=== PATIENT | female | born 1960 | race Caucasian/White ===

== ENCOUNTER 2017-08-31 17:31 | Emergency (ER) | payer MEDICAID, SELFPAY | END 2017-08-31 23:15 | disposition home or self-care (01) | PROVIDERS: Emergency Provider Emergency Medicine; Family Provider Internal Medicine Adolescent Medicine; Visit Provider Emergency Medicine | DX: K58.0 Irritable bowel syndrome with diarrhea (principal); M54.5 Low back pain; Z88.2 Allergy status to sulfonamides; Z88.8 Allergy status to other drugs, medicaments and biological substances; Z79.51 Long term (current) use of inhaled steroids; Z79.899 Other long term (current) drug therapy | CPT/HCPCS: 81001; 87086; 87088; 87186; 87507; 96372; 99284 ==

== ENCOUNTER → 2017-09-29 10:35 | Outpatient (POV) | payer MEDICAID, SELFPAY ==
[2017-09-29 10:51] LABS: Basophils % 0.8 % (0.1-2.0); Eosinophils # 0.2 K/mm3 (0.0-0.4); Eosinophils % 3.7 % (0.1-12.0); Hematocrit 43.1 % (37.0-47.0); Hemoglobin 13.4 g/dL (12.2-16.2); Lymphocytes # 1.5 K/mm3 (0.7-4.5); Lymphocytes % 27.9 K/mm3 (10-50); Mean Corpuscular HGB Conc 31.1 g/dL (31.8-35.4); Mean Corpuscular Hemoglobin 24.9 pg (27.0-31.2); Mean Corpuscular Volume 79.9 fl (81-99); Mean Platelet Volume 7.9 fl (7.4-10.4); Monocytes # 0.3 K/mm3 (0.1-1.0); Monocytes % 5.2 % (1.7-9.3); Neutrophils # 3.3 K/mm3 (1.8-7.8); Neutrophils % 62.4 % (37.0-80.0); Platelet Count 190 K/mm3 (142-424); Red Blood Count 5.39 M/mm3 (4.20-5.40); Red Cell Distribution Width 13.5 % (11.5-17.5); White Blood Count 5.3 K/mm3 (4.8-10.8)
[2017-09-29 11:47] LABS: Alanine Aminotransferase 23 U/L (12-78); Albumin Level 3.6 gm/dL (3.4-5.0); Albumin/Globulin Ratio 1.1 (1.1-1.8); Alkaline Phosphatase 88 U/L (46-116); Aspartate Amino Transferase 18 U/L (15-37); Bilirubin,Total 0.4 mg/dL (0.2-1.0); Blood Urea Nitrogen 23 mg/dL (7-18); Calcium 8.4 mg/dL (8.5-10.1); Carbon Dioxide 25 mmol/L (21.0-32.0); Chloride 108 mmol/L (98-107); Chol/HDL Ratio 4.4 (1-3.5); Cholesterol 204 mg/dL (140-200); Estimated Glomerular Filt Rate 126 ml/min (>60); GFR (African American) 153 ML/MIN (>60); Globulin 3.2 gm/dl (1.3-3.2); Glucose 109 mg/dL (74-106); HDL Cholesterol 46 mg/dL (29-89); LDL Cholesterol 141 mg/dL (0-130); Sodium 141 mmol/L (136-145); Thyroid Stimulating Hormone 0.75 uIU/ml (0.358-3.740); Total Protein,Serum 6.8 gm/dL (6.4-8.2); Triglycerides 84 mg/dL (30-200); VLDL Cholesterol 17 mg/dL (0-40)
[2017-09-29 14:38] VITALS: BP 117/86; PULSE 103; RESP 16; TEMP 36.7; O2SAT 96; BMI 24.5
--- NOTE | 2017-09-29 14:40 | P.CONS_ITS ---
[facility] Pain Management SOAP Note Subjective:: Patient is a pleasant 57-year-old white female who we are seeing for low back pain with lumbar radicular symptoms. At her last scheduled injection she had a UTI so we postpone her injection. She has been treated and it has now resolved. She presents to have her lumbar epidural steroid injection reschedule. She still has low back pain radiating down both legs. Most of the pain is in the back. Objective:: Alert and oriented ?3 in no acute distress. Patient does have an antalgic gait. She is tender over the lumbar spine. Motor strength of the lower extremities is 5/5. There is no gross sensory deficit. Assessment:: Degenerative disc disease of lumbar spine with lumbar radicular symptoms with previous compression fractures as kyphoplasty at T12. Plan:: We will seek approval and plan on lumbar epidural steroid injection at L4-L5.
[2017-09-30 13:37] LABS: Vitamin B12 667 pg/mL (232-1245)
== END ==
PROVIDERS: Family Provider Internal Medicine Adolescent Medicine; PCP Internal Medicine Adolescent Medicine; Visit Provider Anesthesiology
DX: M51.16 Intervertebral disc disorders with radiculopathy, lumbar region (principal)
CPT/HCPCS: 36415; 80053; 80061; 82607; 84443; 85025; 99212

== ENCOUNTER 2017-10-17 19:00 | Emergency (ER) | payer MEDICAID, SELFPAY ==
[2017-10-17 19:14] VITALS: BP 127/79; PULSE 95; RESP 18; TEMP 36.8; O2SAT 97; BMI 24.5
[2017-10-17 19:56] LABS: Microscopic, Urine URINE MICROSCOPIC (MICROSCOPIC)
[2017-10-17 19:58] LABS: Appearance,Urine CLEAR (Clear); Bilirubin,Urine Negative (Negative); Blood, Urine TRACE-L (Negative); Color,Urine YELLOW (Yellow); Glucose,Urine (UA) Negative (Negative); Ketones,Urine Negative (Negative); Leukocyte Esterase,Urine Negative (Negative); Nitrate,Urine Negative (Negative); PH,Urine 5.5 (5.0-8.5); Protein,Urine Negative (Negative); Specific Gravity, Urine >= 1.030 (1.005-1.030); Urobilinogen,Urine 0.2 EU/dl (0.2)
[2017-10-17 20:01] LABS: Amorphous Sediment,Urine Trace /lpf
[2017-10-17 20:08] LABS: Basophils % 0.5 % (0.1-2.0); Eosinophils # 0.2 K/mm3 (0.0-0.4); Eosinophils % 3.1 % (0.1-12.0); Hematocrit 43.2 % (37.0-47.0); Hemoglobin 13.5 g/dL (12.2-16.2); Lymphocytes # 1.8 K/mm3 (0.7-4.5); Lymphocytes % 31.3 K/mm3 (10-50); Mean Corpuscular HGB Conc 31.4 g/dL (31.8-35.4); Mean Corpuscular Hemoglobin 25.4 pg (27.0-31.2); Mean Corpuscular Volume 80.9 fl (81-99); Mean Platelet Volume 8.2 fl (7.4-10.4); Monocytes # 0.4 K/mm3 (0.1-1.0); Monocytes % 6.2 % (1.7-9.3); Neutrophils # 3.4 K/mm3 (1.8-7.8); Neutrophils % 58.9 % (37.0-80.0); Platelet Count 190 K/mm3 (142-424); Red Blood Count 5.33 M/mm3 (4.20-5.40); Red Cell Distribution Width 13.5 % (11.5-17.5); White Blood Count 5.7 K/mm3 (4.8-10.8)
[2017-10-17 20:20] LABS: Alanine Aminotransferase 27 U/L (12-78); Albumin Level 3.7 gm/dL (3.4-5.0); Albumin/Globulin Ratio 0.9 (1.1-1.8); Alkaline Phosphatase 99 U/L (46-116); Anion Gap 13.2 mEq/L (5-15); Aspartate Amino Transferase 15 U/L (15-37); Bilirubin,Total 0.4 mg/dL (0.2-1.0); Blood Urea Nitrogen 17 mg/dL (7-18); Calcium 8.6 mg/dL (8.5-10.1); Carbon Dioxide 27 mmol/L (21.0-32.0); Chloride 109 mmol/L (98-107); Creatinine Clearance Estimated 112 mL/min (0-300); Creatinine,Serum 0.59 mg/dL (0.55-1.02); Estimated Glomerular Filt Rate 104 ml/min (>60); GFR (African American) 126 ML/MIN (>60); Globulin 3.9 gm/dl (1.3-3.2); Glucose 99 mg/dL (74-106); Potassium 4.2 mmoL/L (3.5-5.1); Sodium 145 mmol/L (136-145); Total Protein,Serum 7.6 gm/dL (6.4-8.2)
--- NOTE | 2017-10-17 20:20 | HMH.EDNVD ---
ED Disposition Clinical Impression: Abdominal pain Qualifiers: Abdominal location: unspecified location Qualified Code(s): R10.9 - Unspecified abdominal pain Disposition: Home, Self-Care Condition on Discharge: Good Instructions: DI for Acute Abdomen Referrals: Luis Henderson MD [Primary Care Provider] - - Critical Care Critical Care Time: No Attestation: On , the high probability of a clinically significant, sudden or life threatening deterioration of the following system(s) required my full and direct attention, intervention and personal management. The time I documented below is in addition to time spent performing reported procedures but includes the following listed in this critical care notation. Medical Decision Making - Medical Records Medical records reviewed: Yes: I reviewed the patient's medical records. Vital Signs: 10/17/17 19:14 Temperature 98.2 F Temperature Source Oral Pulse Rate [Right Radial] 95 H Respiratory Rate 18 Blood Pressure [Right Arm] 127/79 Blood Pressure Mean [Right Arm] 95 Blood Pressure Source [Right Arm] Automatic Cuff Blood Pressure Position [Right Arm] Sitting 02 Sat by Pulse Oximetry 97 Oxygen Delivery Method Room Air - Lab Data Lab results reviewed: Yes: I reviewed the patient's lab results. Lab Results 10/17/17 19:50: Urine Color Yellow, Urine Appearance Clear, Urine pH 5.5, Ur Specific [place] >= 1.030, Urine Protein Negative, Urine Glucose (UA) Negative, Urine Ketones Negative, Urine Blood Trace-l, Urine Nitrate Negative, Urine Bilirubin Negative, Urine Urobilinogen 0.2, Ur Leukocyte Esterase Negative, Urine RBC 3-5, Urine WBC 3-5, Ur Squamous Epith Cells 3-5, Amorphous Sediment Trace 10/17/17 19:50: WBC 5.7, RBC 5.33, Hgb 13.5, Hct 43.2, MCV 80.9 L, MCH 25.4 L, MCHC 31.4 L, RDW 13.5, Plt Count 190, MPV 8.2, Neut % (Auto) 58.9, Lymph % (Auto) 31.3, [place] % (Auto) 6.2, Eos % (Auto) 3.1, Baso % (Auto) 0.5, Neut # (Auto) 3.4, Lymph # (Auto) 1.8, [place] # (Auto) 0.4, Eos # (Auto) 0.2, Baso # (Auto) 0.0 10/17/17 19:50: Sodium 145, Potassium 4.2, Chloride 109 H, Carbon Dioxide 27, Anion Gap 13.2, BUN 17, Creatinine 0.59, Estimated Creat Clear 112, Estimated GFR 104, Est GFR ( Amer) 126, Glucose 99, Calcium 8.6, Total Bilirubin 0.4, AST 15, ALT 27, Alkaline Phosphatase 99, Total Protein 7.6, Albumin 3.7, Globulin 3.9 H, Albumin/Globulin Ratio 0.9 L Result diagrams: 10/17/17 19:50 10/17/17 19:50 - Claus Inquiry Pt receiving controlled substance: No Nausea/Vomiting/Diarrhea HPI - General Chief complaint: Abdominal Pain Stated complaint: abd pain,back,chills Time Seen by Provider: 10/17/17 20:21 Mode of Arrival: Ambulatory Source of Information: Patient, Spouse, Medical Record Limitations: Physical Limitations Description of Symptoms (Recalled from ER Triage Doc. by RN): Pt reports for several days she has cetral abdominal pain. - History of Present Illness HPI Narrative: lower abd pain over the last 2 days with loose stool complaint: diarrhea, abdominal pain Onset (ago): day(s) Description of Vomiting: watery Associated Abdominal Pain: Yes Location of pain: periumbilical Severity: moderate - Related Data Home Medications Medication Instructions Recorded Confirmed alendronate 10 mg tablet 10 mg PO ONCE 09/13/17 10/17/17 baclofen 20 mg tablet 20 mg PO Q8H 09/13/17 10/17/17 bethanechol chloride 10 mg tablet 10 mg PO ONCE 09/13/17 10/17/17 calcium carbonate 200 mg calcium 200 mg PO TID tab 09/13/17 10/17/17 (500 mg) chewable tablet cholecalciferol (vitamin D3) 1,000 1,000 unit PO ONCE 09/13/17 10/17/17 unit capsule clotrimazole-betamethasone 1 1 applic TOPICAL BID 09/13/17 10/17/17 %-0.05 % topical cream cranberry 400 mg capsule 400 mg PO ONCE 09/13/17 10/17/17 cyanocobalamin (vit B-12) 1,000 1,000 mcg PO QDAY 09/13/17 10/17/17 mcg capsule diazepam 5 mg tablet 5 mg PO ONCE 09/13/17 10/17/17 escitalopram 20 mg tablet 10 mg PO QDA
[2017-10-17 21:26] VITALS: BP 130/70; PULSE 89; RESP 18; TEMP 36.7; O2SAT 98
== END 2017-10-17 21:26 | disposition home or self-care (01) ==
PROVIDERS: Emergency Provider Emergency Medicine; Family Provider Internal Medicine Adolescent Medicine; PCP Internal Medicine Adolescent Medicine
DX: R10.825 Periumbilic rebound abdominal tenderness (principal); Z79.899 Other long term (current) drug therapy
CPT/HCPCS: 80053; 81001; 85025; 99282

== ENCOUNTER → 2017-10-25 09:51 | Outpatient (CLI) | payer MEDICAID, SELFPAY ==
--- NOTE | 2017-10-25 09:56 | XR_ITS ---
XR acute abdomen series COMPARISON: CT scan abdomen pelvis 05/31/2017 HISTORY: Lower abdominal pain TECHNIQUE: PA chest, KUB and upright abdomen FINDINGS: The lung loya are well expanded and appear clear of infiltrate. Cardiac size is normal and the vascularity is normal. There is mild dextroscoliotic curvature of the thoracolumbar junction. There is an old compression fracture of T12 with a vertebroplasty present.. There are multilevel degenerative changes of the lumbar spine. There is slight motion artifact on the upright abdominal film. There is minimal gas in the ascending colon. There are a few mildly dilated loops of small bowel with scattered short air-fluid levels noted. Is no free air in the no abnormal soft tissue shadows. IMPRESSION: 1 nonacute chest findings. 2. Mildly abnormal nonspecific bowel gas pattern possibly secondary to mild gastroenteritis
== END ==
PROVIDERS: PCP Internal Medicine Adolescent Medicine; Visit Provider Internal Medicine Adolescent Medicine
DX: R10.32 Left lower quadrant pain (principal); R10.31 Right lower quadrant pain
CPT/HCPCS: 74021

== ENCOUNTER → 2017-10-31 14:00 | Day surgery (SDC) | payer MEDICAID, SELFPAY ==
[2017-10-31 14:37] VITALS: BP 109/75; PULSE 99; RESP 20; TEMP 36.2; O2SAT 96; BMI 23.6
[2017-10-31 15:03] VITALS: BP 155/89; PULSE 69; RESP 18
[2017-10-31 15:04] VITALS: BP 144/93; PULSE 99; RESP 18
--- NOTE | 2017-10-31 15:09 | P.PCN_ITS ---
- Procedure Date: 10/31/17 Time: 15:07 Anesthesiologist:: Aneesh Robledo MD Complications:: None Pre-procedure Diagnosis:: Degenerative disc disease of lumbar spine with lumbar radiculopathy symptoms with previous compression fracture at T12 status post kyphoplasty Post-procedure Diagnosis:: Same Indications for Procedure:: Patient is a pleasant 57-year-old white female who we are seeing for low back pain with lumbar radicular symptoms. She has had some increasing back pain with radiation down both legs. We will do a lumbar epidural steroid injection today to see if this will give her some benefit. Procedure Details:: Lumbar epidural steroid injection under fluoroscopy Informed consent was obtained and the risk and benefits of the procedure was explained to the patient. The patient was taken to the procedure room. The patient was placed prone on the procedure table. The patient was prepped and draped in sterile fashion. C-arm fluoroscopy was used to view the lumbar spine. Skin and subcutaneous tissues were anesthetized using lidocaine. I placed an 18-gauge epidural needle and advanced into the L4-L5 interspace using fluoroscopic guidance and [id number] to air. After confirmation of needle placement in the epidural space with dye I injected 2 mL of lidocaine 1.5 % with Depo-Medrol 80 mg. Patient tolerated the procedure well with no complications. Plan and Disposition:: We will follow-up with her in 2 weeks. We will reevaluate her symptoms at that time
[2017-10-31 15:13] VITALS: BP 113/84; PULSE 97; RESP 18; O2SAT 97
== END ==
PROVIDERS: Family Provider Internal Medicine Adolescent Medicine; PCP Internal Medicine Adolescent Medicine; Visit Provider Anesthesiology
DX: M51.16 Intervertebral disc disorders with radiculopathy, lumbar region (principal); Z87.311 Personal history of (healed) other pathological fracture
CPT/HCPCS: 62323; J1040; Q9966

== ENCOUNTER → 2017-11-18 13:06 | Outpatient (POV) | payer MEDICAID, SELFPAY ==
[2017-11-18 13:25] VITALS: BP 136/89; PULSE 99; RESP 20; O2SAT 96; BMI 24.2
--- NOTE | 2017-11-18 14:08 | HMH.PAINSOAP ---
[facility] Pain Management SOAP Note Subjective:: Patient is a pleasant 57-year-old white female who presents today after a lumbar epidural steroid injection. Patient has had a kyphoplasty in the past. Patient rates her pain a 2 out of 10 today. She states that her back pain has pretty much been alleviated. Patient is also taking tramadol 50 mg 1 p.o. twice daily. States the medicine helps but does not last long enough. Patient denies any side effects from the medication. Patient states that it does help with 70% one taken. Patient is also having increased knee pain. Patient is interested in having injections in the future. Patient is currently getting over bronchitis. ROS General: no recent weight change, no fever, no sleep disturbances Respiratory: Cough Cardiovascular/Peripheral Vascular: No chest pain, No palpitations, no edema, no shortness of breath. Gastrointestinal: no new onset incontinence, normal bowel movements reported Genitourinary: no new onset incontinence Musculoskeletal: Knee pain, back pain Psychiatric: normal mood/ affect, Neurological: [denies weakness in extremities], [denies balance issues] Objective:: Physical Exam General: Alert and oriented x3, no acute distress, pleasant and cooperative, [on room air] Lungs: Resps E/U, Symmetrical chest expansion, Eyes: PERRL Musculoskeletal: Flexion and extension of lumbar spine somewhat guarded secondary to pain, deep tendon reflexes normal, strength in upper and lower extremities [5/5], [abnormal gait noted] Neurological: speech clear, administrative associate equal, no gross sensory deficits Assessment:: Degenerative disc disease of the lumbar spine, lumbar radiculopathy, status post T12 kyphoplasty, left knee osteoarthritis Plan:: We will follow-up with this patient as needed. Patient is interested in potentially having left knee injections in the future. We will also refill her tramadol 50 mg and we will increase it to 3 times daily. Patient's ROWENA #[id number] reviewed and appropriate. Follow-up with this patient as needed. This note was dictated using voice-recognition software and may contain errors or omissions
--- NOTE | 2017-11-18 14:13 | P.CONS_ITS ---
[facility] Pain Management SOAP Note Subjective:: Patient is a pleasant 57-year-old white female who presents today after a lumbar epidural steroid injection. Patient has had a kyphoplasty in the past. Patient rates her pain a 2 out of 10 today. She states that her back pain has pretty much been alleviated. Patient is also taking tramadol 50 mg 1 p.o. twice daily. States the medicine helps but does not last long enough. Patient denies any side effects from the medication. Patient states that it does help with 70% one taken. Patient is also having increased knee pain. Patient is interested in having injections in the future. Patient is currently getting over bronchitis. ROS General: no recent weight change, no fever, no sleep disturbances Respiratory: Cough Cardiovascular/Peripheral Vascular: No chest pain, No palpitations, no edema, no shortness of breath. Gastrointestinal: no new onset incontinence, normal bowel movements reported Genitourinary: no new onset incontinence Musculoskeletal: Knee pain, back pain Psychiatric: normal mood/ affect, Neurological: [denies weakness in extremities], [denies balance issues] Objective:: Physical Exam General: Alert and oriented x3, no acute distress, pleasant and cooperative, [ on room air] Lungs: Resps E/U, Symmetrical chest expansion, Eyes: PERRL Musculoskeletal: Flexion and extension of lumbar spine somewhat guarded secondary to pain, deep tendon reflexes normal, strength in upper and lower extremities [5/5], [abnormal gait noted] Neurological: speech clear, 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 Patient is interested in potentially having left knee injections in the future. We will also refill her tramadol 50 mg and we will increase it to 3 times daily. Patient's ROWENA # [id number] reviewed and appropriate. Follow-up with this patient as needed. This note was dictated using voice-recognition software and may contain errors or omissions
--- NOTE | 2017-11-20 14:06 | PC.PHONENOTE ---
11/18/17-called in Rx forTramadol 50mg TID with 2 refills to [facility] in [place]
== END ==
PROVIDERS: Family Provider Internal Medicine Adolescent Medicine; PCP Internal Medicine Adolescent Medicine; Visit Provider Clinical Nurse Specialist Family Health
DX: M54.16 Radiculopathy, lumbar region (principal); M17.12 Unilateral primary osteoarthritis, left knee
CPT/HCPCS: 99212

== ENCOUNTER 2017-11-25 18:22 | Emergency (ER) | payer MEDICAID, SELFPAY ==
[2017-11-25 19:38] VITALS: BP 140/94; PULSE 102; RESP 20; TEMP 37.4; O2SAT 96; BMI 24.2
[2017-11-25 20:02] LABS: Apearance,Urine Clear (Clear); Bilirubin,Urine Negative (Negative); Blood, Urine Negative (Negative); Color,Urine Yellow (Yellow); Glucose,Urine (UA) Negative (Negative); Ketones,Urine Negative (Negative); PH,Urine 5.5 (5.0-8.5); Protein,Urine Negative (Negative); Specific Gravity, Urine 1.025 (1.005-1.030)
[2017-11-25 20:03] LABS: UTC Leukocyte Esterase,Urine Trace (Negative); UTC Nitrate,Urine Negative (Negative); Urobilinogen,Urine 0.2 EU/dl (0.2)
--- NOTE | 2017-11-25 20:37 | HMH.EDUTC ---
[facility] [place]: Intermittent self-catheterization of bladder, Viral illness Disposition: Home, Self-Care Condition on Discharge: Good Instructions: DI for Viral Syndrome, Urine Culture Additional Instructions: * No sign of bacterial infection. You seem to be improving but takes time to completely resolve. * Monitor Temp. Follow up if fever develops * Encourage fluids, water, gatorade, powerade, pedialyte if infant/toddler/child * sleep elevated * humidifier/vaporizer * heating pad to left neck as needed * Urine sent for urine culture. Follow up with Dr. Henderson on Friday. Report in [facility] and need to follow up on urine culture results. If bacteria present, will need antibiotic. * Seek treatment immediately for new or worsening symptoms Referrals: Luis Henderson MD [Primary Care Provider] - (Call tomorrow. Schedule follow up for Friday to review Urine culture results. Return sooner for new or worsening symptoms) Time of Disposition: 20:53 Medical Decision Making - Claus Inquiry Pt receiving controlled substance: No Vital Signs: 11/25/17 19:38 Temperature 99.4 F Temperature Source Oral Pulse Rate [Right Radial] 102 H Respiratory Rate 20 Blood Pressure [Right Arm] 140/94 Blood Pressure Mean [Right Arm] 109 02 Sat by Pulse Oximetry 96 Oxygen Delivery Method Room Air - Lab Data Lab results reviewed: Yes: I reviewed the patient's lab results. Lab Results 11/25/17 18:48: Urine Color Yellow, Urine Appearance Clear, Urine pH 5.5, Ur Specific [place] 1.025, Urine Protein Negative, Urine Glucose (UA) Negative, Urine Ketones Negative, Urine Blood Negative, Urine Nitrate Negative, Urine Bilirubin Negative, Urine Urobilinogen 0.2, Ur Leukocyte Esterase Trace Orders (Tests/Meds): ORDERS Category Date Time Status Urine Culture Stat Micro 11/25/17 20:05 [place] [facility] [place] - General Stated complaint: Pain in left side of neck/Possible UTI Time Seen by Provider: 11/25/17 20:38 Mode of Arrival: Family Vehicle Source of Information: Patient Limitations: No Limitations Description of Symptoms (Recalled from Triage Doc. by RN): PT C/O POSSIBLE UTI AND FLU LIKE SYMPTOMS. HEENT Symptoms (Recalled from RN notes): Yes (FLU LIKE) Resp Symptoms (Recalled from RN notes): Yes (FLU LIKE) Skin Symptoms (Recalled from RN notes): No MS Symptoms (Recalled from RN notes): No Functional Status (Recalled from RN notes): NA - History of Present Illness Provider Complaint: c/o having had bronchitis. Finished medications but still has rhinorrhea and left neck gland tender at times. Not consistently. Neck gland noticeable with palpation. No fevers or aches any longer. Cough improved. While here, wants to rule out UTI because I get them all the time . Denies symptoms. Hx of CP requiring I/O cath BID. - Related Data Home Medications Medication Instructions Recorded Confirmed alendronate 10 mg tablet 10 mg PO ONCE 09/13/17 10/17/17 baclofen 20 mg tablet 20 mg PO Q8H 09/13/17 10/17/17 bethanechol chloride 10 mg tablet 10 mg PO ONCE 09/13/17 10/17/17 calcium carbonate 200 mg calcium 200 mg PO TID tab 09/13/17 10/17/17 (500 mg) chewable tablet cholecalciferol (vitamin D3) 1,000 1,000 unit PO ONCE 09/13/17 10/17/17 unit capsule clotrimazole-betamethasone 1 1 applic TOPICAL BID 09/13/17 10/17/17 %-0.05 % topical cream cranberry 400 mg capsule 400 mg PO ONCE 09/13/17 10/17/17 cyanocobalamin (vit B-12) 1,000 1,000 mcg PO QDAY 09/13/17 10/17/17 mcg capsule diazepam 5 mg tablet 5 mg PO ONCE 09/13/17 10/17/17 escitalopram 20 mg tablet 10 mg PO QDAY 09/13/17 10/17/17 estradiol 0.0375 mg/24 hr 1 patch TRANSDERMA ONCE 09/13/17 10/17/17 semiweekly transdermal patch fluticasone 50 mcg/actuation nasal 50 mcg INTRANASAL ONCE 09/13/17 10/17/17 spray,suspension folic acid 1 mg tablet 1 mg PO QDAY 09/13/17 10/17/17 gabapentin 600 mg tablet 600 mg PO TID 09/13/17 10/17/17 hydroxychloroquine 200 m
--- NOTE | 2017-11-25 20:42 | ED_ITS ---
[facility] [place] Clinical Impression: Intermittent self-catheterization of bladder, Viral illness Disposition: Home, Self-Care Condition on Discharge: Good Instructions: DI for Viral Syndrome, Urine Culture Additional Instructions: * No sign of bacterial infection. You seem to be improving but takes time to completely resolve. * Monitor Temp. Follow up if fever develops * Encourage fluids, water, gatorade, powerade, pedialyte if infant/toddler/ child * sleep elevated * humidifier/vaporizer * heating pad to left neck as needed * Urine sent for urine culture. Follow up with Dr. Henderson on Friday. Report in [facility] and need to follow up on urine culture results. If bacteria present, will need antibiotic. * Seek treatment immediately for new or worsening symptoms Referrals: Luis Henderson MD [Primary Care Provider] - (Call tomorrow. Schedule follow up for Friday to review Urine culture results. Return sooner for new or worsening symptoms) Time of Disposition: 20:53 Medical Decision Making - Claus Inquiry Pt receiving controlled substance: No Vital Signs: 11/25/17 19:38 Temperature 99.4 F Temperature Source Oral Pulse Rate [Right Radial] 102 H Respiratory Rate 20 Blood Pressure [Right Arm] 140/94 Blood Pressure Mean [Right Arm] 109 02 Sat by Pulse Oximetry 96 Oxygen Delivery Method Room Air - Lab Data Lab results reviewed: Yes: I reviewed the patient's lab results. Lab Results 11/25/17 18:48: Urine Color Yellow, Urine Appearance Clear, Urine pH 5.5, Ur Specific [place] 1.025, Urine Protein Negative, Urine Glucose (UA) Negative, Urine Ketones Negative, Urine Blood Negative, Urine Nitrate Negative, Urine Bilirubin Negative, Urine Urobilinogen 0.2, Ur Leukocyte Esterase Trace Orders (Tests/Meds): ORDERS Category Date Time Status Urine Culture Stat Micro 11/25/17 20:05 Received [facility] [place]PI - General Stated complaint: Pain in left side of neck/Possible UTI Time Seen by Provider: 11/25/17 20:38 Mode of Arrival: Family Vehicle Source of Information: Patient Limitations: No Limitations Description of Symptoms (Recalled from Triage Doc. by RN): PT C/O POSSIBLE UTI AND FLU LIKE SYMPTOMS. HEENT Symptoms (Recalled from RN notes): Yes (FLU LIKE) Resp Symptoms (Recalled from RN notes): Yes (FLU LIKE) Skin Symptoms (Recalled from RN notes): No MS Symptoms (Recalled from RN notes): No Functional Status (Recalled from RN notes): NA - History of Present Illness Provider Complaint: c/o having had bronchitis. Finished medications but still has rhinorrhea and left neck gland tender at times. Not consistently. Neck gland noticeable with palpation. No fevers or aches any longer. Cough improved. While here, wants to rule out UTI because I get them all the time . Denies symptoms. Hx of CP requiring I/O cath BID. - Related Data Home Medications Medication Instructions Recorded Confirmed alendronate 10 mg tablet 10 mg PO ONCE 09/13/17 10/17/17 baclofen 20 mg tablet 20 mg PO Q8H 09/13/17 10/17/17 bethanechol chloride 10 mg tablet 10 mg PO ONCE 09/13/17 10/17/17 calcium carbonate 200 mg calcium 200 mg PO TID tab 09/13/17 10/17/17 (500 mg) chewable tablet cholecalciferol (vitamin D3) 1,000 1,000 unit PO ONCE 09/13/17 10/17/17 unit capsule clotrimazole-betamethasone 1 1 applic TOPICAL BID 09/13/17 10/17/17 %-0.05 % topical cream
[2017-11-25 20:54] VITALS: BP 132/69; PULSE 95; RESP 18; TEMP 37.3; O2SAT 97
[2017-11-28 10:35] LABS: UTC Influenza A Antigen Negative (Negative); UTC Influenza B Antigen Negative (Negative)
[2017-11-28 10:53] LABS: Apearance,Urine Clear (Clear); Color,Urine Yellow (Yellow); PH,Urine 5.5 (5.0-8.5)
[2017-11-28 10:54] LABS: Blood, Urine Negative (Negative); Glucose,Urine (UA) Negative (Negative); Ketones,Urine Negative (Negative); Protein,Urine Negative (Negative); Specific Gravity, Urine 1.025 (1.005-1.030)
[2017-11-28 10:55] LABS: Bilirubin,Urine Negative (Negative); UTC Leukocyte Esterase,Urine 1+ (Negative); UTC Nitrate,Urine Negative (Negative); Urobilinogen,Urine 0.2 EU/dl (0.2)
== END 2017-11-25 20:54 | disposition home or self-care (01) ==
PROVIDERS: Emergency Provider Nurse Practitioner Family; Family Provider Internal Medicine Adolescent Medicine; PCP Internal Medicine Adolescent Medicine
DX: B34.9 Viral infection, unspecified (principal); Z78.9 Other specified health status; K21.9 Gastro-esophageal reflux disease without esophagitis; Z79.899 Other long term (current) drug therapy; F32.9 Major depressive disorder, single episode, unspecified; Z88.2 Allergy status to sulfonamides; Z88.8 Allergy status to other drugs, medicaments and biological substances
CPT/HCPCS: 81003; 87086; 87804; 99202

== ENCOUNTER → 2017-12-17 16:03 | Outpatient (REF) | payer MEDICAID, SELFPAY ==
[2017-12-17 16:07] LABS: Adenovirus F 40/41, stool Not Detected (NotDetected); Astrovirus Not Detected (NotDetected); Campylobacter Not Detected (NotDetected); Clostridium Difficile A/B, PCR Not Detected (NotDetected); Cryptosporidium Not Detected (NotDetected); Cyclospora Cayetanesis Not Detected (NotDetected); Entamoeba histolytica Not Detected (NotDetected); Enteroaggregative E coli Not Detected (NotDetected); Enteropathogenic E coli Not Detected (NotDetected); Enterotoxigenic E coli Not Detected (NotDetected); Giardia lamblia Not Detected (NotDetected); Norovirus Not Detected (NotDetected); Plesimonas Shigalloides, PCR Not Detected (NotDetected); Rotavirus A Not Detected (NotDetected); Salmonella, PCR Not Detected (NotDetected); Sapovirus Not Detected (NotDetected); Shiga-like toxin E coli Not Detected (NotDetected); Shigella Enterovasive E coli Not Detected (NotDetected); Vibrio Cholerae Not Detected (NotDetected); Vibrio, PCR Not Detected (NotDetected); Yersinia Entercolitica, PCR Not Detected (NotDetected)
== END ==
LOC: LAB 16:03
PROVIDERS: Visit Provider Emergency Medicine
DX: R19.7 Diarrhea, unspecified (principal)
CPT/HCPCS: 87507

== ENCOUNTER 2017-12-19 14:00 | Outpatient (RCR) | payer MEDICAID, SELFPAY ==
--- NOTE | 2017-12-01 10:02 | HMH.PTOPEV ---
Rehab Outpatient Evaluation Rehab OP Evaluation Start: 12/01/17 09:46 Freq: Status: Active Protocol: Document 12/01/17 09:47 JULIA (Rec: 12/01/17 10:01 JULIA [id number]) Electronically Signed By Aj Aguilar PT 12/01/17 09:47 Outpatient Therapy Subjective History Subjective History THis is the initial Physical THerapy evaluation for Meme Carey. Pt is a 57 y/o female referred to PT for c/o B hip L>R. Pt reports pain in B SIJ and L greater trochanter. Pt also reports L bicep pain. Pt reports pain for long time 2nd to altered gait from CP. Chief Complaint Pain Spasms Stiff Symptom Type Ache Throb Sharp Symptoms Relieved By Nothing Symptoms Aggravated By Standing Physical Activity Walking Current Functional Limitations Housework Standing Recreation Activity Walking Stairs Symptom Description Constant but Variable Level of pain today (0-10) 5 Pain scale - at its best (0-10) 3 Pain scale - at its worst (0-10) 8 Lumbopelvic Eval Assistive device Assistive Devices None / NA Gait Observation General Gait Pattern Observation Ataxic Gait Shuffling Step Palapation tenderness bilateral thoracic spinal tenderness No lumbar spinal tenderness Yes paraspinal tenderness Yes buttock tenderness Yes Lumbar/Sacral Palpation Findings Tenderness Lumbar/Sacral Palpation Overall Comment TTP 3/4 B SIJ Range of Motion Lumbar Spine ROM Limitations Pain Lumbar Spine ROM Reason Not Measured Within Functional Limits Manual Muscle Test Bilateral Knee Extension Strength Grade 4 Good Knee Flexion Strength Grade 4 Good Hip Abduction Strength Grade 4 Good Hip Adduction Strength Grade 4 Good Special Tests Lumbar Spine Screen Positive Sacroiliac Joint Compression Test Positive Left Positive Right Sacroiliac Joint Distraction Test Positive Left Positive Right Hip/Knee Eval Palpation Tenderness left Hip Palpation Findings Tenderness Outpatient Therapy Assessment Impairments Problems/Impairmments Palpati
== END 2017-12-19 14:01 | disposition home or self-care (01) ==
LOC: PT 14:00
PROVIDERS: Family Provider Internal Medicine Adolescent Medicine; PCP Internal Medicine Adolescent Medicine; Visit Provider Internal Medicine Adolescent Medicine
DX: G80.9 Cerebral palsy, unspecified (principal); R26.9 Unspecified abnormalities of gait and mobility; M62.81 Muscle weakness (generalized)
CPT/HCPCS: 97010; 97033; 97035; 97110

== ENCOUNTER → 2018-01-08 11:03 | Outpatient (CLI) | payer MEDICAID, SELFPAY ==
[2018-01-08 11:31] LABS: Basophils % 0.7 % (0.1-2.0); Eosinophils # 0.1 K/mm3 (0.0-0.4); Eosinophils % 2.5 % (0.1-12.0); Hematocrit 41.4 % (37.0-47.0); Hemoglobin 13.1 g/dL (12.2-16.2); Lymphocytes # 1.5 K/mm3 (0.7-4.5); Lymphocytes % 27.3 K/mm3 (10-50); Mean Corpuscular HGB Conc 31.7 g/dL (31.8-35.4); Mean Corpuscular Hemoglobin 25.3 pg (27.0-31.2); Mean Platelet Volume 7.7 fl (7.4-10.4); Monocytes # 0.3 K/mm3 (0.1-1.0); Monocytes % 6.3 % (1.7-9.3); Neutrophils # 3.4 K/mm3 (1.8-7.8); Neutrophils % 63.2 % (37.0-80.0); Platelet Count 179 K/mm3 (142-424); Red Blood Count 5.17 M/mm3 (4.20-5.40); Red Cell Distribution Width 14.6 % (11.5-17.5); White Blood Count 5.3 K/mm3 (4.8-10.8)
[2018-01-08 12:33] LABS: Alanine Aminotransferase 22 U/L (12-78); Albumin Level 3.6 gm/dL (3.4-5.0); Albumin/Globulin Ratio 1.1 (1.1-1.8); Alkaline Phosphatase 85 U/L (46-116); Anion Gap 12.8 mEq/L (5-15); Aspartate Amino Transferase 17 U/L (15-37); Bilirubin,Total 0.3 mg/dL (0.2-1.0); Blood Urea Nitrogen 18 mg/dL (7-18); Calcium 9.3 mg/dL (8.5-10.1); Carbon Dioxide 28 mmol/L (21.0-32.0); Chloride 108 mmol/L (98-107); Creatinine,Serum 0.58 mg/dL (0.55-1.02); Estimated Glomerular Filt Rate 106 ml/min (>60); GFR (African American) 129 ML/MIN (>60); Globulin 3.3 gm/dl (1.3-3.2); Glucose 106 mg/dL (74-106); Potassium 4.8 mmoL/L (3.5-5.1); Sodium 144 mmol/L (136-145); Total Protein,Serum 6.9 gm/dL (6.4-8.2)
== END ==
PROVIDERS: Visit Provider Surgery
DX: Z01.818 Encounter for other preprocedural examination (principal); R10.13 Epigastric pain; R19.8 Other specified symptoms and signs involving the digestive system and abdomen
CPT/HCPCS: 36415; 80053; 85025; 93005

== ENCOUNTER → 2018-02-18 09:39 | Outpatient (CLI) | payer MEDICAID, SELFPAY ==
--- NOTE | 2018-02-18 09:40 | NM_ITS ---
NM gastric emptying study CLINICAL INDICATION: ITS.REASON: Epigastric pain,abdominal fullness ORDERING PHYSICIAN: Vivek Velazquez MD PATIENT AGE: 57 years Comparison: None DOSE: 0.49 mCi technetium sulfur colloid mixed with meal FINDINGS: Time activity curve is generated. One half emptying time is normal at 69 minutes. 71% of gastric contents had emptied at 80 minutes. Images show no obvious reflux. IMPRESSION: Normal gastric emptying time
== END ==
PROVIDERS: Family Provider Internal Medicine Adolescent Medicine; PCP Internal Medicine Adolescent Medicine; Visit Provider Surgery
DX: R10.13 Epigastric pain (principal); R14.0 Abdominal distension (gaseous)
CPT/HCPCS: 78264; A9541

== ENCOUNTER → 2018-02-23 10:50 | Outpatient (CLI) | payer MEDICAID, SELFPAY ==
--- NOTE | 2018-02-23 10:52 | FL_ITS ---
FL upper GI small bowel HISTORY: ITS.REASON: epigastric pain,abdominal fullness ORDERING PHYSICIAN: Vivek Velazquez MD PATIENT AGE: 57 years Comparison: None FINDINGS: Upper GI performed with air contrast technique. Interviewing Clerk exam shows prior kyphoplasty at T12. The esophagus, stomach, and duodenum have an unremarkable appearance. There is no evidence of hiatal hernia. No ulcer or mass evident. No mucosal abnormalities apparent. There is normal peristalsis. The duodenal C-loop is nondisplaced. The small bowel has an unremarkable appearance. No evidence of intestinal obstruction, masses, mucosal thickening FLUOROSCOPY TIME : 45 seconds. IMPRESSION: Negative upper GI and negative small bowel follow-through
== END ==
PROVIDERS: Family Provider Internal Medicine Adolescent Medicine; PCP Internal Medicine Adolescent Medicine; Visit Provider Surgery
DX: R13.10 Dysphagia, unspecified (principal); K31.84 Gastroparesis
CPT/HCPCS: 74245

== ENCOUNTER → 2018-03-31 10:43 | Outpatient (POV) | payer MEDICAID, SELFPAY ==
[2018-03-31 11:29] VITALS: BP 107/47; PULSE 83; RESP 18; O2SAT 98; BMI 23.7
--- NOTE | 2018-03-31 11:43 | P.CONS_ITS ---
[facility] Pain Management SOAP Note Subjective:: Patient is a pleasant 57-year-old white female who presents today for increased pain in her left lower buttock. Patient rates her pain an 8 out of 10 today. Patient states that this began several days ago. Patient states she started on meloxicam however that has not helped with her pain. Patient is wanting an injection. Patient has done well with injection therapy in the past. Patient was on tramadol however she stated that her primary care physician took her off of this. ROS General: no recent weight change, no fever, no sleep disturbances Cardiovascular/Peripheral Vascular: No chest pain, No palpitations, no edema, no shortness of breath. Gastrointestinal: no new onset incontinence, normal bowel movements reported Genitourinary: no new onset incontinence Musculoskeletal: Left piriformis pain Psychiatric: normal mood/ affect, Neurological: [denies weakness in extremities], [denies balance issues] Objective:: Physical Exam General: Alert and oriented x3, no acute distress, pleasant and cooperative, [ on room air] Lungs: Resps E/U, Symmetrical chest expansion, Eyes: PERRL Musculoskeletal: Flexion and extension of lumbar spine somewhat guarded secondary to pain, deep tendon reflexes normal, strength in upper and lower extremities [5/5], [abnormal gait noted] extreme point tenderness over left piriformis muscle Neurological: speech clear, retort operator equal, no gross sensory deficits Assessment:: Piriformis syndrome Plan:: We will schedule left piriformis injection for the patient as soon as possible. Patient not taking tramadol anymore because she states that her primary care physician took her off of this. Patient has had injections in the past with good relief. I will follow-up with the patient after her injection. This note was dictated using voice recognition software and may contain errors or omissions
== END ==
PROVIDERS: Family Provider Internal Medicine Adolescent Medicine; PCP Internal Medicine Adolescent Medicine; Visit Provider Clinical Nurse Specialist Family Health
DX: G57.00 Lesion of sciatic nerve, unspecified lower limb (principal)
CPT/HCPCS: 99212

== ENCOUNTER → 2018-04-27 13:05 | Outpatient (POV) | payer MEDICAID, SELFPAY ==
[2018-04-27 13:11] VITALS: BP 130/79; PULSE 110; RESP 18; O2SAT 98; BMI 23.8
--- NOTE | 2018-04-27 13:15 | HMH.PAINSOAP ---
[facility] Pain Management SOAP Note Subjective:: Patient is a pleasant 57-year-old white female who presents today for follow-up after left SI joint nerve block and piriformis muscle injection. Patient is not doing well today. Patient has had an increase in her low back pain. Patient is having increased weakness in her leg. Patient was put on tramadol and she states this is not helping. Patient does not have a recent MRI. Patient has had a compression fracture in the past. I believe a new MRI may be beneficial. Patient is also asking for something to help with her muscle spasms. Patient rates her pain a 9 out of 10 ROS General: no recent weight change, no fever, no sleep disturbances Respiratory: no cough, no shortness of air, no recurring pulmonary infections Cardiovascular/Peripheral Vascular: No chest pain, No palpitations, no edema, no shortness of breath. Gastrointestinal: no incontinence, normal bowel movements reported Genitourinary: Self-catheterization Musculoskeletal: Back pain Psychiatric: normal mood/ affect, Neurological: Weakness in bilateral lower extremities, [denies balance issues] Objective:: Physical Exam General: Alert and oriented x3, no acute distress, pleasant and cooperative, [on room air] Lungs: Resps E/U, Symmetrical chest expansion Eyes: PERRL Musculoskeletal: Flexion and extension of lumbar spine somewhat guarded secondary to pain, deep tendon reflexes normal, strength in upper and lower extremities [5/5], [abnormal gait noted] Neurological: speech clear, 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 We will also Flexeril 10 mg 1 p.o. 3 times daily as needed for the patient. I will follow-up with the patient after her MRI. This note was dictated using voice recognition software and may contain errors or omissions
== END ==
PROVIDERS: Family Provider Internal Medicine Adolescent Medicine; PCP Internal Medicine Adolescent Medicine; Visit Provider Clinical Nurse Specialist Family Health
DX: M51.16 Intervertebral disc disorders with radiculopathy, lumbar region (principal); M46.1 Sacroiliitis, not elsewhere classified
CPT/HCPCS: 99213

== ENCOUNTER → 2018-05-07 12:50 | Outpatient (CLI) | payer MEDICAID, SELFPAY ==
--- NOTE | 2018-05-07 12:52 | MR_ITS ---
MR lumbar spine wo con, MR 3-d myelogram/MRCP HISTORY: LBP with bilateral hip pain. Intermittent LT leg pain. Symptoms X1YR since fall and had Kyphoplasty. Weakness in legs and hips. ITS.REASON: WORSENING BACK PAIN ORDERING PHYSICIAN: Aneesh Robledo MD PATIENT AGE: 57 years Comparison: 12-12-16 TECHNIQUE: Standard multiplanar multiecho sequences are performed without contrast. 3-D MIP and myelographic images are also rendered and reviewed FINDINGS: There is straightening of the lumbar lordosis. The spinal cord ends at the L1 level. Old compression changes involve the T12 vertebral body with retropulsion of the posterior inferior aspect of T12 with mild left lateral recess narrowing and mild left foraminal narrowing with bulging disc. The canal measures 13 mm. No canal stenosis. Prior Kyphoplasty at T12 L1-L2: Old compression changes of the L2 vertebral body with mild retropulsion of the posterior superior aspect with mild right lateral recess narrowing with bulging disc. The canal measures 12 mm. No canal stenosis. L2-L3: Unremarkable. L3-L4: Degenerative disc disease with bulging disc slightly eccentric toward the right with mild right-sided foraminal narrowing. L4-L5: Degenerative disc disease with bulging disc and mild facet and ligamentum flavum hypertrophy with mild bilateral foraminal narrowing. L5-S1: Degenerative disc disease with bulging disc and facet and ligamentum flavum hypertrophy with bilateral foraminal narrowing No disc herniation or canal stenosis apparent. No significant change. IMPRESSION: 1. Multilevel lumbar spondylosis with multilevel degenerative disc disease bulging disc and facet and ligamentum flavum hypertrophy with lateral recess and foraminal narrowing as described above. Please see above for detailed description at each level. No significant change 2. Old compression fractures of T12 and L2 with retropulsion not significantly changed. No cord compression. Prior kyphoplasty at T12 3. No disc herniation or canal stenosis
== END ==
PROVIDERS: Family Provider Internal Medicine Adolescent Medicine; PCP Internal Medicine Adolescent Medicine; Visit Provider Anesthesiology
DX: M54.5 Low back pain (principal)
CPT/HCPCS: 72148; 76376

== ENCOUNTER → 2018-05-18 11:03 | Outpatient (POV) | payer MEDICAID, SELFPAY ==
[2018-05-18 11:25] VITALS: BP 147/87; PULSE 86; RESP 18; O2SAT 98; BMI 23.7
--- NOTE | 2018-05-18 11:32 | HMH.PAINSOAP ---
[facility] Pain Management SOAP Note Subjective:: Is a pleasant 57-year-old white female who presents today for follow-up after MRI. Patient is having increased lower back pain. Patient has had a kyphoplasty in the past and we wanted to rule out a new compression fracture. Patient rates her pain today a 7 out of 10. Patient has been taking tramadol and Flexeril and has been doing well on this. Patient's MRI does show degenerative disc disease along with bulging disks and facet issues. Patient also has lumbar spondylosis. Patient wanted to discuss laser spine surgery I discussed with her the closest I was aware of was in the [facility] and she stated she wanted to try injections prior to making appointment. ROS General: no recent weight change, no fever, no sleep disturbances Respiratory: no cough, no shortness of air, no recurring pulmonary infections Cardiovascular/Peripheral Vascular: No chest pain, No palpitations, no edema, no shortness of breath. Gastrointestinal: no incontinence, normal bowel movements reported Genitourinary: no incontinence Musculoskeletal: Back pain, leg pain bilaterally Psychiatric: normal mood/ affect Neurological: [denies weakness in extremities], [denies balance issues] Objective:: Physical Exam General: Alert and oriented x3, no acute distress, pleasant and cooperative, [on room air] Lungs: Resps E/U, Symmetrical chest expansion, Eyes: PERRL Musculoskeletal: Flexion and extension of lumbar spine somewhat guarded secondary to pain, deep tendon reflexes normal, strength in upper and lower extremities [5/5], [abnormal gait noted] Neurological: speech clear, 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 Patient is in physical therapy in the past. Patient is not on any anticoagulation therapy. I will follow-up the patient after her injection. This note was dictated using voice recognition software and may contain errors or omissions
--- NOTE | 2018-05-18 11:35 | P.CONS_ITS ---
[facility] Pain Management SOAP Note Subjective:: Is a pleasant 57-year-old white female who presents today for follow-up after MRI. Patient is having increased lower back pain. Patient has had a kyphoplasty in the past and we wanted to rule out a new compression fracture. Patient rates her pain today a 7 out of 10. Patient has been taking tramadol and Flexeril and has been doing well on this. Patient's MRI does show degenerative disc disease along with bulging disks and facet issues. Patient also has lumbar spondylosis. Patient wanted to discuss laser spine surgery I discussed with her the closest I was aware of was in the [place] and she stated she wanted to try injections prior to making appointment. ROS General: no recent weight change, no fever, no sleep disturbances Respiratory: no cough, no shortness of air, no recurring pulmonary infections Cardiovascular/Peripheral Vascular: No chest pain, No palpitations, no edema, no shortness of breath. Gastrointestinal: no incontinence, normal bowel movements reported Genitourinary: no incontinence Musculoskeletal: Back pain, leg pain bilaterally Psychiatric: normal mood/ affect Neurological: [denies weakness in extremities], [denies balance issues] Objective:: Physical Exam General: Alert and oriented x3, no acute distress, pleasant and cooperative, [on room air] Lungs: Resps E/U, Symmetrical chest expansion, Eyes: PERRL Musculoskeletal: Flexion and extension of lumbar spine somewhat guarded secondary to pain, deep tendon reflexes normal, strength in upper and lower extremities [5/5], [abnormal gait noted] Neurological: speech clear, cathode builder equal, no gross sensory deficits Assessment:: Degenerative disc disease lumbar spine, bulging disc, lumbar radiculopathy Plan:: We will plan a L4-L5 lumbar epidural steroid injection for the patient. Patient is in physical therapy in the past. Patient is not on any anticoagulation therapy. I will follow-up the patient after her injection. This note was dictated using voice recognition software and may contain errors or omissions
== END ==
PROVIDERS: Family Provider Internal Medicine Adolescent Medicine; PCP Internal Medicine Adolescent Medicine; Visit Provider Clinical Nurse Specialist Family Health
DX: M51.16 Intervertebral disc disorders with radiculopathy, lumbar region (principal); Z87.39 Personal history of other diseases of the musculoskeletal system and connective tissue
CPT/HCPCS: 99213

== ENCOUNTER → 2018-06-12 14:48 | Outpatient (CLI) | payer MEDICAID, SELFPAY ==
--- NOTE | 2018-06-12 14:45 | US_ITS ---
US kidney retroperitoneal comp HISTORY: ITS.REASON: RECURRENT UTI ORDERING PHYSICIAN: Dian Tovar PATIENT AGE: 58 years Comparison: None FINDINGS: RIGHT KIDNEY:Unremarkable. Normal size and echogenicity. No hydronephrosis 10 x 4 x 6 cm LEFT KIDNEY:Unremarkable. No hydronephrosis. Normal size and echogenicity. 11 x 5 x 7 cm OTHER FINDINGS: Bilateral blood flow noted IMPRESSION: Unremarkable bilateral renal ultrasound
== END ==
PROVIDERS: Family Provider Internal Medicine Adolescent Medicine; PCP Internal Medicine Adolescent Medicine; Visit Provider Urology
DX: N39.0 Urinary tract infection, site not specified (principal)
CPT/HCPCS: 76770

== ENCOUNTER → 2018-07-06 10:39 | Outpatient (POV) | payer MEDICAID, SELFPAY ==
[2018-07-06 10:53] VITALS: BP 125/75; PULSE 76; RESP 18; O2SAT 97; BMI 23.3
--- NOTE | 2018-07-06 12:02 | P.CONS_ITS ---
[facility] Pain Management SOAP Note Subjective:: Patient is a pleasant 58 white female who presents today for follow-up after lumbar epidural steroid injection. Patient is doing very well. Patient states the pain is a 2 out of 10. Patient states she has a sinus infection and will be seeing her primary care physician today. Also needs refills on her tramadol and Flexeril. She denies side effects to these medications. She takes them as needed. [facility] #[id number] reviewed and appropriate. She denies side effects. ROS General: no recent weight change, no fever, no sleep disturbances Respiratory: no cough, no shortness of air, no recurring pulmonary infections Cardiovascular/Peripheral Vascular: No chest pain, No palpitations, no edema, no shortness of breath. Gastrointestinal: no incontinence, normal bowel movements reported Genitourinary: no incontinence Musculoskeletal: Back pain Psychiatric: normal mood/ affect Neurological: [denies weakness in extremities], [denies balance issues] Objective:: Physical Exam General: Alert and oriented x3, no acute distress, pleasant and cooperative, [on room air] Lungs: Resps E/U, Symmetrical chest expansion, \ Eyes: PERRL Musculoskeletal: Flexion and extension of lumbar spine somewhat guarded secondary to pain, deep tendon reflexes normal, strength in upper and lower extremities [5/5], [abnormal gait noted] Neurological: speech clear, 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 Patient's been instructed to call the office if she has any issues prior to her next appointment. We will call in her tramadol 50 mg 1 p.o. 3 times daily as needed and her Flexeril 10 mg 1 p.o. 3 times daily as needed. Dr. Robledo is reviewed this chart and agrees with this plan of care. This note was dictated using voice recognition software and may contain errors or omissions
== END ==
PROVIDERS: PCP Internal Medicine Adolescent Medicine; Visit Provider Clinical Nurse Specialist Family Health
DX: M51.16 Intervertebral disc disorders with radiculopathy, lumbar region (principal); Z87.39 Personal history of other diseases of the musculoskeletal system and connective tissue
CPT/HCPCS: 99213

== ENCOUNTER → 2018-10-07 13:39 | Outpatient (CLI) | payer MEDICAID, SELFPAY ==
--- NOTE | 2018-10-07 13:44 | CT_ITS ---
CT abdomen pelvis wo con CLINICAL INDICATION: Gross hematuria ITS.REASON: GROSS HEMATURIA ORDERING PHYSICIAN: Dian Tovar PATIENT AGE: 58 years COMPARISON: 05/31/2017 TECHNIQUE: Axial images obtained with sagittal and coronal reformats. All CT scans at the facility use one or more dose reduction, viz: automated exposure control, ma/kV adjustment per patient size (including targeted exams where dose is matched to indication, i.e. head), or iterative reconstruction technique. PROCEDURE: Oral Contrast: None IV Contrast: None . FINDINGS: Lower thorax: Mild thickening of the pericardium noted anteriorly. Small amount of gas is present in the distal esophagus and may be from reflux. The liver, spleen, adrenal glands, pancreas, and gallbladder have an unremarkable unenhanced appearance. No renal or ureteral calculi. No hydronephrosis or obvious renal mass. No retroperitoneal adenopathy. No intestinal obstruction or free air. Prior appendectomy. No pelvic mass or abnormal fluid collection. There is a small amount of gas within the anterior aspect of the urinary bladder. This could be either genic if there has been recent catheterization. There is mild wedging of L2 which is chronic. There has been prior kyphoplasty at T12 with severe wedging also chronic with mild retropulsion of the posterior inferior aspect of the T12 vertebral body x 6 mm similar to the previous exam. IMPRESSION: 1. No acute finding. 2. No renal or ureteral calculi. 3. There is a small amount of gas in the urinary bladder anteriorly and could be due to recent catheterization. Gas-forming infection is also included in the differential diagnosis
== END ==
PROVIDERS: PCP Internal Medicine Adolescent Medicine; Visit Provider Urology
DX: R31.0 Gross hematuria (principal)
CPT/HCPCS: 74176

== ENCOUNTER → 2018-10-31 08:36 | Outpatient (CLI) | payer MEDICAID, SELFPAY ==
[2018-10-31 09:31] LABS: Basophils # 0.1 K/mm3 (0-0.2); Eosinophils # 0.1 K/mm3 (0.0-0.4); Eosinophils % 2.6 % (0.1-12.0); Hematocrit 39.9 % (37.0-47.0); Hemoglobin 12.8 g/dL (12.2-16.2); Lymphocytes # 1.6 K/mm3 (0.7-4.5); Mean Corpuscular HGB Conc 32.1 g/dL (31.8-35.4); Mean Corpuscular Hemoglobin 25.9 pg (27.0-31.2); Mean Corpuscular Volume 80.7 fl (81-99); Mean Platelet Volume 7.8 fl (7.4-10.4); Monocytes # 0.2 K/mm3 (0.1-1.0); Monocytes % 4.7 % (1.7-9.3); Neutrophils # 3.1 K/mm3 (1.8-7.8); Neutrophils % 59.7 % (37.0-80.0); Platelet Count 196 K/mm3 (142-424); Red Blood Count 4.94 M/mm3 (4.20-5.40); Red Cell Distribution Width 13.8 % (11.5-17.5); White Blood Count 5.1 K/mm3 (4.8-10.8)
[2018-10-31 10:21] LABS: Alanine Aminotransferase 19 U/L (12-78); Albumin Level 3.3 gm/dL (3.4-5.0); Anion Gap 11.6 mEq/L (5-15); Aspartate Amino Transferase 10 U/L (15-37); Bilirubin,Total 0.4 mg/dL (0.2-1.0); Blood Urea Nitrogen 14 mg/dL (7-18); Calcium 8.3 mg/dL (8.5-10.1); Carbon Dioxide 29 mmol/L (21.0-32.0); Chloride 108 mmol/L (98-107); Cholesterol 185 mg/dL (140-200); Creatinine,Serum 0.59 mg/dL (0.55-1.02); Estimated Glomerular Filt Rate 104 ml/min (>60); GFR (African American) 126 ML/MIN (>60); Globulin 3.3 gm/dl (1.3-3.2); Glucose 92 mg/dL (74-106); HDL Cholesterol 37 mg/dL (29-89); LDL Cholesterol 126 mg/dL (0-130); Potassium 4.6 mmoL/L (3.5-5.1); Sodium 144 mmol/L (136-145); Total Protein,Serum 6.6 gm/dL (6.4-8.2); Triglycerides 111 mg/dL (30-200); VLDL Cholesterol 22 mg/dL (0-40)
[2018-10-31 10:22] LABS: Alkaline Phosphatase 81 U/L (46-116); Free Thyroxine Index 4.4 ug/dL (5.93-13.13); T4 (Thyroxine) 12.3 ug/dl (4.7-13.3); Thyroid Stimulating Hormone 1.11 uIU/ml (0.358-3.740); Triiodothryronine (T3) Uptake 36 % (31-39)
[2018-11-02 14:24] LABS: Vitamin B12 874 pg/mL (232-1245)
[2018-11-03 07:31] LABS: Vitamin D 25 Hydroxy 22.1 ng/mL (30.0-100.0)
== END ==
PROVIDERS: Visit Provider Internal Medicine Adolescent Medicine
DX: Z00.00 Encounter for general adult medical examination without abnormal findings (principal); E78.2 Mixed hyperlipidemia; E55.9 Vitamin D deficiency, unspecified; E53.8 Deficiency of other specified B group vitamins
CPT/HCPCS: 36415; 80053; 80061; 82607; 82652; 84436; 84443; 84479; 85025

== ENCOUNTER → 2018-12-22 09:46 | Outpatient (POV) | payer MEDICAID, SELFPAY ==
[2018-12-22 10:04] VITALS: BP 102/70; PULSE 80; RESP 18; O2SAT 98; BMI 24.5
--- NOTE | 2018-12-22 10:16 | P.CONS_ITS ---
[facility] Pain Management SOAP Note Subjective:: Patient is a pleasant 58-year-old female who presents today for follow-up. Patient's been doing well other than her left hip pain. Patient rates her pain 8 out of 10 today. Patient also wants to discuss her left foot. Patient has done injections in the past with good relief. ROS General: no recent weight change, no fever, no sleep disturbances Respiratory: no cough, no shortness of air, no recurring pulmonary infections Cardiovascular/Peripheral Vascular: No chest pain, No palpitations, no edema, no shortness of breath. Gastrointestinal: no incontinence, normal bowel movements reported Genitourinary: no incontinence Musculoskeletal: Left SI joint pain, left hip pain Psychiatric: normal mood/ affect, Neurological: [denies weakness in extremities], [denies balance issues] Objective:: Physical Exam General: Alert and oriented x3, no acute distress, pleasant and cooperative, [on room air] Lungs: Resps E/U, Symmetrical chest expansion, Eyes: PERRL Musculoskeletal: Flexion and extension of lumbar spine somewhat guarded secondary to pain, deep tendon reflexes normal, strength in upper and lower extremities [5/5], [abnormal gait noted] SI joint compression test positive Agawam's test and positive thigh thrust test on left side, extreme point tenderness over left greater trochanteric bursa Neurological: speech clear, 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 Plan:: We will schedule left SI joint injection and left greater trochanteric bursa injection. We will send her to Dr. Andres in regards to her left foot. Dr. Robledo has reviewed this note and agrees with this plan of care. This note was dictated using voice recognition software and may contain errors or omissions
== END ==
PROVIDERS: PCP Internal Medicine Adolescent Medicine; Visit Provider Clinical Nurse Specialist Family Health
DX: M51.16 Intervertebral disc disorders with radiculopathy, lumbar region (principal); M46.1 Sacroiliitis, not elsewhere classified
CPT/HCPCS: 99212

== ENCOUNTER → 2019-01-28 15:11 | Outpatient (CLI) | payer MEDICAID, SELFPAY ==
[2019-01-28 15:36] LABS: Basophils % 0.6 % (0.1-2.0); Eosinophils # 0.2 K/mm3 (0.0-0.4); Hematocrit 38.6 % (37.0-47.0); Hemoglobin 12.9 g/dL (12.2-16.2); Lymphocytes # 1.4 K/mm3 (0.7-4.5); Lymphocytes % 23.9 % (10-50); Mean Corpuscular HGB Conc 33.6 g/dL (31.8-35.4); Mean Corpuscular Volume 77.5 fl (81-99); Mean Platelet Volume 7.6 fl (7.4-10.4); Monocytes # 0.3 K/mm3 (0.1-1.0); Monocytes % 5.5 % (1.7-9.3); Neutrophils # 3.8 K/mm3 (1.8-7.8); Platelet Count 140 K/mm3 (142-424); Red Blood Count 4.97 M/mm3 (4.20-5.40); Red Cell Distribution Width 14.8 % (11.5-17.5); White Blood Count 5.7 K/mm3 (4.8-10.8)
[2019-01-28 17:09] LABS: Alanine Aminotransferase 27 U/L (12-78); Albumin Level 3.8 gm/dL (3.4-5.0); Albumin/Globulin Ratio 1.2 (1.1-1.8); Alkaline Phosphatase 84 U/L (46-116); Aspartate Amino Transferase 19 U/L (15-37); Bilirubin,Total 0.5 mg/dL (0.2-1.0); Blood Urea Nitrogen 8 mg/dL (7-18); Calcium 8.2 mg/dL (8.5-10.1); Carbon Dioxide 21 mmol/L (21.0-32.0); Chloride 106 mmol/L (98-107); Chol/HDL Ratio 5.6 (1-3.5); Cholesterol 235 mg/dL (140-200); Creatinine,Serum 0.47 mg/dL (0.55-1.02); Estimated Glomerular Filt Rate 135 ml/min (>60); GFR (African American) 164 ML/MIN (>60); Globulin 3.2 gm/dl (1.3-3.2); Glucose 102 mg/dL (74-106); HDL Cholesterol 42 mg/dL (29-89); LDL Cholesterol 165 mg/dL (0-130); Sodium 141 mmol/L (136-145); Thyroid Stimulating Hormone 4.14 uIU/ml (0.358-3.740); Triglycerides 138 mg/dL (30-200); VLDL Cholesterol 28 mg/dL (0-40)
[2019-01-31 17:22] LABS: Vitamin B12 797 pg/mL (232-1245); Vitamin D 25 Hydroxy 20.1 ng/mL (30.0-100.0)
== END ==
PROVIDERS: PCP Nurse Practitioner Family; Visit Provider Nurse Practitioner Family
DX: Z00.00 Encounter for general adult medical examination without abnormal findings (principal); E03.9 Hypothyroidism, unspecified; E53.8 Deficiency of other specified B group vitamins; E55.9 Vitamin D deficiency, unspecified
CPT/HCPCS: 36415; 80053; 80061; 82607; 82652; 84443; 85025

== ENCOUNTER → 2019-02-15 10:25 | Outpatient (POV) | payer MEDICAID, SELFPAY ==
[2019-02-15 10:44] VITALS: BP 126/55; PULSE 102; RESP 18; O2SAT 98; BMI 24.7
--- NOTE | 2019-02-15 11:09 | HMH.PAINSOAP ---
[facility] Pain Management SOAP Note Subjective:: Is a pleasant 58-year-old white female who presents today for injection and left greater trochanteric bursa injection. She does say that she had relief of pain after the injection for about 2 weeks. She says it was 80% effective at that time. Today she rates her pain a 9 out of 10. She says she had relief from the first round of injections in the last time. ROS General: no recent weight change, no fever, no sleep disturbances Respiratory: no cough, no shortness of air, no recurring pulmonary infections Cardiovascular/Peripheral Vascular: No chest pain, No palpitations, no edema, no shortness of breath. Gastrointestinal: no incontinence, normal bowel movements reported Genitourinary: no incontinence Musculoskeletal: Back pain, bilateral hip pain Psychiatric: normal mood/ affect Neurological: [denies weakness in extremities], [denies balance issues] Objective:: Physical Exam General: Alert and oriented x3, no acute distress, pleasant and cooperative, [on room air] Lungs: Resps E/U, Symmetrical chest expansion, Eyes: PERRL Musculoskeletal: Flexion and extension of lumbar spine somewhat guarded secondary to pain, deep tendon reflexes normal, strength in upper and lower extremities [5/5], antalgic gait noted positive Dylan test, positive SI joint compression test, positive Francisco Javier's test on the left. Extreme point tenderness over left greater trochanteric bursa Neurological: speech clear, card doffer equal, spasticity noted Assessment:: Sacroiliitis, bursitis Plan:: The patient does report she did have relief with the first round of injections. She would like to try SI great trochanteric injections again. We will schedule her bilateral SI and bilateral greater trochanteric bursa injections. Patient's not on any anticoagulation therapy she is continuing a home stretching program. She is on anti-inflammatories. Dr. Robledo has reviewed this note and agrees with this plan of care. This note was dictated using voice recognition software and may contain errors or omissions
--- NOTE | 2019-02-15 11:12 | P.CONS_ITS ---
[facility] Pain Management SOAP Note Subjective:: Is a pleasant 58-year-old white female who presents today for injection and left greater trochanteric bursa injection. She does say that she had relief of pain after the injection for about 2 weeks. She says it was 80% effective at that time. Today she rates her pain a 9 out of 10. She says she had relief from the first round of injections in the last time. ROS General: no recent weight change, no fever, no sleep disturbances Respiratory: no cough, no shortness of air, no recurring pulmonary infections Cardiovascular/Peripheral Vascular: No chest pain, No palpitations, no edema, no shortness of breath. Gastrointestinal: no incontinence, normal bowel movements reported Genitourinary: no incontinence Musculoskeletal: Back pain, bilateral hip pain Psychiatric: normal mood/ affect Neurological: [denies weakness in extremities], [denies balance issues] Objective:: Physical Exam General: Alert and oriented x3, no acute distress, pleasant and cooperative, [on room air] Lungs: Resps E/U, Symmetrical chest expansion, Eyes: PERRL Musculoskeletal: Flexion and extension of lumbar spine somewhat guarded secondary to pain, deep tendon reflexes normal, strength in upper and lower extremities [5/5], antalgic gait noted positive Dylan test, positive SI joint compression test, positive Francisco Javier's test on the left. Extreme point tenderness over left greater trochanteric bursa Neurological: speech clear, hand drawer in equal, spasticity noted Assessment:: Sacroiliitis, bursitis Plan:: The patient does report she did have relief with the first round of injections. She would like to try SI great trochanteric injections again. We will schedule her bilateral SI and bilateral greater trochanteric bursa injections. Patient's not on any anticoagulation therapy she is continuing a home stretching program. She is on anti-inflammatories. Dr. Robledo has reviewed this note and agrees with this plan of care. This note was dictated using voice recognition software and may contain errors or omissions
== END ==
PROVIDERS: PCP Internal Medicine Adolescent Medicine; Visit Provider Clinical Nurse Specialist Family Health
DX: M46.1 Sacroiliitis, not elsewhere classified (principal); M71.9 Bursopathy, unspecified
CPT/HCPCS: 99212

== ENCOUNTER → 2019-03-16 11:36 | Outpatient (POV) | payer MEDICAID, SELFPAY ==
[2019-03-16 11:53] VITALS: BP 148/83; PULSE 82; RESP 18; O2SAT 98; BMI 24.3
--- NOTE | 2019-03-16 12:58 | P.CONS_ITS ---
[facility] Pain Management SOAP Note Subjective:: Patient is a pleasant 58-year-old white female who presents today for follow-up after left SI joint injection and left greater trochanteric bursa injection. Patient says that she had about 80% relief with the injection that lasted for about 2 weeks. She says that she is now having pain in her left leg that is burning and tingling. She says that it is worse with ambulation and is radiating into her left foot. She is continuing a home stretching program and anti-inflammatories. Review of Systems General: No recent weight changes, no fever, no sleep disturbances Respiratory: No cough, no shortness of air, no recurring pulmonary infections Cardiovascular/peripheral vascular: No chest pain, no palpitations, no edema, no shortness of breath Gastrointestinal: No new onset incontinence, normal bowel movements reported Genitourinary: No new onset incontinence Musculoskeletal: Left leg pain Psychiatric: Normal mood/affect Neurological: [Denies weakness in extremities], [denies balance issues] Objective:: Physical exam General: Alert and oriented x3, no acute distress, pleasant and cooperative, [on room air] Lungs: Respirations even and unlabored, symmetrical chest expansion Eyes: PERRL Musculoskeletal: Range of motion to left leg somewhat guarded secondary to pain, deep tendon reflexes normal, strength in upper and lower extremities [5/5], [abnormal gait noted] Neurological: Speech clear, 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 at night. She will continue a home stretching program and anti-inflammatories. We will follow-up with the patient in 1 month to reassess her symptoms at that time. She is been instructed to call the office she has any concerns prior to her next appointment. The end
--- NOTE | 2019-03-17 14:05 | PC.NURSE ---
Gabapentin 100mg po HS with 1 refill called into [facility] pharmacy per provider order
== END ==
PROVIDERS: PCP Internal Medicine Adolescent Medicine; Visit Provider Clinical Nurse Specialist Family Health
DX: M46.1 Sacroiliitis, not elsewhere classified (principal); M71.9 Bursopathy, unspecified; G62.9 Polyneuropathy, unspecified
CPT/HCPCS: 99212

== ENCOUNTER → 2019-04-08 13:27 | Outpatient (CLI) | payer MEDICAID, SELFPAY ==
--- NOTE | 2019-04-08 13:31 | XR_ITS ---
XR foot wt bearing RT 3V HISTORY: ITS.REASON: pain ORDERING PHYSICIAN: Deborah Andres DPM PATIENT AGE: 58 years COMPARISON: None FINDINGS: No fracture or dislocation. No lytic or blastic change. There is normal mineralization.. The joint spaces are well-preserved. No significant degenerative/arthritic changes. No erosive changes evident. Hammertoe deformity involves the second, third, and fourth toes IMPRESSION: Hammertoe deformity otherwise negative
--- NOTE | 2019-04-08 13:31 | XR_ITS ---
XR foot wt bearing LT 3V HISTORY: ITS.REASON: pain ORDERING PHYSICIAN: Dbeorah Andres DPM PATIENT AGE: 58 years COMPARISON: None FINDINGS: There are old fractures of the second and fourth metatarsals. Severe osteoarthritic changes are present involving the first metatarsal tarsal joint. There are mild osteoarthritic changes of the first metatarsophalangeal joint. Mild osteoarthritic change of the second and third metatarsal tarsal joints as well. There is mild pes planus with an old fracture of the distal fibula and distal tibia. No acute fracture or dislocation. No lytic or blastic change. IMPRESSION: Pes planus with old fractures and osteoarthritic change
== END ==
PROVIDERS: PCP Internal Medicine Adolescent Medicine; Visit Provider Podiatrist
DX: M79.672 Pain in left foot (principal)
CPT/HCPCS: 73630

== ENCOUNTER → 2019-04-13 09:56 | Outpatient (POV) | payer MEDICAID, SELFPAY ==
[2019-04-13 10:31] VITALS: BP 127/77; PULSE 78; RESP 18; O2SAT 99; BMI 24.5
--- NOTE | 2019-04-13 10:54 | P.CONS_ITS ---
[facility] Pain Management SOAP Note Subjective:: Patient is a pleasant 58-year-old white female who presents today for follow-up after starting gabapentin 100 mg at nighttime. Overall she is doing well rating her pain a 4 out of 10. Patient states that she is working with Dr. Andres to help with her bunion on her left foot. Patient would like to follow-up in several months. ROS General: no recent weight change, no fever, no sleep disturbances Respiratory: no cough, no shortness of air, no recurring pulmonary infections Cardiovascular/Peripheral Vascular: No chest pain, No palpitations, no edema, no shortness of breath. Gastrointestinal: no incontinence, normal bowel movements reported Genitourinary: no incontinence Musculoskeletal: Generalized pain, back pain, leg pain, foot pain Psychiatric: normal mood/ affect Neurological: [denies weakness in extremities], [denies balance issues] Objective:: Physical Exam General: Alert and oriented x3, no acute distress, pleasant and cooperative, [on room air] Lungs: Resps E/U, Symmetrical chest expansion, Eyes: PERRL Musculoskeletal: Flexion and extension of lumbar spine somewhat guarded secondary to pain, deep tendon reflexes normal, strength in upper and lower extremities [4/5], [abnormal gait noted] Neurological: speech clear, lens shaper grinder equal, no gross sensory deficits Assessment:: Degenerative disc disease lumbar spine with lumbar radiculopathy, peripheral neuropathy Plan:: We will continue the patient on gabapentin 100 mg p.o. nightly. I will see her back in 2 months reassess her symptoms at that time she is been instructed to call the office if she has any issues prior to her next appointment. Dr. Robledo has reviewed this note and agrees with this plan of care. This note was dictated using voice recognition software and may contain errors or omissions Pain Management Hx Components *Have you ever received a pneumonia vaccine?: Yes *Have you received a flu vaccine this season?: Yes - *Social History *Occupational Status:: other *Travel in the last 8 weeks: None
== END ==
PROVIDERS: PCP Internal Medicine Adolescent Medicine; Visit Provider Clinical Nurse Specialist Family Health
DX: M51.16 Intervertebral disc disorders with radiculopathy, lumbar region (principal); G62.9 Polyneuropathy, unspecified
CPT/HCPCS: 99212

== ENCOUNTER → 2019-06-14 10:34 | Outpatient (POV) | payer OTHER, SELFPAY ==
[2019-06-14 10:45] VITALS: BP 101/81; PULSE 93; RESP 20; O2SAT 97; BMI 24.8
--- NOTE | 2019-06-14 11:06 | HMH.PAINSOAP ---
[facility] Pain Management SOAP Note Subjective:: Patient is a 59-year-old white female who presents today for follow-up. Patient had a fall 2 weeks ago since then she is had increased pain in her lower back she rates her pain a 9 out of 10. She is interested in injective therapy she is done well with these in the past. She is currently on gabapentin 100 mg at nighttime. She denies side effects. We discussed decreasing this to twice a day. She is also utilizing ibuprofen. ROS General: no recent weight change, no fever, no sleep disturbances Respiratory: no cough, no shortness of air, no recurring pulmonary infections Cardiovascular/Peripheral Vascular: No chest pain, No palpitations, no edema, no shortness of breath. Gastrointestinal: no incontinence, normal bowel movements reported Genitourinary: no incontinence Musculoskeletal: Back pain, leg pain Psychiatric: normal mood/ affect Neurological: [denies weakness in extremities], [denies balance issues] Objective:: Physical Exam General: Alert and oriented x3, no acute distress, pleasant and cooperative, [on room air] Lungs: Resps E/U, Symmetrical chest expansion, Eyes: PERRL Musculoskeletal: Flexion and extension of lumbar spine somewhat guarded secondary to pain, deep tendon reflexes normal, strength in upper and lower extremities [5/5], [abnormal gait noted] Neurological: speech clear, supervisor sunglasses equal, no gross sensory deficits Assessment:: Degenerative disc disease lumbar spine with lumbar radiculopathy history of compression fracture status post kyphoplasty Plan:: We will schedule an L4-L5 lumbar epidural steroid injection given the efficacy of this in the past I believe it would be beneficial. Patient's been instructed to call the office if she has any issues prior to her next appointment she is not on any anticoagulation therapy. Crease her gabapentin to [address] Robledo has reviewed this note and agrees with this plan of care. This note was dictated using voice recognition software and may contain errors or omissions [facility] History I have reviewed the patient's past medical history: Yes Medical History: Reports:: Anxiety, Depression, Gastroesophageal Reflux Disease(GERD), Hyperlipidemia, Osteoporosis, Urinary Tract Infection Denies:: Cancer, Diabetes Mellitus Type 1, Diabetes Mellitus Type 2, Internal Pacemaker, Lung Disease, MRSA, Seizures *Have you ever received a pneumonia vaccine?: No *Have you received a flu vaccine this season?: No Other Medical History: Reports: Arthritis, Hypothyroidism, Osteoporosis, Thyroid Disease, Other Other Surgeries: Yes: Appendectomy, EGD, Thyroidectomy, Tubal Ligation. No: Pacemaker Amputation: No Fractures: No - *Social History Smoking Status: Never smoker Alcohol Intake: never Substance Use Type: denies use *Occupational Status:: disabled Housing: house Household Members: spouse *Travel in the last 8 weeks: None - Psychiatric History Pschychiatric History:: Reports:: Anxiety, Depression Family Hx:: Diabetes, Heart Attack
--- NOTE | 2019-06-30 12:09 | PC.NURSE ---
GABAPENTIN 200MG QHS WITH 2 REFILLS CALLED INTO [facility] IN [place] PER PROVIDER ORDER
== END ==
PROVIDERS: PCP Internal Medicine Adolescent Medicine; Visit Provider Clinical Nurse Specialist Family Health
DX: M51.16 Intervertebral disc disorders with radiculopathy, lumbar region (principal); Z87.39 Personal history of other diseases of the musculoskeletal system and connective tissue
CPT/HCPCS: 99212

== ENCOUNTER → 2019-07-01 09:53 | Outpatient (CLI) | payer OTHER, SELFPAY ==
--- NOTE | 2019-07-01 09:56 | MM_ITS ---
PROCEDURE: MM DIG SCREENING MAMM BI W/CAD Patient Age:59Y CLINICAL INDICATION: SCREENING no hormones. No new complaints. 59-year-old postmenopausal female Family history. Maternal grandmother with breast cancer. COMPARISON: DIGMAMMS MAMMOGRAM SCREEN-SHIPPING CHECKER N/C from 04/11/2010 [facility] DIGITAL MAMM-SCREEN BILATERAL from 06/20/2011 [facility] DIGITAL MAMM-SCREEN BILATERAL from 06/22/2012 [facility] DIG MAMM-SCREEN MAN from 06/16/2013 [facility] DIG MAMM-SCREEN MAN from 06/25/2016 [facility] DIG MAMM-SCREEN MAN W/CAD from 06/26/2017 TECHNIQUE: Standard CC and MLO images were obtained. R2 CAD reviewed. Additional right MLO view included FINDINGS: Moderately dense heterogeneous breast pattern bilaterally. Mammography of 0 slight decrease sensitivity in breast of this character. No dominant or suspicious new mass evident. Minimal benign calcifications bilaterally. No suspicious calcifications, Right breast. Areas of minimal asymmetric density appear similar to previous studies and dissipate from 1 MLO view to the other Minor stable small groupings of dense punctate calcifications not of concern bilaterally Left breast: No new areas of significant concern. But stable appearance in architecture IMPRESSION: Stable bilateral mammogram. Moderately dense Breast slightly decrease mammography sensitivity, but No new areas of significant concern bilateral follow-up 1 year recommended BI-RAD Category: 2 Benign Finding(s) FOLLOW-UP: 1YR 1 Year Follow-up (A letter has been sent to the patient regarding results of the study.) Dictated by: Sammy Tam MD 07/03/2019 09:58 Electronically signed by Sammy Tam MD in [place] 07/03/2019 09:58
== END ==
PROVIDERS: PCP Internal Medicine Adolescent Medicine; Visit Provider Internal Medicine Adolescent Medicine
DX: Z12.31 Encounter for screening mammogram for malignant neoplasm of breast (principal)
CPT/HCPCS: 77067

== ENCOUNTER → 2019-07-21 09:40 | Outpatient (CLI) | payer OTHER, SELFPAY ==
[2019-07-21 10:10] LABS: Basophils # 0.1 K/mm3 (0-0.2); Eosinophils # 0.2 K/mm3 (0.0-0.4); Eosinophils % 3.6 % (0.1-12.0); Hematocrit 44.7 % (37.0-47.0); Hemoglobin 13.3 g/dL (12.2-16.2); Lymphocytes # 1.4 K/mm3 (0.7-4.5); Lymphocytes % 24.4 % (10-50); Mean Corpuscular HGB Conc 29.8 g/dL (31.8-35.4); Mean Corpuscular Volume 83.7 fl (81-99); Mean Platelet Volume 8.3 fl (7.4-10.4); Monocytes # 0.2 K/mm3 (0.1-1.0); Neutrophils # 3.7 K/mm3 (1.8-7.8); Platelet Count 178 K/mm3 (142-424); Red Blood Count 5.34 M/mm3 (4.20-5.40); White Blood Count 5.5 K/mm3 (4.8-10.8)
[2019-07-21 12:55] LABS: Alanine Aminotransferase 21 U/L (12-78); Albumin Level 3.8 gm/dL (3.4-5.0); Albumin/Globulin Ratio 1.2 (1.1-1.8); Alkaline Phosphatase 101 U/L (46-116); Anion Gap 14.9 mEq/L (5-15); Aspartate Amino Transferase 14 U/L (15-37); Bilirubin,Total 0.4 mg/dL (0.2-1.0); Blood Urea Nitrogen 18 mg/dL (7-18); Calcium 8.4 mg/dL (8.5-10.1); Carbon Dioxide 26 mmol/L (21.0-32.0); Chloride 105 mmol/L (98-107); Chol/HDL Ratio 5.8 (1-3.5); Cholesterol 239 mg/dL (140-200); Creatinine,Serum 0.62 mg/dL (0.55-1.02); Estimated Glomerular Filt Rate 98 ml/min (>60); GFR (African American) 118 ML/MIN (>60); Globulin 3.3 gm/dl (1.3-3.2); Glucose 103 mg/dL (74-106); HDL Cholesterol 41 mg/dL (29-89); LDL Cholesterol 170 mg/dL (0-130); Potassium 3.9 mmoL/L (3.5-5.1); Sodium 142 mmol/L (136-145); Thyroid Stimulating Hormone 5.52 uIU/ml (0.358-3.740); Total Protein,Serum 7.1 gm/dL (6.4-8.2); Triglycerides 141 mg/dL (30-200); VLDL Cholesterol 28 mg/dL (0-40)
[2019-07-22 08:14] LABS: Vitamin D 25 Hydroxy 22.3 ng/mL (30.0-100.0)
== END ==
PROVIDERS: Visit Provider Internal Medicine Adolescent Medicine
DX: R53.82 Chronic fatigue, unspecified (principal); E78.2 Mixed hyperlipidemia; E55.9 Vitamin D deficiency, unspecified
CPT/HCPCS: 36415; 80053; 80061; 82652; 84443; 85025

== ENCOUNTER → 2019-08-10 07:58 | Outpatient (CLI) | payer OTHER, SELFPAY ==
--- NOTE | 2019-08-10 | CA_ITS ---
APPROVED REPORT Exam: Pharmacologic Technologist: Brianna Stewart Ht: 5 ft 6 in Wt: 151 lbs BSA: 1.77 m2 HR: 91 bpm BP: 124/68 mmHg Indications: Chest pain Medical History Medications: Lorazepam,,,,, Omeprazole,,,,, Levothyroxine,,,,, Gabapentin,,,,, Vitamin B12,,,,, Atorvastatin,,,,, Albuterol,,,,, Estradiol,,,,, Baclofen,,,,, Fluoxetine,,,,, Sertraline,,,,, Vitamin D2,,,,, Stress Test Details Test: LEXISCAN HR Resting HR: 93 bpm Max Heart Rate (APMHR): 159 bpm Max HR Achieved: 125 bpm Target HR (85% APMHR): 135 bpm % of APMHR: 78 Recovery HR: 102 bpm BP Resting BP: 124.0/68.0 mmHg Max BP: 134.0/83.0 mmHg Recovery BP: 125.0/77.0 mmHg ECG Clinical Exercise duration: 04:06 min Highest Stage Achieved: Exercise capacity: 1.0 METs Stress ECG Conclusion Resting ECG: Normal sinus rhythm Symptoms: Mild shortness of air. No chest pain. Arrhythmias/Ectopy: None ST-T Changes: No significant changes. Conclusion: Unremarkable Lexiscan stress. Myoview images reported separately. Electronically signed by : Bassem Zhong, 08/11/2019 05:57:07
--- NOTE | 2019-08-10 08:01 | NM_ITS ---
APPROVED REPORT Exam: Nuclear Stress Test Indication: Chest pain, SOB, High cholesterol, Family history Patient Location: Outpatient Stress Tech: Brianna Stewart NM Tech:Liana Fox, ARRT, RT (R)(N) Ht: 5 ft 6 in Wt: 151 lbs Bra Size: 36B HR: 91 bpm BP: 124/68 mmHg BSA: 1.77 m2 BMI: 24.3 History: Chest pain, SOB, High cholesterol, Family history Procedure: Patient received a 0.4 mg of intravenous Lexiscan, resting heart rate 91 bpm, resting blood pressure 124/68 mmHg, with Lexiscan maximum heart rate achived was 104 bpm which is Less than 85 % of the maximum predicted heart rate and blood pressure was 105/71 mmHg. With Lexiscan, patient denied any complaint of chest pain. Electrocardiogram Resting electrocardiogram showed sinus rhythm, with Lexiscan there is less than 1.[address] segment depression noted from the baseline EKG. The EKG portion of the Lexiscan Myoview is nondiagnostic. Cardiac Stress and Resting SPECT Images: Cardiac Stress and Resting SPECT images were obtained using technetium 99m Myoview 32.1 mCi stress and 10.67 mCi at rest. Gated SPECT for analysis of segmental wall motion and calculation of the ejection fraction also done. Cardiac stress and resting SPECT images show uniform myocardial activity without segmental left perfusion abnormality, computer derived ejection fraction is 63% with no regional wall motion abnormality, right ventricle is normal size and contractility, however there appears to be transient ischemic dilatation of the left ventricle raising the concerns for presence of balanced ischemia. Conclusion: 1. The EKG portion of the Lexiscan Myoview is nondiagnostic. 2. No scintigraphic evidence of reversible ischemia seen, computer derived ejection fraction is 63% with no regional wall motion abnormality, right ventricle is normal size and contractility. However there appears to be transient ischemic dilatation of the left ventricle raising the concerns for presence of balanced ischemia. 3. Abnormal Lexiscan Myoview study. Electronically signed by : Bassem Zhong, 08/11/2019 05:59:29
== END ==
PROVIDERS: PCP Internal Medicine Adolescent Medicine; Visit Provider Internal Medicine Adolescent Medicine
DX: R07.2 Precordial pain (principal)
CPT/HCPCS: 78452; 93017; A9502; J2785

== ENCOUNTER → 2019-08-16 14:34 | Outpatient (POV) | payer OTHER, SELFPAY ==
[2019-08-16 15:39] VITALS: BP 132/88; PULSE 88; RESP 18; O2SAT 98; BMI 24.5
--- NOTE | 2019-08-17 08:40 | HMH.PAINSOAP ---
[facility] Pain Management SOAP Note Subjective:: Patient is a pleasant 59-year-old white female who presents today for follow-up after lumbar epidural steroid injection. Patient is now having left-sided pain only. Patient has done well with injections in the past. Patient states the pain is different and nonradiating. We will plan a medial branch block. Patient's not on any anticoagulation therapy. She is on anti-inflammatories. She is continuing her home stretching exercises. She rates her pain today a 7 out of 10 ROS General: no recent weight change, no fever, no sleep disturbances Respiratory: no cough, no shortness of air, no recurring pulmonary infections Cardiovascular/Peripheral Vascular: No chest pain, No palpitations, no edema, no shortness of breath. Gastrointestinal: no new onset incontinence, normal bowel movements reported Genitourinary: no new onset incontinence Musculoskeletal: Left-sided back pain Psychiatric: normal mood/ affect Neurological: [denies new onset weakness in extremities], [denies new onset balance issues] Objective:: Physical Exam General: Alert and oriented x3, no acute distress, pleasant and cooperative, [on room air] Lungs: Resps E/U, Symmetrical chest expansion, Eyes: PERRL Musculoskeletal: Flexion and extension of lumbar spine somewhat guarded secondary to pain, deep tendon reflexes normal, strength in upper and lower extremities [5/5], [abnormal gait noted] positive Kemps test on the left side Neurological: speech clear, pricing intern equal, no gross sensory deficits Assessment:: Degenerative disc disease lumbar spine with lumbar spondylosis and facet arthropathy Plan:: We will schedule the patient for an L3-L4 L4-L5 L5-S1 left-sided medial branch block. I will follow-up with the patient after this reassess her symptoms at that time she is been instructed to call the office if she has any issues prior to her next appointment. She is not on any anticoagulation therapy. Dr. Robledo has reviewed this note and agrees with this plan of care. This note was dictated using voice recognition software and may contain errors or omissions [facility] History I have reviewed the patient's past medical history: Yes Medical History: Reports:: Anxiety, Depression, Gastroesophageal Reflux Disease(GERD), Hyperlipidemia, Hypertension, Osteoporosis, Urinary Tract Infection Denies:: Cancer, Diabetes Mellitus Type 1, Diabetes Mellitus Type 2, Internal Pacemaker, Lung Disease, MRSA, Seizures *Have you ever received a pneumonia vaccine?: Yes *Have you received a flu vaccine this season?: Yes Other Medical History: Reports: Arthritis, Hypothyroidism, Osteoporosis, Thyroid Disease, Other Other Surgeries: Yes: Appendectomy, EGD, Thyroidectomy, Tubal Ligation. No: Pacemaker Amputation: No Fractures: No - *Social History Smoking Status: Never smoker Alcohol Intake: never Substance Use Type: denies use *Occupational Status:: other Housing: house Household Members: spouse *Travel in the last 8 weeks: None - Psychiatric History Pschychiatric History:: Reports:: Anxiety, Depression Family Hx:: Diabetes, Heart Attack
== END ==
PROVIDERS: PCP Internal Medicine Adolescent Medicine; Visit Provider Clinical Nurse Specialist Family Health
DX: M51.36 Other intervertebral disc degeneration, lumbar region (principal); M47.816 Spondylosis without myelopathy or radiculopathy, lumbar region; M54.06 Panniculitis affecting regions of neck and back, lumbar region
CPT/HCPCS: 99212

== ENCOUNTER → 2019-08-24 10:47 | Outpatient (CLI) | payer OTHER, SELFPAY ==
--- NOTE | 2019-08-24 10:49 | MR_ITS ---
PROCEDURE: MR LUMBAR SPINE WO CON CLINICAL INDICATION: BACK PAIN Low back pain, prior kyphoplasty, left-sided low back pain with left hip and buttock pain COMPARISON: SPLUMBWO MR lumbar spine wo con from 05/07/2018 XR LUMBAR SPINE 2-3V from 06/10/2019 TECHNIQUE: Standard multiplanar multiecho sequences are performed without contrast. 3-D MIP and myelographic images are also rendered and reviewed FINDINGS: There is mild thoracolumbar kyphosis. The spinal cord ends at the L1 level. Acute wedge compression changes are present involving the T11 vertebral body with loss of height centrally of greater than 50 percent and loss of height anteriorly of approximately 40 percent. There is minimal retropulsion of the posterior superior aspect of the T11 vertebral body by approximately 3 mm without impingement. T11 vertebral Oddi is hypointense on T1 and hyperintense on T2. Chronic compression fracture involves T12 unchanged with loss of height centrally of greater than 50 percent and loss of height anteriorly of 50 percent with hypointensity at this vertebral body centrally consistent with prior kyphoplasty. There is mild retropulsion the posterior inferior aspect of T12 unchanged. T12-L1: Bulging disc. L1-L2: Mild chronic wedge compression changes of L2 with mild retropulsion of the posterior superior aspect of L2 of 3 mm. These findings are not significantly changed. L2-L3: Unremarkable. L3-L4: Degenerate disc disease with mild bulging disc slightly eccentric toward the right with mild bilateral foraminal narrowing greater on the right. L4-5: Degenerate disc disease with mild bulging disc with mild facet ligamentum hypertrophy and mild bilateral foraminal narrowing. L5-S1: Degenerate disc disease with bulging disc eccentric toward the right along with facet ligamentum hypertrophy with moderate to severe bilateral foraminal narrowing not significantly changed. No extruded herniated disc are evident. There is mild lumbar scoliosis convex left. IMPRESSION: 1. Acute wedge compression fracture of T11 with mild retropulsion of the posterior superior aspect of T11. No cord impingement 2. Chronic wedge compression fracture T12 status post prior kyphoplasty with chronic compression changes also of L2. 3. Multilevel degenerative changes with bulging disc and facet ligamentum hypertrophy with foraminal narrowing. Please see above for detailed description at each level 4. No extruded herniated disc Dictated by: Brennon Collado MD 08/26/2019 05:39 Electronically signed by Brennon Collado MD in [place] 08/26/2019 05:39
== END ==
PROVIDERS: PCP Internal Medicine Adolescent Medicine; Visit Provider Clinical Nurse Specialist Family Health
DX: M54.5 Low back pain (principal)
CPT/HCPCS: 72148; 76376

== ENCOUNTER → 2019-09-06 08:15 | Outpatient (POV) | payer OTHER, SELFPAY | PROVIDERS: Visit Provider Nurse Practitioner Family | DX: Z00.00 Encounter for general adult medical examination without abnormal findings (principal) ==

== ENCOUNTER → 2019-09-27 14:39 | Outpatient (POV) | payer OTHER, MEDICAID, SELFPAY ==
[2019-09-27 14:51] VITALS: BP 130/95; PULSE 94; RESP 18; O2SAT 98; BMI 24.3
--- NOTE | 2019-09-28 09:02 | HMH.PAINSOAP ---
[facility] Pain Management SOAP Note Subjective:: Patient is a pleasant 59-year-old white female who presents today for follow-up after kyphoplasty. Patient states her back is improved rating her back pain a 5 out of 10 however her lower back and legs and hips are increasing in pain. She rates her pain an 8 out of 10. She has difficulty in regards to pain control secondary to her cerebral palsy and subsequent restrictions with her mobility. Patient and I had a long discussion in regards to the future pain control. She is interested in an intrathecal pain pump which I do believe would be beneficial for her. She is not on any anticoagulation therapy. She is had multiple compression fractures. I do also feel like she needs to follow-up with her primary care physician in regards to treatment of her osteoporosis and she is willing to do so. Patient I had a long discussion about an intrathecal pain pump and the process along with the risks and benefits of the procedure. ROS General: no recent weight change, no fever, no sleep disturbances Respiratory: no cough, no shortness of air, no recurring pulmonary infections Cardiovascular/Peripheral Vascular: No chest pain, No palpitations, no edema, no shortness of breath. Gastrointestinal: no new onset incontinence, normal bowel movements reported Genitourinary: no new onset incontinence Musculoskeletal: Back pain, leg pain Psychiatric: normal mood/ affect Neurological: [denies new onset weakness in extremities], [denies new onset balance issues] Objective:: Physical Exam General: Alert and oriented x3, no acute distress, pleasant and cooperative, [on room air] Lungs: Resps E/U, Symmetrical chest expansion, Eyes: PERRL Musculoskeletal: Flexion and extension of lumbar spine somewhat guarded secondary to pain, deep tendon reflexes normal, strength in upper and lower extremities [5/5], [abnormal gait noted] Neurological: speech clear, executive chef equal, no gross sensory deficits Assessment:: Degenerative disc disease lumbar spine with lumbar radiculopathy along with multiple compression fractures, status post kyphoplasty Plan:: We will send the patient for psychological evaluation to determine if she is an appropriate candidate for an intrathecal pain pump trial. I will follow-up with her after this reassess her symptoms at that time she is been instructed to call the office if she has any issues prior to her next appointment. Dr. Robledo has reviewed this note and agrees with this plan of care. This note was dictated using voice recognition software and may contain errors or omissions [facility] History I have reviewed the patient's past medical history: Yes Medical History: Reports:: Anxiety, Depression, Gastroesophageal Reflux Disease(GERD), Hyperlipidemia, Hypertension, Osteoporosis, Urinary Tract Infection Denies:: Cancer, Diabetes Mellitus Type 1, Diabetes Mellitus Type 2, Internal Pacemaker, Lung Disease, MRSA, Seizures *Have you ever received a pneumonia vaccine?: Yes *Have you received a flu vaccine this season?: Yes Other Medical History: Reports: Arthritis, Hypothyroidism, Osteoporosis, Thyroid Disease, Other. Denies: Blood Transfusion Reaction Other Surgeries: Yes: Appendectomy, Colonoscopy, EGD, Thyroidectomy, Tubal Ligation, Other. No: Pacemaker Amputation: No Fractures: No - *Social History Smoking Status: Never smoker Alcohol Intake: never Substance Use Type: denies use *Occupational Status:: other Housing: house Household Members: spouse *Travel in the last 8 weeks: None - Psychiatric History Pschychiatric History:: Reports:: Anxiety, Depression Family Hx:: Diabetes, Heart Attack
== END ==
PROVIDERS: PCP Internal Medicine Adolescent Medicine; Visit Provider Clinical Nurse Specialist Family Health
DX: M51.16 Intervertebral disc disorders with radiculopathy, lumbar region (principal); Z98.890 Other specified postprocedural states; E78.5 Hyperlipidemia, unspecified; I10 Essential (primary) hypertension; M81.0 Age-related osteoporosis without current pathological fracture; F32.9 Major depressive disorder, single episode, unspecified; F41.9 Anxiety disorder, unspecified; M19.90 Unspecified osteoarthritis, unspecified site; E03.9 Hypothyroidism, unspecified
CPT/HCPCS: 99212

== ENCOUNTER → 2019-10-05 10:56 | Outpatient (CLI) | payer OTHER, SELFPAY ==
[2019-10-05 14:10] LABS: Alanine Aminotransferase 23 U/L (12-78); Albumin Level 3.6 gm/dL (3.4-5.0); Albumin/Globulin Ratio 1.2 (1.1-1.8); Alkaline Phosphatase 86 U/L (46-116); Aspartate Amino Transferase 25 U/L (15-37); Bilirubin,Total 0.4 mg/dL (0.2-1.0); Blood Urea Nitrogen 20 mg/dL (7-18); Calcium 8.2 mg/dL (8.5-10.1); Carbon Dioxide 24 mmol/L (21.0-32.0); Chloride 108 mmol/L (98-107); Creatinine,Serum 0.58 mg/dL (0.55-1.02); Estimated Glomerular Filt Rate 106 ml/min (>60); GFR (African American) 128 ML/MIN (>60); Globulin 3.1 gm/dl (1.3-3.2); Glucose 98 mg/dL (74-106); Sodium 143 mmol/L (136-145); Thyroid Stimulating Hormone 0.96 uIU/ml (0.358-3.740); Total Protein,Serum 6.7 gm/dL (6.4-8.2)
[2019-10-06 10:49] LABS: Vitamin D 25 Hydroxy 26.1 ng/mL (30.0-100.0)
[2019-10-07 16:58] LABS: Calcium, Ionized 4.9 mg/dL (4.5-5.6); Parathyroid Hormone Intact 30 pg/mL (15-65)
== END ==
PROVIDERS: Visit Provider Internal Medicine Adolescent Medicine
DX: M81.0 Age-related osteoporosis without current pathological fracture (principal); E03.9 Hypothyroidism, unspecified
CPT/HCPCS: 36415; 80053; 82330; 82652; 83970; 84443

== ENCOUNTER → 2019-10-08 12:53 | Outpatient (CLI) | payer OTHER, SELFPAY ==
--- NOTE | 2019-10-08 14:16 | XR_ITS ---
PROCEDURE: XR DEXA AXIAL SKELETON CLINICAL HISTORY: OSTEOPOROSIS COMPARISON: No exams were available for comparison FINDINGS: Left femoral neck density is 031 grams/centimeters sq with a T-score of -3 8 consistent osteoporosis. Total density of the right hip is 0 2 grams/centimeters squared consistent osteoporosis with a T-score of -3.6. The L1-L4 density has a T-score -2 2. IMPRESSION: Osteoporosis with high fracture risk. Treatment advised. Suggest follow-up exam in 1 year. Dictated by: Brennon Collado MD 10/08/2019 17:12 Electronically signed by Brennon Collado MD in [place] 10/08/2019 17:12
== END ==
PROVIDERS: PCP Internal Medicine Adolescent Medicine; Visit Provider Internal Medicine Adolescent Medicine
DX: M81.0 Age-related osteoporosis without current pathological fracture (principal)
CPT/HCPCS: 77080

== ENCOUNTER → 2019-12-13 09:48 | Outpatient (CLI) | payer OTHER, SELFPAY ==
--- NOTE | 2019-12-21 09:20 | PC.NURSE ---
pATIENT HERE FOR pULMONARY fUNCTION tEST - BUT UNABLE TO COMPLETE TEST - THEREFORE NO CHARGE....
== END ==
PROVIDERS: PCP Internal Medicine Adolescent Medicine; Visit Provider Nurse Practitioner Family
DX: R06.09 Other forms of dyspnea (principal)

== ENCOUNTER → 2020-01-20 16:15 | Outpatient (CLI) | payer MEDICAID, SELFPAY ==
--- NOTE | 2020-01-20 16:22 | XR_ITS ---
PROCEDURE: XR FOOT WT BEARING LT 3V CLINICAL INDICATION: pain COMPARISON: FTL3 FOOT-LT-3 VIEWS from 02/21/2014 FTL3 FOOT-LT-3 VIEWS from 03/02/2014 FTL3 FOOT-LT-3 VIEWS from 03/23/2014 FTL3 FOOT-LT-3 VIEWS from 03/09/2015 FINDINGS: There are mild osteoarthritic changes of the 1st metatarsophalangeal joint with minimal hallux valgus and soft tissue swelling medially with some faint calcification at the medial aspect of the joint space which could be related to gouty tophi. There are old fractures of the 2nd and 4th metatarsals. There are degenerative changes of the metatarsal tarsal joint. Other findings:None. IMPRESSION: Soft tissue swelling with soft tissue calcifications at the medial aspect of the 1st MTP joint possibly due to gouty tophi. Degenerative changes with old fractures of the 2nd and 4th metatarsals Dictated by: Brennon Collado MD 01/20/2020 21:30 Electronically signed by Brennon Collado MD in [place] 01/20/2020 21:30
--- NOTE | 2020-01-20 16:22 | XR_ITS ---
PROCEDURE: XR ANKLE WT BEARING LT MIN 3V CLINICAL INDICATION: pain COMPARISON: ANKL3 ANKLE-LT-3 VIEWS from 03/09/2015 ANKL3 ANKLE-LT-3 VIEWS from 03/16/2015 ANKL3 ANKLE-LT-3 VIEWS from 03/07/2016 XR FOOT WT BEARING LT 3V from 01/20/2020 FINDINGS: There is an old distal tibia and fibular fracture. No acute fracture or dislocation. Joint space is well preserved. The talar dome is unremarkable and the ankle mortise appears intact. There are mild degenerative changes at the tibiotalar joint. IMPRESSION: No acute finding. Old distal tib fib fracture with mild degenerative changes Dictated by: Brennon Collado MD 01/20/2020 21:29 Electronically signed by Brennon Collado MD in [place] 01/20/2020 21:29
== END ==
PROVIDERS: PCP Internal Medicine Adolescent Medicine; Visit Provider Podiatrist
DX: M79.672 Pain in left foot (principal)
CPT/HCPCS: 73610; 73630

== ENCOUNTER → 2020-01-24 11:03 | Outpatient (POV) | payer MEDICAID, SELFPAY ==
[2020-01-24 11:32] VITALS: BP 92/72; PULSE 84; RESP 18; TEMP 36.6; O2SAT 98; BMI 24.3
--- NOTE | 2020-01-24 11:41 | HMH.PAINSOAP ---
[facility] Pain Management SOAP Note Subjective:: Patient is a pleasant 59-year-old white female who presents today for follow-up. Patient was set to have a trial for intrathecal pain pump however she had not additional questions in regards to it. She rates her pain an 8 out of 10. In her low back legs and hips. She has difficulty in regards to pain control secondary to her cerebral palsy and subsequent restrictions with her mobility. She and I had a long discussion in regards to what intrathecal therapy entails. I do believe intrathecal therapy would be beneficial for her. She is not on any anticoagulation therapy. She has multiple compression fractures. She is had multiple injections with some short-term relief. Patient's was also in the room at this time and we discussed risks and benefits of intrathecal therapies. ROS General: no recent weight change, no fever, no sleep disturbances Respiratory: no cough, no shortness of air, no recurring pulmonary infections Cardiovascular/Peripheral Vascular: No chest pain, No palpitations, no edema, no shortness of breath. Gastrointestinal: no new onset incontinence, normal bowel movements reported Genitourinary: no new onset incontinence Musculoskeletal: Back pain, leg pain Psychiatric: normal mood/ affect Neurological: [denies new onset weakness in extremities], [denies new onset balance issues] Objective:: Physical Exam General: Alert and oriented x3, no acute distress, pleasant and cooperative, [on room air] Lungs: Resps E/U, Symmetrical chest expansion, Eyes: PERRL Musculoskeletal: Flexion and extension of lumbar spine somewhat guarded secondary to pain, deep tendon reflexes normal, strength in upper and lower extremities [5/5], [abnormal gait noted] Neurological: speech clear, supervisor tumblers equal, no gross sensory deficits Assessment:: Degenerative disc disease lumbar spine with lumbar radiculopathy, cerebral palsy, multiple compression fractures, kyphoplasty Plan:: We will move forward with an intrathecal pain pump trial I will follow-up with her after this reassess her symptoms at that time she has been instructed to call the office if she has any issues prior to her next appointment. Dr. Robledo has reviewed this note and agrees with this plan of care. This note was dictated using voice recognition software and may contain errors or omissions [facility] History I have reviewed the patient's past medical history: Yes Medical History: Reports:: Anxiety, Depression, Gastroesophageal Reflux Disease(GERD), Hyperlipidemia, Hypertension, Osteoporosis, Urinary Tract Infection Denies:: Cancer, Diabetes Mellitus Type 1, Diabetes Mellitus Type 2, Internal Pacemaker, Lung Disease, MRSA, Seizures *Have you ever received a pneumonia vaccine?: Yes *Have you received a flu vaccine this season?: Yes Other Medical History: Reports: Arthritis, Hypothyroidism, Osteoporosis, Thyroid Disease, Other. Denies: Blood Transfusion Reaction Other Surgeries: Yes: Appendectomy, Colonoscopy, EGD, Thyroidectomy, Tubal Ligation, Other. No: Pacemaker Amputation: No Fractures: No - *Social History Smoking Status: Never smoker Alcohol Intake: never Substance Use Type: denies use *Occupational Status:: other Housing: house Household Members: spouse *Travel in the last 8 weeks: None - Psychiatric History Pschychiatric History:: Reports:: Anxiety, Depression Family Hx:: Diabetes, Heart Attack
== END ==
PROVIDERS: PCP Internal Medicine Adolescent Medicine; Visit Provider Clinical Nurse Specialist Family Health
DX: M51.16 Intervertebral disc disorders with radiculopathy, lumbar region (principal); G80.9 Cerebral palsy, unspecified; M80.00XA Age-related osteoporosis with current pathological fracture, unspecified site, initial encounter for fracture; Z98.890 Other specified postprocedural states; Z09 Encounter for follow-up examination after completed treatment for conditions other than malignant neoplasm
CPT/HCPCS: 99212

== ENCOUNTER → 2020-02-11 08:31 | Day surgery (SDC) | payer MEDICAID, SELFPAY ==
[2020-02-11] VITALS (8 sets, daily range): BP systolic 92–124; BP diastolic 53–82; PULSE 70–92; RESP 18–20; O2SAT 95–97; BMI 24.3
--- NOTE | 2020-02-11 09:24 | HMH.PMPROC ---
- Procedure Date: 02/11/20 Time: 09:24 Anesthesiologist:: Aneesh Robledo MD Complications:: None Pre-procedure Diagnosis:: Degenerative disc disease of the lumbar spine with lumbar radiculopathy symptoms, cerebral palsy with multiple compression fractures throughout the lumbar spine status post kyphoplasty and increasing low back pain Post-procedure Diagnosis:: Same Indications for Procedure:: This patient is a pleasant 59-year-old white female who we have been treating for low back pain with degenerative disc disease of lumbar spine with lumbar radiculopathy symptoms and multiple compression fractures throughout the lumbar spine with increasing low back pain. She has had kyphoplasty however due to her multiple compression fractures uncontrolled by conservative measures I believe she would be a candidate for intrathecal therapy. She has failed all previous conservative therapy including oral medications and injections and she is not a candidate for further kyphoplasty or further surgery. Procedure Details:: Pain pump trial Informed consent was obtained and the risk and benefits of the procedure was explained to the patient. The patient was taken to the procedure room and placed prone on the procedure table. Patient was prepped and draped in sterile fashion. C-arm fluoroscopy was used to view the lumbar spine. The skin and subcutaneous tissues were anesthetized using lidocaine. I placed a 18-gauge spinal needle into the L4-5 interspace and advanced until clear CSF was obtained. After this intrathecal catheter was inserted and advanced very easily to the L1 vertebral body. The needle was withdrawn. We were able to freely withdraw clear CSF through the catheter. We then injected intrathecal fentanyl single shot bolus of 25 mcg followed by saline and followed by the previous CSF that was withdrawn. The needle and catheter were then removed and a Band-Aid was placed. Patient tolerated the procedure well with no complications. We reevaluated the patient after 30 minutes to 1 hour. She was also reassessed by physical therapy. Patient did very well with physical therapy and she had 90 to 100% relief of her pain symptoms. She increased her preprocedure physical therapy ratings by 100%. She was much more functional. She was proceed with permanent placement. She did have some itching however this was better with Benadryl. We will plan on permanent placement of intrathecal pain pump with intrathecal morphine 5 mg/mL to start at 0.25 mg/day. Plan and Disposition:: We will plan on permanent placement of intrathecal pain pump. We will have her see Dr. Momin for evaluation of permanent pump. We will plan on morphine 5 mg per ml to start at 0.25 mg/day.
--- NOTE | 2020-02-11 11:11 | PC.NURSE ---
1015-physical therapist at bedside for assessment
--- NOTE | 2020-02-11 11:11 | PC.NURSE ---
1030-Dr. ferguson at bedside.
== END ==
PROVIDERS: PCP Internal Medicine Adolescent Medicine; Visit Provider Anesthesiology
DX: M51.16 Intervertebral disc disorders with radiculopathy, lumbar region (principal); G80.9 Cerebral palsy, unspecified; Z98.890 Other specified postprocedural states; M80.00XA Age-related osteoporosis with current pathological fracture, unspecified site, initial encounter for fracture; I10 Essential (primary) hypertension; F41.9 Anxiety disorder, unspecified; F32.9 Major depressive disorder, single episode, unspecified; E89.0 Postprocedural hypothyroidism; Z90.49 Acquired absence of other specified parts of digestive tract
CPT/HCPCS: 62323; 96365

== ENCOUNTER 2020-02-18 14:00 | Outpatient (RCR) | payer MEDICAID, SELFPAY ==
--- NOTE | 2020-01-25 14:17 | HMH.PTOPEV ---
PT Outpatient Evaluation Rehab PT Outpatient Evaluation Start: 01/25/20 13:21 Freq: Status: Active Protocol: Document 01/25/20 13:22 ARABELLA (Rec: 01/25/20 14:17 ARABELLA [id number]) Electronically Signed By Modesto Howe, PT 01/25/20 13:22 Outpatient Therapy Subjective History Subjective History Pt reports h/o chronic L ankle pain and instability secondary to CP and L ankle fx ~5 yrs ago. Pt reports mostly lateral ankle and dorsal surface L foot pain, and reports improved stability w/ use of either walking boot or lace-up fig 8 brace on L. Chief Complaint Pain,Gives out/Unstable, Weakness Symptom Type Ache,Dull Symptoms Relieved By Rest/Positioning,Heat Symptoms Aggravated By Standing,Walking Prior Functional Limitations Standing,Walking,Stairs Current Functional Limitations Standing,Walking,Stairs Symptom Description Constant but Variable Level of pain today (0-10) 6 Pain scale - at its best (0-10) 6 Pain scale - at its worst (0-10) 8 Ankle/Foot Eval Gait Observation General Gait Pattern Observation Shuffling Step Palpation Tenderness left Ankle/Foot Palpation Findings Tenderness Ankle/Foot Palpation Overall Comment 2-3/4 peroneal tendons, sinus tarsi ROM Ankle/Foot Dorsiflexion w/Knee Extended 0-10 Active Range Motion (degrees) Ankle/Foot Plantar Flexion Active Range 0-50 of Motion (degrees) Ankle/Foot Eversion Active Range of 0-25 Motion (degrees) Ankle/Foot Inversion Active Range of 0-40 Motion (degrees) Ankle/Foot ROM Limitations Pain MMT Ankle Dorsiflexion Strength Grade 4 Good Ankle Plantarflexion Strength Grade 4- Good- Foot Eversion Strength Grade 4 Good Foot Inversion Strength Grade 4- Good- Special Tests Talar Tilt Test Positive Left Outpatient Therapy Assessment Impairments Problems/Impairmments Palpation Tenderness,Impaired Range of Motion,Impaired Strength,Impaired Gait Pattern ,Impaired Walking,Impaired Standing,Impaired Stair Climbing,Subjective C/O Pain, Impaired Self Care/Self Management Prognosis Rehab Potential Good Clinical Impression Consistent with Diagnosis Yes Short Term Goals Number of Weeks 4 Decreased Palpation Tenderness Yes:
== END 2020-02-18 14:05 | disposition home or self-care (01) ==
LOC: PT 14:00
PROVIDERS: PCP Internal Medicine Adolescent Medicine; Visit Provider Podiatrist
DX: G80.9 Cerebral palsy, unspecified (principal); M25.372 Other instability, left ankle; R29.898 Other symptoms and signs involving the musculoskeletal system
CPT/HCPCS: 97010; 97014; 97033; 97035; 97110; 97112; 97163; G0283

== ENCOUNTER → 2020-02-22 11:24 | Outpatient (CLI) | payer MEDICAID, SELFPAY ==
[2020-02-22 12:08] LABS: Basophils # 0.1 K/mm3 (0-0.2); Eosinophils # 0.2 K/mm3 (0.0-0.4); Eosinophils % 3.8 % (0.1-12.0); Lymphocytes # 1.1 K/mm3 (0.7-4.5); Lymphocytes % 21.6 % (10-50); Mean Corpuscular HGB Conc 32.6 g/dL (31.8-35.4); Mean Corpuscular Hemoglobin 25.9 pg (27.0-31.2); Mean Corpuscular Volume 79.4 fl (81-99); Mean Platelet Volume 8.4 fl (7.4-10.4); Monocytes # 0.2 K/mm3 (0.1-1.0); Monocytes % 4.3 % (1.7-9.3); Neutrophils # 3.4 K/mm3 (1.8-7.8); Neutrophils % 69.4 % (37.0-80.0); Platelet Count 153 K/mm3 (142-424); Red Blood Count 5.04 M/mm3 (4.20-5.40); Red Cell Distribution Width 15.5 % (11.5-17.5); White Blood Count 4.9 K/mm3 (4.8-10.8)
[2020-02-22 12:46] LABS: Chloride 109 mmol/L (98-107); Sodium 139 mmol/L (136-145)
[2020-02-22 12:49] LABS: Blood Urea Nitrogen 18 mg/dl (7-17); Calcium 8.9 mg/dl (8.4-10.2); Carbon Dioxide 20 mmol/L (22.0-30.0); Estimated Glomerular Filt Rate 102 ml/min (>60); GFR (African American) 123 ML/MIN (>60); Glucose 100 mg/dl (74-100)
[2020-02-22 13:45] LABS: Coronavirus 19 IgG Antibody Negative (Negative); Coronavirus 19 IgM Antibody Negative (Negative)
[2020-02-26 08:18] LABS: Chlordiazepoxide <0.1 ug/mL (0.1-0.9)
[2020-02-26 09:37] LABS: Acetone Negative % (0.000-0.010); Butalbital <1 ug/mL (1-10); Diazepam <0.1 ug/mL (0.1-0.9); Ethanol Negative % (0.000-0.010); Isopropanol Negative % (0.000-0.010); Pentobarbital <1 ug/mL (1-5)
== END ==
PROVIDERS: Visit Provider Anesthesiology
DX: Z01.818 Encounter for other preprocedural examination (principal); M51.36 Other intervertebral disc degeneration, lumbar region
CPT/HCPCS: 36415; 80048; 80306; 85025; 86328

== ENCOUNTER 2020-02-23 08:24 | Day surgery (SDC) | payer MEDICAID, SELFPAY ==
--- NOTE | 2020-02-21 10:06 | SUR.PREOP ---
02/21/2020 @ 1000--PHONE CALL MADE TO PATIENT. PATIENT UNDERSTANDS THAT LAB WORK AND COVID TESTING NEEDS TO BE COMPLETED @ 1130 ON 02/22/2020. PATIENT UNDERSTANDS IF LAB WORK AND COVID-19 TESTS ARE NOT COMPLETED BY 12PM ON THAT DATE, THE SURGERY SCHEDULED WILL BE CANCELLED AND RESCHEDULED FOR ANOTHER TIME.
[2020-02-21 14:07] VITALS: BMI 24.5
[2020-02-23 08:45] VITALS: BP 139/83; PULSE 105; RESP 18; TEMP 36.4; O2SAT 94
[2020-02-23 09:01] LABS: Microscopic, Urine URINE MICROSCOPIC (MICROSCOPIC)
[2020-02-23 09:03] LABS: Appearance,Urine CLEAR (Clear); Bilirubin,Urine Negative (Negative); Blood, Urine TRACE-L (Negative); Color,Urine YELLOW (Yellow); Glucose,Urine (UA) Negative (Negative); Ketones,Urine Negative (Negative); Leukocyte Esterase,Urine 1+ (Negative); Nitrate,Urine POSITIVE (Negative); Protein,Urine TRACE (Negative); Specific Gravity, Urine 1.015 (1.005-1.030); Urobilinogen,Urine 0.2 EU/dl (0.2)
--- NOTE | 2020-02-23 09:08 | HMH.PMCON ---
Assessment and Plan - Assessment and plan all Dx Assessment and Plan for all problems:: Impression-chronic back pain, osteoarthritis, osteoporosis, cerebral palsy Plan-placement of intrathecal catheter and pain pump generator today HPI - Data of Consult Patient: new to practice Consult date: 02/23/20 Requesting Physician: Aneesh Robledo MD Primary Care Provider: Luis Henderson MD - Consult Narrative Reason for consult: Back pain History of present illness: Ms. Carey is a 59 year old female with cerebral palsy with chronic back pain and lower extremity pain. She had a kyphoplasty in the past. She comes in today having a successful pain pump trial for placement of that system CC: Aneesh Robledo MD [facility] History Medical History: Reports:: Anxiety, Depression, Gastroesophageal Reflux Disease(GERD), Hyperlipidemia, Hypertension, Osteoporosis, Urinary Tract Infection Denies:: Cancer, Diabetes Mellitus Type 1, Diabetes Mellitus Type 2, Internal Pacemaker, Lung Disease, MRSA, Seizures *Have you ever received a pneumonia vaccine?: No *Have you received a flu vaccine this season?: Yes Other Medical History: Reports: Arthritis, Hypothyroidism, Osteoporosis, Thyroid Disease, Other. Denies: Blood Transfusion Reaction Comment:: Illnesses-cerebral palsy, anxiety depression, hypothyroidism, GERD, arthritis, osteoporosis Other Surgeries: Yes: Appendectomy, Colonoscopy, EGD, Thyroidectomy, Tubal Ligation, Other. No: Pacemaker Amputation: No Fractures: Yes (back) Comment: Operations-appendectomy, thyroidectomy, tubal ligation, kyphoplasty - *Social History Educational Level: Attended High School Smoking Status: Never smoker Alcohol Intake: never Substance Use Type: denies use *Occupational Status:: disabled Housing: house Household Members: spouse *Travel in the last 8 weeks: None - Psychiatric History Pschychiatric History:: Reports:: Anxiety, Depression Family Hx:: Cancer, Coronary Artery Disease, Diabetes, Heart Attack, Hyperlipidemia, Hypertension, Thyroid Disorder, Mental illness Review of Systems - Review of Systems Review of systems:: pertinent systems reviewed and negative unless documented below Meds Home Medications Medication Instructions Recorded Confirmed Type baclofen 20 mg tablet 20 mg PO Q8H 09/13/17 02/23/20 History clotrimazole-betamethasone 1 1 applic TOPICAL BID 09/13/17 02/23/20 History %-0.05 % topical cream fluticasone propionate 50 50 mcg INTRANASAL ONCE 09/13/17 02/23/20 History mcg/actuation nasal spray,suspension omeprazole 20 mg capsule,delayed 20 mg PO ONCE 09/13/17 02/23/20 History release albuterol sulfate 90 mcg/actuation 2 puff INHALATION QID 11/04/18 02/23/20 History aerosol inhaler cyanocobalamin (vitamin B-12) 1,000 mcg IM QMONTH 11/04/18 02/23/20 History 1,000 mcg/mL injection solution estradiol 1 g VAGINAL QWEEK 11/04/18 02/23/20 History linaclotide 72 mcg capsule 72 mcg PO DAILY 11/04/18 02/23/20 History gabapentin 100 mg capsule 100 mg PO QHS #30 cap 04/08/19 02/23/20 History Ibuprofen [Ibuprofen 600mg 600 mg PO Q6HP PRN #30 tab 06/10/19 02/23/20 Rx Tablet] Methenamine Hippurate 1 gm PO TID 06/14/19 02/23/20 History urea 40 % topical cream 1 applic TOPICAL BID #60 applic 07/12/19 02/23/20 Rx alendronate 10 mg tablet 1 mg PO DAILY 10/11/19 02/23/20 History cholecalciferol (vitamin D3) 50 1,000 unit PO DAILY tab 10/11/19 02/23/20 History mcg (2,000 unit) tablet ergocalciferol (vitamin D2) 1,250 50,000 unit PO QWEEK #4 cap 10/11/19 02/23/20 History mcg (50,000 unit) capsule levothyroxine 125 mcg tablet 150 mcg PO DAILY #90 tab 10/11/19 02/23/20 History lorazepam 0.5 mg tablet 0.5 mg PO BID PRN #60 tab 01/25/20 02/23/20 Rx sertraline 100 mg tablet 200 mg PO DAILY #60 tab 02/17/20 02/23/20 Rx Allergies Allergy/AdvReac Type Severity Reaction Status Date / Time metoclopramide [From REGLAN] Allergy Mild I-RASH Verified 02/23/20 08:37 Sulfa (Sulfon
[2020-02-23 09:25] LABS: Bacteria,Urine 1+ /lpf; Squamous Epithelial Cell,Urine Occasional #/hpf (0-5); WBC,Urine 20-50 #/hpf (0-3)
--- NOTE | 2020-02-23 09:30 | PC.NURSE ---
lot: [id number] exp: 11/05/20
--- NOTE | 2020-02-23 10:00 | P.PN_ITS ---
[facility] Anesthesia Checklist - Patient Identification Patient Identification: Arm Band - Structural Data Admitted From: Home Planned Operative Procedure/s: intrathecal pain pump catheter and generator placement Consent for Planned Operative Procedure(s) Verified: Yes Verified Documents: Surgical Consent, History and Physical - NPO Status Verified Time NPO: 00:00 - Additional verifications Anesthesia Reactions: No Hx Blood Transfusions: No Blood Transfusion Reaction: No - Airway Assessment C-Spine Mobility Assessed: Yes (mp2) TMJ Mobility Assessed: Yes Dentition: Poor Dentition - Neurological Assessment Level of Consciousness: Awake, Alert - Anesthesia Plan Anesthesia Risk discussed: Yes Anesthesia Plan: Verified ASA Class: III Anesthesia Type: MAC [facility] History I have reviewed the patient's past medical history: Yes Medical History: Reports:: Anxiety, Depression, Gastroesophageal Reflux Disease(GERD), Hyperlipidemia, Hypertension, Osteoporosis, Urinary Tract Infec tion Denies:: Cancer, Diabetes Mellitus Type 1, Diabetes Mellitus Type 2, Internal Pacemaker, Lung Disease, MRSA, Seizures *Have you ever received a pneumonia vaccine?: No *Have you received a flu vaccine this season?: Yes Other Medical History: Reports: Arthritis, Hypothyroidism, Osteoporosis, Thyroid Disease, Other. Denies: Blood Transfusion Reaction Anesthesia experience/problems:: nac Other Surgeries: Yes: Appendectomy, Colonoscopy, EGD, Thyroidectomy, Tubal Ligation, Other. No: Pacemaker Amputation: No Fractures: Yes (back) - *Social History Educational Level: Attended High School Smoking Status: Never smoker Alcohol Intake: never Substance Use Type: denies use *Occupational Status:: disabled Housing: house Household Members: spouse *Travel in the last 8 weeks: None - Psychiatric History Pschychiatric History:: Reports:: Anxiety, Depression Family Hx:: Cancer, Coronary Artery Disease, Diabetes, Heart Attack, Hyperlipidemia, Hypertension, Thyroid Disorder, Mental illness
[2020-02-23 11:16] VITALS: BP 131/90; PULSE 129; RESP 16; TEMP 36.7; O2SAT 96
--- NOTE | 2020-02-23 11:18 | P.OP_ITS ---
Date of procedure: 02/23/20 Pre-op Diagnosis:: Degenerative disc disease of the lumbar spine with radiculopathy, osteoarthritis and osteoporosis, cerebral palsy Post-op Diagnosis:: Same Procedure performed:: Placement of intrathecal pain pump generator Surgeon:: Toi Momin MD SPECIAL TRACKWORK BLACKSMITH:: Eliseo Caceres, Luis Russo, Shashi Dimas, Vinnie Tran, Other Anesthesia: MAC Estimated blood loss (mL): 5 Operative findings:: Not applicable Operative note:: Patient was placed prone on the operating room table and her back and flank was prepped and draped in sterile fashion. Once adequate IV sedation was obtained by anesthesia and local anesthesia utilizing 1% Xylocaine with epinephrine, a paraspinal incision was made by Dr. Hinds which an intrathecal catheter was passed into the intrathecal space to the area desired by Dr. myers. The catheter was sutured to the paraspinal fascia with fixation devices and 2-0 Prolene russell tures. Right flank incision was then made under which made a pocket for placement of the reservoir. Both incisions treated with antibiotic solution. Utilizing the tunneling device the catheter was passed from the paraspinal fascia to the pocket incision. Catheter then fixed to the generator which was placed in the pocket. Generator sutured to the fascia with 2-0 Prolene suture. CSF was aspirated from the generator noting patency of the system at this point the subcutaneous tissues were closed with interrupted stitches of 2-0 Vicryl. The skin was then closed with interrupted stitches of 4-0 nylon. Wound vacs and a binder applied to the wound. The patient tolerated the procedure well and was taken to the recovery room in stable condition. Upon recovery the patient will be discharged home and follow-up in 1 week for removal of the wound VAC and in 2 weeks remove the sutures. Antibiotics x1 week per protocol. The patient again tolerated the procedure well Condition: stable Disposition: PACU Complications:: None
--- NOTE | 2020-02-23 11:27 | P.OP_ITS ---
Date of procedure: 02/23/20 Pre-op Diagnosis:: Degenerative disc disease of lumbar spine with lumbar radiculopathy symptoms, cerebral palsy with multiple compression fractures of lumbar spine status post kyphoplasty with increasing low back pain Post-op Diagnosis:: Same Procedure performed:: Intrathecal catheter placement with tunneling for permanent intrathecal pain pump Surgeon:: Aneesh Robledo MD COMPUTER PROGRAMMER:: Luis Russo Anesthesia: MAC Estimated blood loss (mL): 5 Clinical Note:: This patient is a pleasant 59-year-old white female who we have been treating for low back pain with degenerative disc disease of lumbar spine with lumbar radiculopathy symptoms and multiple compression fractures throughout the lumbar spine with increasing low back pain. She does have a history of cerebral palsy. She has had kyphoplasty's due to her multiple compression fractures. Her pain is uncontrolled by all conservative measures including injections, oral medications previous kyphoplasty and she is not a surgical candidate or candidate for any further kyphoplasty. She had a successful intrathecal pump trial with 80 to 90% relief of her pain symptoms. She is also had a successful psychological evaluation. She presents for permanent placement of intrathecal pain pump today. Operative findings:: None Operative note:: Pain pump placement Informed consent was obtained and the risk and benefits of the procedure were explained to the patient. The patient was taken to the operating room. Patient was prepped and draped in sterile fashion. C-arm fluoroscopy was used to view the lumbar spine. The skin and subcutaneous tissues were anesthetized using lidocaine adjacent to the L4-5 and L5-S1 interspace. I made an incision and dissected down to the lumbar paraspinous fascia. A 14-gauge spinal needle was inserted and advanced into the L4-5 interspace until clear CSF was obtained. After this intrathecal catheter was inserted and advanced very easily to the T12 vertebral body. The stylette of the catheter and the needle were withdrawn. We were able to freely withdraw clear CSF through the catheter. The catheter was secured to the fascia with 2 anchoring devices and 2-0 Prolene. I prepared the pump with 20 mL of intrathecal morphine 5 mg/mL while Dr. Momin prepared the pump pocket. I tunneled the catheter from the back to the pump pocket and attached the catheter to the pump. The pump was secured to the fascia with 2-0 Prolene. We were able to freely withdraw clear CSF through the side-port. Both incisions were then closed with 2-0 Vicryl followed by 4-0 nylon. A wound VAC was placed over both incisions. The patient was placed in an abdominal binder. Patient was taken to recovery in stable condition. Patient was given a back brace to help with stability of the spine and also help relieve pain in the low back. Patient tolerated the procedure well with no complications. The pump was interrogated and started at 0.25 mg/day of intrathecal morphine. Patient was discharged home neurologically intact and with good relief of pain symptoms. Plan and disposition: We will follow-up with this patient in 1 week for wound check and reprogramming. We will follow-up in 2 weeks for suture removal. If the patient has any problems or questions they are to call us in the pain clinic. Condition: stable Disposition: PACU Complications:: None
[2020-02-23 11:31] VITALS: BP 162/73; PULSE 91; RESP 16; O2SAT 97
[2020-02-23 11:46] VITALS: BP 118/71; PULSE 85; RESP 16; O2SAT 97
[2020-02-23 12:01] VITALS: BP 141/72; PULSE 94; RESP 16; O2SAT 98
[2020-02-23 12:31] VITALS: BP 127/70; PULSE 93; RESP 16; O2SAT 98
== END 2020-02-23 12:31 | disposition home or self-care (01) ==
LOC: OR 08:24
PROVIDERS: Nurse Anesthetist, Certified Registered; PCP Internal Medicine Adolescent Medicine; Visit Provider Anesthesiology
PROC: (CPT 62362; principal; 2020-02-23 10:00)
DX: M51.16 Intervertebral disc disorders with radiculopathy, lumbar region (principal); G80.9 Cerebral palsy, unspecified; M47.26 Other spondylosis with radiculopathy, lumbar region; M80.88XA Other osteoporosis with current pathological fracture, vertebra(e), initial encounter for fracture; Z98.890 Other specified postprocedural states; F41.9 Anxiety disorder, unspecified; F32.9 Major depressive disorder, single episode, unspecified; I10 Essential (primary) hypertension; E78.5 Hyperlipidemia, unspecified; K21.9 Gastro-esophageal reflux disease without esophagitis; Z88.2 Allergy status to sulfonamides; Z88.8 Allergy status to other drugs, medicaments and biological substances
CPT/HCPCS: 62362; 63650; 81001; 87086; 87088; 87186; 96374; C1755; C1772; J3370

== ENCOUNTER 2020-02-24 20:56 | Emergency (ER) | payer MEDICAID, SELFPAY ==
[2020-02-24 21:09] VITALS: BP 143/79; PULSE 100; RESP 16; TEMP 36.9; O2SAT 95; BMI 24.7
--- NOTE | 2020-02-24 21:42 | HMH.EDGENADL ---
ED Disposition Clinical Impression: Post-operative nausea and vomiting Disposition: Home, Self-Care Condition on Discharge: Good Instructions: DI for Nausea -- Adult Additional Instructions: contact pain center in am Referrals: Luis Henderson MD [Primary Care Provider] - - Critical Care Critical Care Time: No Attestation: On 02/24/20, the high probability of a clinically significant, sudden or life threatening deterioration of the following system(s) required my full and direct attention, intervention and personal management. The time I documented below is in addition to time spent performing reported procedures but includes the following listed in this critical care notation. Medical Decision Making - Medical Records Medical records reviewed: Yes: I reviewed the patient's medical records. - Claus Inquiry Pt receiving controlled substance: No Vital Signs: 02/24/20 21:09 02/24/20 22:17 Temperature 98.4 F Temperature Source Oral Pulse Rate [Right Brachial] 100 H 105 H Respiratory Rate 16 16 Blood Pressure [Right Arm] 143/79 H 136/70 Blood Pressure Mean [Right Arm] 100 92 Blood Pressure Source [Right Arm] Automatic Cuff Automatic Cuff Blood Pressure Position [Right Arm] Sitting Sitting 02 Sat by Pulse Oximetry 95 95 Oxygen Delivery Method Room Air Room Air - Lab Data Lab results reviewed: Yes: I reviewed the patient's lab results. Lab Results 02/24/20 21:30: Urine Color Yellow, Urine Appearance Clear, Urine pH 6.0, Ur Specific [place] >= 1.030, Urine Protein Negative, Urine Glucose (UA) Negative, Urine Ketones Trace, Urine Blood Negative, Urine Nitrate Negative, Urine Bilirubin Negative, Urine Urobilinogen 0.2, Ur Leukocyte Esterase Negative, Urine WBC 3-5, Ur Squamous Epith Cells 3-5, Urine Bacteria Trace 02/24/20 21:45: WBC 6.8 D, RBC 4.72, Hgb 12.0 L, Hct 36.9 L, MCV 78.1 L, MCH 25.3 L, MCHC 32.4, RDW 15.4, Plt Count 137 L, MPV 8.2, Neut % (Auto) 82.6 H, Lymph % (Auto) 11.1, Owen % (Auto) 4.8, Eos % (Auto) 1.1, Baso % (Auto) 0.4, Neut # (Auto) 5.6, Lymph # (Auto) 0.8, Owen # (Auto) 0.3, Eos # (Auto) 0.1, Baso # (Auto) 0.0 02/24/20 21:45: Sodium 134 L, Potassium 3.8, Chloride 107, Carbon Dioxide 23, Anion Gap 7.8, BUN 17, Creatinine 0.60, Estimated Creat Clear 65, Estimated GFR 102, Est GFR ( Amer) 123, Glucose 122 H, Calcium 8.3 L, Total Bilirubin 0.8, AST 29, ALT 20, Alkaline Phosphatase 87, Total Protein 7.0, Albumin 3.9, Globulin 3.1, Albumin/Globulin Ratio 1.3 02/24/20 21:45: Lactate 1.2 Result diagrams: 02/24/20 21:45 02/24/20 21:45 Orders (Tests/Meds): ED MEDICATIONS Discontinued Medications Generic Name Dose Route Start Last Admin Trade Name Freq PRN Reason Stop Dose Admin Ondansetron HCl 4 mg 02/24/20 22:03 02/24/20 22:06 Zofran 4mg/2ml Vial IV 02/24/20 22:04 4 mg ONCE ONE Administration ORDERS Category Date Time Status Blood Culture Stat Micro 02/24/20 21:45 Received - Physician Consults Physician Consulted: dr robledo Reason -: Pt condition General Adult HPI - General Chief complaint: Nausea/Vomiting/Diarrhea Stated complaint: Pain Pump 0617,chills,blured vison Time Seen by Provider: 02/24/20 21:42 Mode of Arrival: Ambulatory Source of Information: Patient, Medical Record Limitations: No Limitations Description of Symptoms (Recalled from ER Triage Doc. by RN): Patient reports she had a pain pump put in yesterday by Dr. Robledo for chronic back pain. Patient reports today around 1000 she started having some nausea, headache and chills. - History of Present Illness HPI narrative: pain pump placed yesterday and today had feeling of blurred vision and chills w/o fever - and savage Onset (ago): hour(s) Location: head Severity: moderate Associated symptoms: denies other symptoms - Related Data Home Medications Medication Instructions Recorded Confirmed baclofen 20 mg tablet 20 mg PO Q8H 09/13/17 02/23/20 clotrimazole-betamethasone 1 1 mandie
[2020-02-24 22:01] LABS: Microscopic, Urine URINE MICROSCOPIC (MICROSCOPIC)
[2020-02-24 22:06] LABS: Basophils % 0.4 % (0.1-2.0); Eosinophils # 0.1 K/mm3 (0.0-0.4); Eosinophils % 1.1 % (0.1-12.0); Hematocrit 36.9 % (37.0-47.0); Lymphocytes # 0.8 K/mm3 (0.7-4.5); Lymphocytes % 11.1 % (10-50); Mean Corpuscular HGB Conc 32.4 g/dL (31.8-35.4); Mean Corpuscular Hemoglobin 25.3 pg (27.0-31.2); Mean Corpuscular Volume 78.1 fl (81-99); Mean Platelet Volume 8.2 fl (7.4-10.4); Monocytes # 0.3 K/mm3 (0.1-1.0); Monocytes % 4.8 % (1.7-9.3); Neutrophils # 5.6 K/mm3 (1.8-7.8); Neutrophils % 82.6 % (37.0-80.0); Platelet Count 137 K/mm3 (142-424); Red Blood Count 4.72 M/mm3 (4.20-5.40); Red Cell Distribution Width 15.4 % (11.5-17.5); White Blood Count 6.8 K/mm3 (4.8-10.8)
[2020-02-24 22:07] LABS: Appearance,Urine CLEAR (Clear); Bilirubin,Urine Negative (Negative); Blood, Urine Negative (Negative); Color,Urine YELLOW (Yellow); Glucose,Urine (UA) Negative (Negative); Ketones,Urine TRACE (Negative); Leukocyte Esterase,Urine Negative (Negative); Nitrate,Urine Negative (Negative); Protein,Urine Negative (Negative); Specific Gravity, Urine >= 1.030 (1.005-1.030); Urobilinogen,Urine 0.2 EU/dl (0.2)
[2020-02-24 22:11] LABS: Chloride 107 mmol/L (98-107); Sodium 134 mmol/L (136-145)
[2020-02-24 22:12] LABS: Potassium 3.8 mmoL/L (3.5-5.1)
[2020-02-24 22:14] LABS: Alanine Aminotransferase 20 U/L (12-78); Albumin Level 3.9 g/dl (3.5-5.0); Albumin/Globulin Ratio 1.3 (1.1-1.8); Alkaline Phosphatase 87 U/L (38-126); Anion Gap 7.8 mEq/L (5-15); Aspartate Amino Transferase 29 U/L (14-36); Bilirubin,Total 0.8 mg/dl (0.2-1.3); Blood Urea Nitrogen 17 mg/dl (7-17); Carbon Dioxide 23 mmol/L (22.0-30.0); Creatinine Clearance Estimated 65 mL/min (50-200); Estimated Glomerular Filt Rate 102 ml/min (>60); GFR (African American) 123 ML/MIN (>60); Globulin 3.1 g/dL (1.3-3.2)
[2020-02-24 22:15] LABS: Calcium 8.3 mg/dl (8.4-10.2); Glucose 122 mg/dl (74-100)
[2020-02-24 22:17] VITALS: BP 136/70; PULSE 105; RESP 16; O2SAT 95
[2020-02-24 22:17] LABS: Lactic Acid 1.2 mmol/L (0.7-2.1)
[2020-02-24 22:37] LABS: Bacteria,Urine Trace /lpf
--- NOTE | 2020-02-24 22:41 | PC.NURSE ---
paged dr ferguson per request
--- NOTE | 2020-02-24 22:45 | PC.NURSE ---
dr ferguson returned call
[2020-02-24 23:04] VITALS: BP 136/90; PULSE 100; RESP 16; TEMP 36.8; O2SAT 96
== END 2020-02-24 23:07 | disposition home or self-care (01) ==
PROVIDERS: Emergency Provider Emergency Medicine; PCP Internal Medicine Adolescent Medicine
DX: R11.2 Nausea with vomiting, unspecified (principal); H53.9 Unspecified visual disturbance; R51 Headache; M54.5 Low back pain; F41.8 Other specified anxiety disorders; K21.9 Gastro-esophageal reflux disease without esophagitis; E78.5 Hyperlipidemia, unspecified; I10 Essential (primary) hypertension; E03.9 Hypothyroidism, unspecified; M81.0 Age-related osteoporosis without current pathological fracture; Z79.899 Other long term (current) drug therapy; Z88.2 Allergy status to sulfonamides; Z88.8 Allergy status to other drugs, medicaments and biological substances
CPT/HCPCS: 80053; 81001; 83605; 85025; 87040; 96374; 96375; 99283; J2405

== ENCOUNTER 2020-02-28 08:37 | Outpatient (POV) | payer MEDICAID, SELFPAY ==
[2020-02-28 08:56] VITALS: BP 124/75; PULSE 110; RESP 18; O2SAT 98; BMI 24.2
--- NOTE | 2020-02-28 09:01 | P.PCN_ITS ---
- Procedure Date: 02/28/20 Time: 09:01 Anesthesiologist:: Lillie Yi APRN Complications:: None Pre-procedure Diagnosis:: Degenerative disc disease lumbar spine lumbar radiculopathy, multiple compression fractures, status post kyphoplasty, cerebral palsy Post-procedure Diagnosis:: Same Indications for Procedure:: Patient is a pleasant 59-year-old white female who presents today tearful today due to a allergic reaction she is having to either the Sonya wound VAC or the abdominal binder. It is hard to discern which is causing her reaction however both look like they have created an area of hives rotating around her trunk. Patient's been treating it with Benadryl and Benadryl cream. The seal in regards to the Sonya have been compromised. The Sonya was taken off. The site of incision looks clean dry intact no drainage no sign symptoms of infection. Patient is continuing her Bactrim. She rates her pain a 0 out of 10 however even though she self caths she is having difficulty with urine production. Patient and I discussed decreasing her morphine pump. Physical Exam General: Alert and oriented x3, no acute distress, pleasant and cooperative, [on room air] Lungs: Resps E/U, Symmetrical chest expansion, Eyes: PERRL Musculoskeletal: Flexion and extension of lumbar spine somewhat guarded secondary to pain, deep tendon reflexes normal, strength in upper and lower extremities [5/5], [abnormal gait noted] Neurological: speech clear, systems development consultant equal, no gross sensory deficits Procedure Details:: Informed consent was obtained and the risk and benefits of the procedure were explained to the patient. The patient was taken to the procedure room where noninvasive monitoring was placed including noninvasive blood pressure cuff and pulse oximeter. Patient's pump was interrogated and reprogrammed. The infusion rate was decreased to 0.15 mg of morphine a day. The patient tolerated the procedure well. Plan and Disposition:: We will send the patient to outpatient services to get a IM injection of 50 mg of Benadryl. We will see her back tomorrow and reassess her. Patient is not to wear the abdominal binder at this time. I also had a long discussion in regards to the integrity of the incision and the stitches. She has been instructed to call the office if she has any issues prior to her next appointment. Dr. Robledo has reviewed this note and agrees with this plan of care. This note was dictated using voice recognition software and may contain errors or omissions
[2020-02-28 09:26] VITALS: BP 114/70; PULSE 109; RESP 20; TEMP 36.5; O2SAT 96
[2020-02-28 09:45] VITALS: BP 120/72; PULSE 108; RESP 20; O2SAT 97
== END 2020-02-28 09:45 | disposition home or self-care (01) ==
LOC: SC.PAIN 08:38 → INF 09:18
PROVIDERS: PCP Internal Medicine Adolescent Medicine; Visit Provider Clinical Nurse Specialist Family Health
DX: M51.16 Intervertebral disc disorders with radiculopathy, lumbar region (principal); G80.9 Cerebral palsy, unspecified; M48.56XS Collapsed vertebra, not elsewhere classified, lumbar region, sequela of fracture; Z98.1 Arthrodesis status; L50.9 Urticaria, unspecified
CPT/HCPCS: 62368; 96372; 99212

== ENCOUNTER → 2020-02-29 12:53 | Outpatient (POV) | payer MEDICAID, SELFPAY ==
--- NOTE | 2020-02-29 13:18 | P.CONS_ITS ---
[facility] Pain Management SOAP Note Subjective:: Patient is a pleasant 59-year-old white female who presents today for follow-up. Patient is no longer wearing the abdominal binder she does look much more comfortable at this time. She rates her pain a 4 out of 10. Patient does have a still noted rash. Patient is only complaining about itching at this time. We will put her on some hydroxyzine. She is not allergic to morphine that she knows of. ROS General: no recent weight change, no fever, no sleep disturbances Respiratory: no cough, no shortness of air, no recurring pulmonary infections Cardiovascular/Peripheral Vascular: No chest pain, No palpitations, no edema, no shortness of breath. Gastrointestinal: no new onset incontinence, normal bowel movements reported Genitourinary: no new onset incontinence Musculoskeletal: Back pain, leg pain Psychiatric: normal mood/ affect, Neurological: [denies new onset weakness in extremities], [denies new onset balance issues] Objective:: Physical Exam General: Alert and oriented x3, no acute distress, pleasant and cooperative, [on room air] Lungs: Resps E/U, Symmetrical chest expansion, Eyes: PERRL Musculoskeletal: Flexion and extension of lumbar spine somewhat guarded secondary to pain, deep tendon reflexes normal, strength in upper and lower extremities [5/5], [abnormal gait noted] Neurological: speech clear, engineering test mechanic equal, no gross sensory deficits Assessment:: Degenerative disc disease lumbar spine lumbar radiculopathy, compression fractures, cerebral palsy Plan:: We will put the patient on hydroxyzine 25 mg every 6 hours we will see her back on Friday. If she is still having the rash or if she calls earlier than Friday for a complaint. We will turn her pain pump off due to potential systemic morphine allergy. She is been instructed to call the office if she has any issues. Dr. Robledo has reviewed this note and agrees with this plan of care. This note was dictated using voice recognition software and may contain errors or omissions [facility] History I have reviewed the patient's past medical history: Yes Medical History: Reports:: Anxiety, Depression, Gastroesophageal Reflux Disease(GERD), Hyperlipidemia, Hypertension, Osteoporosis, Urinary Tract Infection Denies:: Cancer, Diabetes Mellitus Type 1, Diabetes Mellitus Type 2, Internal Pacemaker, Lung Disease, MRSA, Seizures *Have you ever received a pneumonia vaccine?: Yes *Have you received a flu vaccine this season?: Yes Other Medical History: Reports: Arthritis, Hypothyroidism, Osteoporosis, Thyroid Disease, Other. Denies: Blood Transfusion Reaction Other Surgeries: Yes: Appendectomy, Colonoscopy, EGD, Thyroidectomy, Tubal Ligation, Other. No: Pacemaker Amputation: No Fractures: Yes (back) - *Social History Smoking Status: Never smoker Alcohol Intake: never Substance Use Type: denies use *Occupational Status:: other Housing: house Household Members: spouse *Travel in the last 8 weeks: None - Psychiatric History Pschychiatric History:: Reports:: Anxiety, Depression Family Hx:: Cancer, Coronary Artery Disease, Diabetes, Heart Attack, Hyperlipidemia, Hypertension, Thyroid Disorder, Mental illness
== END ==
PROVIDERS: PCP Internal Medicine Adolescent Medicine; Visit Provider Clinical Nurse Specialist Family Health
DX: M51.16 Intervertebral disc disorders with radiculopathy, lumbar region (principal); M48.56XS Collapsed vertebra, not elsewhere classified, lumbar region, sequela of fracture; G80.9 Cerebral palsy, unspecified
CPT/HCPCS: 99212

== ENCOUNTER → 2020-03-06 09:26 | Outpatient (POV) | payer MEDICAID, SELFPAY ==
[2020-03-06 09:44] VITALS: BP 139/75; PULSE 83; RESP 18; O2SAT 98; BMI 24.5
--- NOTE | 2020-03-06 10:08 | P.CONS_ITS ---
[facility] Pain Management SOAP Note Subjective:: Patient is a pleasant 59-year-old white female who presents today for follow-up. Patient looks much more comfortable at this time with the resolution of her rash. She states her itching has improved she is no longer taking hydroxyzine or Benadryl. Patient's current pain is 2 out of 10 which she states she is happy with. Patient is currently on a 0.15 mg a day dose of morphine intrathecally. Patient states that after the surgery she lost her sense of taste however this is beginning to return. ROS General: no recent weight change, no fever, no sleep disturbances Respiratory: no cough, no shortness of air, no recurring pulmonary infections Cardiovascular/Peripheral Vascular: No chest pain, No palpitations, no edema, no shortness of breath. Gastrointestinal: no new onset incontinence, normal bowel movements reported Genitourinary: no new onset incontinence Musculoskeletal: Back pain, leg pain, generalized pain Psychiatric: normal mood/ affect, [denies depression], [denies anxiety] Neurological: [denies new onset weakness in extremities], [denies new onset balance issues] Objective:: Physical Exam General: Alert and oriented x3, no acute distress, pleasant and cooperative, [on room air] Lungs: Resps E/U, Symmetrical chest expansion, Eyes: PERRL Musculoskeletal: Flexion and extension of cervical and lumbar spine somewhat guarded secondary to pain, deep tendon reflexes normal, strength in upper and lower extremities [5/5], [abnormal gait noted] Neurological: speech clear, ocean transportation intermediary equal, no gross sensory deficits Assessment:: Degenerative disc disease lumbar spine lumbar radiculopathy, multiple compression fractures status post kyphoplasty Plan:: Patient will return next for stitch removal. Patient has been instructed to call the office if she has any issues prior to her next appointment. At that time we will set up her PTC. Dr. Robledo has reviewed this note and agrees with this plan of care. This note was dictated using voice recognition software and may contain errors or omissions [facility] History I have reviewed the patient's past medical history: Yes Medical History: Reports:: Anxiety, Depression, Gastroesophageal Reflux Disease(GERD), Hyperlipidemia, Hypertension, Osteoporosis, Urinary Tract Infection Denies:: Cancer, Diabetes Mellitus Type 1, Diabetes Mellitus Type 2, Internal Pacemaker, Lung Disease, MRSA, Seizures *Have you ever received a pneumonia vaccine?: Yes *Have you received a flu vaccine this season?: Yes Other Medical History: Reports: Arthritis, Hypothyroidism, Osteoporosis, Thyroid Disease, Other. Denies: Blood Transfusion Reaction Other Surgeries: Yes: Appendectomy, Colonoscopy, EGD, Thyroidectomy, Tubal Ligation, Other. No: Pacemaker Amputation: No Fractures: Yes (back) - *Social History Smoking Status: Never smoker Alcohol Intake: never Substance Use Type: denies use *Occupational Status:: other Housing: house Household Members: spouse *Travel in the last 8 weeks: None - Psychiatric History Pschychiatric History:: Reports:: Anxiety, Depression Family Hx:: Cancer, Coronary Artery Disease, Diabetes, Heart Attack, Hyperlipidemia, Hypertension, Thyroid Disorder, Mental illness
== END ==
PROVIDERS: PCP Internal Medicine Adolescent Medicine; Visit Provider Clinical Nurse Specialist Family Health
DX: M51.16 Intervertebral disc disorders with radiculopathy, lumbar region (principal); M48.56XS Collapsed vertebra, not elsewhere classified, lumbar region, sequela of fracture; Z98.890 Other specified postprocedural states
CPT/HCPCS: 62368; 99212

== ENCOUNTER → 2020-03-16 10:06 | Outpatient (POV) | payer MEDICAID, SELFPAY ==
[2020-03-16 10:54] VITALS: BP 115/52; PULSE 108; RESP 18; O2SAT 98; BMI 24.5
--- NOTE | 2020-03-16 11:01 | P.PCN_ITS ---
- Procedure Date: 03/16/20 Time: 11:01 Anesthesiologist:: Natali Tian APRN Complications:: None Pre-procedure Diagnosis:: Degenerative disc disease lumbar spine with lumbar radiculopathy symptoms, multiple compression fracture status post kyphoplasty Post-procedure Diagnosis:: Same Indications for Procedure:: Patient is a pleasant 59-year-old white female who presents today for follow-up. She has been treated for low back pain with lumbar radiculopathy symptoms as well as multiple compression fractures status post kyphoplasty. Patient says her pain is a 2 out of 10 to her low back and legs. She is complaining, however, that she feels as though she has a UTI . Patient says that she has to self cath and is having a burning sensation and also reports to have depression. She denies any suicidal ideation today. She says I just do not feel good . Patient says she has not followed up with her primary care provider regarding the urinary symptoms. She does report to have had constipation prior to the intrathecal pump. She says that she is having some abdominal cramping. She says she does take Linzess for her the patient symptoms. Physical exam General: Alert and oriented x3, no acute distress, pleasant and cooperative, [on room air] Lungs: Respirations even and unlabored, symmetrical chest expansion Eyes: PERRL Musculoskeletal: Flexion and extension of lumbar spine somewhat guarded secondary to pain, deep tendon reflexes normal, strength in upper and lower extremities [5/5], [abnormal gait noted] Neurological: Speech clear, mobile marketing specialist equal, no gross sensory deficit Procedure Details:: Informed consent was obtained and the risk and benefits of the procedure were explained to the patient. Patient was taken to the procedure room where noninvasive monitoring was placed including noninvasive blood pressure cuff and pulse oximeter. Patient's pump was interrogated and was reprogrammed to continue at morphine at 0.15 mg/day. The patient tolerated the procedure well with no complications. Plan and Disposition:: Dr. Candelaria's office was contacted today regarding the patient's urinary symptoms. We will send the patient to his office for evaluation. We will keep the patient on her current dose. This does seem to be working for her low back pain and her leg pain. We will not start her PTC device today, as she is having some issues with constipation. She does not feel she needs her PTC at this time. We will plan to follow-up with the patient in 1 month to reassess her symptoms. She has been instructed to contact the clinic if she has any concerns before next appointment. The patient and I specifically discussed risk factors for COVID19. These risks include, but are not limited to age greater than 60, heart or lung disease, diabetes, immunosuppression, and travel. We also discussed NSAIDs may worsen COVID19 infection or symptoms. Patient should not use NSAIDs to treat COVID19 signs or symptoms. Patient was also informed that any type of corticosteroid of any form (oral or injection) will decrease the patient's immune system response and may increase the likelihood of COVID19 infection and symptoms[address]. Robledo has reviewed this note and agrees with this plan of care. This note was dictated using voice recognition software and make contain errors or omissions.
== END ==
PROVIDERS: PCP Internal Medicine Adolescent Medicine; Visit Provider Clinical Nurse Specialist Family Health
DX: M51.16 Intervertebral disc disorders with radiculopathy, lumbar region (principal)
CPT/HCPCS: 62368

== ENCOUNTER → 2020-03-16 17:34 | Outpatient (CLI) | payer MEDICAID, SELFPAY ==
[2020-03-16 17:35] LABS: Microscopic, Urine URINE MICROSCOPIC (MICROSCOPIC)
[2020-03-16 17:54] LABS: Appearance,Urine CLOUDY (Clear); Bilirubin,Urine Negative (Negative); Blood, Urine Negative (Negative); Color,Urine YELLOW (Yellow); Glucose,Urine (UA) Negative (Negative); Ketones,Urine Negative (Negative); Leukocyte Esterase,Urine 3+ (Negative); Nitrate,Urine Negative (Negative); Protein,Urine Negative (Negative); Specific Gravity, Urine >= 1.030 (1.005-1.030); Urobilinogen,Urine 0.2 EU/dl (0.2)
[2020-03-16 18:07] LABS: Bacteria,Urine 2+ /lpf; WBC,Urine TNTC #/hpf (0-3)
== END ==
PROVIDERS: Visit Provider Nurse Practitioner Family
DX: N39.0 Urinary tract infection, site not specified (principal); R10.30 Lower abdominal pain, unspecified
CPT/HCPCS: 81001; 87086; 87088; 87186

== ENCOUNTER 2020-03-22 10:14 | Emergency (ER) | payer MEDICAID, SELFPAY ==
[2020-03-22 10:22] VITALS: BP 151/98; PULSE 100; RESP 16; TEMP 36.6; O2SAT 97; BMI 22.6
--- NOTE | 2020-03-22 10:23 | PC.NURSE ---
Called Dr Robledo office per patient request to let them know pt was here since she had spoken with office staffa couple of days ago regarding a possibly infected pain pump.
[2020-03-22 11:04] VITALS: BP 137/94; PULSE 84; O2SAT 96
--- NOTE | 2020-03-22 11:04 | PC.NURSE ---
Dr Packer at bedside
[2020-03-22 11:09] LABS: MANUAL DIFFERENTIAL MANUAL DIFFERENTIAL (MANUAL DIFF); Microscopic, Urine URINE MICROSCOPIC (MICROSCOPIC)
[2020-03-22 11:12] LABS: Basophils % 0.4 % (0.1-2.0); Eosinophils # 0.2 K/mm3 (0.0-0.4); Eosinophils % 2.7 % (0.1-12.0); Hematocrit 39.1 % (37.0-47.0); Hemoglobin 12.8 g/dL (12.2-16.2); Lymphocytes # 0.9 K/mm3 (0.7-4.5); Mean Corpuscular HGB Conc 32.8 g/dL (31.8-35.4); Mean Corpuscular Hemoglobin 25.3 pg (27.0-31.2); Mean Corpuscular Volume 77.2 fl (81-99); Mean Platelet Volume 8.7 fl (7.4-10.4); Monocytes # 0.4 K/mm3 (0.1-1.0); Monocytes % 5.2 % (1.7-9.3); Neutrophils # 5.7 K/mm3 (1.8-7.8); Neutrophils % 79.6 % (37.0-80.0); Platelet Count 147 K/mm3 (142-424); Red Blood Count 5.06 M/mm3 (4.20-5.40); Red Cell Distribution Width 15.3 % (11.5-17.5); White Blood Count 7.1 K/mm3 (4.8-10.8)
[2020-03-22 11:19] LABS: Appearance,Urine CLEAR (Clear); Blood, Urine Negative (Negative); Color,Urine AMBER (Yellow); Glucose,Urine (UA) Negative (Negative); Ketones,Urine 2+ (Negative); Leukocyte Esterase,Urine Negative (Negative); Nitrate,Urine Negative (Negative); PH,Urine 6.5 (5.0-8.5); Protein,Urine Negative (Negative)
--- NOTE | 2020-03-22 11:21 | HMH.EDGENADL ---
ED Disposition Clinical Impression: Cellulitis Disposition: Home, Self-Care Condition on Discharge: Good Instructions: DI for Diarrhea and Traveler's Diarrhea -- Adult, DI for Diarrhea and Traveler's Diarrhea -- Child, DI for Nausea -- Adult, DI for Nausea -- Child, Nausea and Vomiting-Adult, Cellulitis Additional Instructions: These follow-up with Dr. Robledo on Friday. Prescriptions: clindamycin HCL [Clindamycin HCl 300mg Cap] 300 mg PO Q6 10 Days #40 cap Transmission Status: Sent to [id number] Referrals: Luis Henderson MD [Primary Care Provider] - - Critical Care Critical Care Time: No Attestation: On 03/22/20, the high probability of a clinically significant, sudden or life threatening deterioration of the following system(s) required my full and direct attention, intervention and personal management. The time I documented below is in addition to time spent performing reported procedures but includes the following listed in this critical care notation. Medical Decision Making - Medical Records Medical records reviewed: Yes: I reviewed the patient's medical records. - Claus Inquiry Pt receiving controlled substance: No Vital Signs: 03/22/20 10:22 03/22/20 11:04 Temperature 97.8 F Temperature Source Oral Pulse Rate [Radial] 100 H 84 Respiratory Rate 16 Blood Pressure [Right Arm] 151/98 H 137/94 H Blood Pressure Mean [Right Arm] 115 108 Blood Pressure Source [Right Arm] Automatic Cuff Automatic Cuff Blood Pressure Position [Right Arm] Supine Sitting 02 Sat by Pulse Oximetry 97 96 Oxygen Delivery Method Room Air Room Air - Lab Data Lab results reviewed: Yes: I reviewed the patient's lab results. Lab Results 03/22/20 10:54: WBC 7.1, RBC 5.06, Hgb 12.8, Hct 39.1, MCV 77.2 L, MCH 25.3 L, MCHC 32.8, RDW 15.3, Plt Count 147, MPV 8.7, Neut % (Auto) 79.6, Lymph % (Auto) 12.0, Graham % (Auto) 5.2, Eos % (Auto) 2.7, Baso % (Auto) 0.4, Neut # (Auto) 5.7, Lymph # (Auto) 0.9, Graham # (Auto) 0.4, Eos # (Auto) 0.2, Baso # (Auto) 0.0 03/22/20 10:54: Sodium 138, Potassium 3.0 L, Chloride 97 L, Carbon Dioxide 28, Anion Gap 16.0 H, BUN 12, Creatinine 0.40 L, Estimated Creat Clear 59, Estimated GFR 162, Est GFR ( Amer) 196, Total Bilirubin 1.0, AST 27, ALT 18, Alkaline Phosphatase 75 03/22/20 10:54: Urine Color Sallie, Urine Appearance Clear, Urine pH 6.5, Ur Specific [place] 1.020, Urine Protein Negative, Urine Glucose (UA) Negative, Urine Ketones 2+, Urine Blood Negative, Urine Nitrate Negative, Urine Bilirubin Negative, Urine Urobilinogen 1.0, Ur Leukocyte Esterase Negative 03/22/20 10:54: Lactate 1.0 Result diagrams: 03/22/20 10:54 03/22/20 10:54 Orders (Tests/Meds): ED MEDICATIONS Generic Name Dose Route Start Last Admin Trade Name Freq PRN Reason Stop Dose Admin Sodium Chloride 1,000 mls @ 999 mls/hr 03/22/20 10:45 03/22/20 11:03 Sod Chlor 0.9% 1000ml Bag IV 03/22/20 11:45 999 mls/hr .[id number] ROWAN Administration Discontinued Medications Generic Name Dose Route Start Last Admin Trade Name Freq PRN Reason Stop Dose Admin Ondansetron HCl 4 mg 03/22/20 10:55 03/22/20 10:56 Zofran 4mg/2ml Vial IV 03/22/20 10:56 4 mg ONCE ONE Administration ORDERS Category Date Time Status Complete Blood Count Man Dif Stat Lab 03/22/20 10:54 Results Comprehensive Metabolic Panel Stat Lab 03/22/20 10:54 Results UA [Urinalysis and Microscopic] Stat Lab 03/22/20 10:54 Results Blood Culture Stat Micro 03/22/20 11:08 Ordered Medical Decision Narrative: Dr. Barreto did come down and look at the patient recommended antibiotic therapy at home patient does not have a fever nor does she have an elevated white blood cell count everything is stable she will be stable to go home after some IV antibiotics infusion she will follow-up with Dr. Robledo on Friday. General Adult HPI - General Chief complaint: Nausea/Vomiting/Diarrhea Stated complaint: has pain pump, bad reaction
[2020-03-22 11:22] LABS: Bilirubin,Urine Negative (Negative)
[2020-03-22 11:23] LABS: Chloride 97 mmol/L (98-107); Sodium 138 mmol/L (136-145)
[2020-03-22 11:25] LABS: Alanine Aminotransferase 18 U/L (12-78); Alkaline Phosphatase 75 U/L (38-126); Aspartate Amino Transferase 27 U/L (14-36); Blood Urea Nitrogen 12 mg/dl (7-17); Carbon Dioxide 28 mmol/L (22.0-30.0); Creatinine Clearance Estimated 59 mL/min (50-200); Estimated Glomerular Filt Rate 162 ml/min (>60); GFR (African American) 196 ML/MIN (>60)
[2020-03-22 11:26] LABS: Albumin Level 3.9 g/dl (3.5-5.0); Albumin/Globulin Ratio 1.1 (1.1-1.8); Calcium 8.9 mg/dl (8.4-10.2); Globulin 3.4 g/dL (1.3-3.2); Glucose 113 mg/dl (74-100); Total Protein,Serum 7.3 g/dl (6.3-8.2)
[2020-03-22 11:31] LABS: Bacteria,Urine Trace /lpf; Mucus,Urine 1+ /lpf
[2020-03-22 11:42] LABS: Lymphocytes % 11 % (10-50); Microcytosis 1+; Monocytes % 4 % (2-9); Neutrophils % 85 % (42-76); Platelet Estimate Normal; Total Cells Counted 100
[2020-03-22 11:43] LABS: Hypochromasia 1+
[2020-03-22 12:18] VITALS: BP 134/68; PULSE 80; O2SAT 97
[2020-03-22 13:09] VITALS: BP 139/86; PULSE 85; O2SAT 96
[2020-03-22 14:07] VITALS: BP 140/70; PULSE 84; RESP 16; TEMP 36.9; O2SAT 98
== END 2020-03-22 14:08 | disposition home or self-care (01) ==
PROVIDERS: Emergency Provider Family Medicine; PCP Internal Medicine Adolescent Medicine
DX: L03.312 Cellulitis of back [any part except buttock and flank] (principal); N30.00 Acute cystitis without hematuria; K21.9 Gastro-esophageal reflux disease without esophagitis; I10 Essential (primary) hypertension; E03.9 Hypothyroidism, unspecified; F41.8 Other specified anxiety disorders; E78.5 Hyperlipidemia, unspecified; M81.0 Age-related osteoporosis without current pathological fracture; G80.9 Cerebral palsy, unspecified; Z88.2 Allergy status to sulfonamides; Z90.49 Acquired absence of other specified parts of digestive tract; Z79.899 Other long term (current) drug therapy
CPT/HCPCS: 80053; 81001; 83605; 85007; 85014; 85018; 85048; 85049; 87040; 87070; 87077; 87186; 87205; 96365; 96367; 96375; 99284; J2405

== ENCOUNTER → 2020-03-27 08:44 | Outpatient (POV) | payer MEDICAID, SELFPAY ==
[2020-03-27 09:20] VITALS: BP 125/88; PULSE 87; RESP 18; O2SAT 97; BMI 23.3
--- NOTE | 2020-03-27 15:34 | HMH.PAINSOAP ---
[facility] Pain Management SOAP Note Subjective:: Patient is a 59-year-old white female who presents today for follow-up. She has been treated for low back pain with lumbar radiculopathy symptoms as well as multiple compression fractures status post kyphoplasty. Her pain is a 2 out of 10 today. She is following up after an ER visit due to exposure of her intrathecal pump. Patient says that she was told in the emergency room that she develops a staph infection following her surgery. Patient is accompanied by her today who reports that he is concerned of the patient developing staph due to the surgical procedure. Patient and report that they planned to see Dr. castillo today and not a nurse practitioner. They are not happy that they are unable to see him today. Patient would like to follow-up with Dr. castillo at her next visit. Patient's intrathecal pain pump site is without redness, drainage, or edema. There is no exposure of the pump at this time. Per the , the patient did have pus like drainage from the pump site. He says that he did discuss this with the ER physician who informed the patient that it was nothing to worry about. Patient is currently on antibiotic therapy as prescribed by Dr. nadja fofana. Patient was informed that who assisted Dr. castillo with the device placement did see her in the emergency room and did place her on antibiotic therapy. Patient says that she should have seen Dr. Robledo instead of doctor's zeenat fofana. Otherwise, the patient is doing well with her intrathecal therapy. She is currently on morphine at 1 5 mg/day. She denies any side effects to the medication. Review of Systems General: No recent weight changes, no fever, no sleep disturbances Respiratory: No cough, no shortness of air, no recurring pulmonary infections Cardiovascular/peripheral vascular: No chest pain, no palpitations, no edema, no shortness of breath Gastrointestinal: No new onset incontinence, normal bowel movements reported Genitourinary: No new onset incontinence Musculoskeletal: Intermittent low back pain Psychiatric: Normal mood/affect Neurological: [Denies weakness in extremities], [denies balance issues] Objective:: Physical exam General: Alert and oriented x3, no acute distress, pleasant and cooperative, [on room air] Lungs: Respirations even and unlabored, symmetrical chest expansion Eyes: PERRL Musculoskeletal: Flexion and extension of lumbar spine somewhat guarded secondary to pain, deep tendon reflexes normal, strength in upper and lower extremities [5/5], [abnormal gait noted] Neurological: Speech clear, 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 She does not have any redness, drainage, or edema noted to the site. She is currently on antibiotic therapy as prescribed by Dr. Barreto. Patient family as well as the patient would like to see Dr. Robledo, however. We will schedule her to follow-up with Dr. Robledo this week. She has been instructed to contact the clinic if she has any concerns before next appointment. The patient and I specifically discussed risk factors for COVID19. These risks include, but are not limited to age greater than 60, heart or lung disease, diabetes, immunosuppression, and travel. We also discussed NSAIDs may worsen COVID19 infection or symptoms. Patient should not use NSAIDs to treat COVID19 signs or symptoms. Patient was also informed that any type of corticosteroid of any form (oral or injection) will decrease the patient's immune system response and may increase the likelihood of COVID19 infection [address] symptoms[address] Robledo has reviewed this note and agrees with this plan of care. This note was dictated using voice recognition software and make contain errors or omissions. [facility] History I have reviewed the patient's past medical history: Jeremy
== END ==
PROVIDERS: PCP Internal Medicine Adolescent Medicine; Visit Provider Clinical Nurse Specialist Family Health
DX: M51.16 Intervertebral disc disorders with radiculopathy, lumbar region (principal); F41.9 Anxiety disorder, unspecified; F32.9 Major depressive disorder, single episode, unspecified; K21.9 Gastro-esophageal reflux disease without esophagitis; I10 Essential (primary) hypertension; M81.0 Age-related osteoporosis without current pathological fracture; E78.5 Hyperlipidemia, unspecified; E03.9 Hypothyroidism, unspecified; Z88.2 Allergy status to sulfonamides; Z88.8 Allergy status to other drugs, medicaments and biological substances
CPT/HCPCS: 62368; 99212

== ENCOUNTER → 2020-03-30 15:08 | Outpatient (POV) | payer MEDICAID, SELFPAY ==
--- NOTE | 2020-03-30 15:38 | HMH.PAINSOAP ---
[facility] Pain Management SOAP Note Subjective:: Patient is a pleasant 59-year-old white female who presents today for follow-up. She is being treated for low back pain with lumbar radiculopathy symptoms. Patient has had some issues with her intrathecal pain pump site. She did have an area at the incision site that was open for which she was started on antibiotics. Patient did go to the emergency room due to the opening of the incision. She was started on the antibiotics by Dr. nadja fofana. Patient is back again today for complaints of exposure of the incision. After evaluation of her incision, the patient's incision is currently closed, however, she does have some notable edema noted around the pump site. There is no redness or drainage noted at the site. I did discuss with her that she should begin wearing her abdominal binder. Per her , the patient had a reaction to the abdominal binder material. Patient has been encouraged to wear a shirt in the binder over her shirt to help prevent swelling. She is in agreement. She would like to follow-up with Dr. Robledo tomorrow so that he can look at her incision site. She does say that she does have relief, however, of her pain at this time. She is currently on morphine at 1.5 mg/day. Her pain a 3 out of 10 today. Review of Systems General: No recent weight changes, no fever, no sleep disturbances Respiratory: No cough, no shortness of air, no recurring pulmonary infections Cardiovascular/peripheral vascular: No chest pain, no palpitations, no edema, no shortness of breath Gastrointestinal: No new onset incontinence, normal bowel movements reported Genitourinary: No new onset incontinence Musculoskeletal: Low back pain Psychiatric: Normal mood/affect Neurological: [Denies weakness in extremities], [denies balance issues] Objective:: Physical exam General: Alert and oriented x3, no acute distress, pleasant and cooperative, [on room air] Lungs: Respirations even and unlabored, symmetrical chest expansion Eyes: PERRL Musculoskeletal: Flexion and extension of lumbar spine somewhat guarded secondary to pain, deep tendon reflexes normal, strength in upper and lower extremities [5/5], [abnormal gait noted] Neurological: Speech clear, landscape photographer 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 Robledo tomorrow for further assessment of her incision site. She has been instructed to contact the clinic if she has any concerns before next appointment. The incision is not open today. It does have some edema at the incision site, however. She does not have any redness or drainage noted to the incision. The patient and I specifically discussed risk factors for COVID19. These risks include, but are not limited to age greater than 60, heart or lung disease, diabetes, immunosuppression, and travel. We also discussed NSAIDs may worsen COVID19 infection or symptoms. Patient should not use NSAIDs to treat COVID19 signs or symptoms. Patient was also informed that any type of corticosteroid of any form (oral or injection) will decrease the patient's immune system response and may increase the likelihood of COVID19 [address] Robledo has reviewed this note and agrees with this plan of care. This note was dictated using voice recognition software and make contain errors or omissions. [facility] History I have reviewed the patient's past medical history: Yes Medical History: Reports:: Anxiety, Depression, Gastroesophageal Reflux Disease(GERD), Hyperlipidemia, Hypertension, Osteoporosis, Urinary Tract Infection Denies:: Cancer, Diabetes Mellitus Type 1, Diabetes Mellitus Type 2, Internal Pacemaker, Lung Disease, MRSA, Seizures *Have you ever received a pneumonia vaccine?: Yes *Have you received a flu vaccine this season?: Yes Other Medical History: Reports: Arthritis, Hypothyroidism, Osteoporosis, Thy
[2020-03-30 15:42] VITALS: BP 125/88; PULSE 85; RESP 18; O2SAT 98; BMI 23.3
== END ==
PROVIDERS: PCP Internal Medicine Adolescent Medicine; Visit Provider Clinical Nurse Specialist Family Health
DX: M51.16 Intervertebral disc disorders with radiculopathy, lumbar region (principal)
CPT/HCPCS: 99212

== ENCOUNTER → 2020-03-31 11:36 | Outpatient (POV) | payer MEDICAID, SELFPAY ==
[2020-03-31 12:10] VITALS: BP 126/86; PULSE 89; RESP 20; TEMP 36.7; O2SAT 97; BMI 23.3
--- NOTE | 2020-03-31 12:19 | P.PCN_ITS ---
- Procedure Date: 03/31/20 Time: 12:19 Anesthesiologist:: Aneesh Robledo MD Complications:: None Pre-procedure Diagnosis:: Degenerative disc disease of lumbar spine with lumbar radiculopathy symptoms and multiple compression fractures with history of CP Post-procedure Diagnosis:: Same Indications for Procedure:: This patient is a pleasant 59-year-old white female who has history of CP. She is status post permanent pain pump placement approximately 3 weeks ago. Subsequent to her placement she came into the emergency room. She did have a superficial infection which was diagnosed as staph. She was placed on antibiotics. She continues to be on antibiotics. She is also had a previous UTI. This is now resolved. Patient says she is still not making much urine she always does self cath. She says she continues to drink water however her urine is dark so I do believe that she is somewhat dehydrated. We will order a new CBC and basic metabolic panel to assess her white count and BUN/creatinine. We will also decrease her intrathecal morphine infusion to 0.1 mg/day. This will help with urinary hesitancy and retention as well as her constipation which she also complains about. Procedure Details:: Informed consent was obtained the risk and benefits of the procedure were explained to the patient. Patient was taken to the procedure room. Intrathecal morphine infusion was decreased to 0.1 mg/day. Patient tolerated the procedure well with no complications. Plan and Disposition:: We will follow-up with her next Friday. We will order a CBC and basic metabolic panel to assess her electrolytes, BUN and creatinine as well as her white count. She does have a seroma around her pump I have encouraged her to continue w earing her binder. We have decreased her intrathecal morphine infusion to 0.1 mg/day. Hopefully this will help with some of her side effects.
[2020-03-31 13:46] LABS: Basophils % 0.6 % (0.1-2.0); Eosinophils # 0.2 K/mm3 (0.0-0.4); Eosinophils % 3.3 % (0.1-12.0); Hematocrit 37.6 % (37.0-47.0); Hemoglobin 11.8 g/dL (12.2-16.2); Lymphocytes # 1.2 K/mm3 (0.7-4.5); Lymphocytes % 19.3 % (10-50); Mean Corpuscular HGB Conc 31.5 g/dL (31.8-35.4); Mean Corpuscular Hemoglobin 25.2 pg (27.0-31.2); Mean Corpuscular Volume 80.1 fl (81-99); Mean Platelet Volume 7.8 fl (7.4-10.4); Monocytes # 0.2 K/mm3 (0.1-1.0); Monocytes % 3.4 % (1.7-9.3); Neutrophils # 4.6 K/mm3 (1.8-7.8); Neutrophils % 73.5 % (37.0-80.0); Platelet Count 167 K/mm3 (142-424); Red Blood Count 4.69 M/mm3 (4.20-5.40); Red Cell Distribution Width 15.5 % (11.5-17.5); White Blood Count 6.2 K/mm3 (4.8-10.8)
[2020-03-31 14:47] LABS: Anion Gap 14.8 mEq/L (5-15); Blood Urea Nitrogen 22 mg/dl (7-17); Carbon Dioxide 25 mmol/L (22.0-30.0); Chloride 106 mmol/L (98-107); Creatinine Clearance Estimated 61 mL/min (50-200); Estimated Glomerular Filt Rate 125 ml/min (>60); GFR (African American) 152 ML/MIN (>60); Glucose 91 mg/dl (74-100); Potassium 3.8 mmoL/L (3.5-5.1); Sodium 142 mmol/L (136-145)
== END ==
PROVIDERS: PCP Internal Medicine Adolescent Medicine; Visit Provider Anesthesiology
DX: M51.16 Intervertebral disc disorders with radiculopathy, lumbar region (principal); G80.9 Cerebral palsy, unspecified; M48.56XS Collapsed vertebra, not elsewhere classified, lumbar region, sequela of fracture; Z88.8 Allergy status to other drugs, medicaments and biological substances; Z88.2 Allergy status to sulfonamides; Z79.899 Other long term (current) drug therapy; F41.9 Anxiety disorder, unspecified; F32.9 Major depressive disorder, single episode, unspecified; E03.9 Hypothyroidism, unspecified; M81.0 Age-related osteoporosis without current pathological fracture; M19.90 Unspecified osteoarthritis, unspecified site; Z80.9 Family history of malignant neoplasm, unspecified
CPT/HCPCS: 36415; 62368; 80048; 85025

== ENCOUNTER → 2020-04-07 12:42 | Outpatient (POV) | payer MEDICAID, SELFPAY ==
[2020-04-07 13:01] VITALS: BP 100/60; PULSE 101; RESP 18; O2SAT 97; BMI 23.7
--- NOTE | 2020-04-07 13:12 | P.CONS_ITS ---
[facility] Pain Management SOAP Note Subjective:: This patient is a pleasant 59-year-old white female who has a history of CP. She is doing very well with her intrathecal morphine pain pump. We decreased her at her last visit to 0.1 mg/day. Since then there have been no side effects. She is not had any more urinary hesitancy or retention. Constipation is better. She still does self catheterize because of her CP. Overall she is doing well she does not have any pain at this time. We did check her labs. Her white count is normal. Her BUN/creatinine and potassium are all normal. Overall she is doing well with her pain symptoms and no signs of infection. She still does have some fluid around the pump. I have encouraged her to continue wearing her binder. Objective:: Alert and oriented x3 no acute distress. Patient still does have some fluid around the pump. I encouraged to wear a binder. She currently is on intrathecal morphine 5 mg/mL 0.1 mg/day. Seen sitting in the wheelchair. Motor strength of the upper and lower extremities is 5/5. There is no gross sensory deficit. Assessment:: Degenerative disc disease of lumbar spine with lumbar radiculopathy symptoms and multiple compression fractures with history of CP Plan:: We will continue her intrathecal morphine fusion 0.1 mg/day. We will follow-up with her in 1 month. She is doing very well I encouraged her to continue wearing her abdominal binder. If she has any problems or questions she is to call us in the pain clinic. [facility] History Medical History: Reports:: Anxiety, Depression, Gastroesophageal Reflux Disease(GERD), Hyperlipidemia, Hypertension, Osteoporosis, Urinary Tract Infection Denies:: Cancer, Diabetes Mellitus Type 1, Diabetes Mellitus Type 2, Internal Pacemaker, Lung Disease, MRSA, Seizures *Have you ever received a pneumonia vaccine?: No *Have you received a flu vaccine this season?: Yes Other Medical History: Reports: Arthritis, Hypothyroidism, Osteoporosis, Thyroid Disease, Other. Denies: Blood Transfusion Reaction Other Surgeries: Yes: Appendectomy, Colonoscopy, EGD, Thyroidectomy, Tubal Ligation, Other. No: Pacemaker Amputation: No Fractures: Yes (back) - *Social History Smoking Status: Never smoker Alcohol Intake: never Substance Use Type: denies use *Occupational Status:: disabled Housing: house Household Members: spouse *Travel in the last 8 weeks: None - Psychiatric History Pschychiatric History:: Reports:: Anxiety, Depression Family Hx:: Cancer, Coronary Artery Disease, Diabetes, Heart Attack, Hyperlipidemia, Hypertension, Thyroid Disorder, Mental illness
== END ==
PROVIDERS: PCP Internal Medicine Adolescent Medicine; Visit Provider Anesthesiology
DX: M51.16 Intervertebral disc disorders with radiculopathy, lumbar region (principal); M48.56XS Collapsed vertebra, not elsewhere classified, lumbar region, sequela of fracture; G89.29 Other chronic pain
CPT/HCPCS: 99212

== ENCOUNTER → 2020-04-18 12:42 | Outpatient (CLI) | payer MEDICAID, SELFPAY ==
[2020-04-18 12:45] LABS: Microscopic, Urine URINE MICROSCOPIC (MICROSCOPIC)
[2020-04-18 13:04] LABS: Appearance,Urine TURBID (Clear); Bilirubin,Urine Negative (Negative); Blood, Urine TRACE-I (Negative); Color,Urine YELLOW (Yellow); Glucose,Urine (UA) Negative (Negative); Ketones,Urine Negative (Negative); Leukocyte Esterase,Urine 2+ (Negative); Nitrate,Urine POSITIVE (Negative); PH,Urine 6.5 (5.0-8.5); Protein,Urine Negative (Negative); Urobilinogen,Urine 0.2 EU/dl (0.2)
[2020-04-18 13:22] LABS: Bacteria,Urine 4+ /lpf; Squamous Epithelial Cell,Urine Occasional #/hpf (0-5)
[2020-04-18 13:31] LABS: Chloride 109 mmol/L (98-107); Potassium 3.6 mmoL/L (3.5-5.1); Sodium 142 mmol/L (136-145)
[2020-04-18 13:33] LABS: Blood Urea Nitrogen 12 mg/dl (7-17); Estimated Glomerular Filt Rate 162 ml/min (>60); GFR (African American) 196 ML/MIN (>60)
[2020-04-18 13:34] LABS: Alanine Aminotransferase 18 U/L (12-78); Albumin Level 3.8 g/dl (3.5-5.0); Albumin/Globulin Ratio 1.4 (1.1-1.8); Alkaline Phosphatase 65 U/L (38-126); Anion Gap 14.6 mEq/L (5-15); Aspartate Amino Transferase 24 U/L (14-36); Basophils % 0.3 % (0.1-2.0); Bilirubin,Total 0.6 mg/dl (0.2-1.3); Calcium 8.8 mg/dl (8.4-10.2); Carbon Dioxide 22 mmol/L (22.0-30.0); Eosinophils % 0.3 % (0.1-12.0); Globulin 2.7 g/dL (1.3-3.2); Glucose 110 mg/dl (74-100); Hematocrit 35.9 % (37.0-47.0); Hemoglobin 11.7 g/dL (12.2-16.2); Lymphocytes # 0.6 K/mm3 (0.7-4.5); Lymphocytes % 8.7 % (10-50); Mean Corpuscular HGB Conc 32.4 g/dL (31.8-35.4); Mean Corpuscular Hemoglobin 25.3 pg (27.0-31.2); Mean Corpuscular Volume 78.1 fl (81-99); Mean Platelet Volume 8.5 fl (7.4-10.4); Monocytes # 0.3 K/mm3 (0.1-1.0); Monocytes % 4.8 % (1.7-9.3); Neutrophils % 85.9 % (37.0-80.0); Platelet Count 144 K/mm3 (142-424); Red Cell Distribution Width 15.7 % (11.5-17.5); Total Protein,Serum 6.5 g/dl (6.3-8.2)
[2020-04-18 13:37] LABS: MANUAL DIFFERENTIAL MANUAL DIFFERENTIAL (MANUAL DIFF)
[2020-04-18 14:38] LABS: Eosinophils % 1 % (0-3); Lymphocytes % 8 % (10-50); Monocytes % 5 % (2-9); Neutrophils % 86 % (42-76); Total Cells Counted 100
[2020-04-18 14:39] LABS: Hypochromasia 1+; Platelet Estimate Normal
== END ==
PROVIDERS: Visit Provider Nurse Practitioner Family
DX: R50.9 Fever, unspecified (principal); N39.0 Urinary tract infection, site not specified
CPT/HCPCS: 36415; 80053; 81001; 85007; 85025; 87086; 87088; 87186

== ENCOUNTER 2020-04-21 14:57 | Emergency (ER) | payer MEDICAID, SELFPAY ==
[2020-04-21 15:08] VITALS: BP 164/94; PULSE 101; RESP 20; TEMP 36.8; O2SAT 96; BMI 22.1
[2020-04-21 15:21] VITALS: BP 164/94; PULSE 91; O2SAT 97
[2020-04-21 15:27] LABS: Basophils % 0.4 % (0.1-2.0); Chloride 97 mmol/L (98-107); Eosinophils # 0.1 K/mm3 (0.0-0.4); Eosinophils % 1.1 % (0.1-12.0); Hematocrit 37.2 % (37.0-47.0); Hemoglobin 12.2 g/dL (12.2-16.2); Lymphocytes # 0.8 K/mm3 (0.7-4.5); Mean Corpuscular HGB Conc 32.8 g/dL (31.8-35.4); Mean Corpuscular Hemoglobin 25.5 pg (27.0-31.2); Mean Corpuscular Volume 77.7 fl (81-99); Monocytes # 0.4 K/mm3 (0.1-1.0); Monocytes % 4.9 % (1.7-9.3); Neutrophils # 6.3 K/mm3 (1.8-7.8); Neutrophils % 83.6 % (37.0-80.0); Platelet Count 180 K/mm3 (142-424); Potassium 3.2 mmoL/L (3.5-5.1); Red Blood Count 4.78 M/mm3 (4.20-5.40); Red Cell Distribution Width 15.5 % (11.5-17.5); Sodium 132 mmol/L (136-145); White Blood Count 7.6 K/mm3 (4.8-10.8)
[2020-04-21 15:29] LABS: Alanine Aminotransferase 19 U/L (12-78); Aspartate Amino Transferase 29 U/L (14-36); Blood Urea Nitrogen 15 mg/dl (7-17); Creatinine Clearance Estimated 58 mL/min (50-200); Estimated Glomerular Filt Rate 226 ml/min (>60); GFR (African American) 274 ML/MIN (>60)
[2020-04-21 15:30] LABS: Albumin Level 3.9 g/dl (3.5-5.0); Albumin/Globulin Ratio 1.1 (1.1-1.8); Alkaline Phosphatase 72 U/L (38-126); Anion Gap 15.2 mEq/L (5-15); Calcium 8.8 mg/dl (8.4-10.2); Carbon Dioxide 23 mmol/L (22.0-30.0); Globulin 3.6 g/dL (1.3-3.2); Glucose 136 mg/dl (74-100); Total Protein,Serum 7.5 g/dl (6.3-8.2)
[2020-04-21 16:26] VITALS: BP 119/61; PULSE 95; O2SAT 94
[2020-04-21 17:24] VITALS: BP 122/96; PULSE 90; O2SAT 92
--- NOTE | 2020-04-21 17:47 | HMH.EDNVD ---
ED Disposition Clinical Impression: Gastroenteritis, Abdominal pain Disposition: Home, Self-Care Condition on Discharge: Good Instructions: DI for Diarrhea and Traveler's Diarrhea -- Adult, DI for Diarrhea and Traveler's Diarrhea -- Child, DI for Nausea -- Adult, DI for Nausea -- Child Prescriptions: Ondansetron [Zofran 4mg ODT] 4 mg PO TID PRN 4 Days #15 tab.rapdis PRN Reason: Nausea Transmission Status: Pending to [id number] Referrals: Luis Henderson MD [Primary Care Provider] - - Critical Care Critical Care Time: No Attestation: On 04/21/20, the high probability of a clinically significant, sudden or life threatening deterioration of the following system(s) required my full and direct attention, intervention and personal management. The time I documented below is in addition to time spent performing reported procedures but includes the following listed in this critical care notation. Medical Decision Making - Medical Records Medical records reviewed: Yes: I reviewed the patient's medical records. - Claus Inquiry Pt receiving controlled substance: No Vital Signs: 04/21/20 15:08 04/21/20 15:21 04/21/20 16:26 Temperature 98.3 F Temperature Source Oral Pulse Rate [Left Radial] 101 H 91 H 95 H Respiratory Rate 20 Blood Pressure [Left Arm] 164/94 H 164/94 H 119/61 Blood Pressure Mean [Left Arm] 117 117 80 Blood Pressure Source [Left Arm] Automatic Cuff Automatic Cuff Automatic Cuff Blood Pressure Position [Left Arm] Sitting Sitting Sitting 02 Sat by Pulse Oximetry 96 97 94 L Oxygen Delivery Method Room Air Room Air Room Air 04/21/20 17:24 Temperature Temperature Source Pulse Rate [Left Radial] 90 Respiratory Rate Blood Pressure [Left Arm] 122/96 H Blood Pressure Mean [Left Arm] 104 Blood Pressure Source [Left Arm] Automatic Cuff Blood Pressure Position [Left Arm] Sitting 02 Sat by Pulse Oximetry 92 L Oxygen Delivery Method Room Air - Lab Data Lab Results 04/21/20 15:09: WBC 7.6, RBC 4.78, Hgb 12.2, Hct 37.2, MCV 77.7 L, MCH 25.5 L, MCHC 32.8, RDW 15.5, Plt Count 180, MPV 8.0, Neut % (Auto) 83.6 H, Lymph % (Auto) 10.0, [place] % (Auto) 4.9, Eos % (Auto) 1.1, Baso % (Auto) 0.4, Neut # (Auto) 6.3, Lymph # (Auto) 0.8, [place] # (Auto) 0.4, Eos # (Auto) 0.1, Baso # (Auto) 0.0 04/21/20 15:09: Sodium 132 L, Potassium 3.2 L, Chloride 97 L, Carbon Dioxide 23, Anion Gap 15.2 H, BUN 15, Creatinine 0.30 L, Estimated Creat Clear 58, Estimated GFR 226, Est GFR ( Amer) 274, Glucose 136 H, Calcium 8.8, Total Bilirubin 1.0, AST 29, ALT 19, Alkaline Phosphatase 72, Total Protein 7.5, Albumin 3.9, Globulin 3.6 H, Albumin/Globulin Ratio 1.1 Result diagrams: 04/21/20 15:09 04/21/20 15:09 Orders (Tests/Meds): ED MEDICATIONS Generic Name Dose Route Start Last Admin Trade Name Freq PRN Reason Stop Dose Admin Sodium Chloride 1,000 mls @ 999 mls/hr 04/21/20 15:30 04/21/20 15:23 Sod Chlor 0.9% 1000ml Bag IV 04/21/20 16:30 999 mls/hr .[id number] ROWAN Administration Sodium Chloride 500 mls @ 999 mls/hr 04/21/20 17:45 04/21/20 17:47 Sod Chlor 0.9% 1000ml Bag IV 04/21/20 18:15 999 mls/hr .Q31M ROWAN Administration Discontinued Medications Generic Name Dose Route Start Last Admin Trade Name Freq PRN Reason Stop Dose Admin Ondansetron HCl 4 mg 04/21/20 15:20 04/21/20 15:23 Zofran 4mg/2ml Vial IV 04/21/20 15:21 4 mg ONCE ONE Administration Medical Decision Narrative: Patient improved with antiemetics Nausea/Vomiting/Diarrhea HPI - General Chief complaint: Nausea/Vomiting/Diarrhea Stated complaint: dehydration Time Seen by Provider: 04/21/20 14:57 Mode of Arrival: Wheelchair Limitations: No Limitations Description of Symptoms (Recalled from ER Triage Doc. by RN): Pt reports vomitting x2 days. Pt reports she is concerned she is dehydrated. When asked about fevers, pt states has had recent fevers r/t infection in pain pump . Pt reports she was
[2020-04-21 18:34] VITALS: BP 134/90; PULSE 63; RESP 18; TEMP 36.6; O2SAT 98
== END 2020-04-21 18:34 | disposition home or self-care (01) ==
PROVIDERS: Emergency Provider Family Medicine; PCP Internal Medicine Adolescent Medicine
DX: K52.9 Noninfective gastroenteritis and colitis, unspecified (principal); I10 Essential (primary) hypertension; E78.5 Hyperlipidemia, unspecified; M81.0 Age-related osteoporosis without current pathological fracture; E03.9 Hypothyroidism, unspecified; F41.8 Other specified anxiety disorders; K21.9 Gastro-esophageal reflux disease without esophagitis; Z88.2 Allergy status to sulfonamides; Z79.899 Other long term (current) drug therapy
CPT/HCPCS: 80053; 85025; 96361; 96365; 96366; 96375; 99283; J2405

== ENCOUNTER → 2020-04-27 13:52 | Outpatient (POV) | payer MEDICAID, SELFPAY ==
[2020-04-27 14:06] VITALS: BP 132/78; PULSE 85; RESP 18; O2SAT 97; BMI 22.1
--- NOTE | 2020-04-27 14:14 | P.PCN_ITS ---
- Procedure Date: 04/27/20 Time: 14:14 Anesthesiologist:: Natali Tian APRN Complications:: None Pre-procedure Diagnosis:: Degenerative disc disease lumbar spine with lumbar radiculopathy symptoms, multiple compression fractures with history of cerebral palsy Post-procedure Diagnosis:: Same Indications for Procedure:: Patient is a 59-year-old white female who presents today for intrathecal pain pump adjustment. She rates her pain a 3 out of 10 today, however, she has multiple complaints today. She says that the pump is not giving her any relief. She said she is having to go to the ER on multiple occasions due to her pain. She says it is affecting her bladder incontinence, as well as causing her to continue to have a headache. She says she wants the pump taken out today. Patient says that the pump is not working for her and has caused her more problems than good. She says that she wants it taken out at this point. She is on morphine at 0.1 mg/day. She says she would like to proceed with injective therapy to her low back. Review of Systems General: No recent weight changes, no fever, no sleep disturbances Respiratory: No cough, no shortness of air, no recurring pulmonary infections Cardiovascular/peripheral vascular: No chest pain, no palpitations, no edema, no shortness of breath Gastrointestinal: No new onset incontinence, normal bowel movements reported Genitourinary: No new onset incontinence Musculoskeletal: Low back pain Psychiatric: Normal mood/affect Neurological: [Denies weakness in extremities], [denies balance issues] Procedure Details:: Informed consent was obtained and the risk and benefits of the procedure were explained to the patient. Patient was taken to the procedure room where noninvasive monitoring was placed including noninvasive blood pressure cuff and pulse oximeter. Patient's pump was interrogated and was reprogrammed to 0 mg/day. The patient tolerated the procedure well with no complications. Plan and Disposition:: Patient's intrathecal pump was turned off today. She would like to undergo an injection. We will schedule her for a lumbar epidural steroid injection at L4- L5. She says she is not on any anticoagulation therapy. We can follow-up with her after her injection to reassess her symptoms. The patient and I specifically discussed risk factors for COVID19. These risks include, but are not limited to age greater than 60, heart or lung disease, diabetes, immunosuppression, and travel. We also discussed NSAIDs may worsen COVID19 infe ction or symptoms. Patient should not use NSAIDs to treat COVID19 signs or symptoms. Patient was also informed that any type of corticosteroid of any form (oral or injection) will decrease the patient's immune system response and may increase the likelihood of COVID19 [address] Robledo has reviewed this note and agrees with this plan of care. This note was dictated using voice recognition software and make contain errors or omissions.
== END ==
PROVIDERS: PCP Internal Medicine Adolescent Medicine; Visit Provider Clinical Nurse Specialist Family Health
DX: M51.16 Intervertebral disc disorders with radiculopathy, lumbar region (principal); M48.56XS Collapsed vertebra, not elsewhere classified, lumbar region, sequela of fracture
CPT/HCPCS: 99212

== ENCOUNTER 2020-05-05 14:58 | Emergency (ER) | payer MEDICAID, SELFPAY ==
[2020-05-05 15:08] VITALS: BP 145/98; PULSE 109; RESP 17; TEMP 37.2; O2SAT 100; BMI 21.9
--- NOTE | 2020-05-05 15:10 | XR_ITS ---
PROCEDURE: XR CHEST PORTABLE CLINICAL HISTORY: cough, fever COMPARISON: CR CXR CHEST(2 VIEWS-NOT PORTABLE) from 11/21/2016 CR CXR CHEST(2 VIEWS-NOT PORTABLE) from 08/22/2017 CR CXR2V XR chest 2V from 12/15/2017 FINDINGS: The cardiomediastinal silhouette and pulmonary vascularity are within normal limits. The lungs are clear without infiltrates, suspicious nodules, or pleural effusions. Prior kyphoplasty at T11 and T12 IMPRESSION: No acute findings. Dictated by: Brennon Collado MD 05/05/2020 16:53 Brennon Collado MD in [place] 05/05/2020 16:53
[2020-05-05 15:17] VITALS: BP 145/101; PULSE 98; O2SAT 95
--- NOTE | 2020-05-05 15:19 | HMH.EDGENADL ---
ED Disposition Clinical Impression: Non-intractable vomiting with nausea, Hypokalemia UTI (urinary tract infection) Qualifiers: Urinary tract infection type: acute cystitis Hematuria presence: without hematuria Qualified Code(s): N30.00 - Acute cystitis without hematuria Opiate dependence Qualifiers: Substance use status: uncomplicated Qualified Code(s): F11.20 - Opioid dependence, uncomplicated Disposition: Home, Self-Care Condition on Discharge: Good Instructions: DI for Urinary Tract Infection (UTI), DI for Hypokalemia Prescriptions: Potassium Chloride [Klor-con 20 mEq tablet] 20 meq PO DAILY #30 tab Transmission Status: Received by [id number] nitrofurantoin macrocrystaL [Macrodantin 100mg capsule] 100 mg PO BID 5 Days #10 cap Transmission Status: Received by [id number] Referrals: Luis Henderson MD [Primary Care Provider] - Time of Disposition: 17:34 - Critical Care Critical Care Time: No Attestation: On , the high probability of a clinically significant, sudden or life threatening deterioration of the following system(s) required my full and direct attention, intervention and personal management. The time I documented below is in addition to time spent performing reported procedures but includes the following listed in this critical care notation. Medical Decision Making - Medical Records Medical records reviewed: Yes: I reviewed the patient's medical records. - Claus Inquiry Pt receiving controlled substance: No Vital Signs: 05/05/20 15:08 05/05/20 15:17 05/05/20 17:28 Temperature 99.0 F Temperature Source Oral Pulse Rate Pulse Rate [Right Radial] 109 H 98 H 100 H Respiratory Rate 17 Blood Pressure Blood Pressure [Right Arm] 145/98 H 145/101 H 130/81 Blood Pressure Mean [Right Arm] 113 115 97 Blood Pressure Source [Right Arm] Automatic Cuff Automatic Cuff Blood Pressure Position [Right Arm] Sitting Sitting 02 Sat by Pulse Oximetry 100 95 96 Oxygen Delivery Method Room Air Room Air 05/05/20 18:19 05/05/20 18:53 Temperature 98.0 F Temperature Source Oral Pulse Rate 96 H Pulse Rate [Right Radial] 95 H Respiratory Rate 17 Blood Pressure 127/76 Blood Pressure [Right Arm] 135/82 Blood Pressure Mean [Right Arm] 99 Blood Pressure Source [Right Arm] Automatic Cuff Blood Pressure Position [Right Arm] Sitting 02 Sat by Pulse Oximetry 95 Oxygen Delivery Method Room Air Room Air - Lab Data Lab Results 05/05/20 15:00: WBC 9.8, RBC 5.04, Hgb 12.8, Hct 38.0, MCV 75.4 L, MCH 25.3 L, MCHC 33.6, RDW 15.4, Plt Count 242, MPV 8.3, Neut % (Auto) 85.2 H, Lymph % (Auto) 9.1 L, [place] % (Auto) 3.0, Eos % (Auto) 2.4, Baso % (Auto) 0.3, Neut # (Auto) 8.4 H, Lymph # (Auto) 0.9, [place] # (Auto) 0.3, Eos # (Auto) 0.2, Baso # (Auto) 0.0, Total Counted 100, Neutrophils % (Manual) 84 H, Lymphocytes % (Manual) 14, Monocytes % (Manual) 2, Platelet Estimate Normal, Anisocytosis 1+, Microcytosis 1+ 05/05/20 15:00: Sodium 130 L, Potassium 2.6 L*, Chloride 89 L, Carbon Dioxide 28, Anion Gap 15.6 H, BUN 17, Creatinine 0.30 L, Estimated Creat Clear 58, Estimated GFR 226, Est GFR ( Amer) 274, Glucose 128 H, Calcium 8.8, Total Bilirubin 0.8, AST 22, ALT 15, Alkaline Phosphatase 76, Total Protein 8.0, Albumin 4.4, Globulin 3.6 H, Albumin/Globulin Ratio 1.2, Lipase 147 05/05/20 15:30: Urine Color Yellow, Urine Appearance Cloudy, Urine pH 6.0, Ur Specific [place] >= 1.030, Urine Protein Trace, Urine Glucose (UA) Negative, Urine Ketones 1+, Urine Blood Negative, Urine Nitrate Positive, Urine Bilirubin Negative, Urine Urobilinogen 0.2, Ur Leukocyte Esterase Trace, Urine RBC Occasional, Urine WBC 10-20, Ur Squamous Epith Cells 5-10, Calcium Oxalate Crystal 1+, Urine Bacteria 2+ Result diagrams: 05/05/20 15:00 05/05/20 15:00 Orders (Tests/Meds): ED MEDICATIONS Discontinued Medications Generic Name Dose Route Start Last Admin Trade Name Freq PRN Reason Stop Dose Admi
[2020-05-05 15:39] LABS: Appearance,Urine CLOUDY (Clear); Blood, Urine Negative (Negative); Color,Urine YELLOW (Yellow); Glucose,Urine (UA) Negative (Negative); Ketones,Urine 1+ (Negative); Leukocyte Esterase,Urine TRACE (Negative); Microscopic, Urine URINE MICROSCOPIC (MICROSCOPIC); Nitrate,Urine POSITIVE (Negative); Protein,Urine TRACE (Negative); Specific Gravity, Urine >= 1.030 (1.005-1.030); Urobilinogen,Urine 0.2 EU/dl (0.2)
[2020-05-05 15:41] LABS: Bilirubin,Urine Negative (Negative)
[2020-05-05 15:41] LABS: Basophils % 0.3 % (0.1-2.0); Eosinophils # 0.2 K/mm3 (0.0-0.4); Eosinophils % 2.4 % (0.1-12.0); Hemoglobin 12.8 g/dL (12.2-16.2); Lymphocytes # 0.9 K/mm3 (0.7-4.5); Lymphocytes % 9.1 % (10-50); Mean Corpuscular HGB Conc 33.6 g/dL (31.8-35.4); Mean Corpuscular Hemoglobin 25.3 pg (27.0-31.2); Mean Corpuscular Volume 75.4 fl (81-99); Mean Platelet Volume 8.3 fl (7.4-10.4); Monocytes # 0.3 K/mm3 (0.1-1.0); Neutrophils # 8.4 K/mm3 (1.8-7.8); Neutrophils % 85.2 % (37.0-80.0); Platelet Count 242 K/mm3 (142-424); Red Blood Count 5.04 M/mm3 (4.20-5.40); Red Cell Distribution Width 15.4 % (11.5-17.5); White Blood Count 9.8 K/mm3 (4.8-10.8)
[2020-05-05 15:43] LABS: MANUAL DIFFERENTIAL MANUAL DIFFERENTIAL (MANUAL DIFF)
[2020-05-05 15:48] LABS: Bacteria,Urine 2+ /lpf; Calcium Oxalate Crystals,Urine 1+ /lpf; RBC,Urine Occasional #/hpf (0-3)
[2020-05-05 15:50] LABS: Alanine Aminotransferase 15 U/L (12-78); Albumin Level 4.4 g/dl (3.5-5.0); Albumin/Globulin Ratio 1.2 (1.1-1.8); Alkaline Phosphatase 76 U/L (38-126); Anion Gap 15.6 mEq/L (5-15); Aspartate Amino Transferase 22 U/L (14-36); Bilirubin,Total 0.8 mg/dl (0.2-1.3); Blood Urea Nitrogen 17 mg/dl (7-17); Calcium 8.8 mg/dl (8.4-10.2); Carbon Dioxide 28 mmol/L (22.0-30.0); Chloride 89 mmol/L (98-107); Creatinine Clearance Estimated 58 mL/min (50-200); Estimated Glomerular Filt Rate 226 ml/min (>60); GFR (African American) 274 ML/MIN (>60); Globulin 3.6 g/dL (1.3-3.2); Glucose 128 mg/dl (74-100); Lipase 147 U/L (23-300); Potassium 2.6 mmoL/L (3.5-5.1); Sodium 130 mmol/L (136-145)
--- NOTE | 2020-05-05 15:51 | PC.NURSE ---
critical low potassium reported to dr pearson. awaiting further orders.
[2020-05-05 15:55] LABS: Lymphocytes % 14 % (10-50); Monocytes % 2 % (2-9); Neutrophils % 84 % (42-76); Total Cells Counted 100
[2020-05-05 15:56] LABS: Anisocytosis 1+; Microcytosis 1+; Platelet Estimate Normal
[2020-05-05 17:28] VITALS: BP 130/81; PULSE 100; O2SAT 96
[2020-05-05 18:19] VITALS: BP 135/82; PULSE 95; O2SAT 95
[2020-05-05 18:53] VITALS: BP 127/76; PULSE 96; RESP 17; TEMP 36.7; O2SAT 96
== END 2020-05-05 18:54 | disposition home or self-care (01) ==
PROVIDERS: Emergency Provider Emergency Medicine; PCP Internal Medicine Adolescent Medicine
DX: N30.00 Acute cystitis without hematuria (principal); R11.2 Nausea with vomiting, unspecified; E87.6 Hypokalemia; F11.20 Opioid dependence, uncomplicated; G80.9 Cerebral palsy, unspecified; F41.8 Other specified anxiety disorders; K21.9 Gastro-esophageal reflux disease without esophagitis; E78.5 Hyperlipidemia, unspecified; I10 Essential (primary) hypertension; E03.9 Hypothyroidism, unspecified; M81.0 Age-related osteoporosis without current pathological fracture; Z79.899 Other long term (current) drug therapy; Z88.2 Allergy status to sulfonamides; Z90.49 Acquired absence of other specified parts of digestive tract
CPT/HCPCS: 71045; 80053; 81001; 83690; 85007; 85025; 87086; 87088; 87186; 96365; 96367; 96375; 99283

== ENCOUNTER 2020-05-17 16:58 | Emergency (ER) | payer MEDICAID, SELFPAY ==
[2020-05-17 16:58] VITALS: BP 179/88; PULSE 68; RESP 20; TEMP 37.1; O2SAT 98; BMI 22.1
--- NOTE | 2020-05-17 17:06 | CT_ITS ---
PROCEDURE: CT ABDOMEN PELVIS W CON CLINICAL INDICATION: pain Abdominal pain with nausea and vomiting COMPARISON: CT ABDPELWO CT abdomen pelvis wo con from 10/07/2018 TECHNIQUE: IV Contrast: 75ML OPTIRAY 350 Oral Contrast None Axial images obtained with sagittal and coronal reformats. All CT scans at the facility use one or more dose reduction, viz: automated exposure control, ma/kV adjustment per patient size (including targeted exams where dose is matched to indication, i.e. head), or iterative reconstruction technique. FINDINGS: LOWER THORAX: There is minimal thickening of the pericardium nonspecific. There is a small hiatal hernia. ABDOMEN & PELVIS: Motion artifact somewhat obscures fine detail. The liver, spleen, gallbladder, adrenal glands, and pancreas have an unremarkable appearance. There is a nonobstructing 4 mm stone in the lower pole of the left kidney. No hydronephrosis. No ureteral calculi. No intestinal obstruction or free air. There appears to been a prior appendectomy. Fluid-filled loops of small bowel are present which are not significantly distended. There are few air-fluid levels. No pelvic mass or abnormal localized fluid collection. There is a pain pump present with the pump in the right flank area. The tip of the catheter is at the T12 level. Chronic wedge compression fractures are present at L2-T12 and T11 with prior kyphoplasty at T11 and T12. IMPRESSION: 1. Fluid-filled loops of small bowel with a few scattered air-fluid levels nondistended which may be seen with enteritis. 2. Chronic compression fractures at T12 T11 and L2. 3. Nonobstructing left nephrolithiasis. 4. Hiatal hernia Dictated by: Brennon Collado MD 05/18/2020 07:05 Brennon Collado MD in [place] 05/18/2020 07:05
--- NOTE | 2020-05-17 17:06 | XR_ITS ---
PROCEDURE: XR FEMUR LT 2V CLINICAL INDICATION: pain COMPARISON: CR XR HIP LT 2-3V W/PELVIS from 05/17/2020 FINDINGS: No fracture or dislocation. No lytic or blastic change. There is normal mineralization. There are mild osteoarthritic changes at the knee involving all 3 compartments. There is a pain pump along the right lower quadrant with an epidural catheter projected superiorly. The tip is not visible on the exam and at least at or above the L2 level. Other findings:None. IMPRESSION: Osteoarthritic changes of the knee. Otherwise negative left femur and hip Dictated by: Brennon Collado MD 05/18/2020 05:49 Brennon Collado MD in [facility] 05/18/2020 05:49
--- NOTE | 2020-05-17 17:06 | CT_ITS ---
PROCEDURE: CT THORACIC SPINE WO CON CLINICAL HISTORY: pain Multiple falls, back pain COMPARISON: CT TSPWO CT THORACIC SPINE W/O CONTRAST from 05/31/[address] abdomen pelvis wo con from 10/07/2018 TECHNIQUE: Axial images obtained with sagittal and coronal reformats. All CT scans at the facility use one or more dose reduction, viz: automated exposure control, ma/kV adjustment per patient size (including targeted exams where dose is matched to indication, i.e. head), or iterative reconstruction technique. FINDINGS: Study is somewhat limited secondary to motion artifact. There is diffuse osteopenia. There are chronic compression fractures at T11-T12. There has been prior vertebroplasty at these levels. There is retropulsion of the posterior inferior aspect of T12 vertebral body by 6 mm. There is an epidural catheter present with the superior aspect at the T12 level. IMPRESSION: 1. Limited exam. No acute fracture. 2. Prior kyphoplasty with chronic wedge compression changes of T11 and T12. Dictated by: Brennon Collado MD 05/18/2020 06:56 Brennon Collado MD in [facility] 05/18/2020 06:56
--- NOTE | 2020-05-17 17:06 | CT_ITS ---
PROCEDURE: CT LUMBAR SPINE WO CON CLINICAL HISTORY: pain Low back pain radiating in the left hip. Multiple falls. COMPARISON: CT ABDPELWO CT abdomen pelvis wo con from 10/07/2018 TECHNIQUE: Axial images obtained with sagittal and coronal reformats. All CT scans at the facility use one or more dose reduction, viz: automated exposure control, ma/kV adjustment per patient size (including targeted exams where dose is matched to indication, i.e. head), or iterative reconstruction technique. FINDINGS: Chronic wedge compression changes are present involving T12 with retropulsion of the posterior inferior aspect of T12 by approximately 5 mm. Chronic compression fracture also involves L2 with retropulsion of the posterior superior aspect of L2 by 6 mm. Epidural catheter is present. The superior tip is on the left posterior epidural region at the T12 area. There is degenerative disc disease at L3-L4 L4-5 and L5-S1 with bulging discs. Facet ligamentum hypertrophy is present at L4-5 with bilateral foraminal narrowing. Bulging disc is also present at L5-S1 with endplate hypertrophic change with bilateral foraminal narrowing. There is diffuse osteopenia. IMPRESSION: 1. Chronic changes with chronic wedge compression changes of T12 and L2 with lumbar spondylosis as detailed above. 2. No acute fracture Dictated by: Brennon Collado MD 05/18/2020 06:59 Brennon Collado MD in [place] 05/18/2020 06:59
[2020-05-17 17:27] LABS: Basophils % 0.3 % (0.1-2.0); Eosinophils # 0.1 K/mm3 (0.0-0.4); Eosinophils % 1.6 % (0.1-12.0); Hematocrit 38.5 % (37.0-47.0); Hemoglobin 12.5 g/dL (12.2-16.2); Lymphocytes # 1.3 K/mm3 (0.7-4.5); Lymphocytes % 18.1 % (10-50); Mean Corpuscular HGB Conc 32.4 g/dL (31.8-35.4); Mean Corpuscular Hemoglobin 25.3 pg (27.0-31.2); Mean Corpuscular Volume 78.1 fl (81-99); Mean Platelet Volume 7.7 fl (7.4-10.4); Monocytes # 0.3 K/mm3 (0.1-1.0); Monocytes % 4.3 % (1.7-9.3); Neutrophils # 5.3 K/mm3 (1.8-7.8); Neutrophils % 75.8 % (37.0-80.0); Platelet Count 216 K/mm3 (142-424); Red Blood Count 4.92 M/mm3 (4.20-5.40); Red Cell Distribution Width 15.9 % (11.5-17.5)
[2020-05-17 17:28] LABS: Chloride 103 mmol/L (98-107)
[2020-05-17 17:29] LABS: Potassium 3.5 mmoL/L (3.5-5.1); Sodium 139 mmol/L (136-145)
[2020-05-17 17:31] LABS: Alanine Aminotransferase 18 U/L (12-78); Albumin Level 3.9 g/dl (3.5-5.0); Albumin/Globulin Ratio 1.2 (1.1-1.8); Alkaline Phosphatase 67 U/L (38-126); Anion Gap 13.5 mEq/L (5-15); Aspartate Amino Transferase 25 U/L (14-36); Bilirubin,Total 0.3 mg/dl (0.2-1.3); Blood Urea Nitrogen 15 mg/dl (7-17); Calcium 9.2 mg/dl (8.4-10.2); Carbon Dioxide 26 mmol/L (22.0-30.0); Creatinine Clearance Estimated 58 mL/min (50-200); Estimated Glomerular Filt Rate 162 ml/min (>60); GFR (African American) 196 ML/MIN (>60); Globulin 3.2 g/dL (1.3-3.2); Glucose 144 mg/dl (74-100); Total Protein,Serum 7.1 g/dl (6.3-8.2)
[2020-05-17 17:33] LABS: Microscopic, Urine URINE MICROSCOPIC (MICROSCOPIC)
[2020-05-17 17:34] VITALS: BP 161/141; PULSE 114; RESP 18; O2SAT 92
[2020-05-17 17:34] LABS: Appearance,Urine CLEAR (Clear); Bilirubin,Urine Negative (Negative); Blood, Urine Negative (Negative); Color,Urine YELLOW (Yellow); Glucose,Urine (UA) Negative (Negative); Ketones,Urine Negative (Negative); Leukocyte Esterase,Urine 2+ (Negative); Nitrate,Urine POSITIVE (Negative); Protein,Urine Negative (Negative); Specific Gravity, Urine 1.025 (1.005-1.030); Urobilinogen,Urine 0.2 EU/dl (0.2)
[2020-05-17 17:46] LABS: Bacteria,Urine 3+ /lpf; WBC,Urine 20-50 #/hpf (0-3)
--- NOTE | 2020-05-17 17:57 | PC.NURSE ---
pt to ct
[2020-05-17 18:37] VITALS: BP 150/99; PULSE 118; O2SAT 97
--- NOTE | 2020-05-17 19:06 | PC.NURSE ---
report received from wen ribeiro
--- NOTE | 2020-05-17 21:28 | HMH.EDGENADL ---
ED Disposition Clinical Impression: UTI (urinary tract infection) Qualifiers: Urinary tract infection type: acute cystitis Hematuria presence: without hematuria Qualified Code(s): N30.00 - Acute cystitis without hematuria Disposition: Home, Self-Care Condition on Discharge: Fair Instructions: DI for Chronic Pain -- Adult, Catheter-Associated Urinary Tract Infection Prescriptions: Hydrocodone/Acetaminophen [[place] 7.5-325 Tablet] 1 tab PO Q4H PRN #7 tab PRN Reason: Moderate To Severe Pain Prescription Printed Cefdinir [Omnicef 300mg Capsule] 300 mg PO BID 7 Days #14 cap Transmission Status: Pending to [id number] Referrals: Luis Henderson MD [Primary Care Provider] - Time of Disposition: 21:39 - Critical Care Critical Care Time: No Attestation: On 05/17/20, the high probability of a clinically significant, sudden or life threatening deterioration of the following system(s) required my full and direct attention, intervention and personal management. The time I documented below is in addition to time spent performing reported procedures but includes the following listed in this critical care notation. Medical Decision Making - Medical Records Medical records reviewed: Yes: I reviewed the patient's medical records. MR Comment: I took this patient over from dr Cole Hunt, She had complained of a fall and chronic pain. Her work up is negative except for a UTI. She is getting Rocephin for the UTI. Dr Hunt has advised that she can be discharged home with a prescription for Cefdinir. I have seen the patient. She is waiting to see a pain clinic. Will give her a few norco as she is going to be right back w/o some pain pills. Explained details to patient - Claus Inquiry Pt receiving controlled substance: Yes Claus was queried for this patient: No Reason not queried -: Emergent pt cond-no time Risks and benefits of using a controlled substance: were discussed with pt by me Vital Signs: 05/17/20 16:58 05/17/20 17:34 05/17/20 18:37 Temperature 98.8 F Temperature Source Oral Pulse Rate [Right Radial] 68 114 H 118 H Respiratory Rate 20 18 Blood Pressure [Right Arm] 179/88 H 161/141 H 150/99 H Blood Pressure Mean [Right Arm] 118 147 116 Blood Pressure Source [Right Arm] Automatic Cuff Automatic Cuff Automatic Cuff Blood Pressure Position [Right Arm] Sitting Sitting Sitting 02 Sat by Pulse Oximetry 98 92 L 97 Oxygen Delivery Method Room Air Room Air - Lab Data Lab results reviewed: Yes: I reviewed the patient's lab results. Lab Results 05/17/20 17:00: WBC 7.0, RBC 4.92, Hgb 12.5, Hct 38.5, MCV 78.1 L, MCH 25.3 L, MCHC 32.4, RDW 15.9, Plt Count 216, MPV 7.7, Neut % (Auto) 75.8, Lymph % (Auto) 18.1, [place] % (Auto) 4.3, Eos % (Auto) 1.6, Baso % (Auto) 0.3, Neut # (Auto) 5.3, Lymph # (Auto) 1.3, [place] # (Auto) 0.3, Eos # (Auto) 0.1, Baso # (Auto) 0.0 05/17/20 17:00: Sodium 139, Potassium 3.5, Chloride 103, Carbon Dioxide 26, Anion Gap 13.5, BUN 15, Creatinine 0.40 L, Estimated Creat Clear 58, Estimated GFR 162, Est GFR ( Amer) 196, Glucose 144 H, Calcium 9.2, Total Bilirubin 0.3, AST 25, ALT 18, Alkaline Phosphatase 67, Total Protein 7.1, Albumin 3.9, Globulin 3.2, Albumin/Globulin Ratio 1.2 05/17/20 17:20: Urine Color Yellow, Urine Appearance Clear, Urine pH 6.0, Ur Specific [place] 1.025, Urine Protein Negative, Urine Glucose (UA) Negative, Urine Ketones Negative, Urine Blood Negative, Urine Nitrate Positive, Urine Bilirubin Negative, Urine Urobilinogen 0.2, Ur Leukocyte Esterase 2+ A, Urine RBC 3-5, Urine WBC 20-50, Ur Squamous Epith Cells 5-10, Urine Bacteria 3+ Result diagrams: 05/17/20 17:00 05/17/20 17:00 Orders (Tests/Meds): ED MEDICATIONS Generic Name Dose Route Start Last Admin Trade Name Freq PRN Reason Stop Dose Admin Ceftriaxone Sodium 1 gm/ 50 mls @ 100 mls/hr 05/17/20 21:00 05/17/20 20:50 Sodium Chloride IV 05/31/20 20:59 100 mls/hr Q24H ROWAN Administration
[2020-05-17 21:50] VITALS: BP 154/115; PULSE 82; RESP 16; TEMP 36.5; O2SAT 94
== END 2020-05-17 22:20 | disposition home or self-care (01) ==
PROVIDERS: Emergency Provider Physician Assistant; PCP Internal Medicine Adolescent Medicine
DX: N30.00 Acute cystitis without hematuria (principal); M25.552 Pain in left hip; I10 Essential (primary) hypertension; E78.5 Hyperlipidemia, unspecified; F41.8 Other specified anxiety disorders; E03.9 Hypothyroidism, unspecified; K21.9 Gastro-esophageal reflux disease without esophagitis; M81.0 Age-related osteoporosis without current pathological fracture; G80.9 Cerebral palsy, unspecified; Z90.49 Acquired absence of other specified parts of digestive tract; Z79.899 Other long term (current) drug therapy
CPT/HCPCS: 72128; 72131; 73502; 73552; 74177; 80053; 81001; 85025; 87086; 87088; 87186; 96365; 96375; 99283; Q9967

== ENCOUNTER 2020-05-24 14:43 | Day surgery (SDC) | payer MEDICAID, SELFPAY ==
[2020-05-24 13:06] VITALS: BP 134/96; PULSE 110; RESP 20; O2SAT 96; BMI 22.1
[2020-05-24 14:30] VITALS: BP 145/96; PULSE 108; RESP 20; O2SAT 96; BMI 21.9
[2020-05-24 14:43] VITALS: BP 132/77; BP 138/88; PULSE 84; PULSE 85; RESP 18; O2SAT 99
[2020-05-24 15:00] VITALS: BP 150/99; PULSE 109; RESP 20; O2SAT 94
--- NOTE | 2020-05-24 15:32 | P.PCN_ITS ---
- Procedure Date: 05/24/20 Time: 15:32 Anesthesiologist:: Aneesh Robledo MD Complications:: None Pre-procedure Diagnosis:: Sacroiliitis and trochanteric bursitis Post-procedure Diagnosis:: Same Indications for Procedure:: This patient is a pleasant 59-year-old white female who currently has an intrathecal pain pump in place. Her pain pump is currently off. She recently has developed some increasing left hip pain. She is tender over her left trochanteric bursa. She is also tender over the left SI joint. She has a positive Fidencio's test on left side. She is positive SI joint compression test on left side. She had positive Dylan test on the left side. I believe her worsening pain today is from left-sided sacroiliitis and trochanteric bursitis. We will do a left SI joint injection left trochanteric bursa injection today. I have told her to keep her pain pump off. She also says that she is allergic to morphine. We may consider restarting her pain pump with Dilaudid in the future if needed. For today we will do a left SI joint injection left trochanteric bursa injection. We will reevaluate her in 2 weeks. Procedure Details:: Left SI joint injection under fluoroscopy Informed consent was obtained and the risks and benefits of the procedure was explained to the patient. Patient was taken to the procedure room. Patient was placed prone on the procedure table. The left hip was prepped using ChloraPrep. The skin and subcutaneous tissues were anesthetized using lidocaine. I placed a 22-gauge spinal needle into the inferior aspect of the left SI joint. Needle placement was confirmed with dye. After this we injected 5 mL bupivacaine 0.25% and Depo-Medrol 40 mg into the left SI joint. The patient tolerated the procedure well with no complication. Left trochanteric bursa injection under fluoroscopy Informed consent was obtained and the risk and benefits of the procedure was explained to the patient. The patient was taken to procedure room and placed prone on the procedure table. The left hip was prepped using ChloraPrep. The skin and subcutaneous tissues were anesthetized using lidocaine. I placed a 22- gauge spinal needle under fluoroscopic guidance and advanced until it contacted the left greater trochanter. Needle placement was confirmed with dye. After this we injected 5 mL bupivacaine 0.25% and Depo-Medrol 40 mg. Patient tolerated the procedure well with no complications. Plan and Disposition:: We will follow-up with her and 2 weeks. Will reevaluate her symptoms at that t jessica.
== END 2020-05-24 15:00 | disposition home or self-care (01) ==
LOC: SC.PAINP 14:44
PROVIDERS: PCP Internal Medicine Adolescent Medicine; Visit Provider Anesthesiology
DX: M46.1 Sacroiliitis, not elsewhere classified (principal); M70.62 Trochanteric bursitis, left hip; F41.9 Anxiety disorder, unspecified; F32.9 Major depressive disorder, single episode, unspecified; K21.9 Gastro-esophageal reflux disease without esophagitis; Z88.8 Allergy status to other drugs, medicaments and biological substances; Z88.2 Allergy status to sulfonamides; G80.9 Cerebral palsy, unspecified; G81.94 Hemiplegia, unspecified affecting left nondominant side; Z87.81 Personal history of (healed) traumatic fracture; Z79.899 Other long term (current) drug therapy; Z79.51 Long term (current) use of inhaled steroids
CPT/HCPCS: 20610; 27096; 77002; 99212; G0260; J1030

== ENCOUNTER → 2020-06-02 10:52 | Outpatient (CLI) | payer MEDICAID, SELFPAY ==
[2020-06-02 11:34] LABS: Basophils % 0.6 % (0.1-2.0); Eosinophils # 0.1 K/mm3 (0.0-0.4); Eosinophils % 1.2 % (0.1-12.0); Hematocrit 38.8 % (37.0-47.0); Hemoglobin 12.6 g/dL (12.2-16.2); Lymphocytes # 1.5 K/mm3 (0.7-4.5); Lymphocytes % 19.7 % (10-50); Mean Corpuscular HGB Conc 32.4 g/dL (31.8-35.4); Mean Corpuscular Hemoglobin 25.6 pg (27.0-31.2); Mean Platelet Volume 7.9 fl (7.4-10.4); Monocytes # 0.4 K/mm3 (0.1-1.0); Neutrophils # 5.7 K/mm3 (1.8-7.8); Neutrophils % 73.6 % (37.0-80.0); Platelet Count 198 K/mm3 (142-424); Red Blood Count 4.92 M/mm3 (4.20-5.40); White Blood Count 7.7 K/mm3 (4.8-10.8)
[2020-06-02 17:50] LABS: Chloride 104 mmol/L (98-107); Potassium 4.4 mmoL/L (3.5-5.1); Sodium 138 mmol/L (136-145)
[2020-06-02 17:52] LABS: Alanine Aminotransferase 12 U/L (12-78); Aspartate Amino Transferase 19 U/L (14-36); Blood Urea Nitrogen 16 mg/dl (7-17); Estimated Glomerular Filt Rate 125 ml/min (>60); GFR (African American) 152 ML/MIN (>60)
[2020-06-02 17:53] LABS: Albumin Level 3.8 g/dl (3.5-5.0); Albumin/Globulin Ratio 1.3 (1.1-1.8); Alkaline Phosphatase 59 U/L (38-126); Anion Gap 12.4 mEq/L (5-15); Bilirubin,Total 0.4 mg/dl (0.2-1.3); Carbon Dioxide 26 mmol/L (22.0-30.0); Chol/HDL Ratio 4.4 (1-3.5); Cholesterol 215 mg/dl (140-200); Globulin 2.9 g/dL (1.3-3.2); Glucose 109 mg/dl (74-100); HDL Cholesterol 49 mg/dl (40-60); Total Protein,Serum 6.7 g/dl (6.3-8.2); Triglycerides 135 mg/dl (30-150); VLDL Cholesterol 27 mg/dL (0-40)
[2020-06-02 18:04] LABS: Direct LDL Cholesterol 149.81 mg/dL (100-129)
[2020-06-02 18:09] LABS: 25-OH Vitamin D, Total 43.8 ng/mL (30-100)
[2020-06-02 18:24] LABS: Thyroid Stimulating Hormone 1.63 uIU/mL (0.465-4.68)
[2020-06-02 20:36] LABS: Vitamin B12 583 pg/mL (239-931)
== END ==
PROVIDERS: Visit Provider Internal Medicine Adolescent Medicine
DX: E03.9 Hypothyroidism, unspecified (principal); E53.8 Deficiency of other specified B group vitamins; E55.9 Vitamin D deficiency, unspecified
CPT/HCPCS: 36415; 80053; 80061; 82306; 82607; 84443; 85025

== ENCOUNTER 2020-06-02 11:14 | Outpatient (POV) | payer MEDICAID, SELFPAY ==
[2020-06-02 12:26] VITALS: BP 97/51; PULSE 98; RESP 20; TEMP 36.7; O2SAT 96; BMI 20.5
[2020-06-02 12:49] VITALS: BP 147/77; PULSE 85; RESP 18; O2SAT 99
--- NOTE | 2020-06-02 12:50 | HMH.PMPROC ---
- Procedure Date: 06/02/20 Time: 12:50 Anesthesiologist:: Aneesh Robledo MD Complications:: None Pre-procedure Diagnosis:: Degenerative disc disease of lumbar spine with lumbar radiculopathy symptoms Post-procedure Diagnosis:: Same Indications for Procedure:: This patient is a pleasant 59-year-old white female who we are treating for low back pain with left-sided hip pain. She benefited greatly from her left SI joint injection left trochanteric bursa injection. She still has some increasing pain in her back and down her leg. We will plan on lumbar epidural steroid injection today to see if this will help with her residual pain symptoms. Procedure Details:: Lumbar epidural steroid injection under fluoroscopy Informed consent was obtained and the risk and benefits of the procedure was explained to the patient. The patient was taken to the procedure room. The patient was placed prone on the procedure table. The patient was prepped and draped in sterile fashion. C-arm fluoroscopy was used to view the lumbar spine. Skin and subcutaneous tissues were anesthetized using lidocaine. I placed an 18-gauge epidural needle and advanced into the L4-L5 interspace using fluoroscopic guidance and [id number] to air. After confirmation of needle placement in the epidural space with dye I injected 2 mL of lidocaine 1.5% with Depo-Medrol 80 mg. Patient tolerated the procedure well with no complications. Plan and Disposition:: We will follow-up with her in 2 weeks. Will reevaluate her symptoms at that time.
[2020-06-02 12:55] VITALS: BP 97/51; PULSE 98; RESP 18; O2SAT 96
== END 2020-06-02 12:55 | disposition home or self-care (01) ==
LOC: SC.PAINP 11:15
PROVIDERS: PCP Internal Medicine Adolescent Medicine; Visit Provider Anesthesiology
DX: M51.16 Intervertebral disc disorders with radiculopathy, lumbar region (principal); I10 Essential (primary) hypertension; F41.9 Anxiety disorder, unspecified; F32.9 Major depressive disorder, single episode, unspecified; E07.9 Disorder of thyroid, unspecified; Z87.39 Personal history of other diseases of the musculoskeletal system and connective tissue; Z88.2 Allergy status to sulfonamides; Z88.5 Allergy status to narcotic agent; Z82.49 Family history of ischemic heart disease and other diseases of the circulatory system; Z79.899 Other long term (current) drug therapy
CPT/HCPCS: 62323; J1040; Q9966

== ENCOUNTER → 2020-06-29 13:51 | Outpatient (POV) | payer MEDICAID, SELFPAY ==
[2020-06-29 14:03] VITALS: BP 122/74; PULSE 74; RESP 18; O2SAT 98; BMI 20.6
--- NOTE | 2020-06-29 14:25 | HMH.PAINSOAP ---
[facility] Pain Management SOAP Note Subjective:: Patient is a 60 year old female who presents today for complaints of drainage from her intrathecal pain pump site. Patient is being treated for chronic low back pain with lumbar radiculopathy symptoms. The patient's pain pump is turned off at this time. Unfortunately, the patient was having severe nausea and vomiting that she reports is secondary to the medication that was in her intrathecal pain pump. Patient was offered a change in medication at that time, however, she was adamant that she wanted the intrathecal pain pump removed. Patient has had incisional drainage in the past and did have to have a round of antibiotics. She is here today with complaints of drainage from her incisional site again. Her significant other is accompanying her today. He does say that she started to have incisional drainage from her incisional site early this morning. He reports the drainage to be bloody . He did apply a dressing to the area. Patient does deny any fevers or chills. She does complain of significant pain, however. She says that her pain is an 8 out of 10 today. Patient is adamant once again that she does not want to change in her medication. She is discussing removal of the pain pump again today. His pain is primarily in her low back and bilateral lower extremities. She does have a history of cerebral palsy. Review of Systems General: No recent weight changes, no fever, no sleep disturbances Respiratory: No cough, no shortness of air, no recurring pulmonary infections Cardiovascular/peripheral vascular: No chest pain, no palpitations, no edema, no shortness of breath Gastrointestinal: No new onset incontinence, normal bowel movements reported Genitourinary: No new onset incontinence Musculoskeletal: Incisional pain, chronic low back pain, bilateral lower extremity pain Psychiatric: Normal mood/affect Neurological: [Denies weakness in extremities], [denies balance issues] Objective:: Physical exam General: Alert and oriented x3, no acute distress, pleasant and cooperative, [on room air] Lungs: Respirations even and unlabored, symmetrical chest expansion Eyes: PERRL Musculoskeletal: Flexion and extension of lumbar spine somewhat guarded secondary to pain, deep tendon reflexes normal, strength in upper and lower extremities [5/5], [abnormal gait noted] Neurological: Speech clear, prototype engineer manager 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 RENE Brock. We will schedule her to come into the clinic in the a.m. to speak with him regarding her incisional pain and open area over her pain pump site. Patient is adamant that she still wants the intrathecal pain pump removed. She would like to discuss her options with Dr. RENE Brock. And I did discuss possibly undergoing medication change in the pump, however, her significant other is concerned with this option. Dr. Mina will discuss her options with her in the a.m .the patient is not having any fevers or chills with no purulent drainage noted to the incisional site. The incision does not appear to be infected at this time. I have encouraged the significant other to wash the area and keep dry until he consults with Dr. Mina in the a.m. We will not order antibiotics for the pump The patient and I specifically discussed risk factors for COVID19. These risks include, but are not limited to age greater than 60, heart or lung disease, diabetes, immunosuppression, and travel. We also discussed NSAIDs may worsen COVID19 infection or symptoms. Patient should not use NSAIDs to treat COVID19 signs or symptoms. Patient was also informed that any type of corticosteroid of any form (oral or injection) will decrease the patient's immune system response and may increa
== END ==
PROVIDERS: PCP Internal Medicine Adolescent Medicine; Visit Provider Clinical Nurse Specialist Family Health
DX: M51.16 Intervertebral disc disorders with radiculopathy, lumbar region (principal)
CPT/HCPCS: 99212

== ENCOUNTER → 2020-06-30 14:58 | Outpatient (POV) | payer MEDICAID, SELFPAY ==
[2020-06-30 15:50] VITALS: BP 118/61; PULSE 66; RESP 18; TEMP 36.6; O2SAT 96; BMI 20.6
--- NOTE | 2020-06-30 16:48 | HMH.PAINSOAP ---
[facility] Pain Management SOAP Note Subjective:: Patient is a pleasant 60-year-old white female who presents with some drainage from her intrathecal pain pump site. Pump does appear to have a superficial skin infection. We will put her on Cipro 500 mg twice a day. We will have her see Dr. Madrid more Friday to have her pump explanted. The pump is currently turned off. She has no fevers at this time. She has no other signs of infection. This is just a superficial skin infection over the pump reservoir. Objective:: Alert and oriented x3 no acute distress. Patient does have an antalgic gait. She does have history of cervical palsy. There is a superficial bloody drainage from the pump reservoir incision. We did place 4 x 4's over the incision and clean the incision. The patient does not have any redness or any other signs of cellulitis or infection. Patient has not had any fevers. We will have her see Dr. Madrid more Friday for explant. Assessment:: Degenerative disc disease of lumbar spine with lumbar radiculopathy symptoms with infection at the pump reservoir site at the superficial skin incision Plan:: We will have Dr. Momin see her soon as possible on Friday to plan on explant of her intrathecal pain pump. We will place her on Cipro 500 mg twice daily. I talked to Dr. Colin today. [facility] History Medical History: Reports:: Anxiety, Depression, Gastroesophageal Reflux Disease(GERD), Hyperlipidemia, Hypertension, Osteoporosis, Urinary Tract Infection Denies:: Cancer, Diabetes Mellitus Type 1, Diabetes Mellitus Type 2, Internal Pacemaker, Lung Disease, MRSA, Seizures *Have you ever received a pneumonia vaccine?: Yes *Have you received a flu vaccine this season?: Yes Other Medical History: Reports: Arthritis, Hypothyroidism, Osteoporosis, Thyroid Disease, Other. Denies: Blood Transfusion Reaction Other Surgeries: Yes: Appendectomy, Colonoscopy, EGD, Thyroidectomy, Tubal Ligation, Other (pain pump implant). No: Pacemaker Amputation: No Fractures: Yes (back) - *Social History Smoking Status: Never smoker Alcohol Intake: never Substance Use Type: denies use *Occupational Status:: retired Housing: house Household Members: spouse *Travel in the last 8 weeks: None - Psychiatric History Pschychiatric History:: Reports:: Anxiety, Depression Family Hx:: Cancer, Coronary Artery Disease, Diabetes, Heart Attack, Hyperlipidemia, Hypertension, Thyroid Disorder, Mental illness
== END ==
PROVIDERS: PCP Internal Medicine Adolescent Medicine; Visit Provider Anesthesiology
DX: M51.16 Intervertebral disc disorders with radiculopathy, lumbar region (principal); L08.9 Local infection of the skin and subcutaneous tissue, unspecified; Z45.1 Encounter for adjustment and management of infusion pump
CPT/HCPCS: 99212

== ENCOUNTER → 2020-07-07 09:15 | Outpatient (POV) | payer MEDICAID, SELFPAY ==
[2020-07-07 09:22] VITALS: BP 102/71; PULSE 109; RESP 18; TEMP 36.4; O2SAT 98; BMI 21.6
--- NOTE | 2020-07-07 10:37 | HMH.PAINSOAP ---
[facility] Pain Management SOAP Note Subjective:: Patient is a pleasant 60-year-old white female who had her intrathecal pain pump removed yesterday for infection. The catheter was not removed it was tied off in the pocket as the infection was superficial and did not extend through the pocket into the path of the catheter. Patient had no fevers and no signs of systemic infection. The pump was removed drains were placed patient was discharged yesterday. She presents for follow-up today. She is doing well she does have some pain however she has not been able to picker packer her pain medicine yet. Drainage has been 3 to 4 mL over the last 12 hours with bloody serosanguineous fluid. Dressings are in place with no fevers and no signs of any systemic or localized infection. She is currently on antibiotics. Objective:: Alert and oriented x3 no acute distress. Patient does have an antalgic gait. She is sitting in a wheelchair today. Motor strength of lower extremities is 5/5. There is no gross sensory deficit. We did take down the dressings and there is no signs of localized or systemic infection. There is 4 mL of serosanguineous fluid in the drain Assessment:: Degenerative disease of lumbar spine with lumbar radiculopathy symptoms status post removal of infected pain pump Plan:: We will follow-up with her again next Friday. We will reassess her symptomology. If anything changes between now and her next visit or she develop develops a fever or any signs or symptoms of systemic infection she is to call us back in the pain clinic. She is to continue with her antibiotic and pain medication. I have talked to Dr. Momin this morning and conferred her status and treatment plan. [facility] History Medical History: Reports:: Anxiety, Depression, Gastroesophageal Reflux Disease(GERD), Hyperlipidemia, Hypertension, Osteoporosis, Urinary Tract Infection Denies:: Cancer, Diabetes Mellitus Type 1, Diabetes Mellitus Type 2, Internal Pacemaker, Lung Disease, MRSA, Seizures *Have you ever received a pneumonia vaccine?: No *Have you received a flu vaccine this season?: No Other Medical History: Reports: Arthritis, Hypothyroidism, Osteoporosis, Thyroid Disease, Other. Denies: Blood Transfusion Reaction Other Surgeries: Yes: Appendectomy, Colonoscopy, EGD, Thyroidectomy, Tubal Ligation, Other (pain pump implant). No: Pacemaker Amputation: No Fractures: Yes (back) - *Social History Smoking Status: Never smoker Alcohol Intake: never Substance Use Type: denies use *Occupational Status:: disabled Housing: house Household Members: spouse *Travel in the last 8 weeks: None - Psychiatric History Pschychiatric History:: Reports:: Anxiety, Depression Family Hx:: Cancer, Coronary Artery Disease, Diabetes, Heart Attack, Hyperlipidemia, Hypertension, Thyroid Disorder, Mental illness
== END ==
PROVIDERS: PCP Internal Medicine Adolescent Medicine; Visit Provider Anesthesiology
DX: M51.16 Intervertebral disc disorders with radiculopathy, lumbar region (principal); Z09 Encounter for follow-up examination after completed treatment for conditions other than malignant neoplasm; Z98.890 Other specified postprocedural states
CPT/HCPCS: 99212

== ENCOUNTER → 2020-07-14 08:42 | Outpatient (POV) | payer MEDICAID, SELFPAY ==
[2020-07-14 08:59] VITALS: BP 109/75; PULSE 100; RESP 20; TEMP 36.8; O2SAT 99; BMI 21.6
--- NOTE | 2020-07-14 09:40 | HMH.PAINSOAP ---
[facility] Pain Management SOAP Note Subjective:: This patient is a pleasant 60-year-old white female who had her intrathecal pain pump removed last week for infection. We did look at her incision today. Her incision is healing very nicely. I did talk to Dr. Momin. She is also on gabapentin 100 mg twice a day. She does need a refill on this. We will refill this. Claus and urine drug screen are all appropriate Claus [id number]. The drain is put out approximately 3 to 4 mL of yellowish serous fluid every 24 hours. It was recommended that we remove the drain and keep her stitches in. We will change her dressings today. She has completed her antibiotics. We will follow-up with her next week to possibly take out her stitches. Objective:: Alert and oriented x3 no acute distress. Patient does have an antalgic gait. Motor strength of the upper and lower extremities is 5/5. There is no gross sensory deficit. There is no fluctuance over the site where the pump was previously removed. The drain site and incisions look good. There is no redness no signs of infection. Incision is healing very nicely. Assessment:: Degenerative disc disease of lumbar spine with lumbar radiculopathy symptoms status post removal of infected pain pump 1 week postop Plan:: We will follow-up with her in 1 week. We will remove her drain today. Sutures are to remain in place. Also the patient is to remain in her abdominal binder. We will plan on removing sutures in [address] [facility] History I have reviewed the patient's past medical history: Yes Medical History: Reports:: Anxiety, Depression, Gastroesophageal Reflux Disease(GERD), Hyperlipidemia, Hypertension, Osteoporosis, Urinary Tract Infection Denies:: Cancer, Diabetes Mellitus Type 1, Diabetes Mellitus Type 2, Internal Pacemaker, Lung Disease, MRSA, Seizures *Have you ever received a pneumonia vaccine?: No *Have you received a flu vaccine this season?: No Other Medical History: Reports: Arthritis, Hypothyroidism, Osteoporosis, Thyroid Disease, Other. Denies: Blood Transfusion Reaction Other Surgeries: Yes: Appendectomy, Colonoscopy, EGD, Thyroidectomy, Tubal Ligation, Other (pain pump implant). No: Pacemaker Amputation: No Fractures: Yes (back) - *Social History Smoking Status: Never smoker Alcohol Intake: never Substance Use Type: denies use *Occupational Status:: disabled Housing: house Household Members: spouse *Travel in the last 8 weeks: None - Psychiatric History Pschychiatric History:: Reports:: Anxiety, Depression Family Hx:: Cancer, Coronary Artery Disease, Diabetes, Heart Attack, Hyperlipidemia, Hypertension, Thyroid Disorder, Mental illness
== END ==
PROVIDERS: PCP Internal Medicine Adolescent Medicine; Visit Provider Anesthesiology
DX: M51.16 Intervertebral disc disorders with radiculopathy, lumbar region (principal); Z98.890 Other specified postprocedural states
CPT/HCPCS: 99212

== ENCOUNTER → 2020-07-21 09:20 | Outpatient (POV) | payer MEDICAID, SELFPAY ==
[2020-07-21 09:33] VITALS: BP 154/66; PULSE 96; RESP 20; TEMP 36.8; O2SAT 97; BMI 21.6
--- NOTE | 2020-07-21 10:14 | P.CONS_ITS ---
[facility] Pain Management SOAP Note Subjective:: This patient is a pleasant 60-year-old white female who had her intrathecal pain pump removed 2 weeks ago. Her incision is healed very nicely. Wound VAC was taken off last week. She is here to have sutures taken out today. We will also refill her gabapentin. Claus and urine drug screen are all appropriate. Objective:: Alert and oriented x3 no acute distress. Incisions of healed very nicely. Motor strength of the upper and lower extremities is 5/5. There is no gross sensory deficit. Assessment:: Degenerative disc disease of lumbar spine with lumbar radiculopathy symptoms status post removal of infected pain pump 2 weeks postop Plan:: Patient has no signs of infection. Incisions have healed very nicely. Sutures will come out today. Will place Steri-Strips over the incisions. She is also completed her antibiotic course. We will follow-up with her in 2 weeks to reevaluate symptoms. [facility] History I have reviewed the patient's past medical history: Yes Medical History: Reports:: Anxiety, Depression, Gastroesophageal Reflux Disease(GERD), Hyperlipidemia, Hypertension, Osteoporosis, Urinary Tract Infection Denies:: Cancer, Diabetes Mellitus Type 1, Diabetes Mellitus Type 2, Internal Pacemaker, Lung Disease, MRSA, Seizures *Have you ever received a pneumonia vaccine?: Yes *Have you received a flu vaccine this season?: Yes Other Medical History: Reports: Arthritis, Hypothyroidism, Osteoporosis, Thyroid Disease, Other. Denies: Blood Transfusion Reaction Other Surgeries: Yes: Appendectomy, Colonoscopy, EGD, Thyroidectomy, Tubal Ligation, Other (pain pump implant). No: Pacemaker Amputation: No Fractures: Yes (back) - *Social History Smoking Status: Never smoker Alcohol Intake: never Substance Use Type: denies use *Occupational Status:: retired, disabled Housing: house Household Members: spouse *Travel in the last 8 weeks: None - Psychiatric History Pschychiatric History:: Reports:: Anxiety, Depression Family Hx:: Cancer, Coronary Artery Disease, Diabetes, Heart Attack, Hyperlipidemia, Hypertension, Thyroid Disorder, Mental illness
--- NOTE | 2020-07-21 12:33 | PC.NURSE ---
called in Rx for Gabapentin 100mg PO qhs with 2 refills to pt's phamacy per MD order.
== END ==
PROVIDERS: PCP Internal Medicine Adolescent Medicine; Visit Provider Anesthesiology
DX: M51.16 Intervertebral disc disorders with radiculopathy, lumbar region (principal); Z98.890 Other specified postprocedural states
CPT/HCPCS: 99212

== ENCOUNTER → 2020-08-04 13:00 | Outpatient (POV) | payer MEDICAID, SELFPAY ==
[2020-08-04 13:11] VITALS: BP 104/67; PULSE 69; RESP 20; TEMP 36.2; O2SAT 97; BMI 20.9
--- NOTE | 2020-08-04 13:33 | P.CONS_ITS ---
[facility] Pain Management SOAP Note Subjective:: This patient is a pleasant 60-year-old white female who we have been treating for low back pain with lumbar radiculopathy symptoms and sacroiliitis. She has had her intrathecal pain pump removed. She is recovered very well. Her incision is healed very nicely. We did refill her gabapentin this is helping tremendously. She does have some residual pain over her left SI joint. She is tender over the left SI joint. She has a positive Fidencio's test on left side. She has positive SI joint compression test on left side. She has a positive distraction test on left side. We will schedule her for a left SI joint injection under fluoroscopy in 2 weeks. Objective:: Alert and oriented x3 no acute distress. Patient does have an antalgic gait. She is tender over the left SI joint. Motor strength of lower extremities is 5/5. There is no gross sensory deficit. She has a positive Fidencio's test on left side. She has positive SI joint compression test on the left side. She has a positive distraction test on left side. Assessment:: Degenerative disc disease of lumbar spine with lumbar radiculopathy symptoms and sacroiliitis Plan:: Patient is to continue with her gabapentin. We will follow-up with her in 2 we eks. We will plan on a left SI joint injection under fluoroscopy at that time. [facility] History Medical History: Reports:: Anxiety, Depression, Gastroesophageal Reflux Disease(GERD), Hyperlipidemia, Hypertension, Osteoporosis, Urinary Tract Infection Denies:: Cancer, Diabetes Mellitus Type 1, Diabetes Mellitus Type 2, Internal Pacemaker, Lung Disease, MRSA, Seizures *Have you ever received a pneumonia vaccine?: Yes *Have you received a flu vaccine this season?: Yes Other Medical History: Reports: Arthritis, Hypothyroidism, Osteoporosis, Thyroid Disease, Other. Denies: Blood Transfusion Reaction Other Surgeries: Yes: Appendectomy, Colonoscopy, EGD, Thyroidectomy, Tubal Ligation, Other (pain pump implant). No: Pacemaker Amputation: No Fractures: Yes (back) - *Social History Smoking Status: Never smoker Alcohol Intake: never Substance Use Type: denies use *Occupational Status:: disabled Housing: house Household Members: spouse *Travel in the last 8 weeks: None - Psychiatric History Pschychiatric History:: Reports:: Anxiety, Depression Family Hx:: Cancer, Coronary Artery Disease, Diabetes, Heart Attack, Hyperlipidemia, Hypertension, Thyroid Disorder, Mental illness
== END ==
PROVIDERS: PCP Internal Medicine Adolescent Medicine; Visit Provider Anesthesiology
DX: M51.16 Intervertebral disc disorders with radiculopathy, lumbar region (principal); M96.1 Postlaminectomy syndrome, not elsewhere classified
CPT/HCPCS: 99212

== ENCOUNTER 2020-08-21 14:30 | Day surgery (SDC) | payer MEDICAID, SELFPAY ==
[2020-08-21 14:50] VITALS: BP 111/94; PULSE 69; RESP 18; TEMP 36.7; BMI 23.3
[2020-08-21 15:46] VITALS: BP 112/74; PULSE 74; RESP 18; O2SAT 98
[2020-08-21 15:47] VITALS: BP 115/74; PULSE 71; RESP 18; O2SAT 98
--- NOTE | 2020-08-21 15:49 | HMH.PMPROC ---
- Procedure Date: 08/21/20 Time: 15:49 Anesthesiologist:: Lillie Yi APRN Complications:: None Pre-procedure Diagnosis:: Sacroiliitis Post-procedure Diagnosis:: Same Indications for Procedure:: Patient is a pleasant 60-year-old white female who presents today for a left SI joint injection. Patient gets good relief with these. Patient had an intrathecal pain pump which was removed due to infection. She rates her pain today a 7 out of 10. She has a positive Dylan test SI joint compression test and Fidencio's test on the left side. Procedure Details:: Informed consent was obtained and the risks and benefits of the procedure were explained to the patient. Patient was taken to the procedure room. Patient was placed prone on the procedure table. The left hip was prepped using ChloraPrep as a cleansing solution. The skin and subcutaneous tissues were anesthetized using lidocaine. Using fluoroscopic guidance I placed a 22-gauge spinal needle into the inferior aspect of the left SI joint. After this I injected 5 mL bupivacaine 0.25% and Depo-Medrol 40 mg into the left SI joint. The patient tolerated the procedure well with no complication. Plan and Disposition:: We will see the patient back in several weeks reassess her symptoms at that time she has been instructed to call the office if she has any issues prior to her next appointment. Dr. Robledo has reviewed this note and agrees with this plan of care. This note was dictated using voice recognition software and may contain errors or omissions
[2020-08-21 15:55] VITALS: BP 111/94; PULSE 88; RESP 18; O2SAT 98
== END 2020-08-21 15:56 | disposition home or self-care (01) ==
LOC: SC.PAINP 14:31
PROVIDERS: PCP Internal Medicine Adolescent Medicine; Visit Provider Clinical Nurse Specialist Family Health
DX: M46.1 Sacroiliitis, not elsewhere classified (principal); G80.9 Cerebral palsy, unspecified; F41.9 Anxiety disorder, unspecified; K21.9 Gastro-esophageal reflux disease without esophagitis; F32.9 Major depressive disorder, single episode, unspecified; Z88.6 Allergy status to analgesic agent; Z88.2 Allergy status to sulfonamides; Z88.8 Allergy status to other drugs, medicaments and biological substances; Z79.899 Other long term (current) drug therapy
CPT/HCPCS: 27096; G0260; J1030; Q9966

== ENCOUNTER → 2020-09-14 14:22 | Outpatient (POV) | payer MEDICAID, SELFPAY ==
[2020-09-14 14:45] VITALS: BP 132/78; PULSE 74; RESP 18; O2SAT 98; BMI 21.6
--- NOTE | 2020-09-14 15:19 | HMH.PAINSOAP ---
[facility] Pain Management SOAP Note Subjective:: Patient is a pleasant 60-year-old white female who presents today for follow-up after left SI joint injection. Patient had 80% relief of her symptomology. She rates her pain a 4 out of 10. She is also on gabapentin 100 mg 1 p.o. twice daily. She does extremely well with this. She denies side effects from medication. [facility] #[id number] reviewed and appropriate. Patient does not need any additional injections at this time she is at her baseline functioning. Patient would like to follow-up and repeat her injection in several months. I do believe this would be appropriate. Patient states her medication helps her up to 80% as well. ROS General: no recent weight change, no fever, no sleep disturbances Respiratory: no cough, no shortness of air, no recurring pulmonary infections Cardiovascular/Peripheral Vascular: No chest pain, No palpitations, no edema, no shortness of breath. Gastrointestinal: no new onset incontinence, normal bowel movements reported Genitourinary: no new onset incontinence Musculoskeletal: SI joint pain, back pain Psychiatric: normal mood/ affect Neurological: [denies new onset weakness in extremities], [denies new onset balance issues] Objective:: Physical Exam General: Alert and oriented x3, no acute distress, pleasant and cooperative, [on room air] Lungs: Resps E/U, Symmetrical chest expansion, Eyes: PERRL Musculoskeletal: Flexion and extension of lumbar spine somewhat guarded secondary to pain, deep tendon reflexes normal, strength in upper and lower extremities [5/5], [abnormal gait noted] Neurological: speech clear, international organizer equal, no gross sensory deficits Assessment:: Sacroiliitis Plan:: We will continue her gabapentin 100 mg 1 p.o. twice daily. We will follow-up with her at her next appointment. She has been instructed to call our office if she has any issues prior to next appointment. Dr. Robledo has reviewed this note and agrees with this plan of care. This note was dictated using voice recognition software and may contain errors or omissions [facility] History I have reviewed the patient's past medical history: Yes Medical History: Reports:: Anxiety, Depression, Gastroesophageal Reflux Disease(GERD), Hyperlipidemia, Hypertension, Osteoporosis, Urinary Tract Infection Denies:: Cancer, Diabetes Mellitus Type 1, Diabetes Mellitus Type 2, Internal Pacemaker, Lung Disease, MRSA, Seizures *Have you ever received a pneumonia vaccine?: Yes *Have you received a flu vaccine this season?: Yes Other Medical History: Reports: Arthritis, Hypothyroidism, Osteoporosis, Thyroid Disease, Other. Denies: Blood Transfusion Reaction Other Surgeries: Yes: Appendectomy, Colonoscopy, EGD, Thyroidectomy, Tubal Ligation, Other (kyphoplasty). No: Pacemaker Amputation: No Fractures: Yes (back) - *Social History Smoking Status: Never smoker Alcohol Intake: never Substance Use Type: denies use *Occupational Status:: other Housing: house Household Members: spouse *Travel in the last 8 weeks: None - Psychiatric History Pschychiatric History:: Reports:: Anxiety, Depression Family Hx:: Cancer, Coronary Artery Disease, Diabetes, Heart Attack, Hyperlipidemia, Hypertension, Thyroid Disorder, Mental illness
== END ==
PROVIDERS: PCP Internal Medicine Adolescent Medicine; Visit Provider Clinical Nurse Specialist Family Health
DX: M46.1 Sacroiliitis, not elsewhere classified (principal)
CPT/HCPCS: 99212; G0463

== ENCOUNTER → 2020-09-25 15:32 | Outpatient (CLI) | payer MEDICAID, SELFPAY ==
[2020-09-25 16:14] LABS: Basophils # 0.1 K/mm3 (0-0.2); Eosinophils # 0.2 K/mm3 (0.0-0.4); Eosinophils % 2.8 % (0.1-12.0); Hematocrit 37.5 % (37.0-47.0); Hemoglobin 12.2 g/dL (12.2-16.2); Lymphocytes # 1.5 K/mm3 (0.7-4.5); Lymphocytes % 25.9 % (10-50); Mean Corpuscular HGB Conc 32.6 g/dL (31.8-35.4); Mean Corpuscular Volume 76.8 fl (81-99); Mean Platelet Volume 8.2 fl (7.4-10.4); Monocytes # 0.2 K/mm3 (0.1-1.0); Monocytes % 4.3 % (1.7-9.3); Neutrophils # 3.7 K/mm3 (1.8-7.8); Neutrophils % 66.1 % (37.0-80.0); Platelet Count 167 K/mm3 (142-424); Red Blood Count 4.88 M/mm3 (4.20-5.40); White Blood Count 5.7 K/mm3 (4.8-10.8)
[2020-09-25 16:49] LABS: Alanine Aminotransferase 18 U/L (12-78); Albumin Level 4.1 g/dl (3.5-5.0); Albumin/Globulin Ratio 1.4 (1.1-1.8); Alkaline Phosphatase 75 U/L (38-126); Anion Gap 11.9 mEq/L (5-15); Aspartate Amino Transferase 28 U/L (14-36); Bilirubin,Total 0.4 mg/dl (0.2-1.3); Blood Urea Nitrogen 12 mg/dl (7-17); Calcium 9.1 mg/dl (8.4-10.2); Carbon Dioxide 24 mmol/L (22.0-30.0); Chloride 108 mmol/L (98-107); Estimated Glomerular Filt Rate 125 ml/min (>60); GFR (African American) 151 ML/MIN (>60); Glucose 97 mg/dl (74-100); Potassium 3.9 mmoL/L (3.5-5.1); Sodium 140 mmol/L (136-145); Total Protein,Serum 7.1 g/dl (6.3-8.2)
[2020-09-25 17:06] LABS: 25-OH Vitamin D, Total 28.9 ng/mL (30-100)
[2020-09-25 17:20] LABS: Thyroid Stimulating Hormone 4.75 uIU/mL (0.465-4.68)
[2020-09-25 17:38] LABS: Vitamin B12 737 pg/mL (239-931)
== END ==
PROVIDERS: Visit Provider Nurse Practitioner Family
DX: E03.9 Hypothyroidism, unspecified (principal); E53.8 Deficiency of other specified B group vitamins; E55.9 Vitamin D deficiency, unspecified; M81.0 Age-related osteoporosis without current pathological fracture
CPT/HCPCS: 36415; 80053; 82306; 82607; 84443; 85025

== ENCOUNTER → 2020-11-16 09:57 | Outpatient (POV) | payer MEDICAID, SELFPAY ==
[2020-11-16 10:28] VITALS: BP 125/74; PULSE 101; RESP 18; O2SAT 98; BMI 23.6
--- NOTE | 2020-11-16 10:56 | HMH.PAINSOAP ---
[facility] Pain Management SOAP Note Subjective:: She is a pleasant 60-year-old white female who presents today for follow-up. Patient had a left SI joint injection several months back and did extremely well with that. Patient states that she feels like her pain is beginning to return. She would like to repeat this injection given the efficacy of it. She is also on gabapentin 100 mg 1 p.o. twice daily for nerve pain. Patient states it is very effective. [facility] #[id number] reviewed and appropriate. She rates her pain today a 9 out of 10 ROS General: no recent weight change, no fever, no sleep disturbances Respiratory: no cough, no shortness of air, no recurring pulmonary infections Cardiovascular/Peripheral Vascular: No chest pain, No palpitations, no edema, no shortness of breath. Gastrointestinal: no new onset incontinence, normal bowel movements reported Genitourinary: no new onset incontinence Musculoskeletal: SI joint pain bilaterally Psychiatric: normal mood/ affect Neurological: [denies new onset weakness in extremities], [denies new onset balance issues] Objective:: Physical Exam General: Alert and oriented x3, no acute distress, pleasant and cooperative, [on room air] Lungs: Resps E/U, Symmetrical chest expansion, Eyes: PERRL Musculoskeletal: Flexion and extension of lumbar spine somewhat guarded secondary to pain, deep tendon reflexes normal, strength in upper and lower extremities [5/5], [abnormal gait noted] positive Dylan test Fidencio's test SI joint compression test and distraction test bilaterally Neurological: speech clear, bellman driver equal, no gross sensory deficits Assessment:: Sacroiliitis Plan:: We will continue her gabapentin 100 mg 1 p.o. twice daily. We will set her up for bilateral SI joint injections given the efficacy of this in the past I do believe it would benefit her. I will follow-up with her after this reassess her symptoms at that time she has been instructed to call the office if she has any issues prior to her next appointment. Dr. Robledo has reviewed this note and agrees with this plan of care. This note was dictated using voice recognition software and may contain errors or omissions [facility] History I have reviewed the patient's past medical history: Yes Medical History: Reports:: Anxiety, Depression, Gastroesophageal Reflux Disease(GERD), Hyperlipidemia, Hypertension, Osteoporosis, Urinary Tract Infection Denies:: Cancer, Diabetes Mellitus Type 1, Diabetes Mellitus Type 2, Internal Pacemaker, Lung Disease, MRSA, Seizures *Have you ever received a pneumonia vaccine?: Yes *Have you received a flu vaccine this season?: Yes Other Medical History: Reports: Arthritis, Hypothyroidism, Osteoporosis, Thyroid Disease, Other. Denies: Blood Transfusion Reaction Other Surgeries: Yes: Appendectomy, Colonoscopy, EGD, Thyroidectomy, Tubal Ligation, Other (kyphoplasty). No: Pacemaker Amputation: No Fractures: Yes (back) - *Social History Smoking Status: Never smoker Alcohol Intake: never Substance Use Type: denies use *Occupational Status:: other Housing: house Household Members: spouse *Travel in the last 8 weeks: None - Psychiatric History Pschychiatric History:: Reports:: Anxiety, Depression Family Hx:: Cancer, Coronary Artery Disease, Diabetes, Heart Attack, Hyperlipidemia, Hypertension, Thyroid Disorder, Mental illness
== END ==
PROVIDERS: PCP Internal Medicine Adolescent Medicine; Visit Provider Clinical Nurse Specialist Family Health
DX: M46.1 Sacroiliitis, not elsewhere classified (principal)
CPT/HCPCS: 99212; G0463

== ENCOUNTER 2020-11-24 09:51 | Day surgery (SDC) | payer MEDICAID, SELFPAY ==
[2020-11-24 10:04] VITALS: BP 111/75; PULSE 94; RESP 18; TEMP 36.8; O2SAT 98; BMI 23.1
[2020-11-24 11:28] VITALS: BP 122/78; BP 128/87; PULSE 89; RESP 18; O2SAT 98
--- NOTE | 2020-11-24 11:32 | HMH.PMPROC ---
- Procedure Date: 11/24/20 Time: 11:32 Anesthesiologist:: Aneesh Robledo MD Complications:: None Pre-procedure Diagnosis:: Sacroiliitis Post-procedure Diagnosis:: Same Indications for Procedure:: This patient pleasant 60-year-old white female who we have been treating for low back pain with lumbar radicular symptoms and bilateral sacroiliitis. She did well with a left SI joint injection several months ago. She has had her intrathecal pain pump removed because it was not helping. Pain is now returned over both SI joints. She is tender over both SI joints. She has a positive Fidencio's test bilaterally. She is positive Dylan test bilaterally. She is positive SI joint compression test bilaterally. She has a positive distraction test bilaterally. We will do bilateral SI joint injections under fluoroscopy today to see if this will help with her pain symptoms. Procedure Details:: B/L SI joint injection under fluoroscopy Informed consent was obtained and the risks and benefits of the procedure was explained to the patient. The patient was taken to the procedure room and placed prone on the procedure table. The patient was prepped using ChloraPrep. The skin and subcutaneous tissues overlying the SI joints were anesthetized using lidocaine. I placed a 22-gauge needle first in the left SI joint and second in the right SI joint. Needle placement was confirmed with dye. After this we injected 5 mL bupivacaine 0.25% and Depo-Medrol 40 mg into each SI joint. Patient tolerated the procedure well with no complication. Plan and Disposition:: We will follow-up with her in 2 weeks. Will reevaluate symptoms at that time.
[2020-11-24 11:46] VITALS: BP 122/80; PULSE 84; RESP 18; O2SAT 98
== END 2020-11-24 11:47 | disposition home or self-care (01) ==
LOC: SC.PAINP 09:51
PROVIDERS: PCP Internal Medicine Adolescent Medicine; Visit Provider Anesthesiology
DX: M46.1 Sacroiliitis, not elsewhere classified (principal); M19.90 Unspecified osteoarthritis, unspecified site; E87.6 Hypokalemia; F41.9 Anxiety disorder, unspecified; K59.09 Other constipation; Z87.440 Personal history of urinary (tract) infections; Z88.5 Allergy status to narcotic agent; Z88.2 Allergy status to sulfonamides; Z88.8 Allergy status to other drugs, medicaments and biological substances; Z79.899 Other long term (current) drug therapy
CPT/HCPCS: 27096; G0260; J1030; Q9966

== ENCOUNTER → 2020-12-21 10:51 | Outpatient (POV) | payer MEDICAID, SELFPAY ==
[2020-12-21 11:19] VITALS: BP 125/74; PULSE 85; RESP 18; TEMP 37; O2SAT 98; BMI 22.8
--- NOTE | 2020-12-21 11:33 | P.CONS_ITS ---
[facility] Pain Management SOAP Note Subjective:: Patient is a pleasant 60-year-old white female who presents today for follow-up after SI joint injection. Patient got no relief from this she rates her pain a 7 out of 10 she states that most of her pain is in her left hip. Patient I discussed intra-articular hip injection she would like to move forward with this. I do believe that she does not get relief diagnostic imaging and a consultation with Ortho may be of beneficial. Patient agrees. ROS General: no recent weight change, no fever, no sleep disturbances Respiratory: no cough, no shortness of air, no recurring pulmonary infections Cardiovascular/Peripheral Vascular: No chest pain, No palpitations, no edema, no shortness of breath. Gastrointestinal: no new onset incontinence, normal bowel movements reported Genitourinary: no new onset incontinence Musculoskeletal: Left hip pain Psychiatric: normal mood/ affect, [denies depression], [denies anxiety] Neurological: [denies new onset weakness in extremities], [denies new onset balance issues] Objective:: Physical Exam General: Alert and oriented x3, no acute distress, pleasant and cooperative, [on room air] Lungs: Resps E/U, Symmetrical chest expansion, Eyes: PERRL Musculoskeletal: Flexion and extension of lumbar spine somewhat guarded secondary to pain, deep tendon reflexes normal, strength in upper and lower extremities [5/5], [abnormal gait noted] Neurological: speech clear, party demonstrator equal, no gross sensory deficits Assessment:: Left hip pain Plan:: We will schedule the patient for left intra-articular hip injection. We will obtain diagnostic imaging and send her for Ortho consultation if she gets no relief from this. Dr. Robledo has reviewed this note and agrees with this plan of care. This note was dictated using voice recognition software and may contain errors or omissions [facility] History I have reviewed the patient's past medical history: Yes Medical History: Reports:: Anxiety, Depression, Gastroesophageal Reflux Disease(GERD), Hyperlipidemia, Hypertension, Osteoporosis, Urinary Tract Infection Denies:: Cancer, Diabetes Mellitus Type 1, Diabetes Mellitus Type 2, Internal Pacemaker, Lung Disease, MRSA, Seizures *Have you ever received a pneumonia vaccine?: Yes *Have you received a flu vaccine this season?: Yes Other Medical History: Reports: Arthritis, Hypothyroidism, Osteoporosis, Thyroid Disease, Other. Denies: Blood Transfusion Reaction Other Surgeries: Yes: Appendectomy, Colonoscopy, EGD, Thyroidectomy, Tubal Ligation, Other (kyphoplasty). No: Pacemaker Amputation: No Fractures: Yes (back) - *Social History Smoking Status: Never smoker Alcohol Intake: never Substance Use Type: denies use *Occupational Status:: other Housing: house Household Members: spouse *Travel in the last 8 weeks: None - Psychiatric History Pschychiatric History:: Reports:: Anxiety, Depression Family Hx:: Cancer, Coronary Artery Disease, Diabetes, Heart Attack, Hyperlipidemia, Hypertension, Thyroid Disorder, Mental illness
== END ==
PROVIDERS: PCP Internal Medicine Adolescent Medicine; Visit Provider Clinical Nurse Specialist Family Health
DX: M25.552 Pain in left hip (principal)
CPT/HCPCS: 99212; G0463

== ENCOUNTER 2021-01-01 13:31 | Day surgery (SDC) | payer MEDICAID, SELFPAY ==
[2021-01-01 13:36] VITALS: BP 138/84; PULSE 84; RESP 18; TEMP 36.5; O2SAT 98; BMI 23.7
--- NOTE | 2021-01-01 14:10 | HMH.PMPROC ---
- Procedure Date: 01/01/21 Time: 14:10 Anesthesiologist:: Lillie Yi APRN Complications:: None Pre-procedure Diagnosis:: Left hip pain, left hip arthritis Post-procedure Diagnosis:: Same Indications for Procedure:: Patient is a pleasant 60-year-old white female who presents today for left intra-articular hip injection. Patient's been having quite a bit of left hip pain. Patient and I discussed if this does not benefit her we will send her diagnostic imaging for diagnostic imaging and Ortho consult. She is agreeable she rates her pain a 6 out of 10. Procedure Details:: After informed consent was obtained and the risk and benefits were explained to the patient the patient was taken to the procedure room and placed in supine position. Under fluoroscopic guidance the area of maximal tenderness was identified. The skin overlying the left hip region was prepped with ChloraPrep and draped in sterile fashion. Strict aseptic technique was observed throughout the entire procedure. The skin was anesthetized with 1% lidocaine without epinephrine. A 22-gauge spinal needle was passed into the intra-articular space of the left hip using fluoroscopic guidance. 1.5 mL's of Omnipaque 300 preservative-free contrast was injected into the joint to confirm location. 3 mL's of a solution containing 0.25% bupivacaine and 40 mg of Depo-Medrol were injected into the joint. The patient tolerated this well with no complications. The needle was withdrawn and bandages were placed over the puncture site. Plan and Disposition:: I will see the patient back in 3 weeks reassess her symptoms at that time she has been instructed to call the office if she has any issues prior to her next appointment. Dr. Robledo has reviewed this note and agrees with this plan of care. This note was dictated using voice recognition software and may contain errors or omissions
[2021-01-01 14:11] VITALS: BP 142/78; PULSE 85; RESP 18; TEMP 36.8; O2SAT 99
[2021-01-01 14:13] VITALS: BP 128/89; PULSE 89; RESP 18; O2SAT 98
[2021-01-01 14:27] VITALS: BP 145/85; PULSE 84; RESP 20; O2SAT 98
== END 2021-01-01 14:27 | disposition home or self-care (01) ==
LOC: SC.PAINP 13:33
PROVIDERS: PCP Internal Medicine Adolescent Medicine; Visit Provider Clinical Nurse Specialist Family Health
DX: M16.12 Unilateral primary osteoarthritis, left hip (principal); E78.5 Hyperlipidemia, unspecified; I10 Essential (primary) hypertension; M81.0 Age-related osteoporosis without current pathological fracture; F41.9 Anxiety disorder, unspecified; F32.9 Major depressive disorder, single episode, unspecified; Z88.5 Allergy status to narcotic agent; Z88.2 Allergy status to sulfonamides; Z88.8 Allergy status to other drugs, medicaments and biological substances; K21.9 Gastro-esophageal reflux disease without esophagitis; E07.9 Disorder of thyroid, unspecified; K59.09 Other constipation
CPT/HCPCS: 20610; 77002; J1040; Q9966

== ENCOUNTER → 2021-01-16 08:53 | Outpatient (CLI) | payer MEDICAID, SELFPAY ==
[2021-01-16 10:09] LABS: Basophils # 0.1 K/mm3 (0-0.2); Eosinophils # 0.1 K/mm3 (0.0-0.4); Eosinophils % 1.9 % (0.1-12.0); Hematocrit 38.6 % (37.0-47.0); Hemoglobin 12.1 g/dL (12.2-16.2); Lymphocytes # 1.4 K/mm3 (0.7-4.5); Lymphocytes % 26.9 % (10-50); Mean Corpuscular HGB Conc 31.4 g/dL (31.8-35.4); Mean Corpuscular Hemoglobin 23.9 pg (27.0-31.2); Mean Platelet Volume 8.3 fl (7.4-10.4); Monocytes # 0.3 K/mm3 (0.1-1.0); Monocytes % 4.6 % (1.7-9.3); Neutrophils # 3.5 K/mm3 (1.8-7.8); Neutrophils % 65.6 % (37.0-80.0); Platelet Count 120 K/mm3 (142-424); Red Blood Count 5.08 M/mm3 (4.20-5.40); Red Cell Distribution Width 16.5 % (11.5-17.5); White Blood Count 5.4 K/mm3 (4.8-10.8)
[2021-01-16 10:25] LABS: Alanine Aminotransferase 13 U/L (12-78); Albumin Level 3.9 g/dl (3.5-5.0); Albumin/Globulin Ratio 1.4 (1.1-1.8); Alkaline Phosphatase 58 U/L (38-126); Aspartate Amino Transferase 23 U/L (14-36); Bilirubin,Total 0.4 mg/dl (0.2-1.3); Blood Urea Nitrogen 20 mg/dl (7-17); Calcium 8.3 mg/dl (8.4-10.2); Carbon Dioxide 27 mmol/L (22.0-30.0); Chloride 109 mmol/L (98-107); Chol/HDL Ratio 3.9 (1-3.5); Cholesterol 197 mg/dl (140-200); Estimated Glomerular Filt Rate 125 ml/min (>60); GFR (African American) 151 ML/MIN (>60); Globulin 2.7 g/dL (1.3-3.2); Glucose 96 mg/dl (74-100); HDL Cholesterol 51 mg/dl (40-60); Sodium 140 mmol/L (136-145); Total Protein,Serum 6.6 g/dl (6.3-8.2); Triglycerides 88 mg/dl (30-150); VLDL Cholesterol 18 mg/dL (0-40)
[2021-01-16 10:36] LABS: Direct LDL Cholesterol 126.62 mg/dL (100-129)
[2021-01-16 10:44] LABS: 25-OH Vitamin D, Total 31.8 ng/mL (30-100)
[2021-01-16 10:58] LABS: Thyroid Stimulating Hormone 5.53 uIU/mL (0.465-4.68)
[2021-01-16 11:17] LABS: Vitamin B12 695 pg/mL (239-931)
== END ==
PROVIDERS: Visit Provider Nurse Practitioner Family
DX: E03.9 Hypothyroidism, unspecified (principal); E78.2 Mixed hyperlipidemia; E53.8 Deficiency of other specified B group vitamins; E55.9 Vitamin D deficiency, unspecified
CPT/HCPCS: 36415; 80053; 80061; 82306; 82607; 84443; 85025

== ENCOUNTER → 2021-01-25 13:22 | Outpatient (POV) | payer MEDICAID, SELFPAY ==
[2021-01-25 13:32] VITALS: BP 112/74; PULSE 75; RESP 18; O2SAT 98; BMI 25.9
--- NOTE | 2021-01-25 13:49 | P.CONS_ITS ---
[facility] Pain Management SOAP Note Subjective:: Patient is a pleasant 60-year-old white female who presents today for follow-up after her hip injection. Patient is having extreme pain still with no relief from her injective therapy we discussed getting a left hip MRI to help determine pathology and potentially an orthopedic consultation she is agreeable. She rates her pain today a 7 out of 10. ROS General: no recent weight change, no fever, no sleep disturbances Respiratory: no cough, no shortness of air, no recurring pulmonary infections Cardiovascular/Peripheral Vascular: No chest pain, No palpitations, no edema, no shortness of breath. Gastrointestinal: no new onset incontinence, normal bowel movements reported Genitourinary: no new onset incontinence Musculoskeletal: Left hip pain Psychiatric: normal mood/ affect, Neurological: [denies new onset weakness in extremities], [denies new onset balance issues] Objective:: Physical Exam General: Alert and oriented x3, no acute distress, pleasant and cooperative, [on room air] Lungs: Resps E/U, Symmetrical chest expansion, Eyes: PERRL Musculoskeletal: Flexion and extension of lumbar spine somewhat guarded secondary to pain, deep tendon reflexes normal, strength in upper and lower extremities [5/5], [abnormal gait noted] Neurological: speech clear, 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 Patient will continue her gabapentin 100 mg 1 p.o. twice daily [facility] #[id number] reviewed and appropriate. Patient will be seen after her MRI and will determine if she needs an orthopedic consult. Dr. Robledo has reviewed this note and agrees with this plan of care. This note was dictated using voice recognition software and may contain errors or omissions [facility] History I have reviewed the patient's past medical history: Yes Medical History: Reports:: Anxiety, Depression, Gastroesophageal Reflux Disease(GERD), Hyperlipidemia, Hypertension, Osteoporosis, Urinary Tract Infection Denies:: Cancer, Diabetes Mellitus Type 1, Diabetes Mellitus Type 2, Internal Pacemaker, Lung Disease, MRSA, Seizures *Have you ever received a pneumonia vaccine?: Yes *Have you received a flu vaccine this season?: Yes Other Medical History: Reports: Arthritis, Hypothyroidism, Osteoporosis, Thyroid Disease, Other. Denies: Blood Transfusion Reaction Other Surgeries: Yes: Appendectomy, Colonoscopy, EGD, Thyroidectomy, Tubal Ligation, Other (kyphoplasty). No: Pacemaker Amputation: No Fractures: Yes (back) - *Social History Smoking Status: Never smoker Alcohol Intake: never Substance Use Type: denies use *Occupational Status:: other Housing: house Household Members: spouse *Travel in the last 8 weeks: None - Psychiatric History Pschychiatric History:: Reports:: Anxiety, Depression Family Hx:: Cancer, Coronary Artery Disease, Diabetes, Heart Attack, Hyperlipidemia, Hypertension, Thyroid Disorder, Mental illness
== END ==
PROVIDERS: PCP Internal Medicine Adolescent Medicine; Visit Provider Clinical Nurse Specialist Family Health
DX: M25.552 Pain in left hip (principal)
CPT/HCPCS: 99212; G0463

== ENCOUNTER → 2021-01-30 14:26 | Outpatient (CLI) | payer MEDICAID, SELFPAY ==
--- NOTE | 2021-01-30 14:28 | MR_ITS ---
PROCEDURE: MR HIP LT WO CON CLINICAL INDICATION: LEFT HIP PAIN Feels like hip is going to give out. Symptoms x2yrs. Prior x-ray 05/17/20. COMPARISON: CR XR HIP LT 2-3V W/PELVIS from 05/17/2020 TECHNIQUE: Routine multiplanar multi echo sequences are performed without gadolinium enhancement. FINDINGS: The hips have an unremarkable appearance. No evidence of fracture or dislocation. No evidence of avascular necrosis. No significant degenerative changes. The surrounding musculature has an unremarkable appearance. No obvious pelvic mass. IMPRESSION: Negative MRI of the left hip Dictated by: Brennon Collado MD 01/31/2021 10:30 Brennon Collado MD in [place] 01/31/2021 10:30
== END ==
PROVIDERS: PCP Internal Medicine Adolescent Medicine; Visit Provider Clinical Nurse Specialist Family Health
DX: M25.552 Pain in left hip (principal)
CPT/HCPCS: 73721

== ENCOUNTER → 2021-02-09 13:36 | Outpatient (POV) | payer MEDICAID, SELFPAY ==
[2021-02-09 13:56] VITALS: BP 120/79; PULSE 99; RESP 20; O2SAT 98; BMI 25.0
--- NOTE | 2021-02-09 13:57 | P.CONS_ITS ---
[facility] Pain Management SOAP Note Subjective:: She is a pleasant 60-year-old white female who we are seeing for low back pain and left-sided hip pain. She also has some increasing left knee pain. She did get an MRI of her pelvis and hips. This was negative for any degenerative changes and negative for any fracture. I believe most of her pain is coming from her SI joints. She has benefited in the past from SI joint injections however they have not been long-lasting. She did not get any benefit from intra- articular hip injections. We will seek approval for a left SI joint injection under fluoroscopy. She is also complaining of left knee pain. We will send her to orthopedics for her left knee pain. She is also needing something to help with pain symptoms. Will prescribe her tramadol 50 mg twice a day to help with her pain symptoms. Claus and urine drug screen are all appropriate [facility] [id number]. Objective:: Alert and oriented x3 no acute distress. Patient is seen sitting in a wheelchair. She does have some tenderness over the left SI joint. She does have a positive Fidencio's test on the left side. She is positive Dylan test on the left side. She has positive SI joint compression test on left side. She has a positive distraction test on left side. Motor strength of lower extremities is 5 out of 5. There is no gross sensory deficit. Assessment:: Degenerative disc disease of lumbar spine with lumbar radiculopathy symptoms and left-sided sacroiliitis. Plan:: We will seek approval and plan on a left SI joint injection under fluoroscopy. I will also start her on tramadol 50 mg twice a day to help with her pain symptoms. Will refer her to orthopedics for evaluation of her left knee pain. [facility] History Medical History: Reports:: Anxiety, Depression, Gastroesophageal Reflux Disease(GERD), Hyperlipidemia, Hypertension, Osteoporosis, Urinary Tract Infection Denies:: Cancer, Diabetes Mellitus Type 1, Diabetes Mellitus Type 2, Internal Pacemaker, Lung Disease, MRSA, Seizures *Have you ever received a pneumonia vaccine?: Yes *Have you received a flu vaccine this season?: Yes Other Medical History: Reports: Arthritis, Hypothyroidism, Osteoporosis, Thyroid Disease, Other. Denies: Blood Transfusion Reaction Other Surgeries: Yes: Appendectomy, Colonoscopy, EGD, Thyroidectomy, Tubal Ligation, Other (kyphoplasty). No: Pacemaker Amputation: No Fractures: Yes (back) - *Social History Smoking Status: Never smoker Alcohol Intake: never Substance Use Type: denies use *Occupational Status:: other Housing: house Household Members: spouse *Travel in the last 8 weeks: Inside the [place] - Psychiatric History Pschychiatric History:: Reports:: Anxiety, Depression Family Hx:: Cancer, Coronary Artery Disease, Diabetes, Heart Attack, Hyperlipidemia, Hypertension, Thyroid Disorder, Mental illness
[2021-02-09 14:13] LABS: MANUAL DIFFERENTIAL MANUAL DIFFERENTIAL (MANUAL DIFF)
[2021-02-09 14:53] LABS: Basophils # 0.1 K/mm3 (0-0.2); Basophils % 1.1 % (0.1-2.0); Eosinophils # 0.1 K/mm3 (0.0-0.4); Eosinophils % 1.8 % (0.1-12.0); Hematocrit 38.2 % (37.0-47.0); Hemoglobin 12.1 g/dL (12.2-16.2); Lymphocytes # 1.2 K/mm3 (0.7-4.5); Lymphocytes % 24.2 % (10-50); Mean Corpuscular HGB Conc 31.7 g/dL (31.8-35.4); Mean Corpuscular Volume 75.8 fl (81-99); Mean Platelet Volume 8.4 fl (7.4-10.4); Monocytes # 0.3 K/mm3 (0.1-1.0); Monocytes % 6.3 % (1.7-9.3); Neutrophils # 3.3 K/mm3 (1.8-7.8); Neutrophils % 66.5 % (37.0-80.0); Platelet Count 129 K/mm3 (142-424); Red Blood Count 5.04 M/mm3 (4.20-5.40); Red Cell Distribution Width 16.4 % (11.5-17.5)
[2021-02-09 15:07] LABS: Chloride 110 mmol/L (98-107)
[2021-02-09 15:08] LABS: Sodium 142 mmol/L (136-145)
[2021-02-09 15:10] LABS: Alanine Aminotransferase 19 U/L (12-78); Albumin Level 4.2 g/dl (3.5-5.0); Albumin/Globulin Ratio 1.4 (1.1-1.8); Alkaline Phosphatase 56 U/L (38-126); Aspartate Amino Transferase 24 U/L (14-36); Bilirubin,Total 0.4 mg/dl (0.2-1.3); Blood Urea Nitrogen 21 mg/dl (7-17); Calcium 9.2 mg/dl (8.4-10.2); Carbon Dioxide 22 mmol/L (22.0-30.0); Creatinine Clearance Estimated 65 mL/min (50-200); Estimated Glomerular Filt Rate 101 ml/min (>60); GFR (African American) 123 ML/MIN (>60); Globulin 2.9 g/dL (1.3-3.2); Glucose 97 mg/dl (74-100); Total Protein,Serum 7.1 g/dl (6.3-8.2)
[2021-02-09 15:45] LABS: Eosinophils % 1 % (0-3); Lymphocytes % 30 % (10-50); Monocytes % 1 % (2-9); Neutrophils % 68 % (42-76); Platelet Estimate Slight Decrease; Total Cells Counted 100
[2021-02-09 15:46] LABS: Anisocytosis 1+; Hypochromasia 1+; Microcytosis 1+
[2021-02-11 14:13] LABS: Peripheral Smear Review Scanned Result
== END ==
PROVIDERS: PCP Internal Medicine Adolescent Medicine; Visit Provider Anesthesiology
DX: M51.16 Intervertebral disc disorders with radiculopathy, lumbar region (principal); M46.1 Sacroiliitis, not elsewhere classified; D69.6 Thrombocytopenia, unspecified
CPT/HCPCS: 36415; 80053; 85007; 85014; 85018; 85048; 85049; 99212; G0463

== ENCOUNTER 2021-02-16 11:27 | Day surgery (SDC) | payer MEDICAID, SELFPAY ==
[2021-02-16 11:55] VITALS: BP 124/79; PULSE 103; RESP 19; TEMP 36.7; O2SAT 97; BMI 25.2
[2021-02-16 13:04] VITALS: BP 145/92; PULSE 94; RESP 18; O2SAT 97
[2021-02-16 13:06] VITALS: BP 138/86; PULSE 89; RESP 18; O2SAT 96
[2021-02-16 13:25] VITALS: BP 122/86; PULSE 95; RESP 18; O2SAT 97
--- NOTE | 2021-02-16 14:33 | HMH.PMPROC ---
- Procedure Date: 02/16/21 Time: 14:33 Anesthesiologist:: Mikaela Oliva MD Complications:: None Pre-procedure Diagnosis:: Sacroiliitis left Post-procedure Diagnosis:: Same Indications for Procedure:: Patient is a very pleasant 60-year-old white female presents with posterior back pain and left-sided hip pain. She reports that she has received significant relief in the past from these SI joint injections. She has trialed and failed conservative treatment including oral pain medications and home stretching program. Of note she is also underwent intra-articular hip injections with minimal pain relief. We we will plan today for her to undergo left-sided SI joint injection under fluoroscopy. Procedure Details:: Informed consent was obtained and the risks and benefits of the procedure was explained to the patient. Patient was taken to the procedure room. Patient was placed prone on the procedure table. The left hip was prepped using ChloraPrep. The skin and subcutaneous tissues were anesthetized using lidocaine. I placed a 22-gauge spinal needle into the inferior aspect of the left SI joint. Needle placement was confirmed with dye. After this we injected 5 mL bupivacaine 0.25% and Depo-Medrol 40 mg into the left SI joint. The patient tolerated the procedure well with no complication. Plan and Disposition:: Follow-up with the patient in 2 weeks. Will reevaluate her pain symptoms at that time.
== END 2021-02-16 13:25 | disposition home or self-care (01) ==
LOC: SC.PAINP 11:28
PROVIDERS: PCP Internal Medicine Adolescent Medicine; Visit Provider Anesthesiology Pain Medicine
DX: M46.1 Sacroiliitis, not elsewhere classified (principal)
CPT/HCPCS: 27096; G0260; J1040; Q9966

== ENCOUNTER → 2021-03-12 11:32 | Outpatient (POV) | payer MEDICAID, SELFPAY ==
[2021-03-12 11:33] VITALS: BP 140/72; PULSE 88; RESP 18; O2SAT 97; BMI 25.0
--- NOTE | 2021-03-12 11:43 | P.CONS_ITS ---
[facility] Pain Management SOAP Note Subjective:: Patient is a 60-year-old white female who presents today for follow-up after SI injection on left side. She has been treated for sacroiliitis and chronic low back pain with lumbar radiculopathy symptoms. Patient previously had an intrathecal pain pump that has been explanted. She says that she got about 70% relief 3 days after the injection. She got up to a week and a half of relief. She is having pain return on the left side as well as pain into the right low back area. She says the pain radiates into bilateral buttock and hips. She does rate her pain a 6 out of 10 today. She continues with a modified home stretching program. Review of Systems General: No recent weight changes, no fever, no sleep disturbances Respiratory: No cough, no shortness of air, no recurring pulmonary infections Cardiovascular/peripheral vascular: No chest pain, no palpitations, no edema, no shortness of breath Gastrointestinal: No new onset incontinence, normal bowel movements reported Genitourinary: No new onset incontinence Musculoskeletal: Low back pain with radiation into bilateral buttock and hips Psychiatric: Normal mood/affect Neurological: [Denies weakness in extremities], [denies balance issues] Objective:: Physical exam General: Alert and oriented x3, no acute distress, pleasant and cooperative, [on room air] Lungs: Respirations even and unlabored, symmetrical chest expansion Eyes: PERRL Musculoskeletal: Flexion and extension of lumbar spine somewhat guarded secondary to pain, deep tendon reflexes normal, strength in upper and lower extremities [5/5], [abnormal gait noted], positive Fidencio's test, positive compression test, positive distraction test Neurological: 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 We will schedule for bilateral SI injections this time. Her pain has migrated to the right side as well. She did get good relief with her previous injection. We will see her back afterwards for reevaluation of symptoms. Patient has been instructed to contact the clinic with any concerns before the next appointment. Dr. Robledo has reviewed this note and agrees with this plan of care. This note was dictated using voice recognition software and make contain errors or omissions. [facility] History I have reviewed the patient's past medical history: Yes Medical History: Reports:: Anxiety, Depression, Gastroesophageal Reflux Disease(GERD), Hyperlipidemia, Hypertension, Osteoporosis, Urinary Tract Infection Denies:: Cancer, Diabetes Mellitus Type 1, Diabetes Mellitus Type 2, Internal Pacemaker, Lung Disease, MRSA, Seizures *Have you ever received a pneumonia vaccine?: No *Have you received a flu vaccine this season?: No Other Medical History: Reports: Arthritis, Hypothyroidism, Osteoporosis, Thyroid Disease, Other. Denies: Blood Transfusion Reaction Other Surgeries: Yes: Appendectomy, Colonoscopy, EGD, Thyroidectomy, Tubal Ligation, Other (kyphoplasty). No: Pacemaker Amputation: No Fractures: Yes (back) - *Social History Smoking Status: Never smoker Alcohol Intake: never Substance Use Type: denies use *Occupational Status:: disabled Housing: house Household Members: spouse *Travel in the last 8 weeks: None - Psychiatric History Pschychiatric History:: Reports:: Anxiety, Depression Family Hx:: Cancer, Coronary Artery Disease, Diabetes, Heart Attack, Hyperlipidemia, Hypertension, Thyroid Disorder, Mental illness
== END ==
PROVIDERS: PCP Internal Medicine Adolescent Medicine; Visit Provider Clinical Nurse Specialist Family Health
DX: M46.1 Sacroiliitis, not elsewhere classified (principal)
CPT/HCPCS: 99212; G0463

== ENCOUNTER 2021-03-16 10:36 | Day surgery (SDC) | payer MEDICAID, SELFPAY ==
[2021-03-16 10:39] VITALS: BP 134/87; PULSE 68; RESP 18; TEMP 36.6; O2SAT 98; BMI 22.8
[2021-03-16 11:13] VITALS: BP 128/95; PULSE 56; RESP 18; O2SAT 95
[2021-03-16 11:16] VITALS: BP 128/95; PULSE 102; RESP 18; O2SAT 93
--- NOTE | 2021-03-16 11:17 | HMH.PMPROC ---
- Procedure Date: 03/16/21 Time: 11:17 Anesthesiologist:: Mikaela Oliva MD Complications:: None Pre-procedure Diagnosis:: Bilateral sacroiliitis, chronic hip pain, chronic back pain Post-procedure Diagnosis:: Same Indications for Procedure:: This patient is a very pleasant 60-year-old white female who presents today with chronic low back pain and chronic hip pain related to the above diagnosis. She has tried and failed conservative treatment including oral pain medication and home stretching program for greater than 6 weeks. She rates her pain as a 6 out of 10 today. She has previously undergone SI joint injections in the past and notes about 70% pain relief for 1-1/2 weeks after the injection. Plan for today is for the patient to undergo repeat bilateral SI joint injections. Procedure Details:: B/L SI joint injection under fluoroscopy Informed consent was obtained and the risks and benefits of the procedure was explained to the patient. The patient was taken to the procedure room and placed prone on the procedure table. The patient was prepped using ChloraPrep. The skin and subcutaneous tissues overlying the SI joints were anesthetized using 1% lidocaine. I placed a 22-gauge needle first in the left SI joint and second in the right SI joint. Needle placement was confirmed with dye. After this we injected 5 mL bupivacaine 0.25% and Depo-Medrol 40 mg into each SI joint. Patient tolerated the procedure well with no complication. Plan and Disposition:: We will follow-up with this patient in 2 weeks. Will reevaluate pain symptoms at that time. We may consider SI joint stabilization procedure in the future if her pain persists and she gets very minimal and or short-term pain relief with these injections.
[2021-03-16 11:31] VITALS: BP 131/93; PULSE 90; RESP 18; O2SAT 98
== END 2021-03-16 11:32 | disposition home or self-care (01) ==
LOC: SC.PAINP 10:37
PROVIDERS: PCP Internal Medicine Adolescent Medicine; Visit Provider Anesthesiology Pain Medicine
DX: M46.1 Sacroiliitis, not elsewhere classified (principal); M25.559 Pain in unspecified hip; M54.9 Dorsalgia, unspecified; G89.29 Other chronic pain; E03.9 Hypothyroidism, unspecified; E78.5 Hyperlipidemia, unspecified; I10 Essential (primary) hypertension; K21.9 Gastro-esophageal reflux disease without esophagitis; M19.90 Unspecified osteoarthritis, unspecified site; M81.0 Age-related osteoporosis without current pathological fracture; F41.9 Anxiety disorder, unspecified; F32.9 Major depressive disorder, single episode, unspecified
CPT/HCPCS: 27096; G0260; J1030; Q9966

== ENCOUNTER → 2021-03-27 08:32 | Outpatient (CLI) | payer MEDICAID, SELFPAY ==
--- NOTE | 2021-03-27 08:36 | XR_ITS ---
PROCEDURE: XR KNEE LT 4V CLINICAL INDICATION: left knee pain COMPARISON: CR [id number] KNEE-4 OR 5 VIEWS-LT from 04/01/2017 FINDINGS: No acute fractures or dislocations. Generalized osteopenia is noted. Tricompartmental degenerative changes of the knee joint with the prominence of the intercondylar tubercles, loss of joint space and osteophyte formation. No suprapatellar joint effusion is noted. Visualized soft tissues are unremarkable. IMPRESSION: Degenerative changes of the left knee joint. No acute fractures or dislocations. Dictated by: Lien Hawkins 03/27/2021 10:19 Lien Hawkins in [place] 03/27/2021 10:19
== END ==
PROVIDERS: PCP Internal Medicine Adolescent Medicine; Visit Provider Orthopaedic Surgery
DX: M25.562 Pain in left knee (principal)
CPT/HCPCS: 73564

== ENCOUNTER → 2021-03-29 10:24 | Outpatient (CLI) | payer MEDICAID, SELFPAY ==
[2021-03-29 11:03] LABS: Basophils % 0.5 % (0.1-2.0); Eosinophils # 0.1 K/mm3 (0.0-0.4); Eosinophils % 1.4 % (0.1-12.0); Hematocrit 37.6 % (37.0-47.0); Hemoglobin 11.4 g/dL (12.2-16.2); Lymphocytes # 1.1 K/mm3 (0.7-4.5); Lymphocytes % 15.5 % (10-50); Mean Corpuscular HGB Conc 30.3 g/dL (31.8-35.4); Mean Corpuscular Hemoglobin 23.6 pg (27.0-31.2); Mean Corpuscular Volume 77.6 fl (81-99); Mean Platelet Volume 7.7 fl (7.4-10.4); Monocytes # 0.4 K/mm3 (0.1-1.0); Monocytes % 5.5 % (1.7-9.3); Neutrophils # 5.3 K/mm3 (1.8-7.8); Neutrophils % 77.1 % (37.0-80.0); Platelet Count 163 K/mm3 (142-424); Red Blood Count 4.84 M/mm3 (4.20-5.40); Red Cell Distribution Width 15.7 % (11.5-17.5); White Blood Count 6.9 K/mm3 (4.8-10.8)
[2021-03-29 11:40] LABS: Alanine Aminotransferase 17 U/L (12-78); Albumin Level 3.7 g/dl (3.5-5.0); Albumin/Globulin Ratio 1.5 (1.1-1.8); Alkaline Phosphatase 56 U/L (38-126); Aspartate Amino Transferase 20 U/L (14-36); Bilirubin,Total 0.4 mg/dl (0.2-1.3); Blood Urea Nitrogen 26 mg/dl (7-17); Calcium 8.2 mg/dl (8.4-10.2); Carbon Dioxide 26 mmol/L (22.0-30.0); Chloride 110 mmol/L (98-107); Estimated Glomerular Filt Rate 162 ml/min (>60); GFR (African American) 196 ML/MIN (>60); Globulin 2.5 g/dL (1.3-3.2); Glucose 97 mg/dl (74-100); Iron 38 ug/dL (37-170); Sodium 143 mmol/L (136-145); Total Protein,Serum 6.2 g/dl (6.3-8.2)
[2021-03-29 11:49] LABS: Total Iron Binding Capacity 413 ug/dL (265-497)
[2021-03-29 12:17] LABS: Ferritin 24.5 ng/ml (11.1-264)
[2021-03-29 12:47] LABS: Vitamin B12 451 pg/mL (239-931)
[2021-03-29 12:52] LABS: Folate 3.79 ng/mL
== END ==
PROVIDERS: Visit Provider Internal Medicine Medical Oncology
DX: D64.9 Anemia, unspecified (principal)
CPT/HCPCS: 36415; 80053; 82607; 82728; 82746; 83540; 83550; 85025

== ENCOUNTER 2021-04-02 10:20 | Outpatient (CLI) | payer MEDICAID, SELFPAY ==
[2021-04-02 10:33] VITALS: BP 117/72; PULSE 95; RESP 18; TEMP 36.5; O2SAT 96
[2021-04-02 11:03] VITALS: BP 121/78; PULSE 94; RESP 18; O2SAT 97
== END 2021-04-02 11:10 | disposition home or self-care (01) ==
LOC: INF 10:22
PROVIDERS: Visit Provider Internal Medicine Medical Oncology
DX: D64.9 Anemia, unspecified (principal)
CPT/HCPCS: 96365; J1439

== ENCOUNTER 2021-04-09 10:12 | Outpatient (CLI) | payer MEDICAID, SELFPAY ==
[2021-04-09 10:35] VITALS: BP 113/65; PULSE 102; RESP 18; TEMP 36.6; O2SAT 96
[2021-04-09 11:15] VITALS: BP 108/69; PULSE 89; RESP 16; TEMP 36.6; O2SAT 96
== END 2021-04-09 11:18 | disposition home or self-care (01) ==
LOC: INF 10:12
PROVIDERS: Visit Provider Internal Medicine Medical Oncology
DX: D64.9 Anemia, unspecified (principal)
CPT/HCPCS: 96365; J1439

== ENCOUNTER → 2021-04-12 13:19 | Outpatient (POV) | payer MEDICAID, SELFPAY ==
[2021-04-12 13:28] VITALS: BP 139/92; PULSE 107; RESP 18; O2SAT 95; BMI 25.3
--- NOTE | 2021-04-12 13:31 | P.CONS_ITS ---
[facility] Pain Management SOAP Note Subjective:: Patient is a pleasant 60-year-old white female who presents today for follow-up. She had bilateral sacroiliac joint injection on March 16, 2021. She is rating her pain today a 5 out of 10. Overall she does feel that the injection improved her discomfort. She feels as though she is 70 to 80% improved today. The patient is continuing to have discomfort in her low back. She has been diagnosed with chronic back pain. Patient is prescribed tramadol 50 mg twice a day and gabapentin 100 mg twice daily from our office. The patient denies any side effects to this medication. She is requesting refills today her Claus number is [phone] she has an active morphine equivalent of 0. Review of Systems General: No recent weight changes, no fever, no sleep disturbances Respiratory: No cough, no shortness of air, no recurring pulmonary infections Cardiovascular/peripheral vascular: No chest pain, no palpitations, no edema, no shortness of breath Gastrointestinal: No new onset incontinence, normal bowel movements reported Genitourinary: No new onset incontinence Musculoskeletal: [Low back pain] Psychiatric: [Normal mood/affect] Neurological: [Denies weakness in extremities], [denies balance issues] Objective:: Physical exam General: Alert and oriented x3 no acute distress, pleasant and cooperative, Lungs: Respirations even and unlabored, symmetrical chest expansion Eyes: PERRL Musculoskeletal: Flexion and extension of the lumbar spine nonguarded, deep tendon reflexes normal, strength in upper and lower extremities 5 out of 5 normal gait noted Neurological: Speech clear, 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 We will provide the patient with 2 months worth of medication refills. She will follow-up in the clinic at that time for prescription refills. She is welcome to contact clinic prior to her next appointment date if she has any questions or concerns. Dr. Robledo has reviewed this note and agrees with this plan of care. This note was dictated using voice recognition software and make contain errors or omissions. [facility] History Medical History: Reports:: Anxiety, Depression, Gastroesophageal Reflux Disease(GERD), Hyperlipidemia, Hypertension, Osteoporosis, Urinary Tract Infection Denies:: Cancer, Diabetes Mellitus Type 1, Diabetes Mellitus Type 2, Internal Pacemaker, Lung Disease, MRSA, Seizures *Have you ever received a pneumonia vaccine?: No *Have you received a flu vaccine this season?: Yes Other Medical History: Reports: Anemia (microcytic), Arthritis, Hypothyroidism, Osteoporosis, Sinus Problems, Thyroid Disease, Other. Denies: Blood Transfusion Reaction Other Surgeries: Yes: Appendectomy, Colonoscopy, EGD, Thyroidectomy, Tubal Ligation, Other. No: Pacemaker Amputation: No Fractures: Yes (back) - *Social History Smoking Status: Never smoker Alcohol Intake: never Substance Use Type: denies use *Occupational Status:: unemployed Housing: house Household Members: spouse *Travel in the last 8 weeks: None - Psychiatric History Pschychiatric History:: Reports:: Anxiety, Depression Family Hx:: Cancer, Coronary Artery Disease, Diabetes, Heart Attack, Hyperlipidemia, Hypertension, Thyroid Disorder, Mental illness
== END ==
PROVIDERS: PCP Internal Medicine Adolescent Medicine; Visit Provider Family Medicine
DX: M46.1 Sacroiliitis, not elsewhere classified (principal); M54.9 Dorsalgia, unspecified; G89.29 Other chronic pain
CPT/HCPCS: 99212; G0463

== ENCOUNTER → 2021-05-09 13:17 | Outpatient (CLI) | payer MEDICAID, SELFPAY ==
[2021-05-09 13:45] LABS: Basophils # 0.1 K/mm3 (0-0.2); Basophils % 0.8 % (0.1-2.0); Eosinophils # 0.1 K/mm3 (0.0-0.4); Eosinophils % 2.4 % (0.1-12.0); Hematocrit 44.7 % (37.0-47.0); Hemoglobin 13.9 g/dL (12.2-16.2); Lymphocytes # 1.2 K/mm3 (0.7-4.5); Lymphocytes % 21.4 % (10-50); Mean Corpuscular HGB Conc 31.1 g/dL (31.8-35.4); Mean Corpuscular Hemoglobin 26.4 pg (27.0-31.2); Mean Corpuscular Volume 84.9 fl (81-99); Mean Platelet Volume 8.3 fl (7.4-10.4); Monocytes # 0.3 K/mm3 (0.1-1.0); Monocytes % 4.4 % (1.7-9.3); Neutrophils # 4.1 K/mm3 (1.8-7.8); Platelet Count 155 K/mm3 (142-424); Red Blood Count 5.26 M/mm3 (4.20-5.40); Red Cell Distribution Width 18.4 % (11.5-17.5); White Blood Count 5.8 K/mm3 (4.8-10.8)
[2021-05-09 19:33] LABS: Alanine Aminotransferase 31 U/L (12-78); Albumin Level 3.9 g/dl (3.5-5.0); Albumin/Globulin Ratio 1.4 (1.1-1.8); Alkaline Phosphatase 62 U/L (38-126); Anion Gap 11.2 mEq/L (5-15); Aspartate Amino Transferase 32 U/L (14-36); Bilirubin,Total 0.4 mg/dl (0.2-1.3); Blood Urea Nitrogen 11 mg/dl (7-17); Calcium 7.7 mg/dl (8.4-10.2); Carbon Dioxide 23 mmol/L (22.0-30.0); Chloride 108 mmol/L (98-107); Estimated Glomerular Filt Rate 162 ml/min (>60); GFR (African American) 196 ML/MIN (>60); Globulin 2.8 g/dL (1.3-3.2); Glucose 106 mg/dl (74-100); Potassium 4.2 mmoL/L (3.5-5.1); Sodium 138 mmol/L (136-145); Total Protein,Serum 6.7 g/dl (6.3-8.2)
[2021-05-09 19:49] LABS: Iron 56 ug/dL (37-170)
[2021-05-09 20:40] LABS: Folate 4.61 ng/mL; Vitamin B12 508 pg/mL (239-931)
[2021-05-09 21:00] LABS: Total Iron Binding Capacity 293 ug/dL (265-497)
[2021-05-09 21:26] LABS: Ferritin 831 ng/ml (11.1-264)
== END ==
PROVIDERS: Visit Provider Internal Medicine Medical Oncology
DX: D64.9 Anemia, unspecified (principal)
CPT/HCPCS: 36415; 80053; 82607; 82728; 82746; 83540; 83550; 85025

== ENCOUNTER → 2021-05-30 11:04 | Outpatient (CLI) | payer MEDICAID, SELFPAY ==
--- NOTE | 2021-05-30 11:08 | XR_ITS ---
PROCEDURE: XR THORACIC SPINE 3V CLINICAL INDICATION: THORACIC SPINE PAIN COMPARISON: CT CT THORACIC SPINE WO CON from 05/17/2020 FINDINGS: There is normal alignment. There is straightening of the thoracic kyphosis which could be due to positioning or muscle spasm. There has been prior kyphoplasty at T11 and T12 with compression changes at T11 and T12 similar to 05/17/2020. There is minimal wedging T4 not readily apparent on the previous exam with loss of height of approximately 30 percent. No obvious retropulsed fragments. IMPRESSION: 1. Mild wedging of T4 not readily apparent on the previous CT scan of 05/17/2020. 2. Chronic wedge compression changes status post kyphoplasty at T11 and T12 Dictated by: Brennon Collado MD 05/30/2021 11:41 Brennon Collado MD in [place] 05/30/2021 11:41
== END ==
PROVIDERS: PCP Internal Medicine Adolescent Medicine; Visit Provider Internal Medicine Adolescent Medicine
DX: M54.6 Pain in thoracic spine (principal)
CPT/HCPCS: 72072

== ENCOUNTER → 2021-06-14 13:22 | Outpatient (POV) | payer MEDICAID, SELFPAY ==
[2021-06-14 13:36] VITALS: PULSE 66; RESP 18; O2SAT 95; BMI 23.6
--- NOTE | 2021-06-14 13:54 | HMH.PAINSOAP ---
[facility] Pain Management SOAP Note Subjective:: Patient is a 61-year-old white female who presents today for follow-up. She is rating her pain a 10 out of 10. She is having pain in her left low back area with radiation into left buttock and left leg. She says the pain is worse with any movement. She is very tearful today. We have managed the patient in the past with injective therapy as well as intrathecal therapy. Unfortunately the patient did not do well with the intrathecal therapy. As result, the intrathecal pump was explanted. She is managed with tramadol 50 mg 1 tablet p.o. twice daily, gabapentin 9 mg 1 tablet p.o. twice daily. Patient says that her current medications are not helping with her acute pain. [facility] #[id number] has been reviewed and is appropriate. Dr. Candelaria did order the patient x-ray of her thoracic spine. Patient does have a history of kyphoplasty at T11-T12. Patient does report to have a current urinary tract infection. She does report chronic history of UTIs. Review of Systems General: No recent weight changes, no fever, no sleep disturbances Respiratory: No cough, no shortness of air, no recurring pulmonary infections Cardiovascular/peripheral vascular: No chest pain, no palpitations, no edema, no shortness of breath Gastrointestinal: No new onset incontinence, normal bowel movements reported Genitourinary: No new onset incontinence Musculoskeletal: Left low back pain with radiation into left buttock and left hip and left leg Psychiatric: [Normal mood/affect] Neurological: [Denies weakness in extremities], [denies balance issues] Objective:: Physical exam General: Alert and oriented x3, no acute distress, pleasant and cooperative, [on room air] Lungs: Respirations even and unlabored, symmetrical chest expansion Eyes: PERRL Musculoskeletal: Flexion and extension of lumbar [spine] somewhat guarded secondary to pain, [antalgic gait noted], positive Fidencio's test, positive distraction test, positive compression test, positive Karlie's test Neurological: Speech clear, no gross sensory deficit Assessment:: Degenerative disc disease lumbar spine with lumbar radiculopathy symptoms, cerebral palsy, sacroiliitis left Plan:: Patient is a 61-year-old female who is here today with acute pain to her left SI joint. She is tender to palpation with a positive Fidencio's, compression, distraction test. She is managed with oral medications of tramadol 50 mg 1 tablet p.o. twice daily, gabapentin 100 mg 1 tablet p.o. twice daily. She is asking for muscle relaxer today. Dr. Candelaria did start the patient on methocarbamol. She has been advised to stop taking this if it is not working for her. She and her report that the medication is not giving her any significant relief. We will order the patient has Tay Rashi 2 mg 1 tablet p.o. twice daily. We will schedule the patient for left SI joint injection. We will see her back after the injection for reevaluation of symptoms. Patient was given oral prednisone 20 mg 1 tablet p.o. twice daily approximately 1 week ago. This did not give her any relief. We will follow up with the patient after her SI injection for reevaluation symptoms. Possible side effects of corticosteroids have been discussed with the patient. Risks and benefits of the procedure have been explained to the patient. Patient would like to proceed with the procedure. Patient has been instructed to contact the clinic with any concerns before the next appointment. Dr. Robledo has reviewed this note and agrees with this plan of care. This note was dictated using voice recognition software and make contain errors or omissions. Patient has been instructed to contact the clinic with any concerns before the next appointment. Dr. Robledo has reviewed this note and agrees with this plan of care. This note was dictated using voice recognition software and make contain errors or omissions. [facility] History I have review
== END ==
PROVIDERS: PCP Internal Medicine Adolescent Medicine; Visit Provider Clinical Nurse Specialist Family Health
DX: M51.16 Intervertebral disc disorders with radiculopathy, lumbar region (principal); M46.1 Sacroiliitis, not elsewhere classified
CPT/HCPCS: 99212; G0463

== ENCOUNTER → 2021-06-15 15:07 | Outpatient (CLI) | payer MEDICAID, SELFPAY | PROVIDERS: Visit Provider Nurse Practitioner Family | DX: R82.90 Unspecified abnormal findings in urine (principal) | CPT/HCPCS: 87086; 87088; 87186 ==

== ENCOUNTER → 2021-06-19 11:57 | Outpatient (CLI) | payer MEDICAID, SELFPAY | PROVIDERS: Visit Provider Surgery | DX: Z01.812 Encounter for preprocedural laboratory examination (principal); Z11.52 Encounter for screening for COVID-19; Z13.810 Encounter for screening for upper gastrointestinal disorder; Z12.11 Encounter for screening for malignant neoplasm of colon | CPT/HCPCS: C9803; U0003; U0005 ==

== ENCOUNTER 2021-06-21 07:49 | Day surgery (SDC) | payer MEDICAID, SELFPAY ==
[2021-06-19 12:38] VITALS: BMI 23.6
[2021-06-21 08:07] VITALS: BP 144/103; PULSE 111; RESP 20; TEMP 36.5; O2SAT 96
[2021-06-21 08:33] VITALS: O2SAT 98
[2021-06-21 09:16] VITALS: BP 96/66; PULSE 91; RESP 18; TEMP 36.1; O2SAT 93
--- NOTE | 2021-06-21 09:21 | HMH.SCOPE ---
- Procedure: Date: 06/21/21 Patient Date of :: 1960 Procedure Performed:: Esophagogastroduodenoscopy with biopsy Colonoscopy Indications:: Anemia Gastroesophageal reflux Epigastric pain Irritable bowel with constipation Note: Patient underwent colonoscopy by Dr. Pablo Diaz in September 2019 that was essentially normal. Performing Provider:: Vivek Velazquez MD Referring Provider:: . Sedation:: Monitored anesthesia care Procedure:: After informed consent was obtained the patient was taken to the endoscopy suite. Sedation ensued after the patient was transferred to the left lateral decubitus position. Pulse, blood pressure, and oxygen saturation were monitored throughout the procedure. The endoscope was advanced beyond the duodenal bulb. Retroflexion within the gastric lumen was accomplished. The gastroscope was carefully removed. Digital rectal exam revealed no significant abnormality. The colonoscope was placed in position. The entire colon was evaluated. The colonoscope was carefully removed and the patient was transferred to recovery in stable condition. Please see findings and specimens below for detail. Findings:: Mild gastritis Sliding hiatal hernia Gastroesophageal junction at 40 cm Bowel preparation poor Hemorrhoidal cushions Specimens:: Antral biopsy Recommendations:: Evaluation with regard to anemia will be ongoing As she has undergone a colonoscopy in September 2019 that was essentially normal...and no significant abnormality noted on this colonoscopy (although limited secondary to poor bowel preparation)...her next colonoscopy can likely be performed in approximately 10 years. Complications:: No immediate with the exception of poor bowel preparation Estimated blood obtained (mL): 1
[2021-06-21 09:26] VITALS: BP 96/66; PULSE 95; RESP 20; O2SAT 95
[2021-06-21 09:36] VITALS: BP 123/90; PULSE 98; RESP 20; O2SAT 97
[2021-06-21 09:46] VITALS: BP 111/63; PULSE 100; RESP 18; O2SAT 95
--- NOTE | 2021-06-21 12:47 | P.PN_ITS ---
[facility] Anesthesia Checklist - Patient Identification Patient Identification: Arm Band, Verbal (Name & ) - Structural Data Admitted From: Home Planned Operative Procedure/s: EGD/Colonoscopy Consent for Planned Operative Procedure(s) Verified: Yes Verified Documents: Surgical Consent - NPO Status Verified Time NPO: 22:00 - Additional verifications Anesthesia Reactions: No Hx Blood Transfusions: No Blood Transfusion Reaction: No - Cardiovascular Assessment Heart Sounds: S1 & S2 - Airway Assessment C-Spine Mobility Assessed: Yes TMJ Mobility Assessed: Yes Dentition: Poor Dentition - Neurological Assessment Level of Consciousness: Awake, Alert, Appropriate - Anesthesia Plan Anesthesia Risk discussed: Yes ASA Class: III Anesthesia Type: General [facility] History Medical History: Reports:: Anxiety, Depression, Gastroesophageal Reflux Disease(GERD), Hyperlipidemia, Hypertension, MRSA (BACK), Osteoporosis, Urinary Tract Infection Denies:: Cancer, Diabetes Mellitus Type 1, Diabetes Mellitus Type 2, Internal Pacemaker, Lung Disease, Seizures *Have you ever received a pneumonia vaccine?: Yes *Have you received a flu vaccine this season?: No Other Medical History: Reports: Anemia, Arthritis, Hypothyroidism, Osteoporosis, Sinus Problems, Thyroid Disease, Other. Denies: Blood Transfusion Reaction Anesthesia experience/problems:: no issues Other Surgeries: Yes: Appendectomy, Colonoscopy, EGD, Thyroidectomy, Tubal Ligation, Other. No: Pacemaker Amputation: No Fractures: Yes (back) - *Social History Last grade of school completed: 9th or 10th Smoking Status: Never smoker Alcohol Intake: never Substance Use Type: denies use *Occupational Status:: disabled Housing: house Household Members: spouse *Travel in the last 8 weeks: None - Psychiatric History Pschychiatric History:: Reports:: Anxiety, Depression Family Hx:: Cancer, Diabetes, Heart Attack
== END 2021-06-21 10:00 | disposition home or self-care (01) ==
LOC: OUTP 07:51
PROVIDERS: PCP Internal Medicine Adolescent Medicine; Visit Provider Surgery
PROC: 0DJ08ZZ Inspection of Upper Intestinal Tract, Via Natural or Artificial Opening Endoscopic (ICD-10-PCS; CPT 43235; principal; 2021-06-21 08:30)
DX: K58.1 Irritable bowel syndrome with constipation (principal); K29.70 Gastritis, unspecified, without bleeding; K44.9 Diaphragmatic hernia without obstruction or gangrene; D64.9 Anemia, unspecified; K21.9 Gastro-esophageal reflux disease without esophagitis; E11.9 Type 2 diabetes mellitus without complications; I25.10 Atherosclerotic heart disease of native coronary artery without angina pectoris; I25.2 Old myocardial infarction; G80.9 Cerebral palsy, unspecified; G81.94 Hemiplegia, unspecified affecting left nondominant side; Z88.2 Allergy status to sulfonamides; Z88.8 Allergy status to other drugs, medicaments and biological substances
CPT/HCPCS: 43239; 45380; J0330

== ENCOUNTER → 2021-07-04 10:53 | Outpatient (CLI) | payer MEDICAID, SELFPAY ==
[2021-07-04 11:19] LABS: Hematocrit 45.7 % (37.0-47.0); Hemoglobin 14.1 g/dL (12.2-16.2)
== END ==
PROVIDERS: Visit Provider Surgery
DX: D64.9 Anemia, unspecified (principal)
CPT/HCPCS: 36415; 85014; 85018

== ENCOUNTER 2021-07-06 10:24 | Day surgery (SDC) | payer MEDICAID, SELFPAY ==
[2021-07-06 10:33] VITALS: BP 104/74; PULSE 109; RESP 18; TEMP 36.4; O2SAT 95; BMI 23.6
[2021-07-06 11:23] VITALS: BP 125/92; PULSE 68; RESP 18; O2SAT 94
[2021-07-06 11:25] VITALS: BP 125/92; PULSE 93; RESP 18; O2SAT 96
--- NOTE | 2021-07-06 11:33 | P.PCN_ITS ---
- Procedure Date: 07/06/21 Time: 11:33 Anesthesiologist:: Aneesh Robledo MD Complications:: None Pre-procedure Diagnosis:: Sacroiliitis and trochanteric bursitis Post-procedure Diagnosis:: Same Indications for Procedure:: Patient is a pleasant 61-year-old white female who we are treating for sacroiliitis and trochanteric bursitis. She has bilateral hip pain will concentrate on left side. She does have a positive Fidencio's test on left side, positive distraction test on the left side, positive compression test on left side. We will plan on a left SI joint injection and a left trochanteric bursa injection today. She is tender over the left trochanteric bursa as well. Procedure Details:: Left SI joint injection under fluoroscopy Informed consent was obtained and the risks and benefits of the procedure was explained to the patient. Patient was taken to the procedure room. Patient was placed prone on the procedure table. The left hip was prepped using ChloraPrep. The skin and subcutaneous tissues were anesthetized using lidocaine. I placed a 22-gauge spinal needle into the inferior aspect of the left SI joint. Needle placement was confirmed with dye. After this we injected 5 mL bupivacaine 0.25% and Depo-Medrol 40 mg into the left SI joint. The patient tolerated the procedure well with no complication. Left trochanteric bursa injection under fluoroscopy informed consent was obtained and the risk and benefits of the procedure was explained to the patient. The patient was taken to procedure room and placed prone on the procedure table. The left hip was prepped using ChloraPrep. The skin and subcutaneous tissues were anesthetized using lidocaine. I placed a 22- gauge spinal needle under fluoroscopic guidance and advanced until it contacted the left greater trochanter. Needle placement was confirmed with dye. After this we injected 5 mL bupivacaine 0.25% and Depo-Medrol 40 mg. Patient tolerated the procedure well with no complications. Plan and Disposition:: We will follow-up with her in 2 weeks. Will reevaluate symptoms at that time.
[2021-07-06 11:40] VITALS: BP 117/60; PULSE 78; RESP 20; O2SAT 98
== END 2021-07-06 11:40 | disposition home or self-care (01) ==
LOC: SC.PAINP 10:25
PROVIDERS: PCP Internal Medicine Adolescent Medicine; Visit Provider Anesthesiology
DX: M46.1 Sacroiliitis, not elsewhere classified (principal); M70.62 Trochanteric bursitis, left hip; E78.5 Hyperlipidemia, unspecified; I10 Essential (primary) hypertension; K21.9 Gastro-esophageal reflux disease without esophagitis; E03.9 Hypothyroidism, unspecified; F41.9 Anxiety disorder, unspecified; F32.9 Major depressive disorder, single episode, unspecified; D64.9 Anemia, unspecified; G80.9 Cerebral palsy, unspecified; Z88.2 Allergy status to sulfonamides; Z88.8 Allergy status to other drugs, medicaments and biological substances
CPT/HCPCS: 20610; 27096; 77002; G0260; J1040; Q9966

== ENCOUNTER → 2021-07-09 08:55 | Outpatient (CLI) | payer MEDICAID, SELFPAY ==
--- NOTE | 2021-07-09 08:55 | FL_ITS ---
PROCEDURE: FL UPPER GI SMALL BOWEL CLINICAL INDICATION: nausea COMPARISON: No exams were available for comparison FINDINGS: Possibly time: 2 minutes and 8 seconds. Rn Infusion exam shows prior kyphoplasty T11 and T12. Patulous esophagus. No annular constricting lesions or filling defects. The stomach has an unremarkable appearance. Unremarkable appearing duodenum. No ulcer or mass. Small bowel shows no evidence of obstruction. No mucosal abnormalities or masses. Spot views of the terminal ileum are unremarkable. IMPRESSION: Patulous esophagus otherwise negative upper GI and small-bowel follow-through Dictated by: Brennon Collado MD 07/09/2021 16:02 Brennon Collado MD in OV 07/09/2021 16:02
== END ==
PROVIDERS: PCP Internal Medicine Adolescent Medicine; Visit Provider Surgery
DX: R11.0 Nausea (principal)
CPT/HCPCS: 74246; 74248

== ENCOUNTER 2021-07-11 20:33 | Emergency (ER) | payer MEDICAID, SELFPAY ==
[2021-07-11 21:00] VITALS: BP 148/92; PULSE 104; RESP 20; TEMP 37; O2SAT 96; BMI 22.8
--- NOTE | 2021-07-11 21:43 | HMH.EDUTC ---
[facility] Disposition Clinical Impression: UTI (urinary tract infection) Qualifiers: Urinary tract infection type: site unspecified Hematuria presence: with hematuria Qualified Code(s): N39.0 - Urinary tract infection, site not specified; R31.9 - Hematuria, unspecified Disposition: Home, Self-Care Condition on Discharge: Good Instructions: Urinary Tract Infection, DI for Urinary Tract Infection (UTI) Additional Instructions: *Increase fluids. Water not Soda or Tea *Start antibiotic immediately and be sure to take as ordered for the FULL length of time although you should start to see improvement over the next 48 hours *Be SURE to follow up anytime for new or worsening symptoms with your family doctor. AND in 48 hours for urine culture results with your family doctor, if you do not have a doctor then you may call back to the [facility] for urine culture results and further treatment. We do recommend that you choose and establish care with a Primary Care Physician. AND follow up with them in 10-14 days to repeat UA to ensure infection is resolved and blood no longer present *Be sure to let your PCP know that we sent urine cultures from the [facility] so they can follow up to ensure that you area the on the correct antibiotic Call your doctor office and make appointment for 48 hours (2 days from today) to follow up and get the results of your urine culture and further treatment Prescriptions: Nitrofurantoin Monohyd/M-Cryst [Macrobid 100 mg Capsule] 100 mg PO BID 5 Days #10 cap Transmission Status: Pending to [id number] Referrals: Luis Henderson MD [Primary Care Provider] - As needed Time of Disposition: 22:11 Medical Decision Making - Claus Inquiry Pt receiving controlled substance: No Claus was queried for this patient: No Vital Signs: 07/11/21 21:00 Temperature 98.6 F Temperature Source Oral Pulse Rate [Right Brachial] 104 H Respiratory Rate 20 Blood Pressure [Right Arm] 148/92 H Blood Pressure Mean [Right Arm] 110 Blood Pressure Source [Right Arm] Automatic Cuff Blood Pressure Position [Right Arm] Sitting 02 Sat by Pulse Oximetry 96 Oxygen Delivery Method Room Air - Lab Data Lab results reviewed: Yes: I reviewed the patient's lab results. Medical Decision Narrative: Medication discussed with pharmacy [facility] HPI - General Stated complaint: possible uti trouble urinating Time Seen by Provider: 07/11/21 21:43 Mode of Arrival: Ambulatory Source of Information: Patient Limitations: No Limitations Description of Symptoms (Recalled from Triage Doc. by RN): PATIENT C/O LOWER ABDOMINAL PAIN X 2 DAYS HEENT Symptoms (Recalled from RN notes): No Resp Symptoms (Recalled from RN notes): No Skin Symptoms (Recalled from RN notes): No MS Symptoms (Recalled from RN notes): No Functional Status (Recalled from RN notes): WNL - History of Present Illness Provider Complaint: Patient states that she has been having pressure like feeling in her lower abdomen States that she feels like she may have a UTI States that she has to be cathed to relieve urine and today she has been having pressure like feeling in her abdomen and noticed that her urine looked dark when she was cathed earlier so she came in to get checked - Related Data Home Medications Medication Instructions Recorded Confirmed baclofen 20 mg tablet 20 mg PO Q8H 09/13/17 07/06/21 clotrimazole-betamethasone 1 1 applic TOPICAL BID 09/13/17 07/06/21 %-0.05 % topical cream fluticasone propionate 50 50 mcg INTRANASAL DAILY 09/13/17 07/06/21 mcg/actuation nasal spray,suspension omeprazole 20 mg capsule,delayed 20 mg PO DAILY 09/13/17 07/06/21 release albuterol sulfate 90 mcg/actuation 2 puff INHALATION QID 11/04/18 07/06/21 aerosol inhaler cyanocobalamin (vitamin B-12) 1,000 mcg IM QMONTH 11/04/18 07/06/21 1,000 mcg/mL injection solution estradiol 1 g VAGINAL QWEEK 11/04/18 07/06/21 linaclotide 72 mcg capsule 72 mcg PO DAILY 11/04/18 07/06/21 Methe
[2021-07-11 21:48] LABS: Apearance,Urine Cloudy (Clear); Color,Urine Dark Yellow (Yellow); PH,Urine 5.5 (5.0-8.5)
[2021-07-11 21:49] LABS: Bilirubin,Urine Negative (Negative); Blood, Urine Negative (Negative); Glucose,Urine (UA) Negative (Negative); Ketones,Urine TRACE (Negative); Protein,Urine Negative (Negative); Specific Gravity, Urine 1.025 (1.005-1.030); UTC Leukocyte Esterase,Urine 1+ (Negative); UTC Nitrate,Urine Positive (Negative); Urobilinogen,Urine 0.2 EU/dl (0.2)
--- NOTE | 2021-07-11 21:49 | PC.NURSE ---
IN AND OUT CATH PERFORMED AT THIS TIME USING STERILE TECHNIQUE. 275 ML OF CLOUDY, DARK YELLOW URINE EMPTIED FROM BLADDER
[2021-07-11 21:50] VITALS: BP 148/92; PULSE 104; RESP 20; TEMP 37; O2SAT 96
== END 2021-07-11 22:15 | disposition home or self-care (01) ==
PROVIDERS: Emergency Provider Nurse Practitioner; PCP Internal Medicine Adolescent Medicine
DX: N30.01 Acute cystitis with hematuria (principal); I10 Essential (primary) hypertension; E03.9 Hypothyroidism, unspecified; M81.0 Age-related osteoporosis without current pathological fracture; E78.5 Hyperlipidemia, unspecified; K21.9 Gastro-esophageal reflux disease without esophagitis; F41.8 Other specified anxiety disorders; Z79.899 Other long term (current) drug therapy
CPT/HCPCS: 81003; 87086; 87088; 87186; 99202; G0463

== ENCOUNTER → 2021-07-19 15:27 | Outpatient (CLI) | payer MEDICAID, SELFPAY | PROVIDERS: Visit Provider Nurse Practitioner Family | DX: N39.0 Urinary tract infection, site not specified (principal); B96.20 Unspecified Escherichia coli [E. coli] as the cause of diseases classified elsewhere | CPT/HCPCS: 87086; 87088; 87186 ==

== ENCOUNTER → 2021-07-26 10:38 | Outpatient (POV) | payer MEDICAID, SELFPAY ==
--- NOTE | 2021-07-26 10:54 | HMH.PAINSOAP ---
[facility] Pain Management SOAP Note Subjective:: Patient is a 61-year-old white female who presents today for follow-up after sacroiliac joint injection as well as trochanteric bursa injection. She says that she got significant relief with the injections. She rates her pain a 7 out of 10 at this time. She is managed in our clinic with oral medications of tramadol 50 mg 1 tablet p.o. twice daily and gabapentin milligrams 1 tablet p.o. twice daily. The medications give her up to 40 to 60% relief. The patient's care is managed by her . She does have to perform self-catheterization as well as limited mobility. Her helps her a great deal with daily activity. He also helps with cooking, cleaning and taking the patient to appointments. At this time, the patient is in group home in [facility]. She does report he will be released today. She has had difficulty getting to appointments and managing her daily routine and care due to him not being in the home. She does rate her pain a 7 out of 10 today. Review of Systems General: No recent weight changes, no fever, no sleep disturbances Respiratory: No cough, no shortness of air, no recurring pulmonary infections Cardiovascular/peripheral vascular: No chest pain, no palpitations, no edema, no shortness of breath Gastrointestinal: No new onset incontinence, normal bowel movements reported Genitourinary: No new onset incontinence Musculoskeletal: Low back pain, bilateral leg pain Psychiatric: [Normal mood/affect] Neurological: [Denies weakness in extremities], [denies balance issues] Objective:: Physical exam General: Alert and oriented x3, no acute distress, pleasant and cooperative Lungs: Respirations even and unlabored, symmetrical chest expansion Eyes: PERRL Musculoskeletal: Flexion and extension of lumbar [spine] somewhat guarded secondary to pain, [antalgic gait noted] Neurological: Speech clear, no gross sensory deficit Assessment:: Degenerative disc disease lumbar spine with lumbar radiculopathy symptoms, sacroiliitis, trochanteric bursitis Plan:: Patient is doing well overall since her injections. We will continue the patient on tramadol 50 mg 1 tablet p.o. twice daily and gabapentin 100 mg 1 tablet p.o. twice daily. We will give the patient 3 months of medication see her back in the clinic in 3 months. She has been advised she is at risk for oversedation with the medications. Risks and benefits of the medication have been explained in detail to the patient. The patient does understand the risk of dependence on the medication when given over a prolonged period. Patient has been advised of risks of oversedation with the prescribed medication. Narcan has been offered to the paitent in the event of oversedation. Patient has been advised that a family member should also be educated regarding administration of Narcan. The patient has been advised to consult with his/her primary care provider and pharmacist regarding drug-drug interaction of medications currently prescribed. Patient has been prescribed a controlled substance after being counseled on the medication, medication safety, and possible side effects. ROWENA report has been obtained and reviewed prior to prescription and found to be appropriate. Opioid contract was reviewed and signed by the patient, and that they have agreed to all of the terms set forth by our compliance program. Patient has been instructed to contact the clinic with any concerns before the next appointment. Dr. Robledo has reviewed this note and agrees with this plan of care. This note was dictated using voice recognition software and make contain errors or omissions. [facility] History I have reviewed the patient's past medical history: Yes Medical History: Reports:: Anxiety, Depression, Gastroesophageal Reflux Disease(GERD), Hyperlipidemia, Hypertension, Osteoporosis, Urinary Tract Infection Denies:: Cancer, Diabetes Mellitus Type 1,
[2021-07-26 10:58] VITALS: BP 138/76; PULSE 84; RESP 18; O2SAT 96; BMI 23.6
== END ==
PROVIDERS: Visit Provider Clinical Nurse Specialist Family Health
DX: M51.16 Intervertebral disc disorders with radiculopathy, lumbar region (principal); M46.1 Sacroiliitis, not elsewhere classified; M70.60 Trochanteric bursitis, unspecified hip
CPT/HCPCS: 99212; G0463

== ENCOUNTER → 2021-08-16 15:28 | Outpatient (CLI) | payer MEDICAID, SELFPAY | PROVIDERS: Visit Provider Internal Medicine Adolescent Medicine | DX: R82.90 Unspecified abnormal findings in urine (principal); B96.1 Klebsiella pneumoniae [K. pneumoniae] as the cause of diseases classified elsewhere | CPT/HCPCS: 87086; 87088; 87186 ==

== ENCOUNTER → 2021-09-10 12:47 | Outpatient (CLI) | payer MEDICAID, SELFPAY ==
[2021-09-10 13:26] LABS: Basophils # 0.1 K/mm3 (0-0.2); Basophils % 1.1 % (0.1-2.0); Eosinophils # 0.1 K/mm3 (0.0-0.4); Eosinophils % 2.3 % (0.1-12.0); Hematocrit 42.3 % (37.0-47.0); Hemoglobin 13.3 g/dL (12.2-16.2); Lymphocytes # 1.1 K/mm3 (0.7-4.5); Mean Corpuscular HGB Conc 31.6 g/dL (31.8-35.4); Mean Corpuscular Hemoglobin 27.6 pg (27.0-31.2); Mean Corpuscular Volume 87.3 fl (81-99); Mean Platelet Volume 8.4 fl (7.4-10.4); Monocytes # 0.3 K/mm3 (0.1-1.0); Neutrophils # 3.8 K/mm3 (1.8-7.8); Neutrophils % 71.7 % (37.0-80.0); Platelet Count 162 K/mm3 (142-424); Red Blood Count 4.84 M/mm3 (4.20-5.40); Red Cell Distribution Width 15.3 % (11.5-17.5); White Blood Count 5.2 K/mm3 (4.8-10.8)
[2021-09-10 14:45] LABS: Chloride 103 mmol/L (98-107)
[2021-09-10 14:46] LABS: Potassium 4.6 mmoL/L (3.5-5.1); Sodium 139 mmol/L (136-145)
[2021-09-10 14:48] LABS: Alanine Aminotransferase 22 U/L (12-78); Alkaline Phosphatase 43 U/L (38-126); Aspartate Amino Transferase 27 U/L (14-36); Bilirubin,Total 0.5 mg/dl (0.2-1.3); Blood Urea Nitrogen 16 mg/dl (7-17); Estimated Glomerular Filt Rate 125 ml/min (>60); GFR (African American) 151 ML/MIN (>60)
[2021-09-10 14:49] LABS: Albumin Level 4.4 g/dl (3.5-5.0); Albumin/Globulin Ratio 1.8 (1.1-1.8); Anion Gap 14.6 mEq/L (5-15); Calcium 9.4 mg/dl (8.4-10.2); Carbon Dioxide 26 mmol/L (22.0-30.0); Globulin 2.5 g/dL (1.3-3.2); Glucose 98 mg/dl (74-100); Total Protein,Serum 6.9 g/dl (6.3-8.2)
== END ==
PROVIDERS: Visit Provider Nurse Practitioner Family
DX: R40.4 Transient alteration of awareness (principal); E87.8 Other disorders of electrolyte and fluid balance, not elsewhere classified
CPT/HCPCS: 36415; 80053; 83735; 84443; 85025

== ENCOUNTER 2021-10-09 12:30 | Outpatient (RCR) | payer MEDICAID, SELFPAY | END 2021-10-09 13:50 | disposition home or self-care (01) | LOC: PT 12:30 | PROVIDERS: PCP Internal Medicine Adolescent Medicine; Visit Provider Internal Medicine Adolescent Medicine | DX: G80.9 Cerebral palsy, unspecified (principal); R26.9 Unspecified abnormalities of gait and mobility; M19.90 Unspecified osteoarthritis, unspecified site | CPT/HCPCS: 97542 ==

== ENCOUNTER → 2021-11-15 11:26 | Outpatient (CLI) | payer MEDICAID, SELFPAY ==
[2021-11-15 12:21] LABS: Basophils # 0.1 K/mm3 (0-0.2); Basophils % 2.5 % (0.1-2.0); Eosinophils # 0.1 K/mm3 (0.0-0.4); Eosinophils % 2.7 % (0.1-12.0); Hematocrit 44.8 % (37.0-47.0); Hemoglobin 14.3 g/dL (12.2-16.2); Lymphocytes % 20.3 % (10-50); Mean Corpuscular Hemoglobin 27.5 pg (27.0-31.2); Mean Platelet Volume 8.2 fl (7.4-10.4); Monocytes # 0.2 K/mm3 (0.1-1.0); Monocytes % 4.5 % (1.7-9.3); Neutrophils # 3.3 K/mm3 (1.8-7.8); Neutrophils % 70.1 % (37.0-80.0); Platelet Count 155 K/mm3 (142-424); Red Blood Count 5.21 M/mm3 (4.20-5.40); Red Cell Distribution Width 14.7 % (11.5-17.5); White Blood Count 4.7 K/mm3 (4.8-10.8)
[2021-11-15 13:00] LABS: Iron 92 ug/dL (37-170)
[2021-11-15 13:10] LABS: Total Iron Binding Capacity 328 ug/dL (265-497)
[2021-11-15 13:38] LABS: Ferritin 572 ng/ml (11.1-264)
== END ==
PROVIDERS: Visit Provider Internal Medicine Medical Oncology
DX: D50.9 Iron deficiency anemia, unspecified (principal)
CPT/HCPCS: 36415; 82728; 83540; 83550; 85025

== ENCOUNTER → 2022-03-07 14:11 | Outpatient (POV) | payer MEDICAID, SELFPAY ==
--- NOTE | 2022-03-07 15:17 | HMH.PAINSOAP ---
[facility] Pain Management SOAP Note Subjective:: Patient is a pleasant 61-year-old white female who presents today for follow-up. She is currently being treated for degenerative disc disease of lumbar spine with lumbar radiculopathy symptoms, sacroiliitis, and greater trochanteric bursitis. We have done injective therapy for this patient in the past. She has gotten significant relief with those injections. Today she rates her pain a 9 out of 10. She states her pain is in her hips more on the left side today and her left knee. She states these are a constant ache, throbbing. She has limited mobility and relies on her for a lot of daily activities. She has a history of cerebral palsy and seizures. Her primary care provider had her discontinue her tramadol after her last seizure in December. Her Claus is [phone]. Has been reviewed and is appropriate. Review of Systems: General: No recent weight changes, no fever, no sleep disturbances Respiratory: No cough, no shortness of air, no recurring pulmonary infections Cardiovascular/peripheral vascular: No chest pain, no palpitations, no edema, no shortness of breath Gastrointestinal: No new onset incontinence, normal bowel movements reported Genitourinary: No new onset incontinence Musculoskeletal: Low back pain, left knee pain Psychiatric: [Normal mood/affect] Neurological: [Denies weakness in extremities], [denies balance issues] Objective:: Physical Exam: General: Alert and oriented x3, no acute distress, pleasant and cooperative Lungs: Respirations even and unlabored, symmetrical chest expansion Eyes: PERRL Musculoskeletal: Flexion and extension of lumbar [spine] somewhat guarded secondary to pain, [antalgic gait noted] Neurological: Speech clear, no gross sensory deficit Assessment:: Generative disc disease of lumbar spine with lumbar radiculopathy symptoms, sacroiliitis, greater trochanteric bursitis Plan:: Patient has had significant relief with injective therapy in the past. Today the patient states her pain is mostly in her hips. Patient had point tenderness on bilateral hips during evaluation. I have discussed with the patient about doing bilateral greater trochanteric bursa injections. Risks and benefits have been discussed with the patient and she would like to proceed forward. We will schedule her today for her bilateral greater trochanteric bursa injections. We will also order the compounding cream at today's visit as well as refill her gabapentin 100 mg twice daily. Patient was leery about starting the gabapentin medication again due to recent history of seizures. I did discuss with patient that she could start 1 tab at bedtime. Patient would like to possibly do a left knee injection at a later date. Patient has been instructed to contact the clinic with any concerns before the next appointment. Dr. Robledo has reviewed this note and agrees with this plan of care. This note was dictated using voice recognition software and make contain errors or omissions. [facility] History I have reviewed the patient's past medical history: Yes Medical History: Reports:: Anxiety, Depression, Gastroesophageal Reflux Disease(GERD), Hyperlipidemia, Hypertension, Osteoporosis, Seizures, Urinary Tract Infection Denies:: Cancer, Diabetes Mellitus Type 1, Diabetes Mellitus Type 2, Internal Pacemaker, Lung Disease, MRSA *Have you ever received a pneumonia vaccine?: Yes *Have you received a flu vaccine this season?: Yes Other Medical History: Reports: Anemia, Arthritis, Hypothyroidism, Osteoporosis, Sinus Problems, Thyroid Disease, Other. Denies: Blood Transfusion Reaction Other Surgeries: Yes: Appendectomy, Colonoscopy, EGD, Thyroidectomy, Tubal Ligation, Other. No: Pacemaker Amputation: No Fractures: Yes (back) - *Social History Smoking Status: Never smoker Alcohol Intake: never Substance Use Type: denies use *Occupational Status:: unemployed Housing: house Household Members: spouse *Travel in
[2022-03-07 16:43] VITALS: BP 118/61; PULSE 96; RESP 18; TEMP 36.8; O2SAT 95; BMI 24.5
== END ==
PROVIDERS: Visit Provider Student in an Organized Health Care Education/Training Program
DX: M51.16 Intervertebral disc disorders with radiculopathy, lumbar region (principal); M46.1 Sacroiliitis, not elsewhere classified; M70.61 Trochanteric bursitis, right hip; M70.62 Trochanteric bursitis, left hip
CPT/HCPCS: 99212; G0463

== ENCOUNTER 2022-03-15 11:36 | Day surgery (SDC) | payer MEDICAID, SELFPAY ==
[2022-03-15 11:54] VITALS: BP 117/85; PULSE 88; RESP 20
[2022-03-15 11:56] VITALS: BP 119/77; PULSE 85; RESP 18; TEMP 36.6; O2SAT 95; BMI 90.0
--- NOTE | 2022-03-15 12:01 | HMH.PMPROC ---
- Procedure Date: 03/15/22 Time: 12:01 Anesthesiologist:: Francisco Javier Mcdonald CRNA Complications:: None Pre-procedure Diagnosis:: Bilateral trochanteric bursitis Post-procedure Diagnosis:: Bilateral trochanteric bursitis Indications for Procedure:: Bilateral trochanteric bursitis Procedure Details:: Details of the procedure were explained to the patient. Patient taken to procedure room placed in the supine position on the fluoroscopy table. Using fluoroscopy guidance the right bursa was injected with a 25-gauge needle 3 cc of 0.25% Marcaine +3 cc of 1% lidocaine and 40 mg of Depo-Medrol. The same procedure was carried out on the left trochanteric bursa. Plan and Disposition:: Patient was discharged without incident.
[2022-03-15 12:09] VITALS: BP 109/73; PULSE 83; RESP 17; O2SAT 96
== END 2022-03-15 12:10 | disposition home or self-care (01) ==
LOC: SC.PAINP 11:37
PROVIDERS: PCP Internal Medicine Adolescent Medicine; Visit Provider Nurse Anesthetist, Certified Registered
DX: M70.61 Trochanteric bursitis, right hip (principal); M70.62 Trochanteric bursitis, left hip
CPT/HCPCS: 20610; 77002; J1040

== ENCOUNTER → 2022-03-26 12:54 | Outpatient (CLI) | payer MEDICAID, SELFPAY ==
--- NOTE | 2022-03-26 12:57 | US_ITS ---
FINAL REPORT TECHNIQUE: Sonographic images were obtained of the retroperitoneum. CLINICAL HISTORY: INCOMPLETE EMPTYING OF BLADDER FINDINGS: The right kidney measures 9.7 cm. The left kidney measures 11.4 cm. There is no evidence of renal mass or hydronephrosis. The spleen is borderline enlarged at 12.8 cm. IMPRESSION: Borderline splenomegaly. Reviewed, Interpreted and Dictated by Rick Villagomez III, MD Transcribed by Oskar Trevino Authenticated and [facility]
== END ==
PROVIDERS: PCP Internal Medicine Adolescent Medicine; Visit Provider Internal Medicine
DX: R33.9 Retention of urine, unspecified (principal)
CPT/HCPCS: 76770

== ENCOUNTER → 2022-04-08 13:37 | Outpatient (POV) | payer MEDICAID, SELFPAY ==
--- NOTE | 2022-04-08 13:59 | HMH.PAINSOAP ---
[facility] Pain Management SOAP Note Subjective:: Patient is a pleasant 61-year-old female with a medical history of cerebral palsy and seizures. She presents today for follow-up after a bilateral greater trochanteric bursa injections. Patient is currently being treated for degenerative disc disease of the lumbar spine with lumbar radiculopathy symptoms, sacroiliitis, greater trochanteric bursitis, osteoarthritis of the left knee. After her injection, patient had significant relief of 80 to 90% and continues to have relief today. She rates her pain a 6 out of 10. Her main concern today is her left knee pain. From her knee x-ray last year, it does show that she has osteoarthritis on her left knee. She has been having issues with her mobility because of this. She mostly gets around with a motorized wheelchair. For pain, she is being managed with gabapentin 100 mg twice a day and compounding cream that are prescribed in this clinic. She states that these medications are helping her significantly and is wanting refills on her gabapentin. Claus [phone] with an active morphine equivalent of 0. Review of Systems: General: No recent weight changes, no fever, no sleep disturbances Respiratory: No cough, no shortness of air, no recurring pulmonary infections Cardiovascular/peripheral vascular: No chest pain, no palpitations, no edema, no shortness of breath Gastrointestinal: No new onset incontinence, normal bowel movements reported Genitourinary: No new onset incontinence Musculoskeletal: Left knee pain Psychiatric: [Normal mood/affect] Neurological: [Denies weakness in extremities], [denies balance issues] Objective:: Physical Exam: General: Alert and oriented x3, no acute distress, pleasant and cooperative Lungs: Respirations even and unlabored, symmetrical chest expansion Eyes: PERRL Musculoskeletal: Flexion and extension of lumbar [spine] somewhat guarded secondary to pain, [antalgic gait noted]; limited range of motion of the left knee secondary to pain Neurological: Speech clear, no gross sensory deficit Assessment:: Osteoarthritis of the left knee, degenerative disc disease of lumbar spine with lumbar radiculopathy symptoms, sacroiliitis, greater trochanteric bursitis Plan:: Patient continues have significant relief after her bilateral greater trochanteric bursa injections. She is mainly complaining of her left knee pain today. We will schedule her for a left knee intra-articular injections. We will continue her gabapentin 100 mg twice a day and provide the patient with 2 months worth of refill. Patient has been instructed to contact the clinic with any concerns before the next appointment. Dr. Robledo has reviewed this note and agrees with this plan of care. This note was dictated using voice recognition software and make contain errors or omissions. [facility] History Medical History: Reports:: Anxiety, Depression, Gastroesophageal Reflux Disease(GERD), Hyperlipidemia, Hypertension, Osteoporosis, Seizures, Urinary Tract Infection Denies:: Cancer, Diabetes Mellitus Type 1, Diabetes Mellitus Type 2, Internal Pacemaker, Lung Disease, MRSA *Have you ever received a pneumonia vaccine?: No *Have you received a flu vaccine this season?: Yes Other Medical History: Reports: Anemia, Arthritis, Hypothyroidism, Osteoporosis, Sinus Problems, Thyroid Disease, Other. Denies: Blood Transfusion Reaction Other Surgeries: Yes: Appendectomy, Colonoscopy, EGD, Thyroidectomy, Tubal Ligation, Other. No: Pacemaker Amputation: No Fractures: Yes (back) - *Social History Smoking Status: Never smoker Alcohol Intake: never Substance Use Type: denies use *Occupational Status:: unemployed Housing: house Household Members: spouse *Travel in the last 8 weeks: Inside the [facility] - Psychiatric History Pschychiatric History:: Reports:: Anxiety, Depression Family Hx:: No significant family history
[2022-04-08 14:14] VITALS: BP 125/90; PULSE 87; RESP 18; TEMP 36.6; O2SAT 96; BMI 24.5
== END ==
PROVIDERS: PCP Internal Medicine Adolescent Medicine; Visit Provider Student in an Organized Health Care Education/Training Program
DX: M51.16 Intervertebral disc disorders with radiculopathy, lumbar region (principal); M46.1 Sacroiliitis, not elsewhere classified; M17.12 Unilateral primary osteoarthritis, left knee; M70.61 Trochanteric bursitis, right hip; M70.62 Trochanteric bursitis, left hip
CPT/HCPCS: 99212; G0463

== ENCOUNTER 2022-04-19 12:57 | Day surgery (SDC) | payer MEDICAID, SELFPAY ==
[2022-04-19 13:09] VITALS: BP 133/87; PULSE 93; TEMP 36.4; O2SAT 95; BMI 24.5
--- NOTE | 2022-04-19 13:21 | HMH.PMPROC ---
- Procedure Date: 04/19/22 Time: 13:21 Anesthesiologist:: Francisco Javier Mcdonald CRNA Complications:: None Pre-procedure Diagnosis:: Osteoarthritis left knee Post-procedure Diagnosis:: Same Indications for Procedure:: This patient is a pleasant 61-year-old female that comes to our clinic today for left intra-articular knee injection. Patient has had intra-articular knee injections in the past with significant improvement. She rates her pain 6/10. Patient describes the left knee pain is constant and intermittent. Dull aching as well as sharp stabbing at times. Procedure Details:: Details of the procedure were explained to the patient. The patient was placed in the sitting position. The area over the left knee was cleaned using chlorhexidine as a cleansing solution. The left knee was accessed with ease using a 25-gauge needle and after negative aspiration 6 cc of solution was injected containing 3 cc of 0.25% Marcaine +2 cc of 1% lidocaine and 40 mg of Depo-Medrol. Needle was withdrawn. Band-Aid applied. Patient tolerated the procedure without difficulty. Plan and Disposition:: Patient was discharged without incident.
[2022-04-19 13:25] VITALS: BP 143/85; PULSE 86; RESP 18; O2SAT 93
== END 2022-04-19 13:25 | disposition home or self-care (01) ==
LOC: SC.PAINP 12:57
PROVIDERS: PCP Internal Medicine Adolescent Medicine; Visit Provider Nurse Anesthetist, Certified Registered
DX: M17.12 Unilateral primary osteoarthritis, left knee (principal)
CPT/HCPCS: 20610; J1040

== ENCOUNTER → 2022-05-23 11:33 | Outpatient (CLI) | payer MEDICAID, SELFPAY ==
[2022-05-23 11:59] LABS: Basophils # 0.1 K/mm3 (0-0.2); Basophils % 1.7 % (0.1-2.0); Eosinophils # 0.2 K/mm3 (0.0-0.4); Eosinophils % 3.4 % (0.1-12.0); Hematocrit 43.9 % (37.0-47.0); Hemoglobin 13.8 g/dL (12.2-16.2); Lymphocytes # 1.1 K/mm3 (0.7-4.5); Lymphocytes % 23.7 % (10-50); Mean Corpuscular HGB Conc 31.5 g/dL (31.8-35.4); Mean Corpuscular Hemoglobin 27.4 pg (27.0-31.2); Mean Corpuscular Volume 86.8 fl (81-99); Mean Platelet Volume 8.1 fl (7.4-10.4); Monocytes # 0.3 K/mm3 (0.1-1.0); Monocytes % 5.4 % (1.7-9.3); Neutrophils # 3.1 K/mm3 (1.8-7.8); Neutrophils % 65.8 % (37.0-80.0); Platelet Count 168 K/mm3 (142-424); Red Blood Count 5.05 M/mm3 (4.20-5.40); Red Cell Distribution Width 15.3 % (11.5-17.5); White Blood Count 4.7 K/mm3 (4.8-10.8)
[2022-05-23 12:48] LABS: Iron 73 ug/dL (37-170)
[2022-05-23 12:57] LABS: Total Iron Binding Capacity 294 ug/dL (265-497)
[2022-05-23 13:25] LABS: Ferritin 470 ng/ml (11.1-264)
== END ==
PROVIDERS: PCP Internal Medicine Adolescent Medicine; Visit Provider Internal Medicine Medical Oncology
DX: D50.9 Iron deficiency anemia, unspecified (principal)
CPT/HCPCS: 36415; 82728; 83540; 83550; 85025

== ENCOUNTER 2022-08-07 10:01 | Emergency (ER) | payer MEDICAID, SELFPAY ==
[2022-08-07 10:02] VITALS: BP 123/69; PULSE 96; RESP 20; TEMP 36.5; O2SAT 100; BMI 26.1
[2022-08-07 10:28] VITALS: BMI 26.1
[2022-08-07 10:32] LABS: Coronavirus 19, PCR Not Detected (NotDetected); Influenza B, PCR Not Detected (NotDetected)
[2022-08-07 11:00] VITALS: BP 131/73; PULSE 96; RESP 20; O2SAT 98
--- NOTE | 2022-08-07 11:05 | HMH.EDGENADL ---
Discharge Plan Disposition Patient Disposition: Home, Self-Care Condition: Good Prescriptions Prescriptions: New ciprofloxacin HCl [Cipro] 500 mg tablet 500 mg PO BID Qty: 20 0RF oseltamivir [Tamiflu] 75 mg capsule 75 mg PO BID Qty: 10 0RF No Action clotrimazole-betamethasone [Lotrisone] 1-0.05 % cream 1 applic TP BID fluticasone propionate [Flonase Allergy Relief] 50 mcg/actuation spray,suspension 50 mcg NS DAILY omeprazole 20 mg capsule,delayed release(DR/EC) 20 mg PO DAILY baclofen 20 mg tablet 20 mg PO Q8H cyanocobalamin (vitamin B-12) 1,000 mcg/mL solution 1,000 mcg IM QMONTH estradiol [Estrace] 0.01 % (0.1 mg/gram) cream 1 g VG QWEEK Ventolin HFA 90 mcg/actuation HFA aerosol inhaler 2 puff IH QID Linzess 72 mcg capsule 72 mcg PO DAILY alendronate 10 mg tablet 1 mg PO DAILY cholecalciferol (vitamin D3) 50 mcg (2,000 unit) tablet 1,000 unit PO DAILY diclofenac sodium 1 % gel 4 g TP QID PRN (Reason: pain ) 30 Days Qty: 100 2RF Rx Instructions: apply to single, ankle, foot; for foot includes sole/toes/top of foot levetiracetam 500 mg tablet 500 mg PO BID Label Comments: TAKE 1 TABLET BY MOUTH TWICE DAILY ergocalciferol (vitamin D2) 1,250 mcg (50,000 unit) capsule 50,000 unit PO QWEEK Qty: 4 Label Comments: TAKE 1 CAPSULE BY MOUTH ONCE A WEEK levothyroxine 125 mcg tablet 150 mcg PO DAILY Qty: 90 Label Comments: TAKE 1 TABLET BY MOUTH ONCE DAILY mupirocin 2 % ointment 1 applic TP TID Qty: 15 0RF urea 40 % cream 1 applic TP BID Qty: 60 3RF Rx Instructions: Apply to dry affected areas up to twice daily amikacin 1,000 mg/4 mL solution 250 mg IM .ASDIRECTED Label Comments: IRRIGATE WITH 30 ML DIRECTED; SEE ADMINISTRATION INSTRUCTIONS lorazepam 0.5 mg tablet 0.5 mg PO BID PRN (Reason: Anxiety) Qty: 60 2RF sertraline 100 mg tablet 200 mg PO DAILY Qty: 60 2RF ibuprofen 600 MG tablet 600 mg PO Q6HP PRN (Reason: Mild Pain) Qty: 30 0RF ondansetron 4 MG tablet,disintegrating 4 mg PO TID PRN (Reason: Nausea) 4 Days Qty: 15 0RF hydrocodone-acetaminophen 1 EACH tablet 1 tab PO Q4H PRN (Reason: Moderate To Severe Pain) Qty: 7 0RF nitrofurantoin monohyd/m-cryst 100 MG capsule 100 mg PO BID methenamine hippurate 1 GM tablet 1 gm PO TID potassium chloride 20 MEQ tablet 20 meq PO DAILY tizanidine 2 MG tablet 2 mg PO BID prednisone 20 MG tablet 20 mg PO BID gabapentin 100 MG capsule 100 mg PO BID Qty: 60 0RF Referrals Follow up/Referrals: Luis Henderson MD [Primary Care Provider] - See instructions Activity Restrictions/Add. Instructions Additional Instructions/Restrictions: Tamiflu was prescribed for influenza. Cipro for UTI. ADDITIONAL INSTRUCTIONS FOR INFLUENZA (FLU): Rest, drink plenty of fluids. Tylenol or Ibuprofen for fever and/or aches and pains. Monitor your symptoms. IF YOU HAVE AN EMERGENCY WARNING SIGN (INCLUDING TROUBLE BREATHING), SEEK EMERGENCY MEDICAL CARE IMMEDIATELY. Influenza Isolation: People with influenza should isolate for 5 days starting at the onset of symptoms. Then if they are asymptomatic (no symptoms) or their symptoms are resolving (without fever for 24 hours), you may end isolation. What to do: Stay in a separate room from other household members, if possible. Use a separate bathroom, if possible. Avoid contact with other members of the household and pets. Don?t share personal household items, like cups, towels, and utensils. Wear a mask when around other people if able. Additional instructions for URINARY TRACT INFECTION: Take antibiotic as prescribed. See your physician in 2-3 days for follow up and culture results. Return immediately if you have an uncontrollable fever greater than 102 degrees, severe back or abdominal pain, inabilit
[2022-08-07 11:30] VITALS: BP 118/75; PULSE 90; RESP 17; O2SAT 96
[2022-08-07 11:32] LABS: Influenza A, PCR Detected (NotDetected)
[2022-08-07 11:58] LABS: Microscopic, Urine URINE MICROSCOPIC (MICROSCOPIC)
[2022-08-07 12:04] LABS: Appearance,Urine CLOUDY (Clear); Blood, Urine 1+ (Negative); Color,Urine YELLOW (Yellow); Glucose,Urine (UA) Negative (Negative); Ketones,Urine TRACE (Negative); Leukocyte Esterase,Urine 2+ (Negative); Nitrate,Urine POSITIVE (Negative); PH,Urine 5.5 (5.0-8.5); Protein,Urine TRACE (Negative); Specific Gravity, Urine >= 1.030 (1.005-1.030); Urobilinogen,Urine 0.2 EU/dl (0.2)
[2022-08-07 12:08] LABS: Bilirubin,Urine 1+ (Negative)
[2022-08-07 12:09] LABS: Bacteria,Urine 2+ /lpf; Mucus,Urine Trace /lpf; RBC,Urine Occasional #/hpf (0-3)
[2022-08-07 12:34] VITALS: BP 114/68; PULSE 91; RESP 18; O2SAT 95
[2022-08-07 12:41] VITALS: BP 117/74; PULSE 64; RESP 20; TEMP 36.5; O2SAT 98
== END 2022-08-07 12:42 | disposition home or self-care (01) ==
PROVIDERS: Emergency Provider Emergency Medicine; PCP Internal Medicine Adolescent Medicine
DX: J10.1 Influenza due to other identified influenza virus with other respiratory manifestations (principal); N39.0 Urinary tract infection, site not specified; Z79.890 Hormone replacement therapy; Z79.899 Other long term (current) drug therapy; Z88.2 Allergy status to sulfonamides; Z88.5 Allergy status to narcotic agent; F41.9 Anxiety disorder, unspecified; F32.A Depression, unspecified; K21.9 Gastro-esophageal reflux disease without esophagitis; I10 Essential (primary) hypertension; M81.0 Age-related osteoporosis without current pathological fracture
CPT/HCPCS: 81001; 87086; 87088; 87186; 99283; C9803; U0003; U0005

== ENCOUNTER → 2022-08-08 14:07 | Outpatient (POV) | payer MEDICAID, SELFPAY ==
[2022-08-08 14:24] VITALS: BP 126/69; PULSE 105; RESP 18; O2SAT 92; BMI 26.1
--- NOTE | 2022-08-08 14:43 | EXP.PAIN.SOA ---
[facility] Pain Management SOAP Note Subjective:: Patient is a pleasant 62-year-old female who presents today for follow-up. We are currently treating the patient for degenerative disc disease of lumbar spine with lumbar radiculopathy symptoms, greater trochanteric bursitis, osteoarthritis of the left knee, sacroiliitis. Today the patient rates her pain a 9 out of 10. Patient states it is primarily in her hips and describes it as a aching, throbbing sensation that is worse with increased activity. Patient denies any new trauma or injury. Patient denies any change to location or type of pain she experiences. Patient previously had a left knee intra-articular injection on 04/19/2022 that did provide 50 to 60% improvement lasting 2 months. Patient does state that she is back to her baseline with her pain in her knee today. Patient is asking whether or not if we can provide a knee brace for additional support and stability. Patient is currently prescribed compounding cream that she states provides significant improvement however she is out of this refills and needs another prescription. Patient is also prescribed gabapentin 100 mg twice a day. Patient denies any side effects with this medication. She states this medication does help her pain symptoms. She is requesting a refill at today's visit. Her Claus is [phone]. It is been reviewed and appropriate. Review of Systems: General: No recent weight changes, no fever, no sleep disturbances Respiratory: No cough, no shortness of air, no recurring pulmonary infections Cardiovascular/peripheral vascular: No chest pain, no palpitations, no edema, no shortness of breath Gastrointestinal: No new onset incontinence, normal bowel movements reported Genitourinary: No new onset incontinence Musculoskeletal: Bilateral hip pain, left knee pain Psychiatric: [Normal mood/affect] Neurological: [Denies weakness in extremities], [denies balance issues]. Objective:: Physical Exam: General: Alert and oriented x3, no acute distress, pleasant and cooperative Lungs: Respirations even and unlabored, symmetrical chest expansion Eyes: PERRL Musculoskeletal: Flexion and extension of lumbar [spine] somewhat guarded secondary to pain, [antalgic gait noted]. Extreme point tenderness along bilateral greater trochanteric bursa's Neurological: Speech clear, no gross sensory deficit Assessment:: Degenerative disc disease of lumbar spine with lumbar radiculopathy symptoms, greater trochanteric bursitis, osteoarthritis of left knee, sacroiliitis Plan:: Patient is experiencing significant pain in her bilateral hips during today's visit. Patient has limited range of motion of her lumbar spine and extreme point tenderness along bilateral greater trochanteric bursa's. Patient has had previous bursa injections that provided significant improvement of her symptoms. I have discussed with the patient that she may benefit from repeat bursa injections. Risk and benefits were discussed with the patient. She would like to proceed forward with this plan of care. I will also send in a new order for her compounding cream and refill her gabapentin 100 mg twice daily and provide a 1 month supply of this medication. We will schedule the patient for bilateral greater trochanteric bursa injections. Patient has been instructed to contact the clinic with any concerns before the next appointment. Dr. Robledo has reviewed this note and agrees with this plan of care. This note was dictated using voice recognition software and make contain errors or omissions. [facility] Disclaimer: The information contained in this section may have been updated after the patient was seen, as this information can be updated by other users. Medical History (Updated 08/07/22 @ 12:25 by Tom Lee MD) Anxiety Depression Generalized anxiety disorder GERD (gastroesophageal reflux disease) History of hypertension Hyperlipidemia New onset seizure Osteoporosis Surgical Hist
== END | disposition home or self-care (01) ==
PROVIDERS: PCP Internal Medicine Adolescent Medicine; Visit Provider Nurse Practitioner Family
DX: M51.16 Intervertebral disc disorders with radiculopathy, lumbar region (principal); M46.1 Sacroiliitis, not elsewhere classified; M17.12 Unilateral primary osteoarthritis, left knee; M70.60 Trochanteric bursitis, unspecified hip; Z79.899 Other long term (current) drug therapy
CPT/HCPCS: 99212; G0463

== ENCOUNTER 2022-08-20 11:48 | Day surgery (SDC) | payer MEDICAID, SELFPAY ==
[2022-08-20 12:01] VITALS: BP 129/85; PULSE 82; RESP 18; TEMP 36.4; O2SAT 98; BMI 25.9
[2022-08-20 12:06] VITALS: BP 133/71; PULSE 86; RESP 18; TEMP 36.4; O2SAT 99
--- NOTE | 2022-08-20 12:18 | P.PCN_ITS ---
Procedure Date: 08/20/22 Time: 12:00 Anesthesiologist:: Francisco Javier Mcdonald CRNA Complications:: None Pre-procedure Diagnosis:: Trochanteric bursitis bilaterally Post-procedure Diagnosis:: Same. Indications for Procedure:: Patient is a very pleasant 62-year-old female that we have have been treating for quite some time for chronic low back pain as well as bilateral hip and leg radicular symptoms. Today she reports for bilateral trochanteric bursa injections. She has had this before with significant improvement. Procedure Details:: Procedure: Bilateral trochanteric bursa joint injections under fluoroscopy Informed consent was obtained and the risks and benefits of the procedure were explained to the patient.~ The patient was taken to the procedure room and noninvasive monitors were placed including a noninvasive blood pressure cuff and pulse oximeter.~ The patient was placed prone on the procedure table. Both hips were cleansed using Betadine as a cleansing solution. C-arm fluoroscopy was used to view the right trochanteric bursa joint.~ The skin and subcutaneous tissues were anesthetized using lidocaine 1.5% and a 25-gauge needle.~ After this, a 22- gauge spinal needle was inserted under fluoroscopic guidance into the inferior aspect of the right trochanteric bursa.~ Omnipaque dye was injected and good spread was seen throughout the joint.~ After this, approximately 5 mL of bupivacaine, 0.25% and Depo-Medrol, 40 mg was incrementally injected into the right sacroiliac joint. We then moved to the left trochanteric bursa joint.~ The skin and subcutaneous tissues were anesthetized using lidocaine 1.5% and a 25-gauge needle.~ After this, a 22-gauge spinal needle was inserted under fluoroscopic guidance into the inferior aspect of the left trochanteric bursa joint.~ Omnipaque dye was injected and good spread was seen throughout the joint. After this, approximately 5 mL of bupivacaine, 0.25% and Depo-Medrol, 40 mg was incrementally injected into the left sacroiliac joint.~ The patient tolerated the procedure well with no complications. The patient was observed in the Pain Clinic and then was discharged home neurologically intact. Plan and Disposition:: Patient was discharged without incident.
== END 2022-08-20 12:08 | disposition home or self-care (01) ==
LOC: SC.PAINP 11:49
PROVIDERS: PCP Internal Medicine Adolescent Medicine; Visit Provider Nurse Anesthetist, Certified Registered
DX: M70.61 Trochanteric bursitis, right hip (principal); M70.62 Trochanteric bursitis, left hip
CPT/HCPCS: 20610; J1040

== ENCOUNTER 2022-08-26 10:13 | Emergency (ER) | payer MEDICAID, SELFPAY ==
--- NOTE | 2022-08-26 10:33 | PC.NURSE ---
pt ambulatory to restroom without complications
--- NOTE | 2022-08-26 10:48 | CT_ITS ---
FINAL REPORT CLINICAL HISTORY: fall, head trauma. [facility] periorbital bruising FINDINGS: Axial images of the head were obtained without contrast. Coronal reformatted images were also obtained. This study was performed with techniques to keep radiation doses as low as reasonably achievable (ALARA). Individualized dose reduction techniques using automated exposure control or adjustment of mA and/or kV according to the patient's size were employed. There is motion on some of the images which decreases sensitivity of the exam. There is generalized age-appropriate atrophy. Periventricular low-attenuation areas are seen consistent with moderate chronic ischemic changes. There is no evidence of intracranial hemorrhage or mass. There is no evidence of acute infarct. There is no evidence of shift of the midline structures. No skull abnormality is seen on the bone window images. IMPRESSION: Atrophy and moderate periventricular chronic ischemic changes. No acute intracranial abnormality identified. Reviewed, Interpreted and Dictated by Rick Villagomez III, MD Transcribed by Pily Delgadillo Authenticated and [facility]
[2022-08-26 10:50] VITALS: BP 142/99; BP 157/110; PULSE 111; RESP 18; TEMP 36.7; O2SAT 96; BMI 25.2
--- NOTE | 2022-08-26 10:51 | HMH.EDGENADL ---
Discharge Plan Disposition Patient Disposition: Home, Self-Care Condition: Good Prescriptions Prescriptions: New nitrofurantoin monohyd/m-cryst 100 mg capsule 100 mg PO BID 10 Days Qty: 20 0RF Rx Instructions: must administer with a meal/food No Action clotrimazole-betamethasone [Lotrisone] 1-0.05 % cream 1 applic TP BID fluticasone propionate [Flonase Allergy Relief] 50 mcg/actuation spray,suspension 50 mcg NS DAILY omeprazole 20 mg capsule,delayed release(DR/EC) 20 mg PO DAILY cyanocobalamin (vitamin B-12) 1,000 mcg/mL solution 1,000 mcg IM QMONTH Ventolin HFA 90 mcg/actuation HFA aerosol inhaler 2 puff IH QID Linzess 72 mcg capsule 72 mcg PO DAILY alendronate 10 mg tablet 1 mg PO DAILY cholecalciferol (vitamin D3) 50 mcg (2,000 unit) tablet 1,000 unit PO DAILY diclofenac sodium 1 % gel 4 g TP QID PRN (Reason: pain ) 30 Days Qty: 100 2RF Rx Instructions: apply to single, ankle, foot; for foot includes sole/toes/top of foot levetiracetam 500 mg tablet 500 mg PO BID Label Comments: TAKE 1 TABLET BY MOUTH TWICE DAILY ergocalciferol (vitamin D2) 1,250 mcg (50,000 unit) capsule 50,000 unit PO QWEEK Qty: 4 Label Comments: TAKE 1 CAPSULE BY MOUTH ONCE A WEEK levothyroxine 125 mcg tablet 150 mcg PO DAILY Qty: 90 Label Comments: TAKE 1 TABLET BY MOUTH ONCE DAILY urea 40 % cream 1 applic TP BID Qty: 60 3RF Rx Instructions: Apply to dry affected areas up to twice daily amikacin 1,000 mg/4 mL solution 250 mg IM .ASDIRECTED Label Comments: IRRIGATE WITH 30 ML DIRECTED; SEE ADMINISTRATION INSTRUCTIONS lorazepam 0.5 mg tablet 0.5 mg PO BID PRN (Reason: Anxiety) Qty: 60 2RF sertraline 100 mg tablet 200 mg PO DAILY Qty: 60 2RF ibuprofen 600 MG tablet 600 mg PO Q6HP PRN (Reason: Mild Pain) Qty: 30 0RF hydrocodone-acetaminophen 1 EACH tablet 1 tab PO Q4H PRN (Reason: Moderate To Severe Pain) Qty: 7 0RF nitrofurantoin monohyd/m-cryst 100 MG capsule 100 mg PO BID methenamine hippurate 1 GM tablet 1 gm PO TID potassium chloride 20 MEQ tablet 20 meq PO DAILY tizanidine 2 MG tablet 2 mg PO BID ciprofloxacin HCl [Cipro] 500 mg tablet 500 mg PO BID gabapentin 100 MG capsule 100 mg PO BID Qty: 60 0RF Referrals Follow up/Referrals: Luis Henderson MD [Primary Care Provider] - See instructions Activity Restrictions/Add. Instructions Additional Instructions/Restrictions: Follow-up with your family doctor within 72 hours to establish care for this visit to the emergency department and ensure improvement of symptoms. Take Macrobid as prescribed for 10 days twice daily. If you have any other concerning signs or symptoms, return to the ED or primary care provider for further evaluation. Clinical Impressions Clinical Impression: UTI (urinary tract infection) Discharge ED Provider: Trevon Clark General Adult HPI General Chief complaint: PAIN Stated complaint: Left Ear pain,Headache Time Seen by Provider: 08/26/22 10:34 Mode of Arrival: Ambulatory Limitations: No Limitations History of Present Illness HPI narrative: This is a 62-year-old female with history of cerebral palsy with spastic bladder needing catheterization for urinary voiding presenting with concern for UTI. Patient states that my belly feels funny, starting yesterday, 08/25. She went to her primary care doctor who noticed that she had a large bruise overlying her left eye and recommended she come to the ED for further evaluation. Patient denies headache, vision changes, nausea, vomiting, left or right-sided deficits from her normal, confusion, history of known trauma, anticoagulation use, dysuria, hematuria, fevers, chills, flank pain, current abdominal pain, chest pain, shortness of breath, or any other concerning history. Related Data Home Medications Med
[2022-08-26 10:52] VITALS: BMI 25.2
--- NOTE | 2022-08-26 10:55 | PC.NURSE ---
PT GOING TO CT
--- NOTE | 2022-08-26 11:05 | PC.NURSE ---
BACK FROM CT
[2022-08-26 11:15] VITALS: BP 139/80; PULSE 94; O2SAT 96
[2022-08-26 11:30] VITALS: BP 131/65; PULSE 93; O2SAT 95
[2022-08-26 12:01] VITALS: BP 129/76; PULSE 94; O2SAT 95
[2022-08-26 12:31] VITALS: BP 143/91; PULSE 95; O2SAT 95
[2022-08-26 14:16] VITALS: BP 130/78; PULSE 89; RESP 18; TEMP 36.9; O2SAT 94
== END 2022-08-26 14:18 | disposition home or self-care (01) ==
LOC: UTC 10:14 → ER 10:16
PROVIDERS: Emergency Provider Emergency Medicine; PCP Internal Medicine Adolescent Medicine
DX: R30.0 Dysuria (principal); S00.10XA Contusion of unspecified eyelid and periocular area, initial encounter; H92.02 Otalgia, left ear; R51.9 Headache, unspecified; I10 Essential (primary) hypertension; E78.5 Hyperlipidemia, unspecified; M81.0 Age-related osteoporosis without current pathological fracture; N32.89 Other specified disorders of bladder; G80.9 Cerebral palsy, unspecified; F32.A Depression, unspecified; F41.1 Generalized anxiety disorder; Z79.1 Long term (current) use of non-steroidal anti-inflammatories (NSAID); Z79.51 Long term (current) use of inhaled steroids; Z79.899 Other long term (current) drug therapy; Z88.2 Allergy status to sulfonamides; Z88.5 Allergy status to narcotic agent; Z88.8 Allergy status to other drugs, medicaments and biological substances
CPT/HCPCS: 70450; 87086; 87088; 87186; 99285

== ENCOUNTER → 2022-09-11 13:39 | Outpatient (POV) | payer MEDICAID, SELFPAY ==
[2022-09-11 15:29] VITALS: BP 97/57; PULSE 96; RESP 18; O2SAT 97; BMI 26.1
--- NOTE | 2022-09-11 16:10 | EXP.PAIN.SOA ---
[facility] Pain Management SOAP Note Subjective:: Patient is a pleasant 62-year-old female who presents today for follow-up of bilateral trochanteric bursa injections on 08/20/2022. We are currently treating the patient for degenerative disc disease of lumbar spine with lumbar radiculopathy symptoms, greater trochanteric bursitis, osteoarthritis of left knee, sacroiliitis. Today the patient states that she did have significant relief following this injection and feels like it is still currently providing additional relief. Patient does rate her pain a 7 out of 10 today. Patient states she feels like she does have a UTI and states that she has been to the ER in the past twice for this. Patient states that she is planning on calling Dr. Henderson's office to schedule an appointment. Patient states that she does have a lot of issues with increased anxiety and is prescribed lorazepam however recently it has not been working as effectively. Patient states she has been very emotional lately that her was recently put in custodial for 30 days and that he is someone who cares for her and helps her self cath. Patient does have a history of mouth cancer and cerebral palsy. Patient states due to her worsening stress she has recently had more seizures. Patient states that she has woken up with bruising to the side of her face and is unsure if she had a seizure or not. Patient does state that she occasionally has trouble with her short-term memory. Patient states she is scheduled to see her neurology doctor at on September 19. Patient states that she was prescribed a generic Keppra for her seizures and that feels like this may not be working as well. Patient is currently managed with gabapentin 100 mg twice a day and compounding cream. Patient denies any side effects from these medications. She states these medications do help with some of her pain symptoms. She is requesting a refill of her gabapentin during today's visit. Patient does use a knee brace for additional support and stability. Patient has had multiple injections in the past that provided significant improvement of her symptoms. Her Claus is [phone]. Its been reviewed and appropriate. Review of Systems: General: No recent weight changes, no fever, no sleep disturbances Respiratory: No cough, no shortness of air, no recurring pulmonary infections Cardiovascular/peripheral vascular: No chest pain, no palpitations, no edema, no shortness of breath Gastrointestinal: No new onset incontinence, normal bowel movements reported Genitourinary: No new onset incontinence Musculoskeletal: Low back pain, left knee pain Psychiatric: [Normal mood/affect] Neurological: [Denies weakness in extremities], [denies balance issues] Objective:: Physical Exam: General: Alert and oriented x3, no acute distress, pleasant and cooperative Lungs: Respirations even and unlabored, symmetrical chest expansion Eyes: PERRL Musculoskeletal: Flexion and extension of lumbar [spine] somewhat guarded secondary to pain, [antalgic gait noted] Neurological: Speech clear, no gross sensory deficit Assessment:: Degenerative disc disease of lumbar spine with lumbar radiculopathy symptoms, greater trochanteric bursitis, osteoarthritis of left knee, sacroiliitis Plan:: Patient has had improvement of her symptoms following her last injection however she states she is currently having urinary pains that she believes is related to a UTI. I have counseled the patient to make sure to contact her primary care doctor to get in for a UA as soon as possible. I will refill the patient's gabapentin 100 mg twice a day and provide a 1 month supply of this medication. Patient will return to clinic in 1 month for reevaluation of symptoms and follow-up. Patient has been instructed to contact the clinic with any concerns before the next appointment. Dr. Robledo has reviewed this note and agrees with this plan of care. This note was dictated using voice recognition softwar
== END ==
PROVIDERS: PCP Internal Medicine Adolescent Medicine; Visit Provider Nurse Practitioner Family
DX: M51.16 Intervertebral disc disorders with radiculopathy, lumbar region (principal); M46.1 Sacroiliitis, not elsewhere classified; M70.60 Trochanteric bursitis, unspecified hip; M17.12 Unilateral primary osteoarthritis, left knee
CPT/HCPCS: 99212; G0463

== ENCOUNTER → 2022-10-04 13:17 | Outpatient (CLI) | payer MEDICAID, SELFPAY ==
[2022-10-04 13:41] LABS: Microscopic, Urine URINE MICROSCOPIC (MICROSCOPIC)
[2022-10-04 15:22] LABS: Appearance,Urine CLEAR (Clear); Bilirubin,Urine Negative (Negative); Blood, Urine TRACE-I (Negative); Color,Urine YELLOW (Yellow); Glucose,Urine (UA) Negative (Negative); Ketones,Urine Negative (Negative); Leukocyte Esterase,Urine 2+ (Negative); Nitrate,Urine POSITIVE (Negative); Protein,Urine TRACE (Negative); Urobilinogen,Urine 0.2 EU/dl (0.2)
[2022-10-04 15:51] LABS: Bacteria,Urine 1+ /lpf; RBC,Urine Occasional #/hpf (0-3); Yeast,Urine 4+ /lpf
== END ==
PROVIDERS: PCP Internal Medicine Adolescent Medicine; Visit Provider Nurse Practitioner Family
DX: N39.0 Urinary tract infection, site not specified (principal); B96.29 Other Escherichia coli [E. coli] as the cause of diseases classified elsewhere
CPT/HCPCS: 81001; 87086; 87088; 87186

== ENCOUNTER 2022-10-09 13:07 | Outpatient (CLI) | payer MEDICAID, SELFPAY ==
[2022-10-09 13:40] VITALS: BP 117/73; PULSE 98; RESP 18; TEMP 36.6; O2SAT 97
== END 2022-10-09 14:00 | disposition home or self-care (01) ==
LOC: INF 13:08
PROVIDERS: PCP Internal Medicine Adolescent Medicine; Visit Provider Internal Medicine Adolescent Medicine
DX: N39.0 Urinary tract infection, site not specified (principal)
CPT/HCPCS: 96372; J1335

== ENCOUNTER 2022-10-10 13:33 | Outpatient (CLI) | payer MEDICAID, SELFPAY ==
[2022-10-10 14:17] VITALS: BP 102/76; PULSE 76; RESP 18; O2SAT 99
== END 2022-10-10 14:20 | disposition home or self-care (01) ==
LOC: INF 13:34
PROVIDERS: PCP Internal Medicine Adolescent Medicine; Visit Provider Internal Medicine Adolescent Medicine
DX: N39.0 Urinary tract infection, site not specified (principal)
CPT/HCPCS: 96372; J1335

== ENCOUNTER 2022-10-11 13:16 | Outpatient (CLI) | payer MEDICAID, SELFPAY ==
[2022-10-11 13:42] VITALS: BP 145/73; PULSE 91; RESP 18; TEMP 36.6; O2SAT 99
== END 2022-10-11 13:42 | disposition home or self-care (01) ==
PROVIDERS: PCP Internal Medicine Adolescent Medicine; Visit Provider Nurse Practitioner Family
DX: N39.0 Urinary tract infection, site not specified (principal)
CPT/HCPCS: 96372; J1335

== ENCOUNTER → 2022-10-12 13:18 | Outpatient (CLI) | payer MEDICAID, SELFPAY | PROVIDERS: PCP Internal Medicine Adolescent Medicine | DX: N39.0 Urinary tract infection, site not specified (principal); B96.29 Other Escherichia coli [E. coli] as the cause of diseases classified elsewhere | CPT/HCPCS: 96372; G0463; J1335 ==

== ENCOUNTER → 2022-10-13 13:42 | Outpatient (CLI) | payer MEDICAID, SELFPAY | PROVIDERS: PCP Internal Medicine Adolescent Medicine | DX: N39.0 Urinary tract infection, site not specified (principal) | CPT/HCPCS: 96372; G0463; J1335 ==

== ENCOUNTER → 2022-10-21 13:51 | Outpatient (POV) | payer MEDICAID, SELFPAY ==
--- NOTE | 2022-10-21 14:06 | EXP.PAIN.SOA ---
[facility] Pain Management SOAP Note Subjective:: Patient is a pleasant 62-year-old female who presents today for medication refill and follow-up. We are currently treating the patient for degenerative disc disease of lumbar spine with lumbar radiculopathy symptoms, greater trochanteric bursitis, osteoarthritis of the left knee, sacroiliitis. Today she rates her pain a 7 out of 10. Patient denies any new trauma or injury. Patient denies any change location or type of pain she experiences. At our last visit she did have a lot going on including a UTI that she had been seen in the ER for twice. Patient states that it was E. coli and that she did have to come in for injections and that she is scheduled to see a specialist in December regarding this. Patient states that she has not had any other seizures from the last time we talked and that she is doing better on that. Patient states she does continue to have daily aches and pains however at this time she is not requiring any additional injective therapy. Patient continues to have some trouble with her short-term memory and that she is being seen by a neurology doctor at . Patient is currently managed with compounding cream and gabapentin 100 mg twice a day. Patient denies any side effects from these medications. She states these do help. She is requesting a refill on her gabapentin today. Patient continues to use a knee brace for additional support and stability. Her Claus is [phone]. Its been reviewed and appropriate. Review of Systems: General: No recent weight changes, no fever, no sleep disturbances Respiratory: No cough, no shortness of air, no recurring pulmonary infections Cardiovascular/peripheral vascular: No chest pain, no palpitations, no edema, no shortness of breath Gastrointestinal: No new onset incontinence, normal bowel movements reported Genitourinary: No new onset incontinence Musculoskeletal: Low back pain Psychiatric: [Normal mood/affect] Neurological: [Denies weakness in extremities], [denies balance issues] Objective:: Physical Exam: General: Alert and oriented x3, no acute distress, pleasant and cooperative Lungs: Respirations even and unlabored, symmetrical chest expansion Eyes: PERRL Musculoskeletal: Flexion and extension of lumbar [spine] somewhat guarded secondary to pain, [antalgic gait noted] Neurological: Speech clear, no gross sensory deficit Assessment:: Degenerative disc disease of lumbar spine with lumbar radiculopathy symptoms, greater trochanteric bursitis, osteoarthritis left knee, sacroiliitis Plan:: Patient continues to experience significant pain in her low back and other joints however she is doing well with her current medication regimen. I will refill her gabapentin 100 mg twice a day and provide a 1 month supply of this medication. Patient will return to clinic in 1 month for reevaluation of symptoms, medication refill and follow-up. Patient has been instructed to contact the clinic with any concerns before the next appointment. Dr. Robledo has reviewed this note and agrees with this plan of care. This note was dictated using voice recognition software and make contain errors or omissions. [facility] Disclaimer: The information contained in this section may have been updated after the patient was seen, as this information can be updated by other users. Medical History Anxiety Depression Generalized anxiety disorder GERD (gastroesophageal reflux disease) History of hypertension Hyperlipidemia New onset seizure Osteoporosis Surgical History H/O kyphoplasty H/O thyroidectomy H/O tubal ligation Hx of appendectomy Family History Other No significant family history Social History Smoking Status: Never smoker second hand exp
[2022-10-21 14:30] VITALS: BP 125/69; PULSE 82; RESP 18; O2SAT 98; BMI 24.5
== END | disposition home or self-care (01) ==
PROVIDERS: PCP Internal Medicine Adolescent Medicine; Visit Provider Nurse Practitioner Family
DX: M51.16 Intervertebral disc disorders with radiculopathy, lumbar region (principal); M46.1 Sacroiliitis, not elsewhere classified; M70.60 Trochanteric bursitis, unspecified hip; M17.12 Unilateral primary osteoarthritis, left knee
CPT/HCPCS: 99212; G0463

== ENCOUNTER 2022-11-15 18:31 | Emergency (ER) | payer MEDICAID, SELFPAY ==
[2022-11-15] VITALS (10 sets, daily range): BP systolic 126–176; BP diastolic 78–105; PULSE 81–121; RESP 15–35; TEMP 36.3–36.6; O2SAT 94–98; BMI 23.6
--- NOTE | 2022-11-15 19:06 | XR_ITS ---
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 ; Additional info: Seizure TECHNIQUE: Imaging protocol: Radiologic exam of the chest. Views: 1 view. COMPARISON: CR XR CHEST PORTABLE 05/05/2020 3:58 PM FINDINGS: Lungs: Unremarkable. No consolidation. Pleural spaces: Unremarkable. No pleural effusion. No pneumothorax. Heart/Mediastinum: Stable heart size. Bones/joints: Stable bones. IMPRESSION: No acute findings.
[2022-11-15 19:24] LABS: Basophils # 0.1 K/mm3 (0-0.2); Eosinophils # 0.1 K/mm3 (0.0-0.4); Eosinophils % 2.1 % (0.1-12.0); Hemoglobin 12.2 g/dL (12.2-16.2); Lymphocytes # 0.7 K/mm3 (0.7-4.5); Lymphocytes % 10.6 % (10-50); Mean Corpuscular Hemoglobin 26.3 pg (27.0-31.2); Mean Corpuscular Volume 82.2 fl (81-99); Mean Platelet Volume 8.4 fl (7.4-10.4); Monocytes # 0.2 K/mm3 (0.1-1.0); Monocytes % 3.2 % (1.7-9.3); Neutrophils # 5.4 K/mm3 (1.8-7.8); Neutrophils % 83.1 % (37.0-80.0); Platelet Count 181 K/mm3 (142-424); Red Blood Count 4.62 M/mm3 (4.20-5.40); Red Cell Distribution Width 16.1 % (11.5-17.5); White Blood Count 6.5 K/mm3 (4.8-10.8)
[2022-11-15 19:26] LABS: Chloride 104 mmol/L (98-107); Potassium 3.8 mmoL/L (3.5-5.1); Sodium 136 mmol/L (136-145)
[2022-11-15 19:28] LABS: Alanine Aminotransferase 16 U/L (12-78); Aspartate Amino Transferase 25 U/L (14-36); Blood Urea Nitrogen 10 mg/dl (7-17); Creatinine Clearance Estimated 59 mL/min (50-200); Estimated Glomerular Filt Rate 101 ml/min (>60); GFR (African American) 122 ML/MIN (>60)
[2022-11-15 19:29] LABS: Albumin Level 4.1 g/dl (3.5-5.0); Albumin/Globulin Ratio 1.4 (1.1-1.8); Alkaline Phosphatase 84 U/L (38-126); Anion Gap 11.8 mEq/L (5-15); Bilirubin,Total 0.5 mg/dl (0.2-1.3); Calcium 8.3 mg/dl (8.4-10.2); Carbon Dioxide 24 mmol/L (22.0-30.0); Globulin 2.9 g/dL (1.3-3.2); Glucose 147 mg/dl (74-100)
--- NOTE | 2022-11-15 20:41 | CT_ITS ---
PROCEDURE INFORMATION: Exam: CT Head Without Contrast Exam date and time: 11/15/2022 8:54 PM Age: 62 years old Clinical indication: Pain; Headache TECHNIQUE: Imaging protocol: Computed tomography of the head without contrast. Radiation optimization: All CT scans at this facility use at least one of these dose optimization techniques: automated exposure control; mA and/or kV adjustment per patient size (includes targeted exams where dose is matched to clinical indication); or iterative reconstruction. REPORTING DATA: Count of CT and Cardiac NM exams in prior 12 months: This patient has received [address] and 0 known cardiac nuclear medicine studies in the 12 months prior to the current study. COMPARISON: CT HEAD/BRAIN WO CON 08/26/2022 10:58 AM FINDINGS: Brain: No acute infarct. No hemorrhage. Stable involutional changes of the brain. No mass effect. Cerebral ventricles: No ventriculomegaly. Paranasal sinuses: Visualized sinuses are unremarkable. No fluid levels. Mastoid air cells: Visualized mastoid air cells are well aerated. Bones/joints: Unremarkable. No acute fracture. Soft tissues: Unremarkable. Other findings: Study motion degraded. IMPRESSION: No acute intracranial abnormality.
--- NOTE | 2022-11-15 20:45 | PC.NURSE ---
Dr. Sutton is s/w Dr. Santiago
--- NOTE | 2022-11-15 21:03 | ECG_ITS ---
APPROVED REPORT Exam: Resting ECG HR:101 bpm ECG Measurements Heart Rate 101 AXES NM 137 P 58 QRSd 92 QRS 27 QT 331 T 61 QTc 389 Conclusion SINUS TACHYCARDIA WITH OCCASIONAL SUPRAVENTRICULAR PREMATURE COMPLEXES INDETERMINATE AXIS INCOMPLETE RIGHT BUNDLE BRANCH BLOCK [90+ ms QRS DURATION, TERMINAL R IN V1/V2, 40+ ms S IN I/aVL/V4/V5/V6] MINIMAL ST DEPRESSION [0.025+ mV ST DEPRESSION] ABNORMAL RHYTHM ECG UNCONFIRMED REPORT Electronically signed by : Luis Henderson MD 11/18/2022 19:29:27
[2022-11-15 22:20] LABS: Microscopic, Urine URINE MICROSCOPIC (MICROSCOPIC)
[2022-11-15 22:30] LABS: Appearance,Urine CLEAR (Clear); Bilirubin,Urine Negative (Negative); Blood, Urine TRACE-I (Negative); Color,Urine YELLOW (Yellow); Glucose,Urine (UA) Negative (Negative); Ketones,Urine Negative (Negative); Leukocyte Esterase,Urine Negative (Negative); Nitrate,Urine POSITIVE (Negative); PH,Urine 6.5 (5.0-8.5); Protein,Urine Negative (Negative); Urobilinogen,Urine 0.2 EU/dl (0.2)
[2022-11-15 22:41] LABS: Barbiturates Screen,Urine Negative ng/ml (<200)
[2022-11-15 22:42] LABS: Benzodiazepines Screen,Urine Negative ng/ml (<200); WBC,Urine Occasional #/hpf (0-3)
[2022-11-15 22:43] LABS: Amphetamine/Metha Screen,Urine Negative ng/ml (<1000); Methadone Screen,Urine Negative ng/ml (<300)
[2022-11-15 22:44] LABS: Cannabinoid Screen,Urine Negative ng/ml (<50)
[2022-11-15 22:45] LABS: Cocaine Screen,Urine Negative ng/ml (<300); Opiate Screen,Urine Negative ng/ml (<300)
[2022-11-15 22:46] LABS: Phencyclidine Screen,Urine Negative ng/ml (<25)
--- NOTE | 2022-11-15 22:55 | HMH.EDSEIZ ---
Discharge Plan Disposition Patient Disposition: Home, Self-Care Condition: Good Prescriptions Prescriptions: New cephalexin 500 mg capsule 500 mg PO TID 7 Days Qty: 21 0RF No Action clotrimazole-betamethasone [Lotrisone] 1-0.05 % cream 1 applic TP BID fluticasone propionate [Flonase Allergy Relief] 50 mcg/actuation spray,suspension 50 mcg NS DAILY omeprazole 20 mg capsule,delayed release(DR/EC) 20 mg PO DAILY cyanocobalamin (vitamin B-12) 1,000 mcg/mL solution 1,000 mcg IM QMONTH Ventolin HFA 90 mcg/actuation HFA aerosol inhaler 2 puff IH QID Linzess 72 mcg capsule 72 mcg PO DAILY alendronate 10 mg tablet 1 mg PO DAILY cholecalciferol (vitamin D3) 50 mcg (2,000 unit) tablet 1,000 unit PO DAILY diclofenac sodium 1 % gel 4 g TP QID PRN (Reason: pain ) 30 Days Qty: 100 2RF Rx Instructions: apply to single, ankle, foot; for foot includes sole/toes/top of foot levetiracetam 500 mg tablet 500 mg PO BID Label Comments: TAKE 1 TABLET BY MOUTH TWICE DAILY ergocalciferol (vitamin D2) 1,250 mcg (50,000 unit) capsule 50,000 unit PO QWEEK Qty: 4 Label Comments: TAKE 1 CAPSULE BY MOUTH ONCE A WEEK levothyroxine 125 mcg tablet 150 mcg PO DAILY Qty: 90 Label Comments: TAKE 1 TABLET BY MOUTH ONCE DAILY urea 40 % cream 1 applic TP BID Qty: 60 3RF Rx Instructions: Apply to dry affected areas up to twice daily amikacin 1,000 mg/4 mL solution 250 mg IM .ASDIRECTED Label Comments: IRRIGATE WITH 30 ML DIRECTED; SEE ADMINISTRATION INSTRUCTIONS lorazepam 0.5 mg tablet 0.5 mg PO BID PRN (Reason: Anxiety) Qty: 60 2RF sertraline 100 mg tablet 200 mg PO DAILY Qty: 60 2RF ibuprofen 600 MG tablet 600 mg PO Q6HP PRN (Reason: Mild Pain) Qty: 30 0RF hydrocodone-acetaminophen 1 EACH tablet 1 tab PO Q4H PRN (Reason: Moderate To Severe Pain) Qty: 7 0RF nitrofurantoin monohyd/m-cryst 100 MG capsule 100 mg PO BID nitrofurantoin monohyd/m-cryst 100 mg capsule 100 mg PO BID Rx Instructions: must administer with a meal/food methenamine hippurate 1 GM tablet 1 gm PO TID potassium chloride 20 MEQ tablet 20 meq PO DAILY tizanidine 2 MG tablet 2 mg PO BID gabapentin 100 MG capsule 100 mg PO BID Qty: 60 0RF Referrals Follow up/Referrals: Luis Henderson MD [Primary Care Provider] - See instructions Clinical Impressions Clinical Impression: Seizure, UTI (urinary tract infection) Instructions Patient Instructions: DI for Seizure Disorder -- Adult, DI for Seizure (Not Epilepsy/Seizure Disorder), DI for Seizure Disorder -- Child Discharge ED Provider: Kisha Sutton Seizures HPI General Chief Complaint: Seizure Stated Complaint: seizures Time Seen by Provider: 11/15/22 20:16 Mode of Arrival: EMS Source of Information: Patient, Spouse and EMS Limitations: Language Barrier Description of Symptoms (Recalled from ER Triage Doc. by RN): per EMS they were called for a seizure, family states that she has a hx of seizures and the doctor took her off it 2 days ago due to low sodium. Family states the pt had a seizure for 20 minutes and he was having trouble getting her to talk or focus on her. Pt is starting to come back to her baseline in route. History of Present Illness HPI Narrative: Patient is a 62-year-old female who is here secondary to seizure activity. Patient had a tonic-clonic seizure lasted for 10 minutes according to his caregiver who is his ex-. Patient been diagnosed with seizure 6 months ago. He was secondary to hyponatremia. Then patient was put on Keppra 2 weeks ago. Patient developed a rash a week later on the abdomen upper arm and posterior thigh area. Dr. Machado his primary care doctor told him to stop the Keppra and apply hydrocortisone cream. The rash is looking better. Today patient had a tonic-clonic seizure
--- NOTE | 2022-11-15 23:08 | PC.NURSE ---
ER in room speaking with pt
== END 2022-11-15 23:37 | disposition home or self-care (01) ==
PROVIDERS: Student in an Organized Health Care Education/Training Program; Emergency Provider Emergency Medicine; PCP Internal Medicine Adolescent Medicine
DX: R56.9 Unspecified convulsions (principal); N39.0 Urinary tract infection, site not specified; F41.8 Other specified anxiety disorders; F41.0 Panic disorder [episodic paroxysmal anxiety]; K21.9 Gastro-esophageal reflux disease without esophagitis; I10 Essential (primary) hypertension; E78.5 Hyperlipidemia, unspecified; M19.90 Unspecified osteoarthritis, unspecified site; Z90.49 Acquired absence of other specified parts of digestive tract; Z98.51 Tubal ligation status
CPT/HCPCS: 70450; 71045; 80053; 80305; 81001; 85025; 87086; 87088; 87186; 93005; 96374; 96375; 99285; J1953; J2405

== ENCOUNTER 2022-11-18 16:41 | Outpatient (CLI) | payer MEDICAID, SELFPAY ==
[2022-11-18 17:00] VITALS: BP 122/68; RESP 17; TEMP 36.7; O2SAT 95
== END 2022-11-18 17:06 | disposition home or self-care (01) ==
LOC: INF 16:42
PROVIDERS: PCP Internal Medicine Adolescent Medicine; Visit Provider Internal Medicine Adolescent Medicine
DX: N39.0 Urinary tract infection, site not specified (principal); Z16.12 Extended spectrum beta lactamase (ESBL) resistance
CPT/HCPCS: 96372; J1335

== ENCOUNTER 2022-11-19 12:30 | Outpatient (CLI) | payer MEDICAID, SELFPAY ==
[2022-11-19 13:03] VITALS: BP 121/72; PULSE 93; RESP 18; TEMP 36.4; O2SAT 97
== END 2022-11-19 13:03 | disposition home or self-care (01) ==
LOC: INF 12:31
PROVIDERS: PCP Nurse Practitioner Family; Visit Provider Nurse Practitioner Family
DX: N39.0 Urinary tract infection, site not specified (principal); Z16.12 Extended spectrum beta lactamase (ESBL) resistance
CPT/HCPCS: 96372; J1335

== ENCOUNTER 2022-11-20 13:13 | Outpatient (CLI) | payer MEDICAID, SELFPAY ==
[2022-11-20 13:37] VITALS: BP 163/72; PULSE 90; RESP 18; O2SAT 92
== END 2022-11-20 13:37 | disposition home or self-care (01) ==
LOC: INF 13:14
PROVIDERS: PCP Nurse Practitioner Family; Visit Provider Nurse Practitioner Family
DX: N39.0 Urinary tract infection, site not specified (principal); Z16.12 Extended spectrum beta lactamase (ESBL) resistance; B96.29 Other Escherichia coli [E. coli] as the cause of diseases classified elsewhere
CPT/HCPCS: 96372; J1335

== ENCOUNTER 2022-11-21 12:37 | Outpatient (CLI) | payer MEDICAID, SELFPAY ==
[2022-11-21 13:10] VITALS: BP 141/78; PULSE 115; RESP 18; O2SAT 95
== END 2022-11-21 13:22 | disposition home or self-care (01) ==
LOC: INF 12:38
PROVIDERS: PCP Internal Medicine Adolescent Medicine; Visit Provider Nurse Practitioner Family
DX: N39.0 Urinary tract infection, site not specified (principal); Z16.12 Extended spectrum beta lactamase (ESBL) resistance; B96.29 Other Escherichia coli [E. coli] as the cause of diseases classified elsewhere
CPT/HCPCS: 96372; J1335

== ENCOUNTER 2022-11-22 14:09 | Outpatient (CLI) | payer MEDICAID, SELFPAY ==
[2022-11-22 14:35] VITALS: BP 150/80; PULSE 101; RESP 18; TEMP 36.6; O2SAT 97
== END 2022-11-22 14:35 | disposition home or self-care (01) ==
LOC: INF 14:09
PROVIDERS: PCP Internal Medicine Adolescent Medicine; Visit Provider Nurse Practitioner Family
DX: N39.0 Urinary tract infection, site not specified (principal); Z16.12 Extended spectrum beta lactamase (ESBL) resistance; B96.29 Other Escherichia coli [E. coli] as the cause of diseases classified elsewhere
CPT/HCPCS: 96372; J1335

== ENCOUNTER → 2022-11-23 13:21 | Outpatient (CLI) | payer MEDICAID, SELFPAY ==
[2022-11-23 13:46] VITALS: BP 119/74; PULSE 74; RESP 18; TEMP 36.4; O2SAT 97
[2022-11-23 13:51] VITALS: BP 119/74; PULSE 74; RESP 18; TEMP 36.4; O2SAT 97
== END ==
PROVIDERS: PCP Internal Medicine Adolescent Medicine; Visit Provider Nurse Practitioner Family
DX: N39.0 Urinary tract infection, site not specified (principal); Z16.12 Extended spectrum beta lactamase (ESBL) resistance; B96.29 Other Escherichia coli [E. coli] as the cause of diseases classified elsewhere
CPT/HCPCS: 96372; J1335

== ENCOUNTER → 2022-11-24 12:51 | Outpatient (CLI) | payer MEDICAID, SELFPAY | PROVIDERS: PCP Internal Medicine Adolescent Medicine; Visit Provider Nurse Practitioner Family | DX: N39.0 Urinary tract infection, site not specified (principal); Z16.12 Extended spectrum beta lactamase (ESBL) resistance; B96.29 Other Escherichia coli [E. coli] as the cause of diseases classified elsewhere | CPT/HCPCS: 96372; G0463; J1335 ==

== ENCOUNTER → 2022-12-18 14:48 | Outpatient (POV) | payer MEDICAID, SELFPAY ==
[2022-12-18 14:55] VITALS: BP 137/73; PULSE 109; RESP 20; BMI 22.8
--- NOTE | 2022-12-18 15:04 | EXP.PAIN.SOA ---
[facility] Pain Management SOAP Note Subjective:: Patient is a pleasant 62-year-old female who presents today for medication refill and follow-up. We are currently treating the patient for degenerative disc disease of lumbar spine with lumbar radiculopathy symptoms, greater trochanteric bursitis, osteoarthritis of the left knee, sacroiliitis. Today she rates her pain a 8 out of 10. Patient denies any new trauma or injury. Patient denies any change location or type of pain she experiences. She does state that she has chronic pain throughout her low back as well as her knee and hips. She does state this is a constant aching, throbbing sensation that is worse with increased activity. She states it it interferes with her ability to perform any activities of daily living such as cooking or cleaning or even simply getting ready in the morning. Patient does have a significant history of seizures and is currently being seen by a neurologist at . Patient is currently managed with gabapentin 100 mg twice a day and compounding cream. She states these medications do help and denies any side effects. She is requesting additional medication to help with her day-to-day pain. Patient is also prescribed lorazepam 0.5 mg twice a day from her primary care doctor. She does use a wheelchair occasionally for help with ambulation. She also uses a knee brace for additional support. Her Claus is [phone]. Its been reviewed and appropriate. Review of Systems: General: No recent weight changes, no fever, no sleep disturbances Respiratory: No cough, no shortness of air, no recurring pulmonary infections Cardiovascular/peripheral vascular: No chest pain, no palpitations, no edema, no shortness of breath Gastrointestinal: No new onset incontinence, normal bowel movements reported Genitourinary: No new onset incontinence Musculoskeletal: Low back pain, knee pain Psychiatric: [Normal mood/affect] Neurological: [Denies weakness in extremities], [denies balance issues] Objective:: Physical Exam: General: Alert and oriented x3, no acute distress, pleasant and cooperative Lungs: Respirations even and unlabored, symmetrical chest expansion Eyes: PERRL Musculoskeletal: Flexion and extension of lumbar [spine] somewhat guarded secondary to pain, [antalgic gait noted] Neurological: Speech clear, no gross sensory deficit Assessment:: Degenerative disc disease of lumbar spine with lumbar radiculopathy symptoms, greater trochanteric bursitis, osteoarthritis left knee, sacroiliitis Plan:: Patient continues to have severe pain throughout her low back and left knee on a daily basis. Patient did have limited range of motion of her lumbar spine during today's visit. I will refill her gabapentin 100 mg twice a day and provide a 1 month supply of this medication. I will also send in a new prescription of diclofenac 75 mg twice daily with a 14-day supply. Patient has stated she does not have any kidney issues. She does state that she will occasionally get UTIs and that she does have to self cath however her kidney function is not altered. I have counseled her to discontinue all other NSAIDs while taking this medication and to take this medication with food to minimize GI upset. I have also discussed with the patient that she may benefit from a pain pump trial. Risk and benefits were discussed with the patient and she would like to proceed forward with this plan of care. I will order a psychiatric evaluation at today's visit and if she is deemed an appropriate candidate we will proceed in the future with a pain pump trial. Patient will return to clinic following her psychiatric evaluation. Patient has been instructed to contact the clinic with any concerns before the next appointment. Dr. Robledo has reviewed this note and agrees with this plan of care. This note was dictated using voice recognition software and make contain errors or omissions. [facility] Disclaimer: The information contained in th
== END | disposition home or self-care (01) ==
PROVIDERS: PCP Internal Medicine Adolescent Medicine; Visit Provider Nurse Practitioner Family
DX: M51.16 Intervertebral disc disorders with radiculopathy, lumbar region (principal); M70.60 Trochanteric bursitis, unspecified hip; M25.562 Pain in left knee; M46.1 Sacroiliitis, not elsewhere classified
CPT/HCPCS: 99212; G0463

== ENCOUNTER 2022-12-23 18:38 | Emergency (ER) | payer MEDICAID, SELFPAY ==
[2022-12-23] VITALS (7 sets, daily range): BP systolic 119–161; BP diastolic 87–110; PULSE 75–100; RESP 16–18; TEMP 36.4; O2SAT 96–99; BMI 26.4
--- NOTE | 2022-12-23 19:10 | PC.NURSE ---
shift change report given to abdonrn
[2022-12-23 20:57] LABS: Microscopic, Urine URINE MICROSCOPIC (MICROSCOPIC)
[2022-12-23 21:02] LABS: Appearance,Urine CLEAR (Clear); Bilirubin,Urine Negative (Negative); Blood, Urine Negative (Negative); Color,Urine STRAW (Yellow); Glucose,Urine (UA) Negative (Negative); Ketones,Urine Negative (Negative); Leukocyte Esterase,Urine TRACE (Negative); Nitrate,Urine POSITIVE (Negative); Protein,Urine Negative (Negative); Specific Gravity, Urine <= 1.005 (1.005-1.030); Urobilinogen,Urine 0.2 EU/dl (0.2)
[2022-12-23 21:15] LABS: Bacteria,Urine 2+ /lpf; WBC,Urine Occasional #/hpf (0-3)
--- NOTE | 2022-12-23 21:27 | HMH.EDANX ---
Discharge Plan Disposition Patient Disposition: Home, Self-Care Chief Complaint: Anxiety Prescriptions Prescriptions: No Action clotrimazole-betamethasone [Lotrisone] 1-0.05 % cream 1 applic TP BID fluticasone propionate [Flonase Allergy Relief] 50 mcg/actuation spray,suspension 50 mcg NS DAILY omeprazole 20 mg capsule,delayed release(DR/EC) 20 mg PO DAILY cyanocobalamin (vitamin B-12) 1,000 mcg/mL solution 1,000 mcg IM QMONTH Ventolin HFA 90 mcg/actuation HFA aerosol inhaler 2 puff IH QID Linzess 72 mcg capsule 72 mcg PO DAILY alendronate 10 mg tablet 1 mg PO DAILY cholecalciferol (vitamin D3) 50 mcg (2,000 unit) tablet 1,000 unit PO DAILY diclofenac sodium 1 % gel 4 g TP QID PRN (Reason: pain ) 30 Days Qty: 100 2RF Rx Instructions: apply to single, ankle, foot; for foot includes sole/toes/top of foot levetiracetam 500 mg tablet 500 mg PO BID Label Comments: TAKE 1 TABLET BY MOUTH TWICE DAILY ergocalciferol (vitamin D2) 1,250 mcg (50,000 unit) capsule 50,000 unit PO QWEEK Qty: 4 Label Comments: TAKE 1 CAPSULE BY MOUTH ONCE A WEEK levothyroxine 125 mcg tablet 150 mcg PO DAILY Qty: 90 Label Comments: TAKE 1 TABLET BY MOUTH ONCE DAILY urea 40 % cream 1 applic TP BID Qty: 60 3RF Rx Instructions: Apply to dry affected areas up to twice daily amikacin 1,000 mg/4 mL solution 250 mg IM .ASDIRECTED Label Comments: IRRIGATE WITH 30 ML DIRECTED; SEE ADMINISTRATION INSTRUCTIONS lorazepam 0.5 mg tablet 0.5 mg PO BID PRN (Reason: Anxiety) Qty: 60 2RF sertraline 100 mg tablet 200 mg PO DAILY Qty: 60 2RF ibuprofen 600 MG tablet 600 mg PO Q6HP PRN (Reason: Mild Pain) Qty: 30 0RF hydrocodone-acetaminophen 1 EACH tablet 1 tab PO Q4H PRN (Reason: Moderate To Severe Pain) Qty: 7 0RF nitrofurantoin monohyd/m-cryst 100 MG capsule 100 mg PO BID nitrofurantoin monohyd/m-cryst 100 mg capsule 100 mg PO BID Rx Instructions: must administer with a meal/food cephalexin 500 mg capsule 500 mg PO TID methenamine hippurate 1 GM tablet 1 gm PO TID potassium chloride 20 MEQ tablet 20 meq PO DAILY tizanidine 2 MG tablet 2 mg PO BID diclofenac sodium 75 mg tablet,delayed release (DR/EC) 75 mg PO BID Qty: 28 0RF gabapentin 100 MG capsule 100 mg PO BID Qty: 60 0RF Referrals Follow up/Referrals: Provider,Referral, [Primary Care Provider] - See instructions Clinical Impressions Clinical Impression: Anxiety Discharge ED Provider: Kisha Sutton HPI General Chief Complaint: Anxiety Stated Complaint: Anxiety Time Seen by Provider: 12/23/22 21:20 Mode of Arrival: EMS Source of Information: Patient Limitations: No Limitations Description of Symptoms (Recalled from ER Triage Doc. by RN): Pt reports needs to be in/out cathed, reports she caths at home but her always does it for her states she can't. Reports last cath was 10:30am today. is in long-term pt reprots. Pt also reprots anxiety r/t takes care of her and is in long-term as of today. Pt reports has lorazepam to take as needed but reports has not taken it today. History of Present Illness HPI narrative: Patient is a 62-year-old female who is here secondary to anxiety. Patient had an anxiety attack because the dairy equipment mechanic were at her house trying to arrest her . He is her primary caregiver. Patient stated that he [place] for urine to be drained from the bladder. And he does everything for her and he is good to her. Patient stated that she had a anxiety attack because she does not know what to do without him. She is not homicidal suicidal very concerned and very anxious. complaint: anxiety Onset (ago): minute(s) Symptoms: dyspnea and palpitations Severity: moderate Quality: constant Place: home History of similar episodes: No Related Umair
--- NOTE | 2023-01-03 04:30 | PC.NURSE ---
Dr. Sutton would like to send in [facility] for a positive urine culture from 12/23.
== END 2022-12-23 21:47 | disposition home or self-care (01) ==
PROVIDERS: Emergency Provider Emergency Medicine
DX: F41.9 Anxiety disorder, unspecified (principal)
CPT/HCPCS: 51702; 81001; 87086; 87088; 87186; 96372; 99283; 99284

== ENCOUNTER 2023-01-02 13:52 | Emergency (ER) | payer MEDICAID, SELFPAY ==
--- NOTE | 2023-01-02 14:07 | EXP.UTC ---
Discharge Plan Disposition Patient Disposition: Home, Self-Care Condition: Good Prescriptions Prescriptions: No Action clotrimazole-betamethasone [Lotrisone] 1-0.05 % cream 1 applic TP BID fluticasone propionate [Flonase Allergy Relief] 50 mcg/actuation spray,suspension 50 mcg NS DAILY omeprazole 20 mg capsule,delayed release(DR/EC) 20 mg PO DAILY cyanocobalamin (vitamin B-12) 1,000 mcg/mL solution 1,000 mcg IM QMONTH Ventolin HFA 90 mcg/actuation HFA aerosol inhaler 2 puff IH QID Linzess 72 mcg capsule 72 mcg PO DAILY alendronate 10 mg tablet 1 mg PO DAILY cholecalciferol (vitamin D3) 50 mcg (2,000 unit) tablet 1,000 unit PO DAILY diclofenac sodium 1 % gel 4 g TP QID PRN (Reason: pain ) 30 Days Qty: 100 2RF Rx Instructions: apply to single, ankle, foot; for foot includes sole/toes/top of foot levetiracetam 500 mg tablet 500 mg PO BID Label Comments: TAKE 1 TABLET BY MOUTH TWICE DAILY ergocalciferol (vitamin D2) 1,250 mcg (50,000 unit) capsule 50,000 unit PO QWEEK Qty: 4 Label Comments: TAKE 1 CAPSULE BY MOUTH ONCE A WEEK levothyroxine 125 mcg tablet 150 mcg PO DAILY Qty: 90 Label Comments: TAKE 1 TABLET BY MOUTH ONCE DAILY urea 40 % cream 1 applic TP BID Qty: 60 3RF Rx Instructions: Apply to dry affected areas up to twice daily amikacin 1,000 mg/4 mL solution 250 mg IM .ASDIRECTED Label Comments: IRRIGATE WITH 30 ML DIRECTED; SEE ADMINISTRATION INSTRUCTIONS lorazepam 0.5 mg tablet 0.5 mg PO BID PRN (Reason: Anxiety) Qty: 60 2RF sertraline 100 mg tablet 200 mg PO DAILY Qty: 60 2RF ibuprofen 600 MG tablet 600 mg PO Q6HP PRN (Reason: Mild Pain) Qty: 30 0RF hydrocodone-acetaminophen 1 EACH tablet 1 tab PO Q4H PRN (Reason: Moderate To Severe Pain) Qty: 7 0RF methenamine hippurate 1 GM tablet 1 gm PO TID potassium chloride 20 MEQ tablet 20 meq PO DAILY tizanidine 2 MG tablet 2 mg PO BID diclofenac sodium 75 mg tablet,delayed release (DR/EC) 75 mg PO BID Qty: 28 0RF gabapentin 100 MG capsule 100 mg PO BID Qty: 60 0RF Referrals Follow up/Referrals: Luis Henderson MD [Primary Care Provider] - See instructions Deborah Andres DPM [Staff Physician] - See instructions Activity Restrictions/Add. Instructions Additional Instructions/Restrictions: Rest the extremity, Elevate the extremity as tolerated while you are resting. Take tylenol for pain. Follow up with Dr. Andres (podiatry). I put in a referral but you need to call her office and schedule an appointment. Follow up with your regular doctor. GO TO THE ER FOR ANY WORSENING SYMPTOMS Clinical Impressions Clinical Impression: Sprain of left foot Discharge ED Provider: Jordan Walls [facility] General Stated complaint: Fall 12/30@home LT ankle pain w/ bruising Time Seen by Provider: 01/02/23 14:06 History of Present Illness Provider Complaint: She states that 3 days she was walking when she twisted her left foot. She has had left foot pain and swelling since then. She states she has a history of cystic fibrosis and she falls a lot. Related Data Home Medications Medication Instructions Recorded Confirmed clotrimazole-betamethasone 1 1 applic topical BID skin care 09/13/17 12/18/22 %-0.05 % topical cream (Lotrisone) fluticasone propionate 50 50 mcg intranasal DAILY allergies 09/13/17 12/18/22 mcg/actuation nasal spray,suspension (Flonase Allergy Relief) omeprazole 20 mg capsule,delayed 20 mg PO DAILY GERD 09/13/17 12/18/22 release albuterol sulfate 90 mcg/actuation 2 puff inhalation QID Breathing 11/04/18 12/18/22 aerosol inhaler (Ventolin HFA) problems cyanocobalamin (vitamin B-12) 1,000 mcg IM QMONTH Supplement 11/04/18 12/18/22 1,000 mcg/mL injection solution linaclotide 72 mcg capsule 72 mcg PO DAILY ibs 11/04/18 12/18/22 (Linzess) me
[2023-01-02 14:15] VITALS: BP 132/85; PULSE 94; RESP 18; TEMP 36.8; O2SAT 98; BMI 23.8
--- NOTE | 2023-01-02 14:15 | XR_ITS ---
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 There is no acute fracture or dislocation. There are chronic 2nd and 4th metatarsal fractures. There is a hallux valgus deformity. Mild to moderate degenerative changes are seen. A small plantar calcaneal spur is present. There is no soft tissue abnormality. IMPRESSION: No acute bony abnormality. Reviewed, Interpreted and Dictated by Rick Villagomez III, MD Transcribed by Deja Hodges Authenticated and . [facility]
--- NOTE | 2023-01-02 14:15 | XR_ITS ---
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 There is no acute fracture or dislocation. Chronic fractures of the distal tibia and fibula are seen. There are mild degenerative changes. A small plantar calcaneal spur is seen. There is no soft tissue abnormality. IMPRESSION: No acute bony abnormality. Reviewed, Interpreted and Dictated by Rick Villagomez III, MD Transcribed by Deja Hodges Authenticated and [facility]
[2023-01-02 16:00] VITALS: BP 120/62; PULSE 75; RESP 18; TEMP 37.1; O2SAT 98
== END 2023-01-02 16:00 | disposition home or self-care (01) ==
PROVIDERS: Emergency Provider Nurse Practitioner Family; PCP Internal Medicine Adolescent Medicine
DX: S93.602A Unspecified sprain of left foot, initial encounter (principal); K21.9 Gastro-esophageal reflux disease without esophagitis; E03.9 Hypothyroidism, unspecified; E78.5 Hyperlipidemia, unspecified; X50.1XXA Overexertion from prolonged static or awkward postures, initial encounter
CPT/HCPCS: L4386; 73610; 73630; 99212; 99214; G0463

== ENCOUNTER 2023-02-14 11:17 | Inpatient (IN) | payer MEDICAID, SELFPAY ==
[2023-02-14] VITALS (18 sets, daily range): BP systolic 88–132; BP diastolic 49–64; PULSE 67–101; RESP 16–22; TEMP 36.4–43; O2SAT 92–99; BMI 22.1
--- NOTE | 2023-02-14 11:33 | PC.NURSE ---
[facility]
--- NOTE | 2023-02-14 11:47 | XR_ITS ---
FINAL REPORT CLINICAL HISTORY: cellulitis FINDINGS: RIGHT TIBIA FIBULA Two views were obtained. There is no acute fracture or dislocation. The joint spaces appear normal. There is no evidence of bony destruction. There is soft tissue swelling in the pretibial region. There is no foreign body or gas in the soft tissues. IMPRESSION: No acute bony abnormality. Reviewed, Interpreted and Dictated by Pauline Leung MD Transcribed by Linda Jackson Authenticated and [facility]
[2023-02-14 12:13] LABS: Basophils % 0.3 % (0.1-2.0); Eosinophils # 0.1 K/mm3 (0.0-0.4); Eosinophils % 0.7 % (0.1-12.0); Hematocrit 35.5 % (37.0-47.0); Hemoglobin 11.5 g/dL (12.2-16.2); Lymphocytes # 0.5 K/mm3 (0.7-4.5); Mean Corpuscular HGB Conc 32.4 g/dL (31.8-35.4); Mean Corpuscular Hemoglobin 25.3 pg (27.0-31.2); Mean Corpuscular Volume 77.9 fl (81-99); Mean Platelet Volume 8.8 fl (7.4-10.4); Monocytes # 0.3 K/mm3 (0.1-1.0); Monocytes % 4.3 % (1.7-9.3); Neutrophils # 6.1 K/mm3 (1.8-7.8); Neutrophils % 87.6 % (37.0-80.0); Platelet Count 175 K/mm3 (142-424); Red Blood Count 4.55 M/mm3 (4.20-5.40); Red Cell Distribution Width 15.1 % (11.5-17.5); White Blood Count 6.9 K/mm3 (4.8-10.8)
[2023-02-14 12:15] LABS: MANUAL DIFFERENTIAL MANUAL DIFFERENTIAL (MANUAL DIFF)
[2023-02-14 12:18] LABS: Lactic Acid 1.4 mmol/L (0.7-2.1)
[2023-02-14 12:25] LABS: C-Reactive Protein 295.8 mg/L (0-4)
[2023-02-14 13:01] LABS: Chloride 95 mmol/L (98-107); Potassium 3.4 mmoL/L (3.5-5.1); Sodium 134 mmol/L (136-145)
--- NOTE | 2023-02-14 13:01 | HMH.PHAINT1 ---
Pharmacy Intervention Comments: MEDICATION RECONCILIATION COMPLETED ON PATIENT USING EXTERNAL FILL HISTORY FROM PHARMACY, ROWENA REPORT, AND LIST FROM PCP OFFICE. -KENNETH SWENSOND
[2023-02-14 13:04] LABS: Alanine Aminotransferase 31 U/L (12-78); Albumin Level 3.2 g/dl (3.5-5.0); Alkaline Phosphatase 79 U/L (38-126); Anion Gap 12.4 mEq/L (5-15); Aspartate Amino Transferase 64 U/L (14-36); Bilirubin,Total 0.7 mg/dl (0.2-1.3); Blood Urea Nitrogen 23 mg/dl (7-17); Calcium 7.8 mg/dl (8.4-10.2); Carbon Dioxide 30 mmol/L (22.0-30.0); Creatinine Clearance Estimated 56 mL/min (50-200); Estimated Glomerular Filt Rate 101 ml/min (>60); GFR (African American) 122 ML/MIN (>60); Globulin 3.2 g/dL (1.3-3.2); Glucose 128 mg/dl (74-100); Total Protein,Serum 6.4 g/dl (6.3-8.2)
--- NOTE | 2023-02-14 13:11 | MR_ITS ---
FINAL REPORT TECHNIQUE: Multiplanar MR without contrast CLINICAL HISTORY: RIGHT KNEE CELLULITIS FINDINGS: MR examination of the right knee with special attention to the proximal tibia was performed. There is significant subcutaneous edema which extends from the patella to the mid tibia. There is a open wound overlying the proximal tibia with cellulitis most pronounced at this level. The wound extends to within 9 mm of the tibial cortical surface. There are no MR findings of osteomyelitis seen. There is air and the deeper subcutaneous tissues 2.5 cm superior to the open wound. IMPRESSION: No evidence of osteomyelitis. There is significant pretibial cellulitis with an open wound and associated air within the subcutaneous tissues, probably reflecting communication with the open wound, less likely gas producing infection. Reviewed, Interpreted and Dictated by Pauline Leung MD Transcribed by Marii Segovia Authenticated and [facility]
--- NOTE | 2023-02-14 13:11 | ECG_ITS ---
APPROVED REPORT Exam: Resting ECG HR:120 bpm ECG Measurements Heart Rate 120 AXES IN 130 P 55 QRSd 98 QRS 54 QT 321 T 47 QTc 392 Conclusion SINUS TACHYCARDIA INCOMPLETE RIGHT BUNDLE BRANCH BLOCK [90+ ms QRS DURATION, TERMINAL R IN V1/V2, 40+ ms S IN I/aVL/V4/V5/V6] Isolated Q in III of uncertain significance ABNORMAL RHYTHM ECG UNCONFIRMED REPORT Electronically signed by : Luis Henderson MD 02/15/2023 10:40:24
--- NOTE | 2023-02-14 13:25 | EXP.PHA.CONS ---
Pharmacy Consult Date: 02/14/23 Time: 13:25 Referring provider: DR. CROWDER Reason for Consult:: VANCOMYCIN DOSING Allergies Allergy/AdvReac Type Severity Reaction Status Date / Time metoclopramide [From REGLAN] Allergy Mild I-RASH Verified 01/02/23 14:26 Sulfa (Sulfonamide Allergy Mild I-RASH Verified 01/02/23 14:26 Antibiotics) [SULFA (SULFONAMIDE ANTIBIOTICS)] morphine Allergy Vomiting Verified 01/02/23 14:26 Home Medications Medication Instructions Recorded Confirmed Type cyanocobalamin (vitamin B-12) 1,000 mcg IM MONTHLY Supplement 11/04/18 02/14/23 History 1,000 mcg/mL injection solution linaclotide 72 mcg capsule 72 mcg PO DAILY IBS 11/04/18 02/14/23 History (Linzess) cholecalciferol (vitamin D3) 50 2,000 unit PO DAILY Supplement 10/11/19 02/14/23 History mcg (2,000 unit) tablet sertraline 100 mg tablet 200 mg PO DAILY mood #60 tabs 01/20/23 02/14/23 Rx levothyroxine 200 mcg tablet 200 mcg PO DAILY THYROID 02/14/23 02/14/23 History omeprazole 40 mg capsule,delayed 40 mg PO DAILY Acid reflux 02/14/23 02/14/23 History release New Prescriptions to Start Prescriptions: Height: 1.68 m Weight: 62.312 kg Laboratory Results:: Laboratory Results - last 24 hr 02/14/23 12:00: WBC 6.9, RBC 4.55, Hgb 11.5 L, Hct 35.5 L, MCV 77.9 L, MCH 25.3 L, MCHC 32.4, RDW 15.1, Plt Count 175, MPV 8.8, Neut % (Auto) 87.6 H, Lymph % (Auto) 7.0 L, [place] % (Auto) 4.3, Eos % (Auto) 0.7, Baso % (Auto) 0.3, Neut # (Auto) 6.1, Lymph # (Auto) 0.5 L, [place] # (Auto) 0.3, Eos # (Auto) 0.1, Baso # (Auto) 0.0 02/14/23 12:00: Sodium 134 L, Potassium 3.4 L, Chloride 95 L, Carbon Dioxide 30, Anion Gap 12.4, BUN 23 H, Creatinine 0.60, Estimated Creat Clear 56, Estimated GFR 101, Est GFR ( Amer) 122, Glucose 128 H, Calcium 7.8 L, Total Bilirubin 0.7, AST 64 H, ALT 31, Alkaline Phosphatase 79, Total Protein 6.4, Albumin 3.2 L, Globulin 3.2, Albumin/Globulin Ratio 1.0 L 02/14/23 12:00: Lactate 1.4 02/14/23 12:00: C-Reactive Protein 295.8 H Medical History: Medical History (Updated 01/02/23 @ 15:54 by Jordan Walls APRN) Anxiety Depression Generalized anxiety disorder GERD (gastroesophageal reflux disease) History of hypertension Hyperlipidemia New onset seizure Osteoporosis Assessment and Plan Assessment and plan all Dx Assessment and Plan for all problems:: Pharmacokinetic dosing service Objective: Patient: Floor: Age: 62 yo Serum creatinine: 0.6 mg/dL Height: 66.0 Inches Weight (kg): 62.3 Assessment: IBW (kg): 59.30 Dosing wt(kg): 62.3 Estimated Creatinine clearance (ml/min): 88.7 CRCL method: Cockcroft and Gault using ibw(default). Drug selected: Vancomycin Loading dose (mg): Vd (liters): 46.7 (factor used: 0.75 L/kg) Gopal (hr-1): 0.078 Half life (hrs): 8.89 CLvanco=?? 3.643 L/hr Recommended dose: 1000 mg Interval: 12 hrs Infusion time (hrs): 2.0 Predicted peak (mcg/mL): 32.6 Predicted trough (mcg/mL): 14.94 Total body weight is being used for vancomycin dosing. Recommendations: Give Vancomycin 1000 mg q 12 hrs with an expected Cpeak of 32.6 mcg/ml and an expected Ctrough of 14.94 mcg/ml AUC 0-24 /SAMARA Data: SAMARA 0.5 mcg/mL:?? AUC/SAMARA:? 1098.0 SAMARA 1.0 mcg/mL:?? AUC/SAMARA:? 549.0 --------- SAMARA 1.5 mcg/mL:?? AUC/SAMARA:? 366.0 SAMARA 2.0 mcg/mL:?? AUC/SAMARA:? 274.5 Thank you for the consult, will continue to follow. -KENNETH SWENSOND
[2023-02-14 13:39] LABS: Erythrocyte Sedimentation Rate 89 mm/hr (0-30)
[2023-02-14 13:41] LABS: Hypochromasia 1+; Lymphocytes % 10 % (10-50); Microcytosis 1+; Monocytes % 13 % (2-9); Neutrophils % 77 % (42-76); Total Cells Counted 100
[2023-02-14 13:42] LABS: Platelet Estimate Normal
--- NOTE | 2023-02-14 13:48 | PC.NURSE ---
bladder scanned with 387 ml of fluid. In and out caths at home 3 times a day. family leaving to get her in and out caths from home.
--- NOTE | 2023-02-14 13:51 | EXP.ORTH.CON ---
[facility] Disclaimer: The information contained in this section may have been updated after the patient was seen, as this information can be updated by other users. Medical History Anxiety Depression Generalized anxiety disorder GERD (gastroesophageal reflux disease) History of hypertension Hyperlipidemia New onset seizure Osteoporosis Surgical History H/O kyphoplasty H/O thyroidectomy H/O tubal ligation Hx of appendectomy Family History Other No significant family history Social History (Updated 02/14/23 @ 12:16 by Va Hogan RN) Smoking Status: Never smoker second hand exposure: No alcohol intake: never counseling provided: none substance use type: denies use current occupational status: other Travel in the last 8 weeks: None household members: spouse housing: house number of children: 2 current occupational exposures/hazards: No caffeine: Yes Review of Systems *Respiratory Respiratory: Reports system reviewed and no additional complaints, except as documented Meds Home Medications and Allergies Home Medications Medication Instructions Recorded Confirmed Type cyanocobalamin (vitamin B-12) 1,000 mcg IM MONTHLY Supplement 11/04/18 02/14/23 History 1,000 mcg/mL injection solution linaclotide 72 mcg capsule 72 mcg PO DAILY IBS 11/04/18 02/14/23 History (Linzess) cholecalciferol (vitamin D3) 50 2,000 unit PO DAILY Supplement 10/11/19 02/14/23 History mcg (2,000 unit) tablet sertraline 100 mg tablet 200 mg PO DAILY mood #60 tabs 01/20/23 02/14/23 Rx levothyroxine 200 mcg tablet 200 mcg PO DAILY THYROID 02/14/23 02/14/23 History omeprazole 40 mg capsule,delayed 40 mg PO DAILY Acid reflux 02/14/23 02/14/23 History release New Prescriptions to Start Prescriptions: Allergies Allergy/AdvReac Type Severity Reaction Status Date / Time metoclopramide [From REGLAN] Allergy Mild I-RASH Verified 01/02/23 14:26 Sulfa (Sulfonamide Allergy Mild I-RASH Verified 01/02/23 14:26 Antibiotics) [SULFA (SULFONAMIDE ANTIBIOTICS)] morphine Allergy Vomiting Verified 01/02/23 14:26 Ortho Exam (Inpt) Vital signs and Labs for Last 24 Hours: Temp Pulse Resp BP Pulse Ox 98.3 F 67 18 118/64 97 02/14/23 12:00 02/14/23 12:00 02/14/23 12:00 02/14/23 12:00 02/14/23 12:58 Laboratory Results - last 24 hr 02/14/23 12:00: WBC 6.9, RBC 4.55, Hgb 11.5 L, Hct 35.5 L, MCV 77.9 L, MCH 25.3 L, MCHC 32.4, RDW 15.1, Plt Count 175, MPV 8.8, Neut % (Auto) 87.6 H, Lymph % (Auto) 7.0 L, [place] % (Auto) 4.3, Eos % (Auto) 0.7, Baso % (Auto) 0.3, Neut # (Auto) 6.1, Lymph # (Auto) 0.5 L, [place] # (Auto) 0.3, Eos # (Auto) 0.1, Baso # (Auto) 0.0, Total Counted 100, Neutrophils % (Manual) 77 H, Lymphocytes % (Manual) 10, Monocytes % (Manual) 13 H, Platelet Estimate Normal, RBC Morphology Not Reportable, Hypochromasia 1+, Microcytosis 1+ 02/14/23 12:00: Sodium 134 L, Potassium 3.4 L, Chloride 95 L, Carbon Dioxide 30, Anion Gap 12.4, BUN 23 H, Creatinine 0.60, Estimated Creat Clear 56, Estimated GFR 101, Est GFR ( Amer) 122, Glucose 128 H, Calcium 7.8 L, Total Bilirubin 0.7, AST 64 H, ALT 31, Alkaline Phosphatase 79, Total Protein 6.4, Albumin 3.2 L, Globulin 3.2, Albumin/Globulin Ratio 1.0 L 02/14/23 12:00: Lactate 1.4 02/14/23 12:00: ESR 89 H 02/14/23 12:00: C-Reactive Protein 295.8 H I & O for Labs for Last 24 Hours: Intake & Output 02/11/23 02/12/23 02/13/23 02/14/23 23:59 23:59 23:59 23:59 Weight 137 lb 6 oz Additional Findings:: Right lower extremity: Erythema, fluid collection proximal anterior kiran with approximately 2 cm x 2 cm area of devitalized skin adjacent to the distal patellar tendon. Results Labs Result Diagrams: 02/14/23 12:00 02/14/23 12:00 Labs: Abn
--- NOTE | 2023-02-14 13:52 | HMH.PTWOUND ---
Rehab Inpt Wound Evaluation Rehab IP Wound Evaluation Start: 02/14/23 13:44 Freq: ONCE Status: Active Protocol: Document 02/14/23 13:45 PHORMADISON (Rec: 02/14/23 13:51 PHORNE [id number]) Rehab PT Wound Assessment Subjective Subjective 62 yowf adm to [facility] with R LE cellulitis with wound to the anterior superior R kiran x ~ 3 wks. She has hx of CP baseline, but is independently mobile at home and lives with . She reports no pain at rest, but 3/4 TTP during dressing changes. Large area of erythema noted ~3 cm surrounding the wound in a circular pattern. Wound Right Upper Anterior Kiran Wound Type unknown etiology Is This a Chronic Wound Yes Wound Length (cm) 3.0 Wound Width (cm) 3.0 Wound Depth (cm) 0.5 Wound Bed Appearance Dusky Red,Yellow Percentage Granulated (%) 10 Percentage of Slough (%) 90 Wound Margins Description Indistinct Undermining Position 5-7 o'clock Undermining Length (cm) 1.8 Surrounding Tissue Appearance Bright Red,Dark Red Edema Type Pitting Edema Degree 3+ Query Text:1+ Trace, Barely Detectable, Rebound 15-30 seconds 2+ Moderate, Slight Indentation, Rebound 10-20 seconds 3+ Deep, Deeper Indentation, Rebound > 30 seconds 4+ Very Deep, Rebound > 60 seconds Edema Appearance Shiny,Puffy Wound Drainage Description Yellow Drainage Amount Small Drainage Odor No Odor Wound Topical Solution/Irrigant Saline Irrigant Packing Type Alginate Primary Dressing Gauze Pad Wound Secondary Dressing Type Gauze Roll/Wrap,Adhering Gauze Roll Wound Debridement Method Sharps,Gauze,Mechanical Wound Debridement Amount of Tissue Minimal Removed Wound Debridement Result Yellow Sloughing Remains Dressing Change Patient Tolerance Tolerated Well Plan/Recommendation Comment Also area of undermining noted at 9 o'clock 1.2 cm in depth. Will continue to follow for debridement as necessary as significant sloughing remains throughout the wound bed. Sharp excisional debride
--- NOTE | 2023-02-14 14:33 | PC.NURSE ---
COURTESY TECH NOTE; ROUNDED 1430, PT OUT OF ROOM AT THIS TIME, FAMILY MEMBER DENIED NEED FOR ASSISTANCE WITH ANYTHING AT THIS TIME, CALL LIGHT WITHIN REACH, NO FURTHER REQUESTS AT THIS TIME Danielle ALICEA, KATHRINE
--- NOTE | 2023-02-14 14:47 | EXP.HP ---
History of Present Illness *Admission Date: 02/14/23 *Reason for visit:: Wound right lower leg *History of present illness: 62 yr old debilitated female seen in our outpatient clinic today, accompanied by home-child caregiver, with complaints of pain and drainage from a wound on the right lower extremity. She fell in her bathtub about 2 weeks ago but isn't really sure if injury occurred then or prior to that fall but has been present for at least 2 weeks. Has been covering at home with a bandaid but today her aide noted marked swelling and erythema extending beyond the edges of the bandaid and recommended that she come in to be evalated. She did have a fever at home, 101F, about 48 hours ago. Wound noted to have significant slough, marked erythema extending in all directions from the wound, warmth and induration with active drainage and decision was made to admit for IV antibiotics, wound care consult, cultures, and orthopedic consult for possible debridement. Please note that she is on antibiotics quite frequently due to recurrent urinary tract infections and has a history of multi-drug resistant bacteria. [facility] Disclaimer: The information contained in this section may have been updated after the patient was seen, as this information can be updated by other users. Medical History Depression Generalized anxiety disorder GERD (gastroesophageal reflux disease) History of hypertension Hyperlipidemia Neurogenic bladder New onset seizure Osteoporosis Physical debility Surgical History H/O kyphoplasty H/O thyroidectomy H/O tubal ligation Hx of appendectomy Family History No significant family history Social History Smoking Status: Never smoker second hand exposure: No alcohol intake: never counseling provided: none substance use type: denies use current occupational status: other Travel in the last 8 weeks: None household members: spouse housing: house number of children: 2 current occupational exposures/hazards: No caffeine: Yes Review of Systems Review of Systems Review of systems:: pertinent systems reviewed and negative unless documented below Constitutional Constitutional: Reports chills, Reports fever(s), Reports frequent falls and Reports headache(s) ENT Ears, Nose, Mouth, and Throat: Reports headache(s) and Reports neck pain *Cardiovascular Cardiovascular: Reports dyspnea on exertion and Reports leg edema *Respiratory Respiratory: Reports dyspnea on exertion *Gastrointestinal Gastrointestinal: Reports constipation *Genitourinary Comments: chronic urinary retention and recurrent UTI, does intermittent catheterization at home *Musculoskeletal Musculoskeletal: Reports abnormal gait, Reports arthralgias, Reports back pain and Reports neck pain Integumentary/Breasts Skin/Breast: Reports as per HPI *Neurologic Neurologic: Reports abnormal gait, Reports abnormal movements, Reports frequent falls and Reports headache(s) Comments: all chronic and related to cerebral palsy Psychiatric Psychiatric: Reports anxiety and Reports depression Meds Home Medications and Allergies Home Medications Medication Instructions Recorded Confirmed Type cyanocobalamin (vitamin B-12) 1,000 mcg IM MONTHLY Supplement 11/04/18 02/14/23 History 1,000 mcg/mL injection solution linaclotide 72 mcg capsule 72 mcg PO DAILY IBS 11/04/18 02/14/23 History (Linzess) cholecalciferol (vitamin D3) 50 2,000 unit PO DAILY Supplement 10/11/19 02/14/23 History mcg (2,000 unit) tablet sertraline 100 mg tablet 200 mg PO DAILY mood #60 tabs 01/20/23 02/14/23 Rx levothyroxine 200 mcg tablet 200 mcg PO DAILY THYROID 02/14/23 02/14/23 History omeprazole 40 mg capsule,delayed 40 mg PO DAILY Acid reflux 0
[2023-02-14 14:58] LABS: Coronavirus 19, PCR Not Detected (NotDetected); Influenza A, PCR Not Detected (NotDetected); Influenza B, PCR Not Detected (NotDetected)
--- NOTE | 2023-02-14 15:34 | PC.NURSE ---
I AND 0 Catheterized patient with 400 ML out.
--- NOTE | 2023-02-14 18:41 | PC.WOUNDNOTE ---
right knee cellulitis ulcer
--- NOTE | 2023-02-14 19:01 | EXP.ANES.CKL ---
[facility] Disclaimer: The information contained in this section may have been updated after the patient was seen, as this information can be updated by other users. Medical History Depression Generalized anxiety disorder GERD (gastroesophageal reflux disease) History of hypertension Hyperlipidemia Neurogenic bladder New onset seizure Osteoporosis Physical debility Surgical History H/O kyphoplasty H/O thyroidectomy H/O tubal ligation Hx of appendectomy Family History No significant family history Social History Smoking Status: Never smoker second hand exposure: No alcohol intake: never counseling provided: none substance use type: denies use current occupational status: other Travel in the last 8 weeks: None household members: spouse housing: house number of children: 2 current occupational exposures/hazards: No caffeine: Yes [facility] Anesthesia Checklist Patient Identification Patient Identification: Arm Band Structural Data Planned Operative Procedure/s: Right Lower Extremity I&D Consent for Planned Operative Procedure(s) Verified: Yes Verified Documents: Surgical Consent and History and Physical NPO Status Verified Time NPO: 00:00 Additional verifications Anesthesia Reactions: No Hx Blood Transfusions: No Blood Transfusion Reaction: No Airway Assessment C-Spine Mobility Assessed: Yes TMJ Mobility Assessed: Yes Dentition: Good Dentition Neurological Assessment Level of Consciousness: Awake and Alert Anesthesia Plan Anesthesia Risk discussed: Yes Anesthesia Plan: Verified ASA Class: III Anesthesia Type: General
--- NOTE | 2023-02-14 19:12 | P.PN_ITS ---
Subjective *Date: 02/14/23 *Time: 19:12 Interval history: Status post MRI Ortho Exam (Inpt) Vital signs and Labs for Last 24 Hours: Temp Pulse Resp BP Pulse Ox 97.8 F 70 18 132/49 L 95 02/14/23 16:00 02/14/23 16:00 02/14/23 16:00 02/14/23 16:00 02/14/23 16:00 Laboratory Results - last 24 hr 02/14/23 12:00: WBC 6.9, RBC 4.55, Hgb 11.5 L, Hct 35.5 L, MCV 77.9 L, MCH 25.3 L, MCHC 32.4, RDW 15.1, Plt Count 175, MPV 8.8, Neut % (Auto) 87.6 H, Lymph % (Auto) 7.0 L, [place] % (Auto) 4.3, Eos % (Auto) 0.7, Baso % (Auto) 0.3, Neut # (Auto) 6.1, Lymph # (Auto) 0.5 L, [place] # (Auto) 0.3, Eos # (Auto) 0.1, Baso # (Auto) 0.0, Total Counted 100, Neutrophils % (Manual) 77 H, Lymphocytes % (Manual) 10, Monocytes % (Manual) 13 H, Platelet Estimate Normal, RBC Morphology Not Reportable, Hypochromasia 1+, Microcytosis 1+ 02/14/23 12:00: Sodium 134 L, Potassium 3.4 L, Chloride 95 L, Carbon Dioxide 30, Anion Gap 12.4, BUN 23 H, Creatinine 0.60, Estimated Creat Clear 56, Estimated GFR 101, Est GFR ( Amer) 122, Glucose 128 H, Calcium 7.8 L, Total Bilirubin 0.7, AST 64 H, ALT 31, Alkaline Phosphatase 79, Total Protein 6.4, Albumin 3.2 L, Globulin 3.2, Albumin/Globulin Ratio 1.0 L 02/14/23 12:00: Lactate 1.4 02/14/23 12:00: ESR 89 H 02/14/23 12:00: C-Reactive Protein 295.8 H 02/14/23 12:00: SARS-CoV-2 (PCR) Not detected, Influenza A Untype (PCR) Not detected, Influenza Type B (PCR) Not detected I & O for Labs for Last 24 Hours: Intake & Output 02/11/23 02/12/23 02/13/23 02/14/23 23:59 23:59 23:59 23:59 Intake Total 150 / 150 Output Total 400 / 400 Balance -250 / -250 Weight 137 lb 6 oz Additional Findings:: Right lower extremity: Approximately 2 cm x 2 cm full-thickness skin defect with surrounding cellulitis. Turbid drainage. Assessment and Plan *Assessment and plan (1) Wound of right lower extremity: Status: Acute Category: Medical Code(s): S81.801A - Unspecified open wound, right lower leg, initial encounter (2) Cellulitis of right lower extremity: Problem Comment: Inflammatory markers markedly elevated, normal WBC, initial lactate normal. Plain imaging negative. Consult orthopedics, pharmacy for antibiotic dosing and PT for wound care. Start IV clindamycin, vancomycin and cefepime until cultures are available. Regular diet following orthopedic consult and pending their recommendations Activity as tolerated Status: Acute Category: Medical Code(s): L03.115 - Cellulitis of right lower limb Plan 62-year-old female with right leg cellulitis, wound. Her MRI demonstrates subcutaneous gas with open wound. Open wound appears at approximately the level of the distal patellar tendon insertion. Had a discussion with her regarding these findings. We discussed conservative wound care and operative intervention. After discussion of risk, benefits, alternatives, she wished to proceed with right kiran/knee debridement, irrigation, wound vacuum-assisted closure. We discussed the risk and benefits of surgery. Risks included but were not limited to pain, bleeding, infection, damage to adjacent structures, need for further surgery, wound healing complications, loss of limb, . Patient expressed verbal consent and written consent was obtained for the above procedure.
--- NOTE | 2023-02-14 19:45 | P.OP_ITS ---
Date of procedure: 02/14/23 Pre-op Diagnosis:: Right leg wound Post-op Diagnosis:: Same Procedure performed:: 10833: Debridement irrigation of right leg skin and subcutaneous tissue 16027: Wound vacuum-assisted closure Surgeon:: Cole Guy JR, MD PICKLING MACHINE OPERATOR:: Shashi Dimas Anesthesia: GETA Estimated blood loss (mL): 30 Clinical Note:: 62-year-old female with right leg. She is a poor historian but this likely began when she fell in the tub 2 weeks ago. She was directly admitted from clinic today with full-thickness skin slough, drainage with surrounding erythema. MRI demonstrated subcutaneous gas, no osteomyelitis. I had a discussion with her regarding further management and after discussion of risk, benefits, alternatives, she wished to proceed with right leg debridement irrigation with wound vacuum-assisted closure. We discussed the risk and benefits of surgery. Risks included but were not limited to pain, bleeding, infection, damage to adjacent structures, need for further surgery, wound healing complications, loss of limb, . Patient expressed verbal consent and written consent was obtained for the above procedure. Operative findings:: After debridement the wound measured 3 cm x 2.5 cm. There was undermining superior medially approximately 4 cm in the subcutaneous plane, superior medially approximately 3 cm in the subcutaneous plane. There is no tunneling distally. Operative note:: Patient was identified in preoperative holding. Operative site was marked in indelible ink. History, physical, consent were reviewed and updated. Patient was surrendered to the anesthesia team, taken to the operative suite, placed supine on a well-padded operative table. Anesthesia was induced. The operative extremity was prepped and draped in the usual sterile fashion. The operative team donned sterile gowns and gloves and a timeout was called. All in attendance agreed regarding the patient's identity, procedure, operative site. Weight-based dose of antibiotics was given prior to incision. Using a 15 blade scalpel I sharply debrided devitalized skin, resulting in wound with clean healthy bleeding skin edges measuring 3 cm x 2.5 cm. I took swab specimens of the wound. As I palpated the wound more proximally, I noted liquefactive necrosis emanating from subcutaneous tunneling superior medial knee. Utilizing a rongeur I debrided subcutaneous tissue throughout the wound as well as superior medially. I copiously irrigated the wound with Irrisept and saline. I applied a wound vacuum-assisted closure device to the wound measuring 3 cm x 2.5 cm x 0.5 cm depth. Sterile dressings applied. Counts were correct x2. There were no apparent complications. I was present and scrubbed for the entire case. Condition: stable Disposition: PACU Specimens:: Swab specimen sent for cultures Complications:: There were no apparent complications. Postoperatively plan for knee immobilizer, weightbearing as tolerated. Empiric antibiotics, follow cultures. I am concerned about her remaining skin viability given undermining and tunneling. I would have a low threshold to consider transfer to a facility with plastic surgery coverage, as the superior medial tunneling is directly over the patellar tendon, and while not currently exposed, I am concerned about the viability of that skin in particular.
--- NOTE | 2023-02-14 20:03 | EXP.ANES.I ---
[facility] Anesthesia Record Part I Anesthesia Record I Intake, IV Amount: 500 Estimated blood loss (mL): 5 Urine output (mL): 0 Blood Products used (#): none Blood Pressure: 107/61 SaO2: 94 Pulse Rate: 101 Respiratory Rate: 16 Temperature: 97.5 F Patient is:: Drowsy and Stable Stable to PACU at:: 20:00
[2023-02-15] VITALS (9 sets, daily range): BP systolic 89–152; BP diastolic 53–78; PULSE 74–100; RESP 16–18; TEMP 36.6–36.8; O2SAT 95–99; BMI 22.9
--- NOTE | 2023-02-15 07:46 | EXP.ACUTE.PN ---
Subjective *Date: 02/15/23 *Time: 07:46 Interval history: Patient is awake, alert. at bedside. She is talkative and pleasant. I reviewed orthopedic and wound care notes and operative notes. Reviewed labs and culture results. Medical Exam Vital signs and Labs for Last 24 Hours: Vital Signs Temp Pulse Pulse Resp BP BP Pulse Ox 02/15/23 07:25 98.1 F 83 18 120/68 98 02/15/23 03:35 98.1 F 74 16 96/56 L 97 02/15/23 02:35 98.2 F 76 18 92/53 L 98 02/15/23 01:35 98 F 80 16 95/55 L 99 02/15/23 00:35 98.1 F 86 16 89/53 L 95 02/14/23 23:35 98 F 90 16 106/62 L 98 02/14/23 23:05 97.9 F 91 H 18 109/64 L 99 02/14/23 22:35 97.9 F 92 H 16 107/60 L 97 02/14/23 22:05 98.3 F 89 18 103/56 L 97 02/14/23 21:00 93 L 02/14/23 21:35 98.4 F 96 H 18 102/59 L 92 L 02/14/23 21:20 98.3 F 93 H 16 88/52 L 92 L 02/14/23 21:05 98.5 F 94 H 18 88/61 L 93 L 02/14/23 20:50 98.1 F 89 16 107/62 L 93 L 02/14/23 20:30 97.5 F L 94 H 22 111/64 94 L 02/14/23 20:20 97.5 F L 97 H 22 105/62 L 92 L 02/14/23 20:10 97.5 F L 97 H 22 100/63 L 92 L 02/14/23 20:00 97.5 F L 100 H 22 107/61 L 94 L 02/14/23 16:00 97.8 F 70 18 132/49 L 95 02/14/23 12:58 97 02/14/23 12:00 98.3 F 67 18 118/64 96 02/14/23 20:04 97.5 F L 101 H 16 107/61 L Intake and Output 02/14/23 02/15/23 02/15/23 19:59 03:59 11:59 Intake Total 150 / 1276 886 / 1276 240 / 1276 Output Total 400 / 550 150 / 550 Balance -250 / 726 736 / 726 240 / 726 Intake: Intake, Oral Amount 240 / 240 Intake, Total IV Amount 150 / 1036 886 / 1036 Cefepime HCl 1 gm In 0.9 % 100 / 100 Sodium Chloride 50 ml @ 100 mls /hr IV Q12H [facility] Rx#:[id number] Cefepime HCl 2 gm In 0.9 % 100 / 100 Sodium Chloride 100 ml @ 200 mls/hr IV Q12H [facility] Rx#:[id number] Clindamycin Phosphate/D5w 900 50 / 100 50 / 100 mg In 50 ml @ 100 mls/hr IV Q8H [facility] Rx#:[id number] Dex 5% in 0.45% NaCl 1,000 ml @ 236 / 236 50 mls/hr IV .Q20H [facility] Rx#: [id number] Output: Output, Urine Amount 400 / 550 150 / 550 Other: Weight 137 lb 6 oz 143 lb Patient Weight 02/15/23 11:59 Weight 143 lb Laboratory Results - last 24 hr 02/14/23 12:00: WBC 6.9, RBC 4.55, Hgb 11.5 L, Hct 35.5 L, MCV 77.9 L, MCH 25.3 L, MCHC 32.4, RDW 15.1, Plt Count 175, MPV 8.8, Neut % (Auto) 87.6 H, Lymph % (Auto) 7.0 L, [place] % (Auto) 4.3, Eos % (Auto) 0.7, Baso % (Auto) 0.3, Neut # (Auto) 6.1, Lymph # (Auto) 0.5 L, [place] # (Auto) 0.3, Eos # (Auto) 0.1, Baso # (Auto) 0.0, Total Counted 100, Neutrophils % (Manual) 77 H, Lymphocytes % (Manual) 10, Monocytes % (Manual) 13 H, Platelet Estimate Normal, RBC Morphology Not Reportable, Hypochromasia 1+, Microcytosis 1+ 02/14/23 12:00: Sodium 134 L, Potassium 3.4 L, Chloride 95 L, Carbon Dioxide 30, Anion Gap 12.4, BUN 23 H, Creatinine 0.60, Estimated Creat Clear 56, Estimated GFR 101, Est GFR ( Amer) 122, Glucose 128 H, Calcium 7.8 L, Total Bilirubin 0.7, AST 64 H, ALT 31, Alkaline Phosphatase 79, Total Protein 6.4, Albumin 3.2 L, Globulin 3.2, Albumin/Globulin Ratio 1.0 L 02/14/23 12:00: Lactate 1.4 02/14/23 12:00: ESR 89 H 02/14/23 12:00: C-Reactive Protein 295.8 H 02/14/23 12:00: SARS-CoV-2 (PCR) Not detected, Influenza A Untype (PCR) Not detected, Influenza Type B (PCR) Not detected I & O for Labs for Last 24 Hours: Intake & Output 02/12/23 02/13/23 02/14/23 02/15/23 11:59 11:59 11:59 11:59 Intake Total 1276 / 1276 Output Total 550 / 550 Balance 726 / 726 Weight 143 lb Microbiology Reports for the Last 24 Hours: Microbiology 02/14/23 12:20 Blood Blood Culture - Preliminary 02/14/23 12:00 Blood Blood Culture - Preliminary 02/14/23 19:30 Knee,Right - Wound Gram Stain - Final 02/14/23 12:00 Knee,Right Gram Stain - Final Comment::
--- NOTE | 2023-02-15 09:38 | HMH.ITSTN ---
Nurse confirms patient has not received PICC line yet. They will call once placed for xray. May not get one till Friday since it is the weekend.
--- NOTE | 2023-02-15 16:51 | PC.NURSE ---
spoke with [facility] pharmacy regarding pts home medications. updated list
[2023-02-16] VITALS: BP 126/69; PULSE 95; RESP 20; TEMP 37; O2SAT 93
[2023-02-16 02:24] LABS: Vancomycin,Trough 12.1 ug/mL (5.0-10.0)
[2023-02-16 04:00] VITALS: BP 130/72; PULSE 89; RESP 20; TEMP 36.9; O2SAT 96; BMI 22.8
--- NOTE | 2023-02-16 06:12 | PC.NURSE ---
No acute changes during shift. Patient does c/o chronic back pain which was unrelieved by current PRN orders. PRN Crandall ordered per Dr. Henderson and given.
[2023-02-16 07:06] VITALS: BP 102/61; PULSE 98; RESP 17; TEMP 36.7; O2SAT 96
[2023-02-16 07:14] LABS: Basophils % 0.1 % (0.1-2.0); Eosinophils # 0.1 K/mm3 (0.0-0.4); Eosinophils % 0.7 % (0.1-12.0); Hematocrit 32.4 % (37.0-47.0); Hemoglobin 10.3 g/dL (12.2-16.2); Lymphocytes # 0.7 K/mm3 (0.7-4.5); Lymphocytes % 7.9 % (10-50); Mean Corpuscular HGB Conc 31.9 g/dL (31.8-35.4); Mean Corpuscular Hemoglobin 25.2 pg (27.0-31.2); Mean Corpuscular Volume 79.2 fl (81-99); Mean Platelet Volume 9.1 fl (7.4-10.4); Monocytes # 0.3 K/mm3 (0.1-1.0); Monocytes % 3.6 % (1.7-9.3); Neutrophils # 7.2 K/mm3 (1.8-7.8); Neutrophils % 87.7 % (37.0-80.0); Platelet Count 199 K/mm3 (142-424); Red Blood Count 4.09 M/mm3 (4.20-5.40); Red Cell Distribution Width 15.4 % (11.5-17.5); White Blood Count 8.2 K/mm3 (4.8-10.8)
[2023-02-16 07:26] LABS: MANUAL DIFFERENTIAL MANUAL DIFFERENTIAL (MANUAL DIFF)
[2023-02-16 07:27] LABS: Chloride 99 mmol/L (98-107); Sodium 138 mmol/L (136-145)
[2023-02-16 07:30] LABS: Anion Gap 11.5 mEq/L (5-15); Blood Urea Nitrogen 16 mg/dl (7-17); Carbon Dioxide 30 mmol/L (22.0-30.0); Creatinine Clearance Estimated 58 mL/min (50-200); Estimated Glomerular Filt Rate 101 ml/min (>60); GFR (African American) 122 ML/MIN (>60)
[2023-02-16 07:31] LABS: Calcium 7.3 mg/dl (8.4-10.2); Glucose 108 mg/dl (74-100)
[2023-02-16 07:41] LABS: Potassium 2.5 mmoL/L (3.5-5.1)
--- NOTE | 2023-02-16 08:50 | EXP.ACUTE.PN ---
Subjective *Date: 02/16/23 *Time: 08:50 Interval history: Patient's main complaint is back pain and fatigue from not sleeping well in the hospital bed. I discussed her medications with her and her and we have made some reconciliation changes to get her back on some of her home medications as noted in the assessment/plan. No fevers. Minimal pain in her leg. Nurses report no drainage on the wound and she has had no red streaking or pain in the distal foot that is exposed. Medical Exam Vital signs and Labs for Last 24 Hours: Vital Signs Temp Pulse Resp BP Pulse Ox 02/16/23 07:06 98.0 F 98 H 17 102/61 L 96 02/16/23 04:00 98.4 F 89 20 130/72 96 02/16/23 00:00 98.6 F 95 H 20 126/69 93 L 02/15/23 20:00 97.8 F 100 H 18 121/78 95 02/15/23 15:37 98.1 F 90 18 136/66 96 02/15/23 11:01 98.2 F 92 H 18 152/75 H 97 Intake and Output 02/15/23 02/16/23 02/16/23 19:59 03:59 11:59 Intake Total 480 / 1363 883 / 1363 Output Total 1010 / 1710 700 / 1710 Balance -530 / -347 183 / -347 Intake: Intake, Oral Amount 480 / 720 240 / 720 Intake, Total IV Amount 643 / 643 Cefepime HCl 2 gm In 0.9 % 100 / 100 Sodium Chloride 100 ml @ 200 mls/hr IV Q12H [facility] Rx#:[id number] Clindamycin Phosphate/D5w 900 100 / 100 mg In 50 ml @ 100 mls/hr IV Q8H [facility] Rx#:[id number] Dex 5% in 0.45% NaCl 1,000 ml @ 443 / 443 50 mls/hr IV .Q20H [facility] Rx#: [id number] Output: Output, Urine Amount 1010 / 1710 700 / 1710 Other: Weight 142 lb 3 oz Patient Weight 02/16/23 11:59 Weight 142 lb 3 oz Laboratory Results - last 24 hr 02/16/23 01:41: Vancomycin Trough 12.1 H 02/16/23 07:00: WBC 8.2, RBC 4.09 L, Hgb 10.3 L, Hct 32.4 L, MCV 79.2 L, MCH 25.2 L, MCHC 31.9, RDW 15.4, Plt Count 199, MPV 9.1, Neut % (Auto) 87.7 H, Lymph % (Auto) 7.9 L, [place] % (Auto) 3.6, Eos % (Auto) 0.7, Baso % (Auto) 0.1, Neut # (Auto) 7.2, Lymph # (Auto) 0.7, [place] # (Auto) 0.3, Eos # (Auto) 0.1, Baso # (Auto) 0.0 02/16/23 07:00: Sodium 138, Potassium 2.5 L* D, Chloride 99, Carbon Dioxide 30, Anion Gap 11.5, BUN 16 D, Creatinine 0.60, Estimated Creat Clear 58, Estimated GFR 101, Est GFR ( Amer) 122, Glucose 108 H, Calcium 7.3 L I & O for Labs for Last 24 Hours: Intake & Output 02/13/23 02/14/23 02/15/23 02/16/23 11:59 11:59 11:59 11:59 Intake Total 1276 / 1276 1363 / 1363 Output Total 750 / 750 1710 / 1710 Balance 526 / 526 -347 / -347 Weight 143 lb 142 lb 3 oz Microbiology Reports for the Last 24 Hours: Microbiology 02/14/23 19:30 Knee,Right - Wound Gram Stain - Final 02/14/23 19:30 Knee,Right - Wound Wound Culture - Final Staphylococcus aureus 02/14/23 12:00 Knee,Right Gram Stain - Final 02/14/23 12:00 Knee,Right Wound Culture - Final Staphylococcus aureus 02/14/23 12:20 Blood Blood Culture - Final Staphylococcus aureus 02/14/23 12:00 Blood Blood Culture - Final Staphylococcus aureus Comment:: Alert, pleasant. Afebrile. Vital signs of been normal. Lungs are clear, heart rate regular. Abdomen soft, previously noted spasticity and neurologic deficits from her CPR unchanged. Wound VAC dressing is clean/dry/intact, foot distally to the dressing is without edema and good distal pulses. No red streaking. Assessment and Plan *Assessment and plan (1) Cellulitis of right lower extremity: Problem Comment: Inflammatory markers markedly elevated, normal WBC, initial lactate normal. Plain imaging negative. Consult orthopedics, pharmacy for antibiotic dosing and PT for wound care. Start IV clindamycin, vancomycin and cefepime until cultures are available. Regular diet following orthopedic consult and pending their recommendations Activity as tolerated Status: Acute Category: Medical Co
--- NOTE | 2023-02-16 09:29 | PC.NURSE ---
pt up in chair at this time
[2023-02-16 09:43] LABS: Vancomycin,Peak 15.2 ug/ml (11-39)
--- NOTE | 2023-02-16 10:16 | P.CONPHA_ITS ---
Pharmacy Consult Date: 02/16/23 Time: 10:17 Referring provider: DR. CROWDER Reason for Consult:: VANCOMYCIN TROUGH LEVEL Allergies Allergy/AdvReac Type Severity Reaction Status Date / Time metoclopramide [From REGLAN] Allergy Mild I-RASH Verified 01/02/23 14:26 Sulfa (Sulfonamide Allergy Mild I-RASH Verified 01/02/23 14:26 Antibiotics) [SULFA (SULFONAMIDE ANTIBIOTICS)] morphine Allergy Vomiting Verified 01/02/23 14:26 Home Medications Medication Instructions Recorded Confirmed Type cyanocobalamin (vitamin B-12) 1,000 mcg IM MONTHLY Supplement 11/04/18 02/14/23 History 1,000 mcg/mL injection solution linaclotide 72 mcg capsule 72 mcg PO DAILY IBS 11/04/18 02/14/23 History (Linzess) cholecalciferol (vitamin D3) 50 2,000 unit PO DAILY Supplement 10/11/19 02/14/23 History mcg (2,000 unit) tablet sertraline 100 mg tablet 200 mg PO DAILY mood #60 tabs 01/20/23 02/14/23 Rx levothyroxine 200 mcg tablet 200 mcg PO DAILY THYROID 02/14/23 02/14/23 History omeprazole 40 mg capsule,delayed 40 mg PO DAILY Acid reflux 02/14/23 02/14/23 History release gabapentin 100 mg capsule 100 mg PO BID neuropathy 02/15/23 02/15/23 History New Prescriptions to Start Prescriptions: Height: 1.68 m Weight: 64.495 kg Laboratory Results:: Laboratory Results - last 24 hr 02/16/23 01:41: Vancomycin Trough 12.1 H 02/16/23 07:00: Vancomycin Peak 15.2 02/16/23 07:00: WBC 8.2, RBC 4.09 L, Hgb 10.3 L, Hct 32.4 L, MCV 79.2 L, MCH 25.2 L, MCHC 31.9, RDW 15.4, Plt Count 199, MPV 9.1, Neut % (Auto) 87.7 H, Lymph % (Auto) 7.9 L, [place] % (Auto) 3.6, Eos % (Auto) 0.7, Baso % (Auto) 0.1, Neut # (Auto) 7.2, Lymph # (Auto) 0.7, [place] # (Auto) 0.3, Eos # (Auto) 0.1, Baso # (Auto) 0.0 02/16/23 07:00: Sodium 138, Potassium 2.5 L* D, Chloride 99, Carbon Dioxide 30, Anion Gap 11.5, BUN 16 D, Creatinine 0.60, Estimated Creat Clear 58, Estimated GFR 101, Est GFR ( Amer) 122, Glucose 108 H, Calcium 7.3 L Medical History: Medical History (Updated 02/15/23 @ 07:48 by Luis Crowder MD) Depression Generalized anxiety disorder GERD (gastroesophageal reflux disease) History of hypertension Hyperlipidemia Neurogenic bladder New onset seizure Osteoporosis Physical debility Assessment and Plan Assessment and plan all Dx Assessment and Plan for all problems:: BASED ON PATIENT FACTORS AND VANCOMYCIN TROUGH LEVEL OF 12.1, RECOMMEND CONTINUING CURRENT VANCOMYCIN DOSE AT 1,000MG EVERY 12 HOURS. PHARMACY WILL CONTINUE TO MONITOR. -JEFF NARVAEZ, KENNETHD
--- NOTE | 2023-02-16 10:53 | PC.NURSE ---
courtesy tech note: pt is sitting up in bed with call light within reach. no requests voiced at this time.
[2023-02-16 11:06] VITALS: BP 106/55; PULSE 87; RESP 18; TEMP 36.6; O2SAT 95
[2023-02-16 11:26] LABS: Lymphocytes % 14 % (10-50); Microcytosis 1+; Monocytes % 4 % (2-9); Neutrophils % 82 % (42-76); Platelet Estimate Normal; Total Cells Counted 100
[2023-02-16 11:27] LABS: Hypochromasia 1+
--- NOTE | 2023-02-16 11:53 | PC.NURSE ---
got pt up to chair this am which she tolerated well. assist x2. wound vac in place. RLA is warm and dressing is intact.
[2023-02-16 14:56] VITALS: BMI 22.8
[2023-02-16 15:04] VITALS: BP 133/69; PULSE 97; RESP 18; TEMP 36.5; O2SAT 95
[2023-02-16 20:00] VITALS: BP 118/81; PULSE 109; RESP 20; TEMP 37.1; O2SAT 91
[2023-02-17] VITALS (7 sets, daily range): BP systolic 109–134; BP diastolic 54–72; PULSE 91–104; RESP 18–20; TEMP 36.4–37.2; O2SAT 93–96; BMI 23.1
[2023-02-17 06:12] LABS: Basophils % 0.4 % (0.1-2.0); Eosinophils # 0.1 K/mm3 (0.0-0.4); Eosinophils % 0.9 % (0.1-12.0); Hematocrit 30.5 % (37.0-47.0); Hemoglobin 9.9 g/dL (12.2-16.2); Lymphocytes # 1.1 K/mm3 (0.7-4.5); Lymphocytes % 13.1 % (10-50); Mean Corpuscular HGB Conc 32.6 g/dL (31.8-35.4); Mean Corpuscular Hemoglobin 26.1 pg (27.0-31.2); Monocytes # 0.4 K/mm3 (0.1-1.0); Monocytes % 4.1 % (1.7-9.3); Neutrophils # 6.9 K/mm3 (1.8-7.8); Neutrophils % 81.4 % (37.0-80.0); Platelet Count 201 K/mm3 (142-424); Red Blood Count 3.81 M/mm3 (4.20-5.40); Red Cell Distribution Width 15.6 % (11.5-17.5); White Blood Count 8.5 K/mm3 (4.8-10.8)
[2023-02-17 06:20] LABS: Chloride 100 mmol/L (98-107); Sodium 139 mmol/L (136-145)
[2023-02-17 06:22] LABS: Alanine Aminotransferase 24 U/L (12-78); Aspartate Amino Transferase 29 U/L (14-36); Blood Urea Nitrogen 12 mg/dl (7-17); Creatinine Clearance Estimated 59 mL/min (50-200); Estimated Glomerular Filt Rate 101 ml/min (>60); GFR (African American) 122 ML/MIN (>60)
[2023-02-17 06:23] LABS: Albumin Level 2.7 g/dl (3.5-5.0); Albumin/Globulin Ratio 0.8 (1.1-1.8); Alkaline Phosphatase 65 U/L (38-126); Bilirubin,Total 0.2 mg/dl (0.2-1.3); Calcium 7.6 mg/dl (8.4-10.2); Carbon Dioxide 30 mmol/L (22.0-30.0); Globulin 3.3 g/dL (1.3-3.2); Glucose 99 mg/dl (74-100)
--- NOTE | 2023-02-17 07:12 | EXP.ANES.II ---
[facility] Anesthesia Record Part II Anesthesia Record Part II Discharge Time: 20:30 (02/14/23) Destination: Medical Surgical Department PACU nurse assessment reviewed?: Yes Patient Condition:: Good Anesthesia Complications:: None Swallowing reflex intact?: Yes Cyanosis?: No Blood Pressure: 111/64 Pulse Rate: 94 Temperature: 97.5 F Mental Status: Alert & Oriented Pain level:: 0 Nausea and/or vomitting:: None Intake, IV Amount: 0
--- NOTE | 2023-02-17 08:12 | EXP.PHA.PN ---
Subjective *Date: 02/17/23 *Time: 08:12 Medical Exam Vital signs and Labs for Last 24 Hours: Vital Signs Temp Pulse Resp BP Pulse Ox 02/17/23 04:00 98.9 F 94 H 18 111/68 93 L 02/17/23 00:00 98.4 F 96 H 20 126/70 94 L 02/16/23 20:00 98.8 F 109 H 20 118/81 91 L 02/16/23 15:04 97.7 F 97 H 18 133/69 95 02/16/23 11:06 97.8 F 87 18 106/55 L 95 Intake and Output 02/16/23 02/17/23 02/17/23 23:59 07:59 15:59 Intake Total 990 / 2113 0 / 0 Output Total 575 / 575 0 / 575 Balance 990 / 238 -575 / -575 0 / -575 Intake: Intake, Oral Amount 240 / 720 Intake, Total IV Amount 750 / 1393 0 / 0 Clindamycin Phosphate/D5w 900 100 / 200 mg In 50 ml @ 100 mls/hr IV Q8H [facility] Rx#:[id number] Dex 5% in 0.45% NaCl 1,000 ml @ 400 / 843 50 mls/hr IV .Q20H [facility] Rx#: [id number] Vancomycin HCl 1,000 mg In 0.9 250 / 250 % Sodium Chloride 250 ml @ 125 mls/hr IV Q12H [facility] Rx#:[id number] Output: Output, Urine Amount 575 / 575 0 / 575 Other: Number of Unmeasured Voids 0 1 Number of Bowel Movements 1 Weight 65.402 kg Patient Weight 02/17/23 23:59 Weight 65.402 kg Laboratory Results - last 24 hr 02/16/23 07:00: Vancomycin Peak 15.2 02/16/23 07:00: Total Counted 100, Neutrophils % (Manual) 82 H, Lymphocytes % (Manual) 14, Monocytes % (Manual) 4, Platelet Estimate Normal, Hypochromasia 1+, Microcytosis 1+ 02/17/23 05:49: WBC 8.5, RBC 3.81 L, Hgb 9.9 L, Hct 30.5 L, MCV 80.0 L, MCH 26.1 L, MCHC 32.6, RDW 15.6, Plt Count 201, MPV 9.0, Neut % (Auto) 81.4 H, Lymph % (Auto) 13.1, [place] % (Auto) 4.1, Eos % (Auto) 0.9, Baso % (Auto) 0.4, Neut # (Auto) 6.9, Lymph # (Auto) 1.1, [place] # (Auto) 0.4, Eos # (Auto) 0.1, Baso # (Auto) 0.0 02/17/23 05:49: Sodium 139, Potassium 3.0 L, Chloride 100, Carbon Dioxide 30, Anion Gap 12.0, BUN 12, Creatinine 0.60, Estimated Creat Clear 59, Estimated GFR 101, Est GFR ( Amer) 122, Glucose 99, Calcium 7.6 L, Total Bilirubin 0.2, AST 29 D, ALT 24, Alkaline Phosphatase 65, Total Protein 6.0 L, Albumin 2.7 L, Globulin 3.3 H, Albumin/Globulin Ratio 0.8 L I & O for Labs for Last 24 Hours: Intake & Output 02/14/23 02/15/23 02/16/23 02/17/23 23:59 23:59 23:59 23:59 Intake Total 650 / 650 1106 / 1106 2113 / 2113 0 / 0 Output Total 550 / 550 1210 / 1210 1300 / 1875 575 / 575 Balance 100 / 100 -104 / -104 813 / 238 -575 / -575 Weight 62.312 kg 64.864 kg 64.49 kg 65.402 kg Microbiology Reports for the Last 24 Hours: Microbiology 02/14/23 19:30 Knee,Right - Wound Gram Stain - Final 02/14/23 19:30 Knee,Right - Wound Wound Culture - Final Staphylococcus aureus 02/14/23 12:00 Knee,Right Gram Stain - Final 02/14/23 12:00 Knee,Right Wound Culture - Final Staphylococcus aureus 02/14/23 12:20 Blood Blood Culture - Final Staphylococcus aureus 02/14/23 12:00 Blood Blood Culture - Final Staphylococcus aureus The patient's infection will respond to the chosen ABx?: Yes (CULTURE PENDING) Is the patient receiving the right drug, dose, and route?: Yes Could a more targeted ABx be ordered?: No (EMPIRIC THERAPY UNTIL CULTURE COMPLETE)
--- NOTE | 2023-02-17 08:30 | EXP.ACUTE.PN ---
Subjective *Date: 02/17/23 *Time: 08:30 Interval history: Patient had a smooth 24 hours. She is currently having PICC line placed for ongoing IV antibiotics. Culture results from repeat blood cultures remain negative. She continues to tolerate clindamycin and vancomycin well. Labs and vital signs have been reviewed. Patient had a bowel movement this morning that apparently the nurses are unaware of because her tells me that he tried to clean her up himself. Medical Exam Vital signs and Labs for Last 24 Hours: Vital Signs Temp Pulse Resp BP Pulse Ox 02/17/23 04:00 98.9 F 94 H 18 111/68 93 L 02/17/23 00:00 98.4 F 96 H 20 126/70 94 L 02/16/23 20:00 98.8 F 109 H 20 118/81 91 L 02/16/23 15:04 97.7 F 97 H 18 133/69 95 02/16/23 11:06 97.8 F 87 18 106/55 L 95 Intake and Output 02/16/23 02/17/23 02/17/23 19:59 03:59 11:59 Intake Total 480 / 1230 750 / 1230 0 / 1230 Output Total 600 / 1175 575 / 1175 0 / 1175 Balance -120 / 55 175 / 55 0 / 55 Intake: Intake, Oral Amount 480 / 480 Intake, Total IV Amount 750 / 750 0 / 750 Clindamycin Phosphate/D5w 900 100 / 100 mg In 50 ml @ 100 mls/hr IV Q8H [facility] Rx#:[id number] Dex 5% in 0.45% NaCl 1,000 ml @ 400 / 400 50 mls/hr IV .Q20H [facility] Rx#: [id number] Vancomycin HCl 1,000 mg In 0.9 250 / 250 % Sodium Chloride 250 ml @ 125 mls/hr IV Q12H [facility] Rx#:[id number] Output: Output, Urine Amount 600 / 1175 575 / 1175 0 / 1175 Other: Number of Unmeasured Voids 0 0 1 Number of Bowel Movements 1 Weight 142 lb 2.818 oz 144 lb 3 oz Patient Weight 02/17/23 11:59 Weight 144 lb 3 oz Laboratory Results - last 24 hr 02/16/23 07:00: Vancomycin Peak 15.2 02/16/23 07:00: Total Counted 100, Neutrophils % (Manual) 82 H, Lymphocytes % (Manual) 14, Monocytes % (Manual) 4, Platelet Estimate Normal, Hypochromasia 1+, Microcytosis 1+ 02/17/23 05:49: WBC 8.5, RBC 3.81 L, Hgb 9.9 L, Hct 30.5 L, MCV 80.0 L, MCH 26.1 L, MCHC 32.6, RDW 15.6, Plt Count 201, MPV 9.0, Neut % (Auto) 81.4 H, Lymph % (Auto) 13.1, [place] % (Auto) 4.1, Eos % (Auto) 0.9, Baso % (Auto) 0.4, Neut # (Auto) 6.9, Lymph # (Auto) 1.1, [place] # (Auto) 0.4, Eos # (Auto) 0.1, Baso # (Auto) 0.0 02/17/23 05:49: Sodium 139, Potassium 3.0 L, Chloride 100, Carbon Dioxide 30, Anion Gap 12.0, BUN 12, Creatinine 0.60, Estimated Creat Clear 59, Estimated GFR 101, Est GFR ( Amer) 122, Glucose 99, Calcium 7.6 L, Total Bilirubin 0.2, AST 29 D, ALT 24, Alkaline Phosphatase 65, Total Protein 6.0 L, Albumin 2.7 L, Globulin 3.3 H, Albumin/Globulin Ratio 0.8 L I & O for Labs for Last 24 Hours: Intake & Output 02/14/23 02/15/23 02/16/23 02/17/23 11:59 11:59 11:59 11:59 Intake Total 1276 / 1276 1363 / 1363 1230 / 1230 Output Total 750 / 750 1710 / 1710 1175 / 1175 Balance 526 / 526 -347 / -347 55 / 55 Weight 143 lb 142 lb 3 oz 144 lb 3 oz Microbiology Reports for the Last 24 Hours: Microbiology 02/14/23 19:30 Knee,Right - Wound Gram Stain - Final 02/14/23 19:30 Knee,Right - Wound Wound Culture - Final Staphylococcus aureus 02/14/23 12:00 Knee,Right Gram Stain - Final 02/14/23 12:00 Knee,Right Wound Culture - Final Staphylococcus aureus 02/14/23 12:20 Blood Blood Culture - Final Staphylococcus aureus 02/14/23 12:00 Blood Blood Culture - Final Staphylococcus aureus Comment:: Alert, pleasant. Afebrile. Vital signs of been normal. Lungs are clear, heart rate regular. Abdomen soft, previously noted spasticity and neurologic deficits from her CPR unchanged. Wound VAC dressing is clean/dry/intact, foot distally to the dressing is without edema and good distal pulses. No red streaking. Assessment and Plan *Assessment and plan (1) Cellulitis of right lower extremity: Problem Comment: Inf
--- NOTE | 2023-02-17 08:30 | DIET.NUTRFU ---
reported BM this AM and takes linaclotide at home and will restart. She has had fair po intake 50% at most meals. She is noted to have a wound to right kiran, see wound care note. It is noted to have +3 edema and yellow drainage. Looking for placement that can take care of wound. Will review and encourage protein intake. Labs reviewed
--- NOTE | 2023-02-17 08:33 | SW/DCPLANNER ---
Addendum entered by [facility] 02/21/23 11:54: I have updated [facility] that patient is ready for discharge. Addendum entered by [facility] 02/21/23 07:50: Patient stated during morning rounds with Dr Henderson that she prefer to return home w/ family and return to [facility] outpatient for IV antibiotics and wound care/vac changes. Dr Henderson and I have encouraged patient that placement would be best option: patient refuses placement at this time. Davey waite/ [facility] (patient is currently established w/ their services) is willing to assist with transportation to outpatient [facility] services. The plan for this patient is to discharge home today. I will update [facility] at patient's request. Addendum entered by [facility] 02/20/23 14:23: Savanah waite/ [facility] stated that patient information has been sent to MD for review. Addendum entered by [facility] 02/19/23 15:14: Patient and family are interested in returning home and coming back to [facility] outpatient services for IV antibiotics and wound vac care. Davey waite/ [facility] stated that she is willing to assist with at home needs/transportation for this patient. Per Dr Henderson final blood cultures will be back tomorrow and will determine IV antibiotic needed. I will continue to follow up with patient/family and MD. Addendum entered by [facility] 02/19/23 12:08: [facility] is not able to accept this patient. Information has been faxed to Thi waite/ [facility]. Addendum entered by [facility] 02/19/23 11:15: [facility] and [facility] are not able to accept this referral. Aliyah waite/ [facility] is reviewing information. Addendum entered by [facility] 02/19/23 09:19: Patient information has also been faxed to Gisselle waite/ [facility]. Patient is agreeable to all facilities. Addendum entered by [facility] 02/19/23 08:56: [facility] is still reviewing patient information at this time. I have also faxed information to [facility] and [facility]. I will continue to update MD and patient/family. Addendum entered by [facility] 02/18/23 11:18: Updated patient information has been faxed to Savanah waite/ [facility]. Addendum entered by Colleen Benítez 02/18/23 07:59: Savanah waite/ [facility] stated that information has been sent to MD for review. Addendum entered by Colleen Benítez 02/17/23 13:55: Savanah waite/ [facility] has sent in information for acute admission. I will continue to follow up with Savanah, patient/family and MD. Original Note: Patient will require wound care and IV antibiotics at time of discharge. Dr Henderson did have a discussion w/ patient's this AM regarding discharge plans. [facility] was suggested at time of discharge and is agreeable: patient information will be faxed this AM. If [facility] can NOT accept patient would benefit from [facility] level of care due to Medicaid insurance. I will continue to follow up with patient/family, and [facility].
--- NOTE | 2023-02-17 08:39 | XR_ITS ---
FINAL REPORT CLINICAL HISTORY: PICC line placement COMPARISON: 11/15/2022 FINDINGS: SINGLE VIEW CHEST A PICC line has been placed with its tip in the lower superior vena cava. The heart size is normal. The mediastinum is within normal limits. A small left basilar opacity is present, favor atelectasis.. There is no evidence of pneumothorax. The bony thorax is intact. IMPRESSION: PICC line is present with its tip in the lower superior vena cava. Mild left basilar atelectasis Reviewed, Interpreted and Dictated by Rick Villagomez III, MD Transcribed by Marii Segovia Authenticated and [facility]
--- NOTE | 2023-02-17 12:07 | HMH.OTEV ---
OT Inpatient Evaluation Rehab OT IP Evaluation Start: 02/17/23 08:17 Freq: ONCE Status: Active Protocol: Document 02/17/23 11:38 [email or web address] (Rec: 02/17/23 12:06 [email or web address] [id number]) Rehab OT IP Assessment Subjective History 62 yr old debilitated female seen in our outpatient clinic today, accompanied by home- patient care associate, with complaints of pain and drainage from a wound on the right lower extremity. She fell in her bathtub about 2 weeks ago but isn't really sure if injury occurred then or prior to that fall but has been present for at least 2 weeks. Has been covering at home with a bandaid but today her aide noted marked swelling and erythema extending beyond the edges of the bandaid and recommended that she come in to be evalated. She did have a fever at home, 101F, about 48 hours ago. Wound noted to have significant slough, marked erythema extending in all directions from the wound, warmth and induration with active drainage and decision was made to admit for IV antibiotics, wound care consult, cultures, and orthopedic consult for possible debridement. Please note that she is on antibiotics quite frequently due to recurrent urinary tract infections and has a history of multi-drug resistant bacteria. Patient lives in 1 story home with with ramp to enter. Patient verbalize completing transfers independently and uses a rollator to maneuver around in home. assist with ADLs at times. Subjective I can get up. Assisted Patient to complete
--- NOTE | 2023-02-17 12:38 | HMH.PTEV ---
Physical Therapy Evaluation Rehab PT IP Evaluation Start: 02/17/23 08:17 Freq: ONCE Status: Active Protocol: Document 02/17/23 12:25 LONDONHAIDER (Rec: 02/17/23 12:38 HWADE [id number]) Subjective/History History History Pt is a 62 year old female that presented to Dr. Henderson OP clinic with home-pharmacy care coordinator with reports of pain and drainage from wound on RLE. Pt fell in her bathtub ~2 weeks ago, but is unsure when the injury occured. Upon examination, wound was found to have slough, marked erythema extending in all directions from the wound, warmth and induration with active drainage and decision was made to admit for IV antibiotics, wound care consult, cultures, and orthopedic consult for possible debridement. Pt underwent debridement irrigation of right leg skin and subcutaneous tissue with Dr. Valles on 02/14/2023. Per Dr. Valles Operative note, pt to be WBAT in knee immobilizer. PMH: Depression, Generalized anxiety disorder, GERD ( gastroesophageal reflux disease), History of hypertension, Hyperlipidemia, Neurogenic bladder, New onset seizure, Osteoporosis, Physical debility Subjective Subjective Pt presents supine in bed, with RLE knee immobilizer and wound vac in place, pleasant and agreeable to therapy initial evaluation. Pt reports she is having some back pain at rest. At baseline, pt reports she lives at home with her and uses a rollator for ambulation. Pt performed supine to sit on EOB with min A x2. Pt performed SPT to bedside chair
--- NOTE | 2023-02-17 15:53 | PC.NURSE ---
Dr. Henderson's office called, left message with clinical laboratory scientist about second set of blood culture results.
--- NOTE | 2023-02-17 16:09 | PC.NURSE ---
Patient complained of chest pain that is constant, sharp in the middle of chest and radiates to the back shoulders bilaterally. Patient states she has had this pain ever since she fell in bath tub. EKG ordered. VS obtained bp 120/59 96% on room air. Pulse 105
--- NOTE | 2023-02-17 16:14 | ECG_ITS ---
APPROVED REPORT Exam: Resting ECG HR:102 bpm ECG Measurements Heart Rate 102 AXES AL 154 P 56 QRSd 104 QRS -16 QT 370 T 46 QTc 429 Conclusion SINUS TACHYCARDIA INCOMPLETE RIGHT BUNDLE BRANCH BLOCK [90+ ms QRS DURATION, TERMINAL R IN V1/V2, 40+ ms S IN I/aVL/V4/V5/V6] ABNORMAL RHYTHM ECG UNCONFIRMED REPORT Electronically signed by : Luis Henderson MD 02/18/2023 20:09:20
--- NOTE | 2023-02-17 17:30 | PC.NURSE ---
Patient able to sit in chair for most of shift. VS stable and pt remained on room air. Wound vac in place, no clog or leak noted in tubing. Patient complained of chest p[ain, ekg obtained, taken to ER doctor to read. Compared to original, no changes, no new orders. PRN pain medications given, some relief noted.
[2023-02-18] VITALS: BP 145/56; PULSE 118; RESP 18; TEMP 36.9; O2SAT 95
[2023-02-18 04:00] VITALS: BP 97/67; PULSE 106; RESP 18; TEMP 36.9; O2SAT 94; BMI 23.1
[2023-02-18 06:27] LABS: Basophils % 0.4 % (0.1-2.0); Eosinophils # 0.1 K/mm3 (0.0-0.4); Eosinophils % 1.3 % (0.1-12.0); Hematocrit 32.4 % (37.0-47.0); Hemoglobin 10.1 g/dL (12.2-16.2); Lymphocytes % 10.6 % (10-50); Mean Corpuscular HGB Conc 31.1 g/dL (31.8-35.4); Mean Corpuscular Hemoglobin 25.1 pg (27.0-31.2); Mean Corpuscular Volume 80.6 fl (81-99); Mean Platelet Volume 8.6 fl (7.4-10.4); Monocytes # 0.4 K/mm3 (0.1-1.0); Monocytes % 4.4 % (1.7-9.3); Neutrophils # 7.9 K/mm3 (1.8-7.8); Neutrophils % 83.4 % (37.0-80.0); Platelet Count 226 K/mm3 (142-424); Red Blood Count 4.02 M/mm3 (4.20-5.40); Red Cell Distribution Width 15.6 % (11.5-17.5); White Blood Count 9.5 K/mm3 (4.8-10.8)
[2023-02-18 06:32] LABS: Chloride 103 mmol/L (98-107); Potassium 3.8 mmoL/L (3.5-5.1); Sodium 139 mmol/L (136-145)
[2023-02-18 06:35] LABS: Alanine Aminotransferase 20 U/L (12-78); Albumin Level 2.5 g/dl (3.5-5.0); Albumin/Globulin Ratio 0.7 (1.1-1.8); Alkaline Phosphatase 64 U/L (38-126); Anion Gap 8.8 mEq/L (5-15); Aspartate Amino Transferase 27 U/L (14-36); Bilirubin,Total 0.3 mg/dl (0.2-1.3); Blood Urea Nitrogen 12 mg/dl (7-17); Calcium 7.6 mg/dl (8.4-10.2); Carbon Dioxide 31 mmol/L (22.0-30.0); Creatinine Clearance Estimated 59 mL/min (50-200); Estimated Glomerular Filt Rate 101 ml/min (>60); GFR (African American) 122 ML/MIN (>60); Globulin 3.4 g/dL (1.3-3.2); Glucose 94 mg/dl (74-100); Total Protein,Serum 5.9 g/dl (6.3-8.2)
[2023-02-18 08:00] VITALS: BP 122/73; PULSE 105; RESP 20; TEMP 36.6; O2SAT 95
--- NOTE | 2023-02-18 08:22 | EXP.ACUTE.PN ---
Subjective *Date: 02/18/23 *Time: 08:22 Interval history: Patient feels better this morning. Is actually wishing to go home. She does complain of some back pain because of the hospital bed situation, is on her regular pain medications here in the hospital. Medical Exam Vital signs and Labs for Last 24 Hours: Vital Signs Temp Pulse Resp BP Pulse Ox 02/18/23 04:00 98.5 F 106 H 18 97/67 L 94 L 02/18/23 00:00 98.4 F 118 H 18 145/56 H 95 02/17/23 20:00 98.4 F 104 H 18 120/72 94 L 02/17/23 16:00 98.9 F 104 H 18 109/69 L 96 02/17/23 12:00 97.9 F 91 H 20 110/54 L 95 02/17/23 10:05 98.6 F 94 H 18 134/63 94 L Intake and Output 02/17/23 02/18/23 02/18/23 19:59 03:59 11:59 Intake Total 1100 / 1850 750 / 1850 Output Total 0 / 0 Balance 1100 / 1850 750 / 1850 Intake: Intake, Oral Amount 480 / 480 Intake, Total IV Amount 620 / 1370 750 / 1370 Clindamycin Phosphate/D5w 900 100 / 200 100 / 200 mg In 50 ml @ 100 mls/hr IV Q8H [facility] Rx#:[id number] Dex 5% in 0.45% NaCl 1,000 ml @ 270 / 670 400 / 670 50 mls/hr IV .Q20H [facility] Rx#: [id number] Vancomycin HCl 1,000 mg In 0.9 250 / 500 250 / 500 % Sodium Chloride 250 ml @ 125 mls/hr IV Q12H [facility] Rx#:[id number] Output: Output, Urine Amount 0 / 0 Other: Number of Unmeasured Voids 1 1 Number of Bowel Movements 1 Weight 144 lb 4 oz Patient Weight 02/18/23 11:59 Weight 144 lb 4 oz Laboratory Results - last 24 hr 02/18/23 05:50: WBC 9.5, RBC 4.02 L, Hgb 10.1 L, Hct 32.4 L, MCV 80.6 L, MCH 25.1 L, MCHC 31.1 L, RDW 15.6, Plt Count 226, MPV 8.6, Neut % (Auto) 83.4 H, Lymph % (Auto) 10.6, [place] % (Auto) 4.4, Eos % (Auto) 1.3, Baso % (Auto) 0.4, Neut # (Auto) 7.9 H, Lymph # (Auto) 1.0, [place] # (Auto) 0.4, Eos # (Auto) 0.1, Baso # (Auto) 0.0 02/18/23 05:50: Sodium 139, Potassium 3.8 D, Chloride 103, Carbon Dioxide 31 H, Anion Gap 8.8, BUN 12, Creatinine 0.60, Estimated Creat Clear 59, Estimated GFR 101, Est GFR ( Amer) 122, Glucose 94, Calcium 7.6 L, Total Bilirubin 0.3, AST 27, ALT 20, Alkaline Phosphatase 64, Total Protein 5.9 L, Albumin 2.5 L, Globulin 3.4 H, Albumin/Globulin Ratio 0.7 L I & O for Labs for Last 24 Hours: Intake & Output 02/15/23 02/16/23 02/17/23 02/18/23 11:59 11:59 11:59 11:59 Intake Total 1276 / 1276 1363 / 1363 1470 / 1470 1850 / 1850 Output Total 750 / 750 1710 / 1710 1805 / 1805 0 / 0 Balance 526 / 526 -347 / -347 -335 / -335 1850 / 1850 Weight 143 lb 142 lb 3 oz 144 lb 3 oz 144 lb 4 oz Microbiology Reports for the Last 24 Hours: Microbiology 02/16/23 07:00 Blood Blood Culture - Preliminary 02/14/23 19:30 Knee,Right - Wound - Final 02/14/23 19:30 Knee,Right - Wound - Final 02/14/23 19:30 Knee,Right - Wound - Final Comment:: Alert, pleasant. Afebrile. Vital signs of been normal. Lungs are clear, heart rate regular. Abdomen soft, previously noted spasticity and neurologic deficits from her CPR unchanged. Wound VAC dressing is clean/dry/intact, foot distally to the dressing is without edema and good distal pulses. No red streaking. Assessment and Plan *Assessment and plan (1) Cellulitis of right lower extremity: Problem Comment: Inflammatory markers markedly elevated, normal WBC, initial lactate normal. Plain imaging negative. Consult orthopedics, pharmacy for antibiotic dosing and PT for wound care. Start IV clindamycin, vancomycin and cefepime until cultures are available. Regular diet following orthopedic consult and pending their recommendations Activity as tolerated Status: Acute Category: Medical Code(s): L03.115 - Cellulitis of right lower limb (2) Wound of right lower extremity: Status: Acute Category: Medical Code(s): S81.801A - Unspecified open wound, right lower leg, initial encounter (3) Physical debility: Status: Acute Category: Me
--- NOTE | 2023-02-18 11:11 | PC.NURSE ---
ruchi talavera round on pt, took pt a drink. no other concerns or needs at this time
[2023-02-18 12:00] VITALS: BP 112/79; PULSE 97; RESP 18; TEMP 36.9; O2SAT 94
[2023-02-18 16:00] VITALS: BP 120/74; PULSE 99; RESP 16; TEMP 37.2; O2SAT 95
[2023-02-18 16:48] LABS: Vancomycin,Trough 5.9 ug/mL (5.0-10.0)
[2023-02-18 19:43] LABS: Vancomycin,Peak 5.4 ug/ml (11-39)
[2023-02-18 20:00] VITALS: BP 126/68; PULSE 95; RESP 18; TEMP 36.9; O2SAT 94
[2023-02-19] VITALS: BP 110/75; PULSE 102; RESP 18; TEMP 37.2; O2SAT 94
[2023-02-19 04:00] VITALS: BP 138/73; PULSE 90; RESP 18; TEMP 36.3; O2SAT 94; BMI 23.5
[2023-02-19 06:17] LABS: Basophils % 0.4 % (0.1-2.0); Eosinophils # 0.1 K/mm3 (0.0-0.4); Eosinophils % 1.7 % (0.1-12.0); Hematocrit 31.8 % (37.0-47.0); Hemoglobin 9.6 g/dL (12.2-16.2); Lymphocytes # 0.8 K/mm3 (0.7-4.5); Mean Corpuscular HGB Conc 30.3 g/dL (31.8-35.4); Mean Corpuscular Hemoglobin 24.7 pg (27.0-31.2); Mean Corpuscular Volume 81.7 fl (81-99); Mean Platelet Volume 8.9 fl (7.4-10.4); Monocytes # 0.2 K/mm3 (0.1-1.0); Monocytes % 2.8 % (1.7-9.3); Neutrophils # 6.8 K/mm3 (1.8-7.8); Neutrophils % 85.1 % (37.0-80.0); Platelet Count 257 K/mm3 (142-424); Red Blood Count 3.89 M/mm3 (4.20-5.40); Red Cell Distribution Width 15.7 % (11.5-17.5); White Blood Count 7.9 K/mm3 (4.8-10.8)
[2023-02-19 06:19] LABS: MANUAL DIFFERENTIAL MANUAL DIFFERENTIAL (MANUAL DIFF)
[2023-02-19 06:27] LABS: Anion Gap 12.3 mEq/L (5-15); Blood Urea Nitrogen 13 mg/dl (7-17); Calcium 7.7 mg/dl (8.4-10.2); Carbon Dioxide 26 mmol/L (22.0-30.0); Chloride 105 mmol/L (98-107); Creatinine Clearance Estimated 60 mL/min (50-200); Estimated Glomerular Filt Rate 101 ml/min (>60); GFR (African American) 122 ML/MIN (>60); Glucose 124 mg/dl (74-100); Potassium 4.3 mmoL/L (3.5-5.1); Sodium 139 mmol/L (136-145)
[2023-02-19 07:35] LABS: Eosinophils % 3 % (0-3); Hypochromasia 2+; Lymphocytes % 11 % (10-50); Monocytes % 5 % (2-9); Neutrophils % 81 % (42-76); Platelet Estimate Normal; Total Cells Counted 100
[2023-02-19 08:00] VITALS: BP 138/85; PULSE 117; RESP 18; TEMP 37; O2SAT 94
--- NOTE | 2023-02-19 08:44 | EXP.ACUTE.PN ---
Subjective *Date: 02/19/23 *Time: 08:44 Interval history: Patient feels about the same. Sitting up on the side of the bed, has mild nausea. No fevers. Awaiting results of blood cultures from yesterday. Medical Exam Vital signs and Labs for Last 24 Hours: Vital Signs Temp Pulse Resp BP Pulse Ox 02/19/23 08:00 98.6 F 117 H 18 138/85 94 L 02/19/23 04:00 97.4 F L 90 18 138/73 94 L 02/19/23 00:00 99.0 F 102 H 18 110/75 94 L 02/18/23 20:00 98.5 F 95 H 18 126/68 94 L 02/18/23 16:00 99 F 99 H 16 120/74 95 02/18/23 12:00 98.4 F 97 H 18 112/79 94 L Intake and Output 02/18/23 02/19/23 02/19/23 19:59 03:59 11:59 Intake Total 360 / 1330 970 / 1330 Output Total 500 / 500 Balance 360 / 830 470 / 830 Intake: Intake, Oral Amount 360 / 480 120 / 480 Intake, Total IV Amount 850 / 850 Clindamycin Phosphate/D5w 900 100 / 100 mg In 50 ml @ 100 mls/hr IV Q8H [facility] Rx#:[id number] Dex 5% in 0.45% NaCl 1,000 ml @ 500 / 500 50 mls/hr IV .Q20H [facility] Rx#: [id number] Vancomycin HCl 1,000 mg In 0.9 250 / 250 % Sodium Chloride 250 ml @ 125 mls/hr IV Q12H [facility] Rx#:[id number] Output: Output, Urine Amount (Catheter) 500 / 500 Straight 500 / 500 Other: Number of Bowel Movements 1 Weight 146 lb 5 oz Patient Weight 02/19/23 11:59 Weight 146 lb 5 oz Laboratory Results - last 24 hr 02/18/23 16:00: Vancomycin Trough 5.9 02/18/23 19:00: Vancomycin Peak 5.4 L 02/19/23 05:55: WBC 7.9, RBC 3.89 L, Hgb 9.6 L, Hct 31.8 L, MCV 81.7, MCH 24.7 L, MCHC 30.3 L, RDW 15.7, Plt Count 257, MPV 8.9, Neut % (Auto) 85.1 H, Lymph % (Auto) 10.0, [place] % (Auto) 2.8, Eos % (Auto) 1.7, Baso % (Auto) 0.4, Neut # (Auto) 6.8, Lymph # (Auto) 0.8, [place] # (Auto) 0.2, Eos # (Auto) 0.1, Baso # (Auto) 0.0, Total Counted 100, Neutrophils % (Manual) 81 H, Lymphocytes % (Manual) 11, Monocytes % (Manual) 5, Eosinophils % (Manual) 3, Platelet Estimate Normal, Hypochromasia 2+ 02/19/23 05:55: Sodium 139, Potassium 4.3, Chloride 105, Carbon Dioxide 26, Anion Gap 12.3, BUN 13, Creatinine 0.60, Estimated Creat Clear 60, Estimated GFR 101, Est GFR ( Amer) 122, Glucose 124 H, Calcium 7.7 L I & O for Labs for Last 24 Hours: Intake & Output 02/16/23 02/17/23 02/18/23 02/19/23 11:59 11:59 11:59 11:59 Intake Total 1363 / 1363 1470 / 1470 2450 / 2450 1330 / 1330 Output Total 1710 / 1710 1805 / 1805 0 / 0 500 / 500 Balance -347 / -347 -335 / -335 2450 / 2450 830 / 830 Weight 142 lb 3 oz 144 lb 3 oz 144 lb 4 oz 146 lb 5 oz Microbiology Reports for the Last 24 Hours: Microbiology 02/16/23 09:47 Blood Blood Culture - Preliminary Gram Positive Cocci 02/16/23 07:00 Blood Blood Culture - Preliminary Staphylococcus aureus Comment:: Alert, pleasant. Afebrile. Vital signs of been normal. Lungs are clear, heart rate regular. Abdomen soft, previously noted spasticity and neurologic deficits from her CPR unchanged. Wound VAC dressing is clean/dry/intact, foot distally to the dressing is without edema and good distal pulses. No red streaking. Assessment and Plan *Assessment and plan (1) Cellulitis of right lower extremity: Problem Comment: Inflammatory markers markedly elevated, normal WBC, initial lactate normal. Plain imaging negative. Consult orthopedics, pharmacy for antibiotic dosing and PT for wound care. Start IV clindamycin, vancomycin and cefepime until cultures are available. Regular diet following orthopedic consult and pending their recommendations Activity as tolerated Status: Acute Category: Medical Code(s): L03.115 - Cellulitis of right lower limb (2) Wound of right lower extremity: Status: Acute Category: Medical Code(s): S81.801A - Unspecified open wound, right lower leg, initial encounter (3) Physical debility: Statu
--- NOTE | 2023-02-19 11:15 | P.CONPHA_ITS ---
Pharmacy Consult Date: 02/19/23 Time: 11:15 Referring provider: DR. CROWDER Reason for Consult:: VANCOMYCIN TROUGH LEVEL AND DOSE CHANGE Allergies Allergy/AdvReac Type Severity Reaction Status Date / Time metoclopramide [From REGLAN] Allergy Mild I-RASH Verified 01/02/23 14:26 Sulfa (Sulfonamide Allergy Mild I-RASH Verified 01/02/23 14:26 Antibiotics) [SULFA (SULFONAMIDE ANTIBIOTICS)] morphine Allergy Vomiting Verified 01/02/23 14:26 Home Medications Medication Instructions Recorded Confirmed Type cyanocobalamin (vitamin B-12) 1,000 mcg IM MONTHLY Supplement 11/04/18 02/14/23 History 1,000 mcg/mL injection solution linaclotide 72 mcg capsule 72 mcg PO DAILY IBS 11/04/18 02/14/23 History (Linzess) cholecalciferol (vitamin D3) 50 2,000 unit PO DAILY Supplement 10/11/19 02/14/23 History mcg (2,000 unit) tablet sertraline 100 mg tablet 200 mg PO DAILY mood #60 tabs 01/20/23 02/14/23 Rx levothyroxine 200 mcg tablet 200 mcg PO DAILY THYROID 02/14/23 02/14/23 History omeprazole 40 mg capsule,delayed 40 mg PO DAILY Acid reflux 02/14/23 02/14/23 History release gabapentin 100 mg capsule 100 mg PO BID neuropathy 02/15/23 02/15/23 History New Prescriptions to Start Prescriptions: Height: 1.68 m Weight: 66.366 kg Laboratory Results:: Laboratory Results - last 24 hr 02/18/23 16:00: Vancomycin Trough 5.9 02/18/23 19:00: Vancomycin Peak 5.4 L 02/19/23 05:55: WBC 7.9, RBC 3.89 L, Hgb 9.6 L, Hct 31.8 L, MCV 81.7, MCH 24.7 L , MCHC 30.3 L, RDW 15.7, Plt Count 257, MPV 8.9, Neut % (Auto) 85.1 H, Lymph % (Auto) 10.0, [place] % (Auto) 2.8, Eos % (Auto) 1.7, Baso % (Auto) 0.4, Neut # (Auto) 6.8, Lymph # (Auto) 0.8, [place] # (Auto) 0.2, Eos # (Auto) 0.1, Baso # (Auto) 0.0, Total Counted 100, Neutrophils % (Manual) 81 H, Lymphocytes % (Manual) 11, Monocytes % (Manual) 5, Eosinophils % (Manual) 3, Platelet Estimate Normal, Hypochromasia 2+ 02/19/23 05:55: Sodium 139, Potassium 4.3, Chloride 105, Carbon Dioxide 26, Anion Gap 12.3, BUN 13, Creatinine 0.60, Estimated Creat Clear 60, Estimated GFR 101, Est GFR ( Amer) 122, Glucose 124 H, Calcium 7.7 L Medical History: Medical History (Updated 02/15/23 @ 07:48 by Luis Crowder MD) Depression Generalized anxiety disorder GERD (gastroesophageal reflux disease) History of hypertension Hyperlipidemia Neurogenic bladder New onset seizure Osteoporosis Physical debility Assessment and Plan Assessment and plan all Dx Assessment and Plan for all problems:: BASED ON PATIENT FACTORS AND VANCOMYCIN TROUGH LEVEL OF 5.9, RECOMMEND INCREASING VANCOMYCIN DOSE TO 1,250MG EVERY 12 HOURS. PHARMACY WILL CONTINUE TO MONITOR. -JEFF NARVAEZ PHARMD
[2023-02-19 11:48] VITALS: BP 142/105; PULSE 119; RESP 20; TEMP 36.7; O2SAT 95
--- NOTE | 2023-02-19 12:25 | DIET.NUTRFU ---
patient consuming 25-50% of meals. Spoke to earlier during stay about consuming enough calories and protein to promote healing. She has a right knee cellulites ulcer, waiting on cultures. Her meal intake is not meeting needs, will start ensure with meals to help meet needs if consumed.
[2023-02-19 16:00] VITALS: BP 132/73; PULSE 116; RESP 18; TEMP 36.6; O2SAT 97
--- NOTE | 2023-02-19 18:29 | PC.NURSE ---
A&OX4. RESPIRATIONS REGULAR AND UNLABORED. PT HAS REMAINED ON RA THROUGHOUT SHIFT. NO COUGH NOTED. ACTIVE BOWEL SOUNDS HEARD IN ALL 4 QUADRANTS. SOFT AND NONTENDER. 2 BM REPORTED THUS FAR. LUNGS CLEAR THROUGHOUT. NO EDEMA NOTED. HAND REFRACTORY BRICKLAYER EQUAL. +2 PULSES NOTED THROUGHOUT. PT REPORTS CHRONIC BACK PAIN. SHE HAS RECEIVED TYLENOL TWICE, NORCO TWICE, AND BACLOFEN TWICE PER MAR. ON REASSESSMENT ON ALL OF THEM, PT STATES HER PAIN WAS TOLERABLE. WOUND VAC NOTED TO R KNEE. NO KINKS NOTED. D5W1/2NS INFUSING AT 50ML/HR. PT HAS RECEIVED CLINDAMYCIN, VANCOMYCIN, AND CALCIUM VIA IV THIS SHIFT AND TOLERATED WELL. PT HAS BEEN TURNED OR ENCOURAGED TO TURN SHE HAS TURNED HERSELF SOME WHEN REMINDED Q 2 HOURS DUE TO REDNESS ON HER COCCYX. PT HAS BEEN IN AND OUT CATHED THIS SHIFT TWICE THUS FAR WITH GREAT OUTPUT BOTH TIMES. PT DOES THIS AT HOME DAILY DUE TO CP. CLEAR YELLOW URINE NOTED AND STERILE TECHNIQUE USED. PT TOLERATED WELL BOTH TIMES. NO QUESTIONS OR CONCERNS VOICED THUS FAR. BED IN LOWEST POSITION. CALL LIGHT WITHIN REACH. VSS. WILL CONTINUE TO MONITOR.
[2023-02-19 19:51] VITALS: BP 104/79; PULSE 110; RESP 20; TEMP 36.7; O2SAT 93
--- NOTE | 2023-02-19 21:49 | PC.NURSE ---
tylenol given at 2119 for back pain, pt. reports some relief of pain.
[2023-02-20] VITALS: BP 127/66; PULSE 114; RESP 20; TEMP 37; O2SAT 95
[2023-02-20 04:00] VITALS: BP 121/65; PULSE 110; RESP 20; TEMP 36.6; O2SAT 95; BMI 23.5
--- NOTE | 2023-02-20 04:30 | PC.NURSE ---
pt given tylenol at 0405 for back pain, pt reports some relief of pain.
--- NOTE | 2023-02-20 05:59 | PC.NURSE ---
pt has been restless and uncomfortable throughout the shift. medicated per mar for pain with some relief of pain. pt has been straight catheterized X3 this shift. wound vac in place to right lower leg.
[2023-02-20 07:41] VITALS: BP 113/57; PULSE 117; RESP 17; TEMP 36.6; O2SAT 96
--- NOTE | 2023-02-20 08:21 | EXP.ACUTE.PN ---
Subjective *Date: 02/20/23 *Time: 08:21 Interval history: Patient states she feels better and is up in the bed eating. No fever, good p.o. intake. Medical Exam Vital signs and Labs for Last 24 Hours: Vital Signs Temp Pulse Resp BP Pulse Ox 02/20/23 07:41 97.9 F 117 H 17 113/57 L 96 02/20/23 04:00 97.9 F 110 H 20 121/65 95 02/20/23 00:00 98.6 F 114 H 20 127/66 95 02/19/23 19:51 98.1 F 110 H 20 104/79 L 93 L 02/19/23 16:00 97.9 F 116 H 18 132/73 97 02/19/23 11:48 98.0 F 119 H 20 142/105 H 95 Intake and Output 02/19/23 02/20/23 02/20/23 19:59 03:59 11:59 Intake Total 1440 / 2350 910 / 2350 Output Total 0 / 2500 1600 / 2500 900 / 2500 Balance 1440 / -150 -1600 / -150 10 / -150 Intake: Intake, Oral Amount 240 / 540 300 / 540 Intake, Total IV Amount 1200 / 1810 610 / 1810 Clindamycin Phosphate/D5w 900 100 / 100 mg In 50 ml @ 100 mls/hr IV Q8H [facility] Rx#:[id number] Dex 5% in 0.45% NaCl 1,000 ml @ 1200 / 1460 260 / 1460 50 mls/hr IV .Q20H [facility] Rx#: [id number] Vancomycin/Water For Inj (Peg) 250 / 250 1.25 gm In 250 ml @ 125 mls/hr IV Q12H [facility] Rx#:[id number] Output: Output, Urine Amount 0 / 900 900 / 900 Output, Urine Amount (Catheter) 1600 / 1600 Straight 1600 / 1600 Other: Number of Unmeasured Voids 1 Number of Bowel Movements 1 Weight 146 lb 7 oz Patient Weight 02/20/23 11:59 Weight 146 lb 7 oz I & O for Labs for Last 24 Hours: Intake & Output 02/17/23 02/18/23 02/19/23 02/20/23 11:59 11:59 11:59 11:59 Intake Total 1470 / 1470 2450 / 2450 1330 / 1330 2350 / 2350 Output Total 1805 / 1805 0 / 0 500 / 500 2500 / 2500 Balance -335 / -335 2450 / 2450 830 / 830 -150 / -150 Weight 144 lb 3 oz 144 lb 4 oz 146 lb 5 oz 146 lb 7 oz Microbiology Reports for the Last 24 Hours: Microbiology 02/14/23 19:30 Knee,Right - Wound - Final 02/14/23 19:30 Knee,Right - Wound - Final 02/14/23 19:30 Knee,Right - Wound - Final 02/14/23 19:30 Knee,Right - Wound - Final 02/16/23 09:47 Blood Blood Culture - Preliminary Gram Positive Cocci 02/16/23 07:00 Blood Blood Culture - Preliminary Staphylococcus aureus Comment:: Alert, pleasant. Afebrile. Vital signs of been normal. Lungs are clear, heart rate regular. Abdomen soft, previously noted spasticity and neurologic deficits from her CPR unchanged. Wound VAC dressing is clean/dry/intact, foot distally to the dressing is without edema and good distal pulses. No red streaking. Assessment and Plan *Assessment and plan (1) Cellulitis of right lower extremity: Problem Comment: Inflammatory markers markedly elevated, normal WBC, initial lactate normal. Plain imaging negative. Consult orthopedics, pharmacy for antibiotic dosing and PT for wound care. Start IV clindamycin, vancomycin and cefepime until cultures are available. Regular diet following orthopedic consult and pending their recommendations Activity as tolerated Status: Acute Category: Medical Code(s): L03.115 - Cellulitis of right lower limb (2) Wound of right lower extremity: Status: Acute Category: Medical Code(s): S81.801A - Unspecified open wound, right lower leg, initial encounter (3) Physical debility: Status: Acute Category: Medical Code(s): R53.81 - Other malaise (4) Cerebral palsy: Status: Chronic Qualifiers: Cerebral palsy type: unspecified type Qualified Code(s): G80.9 - Cerebral palsy, unspecified Category: Medical Code(s): G80.9 - Cerebral palsy, unspecified (5) Neurogenic bladder: Problem Comment: monitor output, in and out catheter as needed Status: Acute Category: Medical Code(s): N31.9 - Neuromuscular dysfunction of bladder, unspecified (6) Staphylococcus aur
--- NOTE | 2023-02-20 10:56 | PC.NURSE ---
COURTESY TECH NOTE; ROUNDED ON PT 1005, PT DENIED NEED FOR DRINK, ASSISTANCE WITH RESTROOM, NEED TO REPOSITION IN BED, CALL LIGHT WITHIN REACH, NO FURTHER REQUESTS AT THIS TIME. Danielle ALICEA, SRNA
[2023-02-20 11:07] VITALS: BP 130/88; PULSE 105; RESP 19; TEMP 36.8; O2SAT 97
[2023-02-20 15:13] VITALS: BP 130/81; PULSE 118; RESP 19; TEMP 37; O2SAT 97
--- NOTE | 2023-02-20 16:36 | PC.NURSE ---
A&OX4. TOLERATING RA WELL. AT BEDSIDE. PT HAS BEEN UP IN ROOM AND TO CHAIR WITH PT TODAY-TOLERATED WELL. PT HAS BEEN TX PER MAR FOR BACK PAIN, EFFECTIVENESS NOTED. WOUND VAC IN PLACE TO R LOWER LEG, CDI. PT HAS BEEN IN & OUT CATHED THIS SHIFT, ADEQUATE U/O NOTED. TOLERATES WELL. NO OTHER NEEDS NOTED THUS FAR, VSS.
[2023-02-20 20:00] VITALS: BP 120/68; PULSE 64; RESP 16; TEMP 36.7; O2SAT 96
[2023-02-21] VITALS: BP 124/66; PULSE 72; RESP 16; TEMP 36.6; O2SAT 96
[2023-02-21 04:00] VITALS: BP 140/83; PULSE 66; RESP 16; TEMP 36.4; O2SAT 97; BMI 22.4
--- NOTE | 2023-02-21 07:56 | EXP.DC.SUM ---
General Admission date:: 02/14/23 Discharge date: 02/21/23 HPI HPI HPI: 62 yr old debilitated female seen in our outpatient clinic today, accompanied by home-career developer, with complaints of pain and drainage from a wound on the right lower extremity. She fell in her bathtub about 2 weeks ago but isn't really sure if injury occurred then or prior to that fall but has been present for at least 2 weeks. Has been covering at home with a bandaid but today her aide noted marked swelling and erythema extending beyond the edges of the bandaid and recommended that she come in to be evalated. She did have a fever at home, 101F, about 48 hours ago. Wound noted to have significant slough, marked erythema extending in all directions from the wound, warmth and induration with active drainage and decision was made to admit for IV antibiotics, wound care consult, cultures, and orthopedic consult for possible debridement. Please note that she is on antibiotics quite frequently due to recurrent urinary tract infections and has a history of multi-drug resistant bacteria. Hospital Course Hospital Course Hospital Course: Patient was admitted. Orthopedics was consulted to evaluate her right kiran wound. They took her to the OR after MRI showed extensive tunneling and spread of the cellulitis. No osteo was noted. Please see OR notes for details. Wound VAC was placed after this. It turns out that her had been digging around in a boil on her right kiran with a stick pin that he had treated with hydrogen peroxide -and he told me that he had done this several times to try to get the gristle out of the boil that was allegedly in the small boil on her kiran. He did this about 2 weeks before she presented to the office but the result of his intervention was not positive and because the spreading cellulitis. Regardless, she did well with surgery, and IV vancomycin and IV clindamycin were started. Blood cultures were positive in all 4 bottles for MRSA. These were repeated to 48 hours and remained positive. She was continued on double coverage antibiotics. Blood cultures again were done 48 hours later and these are negative. After extensive discussion with care management and patient and family, she would rather not go to a skilled care facility. We have arranged with diligent work on our social work and care management departments, home health and transportation arrangements-since her cannot drive right now because of various legal entanglements -for her to come back daily for daptomycin therapy for 2 weeks. This has been arranged and she will have wound care changed every 3 days. Other medications will be the same. We will follow her up in the next 7 to 10 days in the office. Exam Data for Last 24 hours Vital signs and Labs for Last 24 Hours: Temp Pulse Resp BP Pulse Ox 97.5 F L 66 16 140/83 97 02/21/23 04:00 02/21/23 04:00 02/21/23 04:00 02/21/23 04:00 02/21/23 04:00 I & O for Last 24 hours: Intake & Output 02/18/23 02/19/23 02/20/23 02/21/23 11:59 11:59 11:59 11:59 Intake Total 2450 / 2450 1330 / 1330 2350 / 2350 820 / 820 Output Total 0 / 0 500 / 500 2500 / 2500 3700 / 3700 Balance 2450 / 2450 830 / 830 -150 / -150 -2880 / -2880 Weight 144 lb 4 oz 146 lb 5 oz 146 lb 7 oz 139 lb 9.6 oz Microbiology Reports for the Last 24 Hours: Microbiology 02/16/23 09:47 Blood Blood Culture - Final Staphylococcus aureus 02/18/23 09:00 Blood Blood Culture - Preliminary NO GROWTH AFTER 48 HOURS 02/18/23 08:45 Blood Blood Culture - Preliminary NO GROWTH AFTER 48 HOURS Constitutional Constitutional: no acute distress *Routine HEENT Exam Head: Present normocephalic Eye: Present EOMI and PERRL ENT: Present mucous membranes moist *Routine Neck Exam Neck: Present supple; Absent lymphadenopathy *Routine Respiratory Exam Respirat
[2023-02-21 08:00] VITALS: BP 120/55; PULSE 125; RESP 18; TEMP 37.9; O2SAT 96
--- NOTE | 2023-02-21 10:16 | PC.NURSE ---
COURTESY TECH NOTE; ROUNDED ON PT 0840, PT DENIED NEED FOR ASSISTANCE WITH RESTROOM, DRINK, OR NEED TO REPOSITION. CALL LIGHT WITHIN REACH, NO FURTHER REQUESTS AT THIS TIME KATHRINE RAZO
--- NOTE | 2023-02-21 10:16 | PC.NURSE ---
awaiting delivery of wound vac before d/c
[2023-02-21 11:00] VITALS: BP 116/79; PULSE 119; RESP 18; TEMP 35.9; O2SAT 95
--- NOTE | 2023-02-21 12:01 | PC.NURSE ---
CARE MANAGEMENT NOTIFIED THAT PT IS READY FOR D/C. THEY ARE ARRANGING TRANSPORT.
== END 2023-02-21 12:15 | disposition home or self-care (01) | DRG 572 ==
PROVIDERS: Orthopaedic Surgery; Admitting Provider Internal Medicine Adolescent Medicine; PCP Internal Medicine Adolescent Medicine; Visit Provider Internal Medicine Adolescent Medicine
PROC: 0JBL0ZZ Excision of Right Upper Leg Subcutaneous Tissue and Fascia, Open Approach (ICD-10-PCS; principal; 2023-02-14 19:00)
DX: L03.115 Cellulitis of right lower limb (principal); S81.801A Unspecified open wound, right lower leg, initial encounter; G80.9 Cerebral palsy, unspecified; N31.2 Flaccid neuropathic bladder, not elsewhere classified; N31.9 Neuromuscular dysfunction of bladder, unspecified; F41.9 Anxiety disorder, unspecified; M81.0 Age-related osteoporosis without current pathological fracture; E78.5 Hyperlipidemia, unspecified
CPT/HCPCS: 11042; 36410; 36415; 36569; 71045; 73590; 73721; 80048; 80053; 80202; 83605; 85007; 85025; 85651; 86140; 87040; 87070; 87075; 87077; 87186; 87205; 87636; 93005; 97110; 97116; 97162; 97165; 97530; C1751; C9803; J2405; J3370; U0003; U0005

== ENCOUNTER 2023-02-22 15:10 | Outpatient (CLI) | payer MEDICAID, SELFPAY ==
[2023-02-22 15:18] VITALS: BMI 22.4
== END 2023-02-22 16:04 | disposition home or self-care (01) ==
PROVIDERS: PCP Internal Medicine Adolescent Medicine; Visit Provider Internal Medicine Adolescent Medicine
DX: S81.801A Unspecified open wound, right lower leg, initial encounter (principal); L03.115 Cellulitis of right lower limb
CPT/HCPCS: 96365; J0878

== ENCOUNTER → 2023-02-23 14:50 | Outpatient (CLI) | payer MEDICAID, SELFPAY ==
[2023-02-23 15:08] VITALS: BMI 22.4
== END ==
PROVIDERS: PCP Internal Medicine Adolescent Medicine; Visit Provider Internal Medicine Adolescent Medicine
DX: S81.801A Unspecified open wound, right lower leg, initial encounter (principal); L03.115 Cellulitis of right lower limb
CPT/HCPCS: 96365; J0878

== ENCOUNTER 2023-02-24 14:44 | Outpatient (CLI) | payer MEDICAID, SELFPAY ==
[2023-02-24 15:14] VITALS: BP 109/73; PULSE 98; RESP 16; TEMP 36.6; O2SAT 98
[2023-02-24 15:50] VITALS: BP 116/75; PULSE 95; RESP 16; TEMP 36.6; O2SAT 98
== END 2023-02-24 15:55 | disposition home or self-care (01) ==
LOC: INF 14:45
PROVIDERS: PCP Internal Medicine Adolescent Medicine; Visit Provider Internal Medicine Adolescent Medicine
DX: L03.115 Cellulitis of right lower limb (principal); S81.801A Unspecified open wound, right lower leg, initial encounter
CPT/HCPCS: 96365; J0878

== ENCOUNTER 2023-02-25 13:47 | Outpatient (CLI) | payer MEDICAID, SELFPAY ==
[2023-02-25 14:22] LABS: Creatine Kinase < 20 U/L (30-135)
[2023-02-25 14:36] VITALS: BP 124/77; PULSE 82; TEMP 37.1; O2SAT 96
[2023-02-25 15:13] VITALS: BP 100/71; PULSE 100; O2SAT 98
== END 2023-02-25 15:13 | disposition home or self-care (01) ==
LOC: INF 13:49
PROVIDERS: PCP Internal Medicine Adolescent Medicine; Visit Provider Internal Medicine Adolescent Medicine
DX: L03.115 Cellulitis of right lower limb (principal); S81.801A Unspecified open wound, right lower leg, initial encounter
CPT/HCPCS: 82550; 96365; J0878

== ENCOUNTER 2023-02-26 13:34 | Outpatient (CLI) | payer MEDICAID, SELFPAY ==
[2023-02-26 14:10] VITALS: BP 132/78; PULSE 82; RESP 18; O2SAT 99
[2023-02-26 14:45] VITALS: BP 134/81; PULSE 78; O2SAT 97
== END 2023-02-26 14:45 | disposition home or self-care (01) ==
LOC: INF 13:35
PROVIDERS: PCP Internal Medicine Adolescent Medicine; Visit Provider Internal Medicine Adolescent Medicine
DX: L03.115 Cellulitis of right lower limb (principal); S81.801A Unspecified open wound, right lower leg, initial encounter
CPT/HCPCS: 96365; J0878

== ENCOUNTER 2023-02-26 15:25 | Emergency (ER) | payer MEDICAID, SELFPAY ==
[2023-02-26 15:26] VITALS: BP 150/68; PULSE 94; RESP 16; TEMP 36.6; O2SAT 97; BMI 22.8
[2023-02-26 15:42] VITALS: BMI 21.7
[2023-02-26 15:51] LABS: Microscopic, Urine URINE MICROSCOPIC (MICROSCOPIC)
[2023-02-26 16:00] VITALS: BP 144/84; PULSE 88; RESP 18; O2SAT 97
--- NOTE | 2023-02-26 16:16 | HMH.EDGENADL ---
Discharge Plan Disposition Patient Disposition: Home, Self-Care Condition: Fair Chief Complaint: Urogenital-Female Prescriptions Prescriptions: No Action cyanocobalamin (vitamin B-12) 1,000 mcg/mL solution 1,000 mcg IM MONTHLY Linzess 72 mcg capsule 72 mcg PO DAILY cholecalciferol (vitamin D3) 50 mcg (2,000 unit) tablet 2,000 unit PO DAILY sertraline 100 mg tablet 200 mg PO DAILY Qty: 60 2RF lorazepam [Ativan] 0.5 mg tablet 0.5 mg PO BID PRN (Reason: anxiety) Qty: 60 1RF omeprazole 40 mg capsule,delayed release(DR/EC) 40 mg PO DAILY Label Comments: TAKE 1 CAPSULE BY MOUTH ONCE DAILY levothyroxine 200 mcg tablet 200 mcg PO DAILY Label Comments: TAKE 1 TABLET BY MOUTH ONCE DAILY gabapentin 100 mg Capsule 100 mg PO BID daptomycin 350 mg recon soln 350 mg IV Q24H Rx Instructions: administer over 30 mins Referrals Follow up/Referrals: Luis Henderson MD [Primary Care Provider] - See instructions Clinical Impressions Clinical Impression: Dysuria, Candidiasis of genitalia in female Instructions Patient Instructions: Vaginal Yeast Infection, DI for Dysuria -- Adult Discharge ED Provider: Bobby Neil General Adult HPI General Chief complaint: Urogenital-Female Stated complaint: poss UTI Time Seen by Provider: 02/26/23 15:47 Mode of Arrival: Ambulatory Source of Information: Patient Limitations: No Limitations Description of Symptoms (Recalled from ER Triage Doc. by RN): pt to the ED with left shoulder pain after a fall 3 weeks ago and stated she believes she has a UTI. pt straight caths herself daily and reports itching and redness on labia History of Present Illness HPI narrative: This is a 62-year-old female who presents with UTI symptoms for the past couple days. No flank pain no fevers or chills no nausea or vomiting patient does self cath. Related Data Home Medications Medication Instructions Recorded Confirmed cyanocobalamin (vitamin B-12) 1,000 mcg IM MONTHLY Supplement 11/04/18 02/26/23 1,000 mcg/mL injection solution linaclotide 72 mcg capsule 72 mcg PO DAILY IBS 11/04/18 02/26/23 (Linzess) cholecalciferol (vitamin D3) 50 2,000 unit PO DAILY Supplement 10/11/19 02/26/23 mcg (2,000 unit) tablet levothyroxine 200 mcg tablet 200 mcg PO DAILY THYROID 02/14/23 02/26/23 omeprazole 40 mg capsule,delayed 40 mg PO DAILY Acid reflux 02/14/23 02/26/23 release gabapentin 100 mg capsule 100 mg PO BID neuropathy 02/15/23 02/26/23 daptomycin 350 mg intravenous 350 mg IV Q24H cellulitis 02/25/23 02/26/23 solution Previous Rx's Medication Instructions Recorded lorazepam 0.5 mg tablet (Ativan) 0.5 mg PO BID PRN anxiety #60 tabs 02/26/23 sertraline 100 mg tablet 200 mg PO DAILY mood #60 tabs 02/26/23 Allergies Allergy/AdvReac Type Severity Reaction Status Date / Time metoclopramide [From REGLAN] Allergy Mild I-RASH Verified 01/02/23 14:26 Sulfa (Sulfonamide Allergy Mild I-RASH Verified 01/02/23 14:26 Antibiotics) [SULFA (SULFONAMIDE ANTIBIOTICS)] morphine Allergy Vomiting Verified 01/02/23 14:26 [facility] Disclaimer: The information contained in this section may have been updated after the patient was seen, as this information can be updated by other users. Medical History Depression Generalized anxiety disorder GERD (gastroesophageal reflux disease) History of hypertension Hyperlipidemia Neurogenic bladder New onset seizure Osteoporosis Physical debility Surgical History H/O kyphoplasty H/O thyroidectomy H/O tubal ligation Hx of appendectomy Family History No significant family history Social History Smoking Status: Never smoker second hand exposure: No
[2023-02-26 16:17] LABS: Appearance,Urine CLEAR (Clear); Bilirubin,Urine Negative (Negative); Blood, Urine 1+ (Negative); Color,Urine YELLOW (Yellow); Glucose,Urine (UA) Negative (Negative); Ketones,Urine Negative (Negative); Leukocyte Esterase,Urine TRACE (Negative); Nitrate,Urine Negative (Negative); Protein,Urine Negative (Negative); Specific Gravity, Urine 1.015 (1.005-1.030); Urobilinogen,Urine 0.2 EU/dl (0.2)
[2023-02-26 16:30] VITALS: BP 162/84; PULSE 85; O2SAT 98
[2023-02-26 16:38] LABS: Bacteria,Urine 2+ /lpf; RBC,Urine Occasional #/hpf (0-3); WBC,Urine Occasional #/hpf (0-3); Yeast,Urine 2+ /lpf
[2023-02-26 17:00] VITALS: BP 151/72; PULSE 91; RESP 20; O2SAT 97
[2023-02-26 17:17] VITALS: BP 151/72; PULSE 90; RESP 16; TEMP 36.7
== END 2023-02-26 17:19 | disposition home or self-care (01) ==
PROVIDERS: Emergency Provider Emergency Medicine; PCP Internal Medicine Adolescent Medicine
DX: B37.31 Acute candidiasis of vulva and vagina; R30.0 Dysuria; B96.89 Other specified bacterial agents as the cause of diseases classified elsewhere; K21.9 Gastro-esophageal reflux disease without esophagitis; E78.5 Hyperlipidemia, unspecified; N31.9 Neuromuscular dysfunction of bladder, unspecified; F41.1 Generalized anxiety disorder; F32.A Depression, unspecified
CPT/HCPCS: 81001; 87086; 87088; 87186; 99283; 99284

== ENCOUNTER 2023-02-27 12:24 | Outpatient (CLI) | payer MEDICAID, SELFPAY ==
[2023-02-27 13:14] VITALS: BP 121/80; PULSE 109; RESP 18; TEMP 36.6; O2SAT 98
[2023-02-27 14:00] VITALS: BP 130/83; PULSE 83; RESP 18; O2SAT 98
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
== END 2023-02-27 14:00 | disposition home or self-care (01) ==
LOC: INF 12:25
PROVIDERS: PCP Internal Medicine Adolescent Medicine; Visit Provider Internal Medicine Adolescent Medicine
DX: L03.115 Cellulitis of right lower limb (principal); S81.801A Unspecified open wound, right lower leg, initial encounter
CPT/HCPCS: 96365; J0878

== ENCOUNTER 2023-02-28 11:42 | Outpatient (CLI) | payer MEDICAID, SELFPAY ==
[2023-02-28 11:58] VITALS: BP 149/86; PULSE 96; RESP 18; TEMP 36.4; O2SAT 96
--- NOTE | 2023-02-28 12:00 | PC.NURSE ---
1200-TONY MUNIZ APRN HERE TO SPEAK WITH PT FOR FOLLOW UP QUESTIONS PRIVATELY.
--- NOTE | 2023-02-28 12:15 | PC.NURSE ---
1215-TONY MUNIZ APRN LEFT INFUSION DEPARTMENT.
[2023-02-28 12:45] VITALS: BP 95/59; PULSE 103; RESP 18; O2SAT 96
== END 2023-02-28 12:45 | disposition home or self-care (01) ==
LOC: INF 11:43
PROVIDERS: PCP Internal Medicine Adolescent Medicine; Visit Provider Internal Medicine Adolescent Medicine
DX: L03.115 Cellulitis of right lower limb (principal); S81.801A Unspecified open wound, right lower leg, initial encounter
CPT/HCPCS: 96365; J0878

== ENCOUNTER 2023-03-01 10:49 | Outpatient (CLI) | payer MEDICAID, SELFPAY ==
[2023-03-01 10:59] VITALS: BP 111/40; PULSE 119; RESP 20; TEMP 36.6; O2SAT 96
== END 2023-03-01 12:00 | disposition home or self-care (01) ==
LOC: INF 10:50
PROVIDERS: PCP Internal Medicine Adolescent Medicine; Visit Provider Internal Medicine Adolescent Medicine
DX: S81.801A Unspecified open wound, right lower leg, initial encounter (principal)
CPT/HCPCS: 96365; J0878

== ENCOUNTER → 2023-03-02 14:19 | Outpatient (CLI) | payer MEDICAID, SELFPAY ==
[2023-03-02 14:48] VITALS: BP 126/78; PULSE 103; RESP 20; TEMP 36.7; O2SAT 96
== END ==
PROVIDERS: PCP Internal Medicine Adolescent Medicine; Visit Provider Internal Medicine Adolescent Medicine
DX: S81.801A Unspecified open wound, right lower leg, initial encounter (principal); L03.115 Cellulitis of right lower limb
CPT/HCPCS: 96365; J0878

== ENCOUNTER 2023-03-03 10:16 | Outpatient (CLI) | payer MEDICAID, SELFPAY ==
[2023-03-03 10:45] VITALS: BP 108/68; PULSE 104; RESP 18; O2SAT 98
[2023-03-03 11:20] VITALS: BP 124/73; PULSE 100; RESP 18; O2SAT 98
== END 2023-03-03 11:20 | disposition home or self-care (01) ==
LOC: INF 10:16
PROVIDERS: PCP Internal Medicine Adolescent Medicine; Visit Provider Internal Medicine Adolescent Medicine
DX: L03.115 Cellulitis of right lower limb (principal); S81.801A Unspecified open wound, right lower leg, initial encounter
CPT/HCPCS: 96365; G0463; J0878

== ENCOUNTER 2023-03-06 10:30 | Outpatient (RCR) | payer MEDICAID, SELFPAY ==
--- NOTE | 2023-02-24 16:46 | HMH.PTOPWND ---
Rehab Outpt Wound Evaluation Rehab OP Wound Evaluation Start: 02/24/23 16:37 Freq: Status: Active Protocol: Document 02/24/23 16:37 CARISA (Rec: 02/24/23 16:46 PHORNE [id number]) E-signed By Josh Milner, PT Subjective/History History History This is the initial PT eval for Meme Carey, 62 yowf who presents with R anterior superior kiran wound x ~ 3 wks overall and S/P I&D performed ~ 1 wk ago. She reports the wound was initially a small boil but that worsened steadily and she required admission to the hospital for several days. Cultures showed MRSA in the wound and blood and she is receiving IV abx. She has hx of CP which limits her baseline mobility. Subjective Subjective Pt reports no pain at rest this date, but increased pain during dressing changes, /10. Significant reduction in per- wound erythema and TTP vs during hospital admission. Wound bed remains healthy granulation tissue at the base . Initially after surgical debridement, wound had several large areas of undermining, which are now healed. Wound Eval Wound Right Anterior Proximal Kiran Wound Type I&D, secondary intention closure Is This a Chronic Wound Yes Wound Length (cm) 2.3 Wound Width (cm) 2.8 Wound Depth (cm) 0.1 Wound Bed Appearance Beefy Red Percentage Granulated (%) 100 Wound Margins Description Well Defined Surrounding Tissue Appearance [place] Drainage Description Serosanguineous Drainage Amount Scant Wound Topical Solution/Irrigant Saline Irrigant Packing Type Woundvac Sponge Primary Dressing Transparent Drape Wound Secondary Dressing Type Gauze Roll/Wrap,Elastic Bandage Wound Debridement Method Mechanical Wound Debridement Amount of Tissue None Removed Dressing Change Patient Tolerance Tolerated Well Wound Problems/Impairments Impairments Problems/Impairmments Palpation Tenderness
== END 2023-03-06 10:35 | disposition home or self-care (01) ==
LOC: PT 10:30
PROVIDERS: PCP Internal Medicine Adolescent Medicine; Visit Provider Orthopaedic Surgery
DX: L03.115 Cellulitis of right lower limb (principal); S81.801A Unspecified open wound, right lower leg, initial encounter
CPT/HCPCS: 97163; 97597; 97605

== ENCOUNTER 2023-03-10 18:23 | Emergency (ER) | payer MEDICAID, SELFPAY ==
[2023-03-10 18:24] VITALS: BP 112/87; PULSE 95; RESP 16; TEMP 36.9; O2SAT 96; BMI 22.8
--- NOTE | 2023-03-10 18:49 | CT_ITS ---
PROCEDURE INFORMATION: Exam: CT Chest Without Contrast; Diagnostic Exam date and time: 03/10/2023 7:09 PM Age: 62 years old Clinical indication: Injury or trauma; Fall; Blunt trauma (contusions or hematomas); Additional info: Fall, right lateral chest wall and mid t-sp pain TECHNIQUE: Imaging protocol: Diagnostic computed tomography of the chest without contrast. Radiation optimization: All CT scans at this facility use at least one of these dose optimization techniques: automated exposure control; mA and/or kV adjustment per patient size (includes targeted exams where dose is matched to clinical indication); or iterative reconstruction. REPORTING DATA: Count of CT and Cardiac NM exams in prior 12 months: This patient has received 2 known CTs and 0 known cardiac nuclear medicine studies in the 12 months prior to the current study. COMPARISON: CR XR CHEST PORTABLE PICC PLAC 02/17/2023 8:57 AM FINDINGS: Lungs: Calcified granuloma left upper lobe. Pleural spaces: Unremarkable. No pneumothorax. No pleural effusion. Heart: Unremarkable. No cardiomegaly. No pericardial effusion. Coronary arteries: Coronary artery calcification Lymph nodes: Unremarkable. No enlarged lymph nodes. Vasculature: Regions of atherosclerotic vascular calcification involving the aortic arch. Spleen: Evidence of prior splenic granulomatous disease. Kidneys and ureters: Incomplete visualization of mild left hydronephrosis. Bones/joints: Burst fracture T3 vertebral body. Slight decrease in height of the T4 vertebral body suspicious for mild compression deformity age indeterminate. Osteopenia. Kyphoplasty T11 and T12. nondisplaced fracture right lateral 1st rib. Chronic left posterolateral 9th rib fracture. Soft tissues: Unremarkable. IMPRESSION: 1. Burst fracture T3 vertebral body. 2. Nondisplaced fracture right lateral 1st rib. 3. Incomplete visualization of mild left hydronephrosis. 4. Mild T4 compression fracture deformity, age indeterminate.
--- NOTE | 2023-03-10 18:49 | CT_ITS ---
PROCEDURE INFORMATION: Exam: CT Thoracic Spine Without Contrast Exam date and time: 03/10/2023 7:12 PM Age: 62 years old Clinical indication: Injury or trauma; Fall; Blunt trauma (contusions or hematomas); Additional info: Fall, right lateral chest wall and mid t-sp pain TECHNIQUE: Imaging protocol: Computed tomography of the thoracic spine without contrast. Radiation optimization: All CT scans at this facility use at least one of these dose optimization techniques: automated exposure control; mA and/or kV adjustment per patient size (includes targeted exams where dose is matched to clinical indication); or iterative reconstruction. REPORTING DATA: Count of CT and Cardiac NM exams in prior 12 months: This patient has received 2 known CTs and 0 known cardiac nuclear medicine studies in the 12 months prior to the current study. COMPARISON: CT THORACIC SPINE WO CON 05/17/2020 6:07 PM FINDINGS: Limitations: Note that the T1 level was not imaged. Bones/joints: Re-demonstration of a T3 vertebral body burst fracture with 1-2 mm of superior endplate retropulsion. Mild compression deformity of the T4 superior endplate with minimal retropulsion of the superior endplate. Postprocedural changes of T11 and T12 kyphoplasty with unchanged vertebral height loss and minimal retropulsion of the T11 superior endplate and T12 inferior endplate. Additional old L2 compression fracture with mild retropulsion of the superior endplate previously reported on 2019 CT. No significant canal stenosis. Soft tissues: Unremarkable. IMPRESSION: 1. Redemonstrated T3 vertebral body burst fracture with minimal superior endplate retropulsion contributing to no significant spinal canal stenosis. 2. Age-indeterminate mild T4 compression fracture.
--- NOTE | 2023-03-10 18:50 | HMH.EDGENADL ---
Discharge Plan Disposition Patient Disposition: Home, Self-Care Prescriptions Prescriptions: New hydrocodone-acetaminophen 5-325 mg tablet 1 tab PO Q6H PRN (Reason: pain) 3 Days Qty: 12 0RF No Action cyanocobalamin (vitamin B-12) 1,000 mcg/mL solution 1,000 mcg IM MONTHLY Linzess 72 mcg capsule 72 mcg PO DAILY cholecalciferol (vitamin D3) 50 mcg (2,000 unit) tablet 2,000 unit PO DAILY sertraline 100 mg tablet 200 mg PO DAILY Qty: 60 2RF lorazepam [Ativan] 0.5 mg tablet 0.5 mg PO BID PRN (Reason: anxiety) Qty: 60 1RF omeprazole 40 mg capsule,delayed release(DR/EC) 40 mg PO DAILY Patient Comments: TAKE 1 CAPSULE BY MOUTH ONCE DAILY levothyroxine 200 mcg tablet 200 mcg PO DAILY Patient Comments: TAKE 1 TABLET BY MOUTH ONCE DAILY gabapentin 100 mg Capsule 100 mg PO BID daptomycin 350 mg recon soln 350 mg IV Q24H Rx Instructions: administer over 30 mins Referrals Follow up/Referrals: Patricio Castanon DO [Staff Physician] - See instructions (next available appointment ) Lius Henderson MD [Primary Care Provider] - See instructions Activity Restrictions/Add. Instructions Additional Instructions/Restrictions: Please follow-up with Dr. Hernan Castanon next available appointment for management of your chronic T3 burst fracture and T4 compression fracture. You will likely need a specialized TLSO brace that he will facilitate getting molded for you. Please continue to take your pain medicine return with any fevers chills cough or any other worsening concerns. Otherwise follow-up with primary care doctor regarding chronic pain management. Clinical Impressions Clinical Impression: Chest wall contusion, Acute thoracic myofascial strain, Stable burst fracture of third thoracic vertebra, Wedge compression fracture of T4 vertebra, Fracture of one rib of right side Discharge ED Provider: Felicia Garcia General Adult [facility] General Chief complaint: PAIN Stated complaint: back pain Time Seen by Provider: 03/10/23 18:43 Mode of Arrival: Wheelchair Source of Information: Patient Limitations: No Limitations Description of Symptoms (Recalled from ER Triage Doc. by RN): pt to ED complaining of left shoulder and top of back pain after a fall in her shower 4 months ago. pt has been seen by ER MD and PCP for this fall and reports she is still having pain and OTC medications arent helping. pt denies any new injury. History of Present Illness HPI narrative: Patient is a 62-year-old female with a history of cerebral palsy presents today with right mid axillary chest wall pain and mid thoracic spine pain following a fall 4 weeks ago. She states she was in the bathtub when she fell directly onto the side of the tub. She has not had any imaging of this area but states that the symptoms have been getting worse. No fevers or chills or increasing cough. She has taken baclofen and Tylenol and medications at home without any significant improvement. Related Data Home Medications Medication Instructions Recorded Confirmed cyanocobalamin (vitamin B-12) 1,000 mcg IM MONTHLY Supplement 11/04/18 02/28/23 1,000 mcg/mL injection solution linaclotide 72 mcg capsule 72 mcg PO DAILY IBS 11/04/18 02/28/23 (Linzess) cholecalciferol (vitamin D3) 50 2,000 unit PO DAILY Supplement 10/11/19 02/28/23 mcg (2,000 unit) tablet levothyroxine 200 mcg tablet 200 mcg PO DAILY THYROID 02/14/23 02/28/23 omeprazole 40 mg capsule,delayed 40 mg PO DAILY Acid reflux 02/14/23 02/28/23 release gabapentin 100 mg capsule 100 mg PO BID neuropathy 02/15/23 02/28/23 daptomycin 350 mg intravenous 350 mg IV Q24H cellulitis 02/25/23 02/28/23 solution Previous Rx's Medication Instructions Recorded lorazepam 0.5 mg tablet (Ativan) 0.5 mg PO BID PRN anxiety #60 tabs 02/26/23 sertraline 100 mg tablet 200 mg PO DAILY mood #60 tabs 02/26/23 hydrocodone 5 mg-acetaminophen 325 1 tab PO Q6H PRN pain 3 d
[2023-03-10 19:01] VITALS: BP 127/94; PULSE 130; O2SAT 95
--- NOTE | 2023-03-10 20:04 | PC.NURSE ---
checked on pt nothing needed at this time, call light at bs
[2023-03-10 20:06] VITALS: BP 127/50; PULSE 118; O2SAT 96
[2023-03-10 20:44] VITALS: BP 127/50; PULSE 118; RESP 16; TEMP 36.6; O2SAT 96
== END 2023-03-10 20:47 | disposition home or self-care (01) ==
PROVIDERS: Emergency Provider Student in an Organized Health Care Education/Training Program; PCP Internal Medicine Adolescent Medicine
DX: S22.31XA Fracture of one rib, right side, initial encounter for closed fracture (principal); S32.031A Stable burst fracture of third lumbar vertebra, initial encounter for closed fracture; S23.3XXA Sprain of ligaments of thoracic spine, initial encounter; G80.9 Cerebral palsy, unspecified; I10 Essential (primary) hypertension; F32.A Depression, unspecified; F41.1 Generalized anxiety disorder; K21.9 Gastro-esophageal reflux disease without esophagitis; W18.2XXA Fall in (into) shower or empty bathtub, initial encounter
CPT/HCPCS: 71250; 72128; 99285

== ENCOUNTER 2023-03-13 09:53 | Emergency (ER) | payer MEDICAID, SELFPAY ==
[2023-03-13 09:55] VITALS: BP 140/69; PULSE 97; RESP 16; TEMP 36.4; O2SAT 98; BMI 25.8
[2023-03-13 10:30] VITALS: BP 122/79; PULSE 119; O2SAT 94
--- NOTE | 2023-03-13 10:50 | HMH.EDGENADL ---
Discharge Plan Disposition Chief Complaint: PAIN Prescriptions Prescriptions: No Action cyanocobalamin (vitamin B-12) 1,000 mcg/mL solution 1,000 mcg IM MONTHLY Linzess 72 mcg capsule 72 mcg PO DAILY cholecalciferol (vitamin D3) 50 mcg (2,000 unit) tablet 2,000 unit PO DAILY sertraline 100 mg tablet 200 mg PO DAILY Qty: 60 2RF lorazepam [Ativan] 0.5 mg tablet 0.5 mg PO BID PRN (Reason: anxiety) Qty: 60 1RF omeprazole 40 mg capsule,delayed release(DR/EC) 40 mg PO DAILY Patient Comments: TAKE 1 CAPSULE BY MOUTH ONCE DAILY levothyroxine 200 mcg tablet 200 mcg PO DAILY Patient Comments: TAKE 1 TABLET BY MOUTH ONCE DAILY gabapentin 100 mg Capsule 100 mg PO BID daptomycin 350 mg recon soln 350 mg IV Q24H Rx Instructions: administer over 30 mins hydrocodone-acetaminophen 5-325 mg tablet 1 tab PO Q6H PRN (Reason: pain) 3 Days Qty: 12 0RF Referrals Follow up/Referrals: Aneesh Robledo MD [Staff Physician] - See instructions (within one week for further treatment of your pain related to your injuries from over 1 month ago ) Luis Henderson MD [Primary Care Provider] - See instructions Activity Restrictions/Add. Instructions Additional Instructions/Restrictions: Please keep your appointment with Dr. Loyd with the orthopedic surgery clinic that you are following up with regarding specialized bracing and a referral has been made to Dr. Robledo for pain control above and beyond what already been prescribed to you from this emergency department. You may also follow-up with your primary care doctor regarding escalation of chronic pain medication. Dr. Castanon's office is in communication with Dr. Loyd's office and they are attempting to move up your appointment you should hear from them if this is successful. Clinical Impressions Clinical Impression: Stable burst fracture of third thoracic vertebra, Fracture of one rib of right side, Wedge compression fracture of T4 vertebra, Cerebral palsy Discharge ED Provider: Felicia Garcia General Adult HPI General Chief complaint: PAIN Stated complaint: Fractured RT rib 03/10 Time Seen by Provider: 03/13/23 10:22 Mode of Arrival: Wheelchair Source of Information: Patient Limitations: No Limitations Description of Symptoms (Recalled from ER Triage Doc. by RN): pt to the ED complaints of right shoulder pain, upper and middle back pain x 1 month after a fall iun her shower. pt has been seen multiple times in the ED and by her PCP but reports shes not getting any better. pt reports she was told to follow up with [facility] and has an appointment in [place] on 03/26. History of Present Illness HPI narrative: Patient is a 62-year-old female with a history of cerebral palsy here with acute on chronic pain. I saw her a few days ago and diagnosed her with a first rib fracture as well as a T3 burst fracture. I spoke to Dr. Castanon at that time and given the fact that she had an injury 1 month ago there is no need for any acute neurosurgical intervention orthopedic intervention aside from a specialized brace. I advised that she follow-up with Dr. Castanon and she did not. Apparently she called Dr. Candelaria's office and somebody at the front office told her that Dr. Castanon does not deal with the spine and there is no reason to follow-up there therefore she did not. She return to the emergency department with worsening pain and states that the oral [place] medication that was prescribed to her is not working. Related Data Home Medications Medication Instructions Recorded Confirmed cyanocobalamin (vitamin B-12) 1,000 mcg IM MONTHLY Supplement 11/04/18 02/28/23 1,000 mcg/mL injection solution linaclotide 72 mcg capsule 72 mcg PO DAILY IBS 11/04/18 02/28/23 (Linzess) cholecalciferol (vitamin D3) 50 2,000 unit PO DAILY Supplement 10/11/19 02/28/23 mcg (2,000 unit) tablet levothyroxine 200 mcg tablet 200 mcg PO DAILY THYROID 02/14/23 02/28/23
--- NOTE | 2023-03-13 11:46 | PC.NURSE ---
mary, care management at
--- NOTE | 2023-03-13 11:47 | PC.NURSE ---
rounded on patient, patient requesting tylenol, RN notified, call light within reach
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
[2023-03-13 12:00] VITALS: BP 128/69; PULSE 109; O2SAT 95
--- NOTE | 2023-03-13 12:09 | PC.NURSE ---
spoke with Gi in ortho who consulted [facility]. they recommended she see Dr. Rodríguez at [facility] which is who she has her current appointment with. Gi is calling to see if they can move up her appointment
[2023-03-13 12:30] VITALS: BP 138/53; PULSE 107; O2SAT 96
[2023-03-13 13:20] VITALS: BP 147/81; PULSE 81; RESP 17; TEMP 36.6; O2SAT 98
== END 2023-03-13 13:26 | disposition home or self-care (01) ==
PROVIDERS: Emergency Provider Student in an Organized Health Care Education/Training Program; PCP Internal Medicine Adolescent Medicine
DX: S22.31XA Fracture of one rib, right side, initial encounter for closed fracture (principal); S22.031A Stable burst fracture of third thoracic vertebra, initial encounter for closed fracture; S22.040A Wedge compression fracture of fourth thoracic vertebra, initial encounter for closed fracture; W18.2XXA Fall in (into) shower or empty bathtub, initial encounter; G80.9 Cerebral palsy, unspecified; E78.5 Hyperlipidemia, unspecified; K21.9 Gastro-esophageal reflux disease without esophagitis; M81.8 Other osteoporosis without current pathological fracture
CPT/HCPCS: 99283; 99284

== ENCOUNTER 2023-03-15 08:28 | Emergency (ER) | payer MEDICAID, SELFPAY ==
[2023-03-15 08:28] VITALS: BP 158/93; PULSE 128; RESP 17; TEMP 37.1; O2SAT 97; BMI 22.8
[2023-03-15 08:30] VITALS: BP 159/90; PULSE 111; O2SAT 98
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
--- NOTE | 2023-03-15 08:36 | CT_ITS ---
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 PT AMS w shakes, unable to hold still for scan. Best images. ; Additional info: Fall, BP with previous FX TECHNIQUE: Imaging protocol: Computed tomography of the cervical spine without contrast. Radiation optimization: All CT scans at this facility use at least one of these dose optimization techniques: automated exposure control; mA and/or kV adjustment per patient size (includes targeted exams where dose is matched to clinical indication); or iterative reconstruction. REPORTING DATA: Count of CT and Cardiac NM exams in prior 12 months: This patient has received 4 known CTs and 0 known cardiac nuclear medicine studies in the 12 months prior to the current study. COMPARISON: CT THORACIC SPINE WO CON 03/10/2023 7:12 PM FINDINGS: Bones/joints: No acute fracture of the cervical spine. No subluxation or dislocation of the cervical spine. Intervertebral disc space narrowing C5 through C7 may represent degenerative disc disease.. Bridging anterior osteophytes C2 through C6. Posterior osteophyte formation C5 through C7. Degenerative changes in the facets at multiple levels. Degenerative changes at C1/C2 Lungs: Paraspinous hematoma around the T3 fracture is extending into the apices Soft tissues: Unremarkable. Other findings: Motion artifact degrades images; Please refer to the report for CT thoracic spine for findings in this region IMPRESSION: 1. No acute fracture of the cervical spine. 2. No subluxation or dislocation of the cervical spine. 3. Intervertebral disc space narrowing C5 through C7 may represent degenerative disc disease..
--- NOTE | 2023-03-15 08:36 | CT_ITS ---
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 Radiation optimization: All CT scans at this facility use at least one of these dose optimization techniques: automated exposure control; mA and/or kV adjustment per patient size (includes targeted exams where dose is matched to clinical indication); or iterative reconstruction. REPORTING DATA: Count of CT and Cardiac NM exams in prior 12 months: This patient has received 4 known CTs and 0 known cardiac nuclear medicine studies in the 12 months prior to the current study. COMPARISON: CT LUMBAR SPINE WO CON 05/17/2020 6:12 PM FINDINGS: Bones/joints: Vertebroplasties at T11 and T12. Chronic compression fracture of L2.. No acute fracture is identified.. No dislocation Soft tissues: Unremarkable. IMPRESSION: 1. Vertebroplasties at T11 and T12. Chronic compression fracture of L2.. 2. No acute fracture is identified..
--- NOTE | 2023-03-15 08:39 | PC.NURSE ---
DR RETANA AT [facility]
--- NOTE | 2023-03-15 08:44 | CT_ITS ---
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 Exam focused on the skeleton. Radiation optimization: All CT scans at this facility use at least one of these dose optimization techniques: automated exposure control; mA and/or kV adjustment per patient size (includes targeted exams where dose is matched to clinical indication); or iterative reconstruction. REPORTING DATA: Count of CT and Cardiac NM exams in prior 12 months: This patient has received 4 known CTs and 0 known cardiac nuclear medicine studies in the 12 months prior to the current study. COMPARISON: CT ABDOMEN PELVIS W CON 05/17/2020 6:17 PM FINDINGS: Bones/joints: Degenerative changes in the lumbar spine. There is no evidence of acute fracture.There is no evidence of malalignment or dislocation. Soft tissues: Unremarkable. IMPRESSION: There is no evidence of acute fracture.There is no evidence of malalignment or dislocation.
--- NOTE | 2023-03-15 08:45 | HMH.EDGENADL ---
Discharge Plan Disposition Patient Disposition: Xfer Intermediate Care Fac Condition: Good Chief Complaint: Fall Prescriptions Prescriptions: No Action cyanocobalamin (vitamin B-12) 1,000 mcg/mL solution 1,000 mcg IM MONTHLY Linzess 72 mcg capsule 72 mcg PO DAILY cholecalciferol (vitamin D3) 50 mcg (2,000 unit) tablet 2,000 unit PO DAILY sertraline 100 mg tablet 200 mg PO DAILY Qty: 60 2RF lorazepam [Ativan] 0.5 mg tablet 0.5 mg PO BID PRN (Reason: anxiety) Qty: 60 1RF omeprazole 40 mg capsule,delayed release(DR/EC) 40 mg PO DAILY Patient Comments: TAKE 1 CAPSULE BY MOUTH ONCE DAILY levothyroxine 200 mcg tablet 200 mcg PO DAILY Patient Comments: TAKE 1 TABLET BY MOUTH ONCE DAILY gabapentin 100 mg Capsule 100 mg PO BID daptomycin 350 mg recon soln 350 mg IV Q24H Rx Instructions: administer over 30 mins hydrocodone-acetaminophen 5-325 mg tablet 1 tab PO Q6H PRN (Reason: pain) 3 Days Qty: 12 0RF Referrals Follow up/Referrals: Provider,Referral, MD [Referring] - See instructions Clinical Impressions Clinical Impression: Closed compression fracture of thoracic vertebra Qualifiers: Encounter type: initial encounter Qualified Code(s): S22.000A - Wedge compression fracture of unspecified thoracic vertebra, initial encounter for closed fracture Stand Alone Forms Stand Alone Forms: Transfer Record - ED Discharge ED Provider: Trevon Clark General Adult HPI General Chief complaint: Fall Stated complaint: fall Time Seen by Provider: 03/15/23 08:32 Mode of Arrival: EMS Source of Information: Patient and EMS Limitations: No Limitations Description of Symptoms (Recalled from ER Triage Doc. by RN): PT BROUGHT IN VIA EMS FOR FALL AT HOME. PT REPORTS GETTING UP, LOSS OF BALANCE. PT STATES SHE LANDED ON HER BACK, C/O PAIN BETWEEN SHOULDER, HAS CHRONIC PAIN AT SAME SITE History of Present Illness HPI narrative: This is a 62-year-old female with history of cerebral palsy, scoliosis, neurogenic bladder requiring intermittent catheterization presenting with pain after fall. Patient states she fell a little over a month ago, but was recently diagnosed with a rib fracture and back fracture. Patient has been following with orthopedics here at [facility], however in-house orthopedic surgeons do not operate on spine. Has a follow up with [facility] orthopedics on 03/24 for initial spinal surgery evaluation. She states that she stood up out of bed today, lost her balance after tripping, landed on her back. Did not hit her head or lose consciousness. Called EMS given recent fall and back fracture. Patient stating that she has moderate to severe pain in her upper back at the site of the previous fracture point. Denies bowel or bladder incontinence, saddle anesthesia, lower extremity deficits, neck pain, chest pain or shortness of breath. She stated that during the fall, she landed more on her right buttock than her left and is having right hip pain. Related Data Home Medications Medication Instructions Recorded Confirmed cyanocobalamin (vitamin B-12) 1,000 mcg IM MONTHLY Supplement 11/04/18 02/28/23 1,000 mcg/mL injection solution linaclotide 72 mcg capsule 72 mcg PO DAILY IBS 11/04/18 02/28/23 (Linzess) cholecalciferol (vitamin D3) 50 2,000 unit PO DAILY Supplement 10/11/19 02/28/23 mcg (2,000 unit) tablet levothyroxine 200 mcg tablet 200 mcg PO DAILY THYROID 02/14/23 02/28/23 omeprazole 40 mg capsule,delayed 40 mg PO DAILY Acid reflux 02/14/23 02/28/23 release gabapentin 100 mg capsule 100 mg PO BID neuropathy 02/15/23 02/28/23 daptomycin 350 mg intravenous 350 mg IV Q24H cellulitis 02/25/23 02/28/23 solution Previous Rx's Medication Instructions Recorded lorazepam 0.5 mg tablet (Ativan) 0.5 mg PO BID PRN anxiety #60 tabs 02/26/23 sertraline 100 mg tablet 200 mg PO DAILY mood #60 tabs 02/26/23 hydrocodone 5 mg-acetaminop
--- NOTE | 2023-03-15 08:50 | PC.NURSE ---
PT TO XR
--- NOTE | 2023-03-15 09:12 | PC.NURSE ---
PT RETURNED FROM XR
--- NOTE | 2023-03-15 09:24 | XR_ITS ---
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 Views: 3 or more views. COMPARISON: CR XR FOOT LT MIN 3V 01/02/2023 2:43 PM FINDINGS: Bones/joints: Hallux valgus deformity. Healed fractures of the 2nd and 4th metatarsals.. Degenerative changes in the 1st tarsal metatarsal joint and 1st metatarsal-phalangeal joint. There is a healing fracture of the 5th metatarsal. Fracture fragments are in good alignment. Soft tissues: Normal. IMPRESSION: 1. There is a healing fracture of the 5th metatarsal. Fracture fragments are in good alignment. 2. Healed fractures of the 2nd and 4th metatarsals.. 3. Degenerative changes in the 1st tarsal metatarsal joint and 1st metatarsal-phalangeal joint.
[2023-03-15 09:30] VITALS: BP 131/75; PULSE 110; O2SAT 97
--- NOTE | 2023-03-15 09:43 | XR_ITS ---
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 Views: 2 views. COMPARISON: CR XR FOOT LT 2V 03/15/2023 9:33 AM FINDINGS: Bones/joints: Expansile lesion in the midshaft of the left fibula may represent healed fibular fracture. Differential includes expansile lesion from fibrous dysplasia, unicameral bone cyst, aneurysmal bone cyst, malignancy.. Degenerative changes in the knee. No acute fracture is identified Soft tissues: Normal. IMPRESSION: Expansile lesion in the midshaft of the left fibula may represent healed fibular fracture. Differential includes expansile lesion from fibrous dysplasia, unicameral bone cyst, aneurysmal bone cyst, malignancy..
[2023-03-15 10:00] VITALS: BP 107/58; PULSE 110; O2SAT 95
--- NOTE | 2023-03-15 10:05 | PC.NURSE ---
Spoke with Karli in Radiology to [facility] images to [facility] and burn an imaging disc
--- NOTE | 2023-03-15 10:14 | PC.NURSE ---
Dr. Arango has accepted patient to for a transfer
--- NOTE | 2023-03-15 10:25 | PC.NURSE ---
REPORT GIVEN CHARGE NURSE HUBERT BESS AT ED
--- NOTE | 2023-03-15 10:45 | PC.NURSE ---
[facility] NOTIFIED OF PT TRANSFER TO [facility]
[2023-03-15 11:14] VITALS: BP 112/65; PULSE 104; RESP 17; TEMP 36.6; O2SAT 95
== END 2023-03-15 11:15 ==
PROVIDERS: Emergency Provider Emergency Medicine; PCP Internal Medicine Adolescent Medicine
DX: S22.000A Wedge compression fracture of unspecified thoracic vertebra, initial encounter for closed fracture (principal); G80.9 Cerebral palsy, unspecified; F32.9 Major depressive disorder, single episode, unspecified; F41.9 Anxiety disorder, unspecified; K21.9 Gastro-esophageal reflux disease without esophagitis; E78.5 Hyperlipidemia, unspecified; M81.0 Age-related osteoporosis without current pathological fracture
CPT/HCPCS: 72125; 72128; 72131; 72192; 73590; 73630; 96372; 99285

== ENCOUNTER 2023-04-21 09:29 | Emergency (ER) | payer MEDICAID, SELFPAY ==
[2023-04-21] VITALS (7 sets, daily range): BP systolic 103–143; BP diastolic 58–89; PULSE 82–109; RESP 18–21; TEMP 36.7–36.8; O2SAT 96–99; BMI 18.6
--- NOTE | 2023-04-21 09:44 | PC.NURSE ---
drained patient jacobs bag and it had 200ml urine in it
--- NOTE | 2023-04-21 10:06 | MR_ITS ---
FINAL REPORT TECHNIQUE: Multiplanar MR imaging of the thoracic spine was performed without and with contrast. CLINICAL HISTORY: recent epidural abscess/discitis T3 osteo inc pain COMPARISON: 03/15/2023 FINDINGS: There is disc degeneration at multiple levels. There is a fracture of T3 with 60% loss of height and T4 with 40% loss of height, worse from prior exam. There is abnormal signal and contrast-enhancement of the T2-T3 vertebral bodies and disc consistent with discitis/osteomyelitis. There is contrast-enhancing surrounding soft tissue which extends into the spinal canal consistent with inflammatory soft tissue. This resulted in mild central canal stenosis at T2-3 with an AP diameter of the thecal sac measures 8 mm. There has been interval postoperative change at this level with laminectomies and interval improvement of prevertebral soft tissue swelling. There is irregularity of the inferior endplate of T2. IMPRESSION: T2-3 discitis/osteomyelitis with surrounding inflammatory soft tissue resulting in mild canal stenosis. Interval postoperative changes of T2-3 laminectomies. Improved prevertebral presumed fluid collection. Mild, stable T4 compression fracture. Reviewed, Interpreted and Dictated by Rick Villagomez III, MD Transcribed by Maria G Prado Authenticated and [facility]
--- NOTE | 2023-04-21 10:16 | PC.NURSE ---
MD would like MRI of t-spine. Called technical services librarian and care management, they will be able to complete this today. Order placed and MD aware.
--- NOTE | 2023-04-21 10:18 | PC.NURSE ---
spoke with dale in MRI. states she will be to get pt as a work in today. Cleared by CORINNE.
--- NOTE | 2023-04-21 10:18 | HMH.EDGENADL ---
Discharge Plan Disposition Chief Complaint: PAIN Prescriptions Prescriptions: No Action cyanocobalamin (vitamin B-12) 1,000 mcg/mL solution 1,000 mcg IM MONTHLY Linzess 72 mcg capsule 72 mcg PO DAILY cholecalciferol (vitamin D3) 50 mcg (2,000 unit) tablet 2,000 unit PO DAILY sertraline 100 mg tablet 200 mg PO DAILY Qty: 60 2RF lorazepam [Ativan] 0.5 mg tablet 0.5 mg PO BID PRN (Reason: anxiety) Qty: 60 1RF omeprazole 40 mg capsule,delayed release(DR/EC) 40 mg PO DAILY Patient Comments: TAKE 1 CAPSULE BY MOUTH ONCE DAILY levothyroxine 200 mcg tablet 200 mcg PO DAILY Patient Comments: TAKE 1 TABLET BY MOUTH ONCE DAILY gabapentin 100 mg Capsule 100 mg PO BID daptomycin 350 mg recon soln 350 mg IV Q24H Rx Instructions: administer over 30 mins hydrocodone-acetaminophen 5-325 mg tablet 1 tab PO Q6H PRN (Reason: pain) 3 Days Qty: 12 0RF Referrals Follow up/Referrals: Luis Henderson MD [Primary Care Provider] - See instructions Aneesh Robledo MD [Staff Physician] - See instructions Activity Restrictions/Add. Instructions Additional Instructions/Restrictions: Your MRI today showed an improvement in your epidural abscess and ongoing osteomyelitis for which you are currently getting IV antibiotics through your PICC line. Please continue to follow-up with [facility] infectious [facility]. There is no evidence of any new epidural abscess or new pathology that would require neurosurgical intervention today. No evidence of sepsis or worsening infection today. A referral has been made to Dr. Robledo for your chronic pain control please return with high fevers or any other concerns. Clinical Impressions Clinical Impression: Post-op pain, Contracture of muscle of both lower legs, Chronic osteomyelitis of spine Discharge ED Provider: Felicia Garcia General Adult HPI General Chief complaint: PAIN Stated complaint: pain Time Seen by Provider: 04/21/23 09:45 Mode of Arrival: EMS Source of Information: Patient, Significant Other, EMS and Medical Record Limitations: Physical Limitations Description of Symptoms (Recalled from ER Triage Doc. by RN): Pt c/o worsening chronic bilateral leg pain. States she had back surgery 1 mn ago and has had issues with her legs since. She reports I can't do anything with them, please they hurt . She has a chronic indwelling jacobs catheter as well, last changed 04/01/23. Her jacobs bag is leaking upon inspection. She had PICC line in place for usp IV ABX for post op infection. Denies fever, chills, or n/v/d. History of Present Illness HPI narrative: Patient is a 62-year-old female with a history of cerebral palsy neurogenic bladder chronic frequent UTIs presents today with back pain. Patient was initially seen in February 2023 had a fall and upper thoracic back pain where she was found to have a T3 burst fracture which was 1 month old at the time of presentation. At that time I spoke with Dr. Castanon we will get a get the patient in for outpatient management and referral to a spine surgeon she had no retropulsion that was significant and no new neurologic symptoms at that time. Since that time she had some progressive pain and weakness in the lower extremities and she returned back to the emergency department where she was found to have an expanding soft tissue mass which was concerning for hematoma she was transferred to for further evaluation and treatment. She had a CT of her chest that showed a 4.9 x 2.5 x 5 paravertebral and prevertebral mass or fluid collection at T2-T3 with possible T2-T3 endplate osteolysis and fracture also there is some narrowing of her esophagus and the trachea T3. On 03 16 she had an MRI showing the same that showed T1-T3 dorsal fluid collection she had an I&D and a T1-T2 laminectomy gross purulence was seen and cultures grew MRSA. She was seen on 04/17/[address] Loving with infectious disease and she completed induction therap
[2023-04-21 10:19] LABS: Basophils % 0.4 % (0.1-2.0); Eosinophils # 0.2 K/mm3 (0.0-0.4); Eosinophils % 3.9 % (0.1-12.0); Hematocrit 33.8 % (37.0-47.0); Hemoglobin 10.4 g/dL (12.2-16.2); Lymphocytes % 17.3 % (10-50); Mean Corpuscular HGB Conc 30.8 g/dL (31.8-35.4); Mean Corpuscular Hemoglobin 25.2 pg (27.0-31.2); Mean Corpuscular Volume 81.9 fl (81-99); Mean Platelet Volume 8.3 fl (7.4-10.4); Monocytes # 0.3 K/mm3 (0.1-1.0); Monocytes % 4.3 % (1.7-9.3); Neutrophils # 4.4 K/mm3 (1.8-7.8); Neutrophils % 74.1 % (37.0-80.0); Platelet Count 220 K/mm3 (142-424); Red Blood Count 4.13 M/mm3 (4.20-5.40); Red Cell Distribution Width 18.2 % (11.5-17.5); White Blood Count 5.9 K/mm3 (4.8-10.8)
[2023-04-21 10:31] LABS: Alanine Aminotransferase 18 U/L (12-78); Albumin Level 3.5 g/dl (3.5-5.0); Anion Gap 10.5 mEq/L (5-15); Aspartate Amino Transferase 30 U/L (14-36); Bilirubin,Total 0.4 mg/dl (0.2-1.3); Blood Urea Nitrogen 15 mg/dl (7-17); Carbon Dioxide 27 mmol/L (22.0-30.0); Chloride 105 mmol/L (98-107); Creatinine Clearance Estimated 53 mL/min (50-200); Estimated Glomerular Filt Rate 161 ml/min (>60); GFR (African American) 194 ML/MIN (>60); Glucose 104 mg/dl (74-100); Potassium 4.5 mmoL/L (3.5-5.1); Sodium 138 mmol/L (136-145)
[2023-04-21 10:32] LABS: Alkaline Phosphatase 88 U/L (38-126); Globulin 3.5 g/dL (1.3-3.2)
[2023-04-21 10:41] LABS: Lactic Acid 0.7 mmol/L (0.7-2.1)
[2023-04-21 10:41] LABS: C-Reactive Protein 24.7 mg/L (0-4)
--- NOTE | 2023-04-21 10:50 | PC.NURSE ---
MRI states approx 1130 for MRI. pt updated
--- NOTE | 2023-04-21 10:51 | PC.NURSE ---
pt & spouse updated on time for MRI, they report about 1130am they should be down to get pt.
--- NOTE | 2023-04-21 11:36 | PC.NURSE ---
pt to MRI via stretcher
[2023-04-21 11:39] LABS: Erythrocyte Sedimentation Rate > 140 mm/hr (0-30)
--- NOTE | 2023-04-21 12:34 | PC.NURSE ---
Lo from [facility] called for a update. I updated her on pt's plan and tests thus far.
--- NOTE | 2023-04-21 12:48 | PC.NURSE ---
checked on pt's , offered a drink, snack, or lunch. He reports he is doing well and was just going to rest while pt was away.
--- NOTE | 2023-04-21 15:18 | PC.NURSE ---
ER MD discussed plan of care and discharge. pt is unhappy not to be going home with however pt is unable to care for her at home. she will need extensive PT and custodial antibiotics. RN has called report back to [facility]. EMS has been contacted for transfer. d/c packet printed for facility
--- NOTE | 2023-04-21 15:19 | PC.NURSE ---
called EMS for transport back to [facility]
--- NOTE | 2023-04-21 16:21 | PC.NURSE ---
ems on scene for tx back to [facility]
== END 2023-04-21 16:28 ==
PROVIDERS: Student in an Organized Health Care Education/Training Program; Emergency Provider Emergency Medicine; PCP Internal Medicine Adolescent Medicine
DX: M62.461 Contracture of muscle, right lower leg (principal); M62.462 Contracture of muscle, left lower leg; M46.24 Osteomyelitis of vertebra, thoracic region; G80.9 Cerebral palsy, unspecified; F32.A Depression, unspecified; F41.1 Generalized anxiety disorder; I10 Essential (primary) hypertension; E78.5 Hyperlipidemia, unspecified; M81.0 Age-related osteoporosis without current pathological fracture; N31.9 Neuromuscular dysfunction of bladder, unspecified
CPT/HCPCS: 72157; 80053; 83605; 85025; 85651; 86140; 87040; 96361; 96374; 96375; 99285; A9576; J2405

== ENCOUNTER 2023-06-13 18:26 | Emergency (ER) | payer MEDICARE, MEDICAID, SELFPAY ==
[2023-06-13] VITALS (18 sets, daily range): BP systolic 82–149; BP diastolic 55–93; PULSE 104–125; RESP 14–27; TEMP 37.3; O2SAT 94–100; BMI 24.0
--- NOTE | 2023-06-13 18:58 | PC.NURSE ---
Seizure pads placed on bed rails
[2023-06-13 19:18] LABS: Basophils # 0.1 K/mm3 (0-0.2); Basophils % 0.7 % (0.1-2.0); Eosinophils # 0.2 K/mm3 (0.0-0.4); Eosinophils % 2.6 % (0.1-12.0); Hematocrit 45.2 % (37.0-47.0); Hemoglobin 14.1 g/dL (12.2-16.2); Lymphocytes # 0.7 K/mm3 (0.7-4.5); Lymphocytes % 11.2 % (10-50); Mean Corpuscular HGB Conc 31.2 g/dL (31.8-35.4); Mean Corpuscular Hemoglobin 24.4 pg (27.0-31.2); Mean Platelet Volume 9.1 fl (7.4-10.4); Monocytes # 0.2 K/mm3 (0.1-1.0); Monocytes % 2.8 % (1.7-9.3); Neutrophils # 5.4 K/mm3 (1.8-7.8); Neutrophils % 82.6 % (37.0-80.0); Platelet Count 193 K/mm3 (142-424); Red Blood Count 5.79 M/mm3 (4.20-5.40); Red Cell Distribution Width 17.2 % (11.5-17.5); White Blood Count 6.5 K/mm3 (4.8-10.8)
[2023-06-13 19:20] LABS: Lactic Acid 0.9 mmol/L (0.7-2.1)
--- NOTE | 2023-06-13 19:30 | PC.NURSE ---
Patient in bed with seizure pads on. Alert to self. Urine took from new cath bag and sent to lab. No needs or complaints at this time.
[2023-06-13 19:31] LABS: Alanine Aminotransferase 17 U/L (12-78); Albumin Level 4.2 g/dl (3.5-5.0); Albumin/Globulin Ratio 1.1 (1.1-1.8); Alkaline Phosphatase 68 U/L (38-126); Anion Gap 15.5 mEq/L (5-15); Aspartate Amino Transferase 34 U/L (14-36); Bilirubin,Total 0.5 mg/dl (0.2-1.3); Blood Urea Nitrogen 25 mg/dl (7-17); Calcium 9.2 mg/dl (8.4-10.2); Carbon Dioxide 26 mmol/L (22.0-30.0); Chloride 103 mmol/L (98-107); Creatinine Clearance Estimated 56 mL/min (50-200); Estimated Glomerular Filt Rate 160 ml/min (>60); GFR (African American) 194 ML/MIN (>60); Globulin 3.7 g/dL (1.3-3.2); Glucose 135 mg/dl (74-100); Potassium 4.5 mmoL/L (3.5-5.1); Sodium 140 mmol/L (136-145); Total Protein,Serum 7.9 g/dl (6.3-8.2)
[2023-06-13 19:34] LABS: Microscopic, Urine URINE MICROSCOPIC (MICROSCOPIC)
[2023-06-13 20:23] LABS: Appearance,Urine CLEAR (Clear); Bilirubin,Urine Negative (Negative); Blood, Urine 2+ (Negative); Color,Urine YELLOW (Yellow); Glucose,Urine (UA) Negative (Negative); Ketones,Urine Negative (Negative); Leukocyte Esterase,Urine 2+ (Negative); Nitrate,Urine POSITIVE (Negative); Protein,Urine Negative (Negative); Urobilinogen,Urine 0.2 EU/dl (0.2)
[2023-06-13 20:35] LABS: Bacteria,Urine Trace /lpf
--- NOTE | 2023-06-13 20:50 | PC.NURSE ---
at bedside at this time.
--- NOTE | 2023-06-13 21:40 | CT_ITS ---
PROCEDURE INFORMATION: Exam: CT Head Without Contrast Exam date and time: 06/13/2023 11:02 PM Age: 63 years old Clinical indication: Other: Seizure TECHNIQUE: Imaging protocol: Computed tomography of the head without contrast. Radiation optimization: All CT scans at this facility use at least one of these dose optimization techniques: automated exposure control; mA and/or kV adjustment per patient size (includes targeted exams where dose is matched to clinical indication); or iterative reconstruction. REPORTING DATA: Count of CT and Cardiac NM exams in prior 12 months: This patient has received 8 known CTs and 0 known cardiac nuclear medicine studies in the 12 months prior to the current study. COMPARISON: CT HEAD/BRAIN WO CON 11/15/2022 8:54 PM FINDINGS: Brain: There are calcifications of the pineal gland. The brain parenchyma appears normal for an elderly patient, with no evidence of acute ischemia, hemorrhage, or masses. The slaughter-white matter differentiation is preserved. Mild periventricular white matter hypodensities are consistent with chronic small vessel ischemic changes, which are often seen in elderly patients and are not indicative of acute pathology. There is calcification of the falx cerebrum. Cerebral ventricles: There is a persistent cavum septum pellucidum. Ventricles and sulci are consistent with patient age, showing mild age-related atrophy but no significant enlargement. There are calcifications of the choroid plexus. Paranasal sinuses: There are scattered areas of sinus mucosal thickening. The orbits and paranasal sinuses are free of marked disease. No opacifications are observed in the visible sinus cavities. Mastoid air cells: Visualized mastoid air cells are well aerated. Nasal cavity: There is rightward deviation of the bony nasal septum. Bones/joints: The cranial bones are intact with no signs of fractures or lytic lesions. Soft tissues: Unremarkable. IMPRESSION: In this patient, the head CT reveals no evidence of acute intracranial pathology. The observed structures including the brain parenchyma, vascular structures, cranial bones, and soft tissues appear within normal limits, except for age-related atrophic and chronic ischemic changes which are not unexpected for this age group.
--- NOTE | 2023-06-13 23:36 | PC.NURSE ---
round made nothing needed at this time
[2023-06-14] VITALS (14 sets, daily range): BP systolic 94–139; BP diastolic 57–86; PULSE 45–125; RESP 15–24; TEMP 36.6; O2SAT 82–100
--- NOTE | 2023-06-14 00:34 | PC.NURSE ---
report called to [facility], talked to Kitty
--- NOTE | 2023-06-14 01:04 | HMH.EDGENADL ---
Discharge Plan Disposition Patient Disposition: Home, Self-Care Condition: Good Prescriptions Prescriptions: No Action cyanocobalamin (vitamin B-12) 1,000 mcg/mL solution 1,000 mcg IM MONTHLY Linzess 72 mcg capsule 72 mcg PO DAILY cholecalciferol (vitamin D3) 50 mcg (2,000 unit) tablet 2,000 unit PO DAILY sertraline 100 mg tablet 200 mg PO DAILY Qty: 60 2RF lorazepam [Ativan] 0.5 mg tablet 0.5 mg PO BID PRN (Reason: anxiety) Qty: 60 1RF omeprazole 40 mg capsule,delayed release(DR/EC) 40 mg PO DAILY Patient Comments: TAKE 1 CAPSULE BY MOUTH ONCE DAILY levothyroxine 200 mcg tablet 200 mcg PO DAILY Patient Comments: TAKE 1 TABLET BY MOUTH ONCE DAILY gabapentin 100 mg Capsule 100 mg PO BID daptomycin 350 mg recon soln 350 mg IV Q24H Rx Instructions: administer over 30 mins hydrocodone-acetaminophen 5-325 mg tablet 1 tab PO Q6H PRN (Reason: pain) 3 Days Qty: 12 0RF Referrals Follow up/Referrals: Luis Henderson MD [Primary Care Provider] - See instructions Activity Restrictions/Add. Instructions Additional Instructions/Restrictions: Please continue to take your seizure medication as directed, please follow-up with neurology.Please return to the emergency department if you experience any new or worsening symptoms. Clinical Impressions Clinical Impression: Breakthrough seizure Instructions Patient Instructions: DI for Seizure Disorder -- Adult, DI for Seizure (Not Epilepsy/Seizure Disorder), DI for Seizure Disorder -- Child Discharge ED Provider: Pino Thurston General Adult HPI <Pino Thurston MD - Last Filed: 06/14/23 18:43> General Chief complaint: Seizure Stated complaint: Seizure like activity Time Seen by Provider: 06/13/23 21:21 Mode of Arrival: EMS Limitations: pt able to answer some questions Description of Symptoms (Recalled from ER Triage Doc. by RN): Per EMS reports skilled nursing staff stated pt has had 4 episodes of seizure like activity today. States 2 episodes of absence and 2 episodes of muffled tremors with some confusion noted afterward. EMS reports they were told pt has hx of unspecific convulsions but not treated for seizures. Pt arrives to ED alert, able to answer some questions, oriented to place/person History of Present Illness HPI narrative: Patient presents from skilled nursing after having 4 reported seizures today. No reported head injury. No known precipitating factors. I was called emergently to bedside to evaluate patient who was convulsing, exam consistent with generalized tonic-clonic seizure. Symptoms resolved after approximately 1 minute. Additional history unobtainable secondary to altered mental status Related Data Home Medications Medication Instructions Recorded Confirmed cyanocobalamin (vitamin B-12) 1,000 mcg IM MONTHLY Supplement 11/04/18 06/14/23 1,000 mcg/mL injection solution linaclotide 72 mcg capsule 72 mcg PO DAILY IBS 11/04/18 06/14/23 (Linzess) cholecalciferol (vitamin D3) 50 2,000 unit PO DAILY Supplement 10/11/19 06/14/23 mcg (2,000 unit) tablet levothyroxine 200 mcg tablet 200 mcg PO DAILY THYROID 02/14/23 06/14/23 omeprazole 40 mg capsule,delayed 40 mg PO DAILY Acid reflux 02/14/23 06/14/23 release gabapentin 100 mg capsule 100 mg PO BID neuropathy 02/15/23 06/14/23 daptomycin 350 mg intravenous 350 mg IV Q24H cellulitis 02/25/23 06/14/23 solution Previous Rx's Medication Instructions Recorded lorazepam 0.5 mg tablet (Ativan) 0.5 mg PO BID PRN anxiety #60 tabs 02/26/23 sertraline 100 mg tablet 200 mg PO DAILY mood #60 tabs 02/26/23 hydrocodone 5 mg-acetaminophen 325 1 tab PO Q6H PRN pain 3 days #12 03/10/23 mg tablet tabs Allergies Allergy/AdvReac Type Severity Reaction Status Date / Time metoclopramide [From REGLAN] Allergy Mild I-RASH Verified 02/28/23 11:11 Sulfa (Sulfonamide Allergy Mild I-RASH Verified 02/28/23 11:11 Antibiotics)
--- NOTE | 2023-06-14 02:25 | PC.NURSE ---
Assisted to reposition patient and provided additional blanket for comfort at this time.
--- NOTE | 2023-06-14 06:28 | PC.NURSE ---
readjusted the patient multiple in the bed with no comfort spot found.
--- NOTE | 2023-06-14 06:36 | PC.NURSE ---
in room talking with patient at this time
--- NOTE | 2023-06-14 06:51 | PC.NURSE ---
Pt turned in bed per request. Advised If you dont get me home I'm going to call the umbrella finisher Pt educated that we are waiting for ambulance availability to transfer her back to [facility]. No ambulance available at this time due [place] of [place].
--- NOTE | 2023-06-14 07:22 | PC.NURSE ---
[facility] here to collect pt for transport back to [facility] @ [facility]
--- NOTE | 2023-06-19 08:00 | PC.NURSE ---
urine culture result on worklist- greater than 2 organisms recovered. [id number]- Notified Dr. Burroughs (ER MD on shift at this time). He reviewed pts chart. Gave verbal order for Macrobid 100mg PO BID x5 days. Pt is resident of [facility], called and spoke with Lo Fox LPN- notified her of urine culture result and Dr. Burroughs wanting to start pt on antibiotics. She took Verbal order for Macrobid 100 mg po BID x5 days. She requested urine culture results be faxed to facility - [phone], will fax culture and u/a results.
== END 2023-06-14 07:25 | disposition home or self-care (01) ==
PROVIDERS: Emergency Provider Emergency Medicine; PCP Internal Medicine Adolescent Medicine
DX: G40.909 Epilepsy, unspecified, not intractable, without status epilepticus (principal); B96.89 Other specified bacterial agents as the cause of diseases classified elsewhere; I10 Essential (primary) hypertension; E78.5 Hyperlipidemia, unspecified; K21.9 Gastro-esophageal reflux disease without esophagitis; M81.8 Other osteoporosis without current pathological fracture; F41.1 Generalized anxiety disorder; F32.A Depression, unspecified
CPT/HCPCS: 70450; 80053; 81001; 83605; 85025; 87086; 96361; 96374; 96375; 99284; J1953

== ENCOUNTER 2023-07-14 19:12 | Emergency (ER) | payer MEDICARE, MEDICAID, SELFPAY ==
[2023-07-14] VITALS (10 sets, daily range): BP systolic 103–145; BP diastolic 66–92; PULSE 85–112; RESP 15–26; TEMP 36.9–37.1; O2SAT 96–100; BMI 19.8
--- NOTE | 2023-07-14 20:28 | HMH.EDGENADL ---
Discharge Plan Disposition Patient Disposition: Home, Self-Care Prescriptions Prescriptions: New cefdinir 300 mg capsule 300 mg PO BID 10 Days Qty: 20 0RF No Action cyanocobalamin (vitamin B-12) 1,000 mcg/mL solution 1,000 mcg IM MONTHLY Linzess 72 mcg capsule 72 mcg PO DAILY cholecalciferol (vitamin D3) 50 mcg (2,000 unit) tablet 2,000 unit PO DAILY sertraline 100 mg tablet 200 mg PO DAILY Qty: 60 2RF lorazepam [Ativan] 0.5 mg tablet 0.5 mg PO BID PRN (Reason: anxiety) Qty: 60 1RF omeprazole 40 mg capsule,delayed release(DR/EC) 40 mg PO DAILY Patient Comments: TAKE 1 CAPSULE BY MOUTH ONCE DAILY levothyroxine 200 mcg tablet 200 mcg PO DAILY Patient Comments: TAKE 1 TABLET BY MOUTH ONCE DAILY gabapentin 100 mg Capsule 100 mg PO BID daptomycin 350 mg recon soln 350 mg IV Q24H Rx Instructions: administer over 30 mins hydrocodone-acetaminophen 5-325 mg tablet 1 tab PO Q6H PRN (Reason: pain) 3 Days Qty: 12 0RF nitrofurantoin monohyd/m-cryst [Macrobid] 100 mg capsule 100 mg PO BID 5 Days Qty: 10 0RF Rx Instructions: must administer with a meal/food Referrals Follow up/Referrals: Provider,Referral, MD [Referring] - See instructions Activity Restrictions/Add. Instructions Additional Instructions/Restrictions: Call your family doctor to establish care for this visit to the emergency department and schedule follow-up within 48 hours to ensure improvement. If you have any worsening of your condition or any other concerning signs or symptoms, return to the emergency department or your primary care doctor for further evaluation. Cefdinir twice daily for 10 days. Clinical Impressions Clinical Impression: Pyelonephritis Discharge ED Provider: Trevon Clark General Adult HPI General Chief complaint: PAIN Stated complaint: Pain Time Seen by Provider: 07/14/23 19:17 Mode of Arrival: EMS Source of Information: Patient and EMS Limitations: Physical Limitations Description of Symptoms (Recalled from ER Triage Doc. by RN): Patient from [facility] c/p chronic leg pain that is not resolved with home pain medication. History of Present Illness HPI narrative: 63-year-old female history of hypertension, hyperlipidemia, neurogenic bladder secondary to cerebral palsy, recent ORIF of thoracic back fracture presenting with bilateral lower extremity spasming. Patient states that she was having atraumatic lower extremity spasming this been refractory to pain medications and nerve medicines at home. Has been constant. 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 Patient appears to be in no acute distress, but states that she is currently having excruciating pain in bilateral lower extremities, primarily in lower back and hips that radiates down her bilateral legs. Gastelum catheter has not been changed in approximately 4 weeks, per patient. Related Data Home Medications Medication Instructions Recorded Confirmed cyanocobalamin (vitamin B-12) 1,000 mcg IM MONTHLY Supplement 11/04/18 06/14/23 1,000 mcg/mL injection solution linaclotide 72 mcg capsule 72 mcg PO DAILY IBS 11/04/18 06/14/23 (Linzess) cholecalciferol (vitamin D3) 50 2,000 unit PO DAILY Supplement 10/11/19 06/14/23 mcg (2,000 unit) tablet levothyroxine 200 mcg tablet 200 mcg PO DAILY THYROID 02/14/23 06/14/23 omeprazole 40 mg capsule,delayed 40 mg PO DAILY Acid reflux 02/14/23 06/14/23 release gabapentin 100 mg capsule 100 mg PO BID neuropathy 02/15/23 06/14/23 daptomycin 350 mg intravenous 350 mg IV Q24H cellulitis 02/25/23 06/14/23 solution Previous Rx's Medication Instructions Recorded lorazepam 0.5 mg tablet (Ativan) 0.5 mg PO BID PRN anxiety #60 tabs 02/26/23 sertraline 100 mg tablet 200 mg PO DAILY mood #60 tabs 02/26/23 hydrocodone 5 mg-a
[2023-07-14 20:36] LABS: Microscopic, Urine URINE MICROSCOPIC (MICROSCOPIC)
[2023-07-14 20:54] LABS: Appearance,Urine TURBID (Clear); Bilirubin,Urine Negative (Negative); Blood, Urine 1+ (Negative); Color,Urine YELLOW (Yellow); Glucose,Urine (UA) Negative (Negative); Ketones,Urine Negative (Negative); Leukocyte Esterase,Urine 2+ (Negative); Nitrate,Urine POSITIVE (Negative); PH,Urine 8.5 (5.0-8.5); Protein,Urine 3+ (Negative); Specific Gravity, Urine 1.015 (1.005-1.030)
[2023-07-14 21:01] LABS: Basophils % 0.6 % (0.1-2.0); Eosinophils # 0.2 K/mm3 (0.0-0.4); Eosinophils % 3.3 % (0.1-12.0); Hematocrit 39.4 % (37.0-47.0); Hemoglobin 12.9 g/dL (12.2-16.2); Lymphocytes # 1.1 K/mm3 (0.7-4.5); Lymphocytes % 19.2 % (10-50); Mean Corpuscular HGB Conc 32.7 g/dL (31.8-35.4); Mean Corpuscular Hemoglobin 25.3 pg (27.0-31.2); Mean Corpuscular Volume 77.4 fl (81-99); Mean Platelet Volume 8.5 fl (7.4-10.4); Monocytes # 0.3 K/mm3 (0.1-1.0); Monocytes % 4.3 % (1.7-9.3); Neutrophils # 4.2 K/mm3 (1.8-7.8); Neutrophils % 72.6 % (37.0-80.0); Platelet Count 166 K/mm3 (142-424); Red Blood Count 5.09 M/mm3 (4.20-5.40); Red Cell Distribution Width 18.3 % (11.5-17.5); White Blood Count 5.8 K/mm3 (4.8-10.8)
[2023-07-14 21:07] LABS: Amorphous Sediment,Urine 1+ /lpf; Bacteria,Urine 2+ /lpf; RBC,Urine Occasional #/hpf (0-3)
--- NOTE | 2023-07-14 21:12 | PC.NURSE ---
Provided patient with warm blankets and repositioned to comfort.
[2023-07-14 21:18] LABS: Chloride 105 mmol/L (98-107)
[2023-07-14 21:19] LABS: Potassium 4.1 mmoL/L (3.5-5.1); Sodium 140 mmol/L (136-145)
[2023-07-14 21:21] LABS: Alanine Aminotransferase 15 U/L (12-78); Alkaline Phosphatase 59 U/L (38-126); Anion Gap 12.1 mEq/L (5-15); Aspartate Amino Transferase 35 U/L (14-36); Bilirubin,Total 0.4 mg/dl (0.2-1.3); Blood Urea Nitrogen 26 mg/dl (7-17); Carbon Dioxide 27 mmol/L (22.0-30.0); Creatinine Clearance Estimated 49 mL/min (50-200); Estimated Glomerular Filt Rate 124 ml/min (>60); GFR (African American) 150 ML/MIN (>60)
[2023-07-14 21:22] LABS: Albumin Level 4.1 g/dl (3.5-5.0); Albumin/Globulin Ratio 1.2 (1.1-1.8); Calcium 8.7 mg/dl (8.4-10.2); Globulin 3.3 g/dL (1.3-3.2); Glucose 111 mg/dl (74-100); Total Protein,Serum 7.4 g/dl (6.3-8.2)
--- NOTE | 2023-07-14 21:59 | PC.NURSE ---
paged dr redd
--- NOTE | 2023-07-14 22:38 | PC.NURSE ---
repeat paged dr redd d/t no response from previous page
--- NOTE | 2023-07-14 22:52 | PC.NURSE ---
spoke with Cristofer at [facility] for patient transfer back to [facility]. States that once other ambulance is back in [facility], they will arrive for patient transport.
--- NOTE | 2023-07-14 22:56 | PC.NURSE ---
Report called to Edward Bartlett at [facility].
--- NOTE | 2023-07-18 11:14 | PC.NURSE ---
urine culture preliminary result- gram negative rods notified dr. valladares pt on cefdinir at d/c from ER dr. valladares states no further action needed at this time
== END 2023-07-14 23:51 | disposition home or self-care (01) ==
PROVIDERS: Emergency Provider Emergency Medicine; PCP Internal Medicine Adolescent Medicine
DX: N10 Acute pyelonephritis (principal); B96.89 Other specified bacterial agents as the cause of diseases classified elsewhere; M62.838 Other muscle spasm; M79.604 Pain in right leg; M79.605 Pain in left leg; G80.9 Cerebral palsy, unspecified; I10 Essential (primary) hypertension; E78.5 Hyperlipidemia, unspecified; N31.9 Neuromuscular dysfunction of bladder, unspecified; K21.9 Gastro-esophageal reflux disease without esophagitis; F41.1 Generalized anxiety disorder; F32.A Depression, unspecified; Z96.0 Presence of urogenital implants
CPT/HCPCS: 80053; 81001; 85025; 87086; 96365; 96375; 99284; J0131; J0696

== ENCOUNTER → 2023-07-30 15:12 | Outpatient (POV) | payer MEDICARE, MEDICAID, SELFPAY ==
--- NOTE | 2023-07-30 15:16 | EXP.PAIN.SOA ---
[facility] Pain Management SOAP Note Subjective:: Patient is a pleasant 63-year-old female who presents today for follow-up. We are currently treating the patient for degenerative disc disease of lumbar spine with lumbar radiculopathy symptoms, greater trochanteric bursitis, osteoarthritis of the left knee, sacroiliitis, bilateral hip pain. Today she rates her pain a 9 out of 10. Patient states back towards the end of February she was getting up out of bed where her legs gave out and she fell back directly onto her back. Patient states that she did end up having to go to where she did end up getting diagnosed with a T3 burst fracture and did have surgery. Patient did have a T2-T3 laminectomy. Patient states she did well with this however then she had issues with abscess and osteomyelitis. Patient states she is in [facility] now continuing to do rehab and that she is continue to have issues with the loss of use of her legs. She states she has some numbness and tingling into them but has not regained her strength and mobility. Patient does state today that her hips are bothering her like they were before in the past. She does describe this as an aching, throbbing, sharp sensation that is worse with increased ambulation or activity. Patient states it does interfere with her ability to perform activities of daily living. Patient has had intra-articular hip injections in the past that did provide significant relief. She is interested in repeating this option. 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 Patient continues to see a neurologist. Patient also states she had a knot pop up on her right leg that she did talk to her physician about however he was not concerned. Patient states she has no pain at this site however the large knot is concerning to her. Patient is currently managed with gabapentin 100 mg twice a day and lorazepam 0.5 mg twice a day from her primary care doctor. She does use a wheelchair occasionally for help with ambulation. She also uses a knee brace for additional support. Her Claus has been reviewed and is appropriate. Review of Systems: General: No recent weight changes, no fever, no sleep disturbances Respiratory: No cough, no shortness of air, no recurring pulmonary infections Cardiovascular/peripheral vascular: No chest pain, no palpitations, no edema, no shortness of breath Gastrointestinal: No new onset incontinence, normal bowel movements reported Genitourinary: No new onset incontinence Musculoskeletal: Bilateral hip pain Psychiatric: [Normal mood/affect] Neurological: [Denies weakness in extremities], [denies balance issues] Objective:: Physical Exam: General: Alert and oriented x3, no acute distress, pleasant and cooperative Lungs: Respirations even and unlabored, symmetrical chest expansion Eyes: PERRL Musculoskeletal: Flexion and extension of bilateral hips somewhat guarded secondary to pain, [antalgic gait noted] Neurological: Speech clear, no gross sensory deficit Assessment:: degenerative disc disease of lumbar spine with lumbar radiculopathy symptoms, greater trochanteric bursitis, osteoarthritis of the left knee, sacroiliitis bilateral hip pain Plan:: Patient is experiencing worsening pain in her bilateral hips with limited range of motion. I have discussed with the patient that she may benefit from intra-articular hip injections. Risk and benefits were discussed with the patient and she would like to proceed forward with this plan of care. Patient denies any active infection. We will schedule the patient for bilateral hip intra-articular injections. Patient has been instructed to contact the clinic with any concerns before the next appointment. Dr. Robledo has reviewed this note and agrees with this plan of care. This note was dictated using voice recognition software and
[2023-07-30 15:33] VITALS: BP 150/78; PULSE 110; RESP 18; O2SAT 96; BMI 19.8
== END ==
PROVIDERS: PCP Internal Medicine Adolescent Medicine; Visit Provider Nurse Practitioner Family
DX: M51.16 Intervertebral disc disorders with radiculopathy, lumbar region (principal); M70.60 Trochanteric bursitis, unspecified hip; M17.12 Unilateral primary osteoarthritis, left knee; M46.1 Sacroiliitis, not elsewhere classified; M25.551 Pain in right hip; M25.552 Pain in left hip
CPT/HCPCS: 99212; G0463

== ENCOUNTER 2023-08-22 10:56 | Day surgery (SDC) | payer MEDICARE, MEDICAID, SELFPAY ==
[2023-08-22 11:11] VITALS: BP 118/69; PULSE 91; RESP 16; O2SAT 91; BMI 19.7
--- NOTE | 2023-08-22 11:46 | PC.NURSE ---
PROCEDURED CANCELED PER PROVIDER
[2023-08-22 12:05] VITALS: BP 118/69; PULSE 91; O2SAT 93
--- NOTE | 2023-08-22 12:21 | P.PCN_ITS ---
Procedure Date: 08/22/23 Time: 12:00 Anesthesiologist:: Francisco Javier Mcdonald CRNA Complications:: None Pre-procedure Diagnosis:: Bilateral sacroiliitis. Post-procedure Diagnosis:: Same. Indications for Procedure:: Patient is a pleasant 63-year-old female comes to clinic today for bilateral sacroiliac joint injections. Patient is wheelchair-bound. Nonambulatory. Patient has extreme point tenderness over the bilateral sacroiliac joints. Patient complains of low lumbar bilateral posterior hip pain. Rates her pain 7/10. Procedure Details:: Procedure: Bilateral sacroiliac joint injections under fluoroscopy Informed consent was obtained and the risks and benefits of the procedure were explained to the patient.~ The patient was taken to the procedure room and noninvasive monitors were placed including a noninvasive blood pressure cuff and pulse oximeter.~ The patient was placed prone on the procedure table. Both hips were cleansed using Betadine as a cleansing solution. C-arm fluoroscopy was used to view the right sacroiliac joint.~ The skin and subcutaneous tissues were anesthetized using lidocaine 1.5% and a 25-gauge needle.~ After this, a 22-gauge spinal needle was inserted under fluoroscopic guidance into the inferior aspect of the right sacroiliac joint.~ Omnipaque dye was injected and good spread was seen throughout the joint.~ After this, approximately 5 mL of bupivacaine, 0.25% and Depo-Medrol, 40 mg was incrementally injected into the right sacroiliac joint. We then moved to the left sacroiliac joint.~ The skin and subcutaneous tissues were anesthetized using lidocaine 1.5% and a 25-gauge needle.~ After this, a 22- gauge spinal needle was inserted under fluoroscopic guidance into the inferior aspect of the left sacroiliac joint.~ Omnipaque dye was injected and good spread was seen throughout the joint. After this, approximately 5 mL of bupivacaine, 0.25% and Depo-Medrol, 40 mg was incrementally injected into the left sacroiliac joint.~ The patient tolerated the procedure well with no complications. The patient was observed in the Pain Clinic and then was discharged home neurologically intact. Plan and Disposition:: Patient was discharged without incident.
== END 2023-08-22 12:05 | disposition home or self-care (01) ==
LOC: SC.PAINP 10:57
PROVIDERS: PCP Internal Medicine Adolescent Medicine; Visit Provider Nurse Anesthetist, Certified Registered
DX: M46.1 Sacroiliitis, not elsewhere classified (principal); Z99.3 Dependence on wheelchair
CPT/HCPCS: 27096; G0260; J1040

== ENCOUNTER 2023-09-14 17:41 | Emergency (ER) | payer MEDICARE, MEDICAID, SELFPAY ==
[2023-09-14] VITALS (10 sets, daily range): BP systolic 100–159; BP diastolic 78–108; PULSE 79–110; RESP 18–19; TEMP 37.1; O2SAT 95–97; BMI 19.7
--- NOTE | 2023-09-14 18:00 | ED_ITS ---
Discharge Plan Disposition Patient Disposition: Home, Self-Care Prescriptions Prescriptions: No Action cyanocobalamin (vitamin B-12) 1,000 mcg/mL solution 1,000 mcg IM MONTHLY Linzess 72 mcg capsule 72 mcg PO DAILY cholecalciferol (vitamin D3) 50 mcg (2,000 unit) tablet 2,000 unit PO DAILY sertraline 100 mg tablet 200 mg PO DAILY Qty: 60 2RF lorazepam [Ativan] 0.5 mg tablet 0.5 mg PO BID PRN (Reason: anxiety) Qty: 60 1RF omeprazole 40 mg capsule,delayed release(DR/EC) 40 mg PO DAILY Patient Comments: TAKE 1 CAPSULE BY MOUTH ONCE DAILY levothyroxine 200 mcg tablet 200 mcg PO DAILY Patient Comments: TAKE 1 TABLET BY MOUTH ONCE DAILY gabapentin 100 mg Capsule 100 mg PO BID daptomycin 350 mg recon soln 350 mg IV Q24H Rx Instructions: administer over 30 mins hydrocodone-acetaminophen 5-325 mg tablet 1 tab PO Q6H PRN (Reason: pain) 3 Days Qty: 12 0RF Referrals Follow up/Referrals: Provider,Referral, MD [Primary Care Provider] - See instructions Activity Restrictions/Add. Instructions Additional Instructions/Restrictions: The workup showed that she was likely constipated prior to arrival, is now developing gastroenteritis. This explains her abdominal pain. No evidence of stroke on workup. In the ED patient had multiple soft bowel movements. Rectal exam shows only soft stool in the rectum, no hard ball or obstruction. Laboratory studies were nonactionable. Patient did have a convulsive episode in ED of uncertain etiology. These appear consistent with patient's baseline per , though is unclear whether she has a diagnosis of seizures or is being treated for them. Given there is no new change from baseline, I do not think this need to be worked up in the hospital at this time. Recommend outpatient follow-up with neurology for further work up. Clinical Impressions Clinical Impression: Enteritis, Constipation, Convulsions Instructions Patient Instructions: DI for Altered Mental Status Discharge ED Provider: Matthieu Romero General Adult HPI General Chief complaint: Altered Mental Status Stated complaint: abd pain Time Seen by Provider: 09/14/23 17:48 History of Present Illness HPI narrative: 63-year-old female with extensive past medical history including cerebral palsy, convulsions , compression fractures of the vertebrae, presents with multiple complaints. Per discussion with nursing team at her facility, she was last known to be completely normal at approximately 8 AM this morning. Throughout the day patient has been less interactive than normal, has intermittent complained of abdominal pain, and may have a worse facial droop than normal. Extensive discussion had with regarding symptoms as well. He reports that she is currently at baseline mental status and her facial droop is not any different than normal. Patient has reportedly not had a bowel movement last 4 days. No reported fever at the facility. Patient had COVID back in August. On arrival patient is not altered. She is able to answer all of my questions. She reports no current chest pain or abdominal pain. Reports that her abdomen is hurting earlier but is not now. She wants to go back to her facility. Related Data Home Medications Medication Instructions Recorded Confirmed cyanocobalamin (vitamin B-12) 1,000 mcg IM MONTHLY Supplement 11/04/18 08/22/23 1,000 mcg/mL injection solution linaclotide 72 mcg capsule 72 mcg PO DAILY IBS 11/04/18 08/22/23 (Linzess) cholecalciferol (vitamin D3) 50 2,000 unit PO DAILY Supplement 10/11/19 08/22/23 mcg (2,000 unit) tablet levothyroxine 200 mcg tablet 200 mcg PO DAILY THYROID 02/14/23 08/22/23 omeprazole 40 mg capsule,delayed 40 mg PO DAILY Acid reflux 02/14/23 08/22/23 release gabapentin 100 mg capsule 100 mg PO BID neuropathy 02/15/23 08/22/23 daptomycin 350 mg intravenous 350 mg IV Q24H cellulitis 02/25/23 08/22/23 solution Previous Rx's Medication Instructions Recorded lorazepam 0.5 mg tablet (Ativan) 0.5 mg PO BID PRN anxiety #60 tabs 02/26/23 sertraline 100 mg tablet 200 mg PO DAILY mood #60 tabs 02/26/23 hydrocodone 5 mg-acetaminophen 325 1 tab PO Q6H PRN pain 3 days #12 03/10/23 mg tablet tabs Allergies Allergy/AdvReac Type Severity Reaction Status Date / Time metoclopramide [From REGLAN] Allergy Mild I-RASH Verified 08/22/23 11:11 Sulfa (Sulfonamide Allergy Mild I-RASH Verified 08/22/23 11:11 Antibiotics) [SULFA (SULFONAMIDE ANTIBIOTICS)] morphine Allergy Vomiting Verified 08/22/23 11:11 [facility] Disclaimer: The information contained in this section may have been updated after the patient was seen, as this information can be updated by other users. Medical History Depression Generalized anxiety disorder GERD (gastroesophageal reflux disease) History of hypertension Hyperlipidemia Neurogenic bladder monitor output, in and out catheter as needed New onset seizure Osteoporosis Physical debility Surgical History H/O kyphoplasty H/O thyroidectomy H/O tubal ligation Hx of appendectomy Family History Other No significant family history Social History Smoking Status: Never smoker second hand exposure: No alcohol intake: never counseling provided: none substance use type: denies use current occupational status: disabled Travel in the last 8 weeks: None household members: spouse housing: house lives independently: No marital status: number of children: 2 current occupational exposures/hazards: No caffeine: Yes ROS Obtained: Yes All systems reviewed & no additional complaints except as documented Physical Exam General General appearance: alert and in no apparent distress Head Head exam: atraumatic and normocephalic Eye Eye exam: Present normal appearance, PERRL and EOMI ENT ENT exam: Present normal oropharynx and normal external ear exam Neck Neck exam: Present normal inspection and full ROM Chest Chest inspection: Present normal inspection and symmetric chest wall rise; Absent tenderness Respiratory Respiratory exam: Present normal lung sounds bilaterally; Absent respiratory distress Cardiovascular Cardiovascular exam: Present regular rate and normal rhythm Abdominal Exam Abdominal exam: Present soft and distention (Mild); Absent tenderness or guarding Extremities Exam Extremities exam: Present other (Contractured, muscle wasting noted); Absent edema or joint swelling Back Exam Back exam: Present normal inspection; Absent tenderness Neurological Exam Neurological exam: Present alert, oriented X3 and other (Right facial droop noted, unchanged from baseline per . No unilateral extremity weakness. No new cerebellar pathology noted) Psychiatric Psychiatric exam: Present normal affect and normal mood Skin Skin exam: Present warm, dry and normal color Lymphatic Lymphatic Findings: no adenopathy Medical Decision Making Medical Records Medical records reviewed: Yes I reviewed the patient's medical records. Claus Inquiry Pt receiving controlled substance: No Claus was queried for this patient: No Vital Signs: 09/14/23 18:01 09/14/23 18:08 09/14/23 17:42 Temperature 98.8 F Temperature Source Oral Pulse Rate 97 H 98 H Pulse Rate [Left Radial] 97 H Respiratory Rate 19 Blood Pressure 147/93 H 142/82 H Blood Pressure [Right Arm] 157/94 H Blood Pressure Mean 118 Blood Pressure Mean [Right Arm] 115 02 Sat by Pulse Oximetry 96 95 97 Oxygen Delivery Method Room Air 09/14/23 18:32 09/14/23 21:48 09/14/23 19:45 Temperature 98.8 F Temperature Source Oral Pulse Rate 79 97 H 110 H Pulse Rate [Left Radial] Respiratory Rate 18 Blood Pressure 151/108 H 142/82 H 100/83 L Blood Pressure [Right Arm] Blood Pressure Mean Blood Pressure Mean [Right Arm] 02 Sat by Pulse Oximetry 96 97 Oxygen Delivery Method 09/14/23 20:00 09/14/23 20:37 09/14/23 21:00 Temperature Temperature Source Pulse Rate 96 H 100 H 88 Pulse Rate [Left Radial] Respiratory Rate Blood Pressure 134/78 159/94 H 148/92 H Blood Pressure [Right Arm] Blood Pressure Mean Blood Pressure Mean [Right Arm] 02 Sat by Pulse Oximetry 97 96 96 Oxygen Delivery Method 09/14/23 21:31 Temperature Temperature Source Pulse Rate Pulse Rate [Left Radial] Respiratory Rate Blood Pressure 125/94 H Blood Pressure [Right Arm] Blood Pressure Mean 102 Blood Pressure Mean [Right Arm] 02 Sat by Pulse Oximetry Oxygen Delivery Method Lab Data Lab results reviewed: Yes I reviewed the patient's lab results. Lab Results 09/14/23 18:07: WBC 7.9, RBC 4.58, Hgb 12.7, Hct 37.4, MCV 81.5, MCH 27.8, MCHC 34.1, RDW 16.9, Plt Count 162, MPV 9.2, Neut % (Auto) 79.4, Lymph % (Auto) 14.8, Calvert % (Auto) 3.5, Eos % (Auto) 1.8, Baso % (Auto) 0.5, Neut # (Auto) 6.3, Lymph # (Auto) 1.2, Calvert # (Auto) 0.3, Eos # (Auto) 0.1, Baso # (Auto) 0.0, PT 10.6, INR 0.98, Sodium 141, Potassium 4.2, Chloride 105, Carbon Dioxide 27, Anion Gap 13.2, BUN 19 H, Creatinine 0.40 L, Estimated Creat Clear 49, Estimated GFR 160, Est GFR ( Amer) 194, Glucose 139 H, Lactate 2.0, Calcium 9.0, Magnesium 1.9, Total Bilirubin 0.5, AST 35, ALT 23, Alkaline Phosphatase 83, Troponin I < 0.01, Total Protein 7.1, Albumin 4.0, Globulin 3.1, Albumin/Globulin Ratio 1.3 09/14/23 18:13: SARS-CoV-2 (PCR) Not detected, Influenza A Untype (PCR) Not detected, Influenza Type B (PCR) Not detected 09/14/23 18:23: VBG pH 7.29 L, VBG pCO2 44.7, VBG pO2 80.0 H, VBG HCO3 21.1 L, VBG Total CO2 22.5 L, VBG O2 Saturation 94.8 H, VBG Base Excess -5.4 L 09/14/23 18:30: Urine Color Yellow, Urine Appearance Clear, Urine pH 7.0, Ur Specific Leon 1.020, Urine Protein Negative, Urine Glucose (UA) Negative, Urine Ketones Negative, Urine Blood Negative, Urine Nitrate Positive, Urine Bilirubin Negative, Urine Urobilinogen 0.2, Ur Leukocyte Esterase 2+ A, Urine RBC None, Urine WBC 5-10, Ur Squamous Epith Cells 3-5, Amorphous Sediment Trace, Urine Bacteria 1+ 09/14/23 18:07 09/14/23 18:07 Orders (Tests/Meds): ED MEDICATIONS Discontinued Medications Generic Name Dose Route Start Last Admin Trade Name Freq PRN Reason Stop Dose Admin Iopamidol 180 ml 09/14/23 19:10 09/14/23 19:15 Iopamidol-370 (76%);100ml Bottle IV 09/14/23 19:11 180 ml ONCE ONE Administration Sodium Chloride 40 ml 09/14/23 19:10 09/14/23 19:15 0.9 % Sodium Chloride 50 Ml Vial IV 09/14/23 19:11 40 ml ONCE ONE Administration ORDERS Category Date Time Status CT abdomen pelvis w con Stat Cat Scan 09/14/23 18:[address] angio chest PE protocol Stat Cat Scan 09/14/23 18:[address] angio head Stat Cat Scan 09/14/23 18:[address] angio neck Stat Cat Scan 09/14/23 18:[address] head/brain wo con Stat Cat Scan 09/14/23 18:07 Completed CBC w/Auto Diff [Complete Blood Count Auto Diff] Stat Lab 09/14/23 18:07 Completed CMP [Comprehensive Metabolic Panel] Stat Lab 09/14/23 18:07 Completed INR [Prothrombin Time INR] Stat Lab 09/14/23 18:07 Completed Lactic Acid Stat Lab 09/14/23 18:07 Completed Magnesium Stat Lab 09/14/23 18:07 Completed Rapid PCR Covid and Flu A/B Stat Lab 09/14/23 18:13 Completed Troponin I Q3H Lab 09/14/23 18:07 Completed UA [Urinalysis and Microscopic] Stat Lab 09/14/23 18:30 Completed Blood Culture Stat Micro 09/14/23 18:10 Received Urine Culture Stat Micro 09/14/23 18:30 Received VBG [Venous Blood Gas] Stat RT 09/14/23 18:23 Completed Medical Decision Narrative: 63-year-old female, resident at a nursing facility, history of cerebral palsy, spinal compression fractures, prior seizures, presents with multiple complaints per nursing facility including abdominal pain, altered mental status, possible facial droop. History was obtained via conversation with patient, nursing fac ility, , chart review, EMS. On arrival, patient is [afebrile, hemodynamically stable, satting appropriately, alert, oriented,, GCS 15], moving all extremities spontaneously. Full physical exam performed and significant for facial droop noted on the right, this is normal in appearance per . Patient has no acute complaints at this time. Has mild abdominal distention but no tenderness. No indication for stroke alert as patient has no large vessel occlusion based on exam, last known normal greater than 4 and half hours per nursing report. Differential includes but is not limited to intracranial pathology, stroke, seizure, pneumonia, intra-abdominal pathology, electrolyte derangement. Workup initiated including CT head, CT angio head neck, CT PE, CT abdomen pelvis with IV contrast, broad-spectrum laboratory analysis.. On re-evaluation, patient had a brief 10-second period of convulsions observed by the nursing staff while they were turning her to change her. They report upper extremity rigidity and tonic-clonic movements. Reports that her eyes were rolled back . For brief period after patient was more confused than normal. Laboratory workup independently interpreted by me and significant for no leukocytosis, mild metabolic acidosis, renal function at baseline, urine was pulled from her chronic indwelling Gastelum and appears stable from prior. Troponin negative, lactate normal. Imaging independently interpreted by me and significant for suspected acute e nteritis with scattered air-fluid levels without focal bowel obstruction. Large rectal stool ball is noted as well. See radiology read for full review of final results. EKG independently interpreted by me and significant for sinus rhythm, regular rate, no concerning ST changes.. Given history and exam, patient's abdominal pain earlier today was likely a result of her recent constipation and developing enteritis. Her CT scan shows rectal stool ball. On digital rectal exam, she has large volume soft stool in rectum. Before and after her rectal exam, patient was having moderate volume soft stool output. I considered doing a digital disimpaction or enemas, but this seemed unnecessary as she is continuing to produce stool. No evidence of bowel obstruction or perforation on CT. Regarding patient's possible seizure, she has been noted to have this in the past and has been diagnosed with unspecified convulsions at her nursing facility. She has been seen here for seizures in the past. Per , the episode is normal for her at this point. He reports she is not on any medications for seizures as far she is aware. Given this is unchanged for her and she had a negative CT head and otherwise negative workup in the ED, I do not think she needs admission or transfer for further assessment. I encouraged them to follow-up with a neurologist for further assessment. Despite concern for facial droop from nursing facility, no evidence of stroke on my exam or workup. Unclear why patient was altered earlier today, but she has been well-appearing and at baseline per in ED. Given she is afebrile and well-appearing, I elected not to treat her urine sample from the indwelling Gastelum. Patient discharged in stable condition back to nursing facility. Procedures Risk/Benefits of Procedure(s) Were Explained: Yes Critical Care Critical Care Time Critical Care Time: No
--- NOTE | 2023-09-14 18:00 | PC.NURSE ---
pt had a bm cleaned up and placed a new brief with asst by Bhavani
--- NOTE | 2023-09-14 18:07 | CT_ITS ---
PROCEDURE INFORMATION: Exam: CT Head Without Contrast Exam date and time: 09/14/2023 6:55 PM Age: 63 years old Clinical indication: Other: AMS TECHNIQUE: Imaging protocol: Computed tomography of the head without contrast. Total images: 267 Radiation optimization: All CT scans at this facility use at least one of these dose optimization techniques: automated exposure control; mA and/or kV adjustment per patient size (includes targeted exams where dose is matched to clinical indication); or iterative reconstruction. COMPARISON: CT HEAD/BRAIN WO CON 06/13/2023 11:02 PM FINDINGS: Brain: No gross evidence for acute intracranial hemorrhage, territorial infarct, or midline shift. Mild cortical atrophy. Mild periventricular and scattered subcortical white matter hypodensity compatible with remote small vessel ischemia. Remote lacunar infarct left lentiform nucleus. Remote deep white matter ischemic changes left rita. Basilar cisterns are maintained. Benign dural calcifications along the falx. Cerebral ventricles: Stable mild ventriculomegaly. Cavum septum pellucidum is a normal variant. Paranasal sinuses: Visualized sinuses are unremarkable. No fluid levels. Mastoid air cells: Visualized mastoid air cells are well aerated. Bones/joints: Osteopenia. Soft tissues: Unremarkable. Vasculature: Moderate calcifications bilateral intracranial internal carotid arteries. Other findings: Compromised evaluation secondary to patient motion and subsequent image blurring. IMPRESSION: 1. Limited exam secondary to patient motion and subsequent image blurring. 2. No gross evidence for acute intracranial process. 3. Stable chronic findings. 4. No significant change from June 13, 2023.
--- NOTE | 2023-09-14 18:07 | CT_ITS ---
PROCEDURE INFORMATION: Exam: CTA Head With Contrast, Arteriography Exam date and time: 09/14/2023 6:59 PM Age: 63 years old Clinical indication: Other: AMS; Additional info: Facial droop, AMS TECHNIQUE: Imaging protocol: Computed tomographic angiography of the head with contrast. Exam focused on the arteries. 3D rendering (Not supervised by radiologist): MIP and/or 3D reconstructed images were created by the technologist. Radiation optimization: All CT scans at this facility use at least one of these dose optimization techniques: automated exposure control; mA and/or kV adjustment per patient size (includes targeted exams where dose is matched to clinical indication); or iterative reconstruction. Contrast material: ISOVUE; Contrast volume: 100 ml; Contrast route: INTRAVENOUS (IV); COMPARISON: CT HEAD/BRAIN WO CON 09/14/2023 6:55 PM FINDINGS: ANTERIOR CIRCULATION: Right internal carotid artery: Intracranial segment is patent with no significant stenosis. No aneurysm. Right middle cerebral artery: No occlusion or significant stenosis. No aneurysm. Right anterior cerebral artery: No occlusion or significant stenosis. No aneurysm. Left internal carotid artery: Intracranial segment is patent with no significant stenosis. No aneurysm. Left middle cerebral artery: No occlusion or significant stenosis. No aneurysm. Left anterior cerebral artery: No occlusion or significant stenosis. No aneurysm. POSTERIOR CIRCULATION: Right vertebral artery: No occlusion or significant stenosis. No aneurysm. Left vertebral artery: No occlusion or significant stenosis. No aneurysm. Basilar artery: No occlusion or significant stenosis. No aneurysm. Right posterior cerebral artery: No occlusion or significant stenosis. No aneurysm. Left posterior cerebral artery: No occlusion or significant stenosis. No aneurysm. Brain: No definite mass, mass effect, or midline shift. Cerebral ventricles: No ventriculomegaly. Bones/joints: Unremarkable. No acute fracture. Soft tissues: Unremarkable. IMPRESSION: No large vessel stenosis or occlusion.
--- NOTE | 2023-09-14 18:07 | CT_ITS ---
PROCEDURE INFORMATION: Exam: CT Abdomen And Pelvis With Contrast Exam date and time: 09/14/2023 7:05 PM Age: 63 years old Clinical indication: Other: AMS; Additional info: AMS, abd pain TECHNIQUE: Imaging protocol: Computed tomography of the abdomen and pelvis with contrast. Total images: 1159 Radiation optimization: All CT scans at this facility use at least one of these dose optimization techniques: automated exposure control; mA and/or kV adjustment per patient size (includes targeted exams where dose is matched to clinical indication); or iterative reconstruction. Contrast material: ISOVUE; Contrast volume: 80 ml; Contrast route: IV; COMPARISON: CT BONY PELVIS 03/15/2023 9:04 AM FINDINGS: Diaphragm: Small hiatal hernia. Liver: Mild hepatomegaly at 19 cm. Normal liver contour and attenuation. No mass. Gallbladder and bile ducts: Normal. No calcified stones. No ductal dilation. Pancreas: Normal. No ductal dilation. Spleen: Mild splenomegaly at 15.4 cm. Calcified splenic granuloma. No mass. Adrenal glands: Adrenal thickening/hyperplasia. Kidneys and ureters: Contrast excretion from both kidneys would obscure nephrolithiasis if present. Mild left pelvicaliectasis of undetermined etiology. No ureteral dilatation. Stomach and bowel: Collapsed stomach. No ileus or bowel obstruction. Shallow scattered air-fluid levels throughout small bowel may reflect a nonspecific enteritis. Unremarkable colon. Large rectal stool burden including rectal wall thickening and perirectal edema. Appendix: The appendix is not discretely visualized. No evidence for appendicitis. Intraperitoneal space: Unremarkable. No free air. No significant fluid collection. Vasculature: Mildly atherosclerotic abdominal aorta without aneurysm. Major abdominal vessels enhance appropriately. Lymph nodes: Unremarkable. No enlarged lymph nodes. Urinary bladder: Bladder collapsed via Gastelum catheter. Excreted contrast filling the bladder lumen. Question mild bladder wall thickening versus incomplete distention. Tiny bladder diverticulum. Reproductive: Atrophic uterus and ovaries. Bones/joints: Osteopenia. Mild lumbar levocurvature. Remote compression deformity L2 vertebral body. Moderate degenerative changes lumbar spine. No concerning bone lesions. Soft tissues: Unremarkable. Other findings: Attenuation artifact from arm positioning compromises detail. IMPRESSION: 1. Nonspecific mild hepatosplenomegaly. 2. Suspect acute enteritis with scattered air-fluid levels. No complicating features. 3. Large rectal stool burden with wall thickening and perirectal edema implying acute stercoral colitis. 4. Chronic L2 vertebral body compression deformity. 5. Mild bladder wall thickening versus incomplete distention. 6. Additional chronic and incidental findings.
--- NOTE | 2023-09-14 18:07 | CT_ITS ---
PROCEDURE INFORMATION: Exam: CTA Neck With Contrast Exam date and time: 09/14/2023 6:59 PM Age: 63 years old Clinical indication: Other: AMS; Additional info: Facial droop, AMS TECHNIQUE: Imaging protocol: Computed tomographic angiography of the neck with contrast. Exam focused on the cervical segments of the vasculature. 3D rendering (Not supervised by radiologist): MIP and/or 3D reconstructed images were created by the technologist. Radiation optimization: All CT scans at this facility use at least one of these dose optimization techniques: automated exposure control; mA and/or kV adjustment per patient size (includes targeted exams where dose is matched to clinical indication); or iterative reconstruction. Contrast material: ISOVUE; Contrast volume: 100 ml; Contrast route: INTRAVENOUS (IV); COMPARISON: CT CERVICAL SPINE WO CON 03/15/2023 8:54 AM FINDINGS: Right common carotid artery: No stenosis. No dissection or occlusion. Right internal carotid artery: No stenosis of the extracranial segment. No dissection or occlusion. Right external carotid artery: No occlusion or stenosis of the origin. Left common carotid artery: No stenosis. No dissection or occlusion. Left internal carotid artery: No stenosis of the extracranial segment. No dissection or occlusion. Left external carotid artery: No occlusion or stenosis of the origin. Right vertebral artery: No stenosis. No dissection or occlusion. Left vertebral artery: No stenosis. No dissection or occlusion. Soft tissues: Normal. No significant soft tissue swelling. Bones/joints: Prominent anterior osteophyte/syndesmophyte formation throughout the cervical spine. Significant multilevel degenerative disc changes. Severe chronic compression of the T3 vertebral body. No definite acute fracture. IMPRESSION: 1. No carotid stenosis. Patent bilateral vertebral arteries. 2. Severe degenerative changes throughout the cervical spine. Severe chronic compression of T3. REFERENCES: NASCET CRITERIA. The degree of stenosis in the cervical segment of the internal carotid artery is based on NASCET criteria. Normal is no stenosis. Mild is less than 50% stenosis. Moderate is 50-69% stenosis. Severe is 70% to 99% stenosis. Total occlusion is no detectable patent lumen.
--- NOTE | 2023-09-14 18:08 | CT_ITS ---
PROCEDURE INFORMATION: Exam: CTA Chest With Contrast Exam date and time: 09/14/2023 7:05 PM Age: 63 years old Clinical indication: Other: AMS; Additional info: AMS, cp TECHNIQUE: Imaging protocol: Computed tomographic angiography of the chest with contrast. Exam focused on the arteries. 3D rendering (Not supervised by radiologist): MIP and/or 3D reconstructed images were created by the technologist. Total images: 848 Radiation optimization: All CT scans at this facility use at least one of these dose optimization techniques: automated exposure control; mA and/or kV adjustment per patient size (includes targeted exams where dose is matched to clinical indication); or iterative reconstruction. Contrast material: ISOVUE; Contrast volume: 80 ml; Contrast route: INTRAVENOUS (IV); COMPARISON: CT CHEST WO CON 03/10/2023 7:09 PM FINDINGS: Pulmonary arteries: Adequate contrast opacification of the pulmonary arteries. No acute pulmonary emboli. Aorta: Mildly atherosclerotic thoracic aorta without aneurysm or dissection. Thyroid: Status post left thyroidectomy. Lungs: Trachea and main bronchi are patent. Calcified lingular granuloma. No acute infiltrate, airspace consolidation or pulmonary mass. Minor dependent bibasilar atelectasis. No concerning lung nodules. Pleural spaces: Unremarkable. No pneumothorax. No pleural effusion. Heart: Normal heart size. No pericardial effusion. Coronary arteries: Mild coronary artery calcifications. Mediastinal space: No mediastinal mass or fluid collection. Lymph nodes: No mediastinal or hilar lymphadenopathy. Bones/joints: Osteopenia. Remote posterior left rib fractures. Remote compression fracture with vertebroplasty changes at T11 and T12. Stable burst fracture T3 vertebral body. Moderate degenerative changes thoracic spine. Minor S-shaped thoracic scoliosis. Stable mild compression fracture T4. Soft tissues: Unremarkable. IMPRESSION: 1. No acute intrathoracic process. 2. No acute pulmonary emboli. 3. No aortic aneurysm or dissection. 4. Clear lungs. 5. Stable T3 vertebral body burst fracture. 6. Stable T4 mild compression fracture 7. Stable T11 and T12 compression fractures with vertebroplasty changes.
--- NOTE | 2023-09-14 18:17 | PC.NURSE ---
seizure pads placed on pts side rails
[2023-09-14 18:22] LABS: Coronavirus 19, PCR Not Detected (NotDetected); Influenza A, PCR Not Detected (NotDetected); Influenza B, PCR Not Detected (NotDetected)
[2023-09-14 18:25] LABS: Basophils % 0.5 % (0.1-2.0); Eosinophils # 0.1 K/mm3 (0.0-0.4); Eosinophils % 1.8 % (0.1-12.0); Hematocrit 37.4 % (37.0-47.0); Hemoglobin 12.7 g/dL (12.2-16.2); Lymphocytes # 1.2 K/mm3 (0.7-4.5); Lymphocytes % 14.8 % (10-50); Mean Corpuscular HGB Conc 34.1 g/dL (31.8-35.4); Mean Corpuscular Hemoglobin 27.8 pg (27.0-31.2); Mean Corpuscular Volume 81.5 fl (81-99); Mean Platelet Volume 9.2 fl (7.4-10.4); Monocytes # 0.3 K/mm3 (0.1-1.0); Monocytes % 3.5 % (1.7-9.3); Neutrophils # 6.3 K/mm3 (1.8-7.8); Neutrophils % 79.4 % (37.0-80.0); Platelet Count 162 K/mm3 (142-424); Red Blood Count 4.58 M/mm3 (4.20-5.40); Red Cell Distribution Width 16.9 % (11.5-17.5); White Blood Count 7.9 K/mm3 (4.8-10.8)
[2023-09-14 18:27] LABS: Chloride 105 mmol/L (98-107); Potassium 4.2 mmoL/L (3.5-5.1); Sodium 141 mmol/L (136-145)
[2023-09-14 18:29] LABS: Alanine Aminotransferase 23 U/L (12-78); Aspartate Amino Transferase 35 U/L (14-36); Blood Urea Nitrogen 19 mg/dl (7-17); Creatinine Clearance Estimated 49 mL/min (50-200); Estimated Glomerular Filt Rate 160 ml/min (>60); GFR (African American) 194 ML/MIN (>60)
[2023-09-14 18:30] LABS: Albumin/Globulin Ratio 1.3 (1.1-1.8); Alkaline Phosphatase 83 U/L (38-126); Bilirubin,Total 0.5 mg/dl (0.2-1.3); Globulin 3.1 g/dL (1.3-3.2); Glucose 139 mg/dl (74-100); INR 0.98 (0.9-1.1); Magnesium 1.9 mg/dl (1.6-2.3); Prothrombin Time 10.6 seconds (10.1-12.5); Total Protein,Serum 7.1 g/dl (6.3-8.2)
[2023-09-14 18:34] LABS: Microscopic, Urine URINE MICROSCOPIC (MICROSCOPIC)
[2023-09-14 18:38] LABS: Appearance,Urine CLEAR (Clear); Bilirubin,Urine Negative (Negative); Blood, Urine Negative (Negative); Color,Urine YELLOW (Yellow); Glucose,Urine (UA) Negative (Negative); Ketones,Urine Negative (Negative); Leukocyte Esterase,Urine 2+ (Negative); Nitrate,Urine POSITIVE (Negative); Protein,Urine Negative (Negative); Urobilinogen,Urine 0.2 EU/dl (0.2)
[2023-09-14 18:39] LABS: VBG Base Excess -5.4 mmol/L (-2.4-2.3); VBG HCO3 21.1 mmol/L (23-30); VBG Oxygen Saturation 94.8 % (50-70); VBG PCO2 44.7 mmol/L (35-51); VBG PH 7.29 mmol/L (7.31-7.41); VBG Total CO2 22.5 mmol/L (23-27)
[2023-09-14 18:42] LABS: Troponin I < 0.01 ng/ml (0.00-0.034)
[2023-09-14 18:48] LABS: Anion Gap 13.2 mEq/L (5-15); Carbon Dioxide 27 mmol/L (22.0-30.0)
[2023-09-14 18:48] LABS: Amorphous Sediment,Urine Trace /lpf; Bacteria,Urine 1+ /lpf
--- NOTE | 2023-09-14 18:49 | PC.NURSE ---
pt had small bowel movement
[2023-09-14] MEDS: IOPAMIDOL-370 (76%);100ML BOTTLE 180 ML IV (19:15)
[2023-09-14] MEDS: 0.9 % SODIUM CHLORIDE 50 ML VIAL 40 ML IV (19:15)
--- NOTE | 2023-09-14 19:43 | PC.NURSE ---
in room talking with patient.
--- NOTE | 2023-09-14 21:46 | PC.NURSE ---
notified [facility] that pt is ready for transport to [facility]
--- NOTE | 2023-09-14 21:49 | PC.NURSE ---
called and gave report to Rajni @ [facility]
--- NOTE | 2023-09-19 09:41 | PC.NURSE ---
urine culture shows greater than 2 organisms recovered, none predominant. Called [facility], pt is doing good, pt has indwelling jacobs and no further action due to chronic colonized per
== END 2023-09-14 22:15 | disposition home or self-care (01) ==
PROVIDERS: Emergency Provider Emergency Medicine
DX: R56.9 Unspecified convulsions (principal); K52.9 Noninfective gastroenteritis and colitis, unspecified; K59.00 Constipation, unspecified; G80.9 Cerebral palsy, unspecified
CPT/HCPCS: 70450; 70496; 70498; 71275; 74177; 80053; 81001; 82803; 83605; 83735; 84484; 85025; 85610; 87040; 87086; 87636; 99285; Q9967

== ENCOUNTER 2023-12-21 15:15 | Emergency (ER) | payer MEDICARE, MEDICAID, SELFPAY ==
[2023-12-21] VITALS (12 sets, daily range): BP systolic 132–156; BP diastolic 78–101; PULSE 80–138; RESP 16–20; TEMP 36.7–36.8; O2SAT 96–98; BMI 19.5
--- NOTE | 2023-12-21 15:18 | PC.NURSE ---
SEIZURE PADS PLACED AT THIS TIME
--- NOTE | 2023-12-21 15:19 | ED_ITS ---
<Statement entered by Chang Burroughs MD - 12/21/23 19:04> I was consulted by the KEAGAN, and we discussed the complexity of the problems being addressed. I approved the treatment and management plan for this patient's care in the emergency department, thus performing a substantive portion of the medical decision making. Chang Burroughs MD Patient has complicated past medical history, workup including hematologic labs, troponin, viral swab, CTAs are nonactionable. Patient does have evidence of urinary tract infection although she is likely chronically colonized at baseline has worse white blood cells in her urine. Gastelum was exchanged, patient will be initiated on Levaquin for Pseudomonas coverage given indwelling Gastelum. Patient did have a period of sinus tachycardia that partially resolved to her baseline which is usually tachycardia. I have no concern for sepsis given the patient is well-appearing and has no leukocytosis. Normal lactate makes true seizure very unlikely therefore AEDs and outpatient prescription will not be prescribed. Long discussion was had at bedside, patient is frustrated with her care and long-term care facility and wishes to be admitted or discharged home neither which are reasonable or indicated at this point. Patient is appropriate for discharge to long-term care with Levaquin and was given return precautions. Discharge Plan Disposition Patient Disposition: Xfer SNF Condition: Good Prescriptions Prescriptions: New levofloxacin 750 mg tablet 750 mg PO DAILY 10 Days Qty: 10 0RF No Action cyanocobalamin (vitamin B-12) 1,000 mcg/mL solution 1,000 mcg IM MONTHLY Linzess 72 mcg capsule 72 mcg PO DAILY cholecalciferol (vitamin D3) 50 mcg (2,000 unit) tablet 2,000 unit PO DAILY sertraline 100 mg tablet 200 mg PO DAILY Qty: 60 2RF lorazepam [Ativan] 0.5 mg tablet 0.5 mg PO BID PRN (Reason: anxiety) Qty: 60 1RF omeprazole 40 mg capsule,delayed release(DR/EC) 40 mg PO DAILY Patient Comments: TAKE 1 CAPSULE BY MOUTH ONCE DAILY levothyroxine 200 mcg tablet 200 mcg PO DAILY Patient Comments: TAKE 1 TABLET BY MOUTH ONCE DAILY gabapentin 100 mg Capsule 100 mg PO BID daptomycin 350 mg recon soln 350 mg IV Q24H Rx Instructions: administer over 30 mins hydrocodone-acetaminophen 5-325 mg tablet 1 tab PO Q6H PRN (Reason: pain) 3 Days Qty: 12 0RF Referrals Follow up/Referrals: Provider,Referral, [Primary Care Provider] - See instructions Clinical Impressions Clinical Impression: Urinary tract infectious disease, Convulsions Instructions Patient Instructions: DI for Seizure Disorder -- Adult, DI for Seizure (Not Epilepsy/Seizure Disorder), DI for Seizure Disorder -- Child Discharge ED Provider: Chang Burroughs General Adult HPI <TERENCE Torres - Last Filed: 12/21/23 18:59> General Chief complaint: Seizure Stated complaint: seizures Time Seen by Provider: 12/21/23 15:16 History of Present Illness HPI narrative: Patient presents from [facility] for a reported seizure. Patient has a past medical history of cerebral palsy, left-sided paraplegia, following neuropathy, neurogenic bladder, and history of a spinal fracture believed to be C2-C3 although I have yet to confirm that. Patient apparently was evaluated at the [facility] for that fracture approximately 9 months ago what exactly was done is still unclear however post admission, patient reportedly had unspecified convulsions at her home marked by drooling, bilateral of lower extremity spasms and tetany but no grand mall seizures as described by her . Reportedly today patient was noted to be shaking by nursing staff once at approximately 10 and once again in the afternoon which prompted EMS being notified. I do not and have not been able to speak with anyone at the halfway directly. Patient herself describes no memory loss are a and was not postictal and is not postictal now. She denies chest pain fever chills hemoptysis hematochezia melena nausea vomiting diarrhea. Related Data Home Medications Medication Instructions Recorded Confirmed cyanocobalamin (vitamin B-12) 1,000 mcg IM MONTHLY Supplement 11/04/18 08/22/23 1,000 mcg/mL injection solution linaclotide 72 mcg capsule 72 mcg PO DAILY IBS 11/04/18 08/22/23 (Linzess) cholecalciferol (vitamin D3) 50 2,000 unit PO DAILY Supplement 10/11/19 08/22/23 mcg (2,000 unit) tablet levothyroxine 200 mcg tablet 200 mcg PO DAILY THYROID 02/14/23 08/22/23 omeprazole 40 mg capsule,delayed 40 mg PO DAILY Acid reflux 02/14/23 08/22/23 release gabapentin 100 mg capsule 100 mg PO BID neuropathy 02/15/23 08/22/23 daptomycin 350 mg intravenous 350 mg IV Q24H cellulitis 02/25/23 08/22/23 solution Previous Rx's Medication Instructions Recorded lorazepam 0.5 mg tablet (Ativan) 0.5 mg PO BID PRN anxiety #60 tabs 02/26/23 sertraline 100 mg tablet 200 mg (2 x 100 mg) PO DAILY mood 02/26/23 #60 tabs hydrocodone 5 mg-acetaminophen 325 1 tab PO Q6H PRN pain 3 days #12 03/10/23 mg tablet tabs levofloxacin 750 mg tablet 750 mg PO DAILY 10 days #10 tabs 12/21/23 Allergies Allergy/AdvReac Type Severity Reaction Status Date / Time metoclopramide [From REGLAN] Allergy Mild I-RASH Verified 08/22/23 11:11 Sulfa (Sulfonamide Allergy Mild I-RASH Verified 08/22/23 11:11 Antibiotics) [SULFA (SULFONAMIDE ANTIBIOTICS)] morphine Allergy Vomiting Verified 08/22/23 11:11 PFSH <TERENCE Torres - Last Filed: 12/21/23 18:59> PFS Disclaimer: The information contained in this section may have been updated after the patient was seen, as this information can be updated by other users. Medical History Depression Generalized anxiety disorder GERD (gastroesophageal reflux disease) History of hypertension Hyperlipidemia Neurogenic bladder monitor output, in and out catheter as needed New onset seizure Osteoporosis Physical debility Surgical History H/O kyphoplasty H/O thyroidectomy H/O tubal ligation Hx of appendectomy Family History Other No significant family history Social History Smoking Status: Never smoker second hand exposure: No alcohol intake: never counseling provided: none substance use type: denies use current occupational status: disabled Travel in the last 8 weeks: None household members: spouse housing: house lives independently: No marital status: number of children: 2 current occupational exposures/hazards: No caffeine: Yes <TERENCE Torres - Last Filed: 12/21/23 18:59> ROS Obtained: Yes Systems reviewed as appropriate & no additional complaints except as documented Physical Exam <TERENCE Torres - Last Filed: 12/21/23 18:59> General General appearance: alert and in no apparent distress Head Head exam: atraumatic, normocephalic and normal inspection Eye Eye exam: Present normal appearance and PERRL ENT ENT exam: Present normal exam, normal oropharynx, mucous membranes moist and other (Patient has a slightly garbled voice due to left-sided hemiparesis) Neck Neck exam: Present normal inspection and full ROM; Absent tenderness, meningismus or lymphadenopathy Chest Chest inspection: Present normal inspection and symmetric chest wall rise Respiratory Respiratory exam: Present normal lung sounds bilaterally; Absent respiratory distress Cardiovascular Cardiovascular exam: Present regular rate, normal rhythm, normal heart sounds, +S1 and +S2 Abdominal Exam Abdominal exam: Present soft and normal bowel sounds; Absent tenderness Back Exam Back exam: Present normal inspection; Absent tenderness Neurological Exam Neurological exam: Present alert and oriented X3 Psychiatric Psychiatric exam: Present normal affect and normal mood Skin Skin exam: Present warm, dry and normal color Other Other exam information: Patient appears to have left-sided hemiparesis involving the left mouth left upper extremity left lower extremity that appears to be longstanding and chronic considering that she also has muscle wasting as well of those extremities. No focal neurologic deficits that appear to be new and patient is awake alert and oriented to person place and circumstance and Anderson Coma Score is 15. Medical Decision Making <TERENCE Torres - Last Filed: 12/21/23 18:59> Medical Records Medical records reviewed: Yes I reviewed the patient's medical records. Claus Inquiry Pt receiving controlled substance: No Vital Signs: 12/21/23 15:15 12/21/23 15:30 12/21/23 16:15 Temperature 98.1 F Temperature Source Oral Pulse Rate 91 H 89 Pulse Rate [Left Radial] 89 Respiratory Rate 16 Blood Pressure 136/81 133/82 Blood Pressure [Right Arm] 146/86 H Blood Pressure Mean [Right Arm] 106 Blood Pressure Source [Right Arm] Automatic Cuff Blood Pressure Position [Right Arm] Sitting 02 Sat by Pulse Oximetry 96 96 97 Oxygen Delivery Method Room Air Room Air 12/21/23 16:31 12/21/23 17:30 12/21/23 18:00 Temperature Temperature Source Pulse Rate 100 H 138 H 133 H Pulse Rate [Left Radial] Respiratory Rate Blood Pressure 156/101 H 147/87 H 147/93 H Blood Pressure [Right Arm] Blood Pressure Mean [Right Arm] Blood Pressure Source [Right Arm] Blood Pressure Position [Right Arm] 02 Sat by Pulse Oximetry 97 98 97 Oxygen Delivery Method 12/21/23 18:14 12/21/23 18:15 12/21/23 18:30 Temperature Temperature Source Pulse Rate 114 H 113 H 112 H Pulse Rate [Left Radial] Respiratory Rate Blood Pressure 143/92 H Blood Pressure [Right Arm] Blood Pressure Mean [Right Arm] Blood Pressure Source [Right Arm] Blood Pressure Position [Right Arm] 02 Sat by Pulse Oximetry 97 96 Oxygen Delivery Method Lab Data Lab results reviewed: Yes I reviewed the patient's lab results. Lab Results 12/21/23 15:39: SARS-CoV-2 (PCR) Not detected, Influenza A Untype (PCR) Not detected, Influenza Type B (PCR) Not detected 12/21/23 15:55: WBC 6.1, RBC 4.92, Hgb 13.0, Hct 41.8, MCV 84.8, MCH 26.3 L, M CHC 31.1 L, RDW 16.0, Plt Count 174, MPV 8.0, Neut % (Auto) 81.2 H, Lymph % (Auto) 12.3, Harrison % (Auto) 3.9, Eos % (Auto) 1.6, Baso % (Auto) 1.0, Neut # (Auto) 5.0, Lymph # (Auto) 0.8, Harrison # (Auto) 0.2, Eos # (Auto) 0.1, Baso # (Auto) 0.1, PT 10.6, INR 0.98, Sodium 142, Potassium 4.9, Chloride 107, Carbon Dioxide 29, Anion Gap 10.9, BUN 18 H, Creatinine 0.40 L, Estimated Creat Clear 49, Estimated GFR 160, Est GFR ( Amer) 194, Glucose 108 H, Lactate 1.5, Calcium 9.6, Magnesium 2.0, Total Bilirubin 0.5, AST 29, ALT 18, Alkaline Phosphatase 91, Total Creatine Kinase < 20 L, Troponin I < 0.01, Total Protein 7.3, Albumin 4.2, Globulin 3.1, Albumin/Globulin Ratio 1.4, TSH 2.25 12/21/23 16:12: Urine Color Yellow, Urine Appearance Cloudy, Urine pH 8.5, Ur Specific Center [place] 1.015, Urine Protein 1+, Urine Glucose (UA) Negative, Urine Ketones Negative, Urine Blood 1+, Urine Nitrate Positive, Urine Bilirubin Negative, Urine Urobilinogen 1.0, Ur Leukocyte Esterase 2+ A, Urine RBC 3-5, Urine WBC 20-50, Ur Squamous Epith Cells 5-10, Amorphous Sediment 3+, Urine Bacteria 1+ 12/21/23 15:55 12/21/23 15:55 Orders (Tests/Meds): ED MEDICATIONS Generic Name Dose Route Start Last Admin Trade Name Freq PRN Reason Stop Dose Admin Acetaminophen 1,000 mg 12/21/23 18:46 Acetaminophen 1,000mg/100ml Vial IV 12/21/23 18:47 ONCE ONE Levofloxacin/Dextrose 750 mg in 150 mls @ 100 mls/hr 12/21/23 17:15 12/21/23 18:19 Levofloxacin 750mg/150ml Premix IV 12/31/23 17:14 100 mls/hr Q24H ROWAN Administration Lactated Ringer's 1,000 mls @ 999 mls/hr 12/21/23 18:17 12/21/23 18:20 Lactated Ringer's 1000 Ml Bag IV 12/21/23 19:17 999 mls/hr .Q1H1M ONE Administration Ketorolac Tromethamine 30 mg 12/21/23 18:46 Ketorolac 30mg/Ml Vial IV 12/21/23 18:47 ONCE ONE Discontinued Medications Generic Name Dose Route Start Last Admin Trade Name Freq PRN Reason Stop Dose Admin Lactated Ringer's 1,000 mls @ 999 mls/hr 12/21/23 15:30 12/21/23 16:01 Lactated Ringer's 1000 Ml Bag IV 12/21/23 16:30 999 mls/hr .Q1H1M ONE Administration Levetiracetam 1,000 mg/ Sodium 110 mls @ 220 mls/hr 12/21/23 16:42 12/21/23 17:58 Chloride IV 12/21/23 16:43 220 mls/hr ONCE ONE Administration Iopamidol 170 ml 12/21/23 17:02 12/21/23 17:04 Iopamidol-370 (76%);100ml Bottle IV 12/21/23 17:03 170 ml ONCE ONE Administration Sodium Chloride 50 ml 12/21/23 17:02 12/21/23 17:04 0.9 % Sodium Chloride 50 Ml Vial IV 12/21/23 17:03 50 ml ONCE ONE Administration Sodium Chloride 10 ml 12/21/23 17:02 12/21/23 17:04 Sodium Chloride 0.9% 10ml Syr (Rad Only) IV 12/21/23 17:03 10 ml ONCE ONE Administration ORDERS Category Date Time Status CT angio chest - dissection Stat Cat Scan 12/21/23 15:[address] angio head Stat Cat Scan 12/21/23 15:[address] angio neck Stat Cat Scan 12/21/23 15:[address] cervical spine wo con Stat Cat Scan 12/21/23 15:[address] head/brain wo con Stat Cat Scan 12/21/23 15:30 Completed Femur XR left 2 views [XR femur LT 2V] Stat Exams 12/21/23 17:26 Completed CBC w/Auto Diff [Complete Blood Count Auto Diff] Stat Lab 12/21/23 15:55 Completed CK [Creatine Kinase] Stat Lab 12/21/23 15:55 Completed CMP [Comprehensive Metabolic Panel] Stat Lab 12/21/23 15:55 Completed INR [Prothrombin Time INR] Stat Lab 12/21/23 15:55 Completed Lactic Acid Stat Lab 12/21/23 15:55 Completed Magnesium Stat Lab 12/21/23 15:55 Completed Rapid PCR Covid and Flu A/B Stat Lab 12/21/23 15:39 Completed TSH [Thyroid Stimulating Hormone] Stat Lab 12/21/23 15:55 Completed Trop I [Troponin I] Stat Lab 12/21/23 15:55 Completed Troponin I Q3H Lab 12/21/23 18:30 Ordered Troponin I Q3H Lab 12/21/23 21:30 Ordered UA [Urinalysis and Microscopic] Stat Lab 12/21/23 16:12 Completed Urine Culture Stat Micro 12/21/23 16:12 Received Medical Decision Narrative: In summary patient is a 83-year-old female who presents to the emergency department for evaluation of ported convulsion. Patient is hemodynamically stable upon arrival, afebrile. Physical exam is remarkable for chronic appearing left-sided hip paresis and unremarkable for any focal neurologic deficits meningiomas cervical spine tenderness and patient's Anderson Coma Score is 15 and she is awake alert and oriented to person place and circumstance. Differential diagnosis includes seizure versus TIA versus muscle spasms versus meningitis versus electrolyte abnormalities versus infection etc. Initial workup will be conducted with CT of the head and neck without contrast and CTA of the head and neck, hematologic labs, urinalysis, twelve-lead EKG. Initial interventions include crystalloid bolus. Initial workup reviewed by me shows a normal white count with no left shift, normal potassium and normal calcium a very low CRP, a lactate of 1.5 urinalysis with nitrites and leukocytes and microscopic exam shows red blood cells both cells and +1 bacteria. Upon repeat evaluation patient has had no repeated seizure activity. There are conflicting reports from the patient, her , EMS, and the halfway regarding the length duration and type of activity seen, if any. Regarding the patient's urinary tract infection, she is likely colonized due to long standing neurogenic bladder and chronic indwelling Gastelum however her red blood cell count and white blood cell count are significantly higher than her normal baseline thus we will exchange her Gastelum and give her an IV dose of Levaquin now. Informal interpretation of her imaging shows no acute processes with a questionable manubrium fracture that is nondisplaced and the acuity of which is undetermined but no reported trauma today. Patient herself is asymptomatic and is not reproducible on exam. Remainder of her initial workup is unremarkable and nonactionable. Given her normal lactate calcium potassium CK prolonged tonic- clonic seizure seems less likely. Given this, patient is appropriate for discharge back to the long term facility with p.o. Levaquin daily for 10 days. <Chang Burroughs MD - Last Filed: 12/21/23 18:12> Vital Signs: 12/21/23 15:15 12/21/23 15:30 12/21/23 16:15 Temperature 98.1 F Temperature Source Oral Pulse Rate 91 H 89 Pulse Rate [Left Radial] 89 Respiratory Rate 16 Blood Pressure 136/81 133/82 Blood Pressure [Right Arm] 146/86 H Blood Pressure Mean [Right Arm] 106 Blood Pressure Source [Right Arm] Automatic Cuff Blood Pressure Position [Right Arm] Sitting 02 Sat by Pulse Oximetry 96 96 97 Oxygen Delivery Method Room Air Room Air 12/21/23 16:31 12/21/23 17:30 12/21/23 18:00 Temperature Temperature Source Pulse Rate 100 H 138 H 133 H Pulse Rate [Left Radial] Respiratory Rate Blood Pressure 156/101 H 147/87 H 147/93 H Blood Pressure [Right Arm] Blood Pressure Mean [Right Arm] Blood Pressure Source [Right Arm] Blood Pressure Position [Right Arm] 02 Sat by Pulse Oximetry 97 98 97 Oxygen Delivery Method 12/21/23 18:14 12/21/23 18:15 12/21/23 18:30 Temperature Temperature Source Pulse Rate 114 H 113 H 112 H Pulse Rate [Left Radial] Respiratory Rate Blood Pressure 143/92 H Blood Pressure [Right Arm] Blood Pressure Mean [Right Arm] Blood Pressure Source [Right Arm] Blood Pressure Position [Right Arm] 02 Sat by Pulse Oximetry 97 96 Oxygen Delivery Method Lab Data Lab Results 12/21/23 15:39: SARS-CoV-2 (PCR) Not detected, Influenza A Untype (PCR) Not detected, Influenza Type B (PCR) Not detected 12/21/23 15:55: WBC 6.1, RBC 4.92, Hgb 13.0, Hct 41.8, MCV 84.8, MCH 26.3 L, M CHC 31.1 L, RDW 16.0, Plt Count 174, MPV 8.0, Neut % (Auto) 81.2 H, Lymph % (Auto) 12.3, Harrison % (Auto) 3.9, Eos % (Auto) 1.6, Baso % (Auto) 1.0, Neut # (Auto) 5.0, Lymph # (Auto) 0.8, Harrison # (Auto) 0.2, Eos # (Auto) 0.1, Baso # (Auto) 0.1, PT 10.6, INR 0.98, Sodium 142, Potassium 4.9, Chloride 107, Carbon Dioxide 29, Anion Gap 10.9, BUN 18 H, Creatinine 0.40 L, Estimated Creat Clear 49, Estimated GFR 160, Est GFR ( Amer) 194, Glucose 108 H, Lactate 1.5, Calcium 9.6, Magnesium 2.0, Total Bilirubin 0.5, AST 29, ALT 18, Alkaline Phosphatase 91, Total Creatine Kinase < 20 L, Troponin I < 0.01, Total Protein 7.3, Albumin 4.2, Globulin 3.1, Albumin/Globulin Ratio 1.4, TSH 2.25 12/21/23 16:12: Urine Color Yellow, Urine Appearance Cloudy, Urine pH 8.5, Ur Specific Center [place] 1.015, Urine Protein 1+, Urine Glucose (UA) Negative, Urine Ketones Negative, Urine Blood 1+, Urine Nitrate Positive, Urine Bilirubin Negative, Urine Urobilinogen 1.0, Ur Leukocyte Esterase 2+ A, Urine RBC 3-5, Urine WBC 20-50, Ur Squamous Epith Cells 5-10, Amorphous Sediment 3+, Urine Bacteria 1+ Orders (Tests/Meds): ED MEDICATIONS Generic Name Dose Route Start Last Admin Trade Name Freq PRN Reason Stop Dose Admin Acetaminophen 1,000 mg 12/21/23 18:46 Acetaminophen 1,000mg/100ml Vial IV 12/21/23 18:47 ONCE ONE Levofloxacin/Dextrose 750 mg in 150 mls @ 100 mls/hr 12/21/23 17:15 12/21/23 18:19 Levofloxacin 750mg/150ml Premix IV 12/31/23 17:14 100 mls/hr Q24H ROWAN Administration Lactated Ringer's 1,000 mls @ 999 mls/hr 12/21/23 18:17 12/21/23 18:20 Lactated Ringer's 1000 Ml Bag IV 12/21/23 19:17 999 mls/hr .Q1H1M ONE Administration Ketorolac Tromethamine 30 mg 12/21/23 18:46 Ketorolac 30mg/Ml Vial IV 12/21/23 18:47 ONCE ONE Discontinued Medications Generic Name Dose Route Start Last Admin Trade Name Freq PRN Reason Stop Dose Admin Lactated Ringer's 1,000 mls @ 999 mls/hr 12/21/23 15:30 12/21/23 16:01 Lactated Ringer's 1000 Ml Bag IV 12/21/23 16:30 999 mls/hr .Q1H1M ONE Administration Levetiracetam 1,000 mg/ Sodium 110 mls @ 220 mls/hr 12/21/23 16:42 12/21/23 17:58 Chloride IV 12/21/23 16:43 220 mls/hr ONCE ONE Administration Iopamidol 170 ml 12/21/23 17:02 12/21/23 17:04 Iopamidol-370 (76%);100ml Bottle IV 12/21/23 17:03 170 ml ONCE ONE Administration Sodium Chloride 50 ml 12/21/23 17:02 12/21/23 17:04 0.9 % Sodium Chloride 50 Ml Vial IV 12/21/23 17:03 50 ml ONCE ONE Administration Sodium Chloride 10 ml 12/21/23 17:02 12/21/23 17:04 Sodium Chloride 0.9% 10ml Syr (Rad Only) IV 12/21/23 17:03 10 ml ONCE ONE Administration ORDERS Category Date Time Status CT angio chest - dissection Stat Cat Scan 12/21/23 15:[address] angio head Stat Cat Scan 12/21/23 15:[address] angio neck Stat Cat Scan 12/21/23 15:[address] cervical spine wo con Stat Cat Scan 12/21/23 15:[address] head/brain wo con Stat Cat Scan 12/21/23 15:30 Completed Femur XR left 2 views [XR femur LT 2V] Stat Exams 12/21/23 17:26 Completed CBC w/Auto Diff [Complete Blood Count Auto Diff] Stat Lab 12/21/23 15:55 Completed CK [Creatine Kinase] Stat Lab 12/21/23 15:55 Completed CMP [Comprehensive Metabolic Panel] Stat Lab 12/21/23 15:55 Completed INR [Prothrombin Time INR] Stat Lab 12/21/23 15:55 Completed Lactic Acid Stat Lab 12/21/23 15:55 Completed Magnesium Stat Lab 12/21/23 15:55 Completed Rapid PCR Covid and Flu A/B Stat Lab 12/21/23 15:39 Completed TSH [Thyroid Stimulating Hormone] Stat Lab 12/21/23 15:55 Completed Trop I [Troponin I] Stat Lab 12/21/23 15:55 Completed Troponin I Q3H Lab 12/21/23 18:30 Ordered Troponin I Q3H Lab 12/21/23 21:30 Ordered UA [Urinalysis and Microscopic] Stat Lab 12/21/23 16:12 Completed Urine Culture Stat Micro 12/21/23 16:12 Received ECG Data Tracing #1: Independently interpreted by me, rate is 89, rhythm is regular, axis is borderline leftward deviated, no ST elevation in anatomical contiguous leads, QTc 401, no delta wave, no dagger Q waves in the lateral leads, no evidence of Brugada Tracing #2: Independently interpreted by me, rate is 114, rhythm is regular, axis is leftward deviated, no ST elevation in anatomical contiguous leads, sinus tachycardia, QTc 392 Critical Care <TERENCE Torres - Last Filed: 12/21/23 18:59> Critical Care Time Critical Care Time: No
--- NOTE | 2023-12-21 15:30 | CT_ITS ---
PROCEDURE INFORMATION: Exam: CT Head Without Contrast Exam date and time: 12/21/2023 5:02 PM Age: 63 years old Clinical indication: Other: Seizure TECHNIQUE: Imaging protocol: Computed tomography of the head without contrast. Radiation optimization: All CT scans at this facility use at least one of these dose optimization techniques: automated exposure control; mA and/or kV adjustment per patient size (includes targeted exams where dose is matched to clinical indication); or iterative reconstruction. COMPARISON: CT ANGIO HEAD 09/14/2023 6:59 PM FINDINGS: Limitations: Motion artifact. Brain: No acute intracranial hemorrhage, midline shift or mass effect. Diffuse brain parenchymal volume loss. Mild hypodensities within the cerebral white matter most consistent with chronic small-vessel ischemic changes. 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 Cerebral ventricles: Ex vacuo dilatation of the ventricles. Cavum septum pellucidum et vergae. Paranasal sinuses: Visualized sinuses are unremarkable. No fluid levels. Mastoid air cells: Visualized mastoid air cells are well aerated. Bones/joints: Unremarkable. No acute fracture. Soft tissues: Unremarkable. IMPRESSION: No acute intracranial findings.
--- NOTE | 2023-12-21 15:31 | CT_ITS ---
PROCEDURE INFORMATION: Exam: CT Cervical Spine Without Contrast Exam date and time: 12/21/2023 5:05 PM Age: 63 years old Clinical indication: Other: Seizure TECHNIQUE: Imaging protocol: Computed tomography of the cervical spine without contrast. Radiation optimization: All CT scans at this facility use at least one of these dose optimization techniques: automated exposure control; mA and/or kV adjustment per patient size (includes targeted exams where dose is matched to clinical indication); or iterative reconstruction. COMPARISON: CT CERVICAL SPINE WO CON 03/15/2023 8:54 AM FINDINGS: Bones/joints: Cervical vertebrae normal in height. Chronic T3 compression fracture. No acute fracture. Straightening of normal cervical lordosis. Left lateral tilt. Minimal anterolisthesis C3 on C4 and C4 on C5. Maintained craniocervical junction. Multilevel degenerative changes. Varying degrees of [id number] neural foraminal narrowing. No severe spinal canal stenosis. Lungs: Lung apices are normal. Soft tissues: Unremarkable. IMPRESSION: No acute osseous findings.
--- NOTE | 2023-12-21 15:31 | CT_ITS ---
PROCEDURE INFORMATION: Exam: CTA Head With Contrast, Arteriography Exam date and time: 12/21/2023 5:08 PM Age: 63 years old Clinical indication: Convulsions / seizures; Additional info: Seizure TECHNIQUE: Imaging protocol: Computed tomographic angiography of the head with contrast. Exam focused on the arteries. 3D rendering (Not supervised by radiologist): MIP and/or 3D reconstructed images were created by the technologist. Radiation optimization: All CT scans at this facility use at least one of these dose optimization techniques: automated exposure control; mA and/or kV adjustment per patient size (includes targeted exams where dose is matched to clinical indication); or iterative reconstruction. Contrast material: ISOVUE 370; Contrast volume: 100 ml; Contrast route: INTRAVENOUS (IV); COMPARISON: CT ANGIO HEAD 09/14/2023 6:59 PM FINDINGS: ANTERIOR CIRCULATION: Right internal carotid artery: Intracranial segment is patent with no significant stenosis. No aneurysm. Right middle cerebral artery: No occlusion or significant stenosis. No aneurysm. Right anterior cerebral artery: No occlusion or significant stenosis. No aneurysm. Left internal carotid artery: Intracranial segment is patent with no significant stenosis. No aneurysm. Left middle cerebral artery: No occlusion or significant stenosis. No aneurysm. Left anterior cerebral artery: No occlusion or significant stenosis. No aneurysm. POSTERIOR CIRCULATION: Right vertebral artery: No occlusion or significant stenosis. No aneurysm. Left vertebral artery: No occlusion or significant stenosis. No aneurysm. Basilar artery: No occlusion or significant stenosis. No aneurysm. Right posterior cerebral artery: origin. No occlusion or significant stenosis. No aneurysm. Left posterior cerebral artery: No occlusion or significant stenosis. No aneurysm. Brain: No definite mass, mass effect, or midline shift. Cerebral ventricles: No ventriculomegaly. Bones/joints: Unremarkable. No acute fracture. Soft tissues: Unremarkable. IMPRESSION: No large vessel stenosis or occlusion.
--- NOTE | 2023-12-21 15:31 | CT_ITS ---
PROCEDURE INFORMATION: Exam: CTA Chest With Contrast Exam date and time: 12/21/2023 5:12 PM Age: 63 years old Clinical indication: Other: Seizure; Additional info: Trauma, critical injury suspected TECHNIQUE: Imaging protocol: Computed tomographic angiography of the chest with contrast. Exam focused on the arteries. 3D rendering (Not supervised by radiologist): MIP and/or 3D reconstructed images were created by the technologist. Radiation optimization: All CT scans at this facility use at least one of these dose optimization techniques: automated exposure control; mA and/or kV adjustment per patient size (includes targeted exams where dose is matched to clinical indication); or iterative reconstruction. Contrast material: ISOVUE; Contrast volume: 100 ml; Contrast route: INTRAVENOUS (IV); COMPARISON: CT ANGIO CHEST PE PROTOCOL 09/14/2023 7:05 PM FINDINGS: Pulmonary arteries: There is suboptimal opacification of pulmonary arteries due to contrast bolus timing. Aorta: Regions of atherosclerotic vascular calcification involving the aortic arch. Lungs: Bibasilar atelectasis versus parenchymal scarring. Pleural spaces: Unremarkable. No pneumothorax. No pleural effusion. Heart: Unremarkable. No cardiomegaly. No pericardial effusion. Coronary arteries: Coronary artery calcification Lymph nodes: Unremarkable. No enlarged lymph nodes. Bones/joints: Offset of the manubrium of the sternum. Interpretation limited secondary superimposed artifact however are suspicious for fracture. Persistent compression fracture T3 unchanged. chronic posttraumatic left rib deformities. Vertebroplasty T11, T12 unchanged. Soft tissues: Unremarkable. Other findings: Interpretation limited secondary to image degradation. Evidence of prior granulomatous disease IMPRESSION: 1. Offset of the manubrium of the sternum. Findings suspicious for fracture. Findings new since 09/14/2023. Interpretation limited secondary to superimposed artifact through this region. 2. Vertebroplasty T11, T12 unchanged. 3. No large or central pulmonary embolus. Evaluation of the peripheral pulmonary arteries is limited.
--- NOTE | 2023-12-21 15:31 | CT_ITS ---
PROCEDURE INFORMATION: Exam: CTA Neck With Contrast Exam date and time: 12/21/2023 5:08 PM Age: 63 years old Clinical indication: Convulsions / seizures; Additional info: Seizure TECHNIQUE: Imaging protocol: Computed tomographic angiography of the neck with contrast. Exam focused on the cervical segments of the vasculature. 3D rendering (Not supervised by radiologist): MIP and/or 3D reconstructed images were created by the technologist. Radiation optimization: All CT scans at this facility use at least one of these dose optimization techniques: automated exposure control; mA and/or kV adjustment per patient size (includes targeted exams where dose is matched to clinical indication); or iterative reconstruction. Contrast material: ISOVUE; Contrast volume: 100 ml; Contrast route: INTRAVENOUS (IV); COMPARISON: CT ANGIO NECK 09/14/2023 6:59 PM FINDINGS: Right common carotid artery: No stenosis. No dissection or occlusion. Right internal carotid artery: No stenosis of the extracranial segment. No dissection or occlusion. Right external carotid artery: No occlusion or stenosis of the origin. Left common carotid artery: Mild atherosclerotic narrowing of the carotid bulb without flow-limiting stenosis. No dissection or occlusion. Left internal carotid artery: Mild atherosclerotic narrowing of the proximal extracranial segment without flow-limiting stenosis. No dissection or occlusion. Left external carotid artery: No occlusion or stenosis of the origin. Right vertebral artery: No stenosis. No dissection or occlusion. Left vertebral artery: No stenosis. No dissection or occlusion. Soft tissues: Normal. No significant soft tissue swelling. Bones/joints: No acute fracture. Old T3 compression fracture. Cervical spondylosis. IMPRESSION: Mild less than 50% stenosis of the left proximal internal carotid artery. REFERENCES: NASCET CRITERIA. The degree of stenosis in the cervical segment of the internal carotid artery is based on NASCET criteria. Normal is no stenosis. Mild is less than 50% stenosis. Moderate is 50-69% stenosis. Severe is 70% to 99% stenosis. Total occlusion is no detectable patent lumen.
--- NOTE | 2023-12-21 15:36 | ECG_ITS ---
APPROVED REPORT Exam: Resting ECG HR:89 bpm ECG Measurements Heart Rate 89 AXES OH 140 P 55 QRSd 93 QRS -28 QT 354 T 51 QTc 401 Conclusion SINUS RHYTHM BORDERLINE LEFT AXIS DEVIATION [QRS AXIS < -20] INCOMPLETE RIGHT BUNDLE BRANCH BLOCK [90+ ms QRS DURATION, TERMINAL R IN V1/V2, 40+ ms S IN I/aVL/V4/V5/V6] BORDERLINE ECG Electronically signed by : MARIANELA CONTRERAS, 12/21/2023 23:58:17
[2023-12-21 15:51] LABS: Coronavirus 19, PCR Not Detected (NotDetected); Influenza A, PCR Not Detected (NotDetected); Influenza B, PCR Not Detected (NotDetected)
[2023-12-21] MEDS: LACTATED RINGERS 1000ML 1,000 ML 999 ML IV ×2 (16:01→18:20)
[2023-12-21 16:11] LABS: Basophils # 0.1 K/mm3 (0-0.2); Eosinophils # 0.1 K/mm3 (0.0-0.4); Eosinophils % 1.6 % (0.1-12.0); Hematocrit 41.8 % (37.0-47.0); Lymphocytes # 0.8 K/mm3 (0.7-4.5); Lymphocytes % 12.3 % (10-50); Mean Corpuscular HGB Conc 31.1 g/dL (31.8-35.4); Mean Corpuscular Hemoglobin 26.3 pg (27.0-31.2); Mean Corpuscular Volume 84.8 fl (81-99); Monocytes # 0.2 K/mm3 (0.1-1.0); Monocytes % 3.9 % (1.7-9.3); Neutrophils % 81.2 % (37.0-80.0); Platelet Count 174 K/mm3 (142-424); Red Blood Count 4.92 M/mm3 (4.20-5.40); White Blood Count 6.1 K/mm3 (4.8-10.8)
[2023-12-21 16:13] LABS: Chloride 107 mmol/L (98-107); Potassium 4.9 mmoL/L (3.5-5.1); Sodium 142 mmol/L (136-145)
[2023-12-21 16:16] LABS: Alanine Aminotransferase 18 U/L (12-78); Albumin Level 4.2 g/dl (3.5-5.0); Albumin/Globulin Ratio 1.4 (1.1-1.8); Alkaline Phosphatase 91 U/L (38-126); Anion Gap 10.9 mEq/L (5-15); Aspartate Amino Transferase 29 U/L (14-36); Bilirubin,Total 0.5 mg/dl (0.2-1.3); Blood Urea Nitrogen 18 mg/dl (7-17); Calcium 9.6 mg/dl (8.4-10.2); Carbon Dioxide 29 mmol/L (22.0-30.0); Creatinine Clearance Estimated 49 mL/min (50-200); Estimated Glomerular Filt Rate 160 ml/min (>60); GFR (African American) 194 ML/MIN (>60); Globulin 3.1 g/dL (1.3-3.2); Glucose 108 mg/dl (74-100); Total Protein,Serum 7.3 g/dl (6.3-8.2)
[2023-12-21 16:17] LABS: Creatine Kinase < 20 U/L (30-135); Lactic Acid 1.5 mmol/L (0.7-2.1)
[2023-12-21 16:18] LABS: INR 0.98 (0.9-1.1); Prothrombin Time 10.6 seconds (10.1-12.5)
[2023-12-21 16:19] LABS: Microscopic, Urine URINE MICROSCOPIC (MICROSCOPIC)
[2023-12-21 16:27] LABS: Appearance,Urine CLOUDY (Clear); Bilirubin,Urine Negative (Negative); Blood, Urine 1+ (Negative); Color,Urine YELLOW (Yellow); Glucose,Urine (UA) Negative (Negative); Ketones,Urine Negative (Negative); Leukocyte Esterase,Urine 2+ (Negative); Nitrate,Urine POSITIVE (Negative); PH,Urine 8.5 (5.0-8.5); Protein,Urine 1+ (Negative); Specific Gravity, Urine 1.015 (1.005-1.030)
[2023-12-21 16:29] LABS: Troponin I < 0.01 ng/ml (0.00-0.034)
[2023-12-21 16:47] LABS: Thyroid Stimulating Hormone 2.25 uIU/mL (0.465-4.68)
[2023-12-21 16:53] LABS: Amorphous Sediment,Urine 3+ /lpf; Bacteria,Urine 1+ /lpf; WBC,Urine 20-50 #/hpf (0-3)
[2023-12-21] MEDS: 0.9 % SODIUM CHLORIDE 50 ML VIAL IV (17:04)
[2023-12-21] MEDS: SODIUM CHLORIDE 0.9% 10ML SYR (RAD ONLY) 10 ML IV (17:04)
[2023-12-21] MEDS: IOPAMIDOL-370 (76%);100ML BOTTLE 170 ML IV (17:04)
--- NOTE | 2023-12-21 17:20 | PC.NURSE ---
patient back in room from CT at this time.
--- NOTE | 2023-12-21 17:26 | XR_ITS ---
PROCEDURE INFORMATION: Exam: XR Left Femur Exam date and time: 12/21/2023 6:06 PM Age: 63 years old Clinical indication: Pain; Thigh; Left TECHNIQUE: Imaging protocol: Radiologic exam of the left femur. Views: 2 views. COMPARISON: CR XR FEMUR LT 2V 05/17/2020 5:50 PM FINDINGS: Bones/joints: Osteopenia. No acute fracture or malalignment. Mild left hip and knee osteoarthritis. Soft tissues: Unremarkable. IMPRESSION: No acute osseous findings.
[2023-12-21] MEDS: levETIRAcetam 1,000 MG in 0.9 % SODIUM CHLORIDE 100 ML 220 MG IV (17:58)
--- NOTE | 2023-12-21 18:05 | ECG_ITS ---
APPROVED REPORT Exam: Resting ECG HR:114 bpm ECG Measurements Heart Rate [address] 161 P 74 QRSd 94 QRS -59 QT 324 T 66 QTc 392 Conclusion SINUS TACHYCARDIA INCOMPLETE RIGHT BUNDLE BRANCH BLOCK [90+ ms QRS DURATION, TERMINAL R IN V1/V2, 40+ ms S IN I/aVL/V4/V5/V6] LEFT ANTERIOR FASCICULAR BLOCK [QRS AXIS <= -45, QR IN I, RS IN II] MINIMAL ST DEPRESSION [0.025+ mV ST DEPRESSION] ABNORMAL ECG UNCONFIRMED REPORT Electronically signed by : FABIOLA GONZALEZ, 12/24/2023 06:54:53
--- NOTE | 2023-12-21 18:10 | PC.NURSE ---
RAD in room at bedside at this time.
[2023-12-21] MEDS: LEVOFLOXACIN/D5W 750 MG/150 ML 750 MG/150 ML PIGGYBACK 100 MG IV (18:19)
--- NOTE | 2023-12-21 18:50 | PC.NURSE ---
NEHA EMPTIED [address] OUT OF [facility]
[2023-12-21 19:28] LABS: Troponin I < 0.01 ng/ml (0.00-0.034)
[2023-12-21] MEDS: KETOROLAC 30MG/ML VIAL 30 MG IV (19:49)
[2023-12-21] MEDS: ACETAMINOPHEN 1,000MG/100ML VIAL 1000 MG IV (19:52)
--- NOTE | 2023-12-21 20:04 | PC.NURSE ---
Pt would like to speak with provider. MD notified.
--- NOTE | 2023-12-21 20:35 | PC.NURSE ---
Report called to the pts nurseDian.
--- NOTE | 2023-12-25 08:03 | PC.NURSE ---
urine culture prelim discussed with , pt dc with sp hagen at this time until final is back.
--- NOTE | 2023-12-26 10:12 | PC.NURSE ---
preliminary for urine culture discussed with Dr. Gil, pt was dc with levaquin, antibiotic changed to cefdinir due to susceptibility. [facility] contacted, spoke with Geneva the nurse caring for the pt, faxed culture results to [phone].
== END 2023-12-21 20:43 ==
PROVIDERS: Physician Assistant; Emergency Provider Emergency Medicine
DX: R56.9 Unspecified convulsions (principal); N39.0 Urinary tract infection, site not specified; B96.4 Proteus (mirabilis) (morganii) as the cause of diseases classified elsewhere; R00.0 Tachycardia, unspecified; G80.9 Cerebral palsy, unspecified; K21.9 Gastro-esophageal reflux disease without esophagitis; I10 Essential (primary) hypertension; E78.5 Hyperlipidemia, unspecified; N31.9 Neuromuscular dysfunction of bladder, unspecified; F41.1 Generalized anxiety disorder
CPT/HCPCS: 36415; 70450; 70496; 70498; 71275; 72125; 73552; 80053; 81001; 82550; 83605; 83735; 84443; 84484; 85025; 85610; 87086; 87636; 93005; 96361; 96365; 96366; 96375; 99285; J0131; J1953; J1956; Q9967

== ENCOUNTER 2024-01-03 11:45 | Emergency (ER) | payer MEDICARE, MEDICAID, SELFPAY ==
[2024-01-03] VITALS (7 sets, daily range): BP systolic 116–146; BP diastolic 73–78; PULSE 65–78; RESP 14–18; TEMP 36.6; O2SAT 97–98; BMI 17.7
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
[2024-01-03] MEDS: ACETAMINOPHEN 500MG TAB 1000 MG PO (12:24)
--- NOTE | 2024-01-03 14:27 | PC.NURSE ---
Called report to [facility] Nurse Geneva. Pt will be coming back to them via [facility]. Peter @ EMS notified of transfer
== END 2024-01-03 15:14 | disposition home or self-care (01) ==
PROVIDERS: Emergency Provider Student in an Organized Health Care Education/Training Program; PCP Internal Medicine Adolescent Medicine
DX: S22.22XA Fracture of body of sternum, initial encounter for closed fracture (principal); R06.02 Shortness of breath; W50.0XXA Accidental hit or strike by another person, initial encounter
CPT/HCPCS: 71250; 99284

== ENCOUNTER 2024-01-26 14:28 | Outpatient (POV) | payer MEDICARE, MEDICAID, SELFPAY ==
[2024-01-26 15:11] VITALS: BP 86/68; PULSE 91; RESP 19; O2SAT 95; BMI 19.2
--- NOTE | 2024-01-26 15:36 | EXP.PAIN.SOA ---
[facility] Pain Management SOAP Note Subjective:: Patient is a pleasant 63-year-old female who presents today for follow-up. Today she rates her pain an 8 out of 10. Patient denies any new recent issues or falls. Patient states her pain is all in her bilateral hips with the left side being the worst side. Patient does state the pain interferes with her ability perform activities of daily living such as cooking and cleaning. Patient is currently still living at the [facility]. Patient has been there for almost a year coming up in March for her recovery. Patient did previously have a fall and what they believed were additional seizures however she states today that they are thinking that they were not seizures however they are not really sure what was going on. Patient does state that they have recently added Keppra to her medication regimen and however they have been adjusting the dosage. Patient states that she is hoping that she will be able to get home soon. Patient does rely on a motorized wheelchair and has to rely on a lift to help with movement. Her Claus has been reviewed and is appropriate. Review of Systems: General: No recent weight changes, no fever, no sleep disturbances Respiratory: No cough, no shortness of air, no recurring pulmonary infections Cardiovascular/peripheral vascular: No chest pain, no palpitations, no edema, no shortness of breath Gastrointestinal: No new onset incontinence, normal bowel movements reported Genitourinary: No new onset incontinence Musculoskeletal: Bilateral hip pain Psychiatric: [Normal mood/affect] Neurological: [Denies weakness in extremities], [denies balance issues] Objective:: Physical Exam: General: Alert and oriented x3, no acute distress, pleasant and cooperative Lungs: Respirations even and unlabored, symmetrical chest expansion Eyes: PERRL Musculoskeletal: Flexion and extension of lumbar [spine] somewhat guarded secondary to pain, [antalgic gait noted] point tenderness along bilateral greater Neurological: Speech clear, no gross sensory deficit Assessment:: Chronic pain syndrome, greater trochanteric bursitis Plan:: Patient is experiencing worsening pain in her bilateral hips and point tenderness along her greater trochanteric bursa's. I have discussed with patient that she may benefit from bilateral greater trochanteric bursa injection. Risk and benefits were discussed with the patient and she would like to proceed forward with this plan of care. I have counseled the patient that we will work [id number] with the MedSurg department or whoever has the blair lift on the day of her injection and make sure that they are available to help move the patient on to the procedure table. Patient acknowledges understanding and agrees with this plan of care. We will schedule the patient for bilateral greater trochanteric bursa injections. Patient has been instructed to contact the clinic with any concerns before the next appointment. Dr. Robledo has reviewed this note and agrees with this plan of care. This note was dictated using voice recognition software and make contain errors or omissions. [facility] Disclaimer: The information contained in this section may have been updated after the patient was seen, as this information can be updated by other users. Medical History Depression Generalized anxiety disorder GERD (gastroesophageal reflux disease) History of hypertension Hyperlipidemia Neurogenic bladder monitor output, in and out catheter as needed New onset seizure Osteoporosis Physical debility Surgical History H/O kyphoplasty H/O thyroidectomy H/O tubal ligation Hx of appendectomy Family History Other No significant family history Social History Smoking Status: Never smoker second hand exposure: No alcohol intake: never counseling provided: none substance use type: denies use current occupational status: disabled Travel in the last 8 weeks: None household members: spouse housing: house lives independently: No marital status: number of children: 2 current occupational exposures/hazards: No caffeine: Yes
== END 2024-01-26 23:59 | disposition home or self-care (01) ==
LOC: SC.PAIN 14:29
PROVIDERS: PCP Internal Medicine Adolescent Medicine; Visit Provider Nurse Practitioner Family
DX: G89.4 Chronic pain syndrome (principal); M70.60 Trochanteric bursitis, unspecified hip
CPT/HCPCS: 99212; G0463

== ENCOUNTER 2024-03-09 09:18 | Day surgery (SDC) | payer MEDICARE, MEDICAID, SELFPAY ==
[2024-03-09 09:39] VITALS: BP 94/58; PULSE 94; RESP 16; TEMP 36.2; O2SAT 96; BMI 19.7
[2024-03-09] MEDS: LIDOCAINE 1% 5ML PF VIAL 5 ML (09:39)
[2024-03-09] MEDS: methylPREDNISolone ACETATE 80MG/ML VIAL 80 MG (09:39)
--- NOTE | 2024-03-09 09:46 | P.PCN_ITS ---
Procedure Date: 03/09/24 Time: 09:30 Anesthesiologist:: Francisco Javier Mcdonald CRNA Complications:: None Pre-procedure Diagnosis:: Bilateral trochanteric bursitis. Post-procedure Diagnosis:: Same. Indications for Procedure:: Patient is a pleasant 63-year-old female comes to clinic today for bilateral trochanteric bursa injection. Patient has cerebral palsy and lives full-time in a skilled care nursing facility. She sits 90% of the time in her motorized wheelchair. However, she does remain ambulatory with assistance to some degree. Procedure Details:: Procedure: Bilateral trochanteric bursa joint injections under fluoroscopy Informed consent was obtained and the risks and benefits of the procedure were explained to the patient.~ The patient was taken to the procedure room and noninvasive monitors were placed including a noninvasive blood pressure cuff and pulse oximeter.~ The patient was placed prone on the procedure table. Both hips were cleansed using Betadine as a cleansing solution. C-arm fluoroscopy was used to view the right trochanteric bursa joint.~ The skin and subcutaneous tissues were anesthetized using lidocaine 1.5% and a 25-gauge needle.~ After this, a 22- gauge spinal needle was inserted under fluoroscopic guidance into the inferior aspect of the right trochanteric bursa.~ Omnipaque dye was injected and good spread was seen throughout the joint.~ After this, approximately 5 mL of bupivacaine, 0.25% and Depo-Medrol, 40 mg was incrementally injected into the right sacroiliac joint. We then moved to the left trochanteric bursa joint.~ The skin and subcutaneous tissues were anesthetized using lidocaine 1.5% and a 25-gauge needle.~ After this, a 22-gauge spinal needle was inserted under fluoroscopic guidance into the inferior aspect of the left trochanteric bursa joint.~ Omnipaque dye was injected and good spread was seen throughout the joint. After this, approximately 5 mL of bupivacaine, 0.25% and Depo-Medrol, 40 mg was incrementally injected into the left sacroiliac joint.~ The patient tolerated the procedure well with no complications. The patient was observed in the Pain Clinic and then was discharged home neurologically intact. Plan and Disposition:: Patient was discharged without incident.
[2024-03-09 09:52] VITALS: BP 91/61; PULSE 88; RESP 18; O2SAT 98
== END 2024-03-09 09:53 | disposition home or self-care (01) ==
PROVIDERS: PCP Internal Medicine Adolescent Medicine; Visit Provider Nurse Anesthetist, Certified Registered
DX: M70.61 Trochanteric bursitis, right hip (principal); M70.62 Trochanteric bursitis, left hip
CPT/HCPCS: 20610; 77002; J1010

== ENCOUNTER 2024-04-28 10:28 | Outpatient (POV) | payer MEDICARE, MEDICAID, SELFPAY ==
[2024-04-28 10:57] VITALS: BP 98/59; PULSE 76; RESP 16; O2SAT 99; BMI 19.0
--- NOTE | 2024-04-28 10:58 | A.OFFVIS_ITS ---
[facility] Disclaimer: The information contained in this section may have been updated after the patient was seen, as this information can be updated by other users. Medical History Depression Generalized anxiety disorder GERD (gastroesophageal reflux disease) History of hypertension Hyperlipidemia Neurogenic bladder monitor output, in and out catheter as needed New onset seizure Osteoporosis Physical debility Surgical History H/O kyphoplasty H/O thyroidectomy H/O tubal ligation Hx of appendectomy Family History Other No significant family history Social History Smoking Status: Never smoker second hand exposure: No alcohol intake: never counseling provided: none substance use type: denies use current occupational status: disabled Travel in the last 8 weeks: None household members: spouse housing: house lives independently: No marital status: number of children: 2 current occupational exposures/hazards: No caffeine: Yes PM Subjective & Objective Subjective Subjective:: Patient is a pleasant 63-year-old female who presents today for follow-up of bilateral greater trochanteric bursa injections. Today she rates her pain an 7 out of 10. Patient denies any new injuries or falls. She does state that they did seem to help some. She rates the improvement of about 70%. She does still have chronic pain throughout her low back and hips. She does describe this pain as something a little bit different that does feel more around her low back and buttocks area. She describes it as an aching sensation with pressure and does state and interferes with her ability perform activities of daily living such as cooking and cleaning. She does state that from her last visit she has not had a ny additional seizures with the Keppra medication and that she did just recently have surgery for a suprapubic urinary catheter. Patient denies any problems from this procedure and states she is doing well. Patient does state however that she still would like to be at home and do home health or physical therapy here at the hospital. Patient states that the skilled nursing is very nice however is just not like home. Her Claus has been reviewed and is appropriate. Review of Systems: General: No recent weight changes, no fever, no sleep disturbances Respiratory: No cough, no shortness of air, no recurring pulmonary infections Cardiovascular/peripheral vascular: No chest pain, no palpitations, no edema, no shortness of breath Gastrointestinal: No new onset incontinence, normal bowel movements reported Genitourinary: No new onset incontinence Musculoskeletal: Bilateral hip pain, low back pain Psychiatric: [Normal mood/affect] Neurological: [Denies weakness in extremities], [denies balance issues] Pain at rest (0-10 scale): 7 Objective Objective:: Physical Exam: General: Alert and oriented x3, no acute distress, pleasant and cooperative Lungs: Respirations even and unlabored, symmetrical chest expansion Eyes: PERRL Musculoskeletal: Flexion and extension of lumbar [spine] somewhat guarded secondary to pain, [antalgic gait noted] point tenderness along bilateral SIs with positive bilateral Fidencio's, Karlie's, Gaenslen's, compression and distraction exam Neurological: Speech clear, no gross sensory deficit Has patient had previous pain injection?: Yes Percent improvement in pain since last injection: 70% Conservative treatment options previously tried: Home exercise plan Length of treatment: Longer than 6 weeks Meds Home Medications and Allergies Home Medications ?Medication ?Instructions ?Recorded ?Confirmed ?Type cyanocobalamin (vitamin B-12) 1,000 mcg IM MONTHLY Supplement 11/04/18 04/28/24 History 1,000 mcg/mL injection solution linaclotide 72 mcg capsule 72 mcg PO DAILY IBS 11/04/18 04/28/24 History (Linzess) cholecalciferol (vitamin D3) 50 2,000 unit PO DAILY Supplement 10/11/19 04/28/24 History mcg (2,000 unit) tablet levothyroxine 200 mcg tablet 200 mcg PO DAILY THYROID 02/14/23 04/28/24 History omeprazole 40 mg capsule,delayed 40 mg PO DAILY Acid reflux 02/14/23 04/28/24 History release gabapentin 100 mg capsule 100 mg PO BID neuropathy 02/15/23 04/28/24 History daptomycin 350 mg intravenous 350 mg IV Q24H cellulitis 02/25/23 04/28/24 History solution lorazepam 0.5 mg tablet (Ativan) 0.5 mg PO BID PRN anxiety #60 tabs 02/26/23 04/28/24 Rx sertraline 100 mg tablet 200 mg (2 x 100 mg) PO DAILY mood 02/26/23 04/28/24 Rx #60 tabs hydrocodone 5 mg-acetaminophen 325 1 tab PO Q6H PRN pain 3 days #12 03/10/23 04/28/24 Rx mg tablet tabs cephalexin 500 mg capsule 500 mg PO BID 10 days #20 caps 12/27/23 04/28/24 Rx hydrocodone 5 mg-acetaminophen 325 1 tab PO Q6H PRN pain 3 days #12 01/03/24 04/28/24 Rx mg tablet tabs New Prescriptions to Start Prescriptions: Allergies Allergy/AdvReac Type Severity Reaction Status Date / Time metoclopramide [From REGLAN] Allergy Mild I-RASH Verified 03/09/24 09:38 Sulfa (Sulfonamide Allergy Mild I-RASH Verified 03/09/24 09:38 Antibiotics) [SULFA (SULFONAMIDE ANTIBIOTICS)] morphine Allergy Vomiting Verified 03/09/24 09:38 Assessment and Plan *Assessment and plan (1) Bilateral sacroiliitis: Status: Acute Category: Medical Code(s): M46.1 - Sacroiliitis, not elsewhere classified Plan Patient is experiencing worsening pain in and around her low back and bilateral hips with point tenderness along her bilateral SIs and a positive bilateral Fidencio's, Karlie's, Gaenslen's, compression and distraction exam. I did discuss with the patient that she may benefit from bilateral SI injections. Risk and benefits were discussed with the patient and she would like to proceed forward with this plan of care. She has had these injections in the past and they did provide significant relief of more than 80% lasting several months. Patient has not had these injections since August 2023. Patient has tried and failed conservative therapy including continued at home stretching exercise for longer than 6 weeks. Patient is still in [facility] and does get physical therapy on a regular basis. We will schedule the patient for bilateral SI injections under fluoroscopy. Patient has been instructed to contact the clinic with any concerns before the next appointment. Dr. Robledo has reviewed this note and agrees with this plan of care. This note was dictated using voice recognition software and make contain errors or omissions. All injections are used with Lidocaine or Bupivacaine and Depo Medrol.
== END 2024-04-28 23:59 | disposition home or self-care (01) ==
LOC: SC.PAIN 10:29
PROVIDERS: PCP Internal Medicine Adolescent Medicine; Visit Provider Nurse Practitioner Family
DX: M46.1 Sacroiliitis, not elsewhere classified (principal); Z97.8 Presence of other specified devices; Z73.89 Other problems related to life management difficulty; Z79.899 Other long term (current) drug therapy
CPT/HCPCS: 99212; G0463

== ENCOUNTER 2024-05-05 18:46 | Emergency (ER) | payer MEDICARE, MEDICAID, SELFPAY ==
[2024-05-05 18:47] VITALS: BP 122/74; PULSE 74; RESP 18; TEMP 36.6; O2SAT 98; BMI 19.0
[2024-05-05 18:50] VITALS: PULSE 90; O2SAT 98
--- NOTE | 2024-05-05 19:04 | PC.NURSE ---
Called [facility] per Dr Clark to speak with them about this pt with a new super pubic jacobs catheter that is stopping it up and the pt has over 1000 mls of urine in the bladder
--- NOTE | 2024-05-05 19:05 | PC.NURSE ---
[facility] advised that they would call us back.
--- NOTE | 2024-05-05 19:17 | HMH.EDGENADL ---
Discharge Plan Disposition Patient Disposition: Xfer Short-Term Hosp Chief Complaint: Abdominal Pain Prescriptions Prescriptions: No Action cyanocobalamin (vitamin B-12) 1,000 mcg/mL solution 1,000 mcg IM MONTHLY Linzess 72 mcg capsule 72 mcg PO DAILY cholecalciferol (vitamin D3) 50 mcg (2,000 unit) tablet 2,000 unit PO DAILY sertraline 100 mg tablet 200 mg PO DAILY Qty: 60 2RF lorazepam [Ativan] 0.5 mg tablet 0.5 mg PO BID PRN (Reason: anxiety) Qty: 60 1RF omeprazole 40 mg capsule,delayed release(DR/EC) 40 mg PO DAILY Patient Comments: TAKE 1 CAPSULE BY MOUTH ONCE DAILY levothyroxine 200 mcg tablet 200 mcg PO DAILY Patient Comments: TAKE 1 TABLET BY MOUTH ONCE DAILY gabapentin 100 mg Capsule 100 mg PO BID daptomycin 350 mg recon soln 350 mg IV Q24H Rx Instructions: administer over 30 mins hydrocodone-acetaminophen 5-325 mg tablet 1 tab PO Q6H PRN (Reason: pain) 3 Days Qty: 12 0RF cephalexin 500 mg capsule 500 mg PO BID 10 Days Qty: 20 0RF hydrocodone-acetaminophen 5-325 mg tablet 1 tab PO Q6H PRN (Reason: pain) 3 Days Qty: 12 0RF Referrals Follow up/Referrals: Luis Henderson MD [Primary Care Provider] - See instructions Clinical Impressions Clinical Impression: Obstructed suprapubic catheter, Bladder distension Instructions Patient Instructions: DI for Acute Abdominal Pain Print Language Print Language: Slovenian Discharge ED Provider: Trevon Clark General Adult HPI General Chief complaint: Abdominal Pain Stated complaint: ABD Pain Time Seen by Provider: 05/05/24 18:47 Mode of Arrival: EMS Source of Information: Patient and EMS Limitations: No Limitations Description of Symptoms (Recalled from ER Triage Doc. by RN): Reports having a suprapubic catheter placed on 04/21 and today he belly became distended with scant amount of urine output. Complaint of abdomen pain upon arrival. History of Present Illness HPI narrative: Please note that above description of symptoms, in this electronic medical record under categorization of recalled from ER triage doctor by RN are reflective of an initial nursing assessment, however, is not reflective of my full history and physical exam that was personally taken and clarified. Consequentially, this preceding description of symptoms, which may include the patient's categorized chief complaint in the EMR, do not reflect my personal clinical impression, and the ultimate description of history of present illness and patient stated complaints should be deferred to this section of the note. Unless stated otherwise or congruent with this section of the note, additional signs, symptoms, or incongruence should be interpreted as inaccurate with my clinical impression. Related Data Home Medications ?Medication ?Instructions ?Recorded ?Confirmed cyanocobalamin (vitamin B-12) 1,000 mcg IM MONTHLY Supplement 11/04/18 04/28/24 1,000 mcg/mL injection solution linaclotide 72 mcg capsule 72 mcg PO DAILY IBS 11/04/18 04/28/24 (Linzess) cholecalciferol (vitamin D3) 50 2,000 unit PO DAILY Supplement 10/11/19 04/28/24 mcg (2,000 unit) tablet levothyroxine 200 mcg tablet 200 mcg PO DAILY THYROID 02/14/23 04/28/24 omeprazole 40 mg capsule,delayed 40 mg PO DAILY Acid reflux 02/14/23 04/28/24 release gabapentin 100 mg capsule 100 mg PO BID neuropathy 02/15/23 04/28/24 daptomycin 350 mg intravenous 350 mg IV Q24H cellulitis 02/25/23 04/28/24 solution Previous Rx's ?Medication ?Instructions ?Recorded lorazepam 0.5 mg tablet (Ativan) 0.5 mg PO BID PRN anxiety #60 tabs 02/26/23 sertraline 100 mg tablet 200 mg (2 x 100 mg) PO DAILY mood 02/26/23 #60 tabs hydrocodone 5 mg-acetaminophen 325 1 tab PO Q6H PRN pain 3 days #12 03/10/23 mg tablet tabs cephalexin 500 mg capsule 500 mg PO BID 10 days #20 caps 12/27/23 hydrocodone 5 mg-acetaminophen 325 1 tab PO Q6H PRN pain 3 days #12 01/03/24
--- NOTE | 2024-05-05 21:30 | PC.NURSE ---
contacted EMS spoke with Pauline Jerry for update on transport they are working on getting stuff together for the transfer
[2024-05-05 22:04] VITALS: BP 114/62; PULSE 84; RESP 18; TEMP 37.1; O2SAT 97
== END 2024-05-05 22:08 | disposition short-term general hospital (02) ==
PROVIDERS: Emergency Provider Emergency Medicine; PCP Internal Medicine Adolescent Medicine
DX: T83.091A Other mechanical complication of indwelling urethral catheter, initial encounter (principal); R33.8 Other retention of urine; N32.89 Other specified disorders of bladder; R25.2 Cramp and spasm; N31.9 Neuromuscular dysfunction of bladder, unspecified
CPT/HCPCS: 99291

== ENCOUNTER 2024-05-11 09:03 | Day surgery (SDC) | payer MEDICARE, MEDICAID, SELFPAY ==
[2024-05-11 09:19] VITALS: BP 95/61; PULSE 64; RESP 16; TEMP 36.7; O2SAT 90; BMI 19.3
[2024-05-11] MEDS: BUPIVACAINE 0.25% 10ML INJ 25 MG IJ (09:39)
[2024-05-11] MEDS: LIDOCAINE 1% 5ML PF VIAL 5 ML (09:39)
[2024-05-11] MEDS: methylPREDNISolone ACETATE 80MG/ML VIAL 80 MG (09:40)
--- NOTE | 2024-05-11 09:49 | P.PCN_ITS ---
Procedure Date: 05/11/24 Time: 09:40 Anesthesiologist:: Francisco Javier Mcdonald CRNA Complications:: None Pre-procedure Diagnosis:: Bilateral sacroiliitis Post-procedure Diagnosis:: Same Indications for Procedure:: Patient is a pleasant 63-year-old female comes our clinic today for bilateral sacroiliac joint injections of cortisone. Patient is confined to wheelchair at all times. She reports sitting has become increasingly painful. Shifting from right to left is not helpful due to pain on the bilateral. She rates her pain 8/10. Procedure Details:: Procedure: Bilateral sacroiliac joint injections under fluoroscopy Informed consent was obtained and the risks and benefits of the procedure were explained to the patient.~ The patient was taken to the procedure room and noninvasive monitors were placed including a noninvasive blood pressure cuff and pulse oximeter.~ The patient was placed prone on the procedure table. Both hips were cleansed using Betadine as a cleansing solution. C-arm fluoroscopy was used to view the right sacroiliac joint.~ The skin and subcutaneous tissues were anesthetized using lidocaine 1.5% and a 25-gauge needle.~ After this, a 22-gauge spinal needle was inserted under fluoroscopic guidance into the inferior aspect of the right sacroiliac joint.~ Omnipaque dye was injected and good spread was seen throughout the joint.~ After this, approximately 5 mL of bupivacaine, 0.25% and Depo-Medrol, 40 mg was incrementally injected into the right sacroiliac joint. We then moved to the left sacroiliac joint.~ The skin and subcutaneous tissues were anesthetized using lidocaine 1.5% and a 25-gauge needle.~ After this, a 22- gauge spinal needle was inserted under fluoroscopic guidance into the inferior aspect of the left sacroiliac joint.~ Omnipaque dye was injected and good spread was seen throughout the joint. After this, approximately 5 mL of bupivacaine, 0.25% and Depo-Medrol, 40 mg was incrementally injected into the left sacroiliac joint.~ The patient tolerated the procedure well with no complications. The patient was observed in the Pain Clinic and then was discharged home neurologically intact. Plan and Disposition:: Patient was discharged without incident.
[2024-05-11 10:16] VITALS: BP 103/66; PULSE 74; RESP 16; O2SAT 92
== END 2024-05-11 10:16 | disposition home or self-care (01) ==
PROVIDERS: PCP Internal Medicine Adolescent Medicine; Visit Provider Nurse Anesthetist, Certified Registered
DX: M46.1 Sacroiliitis, not elsewhere classified (principal)
CPT/HCPCS: 27096; G0260; J1010

== ENCOUNTER 2024-06-02 13:06 | Outpatient (POV) | payer MEDICARE, MEDICAID, SELFPAY ==
--- NOTE | 2024-06-02 13:38 | EXP.PAIN.SOA ---
[facility] Disclaimer: The information contained in this section may have been updated after the patient was seen, as this information can be updated by other users. Medical History Depression Generalized anxiety disorder GERD (gastroesophageal reflux disease) History of hypertension Hyperlipidemia Neurogenic bladder monitor output, in and out catheter as needed New onset seizure Osteoporosis Physical debility Surgical History H/O kyphoplasty H/O thyroidectomy H/O tubal ligation Hx of appendectomy Family History Other No significant family history Social History Smoking Status: Unknown if ever smoked second hand exposure: No alcohol intake: never counseling provided: none substance use type: denies use current occupational status: unemployed Travel in the last 8 weeks: None household members: spouse housing: house lives independently: No marital status: number of children: 2 current occupational exposures/hazards: No caffeine: Yes PM Subjective & Objective Subjective Subjective:: Patient is being patient is a pleasant 63-year-old female who presents today for follow-up of bilateral SI injections on 05/11/2024. Today she rates her pain a 4 out of 10. Patient does state that she has had significant improvement following these injections of at least 50 to 80%. Patient states that it did help much more in the beginning and has worn down however is still helping some. Patient denies any new trauma or injury. Patient states that she is still having some difficulty turning [id number] more so to the left. Patient does states she is scheduled for a follow-up on Friday at for additional imaging and urology appointment from her suprapubic catheter placement. Patient does state that she is still currently in the [facility] sn[facility]. Her Claus has been reviewed and is appropriate. Review of Systems: General: No recent weight changes, no fever, no sleep disturbances Respiratory: No cough, no shortness of air, no recurring pulmonary infections Cardiovascular/peripheral vascular: No chest pain, no palpitations, no edema, no shortness of breath Gastrointestinal: No new onset incontinence, normal bowel movements reported Genitourinary: No new onset incontinence Musculoskeletal: Low back, bilateral hip pain Psychiatric: [Normal mood/affect] Neurological: [Denies weakness in extremities], [denies balance issues] Pain at rest (0-10 scale): 4 Objective Objective:: Physical Exam: General: Alert and oriented x3, no acute distress, pleasant and cooperative Lungs: Respirations even and unlabored, symmetrical chest expansion Eyes: PERRL Musculoskeletal: Flexion and extension of lumbar [spine] somewhat guarded secondary to pain, [antalgic gait noted] Neurological: Speech clear, no gross sensory deficit Has patient had previous pain injection?: Yes Percent improvement in pain since last injection: 50 to 80% Conservative treatment options previously tried: Home exercise plan Length of treatment: Longer than 6 weeks Meds Home Medications and Allergies Home Medications ?Medication ?Instructions ?Recorded ?Confirmed ?Type cyanocobalamin (vitamin B-12) 1,000 mcg IM MONTHLY Supplement 11/04/18 05/11/24 History 1,000 mcg/mL injection solution linaclotide 72 mcg capsule 72 mcg PO DAILY IBS 11/04/18 05/11/24 History (Linzess) cholecalciferol (vitamin D3) 50 2,000 unit PO DAILY Supplement 10/11/19 05/11/24 History mcg (2,000 unit) tablet levothyroxine 200 mcg tablet 200 mcg PO DAILY THYROID 02/14/23 05/11/24 History omeprazole 40 mg capsule,delayed 40 mg PO DAILY Acid reflux 02/14/23 05/11/24 History release gabapentin 100 mg capsule 100 mg PO BID neuropathy 02/15/23 05/11/24 History daptomycin 350 mg intravenous 350 mg IV Q24H cellulitis 02/25/23 05/11/24 History solution lorazepam 0.5 mg tablet (Ativan) 0.5 mg PO BID PRN anxiety #60 tabs 02/26/23 05/11/24 Rx sertraline 100 mg tablet 200 mg (2 x 100 mg) PO DAILY mood 02/26/23 05/11/24 Rx #60 tabs hydrocodone 5 mg-acetaminophen 325 1 tab PO Q6H PRN pain 3 days #12 03/10/23 05/11/24 Rx mg tablet tabs cephalexin 500 mg capsule 500 mg PO BID 10 days #20 caps 12/27/23 05/11/24 Rx hydrocodone 5 mg-acetaminophen 325 1 tab PO Q6H PRN pain 3 days #12 01/03/24 05/11/24 Rx mg tablet tabs New Prescriptions to Start Prescriptions: Allergies Allergy/AdvReac Type Severity Reaction Status Date / Time metoclopramide [From REGLAN] Allergy Mild I-RASH Verified 05/11/24 09:22 Sulfa (Sulfonamide Allergy Mild I-RASH Verified 05/11/24 09:22 Antibiotics) [SULFA (SULFONAMIDE ANTIBIOTICS)] morphine Allergy Vomiting Verified 05/11/24 09:22 Assessment and Plan *Assessment and plan (1) Degenerative disc disease, lumbar: Status: Acute Category: Medical Code(s): M51.36 - Other intervertebral disc degeneration, lumbar region (2) Bilateral sacroiliitis: Status: Acute Category: Medical Code(s): M46.1 - Sacroiliitis, not elsewhere classified (3) Lumbar radiculopathy: Status: Acute Category: Medical Code(s): M54.16 - Radiculopathy, lumbar region Plan Patient did have significant improvement with her SI injections. I did discuss with the patient due to her feeling like she still has a lot of difficulty with range of movements in her hips and low back area with some weakness into her legs I have discussed with the patient that I will order physical therapy for they are at the [facility] for evaluation and treatment of her overall low back, hip and leg pain symptoms. Patient will return to clinic in 1 month for reevaluation of symptoms and plan of care. Patient has been instructed to contact the clinic with any concerns before the next appointment. Dr. Robledo has reviewed this note and agrees with this plan of care. This note was dictated using voice recognition software and make contain errors or omissions. All injections are used with Lidocaine or Bupivacaine and Depo Medrol.
[2024-06-02 14:35] VITALS: BP 116/56; PULSE 80; RESP 18; O2SAT 96; BMI 20.5
== END 2024-06-02 23:59 | disposition home or self-care (01) ==
LOC: SC.PAIN 13:07
PROVIDERS: PCP Internal Medicine Adolescent Medicine; Visit Provider Nurse Practitioner Family
DX: M46.1 Sacroiliitis, not elsewhere classified; M51.16 Intervertebral disc disorders with radiculopathy, lumbar region
CPT/HCPCS: 99212; G0463

== ENCOUNTER 2024-07-01 13:25 | Outpatient (POV) | payer MEDICARE, MEDICAID, SELFPAY ==
--- NOTE | 2024-07-01 14:23 | EXP.PAIN.SOA ---
[facility] Disclaimer: The information contained in this section may have been updated after the patient was seen, as this information can be updated by other users. Medical History Depression Generalized anxiety disorder GERD (gastroesophageal reflux disease) History of hypertension Hyperlipidemia Neurogenic bladder monitor output, in and out catheter as needed New onset seizure Osteoporosis Physical debility Surgical History H/O kyphoplasty H/O thyroidectomy H/O tubal ligation Hx of appendectomy Family History Other No significant family history Social History Smoking Status: Unknown if ever smoked second hand exposure: No alcohol intake: never counseling provided: none substance use type: denies use current occupational status: disabled Travel in the last 8 weeks: None household members: spouse housing: house lives independently: No marital status: number of children: 2 current occupational exposures/hazards: No caffeine: Yes PM Subjective & Objective Subjective Subjective:: Patient is a pleasant 64-year-old female who presents today for 1 month follow-up. She does rate her pain today. She rates her pain a 4 out of 10. Patient states that she is still having significant help along the left side from her last SI injection however the right side is a little bit more painful. Patient states it is still better than what it had been but she does have more soreness along this hip. Patient does state from her last visit that the physical therapy order that she brought to [facility] was apparently lost and they stated that they cannot find the order. Patient states that she does feel like she still has weakness into her legs and feels like that she would benefit from the PT like we talked about at last visit. Patient does also states she would still like to go back home and not be at the group home anymore. Her Claus has been reviewed and is appropriate. Review of Systems: General: No recent weight changes, no fever, no sleep disturbances Respiratory: No cough, no shortness of air, no recurring pulmonary infections Cardiovascular/peripheral vascular: No chest pain, no palpitations, no edema, no shortness of breath Gastrointestinal: No new onset incontinence, normal bowel movements reported Genitourinary: No new onset incontinence Musculoskeletal: Low back pain, right hip pain, bilateral leg weakness Psychiatric: [Normal mood/affect] Neurological: [Denies weakness in extremities], [denies balance issues] Pain at rest (0-10 scale): 4 Objective Objective:: Physical Exam: General: Alert and oriented x3, no acute distress, pleasant and cooperative Lungs: Respirations even and unlabored, symmetrical chest expansion Eyes: PERRL Musculoskeletal: Flexion and extension of lumbar [spine] somewhat guarded secondary to pain, [antalgic gait noted] Neurological: Speech clear, no gross sensory deficit Has patient had previous pain injection?: No Conservative treatment options previously tried: Home exercise plan Length of treatment: Longer than 12 weeks Meds Home Medications and Allergies Home Medications ?Medication ?Instructions ?Recorded ?Confirmed ?Type cyanocobalamin (vitamin B-12) 1,000 mcg IM MONTHLY Supplement 11/04/18 06/02/24 History 1,000 mcg/mL injection solution linaclotide 72 mcg capsule 72 mcg PO DAILY IBS 11/04/18 06/02/24 History (Linzess) cholecalciferol (vitamin D3) 50 2,000 unit PO DAILY Supplement 10/11/19 06/02/24 History mcg (2,000 unit) tablet levothyroxine 200 mcg tablet 200 mcg PO DAILY THYROID 02/14/23 06/02/24 History omeprazole 40 mg capsule,delayed 40 mg PO DAILY Acid reflux 02/14/23 06/02/24 History release gabapentin 100 mg capsule 100 mg PO BID neuropathy 02/15/23 06/02/24 History daptomycin 350 mg intravenous 350 mg IV Q24H cellulitis 02/25/23 06/02/24 History solution lorazepam 0.5 mg tablet (Ativan) 0.5 mg PO BID PRN anxiety #60 tabs 02/26/23 06/02/24 Rx sertraline 100 mg tablet 200 mg (2 x 100 mg) PO DAILY mood 02/26/23 06/02/24 Rx #60 tabs hydrocodone 5 mg-acetaminophen 325 1 tab PO Q6H PRN pain 3 days #12 01/03/24 06/02/24 Rx mg tablet tabs New Prescriptions to Start Prescriptions: Allergies Allergy/AdvReac Type Severity Reaction Status Date / Time metoclopramide [From REGLAN] Allergy Mild I-RASH Verified 05/11/24 09:22 Sulfa (Sulfonamide Allergy Mild I-RASH Verified 05/11/24 09:22 Antibiotics) [SULFA (SULFONAMIDE ANTIBIOTICS)] morphine Allergy Vomiting Verified 05/11/24 09:22 Assessment and Plan *Assessment and plan (1) Degenerative disc disease, lumbar: Status: Acute Category: Medical Code(s): M51.36 - Other intervertebral disc degeneration, lumbar region (2) Lumbar radiculopathy: Status: Acute Category: Medical Code(s): M54.16 - Radiculopathy, lumbar region (3) Bilateral sacroiliitis: Status: Acute Category: Medical Code(s): M46.1 - Sacroiliitis, not elsewhere classified Plan I did discuss with the patient that I will write a new order for the physical therapy and we will also reach out to [facility] to confirm that they do start the physical therapy to help with her overall low back, hip and leg symptoms as well as leg weakness. Patient will return to clinic in 6 weeks for reevaluation of symptoms and plan of care. Patient has been instructed to contact the clinic with any concerns before the next appointment. Dr. Robledo has reviewed this note and agrees with this plan of care. This note was dictated using voice recognition software and make contain errors or omissions. All injections are used with Lidocaine or Bupivacaine and Depo Medrol.
[2024-07-01 15:24] VITALS: BP 106/70; PULSE 87; RESP 18; O2SAT 97; BMI 20.5
== END 2024-07-01 23:59 | disposition home or self-care (01) ==
LOC: SC.PAIN 13:26
PROVIDERS: PCP Internal Medicine Adolescent Medicine; Visit Provider Nurse Practitioner Family
DX: M46.1 Sacroiliitis, not elsewhere classified; M51.16 Intervertebral disc disorders with radiculopathy, lumbar region
CPT/HCPCS: 99212; G0463

== ENCOUNTER 2024-08-11 13:05 | Outpatient (POV) | payer MEDICARE, MEDICAID, SELFPAY ==
--- NOTE | 2024-08-11 13:12 | EXP.PAIN.SOA ---
[facility] Disclaimer: The information contained in this section may have been updated after the patient was seen, as this information can be updated by other users. Medical History Depression Generalized anxiety disorder GERD (gastroesophageal reflux disease) History of hypertension Hyperlipidemia Neurogenic bladder monitor output, in and out catheter as needed New onset seizure Osteoporosis Physical debility Surgical History H/O kyphoplasty H/O thyroidectomy H/O tubal ligation Hx of appendectomy Family History Other No significant family history Social History Smoking Status: Unknown if ever smoked second hand exposure: No alcohol intake: never counseling provided: none substance use type: denies use current occupational status: disabled Travel in the last 8 weeks: None household members: spouse housing: house lives independently: No marital status: number of children: 2 current occupational exposures/hazards: No caffeine: Yes PM Subjective & Objective Subjective Subjective:: Patient is a pleasant 64-year-old female who presents today for follow-up. She does rate her pain a 7 out of 10. She does state that she has not had any new injuries or trauma however continues to have the chronic pain across her back and into her hips. Patient states she still has a lot of difficulty turning [id number] on her own. Patient does state that the physical therapy order that was sent over to [facility] was unable to be completed. She states that they just are not able to do physical therapy and she is unsure whether or not if it is because they are having problems getting people to even work they are. Patient does still complain that she still feels a lot of weakness in her legs. Patient does also state that she has been having a lot of issues with her suprapubic catheter and is waiting to hear from the doctor that did the last procedure. Patient did previously have SI injections in the past that did help however did not provide a full 3 months relief. Her Claus has been reviewed and is appropriate. Review of Systems: General: No recent weight changes, no fever, no sleep disturbances Respiratory: No cough, no shortness of air, no recurring pulmonary infections Cardiovascular/peripheral vascular: No chest pain, no palpitations, no edema, no shortness of breath Gastrointestinal: No new onset incontinence, normal bowel movements reported Genitourinary: No new onset incontinence Musculoskeletal: Low back pain, right hip pain, bilateral leg weakness Psychiatric: [Normal mood/affect] Neurological: [Denies weakness in extremities], [denies balance issues] Pain at rest (0-10 scale): 7 Objective Objective:: Physical Exam: General: Alert and oriented x3, no acute distress, pleasant and cooperative Lungs: Respirations even and unlabored, symmetrical chest expansion Eyes: PERRL Musculoskeletal: Flexion and extension of lumbar [spine] somewhat guarded secondary to pain, [antalgic gait noted] point tenderness along bilateral SIs Neurological: Speech clear, no gross sensory deficit Has patient had previous pain injection?: No Conservative treatment options previously tried: Home exercise plan Length of treatment: Longer than 12 weeks Meds Home Medications and Allergies Home Medications ?Medication ?Instructions ?Recorded ?Confirmed ?Type cyanocobalamin (vitamin B-12) 1,000 mcg IM MONTHLY Supplement 11/04/18 07/01/24 History 1,000 mcg/mL injection solution linaclotide 72 mcg capsule 72 mcg PO DAILY IBS 11/04/18 07/01/24 History (Linzess) cholecalciferol (vitamin D3) 50 2,000 unit PO DAILY Supplement 10/11/19 07/01/24 History mcg (2,000 unit) tablet levothyroxine 200 mcg tablet 200 mcg PO DAILY THYROID 02/14/23 07/01/24 History omeprazole 40 mg capsule,delayed 40 mg PO DAILY Acid reflux 02/14/23 07/01/24 History release gabapentin 100 mg capsule 100 mg PO BID neuropathy 02/15/23 07/01/24 History lorazepam 0.5 mg tablet (Ativan) 0.5 mg PO BID PRN anxiety #60 tabs 02/26/23 07/01/24 Rx sertraline 100 mg tablet 200 mg (2 x 100 mg) PO DAILY mood 02/26/23 07/01/24 Rx #60 tabs hydrocodone 5 mg-acetaminophen 325 1 tab PO Q6H PRN pain 3 days #12 01/03/24 07/01/24 Rx mg tablet tabs New Prescriptions to Start Prescriptions: Allergies Allergy/AdvReac Type Severity Reaction Status Date / Time metoclopramide (From REGLAN) Allergy Mild I-RASH Verified 05/11/24 09:22 Sulfa (Sulfonamide Allergy Mild I-RASH Verified 05/11/24 09:22 Antibiotics) (SULFA (SULFONAMIDE ANTIBIOTICS)) morphine Allergy Vomiting Verified 05/11/24 09:22 Assessment and Plan *Assessment and plan (1) Lumbar radiculopathy: Status: Acute Category: Medical Code(s): M54.16 - Radiculopathy, lumbar region (2) Degenerative disc disease, lumbar: Status: Acute Category: Medical Code(s): M51.36 - Other intervertebral disc degeneration, lumbar region Plan I did discuss with the patient due to her continued weakness in her legs and the fact that the long-term is not able to do physical therapy there that I would like to order it to be done here at the hospital. Patient agrees with this plan of care. We did also discuss in future that she may benefit from additional injection therapy and we will follow-up with this at future appointments. Patient did make mention that she had a scan done in May at from her urologist and is still never heard any updates on this. Patient and spouse are requesting if we can get a copy of this. I did discuss with her that I will do my best to see if we can get a copy however we have had trouble in the past getting records from . Patient was counseled that I would recommend she call the provider that did order the initial imaging. Patient agrees with this plan of care. Patient will return to clinic in 6 weeks for reevaluation of symptoms and plan of care. Patient has been instructed to contact the clinic with any concerns before the next appointment. Dr. Robledo has reviewed this note and agrees with this plan of care. This note was dictated using voice recognition software and make contain errors or omissions. All injections are used with Lidocaine or Bupivacaine and Depo Medrol.
[2024-08-11 15:01] VITALS: BP 113/67; PULSE 91; RESP 14; O2SAT 95; BMI 20.5
== END 2024-08-11 23:59 | disposition home or self-care (01) ==
LOC: SC.PAIN 13:07
PROVIDERS: PCP Internal Medicine Adolescent Medicine; Visit Provider Nurse Practitioner Family
DX: M51.16 Intervertebral disc disorders with radiculopathy, lumbar region (principal)
CPT/HCPCS: 99212; G0463

== ENCOUNTER 2024-08-31 18:26 | Emergency (ER) | payer MEDICARE, MEDICAID, SELFPAY ==
[2024-08-31] VITALS (11 sets, daily range): BP systolic 104–155; BP diastolic 70–88; PULSE 87–105; RESP 16; TEMP 37; O2SAT 96–99; BMI 20.5
--- NOTE | 2024-08-31 18:36 | PC.NURSE ---
bladder scanned showed 281
--- NOTE | 2024-08-31 18:46 | ED_ITS ---
Discharge Plan Disposition Patient Disposition: Xfer SNF Condition: Good Prescriptions Prescriptions: No Action cyanocobalamin (vitamin B-12) 1,000 mcg/mL solution 1,000 mcg IM MONTHLY Linzess 72 mcg capsule 72 mcg PO DAILY cholecalciferol (vitamin D3) 50 mcg (2,000 unit) tablet 2,000 unit PO DAILY sertraline 100 mg tablet 200 mg PO DAILY Qty: 60 2RF lorazepam [Ativan] 0.5 mg tablet 0.5 mg PO BID PRN (Reason: anxiety) Qty: 60 1RF omeprazole 40 mg capsule,delayed release(DR/EC) 40 mg PO DAILY Patient Comments: TAKE 1 CAPSULE BY MOUTH ONCE DAILY levothyroxine 200 mcg tablet 200 mcg PO DAILY Patient Comments: TAKE 1 TABLET BY MOUTH ONCE DAILY gabapentin 100 mg Capsule 100 mg PO BID hydrocodone-acetaminophen 5-325 mg tablet 1 tab PO Q6H PRN (Reason: pain) 3 Days Qty: 12 0RF Referrals Follow up/Referrals: Luis Henderson MD [Primary Care Provider] - See instructions Activity Restrictions/Add. Instructions Additional Instructions/Restrictions: You were evaluated in the emergency department today. We sent a urine culture to rule out infection. This is pending. At this time, we are not prescribing antibiotics but we will call you if anything comes back positive. Please follow-up very closely with your primary care provider as well as your urologist. Return to the emergency department for new or worsening symptoms. Clinical Impressions Clinical Impression: Encounter for suprapubic catheter care Instructions Patient Instructions: How to Care for a Suprapubic Catheter Print Language Print Language: Ethiopian Discharge ED Provider: Sallie Cervantes General Adult HPI <Sallie Cervantes DO - Last Filed: 08/31/24 23:01> General Chief complaint: Urogenital-Female Stated complaint: urinary catheter accidentally removed Time Seen by Provider: 08/31/24 18:27 Mode of Arrival: EMS Source of Information: Patient and EMS Limitations: No Limitations Description of Symptoms (Recalled from ER Triage Doc. by RN): Pt is a resident of [facility], however, she was at home with family today when her urinary catheter was accidentally removed. Kaylene attempted to reinsert a catheter but was unsuccessful. pt is here for urinary catheter insertion. History of Present Illness HPI narrative: This patient is a 64-year-old female with a history of cerebral palsy who resides at [facility], neurogenic bladder with suprapubic catheter placed in April at [facility] presenting to the emergency department for evaluation with concern for dislodgment of her suprapubic catheter. They note the last emptied last night and noted today around 4:00 PM when they went to clean her up after an accident that she did not have her suprapubic catheter in anymore. Patient states that she does not feel very well but has no specific complaints. Nothing out of the ordinary lately. [facility] attempted to reinsert the catheter but was unsuccessful. Patient was sent here for assessment by EMS. EMS notes she was stable en route with reassuring vital signs. Patient denies any concerns or complaints at this time. Related Data Home Medications ?Medication ?Instructions ?Recorded ?Confirmed cyanocobalamin (vitamin B-12) 1,000 mcg IM MONTHLY Supplement 11/04/18 08/11/24 1,000 mcg/mL injection solution linaclotide 72 mcg capsule 72 mcg PO DAILY IBS 11/04/18 08/11/24 (Linzess) cholecalciferol (vitamin D3) 50 2,000 unit PO DAILY Supplement 10/11/19 08/11/24 mcg (2,000 unit) tablet levothyroxine 200 mcg tablet 200 mcg PO DAILY THYROID 02/14/23 08/11/24 omeprazole 40 mg capsule,delayed 40 mg PO DAILY Acid reflux 02/14/23 08/11/24 release gabapentin 100 mg capsule 100 mg PO BID neuropathy 02/15/23 08/11/24 Previous Rx's ?Medication ?Instructions ?Recorded lorazepam 0.5 mg tablet (Ativan) 0.5 mg PO BID PRN anxiety #60 tabs 02/26/23 sertraline 100 mg tablet 200 mg (2 x 100 mg) PO DAILY mood 02/26/23 #60 tabs hydrocodone 5 mg-acetaminophen 325 1 tab PO Q6H PRN pain 3 days #12 01/03/24 mg tablet tabs Allergies Allergy/AdvReac Type Severity Reaction Status Date / Time metoclopramide (From REGLAN) Allergy Mild I-RASH Verified 08/31/24 18:32 Sulfa (Sulfonamide Allergy Mild I-RASH Verified 08/31/24 18:32 Antibiotics) (SULFA (SULFONAMIDE ANTIBIOTICS)) morphine Allergy Vomiting Verified 08/31/24 18:32 PFSH <Sallie Cervantes DO - Last Filed: 08/31/24 23:01> [facility] Disclaimer: The information contained in this section may have been updated after the patient was seen, as this information can be updated by other users. Medical History Physical debility Neurogenic bladder Generalized anxiety disorder New onset seizure Osteoporosis History of hypertension Hyperlipidemia GERD (gastroesophageal reflux disease) Depression Surgical History H/O kyphoplasty H/O tubal ligation H/O thyroidectomy Hx of appendectomy Family History Other No significant family history Social History Smoking Status: Never smoker second hand exposure: No alcohol intake: never counseling provided: none substance use type: denies use current occupational status: other Travel in the last 8 weeks: None household members: spouse housing: house lives independently: No marital status: number of children: 2 current occupational exposures/hazards: No caffeine: Yes Have you lived/traveled outside [place] in past 30 days?: No Contact w/someone who lives/traveled outside US past 30 days?: No Exposure to someone with infectious disease in past 14 days?: No Do you have a fever (greater than 100.4 F or 38 C)?: No Have you tested positive for COVID-19: No Exposed to someone with COVID-19 in past 14 days?: No Do you have a sore throat?: No Do you have a cough?: No Do you have any weakness?: No Do you have any diarrhea?: No Are you experiencing any unusual bleeding?: No Do you have any muscle aches/pain?: No Do you have any abdominal pain?: No Are you experiencing loss of taste or smell?: No Other Medical History Have you received the Flu Vaccine for this season: Yes Have you received the Pneumonia Vaccine: No <Sallie Cervantes DO - Last Filed: 08/31/24 23:01> ROS Obtained: Yes All systems reviewed & no additional complaints except as documented Physical Exam <Sallie Cervantes DO - Last Filed: 08/31/24 23:01> General General appearance: alert and in no apparent distress Head Head exam: atraumatic and normocephalic Eye Eye exam: Present normal appearance, PERRL and EOMI ENT ENT exam: Present normal exam, normal oropharynx, mucous membranes moist and normal external ear exam Neck Neck exam: Present normal inspection, full ROM and trachea midline; Absent tenderness Chest Chest inspection: Present normal inspection and symmetric chest wall rise; Absent tenderness Respiratory Respiratory exam: Present normal lung sounds bilaterally; Absent respiratory distress, wheezes, stridor or accessory muscle use Cardiovascular Cardiovascular exam: Present regular rate and normal rhythm Abdominal Exam Abdominal exam: Present soft and distention (Mild suprapubic fullness); Absent tenderness or guarding Comment: Tract from suprapubic catheter appears to be intact with no blood or drainage. Extremities Exam Extremities exam: Present normal inspection, full ROM and normal capillary refill; Absent tenderness or edema Back Exam Back exam: Present normal inspection and full ROM; Absent tenderness Neurological Exam Neurological exam: Present alert, oriented X3, CN II-XII intact and other (At her neurologic baseline); Absent motor sensory deficit Psychiatric Psychiatric exam: Present normal affect and normal mood Skin Skin exam: Present warm and dry Medical Decision Making <Sallie Cervantes, DO - Last Filed: 08/31/24 23:01> Medical Records Medical records reviewed: Yes I reviewed the patient's medical records. Screening: Per USPSTF and CDC recommendations, given the prevalence of disease in our region, it is our hospital?s policy to screen for HIV and viral Hepatitis for all patients aged 18 and over and those with ongoing risk factors. Claus Inquiry Pt receiving controlled substance: No Vital Signs: 08/31/24 18:26 08/31/24 18:59 Temperature 98.6 F Temperature Source Oral Pulse Rate 87 Pulse Rate [Left] 93 H Respiratory Rate 16 Blood Pressure 151/81 H Blood Pressure [Right Arm] 143/87 H Blood Pressure Mean [Right Arm] 105 Blood Pressure Source [Right Arm] Automatic Cuff Blood Pressure Position [Right Arm] Sitting 02 Sat by Pulse Oximetry 96 99 Oxygen Delivery Method Room Air Room Air Lab Data Lab results reviewed: Yes I reviewed the patient's lab results. Lab Results 08/31/24 18:53: Urine Color Yellow, Urine Appearance Clear, Urine pH 7.5, Ur Specific Parrish 1.025, Urine Protein 2+ A, Urine Glucose (UA) Negative, Urine Ketones Negative, Urine Blood 2+ A, Urine Nitrate Negative, Urine Bilirubin 1+ A , Urine Urobilinogen 1.0, Ur Leukocyte Esterase 2+ A, Urine RBC 5-10, Urine WBC 3-5, Ur Squamous Epith Cells 3-5, Urine Bacteria Trace 08/31/24 19:28: WBC 4.9, RBC 4.67, Hgb 12.0 L, Hct 38.0, MCV 81.4, MCH 25.7 L, M CHC 31.6 L, RDW 14.9, Plt Count 172, MPV 9.9, Neut % (Auto) 69.6, Lymph % (Auto) 20.1, Gentry % (Auto) 6.5, Eos % (Auto) 2.2, Baso % (Auto) 0.6, Neut # (Auto) 3.4, Lymph # (Auto) 1.0, Gentry # (Auto) 0.3, Eos # (Auto) 0.1, Baso # (Auto) 0.0, Sodium 137, Potassium 3.8, Chloride 104, Carbon Dioxide 27, Anion Gap 9.8, BUN 18 H, Creatinine 0.40 L, Estimated Creat Clear 50, Estimated GFR 160, Est GFR ( Amer) 193, Glucose 98, Calcium 8.9, Total Bilirubin 0.6, AST 27, ALT 15, Alkaline Phosphatase 87, Total Protein 6.8, Albumin 3.8, Globulin 3.0, Albumin/Globulin Ratio 1.3 08/31/24 20:23: SARS-CoV-2 (PCR) Not detected, Influenza A Untype (PCR) Not detected, Influenza Type B (PCR) Not detected 08/31/24 19:28 08/31/24 19:28 Orders (Tests/Meds): ED MEDICATIONS Discontinued Medications Generic Name Dose Route Start Last Admin Trade Name Freq PRN Reason Stop Dose Admin Acetaminophen 1,000 mg 08/31/24 20:22 08/31/24 20:39 Acetaminophen 500mg Tab PO 08/31/24 20:23 1,000 mg ONCE ONE Administration Ketorolac Tromethamine 15 mg 08/31/24 20:22 08/31/24 20:38 Ketorolac 30mg/Ml Vial IV 08/31/24 20:23 Not Given ONCE ONE Ketorolac Tromethamine 30 mg 08/31/24 20:37 08/31/24 20:40 Ketorolac 30mg/Ml Vial IM 08/31/24 20:38 30 mg ONCE ONE Administration ORDERS Category Date Time Status Complete Blood Count Auto Diff Stat Lab 08/31/24 19:28 Completed Comprehensive Metabolic Panel Stat Lab 08/31/24 19:28 Completed Rapid PCR Covid and Flu A/B Stat Lab 08/31/24 20:23 Completed UA [Urinalysis and Microscopic] Stat Lab 08/31/24 18:53 Completed Urine Culture Stat Micro 08/31/24 18:28 Received Medical Decision Narrative: In summary, this patient is a 64-year-old female presenting to the Emergency Department for evaluation of placement of suprapubic catheter. Differential diagnoses considered include but are not limited to displaced catheter, close suprapubic tract, acute urinary retention, urinary tract infection, MALIA. Ruling out the most morbid conditions drove assessment. It should be noted patient's history includes CP with neurogenic bladder with suprapubic catheter in place as well as hypertension and hyperlipidemia which may or may not be at goal therapy. This complicates all aspects of care by increasing patient's risk for morbidity. I reviewed patient's past medical records and noted previous evaluation for bladder distention with neurogenic bladder back in April here in the emergency department. On exam, the patient is lying in bed in no acute distress with reassuring vital signs and cardiac telemetry. She denies any specific concerns or complaints at this time and states she is otherwise feeling fine. She has some mild suprapubic distention/fullness but no abdominal tenderness. Surendra PRATT replaced suprapubic catheter with no significant issue. Patient had return of clear yellow urine with no blood. No significant resistance met. Abdominal exam remains benign with no concerns or complaints on reassessment. Basic lab evaluation and urinalysis sent. Labs are reassuring with no MALIA. Urine is slightly contaminated with squamous cells but otherwise is not grossly concerning for infection. Urine culture was sent and is pending. Patient states that she is having some bodyaches. For this, I gave her Tylenol and Toradol and also sent a viral swab. I am not concerned that she has a bacterial infection based on reassuring workup and exam. Ultimately, she was deemed to be appropriate for discharge back to her nursing facility with urine culture sent and pending. She was here waiting for EMS transport for prolonged period of time here in the ED, but ultimately was transported back in stable condition. <TERENCE Torres - Last Filed: 08/31/24 19:40> Vital Signs: 08/31/24 18:26 08/31/24 18:59 Temperature 98.6 F Temperature Source Oral Pulse Rate 87 Pulse Rate [Left] 93 H Respiratory Rate 16 Blood Pressure 151/81 H Blood Pressure [Right Arm] 143/87 H Blood Pressure Mean [Right Arm] 105 Blood Pressure Source [Right Arm] Automatic Cuff Blood Pressure Position [Right Arm] Sitting 02 Sat by Pulse Oximetry 96 99 Oxygen Delivery Method Room Air Room Air Lab Data Lab Results 08/31/24 18:53: Urine Color Yellow, Urine Appearance Clear, Urine pH 7.5, Ur Specific Parrish 1.025, Urine Protein 2+ A, Urine Glucose (UA) Negative, Urine Ketones Negative, Urine Blood 2+ A, Urine Nitrate Negative, Urine Bilirubin 1+ A , Urine Urobilinogen 1.0, Ur Leukocyte Esterase 2+ A, Urine RBC 5-10, Urine WBC 3-5, Ur Squamous Epith Cells 3-5, Urine Bacteria Trace 08/31/24 19:28: WBC 4.9, RBC 4.67, Hgb 12.0 L, Hct 38.0, MCV 81.4, MCH 25.7 L, M CHC 31.6 L, RDW 14.9, Plt Count 172, MPV 9.9, Neut % (Auto) 69.6, Lymph % (Auto) 20.1, Gentry % (Auto) 6.5, Eos % (Auto) 2.2, Baso % (Auto) 0.6, Neut # (Auto) 3.4, Lymph # (Auto) 1.0, Gentry # (Auto) 0.3, Eos # (Auto) 0.1, Baso # (Auto) 0.0, Sodium 137, Potassium 3.8, Chloride 104, Carbon Dioxide 27, Anion Gap 9.8, BUN 18 H, Creatinine 0.40 L, Estimated Creat Clear 50, Estimated GFR 160, Est GFR ( Amer) 193, Glucose 98, Calcium 8.9, Total Bilirubin 0.6, AST 27, ALT 15, Alkaline Phosphatase 87, Total Protein 6.8, Albumin 3.8, Globulin 3.0, Albumin/Globulin Ratio 1.3 08/31/24 20:23: SARS-CoV-2 (PCR) Not detected, Influenza A Untype (PCR) Not detected, Influenza Type B (PCR) Not detected Orders (Tests/Meds): ED MEDICATIONS Discontinued Medications Generic Name Dose Route Start Last Admin Trade Name Otoniel PRN Reason Stop Dose Admin Acetaminophen 1,000 mg 08/31/24 20:22 08/31/24 20:39 Acetaminophen 500mg Tab PO 08/31/24 20:23 1,000 mg ONCE ONE Administration Ketorolac Tromethamine 15 mg 08/31/24 20:22 08/31/24 20:38 Ketorolac 30mg/Ml Vial IV 08/31/24 20:23 Not Given ONCE ONE Ketorolac Tromethamine 30 mg 08/31/24 20:37 08/31/24 20:40 Ketorolac 30mg/Ml Vial IM 08/31/24 20:38 30 mg ONCE ONE Administration ORDERS Category Date Time Status Complete Blood Count Auto Diff Stat Lab 08/31/24 19:28 Completed Comprehensive Metabolic Panel Stat Lab 08/31/24 19:28 Completed Rapid PCR Covid and Flu A/B Stat Lab 08/31/24 20:23 Completed UA [Urinalysis and Microscopic] Stat Lab 08/31/24 18:53 Completed Urine Culture Stat Micro 08/31/24 18:28 Received Procedures <TERENCE Torres - Last Filed: 08/31/24 19:40> Catheter Insertion (Urinary) Patient has the following: other (Pubic catheter) Prophylactic Antibiotics Given: No Bladder Scan/US before Catheterization: Yes Estimated amount of urine (mL): 300 Preparation: Povidone-Iodine Type of Catheter Inserted: 2 way, Gastelum and silastic Catheter Upper Sorbian Size: 18 Catheter balloon size (mL): 10 Topical Anesthesia Used: No Results: successfully catheterized-immediate flow and urine sent for UA/ C&S Patient Tolerated Procedure: well Complications: none Critical Care <TERENCE Torres - Last Filed: 08/31/24 19:40> Critical Care Time Critical Care Time: No
--- NOTE | 2024-08-31 18:59 | PC.NURSE ---
18 fr jacobs placed suprapubic per Surendra PRATT
[2024-08-31 19:03] LABS: Microscopic, Urine URINE MICROSCOPIC (MICROSCOPIC)
[2024-08-31 19:13] LABS: Appearance,Urine CLEAR (Clear); Blood, Urine 2+ (Negative); Color,Urine YELLOW (Yellow); Glucose,Urine (UA) Negative (Negative); Ketones,Urine Negative (Negative); Leukocyte Esterase,Urine 2+ (Negative); Nitrate,Urine Negative (Negative); PH,Urine 7.5 (5.0-8.5); Protein,Urine 2+ (Negative); Specific Gravity, Urine 1.025 (1.005-1.030)
[2024-08-31 19:46] LABS: Basophils % 0.6 % (0.1-2.0); Eosinophils # 0.1 K/mm3 (0.0-0.4); Eosinophils % 2.2 % (0.1-12.0); Lymphocytes % 20.1 % (10-50); Mean Corpuscular HGB Conc 31.6 g/dL (31.8-35.4); Mean Corpuscular Hemoglobin 25.7 pg (27.0-31.2); Mean Corpuscular Volume 81.4 fl (81-99); Mean Platelet Volume 9.9 fl (7.4-10.4); Monocytes # 0.3 K/mm3 (0.1-1.0); Monocytes % 6.5 % (1.7-9.3); Neutrophils # 3.4 K/mm3 (1.8-7.8); Neutrophils % 69.6 % (37.0-80.0); Platelet Count 172 K/mm3 (142-424); Red Blood Count 4.67 M/mm3 (4.20-5.40); Red Cell Distribution Width 14.9 % (11.5-17.5); White Blood Count 4.9 K/mm3 (4.8-10.8)
[2024-08-31 19:52] LABS: Bilirubin,Urine 1+ (Negative)
[2024-08-31 19:53] LABS: Albumin Level 3.8 g/dl (3.5-5.0); Chloride 104 mmol/L (98-107); Potassium 3.8 mmoL/L (3.5-5.1); Sodium 137 mmol/L (136-145)
[2024-08-31 19:53] LABS: Bacteria,Urine Trace /lpf
[2024-08-31 19:56] LABS: Alanine Aminotransferase 15 U/L (12-78); Albumin/Globulin Ratio 1.3 (1.1-1.8); Alkaline Phosphatase 87 U/L (38-126); Anion Gap 9.8 mEq/L (5-15); Aspartate Amino Transferase 27 U/L (14-36); Bilirubin,Total 0.6 mg/dl (0.2-1.3); Blood Urea Nitrogen 18 mg/dl (7-17); Calcium 8.9 mg/dl (8.4-10.2); Carbon Dioxide 27 mmol/L (22.0-30.0); Creatinine Clearance Estimated 50 mL/min (50-200); Estimated Glomerular Filt Rate 160 ml/min (>60); GFR (African American) 193 ML/MIN (>60); Glucose 98 mg/dl (74-100); Total Protein,Serum 6.8 g/dl (6.3-8.2)
[2024-08-31 20:29] LABS: Coronavirus 19, PCR Not Detected (NotDetected); Influenza A, PCR Not Detected (NotDetected); Influenza B, PCR Not Detected (NotDetected)
--- NOTE | 2024-08-31 20:37 | PC.NURSE ---
swab obtained and sent to lab
[2024-08-31] MEDS: ACETAMINOPHEN 500MG TAB 1000 MG PO (20:39)
[2024-08-31] MEDS: KETOROLAC 30MG/ML VIAL 30 MG IM (20:40)
--- NOTE | 2024-08-31 20:59 | PC.NURSE ---
Pt awaiting EMS for transport
[2024-09-01] VITALS: BP 97/61; O2SAT 97
--- NOTE | 2024-09-01 00:11 | PC.NURSE ---
Called report to Jenise GASPAR @ [facility]
[2024-09-01 00:39] VITALS: BP 106/85; PULSE 78; RESP 20; TEMP 36.8; O2SAT 96
--- NOTE | 2024-09-01 00:41 | PC.NURSE ---
Report to Gabrielle GASPAR at [place] [facility]
--- NOTE | 2024-09-05 09:34 | PC.NURSE ---
URINE CULTURE DISCUSSED WITH DR. BOYLE. FEELS SPECIMEN IS CONTAMINATED. NO NEW ORDERS
--- NOTE | 2024-09-05 10:40 | PC.NURSE ---
DR BOYLE NOTIFIED THAT URINE CULTURE IS ESBL +, NO NEW ORDERS
== END 2024-09-01 00:39 ==
PROVIDERS: Emergency Provider Emergency Medicine; PCP Internal Medicine Adolescent Medicine
DX: T83.098A Other mechanical complication of other urinary catheter, initial encounter (principal)
CPT/HCPCS: 51040; 80053; 81001; 85025; 87086; 87088; 87186; 87636; 96372; 99283; J1885

== ENCOUNTER 2024-09-21 14:44 | Emergency (ER) | payer MEDICARE, MEDICAID, SELFPAY ==
[2024-09-21] VITALS (11 sets, daily range): BP systolic 124–161; BP diastolic 76–109; PULSE 66–94; RESP 16–17; TEMP 36.6–37.1; O2SAT 95–98; BMI 21.1
--- NOTE | 2024-09-21 15:08 | PC.NURSE ---
Dr. Cervantes at [facility] for pt eval
--- NOTE | 2024-09-21 15:10 | ED_ITS ---
Discharge Plan Disposition Patient Disposition: Xfer SNF Condition: Good Prescriptions Prescriptions: New Linzess 145 mcg capsule 145 mcg PO DAILY Qty: 30 0RF Discontinued Linzess 72 mcg capsule 72 mcg PO DAILY No Action cyanocobalamin (vitamin B-12) 1,000 mcg/mL solution 1,000 mcg IM MONTHLY cholecalciferol (vitamin D3) 50 mcg (2,000 unit) tablet 2,000 unit PO DAILY sertraline 100 mg tablet 200 mg PO DAILY Qty: 60 2RF lorazepam [Ativan] 0.5 mg tablet 0.5 mg PO BID PRN (Reason: anxiety) Qty: 60 1RF omeprazole 40 mg capsule,delayed release(DR/EC) 40 mg PO DAILY Patient Comments: TAKE 1 CAPSULE BY MOUTH ONCE DAILY levothyroxine 200 mcg tablet 200 mcg PO DAILY Patient Comments: TAKE 1 TABLET BY MOUTH ONCE DAILY gabapentin 100 mg Capsule 100 mg PO BID hydrocodone-acetaminophen 5-325 mg tablet 1 tab PO Q6H PRN (Reason: pain) 3 Days Qty: 12 0RF Referrals Follow up/Referrals: Pablo Diaz II, MD [Staff Physician] - See instructions Provider,MD Baljit [Primary Care Provider] - See instructions Activity Restrictions/Add. Instructions Additional Instructions/Restrictions: You were evaluated in the emergency department today. At this time, the suprapubic catheter is draining okay. We reinflated the balloon. urology is going to contact you to schedule a sooner appointment for catheter exchange, but for now they do not think that the stones are causing issue. They recommended good control of your constipation, as this will help the bladder drain. I recommend aggressive bowel regimen as an outpatient. I am increasing your Linzess. You may also benefit from outpatient referral to gastroenterology for further evaluation and management of this. Dr. Goode with Urology also advised if these things do not help, your doctor may try a bladder medication for spasms such as oxybutynin or myrbetriq. Return to an emergency department for new or worsening symptoms. Clinical Impressions Clinical Impression: Complication, suprapubic catheter obstruction Instructions Patient Instructions: How to Care for a Suprapubic Catheter Print Language Print Language: Bulgarian Discharge ED Provider: Sallie Cervantes General Adult HPI General Chief complaint: Urogenital-Female Stated complaint: CATHETER Time Seen by Provider: 01/14/25 15:02 History of Present Illness HPI narrative: This patient is a 64-year-old female with a history of cerebral palsy who resides at [facility], neurogenic bladder with suprapubic catheter placed in April at [facility] presenting to the emergency department for evaluation with because the nursing facility reportedly could not flush her suprapubic catheter today. She denies any concerns or complaints and states she is doing okay. She states that she was sent here for exchange of the catheter. She is otherwise in her usual state of health. Related Data Home Medications ?Medication ?Instructions ?Recorded ?Confirmed cyanocobalamin (vitamin B-12) 1,000 mcg IM MONTHLY Supplement 11/04/18 08/11/24 1,000 mcg/mL injection solution cholecalciferol (vitamin D3) 50 2,000 unit PO DAILY Supplement 10/11/19 08/11/24 mcg (2,000 unit) tablet levothyroxine 200 mcg tablet 200 mcg PO DAILY THYROID 02/14/23 08/11/24 omeprazole 40 mg capsule,delayed 40 mg PO DAILY Acid reflux 02/14/23 08/11/24 release gabapentin 100 mg capsule 100 mg PO BID neuropathy 02/15/23 08/11/24 Previous Rx's ?Medication ?Instructions ?Recorded lorazepam 0.5 mg tablet (Ativan) 0.5 mg PO BID PRN anxiety #60 tabs 02/26/23 sertraline 100 mg tablet 200 mg (2 x 100 mg) PO DAILY mood 02/26/23 #60 tabs hydrocodone 5 mg-acetaminophen 325 1 tab PO Q6H PRN pain 3 days #12 01/03/24 mg tablet tabs linaclotide 145 mcg capsule 145 mcg PO DAILY #30 caps 09/21/24 (Linzess) Allergies Allergy/AdvReac Type Severity Reaction Status Date / Time metoclopramide (From REGLAN) Allergy Mild I-RASH Verified 08/31/24 18:32 Sulfa (Sulfonamide Allergy Mild I-RASH Verified 08/31/24 18:32 Antibiotics) (SULFA (SULFONAMIDE ANTIBIOTICS)) morphine Allergy Vomiting Verified 08/31/24 18:32 [facility] Disclaimer: The information contained in this section may have been updated after the patient was seen, as this information can be updated by other users. Medical History Physical debility Neurogenic bladder Generalized anxiety disorder New onset seizure Osteoporosis History of hypertension Hyperlipidemia GERD (gastroesophageal reflux disease) Depression Surgical History H/O kyphoplasty H/O tubal ligation H/O thyroidectomy Hx of appendectomy Family History Other No significant family history Social History Smoking Status: Never smoker second hand exposure: No alcohol intake: never counseling provided: none substance use type: denies use current occupational status: other Travel in the last 8 weeks: None household members: spouse housing: house lives independently: No marital status: number of children: 2 current occupational exposures/hazards: No caffeine: Yes Other Medical History Have you received the Flu Vaccine for this season: Yes Have you received the Pneumonia Vaccine: No ROS Obtained: Yes All systems reviewed & no additional complaints except as documented Physical Exam General General appearance: alert and in no apparent distress Head Head exam: atraumatic and normocephalic Eye Eye exam: Present normal appearance, PERRL and EOMI ENT ENT exam: Present normal exam, normal oropharynx, mucous membranes moist and normal external ear exam Neck Neck exam: Present normal inspection, full ROM and trachea midline; Absent tenderness Chest Chest inspection: Present normal inspection and symmetric chest wall rise; Absent tenderness Respiratory Respiratory exam: Present normal lung sounds bilaterally; Absent respiratory distress, wheezes, stridor or accessory muscle use Cardiovascular Cardiovascular exam: Present regular rate and normal rhythm Abdominal Exam Abdominal exam: Present soft; Absent distention, tenderness, guarding or rebound Comment: suprapubic catheter in place with no redness, warmth, abnormal drainage. clear yellow urine in catheter bag Extremities Exam Extremities exam: Present normal inspection, full ROM and normal capillary refill; Absent tenderness or edema Back Exam Back exam: Present normal inspection and full ROM; Absent tenderness Neurological Exam Neurological exam: Present alert, oriented X3 and other (at her neurologic baseline) Psychiatric Psychiatric exam: Present normal affect and normal mood Skin Skin exam: Present warm and dry Medical Decision Making Medical Records Medical records reviewed: Yes I reviewed the patient's medical records. Screening: Per USPSTF and CDC recommendations, given the prevalence of disease in our region, it is our hospital?s policy to screen for HIV and viral Hepatitis for all patients aged 18 and over and those with ongoing risk factors. Claus Inquiry Pt receiving controlled substance: No Vital Signs: 09/21/24 14:44 09/21/24 14:58 09/21/24 15:00 Temperature 98.7 F Temperature Source Oral Pulse Rate 82 66 Pulse Rate [Left Radial] 82 Respiratory Rate 17 Blood Pressure 124/96 H 136/88 Blood Pressure [Right Arm] 124/96 H Blood Pressure Mean Blood Pressure Mean [Right Arm] 105 Blood Pressure Source [Right Arm] Automatic Cuff Blood Pressure Position [Right Arm] Sitting 02 Sat by Pulse Oximetry 98 97 97 Oxygen Delivery Method Room Air Room Air Room Air 09/21/24 15:30 09/21/24 16:00 09/21/24 16:30 Temperature Temperature Source Pulse Rate 91 H 90 76 Pulse Rate [Left Radial] Respiratory Rate Blood Pressure 145/94 H 142/96 H 143/78 H Blood Pressure [Right Arm] Blood Pressure Mean Blood Pressure Mean [Right Arm] Blood Pressure Source [Right Arm] Blood Pressure Position [Right Arm] 02 Sat by Pulse Oximetry 96 95 96 Oxygen Delivery Method Room Air Room Air Room Air 09/21/24 17:00 09/21/24 17:32 09/21/24 18:00 Temperature Temperature Source Pulse Rate 71 69 94 H Pulse Rate [Left Radial] Respiratory Rate Blood Pressure 140/76 152/84 H 161/109 H Blood Pressure [Right Arm] Blood Pressure Mean 97 Blood Pressure Mean [Right Arm] Blood Pressure Source [Right Arm] Blood Pressure Position [Right Arm] 02 Sat by Pulse Oximetry 97 97 97 Oxygen Delivery Method Room Air Room Air Room Air 09/21/24 18:31 Temperature Temperature Source Pulse Rate 90 Pulse Rate [Left Radial] Respiratory Rate Blood Pressure 129/103 H Blood Pressure [Right Arm] Blood Pressure Mean Blood Pressure Mean [Right Arm] Blood Pressure Source [Right Arm] Blood Pressure Position [Right Arm] 02 Sat by Pulse Oximetry 97 Oxygen Delivery Method Room Air Lab Data Lab results reviewed: Yes I reviewed the patient's lab results. Orders (Tests/Meds): ED MEDICATIONS Discontinued Medications Generic Name Dose Route Start Last Admin Trade Name Freq PRN Reason Stop Dose Admin Mineral Oil 133 ml 09/21/24 16:31 09/21/24 16:45 Mineral Oil Enema 133ml RC 09/21/24 16:32 133 ml ONCE ONE Administration Polyethylene Glycol 17 gm 09/21/24 15:53 09/21/24 16:45 Polyethylene Glycol 3350 17 Gm Packet PO 09/21/24 15:54 17 gm ONCE ONE Administration Sennosides 8.6 mg 09/21/24 15:54 09/21/24 16:46 Senna 8.6mg Tablet PO 09/21/24 15:55 8.6 mg ONCE ONE Administration ORDERS Category Date Time Status CT abdomen pelvis wo con Stat Cat Scan 09/21/24 15:31 Completed Medical Decision Narrative: In summary, this patient is a 64-year-old female presenting to the Emergency Department for evaluation of inability to flush her suprapubic catheter at the nursing facility. Differential diagnoses considered include but are not limited to obstruction of suprapubic catheter by sediment, stone, urinary tract infection. Ruling out the most morbid conditions drove assessment. It should be noted patient's history includes neurogenic bladder, cerebral palsy which are not at goal therapy. This complicates all aspects of care by increasing patient's risk for morbidity. I reviewed patient's past medical records and noted previous evaluation back in August by myself for dislodgment of her suprapubic catheter with replacement.. On exam, the patient is well-appearing. She denies any concerns or complaints and states that she is feeling in her usual state of health. She has clear yellow urine in her suprapubic catheter bag. Site looks good. Workup included CT abdomen without IV contrast. I independently interpreted CT scan prior to the radiologist read and noted appropriate placement of suprapubic catheter with significant stool burden. She also has small bladder stones. Please see their read for final interpretation. The nursing facility had deflated her balloon and reportedly attempted to remove it without success. I reinflated the balloon. Catheter is draining appropriately on multiple subsequent reassessments. It is flushing, with only intermittent issues with flushing at this time. I had an interactive discussion with [facility] u[facility] Dr. Goode who recommended that the small bladder stones likely are not obstructing the catheter. They recommended that they will help arrange sooner follow-up outpatient for catheter exchange, as her next appointment is not until November. They recommended better bowel regimen, as stool could be obstructiong. They also stated it may be positional. They stated that if this does not help with her symptoms, she could try an antispasmodic for her bladder like oxybutynin or Myrbetriq. Since the catheter is draining and looks to be in good place, no emergent intervention indicated at this time. I offered patient exchange here, however she understands we do not have urology here so if we failed to replace a new catheter then she would need to be transferred tonight for replacement, and she declines. Given this, we will arrange transport for her back to her nursing facility. She was discharged in stable condition with instructions for catheter care, increase Linzess prescription for bowel regimen, and strict return precautions. Critical Care Critical Care Time Critical Care Time: No
--- NOTE | 2024-09-21 15:31 | CT_ITS ---
FINAL REPORT TECHNIQUE: Noncontrast exam This study was performed with techniques to keep radiation doses as low as reasonably achievable, (ALARA). Individualized dose reduction techniques using automated exposure control or adjustment of mA and/or kV according to the patient''s size were employed. CLINICAL HISTORY: suprapubic catheter not draining COMPARISON: 09/14/2023 FINDINGS: Abdomen: Lung bases are clear. There is mild hepatosplenomegaly. The gallbladder is contracted without stone disease. Pancreas and adrenal glands have a normal CT appearance in their limited unenhanced state. There are tiny nonobstructing bilateral renal calyceal stones. No obvious renal mass is present. No ureteral stones are present. There is no bowel obstruction or wall thickening. Pelvis: No distal ureteral stones are seen. Suprapubic catheter is in good position within the bladder. There are multiple bladder stones measuring 5 mm or less. There is mild fecal impaction of the rectosigmoid colon showing interval improvement with diminished surrounding edema from the prior exam. No fluid collection or adenopathy is seen. IMPRESSION: Suprapubic catheter in good position without significant bladder distention. Multiple small bladder stones. Tiny nonobstructing bilateral renal stones. Improved fecal impaction. Reviewed, Interpreted and Dictated by Pauline Leung MD Transcribed by Linda Jackson Authenticated and [facility]
--- NOTE | 2024-09-21 15:45 | PC.NURSE ---
PT returned from CT
[2024-09-21] MEDS: POLYETHYLENE GLYCOL 3350 17 GM PACKET PO (16:45)
[2024-09-21] MEDS: MINERAL OIL ENEMA 133ML 133 ML RC (16:45)
[2024-09-21] MEDS: SENNA 8.6MG TABLET 8.6 MG PO (16:46)
--- NOTE | 2024-09-21 17:54 | PC.NURSE ---
called for a urology consult.
--- NOTE | 2024-09-21 18:22 | PC.NURSE ---
Dr. Cervantes speaking with [facility]
--- NOTE | 2024-09-21 18:31 | PC.NURSE ---
emptied 500 cc from leg bag
--- NOTE | 2024-09-21 19:14 | PC.NURSE ---
Contacted [facility] regarding a transfer to [facility]. They stated they will be here shortly.
--- NOTE | 2024-09-21 19:18 | PC.NURSE ---
EMS notified for need for transport back to [facility]
--- NOTE | 2024-09-21 19:49 | PC.NURSE ---
rounded on pt. pt voices no needs
== END 2024-09-21 20:56 ==
PROVIDERS: Emergency Provider Emergency Medicine
DX: T83.091A Other mechanical complication of indwelling urethral catheter, initial encounter (principal)
CPT/HCPCS: 74176; 99284

== ENCOUNTER 2024-09-27 05:51 | Observation (INO) | payer MEDICARE, MEDICAID, SELFPAY ==
[2024-09-27] VITALS (10 sets, daily range): BP systolic 102–130; BP diastolic 60–88; PULSE 86–131; RESP 17–30; TEMP 36.6–37.8; O2SAT 87–100; BMI 20.5; BMI 20.8
--- NOTE | 2024-09-27 06:00 | CT_ITS ---
FINAL REPORT TECHNIQUE: The patient was injected with IV contrast. Axial images were obtained through the chest in a PE protocol. 3-D reconstruction images were also performed. Individualized dose reduction techniques using automated exposure control or adjustment of the MA and/or KV according to patient's size were employed. CLINICAL HISTORY: Acute cough, shortness of air, tachycardia COMPARISON: 01/03/2024 FINDINGS: Mediastinal vasculature is adequately opacified. No pulmonary artery filling defects are identified to suggest PE. There is no aortic dissection. There is no axillary adenopathy. There is no hilar or mediastinal adenopathy. The heart size is normal. There is no pericardial or pleural effusion. There is mild consolidation at the lung bases, left greater than right. There is associated atelectasis at the lung bases. IMPRESSION: No pulmonary embolus or dissection. Bibasilar consolidation and atelectasis. Reviewed, Interpreted and Dictated by Sidney Oneil MD Transcribed by Deja Hodges Authenticated and [facility]
--- NOTE | 2024-09-27 06:05 | CT_ITS ---
FINAL REPORT TECHNIQUE: After the administration of oral and intravenous contrast, axial images were obtained through the abdomen and pelvis by computed tomography. The study was performed with techniques to keep radiation dose as low as reasonably achievable, (ALARA). Individual dose reduction techniques using automated exposure control or adjustment of mA and/or kV according to the patient's size were employed. CLINICAL HISTORY: abd wall tenderness with suprapub cath COMPARISON: 09/21/2024 FINDINGS: Abdomen: The liver parenchyma is homogeneous. The liver measures up to 18 cm. The gallbladder is present. The spleen measures up to 16 cm in craniocaudal dimension. The pancreas, adrenals and kidneys appear unremarkable. The aorta is normal in caliber. There is no free fluid or adenopathy. Pelvis: GI tract is without acute abnormality. A suprapubic catheter is noted. There is air in the urinary bladder which is likely iatrogenic. Again noted are multiple stones in the dependent portion of the urinary bladder. There are prominent pelvic veins, particularly on the left which may be related to pelvic venous congestion. A prominent left gonadal vein is noted. There are multiple compression deformities at T11, T12, L2, and L5 with prior kyphoplasty at T11 and T12. IMPRESSION: Splenomegaly. Suprapubic catheter with multiple bladder stones. Pelvic vascular congestion, left greater than right. Vertebral compression deformities as above. Reviewed, Interpreted and Dictated by Sidney Oneil MD Transcribed by Deja Hodges Authenticated and [facility]
[2024-09-27 06:13] LABS: VBG Base Excess -1.6 mmol/L (-2.4-2.3); VBG HCO3 24.2 mmol/L (23-30); VBG Oxygen Saturation 69.1 % (50-70); VBG PCO2 46.1 mmol/L (35-51); VBG PH 7.34 mmol/L (7.31-7.41); VBG PO2 36.6 mmol/L (28-40); VBG Total CO2 25.6 mmol/L (23-27)
--- NOTE | 2024-09-27 06:13 | ECG_ITS ---
APPROVED REPORT Exam: Resting ECG HR:96 bpm ECG Measurements Heart Rate 96 AXES IA 127 P 42 QRSd 118 QRS -12 QT 364 T 44 QTc 418 Conclusion SINUS RHYTHM WITH OCCASIONAL VENTRICULAR PREMATURE COMPLEXES INDETERMINATE AXIS RIGHT BUNDLE BRANCH BLOCK [120+ ms QRS DURATION, UPRIGHT V1, 40+ ms S IN I/aVL/V4/V5/V6] Electronically signed by : CHI MCBRIDE, 09/27/2024 16:35:40
[2024-09-27 06:17] LABS: Sodium 138 mmol/L (136-145)
[2024-09-27 06:19] LABS: Alanine Aminotransferase 14 U/L (12-78); Albumin Level 3.7 g/dl (3.5-5.0); Albumin/Globulin Ratio 1.3 (1.1-1.8); Alkaline Phosphatase 71 U/L (38-126); Anion Gap 9.5 mEq/L (5-15); Aspartate Amino Transferase 25 U/L (14-36); Bilirubin,Total 0.4 mg/dl (0.2-1.3); Blood Urea Nitrogen 19 mg/dl (7-17); Calcium 8.5 mg/dl (8.4-10.2); Carbon Dioxide 27 mmol/L (22.0-30.0); Chloride 105 mmol/L (98-107); Creatinine Clearance Estimated 50 mL/min (50-200); Estimated Glomerular Filt Rate 160 ml/min (>60); GFR (African American) 193 ML/MIN (>60); Globulin 2.9 g/dL (1.3-3.2); Glucose 119 mg/dl (74-100); Potassium 3.5 mmoL/L (3.5-5.1); Total Protein,Serum 6.6 g/dl (6.3-8.2)
[2024-09-27 06:23] LABS: D-Dimer 0.33 ug/mL (0.0-0.5)
[2024-09-27 06:24] LABS: Basophils % 0.3 % (0.1-2.0); Eosinophils # 0.1 K/mm3 (0.0-0.4); Hematocrit 36.9 % (37.0-47.0); Hemoglobin 11.2 g/dL (12.2-16.2); Lymphocytes # 0.7 K/mm3 (0.7-4.5); Lymphocytes % 22.4 % (10-50); Mean Corpuscular HGB Conc 30.4 g/dL (31.8-35.4); Mean Corpuscular Hemoglobin 25.6 pg (27.0-31.2); Mean Corpuscular Volume 84.2 fl (81-99); Mean Platelet Volume 11.5 fl (7.4-10.4); Monocytes # 0.2 K/mm3 (0.1-1.0); Monocytes % 6.3 % (1.7-9.3); Neutrophils # 2.1 K/mm3 (1.8-7.8); Neutrophils % 68.7 % (37.0-80.0); Platelet Count 108 K/mm3 (142-424); Red Blood Count 4.38 M/mm3 (4.20-5.40); Red Cell Distribution Width 15.8 % (11.5-17.5)
[2024-09-27 06:29] LABS: NT Pro Brain Natriuretic Pep. 172 pg/mL (0-125)
--- NOTE | 2024-09-27 06:36 | [facility].EDCP ---
Discharge Plan Disposition Patient Disposition: Admitted Clinical Impressions Clinical Impression: Sepsis, Acute UTI, Human metapneumovirus pneumonia, Acute hypoxic respiratory failure Discharge ED Provider: Richy Gil HPI <Richy Gil MD - Last Filed: 09/27/24 07:00> General Chief Complaint: Shortness of Breath/Dyspnea Stated Complaint: SOA Time Seen by Provider: 09/27/24 06:00 Mode of Arrival: EMS Source of Information: Patient and EMS Limitations: No Limitations Description of Symptoms (Recalled from ER Triage Doc. by RN): Patient reports SOA. States she has had a cough for 5 days and isn't feeling any better. [facility] the [facility] and that it was negative. Patient not normally on O2. History of Present Illness HPI narrative: 64-year-old female with history of cerebral palsy, suprapubic catheter, spinal fracture 2 years ago presents to the ER with complaints of shortness of breath, cough. care home called EMS for patient's symptoms. They are concerned for possible pneumonia, cough, urinary tract infection. Patient reports she has had the cough for the last 5 days and does not seem to be getting any better. She denies fevers or chills. She states she had a chest x-ray during the day yesterday and it was reportedly negative. Patient states she does not know what is going on. EMS reports patient was saturating 87 to 88% on room air when they arrived on scene. Patient was placed on nasal cannula. She has not previously required oxygen support. Patient denies any history of smoking or other lung problems. Patient reports she wants her suprapubic catheter removed because it always causes problems with the last time they had to remove that she had severe pain and they were unable to exchange it. She states the site is tender. She denies fevers, numbness, tingling, weakness, or any other new or associated symptoms. Patient reports her left-sided facial droop is baseline due to her cerebral palsy. Related Data Home Medications ?Medication ?Instructions ?Recorded ?Confirmed cyanocobalamin (vitamin B-12) 1,000 mcg IM MONTHLY 11/04/18 09/27/24 1,000 mcg/mL injection solution cholecalciferol (vitamin D3) 50 25 mcg PO DAILY 10/11/19 09/27/24 mcg (2,000 unit) tablet levothyroxine 200 mcg tablet 200 mcg PO DAILY 02/14/23 09/27/24 omeprazole 40 mg capsule,delayed 40 mg PO DAILY 02/14/23 09/27/24 release acetaminophen 500 mg tablet 1,000 mg PO Q6HP PRN Mild Pain 09/27/24 09/27/24 (Scale Score 1-4) azithromycin 250 mg tablet 250 mg PO DAILY 09/27/24 09/27/24 dantrolene 50 mg capsule 50 mg PO TID 09/27/24 09/27/24 diclofenac sodium 1 % topical gel 1 ea topical Q6HP PRN JOINT PAIN 09/27/24 09/27/24 diphenhydramine HCl 25 mg tablet 25 mg PO TIDP PRN Itching 09/27/24 09/27/24 gabapentin 400 mg capsule 400 mg PO TID 09/27/24 09/27/24 hydrocodone 5 mg-acetaminophen 325 1 tab PO Q6HP PRN Moderate Pain 09/27/24 09/27/24 mg tablet (Scale Score 5-6) lactulose 10 gram/15 mL oral 20 g PO DAILYP PRN Constipation 09/27/24 09/27/24 solution levetiracetam 500 mg tablet 500 mg PO BID 09/27/24 09/27/24 melatonin 3 mg tablet 6 mg PO HS 09/27/24 09/27/24 midodrine 5 mg tablet 5 mg PO BID 09/27/24 09/27/24 multivit with minerals-iron 18 1 tab PO DAILY 09/27/24 09/27/24 mg-folic ac 400 mcg-vit K 25 mcg tablet (Adults Multivitamin) polyethylene glycol 3350 17 17 g PO DAILY 09/27/24 09/27/24 gram/dose oral powder sennosides 8.6 mg-docusate sodium 1 tab PO HS 09/27/24 09/27/24 50 mg tablet (Stimulant Laxative Plus) sertraline 100 mg tablet 150 mg PO DAILY 09/27/24 09/27/24 tizanidine 2 mg capsule 2 mg PO BID 09/27/24 09/27/24 trazodone 50 mg tablet 50 mg PO HS 09/27/24 09/27/24 Previous Rx's ?Medication ?Instructions ?Recorded linaclotide 145 mcg capsule 145 mcg PO DAILY #30 caps 09/21/24 (Linzess) Allergies Allergy/AdvReac Type Severity Reaction Status Date / Time metoclopramide (From REGLAN) Allergy Mild I-RASH Verified 08/31/24 18:32 Sulfa (Sulfonamide Allergy Mild I-RASH Verified 08/31/24 18:32 Antibiotics) (SULFA (SULFONAMIDE ANTIBIOTICS)) morphine Allergy Vomiting Verified 08/31/24 18:32 [facility] <Richy Gil MD - Last Filed: 09/27/24 07:00> [facility] Disclaimer: The information contained in this section may have been updated after the patient was seen, as this information can be updated by other users. Medical History Physical debility Neurogenic bladder Generalized anxiety disorder New onset seizure Osteoporosis History of hypertension Hyperlipidemia GERD (gastroesophageal reflux disease) Depression Surgical History H/O kyphoplasty H/O tubal ligation H/O thyroidectomy Hx of appendectomy Family History Other No significant family history Social History Smoking Status: Never smoker second hand exposure: No alcohol intake: never counseling provided: none substance use type: denies use current occupational status: other Travel in the last 8 weeks: None household members: spouse housing: house lives independently: No marital status: number of children: 2 current occupational exposures/hazards: No caffeine: Yes Have you lived/traveled outside [place] in past 30 days?: No Contact w/someone who lives/traveled outside US past 30 days?: No Exposure to someone with infectious disease in past 14 days?: No Do you have a fever (greater than 100.4 F or 38 C)?: No Have you tested positive for COVID-19: No Exposed to someone with COVID-19 in past 14 days?: No Do you have a sore throat?: No Do you have a cough?: No Do you have any weakness?: No Do you have any diarrhea?: No Are you experiencing any unusual bleeding?: No Do you have any muscle aches/pain?: No Do you have any abdominal pain?: No Are you experiencing loss of taste or smell?: No Other Medical History Have you received the Flu Vaccine for this season: Yes Have you received the Pneumonia Vaccine: No <Richy Gil MD - Last Filed: 09/27/24 07:00> ROS Obtained: Yes Systems reviewed as appropriate & no additional complaints except as documented Per HPI Physical Exam <Richy Gil MD - Last Filed: 09/27/24 07:00> General General appearance: alert and in no apparent distress Head Head exam: atraumatic and normocephalic Eye Eye exam: Present PERRL and EOMI ENT ENT exam: Present mucous membranes moist Neck Neck exam: Present normal inspection and full ROM Chest Chest inspection: Present symmetric chest wall rise Respiratory Respiratory exam: Present other (Saturating 96% on 2 L nasal cannula); Absent normal lung sounds bilaterally (Rhonchi appreciated in right lung loya), respiratory distress, wheezes or stridor Cardiovascular Cardiovascular exam: Present normal rhythm and tachycardia Abdominal Exam Abdominal exam: Present soft, tenderness (Suprapubic tenderness) and other (Suprapubic catheter site erythematous and slightly indurated within 1 cm around the site, malodorous); Absent distention, guarding, rebound or rigidity Extremities Exam Extremities exam: Present full ROM Back Exam Back exam: Absent tenderness Neurological Exam Neurological exam: Present alert and oriented X3; Absent motor sensory deficit (weakness and left facial droop at baseline due to patient's cerebral palsy) Psychiatric Psychiatric exam: Present normal affect and normal mood Skin Skin exam: Present warm and dry HEART Score <Richy Gil MD - Last Filed: 09/27/24 07:00> HEART Score HEART Score assessment performed?: Yes History (anamnesis): Slightly suspicious ECG: Non-specific disturbance Age: >65 years Risk factors: No known risk factors Troponin: </= normal limit HEART Score: 3 <Sallie Cervantes DO - Last Filed: 09/27/24 16:13> HEART Score HEART Score: 3 Critical Care <Richy Gil MD - Last Filed: 09/27/24 07:00> Critical Care Time Critical Care Time: No Medical Decision Making <Richy Gil MD - Last Filed: 09/27/24 07:00> Medical Records Medical records reviewed: Yes I reviewed the patient's medical records. MR Comment: Previous urine cultures reviewed for susceptibilities. Patient has multiple drug resistance, previous pathogen susceptible to meropenem Claus Inquiry Pt receiving controlled substance: No Vital Signs Vital Signs: 09/27/24 05:51 09/27/24 06:30 09/27/24 07:07 Temperature 100.1 F H Temperature Source Temporal Artery Scan Pulse Rate 96 H 131 H Pulse Rate [Right Radial] 104 H Respiratory Rate 18 Blood Pressure 120/69 127/74 Blood Pressure [Right Arm] 120/70 Blood Pressure Mean 91 Blood Pressure Mean [Right Arm] 86 Blood Pressure Source [Right Arm] Automatic Cuff Blood Pressure Position [Right Arm] Supine 02 Sat by Pulse Oximetry 93 L 98 99 Oxygen Delivery Method Room Air Nasal Cannula Oxygen Flow Rate (LPM) 2 09/27/24 07:30 09/27/24 08:00 09/27/24 08:15 Temperature Temperature Source Pulse Rate 91 H 88 90 Pulse Rate [Right Radial] Respiratory Rate 26 H 19 30 H Blood Pressure 102/60 L 129/66 Blood Pressure [Right Arm] Blood Pressure Mean Blood Pressure Mean [Right Arm] Blood Pressure Source [Right Arm] Blood Pressure Position [Right Arm] 02 Sat by Pulse Oximetry 100 99 99 Oxygen Delivery Method Nasal Cannula Nasal Cannula Oxygen Flow Rate (LPM) 2 2 09/27/24 08:30 09/27/24 09:16 09/27/24 10:00 Temperature 98 F Temperature Source Oral Pulse Rate 86 Pulse Rate [Right Radial] 90 Respiratory Rate 17 19 Blood Pressure 113/60 Blood Pressure [Right Arm] 109/63 L Blood Pressure Mean Blood Pressure Mean [Right Arm] 78 Blood Pressure Source [Right Arm] Automatic Cuff Blood Pressure Position [Right Arm] 02 Sat by Pulse Oximetry 100 87 L 92 L Oxygen Delivery Method Room Air Room Air Oxygen Flow Rate (LPM) 09/27/24 10:17 Temperature 98.2 F Temperature Source Pulse Rate 92 H Pulse Rate [Right Radial] Respiratory Rate 20 Blood Pressure 130/88 Blood Pressure [Right Arm] Blood Pressure Mean Blood Pressure Mean [Right Arm] Blood Pressure Source [Right Arm] Blood Pressure Position [Right Arm] 02 Sat by Pulse Oximetry Oxygen Delivery Method Nasal Cannula Oxygen Flow Rate (LPM) 2 Lab Data Labs: Lab Results 09/27/24 05:51: WBC 3.0 L, RBC 4.38, Hgb 11.2 L, Hct 36.9 L, MCV 84.2, MCH 25.6 L, MCHC 30.4 L, RDW 15.8, Plt Count 108 L, MPV 11.5 H, Neut % (Auto) 68.7, Lymph % (Auto) 22.4, [place] % (Auto) 6.3, Eos % (Auto) 2.0, Baso % (Auto) 0.3, Neut # (Auto) 2.1, Lymph # (Auto) 0.7, [place] # (Auto) 0.2, Eos # (Auto) 0.1, Baso # (Auto) 0.0, D-Dimer 0.33, Sodium 138, Potassium 3.5, Chloride 105, Carbon Dioxide 27, Anion Gap 9.5, BUN 19 H, Creatinine 0.40 L, Estimated Creat Clear 50, Estimated GFR 160, Est GFR ( Amer) 193, Glucose 119 H, Calcium 8.5, Total Bilirubin 0.4, AST 25, ALT 14, Alkaline Phosphatase 71, Troponin I < 0.01, NT-Pro-B Natriuret Pep 172 H, Total Protein 6.6, Albumin 3.7, Globulin 2.9, Albumin/Globulin Ratio 1.3, Procalcitonin 0.066 09/27/24 06:07: VBG pH 7.34, VBG pCO2 46.1, VBG pO2 36.6, VBG HCO3 24.2, VBG Total CO2 25.6, VBG O2 Saturation 69.1, VBG Base Excess -1.6, VBG Lactic Acid 1.0 09/27/24 06:30: Lactate 0.8 09/27/24 06:34: Chlamy pneumoniae PCR Not detected, Adenovirus (PCR) Not detected, B. pertussis DNA (PCR) Not detected, Coronavirus OC43 (PCR) Not detected, Coronavirus HKU1 (PCR) Not detected, Coronavirus 229E (PCR) Not detected, SARS-CoV-2 (PCR) Not detected, Coronavirus NL63 (PCR) Not detected, Human Metapneumovir PCR Detected A, Influenza A (H1) PCR Not detected, Influ A (H1N1/09) PCR Not detected, Influenza A (H3) PCR Not detected, Influenza Type A (PCR) Not detected, Influenza Type B (PCR) Not detected, M. pneumoniae (PCR) Not detected, Parainfluenza 1 (PCR) Not detected, Parainfluenza 2 (PCR) Not detected, Parainfluenza 3 (PCR) Not detected, Parainfluenza 4 (PCR) Not detected, RSV (PCR) Not detected, Entero/Rhino (PCR) Not detected 09/27/24 07:08: Urine Color Yellow, Urine Appearance Clear, Urine pH 6.0, Ur Specific [place] >= 1.030, Urine Protein 1+ A, Urine Glucose (UA) Negative, Urine Ketones Negative, Urine Blood Trace-i, Urine Nitrate Positive A, Urine Bilirubin Negative, Urine Urobilinogen 0.2, Ur Leukocyte Esterase 1+ A, Urine RBC 3-5, Urine WBC 10-20, Ur Squamous Epith Cells None, Calcium Oxalate Crystal Trace, Urine Bacteria 4+ 09/27/24 09:22: Troponin I < 0.01 09/27/24 05:51 09/27/24 05:51 Response Orders (Tests/Meds): ED MEDICATIONS Generic Name Dose Route Start Last Admin Trade Name Freq PRN Reason Stop Dose Admin Acetaminophen 650 mg 09/27/24 14:59 09/27/24 15:05 Acetaminophen 325mg Tab PO 10/27/24 14:58 650 mg Q4HP PRN Administration Fever or Mild Pain (1-3) Nitroglycerin 0.4 mg 09/27/24 06:00 Nitroglycerin 0.4mg Sl Tablet SL 09/28/24 06:00 Q5MINP PRN Chest Pain Discontinued Medications Generic Name Dose Route Start Last Admin Trade Name Freq PRN Reason Stop Dose Admin Acetaminophen 1,000 mg 09/27/24 06:59 09/27/24 07:05 Acetaminophen 1,000mg/100ml Vial IV 09/27/24 07:00 1,000 mg ONCE ONE Administration Aspirin 324 mg 09/27/24 06:00 09/27/24 06:43 Aspirin 81mg Chewable Tablet PO 09/27/24 06:01 324 mg ONCE ONE Administration Meropenem 1 gm/ Sodium 100 mls @ 100 mls/hr 09/27/24 06:04 09/27/24 06:53 Chloride IV 09/27/24 06:05 100 mls/hr ONCE ONE Administration Lactated Ringer's 1,700 mls @ 999 mls/hr 09/27/24 06:08 09/27/24 06:42 Lactated Ringer's 1000 Ml Bag IV 09/27/24 07:50 999 mls/hr .Q1H43M ONE Administration Iopamidol 80 ml 09/27/24 06:52 09/27/24 06:54 Iopamidol-370 (76%);100ml Bottle IV 09/27/24 06:53 80 ml ONCE ONE Administration Sodium Chloride 50 ml 09/27/24 06:52 09/27/24 06:53 0.9 % Sodium Chloride 50 Ml Vial IV 09/27/24 06:53 50 ml ONCE ONE Administration Sodium Chloride 10 ml 09/27/24 06:52 09/27/24 06:54 Sodium Chloride 0.9% 10ml Syr (Rad Only) IV 09/27/24 06:53 10 ml ONCE ONE Administration ORDERS Category Date Time Status CT abdomen pelvis w con Stat Cat Scan 09/27/24 06:[address] angio chest PE protocol Stat Cat Scan 09/27/24 06:00 Completed BNP [NT Pro Brain Natriuretic Pep.] Stat Lab 09/27/24 05:51 Completed Complete Blood Count Auto Diff Stat Lab 09/27/24 05:51 Completed Comprehensive Metabolic Panel Stat Lab 09/27/24 05:51 Completed D-Dimer Stat Lab 09/27/24 05:51 Completed Full Resp Panel w/COVID ([facility]) Routine Lab 09/27/24 06:34 Completed Lactic Acid Stat Lab 09/27/24 06:30 Completed Procalcitonin Stat Lab 09/27/24 05:51 Completed Troponin I Q3H Lab 09/27/24 09:22 Completed Troponin I Q3H Lab 09/27/24 12:07 Completed Troponin I Stat Lab 09/27/24 05:51 Completed Urinalysis and Microscopic Stat Lab 09/27/24 07:08 Completed Blood Culture Stat Micro 09/27/24 06:30 Received Urine Culture Stat Micro 09/27/24 07:08 Received VBG [Venous Blood Gas] Stat RT 09/27/24 06:07 Completed MDM Narrative Medical Decision Narrative: In summary, this 64-year-old female with comorbidities described in the HPI presents to the emergency department today with cough, abdominal wall pain. On initial evaluation patient is tachycardic, borderline febrile, requiring oxygen support but not tachypneic, normotensive, abdominal wall tenderness with mild induration and malodorous discharge from the suprapubic site, nonacute abdomen, pulmonary exam with rhonchi in right lung loya remainder of cardiopulmonary exam reassuring, no respiratory distress, neuroexam at baseline. Differential diagnosis includes but is not limited to sepsis, ACS, PE, pneumonia, viral syndrome, urinary tract infection, abdominal wall infection, abscess, fistula, bacteremia, fluid overload, among others. Based on these concerns, I ordered serum labs, cardiac workup, CTA PE, urine studies, CT abdomen pelvis. ECG personally interpreted demonstrates sinus rhythm with occasional PVC, rate 96, normal axis, normal VA and QTc, RBBB, no STEMI. Patient received sepsis bolus of IV fluids, meropenem based on previous urine cultures for treatment. Labs personally reviewed demonstrate leukopenia WBC 3.0, anemia hemoglobin 11.2, patient does not have neutropenia, thrombocytopenia with platelets 108 is new compared to August, D-dimer normal reassuring against PE, VBG with normal pH, normal pCO2,, normal lactic on VBG, prerenal azotemia present, patient already receiving IV fluids, no actionable electrolyte abnormalities, nasal troponin undetectably low less than 0.01, patient's BNP slightly elevated at 172, not specifically actionable at this time since patient does not exhibit other signs of clinical fluid overload. CT imaging pending at the time of physician shift change. Urine studies, viral swab pending. Patient handed off to Dr. Cervantes in stable condition pending imaging, remaining laboratory workup. <Sallie Cervantes, DO - Last Filed: 09/27/24 16:13> Vital Signs Vital Signs: 09/27/24 05:51 09/27/24 06:30 09/27/24 07:07 Temperature 100.1 F H Temperature Source Temporal Artery Scan Pulse Rate 96 H 131 H Pulse Rate [Right Radial] 104 H Respiratory Rate 18 Blood Pressure 120/69 127/74 Blood Pressure [Right Arm] 120/70 Blood Pressure Mean 91 Blood Pressure Mean [Right Arm] 86 Blood Pressure Source [Right Arm] Automatic Cuff Blood Pressure Position [Right Arm] Supine 02 Sat by Pulse Oximetry 93 L 98 99 Oxygen Delivery Method Room Air Nasal Cannula Oxygen Flow Rate (LPM) 2 09/27/24 07:30 09/27/24 08:00 09/27/24 08:15 Temperature Temperature Source Pulse Rate 91 H 88 90 Pulse Rate [Right Radial] Respiratory Rate 26 H 19 30 H Blood Pressure 102/60 L 129/66 Blood Pressure [Right Arm] Blood Pressure Mean Blood Pressure Mean [Right Arm] Blood Pressure Source [Right Arm] Blood Pressure Position [Right Arm] 02 Sat by Pulse Oximetry 100 99 99 Oxygen Delivery Method Nasal Cannula Nasal Cannula Oxygen Flow Rate (LPM) 2 2 09/27/24 08:30 09/27/24 09:16 09/27/24 10:00 Temperature 98 F Temperature Source Oral Pulse Rate 86 Pulse Rate [Right Radial] 90 Respiratory Rate 17 19 Blood Pressure 113/60 Blood Pressure [Right Arm] 109/63 L Blood Pressure Mean Blood Pressure Mean [Right Arm] 78 Blood Pressure Source [Right Arm] Automatic Cuff Blood Pressure Position [Right Arm] 02 Sat by Pulse Oximetry 100 87 L 92 L Oxygen Delivery Method Room Air Room Air Oxygen Flow Rate (LPM) 09/27/24 10:17 Temperature 98.2 F Temperature Source Pulse Rate 92 H Pulse Rate [Right Radial] Respiratory Rate 20 Blood Pressure 130/88 Blood Pressure [Right Arm] Blood Pressure Mean Blood Pressure Mean [Right Arm] Blood Pressure Source [Right Arm] Blood Pressure Position [Right Arm] 02 Sat by Pulse Oximetry Oxygen Delivery Method Nasal Cannula Oxygen Flow Rate (LPM) 2 Lab Data Labs: Lab Results 09/27/24 05:51: WBC 3.0 L, RBC 4.38, Hgb 11.2 L, Hct 36.9 L, MCV 84.2, MCH 25.6 L, MCHC 30.4 L, RDW 15.8, Plt Count 108 L, MPV 11.5 H, Neut % (Auto) 68.7, Lymph % (Auto) 22.4, [place] % (Auto) 6.3, Eos % (Auto) 2.0, Baso % (Auto) 0.3, Neut # (Auto) 2.1, Lymph # (Auto) 0.7, [place] # (Auto) 0.2, Eos # (Auto) 0.1, Baso # (Auto) 0.0, D-Dimer 0.33, Sodium 138, Potassium 3.5, Chloride 105, Carbon Dioxide 27, Anion Gap 9.5, BUN 19 H, Creatinine 0.40 L, Estimated Creat Clear 50, Estimated GFR 160, Est GFR ( Amer) 193, Glucose 119 H, Calcium 8.5, Total Bilirubin 0.4, AST 25, ALT 14, Alkaline Phosphatase 71, Troponin I < 0.01, NT-Pro-B Natriuret Pep 172 H, Total Protein 6.6, Albumin 3.7, Globulin 2.9, Albumin/Globulin Ratio 1.3, Procalcitonin 0.066 09/27/24 06:07: VBG pH 7.34, VBG pCO2 46.1, VBG pO2 36.6, VBG HCO3 24.2, VBG Total CO2 25.6, VBG O2 Saturation 69.1, VBG Base Excess -1.6, VBG Lactic Acid 1.0 09/27/24 06:30: Lactate 0.8 09/27/24 06:34: Chlamy pneumoniae PCR Not detected, Adenovirus (PCR) Not detected, B. pertussis DNA (PCR) Not detected, Coronavirus OC43 (PCR) Not detected, Coronavirus HKU1 (PCR) Not detected, Coronavirus 229E (PCR) Not detected, SARS-CoV-2 (PCR) Not detected, Coronavirus NL63 (PCR) Not detected, Human Metapneumovir PCR Detected A, Influenza A (H1) PCR Not detected, Influ A (H1N1/09) PCR Not detected, Influenza A (H3) PCR Not detected, Influenza Type A (PCR) Not detected, Influenza Type B (PCR) Not detected, M. pneumoniae (PCR) Not detected, Parainfluenza 1 (PCR) Not detected, Parainfluenza 2 (PCR) Not detected, Parainfluenza 3 (PCR) Not detected, Parainfluenza 4 (PCR) Not detected, RSV (PCR) Not detected, Entero/Rhino (PCR) Not detected 09/27/24 07:08: Urine Color Yellow, Urine Appearance Clear, Urine pH 6.0, Ur Specific [place] >= 1.030, Urine Protein 1+ A, Urine Glucose (UA) Negative, Urine Ketones Negative, Urine Blood Trace-i, Urine Nitrate Positive A, Urine Bilirubin Negative, Urine Urobilinogen 0.2, Ur Leukocyte Esterase 1+ A, Urine RBC 3-5, Urine WBC 10-20, Ur Squamous Epith Cells None, Calcium Oxalate Crystal Trace, Urine Bacteria 4+ 09/27/24 09:22: Troponin I < 0.01 Response Orders (Tests/Meds): ED MEDICATIONS Generic Name Dose Route Start Last Admin Trade Name Freq PRN Reason Stop Dose Admin Acetaminophen 650 mg 09/27/24 14:59 09/27/24 15:05 Acetaminophen 325mg Tab PO 10/27/24 14:58 650 mg Q4HP PRN Administration Fever or Mild Pain (1-3) Nitroglycerin 0.4 mg 09/27/24 06:00 Nitroglycerin 0.4mg Sl Tablet SL 09/28/24 06:00 Q5MINP PRN Chest Pain Discontinued Medications Generic Name Dose Route Start Last Admin Trade Name Freq PRN Reason Stop Dose Admin Acetaminophen 1,000 mg 09/27/24 06:59 09/27/24 07:05 Acetaminophen 1,000mg/100ml Vial IV 09/27/24 07:00 1,000 mg ONCE ONE Administration Aspirin 324 mg 09/27/24 06:00 09/27/24 06:43 Aspirin 81mg Chewable Tablet PO 09/27/24 06:01 324 mg ONCE ONE Administration Meropenem 1 gm/ Sodium 100 mls @ 100 mls/hr 09/27/24 06:04 09/27/24 06:53 Chloride IV 09/27/24 06:05 100 mls/hr ONCE ONE Administration Lactated Ringer's 1,700 mls @ 999 mls/hr 09/27/24 06:08 09/27/24 06:42 Lactated Ringer's 1000 Ml Bag IV 09/27/24 07:50 999 mls/hr .Q1H43M ONE Administration Iopamidol 80 ml 09/27/24 06:52 09/27/24 06:54 Iopamidol-370 (76%);100ml Bottle IV 09/27/24 06:53 80 ml ONCE ONE Administration Sodium Chloride 50 ml 09/27/24 06:52 09/27/24 06:53 0.9 % Sodium Chloride 50 Ml Vial IV 09/27/24 06:53 50 ml ONCE ONE Administration Sodium Chloride 10 ml 09/27/24 06:52 09/27/24 06:54 Sodium Chloride 0.9% 10ml Syr (Rad Only) IV 09/27/24 06:53 10 ml ONCE ONE Administration ORDERS Category Date Time Status CT abdomen pelvis w con Stat Cat Scan 09/27/24 06:[address] angio chest PE protocol Stat Cat Scan 09/27/24 06:00 Completed BNP [NT Pro Brain Natriuretic Pep.] Stat Lab 09/27/24 05:51 Completed Complete Blood Count Auto Diff Stat Lab 09/27/24 05:51 Completed Comprehensive Metabolic Panel Stat Lab 09/27/24 05:51 Completed D-Dimer Stat Lab 09/27/24 05:51 Completed Full Resp Panel w/COVID ([facility]) Routine Lab 09/27/24 06:34 Completed Lactic Acid Stat Lab 09/27/24 06:30 Completed Procalcitonin Stat Lab 09/27/24 05:51 Completed Troponin I Q3H Lab 09/27/24 09:22 Completed Troponin I Q3H Lab 09/27/24 12:07 Completed Troponin I Stat Lab 09/27/24 05:51 Completed Urinalysis and Microscopic Stat Lab 09/27/24 07:08 Completed Blood Culture Stat Micro 09/27/24 06:30 Received Urine Culture Stat Micro 09/27/24 07:08 Received VBG [Venous Blood Gas] Stat RT 09/27/24 06:07 Completed ECG Data Tracing #2: Attestation: I reviewed this ECG and interpreted as documented below: ECG Narrative: Sinus tachycardia with a ventricular rate of 120 bpm. PVCs noted. Incomplete right bundle branch block. First-degree AV block with a VA interval of 241 ms ECG initial impression date: 09/27/24 ECG initial impression time: 07:12 MDM Narrative Medical Decision Narrative: In summary, this 64-year-old female with comorbidities described in the HPI presents to the emergency department today with cough, abdominal wall pain. On initial evaluation patient is tachycardic, borderline febrile, requiring oxygen support but not tachypneic, normotensive, abdominal wall tenderness with mild induration and malodorous discharge from the suprapubic site, nonacute abdomen, pulmonary exam with rhonchi in right lung loya remainder of cardiopulmonary exam reassuring, no respiratory distress, neuroexam at baseline. Differential diagnosis includes but is not limited to sepsis, ACS, PE, pneumonia, viral syndrome, urinary tract infection, abdominal wall infection, abscess, fistula, bacteremia, fluid overload, among others. Based on these concerns, I ordered serum labs, cardiac workup, CTA PE, urine studies, CT abdomen pelvis. ECG personally interpreted demonstrates sinus rhythm with occasional PVC, rate 96, normal axis, normal VA and QTc, RBBB, no STEMI. Patient received sepsis bolus of IV fluids, meropenem based on previous urine cultures for treatment. Labs personally reviewed demonstrate leukopenia WBC 3.0, anemia hemoglobin 11.2, patient does not have neutropenia, thrombocytopenia with platelets 108 is new compared to Melquiades, D-dimer normal reassuring against PE, VBG with normal pH, normal pCO2,, normal lactic on VBG, prerenal azotemia present, patient already receiving IV fluids, no actionable electrolyte abnormalities, nasal troponin undetectably low less than 0.01, patient's BNP slightly elevated at 172, not specifically actionable at this time since patient does not exhibit other signs of clinical fluid overload. CT imaging pending at the time of physician shift change. Urine studies, viral swab pending. Patient handed off to Dr. Cervantes in stable condition pending imaging, remaining laboratory workup. Billy, DO: I assumed care of the patient at 7:00 this morning. On my assessment, she is lying in bed in no significant distress. I did try to wean her from her O2, however she desaturated to 83%. She does not typically wear oxygen at baseline. She tested positive for human metapneumovirus. Urinalysis is concerning for infection. She has leukopenia, which could be just viral suppression versus sepsis. Patient was started on broad-spectrum antibiotics by previous provider. Overall, I feel she would benefit from admission for continued monitoring given her respiratory failure and pending cultures to rule out sepsis as a cause of her vital sign and lab abnormalities as opposed to just being related to her human metapneumovirus. I had an interactive discussion with the hospitalist who admitted the patient in stable condition.
[2024-09-27 06:37] LABS: Troponin I < 0.01 ng/ml (0.00-0.034)
[2024-09-27 06:39] LABS: Adenovirus,PCR Not Detected (NotDetected); Bordetella Pertussis Not Detected (NotDetected); Chlamydophila Pneumoniae, PCR Not Detected (NotDetected); Coronavirus 19, PCR Not Detected (NotDetected); Coronavirus 229E Not Detected (NotDetected); Coronavirus NL63 Not Detected (NotDetected); Coronavirus OC43 Not Detected (NotDetected); Coronovirus HKU1,PCR Not Detected (NotDetected); Influenza A, PCR Not Detected (NotDetected); Influenza AH1, 2009 Not Detected (NotDetected); Influenza AH1, PCR Not Detected (NotDetected); Influenza AH3,PCR Not Detected (NotDetected); Influenza B, PCR Not Detected (NotDetected); Mycoplasma Pneumoniae, PCR Not Detected (NotDetected); Parainfluenza 1, PCR Not Detected (NotDetected); Parainfluenza 2, PCR Not Detected (NotDetected); Parainfluenza 3, PCR Not Detected (NotDetected); Parainfluenza 4, PCR Not Detected (NotDetected); Respiratory Syncytial Virus Not Detected (NotDetected); Rhinovirus/Enterovirus Not Detected (NotDetected)
[2024-09-27] MEDS: LACTATED RINGERS 1000ML 1,700 ML 999 ML IV (06:42)
[2024-09-27] MEDS: ASPIRIN 81MG CHEWABLE TABLET 324 MG PO (06:43)
[2024-09-27] MEDS: MEROPENEM 1 GM in 0.9 % SODIUM CHLORIDE 100 ML IV (06:53)
[2024-09-27] MEDS: 0.9 % SODIUM CHLORIDE 50 ML VIAL IV (06:53)
[2024-09-27] MEDS: SODIUM CHLORIDE 0.9% 10ML SYR (RAD ONLY) 10 ML IV (06:54)
[2024-09-27] MEDS: IOPAMIDOL-370 (76%);100ML BOTTLE 80 ML IV (06:54)
[2024-09-27] MEDS: ACETAMINOPHEN 1,000MG/100ML VIAL 1000 MG IV (07:05)
--- NOTE | 2024-09-27 07:10 | ECG_ITS ---
APPROVED REPORT Exam: Resting ECG HR:120 bpm ECG Measurements Heart Rate 120 AXES MT 241 P 79 QRSd 99 QRS -24 QT 408 T 73 QTc 479 Conclusion SINUS TACHYCARDIA WITH FIRST DEGREE AV BLOCK WITH OCCASIONAL ECTOPIC PREMATURE COMPLEXES INDETERMINATE AXIS PATTERN CONSISTENT WITH PULMONARY DISEASE INCOMPLETE RIGHT BUNDLE BRANCH BLOCK [90+ ms QRS DURATION, TERMINAL R IN V1/V2, 40+ ms S IN I/aVL/V4/V5/V6] No acute STEMI Electronically signed by : CHI MCBRIDE, 09/27/2024 16:35:32
[2024-09-27 07:20] LABS: Microscopic, Urine URINE MICROSCOPIC (MICROSCOPIC)
[2024-09-27 07:20] LABS: Lactic Acid 0.8 mmol/L (0.7-2.1)
[2024-09-27 07:24] LABS: Appearance,Urine CLEAR (Clear); Bilirubin,Urine Negative (Negative); Blood, Urine TRACE-I (Negative); Color,Urine YELLOW (Yellow); Glucose,Urine (UA) Negative (Negative); Ketones,Urine Negative (Negative); Leukocyte Esterase,Urine 1+ (Negative); Nitrate,Urine POSITIVE (Negative); Protein,Urine 1+ (Negative); Specific Gravity, Urine >= 1.030 (1.005-1.030); Urobilinogen,Urine 0.2 EU/dl (0.2)
[2024-09-27 07:58] LABS: Procalcitonin 0.066 ng/mL (0.0-2.0)
[2024-09-27 08:31] LABS: Human Metapneumovirus Detected (NotDetected)
[2024-09-27 08:49] LABS: Bacteria,Urine 4+ /lpf; Calcium Oxalate Crystals,Urine Trace /lpf
--- NOTE | 2024-09-27 09:33 | PC.NURSE ---
CONTINUITY COORDINATOR NOTIFIED OF ADMISSION
[2024-09-27 10:00] LABS: Troponin I < 0.01 ng/ml (0.00-0.034)
--- NOTE | 2024-09-27 10:17 | PC.NURSE ---
REPORT CALLED HUBERT CASANOVA
--- NOTE | 2024-09-27 11:14 | P.CONPHA_ITS ---
Pharmacy Intervention Comments: MEDICATION RECONCILIATION COMPLETED ON PATIENT USING [facility]. -KENNETH SWENSOND
--- NOTE | 2024-09-27 11:14 | HMH.PHAINT1 ---
Pharmacy Intervention Comments: MEDICATION RECONCILIATION COMPLETED ON PATIENT USING [facility]. -KENNETH SWENSOND
--- NOTE | 2024-09-27 12:01 | SW/DCPLANNER ---
Patient currently resides at [facility] level of care. I will continue to follow up w/ [facility] until patient is medically stable for discharge. Discharge date is unknown at this time.
[2024-09-27 12:44] LABS: Troponin I < 0.01 ng/ml (0.00-0.034)
[2024-09-27] MEDS: ACETAMINOPHEN 325MG TAB 650 MG PO (15:05)
--- NOTE | 2024-09-27 16:08 | HMH.PTWOUND ---
Rehab Inpt Wound Evaluation Rehab IP Wound Evaluation Start: 09/27/24 13:55 Freq: ONCE Status: Active Protocol: Document 09/27/24 16:05 CARISA (Rec: 09/27/24 16:08 CARISA [id number]) Rehab PT Wound Assessment Subjective Subjective 64-year-old female with history of cerebral palsy, suprapubic catheter, spinal fracture 2 years ago presents to the ER with complaints of shortness of breath, cough. long-term called EMS for patient's symptoms. They are concerned for possible pneumonia, cough, urinary tract infection. Patient reports she has had the cough for the last 5 days and does not seem to be getting any better. PT inpatient wound consult ordered per protocol due to low elio scale score. Pt currently has no wounds of note and no need for inpatient PT wound care at this time. Thank you for involving the wound care team in the care of this patient. Plan/Recommendation Comment No current wounds. Nsg performing appropriate pressure relief per protocols. Eval Complexity Eval Charge Codes 21603 - High Complexity PHYSICIAN CERTIFICATION: I certify the specified therapy services for Meme Carey are required, authorized, and reviewed every 30 days.
--- NOTE | 2024-09-27 16:20 | EXP.HPDC ---
General Admission date:: 09/27/24 *Admission Date: 09/27/24 *Chief complaint: Acute hypoxic respiratory failure *History of present illness: Meme Carey is a 64-year-old female who was admitted for acute hypoxic respiratory failure secondary to human metapneumovirus and history of multidrug-resistant UTI. Patient was initially somewhat tachypneic requiring 4 L for appropriate saturations. Respiratory panel was positive for human metapneumovirus with some evidence of bibasilar atelectasis/pneumonia on CTA chest. UA grossly abnormal with history of multidrug-resistant UTI, previous one sensitive to Bactrim. On arrival to medicine floor, patient was able to be weaned to room air with appropriate saturations. Her tachypnea also resolved, and patient is more comfortable. She does have chronic back pain for which she takes pain medications. No acute complaints at this time. Medically stable for discharge. Discharged with Bactrim for UTI and cefdinir for possible community-acquired pneumonia. Referred to urology for further management of suprapubic catheter. Will let nursing facility know if urine culture results with resistance to Bactrim. [facility] Disclaimer: The information contained in this section may have been updated after the patient was seen, as this information can be updated by other users. Medical History Physical debility Neurogenic bladder Generalized anxiety disorder New onset seizure Osteoporosis History of hypertension Hyperlipidemia GERD (gastroesophageal reflux disease) Depression Surgical History H/O kyphoplasty H/O tubal ligation H/O thyroidectomy Hx of appendectomy Family History Other No significant family history Social History Smoking Status: Never smoker second hand exposure: No alcohol intake: never counseling provided: none substance use type: denies use current occupational status: other Travel in the last 8 weeks: None household members: spouse housing: house lives independently: No marital status: number of children: 2 current occupational exposures/hazards: No caffeine: Yes Have you lived/traveled outside [place] in past 30 days?: No Contact w/someone who lives/traveled outside US past 30 days?: No Exposure to someone with infectious disease in past 14 days?: No Do you have a fever (greater than 100.4 F or 38 C)?: No Have you tested positive for COVID-19: No Exposed to someone with COVID-19 in past 14 days?: No Do you have a sore throat?: No Do you have a cough?: No Do you have any weakness?: No Do you have any diarrhea?: No Are you experiencing any unusual bleeding?: No Do you have any muscle aches/pain?: No Do you have any abdominal pain?: No Are you experiencing loss of taste or smell?: No Other Medical History Have you received the Flu Vaccine for this season: Yes Have you received the Pneumonia Vaccine: No Exam Data for Last 24 hours Vital signs and Labs for Last 24 Hours: Temp Pulse Resp BP Pulse Ox O2 Del Method O2 Flow Rate 98.2 F 92 H 20 130/88 92 L Room Air 2 09/27/24 10:17 09/27/24 10:17 09/27/24 10:17 09/27/24 10:17 09/27/24 10:00 09/27/24 13:00 09/27/24 10:17 Laboratory Results - last 24 hr 09/27/24 05:51: WBC 3.0 L, RBC 4.38, Hgb 11.2 L, Hct 36.9 L, MCV 84.2, MCH 25.6 L, MCHC 30.4 L, RDW 15.8, Plt Count 108 L, MPV 11.5 H, Neut % (Auto) 68.7, Lymph % (Auto) 22.4, [place] % (Auto) 6.3, Eos % (Auto) 2.0, Baso % (Auto) 0.3, Neut # (Auto) 2.1, Lymph # (Auto) 0.7, [place] # (Auto) 0.2, Eos # (Auto) 0.1, Baso # (Auto) 0.0, D-Dimer 0.33, Sodium 138, Potassium 3.5, Chloride 105, Carbon Dioxide 27, Anion Gap 9.5, BUN 19 H, Creatinine 0.40 L, Estimated Creat Clear 50, Estimated GFR 160, Est GFR ( Amer) 193, Glucose 119 H, Calcium 8.5, Total Bilirubin 0.4, AST 25, ALT 14, Alkaline Phosphatase 71, Troponin I < 0.01, NT-Pro-B Natriuret Pep 172 H, Total Protein 6.6, Albumin 3.7, Globulin 2.9, Albumin/Globulin Ratio 1.3, Procalcitonin 0.066 09/27/24 06:07: VBG pH 7.34, VBG pCO2 46.1, VBG pO2 36.6, VBG HCO3 24.2, VBG Total CO2 25.6, VBG O2 Saturation 69.1, VBG Base Excess -1.6, VBG Lactic Acid 1.0 09/27/24 06:30: Lactate 0.8 09/27/24 06:34: Chlamy pneumoniae PCR Not detected, Adenovirus (PCR) Not detected, B. pertussis DNA (PCR) Not detected, Coronavirus OC43 (PCR) Not detected, Coronavirus HKU1 (PCR) Not detected, Coronavirus 229E (PCR) Not detected, SARS-CoV-2 (PCR) Not detected, Coronavirus NL63 (PCR) Not detected, Human Metapneumovir PCR Detected A, Influenza A (H1) PCR Not detected, Influ A (H1N1/09) PCR Not detected, Influenza A (H3) PCR Not detected, Influenza Type A (PCR) Not detected, Influenza Type B (PCR) Not detected, M. pneumoniae (PCR) Not detected, Parainfluenza 1 (PCR) Not detected, Parainfluenza 2 (PCR) Not detected, Parainfluenza 3 (PCR) Not detected, Parainfluenza 4 (PCR) Not detected, RSV (PCR) Not detected, Entero/Rhino (PCR) Not detected 09/27/24 07:08: Urine Color Yellow, Urine Appearance Clear, Urine pH 6.0, Ur Specific [place] >= 1.030, Urine Protein 1+ A, Urine Glucose (UA) Negative, Urine Ketones Negative, Urine Blood Trace-i, Urine Nitrate Positive A, Urine Bilirubin Negative, Urine Urobilinogen 0.2, Ur Leukocyte Esterase 1+ A, Urine RBC 3-5, Urine WBC 10-20, Ur Squamous Epith Cells None, Calcium Oxalate Crystal Trace, Urine Bacteria 4+ 09/27/24 09:22: Troponin I < 0.01 09/27/24 12:07: Troponin I < 0.01 I & O for Last 24 hours: Intake & Output 09/24/24 09/25/24 09/26/24 09/27/24 23:59 23:59 23:59 23:59 Weight 58.598 kg Constitutional Constitutional: no acute distress *Routine HEENT Exam Head: Present normocephalic Eye: Present EOMI and PERRL ENT: Present mucous membranes moist *Routine Neck Exam Neck: Present supple; Absent lymphadenopathy *Routine Respiratory Exam Respiratory: Present CTA bilaterally *Routine Cardiovascular Exam Cardiovascular: Present RRR *Routine Abdominal Exam Abdominal: Present soft and normoactive bowel sounds; Absent tenderness *Routine Rectal Exam Rectal:: deferred *Routine Genitalia Exam Genitalia:: deferred *Routine Extremities Exam Extremities: Absent cyanosis, clubbing or edema Comments: Lower extremity weakness, suprapubic catheter since lumbar vertebral fractures. *Routine Skin Exam Skin: Present warm; Absent rash *Routine Neurological Exam Neurological: Present alert and oriented X3 Meds Home Medications and Allergies Home Medications ?Medication ?Instructions ?Recorded ?Confirmed ?Type cyanocobalamin (vitamin B-12) 1,000 mcg IM MONTHLY 11/04/18 09/27/24 History 1,000 mcg/mL injection solution cholecalciferol (vitamin D3) 50 25 mcg PO DAILY 10/11/19 09/27/24 History mcg (2,000 unit) tablet levothyroxine 200 mcg tablet 200 mcg PO DAILY 02/14/23 09/27/24 History omeprazole 40 mg capsule,delayed 40 mg PO DAILY 02/14/23 09/27/24 History release linaclotide 145 mcg capsule 145 mcg PO DAILY #30 caps 09/21/24 09/27/24 Rx (Linzess) acetaminophen 500 mg tablet 1,000 mg PO Q6HP PRN Mild Pain 09/27/24 09/27/24 History (Scale Score 1-4) cefdinir 300 mg capsule 300 mg PO BID 5 days #10 caps 09/27/24 Rx dantrolene 50 mg capsule 50 mg PO TID 09/27/24 09/27/24 History diclofenac sodium 1 % topical gel 1 ea topical Q6HP PRN JOINT PAIN 09/27/24 09/27/24 History diphenhydramine HCl 25 mg tablet 25 mg PO TIDP PRN Itching 09/27/24 09/27/24 History gabapentin 400 mg capsule 400 mg PO TID 09/27/24 09/27/24 History hydrocodone 5 mg-acetaminophen 325 1 tab PO Q6HP PRN Moderate Pain 09/27/24 09/27/24 History mg tablet (Scale Score 5-6) lactulose 10 gram/15 mL oral 20 g PO DAILYP PRN Constipation 09/27/24 09/27/24 History solution levetiracetam 500 mg tablet 500 mg PO BID 09/27/24 09/27/24 History melatonin 3 mg tablet 6 mg PO HS 09/27/24 09/27/24 History midodrine 5 mg tablet 5 mg PO BID 09/27/24 09/27/24 History multivit with minerals-iron 18 1 tab PO DAILY 09/27/24 09/27/24 History mg-folic ac 400 mcg-vit K 25 mcg tablet (Adults Multivitamin) polyethylene glycol 3350 17 17 g PO DAILY 09/27/24 09/27/24 History gram/dose oral powder prednisone 20 mg tablet 40 mg (2 x 20 mg) PO DAILY 5 days 09/27/24 Rx #10 tabs sennosides 8.6 mg-docusate sodium 1 tab PO HS 09/27/24 09/27/24 History 50 mg tablet (Stimulant Laxative Plus) sertraline 100 mg tablet 150 mg PO DAILY 09/27/24 09/27/24 History sulfamethoxazole 800 1 tab PO BID 5 days #10 tabs 09/27/24 Rx mg-trimethoprim 160 mg tablet (Bactrim DS) tizanidine 2 mg capsule 2 mg PO BID 09/27/24 09/27/24 History trazodone 50 mg tablet 50 mg PO HS 30 days #30 tabs 09/27/24 Rx New Prescriptions to Start Prescriptions: cefdinir Dmitri Bruno prednisone Dmitri Bruno sulfamethoxazole-trimethoprim [Bactrim DS] Dmitri Bruno trazodone Dmitri Bruno Allergies Allergy/AdvReac Type Severity Reaction Status Date / Time metoclopramide (From REGLAN) Allergy Mild I-RASH Verified 08/31/24 18:32 Sulfa (Sulfonamide Allergy Mild I-RASH Verified 08/31/24 18:32 Antibiotics) (SULFA (SULFONAMIDE ANTIBIOTICS)) morphine Allergy Vomiting Verified 08/31/24 18:32 Hospital Course Hospital Course Hospital Course: Respiratory panel was positive for human metapneumovirus with some evidence of bibasilar atelectasis/pneumonia on CTA chest. UA grossly abnormal with history of multidrug-resistant UTI, previous one sensitive to Bactrim. On arrival to medicine floor, patient was able to be weaned to room air with appropriate saturations. Her tachypnea also resolved, and patient is more comfortable. She does have chronic back pain for which she takes pain medications. No acute complaints at this time. Medically stable for discharge. Discharged with Bactrim for UTI and cefdinir for possible community-acquired pneumonia. Referred to urology for further management of suprapubic catheter. Will let nursing facility know if urine culture results with resistance to Bactrim. Provided new refill for trazodone 50 mg nightly for sleep. Results Data Completed and Pending Labs on day of discharge: Labs from last 24 hours 09/27/24 09/27/24 09/27/24 12:07 09:22 07:08 WBC RBC Hgb Hct MCV MCH MCHC RDW Plt Count MPV Neut % (Auto) Lymph % (Auto) [place] % (Auto) Eos % (Auto) Baso % (Auto) Neut # (Auto) Lymph # (Auto) [place] # (Auto) Eos # (Auto) Baso # (Auto) D-Dimer VBG pH VBG pCO2 VBG pO2 VBG HCO3 VBG Total CO2 VBG O2 Saturation VBG Base Excess VBG Lactic Acid Sodium Potassium Chloride Carbon Dioxide Anion Gap BUN Creatinine Estimated Creat Clear Estimated GFR Est GFR ( Amer) Glucose Lactate Calcium Total Bilirubin AST ALT Alkaline Phosphatase Troponin I < 0.01 < 0.01 NT-Pro-B Natriuret Pep Total Protein Albumin Globulin Albumin/Globulin Ratio Procalcitonin Urine Color Yellow Urine Appearance Clear Urine pH 6.0 Ur Specific [place] >= 1.030 Urine Protein 1+ A Urine Glucose (UA) Negative Urine Ketones Negative Urine Blood Trace-i Urine Nitrate Positive A Urine Bilirubin Negative Urine Urobilinogen 0.2 Ur Leukocyte Esterase 1+ A Urine RBC 3-5 Urine WBC 10-20 Ur Squamous Epith Cells None Calcium Oxalate Crystal Trace Urine Bacteria 4+ Chlamy pneumoniae PCR Adenovirus (PCR) B. pertussis DNA (PCR) Coronavirus OC43 (PCR) Coronavirus HKU1 (PCR) Coronavirus 229E (PCR) SARS-CoV-2 (PCR) Coronavirus NL63 (PCR) Human Metapneumovir PCR Influenza A (H1) PCR Influ A (H1N1/09) PCR Influenza A (H3) PCR Influenza Type A (PCR) Influenza Type B (PCR) M. pneumoniae (PCR) Parainfluenza 1 (PCR) Parainfluenza 2 (PCR) Parainfluenza 3 (PCR) Parainfluenza 4 (PCR) RSV (PCR) Entero/Rhino (PCR) 09/27/24 09/27/24 09/27/24 06:34 06:30 06:07 WBC RBC Hgb Hct MCV MCH MCHC RDW Plt Count MPV Neut % (Auto) Lymph % (Auto) [place] % (Auto) Eos % (Auto) Baso % (Auto) Neut # (Auto) Lymph # (Auto) [place] # (Auto) Eos # (Auto) Baso # (Auto) D-Dimer VBG pH 7.34 VBG pCO2 46.1 VBG pO2 36.6 VBG HCO3 24.2 VBG Total CO2 25.6 VBG O2 Saturation 69.1 VBG Base Excess -1.6 VBG Lactic Acid 1.0 Sodium Potassium Chloride Carbon Dioxide Anion Gap BUN Creatinine Estimated Creat Clear Estimated GFR Est GFR ( Amer) Glucose Lactate 0.8 Calcium Total Bilirubin AST ALT Alkaline Phosphatase Troponin I NT-Pro-B Natriuret Pep Total Protein Albumin Globulin Albumin/Globulin Ratio Procalcitonin Urine Color Urine Appearance Urine pH Ur Specific [place] Urine Protein Urine Glucose (UA) Urine Ketones Urine Blood Urine Nitrate Urine Bilirubin Urine Urobilinogen Ur Leukocyte Esterase Urine RBC Urine WBC Ur Squamous Epith Cells Calcium Oxalate Crystal Urine Bacteria Chlamy pneumoniae PCR Not detected Adenovirus (PCR) Not detected B. pertussis DNA (PCR) Not detected Coronavirus OC43 (PCR) Not detected Coronavirus HKU1 (PCR) Not detected Coronavirus 229E (PCR) Not detected SARS-CoV-2 (PCR) Not detected Coronavirus NL63 (PCR) Not detected Human Metapneumovir PCR Detected A Influenza A (H1) PCR Not detected Influ A (H1N1/09) PCR Not detected Influenza A (H3) PCR Not detected Influenza Type A (PCR) Not detected Influenza Type B (PCR) Not detected M. pneumoniae (PCR) Not detected Parainfluenza 1 (PCR) Not detected Parainfluenza 2 (PCR) Not detected Parainfluenza 3 (PCR) Not detected Parainfluenza 4 (PCR) Not detected RSV (PCR) Not detected Entero/Rhino (PCR) Not detected 09/27/24 05:51 WBC 3.0 L RBC 4.38 Hgb 11.2 L Hct 36.9 L MCV 84.2 MCH 25.6 L MCHC 30.4 L RDW 15.8 Plt Count 108 L MPV 11.5 H Neut % (Auto) 68.7 Lymph % (Auto) 22.4 [place] % (Auto) 6.3 Eos % (Auto) 2.0 Baso % (Auto) 0.3 Neut # (Auto) 2.1 Lymph # (Auto) 0.7 [place] # (Auto) 0.2 Eos # (Auto) 0.1 Baso # (Auto) 0.0 D-Dimer 0.33 VBG pH VBG pCO2 VBG pO2 VBG HCO3 VBG Total CO2 VBG O2 Saturation VBG Base Excess VBG Lactic Acid Sodium 138 Potassium 3.5 Chloride 105 Carbon Dioxide 27 Anion Gap 9.5 BUN 19 H Creatinine 0.40 L Estimated Creat Clear 50 Estimated GFR 160 Est GFR ( Amer) 193 Glucose 119 H Lactate Calcium 8.5 Total Bilirubin 0.4 AST 25 ALT 14 Alkaline Phosphatase 71 Troponin I < 0.01 NT-Pro-B Natriuret Pep 172 H Total Protein 6.6 Albumin 3.7 Globulin 2.9 Albumin/Globulin Ratio 1.3 Procalcitonin 0.066 Urine Color Urine Appearance Urine pH Ur Specific [place] Urine Protein Urine Glucose (UA) Urine Ketones Urine Blood Urine Nitrate Urine Bilirubin Urine Urobilinogen Ur Leukocyte Esterase Urine RBC Urine WBC Ur Squamous Epith Cells Calcium Oxalate Crystal Urine Bacteria Chlamy pneumoniae PCR Adenovirus (PCR) B. pertussis DNA (PCR) Coronavirus OC43 (PCR) Coronavirus HKU1 (PCR) Coronavirus 229E (PCR) SARS-CoV-2 (PCR) Coronavirus NL63 (PCR) Human Metapneumovir PCR Influenza A (H1) PCR Influ A (H1N1/09) PCR Influenza A (H3) PCR Influenza Type A (PCR) Influenza Type B (PCR) M. pneumoniae (PCR) Parainfluenza 1 (PCR) Parainfluenza 2 (PCR) Parainfluenza 3 (PCR) Parainfluenza 4 (PCR) RSV (PCR) Entero/Rhino (PCR) Discharge Plan Disposition Patient Disposition: Xfer SNF Condition: Fair Discharge Order Discharge Orders: Discharge Order (Routine); Ordered 09/27/24 Ordered By: Dmitri Bruno Follow up Plan Follow up with: Dmitri Menezes MD [Staff Physician] - Enter time for follow up (Suprapubic catheter management) Prescriptions/Medication Reconciliation: New sulfamethoxazole-trimethoprim [Bactrim DS] 800-160 mg tablet 1 tab PO BID 5 Days Qty: 10 0RF prednisone 20 mg tablet 40 mg PO DAILY 5 Days Qty: 10 0RF cefdinir 300 mg capsule 300 mg PO BID 5 Days Qty: 10 0RF Continued cyanocobalamin (vitamin B-12) 1,000 mcg/mL solution 1,000 mcg IM MONTHLY cholecalciferol (vitamin D3) 50 mcg (2,000 unit) tablet 25 mcg PO DAILY omeprazole 40 mg capsule,delayed release(DR/EC) 40 mg PO DAILY Patient Comments: TAKE 1 CAPSULE BY MOUTH ONCE DAILY levothyroxine 200 mcg tablet 200 mcg PO DAILY Patient Comments: TAKE 1 TABLET BY MOUTH ONCE DAILY Linzess 145 mcg capsule 145 mcg PO DAILY Qty: 30 0RF levetiracetam 500 mg tablet 500 mg PO BID sennosides-docusate sodium [Stimulant Laxative Plus] 8.6-50 mg tablet 1 tab PO HS dantrolene 50 mg Capsule 50 mg PO TID gabapentin 400 mg capsule 400 mg PO TID midodrine 5 mg tablet 5 mg PO BID melatonin 3 mg tablet 6 mg PO HS acetaminophen 500 mg Tablet 1,000 mg PO Q6HP PRN (Reason: Mild Pain (Scale Score 1-4)) diphenhydramine HCl 25 mg Tablet 25 mg PO TIDP PRN (Reason: Itching) polyethylene glycol 3350 17 gram/dose powder 17 g PO DAILY lactulose 10 gram/15 mL Solution 20 g PO DAILYP PRN (Reason: Constipation) tizanidine 2 mg capsule 2 mg PO BID diclofenac sodium 1 % Gel 1 ea TOPICAL Q6HP PRN (Reason: JOINT PAIN) Rx Instructions: apply to single elbow, wrist or hand; for hand includes palm/fingers/back of hand Adults Multivitamin 18 mg iron-400 mcg-25 mcg Tablet 1 tab PO DAILY hydrocodone-acetaminophen 5-325 mg tablet 1 tab PO Q6HP PRN (Reason: Moderate Pain (Scale Score 5-6)) sertraline 100 mg tablet 150 mg PO DAILY trazodone 50 mg tablet 50 mg PO HS 30 Days Qty: 30 0RF Discontinued azithromycin 250 mg tablet 250 mg PO DAILY Problem Reconciliation Problems Reviewed?: Yes Patient Discharge Instructions Patient Instructions: Urinary Tract Infection, DI for Urinary Tract Infection (UTI), DI for Respiratory Failure, Respiratory Failure Print Language: Italian Providers Primary Care Provider: Provider,Referral Admit Provider: Dmitri Bruno Attending Provider: Dmitri Bruno
--- NOTE | 2024-09-27 18:57 | PC.NURSE ---
Report called to [facility] and ems called for patient transfer back to SNF at [id number].
--- NOTE | 2024-09-27 19:36 | PC.NURSE ---
Pt discharged off floor via EMS @07:24.
== END 2024-09-27 19:24 ==
LOC: ER 08:58 → 2ND 09:37
PROVIDERS: Emergency Medicine; Admitting Provider Student in an Organized Health Care Education/Training Program; Emergency Provider Emergency Medicine; Visit Provider Student in an Organized Health Care Education/Training Program
DX: J12.3 Human metapneumovirus pneumonia (principal); J96.01 Acute respiratory failure with hypoxia; N39.0 Urinary tract infection, site not specified; I45.10 Unspecified right bundle-branch block; G80.9 Cerebral palsy, unspecified; K21.9 Gastro-esophageal reflux disease without esophagitis; M80.88XS Other osteoporosis with current pathological fracture, vertebra(e), sequela; N31.9 Neuromuscular dysfunction of bladder, unspecified; T83.84XA Pain due to genitourinary prosthetic devices, implants and grafts, initial encounter; B96.4 Proteus (mirabilis) (morganii) as the cause of diseases classified elsewhere; B96.20 Unspecified Escherichia coli [E. coli] as the cause of diseases classified elsewhere; Z79.899 Other long term (current) drug therapy; Z16.20 Resistance to unspecified antibiotic; Z87.310 Personal history of (healed) osteoporosis fracture
CPT/HCPCS: 71275; 74177; 80053; 81001; 82803; 83605; 83880; 84145; 84484; 85025; 85378; 87040; 87086; 87088; 87186; 87633; 93005; 99285; G0378; J0131; J2185; J7120; Q9967

== ENCOUNTER 2024-09-28 11:30 | Emergency (ER) | payer MEDICARE, MEDICAID, SELFPAY ==
[2024-09-28] VITALS (8 sets, daily range): BP systolic 111–127; BP diastolic 51–87; PULSE 67–99; RESP 16–18; TEMP 36.8; O2SAT 94–98; BMI 27.4
--- NOTE | 2024-09-28 12:13 | HMH.EDGENADL ---
Discharge Plan Disposition Patient Disposition: Xfer SNF Condition: Good Prescriptions Prescriptions: No Action cyanocobalamin (vitamin B-12) 1,000 mcg/mL solution 1,000 mcg IM MONTHLY cholecalciferol (vitamin D3) 50 mcg (2,000 unit) tablet 25 mcg PO DAILY omeprazole 40 mg capsule,delayed release(DR/EC) 40 mg PO DAILY Patient Comments: TAKE 1 CAPSULE BY MOUTH ONCE DAILY levothyroxine 200 mcg tablet 200 mcg PO DAILY Patient Comments: TAKE 1 TABLET BY MOUTH ONCE DAILY Linzess 145 mcg capsule 145 mcg PO DAILY Qty: 30 0RF levetiracetam 500 mg tablet 500 mg PO BID sennosides-docusate sodium [Stimulant Laxative Plus] 8.6-50 mg tablet 1 tab PO HS dantrolene 50 mg Capsule 50 mg PO TID gabapentin 400 mg capsule 400 mg PO TID midodrine 5 mg tablet 5 mg PO BID melatonin 3 mg tablet 6 mg PO HS acetaminophen 500 mg Tablet 1,000 mg PO Q6HP PRN (Reason: Mild Pain (Scale Score 1-4)) diphenhydramine HCl 25 mg Tablet 25 mg PO TIDP PRN (Reason: Itching) polyethylene glycol 3350 17 gram/dose powder 17 g PO DAILY lactulose 10 gram/15 mL Solution 20 g PO DAILYP PRN (Reason: Constipation) tizanidine 2 mg capsule 2 mg PO BID diclofenac sodium 1 % Gel 1 ea TOPICAL Q6HP PRN (Reason: JOINT PAIN) Rx Instructions: apply to single elbow, wrist or hand; for hand includes palm/fingers/back of hand Adults Multivitamin 18 mg iron-400 mcg-25 mcg Tablet 1 tab PO DAILY hydrocodone-acetaminophen 5-325 mg tablet 1 tab PO Q6HP PRN (Reason: Moderate Pain (Scale Score 5-6)) sertraline 100 mg tablet 150 mg PO DAILY sulfamethoxazole-trimethoprim [Bactrim DS] 800-160 mg tablet 1 tab PO BID 5 Days Qty: 10 0RF prednisone 20 mg tablet 40 mg PO DAILY 5 Days Qty: 10 0RF trazodone 50 mg tablet 50 mg PO HS 30 Days Qty: 30 0RF cefdinir 300 mg capsule 300 mg PO BID 5 Days Qty: 10 0RF Referrals Follow up/Referrals: Luis Henderson MD [Primary Care Provider] - See instructions Activity Restrictions/Add. Instructions Additional Instructions/Restrictions: You were evaluated in the emergency department today. At this time, patient denies any concerns for suicidal ideation or thoughts. It is felt that she is appropriate for outpatient referral to psychiatry on a nonemergent basis. Clinical Impressions Clinical Impression: Encounter for medical assessment, Behavior disturbance Print Language Print Language: Georgian Discharge ED Provider: Sallie Cervantes General Adult HPI General Stated complaint: recheck Time Seen by Provider: 09/28/24 11:35 History of Present Illness HPI narrative: This patient is a 64-year-old female with a history of cerebral palsy, general debility, neurogenic bladder with suprapubic catheter presenting from [facility] with concern for psychiatric disturbance. According to the [facility] facility nurse who I directly spoke with, the patient has been stating that she wants the shot to kill herself that Rickie Cazares made legal. They state that the patient was refusing to eat, stating that she is going to starve herself to help her faster. They also states that the patient stated that everyone at the nursing facility should . They note that the patient has had manipulative behaviors. According to the patient, she states that one of the nurses was telling her how Rickie Cazares made getting a shot to kill yourself legal in [place]. She states that she was asked her opinion on it, and she stated that she thinks people should have the right to choose. She the patient states that she never said that she wanted to kill herself. I advised her that I was told that she wanted to starve herself to help faster, but she states that she never said that and just has not felt like eating today because she is sick. She advised I should look at her record because I should be able to see where she was here yesterday and diagnosed with human metapneumovirus and UTI. I evaluated her yesterday and had admitted her to the hospital for these issues, which when she was discharged yesterday afternoon. She currently denies any concerns or complaints and states she is ready to go back to the nursing facility and play bingo. She adamantly denies any SI, HI, or any thoughts of self-harm. She states she ate breakfast normally this morning but did not feel like eaten lunch and does not feel like eating right now just because of being sick. Patient states the nursing facility is lying. Related Data Home Medications ?Medication ?Instructions ?Recorded ?Confirmed cyanocobalamin (vitamin B-12) 1,000 mcg IM MONTHLY 11/04/18 09/27/24 1,000 mcg/mL injection solution cholecalciferol (vitamin D3) 50 25 mcg PO DAILY 10/11/19 09/27/24 mcg (2,000 unit) tablet levothyroxine 200 mcg tablet 200 mcg PO DAILY 02/14/23 09/27/24 omeprazole 40 mg capsule,delayed 40 mg PO DAILY 02/14/23 09/27/24 release acetaminophen 500 mg tablet 1,000 mg PO Q6HP PRN Mild Pain 09/27/24 09/27/24 (Scale Score 1-4) dantrolene 50 mg capsule 50 mg PO TID 09/27/24 09/27/24 diclofenac sodium 1 % topical gel 1 ea topical Q6HP PRN JOINT PAIN 09/27/24 09/27/24 diphenhydramine HCl 25 mg tablet 25 mg PO TIDP PRN Itching 09/27/24 09/27/24 gabapentin 400 mg capsule 400 mg PO TID 09/27/24 09/27/24 hydrocodone 5 mg-acetaminophen 325 1 tab PO Q6HP PRN Moderate Pain 09/27/24 09/27/24 mg tablet (Scale Score 5-6) lactulose 10 gram/15 mL oral 20 g PO DAILYP PRN Constipation 09/27/24 09/27/24 solution levetiracetam 500 mg tablet 500 mg PO BID 09/27/24 09/27/24 melatonin 3 mg tablet 6 mg PO HS 09/27/24 09/27/24 midodrine 5 mg tablet 5 mg PO BID 09/27/24 09/27/24 multivit with minerals-iron 18 1 tab PO DAILY 09/27/24 09/27/24 mg-folic ac 400 mcg-vit K 25 mcg tablet (Adults Multivitamin) polyethylene glycol 3350 17 17 g PO DAILY 09/27/24 09/27/24 gram/dose oral powder sennosides 8.6 mg-docusate sodium 1 tab PO HS 09/27/24 09/27/24 50 mg tablet (Stimulant Laxative Plus) sertraline 100 mg tablet 150 mg PO DAILY 09/27/24 09/27/24 tizanidine 2 mg capsule 2 mg PO BID 09/27/24 09/27/24 Previous Rx's ?Medication ?Instructions ?Recorded linaclotide 145 mcg capsule 145 mcg PO DAILY #30 caps 09/21/24 (Linzess) cefdinir 300 mg capsule 300 mg PO BID 5 days #10 caps 09/27/24 prednisone 20 mg tablet 40 mg (2 x 20 mg) PO DAILY 5 days 09/27/24 #10 tabs sulfamethoxazole 800 1 tab PO BID 5 days #10 tabs 09/27/24 mg-trimethoprim 160 mg tablet (Bactrim DS) trazodone 50 mg tablet 50 mg PO HS 30 days #30 tabs 09/27/24 Allergies Allergy/AdvReac Type Severity Reaction Status Date / Time metoclopramide (From REGLAN) Allergy Mild I-RASH Verified 08/31/24 18:32 Sulfa (Sulfonamide Allergy Mild I-RASH Verified 08/31/24 18:32 Antibiotics) (SULFA (SULFONAMIDE ANTIBIOTICS)) morphine Allergy Vomiting Verified 08/31/24 18:32 PFSH [facility] Disclaimer: The information contained in this section may have been updated after the patient was seen, as this information can be updated by other users. Medical History Physical debility Neurogenic bladder Generalized anxiety disorder New onset seizure Osteoporosis History of hypertension Hyperlipidemia GERD (gastroesophageal reflux disease) Depression Surgical History H/O kyphoplasty H/O tubal ligation H/O thyroidectomy Hx of appendectomy Family History Other No significant family history Social History Smoking Status: Never smoker second hand exposure: No alcohol intake: never counseling provided: none substance use type: denies use current occupational status: other Travel in the last 8 weeks: None household members: spouse housing: house lives independently: No marital status: number of children: 2 current occupational exposures/hazards: No caffeine: Yes Other Medical History Have you received the Flu Vaccine for this season: No Have you received the Pneumonia Vaccine: No ROS Obtained: Yes All systems reviewed & no additional complaints except as documented Physical Exam General General appearance: alert and in no apparent distress Head Head exam: atraumatic and normocephalic Eye Eye exam: Present normal appearance, PERRL and EOMI ENT ENT exam: Present normal exam, normal oropharynx, mucous membranes moist and normal external ear exam Neck Neck exam: Present normal inspection, full ROM and trachea midline; Absent tenderness Chest Chest inspection: Present normal inspection and symmetric chest wall rise; Absent tenderness Respiratory Respiratory exam: Present normal lung sounds bilaterally; Absent respiratory distress, wheezes, stridor or accessory muscle use Cardiovascular Cardiovascular exam: Present regular rate and normal rhythm Abdominal Exam Abdominal exam: Present soft; Absent distention, tenderness or guarding Comment: Suprapubic catheter in place appropriately draining Extremities Exam Extremities exam: Present normal inspection, full ROM and normal capillary refill; Absent tenderness or edema Back Exam Back exam: Present normal inspection and full ROM; Absent tenderness Neurological Exam Neurological exam: Present alert, oriented X3 and other (At her neurologic baseline) Psychiatric Psychiatric exam: Present normal affect and normal mood Skin Skin exam: Present warm and dry Medical Decision Making Medical Records Medical records reviewed: Yes I reviewed the patient's medical records. Screening: Per USPSTF and CDC recommendations, given the prevalence of disease in our region, it is our hospital?s policy to screen for HIV and viral Hepatitis for all patients aged 18 and over and those with ongoing risk factors. Claus Inquiry Pt receiving controlled substance: No Lab Data Lab results reviewed: Yes I reviewed the patient's lab results. Orders (Tests/Meds): ORDERS Category Date Time Status Care Management Consult [Consult to Case Management] [ Cons 09/28/24 11:42 Active CONS] Routine Medical Decision Narrative: In summary, this patient is a 64-year-old female presenting to the Emergency Department for evaluation of requested psychiatric evaluation. Differential diagnoses considered include but are not limited to SI, HI, maladaptive behaviors, delirium. Ruling out the most morbid conditions drove assessment. It should be noted patient's history includes cerebral palsy, neurogenic bladder with suprapubic catheter, anxiety/depression, hypertension, and hyperlipidemia which may or may not be at goal therapy. This complicates all aspects of care by increasing patient's risk for morbidity. I reviewed patient's past medical records and noted multiple recent evaluations with concerns for related to her suprapubic catheter, admission yesterday for UTI and human metapneumovirus, discharged to the nursing facility yesterday afternoon. On exam, the patient is lying in bed in no acute distress with normal vital signs and cardiac telemetry. Cardiopulmonary and abdominal exams are benign. She is neurologically intact with normal affect and mood compared to her baseline. She adamantly denies SI/HI/AVH. She denies ever having a plan to kill herself. Nursing facility had told me what the patient has been saying, including that she was going to starve herself, but she is adamant that she is not going to do that and just said that she did not feel like eating because she is sick. We had a very long discussion regarding statements that were made according to the nursing facility, but patient states that they lie. She notes that she does not want to and never has. We had a long discussion regarding appropriate behaviors at the SNF. Ultimately, it is possible the patient could be exhibiting manipulative and maladaptive behaviors, however I do not feel she is in any imminent harm to herself or anyone else. I do not feel that any emergent inpatient psychiatric evaluation is indicated, however I do feel that she would benefit from an outpatient referral to psychiatry. I discussed the case with care management who also discussed the case with the patient's outpatient doctor, Dr. Henderson, as well. Ultimately, I feel the patient is appropriate for discharge back to the half-way facility Critical Care Critical Care Time Critical Care Time: No
--- NOTE | 2024-09-28 12:26 | SW/DCPLANNER ---
Per ED MD patient is not suicidal and will return to [facility] today.
--- NOTE | 2024-09-28 12:26 | PC.NURSE ---
[facility] NOTIFIED OF TRANSFER BACK TO [facility]
--- NOTE | 2024-09-28 12:29 | PC.NURSE ---
spoke with EMS regarding transfer
--- NOTE | 2024-09-28 12:45 | PC.NURSE ---
Gave report to [place] @ [facility]
--- NOTE | 2024-09-28 13:15 | PC.NURSE ---
Pt's dc back to SNF is delayed d/t [facility] out on multiple calls. Pt updated with this.
--- NOTE | 2024-09-28 14:30 | PC.NURSE ---
[facility] at nursing station, gave report to them, however prior to pt being loaded- EMS called out to another call. Will await for this round to clear.
--- NOTE | 2024-09-28 14:59 | PC.NURSE ---
[facility] at bedside and transferred to ems stretcher.
== END 2024-09-28 15:01 ==
PROVIDERS: Emergency Provider Emergency Medicine; PCP Internal Medicine Adolescent Medicine
DX: Z00.8 Encounter for other general examination (principal); R45.851 Suicidal ideations; F91.9 Conduct disorder, unspecified
CPT/HCPCS: 99284

== ENCOUNTER 2024-10-06 14:08 | Outpatient (POV) | payer MEDICARE, MEDICAID, SELFPAY ==
--- NOTE | 2024-10-06 14:32 | A.OFFVIS_ITS ---
[facility] Disclaimer: The information contained in this section may have been updated after the patient was seen, as this information can be updated by other users. Medical History Physical debility Neurogenic bladder Generalized anxiety disorder New onset seizure Osteoporosis History of hypertension Hyperlipidemia GERD (gastroesophageal reflux disease) Depression Surgical History H/O kyphoplasty H/O tubal ligation H/O thyroidectomy Hx of appendectomy Family History Other No significant family history Social History Smoking Status: Unknown if ever smoked second hand exposure: No alcohol intake: never counseling provided: none substance use type: denies use current occupational status: other Travel in the last 8 weeks: None household members: spouse housing: house lives independently: No marital status: number of children: 2 current occupational exposures/hazards: No caffeine: Yes PM Subjective & Objective Subjective Subjective:: Patient is a pleasant 64-year-old female who presents today for worsening pain. She rates it a 8 out of 10. She denies any new falls or injuries. She does state from her last visit she did have a episode of shingles that popped up on her left shoulder coming up towards her neck. She states it has fully resolved and is doing much better. She states is all across her buttocks and tailbone area that does radiate down into her legs. Patient states it is constant and has continued to get more more severe over the last several months. She states that she has tried everything due to the worsening pain. Patient has used pillows for positioning and [id number] medication as well as her prescribed medicines there at the [facility]. Patient states due to her limited mobility and having to stay in the motorized wheelchair and just seems to really aggravate that overall buttocks and tailbone pain. Patient states that even when she is lying down in bed it is very uncomfortable and is affecting her sleeping. Patient states that the pain does interfere with her ability perform activities of daily living such as cooking and cleaning. Patient is still at [facility]. At our last visit we did order physical therapy to be done here at the hospital however she states she has not heard anything on this. Her Claus has been reviewed and is appropriate. Review of Systems: General: No recent weight changes, no fever, no sleep disturbances Respiratory: No cough, no shortness of air, no recurring pulmonary infections Cardiovascular/peripheral vascular: No chest pain, no palpitations, no edema, no shortness of breath Gastrointestinal: No new onset incontinence, normal bowel movements reported Genitourinary: No new onset incontinence Musculoskeletal: Buttocks/tailbone pain, leg pain, leg weakness Psychiatric: [Normal mood/affect] Neurological: [Denies weakness in extremities], [denies balance issues] Pain at rest (0-10 scale): 8 Objective Objective:: Physical Exam: General: Alert and oriented x3, no acute distress, pleasant and cooperative Lungs: Respirations even and unlabored, symmetrical chest expansion Eyes: PERRL Musculoskeletal: Flexion and extension of sacrum [spine] somewhat guarded secondary to pain, [antalgic gait noted] point tenderness along the lower sacrum spine Neurological: Speech clear, no gross sensory deficit Has patient had previous pain injection?: No Conservative treatment options previously tried: Home exercise plan Length of treatment: Longer than 12 weeks Meds Home Medications and Allergies Home Medications ?Medication ?Instructions ?Recorded ?Confirmed ?Type cyanocobalamin (vitamin B-12) 1,000 mcg IM MONTHLY 11/04/18 09/27/24 History 1,000 mcg/mL injection solution cholecalciferol (vitamin D3) 50 25 mcg PO DAILY 10/11/19 09/27/24 History mcg (2,000 unit) tablet levothyroxine 200 mcg tablet 200 mcg PO DAILY 02/14/23 09/27/24 History omeprazole 40 mg capsule,delayed 40 mg PO DAILY 02/14/23 09/27/24 History release linaclotide 145 mcg capsule 145 mcg PO DAILY #30 caps 09/21/24 09/27/24 Rx (Linzess) acetaminophen 500 mg tablet 1,000 mg PO Q6HP PRN Mild Pain 09/27/24 09/27/24 History (Scale Score 1-4) cefdinir 300 mg capsule 300 mg PO BID 5 days #10 caps 09/27/24 Rx dantrolene 50 mg capsule 50 mg PO TID 09/27/24 09/27/24 History diclofenac sodium 1 % topical gel 1 ea topical Q6HP PRN JOINT PAIN 09/27/24 09/27/24 History diphenhydramine HCl 25 mg tablet 25 mg PO TIDP PRN Itching 09/27/24 09/27/24 History gabapentin 400 mg capsule 400 mg PO TID 09/27/24 09/27/24 History hydrocodone 5 mg-acetaminophen 325 1 tab PO Q6HP PRN Moderate Pain 09/27/24 09/27/24 History mg tablet (Scale Score 5-6) lactulose 10 gram/15 mL oral 20 g PO DAILYP PRN Constipation 09/27/24 09/27/24 History solution levetiracetam 500 mg tablet 500 mg PO BID 09/27/24 09/27/24 History melatonin 3 mg tablet 6 mg PO HS 09/27/24 09/27/24 History midodrine 5 mg tablet 5 mg PO BID 09/27/24 09/27/24 History multivit with minerals-iron 18 1 tab PO DAILY 09/27/24 09/27/24 History mg-folic ac 400 mcg-vit K 25 mcg tablet (Adults Multivitamin) polyethylene glycol 3350 17 17 g PO DAILY 09/27/24 09/27/24 History gram/dose oral powder prednisone 20 mg tablet 40 mg (2 x 20 mg) PO DAILY 5 days 09/27/24 Rx #10 tabs sennosides 8.6 mg-docusate sodium 1 tab PO HS 09/27/24 09/27/24 History 50 mg tablet (Stimulant Laxative Plus) sertraline 100 mg tablet 150 mg PO DAILY 09/27/24 09/27/24 History sulfamethoxazole 800 1 tab PO BID 5 days #10 tabs 09/27/24 Rx mg-trimethoprim 160 mg tablet (Bactrim DS) tizanidine 2 mg capsule 2 mg PO BID 09/27/24 09/27/24 History trazodone 50 mg tablet 50 mg PO HS 30 days #30 tabs 09/27/24 Rx New Prescriptions to Start Prescriptions: Allergies Allergy/AdvReac Type Severity Reaction Status Date / Time metoclopramide (From REGLAN) Allergy Mild I-RASH Verified 08/31/24 18:32 Sulfa (Sulfonamide Allergy Mild I-RASH Verified 08/31/24 18:32 Antibiotics) (SULFA (SULFONAMIDE ANTIBIOTICS)) morphine Allergy Vomiting Verified 08/31/24 18:32 Assessment and Plan *Assessment and plan (1) Buttock pain: Status: Acute Category: Medical Code(s): M79.18 - Myalgia, other site (2) Coccygeal pain: Status: Acute Category: Medical Code(s): M53.3 - Sacrococcygeal disorders, not elsewhere classified (3) Lumbar radiculopathy: Status: Acute Category: Medical Code(s): M54.16 - Radiculopathy, lumbar region Plan Patient is experiencing significant pain in her buttocks and tailbone area with point tenderness and limited range of motion. Patient does have radiating symptoms down into her lower extremities. Patient has tried and failed conservative therapy including oral medications, heat and ice, topicals, pillows for positioning and continued at home stretching exercise for longer than 12 weeks. This pain has been going on for longer than 3 months. I did discuss wit h the patient that I do believe she would benefit from a caudal epidural. Risk and benefits were discussed with the patient and she would like to proceed forward with this plan of care. Patient is not on any blood thinners. I will also order physical therapy again for her low back, buttocks, tailbone and leg symptoms. Patient will be scheduled for a caudal epidural under fluoroscopy. Patient has been instructed to contact the clinic with any concerns before the next appointment. Dr. Robledo has reviewed this note and agrees with this plan of care. This note was dictated using voice recognition software and make contain errors or omissions. All injections are used with Lidocaine, Bupivacaine and Depo Medrol. Occasionally urine drug screen is needed to verify patient's compliance with our office pain contract. This is ordered based off specific treatments related to chronic pain with the potential to abuse certain medications.
[2024-10-06 15:32] VITALS: BP 107/67; PULSE 97; RESP 14; O2SAT 93; BMI 22.1
== END 2024-10-06 23:59 | disposition home or self-care (01) ==
PROVIDERS: PCP Internal Medicine Adolescent Medicine; Visit Provider Nurse Practitioner Family
DX: M54.16 Radiculopathy, lumbar region (principal); M79.18 Myalgia, other site; M53.3 Sacrococcygeal disorders, not elsewhere classified; Z73.89 Other problems related to life management difficulty; Z79.899 Other long term (current) drug therapy
CPT/HCPCS: 99212; G0463

== ENCOUNTER 2024-10-07 11:36 | Emergency (ER) | payer MEDICARE, MEDICAID, SELFPAY ==
[2024-10-07] VITALS (26 sets, daily range): BP systolic 93–126; BP diastolic 55–80; PULSE 75–116; RESP 18; TEMP 36.7–36.8; O2SAT 91–98; BMI 22.1
--- NOTE | 2024-10-07 12:10 | PC.NURSE ---
Vance PRATT at bedside
--- NOTE | 2024-10-07 12:30 | CT_ITS ---
FINAL REPORT TECHNIQUE: After the administration of intravenous contrast, axial images were obtained through the abdomen and pelvis by computed tomography. The study was performed with techniques to keep radiation dose as low as reasonably achievable, (ALARA). Individual dose reduction techniques using automated exposure control or adjustment of mA and/or kV according to the patient's size were employed. CLINICAL HISTORY: ABD pain, indwelling suprapubic catheter, COMPARISON: 09/27/2024 FINDINGS: Abdomen: There are patchy bibasilar airspace infiltrates, increased in size at the left base. The liver parenchyma is homogeneous. The gallbladder is present. The spleen is enlarged measuring 15 cm in craniocaudal dimension. The liver is enlarged measuring 19 cm in craniocaudal dimension. Pancreas, adrenals and kidneys appear unremarkable. The aorta is normal in caliber. There is no free fluid or adenopathy. Pelvis: The appendix is not identified. There is a suprapubic catheter within a distended urinary bladder. Stones and debris are seen in the dependent portion of the urinary bladder. There is a small air-fluid level in the urinary bladder. There is no free fluid or adenopathy. IMPRESSION: Stone and debris within the urinary bladder. Suprapubic catheter present. Hepatosplenomegaly. Bibasilar airspace infiltrates. Reviewed, Interpreted and Dictated by Sidney Oneil MD Transcribed by Linda Jackson Authenticated and [facility]
--- NOTE | 2024-10-07 12:30 | PC.NURSE ---
Called pt's per request to let him know she is here.
[2024-10-07 12:38] LABS: Microscopic, Urine URINE MICROSCOPIC (MICROSCOPIC)
[2024-10-07 12:39] LABS: Appearance,Urine CLOUDY (Clear); Bilirubin,Urine Negative (Negative); Blood, Urine 2+ (Negative); Color,Urine YELLOW (Yellow); Glucose,Urine (UA) Negative (Negative); Ketones,Urine Negative (Negative); Leukocyte Esterase,Urine 1+ (Negative); Nitrate,Urine POSITIVE (Negative); Protein,Urine 1+ (Negative)
--- NOTE | 2024-10-07 12:44 | ED_ITS ---
<Statement entered by Felicia Garcia MD - 10/11/24 22:54> I was consulted by the KEAGAN, and we discussed the complexity of the problems being addressed. I approved the treatment and management plan for this patient's care in the emergency department, thus performing a substantive portion of the medical decision making. Felicia Garcia MD, STIVEN, FACEP Discharge Plan Disposition Patient Disposition: Home, Self-Care Condition: Good Prescriptions Prescriptions: New meropenem-0.9% sodium chloride 1 gram/50 mL piggyback 1 g IV Q8H 7 Days No Action cyanocobalamin (vitamin B-12) 1,000 mcg/mL solution 1,000 mcg IM MONTHLY cholecalciferol (vitamin D3) 50 mcg (2,000 unit) tablet 25 mcg PO DAILY omeprazole 40 mg capsule,delayed release(DR/EC) 40 mg PO DAILY Patient Comments: TAKE 1 CAPSULE BY MOUTH ONCE DAILY levothyroxine 200 mcg tablet 200 mcg PO DAILY Patient Comments: TAKE 1 TABLET BY MOUTH ONCE DAILY Linzess 145 mcg capsule 145 mcg PO DAILY Qty: 30 0RF levetiracetam 500 mg tablet 500 mg PO BID sennosides-docusate sodium [Stimulant Laxative Plus] 8.6-50 mg tablet 1 tab PO HS dantrolene 50 mg Capsule 50 mg PO TID gabapentin 400 mg capsule 400 mg PO TID midodrine 5 mg tablet 5 mg PO BID melatonin 3 mg tablet 6 mg PO HS acetaminophen 500 mg Tablet 1,000 mg PO Q6HP PRN (Reason: Mild Pain (Scale Score 1-4)) diphenhydramine HCl 25 mg Tablet 25 mg PO TIDP PRN (Reason: Itching) polyethylene glycol 3350 17 gram/dose powder 17 g PO DAILY lactulose 10 gram/15 mL Solution 20 g PO DAILYP PRN (Reason: Constipation) tizanidine 2 mg capsule 2 mg PO BID diclofenac sodium 1 % Gel 1 ea TOPICAL Q6HP PRN (Reason: JOINT PAIN) Rx Instructions: apply to single elbow, wrist or hand; for hand includes palm/fingers/back of hand Adults Multivitamin 18 mg iron-400 mcg-25 mcg Tablet 1 tab PO DAILY hydrocodone-acetaminophen 5-325 mg tablet 1 tab PO Q6HP PRN (Reason: Moderate Pain (Scale Score 5-6)) sertraline 100 mg tablet 150 mg PO DAILY sulfamethoxazole-trimethoprim [Bactrim DS] 800-160 mg tablet 1 tab PO BID 5 Days Qty: 10 0RF prednisone 20 mg tablet 40 mg PO DAILY 5 Days Qty: 10 0RF trazodone 50 mg tablet 50 mg PO HS 30 Days Qty: 30 0RF Referrals Follow up/Referrals: Luis Henderson MD [Primary Care Provider] - See instructions Activity Restrictions/Add. Instructions Additional Instructions/Restrictions: Return to the emergency department any worsening signs or symptoms, continue with PICC line management/care, with meropenem 1 g IV Q8, for 7 to 10 days at residential facility. Duration is going to be pending urinalysis/urine culture and sensitivity/patient response to therapy follow-up with urology. Continue to keep indwelling Gastelum. Clinical Impressions Clinical Impression: Bladder distension, Acute UTI, H/O urinary retention, Status post peripherally inserted central catheter (PICC) central line placement Instructions Patient Instructions: DI for Urinary Tract Infection (UTI), DI for Urinary Tract Infection in Children, Peripherally Inserted Central Catheter, Peripherally Inserted Central Catheter Infections, DI for Urinary Retention in Women, DI for Extended Spectrum Beta-Lactamase Infection, Catheter-Associated Urinary Tract Infection Print Language Print Language: Cape Verdean Discharge ED Provider: Felicia Garcia General Adult HPI General Chief complaint: Urogenital-Female Stated complaint: CATHETER COMPLICATION Time Seen by Provider: 10/07/24 12:21 Mode of Arrival: EMS Source of Information: Patient Limitations: Physical Limitations Description of Symptoms (Recalled from ER Triage Doc. by RN): Reports that her suprapubic catheter is flushing but is not draining. History of Present Illness HPI narrative: 64-year-old female presents the emergency department from her residential facility for issues with her suprapubic catheter for which she has place for neurogenic bladder patient has cerebral palsy, per patient and residential records the catheter is flushing but not draining . She has a leg bag for this suprapubic catheter bag attached that is quite full at the bedside. She endorses abdominal pain and abdominal pressure/distention along with dysuria, she states she saw her urologist last Friday at urology and had the suprapubic catheter changed, recently seen in the emergency department around 1 week ago for similar complaint, she denies any real hematuria, she admits to some leaking of her catheter, had suprapubic catheter placed in 2023. Denies any nausea vomiting constipation diarrhea, hematuria, denies any fever chills cough congestion chest pain shortness of breath. Other past medical history consistent with behavioral disturbance, IBS, patient appears to be at her neurological baseline, afebrile, denies a history of substance use, triage vitals within normal limits. Of note she is on Bactrim p.o. for urine analysis culture results performed on 09/27/2024 to take medication as prescribed. Related Data Home Medications ?Medication ?Instructions ?Recorded ?Confirmed cyanocobalamin (vitamin B-12) 1,000 mcg IM MONTHLY 11/04/18 10/07/24 1,000 mcg/mL injection solution cholecalciferol (vitamin D3) 50 25 mcg PO DAILY 10/11/19 10/07/24 mcg (2,000 unit) tablet levothyroxine 200 mcg tablet 200 mcg PO DAILY 02/14/23 10/07/24 omeprazole 40 mg capsule,delayed 40 mg PO DAILY 02/14/23 10/07/24 release acetaminophen 500 mg tablet 1,000 mg PO Q6HP PRN Mild Pain 09/27/24 10/07/24 (Scale Score 1-4) dantrolene 50 mg capsule 50 mg PO TID 09/27/24 10/07/24 diclofenac sodium 1 % topical gel 1 ea topical Q6HP PRN JOINT PAIN 09/27/24 10/07/24 diphenhydramine HCl 25 mg tablet 25 mg PO TIDP PRN Itching 09/27/24 10/07/24 gabapentin 400 mg capsule 400 mg PO TID 09/27/24 10/07/24 hydrocodone 5 mg-acetaminophen 325 1 tab PO Q6HP PRN Moderate Pain 09/27/24 10/07/24 mg tablet (Scale Score 5-6) lactulose 10 gram/15 mL oral 20 g PO DAILYP PRN Constipation 09/27/24 10/07/24 solution levetiracetam 500 mg tablet 500 mg PO BID 09/27/24 10/07/24 melatonin 3 mg tablet 6 mg PO HS 09/27/24 10/07/24 midodrine 5 mg tablet 5 mg PO BID 09/27/24 10/07/24 multivit with minerals-iron 18 1 tab PO DAILY 09/27/24 10/07/24 mg-folic ac 400 mcg-vit K 25 mcg tablet (Adults Multivitamin) polyethylene glycol 3350 17 17 g PO DAILY 09/27/24 10/07/24 gram/dose oral powder sennosides 8.6 mg-docusate sodium 1 tab PO HS 09/27/24 10/07/24 50 mg tablet (Stimulant Laxative Plus) sertraline 100 mg tablet 150 mg PO DAILY 09/27/24 10/07/24 tizanidine 2 mg capsule 2 mg PO BID 09/27/24 10/07/24 Previous Rx's ?Medication ?Instructions ?Recorded linaclotide 145 mcg capsule 145 mcg PO DAILY #30 caps 09/21/24 (Linzess) prednisone 20 mg tablet 40 mg (2 x 20 mg) PO DAILY 5 days 09/27/24 #10 tabs sulfamethoxazole 800 1 tab PO BID 5 days #10 tabs 09/27/24 mg-trimethoprim 160 mg tablet (Bactrim DS) trazodone 50 mg tablet 50 mg PO HS 30 days #30 tabs 09/27/24 meropenem 1 gram/50 mL in 0.9% 1 g IV Q8H 7 days 10/07/24 sodium chloride intravenous piggyback Allergies Allergy/AdvReac Type Severity Reaction Status Date / Time metoclopramide (From REGLAN) Allergy Mild I-RASH Verified 10/07/24 15:09 Sulfa (Sulfonamide Allergy Mild I-RASH Verified 10/07/24 15:09 Antibiotics) (SULFA (SULFONAMIDE ANTIBIOTICS)) morphine Allergy Vomiting Verified 10/07/24 15:09 PFSH PFSH Disclaimer: The information contained in this section may have been updated after the patient was seen, as this information can be updated by other users. Medical History Physical debility Neurogenic bladder Generalized anxiety disorder New onset seizure Osteoporosis History of hypertension Hyperlipidemia GERD (gastroesophageal reflux disease) Depression Surgical History H/O kyphoplasty H/O tubal ligation H/O thyroidectomy Hx of appendectomy Family History Other No significant family history Social History (Updated 10/07/24 @ 17:13 by Taylor Prado RN) Smoking Status: Unknown if ever smoked second hand exposure: No alcohol intake: never counseling provided: none substance use type: denies use current occupational status: other Travel in the last 8 weeks: None household members: spouse housing: house lives independently: No marital status: number of children: 2 current occupational exposures/hazards: No caffeine: Yes Have you lived/traveled outside [place] in past 30 days?: No Contact w/someone who lives/traveled outside US past 30 days?: No Exposure to someone with infectious disease in past 14 days?: No Do you have a fever (greater than 100.4 F or 38 C)?: No Have you tested positive for COVID-19: No Exposed to someone with COVID-19 in past 14 days?: No Do you have a sore throat?: No Do you have a cough?: No Do you have any weakness?: No Do you have any diarrhea?: No Are you experiencing any unusual bleeding?: No Do you have any muscle aches/pain?: No Do you have any abdominal pain?: No Are you experiencing loss of taste or smell?: No Other Medical History Have you received the Flu Vaccine for this season: Yes Have you received the Pneumonia Vaccine: Yes ROS Obtained: Yes All systems reviewed & no additional complaints except as documented Physical Exam General General appearance: alert and in no apparent distress Head Head exam: atraumatic and normocephalic Eye Eye exam: Present PERRL and EOMI ENT ENT exam: Present mucous membranes moist Neck Neck exam: Present normal inspection Chest Chest inspection: Present normal inspection and symmetric chest wall rise Respiratory Respiratory exam: Present normal lung sounds bilaterally; Absent respiratory distress Cardiovascular Cardiovascular exam: Present regular rate and normal rhythm Abdominal Exam Abdominal exam: Present soft, distention and tenderness; Absent guarding, rebound or rigidity Abdominal tenderness: Present mild Comment: Mild abdominal distention with mild abdominal tenderness to the suprapubic/lower abdominal region, with indwelling suprapubic catheter, no erythema around the suprapubic catheter area, no drainage Extremities Exam Extremities exam: Present normal inspection Neurological Exam Neurological exam: Present alert, oriented X3 and other (Ongoing cerebral palsy, appears to be at neurological baseline) Psychiatric Psychiatric exam: Present normal affect Skin Skin exam: Present warm and dry Medical Decision Making Medical Records Medical records reviewed: Yes I reviewed the patient's medical records. Screening: Per USPSTF and CDC recommendations, given the prevalence of disease in our region, it is our hospital?s policy to screen for HIV and viral Hepatitis for all patients aged 18 and over and those with ongoing risk factors. Claus Inquiry Pt receiving controlled substance: No Claus was queried for this patient: No Vital Signs: 10/07/24 11:36 10/07/24 11:51 10/07/24 12:31 Temperature 98.0 F Temperature Source Oral Pulse Rate 93 H 99 H Pulse Rate [Radial] 94 H Respiratory Rate 18 Blood Pressure 126/80 114/64 Blood Pressure [Right Arm] 110/65 Blood Pressure Mean [Right Arm] 80 Blood Pressure Source [Right Arm] Automatic Cuff Blood Pressure Position [Right Arm] Supine 02 Sat by Pulse Oximetry 92 L 95 94 L Oxygen Delivery Method Room Air Room Air Room Air 10/07/24 13:00 10/07/24 13:15 10/07/24 13:30 Temperature Temperature Source Pulse Rate 99 H 90 92 H Pulse Rate [Radial] Respiratory Rate Blood Pressure 108/67 L 107/70 L 109/64 L Blood Pressure [Right Arm] Blood Pressure Mean [Right Arm] Blood Pressure Source [Right Arm] Blood Pressure Position [Right Arm] 02 Sat by Pulse Oximetry 94 L 95 95 Oxygen Delivery Method Room Air 10/07/24 14:00 10/07/24 14:15 10/07/24 14:30 Temperature Temperature Source Pulse Rate 88 87 92 H Pulse Rate [Radial] Respiratory Rate Blood Pressure 108/61 L 96/58 L 119/72 Blood Pressure [Right Arm] Blood Pressure Mean [Right Arm] Blood Pressure Source [Right Arm] Blood Pressure Position [Right Arm] 02 Sat by Pulse Oximetry 93 L 95 94 L Oxygen Delivery Method Room Air Room Air Room Air 10/07/24 14:45 10/07/24 15:00 10/07/24 15:15 Temperature Temperature Source Pulse Rate 86 112 H 106 H Pulse Rate [Radial] Respiratory Rate Blood Pressure 106/66 L 122/79 122/67 Blood Pressure [Right Arm] Blood Pressure Mean [Right Arm] Blood Pressure Source [Right Arm] Blood Pressure Position [Right Arm] 02 Sat by Pulse Oximetry 96 96 95 Oxygen Delivery Method Room Air Room Air Room Air 10/07/24 15:30 10/07/24 15:46 10/07/24 16:00 Temperature Temperature Source Pulse Rate 101 H 100 H 106 H Pulse Rate [Radial] Respiratory Rate Blood Pressure 117/70 105/61 L 114/63 Blood Pressure [Right Arm] Blood Pressure Mean [Right Arm] Blood Pressure Source [Right Arm] Blood Pressure Position [Right Arm] 02 Sat by Pulse Oximetry 96 98 95 Oxygen Delivery Method Room Air Room Air Room Air 10/07/24 16:15 10/07/24 16:30 10/07/24 16:45 Temperature Temperature Source Pulse Rate 112 H 96 H 97 H Pulse Rate [Radial] Respiratory Rate Blood Pressure 125/69 98/65 L 93/58 L Blood Pressure [Right Arm] Blood Pressure Mean [Right Arm] Blood Pressure Source [Right Arm] Blood Pressure Position [Right Arm] 02 Sat by Pulse Oximetry 96 95 95 Oxygen Delivery Method Room Air Room Air Room Air 10/07/24 17:00 10/07/24 17:15 Temperature Temperature Source Pulse Rate 99 H 107 H Pulse Rate [Radial] Respiratory Rate Blood Pressure 99/62 L 98/55 L Blood Pressure [Right Arm] Blood Pressure Mean [Right Arm] Blood Pressure Source [Right Arm] Blood Pressure Position [Right Arm] 02 Sat by Pulse Oximetry 95 96 Oxygen Delivery Method Room Air Room Air Lab Data Lab Results 10/07/24 12:33: Urine Color Yellow, Urine Appearance Cloudy, Urine pH 8.0, Ur Specific [place] 1.020, Urine Protein 1+ A, Urine Glucose (UA) Negative, Urine Ketones Negative, Urine Blood 2+ A, Urine Nitrate Positive A, Urine Bilirubin Negative, Urine Urobilinogen 1.0, Ur Leukocyte Esterase 1+ A, Urine RBC 10-20, Urine WBC 5-10, Ur Squamous Epith Cells 3-5, Urine Bacteria 2+ 10/07/24 13:09: WBC 6.4, RBC 4.11 L, Hgb 10.7 L, Hct 33.8 L, MCV 82.2, MCH 26.0 L, MCHC 31.7 L, RDW 15.9, Plt Count 206, MPV 10.3, Neut % (Auto) 76.5, Lymph % (Auto) 14.0, Sullivan % (Auto) 5.8, Eos % (Auto) 2.8, Baso % (Auto) 0.3, Neut # (Auto) 4.9, Lymph # (Auto) 0.9, Sullivan # (Auto) 0.4, Eos # (Auto) 0.2, Baso # (Auto) 0.0, Sodium 138, Potassium 4.3, Chloride 108 H, Carbon Dioxide 25, Anion Gap 9.3, BUN 19 H, Creatinine 0.30 L, Estimated Creat Clear 54, Estimated GFR 223, Est GFR ( Amer) 269, Glucose 100, Calcium 8.4, Total Bilirubin 0.5, AST 23, ALT 12, Alkaline Phosphatase 70, Total Protein 6.1 L, Albumin 3.2 L, Globulin 2.9, Albumin/Globulin Ratio 1.1 10/07/24 13:09 10/07/24 13:09 Orders (Tests/Meds): ED MEDICATIONS Generic Name Dose Route Start Last Admin Trade Name Freq PRN Reason Stop Dose Admin Meropenem 1 gm/ Sodium 100 mls @ 100 mls/hr 10/07/24 14:30 10/07/24 14:35 Chloride IV 10/17/24 14:29 100 mls/hr Q8H ROWAN Administration Sodium Chloride 10 ml 10/07/24 16:53 Sodium Chloride 0.9% 10ml Flush Syringe IV 10/08/24 16:54 NEEDED PRN Maintain IV Site Discontinued Medications Generic Name Dose Route Start Last Admin Trade Name Freq PRN Reason Stop Dose Admin Iopamidol 75 ml 10/07/24 13:51 10/07/24 13:52 Iopamidol-370 (76%);100ml Bottle IV 10/07/24 13:52 75 ml ONCE ONE Administration Sodium Chloride 10 ml 10/07/24 13:51 10/07/24 13:52 Sodium Chloride 0.9% 10ml Syr (Rad Only) IV 10/07/24 13:52 10 ml ONCE ONE Administration ORDERS Category Date Time Status CT abdomen pelvis w con Stat Cat Scan 10/07/24 12:30 Completed XR chest portable PICC plac Routine Exams 10/07/24 16:54 Completed CMP [Comprehensive Metabolic Panel] Stat Lab 10/07/24 13:09 Completed Complete Blood Count Auto Diff Stat Lab 10/07/24 13:09 Completed Urinalysis and Microscopic Stat Lab 10/07/24 12:33 Completed Urine Culture Stat Micro 10/07/24 12:33 Received Medical Decision Narrative: 64-year-old female presents the emergency department with a suprapubic catheter issue, differential diagnose include not limited to, catheter malfunction, acute UTI, acute pyelonephritis, acute kidney injury, urinary outflow obstruction. Obtain basic laboratory studies urinalysis and obtain CT abdomen pelvis with contrast and perform catheter care via nursing staff. Urinalysis notable for 2+ hematuria, positive nitrite, 1+ leukocyte esterase CBC unremarkable with the exception of chronic anemia,, CMP is notable for minimal BUN elevation at 19, creatinine within normal limits. I reviewed patient's culture and sensitivity that was performed of the patient's urine on 09/27/2024, patient has E. coli, with extended beta-lactamase multidrug-resistant organisms, susceptible to meropenem, she is currently on Bactrim p.o. antibiotic, this would be failure of outpatient treatment, will start IV 1 g meropenem based on culture and susceptibility from previous urine formed on 09/27/2024. Will also perform In-N-Out catheter to decompress the patient's urinary bladder. Discussed with patient at the bedside, will need urology consultation, patient follows with [facility], however [facility] is currently on divert at this time. Will reach out to [facility] for urology consultation. Reached out to [facility], unfortunately do not have urology average at this time, will reach out to [facility], I discussed this with [facility] transfer team at approximately 2:58 PM, call me back with urology consultation. I reviewed the patient's CT abdomen pelvis with contrast along the corresponding radiologic report stone and debris's within the urinary bladder suprapubic catheter present, hepatosplenomegaly, bibasilar airspace infiltrates. Discussed this patient's case with Dr. Kasper of the urology team at [facility] at 3:40 PM, he recommends continue to place indwelling Gastelum catheter, continue with suprapubic catheter as long as the patient is not retaining urine anymore no need for potential transfer, follow-up with urology for suprapubic management. Discussed this patient's case with 4:37 PM, he is agreement with current admission plan/treatment plan for IV antibiotics for ESBL UTI, will requiring Gastelum for urinary catheter management at this time due to suprapubic obstruction. Patient family agree with current mission plan/treatment plan. I discussed this patient's case yet again with the hospitalist physician Dr. Bruno at 4:57 PM, we do have a PICC line nurse/PICC line team here in the hospital today, will place PICC line, forego observation admission for IV antibiotics with acute UTI, and will transition patient to outpatient therapy with the meropenem and Gastelum catheter for urinary retention will have patient initiate follow-up with urology clinic for indwelling suprapubic catheter. PICC line placed by the PICC line nurse team, post procedural chest x-ray was reviewed by myself and the attending physician, PICC line is in place. Will discharge patient back to residential facility with Gastelum catheter and IV meropenem administration through PICC line. Strict ED return precautions were discussed with the patient family the bedside patient and family care with current treatment plan/discharge plan. Patient will follow-up with urology as directed. Reviewed the patient's chest x-ray along the corresponding radiologic report, tube, catheters and devices left-sided PICC catheter identified with the tip at the SVC, there are no other acute infiltrates. Critical Care Critical Care Time Critical Care Time: No
[2024-10-07 12:58] LABS: Bacteria,Urine 2+ /lpf
[2024-10-07 13:15] LABS: Basophils % 0.3 % (0.1-2.0); Eosinophils # 0.2 K/mm3 (0.0-0.4); Eosinophils % 2.8 % (0.1-12.0); Hematocrit 33.8 % (37.0-47.0); Hemoglobin 10.7 g/dL (12.2-16.2); Lymphocytes # 0.9 K/mm3 (0.7-4.5); Mean Corpuscular HGB Conc 31.7 g/dL (31.8-35.4); Mean Corpuscular Volume 82.2 fl (81-99); Mean Platelet Volume 10.3 fl (7.4-10.4); Monocytes # 0.4 K/mm3 (0.1-1.0); Monocytes % 5.8 % (1.7-9.3); Neutrophils # 4.9 K/mm3 (1.8-7.8); Neutrophils % 76.5 % (37.0-80.0); Platelet Count 206 K/mm3 (142-424); Red Blood Count 4.11 M/mm3 (4.20-5.40); Red Cell Distribution Width 15.9 % (11.5-17.5); White Blood Count 6.4 K/mm3 (4.8-10.8)
[2024-10-07 13:30] LABS: Albumin Level 3.2 g/dl (3.5-5.0); Chloride 108 mmol/L (98-107); Potassium 4.3 mmoL/L (3.5-5.1); Sodium 138 mmol/L (136-145)
[2024-10-07 13:32] LABS: Blood Urea Nitrogen 19 mg/dl (7-17); Creatinine Clearance Estimated 54 mL/min (50-200); Estimated Glomerular Filt Rate 223 ml/min (>60); GFR (African American) 269 ML/MIN (>60)
[2024-10-07 13:33] LABS: Alanine Aminotransferase 12 U/L (12-78); Albumin/Globulin Ratio 1.1 (1.1-1.8); Alkaline Phosphatase 70 U/L (38-126); Anion Gap 9.3 mEq/L (5-15); Aspartate Amino Transferase 23 U/L (14-36); Bilirubin,Total 0.5 mg/dl (0.2-1.3); Calcium 8.4 mg/dl (8.4-10.2); Carbon Dioxide 25 mmol/L (22.0-30.0); Globulin 2.9 g/dL (1.3-3.2); Glucose 100 mg/dl (74-100); Total Protein,Serum 6.1 g/dl (6.3-8.2)
--- NOTE | 2024-10-07 13:39 | PC.NURSE ---
PT TO CT
[2024-10-07] MEDS: SODIUM CHLORIDE 0.9% 10ML SYR (RAD ONLY) 10 ML IV (13:52)
[2024-10-07] MEDS: IOPAMIDOL-370 (76%);100ML BOTTLE 75 ML IV (13:52)
--- NOTE | 2024-10-07 14:28 | PC.NURSE ---
Call out to [facility] access center for possible trasnfer to [facility]
[2024-10-07] MEDS: MEROPENEM 1 GM in 0.9 % SODIUM CHLORIDE 100 ML IV (14:35)
--- NOTE | 2024-10-07 14:44 | PC.NURSE ---
[facility] has no urology coverage at this time; attempting to transfer to [facility]
--- NOTE | 2024-10-07 14:56 | PC.NURSE ---
Beena Reilly speaking with [facility] urologist.
--- NOTE | 2024-10-07 15:04 | PC.NURSE ---
@ 1435 performed in/out cath to drain bladder. Used 14fr jacobs, pt tolerated well, and yielded 1,100ml of straw, cloudy, purulent, and sediment urine. S/P cath still slowly draining at this time in the leg bag.
--- NOTE | 2024-10-07 15:20 | PC.NURSE ---
Called [facility] to check on status of Urology call back, states Dr. Kasper is aware of consult and will call soon.
--- NOTE | 2024-10-07 15:43 | PC.NURSE ---
[facility] PRATT s/w Dr. Kasper with [facility].
--- NOTE | 2024-10-07 16:40 | PC.NURSE ---
Dr. Bruno returned call to Vance PRATT. agrees to admit. Attempted to call house mover helper but no answer.
--- NOTE | 2024-10-07 16:50 | PC.NURSE ---
Pt & updated about admission here and POC.
--- NOTE | 2024-10-07 16:54 | XR_ITS ---
PROCEDURE INFORMATION: Exam: XR Chest Exam date and time: 10/07/2024 6:00 PM Age: 64 years old Clinical indication: Device placement; Picc; Additional info: Confirm picc line placement TECHNIQUE: Imaging protocol: Radiologic exam of the chest. Views: 1 view. COMPARISON: CT ANGIO CHEST PE PROTOCOL 09/27/2024 6:55 AM FINDINGS: Tubes, catheters and devices: Left-sided PICC catheter identified with tip SVC RA junction. Lungs: No acute infiltrates.. Pleural spaces: Unremarkable. No pleural effusion. No pneumothorax. Heart/Mediastinum: Unremarkable. No cardiomegaly. Vasculature: Tortuous aorta identified. Bones/joints: Unremarkable. IMPRESSION: No acute infiltrates..
--- NOTE | 2024-10-07 17:23 | PC.NURSE ---
Gabriel Benavides RN at bedside to place PICC line.
--- NOTE | 2024-10-07 17:55 | PC.NURSE ---
Called radiology to notify pt is ready for post picc line insertion confirmation placement.
--- NOTE | 2024-10-07 18:15 | PC.NURSE ---
KEAGAN & Dr. Cervantes reviewed CXR and states PICC line in good position and ok to use. Thus pt will go back to [facility]. Pt will need EMS transportation and [facility] notified but unfortunately are in the process of beginning to transport another pt. Therefore there will be a delay in going to [facility]. Pt & updated with this information.
--- NOTE | 2024-10-07 18:40 | PC.NURSE ---
Called report to [facility]. Let them know pt will need Meropenum 1g IV qh to PICC next dose is 2230. They do have this available in the med cart to give. d/c education reviewed with pt & her .
--- NOTE | 2024-10-07 19:26 | PC.NURSE ---
Contacted [facility] in regards to transferring this pt back to [facility]
--- NOTE | 2024-10-07 19:37 | PC.NURSE ---
rounded on pt at this time. pt voices no needs. family at bedside. call light in reach
--- NOTE | 2024-10-10 09:37 | PC.NURSE ---
urine culture discussed with , pt recieving 1gram meropenem IV at detention, provider okayed
== END 2024-10-07 20:41 | disposition home or self-care (01) ==
LOC: ER 16:46 → 2ND 17:02 → ER 18:01
PROVIDERS: Physician Assistant; Emergency Provider Student in an Organized Health Care Education/Training Program; PCP Internal Medicine Adolescent Medicine
DX: N39.0 Urinary tract infection, site not specified (principal); N32.89 Other specified disorders of bladder; T83.090A Other mechanical complication of cystostomy catheter, initial encounter; R10.9 Unspecified abdominal pain; R14.0 Abdominal distension (gaseous); R30.0 Dysuria; Z95.828 Presence of other vascular implants and grafts; Z87.898 Personal history of other specified conditions
CPT/HCPCS: 51702; 71045; 74177; 80053; 81001; 85025; 87086; 87088; 87186; 99285; C1751; J2185; Q9967

== ENCOUNTER 2024-10-08 12:07 | Emergency (ER) | payer MEDICARE, MEDICAID, SELFPAY ==
[2024-10-08 12:09] VITALS: BP 114/76; O2SAT 100
[2024-10-08 12:11] VITALS: BP 114/76; PULSE 88; RESP 14; TEMP 36.9; O2SAT 95; BMI 22.1
[2024-10-08 12:15] VITALS: BP 126/80; PULSE 72; O2SAT 94
--- NOTE | 2024-10-08 12:15 | ED_ITS ---
<Statement entered by Princess Price MD - 10/08/24 15:45> I was consulted by the KEAGAN, and we discussed the complexity of problems being addressed. I approved the treatment and management plan for this patient's care in the emergency department, thus performing a substantive portion of the medical decision making. Princess Price MD Discharge Plan Disposition Patient Disposition: Xfer Other Condition: Good Chief Complaint: Urogenital-Female Prescriptions Prescriptions: No Action cyanocobalamin (vitamin B-12) 1,000 mcg/mL solution 1,000 mcg IM MONTHLY cholecalciferol (vitamin D3) 50 mcg (2,000 unit) tablet 25 mcg PO DAILY omeprazole 40 mg capsule,delayed release(DR/EC) 40 mg PO DAILY Patient Comments: TAKE 1 CAPSULE BY MOUTH ONCE DAILY levothyroxine 200 mcg tablet 200 mcg PO DAILY Patient Comments: TAKE 1 TABLET BY MOUTH ONCE DAILY Linzess 145 mcg capsule 145 mcg PO DAILY Qty: 30 0RF levetiracetam 500 mg tablet 500 mg PO BID sennosides-docusate sodium [Stimulant Laxative Plus] 8.6-50 mg tablet 1 tab PO HS dantrolene 50 mg Capsule 50 mg PO TID gabapentin 400 mg capsule 400 mg PO TID midodrine 5 mg tablet 5 mg PO BID melatonin 3 mg tablet 6 mg PO HS acetaminophen 500 mg Tablet 1,000 mg PO Q6HP PRN (Reason: Mild Pain (Scale Score 1-4)) diphenhydramine HCl 25 mg Tablet 25 mg PO TIDP PRN (Reason: Itching) polyethylene glycol 3350 17 gram/dose powder 17 g PO DAILY lactulose 10 gram/15 mL Solution 20 g PO DAILYP PRN (Reason: Constipation) tizanidine 2 mg capsule 2 mg PO BID diclofenac sodium 1 % Gel 1 ea TOPICAL Q6HP PRN (Reason: JOINT PAIN) Rx Instructions: apply to single elbow, wrist or hand; for hand includes palm/fingers/back of hand Adults Multivitamin 18 mg iron-400 mcg-25 mcg Tablet 1 tab PO DAILY hydrocodone-acetaminophen 5-325 mg tablet 1 tab PO Q6HP PRN (Reason: Moderate Pain (Scale Score 5-6)) sertraline 100 mg tablet 150 mg PO DAILY sulfamethoxazole-trimethoprim [Bactrim DS] 800-160 mg tablet 1 tab PO BID 5 Days Qty: 10 0RF prednisone 20 mg tablet 40 mg PO DAILY 5 Days Qty: 10 0RF trazodone 50 mg tablet 50 mg PO HS 30 Days Qty: 30 0RF meropenem-0.9% sodium chloride 1 gram/50 mL piggyback 1 g IV Q8H 7 Days Referrals Follow up/Referrals: Luis Henderson MD [Primary Care Provider] - See instructions Clinical Impressions Clinical Impression: Mechanical complication of suprapubic catheter Stand Alone Forms Stand Alone Forms: Transfer Record - ED Print Language Print Language: Macedonian Discharge ED Provider: Princess Price General Adult HPI General Chief complaint: Urogenital-Female Stated complaint: urogenital-Female Time Seen by Provider: 10/08/24 12:09 Mode of Arrival: EMS Source of Information: Patient and Medical Record Limitations: No Limitations History of Present Illness HPI narrative: 64-year-old female presents to the emergency department via EMS from the [facility] facility, with a complaint of suprapubic catheter dysfunction, per patient and fdc staff the patient's suprapubic catheter fell out , this morning, she has indwelling suprapubic catheter due to neurogenic bladder in the setting of cerebral palsy, per fdc records, the suprapubic catheter balloon was not inflated . Patient is well-known to the emergency department was last seen by myself yesterday 10/07/2024, UTI symptoms, suprapubic catheter dysfunction, urinary retention, in summary patient's workup yesterday included urinalysis laboratory studies, CT abdomen pelvis, urinary catheter management and consultation with urology at [facility]. He recommend decompressing the bladder due to suprapubic catheter dysfunction with In-N-Out/Gastelum catheter, this was done and decompressed bladder. See medical record from yesterday for complete details. Patient does not have extended spectrum beta-lactamase urine culture from 09/27/2024, thus patient had PICC line placed and according to culture and sensitivity, was placed on IV meropenem 1 g Q8, thus far as had 3 rounds of IV ABX, culture preliminary results from yesterday yielded gram-negative rods. She has no acute complaints today, other past medical history consistent with behavioral disturbance,IBS, patient has had suprapubic catheter malfunction/change x 2 in the last month. Placed in April 2024 at [facility]. Per fdc staff, they spoke with the patient's urologist over the phone this morning and [facility] would like to see the patient in consultation. Unfortunately, [facility] was attempted to be contacted yesterday however, on diversion due to volume. Thus, outside facility ([facility]) urologist was contacted for consultation. Triage vitals grossly unremarkable. Onset (ago): hour(s) Related Data Home Medications ?Medication ?Instructions ?Recorded ?Confirmed cyanocobalamin (vitamin B-12) 1,000 mcg IM MONTHLY 11/04/18 10/08/24 1,000 mcg/mL injection solution cholecalciferol (vitamin D3) 50 25 mcg PO DAILY 10/11/19 10/08/24 mcg (2,000 unit) tablet levothyroxine 200 mcg tablet 200 mcg PO DAILY 02/14/23 10/08/24 omeprazole 40 mg capsule,delayed 40 mg PO DAILY 02/14/23 10/08/24 release acetaminophen 500 mg tablet 1,000 mg PO Q6HP PRN Mild Pain 09/27/24 10/08/24 (Scale Score 1-4) dantrolene 50 mg capsule 50 mg PO TID 09/27/24 10/08/24 diclofenac sodium 1 % topical gel 1 ea topical Q6HP PRN JOINT PAIN 09/27/24 10/08/24 diphenhydramine HCl 25 mg tablet 25 mg PO TIDP PRN Itching 09/27/24 10/08/24 gabapentin 400 mg capsule 400 mg PO TID 09/27/24 10/08/24 hydrocodone 5 mg-acetaminophen 325 1 tab PO Q6HP PRN Moderate Pain 09/27/24 10/08/24 mg tablet (Scale Score 5-6) lactulose 10 gram/15 mL oral 20 g PO DAILYP PRN Constipation 09/27/24 10/08/24 solution levetiracetam 500 mg tablet 500 mg PO BID 09/27/24 10/08/24 melatonin 3 mg tablet 6 mg PO HS 09/27/24 10/08/24 midodrine 5 mg tablet 5 mg PO BID 09/27/24 10/08/24 multivit with minerals-iron 18 1 tab PO DAILY 09/27/24 10/08/24 mg-folic ac 400 mcg-vit K 25 mcg tablet (Adults Multivitamin) polyethylene glycol 3350 17 17 g PO DAILY 09/27/24 10/08/24 gram/dose oral powder sennosides 8.6 mg-docusate sodium 1 tab PO HS 09/27/24 10/08/24 50 mg tablet (Stimulant Laxative Plus) sertraline 100 mg tablet 150 mg PO DAILY 09/27/24 10/08/24 tizanidine 2 mg capsule 2 mg PO BID 09/27/24 10/08/24 Previous Rx's ?Medication ?Instructions ?Recorded linaclotide 145 mcg capsule 145 mcg PO DAILY #30 caps 09/21/24 (Linzess) prednisone 20 mg tablet 40 mg (2 x 20 mg) PO DAILY 5 days 09/27/24 #10 tabs sulfamethoxazole 800 1 tab PO BID 5 days #10 tabs 09/27/24 mg-trimethoprim 160 mg tablet (Bactrim DS) trazodone 50 mg tablet 50 mg PO HS 30 days #30 tabs 09/27/24 meropenem 1 gram/50 mL in 0.9% 1 g IV Q8H 7 days 10/07/24 sodium chloride intravenous piggyback Allergies Allergy/AdvReac Type Severity Reaction Status Date / Time metoclopramide (From REGLAN) Allergy Mild I-RASH Verified 10/08/24 12:18 Sulfa (Sulfonamide Allergy Mild I-RASH Verified 10/08/24 12:18 Antibiotics) (SULFA (SULFONAMIDE ANTIBIOTICS)) morphine Allergy Vomiting Verified 10/08/24 12:18 PFSH PFS Disclaimer: The information contained in this section may have been updated after the patient was seen, as this information can be updated by other users. Medical History Physical debility Neurogenic bladder Generalized anxiety disorder New onset seizure Osteoporosis History of hypertension Hyperlipidemia GERD (gastroesophageal reflux disease) Depression Surgical History H/O kyphoplasty H/O tubal ligation H/O thyroidectomy Hx of appendectomy Family History Other No significant family history Social History (Updated 10/07/24 @ 17:13 by Taylor Prado RN) Smoking Status: Never smoker second hand exposure: No alcohol intake: never counseling provided: none substance use type: denies use current occupational status: other Travel in the last 8 weeks: None household members: spouse housing: house lives independently: No marital status: number of children: 2 current occupational exposures/hazards: No caffeine: Yes Have you lived/traveled outside [place] in past 30 days?: No Contact w/someone who lives/traveled outside US past 30 days?: No Exposure to someone with infectious disease in past 14 days?: No Do you have a fever (greater than 100.4 F or 38 C)?: No Have you tested positive for COVID-19: No Exposed to someone with COVID-19 in past 14 days?: No Do you have a sore throat?: No Do you have a cough?: No Do you have any weakness?: No Do you have any diarrhea?: No Are you experiencing any unusual bleeding?: No Do you have any muscle aches/pain?: No Do you have any abdominal pain?: No Are you experiencing loss of taste or smell?: No Other Medical History Have you received the Flu Vaccine for this season: Yes Have you received the Pneumonia Vaccine: Yes ROS Obtained: Yes All systems reviewed & no additional complaints except as documented Physical Exam General General appearance: alert and in no apparent distress Head Head exam: atraumatic and normocephalic Eye Eye exam: Present PERRL and EOMI ENT ENT exam: Present mucous membranes moist Neck Neck exam: Present normal inspection Chest Chest inspection: Present normal inspection and symmetric chest wall rise Respiratory Respiratory exam: Present normal lung sounds bilaterally; Absent respiratory distress Cardiovascular Cardiovascular exam: Present regular rate and normal rhythm Abdominal Exam Abdominal exam: Present soft; Absent tenderness, guarding, rebound or rigidity Comment: Suprapubic catheter is no longer inserted, there is no drainage or erythema around the insertion site, no abdominal distention Extremities Exam Extremities exam: Present normal inspection Neurological Exam Neurological exam: Present alert, oriented X3 and other (History of cerebral palsy, some drawn up appearance of the right, UE, however this appears chronic and patient is at neurological baseline.) Psychiatric Psychiatric exam: Present normal affect Skin Skin exam: Present warm and dry Medical Decision Making Medical Records Medical records reviewed: Yes I reviewed the patient's medical records. Screening: Per USPSTF and CDC recommendations, given the prevalence of disease in our region, it is our hospital?s policy to screen for HIV and viral Hepatitis for all patients aged 18 and over and those with ongoing risk factors. Claus Inquiry Pt receiving controlled substance: No Claus was queried for this patient: No Vital Signs: 10/08/24 12:09 10/08/24 12:11 10/08/24 12:15 Temperature 98.4 F Temperature Source Oral Pulse Rate 72 Pulse Rate [Left] 88 Respiratory Rate 14 Blood Pressure 114/76 126/80 Blood Pressure [Right Arm] 114/76 Blood Pressure Mean [Right Arm] 88 Blood Pressure Source [Right Arm] Automatic Cuff Blood Pressure Position [Right Arm] Sitting 02 Sat by Pulse Oximetry 100 95 94 L Oxygen Delivery Method Room Air Room Air Room Air 10/08/24 12:30 Temperature Temperature Source Pulse Rate 77 Pulse Rate [Left] Respiratory Rate Blood Pressure 126/75 Blood Pressure [Right Arm] Blood Pressure Mean [Right Arm] Blood Pressure Source [Right Arm] Blood Pressure Position [Right Arm] 02 Sat by Pulse Oximetry 95 Oxygen Delivery Method Room Air Medical Decision Narrative: 64-year-old female presents to the emergency department for suprapubic catheter dysfunction, differential diagnosis include but not limited to urinary outflow obstruction, suprapubic catheter malfunction, acute UTI. According to fdc records, staff reached out to [facility] urology and urologist would like to see the patient. I will call [facility] urology for continuity of care/recommendations of the patient's suprapubic catheter management. I discussed this patient's case with the [facility] transfer JEREMI Manriquez at approximately 12:17 PM she is in agreement with the current transfer plan/treatment plan, patient will be transferred to [facility] emergency department excepting physician will be for suprapubic catheter management/malfunction in the setting of neurogenic bladder due to cerebral palsy. Critical Care Critical Care Time Critical Care Time: No
--- NOTE | 2024-10-08 12:17 | INFXCTL.NOTE ---
Called [facility] for poss transfer for URO. [facility] is talking to TERENCE Reilly at this time.
--- NOTE | 2024-10-08 12:19 | PC.NURSE ---
Addendum entered by Ingris Packer RN 10/08/24 12:23: [facility] ED Original Note: Thom PRATT speaking with to transfer pt. ED accepts transfer by Dr. Murphy
[2024-10-08 12:30] VITALS: BP 126/75; PULSE 77; O2SAT 95
--- NOTE | 2024-10-08 12:44 | PC.NURSE ---
CALLED [facility] AND LET THEM KNOW WE HAVE A TRANSFER TO [facility] ED, TRANSFER IS BLS AND GOING FOR UROLOGY DUE TO SUBRAPUBIC CATH CAME OUT
[2024-10-08 13:06] VITALS: BP 117/73; PULSE 68; RESP 16; TEMP 36.7; O2SAT 99
== END 2024-10-08 13:07 | disposition other institution (70) ==
PROVIDERS: Emergency Provider Student in an Organized Health Care Education/Training Program; PCP Internal Medicine Adolescent Medicine
DX: T83.090A Other mechanical complication of cystostomy catheter, initial encounter (principal)
CPT/HCPCS: 99283

== ENCOUNTER 2024-11-16 08:09 | Day surgery (SDC) | payer MEDICARE, MEDICAID, SELFPAY ==
[2024-11-16 08:20] VITALS: BP 100/67; PULSE 103; RESP 16; TEMP 36.9; O2SAT 97; BMI 21.1
[2024-11-16] MEDS: methylPREDNISolone ACETATE 80MG/ML VIAL 80 MG (08:55)
[2024-11-16] MEDS: LIDOCAINE 1% 5ML PF VIAL 5 ML (08:55)
--- NOTE | 2024-11-16 09:13 | EXP.PAIN.PRO ---
Procedure Date: 11/16/24 Time: 09:10 Anesthesiologist:: Francisco Javier Mcdonald CRNA Complications:: None Pre-procedure Diagnosis:: Degenerative disc lumbar spine multilevels for lumbar radiculopathy. Lumbar postlaminectomy syndrome. Post-procedure Diagnosis:: Same. Indications for Procedure:: Patient is wheelchair-bound. Presents to our clinic today for caudal epidural steroid injection. Patient is nonweightbearing. Difficulty for positioning. She reports low back pain as well as bilateral hip and leg pain at times. Procedure Details:: Procedure: Lumbar epidural steroid injection under fluoroscopy Informed consent was obtained and the risks and benefits of the procedure were explained to the patient. The patient was taken to the procedure room and noninvasive monitors placed, including noninvasive blood pressure cuff and pulse oximeter. The back was viewed using C-arm Fluoroscopy and prepped using Chloraprep as a cleansing solution and the L5-S1 interspace was palpated. Skin and subcutaneous tissues were anesthetized using lidocaine 1.5% and a 25-gauge needle. After this, an 18-gauge Touhy epidural needle was placed into the L5-S1 interspace and advanced using fluoroscopic guidance and loss of resistance to air until the epidural space was encountered. After confirmation of needle placement in the epidural space, with dye, a solution containing normal saline, 3 mL and Depo-Medrol 80 mg were incrementally injected into the lumbar epidural space. The patient tolerated the procedure well with no complications. The patient was observed in the Pain Clinic and then discharged home neurologically intact. Plan and Disposition:: Patient was discharged without incident.
[2024-11-16 09:17] VITALS: BP 103/80; PULSE 106; RESP 16; TEMP 36.9; O2SAT 98
[2024-11-16 09:25] VITALS: BP 117/70; PULSE 94; RESP 18; O2SAT 96
[2024-11-16 09:30] VITALS: BP 117/70; PULSE 94; RESP 18; O2SAT 96
== END 2024-11-16 09:17 | disposition home or self-care (01) ==
PROVIDERS: PCP Internal Medicine Adolescent Medicine; Visit Provider Nurse Anesthetist, Certified Registered
DX: M51.16 Intervertebral disc disorders with radiculopathy, lumbar region (principal); M96.1 Postlaminectomy syndrome, not elsewhere classified
CPT/HCPCS: 62323; J1010

== ENCOUNTER 2024-12-07 23:09 | Emergency (ER) | payer MEDICARE, MEDICAID, SELFPAY ==
[2024-12-07 23:14] VITALS: BP 124/77; PULSE 83; RESP 16; TEMP 36.6; O2SAT 98; BMI 20.3
--- NOTE | 2024-12-07 23:16 | ED_ITS ---
Discharge Plan Disposition Patient Disposition: Home, Self-Care Prescriptions Prescriptions: No Action cyanocobalamin (vitamin B-12) 1,000 mcg/mL solution 1,000 mcg IM MONTHLY cholecalciferol (vitamin D3) 50 mcg (2,000 unit) tablet 25 mcg PO DAILY omeprazole 40 mg capsule,delayed release(DR/EC) 40 mg PO DAILY Patient Comments: TAKE 1 CAPSULE BY MOUTH ONCE DAILY levothyroxine 200 mcg tablet 200 mcg PO DAILY Patient Comments: TAKE 1 TABLET BY MOUTH ONCE DAILY Linzess 145 mcg capsule 145 mcg PO DAILY Qty: 30 0RF levetiracetam 500 mg tablet 500 mg PO BID sennosides-docusate sodium [Stimulant Laxative Plus] 8.6-50 mg tablet 1 tab PO HS dantrolene 50 mg Capsule 50 mg PO TID gabapentin 400 mg capsule 400 mg PO TID midodrine 5 mg tablet 5 mg PO BID melatonin 3 mg tablet 6 mg PO HS acetaminophen 500 mg Tablet 1,000 mg PO Q6HP PRN (Reason: Mild Pain (Scale Score 1-4)) diphenhydramine HCl 25 mg Tablet 25 mg PO TIDP PRN (Reason: Itching) polyethylene glycol 3350 17 gram/dose powder 17 g PO DAILY lactulose 10 gram/15 mL Solution 20 g PO DAILYP PRN (Reason: Constipation) tizanidine 2 mg capsule 2 mg PO BID diclofenac sodium 1 % Gel 1 ea TOPICAL Q6HP PRN (Reason: JOINT PAIN) Rx Instructions: apply to single elbow, wrist or hand; for hand includes palm/fingers/back of hand Adults Multivitamin 18 mg iron-400 mcg-25 mcg Tablet 1 tab PO DAILY hydrocodone-acetaminophen 5-325 mg tablet 1 tab PO Q6HP PRN (Reason: Moderate Pain (Scale Score 5-6)) sertraline 100 mg tablet 150 mg PO DAILY sulfamethoxazole-trimethoprim [Bactrim DS] 800-160 mg tablet 1 tab PO BID 5 Days Qty: 10 0RF prednisone 20 mg tablet 40 mg PO DAILY 5 Days Qty: 10 0RF trazodone 50 mg tablet 50 mg PO HS 30 Days Qty: 30 0RF meropenem-0.9% sodium chloride 1 gram/50 mL piggyback 1 g IV Q8H 7 Days Referrals Follow up/Referrals: Provider,Referral, MD [Primary Care Provider] - See instructions Activity Restrictions/Add. Instructions Additional Instructions/Restrictions: The suprapubic catheter was exchanged without issue. Clinical Impressions Clinical Impression: Obstructed suprapubic catheter Instructions Patient Instructions: DI for Urinary Tract Infection (UTI), DI for Urinary Tract Infection in Children Print Language Print Language: Icelandic Discharge ED Provider: Matthieu Romero General Adult HPI General Chief complaint: Urogenital-Female Stated complaint: Obstructed suprapubic cath Time Seen by Provider: 12/07/24 23:15 History of Present Illness HPI narrative: 64-year-old female with history of cerebral palsy, chronic indwelling suprapubic catheter, seizure disorder presents for obstructed suprapubic catheter. She denies any fever pain or other symptoms, but reports she has been peeing more through her urethra than normal today and that her Gastelum has not been draining. Related Data Home Medications ?Medication ?Instructions ?Recorded ?Confirmed cyanocobalamin (vitamin B-12) 1,000 mcg IM MONTHLY 11/04/18 12/06/24 1,000 mcg/mL injection solution cholecalciferol (vitamin D3) 50 25 mcg PO DAILY 10/11/19 12/06/24 mcg (2,000 unit) tablet levothyroxine 200 mcg tablet 200 mcg PO DAILY 02/14/23 12/06/24 omeprazole 40 mg capsule,delayed 40 mg PO DAILY 02/14/23 12/06/24 release acetaminophen 500 mg tablet 1,000 mg PO Q6HP PRN Mild Pain 09/27/24 12/06/24 (Scale Score 1-4) dantrolene 50 mg capsule 50 mg PO TID 09/27/24 12/06/24 diclofenac sodium 1 % topical gel 1 ea topical Q6HP PRN JOINT PAIN 09/27/24 12/06/24 diphenhydramine HCl 25 mg tablet 25 mg PO TIDP PRN Itching 09/27/24 12/06/24 gabapentin 400 mg capsule 400 mg PO TID 09/27/24 12/06/24 hydrocodone 5 mg-acetaminophen 325 1 tab PO Q6HP PRN Moderate Pain 09/27/24 12/06/24 mg tablet (Scale Score 5-6) lactulose 10 gram/15 mL oral 20 g PO DAILYP PRN Constipation 09/27/24 12/06/24 solution levetiracetam 500 mg tablet 500 mg PO BID 09/27/24 12/06/24 melatonin 3 mg tablet 6 mg PO HS 09/27/24 12/06/24 midodrine 5 mg tablet 5 mg PO BID 09/27/24 12/06/24 multivit with minerals-iron 18 1 tab PO DAILY 09/27/24 12/06/24 mg-folic ac 400 mcg-vit K 25 mcg tablet (Adults Multivitamin) polyethylene glycol 3350 17 17 g PO DAILY 09/27/24 12/06/24 gram/dose oral powder sennosides 8.6 mg-docusate sodium 1 tab PO HS 09/27/24 12/06/24 50 mg tablet (Stimulant Laxative Plus) sertraline 100 mg tablet 150 mg PO DAILY 09/27/24 12/06/24 tizanidine 2 mg capsule 2 mg PO BID 09/27/24 12/06/24 Previous Rx's ?Medication ?Instructions ?Recorded linaclotide 145 mcg capsule 145 mcg PO DAILY #30 caps 09/21/24 (Linzess) prednisone 20 mg tablet 40 mg (2 x 20 mg) PO DAILY 5 days 09/27/24 #10 tabs sulfamethoxazole 800 1 tab PO BID 5 days #10 tabs 09/27/24 mg-trimethoprim 160 mg tablet (Bactrim DS) trazodone 50 mg tablet 50 mg PO HS 30 days #30 tabs 09/27/24 meropenem 1 gram/50 mL in 0.9% 1 g IV Q8H 7 days 10/07/24 sodium chloride intravenous piggyback Allergies Allergy/AdvReac Type Severity Reaction Status Date / Time metoclopramide (From REGLAN) Allergy Mild I-RASH Verified 12/06/24 09:57 Sulfa (Sulfonamide Allergy Mild I-RASH Verified 12/06/24 09:57 Antibiotics) (SULFA (SULFONAMIDE ANTIBIOTICS)) morphine Allergy Vomiting Verified 12/06/24 09:57 [facility] Disclaimer: The information contained in this section may have been updated after the patient was seen, as this information can be updated by other users. Medical History (Updated 12/07/24 @ 23:30 by Matthieu Romero MD) Physical debility Neurogenic bladder Generalized anxiety disorder New onset seizure Osteoporosis History of hypertension Hyperlipidemia GERD (gastroesophageal reflux disease) Depression Surgical History H/O kyphoplasty H/O tubal ligation H/O thyroidectomy Hx of appendectomy Family History Other No significant family history Social History Smoking Status: Never smoker second hand exposure: No alcohol intake: never counseling provided: none substance use type: denies use current occupational status: other Travel in the last 8 weeks: None household members: spouse housing: house lives independently: No marital status: number of children: 2 current occupational exposures/hazards: No caffeine: Yes Other Medical History Have you received the Flu Vaccine for this season: No Have you received the Pneumonia Vaccine: Yes ROS Obtained: Yes All systems reviewed & no additional complaints except as documented Physical Exam General General appearance: alert and in no apparent distress Head Head exam: atraumatic Eye Eye exam: Present normal appearance, PERRL and EOMI ENT ENT exam: Present normal oropharynx and normal external ear exam Neck Neck exam: Present normal inspection and full ROM Chest Chest inspection: Present normal inspection and symmetric chest wall rise; Absent tenderness Respiratory Respiratory exam: Present normal lung sounds bilaterally; Absent respiratory distress Cardiovascular Cardiovascular exam: Present regular rate and normal rhythm Abdominal Exam Abdominal exam: Present soft and distention (Suprapubic distention but nontender . Catheter insertion site is clean and without signs of infection.); Absent tenderness or guarding Extremities Exam Extremities exam: Present other (Contractures noted) Neurological Exam Neurological exam: Present alert, oriented X3 and other (At baseline) Psychiatric Psychiatric exam: Present normal affect and normal mood Skin Skin exam: Present warm, dry and normal color Lymphatic Lymphatic Findings: no adenopathy Medical Decision Making Medical Records Medical records reviewed: Yes I reviewed the patient's medical records. Screening: Per USPSTF and CDC recommendations, given the prevalence of disease in our region, it is our hospital?s policy to screen for HIV and viral Hepatitis for all patients aged 18 and over and those with ongoing risk factors. Claus Inquiry Pt receiving controlled substance: No Claus was queried for this patient: No Vital Signs: 12/07/24 23:14 12/07/24 23:21 12/07/24 23:30 Temperature 97.9 F Temperature Source Oral Pulse Rate 84 73 Pulse Rate [Right] 83 Respiratory Rate 16 Blood Pressure Blood Pressure [Right Arm] 124/77 Blood Pressure Mean Blood Pressure Mean [Right Arm] 92 Blood Pressure Source Blood Pressure Source [Right Arm] Automatic Cuff Blood Pressure Position Blood Pressure Position [Right Arm] Sitting 02 Sat by Pulse Oximetry 98 94 L 96 Oxygen Delivery Method Room Air 12/07/24 23:42 12/08/24 00:00 Temperature 97.9 F Temperature Source Oral Pulse Rate 64 75 Pulse Rate [Right] Respiratory Rate 16 Blood Pressure 122/74 116/72 Blood Pressure [Right Arm] Blood Pressure Mean 90 Blood Pressure Mean [Right Arm] Blood Pressure Source Automatic Cuff Blood Pressure Source [Right Arm] Blood Pressure Position Supine Blood Pressure Position [Right Arm] 02 Sat by Pulse Oximetry 96 Oxygen Delivery Method Room Air Lab Data Lab results reviewed: Yes I reviewed the patient's lab results. Lab Results 12/08/24 : Urine Color Yellow, Urine Appearance Clear, Urine pH 8.5, Ur Specific [place] 1.015, Urine Protein 1+ A, Urine Glucose (UA) Negative, Urine Ketones Negative, Urine Blood Trace-i, Urine Nitrate Positive A, Urine Bilirubin Negative, Urine Urobilinogen 0.2, Ur Leukocyte Esterase 2+ A, Urine RBC Occasional, Urine WBC 10-20, Ur Squamous Epith Cells 3-5, Urine Bacteria 2+ Orders (Tests/Meds): ORDERS Category Date Time Status Urinalysis and Microscopic Stat Lab 12/08/24 Completed Urine Culture Stat Micro 12/08/24 Received Medical Decision Narrative: 64-year-old female with history of cerebral palsy, neurogenic bladder, chronic indwelling suprapubic catheter presents with apparent clogged catheter. Denies any fever back pain or other symptoms at this time.. History was obtained via interactive discussion with patient, EMS, chart review. On arrival, patient is [afebrile, hemodynamically stable, satting appropriately, alert, oriented x4, GCS 15], moving all extremities spontaneously. Full physical exam performed and significant for suprapubic fullness without tenderness, clear lungs bilaterally Differential includes but is not limited to catheter obstruction. The suprapubic was replaced by me at bedside without difficulty with immediate release of significant amount of clear urine. A urinalysis was sent, patient does not have any fever abdominal pain or flank pain to suggest infection at this time. Patient has a chronically indwelling catheter, it is likely to be chronically colonized with bacteria. She has history of multidrug-resistant E. coli and Proteus. I considered initiating antibiotics for abnormal urinalysis, but given she did not have any other signs of infection I think it would be best to wait for urine culture and assess patient's symptoms prior to initiation of antibiotic therapy. Procedures Risk/Benefits of Procedure(s) Were Explained: Yes Critical Care Critical Care Time Critical Care Time: No
[2024-12-07 23:21] VITALS: PULSE 84; O2SAT 94
[2024-12-07 23:30] VITALS: PULSE 73; O2SAT 96
[2024-12-07 23:42] VITALS: BP 122/74; PULSE 64; RESP 16; TEMP 36.6; O2SAT 98
[2024-12-08] VITALS: BP 116/72; PULSE 75; O2SAT 96
[2024-12-08 00:24] LABS: Microscopic, Urine URINE MICROSCOPIC (MICROSCOPIC)
[2024-12-08 00:39] LABS: Appearance,Urine CLEAR (Clear); Bilirubin,Urine Negative (Negative); Blood, Urine TRACE-I (Negative); Color,Urine YELLOW (Yellow); Glucose,Urine (UA) Negative (Negative); Ketones,Urine Negative (Negative); Leukocyte Esterase,Urine 2+ (Negative); Nitrate,Urine POSITIVE (Negative); PH,Urine 8.5 (5.0-8.5); Protein,Urine 1+ (Negative); Specific Gravity, Urine 1.015 (1.005-1.030); Urobilinogen,Urine 0.2 EU/dl (0.2)
[2024-12-08 01:15] LABS: RBC,Urine Occasional #/hpf (0-3)
[2024-12-08 01:16] LABS: Bacteria,Urine 2+ /lpf
== END 2024-12-08 00:23 | disposition home or self-care (01) ==
PROVIDERS: Emergency Provider Emergency Medicine
DX: T83.091A Other mechanical complication of indwelling urethral catheter, initial encounter (principal)
CPT/HCPCS: 51702; 81001; 87086; 87088; 87186; 99284

== ENCOUNTER 2024-12-08 13:32 | Outpatient (POV) | payer MEDICARE, MEDICAID, SELFPAY ==
[2024-12-08 13:40] VITALS: BP 106/63; PULSE 95; RESP 18; TEMP 36.8; O2SAT 97; BMI 20.3
--- NOTE | 2024-12-08 13:53 | EXP.PAIN.SOA ---
[facility] Disclaimer: The information contained in this section may have been updated after the patient was seen, as this information can be updated by other users. Medical History (Updated 12/07/24 @ 23:30 by Matthieu Romero MD) Physical debility Neurogenic bladder Generalized anxiety disorder New onset seizure Osteoporosis History of hypertension Hyperlipidemia GERD (gastroesophageal reflux disease) Depression Surgical History H/O kyphoplasty H/O tubal ligation H/O thyroidectomy Hx of appendectomy Family History Other No significant family history Social History Smoking Status: Never smoker second hand exposure: No alcohol intake: never counseling provided: none substance use type: denies use current occupational status: other Travel in the last 8 weeks: None household members: spouse housing: house lives independently: No marital status: number of children: 2 current occupational exposures/hazards: No caffeine: Yes PM Subjective & Objective Subjective Subjective:: Patient is a pleasant 64-year-old female who presents today for follow-up of lumbar epidural steroid injection L5-S1 on 11/16/2024. Today she presents today with a pain of 2 out of 10. Patient does state that the injection did help at least 50%. She does still have pain in and around her tailbone area and hip. Patient states from her last visit she is still having issues with her suprapubic catheter. Patient states that she is going back to see the specialist on Friday. Patient states she was just in the ER last night for the same issue because it was not flushing. Patient states that they have had to do 3 different catheters in the last 2 weeks. Patient does also make mention that she is still having constipation issues. Patient is seeing Dr. Diaz and has been on Linzess in the past. Patient states that he did mention a new medication however she is not quite gotten this yet and that she believes that it is still trying to be worked out with insurance. Patient denies any other changes. She is still at [facility]. Her Claus has been reviewed and is appropriate. Review of Systems: General: No recent weight changes, no fever, no sleep disturbances Respiratory: No cough, no shortness of air, no recurring pulmonary infections Cardiovascular/peripheral vascular: No chest pain, no palpitations, no edema, no shortness of breath Gastrointestinal: No new onset incontinence, normal bowel movements reported Genitourinary: No new onset incontinence Musculoskeletal: Hip pain, tailbone pain Psychiatric: [Normal mood/affect] Neurological: [Denies weakness in extremities], [denies balance issues] Pain at rest (0-10 scale): 2 Objective Objective:: Physical Exam: General: Alert and oriented x3, no acute distress, pleasant and cooperative Lungs: Respirations even and unlabored, symmetrical chest expansion Eyes: PERRL Musculoskeletal: Flexion and extension of lumbar [spine] somewhat guarded secondary to pain, [antalgic gait noted] Neurological: Speech clear, no gross sensory deficit Has patient had previous pain injection?: Yes Percent improvement in pain since last injection: 50% Conservative treatment options previously tried: Home exercise plan Length of treatment: Longer than 12 weeks Meds Home Medications and Allergies Home Medications ?Medication ?Instructions ?Recorded ?Confirmed ?Type cyanocobalamin (vitamin B-12) 1,000 mcg IM MONTHLY 11/04/18 12/06/24 History 1,000 mcg/mL injection solution cholecalciferol (vitamin D3) 50 25 mcg PO DAILY 10/11/19 12/06/24 History mcg (2,000 unit) tablet levothyroxine 200 mcg tablet 200 mcg PO DAILY 02/14/23 12/06/24 History omeprazole 40 mg capsule,delayed 40 mg PO DAILY 02/14/23 12/06/24 History release linaclotide 145 mcg capsule 145 mcg PO DAILY #30 caps 09/21/24 12/06/24 Rx (Linzess) acetaminophen 500 mg tablet 1,000 mg PO Q6HP PRN Mild Pain 09/27/24 12/06/24 History (Scale Score 1-4) dantrolene 50 mg capsule 50 mg PO TID 09/27/24 12/06/24 History diclofenac sodium 1 % topical gel 1 ea topical Q6HP PRN JOINT PAIN 09/27/24 12/06/24 History diphenhydramine HCl 25 mg tablet 25 mg PO TIDP PRN Itching 09/27/24 12/06/24 History gabapentin 400 mg capsule 400 mg PO TID 09/27/24 12/06/24 History hydrocodone 5 mg-acetaminophen 325 1 tab PO Q6HP PRN Moderate Pain 09/27/24 12/06/24 History mg tablet (Scale Score 5-6) lactulose 10 gram/15 mL oral 20 g PO DAILYP PRN Constipation 09/27/24 12/06/24 History solution levetiracetam 500 mg tablet 500 mg PO BID 09/27/24 12/06/24 History melatonin 3 mg tablet 6 mg PO HS 09/27/24 12/06/24 History midodrine 5 mg tablet 5 mg PO BID 09/27/24 12/06/24 History multivit with minerals-iron 18 1 tab PO DAILY 09/27/24 12/06/24 History mg-folic ac 400 mcg-vit K 25 mcg tablet (Adults Multivitamin) polyethylene glycol 3350 17 17 g PO DAILY 09/27/24 12/06/24 History gram/dose oral powder prednisone 20 mg tablet 40 mg (2 x 20 mg) PO DAILY 5 days 09/27/24 12/06/24 Rx #10 tabs sennosides 8.6 mg-docusate sodium 1 tab PO HS 09/27/24 12/06/24 History 50 mg tablet (Stimulant Laxative Plus) sertraline 100 mg tablet 150 mg PO DAILY 09/27/24 12/06/24 History sulfamethoxazole 800 1 tab PO BID 5 days #10 tabs 09/27/24 12/06/24 Rx mg-trimethoprim 160 mg tablet (Bactrim DS) tizanidine 2 mg capsule 2 mg PO BID 09/27/24 12/06/24 History trazodone 50 mg tablet 50 mg PO HS 30 days #30 tabs 09/27/24 12/06/24 Rx meropenem 1 gram/50 mL in 0.9% 1 g IV Q8H 7 days 10/07/24 12/06/24 Rx sodium chloride intravenous piggyback New Prescriptions to Start Prescriptions: Allergies Allergy/AdvReac Type Severity Reaction Status Date / Time metoclopramide (From REGLAN) Allergy Mild I-RASH Verified 12/06/24 09:57 Sulfa (Sulfonamide Allergy Mild I-RASH Verified 12/06/24 09:57 Antibiotics) (SULFA (SULFONAMIDE ANTIBIOTICS)) morphine Allergy Vomiting Verified 12/06/24 09:57 Assessment and Plan *Assessment and plan (1) Coccygeal pain: Status: Acute Category: Medical Code(s): M53.3 - Sacrococcygeal disorders, not elsewhere classified (2) Degenerative disc disease, lumbar: Status: Acute Category: Medical Code(s): M51.369 - Other intervertebral disc degeneration, lumbar region without mention of lumbar back pain or lower extremity pain (3) Lumbar radiculopathy: Status: Acute Category: Medical Code(s): M54.16 - Radiculopathy, lumbar region (4) Buttock pain: Status: Acute Category: Medical Code(s): M79.18 - Myalgia, other site Plan Patient is doing well currently following her injection and does not require any additional injection therapy at this time. Patient will return to clinic in 6 weeks for reevaluation of symptoms and plan of care. Patient has been instructed to contact the clinic with any concerns before the next appointment. Dr. Robledo has reviewed this note and agrees with this plan of care. This note was dictated using voice recognition software and make contain errors or omissions. All injections are used with Lidocaine, Bupivacaine and Depo Medrol. Occasionally urine drug screen is needed to verify patient's compliance with our office pain contract. This is ordered based off specific treatments related to chronic pain with the potential to abuse certain medications.
== END 2024-12-08 23:59 | disposition home or self-care (01) ==
LOC: SC.PAIN 13:35
PROVIDERS: PCP Internal Medicine Adolescent Medicine; Visit Provider Nurse Practitioner Family
DX: M53.3 Sacrococcygeal disorders, not elsewhere classified (principal); M79.18 Myalgia, other site; M51.16 Intervertebral disc disorders with radiculopathy, lumbar region; Z79.899 Other long term (current) drug therapy
CPT/HCPCS: 99212; G0463

== ENCOUNTER 2025-01-17 13:23 | Outpatient (POV) | payer MEDICARE, MEDICAID, SELFPAY ==
[2025-01-17 13:35] VITALS: BP 123/71; PULSE 93; RESP 14; O2SAT 97; BMI 22.1
--- NOTE | 2025-01-17 14:16 | EXP.PAIN.SOA ---
[facility] Disclaimer: The information contained in this section may have been updated after the patient was seen, as this information can be updated by other users. Medical History (Updated 01/17/25 @ 14:18 by Sallie Castanon APRN) Physical debility Neurogenic bladder Generalized anxiety disorder New onset seizure Osteoporosis History of hypertension Hyperlipidemia GERD (gastroesophageal reflux disease) Depression Surgical History H/O kyphoplasty H/O tubal ligation H/O thyroidectomy Hx of appendectomy Family History Other No significant family history Social History Smoking Status: Never smoker second hand exposure: No alcohol intake: never counseling provided: none substance use type: denies use current occupational status: other Travel in the last 8 weeks?: None household members: spouse housing: house lives independently: No marital status: number of children: 2 current occupational exposures/hazards: No caffeine: Yes PM Subjective & Objective Subjective Subjective:: Patient is a pleasant 64-year-old female who presents today for 6-week follow-up. Today she rates her pain a 6 out of 10. Patient states this pain is all in her bilateral hips and denies any radiating symptoms into her legs. Patient does state the pain is worse when she has to lay on either one of her hips or prolonged positioning. Patient does state the pain is interfering with her ability to perform activities of daily living such as cooking and cleaning. Patient is interested in additional injection therapy. Patient is still seeing physical therapy there at [facility]. Her Claus has been reviewed and is appropriate. Review of Systems: General: No recent weight changes, no fever, no sleep disturbances Respiratory: No cough, no shortness of air, no recurring pulmonary infections Cardiovascular/peripheral vascular: No chest pain, no palpitations, no edema, no shortness of breath Gastrointestinal: No new onset incontinence, normal bowel movements reported Genitourinary: No new onset incontinence Musculoskeletal: Bilateral hip pain Psychiatric: [Normal mood/affect] Neurological: [Denies weakness in extremities], [denies balance issues] Pain at rest (0-10 scale): 6 Objective Objective:: Physical Exam: General: Alert and oriented x3, no acute distress, pleasant and cooperative Lungs: Respirations even and unlabored, symmetrical chest expansion Eyes: PERRL Musculoskeletal: Flexion and extension of bilateral hips somewhat guarded secondary to pain, [antalgic gait noted] point tenderness along bilateral greater trochanteric bursa's Neurological: Speech clear, no gross sensory deficit Has patient had previous pain injection?: No Conservative treatment options previously tried: Home exercise plan Length of treatment: Longer than 12 weeks and Physical Therapy Length of treatment: Ongoing Meds Home Medications and Allergies Home Medications ?Medication ?Instructions ?Recorded ?Confirmed ?Type cyanocobalamin (vitamin B-12) 1,000 mcg IM MONTHLY 11/04/18 01/17/25 History 1,000 mcg/mL injection solution cholecalciferol (vitamin D3) 50 25 mcg PO DAILY 10/11/19 01/17/25 History mcg (2,000 unit) tablet levothyroxine 200 mcg tablet 200 mcg PO DAILY 02/14/23 01/17/25 History omeprazole 40 mg capsule,delayed 40 mg PO DAILY 02/14/23 01/17/25 History release linaclotide 145 mcg capsule 145 mcg PO DAILY #30 caps 09/21/24 01/17/25 Rx (Linzess) acetaminophen 500 mg tablet 1,000 mg PO Q6HP PRN Mild Pain 09/27/24 01/17/25 History (Scale Score 1-4) dantrolene 50 mg capsule 50 mg PO TID 09/27/24 01/17/25 History diclofenac sodium 1 % topical gel 1 ea topical Q6HP PRN JOINT PAIN 09/27/24 01/17/25 History diphenhydramine HCl 25 mg tablet 25 mg PO TIDP PRN Itching 09/27/24 01/17/25 History gabapentin 400 mg capsule 400 mg PO TID 09/27/24 01/17/25 History hydrocodone 5 mg-acetaminophen 325 1 tab PO Q6HP PRN Moderate Pain 09/27/24 01/17/25 History mg tablet (Scale Score 5-6) lactulose 10 gram/15 mL oral 20 g PO DAILYP PRN Constipation 09/27/24 01/17/25 History solution levetiracetam 500 mg tablet 500 mg PO BID 09/27/24 01/17/25 History melatonin 3 mg tablet 6 mg PO HS 09/27/24 01/17/25 History midodrine 5 mg tablet 5 mg PO BID 09/27/24 01/17/25 History multivit with minerals-iron 18 1 tab PO DAILY 09/27/24 01/17/25 History mg-folic ac 400 mcg-vit K 25 mcg tablet (Adults Multivitamin) polyethylene glycol 3350 17 17 g PO DAILY 09/27/24 01/17/25 History gram/dose oral powder prednisone 20 mg tablet 40 mg (2 x 20 mg) PO DAILY 5 days 09/27/24 01/17/25 Rx #10 tabs sennosides 8.6 mg-docusate sodium 1 tab PO HS 09/27/24 01/17/25 History 50 mg tablet (Stimulant Laxative Plus) sertraline 100 mg tablet 150 mg PO DAILY 09/27/24 01/17/25 History sulfamethoxazole 800 1 tab PO BID 5 days #10 tabs 09/27/24 01/17/25 Rx mg-trimethoprim 160 mg tablet (Bactrim DS) tizanidine 2 mg capsule 2 mg PO BID 09/27/24 01/17/25 History trazodone 50 mg tablet 50 mg PO HS 30 days #30 tabs 09/27/24 01/17/25 Rx meropenem 1 gram/50 mL in 0.9% 1 g IV Q8H 7 days 10/07/24 01/17/25 Rx sodium chloride intravenous piggyback New Prescriptions to Start Prescriptions: Allergies Allergy/AdvReac Type Severity Reaction Status Date / Time metoclopramide (From REGLAN) Allergy Mild I-RASH Verified 12/06/24 09:57 Sulfa (Sulfonamide Allergy Mild I-RASH Verified 12/06/24 09:57 Antibiotics) (SULFA (SULFONAMIDE ANTIBIOTICS)) morphine Allergy Vomiting Verified 12/06/24 09:57 Assessment and Plan *Assessment and plan (1) Trochanteric bursitis of both hips: Status: Acute Category: Medical Code(s): M70.61 - Trochanteric bursitis, right hip; M70.62 - Trochanteric bursitis, left hip Plan Patient is experiencing worsening pain in her bilateral hips with limited range of motion. Patient did have point tenderness along her bilateral greater trochanteric bursa's. I did discuss with the patient that I do believe she would benefit from bilateral bursa injections. Risk and benefits were discussed with the patient and she would like to proceed forward with this plan of care. Patient has continued conservative therapy including oral medication, heat and ice, topicals, physical therapy and continued at home stretching exercise on a daily basis they are in the [facility]. Patient is very limited with her mobility and does state in prolonged positioning for long periods of time. Patient has had chronic hip pain for longer than 6 months. Patient has had bursa injections in the past with her last ones being in March 2024 that did provide 70% improvement and lasted longer than 3 months. Patient will be scheduled for bilateral greater trochanteric bursa injections with fluoroscopy. Patient has been instructed to contact the clinic with any concerns before the next appointment. Dr. Robledo has reviewed this note and agrees with this plan of care. This note was dictated using voice recognition software and make contain errors or omissions. All injections are used with Lidocaine, Bupivacaine and dexamethasone. Occasionally urine drug screen is needed to verify patient's compliance with our office pain contract. This is ordered based off specific treatments related to chronic pain with the potential to abuse certain medications.
== END 2025-01-17 23:59 | disposition home or self-care (01) ==
LOC: SC.PAIN 13:28
PROVIDERS: PCP Internal Medicine Adolescent Medicine; Visit Provider Nurse Practitioner Family
DX: M70.61 Trochanteric bursitis, right hip (principal); M70.62 Trochanteric bursitis, left hip; Z73.89 Other problems related to life management difficulty; Z79.899 Other long term (current) drug therapy
CPT/HCPCS: 99212; G0463

== ENCOUNTER 2025-02-14 12:33 | Emergency (ER) | payer MEDICARE, MEDICAID, SELFPAY ==
--- OUTSIDE RECORDS SUMMARY | 2024-12-22 14:30 | XMS_ITS | Encounter Summary ---
Author Organization [facility] Address [address] [place] [address] Care Team Providers Care Nut And Bolt Assembler Name Role Phone Luis Henderson MD Unavailable [phone] Kasi Jacobs MD Unavailable [phone] Luis Henderson MD Primary Care Provider [phone] Maria Guadalupe Madrigal APRN Unavailable [phone] Reason for Referral * Other Medical (Routine) - Pending Review Specialty Diagnoses / Procedures Referred By Contac t Referred To Contact Diagnoses Cervical dystonia Procedures Botox Dystonia Gerardo Gerber MD [address] [facility] [address] [place] [address] Phone: tel: fax: Referral ID Status Reason Start Date Expiration Date V isits Requested Visits Authorized [id number] Pending Review 12/22/2024 06/23/2026 1 1 * Clinic-Administered Medication (Routine) - Closed Specialty Diagnoses / Procedures Referred By Contac t Referred To Contact Diagnoses Cervical dystonia Procedures [place] INJECTION,ONABOTULINUMTOXINA Gerardo Gerber MD [address] [address] Phone: tel: fax: Referral ID Status Reason Start Date Expiration Date Visits Re quested Visits Authorized [id number] Closed 12/22/2024 06/23/2026 1 1 Reason for Visit * Other Medical (Routine) - Closed Specialty Diagnoses / Procedures Referred By Contac t Referred To Contact Neurology Diagnoses Cervical dystonia Procedures Botox Dystonia Gerardo Gerber MD [address] [address] Phone: tel: fax: Referral ID Status Reason Start Date Expiration Date Visits Re quested Visits Authorized [id number] Closed 06/21/2024 12/21/2025 1 1 Encounter Details Date Type Department Care Team (Latest Contact Info) Description 12/22/2024 2:30 PM EDT Procedure Visit [place] [facility] [address] [place] [address] Gerardo Gerber MD [address] [address] Cervical dystonia (Primary Dx) Social History Tobacco Use Types Packs/Day Years Used Date Smoking Tobacco: Never Smokeless Tobacco: Never Alcohol Use Standard Drinks/Week Comments Never 0 (1 standard drink = 0.6 oz pure alcohol) Alcoholic Drinks/day: Never Drank Alcohol PHQ-2 Answer Date Recorded Patient Health Questionnaire-2 Score 1 06/04/2024 PHQ-9 Answer Date Recorded Patient Health Questionnaire-9 Score 13 03/22/2024 CAGE ASSESSMENT Answer Date Recorded Cage unable to access Not on file 03/16/2023 Cage max number of drinks Not on file 2022 Cage Beverages a week Not on file 03/16/2023 Have you ever felt you should CUT down on your d rinking? 0 03/16/2023 Have you been ANNOYED by people criticizing your drinking? 0 03/16/2023 Have you felt GUILTY about your drinking? 0 03/16/2023 Have you had a drink first t alli in the morning (EYE-POWER WASHER) to steady your nerves or to get rid of a hangover? 0 03/16/2023 CAGE Questionnaire Score 0 023 PHQ-2A Answer Date Recorded Patient Health Questionnaire-2 Score 1 04/17/2023 Comments No Sex and Gender Information Value Date Recorded Sex Assigned at Not on file Legal Sex Female 7:58 PM EDT Gender Identity Not on file Sexual Orientation Not on file documented as of this encounter Last Filed Vital Signs Vital Sign Reading Time Taken Comments Blood Pressure 108/66 12/22/2024 2:20 PM EDT Pulse 96 12/22/2024 2:20 PM EDT Temperature - - Respiratory Rate - - Oxygen Saturation 96% 12/22/2024 2:20 PM EDT Inhaled Oxygen Concentration - - Weight 61.2 kg (135 lb) 12/22/2024 2:20 PM EDT Height 167.6 cm (5' 6 ) 12/22/2024 2:20 PM EDT Body Mass Index 21.79 12/22/2024 2:20 PM EDT documented in this encounter Miscellaneous Notes * Progress Notes - Gerardo Gerber MD - 12/22/2024 2:30 PM EDT Botulinum Toxin Injection Procedure Note Procedure: Botulinum Toxin Procedure Diagnosis: Cervical dystonia Indications: Cervical dystonia Procedure Details The risks, benefits, indications, potential complications, and alternatives were explained to the patient and informed consent was obtained. The limb(s) for injection were identified and a time out called to re-identify the correct limb forinjection. After prepping the skin with alcohol overlying the following muscles, botulinum toxin was injected intramuscularly using EMG guidance as follows. Impression: Patient tolerated injection procedure with no complications. .Botox Injection Meme came today for Botox injection. I reviewed with her the risks and benefits including ptosis, infection, and bleeding. She has no contraindications. She is on no antibiotics and has no neuromuscular disorders. is not an issue. She tolerated the procedure well. The patient will return to see me again in three to four months, earlier if there are any problems. Meme understands the side effects and risks, as well as the necessity for continued treatment to maintain improvement. Additional therapy may be necessary. 125 units were used at a concentration of 10 units per 0.1 mL. Last injections: Botox. 150 units. 06/2024 No adverse effects 01/10 benefit. 2007 cervical dystonia TODAY'S BOTULINUM TOXIN INJECTIONS: Indication: cervical dystonia. Dose injected: 125 units. Botox. EMG guided. Wastage: 75 units. 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 documented in this encounter Plan of Treatment Upcoming Encounters Date Type Department Care Team (Late st Contact Info) Description 03/23/2025 2:45 PM EDT Procedure Visit [facility] [address] [place] [address] Gerardo Gerber MD [address] [place] [address] 04/01/2025 2:20 PM EDT Office Visit [facility] Urology [address] [place] [address] Maria Guadalupe Madrigal APRN [address] [place] [address] Scheduled Orders Name Type Priority Associated Diagnoses Orde r Schedule Botox Dystonia Procedures Routine Cervical dystonia Expected: 03/15/2025, Expires: 12/14/2025 documented as of this encounter Visit Diagnoses Diagnosis Cervical dystonia- Primary Spasmodic torticollis documented in this encounter Administered Medications Inactive Administered Medications - up to 3 most recent administrations Medication Order MAR Action Action Date Dose Rate Site onabotulinumtoxinA (Botox) injection 125 Units 125 Units, Intramuscular, Once, 1 dose, On Fri12/22/24 at 1530, RoutineIndications:Cervical dystonia Given by Other 12/22/2024 2:34 PM EDT 125 Units Oth er documented in this encounter Additional Health Concerns Infection Onset Date Last Indicated Resolved Time 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 Assessment Noted Time PHQ-9 Depression Total Score: 13 024 1:09 PM EDT A fall risk assessment has been complete d for the patient 12/22/2024 2:20 PM EDT A Body Mass Index follow-up plan has been documented for the patient 12/22/2024 2:45 PM EDT documented as of this encounter Care Teams [employer] Assembler Relationship Specialty Start Date End Date Luis Henderson MD [address] [facility] [address] [place] [address] PCP - General Internal Medicine 01/10/22 Luis Henderson MD [address] [employer] [address] [place] [address] 09/04/21 Kasi Jacobs MD [address] [place] [address] Consulting Physician Neurology 05/17/21 Maria Guadalupe Madrgial APRN [address] [place] [address] Nurse Practitioner Urology 12/03/23 documented as of this encounter
[2025-02-14 12:41] VITALS: BP 132/54; PULSE 78; RESP 18; TEMP 36.6; O2SAT 98; BMI 23.7
--- NOTE | 2025-02-14 12:47 | PC.NURSE ---
[facility]EDSIDE
--- NOTE | 2025-02-14 12:48 | CT_ITS ---
FINAL REPORT TECHNIQUE: Axial images were obtained through the chest without contrast. Coronal and sagittal images were obtained and reviewed. This study was performed with techniques to keep radiation doses as low as reasonably achievable, (ALARA). Individualized dose reduction techniques using automated exposure control or adjustment of mA and/or kV according to the patient's size were employed. CLINICAL HISTORY: hx of remote left rib fx, with left chest pain COMPARISON: CTA chest 09/27/2024 FINDINGS: There is no mediastinal mass. Moderate coronary artery calcifications are noted. The heart size is normal. There is no pericardial or pleural effusion. Limited images of the upper abdomen demonstrate a calcified nonobstructing stone in the left renal collecting system. No suspicious infiltrate or nodule identified. Chronic changes are seen in the lung bases. IMPRESSION: No acute process. Reviewed, Interpreted and Dictated by Sidney Oneil MD Transcribed by Lashae Rivera Authenticated and [facility]
--- NOTE | 2025-02-14 12:49 | HMH.EDGENADL ---
Discharge Plan Disposition Patient Disposition: Home, Self-Care Condition: Good Prescriptions Prescriptions: No Action cyanocobalamin (vitamin B-12) 1,000 mcg/mL solution 1,000 mcg IM MONTHLY cholecalciferol (vitamin D3) 50 mcg (2,000 unit) tablet 25 mcg PO DAILY omeprazole 40 mg capsule,delayed release(DR/EC) 40 mg PO DAILY Patient Comments: TAKE 1 CAPSULE BY MOUTH ONCE DAILY levothyroxine 200 mcg tablet 200 mcg PO DAILY Patient Comments: TAKE 1 TABLET BY MOUTH ONCE DAILY Linzess 145 mcg capsule 145 mcg PO DAILY Qty: 30 0RF levetiracetam 500 mg tablet 500 mg PO BID sennosides-docusate sodium [Stimulant Laxative Plus] 8.6-50 mg tablet 1 tab PO HS dantrolene 50 mg Capsule 50 mg PO TID gabapentin 400 mg capsule 400 mg PO TID midodrine 5 mg tablet 5 mg PO BID melatonin 3 mg tablet 6 mg PO HS acetaminophen 500 mg Tablet 1,000 mg PO Q6HP PRN (Reason: Mild Pain (Scale Score 1-4)) diphenhydramine HCl 25 mg Tablet 25 mg PO TIDP PRN (Reason: Itching) polyethylene glycol 3350 17 gram/dose powder 17 g PO DAILY lactulose 10 gram/15 mL Solution 20 g PO DAILYP PRN (Reason: Constipation) tizanidine 2 mg capsule 2 mg PO BID diclofenac sodium 1 % Gel 1 ea TOPICAL Q6HP PRN (Reason: JOINT PAIN) Rx Instructions: apply to single elbow, wrist or hand; for hand includes palm/fingers/back of hand Adults Multivitamin 18 mg iron-400 mcg-25 mcg Tablet 1 tab PO DAILY hydrocodone-acetaminophen 5-325 mg tablet 1 tab PO Q6HP PRN (Reason: Moderate Pain (Scale Score 5-6)) sertraline 100 mg tablet 150 mg PO DAILY prednisone 20 mg tablet 40 mg PO DAILY 5 Days Qty: 10 0RF trazodone 50 mg tablet 50 mg PO HS 30 Days Qty: 30 0RF meropenem-0.9% sodium chloride 1 gram/50 mL piggyback 1 g IV Q8H 7 Days Referrals Follow up/Referrals: Provider,Referral, MD [Primary Care Provider, Medical] - See instructions Activity Restrictions/Add. Instructions Additional Instructions/Restrictions: Please return to the emergency department with any worsening signs or symptoms, please utilize all of your at home medications as prescribed. Please follow-up with your PCP/family doctor as well as other specialist in the upcoming days/weeks. Clinical Impressions Clinical Impression: Rib pain on left side Instructions Patient Instructions: DI for Costochondritis Print Language Print Language: Ukrainian Discharge ED Provider: Pino Thurston General Adult HPI <TERENCE Nash - Last Filed: 02/14/25 14:38> General Chief complaint: Recheck/Abnormal Lab/Rx Stated complaint: Rib Pain Time Seen by Provider: 02/14/25 12:41 Mode of Arrival: EMS Source of Information: Patient and EMS Description of Symptoms (Recalled from ER Triage Doc. by RN): PT IS HALFWAY RESIDENT, SENT FOR EVALUATION. PT STATES SHE WAS PICKED UP WRONG BY NURSES AIDE AND IMMEDIATELY HAD LEFT SIDED PAIN, OCCURED A FEW DAYS AGO SENT BY NH TO REPEAT XR THAT SHOWS RIB FX ON LEFT. PT DENIES PAIN AT THIS TIME History of Present Illness HPI narrative: 64-year-old female presents to the emergency department from residential facility via EMS, for evaluation of a remote left-sided rib fracture, age-indeterminate that was found on x-ray. Patient states that she was picked up wrong by nurses aide , approximately 3 to 4 days ago, had immediate left-sided pain, has remote/data deficient history of osteoporosis. I am unfortunately unable to access outside chest x-ray for confirmation. Patient complains of occasional/intermittent left-sided chest wall/rib pain, denies any fever chills denies shortness of breath, denies cough congestion, denies abdominal pain nausea vomiting constipation diarrhea no urinary type symptomatology. Other past medical history consistent with cerebral palsy, GERD, indwelling suprapubic catheter, patient has been utilizing Tylenol and does have p.o. narcotic as needed listed on her medication list at home, other past medical history of hypothyroid, IBS. Triage vitals unremarkable, patient denies any alcohol tobacco or drug use. Onset (ago): day(s) Related Data Home Medications ?Medication ?Instructions ?Recorded ?Confirmed cyanocobalamin (vitamin B-12) 1,000 mcg IM MONTHLY 11/04/18 02/14/25 1,000 mcg/mL injection solution cholecalciferol (vitamin D3) 50 25 mcg PO DAILY 10/11/19 02/14/25 mcg (2,000 unit) tablet levothyroxine 200 mcg tablet 200 mcg PO DAILY 02/14/23 02/14/25 omeprazole 40 mg capsule,delayed 40 mg PO DAILY 02/14/23 02/14/25 release acetaminophen 500 mg tablet 1,000 mg PO Q6HP PRN Mild Pain 09/27/24 02/14/25 (Scale Score 1-4) dantrolene 50 mg capsule 50 mg PO TID 09/27/24 02/14/25 diclofenac sodium 1 % topical gel 1 ea topical Q6HP PRN JOINT PAIN 09/27/24 02/14/25 diphenhydramine HCl 25 mg tablet 25 mg PO TIDP PRN Itching 09/27/24 02/14/25 gabapentin 400 mg capsule 400 mg PO TID 09/27/24 02/14/25 hydrocodone 5 mg-acetaminophen 325 1 tab PO Q6HP PRN Moderate Pain 09/27/24 02/14/25 mg tablet (Scale Score 5-6) lactulose 10 gram/15 mL oral 20 g PO DAILYP PRN Constipation 09/27/24 02/14/25 solution levetiracetam 500 mg tablet 500 mg PO BID 09/27/24 02/14/25 melatonin 3 mg tablet 6 mg PO HS 09/27/24 02/14/25 midodrine 5 mg tablet 5 mg PO BID 09/27/24 02/14/25 multivit with minerals-iron 18 1 tab PO DAILY 09/27/24 02/14/25 mg-folic ac 400 mcg-vit K 25 mcg tablet (Adults Multivitamin) polyethylene glycol 3350 17 17 g PO DAILY 09/27/24 02/14/25 gram/dose oral powder sennosides 8.6 mg-docusate sodium 1 tab PO HS 09/27/24 02/14/25 50 mg tablet (Stimulant Laxative Plus) sertraline 100 mg tablet 150 mg PO DAILY 09/27/24 02/14/25 tizanidine 2 mg capsule 2 mg PO BID 09/27/24 02/14/25 Previous Rx's ?Medication ?Instructions ?Recorded linaclotide 145 mcg capsule 145 mcg PO DAILY #30 caps 09/21/24 (Linzess) prednisone 20 mg tablet 40 mg (2 x 20 mg) PO DAILY 5 days 09/27/24 #10 tabs trazodone 50 mg tablet 50 mg PO HS 30 days #30 tabs 09/27/24 meropenem 1 gram/50 mL in 0.9% 1 g IV Q8H 7 days 10/07/24 sodium chloride intravenous piggyback Allergies Allergy/AdvReac Type Severity Reaction Status Date / Time metoclopramide (From REGLAN) Allergy Mild I-RASH Verified 12/06/24 09:57 Sulfa (Sulfonamide Allergy Mild I-RASH Verified 12/06/24 09:57 Antibiotics) (SULFA (SULFONAMIDE ANTIBIOTICS)) morphine Allergy Vomiting Verified 12/06/24 09:57 PFSH <TERENCE Nash - Last Filed: 02/14/25 14:38> [facility] Disclaimer: The information contained in this section may have been updated after the patient was seen, as this information can be updated by other users. Medical History (Updated 02/14/25 @ 14:37 by TERENCE Nash) Physical debility Neurogenic bladder Generalized anxiety disorder New onset seizure Osteoporosis History of hypertension Hyperlipidemia GERD (gastroesophageal reflux disease) Depression Surgical History H/O kyphoplasty H/O tubal ligation H/O thyroidectomy Hx of appendectomy Family History Other No significant family history Social History Smoking Status: Never smoker second hand exposure: No alcohol intake: never counseling provided: none substance use type: denies use current occupational status: other Travel in the last 8 weeks?: None household members: spouse housing: house lives independently: No marital status: number of children: 2 current occupational exposures/hazards: No caffeine: Yes Other Medical History Have you received the Flu Vaccine for this season: Yes Have you received the Pneumonia Vaccine: Yes <TERENCE Nash - Last Filed: 02/14/25 14:38> ROS Obtained: Yes All systems reviewed & no additional complaints except as documented Physical Exam <TERENCE Nash - Last Filed: 02/14/25 14:38> General General appearance: alert and in no apparent distress Head Head exam: atraumatic and normocephalic Eye Eye exam: Present PERRL and EOMI ENT ENT exam: Present mucous membranes moist Neck Neck exam: Present normal inspection Chest Chest inspection: Present normal inspection, symmetric chest wall rise, tenderness and other (Mild chest wall tenderness palpation to the left side, no obvious ecchymosis, no obvious signs of trauma or deformity) Respiratory Respiratory exam: Present normal lung sounds bilaterally; Absent respiratory distress Cardiovascular Cardiovascular exam: Present regular rate and normal rhythm Abdominal Exam Abdominal exam: Present soft; Absent tenderness, guarding, rebound or rigidity Extremities Exam Extremities exam: Present normal inspection Neurological Exam Neurological exam: Present alert, oriented X3 and other (GCS 15 at neurological baseline, ongoing CPS symptomatology bedbound at baseline, does move extremities to command.) Psychiatric Psychiatric exam: Present normal affect Skin Skin exam: Present warm and dry Medical Decision Making <TERENCE Nash - Last Filed: 02/14/25 14:38> Medical Records Medical records reviewed: Yes I reviewed the patient's medical records. Screening: Per USPSTF and CDC recommendations, given the prevalence of disease in our region, it is our hospital?s policy to screen for HIV and viral Hepatitis for all patients aged 18 and over and those with ongoing risk factors. Cluas Inquiry Pt receiving controlled substance: No Claus was queried for this patient: No Vital Signs: 02/14/25 12:41 02/14/25 13:30 02/14/25 14:01 Temperature 97.9 F Temperature Source Oral Pulse Rate 71 69 Pulse Rate [Radial] 78 Respiratory Rate 18 Blood Pressure 127/76 124/87 Blood Pressure [Right Arm] 132/54 L Blood Pressure Mean [Right Arm] 80 Blood Pressure Source Blood Pressure Source [Right Arm] Automatic Cuff Blood Pressure Position Blood Pressure Position [Right Arm] Sitting 02 Sat by Pulse Oximetry 98 95 95 Oxygen Delivery Method Room Air 02/14/25 14:30 02/14/25 14:40 02/14/25 15:00 Temperature 98.0 F Temperature Source Oral Pulse Rate 87 87 83 Pulse Rate [Radial] Respiratory Rate 18 Blood Pressure 118/81 118/81 135/83 Blood Pressure [Right Arm] Blood Pressure Mean [Right Arm] Blood Pressure Source Automatic Cuff Blood Pressure Source [Right Arm] Blood Pressure Position Sitting Blood Pressure Position [Right Arm] 02 Sat by Pulse Oximetry 96 98 Oxygen Delivery Method Room Air Orders (Tests/Meds): ORDERS Category Date Time Status CT chest wo con Stat Cat Scan 02/14/25 12:48 Completed Medical Decision Narrative: 64-year-old female presents the emergency department, see HPI for detail past medical history, differential diagnosis, not limited to, rib fracture, pulmonary contusion, pneumonia, costochondritis among others. I discussed patient's case with attending physician Obtain CT chest without contrast for further evaluation/characterization of patient's remote history of left-sided rib fracture. I reviewed the patient's CT chest without contrast along the corresponding radiologic report, no acute process. I discussed the results with the patient and family at the bedside, patient and family agree with the current treatment plan/discharge plan, patient most likely had costochondritis/remote dated the patient nonacute rib fracture, patient is currently not in any pain, patient is cleared to be discharged back to residential facility. Patient was given strict ED return precautions. Patient family voiced understanding agreement current treatment plan/discharge plan. <Pino Thurston MD - Last Filed: 02/15/25 09:21> Vital Signs: 02/14/25 12:41 02/14/25 13:30 02/14/25 14:01 Temperature 97.9 F Temperature Source Oral Pulse Rate 71 69 Pulse Rate [Radial] 78 Respiratory Rate 18 Blood Pressure 127/76 124/87 Blood Pressure [Right Arm] 132/54 L Blood Pressure Mean [Right Arm] 80 Blood Pressure Source Blood Pressure Source [Right Arm] Automatic Cuff Blood Pressure Position Blood Pressure Position [Right Arm] Sitting 02 Sat by Pulse Oximetry 98 95 95 Oxygen Delivery Method Room Air 02/14/25 14:30 02/14/25 14:40 02/14/25 15:00 Temperature 98.0 F Temperature Source Oral Pulse Rate 87 87 83 Pulse Rate [Radial] Respiratory Rate 18 Blood Pressure 118/81 118/81 135/83 Blood Pressure [Right Arm] Blood Pressure Mean [Right Arm] Blood Pressure Source Automatic Cuff Blood Pressure Source [Right Arm] Blood Pressure Position Sitting Blood Pressure Position [Right Arm] 02 Sat by Pulse Oximetry 96 98 Oxygen Delivery Method Room Air Orders (Tests/Meds): ORDERS Category Date Time Status CT chest wo con Stat Cat Scan 02/14/25 12:48 Completed Medical Decision Narrative: 64-year-old female presents the emergency department, see HPI for detail past medical history, differential diagnosis, not limited to, rib fracture, pulmonary contusion, pneumonia, costochondritis among others. I discussed patient's case with attending physician Obtain CT chest without contrast for further evaluation/characterization of patient's remote history of left-sided rib fracture. I reviewed the patient's CT chest without contrast along the corresponding radiologic report, no acute process. I discussed the results with the patient and family at the bedside, patient and family agree with the current treatment plan/discharge plan, patient most likely had costochondritis/remote dated the patient nonacute rib fracture, patient is currently not in any pain, patient is cleared to be discharged back to residential facility. Patient was given strict ED return precautions. Patient family voiced understanding agreement current treatment plan/discharge plan. I was consulted by the KEAGAN, and we discussed the complexity of the problems being addressed.I approved the treatment and management plan for this patient?s care in the Emergency Department, thus performing a substantive portion of the medical decision making.Signed, MD TERRI DickA Critical Care <TERENCE Nash - Last Filed: 02/14/25 14:38> Critical Care Time Critical Care Time: No
--- OUTSIDE RECORDS SUMMARY | 2025-02-14 12:51 | XMS_ITS | Encounter Summary ---
Author Organization [facility] Address [address] [place] [address] Care Team Providers Care Front Desk Team Member Name Role Phone Luis Henderson MD Primary Care Provider [phone] Pcp, No Primary Care Provider Unavailabl e Luis Henderson MD Unavailable [phone] Kasi Jacobs MD Unavailable [phone] Luis Henderson MD Primary Care Provider [phone] Maria Guadalupe Madrigal APRN Unavailable [phone] Reason for Visit * Reason Onset Date Comments HCN - Patient Message 03/21/2021 Patient re quests US results Encounter Details Date Type Department Care Team (Late st Contact Info) Description 03/21/2021 Telephone [facility] SCHEDUL[facility] [address] [place] [address] Maria Guadalupe Madrigal, LIQUID LOADER [address] [place] [address] HCN - Patient Message (Patient requests US results) Social History Tobacco Use Types Packs/Day Years Used Date Smoking Tobacco: Never Alcohol Use Standard Drinks/Week Comments No 0 (1 standard drink = 0.6 oz pure alcohol) Alcoholic Drinks/day: Never Drank Alcohol Comments Unknown Sex and Gender Information Value Date Recorded Sex Assigned at Not on file Legal Sex Female 7:58 PM EDT Gender Identity Not on file Sexual Orientation Not on file COVID-19 Exposure Response Date Recorded In the last month, have you been in contact with someone who was confirmed or suspected to have Coronavirus / COVID-19? No / Unsure 03/01/2021 2:29 PM EDT documented as of this encounter Miscellaneous Notes * Telephone Encounter - Jayashree Godinez - 04/04/2021 2:20 PM EDT Patient returned call. Please call back at listed * Telephone Encounter - Savanah Carrizales - 04/04/2021 11:12 AM EDT Patient Phone Message Reason for Call: Patient is calling back about ultrasound results performed at [facility] Best contact number and optimal time of day to reach caller: [phone] Note: Please do not reply to this message. Follow-up communication and further actions as a result of this message need to be communicated with the patient directly, if the patient is not active onMyChart. If the patient is active on MyChart, they will receive notification of the communication/outcome via MyChart. * Telephone Encounter - Saniya Michel - 03/27/2021 12:51 PM EDT Patient Phone Message Reason for Call: Patient requesting US results Best contact number and optimal time of day to reach caller: [phone] Or [phone] Note: Please do not reply to this message. Follow-up communication and further actions as a result of this message need to be communicated with the patient directly, if the patient is not active onMyChart. If the patient is active on MyChart, they will receive notification of the communication/outcome via MyChart. documented in this encounter Plan of Treatment Upcoming Encounters Date Type Department Care Team (Late st Contact Info) Description 03/23/2025 2:45 PM EDT Procedure Visit [facility] [address] [place] [address] Gerardo Gerber MD [address] [place] [address] 04/01/2025 2:20 PM EDT Office Visit [facility] Urology [address] [place] [address] Maria Guadalupe Madrigal APRN [address] [place] [address] documented as of this encounter Visit Diagnoses Not on filedocumented in this encounter Additional Health Concerns Infection Onset Date Last Indicated Resolved Time 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 documented as of this encounter Care Teams Front Desk Team Member Relationship Specialty Start Date End Date Luis Henderson MD [address] [place] [address] PCP - General 01/19/21 09/03/21 Pcp, [facility] [address] [place] [address] PCP - General Family Medicine 09/04/21 01/09/22 Luis Henderson MD [address] [place] [address] PCP - General Internal Medicine 01/10/22 Luis Henderson MD [address] [place] [address] 09/04/21 Kasi Jacobs MD [address] [place] [address] Consulting Physician Neurology 05/17/21 Maria Guadalupe Madrigal APRN [address] [place] [address] Nurse Practitioner Urology 12/03/23 documented as of this encounter
--- OUTSIDE RECORDS SUMMARY | 2025-02-14 12:51 | XMS_ITS | Encounter Summary ---
Author Organization [facility] Address [address] [place] [address] Care Team Providers Care Appliquer Zigzag Name Role Phone Luis Henderson MD Unavailable [phone] Kasi Jacobs MD Unavailable [phone] Lius Henderson MD Primary Care Provider [phone] Maria Guadalupe Madrigal APRN Unavailable [phone] Reason for Visit * Reason Comments Med Refill Encounter Details Date Type Department Care Team (Late st Contact Info) Description 01/31/2022 Refill [facility] [address] [place] [address] Dian Tovar R [address] [place] [address] Social History Tobacco Use Types Packs/Day Years [...] Exposure Response Date Recorded In the last 10 days, have yo u been in contact with someone who was confirmed or suspected to have Coronavirus/COVID-19? No / Unsure 01/10/2022 8:02 AM EDT documented as of this encounter Miscellaneous Notes * Telephone Encounter - Michelle Almanzar RN - 02/19/2022 1:38 PM EDT Patient will need to schedule appointment in Urology for further refills, may need to contact PCP for refill. documented in this encounter Plan of Treatment Upcoming Encounters Date Type Department Care Team (Late st Contact Info) Description 03/23/2025 2:45 PM EDT Procedure Visit [facility] [address] [place] [address] Gerardo Gerber MD [address] [place] [address] 04/01/2025 2:20 PM EDT Office Visit [facility] Urology [address] [place] [address] Maria Guadalupe Madrigal APRN [address] [place] [address] documented as of this encounter Visit Diagnoses Not on filedocumented in this encounter Additional Health Concerns Infection Onset Date Last Indicated Resolved Time 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 documented as of this encounter Care Teams Appliquer Zigzag Relationship Specialty Start Date End Date Luis Henderson MD [address] [facility] [address] [place] [address] PCP - General Internal Medicine 01/10/22 Luis Henderson MD [address] [place], [place] [address] 09/04/21 Kasi Jacobs MD [address] [place] [address] Consulting Physician Neurology 05/17/21 Maria Guadalupe Madrigal APRN [address] [place] [address] Nurse Practitioner Urology 12/03/23 documented as of this encounter
--- OUTSIDE RECORDS SUMMARY | 2025-02-14 12:51 | XMS_ITS | Encounter Summary ---
Author Organization [facility] Address [address] [place] [address] Care Team Providers Care Cut Out Press Operator Name Role Phone Luis Henderson MD Unavailable [phone] Kasi Jacobs MD Unavailable [phone] Luis Henderson MD Primary Care Provider [phone] Maria Guadalupe Madrigal APRN Unavailable [phone] Encounter Details Date Type Department Care Team (Late st Contact Info) Description 06/19/2024 Lab Requisition [facility] [address] [place] [address] Luis Henderson MD [address] [place] [address] Urinary tract infection, site not specified Social History Tobacco Use Types Packs/Day Years [...] drink first t 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) to steady your nerves or to get [...] on file documented as of this encounter Plan of Treatment Upcoming Encounters Date Type Department Care Team (Late st Contact Info) Description 03/23/2025 2:45 PM EDT Procedure Visit [facility] [address] 1st [place] [address] Gerardo Gerber MD [address] [place] [address] 04/01/2025 2:20 PM EDT Office Visit [facility] Urology [address], [address] [place] [address] Maria Guadalupe Madrigal APRN [address] [place] [address] documented as of this encounter Procedures Procedure Name Priority Date/Time Associated Diagnosis Comments CBC WITH AUTO DIFFERENTIAL Routine 06/19/2024 4:59 PM EDT Urinary tract infection, site not specified COMPREHENSIVE METABOLIC PANEL, PLASMA Routine 06/19/2024 4:59 PM EDT Urinary tract infection, site not specified documented in this encounter Results * (ABNORMAL) CBC and Differential (06/19/2024 4:59 PM EDT) WBC Count 5.92 3.70 - 10.30 10*3/uL LAB HEMATOLOGY METHOD 06/19/2024 7:03 PM EDT [facility] RBC Count 4.49 3.90 - 5.20 10*6/uL LAB HEMATOLOGY METHOD 06/19/2024 7:03 PM EDT [facility] HGB 12.0 11.2 - 15.7 g/dL LAB HEMATOLOGY METHOD 06/19/2024 7:03 PM EDT [facility] HCT 38.2 34.0 - 45.0 % LAB HEMATOLOGY METHOD 06/19/2024 7:03 PM EDT [facility] Platelet Count 164 155 - 369 10*3/uL LAB HEMATOLOGY METHOD 06/19/2024 7:03 PM EDT [facility] MCV 85 79 - 98 fL LAB HEMATOLOGY METHOD 06/19/2024 7:03 PM EDT [facility] MCH 26.7 26.0 - 32.0 pg LAB HEMATOLOGY METHOD 06/19/2024 7:03 PM EDT [facility] MCHC 31.4 30.7 - 35.5 g/dL LAB HEMATOLOGY METHOD 06/19/2024 7:03 PM EDT [facility] RDW 15.7(H) 11.5 - 14.5 % LAB HEMATOLOGY METHOD 06/19/2024 7:03 PM EDT [facility] MPV 11.1 8.8 - 12.5 fL LAB HEMATOLOGY METHOD 06/19/2024 7:03 PM EDT [facility] nRBC 0.0 <=0.0 per 100 WBCs LAB HEMATOLOGY METHOD 06/19/2024 7:03 PM EDT [facility] Differential Type Automated LAB HEMATOLOGY METHOD 06/19/2024 7:03 PM EDT [facility] Neutrophils % 75 % LAB HEMATOLOGY METHOD 06/19/2024 7:03 PM EDT [facility] Lymphocytes % 15 % LAB HEMATOLOGY METHOD 06/19/2024 7:03 PM EDT [facility] Monocytes % 6 % LAB HEMATOLOGY METHOD 06/19/2024 7:03 PM EDT [facility] Eosinophils % 2 % LAB HEMATOLOGY METHOD 06/19/2024 7:03 PM EDT [facility] Basophils % 1 % LAB HEMATOLOGY METHOD 06/19/2024 7:03 PM EDT [facility] Immature Granulocytes % 1 % LAB HEMATOLOGY METHOD 06/19/2024 7:03 PM EDT [facility] Neutrophils Absolute 4.49 1.60 - 6.10 10*3/uL LAB HEMATOLOGY METHOD 06/19/2024 7:03 PM EDT [facility] Lymphocytes Absolute 0.90(L) 1.20 - 3.90 10*3/uL LAB HEMATOLOGY METHOD 06/19/2024 7:03 PM EDT [facility] Monocytes Absolute 0.34 0.30 - 0.90 10*3/uL LAB HEMATOLOGY METHOD 06/19/2024 7:03 PM EDT [facility] Eosinophils Absolute 0.11 0.00 - 0.50 10*3/uL LAB HEMATOLOGY METHOD 06/19/2024 7:03 PM EDT [facility] Basophils Absolute 0.04 0.00 - 0.10 10*3/uL LAB HEMATOLOGY METHOD 06/19/2024 7:03 PM EDT [facility] Immature Granulocytes Absolute 0.04 0.00 - 0.06 10*3/uL LAB HEMATOLOGY METHOD 06/19/2024 7:03 PM EDT [facility] Blood Venous blood specimen / Unknown 06/19/2024 4:59 PM EDT 06/19/2024 6:47 PM EDT Narrative [facility] - 06/19/2024 7:03 PM EDT Therapeutic decision making should be based on absolute values, rather than percentages. us Luis Henderson MD LAB BLOOD ORDERABLES Final R esult [facility] [address] [place] [address] * (ABNORMAL) Comprehensive metabolic panel (06/19/2024 4:59 PM EDT) Glucose, Plasma 102(H) 74 - 99 mg/dL 06/19/2024 7:03 PM EDT [facility] BUN, Plasma 20 8 - 23 mg/dL 06/19/2024 7:03 PM EDT [facility] Creatinine, Plasma 0.34(L) 0.60 - 1.10 mg/dL 06/19/2024 7:03 PM EDT [facility] BUN/Creatinine Ratio 59 06/19/2024 7:03 PM EDT [facility] Sodium, Plasma 139 136 - 145 mmol/L 06/19/2024 7:03 PM EDT [facility] Potassium, Plasma 4.1 3.6 - 4.9 mmol/L 06/19/2024 7:03 PM EDT [facility] Chloride, Plasma 105 97 - 107 mmol/L 06/19/2024 7:03 PM EDT [facility] CO2, Plasma 24 22 - 29 mmol/L 06/19/2024 7:03 PM EDT [facility] Anion Gap 10 6 - 16 mmol/L 06/19/2024 7:03 PM EDT [facility] Total Calcium, Plasma 8.3(L) 8.9 - 10.2 mg/dL 06/19/2024 7:03 PM EDT [facility] Total Protein 6.3 6.3 - 7.9 g/dL 06/19/2024 7:03 PM EDT [facility] Albumin, Plasma 4.0 3.5 - 5.2 g/dL 06/19/2024 7:03 PM EDT [facility] AST, Plasma 16 10 - 35 U/L 06/19/2024 7:03 PM EDT [facility] ALT, Plasma 13 10 - 35 U/L 06/19/2024 7:03 PM EDT [facility] Alkaline Phosphatase, Plasma 93 46 - 142 U/L 06/19/2024 7:03 PM EDT [facility] Total Bilirubin, Plasma <0.2(L) 0.2 - 1.1 mg/dL 06/19/2024 7:03 PM EDT [facility] eGFRcr 113.7 mL/min/1.7 3m*2 06/19/2024 7:03 PM EDT [facility] Comment:Reported eGFRcr in m L/min/1.73m2 is based the CKD-EPI 2020 equation that does not use a race coefficient. Blood Venous blood specimen / Unknown 06/19/2024 4:59 PM EDT 06/19/2024 6:47 PM EDT Luis Henderson MD LAB BLOOD ORDERABLES Final R esult [facility] [address] [place] [address] documented in this encounter Visit Diagnoses Diagnosis Urinary tract infection, site not specified documented in this encounter Additional Health Concerns Infection Onset Date Last Indicated Resolved Time 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 Assessment Noted Time PHQ-9 Depression Total Score: 13 024 1:09 PM EDT A fall risk assessment has been complete d for the patient 06/04/2024 1:37 PM EDT A Body Mass Index follow-up plan has been documented for the patient 06/04/2024 3:09 PM EDT documented as of this encounter Care Teams Cut Out Press Operator Relationship Specialty Start Date End Date Luis Henderson MD [address] [place] [address] PCP - General Internal Medicine 01/10/22 Luis Henderson MD [address] [place] [address] 09/04/21 Kasi Jacobs MD [address] [place] [address] Consulting Physician Neurology 05/17/21 Maria Guadalupe Madrigal APRN [address] [place] [address] Nurse Practitioner Urology 12/03/23 documented as of this encounter
--- OUTSIDE RECORDS SUMMARY | 2025-02-14 12:51 | XMS_ITS | Encounter Summary ---
Author Organization [facility] Address [address] 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) to steady your nerves or to get [...] Description 03/23/2025 2:45 PM EDT Procedure Visit [facility] [address], [address] [place] [address] Gerardo Gerber MD [address] [place] [address] 04/01/2025 2:20 PM EDT Office Visit [facility] Urology [address], [address] [place] [address] Maria Guadalupe Madrigal APRN [address] [place] [address] documented as of this encounter [...] documented as of this encounter Care Teams Bead Picker Relationship Specialty Start Date End Date Luis Henderson MD [address] [place] [address] PCP - General Internal Medicine 01/10/22 Luis Henderson MD [address] [place] [address] 09/04/21 Kasi Jacobs MD [address] [place] [address] Consulting Physician Neurology 05/17/21 Maria Guadalupe Madrigal APRN [address] [place] [address] Nurse Practitioner Urology 12/03/23 documented as of this encounter
--- OUTSIDE RECORDS SUMMARY | 2025-02-14 12:51 | XMS_ITS | Clinical Summary ---
Author Organization [facility] Address [address] [place] [address] Care Team Providers Care Residential Tech Name Role Phone Luis Henderson MD Unavailable [phone] Kasi Jacobs MD Unavailable [phone] Luis Henderson MD Primary Care Provider [phone] Maria Guadalupe Madrigal APRN Unavailable [phone] Allergies Active Allergy Reactions Criticality Noted Date Comments Methenamine Itching,Rash,Swelling High 08/27/2012 Methotrexate Other - please docum ent in the comment field Low 04/24/2024 Metoclopramide Other - please docum ent in the comment field Low 01/10/2016 Petechiae on her legs Morphine Unknown - Patient st ates they do not know rxn details Low 10/13/2020 Metoclopramide Unknown - Patient st ates they do not know rxn details Low 09/04/2021 Sulfa Drugs Rash Low 09/05/2021 Sulfacetamide Rash Low 01/03/2010 Medications Anoro Ellipta 62.5-25 MCG/INH aerosol powder 2 Active fluticasone (Flonase) 50 MCG/ACT nasal spray Administer 2 sprays into each nostril 1 (one) time each day if needed for rhinitis. Shake gently. Before first use, prime pump. After use, clean tip and replace cap. Active sertraline (Zoloft) 100 MG tablet Take 2 tablets (200 mg) by mouth 2 (two) times a day. Active ALBUTEROL SULFATE HFA IN Inhale 2 puffs 4 (four) times a day if needed. Active omeprazole (PriLOSEC) [address] capsule Take 1 capsule (40 mg) by mouth 1 (one) time each day. Do not crush or chew. Active levothyroxine (Synthroid, Levoxyl) 200 MCG tablet Take 1 tablet (200 mcg) by mouth 1 (one) time each day before breakfast. Active cholecalciferol (Vitamin D-3) 25 MCG (1000 UT) tablet Take 1 tablet (1,000 Units) by mouth 1 (one) time each day. Active Misc. Devices misc Please discontinue Ms. Pringle's jacobs catheter. Will resume CIC with the assistance of her per patient request. Thank you. 1 each 3 Active potassium chloride CR (Klor-Con) 10 MEQ ER tablet Take 1 tablet (10 mEq) by mouth 2 (two) times a day. Do not crush, chew, or split. Active cyanocobalamin (Vitamin B-12) 1000 MCG/ML injection Inject 1 mL (1,000 mcg) into the muscle every 30 (thirty) days. Last injection was on 02/12/2023 . Active betamethasone dipropionate (Diprosone) 0.05 % lotion Apply 1 Application topically 2 (two) times a day if needed for irritation or rash. For flares Active LORazepam (Ativan) 0.5 MG tablet Take 1 tablet (0.5 mg) by mouth 2 (two) times a day if needed for anxiety for up to 3 days. 6 tablet 3 Active Additional Information Patient not taking.Reported on 12/22/2024 acetaminophen (Tylenol) 500 MG tablet Take 2 tablets (1,000 mg) by mouth every 6 (six) hours. 100 tablet 3 Active dantrolene (Dantrium) 50 MG capsule Take 1 capsule (50 mg) by mouth 3 (three) times a day. 90 capsule 2 3 Active diclofenac (Voltaren) 1 % topical gel Place 1 Application on the skin 4 (four) times a day if needed (Muscle/Joint pain). Apply as directed to areas of pain 3 Active Additional Information Patient not taking.Reported on 12/22/2024 midodrine (Proamatine) 5 MG tablet Take 1 tablet (5 mg) by mouth 2 (two) times a day. 60 tablet 3 Active methocarbamol (Robaxin) 500 MG tablet Take 2 tablets (1,000 mg) by mouth every 6 (six) hours for 10 days. 80 tablet 3 Active Additional Information Patient not taking.Reported on 12/22/2024 gabapentin (Neurontin) 400 MG capsule Take 1 capsule (400 mg) by mouth 3 (three) times a day. Active Multiple Vitamin (multivitamin) capsule Take 1 capsule by mouth 1 (one) time each day. Active oxyCODONE (Roxicodone) 5 MG immediate release tablet Activ e Doxycycline Hyclate 50 MG tablet Take 100 mg by mouth. Active doxycycline (Vibramycin) 100 MG capsule Take 1 capsule by mouth twice a day for 6 months as Suppressive/Con solidation therapy for your back infection. 60 capsule 5 3 Active Additional Information Patient not taking.Reported on 12/22/2024 ALPRAZolam (Xanax) 0.5 MG tablet 3 Active doxycycline (Vibra-Tabs) 100 MG tablet 3 Active Catheters miscIndications: Indwelling Jacobs catheter present Please exchange catheter at least monthly, more often if needed. 1 each 4 Active melatonin 3 MG tablet Take 1 tablet (3 mg) by mouth every night. 4 Active traZODone (Desyrel) 50 MG tablet Take 1 tablet (50 mg) by mouth every night. 4 Active polyethylene glycol (Miralax) 17 GM/SCOOP powder Take 17 g by mouth 1 (one) time each day. 4 Active lactulose (Chronulac) 10 GM/15ML oral solution Take 15 mL (10 g) by mouth if needed. 4 Active HYDROcodone-acet aminophen (Valyermo) 5-325 MG tablet Take by mouth every 6 (six) hours. 4 Active diphenhydrAMINE (Benadryl) 25 MG tablet Take by mouth every 4 (four) hours if needed. Active levETIRAcetam (Keppra) 500 MG tabletIndication s:Focal Seizure Take 1/2 tab PO BID for two weeks then 1 tab PO BID 60 tablet 3 4 Active Linzess 290 MCG capsule Take 1 capsule (290 mcg) by mouth 1 (one) time each day before breakfast. 4 Active levoFLOXacin (Levaquin) 250 MG tablet 4 Active Linzess 72 MCG capsule capsule Take by mouth 1 (one) time each day before breakfast. 4 Active tiZANidine (Zanaflex) 2 MG capsule Take 1 capsule (2 mg) by mouth 2 (two) times a day. 4 Active Stimulant Laxative 8.6-50 MG tablet 4 Active Catheters miscIndications: Neurogenic bladder,Indwelli ng Jacobs catheter present,Suprapub ic catheter (CMS/HCC) Please change suprapubic catheter once monthly or more often as needed with 18 tamazight latex catheter Please flush catheter at least twice per day with 50 mL normal saline with catheter tip syringe, more often if needed. May need to aspirate urine, then flush. Call [place] [facility] if issues 90 each 5 Active mirabegron ER (Myrbetriq) 50 MG tabletIndication s:Neurogenic bladder,Indwelli ng Jacobs catheter present,Suprapub ic catheter (CMS/HCC) Take 1 tablet (50 mg) by mouth 1 (one) time each day. 30 tablet 11 5 10/01/19 26 Active hydrocortisone 1 % cream 5 Active meropenem (Merrem) injection 5 Active bisacodyl (Dulcolax) 10 MG suppository 5 Active Prucalopride Succinate (Motegrity) 2 MG tablet Take 1 tablet by mouth in the morning. Active Anti-Dandruff 1 % shampoo 5 Active Active Problems Problem Noted Date Diagnosed Date Indwelling Jacobs catheter present 12/03/2023 Recurrent UTI 12/03/2023 Feeding difficulty in adult 03/20/2023 Overview (04/01/2023): 03/20: MBS performed Diet recs- Easy to chew 7, thin liquids single sips only Suspected malignant neoplasm 03/17/2023 Overview (04/01/2023): Neurosurgery following -MRI thoracic and lumbar spine reviewed, concerning for pathologic fractures 2/2 metastases -Please obtain MRI cervicalm thoracic, and lumbar spine w/w/o contrast -Obtain CT C/A/P to evaluate for neoplasm Hematology/Oncology consulted -MRI brain w/wo IV contrast ordered- 1. No evidence of intracranial metastatic disease. -serum markers ordered Osteomyelitis of vertebra of thoracic region 06/2023 Overview (04/01/2023): Suspected per imaging NSGY following Cultures sent ID consulted - daptomycin 8mg/kg (500mg) every 24 hours for 6 weeks (thru 05/01) - Single lumen picc Fall, initial encounter 03/16/2023 Overview (04/01/2023): Admit 7/8 H&P 7/8 Tertiary 7/9 Hematoma 03/16/2023 Overview (04/01/2023): There is a 4.9 x 2.5 x 5.2 cm prevertebral/paravertebral soft tissue lesion centered at T2 and T3 vertebral bodies. There is resultant compression and narrowing of the esophagus and to some degree over the trachea. Marked narrowing of the trachea at T3 level between paraspinal lesion and right subclavian artery Thoracic consult Asymptomatic (swallowing/breathing at baseline) Will likely resorb with time, no acute intervention Physical debility 03/16/2023 Overview (04/01/2023): Due to cerebral palsy and age PT/OT Chronic anemia 03/16/2023 Overview (04/01/2023): Monitor/trend H&H stable; no transfusion at this time Hypoalbuminemia 03/16/2023 Overview (04/01/2023): Reg diet Supplements as indicated Compression fracture of T3 vertebra 03/16/2023 Overview (04/01/2023): NSGY consulted - MRI thoracic and lumbar spine reviewed, concerning for pathologic fractures 2/2 metastases. - Please obtain MRI cervicalm thoracic, and lumbar spine w/w/o contrast - CT C/A/P to evaluate for neoplasm - negative for mets disease - 03/18: T2-3 laminectomy for decompression - Repeat T spine MRI revealing MRI thoracic spine w/w/o contrast with stroke sequences without clear cord infarction (completed) GERD (gastroesophageal reflux disease) Overview (04/01/2023): protonix Depression 03/16/2023 Overview (04/01/2023): Home ativan and zoloft resumed Neuropathy 03/16/2023 Overview (04/01/2023): Resume rika Neurogenic bladder 03/19/2022 Overview (03/16/2023): Check residuals as needed Cerebral palsy 09/04/2021 Overview (04/01/2023): Spasticity treatment per PMR: 25mg TID for 7 days, then increase to 50mg TID for 7 days, then consider an increase or continue medication at current dose Resolved Problems Problem Noted Date Diagnosed Date Resolved Date Hyperglycemia 03/16/2023 03/25/2023 Overview (03/22/2023): Likely due to trauma Electrolyte abnormality 03/16/202303/09 Overview (03/22/2023): Hyponatremia Hypokalemia Hypocalcemia Hypomagnesemia - Replete, monitor, reg diet Seizure 03/16/2023 03/26/2023 Overview (03/26/2023): Determine plan for seizure medication given patient reported history of seizures There was a concern for untreated seizure disorder but her primary care doctor states that she has never had seizure disorder Atrophic vaginitis 03/19/2022 Incomplete emptying of bladder 03/19/2022 03/16/2023 Recurrent UTI 03/19/2022 03/22/2023 Overview (03/16/2023): Nasreen 03/15 Encounters Date Type Department Care Team Description 12/22/2024 2:30 PM EDT Procedure [facility] [address] [place] [id number] Gerardo Gerber MD Cervical dystonia (Primary Dx) 12/22/2024 Travel from Last 3 Months Immunizations Immunization Administration Dates Next Due Influenza, High-dose, Split Virus, Trivalent, Injectable, preservative free 06/26/2018 Influenza, injectable, quadrivalent 06/02/2017,1 ,06/26/2015 Influenza, injectable, quadr ivalent, preservative free 07/03/2021,07/24/2020,07/06/2019 Influenza, seasonal, injectable 06/14/20 14,06/22/2013,06/29/2012,2010 TD (adult), 2 Lf tetanus tox oid, preservative free, adsorbed 11/14/1996 Tetanus toxoid, adsorbed 02/26/2012 Family History Medical History Relation Name Comments Heart attack Father Hypertension Father Pancreatic cancer Mother Relation Name Status Comments Father Mother Social History Tobacco Use Types Packs/Day Years [...] 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 0 03/16/2023 CAGE Questionnaire Score 0 023 PHQ-2A Answer Date Recorded Patient Health Questionnaire-2 Score 1 04/17/2023 Comments No Sex and Gender Information Value Date Recorded Sex Assigned at Not on file Legal Sex Female 7:58 PM EDT Gender Identity Not on file Sexual Orientation Not on file Last Filed Vital Signs Vital Sign Reading Time Taken Comments Blood Pressure 108/66 12/22/2024 2:20 PM EDT Pulse 96 12/22/2024 2:20 PM EDT Temperature 36.9 C (98.4 F) 10/08/2024 10:30 PM EST Respiratory Rate 18 10/08/2024 6:55 PM EST Oxygen Saturation 96% 12/22/2024 2:20 PM EDT Inhaled Oxygen Concentration - - Weight 61.2 kg (135 lb) 12/22/2024 2:20 PM EDT Height 167.6 cm (5' 6 ) 12/22/2024 2:20 PM EDT Body Mass Index 21.79 12/22/2024 2:20 PM EDT Plan of Treatment Upcoming Encounters Date Type Department Care Team (Late st Contact Info) Description 03/23/2025 2:45 PM EDT Procedure Visit [facility] [address] [place] [address] Gerardo Gerber MD [address] [place] [address] 04/01/2025 2:20 PM EDT Office Visit [facility] [address] [place] [address] Maria Guadalupe Madrigal APRN [address] [place] [address] Health Maintenance Due Date Last Done Comments [facility]-Bone Density Scan 1958 [facility]-Medicare Annual Wellness (AWV) 1960 [facility]-Infant/Child/Adol SDOH Screenings 1960 [facility]- SDOH Screenings 1976 [facility]-Adult SDOH Screenings 1976 [facility]-DTaP,Tdap,and Td Vaccines (1 - Tdap) 11/15/1996 11/14/1996 CT Colonography 2003 Colonoscopy 2003 FIT-DNA 2003 FIT 2003 FOBT 2003 Sigmoidoscopy 2003 [facility]-Colorectal Cancer Screening 2003 [facility]-Breast Cancer Screening 2008 [facility]-Pneumococcal Vaccine: 50+ Years (1 of 1 - PCV) 2008 [facility]-Zoster Vaccines (1 of 2) 2008 [id number] Vaccine (2 - season) 2024 12/13/2020 [facility]-Influenza Vaccine (Season Ended) 2025 07/03/2021, 07/24/2020, 07/06/2019, Additional history exists [facility]-Depression Screening 06/04/2025 06/04/2024, 03/08 [facility]-RSV Vaccine: 60+ Years or (1 - 1-dose 75+ series) 2033 [facility]-Hepatitis C Screening Completed 2023, 03/15/2023, 09/04/2021 HPV Vaccines Aged Out No longer eligi ble based on patient's age to complete this topic [facility]-HIB Vaccines Aged Out No longer e ligible based on patient's age to complete this topic [facility]-Hepatitis A Vaccines Aged Out No longer eligible based on patient's age to complete this topic [facility]-IPV Vaccines Aged Out No longer e ligible based on patient's age to complete this topic [facility]-Rotavirus Vaccines Aged Out No lo nger eligible based on patient's age to complete this topic Procedures Procedure Name Priority Date/Time Associated Diagnosis Comments HEPATITIS C ANTIBODY - ED W/REFLEX TO HCV QUANT PCR STAT 05/06/2024 1:09 AM EDT from Last 3 Months or Most Recently Relevant to Health Maintenance Results * Hepatitis C Antibody - ED (05/06/2024 1:09 AM EDT) Hepatitis C Antibody Negative Negative 05/06/2024 2:56 AM EDT [facility] Blood Venous blood specimen / Unknown Venipuncture / Unknown 05/06/2024 1:09 AM EDT 05/06/2024 2:06 AM EDT us Sallie Cervantes DO LAB BLOOD ORDERABLES Final Res ult [facility] [address] [place] [address] from Last 3 Months or Most Recently Relevant to Health Maintenance Additional Health Concerns Infection Onset Date Last Indicated 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 Insurance [place]ID-[place] MED[place] Advance Directives Documents on File Type Date Recorded Patient Clinical Cytogeneticist Scientist Expl georgette Advance Directives and Karina medina Will 03/28/2023 11:45 AM * Full Code (Latest Code Status on File) Date Activated Date Inactivated Comments 03/16/2023 12:16 AM 04/02/2023 11:31 AM Question Answer Comments Patient has decision-making capacity? Yes * Full Code Date Activated Date Inactivated Comments 09/04/2021 10:21 PM 09/06/2021 3:41 PM Patient h as living will. Ex will bring in documents of living will tomorrow. Question Answer Comments Patient has decision-making capacity? No Healthcare Surrogate: Healthcare POA Care Teams Residential Tech Relationship Specialty Start Date End Date Luis Henderson MD [address] [place] [address] PCP - General Internal Medicine 01/10/22 Luis Henderson MD [address] [place] [address] 09/04/21 Kasi Jacobs MD [address] [place] [id number] Consulting Physician Neurology 05/17/21 Maria Guadalupe Madrigal APRN [address] [place] [address] Nurse Practitioner Urology 12/03/23
--- NOTE | 2025-02-14 13:00 | PC.NURSE ---
PT TO CT
--- NOTE | 2025-02-14 13:02 | PC.NURSE ---
pt gone for CT at this time via bed with radar mechanic
--- NOTE | 2025-02-14 13:10 | PC.NURSE ---
pt back from CT at this time via bed with graduate assistant athletic trainer
[2025-02-14 13:30] VITALS: BP 127/76; PULSE 71; O2SAT 95
--- NOTE | 2025-02-14 13:35 | PC.NURSE ---
PT PROVIDED WATER, AT BEDSIDE. NO NEEDS FURTHER NEEDS AT THIS TIME. CALL LIGHT WITHIN REACH
[2025-02-14 14:01] VITALS: BP 124/87; PULSE 69; O2SAT 95
[2025-02-14 14:30] VITALS: BP 118/81; PULSE 87; O2SAT 96
[2025-02-14 14:40] VITALS: BP 118/81; PULSE 87; RESP 18; TEMP 36.7; O2SAT 96
--- NOTE | 2025-02-14 14:40 | PC.NURSE ---
REPORT CALLED TO TREMAYNE AT [facility]
--- NOTE | 2025-02-14 14:56 | PC.NURSE ---
Called EMS to advise them of the BLS transfer back to [facility]
[2025-02-14 15:00] VITALS: BP 135/83; PULSE 83; O2SAT 98
== END 2025-02-14 15:15 | disposition home or self-care (01) ==
PROVIDERS: Emergency Provider Emergency Medicine
DX: R07.81 Pleurodynia (principal); I10 Essential (primary) hypertension; E78.5 Hyperlipidemia, unspecified
CPT/HCPCS: 71250; 99284

== ENCOUNTER 2025-02-15 13:29 | Day surgery (SDC) | payer MEDICARE, MEDICAID, SELFPAY ==
[2025-02-15 13:39] VITALS: BP 111/69; PULSE 93; RESP 16; O2SAT 92; BMI 20.5
[2025-02-15] MEDS: DEXAMETHASONE 10MG/ML 1ML VIAL 10 MG (13:53)
[2025-02-15] MEDS: BUPIVACAINE 0.25% 10ML INJ 25 MG IJ (13:53)
[2025-02-15] MEDS: LIDOCAINE 1% 5ML PF VIAL 5 ML (13:53)
[2025-02-15 13:54] VITALS: BP 111/69; PULSE 93; RESP 18; O2SAT 92
[2025-02-15 13:55] VITALS: BP 111/69; PULSE 93; RESP 18; O2SAT 92
[2025-02-15 14:05] VITALS: BP 106/75; PULSE 100; RESP 16; O2SAT 96
--- NOTE | 2025-02-15 14:34 | P.PCN_ITS ---
Procedure Date: 02/15/25 Time: 14:00 Anesthesiologist:: Francisco Javier Mcdonald CRNA Complications:: None Pre-procedure Diagnosis:: Bilateral trochanteric bursitis Post-procedure Diagnosis:: Same Indications for Procedure:: Patient is a very pleasant 64-year-old female who comes our clinic today for bilateral trochanteric bursa injections. She has extreme point tenderness over the bilateral trochanteric bursa area. She describes the pain as constant, dull, sharp. She is wheelchair-bound. No ambulation. Procedure Details:: Procedure: Bilateral trochanteric bursa joint injections under fluoroscopy Informed consent was obtained and the risks and benefits of the procedure were explained to the patient.~ The patient was taken to the procedure room and noninvasive monitors were placed including a noninvasive blood pressure cuff and pulse oximeter.~ The patient was placed prone on the procedure table. Both hips were cleansed using Betadine as a cleansing solution. C-arm fluoroscopy was used to view the right trochanteric bursa joint.~ The skin and subcutaneous tissues were anesthetized using lidocaine 1.5% and a 25-gauge needle.~ After this, a 22- gauge spinal needle was inserted under fluoroscopic guidance into the inferior aspect of the right trochanteric bursa.~ Omnipaque dye was injected and good spread was seen throughout the joint.~ After this, approximately 5 mL of bupivacaine, 0.25% and Depo-Medrol, 40 mg was incrementally injected into the right sacroiliac joint. We then moved to the left trochanteric bursa joint.~ The skin and subcutaneous tissues were anesthetized using lidocaine 1.5% and a 25-gauge needle.~ After th is, a 22-gauge spinal needle was inserted under fluoroscopic guidance into the inferior aspect of the left trochanteric bursa joint.~ Omnipaque dye was injected and good spread was seen throughout the joint. After this, approximately 5 mL of bupivacaine, 0.25% and Depo-Medrol, 40 mg was incrementally injected into the left sacroiliac joint.~ The patient tolerated the procedure well with no complications. The patient was observed in the Pain Clinic and then was discharged home neurologically intact. Plan and Disposition:: Patient was discharged without incident.
== END 2025-02-15 14:05 | disposition home or self-care (01) ==
LOC: SC.PAINP 13:31
PROVIDERS: PCP Pediatrics; Visit Provider Nurse Anesthetist, Certified Registered
DX: M70.62 Trochanteric bursitis, left hip (principal); M70.61 Trochanteric bursitis, right hip; Z99.3 Dependence on wheelchair; N31.9 Neuromuscular dysfunction of bladder, unspecified; F41.1 Generalized anxiety disorder; M81.0 Age-related osteoporosis without current pathological fracture; I10 Essential (primary) hypertension; E78.5 Hyperlipidemia, unspecified; K21.9 Gastro-esophageal reflux disease without esophagitis; F32.A Depression, unspecified; Z79.899 Other long term (current) drug therapy; Z79.890 Hormone replacement therapy
CPT/HCPCS: 20610; 77002; J0665; J1100; J2003

== ENCOUNTER 2025-02-17 11:03 | Day surgery (SDC) | payer MEDICARE, MEDICAID, SELFPAY ==
[2025-02-16 11:25] VITALS: BMI 23.6
[2025-02-17 11:19] VITALS: BP 111/84; PULSE 76; RESP 16; TEMP 36.3; O2SAT 94
[2025-02-17] MEDS: LACTATED RINGERS 1000ML 1,000 ML 50 ML IV (11:31)
--- NOTE | 2025-02-17 11:49 | EXP.HP ---
History of Present Illness *Admission Date: 02/17/25 *Reason for visit:: Globus, reflux and hoarseness *History of present illness: Mrs. Carey is a 64-year-old female who is here for diagnostic EGD secondary to reflux and globus sensation with hoarseness and voice weakness. The examination is deemed medically necessary for diagnostic EGD. The patient has been seen, interviewed and examined prior to the procedure by both myself and the anesthesia provider. [facility] Disclaimer: The information contained in this section may have been updated after the patient was seen, as this information can be updated by other users. Medical History Physical debility Neurogenic bladder Generalized anxiety disorder New onset seizure Osteoporosis History of hypertension Hyperlipidemia GERD (gastroesophageal reflux disease) Depression Surgical History H/O kyphoplasty H/O tubal ligation H/O thyroidectomy Hx of appendectomy Family History Other No significant family history Social History Smoking Status: Never smoker second hand exposure: No alcohol intake: never counseling provided: none substance use type: denies use current occupational status: other Travel in the last 8 weeks?: None household members: spouse housing: house lives independently: No marital status: number of children: 2 current occupational exposures/hazards: No caffeine: Yes Have you lived/traveled outside US in past 30 days?: No Contact w/someone who lives/traveled outside US past 30 days?: No Exposure to someone with infectious disease in past 14 days?: No Do you have a fever (greater than 100.4 F or 38 C)?: No Have you tested positive for COVID-19?: No Exposed to someone with COVID-19 in past 14 days?: No Do you have a sore throat?: No Do you have a cough?: No Do you have any weakness?: No Do you have any diarrhea?: No Are you experiencing any unusual bleeding?: No Do you have any muscle aches/pain?: No Do you have any abdominal pain?: No Are you experiencing loss of taste or smell?: No Other Medical History Have you received the Flu Vaccine for this season: No Have you received the Pneumonia Vaccine: No Review of Systems Review of Systems Review of systems (narrative): Negative *Cardiovascular Comments: Negative *Gastrointestinal Comments: Negative *Genitourinary Comments: Negative *Musculoskeletal Comments: Negative *Neurologic Comments: Negative Meds Home Medications and Allergies Home Medications ?Medication ?Instructions ?Recorded ?Confirmed ?Type cyanocobalamin (vitamin B-12) 1,000 mcg IM MONTHLY 11/04/18 02/17/25 History 1,000 mcg/mL injection solution cholecalciferol (vitamin D3) 50 25 mcg PO DAILY 10/11/19 02/17/25 History mcg (2,000 unit) tablet levothyroxine 200 mcg tablet 200 mcg PO DAILY 02/14/23 02/17/25 History omeprazole 40 mg capsule,delayed 40 mg PO DAILY 02/14/23 02/17/25 History release linaclotide 145 mcg capsule 145 mcg PO DAILY #30 caps 09/21/24 02/17/25 Rx (Linzess) acetaminophen 500 mg tablet 1,000 mg PO Q6HP PRN Mild Pain 09/27/24 02/17/25 History (Scale Score 1-4) dantrolene 50 mg capsule 50 mg PO TID 09/27/24 02/17/25 History diclofenac sodium 1 % topical gel 1 ea topical Q6HP PRN JOINT PAIN 09/27/24 02/17/25 History diphenhydramine HCl 25 mg tablet 25 mg PO TIDP PRN Itching 09/27/24 02/17/25 History gabapentin 400 mg capsule 400 mg PO TID 09/27/24 02/17/25 History hydrocodone 5 mg-acetaminophen 325 1 tab PO Q6HP PRN Moderate Pain 09/27/24 02/17/25 History mg tablet (Scale Score 5-6) lactulose 10 gram/15 mL oral 20 g PO DAILYP PRN Constipation 09/27/24 02/17/25 History solution levetiracetam 500 mg tablet 500 mg PO BID 09/27/24 02/17/25 History melatonin 3 mg tablet 6 mg PO HS 09/27/24 02/17/25 History midodrine 5 mg tablet 5 mg PO BID 09/27/24 02/17/25 History multivit with minerals-iron 18 1 tab PO DAILY 09/27/24 02/17/25 History mg-folic ac 400 mcg-vit K 25 mcg tablet (Adults Multivitamin) polyethylene glycol 3350 17 17 g PO DAILY 09/27/24 02/17/25 History gram/dose oral powder prednisone 20 mg tablet 40 mg (2 x 20 mg) PO DAILY 5 days 09/27/24 02/17/25 Rx #10 tabs sennosides 8.6 mg-docusate sodium 1 tab PO HS 09/27/24 02/17/25 History 50 mg tablet (Stimulant Laxative Plus) sertraline 100 mg tablet 150 mg PO DAILY 09/27/24 02/17/25 History tizanidine 2 mg capsule 2 mg PO BID 09/27/24 02/17/25 History trazodone 50 mg tablet 50 mg PO HS 30 days #30 tabs 09/27/24 02/17/25 Rx meropenem 1 gram/50 mL in 0.9% 1 g IV Q8H 7 days 10/07/24 02/17/25 Rx sodium chloride intravenous piggyback New Prescriptions to Start Prescriptions: Allergies Allergy/AdvReac Type Severity Reaction Status Date / Time metoclopramide (From REGLAN) Allergy Mild I-RASH Verified 02/16/25 11:24 Sulfa (Sulfonamide Allergy Mild I-RASH Verified 02/16/25 11:24 Antibiotics) (SULFA (SULFONAMIDE ANTIBIOTICS)) morphine Allergy Vomiting Verified 02/16/25 11:24 Exam Data for Last 24 hours Vital signs and Labs for Last 24 Hours: Temp Pulse Resp BP Pulse Ox O2 Del Method 97.3 F L 76 16 111/84 94 L Room Air 02/17/25 11:19 02/17/25 11:19 02/17/25 11:19 02/17/25 11:19 02/17/25 11:19 02/17/25 11:19 I & O for Last 24 hours: Intake & Output 02/14/25 02/15/25 02/16/25 02/17/25 23:59 23:59 23:59 23:59 Weight 146 lb *Routine HEENT Exam Head: Present normocephalic Eye: Present EOMI and PERRL ENT: Present mucous membranes moist *Routine Neck Exam Neck: Present supple *Routine Respiratory Exam Respiratory: Present CTA bilaterally *Routine Cardiovascular Exam Cardiovascular: Present RRR *Routine Abdominal Exam Abdominal: Present soft and normoactive bowel sounds; Absent tenderness *Routine Rectal Exam Rectal:: deferred *Routine Genitalia Exam Genitalia:: deferred *Routine Extremities Exam Extremities: Absent cyanosis, clubbing or edema *Routine Skin Exam Skin: Present warm; Absent rash *Routine Neurological Exam Neurological: Present alert and oriented X3 Assessment and Plan *Assessment and plan (1) Globus sensation: Status: Acute Category: Medical Code(s): R09.A2 - Foreign body sensation, throat (2) Hoarseness: Status: Acute Category: Medical Code(s): R49.0 - Dysphonia (3) GERD (gastroesophageal reflux disease): Status: Acute Category: Medical Code(s): K21.9 - Gastro-esophageal reflux disease without esophagitis (4) Weakness of voice: Status: Acute Category: Medical Code(s): R49.8 - Other voice and resonance disorders Plan A/P: 1. Globus sensation with GERD, hoarseness and weakness of voice is the preprocedural diagnosis. The patient will be anesthetized/sedated using MAC sedation. The patient has been seen and examined. Cardiac and lung assessment prior to the examination is stable. Proceed with planned diagnostic EGD.
--- NOTE | 2025-02-17 11:52 | P.PCN_ITS ---
[facility] Procedure Note Date: 02/17/25 Time: 12:04 Procedure Note:: Upper Endoscopy Procedure Report: Esophagogastroduodenoscopy with cold biopsies and TTS balloon dilation Endoscopost: Pablo Diaz II, MD Referring Physician: Braydon Butt MD Date of Procedure: February 17, 2025 Equipment: Olympus GIF 190 standard upper endoscope Sedation: MAC sedation Indications: Mrs. Carey is a 64-year-old female with a history of GERD, globus sensation, weakness of her voice with some hoarseness. Her voice gets whispery after talking for short periods of time. She does get some mild globus. She did eliminate carbonation and her symptoms are better. The patient reports no dysphagia, nausea or belching. She does get some bloating. The patient also has a history of chronic constipation. She also has a neurogenic bladder. She is on Linzess 145 mcg and Senokot nightly. She did have a colonoscopy with me in 2019. Procedure: Prior to the procedure, a history and physical exam was performed, and patient's medications and allergies were reviewed. The risks, benefits and alternatives of the sedation and procedure were discussed with the patient. All questions were answered and informed consent was obtained. The patient was brought to the procedure room. Patient identification and proposed procedure were verified by the physician and the nurse. The patient was placed in a left lateral decubitus position and the scope was passed under direct vision. Throughout the proce dure, the patient's blood pressure, pulse, and oxygen saturations were monitored continuously. The upper GI endoscopy was accomplished without difficulty. The patient tolerated the procedure well. Findings: The scope was passed directly into the upper esophagus and advanced to the fourth portion of duodenum and proximal jejunum. Cold biopsy x 1 was taken from the proximal jejunum for disaccharidase assay. The proximal jejunum, post bulbar duodenum, ampulla and duodenal bulb were normal with normal mucosa and conniventes. The scope was withdrawn through a normal duodenal bulb and pylorus into the stomach. There was some mild linear reactive gastropathy of the antrum. There was mild to moderate atrophy of the body and fundus with loss of rugal folds and increased vascular pattern. A cold biopsy was taken in the fundus of the stomach x 2. There was no hiatal hernia upon retroflexion. The scope was then withdrawn into the esophagus. There was no evidence of reflux esophagitis or Rachel's. There was a normal squamocolumnar junction. There were strong tertiary contractions and evidence of moderate esophageal dysmotility. There were a few punctate whitish plaques and biopsies were taken from the midesophagus to rule out mild candidal esophagitis. The entire esophagus was dilated to 60 Faroese/20 mm with some mild resistance at the cricopharyngeus. The remainder of the esophageal mucosa was normal. Impression: 1. Mild cricopharyngeal spasm 2. Nonerosive GERD with moderate esophageal dysmotility 3. Mild antral linear reactive gastropathy and mild to moderate gastric atrophy Plan: I will follow-up the biopsies and disaccharidase assay. I will discuss the findings with the patient and family. Because of the gastric atrophy, I do not feel that she should be on PPI therapy. I do feel that this is mostly duodenal and functional reflux with globus. I would consider OTC Iberogast twice daily and discussed additional treatment options.
[2025-02-17 12:09] VITALS: BP 115/60; PULSE 91; RESP 20; TEMP 36.3; O2SAT 94
[2025-02-17 12:19] VITALS: BP 103/55; PULSE 82; RESP 20; O2SAT 99
[2025-02-17 12:29] VITALS: BP 107/64; PULSE 82; RESP 20; O2SAT 98
[2025-02-17 12:39] VITALS: BP 115/76; PULSE 82; RESP 20; TEMP 36.3; O2SAT 100
--- NOTE | 2025-02-17 12:59 | EXP.ANES.CKL ---
[facility] Disclaimer: The information contained in this section may have been updated after the patient was seen, as this information can be updated by other users. Medical History Physical debility Neurogenic bladder Generalized anxiety disorder New onset seizure Osteoporosis History of hypertension Hyperlipidemia GERD (gastroesophageal reflux disease) Depression Surgical History H/O kyphoplasty H/O tubal ligation H/O thyroidectomy Hx of appendectomy Family History Other No significant family history Social History Smoking Status: Never smoker second hand exposure: No alcohol intake: never counseling provided: none substance use type: denies use current occupational status: other Travel in the last 8 weeks?: None household members: spouse housing: house lives independently: No marital status: number of children: 2 current occupational exposures/hazards: No caffeine: Yes Have you lived/traveled outside US in past 30 days?: No Contact w/someone who lives/traveled outside US past 30 days?: No Exposure to someone with infectious disease in past 14 days?: No Do you have a fever (greater than 100.4 F or 38 C)?: No Have you tested positive for COVID-19?: No Exposed to someone with COVID-19 in past 14 days?: No Do you have a sore throat?: No Do you have a cough?: No Do you have any weakness?: No Do you have any diarrhea?: No Are you experiencing any unusual bleeding?: No Do you have any muscle aches/pain?: No Do you have any abdominal pain?: No Are you experiencing loss of taste or smell?: No [facility] Anesthesia Checklist Patient Identification Patient Identification: Arm Band Structural Data Admitted From: Long-term Nursing Facility Planned Operative Procedure/s: EGD Consent for Planned Operative Procedure(s) Verified: Yes Verified Documents: Surgical Consent and History and Physical NPO Status Verified Time NPO: 00:00 Additional verifications Anesthesia Reactions: No Hx Blood Transfusions: No Blood Transfusion Reaction: No Airway Assessment Mallampati Score:: Class II C-Spine Mobility Assessed: Yes TMJ Mobility Assessed: Yes Neurological Assessment Level of Consciousness: Awake and Alert Anesthesia Plan Anesthesia Risk discussed: Yes Anesthesia Plan: Verified ASA Class: III Anesthesia Type: MAC
[2025-02-22 14:11] LABS: Disclaimer Notes (.); Interpretation Notes (.); Lactase 91.77 (>/= 14.0); Maltase 348.32 (>/= 110.0); Palatinase 29.69 (>/= 8.5); Reference Notes (.); Sucrase 134.21 (>/= 25.0)
== END 2025-02-17 12:45 | disposition home or self-care (01) ==
PROVIDERS: PCP Internal Medicine Adolescent Medicine; Visit Provider Internal Medicine Gastroenterology
PROC: 0DJ08ZZ Inspection of Upper Intestinal Tract, Via Natural or Artificial Opening Endoscopic (ICD-10-PCS; CPT 43239; principal; 2025-02-17 11:30)
DX: K21.00 Gastro-esophageal reflux disease with esophagitis, without bleeding (principal); K22.4 Dyskinesia of esophagus; K31.89 Other diseases of stomach and duodenum; K29.40 Chronic atrophic gastritis without bleeding; F41.1 Generalized anxiety disorder; I10 Essential (primary) hypertension; E78.5 Hyperlipidemia, unspecified; F32.A Depression, unspecified; E89.0 Postprocedural hypothyroidism; N31.9 Neuromuscular dysfunction of bladder, unspecified; K59.09 Other constipation; Z88.8 Allergy status to other drugs, medicaments and biological substances; Z88.5 Allergy status to narcotic agent; Z88.2 Allergy status to sulfonamides; Z79.899 Other long term (current) drug therapy; Z90.49 Acquired absence of other specified parts of digestive tract; Z79.890 Hormone replacement therapy
CPT/HCPCS: 43239; 43249; 82657; C1726; J2003; J2704; J7120

== ENCOUNTER 2025-02-21 08:55 | Outpatient (CLI) | payer MEDICARE, MEDICAID, SELFPAY ==
--- NOTE | 2025-02-21 08:58 | XR_ITS ---
FINAL REPORT TECHNIQUE: Bone densitometry calculations of the lumbar spine and left hip were obtained. CLINICAL HISTORY: SCREENING COMPARISON: None FINDINGS: Using L1-4, the bone mineral density of the spine is 0.724 g/cm2, corresponding to T-score of -2.9. Using the left hip, the bone mineral density of the femoral neck is 0.251 g/cm2, corresponding to a T-score of -5.7. Using the right hip, the bone mineral density of the femoral neck is 0.265 g/cm?, corresponding to a T-score of -5.3. NOTE: T-score: Standard deviation compared with peak bone mass of young adult mean. *Following the recommendations of the International Society of Bone Densitometry, classification of hip BMD is based on the lower of two T-scores; total hip or femoral neck. IMPRESSION: Osteoporosis: Lowest T-score is at or below -2.5. This patient's T-score meets the World Health Organization criteria for osteoporosis. Reviewed, Interpreted and Dictated by Sidney Oneil MD Transcribed by Marii Segovia Authenticated and . [facility]
--- OUTSIDE RECORDS SUMMARY | 2025-02-21 09:01 | XMS_ITS | Encounter Summary ---
Author Organization [facility] Address [address] [place] [address] Care Team Providers Care Commercial Interior Designer Name Role Phone Luis Henderson MD Primary Care Provider [phone] Pcp, No Primary Care Provider Unavailabl e Luis Henderson MD Unavailable [phone] Kasi Jacobs MD Unavailable [phone] Luis Henderson MD Primary Care Provider [phone] Maria Guadalupe Madrigal APRN Unavailable [phone] Reason for Visit * Reason Onset Date Comments HCN - Patient Message 03/21/2021 Patient re quests US results Encounter Details Date Type Department Care Team (Late st Contact Info) Description 03/21/2021 Telephone [facility] SCHEDULING [address] [place] [address] Maria Guadalupe Madrigal, [employer] [address] [place] [address] HCN - Patient Message (Patient [...] calling back about ultrasound results performed at [facility] Best contact number and optimal time of day to reach caller: [phone] Note: Please do not reply to this [...] optimal time of day to reach caller: [phone] Or [phone] Note: Please do not reply to this [...] Description 03/23/2025 2:45 PM EDT Procedure Visit [facility] [address] [place] [address] Gerardo Gerber MD [address] [place] [address] 04/01/2025 2:20 PM EDT Office Visit [facility] [address] [place] [address] Maria Guadalupe Madrigal APRN [address] [place] [address] documented as of this encounter Visit Diagnoses Not on filedocumented in this encounter Additional Health Concerns Infection Onset Date Last Indicated Resolved Time 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 documented as of this encounter Care Teams Commercial Interior Designer Relationship Specialty Start Date End Date Luis Henderson MD [address] [place] [address] PCP - General 01/19/21 09/03/21 Pcp, [place] [address] [place] [address] PCP - General Family Medicine 09/04/21 01/09/22 Luis Henderson MD [address] [place] [address] PCP - General Internal Medicine 01/10/22 Luis Henderson MD [address] [place] [address] 09/04/21 Kasi Jacobs MD [address] [place] [address] Consulting Physician Neurology 05/17/21 Maria Guadalupe Madrigal APRN [address] [place] [address] Nurse Practitioner Urology 12/03/23 documented as of this encounter
--- OUTSIDE RECORDS SUMMARY | 2025-02-21 09:01 | XMS_ITS | Encounter Summary ---
Author Organization [facility] Address [address] [place] [address] Care Team Providers Care All Source Analyst Name Role Phone Luis Henderson MD Unavailable [phone] Kasi Jacobs MD Unavailable [phone] Luis Henderson MD Primary Care Provider [phone] Maria Guadalupe Madrigal APRN Unavailable [phone] Encounter Details Date Type Department Care Team (Late st Contact Info) Description 06/19/2024 Lab Requisition [facility] [address] [place] [address] Luis Henderson MD [address] [place] [address] Urinary tract infection, site not specified Social [...] drink first t alli in the morning (EYE-SOFTWARE REVERSE ENGINEER) to steady your nerves or to get [...] Description 03/23/2025 2:45 PM EDT Procedure Visit [facility] [address] [place] [address] Gerardo Gerber MD [address] [place] [address] 04/01/2025 2:20 PM EDT Office Visit [facility] [address] [place] [address] Maria Guadalupe Madrigal APRN [address] [place] [address] documented as of this encounter Procedures Procedure [...] LAB HEMATOLOGY METHOD 06/19/2024 7:03 PM EDT [facility] RBC Count 4.49 3.90 - 5.20 10*6/uL LAB HEMATOLOGY METHOD 06/19/2024 7:03 PM EDT [facility] HGB 12.0 11.2 - 15.7 g/dL LAB HEMATOLOGY METHOD 06/19/2024 7:03 PM EDT [facility] HCT 38.2 34.0 - 45.0 % LAB HEMATOLOGY METHOD 06/19/2024 7:03 PM EDT [facility] Platelet Count 164 155 - 369 10*3/uL LAB HEMATOLOGY METHOD 06/19/2024 7:03 PM EDT [facility] MCV 85 79 - 98 fL LAB HEMATOLOGY METHOD 06/19/2024 7:03 PM EDT [facility] MCH 26.7 26.0 - 32.0 pg LAB HEMATOLOGY METHOD 06/19/2024 7:03 PM EDT [facility] MCHC 31.4 30.7 - 35.5 g/dL LAB HEMATOLOGY METHOD 06/19/2024 7:03 PM EDT [facility] RDW 15.7(H) 11.5 - 14.5 % LAB HEMATOLOGY METHOD 06/19/2024 7:03 PM EDT [facility] MPV 11.1 8.8 - 12.5 fL LAB HEMATOLOGY METHOD 06/19/2024 7:03 PM EDT [facility] nRBC 0.0 <=0.0 per 100 WBCs LAB HEMATOLOGY METHOD 06/19/2024 7:03 PM EDT [facility] Differential Type Automated LAB HEMATOLOGY METHOD 06/19/2024 7:03 PM EDT [facility] Neutrophils % 75 % LAB HEMATOLOGY METHOD 06/19/2024 7:03 PM EDT [facility] Lymphocytes % 15 % LAB HEMATOLOGY METHOD 06/19/2024 7:03 PM EDT [facility] Monocytes % 6 % LAB HEMATOLOGY METHOD 06/19/2024 7:03 PM EDT [facility] Eosinophils % 2 % LAB HEMATOLOGY METHOD 06/19/2024 7:03 PM EDT [facility] Basophils % 1 % LAB HEMATOLOGY METHOD 06/19/2024 7:03 PM EDT [facility] Immature Granulocytes % 1 % LAB HEMATOLOGY METHOD 06/19/2024 7:03 PM EDT [facility] Neutrophils Absolute 4.49 1.60 - 6.10 10*3/uL LAB HEMATOLOGY METHOD 06/19/2024 7:03 PM EDT [facility] Lymphocytes Absolute 0.90(L) 1.20 - 3.90 10*3/uL LAB HEMATOLOGY METHOD 06/19/2024 7:03 PM EDT [facility] Monocytes Absolute 0.34 0.30 - 0.90 10*3/uL LAB HEMATOLOGY METHOD 06/19/2024 7:03 PM EDT [facility] Eosinophils Absolute 0.11 0.00 - 0.50 10*3/uL LAB HEMATOLOGY METHOD 06/19/2024 7:03 PM EDT [facility] Basophils Absolute 0.04 0.00 - 0.10 10*3/uL LAB HEMATOLOGY METHOD 06/19/2024 7:03 PM EDT [facility] Immature Granulocytes Absolute 0.04 0.00 - 0.06 10*3/uL LAB HEMATOLOGY METHOD 06/19/2024 7:03 PM EDT [facility] Blood Venous blood specimen / Unknown 06/19/2024 4:59 PM EDT 06/19/2024 6:47 PM EDT Narrative [facility] - 06/19/2024 7:03 PM EDT Therapeutic decision making should be based on absolute values, rather than percentages. us Luis Henderson MD LAB BLOOD ORDERABLES Final R esult [facility] [address] [place] [address] * (ABNORMAL) Comprehensive metabolic panel (06/19/2024 4:59 PM EDT) Glucose, Plasma 102(H) 74 - 99 mg/dL 06/19/2024 7:03 PM EDT [facility] BUN, Plasma 20 8 - 23 mg/dL 06/19/2024 7:03 PM EDT [facility] Creatinine, Plasma 0.34(L) 0.60 - 1.10 mg/dL 06/19/2024 7:03 PM EDT [facility] BUN/Creatinine Ratio 59 06/19/2024 7:03 PM EDT [facility] Sodium, Plasma 139 136 - 145 mmol/L 06/19/2024 7:03 PM EDT [facility] Potassium, Plasma 4.1 3.6 - 4.9 mmol/L 06/19/2024 7:03 PM EDT [facility] Chloride, Plasma 105 97 - 107 mmol/L 06/19/2024 7:03 PM EDT [facility] CO2, Plasma 24 22 - 29 mmol/L 06/19/2024 7:03 PM EDT [facility] Anion Gap 10 6 - 16 mmol/L 06/19/2024 7:03 PM EDT [facility] Total Calcium, Plasma 8.3(L) 8.9 - 10.2 mg/dL 06/19/2024 7:03 PM EDT [facility] Total Protein 6.3 6.3 - 7.9 g/dL 06/19/2024 7:03 PM EDT [facility] Albumin, Plasma 4.0 3.5 - 5.2 g/dL 06/19/2024 7:03 PM EDT [facility] AST, Plasma 16 10 - 35 U/L 06/19/2024 7:03 PM EDT [facility] ALT, Plasma 13 10 - 35 U/L 06/19/2024 7:03 PM EDT [facility] Alkaline Phosphatase, Plasma 93 46 - 142 U/L 06/19/2024 7:03 PM EDT [facility] Total Bilirubin, Plasma <0.2(L) 0.2 - 1.1 mg/dL 06/19/2024 7:03 PM EDT [facility] eGFRcr 113.7 mL/min/1.7 3m*2 06/19/2024 7:03 PM EDT [facility] Comment:Reported eGFRcr in m L/min/1.73m2 is based the CKD-EPI 2020 equation that does not use a race coefficient. Blood Venous blood specimen / Unknown 06/19/2024 4:59 PM EDT 06/19/2024 6:47 PM EDT Luis Henderson MD LAB BLOOD ORDERABLES Final R esult [facility] [address] [place] [address] documented in this encounter Visit Diagnoses Diagnosis [...] documented as of this encounter Care Teams All Source Analyst Relationship Specialty Start Date End Date Luis Henderson MD [address] [place] [address] PCP - General Internal Medicine 01/10/22 Luis Henderson MD [address] [place] [address] 09/04/21 Kasi Jacobs MD [address] [place] [address] Consulting Physician Neurology 05/17/21 Maria Guadalupe Madrigal APRN [address] [place] [address] Nurse Practitioner Urology 12/03/23 documented as of this encounter
--- OUTSIDE RECORDS SUMMARY | 2025-02-21 09:01 | XMS_ITS | Encounter Summary ---
Author Organization [facility] Address [address] [place] [address] Care Team Providers Care Electrical Software Engineer Name Role Phone Luis Henderson MD Unavailable [phone] Kasi Jacobs MD Unavailable [phone] Luis Henderson MD Primary Care Provider [phone] Maria Guadalupe Madrigal APRN Unavailable [phone] Reason for Visit * Reason Comments Med Refill Encounter Details Date Type Department Care Team (Late st Contact Info) Description 01/31/2022 Refill [place] [facility] [address], [address] [place] [address] Dian Tovar R [address] [place] [address] Social History Tobacco Use Types [...] 03/23/2025 2:45 PM EDT Procedure Visit [facility] [address], [address] [place] [address] Gerardo Gerber MD [address] [place] [address] 04/01/2025 2:20 PM EDT Office Visit [facility] Urology [address], [address] [place] [address] Maria Guadalupe Madrigal APRN [address] [place] [address] documented as of this encounter Visit Diagnoses Not on filedocumented in this encounter Additional Health Concerns Infection Onset Date Last Indicated Resolved Time 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 documented as of this encounter Care Teams Electrical Software Engineer Relationship Specialty Start Date End Date Luis Henderson MD [address] [facility] [address] [place] [address] PCP - General Internal Medicine 01/10/22 Luis Henderson MD [address] [place], [place] [address] 09/04/21 Kasi Jacobs MD [address] [place] [address] Consulting Physician Neurology 05/17/21 Maria Guadalupe Madrigal APRN [address] [place] [address] Nurse Practitioner Urology 12/03/23 documented as of this encounter
--- OUTSIDE RECORDS SUMMARY | 2025-02-21 09:01 | XMS_ITS | Clinical Summary ---
Author Organization [facility] Address [address] [place] [address] Care Team Providers Care Intelligence Manager Name Role Phone Luis Henderson MD Unavailable [phone] Kasi Jacobs MD Unavailable [phone] Luis Henderson MD Primary Care Provider [phone] Maria Guadalupe Madrigal APRN Unavailable [phone] Allergies Active Allergy Reactions Criticality Noted Date [...] mouth if needed. 4 Active HYDROcodone-acet aminophen ([place]) 5-325 MG tablet Take by mouth every [...] or more often as needed with 18 kazakh latex catheter Please flush catheter at least [...] Description 12/22/2024 2:30 PM EDT Procedure Visit [facility] [address], 1[address] [place] [address] Gerardo Gerber MD Cervical dystonia (Primary Dx) [...] drink first t alli in the morning (EYE-TOE PULLER) to steady your nerves or to get [...] Description 03/23/2025 2:45 PM EDT Procedure Visit [facility] [address], 1st [place] [address] Gerardo Gerber MD [address] [place] [address] 04/01/2025 2:20 PM EDT Office Visit [facility] Urology [address], [address] [place] [address] Maria Guadalupe Madrigal APRN [address] [place] [address] Health Maintenance Due Date Last Done Comments UKY-Bone Density Scan 1958 UKY-Medicare Annual Wellness (AWV) 1958 UKY-/Child/Adol SDOH Screenings 1958 UKY- SDOH Screenings 1976 UKY-Adult SDOH Screenings 1976 UKY-DTaP,Tdap,and Td Vaccines (1 - Tdap) 11/15/1996 11/14/1996 CT Colonography 2003 Colonoscopy 2003 FIT-DNA 2003 FIT 2003 FOBT 2003 Sigmoidoscopy 2003 UKY-Colorectal Cancer Screening 2003 UKY-Breast Cancer Screening 2008 UKY-Pneumococcal Vaccine: 50+ Years (1 of 1 - PCV) 2008 UKY-Zoster Vaccines (1 of 2) 2008 [id number] Vaccine (2 - season) 2024 12/13/2020 UKY-Influenza [...] ORDERABLES Final Res ult [facility] [address] [place] [address] from Last 3 Months or Most Recently Relevant to Health Maintenance Additional Health Concerns Infection Onset Date Last Indicated 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 Insurance [place] Advance Directives Documents on File Type Date Recorded Patient Bilingual Account Manager Expl georgette Advance Directives and Karina medina [...] No Healthcare Surrogate: Healthcare POA Care Teams Intelligence Manager Relationship Specialty Start Date End Date Luis Henderson MD [address] [place] [address] PCP - General Internal Medicine 01/10/22 Luis Henderson MD [address] [place] [address] 09/04/21 Kasi Jacobs MD [address] [place] [address] Consulting Physician Neurology 05/17/21 Maria Guadalupe Madrigal APRN [address] [place] [address] Nurse Practitioner Urology 12/03/23
== END 2025-02-21 23:59 | disposition home or self-care (01) ==
LOC: RAD 08:57
PROVIDERS: PCP Pediatrics; Visit Provider Nurse Practitioner Family
DX: M81.0 Age-related osteoporosis without current pathological fracture (principal)
CPT/HCPCS: 77080

== ENCOUNTER 2025-03-03 11:16 | Outpatient (POV) | payer MEDICARE, MEDICAID, SELFPAY ==
--- OUTSIDE RECORDS SUMMARY | 2025-03-03 11:21 | XMS_ITS | Encounter Summary ---
Author Organization [facility] Address [address] [place] [address] Care Team Providers Care Residential Direct Support Professional Name Role Phone Luis Henderson MD Primary Care Provider [phone] Pcp, No Primary Care Provider Unavailabl e Luis Henderson MD Unavailable [phone] Kasi Jacobs MD Unavailable [phone] Luis Henderson MD Primary Care Provider [phone] Maria Guadalupe Madrigal APRN Unavailable [phone] Reason for Visit * Reason Onset Date Comments HCN - Patient Message 03/21/2021 Patient re quests US results Encounter Details Date Type Department Care Team (Late st Contact Info) Description 03/21/2021 Telephone PFE SCHEDULING [address] [place] [address] Maria Guadalupe Madrigal, LOCAL TRUCK DRIVER [address] [place] [address] HCN - Patient Message (Patient [...] calling back about ultrasound results performed at [facility] Best contact number and optimal time of day to reach caller: [phone] Note: Please do not reply to this [...] optimal time of day to reach caller: [phone] Or [phone] Note: Please do not reply to this [...] Description 03/23/2025 2:45 PM EDT Procedure Visit [facility] [address], [address] [place] [address] Gerardo Gerber MD [address] [place] [address] 04/01/2025 2:20 PM EDT Office Visit [facility] Urology [address], [address] [place] [address] Maria Guadalupe Madrigal APRN [address] [place] [address] documented as of this encounter Visit Diagnoses Not on filedocumented in this encounter Additional Health Concerns Infection Onset Date Last Indicated Resolved Time 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 documented as of this encounter Care Teams Residential Direct Support Professional Relationship Specialty Start Date End Date Luis Henderson MD [address] [place] [address] PCP - General 01/19/21 09/03/21 Pcp, [facility] [address] [place] [address] PCP - General Family Medicine 09/04/21 01/09/22 Luis Henderson MD [address] [place] [address] PCP - General Internal Medicine 01/10/22 Luis Henderson MD [address] [place] [address] 09/04/21 Kasi Jacobs MD [address] [place] [address] Consulting Physician Neurology 05/17/21 Maria Guadalupe Madrigal APRN [address] [place] [address] Nurse Practitioner Urology 12/03/23 documented as of this encounter
--- OUTSIDE RECORDS SUMMARY | 2025-03-03 11:21 | XMS_ITS | Encounter Summary ---
Author Organization [facility] Address [address] [place] [address] Care Team Providers Care Pole Tester Name Role Phone Luis Henderson MD Unavailable [phone] Kasi Jacobs MD Unavailable [phone] Luis Henderson MD Primary Care Provider [phone] Maria Guadalupe Madrigal APRN Unavailable [phone] Encounter Details Date Type Department Care Team (Late st Contact Info) Description 06/19/2024 Lab Requisition [facility] [address] [place] [address] Luis Henderson MD [address] [place] [address] Urinary tract infection, site not specified Social [...] drink first t alli in the morning (EYE-REMEDIATION PROJECT ENGINEER) to steady your nerves or to [...] Description 03/23/2025 2:45 PM EDT Procedure Visit [facility] [address], 1st [place] [address] Gerardo Gerber MD [address] [place] [address] 04/01/2025 2:20 PM EDT Office Visit [facility] Urology [address], [address] [place] [address] Maria Guadalupe Madrigal APRN [address] [place] [address] documented as of this encounter Procedures Procedure [...] LAB HEMATOLOGY METHOD 06/19/2024 7:03 PM EDT [facility] RBC Count 4.49 3.90 - 5.20 10*6/uL LAB HEMATOLOGY METHOD 06/19/2024 7:03 PM EDT [facility] HGB 12.0 11.2 - 15.7 g/dL LAB HEMATOLOGY METHOD 06/19/2024 7:03 PM EDT [facility] HCT 38.2 34.0 - 45.0 % LAB HEMATOLOGY METHOD 06/19/2024 7:03 PM EDT [facility] Platelet Count 164 155 - 369 10*3/uL LAB HEMATOLOGY METHOD 06/19/2024 7:03 PM EDT [facility] MCV 85 79 - 98 fL LAB HEMATOLOGY METHOD 06/19/2024 7:03 PM EDT [facility] MCH 26.7 26.0 - 32.0 pg LAB HEMATOLOGY METHOD 06/19/2024 7:03 PM EDT [facility] MCHC 31.4 30.7 - 35.5 g/dL LAB HEMATOLOGY METHOD 06/19/2024 7:03 PM EDT [facility] RDW 15.7(H) 11.5 - 14.5 % LAB HEMATOLOGY METHOD 06/19/2024 7:03 PM EDT [facility] MPV 11.1 8.8 - 12.5 fL LAB HEMATOLOGY METHOD 06/19/2024 7:03 PM EDT [facility] nRBC 0.0 <=0.0 per 100 WBCs LAB HEMATOLOGY METHOD 06/19/2024 7:03 PM EDT [facility] Differential Type Automated LAB HEMATOLOGY METHOD 06/19/2024 7:03 PM EDT [facility] Neutrophils % 75 % LAB HEMATOLOGY METHOD 06/19/2024 7:03 PM EDT [facility] Lymphocytes % 15 % LAB HEMATOLOGY METHOD 06/19/2024 7:03 PM EDT [facility] Monocytes % 6 % LAB HEMATOLOGY METHOD 06/19/2024 7:03 PM EDT [facility] Eosinophils % 2 % LAB HEMATOLOGY METHOD 06/19/2024 7:03 PM EDT [facility] Basophils % 1 % LAB HEMATOLOGY METHOD 06/19/2024 7:03 PM EDT [facility] Immature Granulocytes % 1 % LAB HEMATOLOGY METHOD 06/19/2024 7:03 PM EDT [facility] Neutrophils Absolute 4.49 1.60 - 6.10 10*3/uL LAB HEMATOLOGY METHOD 06/19/2024 7:03 PM EDT [facility] Lymphocytes Absolute 0.90(L) 1.20 - 3.90 10*3/uL LAB HEMATOLOGY METHOD 06/19/2024 7:03 PM EDT [facility] Monocytes Absolute 0.34 0.30 - 0.90 10*3/uL LAB HEMATOLOGY METHOD 06/19/2024 7:03 PM EDT [facility] Eosinophils Absolute 0.11 0.00 - 0.50 10*3/uL LAB HEMATOLOGY METHOD 06/19/2024 7:03 PM EDT [facility] Basophils Absolute 0.04 0.00 - 0.10 10*3/uL LAB HEMATOLOGY METHOD 06/19/2024 7:03 PM EDT [facility] Immature Granulocytes Absolute 0.04 0.00 - 0.06 10*3/uL LAB HEMATOLOGY METHOD 06/19/2024 7:03 PM EDT [facility] Blood Venous blood specimen / Unknown 06/19/2024 4:59 PM EDT 06/19/2024 6:47 PM EDT Narrative [facility] - 06/19/2024 7:03 PM EDT Therapeutic decision making should be based on absolute values, rather than percentages. us Luis Henderson MD LAB BLOOD ORDERABLES Final R esult [facility] [address] [place] [address] * (ABNORMAL) Comprehensive metabolic panel (06/19/2024 4:59 PM EDT) Glucose, Plasma 102(H) 74 - 99 mg/dL 06/19/2024 7:03 PM EDT [facility] BUN, Plasma 20 8 - 23 mg/dL 06/19/2024 7:03 PM EDT [facility] Creatinine, Plasma 0.34(L) 0.60 - 1.10 mg/dL 06/19/2024 7:03 PM EDT [facility] BUN/Creatinine Ratio 59 06/19/2024 7:03 PM EDT [facility] Sodium, Plasma 139 136 - 145 mmol/L 06/19/2024 7:03 PM EDT [facility] Potassium, Plasma 4.1 3.6 - 4.9 mmol/L 06/19/2024 7:03 PM EDT [facility] Chloride, Plasma 105 97 - 107 mmol/L 06/19/2024 7:03 PM EDT [facility] CO2, Plasma 24 22 - 29 mmol/L 06/19/2024 7:03 PM EDT [facility] Anion Gap 10 6 - 16 mmol/L 06/19/2024 7:03 PM EDT [facility] Total Calcium, Plasma 8.3(L) 8.9 - 10.2 mg/dL 06/19/2024 7:03 PM EDT [facility] Total Protein 6.3 6.3 - 7.9 g/dL 06/19/2024 7:03 PM EDT [facility] Albumin, Plasma 4.0 3.5 - 5.2 g/dL 06/19/2024 7:03 PM EDT [facility] AST, Plasma 16 10 - 35 U/L 06/19/2024 7:03 PM EDT [facility] ALT, Plasma 13 10 - 35 U/L 06/19/2024 7:03 PM EDT [facility] Alkaline Phosphatase, Plasma 93 46 - 142 U/L 06/19/2024 7:03 PM EDT [facility] Total Bilirubin, Plasma <0.2(L) 0.2 - 1.1 mg/dL 06/19/2024 7:03 PM EDT [facility] eGFRcr 113.7 mL/min/1.7 3m*2 06/19/2024 7:03 PM EDT [facility] Comment:Reported eGFRcr in m L/min/1.73m2 is based the CKD-EPI 2020 equation that does not use a race coefficient. Blood Venous blood specimen / Unknown 06/19/2024 4:59 PM EDT 06/19/2024 6:47 PM EDT Luis Henderson MD LAB BLOOD ORDERABLES Final R esult [facility] [address] [place] [address] documented in this encounter Visit Diagnoses Diagnosis [...] documented as of this encounter Care Teams Pole Tester Relationship Specialty Start Date End Date Luis Henderson MD [address] [place] [address] PCP - General Internal Medicine 01/10/22 Luis Henderson MD [address] [place] [address] 09/04/21 Kasi Jacobs MD [address] [place] [address] Consulting Physician Neurology 05/17/21 Maria Guadalupe Madrigal APRN [address] [place] [address] Nurse Practitioner Urology 12/03/23 documented as of this encounter
--- OUTSIDE RECORDS SUMMARY | 2025-03-03 11:21 | XMS_ITS | Encounter Summary ---
Author Organization [facility] Address [address] [place] [address] Care Team Providers Care Mast Maker Name Role Phone Luis Henderson MD Unavailable [phone] Kasi Jacobs MD Unavailable [phone] Luis Henderson MD Primary Care Provider [phone] Maria Guadalupe Madrigal APRN Unavailable [phone] Reason for Visit * Reason Comments Med Refill Encounter Details Date Type Department Care Team (Late st Contact Info) Description 01/31/2022 Refill [place] [facility] [address], [address] [place] [address] Dian Tovar R [address] [place] [address] Social History Tobacco Use Types [...] Description 03/23/2025 2:45 PM EDT Procedure Visit [facility] [address], [address] [place] [address] Gerardo Gerber MD [address] [place] [address] 04/01/2025 2:20 PM EDT Office Visit [facility] Urology [address], [address] [place] [address] Maria Guadalupe Madrigal APRN [address] [place] [address] documented as of this encounter Visit Diagnoses Not on filedocumented in this encounter Additional Health Concerns Infection Onset Date Last Indicated Resolved Time 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 documented as of this encounter Care Teams Mast Maker Relationship Specialty Start Date End Date Luis Henderson MD [address] [facility] [address] [place] [address] PCP - General Internal Medicine 01/10/22 Luis Henderson MD [address] [place], [place] [address] 09/04/21 Kasi Jacobs MD [address] [place] [address] Consulting Physician Neurology 05/17/21 Maria Guadalupe Madrigal APRN [address] [place] [address] Nurse Practitioner Urology 12/03/23 documented as of this encounter
--- OUTSIDE RECORDS SUMMARY | 2025-03-03 11:21 | XMS_ITS | Clinical Summary ---
Author Organization [facility] Address [address] [place] [address] Care Team Providers Care Wheel Setter Name Role Phone Luis Henderson MD Unavailable [phone] Kasi Jacobs MD Unavailable [phone] Luis Henderson MD Primary Care Provider [phone] Maria Guadalupe Madrigal APRN Unavailable [phone] Allergies Active Allergy Reactions Criticality Noted Date [...] mouth if needed. 4 Active HYDROcodone-acet aminophen ([place]) 5-325 MG tablet Take by mouth every [...] or more often as needed with 18 pakistani latex catheter Please flush catheter at least [...] Description 12/22/2024 2:30 PM EDT Procedure Visit [place] [facility] [address] [place] [address] Gerardo Gerber MD Cervical dystonia (Primary Dx) [...] drink first t alli in the morning (EYE-JUNIOR LINUX ADMINISTRATOR) to steady your nerves or to get [...] Description 03/23/2025 2:45 PM EDT Procedure Visit [facility] [address], [address]st [place] [address] Gerardo Gerber MD [address] [place] [address] 04/01/2025 2:20 PM EDT Office Visit [facility] Urology [address], [address] [place] [address] Maria Guadalupe Madrigal APRN [address] [place] [address] Health Maintenance Due Date Last [...] 2008 UKY-Zoster Vaccines (1 of 2) 2008 [id number] Vaccine (2 - season) 2024 12/13/2020 UKY-Influenza [...] ORDERABLES Final Res ult [facility] [address] [place] [address] from Last 3 Months or Most Recently Relevant to Health Maintenance Additional Health Concerns Infection Onset Date Last Indicated 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 Insurance [place] Advance Directives Documents on File Type Date Recorded Patient Legal Research Analyst Expl georgette Advance Directives and Karina medina [...] No Healthcare Surrogate: Healthcare POA Care Teams Wheel Setter Relationship Specialty Start Date End Date Luis Henderson MD [address] [place] [address] PCP - General Internal Medicine 01/10/22 Luis Henderson MD [address] [place] [address] 09/04/21 Kasi Jacobs MD [address] [place] [address] Consulting Physician Neurology 05/17/21 Maria Guadalupe Madrigal APRN [address] [place] [address] Nurse Practitioner Urology 12/03/23
--- NOTE | 2025-03-03 11:38 | EXP.PAIN.SOA ---
[facility] Disclaimer: The information contained in this section may have been updated after the patient was seen, as this information can be updated by other users. Medical History Physical debility Neurogenic bladder Generalized anxiety disorder New onset seizure Osteoporosis History of hypertension Hyperlipidemia GERD (gastroesophageal reflux disease) Depression Surgical History H/O kyphoplasty H/O tubal ligation H/O thyroidectomy Hx of appendectomy Family History Other No significant family history Social History Smoking Status: Never smoker second hand exposure: No alcohol intake: never counseling provided: none substance use type: denies use current occupational status: other Travel in the last 8 weeks?: None household members: spouse housing: house lives independently: No marital status: number of children: 2 current occupational exposures/hazards: No caffeine: Yes PM Subjective & Objective Subjective Subjective:: Patient is a pleasant 64-year-old female who presents today for follow-up of bilateral bursa injections on 02/15/2025. Today she rates her pain a 5 out of 10. She denies any new falls or injuries. Patient does state that she had about 80% improvement however felt like it is already started to wear off. She does state that the pain is not as severe however a lot of it has to do with her prolonged positioning in her bed and it is very limited. Patient does state that her was going to try and purchase an eggcrate to put on the bed to help add support however it was not approved by the [facility]. Patient does states she is still there at [facility]. Patient denies any new issues with her suprapubic catheter. She does state that she has been put on a new medication for her osteoarthritis. Her Claus has been reviewed and is appropriate. Review of Systems: General: No recent weight changes, no fever, no sleep disturbances Respiratory: No cough, no shortness of air, no recurring pulmonary infections Cardiovascular/peripheral vascular: No chest pain, no palpitations, no edema, no shortness of breath Gastrointestinal: No new onset incontinence, normal bowel movements reported Genitourinary: No new onset incontinence Musculoskeletal: Chronic back pain, hip pain Psychiatric: [Normal mood/affect] Neurological: [Denies weakness in extremities], [denies balance issues] Pain at rest (0-10 scale): 5 Objective Objective:: Physical Exam: General: Alert and oriented x3, no acute distress, pleasant and cooperative Lungs: Respirations even and unlabored, symmetrical chest expansion Eyes: PERRL Musculoskeletal: Flexion and extension of lumbar [spine] somewhat guarded secondary to pain, [antalgic gait noted] Neurological: Speech clear, no gross sensory deficit Has patient had previous pain injection?: Yes Percent improvement in pain since last injection: 80% Conservative treatment options previously tried: Home exercise plan Length of treatment: Longer than 12 weeks Meds Home Medications and Allergies Home Medications ?Medication ?Instructions ?Recorded ?Confirmed ?Type cyanocobalamin (vitamin B-12) 1,000 mcg IM MONTHLY 11/04/18 02/17/25 History 1,000 mcg/mL injection solution cholecalciferol (vitamin D3) 50 25 mcg PO DAILY 10/11/19 02/17/25 History mcg (2,000 unit) tablet levothyroxine 200 mcg tablet 200 mcg PO DAILY 02/14/23 02/17/25 History omeprazole 40 mg capsule,delayed 40 mg PO DAILY 02/14/23 02/17/25 History release linaclotide 145 mcg capsule 145 mcg PO DAILY #30 caps 09/21/24 02/17/25 Rx (Linzess) acetaminophen 500 mg tablet 1,000 mg PO Q6HP PRN Mild Pain 09/27/24 02/17/25 History (Scale Score 1-4) dantrolene 50 mg capsule 50 mg PO TID 09/27/24 02/17/25 History diclofenac sodium 1 % topical gel 1 ea topical Q6HP PRN JOINT PAIN 09/27/24 02/17/25 History diphenhydramine HCl 25 mg tablet 25 mg PO TIDP PRN Itching 09/27/24 02/17/25 History gabapentin 400 mg capsule 400 mg PO TID 09/27/24 02/17/25 History hydrocodone 5 mg-acetaminophen 325 1 tab PO Q6HP PRN Moderate Pain 09/27/24 02/17/25 History mg tablet (Scale Score 5-6) lactulose 10 gram/15 mL oral 20 g PO DAILYP PRN Constipation 09/27/24 02/17/25 History solution levetiracetam 500 mg tablet 500 mg PO BID 09/27/24 02/17/25 History melatonin 3 mg tablet 6 mg PO HS 09/27/24 02/17/25 History midodrine 5 mg tablet 5 mg PO BID 09/27/24 02/17/25 History multivit with minerals-iron 18 1 tab PO DAILY 09/27/24 02/17/25 History mg-folic ac 400 mcg-vit K 25 mcg tablet (Adults Multivitamin) polyethylene glycol 3350 17 17 g PO DAILY 09/27/24 02/17/25 History gram/dose oral powder prednisone 20 mg tablet 40 mg (2 x 20 mg) PO DAILY 5 days 09/27/24 02/17/25 Rx #10 tabs sennosides 8.6 mg-docusate sodium 1 tab PO HS 09/27/24 02/17/25 History 50 mg tablet (Stimulant Laxative Plus) sertraline 100 mg tablet 150 mg PO DAILY 09/27/24 02/17/25 History tizanidine 2 mg capsule 2 mg PO BID 09/27/24 02/17/25 History trazodone 50 mg tablet 50 mg PO HS 30 days #30 tabs 09/27/24 02/17/25 Rx meropenem 1 gram/50 mL in 0.9% 1 g IV Q8H 7 days 10/07/24 02/17/25 Rx sodium chloride intravenous piggyback New Prescriptions to Start Prescriptions: Allergies Allergy/AdvReac Type Severity Reaction Status Date / Time metoclopramide (From REGLAN) Allergy Mild I-RASH Verified 02/16/25 11:24 Sulfa (Sulfonamide Allergy Mild I-RASH Verified 02/16/25 11:24 Antibiotics) (SULFA (SULFONAMIDE ANTIBIOTICS)) morphine Allergy Vomiting Verified 02/16/25 11:24 Assessment and Plan *Assessment and plan (1) Trochanteric bursitis of both hips: Status: Acute Category: Medical Code(s): M70.61 - Trochanteric bursitis, right hip; M70.62 - Trochanteric bursitis, left hip (2) Buttock pain: Status: Acute Category: Medical Code(s): M79.18 - Myalgia, other site (3) Coccygeal pain: Status: Acute Category: Medical Code(s): M53.3 - Sacrococcygeal disorders, not elsewhere classified (4) Degenerative disc disease, lumbar: Status: Acute Category: Medical Code(s): M51.369 - Other intervertebral disc degeneration, lumbar region without mention of lumbar back pain or lower extremity pain Plan I did discuss with the patient due to her limited mobility and the chronic pain she does have in her low back and hips I do think it would be very beneficial for her to have a medical grade air mattress applied to her bed. We will send in a paper order to the [facility] facility and also fax a copy of our order with this note requesting this adjustment to be made. Patient has had chronic pain for years that has progressively worsened and does have other comorbidities that affect her movement. She was counseled that if she needs any additional documentation for this device to please reach out to our office. Patient will return to clinic in 3 months for reevaluation of symptoms and plan of care. Patient has been instructed to contact the clinic with any concerns before the next appointment. Dr. Robledo has reviewed this note and agrees with this plan of care. This note was dictated using voice recognition software and make contain errors or omissions. All injections are used with Lidocaine, Bupivacaine and dexamethasone. Occasionally urine drug screen is needed to verify patient's compliance with our office pain contract. This is ordered based off specific treatments related to chronic pain with the potential to abuse certain medications.
[2025-03-03 12:47] VITALS: BP 101/69; PULSE 96; RESP 18; O2SAT 93; BMI 22.1
== END 2025-03-03 23:59 | disposition home or self-care (01) ==
LOC: SC.PAIN 11:18
PROVIDERS: Visit Provider Nurse Practitioner Family
DX: M70.61 Trochanteric bursitis, right hip (principal); M70.62 Trochanteric bursitis, left hip; M51.361 Other intervertebral disc degeneration, lumbar region with lower extremity pain only; M53.3 Sacrococcygeal disorders, not elsewhere classified
CPT/HCPCS: 99212; G0463

== ENCOUNTER 2025-03-27 13:35 | Emergency (ER) | payer MEDICARE, MEDICAID, SELFPAY ==
[2025-03-27] VITALS (19 sets, daily range): BP systolic 111–158; BP diastolic 72–113; PULSE 63–93; RESP 15–18; TEMP 36.8; O2SAT 94–100; BMI 32.5
--- OUTSIDE RECORDS SUMMARY | 2025-03-27 13:57 | XMS_ITS | Encounter Summary ---
Author Organization [facility] Address [address] [place] [address] Care Team Providers Care Blueprinter Name Role Phone Luis Henderson MD Primary Care Provider [phone] Pcp, No Primary Care Provider Unavailabl e Luis Henderson MD Unavailable [phone] Kasi Jacobs MD Unavailable [phone] Luis Henderson MD Primary Care Provider [phone] Maria Guadalupe Madrigal APRN Unavailable [phone] Reason for Visit * Reason Onset Date Comments HCN - Patient Message 03/21/2021 Patient re quests US results Encounter Details Date Type Department Care Team (Late st Contact Info) Description 03/21/2021 Telephone PFE SCHEDULING [address] [place] [address] Maria Guadalupe Madrigal, ASSEMBLY LINE INSPECTOR [address] [place] [address] HCN - Patient Message (Patient [...] calling back about ultrasound results performed at [facility] Best contact number and optimal time of day to reach caller: [phone] Note: Please do not reply to this [...] optimal time of day to reach caller: [phone] Or [phone] Note: Please do not reply to this [...] Care Team (Late st Contact Info) Description 04/01/2025 2:20 PM EDT Office Visit [facility] [address] [place] [address] Maria Guadalupe Madrigal, JEREMI [address] [place] [address] documented as of this encounter Visit Diagnoses Not on filedocumented in this encounter Additional Health Concerns Infection Onset Date Last Indicated Resolved Time 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 documented as of this encounter Care Teams Blueprinter Relationship Specialty Start Date End Date Luis Henderson MD [address] [place], [place] [address] PCP - General 01/19/21 09/03/21 Pcp, No [address] [place] [address] PCP - General Family Medicine 09/04/21 01/09/22 Luis Henderson MD [address] [place] [address] PCP - General Internal Medicine 01/10/22 Luis Henderson MD [address] [place] [address] 09/04/21 Kasi Jacobs MD [address] [place] [id number] Consulting Physician Neurology 05/17/21 Maria Guadalupe Madrigal APRN [address] [place] [address] Nurse Practitioner Urology 12/03/23 documented as of this encounter
--- OUTSIDE RECORDS SUMMARY | 2025-03-27 13:57 | XMS_ITS | Clinical Summary ---
Author Organization [facility] Address [address] [place] [address] Care Team Providers Care Boning Room Worker Name Role Phone Luis Henderson MD Unavailable [phone] Kasi Jacobs MD Unavailable [phone] Luis Henderson MD Primary Care Provider [phone] Maria Guadalupe Madrigal APRN Unavailable [phone] Allergies Active Allergy Reactions Criticality Noted Date [...] mouth if needed. 4 Active HYDROcodone-acet aminophen (Saluda) 5-325 MG tablet Take by mouth every [...] or more often as needed with 18 congolese latex catheter Please flush catheter at least [...] 03/16/2023 Recurrent UTI 03/19/2022 03/22/2023 Overview (03/16/2023): Rocephin 03/15 Immunizations Immunization Administration Dates Next Due Influenza, [...] drink first t alli in the morning (EYE-REUSE TECHNICIAN) to steady your nerves or to get [...] Description 04/01/2025 2:20 PM EDT Office Visit [place] [facility] [address] [place] [address] Maria Guadalupe Madrigal, MANUFACTURING LEADER [address] [place] [address] Health Maintenance Due Date Last Done Comments [facility]-Bone Density Scan 1960 [facility]-Medicare Annual Wellness (AWV) 1960 [facility]-/Child/Adol SDOH Screenings 1958 [facility]- SDOH Screenings 1976 [facility]-Adult SDOH Screenings 1976 [facility]-DTaP,Tdap,and Td Vaccines (1 - Tdap) 11/15/1996 11/14/1996 CT Colonography 2003 Colonoscopy 2003 FIT-DNA 2003 FIT 2003 FOBT 2003 Sigmoidoscopy 2003 [facility]-Colorectal Cancer Screening 2003 [facility]-Breast Cancer Screening 2008 [facility]-Pneumococcal Vaccine: 50+ Years (1 of 1 - PCV) 2008 [facility]-Zoster Vaccines (1 of 2) 2008 [facility]-RSV Vaccine: 60+ Years or (1 - Risk 60-74 years 1-dose series) 2018 [id number] Vaccine (2 - Ivonne risk series) 01/10/2021 12/13/2020 [facility]-Influenza Vaccine (#1) 05/09/202507/03, 07/24/2020, 07/06/2019, Additional history exists [facility]-Depression Screening 06/04/2025 06/04/2024, 03/08 [facility]-Hepatitis C Screening Completed 2023, 03/15/2023, 09/04/2021 [...] Antibody Negative Negative 05/06/2024 2:56 AM EDT [facility] Blood Venous blood specimen / Unknown Venipuncture / Unknown 05/06/2024 1:09 AM EDT 05/06/2024 2:06 AM EDT us Sallie Cervantes DO LAB BLOOD ORDERABLES Final Res ult [facility] [address] [place] [address] from Last 3 Months or Most Recently Relevant to Health Maintenance Additional Health Concerns Infection Onset Date Last Indicated 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 Insurance MEDICAID-OR MEDICARE Advance Directives Documents on File Type Date Recorded Patient Plaster Pattern Caster Expl anation Advance Directives and Livin g Will 03/28/2023 11:45 AM * Full Code [...] No Healthcare Surrogate: Healthcare POA Care Teams Boning Room Worker Relationship Specialty Start Date End Date Luis Henderson MD [address] [place] [address] PCP - General Internal Medicine 01/10/22 Luis Henderson MD [address] [place], [place] [address] 09/04/21 Kasi Jacobs MD [address] [place] [address] Consulting Physician Neurology 05/17/21 Maria Guadalupe Madrigal APRN [address] [place] [address] Nurse Practitioner Urology 12/03/23
--- OUTSIDE RECORDS SUMMARY | 2025-03-27 13:57 | XMS_ITS | Encounter Summary ---
Author Organization [facility] Address [address] [place] [address] Care Team Providers Care Video Control Engineer Name Role Phone Luis Henderson MD Unavailable [phone] Kasi Jacobs MD Unavailable [phone] Luis Henderson MD Primary Care Provider [phone] Maria Guadalupe Madrigal APRN Unavailable [phone] Encounter Details Date Type Department Care Team (Late st Contact Info) Description 06/19/2024 Lab Requisition [facility] [address] [place] [address] Luis Henderson MD [address] [place] [address] Urinary tract infection, site not specified Social [...] drink first t alli in the morning (EYE-CASH APPLICATIONS SPECIALIST) to steady your nerves or to get [...] Description 04/01/2025 2:20 PM EDT Office Visit [place] [facility] [address] [place] [address] Maria Guadalupe Madrigal, PRINCIPAL ASSOCIATE [address] [place] [address] documented as of this encounter Procedures Procedure [...] LAB HEMATOLOGY METHOD 06/19/2024 7:03 PM EDT [facility] RBC Count 4.49 3.90 - 5.20 10*6/uL LAB HEMATOLOGY METHOD 06/19/2024 7:03 PM EDT [facility] HGB 12.0 11.2 - 15.7 g/dL LAB HEMATOLOGY METHOD 06/19/2024 7:03 PM EDT [facility] HCT 38.2 34.0 - 45.0 % LAB HEMATOLOGY METHOD 06/19/2024 7:03 PM EDT [facility] Platelet Count 164 155 - 369 10*3/uL LAB HEMATOLOGY METHOD 06/19/2024 7:03 PM EDT [facility] MCV 85 79 - 98 fL LAB HEMATOLOGY METHOD 06/19/2024 7:03 PM EDT [facility] MCH 26.7 26.0 - 32.0 pg LAB HEMATOLOGY METHOD 06/19/2024 7:03 PM EDT [facility] MCHC 31.4 30.7 - 35.5 g/dL LAB HEMATOLOGY METHOD 06/19/2024 7:03 PM EDT [facility] RDW 15.7(H) 11.5 - 14.5 % LAB HEMATOLOGY METHOD 06/19/2024 7:03 PM EDT [facility] MPV 11.1 8.8 - 12.5 fL LAB HEMATOLOGY METHOD 06/19/2024 7:03 PM EDT [facility] nRBC 0.0 <=0.0 per 100 WBCs LAB HEMATOLOGY METHOD 06/19/2024 7:03 PM EDT [facility] Differential Type Automated LAB HEMATOLOGY METHOD 06/19/2024 7:03 PM EDT [facility] Neutrophils % 75 % LAB HEMATOLOGY METHOD 06/19/2024 7:03 PM EDT [facility] Lymphocytes % 15 % LAB HEMATOLOGY METHOD 06/19/2024 7:03 PM EDT [facility] Monocytes % 6 % LAB HEMATOLOGY METHOD 06/19/2024 7:03 PM EDT [facility] Eosinophils % 2 % LAB HEMATOLOGY METHOD 06/19/2024 7:03 PM EDT [facility] Basophils % 1 % LAB HEMATOLOGY METHOD 06/19/2024 7:03 PM EDT [facility] Immature Granulocytes % 1 % LAB HEMATOLOGY METHOD 06/19/2024 7:03 PM EDT [facility] Neutrophils Absolute 4.49 1.60 - 6.10 10*3/uL LAB HEMATOLOGY METHOD 06/19/2024 7:03 PM EDT [facility] Lymphocytes Absolute 0.90(L) 1.20 - 3.90 10*3/uL LAB HEMATOLOGY METHOD 06/19/2024 7:03 PM EDT [facility] Monocytes Absolute 0.34 0.30 - 0.90 10*3/uL LAB HEMATOLOGY METHOD 06/19/2024 7:03 PM EDT [facility] Eosinophils Absolute 0.11 0.00 - 0.50 10*3/uL LAB HEMATOLOGY METHOD 06/19/2024 7:03 PM EDT [facility] Basophils Absolute 0.04 0.00 - 0.10 10*3/uL LAB HEMATOLOGY METHOD 06/19/2024 7:03 PM EDT [facility] Immature Granulocytes Absolute 0.04 0.00 - 0.06 10*3/uL LAB HEMATOLOGY METHOD 06/19/2024 7:03 PM EDT [facility] Blood Venous blood specimen / Unknown 06/19/2024 4:59 PM EDT 06/19/2024 6:47 PM EDT Narrative [facility] - 06/19/2024 7:03 PM EDT Therapeutic decision making should be based on absolute values, rather than percentages. us Luis Henderson MD LAB BLOOD ORDERABLES Final R esult [facility] [address] [place] [address] * (ABNORMAL) Comprehensive metabolic panel (06/19/2024 4:59 PM EDT) Glucose, Plasma 102(H) 74 - 99 mg/dL 06/19/2024 7:03 PM EDT [facility] BUN, Plasma 20 8 - 23 mg/dL 06/19/2024 7:03 PM EDT [facility] Creatinine, Plasma 0.34(L) 0.60 - 1.10 mg/dL 06/19/2024 7:03 PM EDT [facility] BUN/Creatinine Ratio 59 06/19/2024 7:03 PM EDT [facility] Sodium, Plasma 139 136 - 145 mmol/L 06/19/2024 7:03 PM EDT [facility] Potassium, Plasma 4.1 3.6 - 4.9 mmol/L 06/19/2024 7:03 PM EDT [facility] Chloride, Plasma 105 97 - 107 mmol/L 06/19/2024 7:03 PM EDT [facility] CO2, Plasma 24 22 - 29 mmol/L 06/19/2024 7:03 PM EDT [facility] Anion Gap 10 6 - 16 mmol/L 06/19/2024 7:03 PM EDT [facility] Total Calcium, Plasma 8.3(L) 8.9 - 10.2 mg/dL 06/19/2024 7:03 PM EDT [facility] Total Protein 6.3 6.3 - 7.9 g/dL 06/19/2024 7:03 PM EDT [facility] Albumin, Plasma 4.0 3.5 - 5.2 g/dL 06/19/2024 7:03 PM EDT [facility] AST, Plasma 16 10 - 35 U/L 06/19/2024 7:03 PM EDT [facility] ALT, Plasma 13 10 - 35 U/L 06/19/2024 7:03 PM EDT [facility] Alkaline Phosphatase, Plasma 93 46 - 142 U/L 06/19/2024 7:03 PM EDT [facility] Total Bilirubin, Plasma <0.2(L) 0.2 - 1.1 mg/dL 06/19/2024 7:03 PM EDT [facility] eGFRcr 113.7 mL/min/1.7 3m*2 06/19/2024 7:03 PM EDT [facility] Comment:Reported eGFRcr in m L/min/1.73m2 is based the CKD-EPI 2020 equation that does not use a race coefficient. Blood Venous blood specimen / Unknown 06/19/2024 4:59 PM EDT 06/19/2024 6:47 PM EDT us Luis Henderson MD LAB BLOOD ORDERABLES Final R esult [facility] [address] [place] [address] documented in this encounter Visit Diagnoses Diagnosis [...] documented as of this encounter Care Teams Video Control Engineer Relationship Specialty Start Date End Date Luis Henderson MD [address] [place] [address] PCP - General Internal Medicine 01/10/22 Luis Henderson MD [address] [place] [address] 09/04/21 Kasi Jacobs MD [address] [place] [address] Consulting Physician Neurology 05/17/21 Maria Guadalupe Madrigal APRN [address] [place] [address] Nurse Practitioner Urology 12/03/23 documented as of this encounter
--- OUTSIDE RECORDS SUMMARY | 2025-03-27 13:57 | XMS_ITS | Encounter Summary ---
Author Organization [facility] Address [address] [place] [address] Care Team Providers Care General Farm Hand Name Role Phone Luis Henderson MD Unavailable [phone] Kasi Jacobs MD Unavailable [phone] Luis Henderson MD Primary Care Provider [phone] Maria Guadalupe Madrigal APRN Unavailable [phone] Reason for Visit * Reason Comments Med Refill Encounter Details Date Type Department Care Team (Late st Contact Info) Description 01/31/2022 Refill [place] [facility] [address] [place] [address] Dian Tovar R [address] [place] [address] Social History Tobacco Use Types [...] Description 04/01/2025 2:20 PM EDT Office Visit [facility] [address] [place] [address] Maria Guadalupe Madrigal, JEREMI [address] [place] [address] documented as of this encounter Visit Diagnoses Not on filedocumented in this encounter Additional Health Concerns Infection Onset Date Last Indicated Resolved Time 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 documented as of this encounter Care Teams General Farm Hand Relationship Specialty Start Date End Date Luis Henderson MD [address] [facility] [address] [address] [place] [address] PCP - General Internal Medicine 01/10/22 Luis Henderson MD [address] [place] [address] 09/04/21 Kasi Jacobs MD [address] [place] [address] Consulting Physician Neurology 05/17/21 Maria Guadalupe Madrigal APRN [address] [phone] Nurse Practitioner Urology 12/03/23 documented as of this encounter
--- NOTE | 2025-03-27 13:59 | [facility].EDGENADL ---
Discharge Plan Disposition Patient Disposition: Xfer Short-Term Hosp Prescriptions Prescriptions: No Action cyanocobalamin (vitamin B-12) 1,000 mcg/mL solution 1,000 mcg IM MONTHLY cholecalciferol (vitamin D3) 50 mcg (2,000 unit) tablet 25 mcg PO DAILY omeprazole 40 mg capsule,delayed release(DR/EC) 40 mg PO DAILY Patient Comments: TAKE 1 CAPSULE BY MOUTH ONCE DAILY levothyroxine 200 mcg tablet 200 mcg PO DAILY Patient Comments: TAKE 1 TABLET BY MOUTH ONCE DAILY Linzess 145 mcg capsule 145 mcg PO DAILY Qty: 30 0RF levetiracetam 500 mg tablet 500 mg PO BID sennosides-docusate sodium [Stimulant Laxative Plus] 8.6-50 mg tablet 1 tab PO HS dantrolene 50 mg Capsule 50 mg PO TID gabapentin 400 mg capsule 400 mg PO TID midodrine 5 mg tablet 5 mg PO BID melatonin 3 mg tablet 6 mg PO HS acetaminophen 500 mg Tablet 1,000 mg PO Q6HP PRN (Reason: Mild Pain (Scale Score 1-4)) diphenhydramine HCl 25 mg Tablet 25 mg PO TIDP PRN (Reason: Itching) polyethylene glycol 3350 17 gram/dose powder 17 g PO DAILY lactulose 10 gram/15 mL Solution 20 g PO DAILYP PRN (Reason: Constipation) tizanidine 2 mg capsule 2 mg PO BID diclofenac sodium 1 % Gel 1 ea TOPICAL Q6HP PRN (Reason: JOINT PAIN) Rx Instructions: apply to single elbow, wrist or hand; for hand includes palm/fingers/back of hand Adults Multivitamin 18 mg iron-400 mcg-25 mcg Tablet 1 tab PO DAILY hydrocodone-acetaminophen 5-325 mg tablet 1 tab PO Q6HP PRN (Reason: Moderate Pain (Scale Score 5-6)) sertraline 100 mg tablet 150 mg PO DAILY prednisone 20 mg tablet 40 mg PO DAILY 5 Days Qty: 10 0RF trazodone 50 mg tablet 50 mg PO HS 30 Days Qty: 30 0RF meropenem-0.9% sodium chloride 1 gram/50 mL piggyback 1 g IV Q8H 7 Days Clinical Impressions Clinical Impression: Ureterolithiasis, Acute UTI, Compression fracture of T7 vertebra Print Language Print Language: Malay Discharge ED Provider: Williams Martinez General Adult HPI <Williams Martinez MD - Last Filed: 03/27/25 15:05> General Chief complaint: Back Pain/Injury Stated complaint: back pain Time Seen by Provider: 03/27/25 13:59 Mode of Arrival: EMS Source of Information: Patient Description of Symptoms (Recalled from ER Triage Doc. by RN): patient comes from [facility] states she has history of chronic back pain and has been having lumbar back pain for several days 05/18. has she describes the pain as a stabbing pain. History of Present Illness HPI narrative: Meme Carey is a 64y female with a history of cerebral palsy, osteoporosis, hyperlipidemia, neurogenic bladder status post suprapubic catheter who presents to the emergency department for complaints of thoracic back pain. Patient states that she has had pain in the middle of her back for a few weeks now but states that it became unbearable today. She denies any new trauma or falls and states that she is nonambulatory. She states that at the assisted, they did x-rays about a week ago and told her that she had fractures in her spine and would likely need an MRI. She denies any new numbness or tingling. She states that the pain wraps around from the middle of her spine to the left chest. She denies any chest pain or shortness of breath. She states that she has been taking Tylenol, ibuprofen and pain patches that have not been helping. Related Data Home Medications ?Medication ?Instructions ?Recorded ?Confirmed cyanocobalamin (vitamin B-12) 1,000 mcg IM MONTHLY 11/04/18 03/03/25 1,000 mcg/mL injection solution cholecalciferol (vitamin D3) 50 25 mcg PO DAILY 10/11/19 03/03/25 mcg (2,000 unit) tablet levothyroxine 200 mcg tablet 200 mcg PO DAILY 02/14/23 03/03/25 omeprazole 40 mg capsule,delayed 40 mg PO DAILY 02/14/23 03/03/25 release acetaminophen 500 mg tablet 1,000 mg PO Q6HP PRN Mild Pain 09/27/24 03/03/25 (Scale Score 1-4) dantrolene 50 mg capsule 50 mg PO TID 09/27/24 03/03/25 diclofenac sodium 1 % topical gel 1 ea topical Q6HP PRN JOINT PAIN 09/27/24 03/03/25 diphenhydramine HCl 25 mg tablet 25 mg PO TIDP PRN Itching 09/27/24 03/03/25 gabapentin 400 mg capsule 400 mg PO TID 09/27/24 03/03/25 hydrocodone 5 mg-acetaminophen 325 1 tab PO Q6HP PRN Moderate Pain 09/27/24 03/03/25 mg tablet (Scale Score 5-6) lactulose 10 gram/15 mL oral 20 g PO DAILYP PRN Constipation 09/27/24 03/03/25 solution levetiracetam 500 mg tablet 500 mg PO BID 09/27/24 03/03/25 melatonin 3 mg tablet 6 mg PO HS 09/27/24 03/03/25 midodrine 5 mg tablet 5 mg PO BID 09/27/24 03/03/25 multivit with minerals-iron 18 1 tab PO DAILY 09/27/24 03/03/25 mg-folic ac 400 mcg-vit K 25 mcg tablet (Adults Multivitamin) polyethylene glycol 3350 17 17 g PO DAILY 09/27/24 03/03/25 gram/dose oral powder sennosides 8.6 mg-docusate sodium 1 tab PO HS 09/27/24 03/03/25 50 mg tablet (Stimulant Laxative Plus) sertraline 100 mg tablet 150 mg PO DAILY 09/27/24 03/03/25 tizanidine 2 mg capsule 2 mg PO BID 09/27/24 03/03/25 Previous Rx's ?Medication ?Instructions ?Recorded linaclotide 145 mcg capsule 145 mcg PO DAILY #30 caps 09/21/24 (Linzess) prednisone 20 mg tablet 40 mg (2 x 20 mg) PO DAILY 5 days 09/27/24 #10 tabs trazodone 50 mg tablet 50 mg PO HS 30 days #30 tabs 09/27/24 meropenem 1 gram/50 mL in 0.9% 1 g IV Q8H 7 days 10/07/24 sodium chloride intravenous piggyback Allergies Allergy/AdvReac Type Severity Reaction Status Date / Time metoclopramide (From REGLAN) Allergy Mild I-RASH Verified 02/16/25 11:24 Sulfa (Sulfonamide Allergy Mild I-RASH Verified 02/16/25 11:24 Antibiotics) (SULFA (SULFONAMIDE ANTIBIOTICS)) morphine Allergy Vomiting Verified 02/16/25 11:24 PFSH <Williams Martinez MD - Last Filed: 03/27/25 15:05> [facility] Disclaimer: The information contained in this section may have been updated after the patient was seen, as this information can be updated by other users. Medical History (Updated 03/27/25 @ 18:45 by Chang Burroughs MD) Physical debility Neurogenic bladder Generalized anxiety disorder New onset seizure Osteoporosis History of hypertension Hyperlipidemia GERD (gastroesophageal reflux disease) Depression Surgical History H/O kyphoplasty H/O tubal ligation H/O thyroidectomy Hx of appendectomy Family History Other No significant family history Social History Smoking Status: Never smoker second hand exposure: No alcohol intake: never counseling provided: none substance use type: denies use current occupational status: disabled Travel in the last 8 weeks?: None household members: spouse housing: house lives independently: No marital status: number of children: 2 current occupational exposures/hazards: No caffeine: Yes Have you lived/traveled outside [place] in past 30 days?: No Contact w/someone who lives/traveled outside US past 30 days?: No Exposure to someone with infectious disease in past 14 days?: No Do you have a fever (greater than 100.4 F or 38 C)?: No Have you tested positive for COVID-19?: No Exposed to someone with COVID-19 in past 14 days?: No Do you have a sore throat?: No Do you have a cough?: No Do you have any weakness?: No Do you have any diarrhea?: No Are you experiencing any unusual bleeding?: No Do you have any muscle aches/pain?: No Do you have any abdominal pain?: No Are you experiencing loss of taste or smell?: No Other Medical History Have you received the Flu Vaccine for this season: Yes Have you received the Pneumonia Vaccine: Yes <Williams Martinez MD - Last Filed: 03/27/25 15:05> ROS Obtained: Yes Systems reviewed as appropriate & no additional complaints except as documented Physical Exam <Williams Martinez MD - Last Filed: 03/27/25 15:05> General General appearance: alert and in no apparent distress Head Head exam: atraumatic Eye Eye exam: Present normal appearance ENT ENT exam: Present normal external ear exam Neck Neck exam: Present full ROM Chest Chest inspection: Present symmetric chest wall rise Respiratory Respiratory exam: Present normal lung sounds bilaterally; Absent respiratory distress Cardiovascular Cardiovascular exam: Present regular rate and normal rhythm Abdominal Exam Abdominal exam: Present soft; Absent tenderness or guarding Extremities Exam Extremities exam: Present normal inspection Back Exam Back exam: Present normal inspection and tenderness (Tenderness over the mid thoracic spine without deformity or step-off. No tenderness in the paraspinal areas.) Neurological Exam Neurological exam: Present alert and oriented X3 Psychiatric Psychiatric exam: Present normal affect Skin Skin exam: Present warm and dry Medical Decision Making <Williams Martinez MD - Last Filed: 03/27/25 15:05> Medical Records Screening: Per USPSTF and CDC recommendations, given the prevalence of disease in our region, it is our hospital?s policy to screen for HIV and viral Hepatitis for all patients aged 18 and over and those with ongoing risk factors. Claus Inquiry Pt receiving controlled substance: No Vital Signs: 03/27/25 13:39 03/27/25 14:01 03/27/25 14:30 Temperature 98.3 F Temperature Source Oral Pulse Rate 63 Pulse Rate [Right Radial] 78 Respiratory Rate 15 Blood Pressure 130/72 138/91 H Blood Pressure [Right Arm] 134/82 Blood Pressure Mean 91 Blood Pressure Mean [Right Arm] 99 Blood Pressure Source [Right Arm] Automatic Cuff Blood Pressure Position [Right Arm] Supine 02 Sat by Pulse Oximetry 100 96 97 Oxygen Delivery Method Room Air 03/27/25 15:00 03/27/25 15:30 03/27/25 16:00 Temperature Temperature Source Pulse Rate 74 71 86 Pulse Rate [Right Radial] Respiratory Rate Blood Pressure 144/90 H 156/86 H 154/109 H Blood Pressure [Right Arm] Blood Pressure Mean Blood Pressure Mean [Right Arm] Blood Pressure Source [Right Arm] Blood Pressure Position [Right Arm] 02 Sat by Pulse Oximetry 98 97 96 Oxygen Delivery Method Room Air 03/27/25 16:30 03/27/25 17:15 03/27/25 17:30 Temperature Temperature Source Pulse Rate 64 93 H 77 Pulse Rate [Right Radial] Respiratory Rate Blood Pressure 148/96 H 133/113 H Blood Pressure [Right Arm] Blood Pressure Mean Blood Pressure Mean [Right Arm] Blood Pressure Source [Right Arm] Blood Pressure Position [Right Arm] 02 Sat by Pulse Oximetry 96 97 97 Oxygen Delivery Method 03/27/25 18:00 03/27/25 18:31 Temperature Temperature Source Pulse Rate 87 75 Pulse Rate [Right Radial] Respiratory Rate Blood Pressure 158/78 H 135/72 Blood Pressure [Right Arm] Blood Pressure Mean Blood Pressure Mean [Right Arm] Blood Pressure Source [Right Arm] Blood Pressure Position [Right Arm] 02 Sat by Pulse Oximetry 97 95 Oxygen Delivery Method Lab Data Lab Results 03/27/25 14:31: WBC 6.6, RBC 4.75, Hgb 12.2, Hct 39.0, MCV 82.1, MCH 25.7 L, MCHC 31.3 L, RDW 15.0, Plt Count 186, MPV 9.5, Neut % (Auto) 84.5 H, Lymph % (Auto) 9.7 L, Bibb % (Auto) 3.9, Eos % (Auto) 0.5, Baso % (Auto) 0.3, Neut # (Auto) 5.6, Lymph # (Auto) 0.6 L, Bibb # (Auto) 0.3, Eos # (Auto) 0.0, Baso # (Auto) 0.0, ESR 22, Sodium 136, Potassium 4.2, Chloride 105, Carbon Dioxide 26, Anion Gap 9.2, BUN 20 H, Creatinine 0.30 L, Estimated Creat Clear 75, Estimated GFR 223, Est GFR ( Amer) 269, Glucose 105 H, Calcium 8.8, Total Bilirubin 0.6, AST 23, ALT 13, Alkaline Phosphatase 83, C-Reactive Protein 6.8 H, Total Protein 7.3, Albumin 4.2, Globulin 3.1, Albumin/Globulin Ratio 1.4, HCV Ab SERGEI w/Rflx PCR Qn Negative, HIV Ag/Ab Combo Qual Negative 03/27/25 16:57: Urine Color Yellow, Urine Appearance Cloudy, Urine pH 8.0, Ur Specific [place] 1.020, Urine Protein Trace, Urine Glucose (UA) Negative, Urine Ketones Negative, Urine Blood 1+ A, Urine Nitrate Negative, Urine Bilirubin Negative, Urine Urobilinogen 0.2, Ur Leukocyte Esterase 3+ A, Urine RBC 5-10, Urine WBC 10-20, Ur Squamous Epith Cells 10-20, Amorphous Sediment 4+, Urine Bacteria 4+ 03/27/25 14:31 03/27/25 14:31 Orders (Tests/Meds): ED MEDICATIONS Discontinued Medications Generic Name Dose Route Start Last Admin Trade Name Otoniel PRN Reason Stop Dose Admin Acetaminophen 1,000 mg 03/27/25 14:12 03/27/25 14:18 Acetaminophen 500mg Tab PO 03/27/25 14:13 1,000 mg ONCE ONE Administration Ceftriaxone Sodium 1 gm/ 50 mls @ 100 mls/hr 03/27/25 18:02 03/27/25 18:16 Sodium Chloride IV 03/27/25 18:31 100 mls/hr ONCE ONE Administration Methocarbamol 1,000 mg 03/27/25 14:13 03/27/25 14:19 Methocarbamol 500mg Tablet PO 03/27/25 14:14 1,000 mg ONCE ONE Administration Ondansetron HCl 4 mg 03/27/25 17:13 03/27/25 17:23 Ondansetron 4mg/2ml Vial IV 03/27/25 17:14 4 mg ONCE ONE Administration Oxycodone HCl 5 mg 03/27/25 17:13 03/27/25 17:23 Oxycodone 5mg Immediate Release Tablet PO 03/27/25 17:14 5 mg ONCE ONE Administration ORDERS Category Date Time Status CT abdomen pelvis wo con Stat Cat Scan 03/27/25 16:[address] thoracic spine wo con Stat Cat Scan 03/27/25 14:12 Completed CXR --portable [XR chest portable] Stat Exams 03/27/25 14:12 Completed CBC w/Auto Diff [Complete Blood Count Auto Diff] Stat Lab 03/27/25 14:31 Completed CMP [Comprehensive Metabolic Panel] Stat Lab 03/27/25 14:31 Completed CRP [C-Reactive Protein] Stat Lab 03/27/25 14:31 Completed ESR [Erythrocyte Sedimentation Rate] Stat Lab 03/27/25 14:31 Completed HIV Combo Stat Lab 03/27/25 14:31 Completed Hepatitis C Ab Qual. W/ RFX Stat Lab 03/27/25 14:31 Completed UA [Urinalysis and Microscopic] Stat Lab 03/27/25 16:57 Completed Urine Culture Stat Micro 03/27/25 16:57 Received ECG Data Tracing #1: I reviewed this ECG and interpreted as documented below: Normal sinus rhythm with ventricular rate of [address] elevation or depression. Mild T wave inversions in lead V2 that are nonspecific. QTc normal at 399 Medical Decision Narrative: Meme Carey is a 64y female with a history of cerebral palsy, osteoporosis, hyperlipidemia, back surgery, neurogenic bladder status post suprapubic catheter who presents to the emergency department for complaints of thoracic back pain. Patient states that she has had pain in the middle of her back for a few weeks now but states that it became unbearable today. She denies any new trauma or falls and states that she is nonambulatory. She states that at the assisted, they did x-rays about a week ago and told her that she had fractures in her spine and would likely need an MRI. She denies any new numbness or tingling. She states that the pain wraps around from the middle of her spine to the left chest. She denies any chest pain or shortness of breath. She states that she has been taking Tylenol, ibuprofen and pain patches that have not been helping. On arrival, patient is normotensive, heart rate within normal limits, breathing comfortably on room air with oxygen saturation 96% SpO2. Physical exam, stated above, revealed an overall well-appearing female in no distress. She has some left-sided facial droop and weakness in both lower extremities that she states is at her baseline due to mild cerebral palsy. She has a suprapubic catheter in place. Abdomen is soft, nontender and nondistended. She has tenderness in the mid thoracic spine without step-off or deformity. No tenderness in the bilateral paraspinal areas. No cervical or lumbar spine tenderness or step-offs. Cardiopulmonary exam is unremarkable. Differential diagnosis includes, but is not limited to: Thoracic spine fracture, degenerative disc disease, herniated disc, rib fracture, pneumothorax, among others. The most morbid conditions were considered and workup was based on these. Will give 1 g of Tylenol and 1000 mg of Robaxin as patient is already been taking Tylenol, ibuprofen and lidocaine patches without relief. She does state that she is allergic to morphine, will avoid opiates at this time. I am unable to see these x-ray images from her assisted and cannot confirm fractures, and given patient's pain worsened today, will obtain dedicated CT imaging of the spine without contrast. Patient has had no dedicated thoracic spine imaging since 2022 and our EMR, which was a spine MRI in April 2023 that showed T2-3 discitis/osteomyelitis with surrounding inflammatory soft tissue resulting in mild canal stenosis. Interval postoperative changes of T2-3 laminectomies. Workup in the emergency department included: CBC, CMP, ESR, CRP, chest x-ray, EKG, CT thoracic spine without contrast. Chest x-ray interpreted by me personally. No focal consolidation, pleural effusion, pneumothorax. Patient does have an enlarged cardiac silhouette. See final radiology report for details At this time, CT thoracic spine and laboratory studies are pending. Patient's care transferred to the oncoming physician, Dr. Burroughs. <Chang Burroughs MD - Last Filed: 03/27/25 18:45> Vital Signs: 03/27/25 13:39 03/27/25 14:01 03/27/25 14:30 Temperature 98.3 F Temperature Source Oral Pulse Rate 63 Pulse Rate [Right Radial] 78 Respiratory Rate 15 Blood Pressure 130/72 138/91 H Blood Pressure [Right Arm] 134/82 Blood Pressure Mean 91 Blood Pressure Mean [Right Arm] 99 Blood Pressure Source [Right Arm] Automatic Cuff Blood Pressure Position [Right Arm] Supine 02 Sat by Pulse Oximetry 100 96 97 Oxygen Delivery Method Room Air 03/27/25 15:00 03/27/25 15:30 03/27/25 16:00 Temperature Temperature Source Pulse Rate 74 71 86 Pulse Rate [Right Radial] Respiratory Rate Blood Pressure 144/90 H 156/86 H 154/109 H Blood Pressure [Right Arm] Blood Pressure Mean Blood Pressure Mean [Right Arm] Blood Pressure Source [Right Arm] Blood Pressure Position [Right Arm] 02 Sat by Pulse Oximetry 98 97 96 Oxygen Delivery Method Room Air 03/27/25 16:30 03/27/25 17:15 03/27/25 17:30 Temperature Temperature Source Pulse Rate 64 93 H 77 Pulse Rate [Right Radial] Respiratory Rate Blood Pressure 148/96 H 133/113 H Blood Pressure [Right Arm] Blood Pressure Mean Blood Pressure Mean [Right Arm] Blood Pressure Source [Right Arm] Blood Pressure Position [Right Arm] 02 Sat by Pulse Oximetry 96 97 97 Oxygen Delivery Method 03/27/25 18:00 03/27/25 18:31 Temperature Temperature Source Pulse Rate 87 75 Pulse Rate [Right Radial] Respiratory Rate Blood Pressure 158/78 H 135/72 Blood Pressure [Right Arm] Blood Pressure Mean Blood Pressure Mean [Right Arm] Blood Pressure Source [Right Arm] Blood Pressure Position [Right Arm] 02 Sat by Pulse Oximetry 97 95 Oxygen Delivery Method Lab Data Lab Results 03/27/25 14:31: WBC 6.6, RBC 4.75, Hgb 12.2, Hct 39.0, MCV 82.1, MCH 25.7 L, MCHC 31.3 L, RDW 15.0, Plt Count 186, MPV 9.5, Neut % (Auto) 84.5 H, Lymph % (Auto) 9.7 L, Bibb % (Auto) 3.9, Eos % (Auto) 0.5, Baso % (Auto) 0.3, Neut # (Auto) 5.6, Lymph # (Auto) 0.6 L, Bibb # (Auto) 0.3, Eos # (Auto) 0.0, Baso # (Auto) 0.0, ESR 22, Sodium 136, Potassium 4.2, Chloride 105, Carbon Dioxide 26, Anion Gap 9.2, BUN 20 H, Creatinine 0.30 L, Estimated Creat Clear 75, Estimated GFR 223, Est GFR ( Amer) 269, Glucose 105 H, Calcium 8.8, Total Bilirubin 0.6, AST 23, ALT 13, Alkaline Phosphatase 83, C-Reactive Protein 6.8 H, Total Protein 7.3, Albumin 4.2, Globulin 3.1, Albumin/Globulin Ratio 1.4, HCV Ab SERGEI w/Rflx PCR Qn Negative, HIV Ag/Ab Combo Qual Negative 03/27/25 16:57: Urine Color Yellow, Urine Appearance Cloudy, Urine pH 8.0, Ur Specific [place] 1.020, Urine Protein Trace, Urine Glucose (UA) Negative, Urine Ketones Negative, Urine Blood 1+ A, Urine Nitrate Negative, Urine Bilirubin Negative, Urine Urobilinogen 0.2, Ur Leukocyte Esterase 3+ A, Urine RBC 5-10, Urine WBC 10-20, Ur Squamous Epith Cells 10-20, Amorphous Sediment 4+, Urine Bacteria 4+ Orders (Tests/Meds): ED MEDICATIONS Discontinued Medications Generic Name Dose Route Start Last Admin Trade Name Freq PRN Reason Stop Dose Admin Acetaminophen 1,000 mg 03/27/25 14:12 03/27/25 14:18 Acetaminophen 500mg Tab PO 03/27/25 14:13 1,000 mg ONCE ONE Administration Ceftriaxone Sodium 1 gm/ 50 mls @ 100 mls/hr 03/27/25 18:02 03/27/25 18:16 Sodium Chloride IV 03/27/25 18:31 100 mls/hr ONCE ONE Administration Methocarbamol 1,000 mg 03/27/25 14:13 03/27/25 14:19 Methocarbamol 500mg Tablet PO 03/27/25 14:14 1,000 mg ONCE ONE Administration Ondansetron HCl 4 mg 03/27/25 17:13 03/27/25 17:23 Ondansetron 4mg/2ml Vial IV 03/27/25 17:14 4 mg ONCE ONE Administration Oxycodone HCl 5 mg 03/27/25 17:13 03/27/25 17:23 Oxycodone 5mg Immediate Release Tablet PO 03/27/25 17:14 5 mg ONCE ONE Administration ORDERS Category Date Time Status CT abdomen pelvis wo con Stat Cat Scan 03/27/25 16:[address] thoracic spine wo con Stat Cat Scan 03/27/25 14:12 Completed CXR --portable [XR chest portable] Stat Exams 03/27/25 14:12 Completed CBC w/Auto Diff [Complete Blood Count Auto Diff] Stat Lab 03/27/25 14:31 Completed CMP [Comprehensive Metabolic Panel] Stat Lab 03/27/25 14:31 Completed CRP [C-Reactive Protein] Stat Lab 03/27/25 14:31 Completed ESR [Erythrocyte Sedimentation Rate] Stat Lab 03/27/25 14:31 Completed HIV Combo Stat Lab 03/27/25 14:31 Completed Hepatitis C Ab Qual. W/ RFX Stat Lab 03/27/25 14:31 Completed UA [Urinalysis and Microscopic] Stat Lab 03/27/25 16:57 Completed Urine Culture Stat Micro 03/27/25 16:57 Received Medical Decision Narrative: Meme Carey is a 64y female with a history of cerebral palsy, osteoporosis, hyperlipidemia, back surgery, neurogenic bladder status post suprapubic catheter who presents to the emergency department for complaints of thoracic back pain. Patient states that she has had pain in the middle of her back for a few weeks now but states that it became unbearable today. She denies any new trauma or falls and states that she is nonambulatory. She states that at the assisted, they did x-rays about a week ago and told her that she had fractures in her spine and would likely need an MRI. She denies any new numbness or tingling. She states that the pain wraps around from the middle of her spine to the left chest. She denies any chest pain or shortness of breath. She states that she has been taking Tylenol, ibuprofen and pain patches that have not been helping. On arrival, patient is normotensive, heart rate within normal limits, breathing comfortably on room air with oxygen saturation 96% SpO2. Physical exam, stated above, revealed an overall well-appearing female in no distress. She has some left-sided facial droop and weakness in both lower extremities that she states is at her baseline due to mild cerebral palsy. She has a suprapubic catheter in place. Abdomen is soft, nontender and nondistended. She has tenderness in the mid thoracic spine without step-off or deformity. No tenderness in the bilateral paraspinal areas. No cervical or lumbar spine tenderness or step-offs. Cardiopulmonary exam is unremarkable. Differential diagnosis includes, but is not limited to: Thoracic spine fracture, degenerative disc disease, herniated disc, rib fracture, pneumothorax, among others. The most morbid conditions were considered and workup was based on these. Will give 1 g of Tylenol and 1000 mg of Robaxin as patient is already been taking Tylenol, ibuprofen and lidocaine patches without relief. She does state that she is allergic to morphine, will avoid opiates at this time. I am unable to see these x-ray images from her assisted and cannot confirm fractures, and given patient's pain worsened today, will obtain dedicated CT imaging of the spine without contrast. Patient has had no dedicated thoracic spine imaging since 2022 and our EMR, which was a spine MRI in April 2023 that showed T2-3 discitis/osteomyelitis with surrounding inflammatory soft tissue resulting in mild canal stenosis. Interval postoperative changes of T2-3 laminectomies. Workup in the emergency department included: CBC, CMP, ESR, CRP, chest x-ray, EKG, CT thoracic spine without contrast. Chest x-ray interpreted by me personally. No focal consolidation, pleural effusion, pneumothorax. Patient does have an enlarged cardiac silhouette. See final radiology report for details At this time, CT thoracic spine and laboratory studies are pending. Patient's care transferred to the oncoming physician, Dr. Burroughs. Chang Burroughs: Upon assumption of care patient is hemodynamically stable. Workup thus far reviewed by me hematologic labs are nonactionable no significant leukocytosis, essentially no elevation in inflammatory markers no MALIA or critical electrolyte abnormality. Given no reports of dysuria or chest pain as well as the fact that she is tender over her thoracic spine investigation into this was considered but will be deferred. CT imaging informally visualized by me I can see her old kyphoplasties, no acute [address] shows interval development mild acute superior endplate fracture of T7 with slight retropulsion along the posterior superior margin but no central canal narrowing there is moderate left renal hydronephrosis which is new since her CT of 6 ? 9 ? [address] of the abdomen pelvis was recommended. Given this urinalysis and CT abdomen pelvis will be obtained. CT abdomen pelvis and formally visualized by me there appears to be ureteral stone on the left. Formal read shows 2 adjacent obstructing stones noted in the proximal to mid left ureter 5 cm distal to the UPJ. Proximal stone is 6 mm, immediately distal is a 2 mm stone with moderate left-sided hydroureteronephrosis. Given indwelling suprapubic Gastelum catheter and multiple stones with bacteria in the urine nitrate negative the case was discussed with Dr. Vu at [facility] regarding management who graciously except the patient for transfer to [facility] for continued evaluation at this time. Critical Care <Williams Martinez MD - Last Filed: 03/27/25 15:05> Critical Care Time Critical Care Time: No
--- NOTE | 2025-03-27 14:12 | XR_ITS ---
PROCEDURE INFORMATION: Exam: XR Chest Exam date and time: 03/27/2025 2:36 PM Age: 64 years old Clinical indication: Other: Left rib pain TECHNIQUE: Imaging protocol: Radiologic exam of the chest. Views: 1 view. COMPARISON: 1. CT CHEST WO CON 02/14/2025 1:05 PM 2. CR XR CHEST PORTABLE PICC PLAC 10/07/2024 6:00 PM FINDINGS: Lungs: Unremarkable. No consolidation. Pleural spaces: Unremarkable. No pleural effusion. No pneumothorax. Heart/Mediastinum: Unremarkable. No cardiomegaly. Bones/joints: Unremarkable. IMPRESSION: Stable chest x-ray with no acute disease.
--- NOTE | 2025-03-27 14:12 | CT_ITS ---
PROCEDURE INFORMATION: Exam: CT Thoracic Spine Without Contrast Exam date and time: 03/27/2025 2:35 PM Age: 64 years old Clinical indication: Pain in thoracic spine; Additional info: Pain, mid t spine. Fracture? TECHNIQUE: Imaging protocol: Computed tomography of the thoracic spine without contrast. Radiation optimization: All CT scans at this facility use at least one of these dose optimization techniques: automated exposure control; mA and/or kV adjustment per patient size (includes targeted exams where dose is matched to clinical indication); or iterative reconstruction. COMPARISON: 1. MR THORACIC SPINE WO/W CON 04/21/2023 12:[address] CHEST WO CON 02/14/2025 1:[address] ABDOMEN PELVIS W CON 10/07/2024 1:45 PM FINDINGS: Bones/joints: Interval development since CT chest of 02/14/2025 of a mild acute superior endplate compression fracture of T7 with slight retropulsion along the posterosuperior margin but no significant central canal narrowing.. Old severe compression fracture of T3 and mild to moderate superior endplate compression fracture of T4 redemonstrated. Old moderate compression fractures of T11 and T12 with vertebral plasties redemonstrated. Associated retropulsion along the posteroinferior margin of T12 with [id number]-[id number] central canal narrowing and mild retropulsion along the posterosuperior margin of T11 with mild central canal narrowing similar to previous Vertebral body heights are otherwise intact. Soft tissues: Unremarkable. Kidneys and ureters: Evidence for potential moderate left renal hydronephrosis partially included in field of view which has developed in the interval since CT chest of 02/14/2025. IMPRESSION: 1. Interval development since CT chest of 02/14/2025 of a mild acute superior endplate compression fracture of T7 with slight retropulsion along the posterosuperior margin but no significant central canal narrowing.. 2. Evidence for moderate left renal hydronephrosis partially included in field of view which has developed in the interval since CT chest of 02/14/2025. Consider further assessment with CT of the abdomen and pelvis.
[2025-03-27] MEDS: ACETAMINOPHEN 500MG TAB 1000 MG PO (14:18)
[2025-03-27] MEDS: METHOCARBAMOL 500MG TABLET 1000 MG PO (14:19)
[2025-03-27 14:43] LABS: Albumin Level 4.2 g/dl (3.5-5.0); Chloride 105 mmol/L (98-107); Potassium 4.2 mmoL/L (3.5-5.1); Sodium 136 mmol/L (136-145)
[2025-03-27 14:46] LABS: Alanine Aminotransferase 13 U/L (12-78); Albumin/Globulin Ratio 1.4 (1.1-1.8); Alkaline Phosphatase 83 U/L (38-126); Anion Gap 9.2 mEq/L (5-15); Aspartate Amino Transferase 23 U/L (14-36); Bilirubin,Total 0.6 mg/dl (0.2-1.3); Blood Urea Nitrogen 20 mg/dl (7-17); Calcium 8.8 mg/dl (8.4-10.2); Carbon Dioxide 26 mmol/L (22.0-30.0); Creatinine Clearance Estimated 75 mL/min (50-200); Creatinine,Serum 0.30 mg/dl (0.52-1.04); Estimated Glomerular Filt Rate 223 ml/min (>60); GFR (African American) 269 ML/MIN (>60); Globulin 3.1 g/dL (1.3-3.2); Glucose 105 mg/dl (74-100); Total Protein,Serum 7.3 g/dl (6.3-8.2)
[2025-03-27 14:48] LABS: Hematocrit 39.0 % (37.0-47.0); Hemoglobin 12.2 g/dL (12.2-16.2); Immature Granulocytes % 1.1 %; Mean Corpuscular HGB Conc 31.3 g/dL (31.8-35.4); Mean Corpuscular Hemoglobin 25.7 pg (27.0-31.2); Mean Corpuscular Volume 82.1 fl (81-99); Nucleated Red Blood Cells % 0 %; Platelet Count 186 K/mm3 (142-424); Red Blood Count 4.75 M/mm3 (4.20-5.40); Red Cell Distribution Width-SD 45.6 fL; White Blood Count 6.6 K/mm3 (4.8-10.8)
--- NOTE | 2025-03-27 14:59 | ECG_ITS ---
APPROVED REPORT Exam: Resting ECG HR:77 bpm ECG Measurements Heart Rate 77 AXES RI 146 P 41 QRSd 101 QRS -23 QT 367 T 47 QTc 399 Conclusion SINUS RHYTHM WITH OCCASIONAL SUPRAVENTRICULAR PREMATURE COMPLEXES BORDERLINE LEFT AXIS DEVIATION [QRS AXIS < -20] INCOMPLETE RIGHT BUNDLE BRANCH BLOCK [90+ ms QRS DURATION, TERMINAL R IN V1/V2, 40+ ms S IN I/aVL/V4/V5/V6] BORDERLINE ECG Electronically signed by : MARIANELA CONTRERAS, 03/27/2025 15:50:09
[2025-03-27 15:39] LABS: C-Reactive Protein 6.8 mg/L (0-4)
[2025-03-27 15:44] LABS: Hepatitis C Ab Qual. W/ RFX NEGATIVE (Negative)
--- NOTE | 2025-03-27 16:47 | CT_ITS ---
PROCEDURE INFORMATION: Exam: CT Abdomen And Pelvis Without Contrast Exam date and time: 03/27/2025 5:01 PM Age: 64 years old Clinical indication: Other: L hydronephrosis back pain TECHNIQUE: Imaging protocol: Computed tomography of the abdomen and pelvis without contrast. Radiation optimization: All CT scans at this facility use at least one of these dose optimization techniques: automated exposure control; mA and/or kV adjustment per patient size (includes targeted exams where dose is matched to clinical indication); or iterative reconstruction. COMPARISON: CT ABDOMEN PELVIS W CON 10/07/2024 1:45 PM FINDINGS: Tubes, catheters and devices: Bladder decompressed with a suprapubic catheter. Multiple dependent bladder stones noted. Lungs: Lung bases are clear. Liver: Normal. No mass. Gallbladder and biliary ducts: Normal. No calcified stones. No ductal dilation. Pancreas: Normal. No ductal dilation. Spleen: Normal. No splenomegaly. Adrenal glands: Normal. No mass. Kidneys and ureters: Two adjacent obstructing stones noted in the proximal to mid left ureter 5 cm distal to the ureteropelvic junction. The more proximal stone measures 6 x 5 mm. A 2 mm stone immediately distal to this stone noted. Associated [id number] left-sided hydroureteronephrosis. Additional small nonobstructing left kidney stones also noted. Remainder of the left ureter is normal course and caliber. Right kidney and ureter otherwise unremarkable with no obstructing stones or uropathy. Stomach and bowel: See Intraperitoneal space finding. Appendix: No evidence of appendicitis. Intraperitoneal space: Small amount of pelvic free fluid. Scattered fluid noted throughout the colon. GI tract structures otherwise unremarkable with no evident wall thickening allowing for incomplete distention. Vasculature: Unremarkable. No abdominal aortic aneurysm. Lymph nodes: Unremarkable. No enlarged lymph nodes. Urinary bladder: See Tubes, catheters and devices finding. Reproductive: Unremarkable as visualized. Bones/joints: old compression deformities of L2 and L5 redemonstrated. Soft tissues: Unremarkable. IMPRESSION: 1. Two adjacent obstructing stones noted in the proximal to mid left ureter 5 cm distal to the ureteropelvic junction. The more proximal stone measures 6 x 5 mm. A 2 mm stone immediately distal to this stone noted. Associated [id number] left-sided hydroureteronephrosis. 2. Fluid scattered throughout the colon suggesting possible diarrheal illness. Additional nonemergent findings as above.
[2025-03-27 17:06] LABS: Microscopic, Urine URINE MICROSCOPIC (MICROSCOPIC)
[2025-03-27 17:08] LABS: Bilirubin,Urine Negative (Negative); Color,Urine YELLOW (Yellow); Glucose,Urine (UA) Negative (Negative); Ketones,Urine Negative (Negative); Leukocyte Esterase,Urine 3+ (Negative); PH,Urine 8.0 (5.0-8.5); Protein,Urine TRACE (Negative); Specific Gravity, Urine 1.020 (1.005-1.030); Urobilinogen,Urine 0.2 EU/dl (0.2)
[2025-03-27] MEDS: OXYCODONE 5MG IMMEDIATE RELEASE TABLET 5 MG PO (17:23)
[2025-03-27] MEDS: ONDANSETRON 4MG/2ML VIAL 4 MG IV ×2 (17:23→20:54)
[2025-03-27 17:32] LABS: Amorphous Sediment,Urine 4+ /lpf; Bacteria,Urine 4+ /lpf
--- NOTE | 2025-03-27 18:05 | PC.NURSE ---
Called for a patient transfer per . they will call back when the physician is ready to talk.
--- NOTE | 2025-03-27 18:05 | PC.NURSE ---
Radiology will power share to [facility]
[2025-03-27] MEDS: CEFTRIAXONE 1 GM 1 GM in 0.9 % SODIUM CHLORIDE 50 ML IV (18:16)
--- NOTE | 2025-03-27 19:11 | PC.NURSE ---
Called EMS for them to come get patient for transfer to [facility]. they stated that it probably would be after shift change before they took her because the other ambulance wasnt back from the previous transfer.
--- NOTE | 2025-03-29 09:10 | PC.NURSE ---
Urine culture results faxed to [facility]
== END 2025-03-27 23:20 | disposition short-term general hospital (02) ==
PROVIDERS: Student in an Organized Health Care Education/Training Program; Emergency Provider Emergency Medicine
DX: N20.1 Calculus of ureter (principal); N39.0 Urinary tract infection, site not specified; M48.54XA Collapsed vertebra, not elsewhere classified, thoracic region, initial encounter for fracture; I10 Essential (primary) hypertension; E78.5 Hyperlipidemia, unspecified
CPT/HCPCS: 71045; 72128; 74176; 80053; 81001; 85025; 85651; 86140; 86803; 87086; 87088; 87186; 87389; 93005; 96374; 96375; 96376; 99285; J0696; J2405

== ENCOUNTER 2025-05-05 13:47 | Outpatient (CLI) | payer MEDICARE, MEDICAID, SELFPAY ==
--- OUTSIDE RECORDS SUMMARY | 2025-03-28 00:22 | XMS_ITS | Encounter Summary ---
Author Organization [facility] Address [address] 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 Name Role Phone Luis Henderson MD Unavailable [phone] Kasi Jacobs MD Unavailable [phone] Luis Henderson MD Primary Care Provider [phone] Maria Guadalupe Madrigal APRN Unavailable [phone] Reason for Referral * Consultation (Routine) - Authorized Specialty Diagnoses / Procedures Referred By Vincent t Referred To Contact Urology Diagnoses Kidney stone Junior Baird, [employer] [address] [place] [address] Phone: tel: fax: [facility] [address] [place] [address] Phone: tel: fax: Referral ID Status Reason Start Date Expiration Date Visits Requested Visits Authorized [id number] Authorized Specialty Services Required 03/30/2025 09/29/2026 1 1 Scheduling Instructions Patient had left ureter stent placement on 03/28 with Urology. Reason for Visit * Reason Comments Kidney Stone * Auth/Cert (Routine) Specialty Diagnoses / Procedures Referred By Vincent t Referred To Contact Diagnoses Hydronephrosis concurrent with and due to calculi of kidney and ureter kidney stones and chronic compression fx Luis Alfredo Hodges MD [address] [place] [address] Phone: tel: fax: [facility] [address] [place] [address] Phone: tel: Referral ID Status Reason Start Date Expiration Date Visits Re quested Visits Authorized [id number] 1 1 Encounter Details Date Type Department Care Team (Latest Contact Info) Description 03/28/2025 12:22 AM EDT - 03/30/2025 9:13 AM EDT Hospital Encounter [facility] [address] [place] [address] Clay Read DO [address] [place] [address] Luis Alfredo Hodges MD [address] [place] [address] Bina Jain MD [address] [place] [address] Kidney stone (Primary Dx); Chronic suprapubic catheter (CMS/HCC); Compression fracture of T7 vertebra, initial encounter (CMS/HCC); Spastic quadriplegic cerebral palsy (CMS/HCC); Neurogenic bladder; Recurrent UTI; Compression fracture of T3 vertebra with routine healing, subsequent encounter Discharge Disposition: [facility]dc Facility Social History Tobacco Use Types Packs/Day Years Used Date Smoking Tobacco: Never Smokeless Tobacco: Never Alcohol Use Standard Drinks/Week Comments Never 0 (1 standard drink = 0.6 oz pure alcohol) Alcoholic Drinks/day: Never Drank Alcohol PHQ-2 Answer Date Recorded Patient Health Questionnaire-2 Score 0 04/01/2025 PHQ-9 Answer Date Recorded Patient Health Questionnaire-9 Score 13 03/22/2024 Humiliation, Afraid, Rape, and Kick questionnair e Answer Date Recorded Within the last year, have y ou been afraid of your partner or ex-partner? No 03/28/2025 Within the last year, have y ou been humiliated or emotionally abused in other ways by your partner or ex-partner? No Within the last year, have y ou been kicked, hit, slapped, or otherwise physically hurt by your partner or ex-partner? No 03/28/2025 Within the last year, have y ou been raped or forced to have any kind of sexual activity by your partner or ex-partner? No 03/28/2025 Hunger Vital Sign Answer Date Recorded Within the past 12 months, y ou worried that your food would run out before you got the money to buy more. Never true 03/28/20 Within the past 12 months, t he food you bought just didn't last and you didn't have money to get more. Never true 03/28/2025 PRAPARE - Transportation Answer Date Re corded In the past 12 months, has l ack of transportation kept you from medical appointments or from getting medications? No 03/09 In the past 12 months, has l ack of transportation kept you from meetings, work, or from getting things needed for daily living? No 03/28/2025 Housing Stability Vital Sign Answer Umair e Recorded In the last 12 months, was t here a time when you were not able to pay the mortgage or rent on time? No 03/28/2025 Number of Times Moved in the Last Year Not on fi le 03/28/2025 At any time in the past 12 m [facility], were you homeless or living in a skilled nursing (including now)? No 03/28/2025 CAGE ASSESSMENT Answer Date Recorded Cage unable [...] drink first t alli in the morning ([employer]) to steady your nerves or to get rid of a hangover? 0 03/16/2023 CAGE Questionnaire Score 0 023 Utilities Answer Date Recorded In the past 12 months has th [email or web address], gas, oil, or water [employer] threatened to shut off services in your home? No 03/28/2025 PHQ-2A Answer Date Recorded Patient Health Questionnaire-2 Score 1 04/17/2023 Comments No Sex and Gender Information Value Date Recorded Sex Assigned at Not on file Legal Sex Female 7:58 PM EDT Gender Identity Not on file Sexual Orientation Not on file documented as of this encounter Last Filed Vital Signs Vital Sign Reading Time Taken Comments Blood Pressure 134/83 03/30/2025 8:09 AM EDT Pulse 84 03/30/2025 8:09 AM EDT Temperature 36.9 C (98.5 F) 03/30/2025 8:09 AM EDT Respiratory Rate 16 03/30/2025 7:00 AM EDT Oxygen Saturation 95% 03/30/2025 8:09 AM EDT Inhaled Oxygen Concentration - - Weight 61.2 kg (134 lb 14.7 oz) 03/28/2025 5:06 PM EDT Height 167.6 cm (5' 5.98 ) 03/28/2025 5:06 PM ED T Body Mass Index 21.79 03/28/2025 5:06 PM EDT documented in this encounter Functional Status * Over the past 2 weeks, how often have you been bothered by any of the following problems? Question Answer Date of Assessment Author Little interest or pleasure in doing things Not at all 04/01/2025 2:11 PM EDT Kasi Stewart Feeling down, depressed, or hopeless Not at all 03/09 2:11 PM EDT Kasi Stewart Patient Health Questionnaire-2 Score 0 03/09 2:11 PM EDT Kasi Stewart * Calculated C-SSRS Risk Score (Lifetime/Recent) Answer Date of Assessment Author No Risk Indicated 03/30/2025 7:50 AM EDT Zackery Singer RN * Question Answer Date of Assessment Author 1. Wish to be (Past 1 Month) No 025 7:50 AM EDT Delia Singer RN 2. Non-Specific Active Suici abeba Thoughts (Past 1 Month) No 03/30/2025 7:50 AM EDT Delia Singer RN 6. Suicidal Behavior (Lifetime) No 7:50 AM EDT Delia Singer RN documented as of this encounter Discharge Instructions * Discharge Instructions* Edu Ceja RN - 03/30/2025 7:36 AM EDT Post Discharge Instructions Resume taking home medications as directed. You will continue your antibiotics for 10 days. Follow up with Urology. A referral for a follow up visit has been placed but your facility will need to help facilitate appointment as well. documented in this encounter Medications at Time of Discharge acetaminophen (Tylenol) 500 MG tablet Take 2 tablets by mouth every 8 hours as needed for pain or headaches. alendronate (Fosamax) 70 MG tablet Take 1 tablet by mouth every 7 days. Take in the morning with a full glass of water, on an empty stomach, and do not take anything else by mouth or lie down for the next 30 min. Calcium Antacid 500 MG chewable tablet 5 Calcium Carbonate-Vitamin D (calcium-vitamin D) 500-200 MG-UNIT tablet Take 1 tablet by mouth 2 times a day. Cranberry 200 MG capsule Take 200 mg by mouth 2 times a day. dantrolene (Dantrium) 50 MG capsule Take 1 capsule by mouth 3 times a day. furosemide (Lasix) 20 MG tablet Take 1 tablet by mouth daily. gabapentin (Neurontin) 400 MG capsule Take 1 capsule by mouth 3 times a day. hydrOXYzine pamoate (Vistaril) 25 MG capsule 5 ibuprofen 600 MG tablet Take 1 tablet by mouth every 6 hours as needed for mild pain. lactulose (Chronulac) 10 GM/15ML solution Take 30 mL by mouth daily as needed (for constipation). levETIRAcetam (Keppra) 500 MG tablet Take 1 tablet by mouth 2 times a day. levothyroxine (Synthroid, Levoxyl) 200 MCG tablet Take 1 tablet by mouth daily before breakfast. Lidocaine 4 % patch Apply 1 patch topically daily. linaCLOtide (Linzess) 145 MCG capsule Take 1 capsule by mouth daily. loratadine (Claritin) 10 MG tablet 5 melatonin tablet Take 2 tablets by mouth nightly. methylPREDNISolone (Medrol Dospak) 4 MG tablets Take by mouth. Follow schedule on package instructions midodrine (Proamatine) 5 MG tablet Take 1 tablet by mouth 2 times a day. Milk of Magnesia 1200 MG/15ML suspension 5 mirabegron ER (Myrbetriq) 50 MG tablet Take 1 tablet by mouth daily. Misc Natural Products (Iberogast) capsule Take 1 capsule by mouth 2 times a day. multivitamin (Theragran-M) tablet Take 1 tablet by mouth daily. naloxone (Narcan) 4 mg/0.1 mL nasal spray 1. Give 1 spray in nostril for no/slow breathing or cannot wake after opioid use 2. Call 911 3. Repeat in other nostril if symptoms continue 1 each 5 ondansetron ODT (Zofran-ODT) 4 MG disintegrating tablet Dissolve 1 tablet on the tongue every 6 hours as needed for nausea or vomiting. 20 tablet 5 sertraline (Zoloft) 100 MG tablet Take 2 tablets by mouth daily. tamsulosin (Flomax) 0.4 MG 24 hr capsule Take 1 capsule by mouth 1 time each day with dinner. 30 capsule 5 tiZANidine (Zanaflex) 4 MG tablet Take 1 tablet by mouth 2 times a day. traMADol (Ultram) 50 MG tablet 5 traZODone (Desyrel) 50 MG tablet Take 1 tablet by mouth nightly. oxyCODONE (Roxicodone) 5 MG immediate release tablet Take 1 tablet by mouth every 6 hours as needed for moderate pain or severe pain for up to 3 days. 12 tablet 5 04/01/20 25 phenazopyridine (Pyridium) 100 MG tablet Take 1 tablet by mouth 3 times a day with meals for 10 doses. 10 tablet 5 04/02/20 25 ciprofloxacin (Cipro) 500 MG tabletIndications:K sharon stone,Recurrent UTI Take 1 tablet by mouth 2 times a day for 7 days. 5 04/11/20 25 documented as of this encounter Miscellaneous Notes * Progress Notes - Barney Ramirez MD - 03/30/2025 9:13 AM EDT [facility] Urology Inpatient Progress Note Primary Attending: Yahaira Leslie MD Procedure(s): Left ureteral stent placement 03/28 SUBJECTIVE: - NAEON. Patient resting comfortably in bed. She endorses mild back pain. No issues with suprapubicdrainage. She denies fevers, chills, nausea, vomiting, or severe stent colic. PHYSICAL EXAM: Temp: [36.7 ??C (98.1 ??F)-37.8 ??C (100.1 ??F)] 36.9 ??C (98.5 ??F) Heart Rate: [73-97] 84 Resp: [14-18] 16 BP: (96-136)/(61-83) 134/83 SpO2: [91 %-95 %] 95 % I O Shift I O 24Hrs LDAs I/O this shift: In: 752.5 [P.O.:240; I.V.:512.5] Out: 300 [Urine:300] I/O last 3 completed shifts: In: 3486 (57 mL/kg) [P.O.:1386; I.V.:1900 (31 mL/kg); IV Piggyback:200] Out: 4050 (66.2 mL/kg) [Urine:4050 (1.8 mL/kg/hr)] Weight: 61.2 kg Suprapubic Catheter Single lumen 16 Fr. (Active) Placement Date/Time: 03/28/25318 Inserted by: Dylan GASPAR Hand Hygiene Completed: Yes Catheter Type:Single lumen Tube Size (Fr.): 16 Fr. Catheter Balloon Size: (c) Other (Comment) Urine Returned: YesSecurement Method: Catheter securement device Ureteral Drain/Stent Left ureter 4.8 Fr. (Active) Placement Date/Time: 03/28/25 1140 Inserted by: Dr. Leslie Hand Hygiene Completed: Yes Location: Left ureter Tube Size (Fr.): 4.8 Fr. GEN: NAD HEENT: NCAT, EOMI RESP: Equal bilateral chest rise, normal work of breathing CV: Regular rate, appears well perfused ABD: Nondistended : SPT draining CYU EXT: No gross deformities MSK: Full ROM in BL UE NEURO: No focal deficits, alert and oriented PSYCH: Normal mood and affect LABS: Results from last 7 days Lab Units 03/30/25 0235 WBC 10*3/uL 5.30 HEMOGLOBIN g/dL 11.0* HEMATOCRIT % 35.2 PLATELETS 10*3/uL 148* Results from last 7 days Lab Units 03/30/25 0235 SODIUM mmol/L 142 POTASSIUM mmol/L 3.1* CHLORIDE mmol/L 110* CO2 mmol/L 22 BUN mg/dL 6* CREATININE mg/dL 0.27* EGFR mL/min/1.73m*2 120.2 GLUCOSE mg/dL 101* CALCIUM mg/dL 8.3* Results from last 7 days Lab Units 03/28/25 0327 COLOR UA Yellow SPEC GRAV U 1.025 PH UA 6.0 PROTEIN UR mg/dL 100* GLUCOSE UA mg/dL Negative KETONES UA mg/dL Negative LEUKOCYTES UA Moderate* NITRITE UA Positive* RBC, URINE /HPF Unable to estimate due to obscuring WBC's (UNEWBC) WBC, URINE /HPF >50* SQUAMOUS /HPF Unable to estimate due to obscuring WBC's (UNEWBC) BACTERIA UR HPF Present Results from last 7 days Lab Units 03/28/25 1148 URINE CULTURE 1,000 - 10,000 CFU/mL Enterobacter cloacae complex* 1,000 - 10,000 CFU/mL Morganella morganii* >=10,000 CFU/mL - Biotype 1 Enterococcus faecalis* >=10,000 CFU/mL - Biotype 2Enterococcus faecalis* IMAGING: === 03/28/25 === CT LUMBAR SPINE WO IV CONTRAST - Narrative - CLINICAL INDICATION: fx TECHNIQUE: Imaging of the entire cervical, thoracic, and lumbar spine was performed, using spiral technique, without contrast administration. Reformatted images in the coronal and sagittal planes were generatedfrom the axial data set to facilitate diagnostic accuracy and/or surgical planning. Total DLP (Dose-Length Product): 1311.58 mGy.cm (accession [id number]), 1311.58 mGy.cm (accession [id number]), 327.76 mGy.cm (accession [id number]). Please note: The reported value represents the total of one or more individual components during the CT acquisition on this date and at this time, and as such, the same value may appear in more than one CT report depending on the interpreting/reporting physicians. COMPARISON: 03/27/[address] FINDINGS: Cervical Spine: Vertebrae: No acute fracture. Multilevel degenerative changes. Significant calcification of the anterior ligament throughout the majority of the cervical spine. Alignment: No acute traumatic malalignment. Straightening of the cervical lordosis. Paraspinal Soft Tissues: No paraspinal hematoma. Lung Apices: No pneumothorax at the lung apices. Thoracic Spine: Vertebrae: There is a superior endplate compression deformity with mild osseous retropulsion at T7 and no significant associated canal stenosis. There is approximately 30% vertebral body height loss.Postprocedural changes following prior T11-T12 vertebroplasty, T2-T3 laminectomies old appearing compression deformity at T3. Multilevel degenerative changes. Alignment: No acute traumatic malalignment. Paraspinal Soft Tissues: No paraspinal hematoma. Lumbar Spine: Vertebrae: No acute fracture. Multilevel degenerative changes. Similar compression deformities of L2. Alignment: No acute traumatic malalignment. Paraspinal Soft Tissues: No paraspinal hematoma. Incidentally noted left hydroureteronephrosis withureteral obstructive calculi measuring up to around 4 mm. - Impression - There is T7 superior endplate compression deformity with approximate 30% vertebral body height loss, minimal osseous retropulsion and no significant associated canal stenosis. This appearance is new compared with radiograph dated 10/13/2024, however is ultimately age indeterminate and may represent acute or subacute injury. No acute fracture or traumatic malalignment of the cervical and lumbar spine. Incidentally noted obstructive left ureteral calculi with upstream hydroureteronephrosis. The ureteral calculus measures up to around 4 mm. CRITICAL RESULT: No. COMMUNICATION: Per this written report. Preliminary report signed by Gerardo Benedict MD on 03/28/2025 3:03 AM By electronically signing this report, I, the attending physician, attest that I have personally reviewed the images/data for the above examination(s) and agree with the final edited report. Drafted by Gerardo Benedict MD on 03/28/2025 2:56 AM Final report signed by Cole Carballo MD on 03/28/2025 3:43 AM HOSPITAL PROBLEM LIST: Principal Problem: Hydronephrosis concurrent with and due to calculi of kidney and ureter Active Problems: Cerebral palsy Neurogenic bladder Chronic suprapubic catheter (CMS/HCC) Recurrent UTI Kidney stone Physical debility Compression fracture of T3 vertebra (CMS/HCC) Depression ASSESSMENT: Meme Chavarria is a 64 y.o. female with PMH CP, NGB s/p SPT in 04/2024, recurrentUTI presenting with left ureteral stones, hydronephrosis, and left flank pain. CT imaging at OSH demonstrated 6 mm and 3 mm proximal mid left ureteral stones with upstream moderate left hydroureteronephrosis. Additional small non-obstructing stones in bilateral lower poles. A T7 compression fracture was also noted which ortho is planning to manage non-operatively. UA concerning for infection (obtained from SPT). She was taken to the OR for L Ureteral Stent placement on 03/28. She is recovering well postoperatively PLAN: - Continue SPT - Ok to DC on current abx regimen - Trend UOP and CR - Urology will continue to follow if she remains inpatient Barney Ramirez MD Urology PGY-2 Cosigned by Yahaira Leslie MD at 03/30/2025 2:38 PM EDT Associated attestation - Yahaira Leslie MD - 03/30/2025 2:38 PM EDT I saw and evaluated the patient. I discussed the case with the resident/fellow and agree with the findings and plan as documented. * Ashley Ibarra - Edu Ceja, RN - 03/30/2025 8:43 AM EDT Images from the original note were not included. [id number] Jacobs Catheter Care A Jacobs catheter, also called an indwelling urinary catheter, is a flexible plastic or rubber tube that is placed through the urethra and into the bladder. The urethra is the opening where urine comes out. The catheter helps drain urine from the bladder. There is a small balloon on the end of the tube that is inflated after the catheter is put in place. This keeps the catheter from sliding out ofthe bladder. A Jacobs catheter is used when you are unable to pass urine (urinary retention). It's also used whenthere is loss of bladder control (incontinence). It's also used after bladder or prostate surgery. Home care ? Take all the prescribed medicines including antibiotics as advised by your health care provider. Do not stop taking the medicines even if you feel better before the prescribed duration is over. ? Wash your hands well with soap and water before and after handling a Jacobs catheter and collection bag. ? It's important to keep bacteria from getting into the collection bag. Don't disconnect the catheter from the collection bag. ? Use a leg band to secure the drainage tube, so it doesn't pull on the catheter. ? Don't try to pull or remove your catheter. This will injure your urethra. It must be removed by your provider or nurse. ? Drain the collection bag when it becomes full using the drain spout at the bottom of the bag. Follow-up care Follow up with your health care provider, or as advised. This is for repeat urine testing and for catheter removal or replacement. When to get medical advice Call 911 for any dizziness or fainting. Contact your health care provider right away if: ? You have a fever of 100.4??F (38??C) or higher, or as directed by your provider. ? You have bladder pain or fullness. ? You have abdominal swelling, nausea or vomiting, or back pain. ? There is blood or urine leakage around the catheter. ? Bloody urine is coming from the catheter (if a new symptom). ? The catheter falls out. ? The catheter stops draining for 6 hours. ? You are feeling weak. Last Reviewed Date: 2024 00:00:00 ?? [id number] [employer]. All rights reserved. This information is not intended as a substitute for professional medical care. Always follow your healthcare professional's instructions. * Progress Notes - Naresh Barros RN - 03/30/2025 8:01 AM EDT Case Management Discharge Note Meme Chavarria 64 y.o. 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: Primary Caregiver: Self Assistance Available at Discharge: Current Outpatient/Agency/Support Group: long-term acute care facility Housing Circumstances-Z Codes: Patient Referred to Financial or Community Resources: Discharge Facility/Level of Care Needs: Patient's Choice of Community Agency(s): Patient/Family Anticipated Services at Transition: Patient/Family Anticipated Services at Transition: case coordinator DME/Equipment Needed after Discharge: Equipment Currently Used at Home: wheelchair, manual, other (see comments) (suprapubic cath) Readmission Within the Last 30 Days: Readmission Within the Last 30 Days: no previous admission in last 30 days Medicare Documentation: Follow-up: Chang Burroughs MD [address] [place] [address] [facility] [address] [facility] [address] Discharge Transportation: Transportation Anticipated: medical transport, agency Follow Up Transport: Additional Comments: Pt is returning back to [facility] in [place] via beside stretcher. Naresh Barros RN * Ashley Ibarra - Edu Ceja, RN - 03/30/2025 7:53 AM EDT Images from the original note were not included. [id number] Having a Ureteral Stent A ureteral stent is a soft, flexible plastic tube. It's 8 to 11 inches long. It?s temporarily put into a ureter to help drain urine into the bladder. One end goes in the kidney. The other end goes into the bladder. A coil on each end holds the stent in place. The stent can?t be seen from outside the body. It should not get in the way of your normal routine. Your stent will be put in by a doctor trained in treating the urinary tract (urologist). Or it may be put in by another specialist. The procedure is done in a hospital or surgery center. You?ll likely go home the same day. When is a ureteral stent used? A ureteral stent may be used: ? To bypass a blockage in a kidney or ureter. ? During kidney stone removal. ? To let a ureter heal after surgery. Before the procedure Your doctor will tell you how to prepare for the procedure. Tell your doctor if you were ill recently. Also tell them about any allergies or health conditions you have. Be sure your doctor knows about all the medicines you take. These include herbal supplements and medicines that don't need a prescription. X-rays or other imaging tests will be done ahead of time. These tests will be of your kidneys and ureters. During the procedure ? You receive medicine to prevent pain and help you relax or sleep during the procedure. Once this takes effect, the procedure starts. ? The doctor puts a cystoscope (lighted instrument) through the urethra and into the bladder. This shows the opening to the ureter. ? A thin wire is carefully threaded through the cystoscope, up the ureter, and into the kidney. Thestent is inserted over the wire. ? A fluoroscope (special X-ray machine) is used to help position the stent. When the stent is in place, the wire and cystoscope are removed. While you have a stent ? Some pain is normal. If you move in a certain way, it may cause pain or a feeling that you need to urinate. You may also feel mild soreness or pressure before or during urination. These symptoms will go away a few days after the stent is removed. ? Medicine to control pain or bladder spasms or to prevent infection may be prescribed. Take it as directed. ? Drink plenty of fluids to help flush out your urinary tract. ? Your urine may be slightly pink or red. This is due to bleeding caused by minor irritation from the stent. This may happen on and off while you have the stent. ? As with any synthetic device placed in the body, there is a risk of infection. The stent may haveto be removed if this happens. How long will you need a stent? The stent is often taken out after the blockage in the ureter is treated or the ureter has healed. This may take 1 week to 2 weeks, or longer. If a stent is needed for a long time, it may need to be changed every few months. When to contact your doctor Contact your doctor right away if: ? Your urine contains blood clots or you see a large amount of blood-tinged urine. ? You have symptoms similar to those you had before the stent was placed. ? You constantly leak urine. ? You have a fever of 100.4??F (38??C) or higher, or as directed by your doctor. ? You have chills. ? You experience nausea or vomiting. ? Your pain is not relieved with medicine. ? The end of the stent comes out of the urethra. ? You experience new or worsening symptoms. Last Reviewed Date: 2024 00:00:00 ?? [id number] [employer]. All rights reserved. This information is not intended as a substitute for professional medical care. Always follow your healthcare professional's instructions. * Discharge Summary - Junior Baird APRN - 03/30/2025 7:40 AM EDT Hospitalization Admit Date/Time: 03/28/2025 12:22 AM Admitting Attending: Luis Alfredo Hodges Discharge Date: 03/30/2025 Discharge Attending Physician: Bina Jain MD PCP name and Address: Luis Henderson MD [facility] [address] / [place] [address] Referring provider name and address: Chang Burroughs MD [address] [facility] [address] [place] [address] Chief Concern, Brief History of Present Illness, and Hospital Course Meme Chavarria is a 64 y.o. with past medical history of CP (wheelchair at baseline), NGB s/pSPT in 04/2024, recurrent UTI presenting with left ureteral stones, hydronephrosis, and left flank pain. CT scan was done at the outside hospital which demonstrated a 6 mm and a 3 mm proximal mid left ureteral stone. Hydronephrosis was also seen upstream of the obstruction. Small stones were also seen in bilateral lower poles of the kidney. Surgery to remove stones, and a left ureteral stent placed on 03/28. She tolerated the procedure well and spent the following day inpatient. Patient will return to intermediate care facility. Left Ureteral Stone UTI Left Flank Pain Hydronephrosis - Recommend Tylenol, Pyridium, +/- Dilaudid and Oxycodone PRN - Suprapubic Jacobs replaced with this visit. - Started on ceftriaxone, previous urine cultures do not show resistance to ceftriaxone. - Follow urine cultures - Continue IV fluids - Continue Flomax - Multimodal pain control - Cystoscopy with left retrograde pyelogram cystolitholapxy performed - Left 4.8 Fr ureteral stent placement performed - Stones were evaluated in Left Kidney as well as several stones were seen in bladder. - Hypothyroidism - Continue synthroid Cerebral Palsy - Dantrolene continue - Continue gabapentin - Continue zanaflex Neurogenic Bladder - Suprapubic catheter in place upon arrival - Continue myrbetriq Compression Fracture of T7 vertebra -Ortho consulted - Prior T11-12 vertebroplasty ([facility]) - Prior T2-T3 laminectomies (Dr. Gtz 03/2023) for T3 burst fx/spinal epidural abscess - Dependent on wheelchair at baseline - Follow up neurosurgery in 6/8 weeks - No twisting, bending, or lifting things greater than 10lbs Nausea/Vomiting - Continue zofran - Continue compazine Surgeries and Procedures Procedures performed in this encounter Procedures Case Request Operating Room: CYSTOSCOPY, WITH URETERAL STENT INSERTION OR REMOVAL Case Request Operating Room: URETEROSCOPY CYSTOSCOPY, WITH URETERAL STENT INSERTION (Left) Medication List .. acetaminophen 500 MG tablet Commonly known as: Tylenol Take 2 tablets by mouth every 8 hours as needed for pain or headaches. alendronate 70 MG tablet Commonly known as: Fosamax Take 1 tablet by mouth every 7 days. Take in the morning with a full glass of water, on an empty stomach, and do not take anything else by mouth or lie down for the next 30 min. calcium-vitamin D 500-200 MG-UNIT tablet Take 1 tablet by mouth 2 times a day. cefadroxil 1 g tablet Commonly known as: Duricef Take 1 tablet by mouth 2 times a day. Cranberry 200 MG capsule Take 200 mg by mouth 2 times a day. dantrolene 50 MG capsule Commonly known as: Dantrium Take 1 capsule by mouth 3 times a day. furosemide 20 MG tablet Commonly known as: Lasix Take 1 tablet by mouth daily. gabapentin 400 MG capsule Commonly known as: Neurontin Take 1 capsule by mouth 3 times a day. Iberogast capsule Take 1 capsule by mouth 2 times a day. ibuprofen 600 MG tablet Take 1 tablet by mouth every 6 hours as needed for mild pain. lactulose 10 GM/15ML solution Commonly known as: Chronulac Take 30 mL by mouth daily as needed (for constipation). levETIRAcetam 500 MG tablet Commonly known as: Keppra Take 1 tablet by mouth 2 times a day. levothyroxine 200 MCG tablet Commonly known as: Synthroid, Levoxyl Take 1 tablet by mouth daily before breakfast. Lidocaine 4 % patch Apply 1 patch topically daily. linaCLOtide 145 MCG capsule Commonly known as: Linzess Take 1 capsule by mouth daily. melatonin tablet Take 2 tablets by mouth nightly. methylPREDNISolone 4 MG tablets Commonly known as: Medrol Dospak Take by mouth. Follow schedule on package instructions midodrine 5 MG tablet Commonly known as: Proamatine Take 1 tablet by mouth 2 times a day. mirabegron ER 50 MG tablet Commonly known as: Myrbetriq Take 1 tablet by mouth daily. multivitamin tablet Take 1 tablet by mouth daily. naloxone 4 mg/0.1 mL nasal spray Commonly known as: Narcan 1. Give 1 spray in nostril for no/slow breathing or cannot wake after opioid use 2. Call 911 3. Repeat in other nostril if symptoms continue ondansetron ODT 4 MG disintegrating tablet Commonly known as: Zofran-ODT Dissolve 1 tablet on the tongue every 6 hours as needed for nausea or vomiting. oxyCODONE 5 MG immediate release tablet Commonly known as: Roxicodone Take 1 tablet by mouth every 6 hours as needed for moderate pain or severe pain for up to 3 days. phenazopyridine 100 MG tablet Commonly known as: Pyridium Take 1 tablet by mouth 3 times a day with meals for 10 doses. sertraline 100 MG tablet Commonly known as: Zoloft Take 2 tablets by mouth daily. tamsulosin 0.4 MG 24 hr capsule Commonly known as: Flomax Take 1 capsule by mouth 1 time each day with dinner. tiZANidine 4 MG tablet Commonly known as: Zanaflex Take 1 tablet by mouth 2 times a day. traZODone 50 MG tablet Commonly known as: Desyrel Take 1 tablet by mouth nightly. Where to Get Your Medications [facility] [place] [place] [facility] [address] [facility], [place] [address] cefadroxil 1 g tablet naloxone 4 mg/0.1 mL nasal spray ondansetron ODT 4 MG disintegrating tablet oxyCODONE 5 MG immediate release tablet phenazopyridine 100 MG tablet tamsulosin 0.4 MG 24 hr capsule Discharge Diagnosis Medical Problems Active and Resolved Hospital Problems Hospital Cerebral palsy Overview Addendum 04/01/2023 4:38 PM by Anu Leach APRN, DNP Spasticity treatment per PMR: 25mg TID for 7 days, then increase to 50mg TID for 7 days, then consider an increase or continue medication at current dose Neurogenic bladder Overview Signed 03/16/2023 5:53 PM by Concepcion Fernandez APRN, DNP Check residuals as needed Chronic suprapubic catheter (CMS/HCC) Recurrent UTI * (Principal) Hydronephrosis concurrent with and due to calculi of kidney and ureter Physical debility Overview Addendum 04/01/2023 4:38 PM by Anu Leach APRN, DNP Due to cerebral palsy and age PT/OT Compression fracture of T3 vertebra (CMS/HCC) Overview Addendum 04/01/2023 4:39 PM by Anu Leach APRN, DNP NSGY consulted - MRI thoracic and lumbar spine reviewed, concerning for pathologic fractures 2/2 metastases. - Please obtain MRI cervicalm thoracic, and lumbar spine w/w/o contrast - CT C/A/P to evaluate for neoplasm - negative for mets disease - 03/18: T2-3 laminectomy for decompression - Repeat T spine MRI revealing MRI thoracic spine w/w/o contrast with stroke sequences without clear cord infarction (completed) Depression Overview Addendum 04/01/2023 4:39 PM by Anu Leach APRN, DNP Home ativan and zoloft resumed Kidney stone Post Discharge Instructions Resume taking home medications as directed. You will continue your antibiotics for 10 days. Follow up with Urology. A referral for a follow up visit has been placed but your facility will need to help facilitate appointment as well. Outpatient Follow-Up Future Appointments Date Time Provider Department Center 04/01/2025 2:20 PM Maria Guadalupe Madrigal APRN [facility] Test Results Pending At Discharge Pending Labs Order Current Status Surgical Pathology Exam Collected (03/28/25 1146) Calculi (Stone) Analysis In process Vitamin D 1,25 dihydroxy In process Urine Culture Preliminary result Pertinent Physical Exam At Time of Discharge Physical Exam Vitals and nursing note reviewed. HENT: Head: Normocephalic. Mouth/Throat: Pharynx: Oropharynx is clear. Eyes: Conjunctiva/sclera: Conjunctivae normal. Cardiovascular: Rate and Rhythm: Normal rate. Pulses: Normal pulses. Heart sounds: Normal heart sounds. Pulmonary: Effort: Pulmonary effort is normal. Breath sounds: Normal breath sounds. Abdominal: Palpations: Abdomen is soft. Skin: General: Skin is warm and dry. Neurological: General: No focal deficit present. Mental Status: She is alert and oriented to person, place, and time. Mental status is at baseline. Psychiatric: Mood and Affect: Mood normal. Discharge Disposition/Condition Disposition: Home Condition: Stable (s/sx potential problems absent or manageable) I spent >30 minutes of patient care and instruction time in preparation for this discharge. Cosigned by Bina Jain MD at 03/30/2025 8:54 AM EDT Associated attestation - Bina Jain MD - 03/30/2025 8:54 AM EDT The patient was seen only by Advanced Practice Provider ([facility]AG[facility]). * Ashley Ibarra - Junior Baird APRN - 03/30/2025 7:27 AM EDT Images from the original note were not included. 13960 Discharge Instructions: Bladder Training with a Suprapubic Catheter You are going home with a tube that drains urine from your bladder. This is a suprapubic catheter. Your doctor put the catheter right into your bladder through a tiny cut (incision) in your belly. You'll need to train your bladder to work as it did before. It takes time after illness or injury for you to feel the urge to urinate. And your bladder may not empty completely. So, you'll need to checkthe amount of urine in your bladder. By clamping and unclamping the catheter, you'll learn to urinate the way you did before you had thecatheter. The amount of urine that you pass through the urethra will increase. And the amount of urine draining from your catheter will decrease. When you reach less than 50 ml to 75 ml from your catheter for a few days, your doctor may want to remove it. Home care ? Use the bathroom at least every 3 hours. ? Try to pass your urine normally into a container. The container should be a measuring container. Then you can figure out how much urine you passed. Don't be discouraged if this takes some time for you to learn. ? Measure the amount of urine in the container. ? Unclamp your catheter. ? Drain the urine from your catheter. ? Measure the amount of urine. ? Clamp your catheter. ? Write down the amount of urine that you passed normally. And write down the amount from your catheter. ? Add the two amounts together and record the total. Also record the date and time. ? Try to increase the amount of urine you pass normally. Try to decrease the amount left in your catheter. ? Tell your doctor when you are draining less than 50 ml to 75 ml from your catheter. Follow-up care Make a follow-up appointment as directed by your doctor. When to contact your doctor Contact your doctor right away if you have: ? Urine that is cloudy, bloody, or smells bad. ? A fever of 100.4??F (38??C) or higher, or as directed by your doctor. ? Shaking chills. ? Rash, itching, redness, swelling, or drainage at the catheter site. ? A full feeling in your bladder or bladder pain. ? A catheter that is clogged or feels clogged. ? No urine drainage. ? Urine leaking around catheter. ? A catheter or stitches that fall out. Last Reviewed Date: 2024 00:00:00 ?? [id number] [employer]. All rights reserved. This information is not intended as a substitute for professional medical care. Always follow your healthcare professional's instructions. * Ashley Ibarra - Junior Baird APRN - 03/30/2025 7:27 AM EDT Images from the original note were not included. 04774 Identifying Kidney Stones There are four general types of kidney stones. Your kidney stone?s size and shape determine whetherit's likely to pass by itself. Knowing what a stone is made of (its composition) helps your health care provider find its cause and prescribe the best treatment. X-rays or scans can help show the stone's size and shape. Your provider may also give you a strainer to catch the stone while passing urine. The stone can then be sent to a lab for analysis. You may need other types of urine and blood tests to help identify the stone. These tests can also help find causes for different types of stones. The tests can show: ? Size. A stone may be as small as a grain of sand. Some may be the size of a pebble. A few may be as large as a golf ball. Small stones may pass out of your body when you urinate. ? Shape. Small, smooth, round stones may pass easily. Jagged-edged stones often lodge inside the kidney or ureter. Staghorn stones can fill the entire renal pelvis and calyces. ? Composition. Most stones are made of calcium oxalate, a hard compound. Stones made of uric acid or cystine or that are caused by infection (struvite stones), are less dense. Stones often contain more than one chemical. Your healthcare provider may ask you to strain your urine to catch stones for testing. Treating your stones You and your health care provider will work together to form a treatment plan. Your provider may suggest that you let your stone pass naturally. Or you may choose to manage it with medicines. Certainprocedures may also help, such as shock wave lithotripsy or using a thin tube with a camera inside the body to remove the stone (ureteroscopy). When they find out the cause of the stone, you will be told how you can help prevent kidney stones in the future. Last Reviewed Date: 2024 00:00:00 ?? [id number] [employer]. All rights reserved. This information is not intended as a substitute for professional medical care. Always follow your healthcare professional's instructions. * Adismelvin [employer] - Junior Baird APRN - 03/30/2025 7:27 AM EDT Images from the original note were not included. 41124 Understanding Kidney Stones Your kidneys are eddy-shaped organs. They help filter extra salts, waste, and water from your body.You need to drink enough water every day to help flush the extra salts into your urine. Aim for 6 to 8 cups every day. A cup is 8 fluid ounces. What are kidney stones? Kidney stones are made up of chemical crystals that separate out from urine. These crystals clump together to make stones. They may stay in the kidney or move into the urinary tract. Why kidney stones form Kidneys form stones for many reasons. If you don?t drink enough water, for instance, you won?t haveenough urine to dilute chemicals. Then the chemicals may form crystals, which can develop into stones. Here are some reasons why kidney stones form: ? Fluid loss (dehydration). This can concentrate urine, causing stones to form. ? Certain foods. Some foods contain large amounts of the substances that sometimes crystallize intostones. Eating foods that contain a lot of meat or salt can lead to more kidney stones. ? Kidney infections. These infections foster stones by slowing urine flow or changing the acid balance of your urine. ? Family history. If family members have had kidney stones, you?re more likely to have them too. ? A lack of certain substances in your urine. Some substances can help protect you from forming stones. If you don?t have enough of these in your urine, stone formation can increase. ? Other health conditions. Diabetes, gout, cystinuria, and other conditions may increase the risk of kidney stones. ? Certain medicines. Calcium-based antacids, diuretics (water pills), and calcium and vitamin C supplements may increase your risk of forming stones. Do not stop taking any of these medicines unless your health care provider tells you to. Where stones form Stones begin in the cup-shaped part of the kidney (calyx). Some stay in the calyx and grow. Others move into the kidney, pelvis, or the ureter. There they can lodge, block the flow of urine, and cause pain. Symptoms Many stones cause sudden, severe pain and bloody urine. Others cause upset stomach (nausea). Or they can cause a frequent need to pee or trouble peeing. They may cause a burning feeling when you pee.Symptoms often depend on the stone?s size and location. Fever may be a sign of a serious infection.Call your health care provider right away if you develop a fever. Last Reviewed Date: 2024 00:00:00 ?? [id number] The [employer]. All rights reserved. This information is not intended as a substitute for professional medical care. Always follow your healthcare professional's instructions. * Ashley Ibarra - Junior Baird APRN - 03/30/2025 7:27 AM EDT Images from the original note were not included. Kidney Stones - Video Kidney stones are a common problem, affecting about 12% of men and 5% of women. Stones are typically caused by an imbalance in the urinary system: too little water, too much oxalate, or too much calcium. In this video, you'll find out how the stones develop and what you can do to prevent them. To view the video go to this web address: https://bit.ly/[email or web address] Or, scan this QR code with your smart phone Last Reviewed Date: 2020 00:00:00 ?? [id number] The [employer]. All rights reserved. This information is not intended as a substitute for professional medical care. Always follow your healthcare professional's instructions. * Care Plan - America Patel - 03/29/2025 10:08 PM EDT Problem: Adult Inpatient Plan of Care Goal: Plan of Care Review Outcome: Ongoing, Progressing Flowsheets (Taken 03/29/20252205) Progress: improving Plan of Care Reviewed With: patient Goal: Patient-Specific Goal (Individualized) Outcome: Ongoing, Progressing Flowsheets (Taken 03/29/20251999) Patient/Family-Specific Goals (Include Timeframe): pt. will remain free of harm during shift. Individualized Care Needs: safety Anxieties, Fears or Concerns: none stated Goal: Absence of Hospital-Acquired Illness or Injury Outcome: Ongoing, Progressing Intervention: Identify and Manage Fall Risk Flowsheets (Taken 03/29/20251999) Safety Promotion/Fall Prevention: fall prevention program maintained safety round/check completed Intervention: Prevent Skin Injury Flowsheets (Taken 03/29/20252205) Skin Protection: protective footwear used Intervention: Prevent and Manage VTE (Venous Thromboembolism) Risk Flowsheets (Taken 03/29/20252205) VTE Prevention/Management: bilateral lower extremity SCDs (sequential compression devices) on Intervention: Prevent Infection Flowsheets (Taken 03/29/20252205) Infection Prevention: environmental surveillance performed hand hygiene promoted Goal: Optimal Comfort and Wellbeing Outcome: Ongoing, Progressing Intervention: Monitor Pain and Promote Comfort Flowsheets (Taken 03/29/20252205) Pain Management Interventions: quiet environment facilitated care clustered rest Intervention: Provide Person-Centered Care Flowsheets (Taken 03/29/20252205) Trust Relationship/Rapport: care explained questions answered questions encouraged Goal: Readiness for Transition of Care Outcome: Ongoing, Progressing Intervention: Mutually Develop Transition Plan Flowsheets (Taken 03/29/20252205) Current Outpatient/Agency/Support Group: long-term acute care facility Problem: Skin Injury Risk Increased Goal: Skin Health and Integrity Outcome: Ongoing, Progressing Intervention: Optimize Skin Protection Flowsheets (Taken 03/29/20252205) Skin Protection: protective footwear used Head of Bed (HOB) Positioning: HOB at 30 degrees Intervention: Promote and Optimize Oral Intake Flowsheets (Taken 03/29/20252205) Nutrition Interventions: food preferences provided Problem: Fall Injury Risk Goal: Absence of Fall and Fall-Related Injury Outcome: Ongoing, Progressing Intervention: Identify and Manage Contributors Flowsheets (Taken 03/29/20252205) Medication Review/Management: medications reviewed Intervention: Promote Injury-Free Environment Flowsheets (Taken 03/29/20251999) Safety Promotion/Fall Prevention: fall prevention program maintained safety round/check completed Problem: Infection Goal: Absence of Infection Signs and Symptoms Outcome: Ongoing, Progressing Intervention: Prevent or Manage Infection Flowsheets (Taken 03/29/20252205) Infection Management: aseptic technique maintained Fever Reduction/Comfort Measures: lightweight clothing Problem: Surgery Nonspecified Goal: Absence of Bleeding Outcome: Ongoing, Progressing Intervention: Monitor and Manage Bleeding Flowsheets (Taken 03/29/20252205) Bleeding Management: other (see comments) Goal: Effective Bowel Elimination Outcome: Ongoing, Progressing Intervention: Enhance Bowel Motility and Elimination Flowsheets (Taken 03/29/20252205) Bowel Elimination Management: hygiene measures promoted Bowel Motility Enhancement: fluid intake encouraged Goal: Fluid and Electrolyte Balance Outcome: Ongoing, Progressing Intervention: Monitor and Manage Fluid and Electrolyte Balance Flowsheets (Taken 03/29/20252205) Fluid/Electrolyte Management: fluids provided Goal: Absence of Infection Signs and Symptoms Outcome: Ongoing, Progressing Intervention: Prevent or Manage Infection Flowsheets (Taken 03/29/20252205) Infection Management: aseptic technique maintained Fever Reduction/Comfort Measures: lightweight clothing Goal: Anesthesia/Sedation Recovery Outcome: Ongoing, Progressing Intervention: Optimize Anesthesia Recovery Flowsheets (Taken 03/29/20251999) Safety Promotion/Fall Prevention: fall prevention program maintained safety round/check completed Goal: Optimal Pain Control and Function Outcome: Ongoing, Progressing Intervention: Prevent or Manage Pain Flowsheets (Taken 03/29/20252205) Pain Management Interventions: quiet environment facilitated care clustered rest Diversional Activities: television Goal: Nausea and Vomiting Relief Outcome: Ongoing, Progressing Intervention: Prevent or Manage Nausea and Vomiting Flowsheets (Taken 03/29/20252205) Nausea/Vomiting Interventions: sips of clear liquids given Goal: Effective Urinary Elimination Outcome: Ongoing, Progressing Intervention: Monitor and Manage Urinary Retention Flowsheets (Taken 03/29/20252205) Urinary Elimination Promotion: catheter patency maintained Goal: Effective Oxygenation and Ventilation Outcome: Ongoing, Progressing Intervention: Optimize Oxygenation and Ventilation Flowsheets (Taken 03/29/20252205) Head of Bed (HOB) Positioning: HOB at 30 degrees * Delia Mora RN - 03/29/2025 3:14 PM EDT Images from the original note were not included. Preventing DVT After Hospital Discharge - Video Watch what you can do to help prevent deep vein thrombosis while you recover at home. To view the video go to this web address: [email or web address] Or, scan this QR code with your smart phone ?? [employer] * Delia Mora RN - 03/29/2025 3:14 PM EDT Images from the original note were not included. 17501 Preventing a Surgical Site Infection A risk of any surgery is an infection at the surgical site. The surgical site is a cut the surgeon makes in the skin to do the surgery. Surgical site infections can range in type. It may be a minor skin infection. Or it may be severe and include tissue under the skin or other organs. In some cases,a severe infection can cause . The information below tells you: ? About surgical site infections. ? What hospitals do to prevent them. ? How they?re treated if they do occur. ? What you can do to prevent an infection. Hand washing reduces the risk of infection. What causes a surgical site infection? Germs are everywhere. They?re on your skin, in the air, and on things you touch. Many germs are good. Some are harmful. Surgical site infections occur when harmful germs enter your body through the incision in your skin. Some infections are caused by germs that are in the air or on objects. But most are caused by germs found on and in your own body. Who is at risk for a surgical site infection? Anyone can have a surgical site infection. Your risk is higher if you: ? Are an older adult. ? Have a weak immune system. ? Have other health conditions such as diabetes. ? Take certain medicines, such as steroids. ? Are a smoker. ? Have certain types of surgery, such as abdominal surgery. ? Have poor nutrition. ? Are very overweight. ? Have a surgery that lasts longer than 2 hours. What are the symptoms of a surgical site infection? An infection often shows up as skin redness, pain, and swelling around the incision that gets worse. Later, a cloudy or greenish-yellow fluid may come from the incision. The fluid may smell bad. The incision may pull apart or open up. You are likely to have a fever and may feel very ill. Symptoms can appear at any time. They may happen from hours to weeks after surgery. Implants such as an artificial knee or hip can become infected at any time after the surgery. How is a surgical site infection treated? ? A surgical site infection is treated with antibiotics. The type of medicine you get will depend on what may be causing the infection. Most serious wound infections need wound care. In some cases, surgery may be needed on the infected wound. ? An infected skin wound may be reopened and cleaned. A deep wound may need to be packed with gauze. The gauze is changed often until the wound starts to heal from the inside out. Your health care provider will decide the best way to treat your infection. ? If an infection occurs where an implant is placed, the implant may be removed. ? If you have an infection deeper in your body, you may need surgery to treat it. What hospitals do to prevent surgical site infections Many hospitals take these steps to help prevent surgical site infections: ? Handwashing. Before the surgery, your surgeon and all surgery staff scrub their hands and arms with an antiseptic soap. ? Clean skin. The site where your incision is made is carefully cleaned with an antiseptic solution. ? Sterile clothing and drapes. The surgical team wears medical uniforms. These are known as scrub suits. They wear long-sleeved surgical gowns, masks, caps, shoe covers, and sterile gloves. Your bodyis fully covered with a large sterile sheet (sterile drape). There is an opening in the sheet wherethe incision is made. ? Clean air. Operating rooms have special air filters. They use positive pressure airflow to prevent unfiltered air from entering the room. ? Careful use of antibiotics. Antibiotics are given no more than 60 minutes before the incision is made. They are generally stopped within 24 hours after surgery. This depends on the type of surgery.This helps kill germs but prevents problems that can occur when antibiotics are taken longer. ? Controlled blood sugar levels. Your blood sugar level may rise. This can be because of the stressof the surgery. Your blood sugar level is watched closely to make sure it stays within a normal range. High blood sugar delays wound healing. This increases the risk of infection. ? Controlled body temperature. A wdcpc-cxaa-czcorm temperature during or after surgery prevents oxygen from reaching the wound. This makes it harder for your body to fight infection. Hospitals may warm I.V. fluids, and provide warm-air blankets. Your temperature is watched throughout the surgery. ? Safe hair removal. Any hair that must be removed is clipped right before the incision, not shavedwith a razor. This prevents tiny nicks and cuts where germs can enter. ? Wound care. After surgery, a closed wound is covered with a sterile dressing for 1 to 2 days. Open wounds are packed with sterile gauze and covered with a sterile dressing. What you can do to prevent a surgical site infection ? Ask questions. Learn what your hospital is doing to prevent infection. ? If instructed, shower or bathe with plain soap the night before and the day of your surgery. Follow all instructions you're given. You may be asked to use a special cleanser that you don?t rinse off. ? If you smoke, stop as long as possible before and after the surgery. Ask your provider about waysto quit. ? Take antibiotics only when your provider tells you to. Using antibiotics when they?re not needed can create germs that are harder to kill. Finish the entire prescription of your antibiotics even ifyou feel better. ? Ask health care workers to clean their hands with plain soap and water or with an alcohol-based hand grocery sacker before and after caring for you. Don?t be afraid to remind them. ? After surgery, eat healthy foods. Care for your incision as directed by your health care team. When to contact your doctor Contact your provider or seek medical care right away if: ? The pain at the surgical site gets worse. ? A red streak, worse redness, or puffiness appears near the incision. ? Yellowish, cloudy, or bad-smelling fluid leaks from the incision. ? Your stitches dissolve before the wound heals. ? You have a fever of 100.4?? F ( 38??C ) or higher, or as advised by your provider. ? You have a tired feeling that doesn?t go away. Last Reviewed Date: 2024 00:00:00 ?? [id number] [employer]. All rights reserved. This information is not intended as a substitute for professional medical care. Always follow your healthcare professional's instructions. * Ashley Ibarra - Delia Singer RN - 03/29/2025 3:14 PM EDT Images from the original note were not included. 14734 Treating Kidney Stones: Ureteroscopic Stone Removal Ureteroscopic stone removal may be done before, after, or instead of other treatments. If you need this procedure, your doctor will discuss its risks and possible complications. Talk with your doctorabout your medical conditions, allergies, and any medicines you take. This includes medicines that don't need a prescription, vitamins, and supplements. You will get instructions on how to prepare. You will also be given information about the type of anesthesia you will have. This will keep you pain-free during treatment. Removing the stone through the ureter Ureteroscopic stone removal extracts a small stone in your ureter. This is done without an incision. The ureter is the tube that urine flows through from the kidney to the bladder. Your doctor placesa viewing tube (ureteroscope) in your ureter. A wire basket inserted through the tube removes the stone. Sometimes, a laser or a mechanical device is used to break up a larger stone. A soft tube may be left in your ureter briefly to drain urine. Your recovery This is an outpatient or overnight procedure. For a few days after surgery, you may feel some pain when you urinate. You may also feel the need to urinate more often or have bloody urine. You may be given medicines to relieve pain. You may also use ice packs or heating pads to relieve pain. You may be given an antibiotic for 1 or 2 days to prevent an infection. If your doctor prescribed antibiotics, take them as directed. You need to take the full course of antibiotics. You may be instructed to drink at least 8 to 16 ounces of water per hour for a few hours after the procedure. You may have a ureteral stent. This is a soft tube that prevents swelling and blockage after the procedure. The stent is removed when the swelling goes down, often within days. Follow up as instructed to check for any new stones. When to contact your doctor Contact your doctor right away if: ? You have sudden pain or flank pain. ? You have a fever over 100.4??F (38??C), or as advised by your doctor. ? You have nausea that lasts longer than suggested in your discharge instructions. ? You have heavy bleeding when you urinate. ? You have heavy bleeding through your drainage tube. ? You have swelling or redness around your incision. Last Reviewed Date: 2024 00:00:00 ?? [id number] [employer]. All rights reserved. This information is not intended as a substitute for professional medical care. Always follow your healthcare professional's instructions. * Ashley [facility] - Delia Singer RN - 03/29/2025 3:14 PM EDT Images from the original note were not included. [id number] Retrograde Pyelogram What is a retrograde pyelogram? A retrograde pyelogram is an imaging test that uses X-rays to look at your bladder, ureters, and kidneys. The ureters are the long tubes that connect your kidneys to your bladder. This test is usually done during a test called cystoscopy. It uses an endoscope, which is a long, flexible, lighted tube. During a cystoscopy, the healthcare provider can inject contrast dye directly into the ureters. The contrast helps parts of the body show up more clearly on an X-ray. The exam is done using anesthesia. Why might I need a retrograde pyelogram? You may need a retrograde pyelogram if your healthcare provider thinks something is blocking your kidneys or ureters. It's also used to find a possible causes of blood in your urine. This may be a tumor, stone, blood clot, or narrowing (strictures). The test is also used to check the placement of acatheter or a ureteral stent. A stent is a hollow tube that lets urine pass around a blockage. This test can typically be done even if you are allergic to contrast dye. Only a small amount of the dye is absorbed by the body. The test may also be done if you have poor kidney function. Your healthcare provider may have other reasons to recommend a retrograde pyelogram. What are the risks of a retrograde pyelogram? You may want to ask your healthcare provider about the amount of radiation used during the test. Also ask about the risks as they apply to you. Consider writing down all X-rays you get, including past scans and X-rays for other health reasons.Show this list to your provider. The risks of radiation exposure may be tied to the number of X-rays you have and the X-ray treatments you have over time. Tell your healthcare provider if you: ? Are or think you may be. Radiation exposure during may lead to defects. ? Are allergic to or sensitive to any medicines, contrast dye, or iodine. Because contrast dye is used, there is a risk for allergic reaction to the dye. ? Have kidney failure or other kidney problems. In some cases, the contrast dye can cause kidney failure. You are at higher risk for this if you take certain diabetes medicines. Possible complications of retrograde pyelogram include: ? Sepsis ? Urinary tract infection ? Bladder tear ? Bleeding ? Nausea or vomiting You may not be able to have this test if you are severely dehydrated. You may have other risks depending on your specific health condition. Talk with your provider aboutany concerns you have before the procedure. Certain things can make a retrograde pyelogram less accurate. These include: ? Stool or gas in your intestines ? Barium in your intestines from a past barium test How do I get ready for a retrograde pyelogram? ? Your healthcare provider will explain the procedure to you. Ask them any questions you have aboutthe procedure. ? You may be asked to sign a consent form that gives permission to do the procedure. Read the form carefully and ask questions if anything is not clear. ? You'll need to fast for a certain time before the procedure. Your healthcare provider will tell you how long to fast, whether for a few hours or overnight. ? Tell your healthcare provider if you are or think you may be. ? Tell your healthcare provider if you've ever had a reaction to any contrast dye, or if you're allergic to iodine. ? Tell your healthcare provider if you're sensitive to or are allergic to any medicines, latex, tape, and anesthesia. ? Tell your healthcare provider of all prescription and ghsp-sgr-sjocqjs medicines and herbal supplements that you're taking. ? Tell your healthcare provider if you have a history of bleeding disorders. Also tell your provider if you're taking any anticoagulant (blood-thinning) medicines, aspirin, or other medicines that affect blood clotting. You may need to stop these medicines before the test. ? You may need to take a laxative the night before the test and have a cleansing enema or suppository a few hours before the test. ? You may get a sedative before the procedure to help you relax. Because the sedative may make you drowsy, you'll need someone to drive you home. ? Follow any other directions your provider gives you to get ready. What happens during a retrograde pyelogram? You may have a retrograde pyelogram as an outpatient or during a hospital stay. The way the test isdone may vary depending on your condition and your healthcare provider's practices. Generally, the retrograde pyelogram follows this process: 1. You'll be asked to remove any clothing, jewelry, or other objects that may get in the way of thetest. 2. If you need to remove clothing, you'll be given a gown to wear. 3. An IV (intravenous) line will be put in your arm or hand. 4. You'll be asked to lie face up on the X-ray table and place your legs in stirrups. 5. You will get a sedative or general anesthesia in the IV before putting the endoscope in. 6. Your healthcare provider will put an endoscope through the opening in your urethra and move it into the bladder. Once the endoscope is in place, the bladder can be imaged. A thin tube (catheter) may be put into one or both ureters. 7. Your healthcare provider will inject the dye through the catheters. 8. Your healthcare provider will take a series of X-rays. 9. When the X-rays are done, the healthcare provider will remove the catheter and endoscope. What happens after a retrograde pyelogram? Your recovery will vary, depending on the type of procedure done and your healthcare provider?s practices. After the procedure, you'll be taken to the recovery room to be watched. Once your blood pressure, pulse, and breathing are stable and you are alert, you'll be taken to your hospital room or sent home. Your urine output will be watched closely for volume and signs of blood. It may be red from even a small amount of blood. This is normal and doesn't necessarily mean a problem. You may be told to keep watching your urine output for a day or so once you're at home. You may have pain when you urinate. Take a pain reliever for soreness as recommended by your healthcare provider. Aspirin or certain other pain medicines may increase the chance of bleeding. Take only recommended medicine. Call your healthcare provider right away if any of these happen: ? Fever or chills ? Redness, swelling, or bleeding or other drainage from the urinary opening ? Increased pain around the urinary opening ? Increase in the amount of blood in your urine ? Trouble urinating Your healthcare provider may give you other directions, depending on your situation. Next steps Before you agree to the test or procedure make sure you know: ? The name of the test or procedure ? The reason you are having the test or procedure ? What results to expect and what they mean ? The risks and benefits of the test or procedure ? What the possible side effects or complications are ? When and where you are to have the test or procedure ? Who will do the test or procedure and what that person?s qualifications are ? What would happen if you did not have the test or procedure ? Any alternative tests or procedures to think about ? When and how will you get the results ? Who to call after the test or procedure if you have questions or problems ? How much you will have to pay for the test or procedure Last Reviewed Date: 2023 00:00:00 ?? [id number] [employer]. All rights reserved. This information is not intended as a substitute for professional medical care. Always follow your healthcare professional's instructions. * [facility] Delia Singer RN - 03/29/2025 3:13 PM EDT Images from the original note were not included. 68 Cystoscopy Discharge Instructions ([place]) Cystoscopy is a test that lets your doctor look inside your bladder. If you have stones, they may be removed during the cystoscopy. Home care ? If you have back pain or bladder spasms, warm tub baths (no bubbles) may help it go away. ? You may see some blood in your urine. If so, it will look pink. This should go away within 48 hours. ? Drink 6 to 8 glasses of liquid each day. Limit the amount of caffeine. ? You may feel like resting more after surgery. Slowly start to do more each day. Rest when you feel it?s needed. Call your doctor if you have any of the following ? Temperature over 101.5??F or any other sign or symptom of infection ? Trouble passing urine ? Clots of blood in urine You can call the Urology Clinic at . Nights, weekends and holidays, call [facility] at and ask for the Urology Resident affirmative action officer. Call [phone] if you have any of the following ? A lot of pain or vomiting ? Urine becomes bright tucker red or has many clots of blood in it ? Shaking chills ? A large amount of bleeding ? Cannot urinate for 10 to 12 hours and have lower abdominal pain or bloating * [facility] - Delia Singer RN - 03/29/2025 3:12 PM EDT Images from the original note were not included. [id number] Preventing Kidney Stones If you?ve had a kidney stone, you may worry that you?ll have another. Removing or passing your stone doesn?t prevent future stones. But with your health care provider?s help, you can reduce your riskof forming new stones. Follow up with your provider to help find new stones. Depending on your medical condition, you may need to follow up every 3 to 12 months for the rest of your life. Drink lots of water Staying well-hydrated is the best way to reduce your risk of future stones. Drink 8 12-ounce glasses of water daily. Have 2 glasses with each meal and 2 glasses between meals. unless your health careprovider has restricted your fluids. Keep track of your intake. Try keeping a pitcher of water nearby during the day and at night. Ask your provider about how much fluid you should have if you have congestive heart failure, kidney disease, or kidney failure. Take medicines if needed Medicines, including vitamins and minerals, may be prescribed for certain types of stones. You may want to write your doses and medicine times on a calendar. Some medicines decrease stone-forming chemicals in your blood. Others help prevent those chemicals from crystallizing in urine. Still others help keep a normal acid balance in your urine. Follow your prescribed diet Your health care provider will tell you which foods contain the compounds you should not have. Yourprovider may also suggest talking with a dietitian. They can help you plan meals you?ll enjoy that won't put you at risk for future stones. Bring your spouse, partner, or close friend with you when you meet with the dietitian so you can have support for your diet changes. You may be told to limit certain foods, depending on which type of stones you?ve had. Limit the amount of salt in your food to about 2 grams a day. This will help prevent most types of kidney stones.Make sure you get enough calcium in your diet, and stay away from extra calcium supplements. The recommended calcium intake to help prevent calcium stones is 1,000 to 1,200 mg per day. (You can eat 3servings of dairy products with meals to meet the recommendation.) For calcium oxalate stones: Limit animal protein, such as meat, eggs, and fish. Limit grapefruit juice and alcohol. Limit high-oxalate foods (such as cola, tea, chocolate, spinach, rhubarb, wheat bran, and peanuts). Limit sodium intake, because it causes increased leakage of calcium in your urine. For uric acid stones: Limit high-purine foods, such as red meat, shellfish, anchovies, and organ meats. These foods increase uric acid production. Stay away from alcohol and drinks with high fructosecorn syrup. They can increase your risk of forming another kidney stone. For cystine stones: Limit high-methionine foods. (Fish is the most common, but they include eggs and meats too.) These foods increase production of cystine. Last Reviewed Date: 2024 00:00:00 ?? [id number] [employer]. All rights reserved. This information is not intended as a substitute for professional medical care. Always follow your healthcare professional's instructions. * Progress Notes - Barney Ramirez MD - 03/29/2025 10:27 AM EDT [facility] Urology Inpatient Progress Note Primary Attending: Yahaira Leslie MD Procedure(s): Left ureteral stent placement 03/28 SUBJECTIVE: - NAEON. Patient resting comfortably in bed. She endorses mild back pain. No issues with suprapubicdrainage. She denies fevers, chills, nausea, vomiting, or severe stent colic. PHYSICAL EXAM: Temp: [36.4 ??C (97.6 ??F)-37 ??C (98.6 ??F)] 36.7 ??C (98.1 ??F) Heart Rate: [76-98] 91 Resp: [11-18] 17 BP: (100-138)/(50-92) 108/66 SpO2: [92 %-100 %] 94 % I O Shift I O 24Hrs LDAs No intake/output data recorded. I/O last 3 completed shifts: In: 2671.3 (43.6 mL/kg) [P.O.:300; I.V.:2271.3 (37.1 mL/kg); IV Piggyback:100] Out: 2000 (32.7 mL/kg) [Urine:2000 (0.9 mL/kg/hr)] Weight: 61.2 kg Suprapubic Catheter Single lumen 16 Fr. (Active) Placement Date/Time: 03/28/25 0319 Inserted by: Dylan GASPAR Hand Hygiene Completed: Yes Catheter Type:Single lumen Tube Size (Fr.): 16 Fr. Catheter Balloon Size: (c) Other (Comment) Urine Returned: YesSecurement Method: Catheter securement device Ureteral Drain/Stent Left ureter 4.8 Fr. (Active) Placement Date/Time: 03/28/25 1140 Inserted by: Dr. Leslie Hand Hygiene Completed: Yes Location: Left ureter Tube Size (Fr.): 4.8 Fr. GEN: NAD HEENT: NCAT, EOMI RESP: Equal bilateral chest rise, normal work of breathing CV: Regular rate, appears well perfused ABD: Nondistended : SPT draining CYU EXT: No gross deformities MSK: Full ROM in BL UE NEURO: No focal deficits, alert and oriented PSYCH: Normal mood and affect LABS: Results from last 7 days Lab Units 03/29/25 0251 WBC 10*3/uL 5.04 HEMOGLOBIN g/dL 10.7* HEMATOCRIT % 35.2 PLATELETS 10*3/uL 172 Results from last 7 days Lab Units 03/29/25 0251 SODIUM mmol/L 141 POTASSIUM mmol/L 3.8 CHLORIDE mmol/L 110* CO2 mmol/L 24 BUN mg/dL 12 CREATININE mg/dL 0.30* EGFR mL/min/1.73m*2 117.2 GLUCOSE mg/dL 87 CALCIUM mg/dL 8.0* Results from last 7 days Lab Units 03/28/25 0327 COLOR UA Yellow SPEC GRAV U 1.025 PH UA 6.0 PROTEIN UR mg/dL 100* GLUCOSE UA mg/dL Negative KETONES UA mg/dL Negative LEUKOCYTES UA Moderate* NITRITE UA Positive* RBC, URINE /HPF Unable to estimate due to obscuring WBC's (UNEWBC) WBC, URINE /HPF >50* SQUAMOUS /HPF Unable to estimate due to obscuring WBC's (UNEWBC) BACTERIA UR HPF Present Results from last 7 days Lab Units 03/28/25 1148 URINE CULTURE 1,000 - 10,000 CFU/mL Gram Negative Juan* IMAGING: === 03/28/25 === CT LUMBAR SPINE WO IV CONTRAST - Narrative - CLINICAL INDICATION: fx TECHNIQUE: Imaging of the entire cervical, thoracic, and lumbar spine was performed, using spiral technique, without contrast administration. Reformatted images in the coronal and sagittal planes were generatedfrom the axial data set to facilitate diagnostic accuracy and/or surgical planning. Total DLP (Dose-Length Product): 1311.58 mGy.cm (accession [id number]), 1311.58 mGy.cm (accession [id number]), 327.76 mGy.cm (accession [id number]). Please note: The reported value represents the total of one or more individual components during the CT acquisition on this date and at this time, and as such, the same value may appear in more than one CT report depending on the interpreting/reporting physicians. COMPARISON: 03/27/[address] FINDINGS: Cervical Spine: Vertebrae: No acute fracture. Multilevel degenerative changes. Significant calcification of the anterior ligament throughout the majority of the cervical spine. Alignment: No acute traumatic malalignment. Straightening of the cervical lordosis. Paraspinal Soft Tissues: No paraspinal hematoma. Lung Apices: No pneumothorax at the lung apices. Thoracic Spine: Vertebrae: There is a superior endplate compression deformity with mild osseous retropulsion at T7 and no significant associated canal stenosis. There is approximately 30% vertebral body height loss.Postprocedural changes following prior T11-T12 vertebroplasty, T2-T3 laminectomies old appearing compression deformity at T3. Multilevel degenerative changes. Alignment: No acute traumatic malalignment. Paraspinal Soft Tissues: No paraspinal hematoma. Lumbar Spine: Vertebrae: No acute fracture. Multilevel degenerative changes. Similar compression deformities of L2. Alignment: No acute traumatic malalignment. Paraspinal Soft Tissues: No paraspinal hematoma. Incidentally noted left hydroureteronephrosis withureteral obstructive calculi measuring up to around 4 mm. - Impression - There is T7 superior endplate compression deformity with approximate 30% vertebral body height loss, minimal osseous retropulsion and no significant associated canal stenosis. This appearance is new compared with radiograph dated 10/13/2024, however is ultimately age indeterminate and may represent acute or subacute injury. No acute fracture or traumatic malalignment of the cervical and lumbar spine. Incidentally noted obstructive left ureteral calculi with upstream hydroureteronephrosis. The ureteral calculus measures up to around 4 mm. CRITICAL RESULT: No. COMMUNICATION: Per this written report. Preliminary report signed by Gerardo Benedict MD on 03/28/2025 3:03 AM By electronically signing this report, I, the attending physician, attest that I have personally reviewed the images/data for the above examination(s) and agree with the final edited report. Drafted by Gerardo Benedict MD on 03/28/2025 2:56 AM Final report signed by Cole Carballo MD on 03/28/2025 3:43 AM HOSPITAL PROBLEM LIST: Principal Problem: Hydronephrosis concurrent with and due to calculi of kidney and ureter Active Problems: Kidney stone ASSESSMENT: Meme Chavarria is a 64 y.o. female with PMH CP, NGB s/p SPT in 04/2024, recurrentUTI presenting with left ureteral stones, hydronephrosis, and left flank pain. CT imaging at OSH demonstrated 6 mm and 3 mm proximal mid left ureteral stones with upstream moderate left hydroureteronephrosis. Additional small non-obstructing stones in bilateral lower poles. A T7 compression fracture was also noted which ortho is planning to manage non-operatively. UA concerning for infection (obtained from SPT). She was taken to the OR for L Ureteral Stent placement on 03/28. She is recovering well postoperatively PLAN: - Continue SPT - Empiric abx per primary team, tailor based on cultures - Trend UOP and CR - Urology will continue to follow Barney Ramirez MD Urology PGY-2 Cosigned by Yahaira Leslie MD at 03/30/2025 2:38 PM EDT Associated attestation - Yahaira Leslie MD - 03/30/2025 2:38 PM EDT I saw and evaluated the patient. I discussed the case with the resident/fellow and agree with the findings and plan as documented. * Consults - Maria Guadalupe Goode - 03/29/2025 9:28 AM EDT Physical Therapy Consult Patient Name: Meme Chavarria Today's Date: 03/29/2025 Meme Chavarria was assessed for physical therapy needs 03/29/2025. Per chart, patient is a LTCresident and typically wheelchair bound. Typically uses a blair lift or slide board for transfers to chair. Patient is at baseline level of function and demonstrates no further physical therapy needsat this time. Patient will be appropriate to return to LTC facility at time of discharge. Physical therapy will sign off. Thank-you for the consult. Written by Maria Guadalupe Goode on 03/29/25 at 9:32 AM. * Progress Notes - Junior Baird APRN - 03/29/2025 9:[address] [facility] Medicine Progress Note (03/29/2025) I saw and evaluated the patient with the medical/WIND TURBINE DESIGN ENGINEER/PA student. I discussed the case with the medical/WIND TURBINE DESIGN ENGINEER/PA student and agree with the findings and plan as documented. I personally performed the Examand Medical Decision Making. ++Overnight/Subjective++ Patient seen and evaluated at bedside. Pt hemodynamically stable, afebrile, and on room air. Pt lying in bed, alert, oriented, and in no acute distress. Pt report pain is controlled. Pt denies any complaints this morning or acute events overnight. Patient reports left lower back pain. She states she is ready to return her nursing facility ([facility]). ++Review of Systems ++ Review of Systems Constitutional: Negative. HENT: Negative. Eyes: Negative. Cardiovascular: Negative for chest pain, dyspnea on exertion and leg swelling. Respiratory: Negative. Endocrine: Negative. Hematologic/Lymphatic: Negative. Skin: Negative. Musculoskeletal: Positive for myalgias. Gastrointestinal: Positive for constipation. Negative for abdominal pain, diarrhea, dysphagia, nausea and vomiting. Genitourinary: Suprapubic Catheter in place Neurological: Negative. Psychiatric/Behavioral: Negative. Patient reports back pain and no bowel movement since Friday. ++Objective ++ Temp: [36.3 ??C (97.4 ??F)-37 ??C (98.6 ??F)] 36.7 ??C (98.1 ??F) Heart Rate: [76-98] 91 Resp: [11-18] 17 BP: (95-138)/(50-92) 108/66 SpO2: [92 %-100 %] 94 % Body mass index is 21.79 kg/m??. Intake/Output Summary (Last 24 hours) at 03/29/2025 0905 Last data filed at 03/29/2025 0544 Gross per 24 hour Intake 1671.25 ml Output 2000 ml Net -328.75 ml Physical Exam Constitutional: General: She is awake. Appearance: Normal appearance. HENT: Head: Normocephalic. Eyes: General: Lids are normal. Right eye: No discharge. Left eye: No discharge. Cardiovascular: Rate and Rhythm: Normal rate and regular rhythm. Pulses: Dorsalis pedis pulses are 1+ on the right side and 1+ on the left side. Posterior tibial pulses are 1+ on the right side and 1+ on the left side. Pulmonary: Effort: Pulmonary effort is normal. Breath sounds: Normal breath sounds. Genitourinary: Comments: Suprapubic catheter in place with dressing clean, dry, and intact. Yellow/brown urine present. Musculoskeletal: Cervical back: Normal range of motion. Neurological: Mental Status: She is alert. Psychiatric: Attention and Perception: Attention normal. ++Recent Labs++ Lab Results Component Value Date WBC 5.04 03/29/2025 HGB 10.7 (L) 03/29/2025 HCT 35.2 03/29/2025 MCV 83 03/29/2025 PLT 172 03/29/2025 Lab Results Component Value Date BUN 12 03/29/2025 Lab Results Component Value Date CREATININE 0.30 (L) 03/29/2025 Lab Results Component Value Date NA 141 03/29/2025 K 3.8 03/29/2025 CL 110 (H) 03/29/2025 CO2 24 03/29/2025 ++Current Medications ++ cefTRIAXone, 2 g, Intravenous, q24h dantrolene, 50 mg, Oral, TID gabapentin, 400 mg, Oral, TID levETIRAcetam, 500 mg, Oral, BID levothyroxine, 200 mcg, Oral, q AM linaCLOtide, 145 mcg, Oral, Daily before breakfast mirabegron ER, 50 mg, Oral, Daily mupirocin, 1 Application, Each Nostril, BID phenazopyridine, 100 mg, Oral, TID with meals polyethylene glycol, 17 g, Oral, Daily prochlorperazine, 2.5 mg, Intravenous, Once sertraline, 200 mg, Oral, Daily sodium chloride, 10 mL, Intravenous, q12h tamsulosin, 0.4 mg, Oral, Daily with dinner tiZANidine, 4 mg, Oral, BID traZODone, 50 mg, Oral, Nightly sodium chloride, 75 mL/hr, Last Rate: 75 mL/hr (03/28/251999) PRN medications: diphenhydrAMINE-zinc acetate, HYDROmorphone, hydrOXYzine pamoate, ketorolac, melatonin, ondansetron ODT OR ondansetron OR ondansetron, oxyCODONE, Insert peripheral IV ANDSaline lock IV AND sodium chloride AND sodium chloride +++Assessment and Plan+++ Principal Problem: Hydronephrosis concurrent with and due to calculi of kidney and ureter Active Problems: Kidney stone Meme Chavarria is a 64 y.o. with past medical history of CP (wheelchair at baseline), NGB s/pSPT in 04/2024, recurrent UTI presenting with left ureteral stones, hydronephrosis, and left flank pain. CT scan was done at the outside hospital which demonstrated a 6 mm and a 3 mm proximal mid left ureteral stone. Hydronephrosis was also seen upstream of the obstruction. Small stones were also seen in bilateral lower poles of the kidney. Surgery to remove stones, and stint placed on 03/28. 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 Left Ureteral Stone UTI Left Flank Pain Hydronephrosis - Recommend Tylenol, Pyridium, +/- Dilaudid and Oxycodone PRN - Suprapubic Jacobs replaced with this visit. - Started on ceftriaxone, previous urine cultures do not show resistance to ceftriaxone. - Follow urine cultures - Continue IV fluids - Continue Flomax - Multimodal pain control - Cystoscopy with left retrograde pyelogram cystolitholapxy performed - Left 4.8 Fr ureteral stent placement performed - Stones were evaluated in Left Kidney as well as several stones were seen in bladder. - Hypothyroidism - Continue synthroid Cerebral Palsy - Dantrolene continue - Continue gabapentin - Continue zanaflex Neurogenic Bladder - Suprapubic catheter in place upon arrival - Continue myrbetriq Compression Fracture of T7 vertebra -Ortho consulted - Prior T11-12 vertebroplasty (OSH) - Prior T2-T3 laminectomies (Dr. Gtz 03/2023) for T3 burst fx/spinal epidural abscess - Dependent on wheelchair at baseline - Follow up neurosurgery in 6/8 weeks - No twisting, bending, or lifting things greater than 10lbs Nausea/Vomiting - Continue zofran - Continue compazine +++Chronic/Stable Medical Conditions+++ Chronic: Constipation- continue linzess, miralax Sleep disturbance - continue trazadone F- PO E- Trend/replete prn N- Easy to chew diet Dispo- intermodal dispatcher care Code Status: DNR - Ok to intubate Migdalia PRITCHETT Secure chat via Epic preferred 03/29/2025 * Progress Notes - Vivian Gil - 03/29/2025 9:03 AM EDT Occupational Therapy Evaluation Patient Name: Meme Chavarria Today's Date: 03/29/2025 OT Discharge Recommendations: retirement facility Equipment Recommended: Patient owns appropriate equipment History Meme Chavarria is 64 y.o. female admitted 03/28/2025 for work-up of Hydronephrosis concurrent with and due to calculi of kidney and ureter. Problem List Active Hospital Problems Diagnosis Date Noted Hydronephrosis concurrent with and due to calculi of kidney and ureter 03/28/2025 Kidney stone 03/27/2025 Procedures 03/28/2025 Procedure(s): CYSTOSCOPY, WITH URETERAL STENT INSERTION Past Medical History Patient has a past medical history of Acute respiratory failure with hypoxia, Atrophic vaginitis (03/19/2022), Cerebral palsy, Cerebral palsy, unspecified (CMS/HCC), Constipation, unspecified, Contracture of muscle, unspecified site, Depression, unspecified, Electrolyte abnormality (03/16/2023), Encounter for other preprocedural examination, Gastro-esophageal reflux disease without esophagitis, GERD (gastroesophageal reflux disease), Human metapneumovirus (hMPV) pneumonia, Hyperlipidemia, unspecified, Hypotension, Hypotension, unspecified, Hypothyroidism, Hypothyroidism, Incomplete emptying of bladder (03/19/2022), Muscle wasting and atrophy, not elsewhere classified, multiple sites, Neuromuscular dysfunction of bladder, unspecified, Other muscle spasm, Paraplegia, unspecified (CMS/HCC), Personal history of (healed) traumatic fracture, Personal history of other diseases of urinary system, Personal history of urinary (tract) infections, Polyneuropathy, unspecified, Postmenopausal atrophic vaginitis, Recurrent UTI (03/19/2022), Seizure (CMS/HCC), Unspecified convulsions (CMS/HCC), Vitamin B12 deficiency anemia, unspecified, and Vitamin D deficiency, unspecified. Past Surgical History Patient has a past surgical history that includes Submandibular gland excision w/ parotid duct ligation (N/A); Appendectomy (N/A); Tubal ligation (N/A); Sacral nerve stimulator placement (N/A); Anklesurgery (N/A); ir pain pump implant/ replacement; ir pain pump removal; Back surgery; and Suprapubic catheter. Precautions None Subjective I've lived in the half-way for a couple of years Participants in Care Family/Caregiver Present: No Presentation Oxygen Therapy: None (Room air) Lines and Tubes: Intravenous access Pre-Session: Side lying right, Head of bed elevated, Lines intact Post-Session: Side lying right, Head of bed elevated, Lines intact, RN notified, Call light in reach Post-Session Comments: Pt left as found but in better position for eating Home Living/Set-up Home Type: retirement facility Home Adaptive Equipment: Wheelchair-power, shower chair, Hospital bed, Other (Comment) (slide boardand lift) Prior Level of Function Receives Help From: Caregiver Level of Mobility: Wheelchair/Scooter Mobility Tyner: Assist with wheelchair propulsion History of Falls: No ADL Performance: Needs assistance Bathing: Needs assist Upper Body Dressing: Needs assist Lower Body Dressing: Needs assist Grooming: Needs assist Toileting: Needs assist Eating: Independent Home Management Skills: Unable to perform Patient/Family Goals Statement Pt stated she is at her baseline and wants to return to her NH Objective Pain Back pain; RN aware Delirium Screening RASS: Alert and calm Confusion Assessment Method-ICU (CAM-ICU/PCAM-ICU) Feature 3: Altered Level of Consciousness: Negative Cognition Overall Cognitive Status: Within Functional Limits Arousal/Alertness: Appropriate responses to stimuli Mood/Behavior: Alert Orientation Level: Oriented X4 Single Step Commands: Consistently Method of Communication: Verbal Bed Mobility Bed Mobility Exam: Rolling/Turning Level of Tyner: Maximum assist (25% patient effort) Physical/Nonphysical Assist: Additional assist utilized for safety Bed Mobility Exam: Scooting/Bridging Level of Tyner: Dependent Physical/Nonphysical Assist: Additional assist utilized for safety Transfers Pt is a blair lift or utilizes a sliding board with assist for transfers. Self-Care Interventions Feeding Feeding Level of Assistance: Setup, Standby assist Feeding Where Assessed: Bed level Grooming Grooming Level of Assistance: Setup, Minimum assistance Grooming Where Assessed: Bed level OT sat pt up for feeding and grooming. Standardized Assessments [facility] 6-Click Daily Activities Help from Other: Don/Doff Regular Lower Body Clothings: Total Help From Other: Bathing: Total Help From Other: Toileting: Total Help From Other: Don/Doff Upper Body Clothings: A lot Help From Other: Grooming: A lot Help From Other: Eating Meals: [facility] 6 Click - Daily Activities Score: 10 Assessment Initial evaluation only. No needs identified. Pt is at baseline status. OT Findings: Impaired IADL performance, Impaired ADL performance, Impaired functional mobility, Impaired postural/trunk control, Impaired balance, Impaired fine motor control/coordination, Decreased gross motor control/coordination, Impaired motor planning, Impaired muscle tone Barriers to Discharge: Comorbidities Eval Complexity Occupational Profile: Brief history including review of medical/therapy records relating to presenting problem Performance Deficits: Activities of daily living (ADLs), Instrumental activities of daily living (IADLs), Personal, Physical, Habits, Routines Clinical Decision Making: Low Overall Eval complexity: Low OT Recommendations Discharge Destination: retirement facility Discharge Equipment: Patient owns appropriate equipment Plan Patient no longer demonstrates need for inpatient occupational therapy services. Patient to be discharged from occupational therapy. Written by Vivian Gil on 03/29/25 at 9:06 AM. * Care Plan - America Patel - 03/29/2025 12:20 AM EDT Problem: Adult Inpatient Plan of Care Goal: Plan of Care Review Outcome: Ongoing, Progressing Flowsheets (Taken 03/29/2025 0016) Progress: improving Plan of Care Reviewed With: patient Goal: Patient-Specific Goal (Individualized) Outcome: Ongoing, Progressing Flowsheets (Taken 03/28/20251999) Patient/Family-Specific Goals (Include Timeframe): pt. will remain free of harm during shift. Individualized Care Needs: safety Anxieties, Fears or Concerns: none stated Goal: Absence of Hospital-Acquired Illness or Injury Outcome: Ongoing, Progressing Intervention: Identify and Manage Fall Risk Flowsheets (Taken 03/29/202515) Safety Promotion/Fall Prevention: fall prevention program maintained clutter-free environment maintained safety round/check completed Intervention: Prevent Skin Injury Flowsheets (Taken 03/29/202515) Body Position: turned Intervention: Prevent and Manage VTE (Venous Thromboembolism) Risk Flowsheets (Taken 03/29/202515) VTE Prevention/Management: bilateral lower extremity SCDs (sequential compression devices) on Intervention: Prevent Infection Flowsheets (Taken 03/29/202515) Infection Prevention: hand hygiene promoted environmental surveillance performed Goal: Optimal Comfort and Wellbeing Outcome: Ongoing, Progressing Intervention: Monitor Pain and Promote Comfort Flowsheets (Taken 03/28/20252118) Pain Management Interventions: position adjusted quiet environment facilitated rest Intervention: Provide Person-Centered Care Flowsheets (Taken 03/29/202515) Trust Relationship/Rapport: care explained questions encouraged questions answered Goal: Readiness for Transition of Care Outcome: Ongoing, Progressing Intervention: Mutually Develop Transition Plan Flowsheets (Taken 03/29/202515) Current Outpatient/Agency/Support Group: [facility] facility Problem: Skin Injury Risk Increased Goal: Skin Health and Integrity Outcome: Ongoing, Progressing Intervention: Optimize Skin Protection Flowsheets (Taken 03/29/202515) Pressure Reduction Techniques: heels elevated off bed Head of Bed (HOB) Positioning: HOB elevated Intervention: Promote and Optimize Oral Intake Flowsheets (Taken 03/29/202515) Nutrition Interventions: food preferences provided Problem: Fall Injury Risk Goal: Absence of Fall and Fall-Related Injury Outcome: Ongoing, Progressing Intervention: Identify and Manage Contributors Flowsheets (Taken 03/29/202515) Medication Review/Management: medications reviewed Intervention: Promote Injury-Free Environment Flowsheets (Taken 03/29/202515) Safety Promotion/Fall Prevention: fall prevention program maintained clutter-free environment maintained safety round/check completed Problem: Infection Goal: Absence of Infection Signs and Symptoms Outcome: Ongoing, Progressing Intervention: Prevent or Manage Infection Flowsheets (Taken 03/29/202515) Infection Management: aseptic technique maintained Fever Reduction/Comfort Measures: lightweight clothing Problem: Surgery Nonspecified Goal: Absence of Bleeding Outcome: Ongoing, Progressing Intervention: Monitor and Manage Bleeding Flowsheets (Taken 03/29/202515) Bleeding Management: other (see comments) Goal: Effective Bowel Elimination Outcome: Ongoing, Progressing Intervention: Enhance Bowel Motility and Elimination Flowsheets (Taken 03/29/2025 001) Bowel Elimination Management: toileting offered Bowel Motility Enhancement: fluid intake encouraged Goal: Fluid and Electrolyte Balance Outcome: Ongoing, Progressing Intervention: Monitor and Manage Fluid and Electrolyte Balance Flowsheets (Taken 03/29/2025 001) Fluid/Electrolyte Management: fluids provided Goal: Absence of Infection Signs and Symptoms Outcome: Ongoing, Progressing Goal: Anesthesia/Sedation Recovery Outcome: Ongoing, Progressing Intervention: Optimize Anesthesia Recovery Flowsheets (Taken 03/29/2025 001) Safety Promotion/Fall Prevention: fall prevention program maintained clutter-free environment maintained safety round/check completed Goal: Optimal Pain Control and Function Outcome: Ongoing, Progressing Intervention: Prevent or Manage Pain Flowsheets (Taken 03/28/20252118) Pain Management Interventions: position adjusted quiet environment facilitated rest Goal: Nausea and Vomiting Relief Outcome: Ongoing, Progressing Intervention: Prevent or Manage Nausea and Vomiting Flowsheets (Taken 03/29/202518) Nausea/Vomiting Interventions: sips of clear liquids given Goal: Effective Urinary Elimination Outcome: Ongoing, Progressing Intervention: Monitor and Manage Urinary Retention Flowsheets (Taken 03/29/202518) Urinary Elimination Promotion: (suprapubic cath in place) catheter patency maintained other (see comments) Goal: Effective Oxygenation and Ventilation Outcome: Ongoing, Progressing Intervention: Optimize Oxygenation and Ventilation Flowsheets (Taken 03/29/202518) Head of Bed (HOB) Positioning: HOB elevated * Care Plan - Natali Steven RN - 03/28/2025 8:25 PM EDT Problem: Adult Inpatient Plan of Care Goal: Absence of Hospital-Acquired Illness or Injury Outcome: Ongoing, Progressing Intervention: Identify and Manage Fall Risk Flowsheets (Taken 03/28/20252018) Safety Promotion/Fall Prevention: lighting adjusted room organization consistent safety round/check completed Intervention: Prevent Skin Injury Flowsheets (Taken 03/28/20252018) Body Position: turned legs elevated lower extremity elevated education provided Intervention: Prevent and Manage VTE (Venous Thromboembolism) Risk Flowsheets (Taken 03/28/20252018) VTE Prevention/Management: bilateral SCDs (sequential compression devices) on Intervention: Prevent Infection Flowsheets (Taken 03/28/20252018) Infection Prevention: hand hygiene promoted rest/sleep promoted Goal: Optimal Comfort and Wellbeing Outcome: Ongoing, Progressing Intervention: Monitor Pain and Promote Comfort Flowsheets (Taken 03/28/20252018) Pain Management Interventions: care clustered emotional support relaxation techniques promoted Intervention: Provide Person-Centered Care Flowsheets (Taken 03/28/20252018) Trust Relationship/Rapport: care explained emotional support provided choices provided questions encouraged Goal: Readiness for Transition of Care Outcome: Ongoing, Progressing Intervention: Mutually Develop Transition Plan Flowsheets (Taken 03/28/20252018) Current Outpatient/Agency/Support Group: [facility] facility Patient/Family Anticipates Transition to: long-term care facility Problem: Infection Goal: Absence of Infection Signs and Symptoms Outcome: Ongoing, Progressing Intervention: Prevent or Manage Infection Flowsheets (Taken 03/28/20252018) Fever Reduction/Comfort Measures: fluid intake increased * Progress Notes - Naresh Barros RN - 03/28/2025 2:38 PM EDT Case Management Adult Initial Progress Note Meme Chavarria 64 y.o. female CSN: [id number] Admission: 03/28/2025 12:22 AM Primary Problem: Hydronephrosis concurrent with and due to calculi of kidney and ureter Event Executive reviewed chart and spoke with patient to complete this Initial Case Management Assessment. PCP: Luis Henderson MD Emergency Contact: Extended Emergency Contact Information Primary Emergency Contact: Germán Chavarria Mobile Relation: Spouse Air Crew Member needed? No Secondary Emergency Contact: Cory Ojeda Mobile Relation: Daughter Air Crew Member needed? No Insurance: Primary Visit Coverage Payer Plan Sponsor Code Group Number Group Name MEDICARE MEDICARE A & B Primary Visit Coverage Subscriber Subscriber ID Subscriber Name Subscriber SSN Subscriber Address [id number] MEME CHAVARRIA [id number] [place] [address] Secondary Visit Coverage Payer Plan Sponsor Code Group Number Group Name MEDICAID-[employer] [place] MEDICAID TRADITIONAL Secondary Visit Coverage Subscriber Subscriber ID Subscriber Name Subscriber SSN Subscriber Address [id number] MEME MONROE [id number] [facility] [address] [place] [address] Patient information: Primary Caregiver: Self Support System: Immediate family Daily Living Activities: Functional Status: Independent Living Arrangements: Spouse/Significant other Type of Residence: Private residence [facility] [address] [place] [facility] [address] Current DME: Income Information: Housing Circumstances-Z Codes: Patient Referred to: Anticipated Discharge Date: tba Patient's Discharge Goal: Assistance Available at Discharge: Discharge Transport: s/o, family Follow Up Transport: Home Health / Home Infusion / Outpatient Dialysis Services: Living Will/Advance Directive/Power of Cloth Layer /Guardian: Additional Comments: Naresh Barros RN * Significant Event - Junior Baird APRN - 03/28/2025 1:33 PM EDT Overnight Event Note Patient was admitted early this morning and taken to the OR for Left uretal stent placement which was successful. Meme Chavarria is a 64 y.o. with past medical history of CP (wheelchair at baseline), NGB s/pSPT in 04/2024, recurrent UTI presenting with left ureteral stones, hydronephrosis, and left flank pain. CT scan was done at the outside hospital which demonstrated a 6 mm and a 3 mm proximal mid left ureteral stone. Hydronephrosis was also seen upstream of the obstruction. Small stones were also seen in bilateral lower poles of the kidney. I evaluated the patient at bedside. Patient is complaining of pain in her left side, but she just received pain medication. On exam, she is not in distress, has good air entry, normal S1S2, no murmurs, soft abdomen, +BS, no tenderness, no lower limbs edema. Neurology exam: he is AO*3 and following commands. She was updated on her plan of care. She will be leaving the PACU soon and going to an acute care floor. Left ureteral stones (Removed via OR) Hydronephrosis Left flank pain Urinary tract infection - Suprapubic Jacobs replaced with this visit. - Cystoscopy with left retrograde pyelogram cystolitholapxy performed - Left 4.8 Fr ureteral stent placement performed - Stones were removed from left kidney as well as several bladder stones. - Patient tolerated procedure without difficulty - Started on ceftriaxone, previous urine cultures do not show resistance to ceftriaxone - Repeat urine culture in progress - Nothing by mouth for anticipated urology procedure - IV fluids - stones were sent for analysis - Can resume Flomax, Pyridium PRN use - Multimodal pain control Acute T7 compression fracture Severe back pain - Ortho spine consulted - No bending/twisting/lifting >10 lbs - Anticipate non-operative management - Referral ordered per spine - PT/OT Chronic medical problems Hypothyroidism - Resume Synthroid Chronic pain - On multimodal pain control Neuromuscular dysfunction of bladder OAB - Patient has hx of neurogenic bladder and has suprapubic catheter - Exchange of suprapubic catheter this visit - On Myrbetriq Cerebral palsy - At baseline * Anesthesia PACU Signout - Luis Fernando Shah MD - 03/28/2025 12:40 PM EDT Patient: Meme Chavarria Anesthesia Type: general Vitals Value Taken Time BP 113/67 03/28/25 12:30 Temp 36.4 ??C (97.6 ??F) 03/28/25 12:00 Pulse 85 03/28/25 12:39 Resp 11 03/28/25 12:39 SpO2 94 % 03/28/25 12:39 Vitals shown include unfiled device data. Anesthesia PACU Signout Patient location during evaluation: PACU Patient participation: complete - patient participated Level of consciousness: baseline and awake Pain management: adequate (pain score 0-3) Airway patency: natural airway Hydration status: acceptable PONV: none Cardiovascular status: acceptable and hemodynamically stable Respiratory status: acceptable, spontaneous ventilation, unassisted, nonlabored ventilation and room air Discharge Disposition: admit to inpatient unit Cosigned by Elías Rodriguez MD at 03/28/2025 4:49 PM EDT Associated attestation - Elías Rodriguez MD - 03/28/2025 4:49 PM EDT I saw and evaluated the patient with the resident/fellow. I discussed the case with the resident/fellow and agree with the findings and plan as documented. * Op Note - Yahaira Leslie MD - 03/28/2025 11:34 AM EDT Date of Surgery: 03/28/25 Procedure Performed: Cystoscopy with left retrograde pyelogram Cystolitholapaxy left 4.8 Fr by 22-30 cm ureteral stent placement Preoperative Diagnosis: left ureteral stone, U TI Postoperative Diagnosis: Same plus bladder stones Surgeon: Yahaira Leslie MD Lead Level Designer Surgeon: Barney Ramirez MD Intraoperative Findings: Intraoperative fluoroscopy demonstrated moderate hydro and was used to confirm proper placement of the ureteral stent. Other findings include multiple bladder stones Indications: Meme Chavarrai is a 64 y.o. female with with PMH CP, NGB s/p SPT in 04/2024, recurrent UTI presenting with left ureteral stones, hydronephrosis, and left flank pain. . Anesthesia: General Complications: None Drains: 4.8 Fr by 22-30 cm stent Specimens: Urine for culture Bladder stones for analysis EBL: Min. Procedure in Detail: After informed consent was obtained, the patient was brought into the surgical suite. The patient was placed in the dorsal lithotomy position. General anesthesia was administered, SCDs were placed onthe patient and preoperative antibiotics were administered prior to the start of the case. A 23 Fr rigid cystoscope was introduced into the patient's urethral meatus and advanced into the urinary bladder. The bladder was examined and showed multiple bladder stones The left ureteral orifice was cannulated with a Sensor wire and a dual lumen. Contrast was injectedin a retrograde fashion showing moderate hydro. Dual lumen was removed. We attempted to place a 6 Fr stent however it would not advance past the stone. A 4.8 Fr by 22-30 cm ureteral stent was advanced to the kidney. Proximal curl was confirmed with fluoroscopy. Wire was removed and distal curl was confirmed in the bladder. We then turned our attention to the bladder stones. Most were evacuated through the cystoscope sheath, but there were several that were broken manually with a stent grasper and removed. The patient tolerated the procedure well and was awakened from anesthesia without difficulty. Postoperative Plan: Follow cultures Plan for definitive stone management 2-4 weeks Yahaira Leslie MD * Significant Event - Francisco Javier Rodriges MD - 03/28/2025 10:10 AM EDT Orthopedic Surgery Spine Interim Summary: Patient is currently being evaluated for left ureteral stent placement, she has had worsening left flank plain consistent with previously described urological pathology. Radiographs and CT was obtained at the outside hospital demonstrate multiple compression fractures. She follow up for neurosurgery for previousT2, 3 laminectomies for T3 burst with a spinal epidural abscess back in 2022. Paradoxically she has had marked improvement of her lower extremity function with 3/5 strength in L2 throughS2 distribution, significant improvement from previous documentation in neurosurgery clinic with 0/5 strength distal to L4. Patient has multiple compression fracture would best followed with the treating Service. The patient may follow up outpatient with neurosurgery clinic in 6-8 weeks. No acute intervention this hospitalization. Follow up Neurosurgery 6-8 weeks. Will bending twisting or lifting greater than 10 lb, patient is dependent on a wheelchair at baseline, so anticipate no changes to her mobility as she will not be participating in any aggressive activities. Multimodal pain control WICHO Rodriges MD Orthopaedic Surgery and Sports Medicine - PGY 3 Pager [phone] Ortho Trauma Pager: [phone] Ortho Recon/Spine/ Foot and Ankle Pager: [phone] * Significant Event - Barney Ramirez MD - 03/28/2025 7:33 AM EDT Meme Chavarria will proceed to the OR today 03/28/25 for Left Ureteral Stent Placement - No changes in signs, symptoms, or health status from most recent Progress/Consult Note - Patient is marked as needed, consented, and has remained NPO since midnight. Consent is located in patient chart. - The risks, benefits, and alternatives were reviewed. Risks discussed include but not limited to bleeding, infection, damage to surrounding structures, need for additional procedures, wound complications, and risks inherent to anesthesia such as stroke, heart attack, and/or . - Patient and/or patient contact providing consent voiced understanding and agreed to proceed to the OR. Barney Ramirez MD Urology, PGY-2 * Assessment & Plan Note - Luis Alfredo Hodges MD - 03/28/2025 5:46 AM EDT Associated Problem(s): Hydronephrosis concurrent with and due to calculi of kidney and ureter Meme Chavarria is a 64 y.o. female with PMH CP, NGB s/p SPT in 04/2024, recurrent UTI presenting with left ureteral stones, hypothyroidism, chronic pain, muscle spasms, depression, hyperlipidemia, GERD, hydronephrosis, and left flank pain. CT imaging at OSH yesterday demonstrated 6 mm and 3 mm proximal mid left ureteral stones with upstream moderate left hydroureteronephrosis. Additional small non-obstructing stones in bilateral lower poles. A T7 compression fracture was also noted which ortho is planning to manage non- operatively. UA obtained from suprapubic catheter after replacement concerning for infection. Left ureteral stones Hydronephrosis Left flank pain Urinary tract infection Suprapubic Jacobs replaced Started on ceftriaxone, previous urine cultures do not show resistance to ceftriaxone Repeat urine culture in progress Nothing by mouth for anticipated urology procedure IV fluids Flomax Multimodal pain control Acute T7 compression fracture Severe back pain Ortho spine consulted No bending/twisting/lifting >10 lbs Anticipate non-operative management PT/OT Chronic medical problems Hypothyroidism Resume Synthroid Chronic pain On multimodal pain control Neuromuscular dysfunction of bladder New suprapubic catheter Cerebral palsy At baseline * H&P - Luis Alfredo Hodges MD - 03/28/2025 5:21 AM EDTAssociated Order(s): Consult to [facility] Images from the original note were not included. Consult to [facility] Consult performed by: Luis Alfredo Hodges MD Consult ordered by: Clay Read DO Subjective Chief complaint Back pain History Of Present Illness Meme Chavarria is a 64 y.o. female with PMH CP, NGB s/p SPT in 04/2024, recurrent UTI presenting with left ureteral stones, hydronephrosis, and left flank pain. A CT scan was done at the outside hospital which demonstrated a 6 mm and a 3 mm proximal mid left ureteral stone. Hydronephrosis wasalso seen upstream of the obstruction. Small stones were also seen in bilateral lower poles of the kidney. In addition the CT scan also showed a T7 compression fracture for which ortho spine was consulted by the ER physician. She also states that 4 days ago a back xray was taken at the [facility] and she was informed that she had a new fracture in her back and has been treated with ibuprofen for this.At baseline, she utilizes a wheelchair at all times. She has a past history significant for prior T3 burst fracture that was complicated by T3 osteomyelitis with spinal epidural abscess at the time of presentation for which she underwent T2-[address] Gtz in March of 2023. She mention that since that time she has been unable to ambulate independently and has used a wheelchair forall ADLs. Initial workup in the ER showed a UTI. The urine sample was taken from the suprapubic catheter after exchange Patient has already received Rocephin at the outside hospital. Her white cell count remains normal and she is afebrile. Urology team has evaluated the patient in the ER and plans to possibly place a left ureteral stent this morning. She was last seen in Urology clinic in 09/2024. She was prescribed Myrbetriq at that time for bladder spasms. Her catheter is flushed BID at her facility and the SPT is exchanged monthly. Next visit is scheduled with Maria Guadalupe Madrigal on 04/01. Patient is counseled at the bedside about code status and wishes to be DNR. Patient is aware that she is planned to undergo surgery. She remains pleasant. Medical/Surgical/Social/Family History Past Medical History[1] Surgical History[2] Social History[3] Family History[4] Travel History Relevant International Travel History: Travel Screening Question Response Have you been in contact with someone who was sick? No / Unsure Do you have any of the following new or worsening symptoms? Abdominal pain Have you traveled internationally or domestically in the last month? No Travel History Travel since 02/26/25 No documented travel since 02/26/25 Relevant Domestic Travel History: None Immunizations VACCINE / DOSE DATE DATE DATE DATE DATE DATE Flu 06/26/2015 06/13/2016 06/02/2017 07/06/2019 07/24/2020 07/03/2021 Tetanus 11/14/1996 02/26/2012 Pneumovax Shingles Allergies Methenamine, Methotrexate, Metoclopramide, Morphine, Reglan [metoclopramide], Sulfa drugs, and Sulfacetamide Outpatient medications in system Home Medications[5] Medications ordered for hospitalization Current Scheduled Medications[6] Current Continuous Medications[7] Current PRN Medications[8] Objective Review of Systems Constitutional: Positive for activity change, appetite change, chills and fatigue. Gastrointestinal: Positive for abdominal pain. Genitourinary: Positive for flank pain. Musculoskeletal: Positive for back pain. All other systems reviewed and are negative. Physical Exam Constitutional: Appearance: Normal appearance. She is normal weight. HENT: Head: Normocephalic and atraumatic. Right Ear: External ear normal. Left Ear: External ear normal. Nose: Nose normal. Mouth/Throat: Mouth: Mucous membranes are moist. Pharynx: Oropharynx is clear. Eyes: Extraocular Movements: Extraocular movements intact. Pupils: Pupils are equal, round, and reactive to light. Cardiovascular: Rate and Rhythm: Normal rate and regular rhythm. Pulmonary: Effort: Pulmonary effort is normal. Abdominal: General: Abdomen is flat. Palpations: Abdomen is soft. Tenderness: There is no abdominal tenderness. There is left CVA tenderness. There is no guarding. Musculoskeletal: Cervical back: Normal range of motion. Skin: General: Skin is warm. Capillary Refill: Capillary refill takes less than 2 seconds. Neurological: Mental Status: She is alert and oriented to person, place, and time. Mental status is at baseline. Psychiatric: Mood and Affect: Mood normal. Behavior: Behavior normal. Last Recorded Vitals Blood pressure 116/74, pulse 72, temperature 36.8 ??C (98.2 ??F), resp. rate 18, SpO2 93%. Results Review {Vanishing Link Review Results :[id number] I have reviewed the latest lab and imaging results. I have personally reviewed the imaging below: CT A/P wo contrast 03/27/25 - 6 mm and 3 mm proximal-mid left ureteral stones with upstream moderate left hydroureteronephrosis. - Additional small non-obstructing stones in bilateral renal lower poles - SPT in appropriate position within decompressed bladder Assessment & Plan Hydronephrosis concurrent with and due to calculi of kidney and ureter Meme Chavarria is a 64 y.o. female with PMH CP, NGB s/p SPT in 04/2024, recurrent UTI presenting with left ureteral stones, hypothyroidism, chronic pain, muscle spasms, depression, hyperlipidemia, GERD, hydronephrosis, and left flank pain. CT imaging at OSH yesterday demonstrated 6 mm and 3 mm proximal mid left ureteral stones with upstream moderate left hydroureteronephrosis. Additional small non-obstructing stones in bilateral lower poles. A T7 compression fracture was also noted which ortho is planning to manage non- operatively. UA obtained from suprapubic catheter after replacement concerning for infection. Left ureteral stones Hydronephrosis Left flank pain Urinary tract infection Suprapubic Jacobs replaced Started on ceftriaxone, previous urine cultures do not show resistance to ceftriaxone Repeat urine culture in progress Nothing by mouth for anticipated urology procedure IV fluids Flomax Multimodal pain control Acute T7 compression fracture Severe back pain Ortho spine consulted No bending/twisting/lifting >10 lbs Anticipate non-operative management PT/OT Chronic medical problems Hypothyroidism Resume Synthroid Chronic pain On multimodal pain control Neuromuscular dysfunction of bladder New suprapubic catheter Cerebral palsy At baseline Venous thromboembolism prophylaxis Patient on heparin (porcine) Diet Dietary Orders (From admission, onward) Start Ordered 03/28/25 1040 NPO diet Diet effective now Question Answer Comment NPO Except: sips with meds Reason: Operating room 03/28/25 0114 Code Status DNR - Ok to intubate Dr. Luis Alfredo Hodges dental hygiene professor Hospitalist Medicine This dictation was prepared using voice recognition software. As a result, errors may occur. When identified, these errors have been corrected. While every attempt is made to correct errors during dictation, errors may still exist. All images were reviewed. All changes discussed with consultants. Outside records reviewed as applicable. Note to patient: The Cures Act makes medical notes like these available to patients inthe interest of transparency. However, be advised this is a medical document. It is intended as peer to peer communication. It is written in medical language and may contain abbreviations or verbiagethat are unfamiliar. It may appear blunt or direct. Medical documents are intended to carry relevant information, facts as evident, and the clinical opinion of the practitioner. [1] Past Medical History: Diagnosis Date Acute respiratory failure with hypoxia Atrophic vaginitis 03/19/2022 Cerebral palsy Cerebral palsy, unspecified ([facility] Constipation, unspecified Contracture of muscle, unspecified site Depression, unspecified Electrolyte abnormality 03/16/2023 Hyponatremia Hypokalemia Hypocalcemia Hypomagnesemia - Replete, monitor, reg diet Encounter for other preprocedural examination Pre-op exam Gastro-esophageal reflux disease without esophagitis GERD (gastroesophageal reflux disease) Human metapneumovirus (hMPV) pneumonia Hyperlipidemia, unspecified Hypotension Hypotension, unspecified Hypothyroidism Hypothyroidism Incomplete emptying of bladder 03/19/2022 Muscle wasting and atrophy, not elsewhere classified, multiple sites Neuromuscular dysfunction of bladder, unspecified Other muscle spasm Paraplegia, unspecified ([facility]) Personal history of (healed) traumatic fracture History of fracture of ankle Personal history of other diseases of urinary system History of gross hematuria Personal history of urinary (tract) infections Polyneuropathy, unspecified Postmenopausal atrophic vaginitis Recurrent UTI 03/19/2022 Rocephin 7/8 Seizure ([facility]) Unspecified convulsions ([facility]) Vitamin B12 deficiency anemia, unspecified Vitamin D deficiency, unspecified [2] Past Surgical History: Procedure Laterality Date ANKLE SURGERY N/A Ankle Surgery from [facility] APPENDECTOMY N/A Appendectomy from [facility] BACK SURGERY IR PAIN PUMP IMPLANT/ REPLACEMENT IR PAIN PUMP REMOVAL SACRAL NERVE STIMULATOR PLACEMENT N/A Install Sacral Nerve Neurostimulator By Incision from [facility] SUBMANDIBULAR GLAND EXCISION W/ PAROTID DUCT LIGATION N/A Thyroid Surgery Sub-Total Thyroidectomy from [facility] SUPRAPUBIC CATHETER TUBAL LIGATION N/A Tubal Ligation from [facility] [3] Social History Tobacco Use Smoking status: Never Smokeless tobacco: Never Vaping Use Vaping status: Never Used Substance Use Topics Alcohol use: Never Comment: Alcoholic Drinks/day: Never Drank Alcohol Drug use: Never [4] Family History Problem Relation Name Age of Onset Hypertension Father Heart attack Father Pancreatic cancer Mother [5] (Not in a hospital admission) [6] [Held by provider] heparin (porcine), 5,000 Units, Subcutaneous, q8h ROWAN phenazopyridine, 100 mg, Oral, TID with meals polyethylene glycol, 17 g, Oral, Daily sodium chloride, 10 mL, Intravenous, q12h tamsulosin, 0.4 mg, Oral, Daily with dinner [7] sodium chloride, 75 mL/hr [8] PRN medications: HYDROmorphone, ketorolac, melatonin, ondansetron ODT OR ondansetron ORondansetron, oxyCODONE, Insert peripheral IV AND Saline lock IV AND sodium chloride ANDsodium chloride * Consults - Nelson Hernandez MD - 03/28/2025 1:55 AM EDTAssociated Order(s): Consult to Urology Consult to Urology Consult performed by: Nelson Hernandez MD Consult ordered by: Clay Read DO [facility] Urology Consult Note 03/28/25 Service Requesting Consultation: [facility] ED CC: left ureteral stones, hydronephrosis HPI: Meme Chavarria is a 64 y.o. female with PMH CP, NGB s/p SPT in 04/2024, recurrent UTI presenting with left ureteral stones, hydronephrosis, and left flank pain. She presented to [facility] yesterday afternoon with left flank pain. She states that she began feeling pain on her left side and in the middle of her back about 1 week ago but the pain becameso severe today that she was sent to OSH. She also states that 4 days ago a back xray was taken at the [facility] and she was informed that she had a new fracture in her back and has been treated with ibuprofen for this. CT imaging at OSH yesterday demonstrated left ureteral stones with associated hydronephrosis. A T7 compression fracture was also noted. UA concerning for infection (obtained from SPT). She received a 1x dose IV Rocephin prior to transfer to [facility]. Upon arrival, patient is AF, HDS. WBC 6.86, HGB 12, Cr 0.41. UA and urine culture pending. OSH CT scan demonstrates 6 mm and 3 mm proximal mid left ureteral stones with upstream moderate left hydroureteronephrosis. Additional small non-obstructing stones in bilateral lower poles. She has received Di laudid, Toradol, Flomax in the ED. She has also received a 1 L LR bolus. She denies fever/chills, N/V. She has been eating and drinking normally prior to presentation to OSH. She states she will haveintermittent severe left sided flank pain that radiates to her abdomen. She was last seen in Urology clinic in 09/2024. She was prescribed Myrbetriq at that time for bladder spasms. Her catheter is flushed BID at her facility and the SPT is exchanged monthly. Next visit is scheduled with Maria Guadalupe Madrigal on 04/01. Past Medical History: reviewed Past Medical History[1] Past Surgical History: reviewed Surgical History[2] Family History: reviewed Family History[3] Social History: reviewed Social History[4] Outpatient Medications: Current Outpatient Medications Medication Instructions acetaminophen (TYLENOL) 1,000 mg, Oral, Every 6 hours scheduled ALBUTEROL SULFATE HFA IN 2 puffs, 4 times daily PRN ALPRAZolam (Xanax) 0.5 MG tablet No dose, route, or frequency recorded. Anoro Ellipta 62.5-25 MCG/INH aerosol powder Anti-Dandruff 1 % shampoo betamethasone dipropionate (Diprosone) 0.05 % lotion 1 Application, 2 times daily PRN bisacodyl (Dulcolax) 10 MG suppository Catheters misc Please exchange catheter at least monthly, more often if needed. Catheters misc Please change suprapubic catheter once monthly or more often as needed with 18 [place] latex catheter Please flush catheter at least twice per day with 50 mL normal saline with catheter tip syringe, more often if needed. May need to aspirate urine, then flush. Call [place] [facility] if issues cholecalciferol (VITAMIN D-3) 1,000 Units, Daily cyanocobalamin (VITAMIN B-12) 1,000 mcg, Every 30 days dantrolene (DANTRIUM) 50 mg, Oral, 3 times daily diclofenac (Voltaren) 1 % topical gel 1 Application, Transdermal, 4 times daily PRN, Apply as directed to areas of pain diphenhydrAMINE (Benadryl) 25 MG tablet Every 4 hours PRN doxycycline (Vibra-Tabs) 100 MG tablet No dose, route, or frequency recorded. doxycycline (Vibramycin) 100 MG capsule Take 1 capsule by mouth twice a day for 6 months as Suppressive/Consolidation therapy for your back infection. Doxycycline Hyclate 100 mg fluticasone (Flonase) 50 MCG/ACT nasal spray 2 sprays, Daily PRN gabapentin (NEURONTIN) 400 mg, 3 times daily HYDROcodone-acetaminophen ([place]) 5-325 MG tablet Take by mouth every 6 (six) hours. hydrocortisone 1 % cream lactulose (Chronulac) 10 GM/15ML oral solution Take 15 mL (10 g) by mouth if needed. levETIRAcetam (Keppra) 500 MG tablet Take 1/2 tab PO BID for two weeks then 1 tab PO BID levoFLOXacin (Levaquin) 250 MG tablet levothyroxine (SYNTHROID, LEVOXYL) 200 mcg, Daily before breakfast Linzess 72 MCG capsule capsule Take by mouth 1 (one) time each day before breakfast. Linzess 290 mcg, Daily before breakfast LORazepam (ATIVAN) 0.5 mg, Oral, 2 times daily PRN melatonin 3 MG tablet Take 1 tablet (3 mg) by mouth every night. meropenem (Merrem) injection methocarbamol (ROBAXIN) 1,000 mg, Oral, Every 6 hours scheduled midodrine (PROAMATINE) 5 mg, Oral, 2 times daily mirabegron ER (MYRBETRIQ) 50 mg, Oral, Daily Misc. Devices misc Please discontinue Ms. Monroe's jacobs catheter. Will resume CIC with the assistance of her per patient request. Thank you. Multiple Vitamin (multivitamin) capsule 1 capsule, Daily omeprazole (PRILOSEC) 40 mg, Daily oxyCODONE (Roxicodone) 5 MG immediate release tablet No dose, route, or frequency recorded. polyethylene glycol (Miralax) 17 GM/SCOOP powder Take 17 g by mouth 1 (one) time each day. potassium chloride CR (Klor-Con) 10 MEQ ER tablet 10 mEq, 2 times daily Prucalopride Succinate (MOTEGRITY) 2 mg, Daily sertraline (ZOLOFT) 200 mg, 2 times daily Stimulant Laxative 8.6-50 MG tablet tiZANidine (Zanaflex) 2 MG capsule Take 1 capsule (2 mg) by mouth 2 (two) times a day. traZODone (Desyrel) 50 MG tablet Take 1 tablet (50 mg) by mouth every night. ROS: 14 point review of systems was obtained and is negative except for as above in HPI. PHYSICAL EXAM: Temp: [36.7 ??C (98.1 ??F)] 36.7 ??C (98.1 ??F) Heart Rate: [82] 82 Resp: [18] 18 BP: (128)/(74) 128/74 SpO2: [94 %] 94 % GEN: NAD HEENT: NCAT, EOMI RESP: Equal bilateral chest rise, normal work of breathing CV: Appears well perfused ABD: Nondistended : mild L CVAT, SPT in place draining CYU MSK: Full ROM in BL UE NEURO: Alert and oriented PSYCH: Normal mood and affect LABS: Results from last 7 days Lab Units 03/28/25 0114 WBC 10*3/uL 6.86 HEMOGLOBIN g/dL 12.0 HEMATOCRIT % 38.0 PLATELETS 10*3/uL 202 Results from last 7 days Lab Units 03/28/25 0114 SODIUM mmol/L 141 POTASSIUM mmol/L 3.9 CHLORIDE mmol/L 107 CO2 mmol/L 25 BUN mg/dL 18 CREATININE mg/dL 0.41* EGFR mL/min/1.73m*2 108.7 GLUCOSE mg/dL 78 CALCIUM mg/dL 8.2* Imaging: I have personally reviewed the imaging below: CT A/P wo contrast 03/27/25 - 6 mm and 3 mm proximal-mid left ureteral stones with upstream moderate left hydroureteronephrosis. - Additional small non-obstructing stones in bilateral renal lower poles - SPT in appropriate position within decompressed bladder Hospital Problem List: Ureteral Stones Assessment: Meme Chavarria is a 64 y.o. female with PMH CP, NGB s/p SPT in 04/2024, recurrentUTI presenting with left ureteral stones, hydronephrosis, and left flank pain. CT imaging at OSH yesterday demonstrated 6 mm and 3 mm proximal mid left ureteral stones with upstream moderate left hydroureteronephrosis. Additional small non-obstructing stones in bilateral lower poles. A T7 compression fracture was also noted which ortho is planning to manage non- operatively. UA concerning for infection (obtained from SPT). She received a 1x dose IV Rocephin prior to transfer to [facility]. Upon arrival, patient is AF, HDS. WBC 6.86, HGB 12, Cr 0.41. UA and urine culture pending. She has received Dilaudid, Toradol, Flomax in the ED. She has also received a 1 L LR bolus. She denies fever/chills, N/V.She is eating and drinking as normal. She states she will have intermittent severe left sided flankpain that radiates to her abdomen and this has improved slightly since being given pain medications. She is being admitted to Medicine. Plan: - agree with admission to Medicine team - please keep NPO, mIVF - recommend Flomax, MMPC with Toradol, Tylenol, Pyridium, +/- Dilaudid and Oxycodone PRN - follow UA/urine culture, can start broad spectrum IV abx if continues to have concern for infection - monitor UOP, trend Cr - will tentatively plan to place left ureteral stent vs treat her stones while admitted potentiallyas early as today - Urology will continue to follow, please contact Urology on-call if patient develops fever/chills,N/V, worsening pain, or clinically decompensates Nelson Hernandez MD Urology PGY-3 Pager: [phone] [1] Past Medical History: Diagnosis Date Acute respiratory failure with hypoxia Atrophic vaginitis 03/19/2022 Cerebral palsy Cerebral palsy, unspecified (CMS/HCC) Constipation, unspecified Contracture of muscle, unspecified site Depression, unspecified Electrolyte abnormality 03/16/2023 Hyponatremia Hypokalemia Hypocalcemia Hypomagnesemia - Replete, monitor, reg diet Encounter for other preprocedural examination Pre-op exam Gastro-esophageal reflux disease without esophagitis GERD (gastroesophageal reflux disease) Human metapneumovirus (hMPV) pneumonia Hyperlipidemia, unspecified Hypotension Hypotension, unspecified Hypothyroidism Hypothyroidism Incomplete emptying of bladder 03/19/2022 Muscle wasting and atrophy, not elsewhere classified, multiple sites Neuromuscular dysfunction of bladder, unspecified Other muscle spasm Paraplegia, unspecified ([facility]) Personal history of (healed) traumatic fracture History of fracture of ankle Personal history of other diseases of urinary system History of gross hematuria Personal history of urinary (tract) infections Polyneuropathy, unspecified Postmenopausal atrophic vaginitis Recurrent UTI 03/19/2022 Rocephin 7 Seizure ([facility]) Unspecified convulsions ([facility]) Vitamin B12 deficiency anemia, unspecified Vitamin D deficiency, unspecified [2] Past Surgical History: Procedure Laterality Date ANKLE SURGERY N/A Ankle Surgery from [facility] APPENDECTOMY N/A Appendectomy from [facility] BACK SURGERY IR PAIN PUMP IMPLANT/ REPLACEMENT IR PAIN PUMP REMOVAL SACRAL NERVE STIMULATOR PLACEMENT N/A Install Sacral Nerve Neurostimulator By Incision from [facility] SUBMANDIBULAR GLAND EXCISION W/ PAROTID DUCT LIGATION N/A Thyroid Surgery Sub-Total Thyroidectomy from [facility] SUPRAPUBIC CATHETER TUBAL LIGATION N/A Tubal Ligation from [facility] [3] Family History Problem Relation Name Age of Onset Hypertension Father Heart attack Father Pancreatic cancer Mother [4] Social History Tobacco Use Smoking status: Never Smokeless tobacco: Never Vaping Use Vaping status: Never Used Substance Use Topics Alcohol use: Never Comment: Alcoholic Drinks/day: Never Drank Alcohol Drug use: Never Cosigned by Yahaira Leslie MD at 03/28/2025 10:45 AM EDT Associated attestation - Yahaira Leslie MD - 03/28/2025 10:45 AM EDT I saw and evaluated the patient. I discussed the case with the resident/fellow and agree with the findings and plan as documented. * Consults - Luis Fernando Fernandes MD - 03/28/2025 1:27 AM EDTAssociated Order(s): IP CONSULT TO ORTHOPAEDICS ORTHOPAEDIC SURGERY SPINE CONSULT NOTE HISTORY OF PRESENT ILLNESS Meme Chavarria is a 64 y.o. female with a PMHx significant for cerebral palsy complicated by neurogenic bladder s/p suprapubic catheter placement, scoliosis, prior T11-12 vertebroplasty (OSH), prior T2-T3 laminectomies (Dr. Gtz 03/2023) for T3 burst fx/spinal epidural abscess who presents to [facility] as a transfer from outside hospital due to left-sided kidney stones and hydronephrosis with UA concerning for recurrent complicated UTI. At OSH, imaging demonstrated a T7 compression fracture for which we were consulted for. Patient reports that approximately 1 week ago she noticed worsening left flank pain. She reports that this gradually worsened over the ensuing days which prompted her to present to OSH yesterday where she was found to have left-sided 6 mm and 3 mm kidney stones with hydronephrosis and UA concerningfor possible recurrent/complicated UTI. At that time CT scan was obtained which demonstrated T7 compression fracture. She was then transferred here for higher level of care. She denies any recent falls, trauma, or other known inciting factor for this compression fracture. She denies any pain in herspine and localizes pain to her left flank. She denies any new onset numbness / tingling distally, bowel/bladder incontinence, saddle anesthesia, fever/chills, nausea, vomiting, anorexia, or other constitutional symptoms. At baseline, she utilizes a wheelchair at all times. She has a past history significant for prior T3 burst fracture that was complicated by T3 osteomyelitis with spinal epidural abscess at the time of presentation for which she underwent T2-[address] Gtz in March of 2023. She states that since that time she has been unable to ambulate independently and has used a wheelchair for all ADLs. PAST MEDICAL HISTORY Past Medical History[1] MEDICATIONS Current Medications[2] ALLERGIES Allergies[3] PAST SURGICAL HISTORY Surgical History[4] FAMILY HISTORY Family History[5] SOCIAL HISTORY Tobacco: denies EtOH: denies Illicits: denies Lives: [place], [place] Employment: Disability REVIEW OF SYSTEMS Filled out by the patient. PHYSICAL EXAMINATION General Physical Exam Constitutional No acute distress Head Normocephalic and atraumatic Cardiovascular Peripheral perfusion intact Pulmonary/Chest Good respiratory effort, symmetric chest expansion, no respiratory difficulty appreciated Neurological Alert and oriented to person, place, and time Psychiatric Normal mood and affect, behavior and judgment There is no height or weight on file to calculate BMI. VITALS: Blood pressure 128/74, pulse 82, temperature 36.7 ??C (98.1 ??F), resp. rate 18, SpO2 94%. INSPECTION/MANUAL: No TTP at cervical or lumbar spine. TTP at midthoracic spine at level of inferior border of scapula. No palpable step off or deformity. COMPLETE SPINE EXAM: Motor Strength Right Left C5: Shoulder abduction (Deltoid) 01/10 01/10 C5: Elbow flexion (Biceps, Brachialis) 01/10 01/10 C6: Wrist extension (ECRB, ECRL) 01/10 01/10 C7: Elbow extension (Triceps) 01/10 01/10 C8: Finger flexion (Scouring Train Operator Strength) 01/10 01/10 T1: Finger abduction 12/11 12/11 Sensation Right Left Neck normal normal C5: Shoulder normal normal C6: Thumb, radial aspect hand/forearm (Radial Nerve) normal normal C7: Long finger (Median Nerve) normal normal C8: Little finger, ulnar aspect of hand/forearm (Ulnar n.) normal normal T1: Medial forearm/arm normal normal Reflexes Right Left C5: Biceps /12 07/ C6: Brachioradialis inverted inverted C7: Triceps /12 07/ Lau's absent absent Motor Strength Right Left L2: Hip flexion (Iliopsoas) 11/10 11/10 L3: Knee extension (Quad) 11/10 11/10 L4: Ankle DF (TA) 11/10 11/10 L5: Great Toe DF (EHL) 11/10 11/10 S1: Ankle Pf, Foot Eversion (Peroneal longus/brevis) 11/10 11/10 S2: Great toe flexion (FHL), Knee flexion 11/10 11/10 Sensation Right Left L2: Proximal anterior thigh Normal Normal L3: Mid anterior thigh Normal Normal L4: Medial leg/foot, great toe (Saphenous n.) Normal Normal L5: Dorsum of mid foot Normal Normal S1: Lateral leg/foot, little toe, Back of leg (Sural n.) Normal Normal Reflexes Right Left L4: Patellar 2/4 2/4 S1: Achilles 3/4 3/4 Babinski Positive Positive Clonus >10 beats, sustained >10 beats, sustained Rectal Exam: Normal rectal tone. Perirectal sensation intact. IMAGING CT demonstrates age-indeterminant T7 compression fracture without significant retropulsion or spinal canal compromise. There are postsurgical changes of the T11 and T12 vertebral bodies consistent with prior vertebroplasty. There is a chronic T3 compression fracture with associated T2-3 laminectomywhich appears stable compared to prior imaging. Chronic L2 compression fracture which is stable compared to prior imaging. ASSESSMENT AND PLAN Meme Chavarria is a 64 y.o. female patient with T7 compression fx Spine restrictions: No bending/twisting/lifting >10 lbs Anticipate non-operative management PT/OT Pain control per primary Bracing to be discussed with attending physician and will be ordered as needed/indicated Follow-up: Orthopaedics to enter ambulatory referral orders following staffing with orthopaedic spine attending physician Dispo: Admitted to for left-sided kidney stones and further workup due to OSH UA concerning for complicated UTI Luis Fernando Fernandes MD Orthopaedic Surgery PGY-2 [facility] Orthopaedic Trauma Service Pager: [phone] Orthopaedic Recon/Spine/Foot and Ankle Service Pager: [phone] [1] Past Medical History: Diagnosis Date Acute respiratory failure with hypoxia Atrophic vaginitis 03/19/2022 Cerebral palsy Cerebral palsy, unspecified (CMS/HCC) Constipation, unspecified Contracture of muscle, unspecified site Depression, unspecified Electrolyte abnormality 03/16/2023 Hyponatremia Hypokalemia Hypocalcemia Hypomagnesemia - Replete, monitor, reg diet Encounter for other preprocedural examination Pre-op exam Gastro-esophageal reflux disease without esophagitis GERD (gastroesophageal reflux disease) Human metapneumovirus (hMPV) pneumonia Hyperlipidemia, unspecified Hypotension Hypotension, unspecified Hypothyroidism Hypothyroidism Incomplete emptying of bladder 03/19/2022 Muscle wasting and atrophy, not elsewhere classified, multiple sites Neuromuscular dysfunction of bladder, unspecified Other muscle spasm Paraplegia, unspecified (CMS/HCC) Personal history of (healed) traumatic fracture History of fracture of ankle Personal history of other diseases of urinary system History of gross hematuria Personal history of urinary (tract) infections Polyneuropathy, unspecified Postmenopausal atrophic vaginitis Recurrent UTI 03/19/2022 Rocephin 7/ Seizure ([facility]) Unspecified convulsions ([facility]) Vitamin B12 deficiency anemia, unspecified Vitamin D deficiency, unspecified [2] No current facility-administered medications for this encounter. Current Outpatient Medications: acetaminophen (Tylenol) 500 MG tablet, Take 2 tablets (1,000 mg) by mouth every 6 (six) hours., Disp: 100 tablet, Rfl: 0 ALBUTEROL SULFATE HFA IN, Inhale 2 puffs 4 (four) times a day if needed., Disp: , Rfl: ALPRAZolam (Xanax) 0.5 MG tablet, , Disp: , Rfl: Anoro Ellipta 62.5-25 MCG/INH aerosol powder , , Disp: , Rfl: Anti-Dandruff 1 % shampoo, , Disp: , Rfl: betamethasone dipropionate (Diprosone) 0.05 % lotion, Apply 1 Application topically 2 (two) times aday if needed for irritation or rash. For flares (Patient not taking: Reported on 12/22/2024), Disp:, Rfl: bisacodyl (Dulcolax) 10 MG suppository, , Disp: , Rfl: Catheters misc, Please exchange catheter at least monthly, more often if needed., Disp: 1 each, Rfl: 11 Catheters misc, Please change suprapubic catheter once monthly or more often as needed with 18 [place] latex catheter Please flush catheter at least twice per day with 50 mL normal saline with catheter tip syringe, more often if needed. May need to aspirate urine, then flush. Call [facility] if issues, Disp: 90 each, Rfl: 11 cholecalciferol (Vitamin D-3) 25 MCG (1000 UT) tablet, Take 1 tablet (1,000 Units) by mouth 1 (one)time each day., Disp: , Rfl: cyanocobalamin (Vitamin B-12) 1000 MCG/ML injection, Inject 1 mL (1,000 mcg) into the muscle every 30 (thirty) days. Last injection was on 02/12/2023 ., Disp: , Rfl: dantrolene (Dantrium) 50 MG capsule, Take 1 capsule (50 mg) by mouth 3 (three) times a day., Disp: 90 capsule, Rfl: 2 diclofenac (Voltaren) 1 % topical gel, Place 1 Application on the skin 4 (four) times a day if needed (Muscle/Joint pain). Apply as directed to areas of pain (Patient not taking: Reported on 12/22/2024), Disp: , Rfl: diphenhydrAMINE (Benadryl) 25 MG tablet, Take by mouth every 4 (four) hours if needed. (Patient nottaking: Reported on 12/22/2024), Disp: , Rfl: doxycycline (Vibra-Tabs) 100 MG tablet, , Disp: , Rfl: doxycycline (Vibramycin) 100 MG capsule, Take 1 capsule by mouth twice a day for 6 months as Suppressive/Consolidation therapy for your back infection. (Patient not taking: Reported on 12/22/2024), Disp: 60 capsule, Rfl: 5 Doxycycline Hyclate 50 MG tablet, Take 100 mg by mouth. (Patient not taking: Reported on 12/22/2024), Disp: , Rfl: fluticasone (Flonase) 50 MCG/ACT nasal spray, Administer 2 sprays into each nostril 1 (one) time each day if needed for rhinitis. Shake gently. Before first use, prime pump. After use, clean tip and replace cap. (Patient not taking: Reported on 12/22/2024), Disp: , Rfl: gabapentin (Neurontin) 400 MG capsule, Take 1 capsule (400 mg) by mouth 3 (three) times a day., Disp: , Rfl: HYDROcodone-acetaminophen ([place]) 5-325 MG tablet, Take by mouth every 6 (six) hours. (Patient not taking: Reported on 12/22/2024), Disp: , Rfl: hydrocortisone 1 % cream, , Disp: , Rfl: lactulose (Chronulac) 10 GM/15ML oral solution, Take 15 mL (10 g) by mouth if needed., Disp: , Rfl: levETIRAcetam (Keppra) 500 MG tablet, Take 1/2 tab PO BID for two weeks then 1 tab PO BID, Disp: 60tablet, Rfl: 3 levoFLOXacin (Levaquin) 250 MG tablet, , Disp: , Rfl: levothyroxine (Synthroid, Levoxyl) 200 MCG tablet, Take 1 tablet (200 mcg) by mouth 1 (one) time each day before breakfast., Disp: , Rfl: Linzess 290 MCG capsule, Take 1 capsule (290 mcg) by mouth 1 (one) time each day before breakfast. (Patient taking differently: Take 145 mcg by mouth daily before breakfast.), Disp: , Rfl: Linzess 72 MCG capsule capsule, Take by mouth 1 (one) time each day before breakfast. (Patient not taking: Reported on 12/22/2024), Disp: , Rfl: LORazepam (Ativan) 0.5 MG tablet, Take 1 tablet (0.5 mg) by mouth 2 (two) times a day if needed foranxiety for up to 3 days. (Patient not taking: Reported on 12/22/2024), Disp: 6 tablet, Rfl: 0 melatonin 3 MG tablet, Take 1 tablet (3 mg) by mouth every night. (Patient taking differently: Take2 tablets by mouth nightly.), Disp: , Rfl: meropenem (Merrem) injection, , Disp: , Rfl: methocarbamol (Robaxin) 500 MG tablet, Take 2 tablets (1,000 mg) by mouth every 6 (six) hours for 10 days. (Patient not taking: Reported on 12/22/2024), Disp: 80 tablet, Rfl: 0 midodrine (Proamatine) 5 MG tablet, Take 1 tablet (5 mg) by mouth 2 (two) times a day., Disp: 60 tablet, Rfl: 0 mirabegron ER (Myrbetriq) 50 MG tablet, Take 1 tablet (50 mg) by mouth 1 (one) time each day., Disp: 30 tablet, Rfl: 11 Misc. Devices misc, Please discontinue Ms. Monroe's jacobs catheter. Will resume CIC with the assistance of her per patient request. Thank you., Disp: 1 each, Rfl: 0 Multiple Vitamin (multivitamin) capsule, Take 1 capsule by mouth 1 (one) time each day., Disp: , Rfl: omeprazole (PriLOSEC) [address] capsule, Take 1 capsule (40 mg) by mouth 1 (one) time each day. Do not crush or chew., Disp: , Rfl: oxyCODONE (Roxicodone) 5 MG immediate release tablet, , Disp: , Rfl: polyethylene glycol (Miralax) 17 GM/SCOOP powder, Take 17 g by mouth 1 (one) time each day., Disp: , Rfl: potassium chloride CR (Klor-Con) 10 MEQ ER tablet, Take 1 tablet (10 mEq) by mouth 2 (two) times a day. Do not crush, chew, or split. (Patient not taking: Reported on 12/22/2024), Disp: , Rfl: Prucalopride Succinate (Motegrity) 2 MG tablet, Take 1 tablet by mouth in the morning., Disp: , Rfl: sertraline (Zoloft) 100 MG tablet, Take 2 tablets (200 mg) by mouth 2 (two) times a day. (Patient taking differently: Take 1.5 tablets by mouth in the morning and 1.5 tablets before bedtime.), Disp: , Rfl: Stimulant Laxative 8.6-50 MG tablet, , Disp: , Rfl: tiZANidine (Zanaflex) 2 MG capsule, Take 1 capsule (2 mg) by mouth 2 (two) times a day., Disp: , Rfl: traZODone (Desyrel) 50 MG tablet, Take 1 tablet (50 mg) by mouth every night., Disp: , Rfl: [3] Allergies Allergen Reactions Methenamine Itching, Rash and Swelling Methotrexate Other - please document in the comment field Metoclopramide Other - please document in the comment field Petechiae on her legs Morphine Unknown - Patient states they do not know rxn details Reglan [Metoclopramide] Unknown - Patient states they do not know rxn details Sulfa Drugs Rash Sulfacetamide Rash [4] Past Surgical History: Procedure Laterality Date ANKLE SURGERY N/A Ankle Surgery from [facility] APPENDECTOMY N/A Appendectomy from [facility] BACK SURGERY IR PAIN PUMP IMPLANT/ REPLACEMENT IR PAIN PUMP REMOVAL SACRAL NERVE STIMULATOR PLACEMENT N/A Install Sacral Nerve Neurostimulator By Incision from [facility] SUBMANDIBULAR GLAND EXCISION W/ PAROTID DUCT LIGATION N/A Thyroid Surgery Sub-Total Thyroidectomy from [facility] SUPRAPUBIC CATHETER TUBAL LIGATION N/A Tubal Ligation from [facility] [5] Family History Problem Relation Name Age of Onset Hypertension Father Heart attack Father Pancreatic cancer Mother Cosigned by Bert Hood MD at 03/29/2025 1:52 PM EDT Associated attestation - Bert Hood MD - 03/29/2025 1:52 PM EDT I saw and evaluated the patient. I discussed the case with the resident/fellow and agree with the findings and plan as documented. * ED Provider Notes - Clay Read DO - 03/28/2025 12:21 AM EDT - HPI Chief Complaint Patient presents with Kidney Stone HPI Ms. Chavarria is a 64-year-old female with a past medical history significant for paraplegia, cerebral palsy and neurogenic bladder With suprapubic catheter in place [facility]. At [facility] a CT abdomen and pelvis done which showed a 6 mm and a 2 mm stone in her left ureter as well as hydronephrosis of the left kidney. Prompting her to be transferred to [facility] today. Also seen on the CT abdomen and pelvis was a compression fracture of the T7 vertebra. The patient states that she began feeling pain on her left side and in the middle of her back 1 week ago. She states that during this time the pain has increased. She states that laying on her left side makes the pain worse. She states that the pain medicine she received at the outside hospital made it better. She denies experiencing any fever during this time. She has a suprapubic catheter in place but she has not noticed any blood in her urine. She states that 4 days ago an x-ray of her back was taken at the [facility] and she was informed that she had a new fracture of her in her back. She states that she was treated with ibuprofen for this. She states that today the pain in her left si de became so severe that she was sent to [facility] before being sent to [facility]. Patient History Past Medical History[1] Surgical History[2] Family History[3] Social History[4] Allergies: Allergies[5] Physical Exam ED Triage Vitals [03/28/25 0028] Temp Heart Rate Resp BP 36.7 ??C (98.1 ??F) 82 18 128/74 SpO2 Temp src Heart Rate Source Patient Position 94 % -- -- -- BP Location FiO2 (%) -- -- Physical Exam Constitutional: Appearance: She is not toxic-appearing. HENT: Head: Normocephalic and atraumatic. Eyes: Extraocular Movements: Extraocular movements intact. Cardiovascular: Rate and Rhythm: Normal rate. Pulmonary: Effort: Pulmonary effort is normal. Breath sounds: Normal breath sounds. Abdominal: Palpations: Abdomen is soft. Tenderness: There is no abdominal tenderness. There is left CVA tenderness. There is no right CVA tenderness. Genitourinary: Comments: No visible blood in patient's urine collection bag, no film or discoloration of urine Musculoskeletal: Right lower leg: No edema. Left lower leg: No edema. Skin: General: Skin is warm. Neurological: Mental Status: She is alert and oriented to person, place, and time. GCS: GCS eye subscore is 4. GCS verbal subscore is 5. GCS motor subscore is 6. Comments: Left sided [place] Palsy Patient is able to move the digits of her lower extremities, unable to move legs. Can sense touch on lower extremities. No data recorded ED Course & MDM -The patient was seen and greeted upon arrival to the emergency department, a thorough history and physical exam were obtained. Patient is well-appearing, in no acute distress. She has mild to moderate amount of tenderness over her left CVA. No tenderness in the left lower quadrant of her abdomen. Her vital signs are within normal limits, she is afebrile. Basic labs were obtained including a CBC,CMP, UA, CRP, pro count. CBC grossly unremarkable, CMP unremarkable, inflammatory markers are within normal limits. Urology was consulted. I provided her with 1 L of lactated Ringer's, IV Toradol, IVDilaudid, IV Zofran. Additionally she was given double dose of tamsulosin. Orthopedic surgery was also consulted for her incidental findings of her spine. They will obtain repeat imaging including upright films. Given her underlying health conditions we will admit the patient to the hospital for further evaluation and management. She likely will undergo lithotripsy with stent placement later today. We will withhold antibiotics for now since she is well-appearing. We will also exchange her suprapubic catheter and obtain a fresh urine specimen Assessment: 64 y.o. female presents to ED with complaint of left flank pain. It should be noted that the chronic conditions includes paraplegia, cerebral palsy and neurogenic bladder with suprapubic catheter in place, which currently is not at goal therapy. This complicates the clinical picture because it Comorbidities: may be exacerbating symptoms Differential Diagnosis: nephrolithiasis, hydronephrosis, pyelonephritis, compression fracture of [id number], Sepsis In order to fully explore the differential diagnosis the following treatments and tests were ordered: Social Determinates of Health Risks (including Economic Stability, Education and level of understanding, Healthcare access and quality and concerning social factors): None identified on this visit Ultimately, this patient was Was admitted (Admission) There were no encounter diagnoses.. Patient believed to require admission for the listed diagnoses. The Internal Medicine service was consulted for admission and was agreeable to admit toAcute Floor (Med/Surg). ED Prescriptions None -I Clay Read saw and evaluated the patient with the medical student. I discussed the case withthe medical student and agree with the findings and plan as documented. I personally performed the Exam and Medical Decision Making. [1] Past Medical History: Diagnosis Date Acute respiratory failure with hypoxia Atrophic vaginitis 03/19/2022 Cerebral palsy Cerebral palsy, unspecified (CMS/HCC) Constipation, unspecified Contracture of muscle, unspecified site Depression, unspecified Electrolyte abnormality 03/16/2023 Hyponatremia Hypokalemia Hypocalcemia Hypomagnesemia - Replete, monitor, reg diet Encounter for other preprocedural examination Pre-op exam Gastro-esophageal reflux disease without esophagitis GERD (gastroesophageal reflux disease) Human metapneumovirus (hMPV) pneumonia Hyperlipidemia, unspecified Hypotension Hypotension, unspecified Hypothyroidism Hypothyroidism Incomplete emptying of bladder 03/19/2022 Muscle wasting and atrophy, not elsewhere classified, multiple sites Neuromuscular dysfunction of bladder, unspecified Other muscle spasm Paraplegia, unspecified (CMS/HCC) Personal history of (healed) traumatic fracture History of fracture of ankle Personal history of other diseases of urinary system History of gross hematuria Personal history of urinary (tract) infections Polyneuropathy, unspecified Postmenopausal atrophic vaginitis Recurrent UTI 03/19/2022 Rocephin 7/8 Seizure (CMS/HCC) Unspecified convulsions (CMS/HCC) Vitamin B12 deficiency anemia, unspecified Vitamin D deficiency, unspecified [2] Past Surgical History: Procedure Laterality Date ANKLE SURGERY N/A Ankle Surgery from [facility] APPENDECTOMY N/A Appendectomy from [facility] BACK SURGERY IR PAIN PUMP IMPLANT/ REPLACEMENT IR PAIN PUMP REMOVAL SACRAL NERVE STIMULATOR PLACEMENT N/A Install Sacral Nerve Neurostimulator By Incision from [facility] SUBMANDIBULAR GLAND EXCISION W/ PAROTID DUCT LIGATION N/A Thyroid Surgery Sub-Total Thyroidectomy from [facility] SUPRAPUBIC CATHETER TUBAL LIGATION N/A Tubal Ligation from [facility] [3] Family History Problem Relation Name Age of Onset Hypertension Father Heart attack Father Pancreatic cancer Mother [4] Tobacco Use Smoking status: Never Smokeless tobacco: Never Vaping Use Vaping status: Never Used Substance Use Topics Alcohol use: Never Comment: Alcoholic Drinks/day: Never Drank Alcohol Drug use: Never [5] Allergies Allergen Reactions Methenamine Itching, Rash and Swelling Methotrexate Other - please document in the comment field Metoclopramide Other - please document in the comment field Petechiae on her legs Morphine Unknown - Patient states they do not know rxn details Reglan [Metoclopramide] Unknown - Patient states they do not know rxn details Sulfa Drugs Rash Sulfacetamide Rash Clay Read DO 03/28/25 0359 * ED Triage Notes - Pina Delgadillo RN - 03/28/2025 12:21 AM EDT Presents to the ER transfer from [facility] or 6mm and 2mm kidney stones Ieft ureter,UTI. Also was found to have T7 compression fx. Hx of cp, paraplegia, neurogenic bladder/suprapubic catheter. Transferred for urology. Received Tylenol 1 gm, Rocephin 1 gram, Robaxin, Zofran 4mg, Oxycodone 5mg. documented in this encounter Plan of Treatment Upcoming Encounters Date Type Department Care Team (Late st Contact Info) Description 07/14/2025 8:45 AM EST Appointment [facility] Ultrasound [address] [place] [phone] 07/14/2025 10:50 AM EST Office Visit Medical Office Building Urology [address] [facility] [address] [facility], [address] [place] [phone] Zoie Restrepo, [employer] [address] [place] [phone] 10/03/2025 11:40 AM EST Office Visit [facility] Urology [address] [place] [address] Maria Guadalupe Madrigal, [employer] [address] [place] [address] Scheduled Referrals Name Type Priority Associated Diagnoses Order Schedule Discharge Ambulatory referral to Urology Outpatient Referral Routine Kidney stone Expected: 04/13/2025, Expires: 10/01/2026 documented as of this encounter Procedures Procedure Name Priority Date/Time Associated Diagnosis Comments CBC WITH AUTO DIFFERENTIAL Routine 03/30/2025 2:35 AM EDT PHOSPHORUS, PLASMA Routine 03/30/2025 2: 35 AM EDT MAGNESIUM, PLASMA Routine 03/30/2025 2:3 5 AM EDT BASIC METABOLIC PANEL, PLASMA Routine 03/30/2025 2:35 AM EDT CBC WITH AUTO DIFFERENTIAL Routine 03/29/2025 2:51 AM EDT PHOSPHORUS, PLASMA Routine 03/29/2025 2: 51 AM EDT MAGNESIUM, PLASMA Routine 03/29/2025 2:5 1 AM EDT BASIC METABOLIC PANEL, PLASMA Routine 03/29/2025 2:51 AM EDT CALCULI (KIDNEY STONE)ANALYSIS (SO) Routine 03/28/2025 1:04 PM EDT FL LESS THAN 1 HOUR (NON-REPORTABLE) Routine 03/28/2025 11:59 AM EDT URINE CULTURE Routine 03/28/2025 11:48 AM EDT Kidney stone CYSTOSCOPY, WITH URETERAL STENT INSERTION OR REMOVAL 03/28/2025 10:58 AM EDT Kidney stone MULTI DRUG RESISTANCE TEST Routine 03/28/2025 5:49 AM EDT SEND FER MESSAGE STAT 03/28/2025 3: 27 AM EDT URINALYSIS WITH REFLEX MICROSCOPIC AND CULTURE STAT 03/28/2025 3:27 AM EDT URINE HUNTER PANEL STAT 03/28/2025 3:27 AM EDT URINALYSIS MICROSCOPIC FOR UA REFLEX STAT 03/28/2025 3:27 AM EDT URINALYSIS WITH REFLEX MICROSCOPIC STAT 03/28/2025 3:27 AM EDT URINE CULTURE STAT 03/28/2025 3:[address] LUMBAR SPINE WO IV CONTRAST STAT 03/28/2025 2:[address] THORACIC SPINE WO IV CONTRAST STAT 03/28/2025 2:[address] CERVICAL SPINE WO IV CONTRAST STAT 03/28/2025 2:22 AM EDT TSH REFLEX FT4 Add-On 03/28/2025 1:14 AM EDT PROCALCITONIN, PLASMA STAT 03/28/2025 1:14 AM EDT VITAMIN D, 1, 25-DIHYDROXY STAT 03/28/2025 1:14 AM EDT VITAMIN D 25 HYDROXY STAT 03/28/2025 1:14 AM EDT CBC WITH AUTO DIFFERENTIAL STAT 03/28/2025 1:14 AM EDT C-REACTIVE PROTEIN, PLASMA STAT 03/28/2025 1:14 AM EDT FREE T4, PLASMA Routine 03/28/2025 1:14 AM EDT PHOSPHORUS, PLASMA STAT 03/28/2025 1: 14 AM EDT MAGNESIUM, PLASMA STAT 03/28/2025 1:1 4 AM EDT COMPREHENSIVE METABOLIC PANEL, PLASMA STAT 03/28/2025 1:14 AM EDT documented in this encounter Results * (ABNORMAL) Basic metabolic panel (03/30/2025 2:35 AM EDT) Glucose, Plasma 101(H) 74 - 99 mg/dL 03/30/2025 3:06 AM EDT [facility] BUN, Plasma 6(L) 8 - 23 mg/dL 03/30/2025 3:06 AM EDT [facility] Creatinine, Plasma 0.27(L) 0.60 - 1.10 mg/dL 03/30/2025 3:06 AM EDT [facility] BUN/Creatinine Ratio 22 03/30/2025 3:06 AM EDT [facility] Sodium, Plasma 142 136 - 145 mmol/L 03/30/2025 3:06 AM EDT [facility] Potassium, Plasma 3.1(L) 3.6 - 4.9 mmol/L 03/30/2025 3:06 AM EDT [facility] Chloride, Plasma 110(H) 97 - 107 mmol/L 03/30/2025 3:06 AM EDT [facility] CO2, Plasma 22 22 - 29 mmol/L 03/30/2025 3:06 AM EDT [facility] Anion Gap 10 6 - 16 mmol/L 03/30/2025 3:06 AM EDT [facility] Total Calcium, Plasma 8.3(L) 8.9 - 10.2 mg/dL 03/30/2025 3:06 AM EDT [facility] eGFRcr 120.2 mL/min/1.7 3m*2 03/30/2025 3:06 AM EDT [facility] Comment:Reported eGFRcr in m L/min/1.73m2 is based the CKD-EPI 2020 equation that does not use a race coefficient. Blood Venous blood specimen / Unknown Venipuncture / Unknown 03/30/2025 2:35 AM EDT 03/30/2025 2:42 AM EDT Luis Alfredo Hodges MD LAB BLOOD ORDERABLES nal Result [facility] [address] [place] [address] * (ABNORMAL) CBC and Differential (03/30/2025 2:35 AM EDT) WBC Count 5.30 3.70 - 10.30 10*3/uL LAB HEMATOLOGY METHOD 03/30/2025 2:47 AM EDT [facility] RBC Count 4.27 3.90 - 5.20 10*6/uL LAB HEMATOLOGY METHOD 03/30/2025 2:47 AM EDT [facility] HGB 11.0(L) 11.2 - 15.7 g/dL LAB HEMATOLOGY METHOD 03/30/2025 2:47 AM EDT [facility] HCT 35.2 34.0 - 45.0 % LAB HEMATOLOGY METHOD 03/30/2025 2:47 AM EDT [facility] Platelet Count 148(L) 155 - 369 10*3/uL LAB HEMATOLOGY METHOD 03/30/2025 2:47 AM EDT [facility] MCV 82 79 - 98 fL LAB HEMATOLOGY METHOD 03/30/2025 2:47 AM EDT [facility] MCH 25.8(L) 26.0 - 32.0 pg LAB HEMATOLOGY METHOD 03/30/2025 2:47 AM EDT [facility] MCHC 31.3 30.7 - 35.5 g/dL LAB HEMATOLOGY METHOD 03/30/2025 2:47 AM EDT [facility] RDW 15.1(H) 11.5 - 14.5 % LAB HEMATOLOGY METHOD 03/30/2025 2:47 AM EDT [facility] MPV 9.2 8.8 - 12.5 fL LAB HEMATOLOGY METHOD 03/30/2025 2:47 AM EDT [facility] nRBC 0.0 <=0.0 per 100 WBCs LAB HEMATOLOGY METHOD 03/30/2025 2:47 AM EDT [facility] Differential Type Automated LAB HEMATOLOGY METHOD 03/30/2025 2:47 AM EDT [facility] Neutrophils % 66 % LAB HEMATOLOGY METHOD 03/30/2025 2:47 AM EDT [facility] Lymphocytes % 23 % LAB HEMATOLOGY METHOD 03/30/2025 2:47 AM EDT [facility] Monocytes % 6 % LAB HEMATOLOGY METHOD 03/30/2025 2:47 AM EDT [facility] Eosinophils % 3 % LAB HEMATOLOGY METHOD 03/30/2025 2:47 AM EDT [facility] Basophils % 1 % LAB HEMATOLOGY METHOD 03/30/2025 2:47 AM EDT [facility] Immature Granulocytes % 1 % LAB HEMATOLOGY METHOD 03/30/2025 2:47 AM EDT [facility] Neutrophils Absolute 3.54 1.60 - 6.10 10*3/uL LAB HEMATOLOGY METHOD 03/30/2025 2:47 AM EDT [facility] Lymphocytes Absolute 1.22 1.20 - 3.90 10*3/uL LAB HEMATOLOGY METHOD 03/30/2025 2:47 AM EDT [facility] Monocytes Absolute 0.33 0.30 - 0.90 10*3/uL LAB HEMATOLOGY METHOD 03/30/2025 2:47 AM EDT [facility] Eosinophils Absolute 0.14 0.00 - 0.50 10*3/uL LAB HEMATOLOGY METHOD 03/30/2025 2:47 AM EDT [facility] Basophils Absolute 0.03 0.00 - 0.10 10*3/uL LAB HEMATOLOGY METHOD 03/30/2025 2:47 AM EDT [facility] Immature Granulocytes Absolute 0.04 0.00 - 0.06 10*3/uL LAB HEMATOLOGY METHOD 03/30/2025 2:47 AM EDT [facility] Blood Venous blood specimen / Unknown Venipuncture / Unknown 03/30/2025 2:35 AM EDT 03/30/2025 2:42 AM EDT Narrative [facility] - 03/30/2025 2:47 AM EDT Therapeutic decision making should be based on absolute values, rather than percentages. Luis Alfredo Hodges MD LAB BLOOD ORDERABLES Fi nal Result Performing Organization Address City/[facility] Co de Phone Number [facility] [address] [place] [address] * Magnesium, Plasma (03/30/2025 2:35 AM EDT) Magnesium, Plasma 2.0 1.9 - 2.4 mg/dL 03/30/2025 3:06 AM EDT [facility] Blood Venous blood specimen / Unknown Venipuncture / Unknown 03/30/2025 2:35 AM EDT 03/30/2025 2:42 AM EDT Luis Alfredo Hodges MD LAB BLOOD ORDERABLES Fi nal Result Performing Organization Address City/[facility] Co de Phone Number [facility] [address] [place] [address] * Phosphorus, Plasma (03/30/2025 2:35 AM EDT) Phosphorus, Plasma 3.8 2.5 - 4.5 mg/dL 03/30/2025 3:06 AM EDT [facility] Blood Venous blood specimen / Unknown Venipuncture / Unknown 03/30/2025 2:35 AM EDT 03/30/2025 2:42 AM EDT Luis Alfredo Hodges MD LAB BLOOD ORDERABLES Fi nal Result Performing Organization Address City/[facility]/ZIP Co de Phone Number [facility] [address] [place] [address] * (ABNORMAL) Basic metabolic panel (03/29/2025 2:51 AM EDT) Glucose, Plasma 87 74 - 99 mg/dL 03/29/2025 5:08 AM EDT [facility] BUN, Plasma 12 8 - 23 mg/dL 03/29/2025 5:08 AM EDT [facility] Creatinine, Plasma 0.30(L) 0.60 - 1.10 mg/dL 03/29/2025 5:08 AM EDT [facility] BUN/Creatinine Ratio 40 03/29/2025 5:08 AM EDT [facility] Sodium, Plasma 141 136 - 145 mmol/L 03/29/2025 5:08 AM EDT [facility] Potassium, Plasma 3.8 3.6 - 4.9 mmol/L 03/29/2025 5:08 AM EDT [facility] Chloride, Plasma 110(H) 97 - 107 mmol/L 03/29/2025 5:08 AM EDT [facility] CO2, Plasma 24 22 - 29 mmol/L 03/29/2025 5:08 AM EDT [facility] Anion Gap 7 6 - 16 mmol/L 03/29/2025 5:08 AM EDT [facility] Total Calcium, Plasma 8.0(L) 8.9 - 10.2 mg/dL 03/29/2025 5:08 AM EDT [facility] eGFRcr 117.2 mL/min/1.7 3m*2 03/29/2025 5:08 AM EDT [facility] Comment:Reported eGFRcr in m L/min/1.73m2 is based the CKD-EPI 2020 equation that does not use a race coefficient. Blood Venous blood specimen / Unknown Venipuncture / Unknown 03/29/2025 2:51 AM EDT 03/29/2025 4:37 AM EDT Luis Alfredo Hodges MD LAB BLOOD ORDERABLES Fi nal Result [facility] [address] [place] [address] * (ABNORMAL) CBC and Differential (03/29/2025 2:51 AM EDT) WBC Count 5.04 3.70 - 10.30 10*3/uL LAB HEMATOLOGY METHOD 03/29/2025 4:41 AM EDT [facility] RBC Count 4.24 3.90 - 5.20 10*6/uL LAB HEMATOLOGY METHOD 03/29/2025 4:41 AM EDT [facility] HGB 10.7(L) 11.2 - 15.7 g/dL LAB HEMATOLOGY METHOD 03/29/2025 4:41 AM EDT [facility] HCT 35.2 34.0 - 45.0 % LAB HEMATOLOGY METHOD 03/29/2025 4:41 AM EDT [facility] Platelet Count 172 155 - 369 10*3/uL LAB HEMATOLOGY METHOD 03/29/2025 4:41 AM EDT [facility] MCV 83 79 - 98 fL LAB HEMATOLOGY METHOD 03/29/2025 4:41 AM EDT [facility] MCH 25.2(L) 26.0 - 32.0 pg LAB HEMATOLOGY METHOD 03/29/2025 4:41 AM EDT [facility] MCHC 30.4(L) 30.7 - 35.5 g/dL LAB HEMATOLOGY METHOD 03/29/2025 4:41 AM EDT [facility] RDW 15.0(H) 11.5 - 14.5 % LAB HEMATOLOGY METHOD 03/29/2025 4:41 AM EDT [facility] MPV 10.0 8.8 - 12.5 fL LAB HEMATOLOGY METHOD 03/29/2025 4:41 AM EDT [facility] nRBC 0.0 <=0.0 per 100 WBCs LAB HEMATOLOGY METHOD 03/29/2025 4:41 AM EDT [facility] Differential Type Automated LAB HEMATOLOGY METHOD 03/29/2025 4:41 AM EDT [facility] Neutrophils % 67 % LAB HEMATOLOGY METHOD 03/29/2025 4:41 AM EDT [facility] Lymphocytes % 22 % LAB HEMATOLOGY METHOD 03/29/2025 4:41 AM EDT [facility] Monocytes % 7 % LAB HEMATOLOGY METHOD 03/29/2025 4:41 AM EDT [facility] Eosinophils % 2 % LAB HEMATOLOGY METHOD 03/29/2025 4:41 AM EDT [facility] Basophils % 1 % LAB HEMATOLOGY METHOD 03/29/2025 4:41 AM EDT [facility] Immature Granulocytes % 1 % LAB HEMATOLOGY METHOD 03/29/2025 4:41 AM EDT [facility] Neutrophils Absolute 3.37 1.60 - 6.10 10*3/uL LAB HEMATOLOGY METHOD 03/29/2025 4:41 AM EDT [facility] Lymphocytes Absolute 1.10(L) 1.20 - 3.90 10*3/uL LAB HEMATOLOGY METHOD 03/29/2025 4:41 AM EDT [facility] Monocytes Absolute 0.34 0.30 - 0.90 10*3/uL LAB HEMATOLOGY METHOD 03/29/2025 4:41 AM EDT [facility] Eosinophils Absolute 0.12 0.00 - 0.50 10*3/uL LAB HEMATOLOGY METHOD 03/29/2025 4:41 AM EDT [facility] Basophils Absolute 0.05 0.00 - 0.10 10*3/uL LAB HEMATOLOGY METHOD 03/29/2025 4:41 AM EDT [facility] Immature Granulocytes Absolute 0.06 0.00 - 0.06 10*3/uL LAB HEMATOLOGY METHOD 03/29/2025 4:41 AM EDT [facility] Blood Venous blood specimen / Unknown Venipuncture / Unknown 03/29/2025 2:51 AM EDT 03/29/2025 4:37 AM EDT Narrative [facility] - 03/29/2025 4:41 AM EDT Therapeutic decision making should be based on absolute values, rather than percentages. us Luis Alfredo Hodges MD LAB BLOOD ORDERABLES Fi nal Result Performing Organization Address City/[facility] Co de Phone Number [facility] [address] [place] [address] * Magnesium, Plasma (03/29/2025 2:51 AM EDT) Magnesium, Plasma 1.9 1.9 - 2.4 mg/dL 03/29/2025 5:08 AM EDT [facility] Blood Venous blood specimen / Unknown Venipuncture / Unknown 03/29/2025 2:51 AM EDT 03/29/2025 4:37 AM EDT us Luis Alfredo Hodges MD LAB BLOOD ORDERABLES Fi nal Result Performing Organization Address City/[facility]/ZIP Co de Phone Number [facility] [address] [place] [address] * Phosphorus, Plasma (03/29/2025 2:51 AM EDT) Phosphorus, Plasma 3.1 2.5 - 4.5 mg/dL 03/29/2025 5:08 AM EDT [facility] Blood Venous blood specimen / Unknown Venipuncture / Unknown 03/29/2025 2:51 AM EDT 03/29/2025 4:37 AM EDT Luis Alfredo Hodges MD LAB BLOOD ORDERABLES Fi nal Result [facility] [address] [place] [address] * Calculi (Stone) Analysis (03/28/2025 1:04 PM EDT) Calculi Mass 134 mg 04/01/2025 9:50 PM EDT [facility] Calculi Description See Note 04/01/2025 9:50 PM EDT [facility] Calculi Composition See Note 04/01/2025 9:50 PM EDT [facility] Calculus Non-blood Collection / Unknown 03/28/2025 1:04 PM EDT 03/28/2025 1:04 PM EDT Narrative [facility]) - 04/01/2025 9:50 PM EDT Specimen consists of numerous brown and mcduffie calculi fragments. The total weight is 134 mg. Calculi composed primarily of: 20% calcium oxalate dihydrate, 20% magnesium ammonium phosphate (struvite), and 60% calcium phosphate (hydroxy- and carbonate- apatite). INTERPRETIVE INFORMATION: Calculi (Stone) analysis Calculi are the products of physiological processes that yield crystalline compounds in a matrix of biological compounds and blood. Matrix components are not reported. The clinically significant crystalline components identified in calculi specimens are reported. Gross description may not be consistent with composition determined by FTIR analysis. Performed By: [facility] [address] [place] [id number] Supervisor Weaving: Douglas Rubin MD, PhD CLIA Number: [id number] us Junior Baird [employer] [facility] [employer] [facility] REF LAB BLOOD AND FLUI D ORD Final Result [facility] S[facility]NCHE[facility]) [address] [place] [address] * [place] Less than 1 Hour Intraoperative (03/28/2025 11:59 AM EDT) Narrative [facility]AG[facility] - 03/28/2025 12:00 PM EDT Images were obtained for surgical purposes. See Yahaira Leslie's surgical note in the patient's chart for the findings. Yahaira Leslie MD IMG FLUOROSCOPY PROCEDURES F inal Result IMAG[facility] * (ABNORMAL) Urine Culture (03/28/2025 11:48 AM EDT) Culture 1,000 - 10,000 CFU/mL Enterobacter cloacae complex(A) SAMARA 03/31/2025 8:51 AM EDT [facility] Comment: This isolate has been identified using the FDA Approved MALDI Biotyper CA System Edited result: Previously reported as Gram Negative Juan on 03/29/2025 at 1005 EDT. Culture 1,000 - 10,000 CFU/mL Morganella morganii(A) [facility] 03/31/2025 8:51 AM EDT [facility] Comment: This isolate has been identified using the FDA Approved MALDI MyEduyper CA System The organism value for this result has been updated. These results have been appended to the previously preliminary verified report. Edited result: Previously reported as Gram Negative Juan on 03/30/2025 at 0632 EDT. Culture >=10,000 CFU/mL - Biotype 1 Enterococcus faecalis(A) [facility]ARA 03/31/2025 8:51 AM EDT [facility] Comment: This isolate has been identified using the FDA Approved MALDI MyEduyper CA System The organism value for this result has been updated. These results have been appended to the previously preliminary verified report. Culture >=10,000 CFU/mL - Biotype 2 Enterococcus faecalis(A) SAMARA 03/31/2025 8:51 AM EDT [facility] Comment: This isolate has been identified using the FDA Approved TRIBAXer CA System The organism value for this result has been updated. These results have been appended to the previously preliminary verified report. Urine Urinary bladder structure / Unknown 03/28/2025 11:48 AM EDT 03/28/2025 12:14 PM EDT Comment:Pre-op diagnosis: Kidney stone [N20.0] Narrative Organism Antibiotic Method Susceptibility Enterobacter cloacae complex Amoxicillin/Clavulanate SAMARA >16/8 ug/ml: Resistant Enterobacter cloacae complex Ampicillin SAMARA 16 ug/ml: Resistant Enterobacter cloacae complex Ampicillin/Sulbactam SAMARA 16/8 ug/ml: Resistant Enterobacter cloacae complex Aztreonam SAMARA <=2 ug/ml: Susceptible Enterobacter cloacae complex Cefazolin SAMARA >16 ug/ml: Resistant Enterobacter cloacae complex Cefepime SAMARA <=0.5 ug/ml: Susceptible Enterobacter cloacae complex Ciprofloxacin SAMARA <=0.25 ug/ml: Susceptible Enterobacter cloacae complex Ertapenem SAMARA <=0.25 ug/ml: Susceptible Enterobacter cloacae complex Gentamicin SAMARA <=2 ug/ml: Susceptible Enterobacter cloacae complex Levofloxacin SAMARA <=0.25 ug/ml: Susceptible Enterobacter cloacae complex Meropenem SAMARA <=0.5 ug/ml: Susceptible Enterobacter cloacae complex Nitrofurantoin SAMARA >64 ug/ml: Resistant Enterobacter cloacae complex Piperacillin/Tazobactam SAMARA 4/4 ug/ml: Susceptible Enterobacter cloacae complex Tetracycline SAMARA <=2 ug/ml: Susceptible Enterobacter cloacae complex Tobramycin SAMARA <=2 ug/ml: Susceptible Enterobacter cloacae complex Trimethoprim/Sulfamethoxaz ole SAMARA <=0.5/9.5 ug/ml: Susceptible Comment: This organism may produce inducible or derepressed AmpC -lactamase, which can lead to treatment failure with third-generation cephalosporins (e.g., ceftriaxone, ceftazidime) despite apparent in vitro susceptibility. In serious infections (e.g., bacteremia), agents such as cefepime or carbapenems are preferred. Consider discussing with infectious disease or antimicrobial stewardship team. Morganella morganii Amoxicillin/Clavulanate SAMARA >16/8 ug/ml: Resistant Morganella morganii Ampicillin SAMARA >16 ug/ml: Resistant Morganella morganii Ampicillin/Sulbactam SAMARA >16/8 ug/ml: Resistant Morganella morganii Aztreonam SAMARA <=2 ug/ml: Susceptible Morganella morganii Cefazolin SAMARA >16 ug/ml: Resistant Morganella morganii Cefepime SAMARA <=0.5 ug/ml: Susceptible Morganella morganii Ceftriaxone SAMARA <=1 ug/ml: Susceptible Morganella morganii Ciprofloxacin SAMARA 0.5 ug/ml: Intermediate Morganella morganii Ertapenem SAMARA <=0.25 ug/ml: Susceptible Morganella morganii Gentamicin SAMARA <=2 ug/ml: Susceptible Morganella morganii Levofloxacin SAMARA 0.5 ug/ml: Susceptible Morganella morganii Meropenem SAMARA <=0.5 ug/ml: Susceptible Morganella morganii Nitrofurantoin SAMARA 64 ug/ml: Resistant Morganella morganii Piperacillin/Tazobactam SAMARA <=2/4 ug/ml: Susceptible Morganella morganii Tetracycline SAMARA <=2 ug/ml: Susceptible Morganella morganii Tobramycin SAMARA <=2 ug/ml: Susceptible Morganella morganii Trimethoprim/Sulfame thoxaz ole SAMARA <=0.5/9.5 ug/ml: Susceptible Enterococcus faecalis Ampicillin SAMARA 1 ug/ml: Susceptible Enterococcus faecalis Daptomycin SAMARA <=1 ug/ml: Susceptible Enterococcus faecalis Gentamicin Synergy , 500 UG/ML SAMARA <=500 ug/ml: Susceptible Comment:Synergy of a minoglycoside with Penicillin is likely. Serious Enterococcal infections require combined therapy with high dose Ampicillin or Vancomycin plus Gentamicin or Streptomycin. Enterococcus faecalis Levofloxacin SAMARA 2 ug/ml: Susceptible Enterococcus faecalis Linezolid SAMARA <=1 ug/ml: Susceptible Enterococcus faecalis Penicillin G SAMARA 4 ug/ml: Susceptible Enterococcus faecalis Streptomycin Syner gy, 1000 UG/ML SAMARA <=1,000 ug/ml: Susceptible Comment:Synergy of a minoglycoside with Penicillin is likely. Serious Enterococcal infections require combined therapy with high dose Ampicillin or Vancomycin plus Gentamicin or Streptomycin. Enterococcus faecalis Tetracycline SAMARA >8 ug/ml: Resistant Enterococcus faecalis Vancomycin SAMARA <=0.5 ug/ml: Susceptible Enterococcus faecalis Ampicillin SAMARA 2 ug/ml: Susceptible Enterococcus faecalis Daptomycin SAMARA <=1 ug/ml: Susceptible Enterococcus faecalis Gentamicin Synergy , 500 UG/ML SAMARA <=500 ug/ml: Susceptible Comment:Synergy of a minoglycoside with Penicillin is likely. Serious Enterococcal infections require combined therapy with high dose Ampicillin or Vancomycin plus Gentamicin or Streptomycin. Enterococcus faecalis Levofloxacin SAMARA >4 ug/ml: Resistant Enterococcus faecalis Linezolid SAMARA <=1 ug/ml: Susceptible Enterococcus faecalis Penicillin G SAMARA 4 ug/ml: Susceptible Enterococcus faecalis Streptomycin Syner gy, 1000 UG/ML SAMARA <=1,000 ug/ml: Susceptible Comment:Synergy of a minoglycoside with Penicillin is likely. Serious Enterococcal infections require combined therapy with high dose Ampicillin or Vancomycin plus Gentamicin or Streptomycin. Enterococcus faecalis Tetracycline SAMARA >8 ug/ml: Resistant Enterococcus faecalis Vancomycin SAMARA 1 ug/ml: Susceptible Yahaira Leslie MD LAB MICROBIOLOGY - GENERAL O RDERABLES Final Result Performing Organization Address City/[facility]/ZIP Co de Phone Number [facility] [address] [place] [address] * Multi Drug Resistance Test (03/28/2025 5:49 AM EDT) Culture No growth at day 1 03/29/2025 8:58 AM EDT [facility] Swab (Nares and Anabella Rectal) Non-blood Collection / Unknown 03/28/2025 5:49 AM EDT 03/28/2025 6:10 AM EDT Narrative [facility] - 03/29/2025 8:58 AM EDT This test was developed and its performance characteristics determined by the [facility]. Although the media is FDA-approved, it is not FDA-approved for all specimen types submitted. The FDA has determined that such clearance or approval is not necessary. This test is used for surveillance purposes. It should not be regarded as investigational or for research. The [facility] is certified under the Clinical Laboratory Improvement Amendments of 1988 (CLIA-88) as qualified to perform high complexity clinical laboratory testing. Luis Alfredo Hodges MD LAB MICROBIOLOGY - GENE RAL ORDERABLES Final Result Performing Organization Address City/[facility]/ZIP Co de Phone Number [facility] [address] [place] [address] * SEND FER MESSAGE (03/28/2025 3:27 AM EDT) Urine Urine specimen obtained by clean catch procedure / Unknown Non-blood Collection / Unknown 03/28/2025 3:27 AM EDT 03/28/2025 3:40 AM EDT Clay Cal Jacek LAB URINE ORDERABLES Final R esult Performing Organization Address [facility] de Phone Number [facility] [address] [place] [address] * Urine Culture (03/28/2025 3:27 AM EDT) Culture >=100,000 CFU/mL Mixed urogenital, fecal, or skin thaddeus present. 03/29/2025 5:58 AM EDT [facility] Urine Urine specimen obtained by clean catch procedure / Unknown Non-blood Collection / Unknown 03/28/2025 3:27 AM EDT 03/28/2025 3:40 AM EDT Clay Read LAB MICROBIOLOGY - GENERAL O RDERABLES Final Result Performing Organization Address [facility] de Phone Number [facility] [address] [place] [address] * Urinalysis Microscopic Examination (03/28/2025 3:27 AM EDT) Urine Urine specimen obtained by clean catch procedure / Unknown Non-blood Collection / Unknown 03/28/2025 3:27 AM EDT 03/28/2025 3:40 AM EDT Clay Read LAB URINE ORDERABLES Final R esult Performing Organization Address [facility] de Phone Number [facility] [address] [place] [address] * Urine Hunter Panel (03/28/2025 3:27 AM EDT) Extra Sent for Culture 03/28/2025 4:12 AM EDT [facility] Urine Urine specimen obtained by clean catch procedure / Unknown Non-blood Collection / Unknown 03/28/2025 3:27 AM EDT 03/28/2025 3:40 AM EDT Clay Read DO LAB URINE ORDERABLES Final R esult [facility] [address] [place] [address] * (ABNORMAL) Urinalysis with reflex microscopic (Culture NOT Included) (03/28/2025 3:27 AM EDT) Color, Urine Yellow LAB URINALYSIS - AUTOMATED METHOD 03/28/2025 4:12 AM EDT [facility] Clarity, Urine Cloudy LAB URINALYSIS - AUTOMATED METHOD 03/28/2025 4:12 AM EDT [facility] Spec Lambert, Urine 1.025 1.005 - 1.030 LAB URINALYSIS - AUTOMATED METHOD 03/28/2025 4:12 AM EDT [facility] pH, Urine 6.0 5.0 - 8.0 LAB URINALYSIS - AUTOMATED METHOD 03/28/2025 4:12 AM EDT [facility] Protein, Urine 100(A) Negative mg/dL LAB URINALYSIS - AUTOMATED METHOD 03/28/2025 4:12 AM EDT [facility] Glucose, Urine Negative Negative mg/dL LAB URINALYSIS - AUTOMATED METHOD 03/28/2025 4:12 AM EDT [facility] Ketones, Urine Negative Negative mg/dL LAB URINALYSIS - AUTOMATED METHOD 03/28/2025 4:12 AM EDT [facility] Blood, Urine Large(A) Negative LAB URINALYSIS - AUTOMATED METHOD 03/28/2025 4:12 AM EDT [facility] Bilirubin, Urine Negative Negative LAB URINALYSIS - AUTOMATED METHOD 03/28/2025 4:12 AM EDT [facility] Urobilinogen, Urine 0.2 0.2 to 1.0 mg/dL LAB URINALYSIS - AUTOMATED METHOD 03/28/2025 4:12 AM EDT [facility] Leukocytes, Urine Moderate(A) Negative LAB URINALYSIS - AUTOMATED METHOD 03/28/2025 4:12 AM EDT [facility] Nitrite, Urine Positive(A) Negative LAB URINALYSIS - AUTOMATED METHOD 03/28/2025 4:12 AM EDT [facility] RBC, Urine Unable to estimate due to obscuring WBC's (UNEWBC) 0 to 3 /HPF 03/28/2025 4:12 AM EDT [facility] Comment:This result was prev iously suppressed from the chart. WBC, Urine >50(A) 0 to 5 /HPF 03/28/2025 4:12 AM EDT [facility] Comment:This result was prev iously suppressed from the chart. Squamous Epithelial Cells Unable to estimate due to obscuring WBC's (UNEWBC) 0 to 5 /HPF 03/28/2025 4:12 AM EDT [facility] Comment:This result was prev iously suppressed from the chart. Hyaline Casts Unable to estimate due to obscuring WBC's (UNEWBC) 0 to 5 /LPF 03/28/2025 4:12 AM EDT [facility] Comment:This result was prev iously suppressed from the chart. Bacteria, Urine Present Negative 03/28/2025 4:12 AM EDT [facility] Comment:This result was prev iously suppressed from the chart. Urine Urine specimen obtained by clean catch procedure / Unknown Non-blood Collection / Unknown 03/28/2025 3:27 AM EDT 03/28/2025 3:40 AM EDT Narrative [facility] - 03/28/2025 4:12 AM EDT Performed by manual method us Clay Read DO LAB URINE ORDERABLES Final R esult Performing Organization Address City/State/[facility] Co de Phone Number [facility] [address] [place] [address] * CT Lumbar Spine wo IV Contrast (03/28/2025 2:22 AM EDT) Anatomical Region Laterality Modality Spine, L-spine Computed Tomogra phy Impressions 03/28/2025 3:43 AM EDT There is T7 superior endplate compression deformity with approximate 30% vertebral body height loss, minimal osseous retropulsion and no significant associated canal stenosis. This appearance is new compared with radiograph dated 10/13/2024, however is ultimately age indeterminate and may represent acute or subacute injury. No acute fracture or traumatic malalignment of the cervical and lumbar spine. Incidentally noted obstructive left ureteral calculi with upstream hydroureteronephrosis. The ureteral calculus measures up to around 4 mm. CRITICAL RESULT: No. COMMUNICATION: Per this written report. Preliminary report signed by Gerardo Benedict MD on 03/28/2025 3:03 AM By electronically signing this report, I, the attending physician, attest that I have personally reviewed the images/data for the above examination(s) and agree with the final edited report. Drafted by Gerardo Benedict MD on 03/28/2025 2:56 AM Final report signed by Cole Carballo MD on 03/28/2025 3:43 AM Narrative 03/28/2025 3:43 AM EDT CLINICAL INDICATION: fx TECHNIQUE: Imaging of the entire cervical, thoracic, and lumbar spine was performed, using spiral technique, without contrast administration. Reformatted images in the coronal and sagittal planes were generated from the axial data set to facilitate diagnostic accuracy and/or surgical planning. Total DLP (Dose-Length Product): 1311.58 mGy.cm (accession [id number]), 1311.58 mGy.cm (accession [id number]), 327.76 mGy.cm (accession [id number]). Please note: The reported value represents the total of one or more individual components during the CT acquisition on this date and at this time, and as such, the same value may appear in more than one CT report depending on the interpreting/reporting physicians. COMPARISON: 03/27/[address] FINDINGS: Cervical Spine: Vertebrae: No acute fracture. Multilevel degenerative changes. Significant calcification of the anterior ligament throughout the majority of the cervical spine. Alignment: No acute traumatic malalignment. Straightening of the cervical lordosis. Paraspinal Soft Tissues: No paraspinal hematoma. Lung Apices: No pneumothorax at the lung apices. Thoracic Spine: Vertebrae: There is a superior endplate compression deformity with mild osseous retropulsion at T7 and no significant associated canal stenosis. There is approximately 30% vertebral body height loss. Postprocedural changes following prior T11-T12 vertebroplasty, T2-T3 laminectomies old appearing compression deformity at T3. Multilevel degenerative changes. Alignment: No acute traumatic malalignment. Paraspinal Soft Tissues: No paraspinal hematoma. Lumbar Spine: Vertebrae: No acute fracture. Multilevel degenerative changes. Similar compression deformities of L2. Alignment: No acute traumatic malalignment. Paraspinal Soft Tissues: No paraspinal hematoma. Incidentally noted left hydroureteronephrosis with ureteral obstructive calculi measuring up to around 4 mm. Procedure Note Cole Carballo MD - 03/28/2025 CLINICAL INDICATION: fx TECHNIQUE: Imaging of the entire cervical, thoracic, and lumbar spine was performed,using spiral technique, without contrast administration. Reformattedimages in the coronal and sagittal planes were generated from the axialdata set to facilitate diagnostic accuracy and/or surgical planning. Total DLP (Dose-Length Product): 1311.58 mGy.cm (accession [id number]),1311.58 mGy.cm (accession [id number]), 327.76 mGy.cm (accession [id number]).Please note: The reported value represents the total of one or moreindividual components during the CT acquisition on this date and at thistime, and as such, the same value may appear in more than one CT reportdepending on the interpreting/reporting physicians. COMPARISON: 03/27/[address] FINDINGS: Cervical Spine: Vertebrae: No acute fracture. Multilevel degenerative changes. Significantcalcification of the anterior ligament throughout the majority of thecervical spine. Alignment: No acute traumatic malalignment. Straightening of the cervicallordosis. Paraspinal Soft Tissues: No paraspinal hematoma. Lung Apices: No pneumothorax at the lung apices. Thoracic Spine: Vertebrae: There is a superior endplate compression deformity with mildosseous retropulsion at T7 and no significant associated canal stenosis.There is approximately 30% vertebral body height loss. Postproceduralchanges following prior T11-T12 vertebroplasty, T2-T3 laminectomies oldappearing compression deformity at T3. Multilevel degenerative changes. Alignment: No acute traumatic malalignment. Paraspinal Soft Tissues: No paraspinal hematoma. Lumbar Spine: Vertebrae: No acute fracture. Multilevel degenerative changes. Similarcompression deformities of L2. Alignment: No acute traumatic malalignment. Paraspinal Soft Tissues: No paraspinal hematoma. Incidentally noted lefthydroureteronephrosis with ureteral obstructive calculi measuring up toaround 4 mm. IMPRESSION: There is T7 superior endplate compression deformity with approximate 30%vertebral body height loss, minimal osseous retropulsion and nosignificant associated canal stenosis. This appearance is new comparedwith radiograph dated 10/13/2024, however is ultimately age indeterminateand may represent acute or subacute injury. No acute fracture or traumatic malalignment of the cervical and lumbarspine. Incidentally noted obstructive left ureteral calculi with upstreamhydroureteronephrosis. The ureteral calculus measures up to around 4 mm. CRITICAL RESULT: No. COMMUNICATION: Per this written report. Preliminary report signed by Gerardo Benedict MD on 03/28/2025 3:03 AM By electronically signing this report, I, the attending physician, attestthat I have personally reviewed the images/data for the aboveexamination(s) and agree with the final edited report. Drafted by Gerardo Benedict MD on 03/28/2025 2:56 AM Final report signed by Cole Carballo MD on 03/28/2025 3:43 AM us Clay Read DO IMG CT PROCEDURES Final Resu lt * CT Thoracic Spine wo IV Contrast (03/28/2025 2:22 AM EDT) Anatomical Region Laterality Modality Spine, T-spine Computed Tomogra phy Impressions 03/28/2025 3:43 AM EDT There is T7 superior endplate compression deformity with approximate 30% vertebral body height loss, minimal osseous retropulsion and no significant associated canal stenosis. This appearance is new compared with radiograph dated 10/13/2024, however is ultimately age indeterminate and may represent acute or subacute injury. No acute fracture or traumatic malalignment of the cervical and lumbar spine. Incidentally noted obstructive left ureteral calculi with upstream hydroureteronephrosis. The ureteral calculus measures up to around 4 mm. CRITICAL RESULT: No. COMMUNICATION: Per this written report. Preliminary report signed by Gerardo Benedict MD on 03/28/2025 3:03 AM By electronically signing this report, I, the attending physician, attest that I have personally reviewed the images/data for the above examination(s) and agree with the final edited report. Drafted by Gerardo Benedict MD on 03/28/2025 2:56 AM Final report signed by Cole Carballo MD on 03/28/2025 3:43 AM Narrative 03/28/2025 3:43 AM EDT CLINICAL INDICATION: fx TECHNIQUE: Imaging of the entire cervical, thoracic, and lumbar spine was performed, using spiral technique, without contrast administration. Reformatted images in the coronal and sagittal planes were generated from the axial data set to facilitate diagnostic accuracy and/or surgical planning. Total DLP (Dose-Length Product): 1311.58 mGy.cm (accession [id number]), 1311.58 mGy.cm (accession [id number]), 327.76 mGy.cm (accession [id number]). Please note: The reported value represents the total of one or more individual components during the CT acquisition on this date and at this time, and as such, the same value may appear in more than one CT report depending on the interpreting/reporting physicians. COMPARISON: 03/27/[address] FINDINGS: Cervical Spine: Vertebrae: No acute fracture. Multilevel degenerative changes. Significant calcification of the anterior ligament throughout the majority of the cervical spine. Alignment: No acute traumatic malalignment. Straightening of the cervical lordosis. Paraspinal Soft Tissues: No paraspinal hematoma. Lung Apices: No pneumothorax at the lung apices. Thoracic Spine: Vertebrae: There is a superior endplate compression deformity with mild osseous retropulsion at T7 and no significant associated canal stenosis. There is approximately 30% vertebral body height loss. Postprocedural changes following prior T11-T12 vertebroplasty, T2-T3 laminectomies old appearing compression deformity at T3. Multilevel degenerative changes. Alignment: No acute traumatic malalignment. Paraspinal Soft Tissues: No paraspinal hematoma. Lumbar Spine: Vertebrae: No acute fracture. Multilevel degenerative changes. Similar compression deformities of L2. Alignment: No acute traumatic malalignment. Paraspinal Soft Tissues: No paraspinal hematoma. Incidentally noted left hydroureteronephrosis with ureteral obstructive calculi measuring up to around 4 mm. Procedure Note Cole Carballo MD - 03/28/2025 CLINICAL INDICATION: fx TECHNIQUE: Imaging of the entire cervical, thoracic, and lumbar spine was performed,using spiral technique, without contrast administration. Reformattedimages in the coronal and sagittal planes were generated from the axialdata set to facilitate diagnostic accuracy and/or surgical planning. Total DLP (Dose-Length Product): 1311.58 mGy.cm (accession [id number]),1311.58 mGy.cm (accession [id number]), 327.76 mGy.cm (accession [id number]).Please note: The reported value represents the total of one or moreindividual components during the CT acquisition on this date and at thistime, and as such, the same value may appear in more than one CT reportdepending on the interpreting/reporting physicians. COMPARISON: 03/27/[address] FINDINGS: Cervical Spine: Vertebrae: No acute fracture. Multilevel degenerative changes. Significantcalcification of the anterior ligament throughout the majority of thecervical spine. Alignment: No acute traumatic malalignment. Straightening of the cervicallordosis. Paraspinal Soft Tissues: No paraspinal hematoma. Lung Apices: No pneumothorax at the lung apices. Thoracic Spine: Vertebrae: There is a superior endplate compression deformity with mildosseous retropulsion at T7 and no significant associated canal stenosis.There is approximately 30% vertebral body height loss. Postproceduralchanges following prior T11-T12 vertebroplasty, T2-T3 laminectomies oldappearing compression deformity at T3. Multilevel degenerative changes. Alignment: No acute traumatic malalignment. Paraspinal Soft Tissues: No paraspinal hematoma. Lumbar Spine: Vertebrae: No acute fracture. Multilevel degenerative changes. Similarcompression deformities of L2. Alignment: No acute traumatic malalignment. Paraspinal Soft Tissues: No paraspinal hematoma. Incidentally noted lefthydroureteronephrosis with ureteral obstructive calculi measuring up toaround 4 mm. IMPRESSION: There is T7 superior endplate compression deformity with approximate 30%vertebral body height loss, minimal osseous retropulsion and nosignificant associated canal stenosis. This appearance is new comparedwith radiograph dated 10/13/2024, however is ultimately age indeterminateand may represent acute or subacute injury. No acute fracture or traumatic malalignment of the cervical and lumbarspine. Incidentally noted obstructive left ureteral calculi with upstreamhydroureteronephrosis. The ureteral calculus measures up to around 4 mm. CRITICAL RESULT: No. COMMUNICATION: Per this written report. Preliminary report signed by Gerardo Benedict MD on 03/28/2025 3:03 AM By electronically signing this report, I, the attending physician, homaat I have personally reviewed the images/data for the aboveexamination(s) and agree with the final edited report. Drafted by Gerardo Benedict MD on 03/28/2025 2:56 AM Final report signed by Cole Carballo MD on 03/28/2025 3:43 AM us Clay Read DO IMG CT PROCEDURES Final Resu lt * CT Cervical Spine wo IV Contrast (03/28/2025 2:22 AM EDT) Anatomical Region Laterality Modality Spine, C-spine Computed Tomogra phy Impressions 03/28/2025 3:43 AM EDT There is T7 superior endplate compression deformity with approximate 30% vertebral body height loss, minimal osseous retropulsion and no significant associated canal stenosis. This appearance is new compared with radiograph dated 10/13/2024, however is ultimately age indeterminate and may represent acute or subacute injury. No acute fracture or traumatic malalignment of the cervical and lumbar spine. Incidentally noted obstructive left ureteral calculi with upstream hydroureteronephrosis. The ureteral calculus measures up to around 4 mm. CRITICAL RESULT: No. COMMUNICATION: Per this written report. Preliminary report signed by Gerardo Benedict MD on 03/28/2025 3:03 AM By electronically signing this report, I, the attending physician, attest that I have personally reviewed the images/data for the above examination(s) and agree with the final edited report. Drafted by Gerardo Benedict MD on 03/28/2025 2:56 AM Final report signed by Cole Carballo MD on 03/28/2025 3:43 AM Narrative 03/28/2025 3:43 AM EDT CLINICAL INDICATION: fx TECHNIQUE: Imaging of the entire cervical, thoracic, and lumbar spine was performed, using spiral technique, without contrast administration. Reformatted images in the coronal and sagittal planes were generated from the axial data set to facilitate diagnostic accuracy and/or surgical planning. Total DLP (Dose-Length Product): 1311.58 mGy.cm (accession [id number]), 1311.58 mGy.cm (accession [id number]), 327.76 mGy.cm (accession [id number]). Please note: The reported value represents the total of one or more individual components during the CT acquisition on this date and at this time, and as such, the same value may appear in more than one CT report depending on the interpreting/reporting physicians. COMPARISON: 03/27/[address] FINDINGS: Cervical Spine: Vertebrae: No acute fracture. Multilevel degenerative changes. Significant calcification of the anterior ligament throughout the majority of the cervical spine. Alignment: No acute traumatic malalignment. Straightening of the cervical lordosis. Paraspinal Soft Tissues: No paraspinal hematoma. Lung Apices: No pneumothorax at the lung apices. Thoracic Spine: Vertebrae: There is a superior endplate compression deformity with mild osseous retropulsion at T7 and no significant associated canal stenosis. There is approximately 30% vertebral body height loss. Postprocedural changes following prior T11-T12 vertebroplasty, T2-T3 laminectomies old appearing compression deformity at T3. Multilevel degenerative changes. Alignment: No acute traumatic malalignment. Paraspinal Soft Tissues: No paraspinal hematoma. Lumbar Spine: Vertebrae: No acute fracture. Multilevel degenerative changes. Similar compression deformities of L2. Alignment: No acute traumatic malalignment. Paraspinal Soft Tissues: No paraspinal hematoma. Incidentally noted left hydroureteronephrosis with ureteral obstructive calculi measuring up to around 4 mm. Procedure Note Cole Carballo MD - 03/28/2025 CLINICAL INDICATION: fx TECHNIQUE: Imaging of the entire cervical, thoracic, and lumbar spine was performed,using spiral technique, without contrast administration. Reformattedimages in the coronal and sagittal planes were generated from the axialdata set to facilitate diagnostic accuracy and/or surgical planning. Total DLP (Dose-Length Product): 1311.58 mGy.cm (accession [id number]),1311.58 mGy.cm (accession [id number]), 327.76 mGy.cm (accession [id number]).Please note: The reported value represents the total of one or moreindividual components during the CT acquisition on this date and at thistime, and as such, the same value may appear in more than one CT reportdepending on the interpreting/reporting physicians. COMPARISON: 03/27/[address] FINDINGS: Cervical Spine: Vertebrae: No acute fracture. Multilevel degenerative changes. Significantcalcification of the anterior ligament throughout the majority of thecervical spine. Alignment: No acute traumatic malalignment. Straightening of the cervicallordosis. Paraspinal Soft Tissues: No paraspinal hematoma. Lung Apices: No pneumothorax at the lung apices. Thoracic Spine: Vertebrae: There is a superior endplate compression deformity with mildosseous retropulsion at T7 and no significant associated canal stenosis.There is approximately 30% vertebral body height loss. Postproceduralchanges following prior T11-T12 vertebroplasty, T2-T3 laminectomies oldappearing compression deformity at T3. Multilevel degenerative changes. Alignment: No acute traumatic malalignment. Paraspinal Soft Tissues: No paraspinal hematoma. Lumbar Spine: Vertebrae: No acute fracture. Multilevel degenerative changes. Similarcompression deformities of L2. Alignment: No acute traumatic malalignment. Paraspinal Soft Tissues: No paraspinal hematoma. Incidentally noted lefthydroureteronephrosis with ureteral obstructive calculi measuring up toaround 4 mm. IMPRESSION: There is T7 superior endplate compression deformity with approximate 30%vertebral body height loss, minimal osseous retropulsion and nosignificant associated canal stenosis. This appearance is new comparedwith radiograph dated 10/13/2024, however is ultimately age indeterminateand may represent acute or subacute injury. No acute fracture or traumatic malalignment of the cervical and lumbarspine. Incidentally noted obstructive left ureteral calculi with upstreamhydroureteronephrosis. The ureteral calculus measures up to around 4 mm. CRITICAL RESULT: No. COMMUNICATION: Per this written report. Preliminary report signed by Gerardo Benedict MD on 03/28/2025 3:03 AM By electronically signing this report, I, the attending physician, attestthat I have personally reviewed the images/data for the aboveexamination(s) and agree with the final edited report. Drafted by Gerardo Benedict MD on 03/28/2025 2:56 AM Final report signed by Cole Carballo MD on 03/28/2025 3:43 AM Clay Read DO IMG CT PROCEDURES Final Resu lt * Free T4, Plasma (03/28/2025 1:14 AM EDT) Free T4, Plasma 1.2 0.8 - 1.7 ng/dL 03/28/2025 8:29 AM EDT [facility] Blood Venous blood specimen / Unknown Venipuncture / Unknown 03/28/2025 1:14 AM EDT 03/28/2025 1:34 AM EDT Luis Alfredo Hodges MD LAB BLOOD ORDERABLES Fi nal Result Performing Organization Address [facility] de Phone Number [facility] [address] [place] [address] * (ABNORMAL) TSH Reflex FT4 (03/28/2025 1:14 AM EDT) Thyroid Stimulating Hormone, Plasma 7.49(H) 0.40 - 4.20 uIU/mL 03/28/2025 7:47 AM EDT [facility] Blood Venous blood specimen / Unknown Venipuncture / Unknown 03/28/2025 1:14 AM EDT 03/28/2025 1:34 AM EDT Luis Alfredo Hodges MD LAB BLOOD ORDERABLES Fi nal Result Performing Organization Address [facility] de Phone Number [facility] [address] [place] [address] * (ABNORMAL) Vitamin D 1,25 dihydroxy (03/28/2025 1:14 AM EDT) VITAMIN D, 1, 25-DIHYDROXY 108(H) 19.9 - 79.3 pg/mL 03/31/2025 5:01 AM EDT [facility] Blood Venous blood specimen / Unknown Venipuncture / Unknown 03/28/2025 1:14 AM EDT 03/28/2025 1:34 AM EDT Clay Read DO LAB BLOOD ORDERABLES Final R esult Performing Organization Address City/[facility] Co de Phone Number [facility] [address] [place] [address] * Vitamin D 25 Hydroxy (03/28/2025 1:14 AM EDT) Vitamin D 25 Hydroxy 32.2 20.0 - 80.0 ng/mL 03/28/2025 5:05 AM EDT [facility] Blood Venous blood specimen / Unknown Venipuncture / Unknown 03/28/2025 1:14 AM EDT 03/28/2025 1:34 AM EDT Narrative [facility] - 03/28/2025 5:05 AM EDT Testing performed on Flynn Acid Treater, standardized against NIST SRM 2972. When testing samples from patients whose predominant form of vitamin D is vitamin D2, such as patients receiving vitamin D2 supplementation, results that are subtherapeutic should be confirmed with another method, such as LC-MS/MS, before being used for patient management. Vitamin D, 25-Hydroxy reference range, age 18 years and up: Deficiency: <12 ng/mL Insufficiency: 12 to 19 ng/mL Sufficiency: 20 to 80 ng/mL Possible toxicity: >100 ng/mL us Clay Read DO LAB BLOOD ORDERABLES Final R esult [facility] [address] [place] [address] * (ABNORMAL) CBC w/diff (03/28/2025 1:14 AM EDT) WBC Count 6.86 3.70 - 10.30 10*3/uL LAB HEMATOLOGY METHOD 03/28/2025 1:39 AM EDT [facility] RBC Count 4.64 3.90 - 5.20 10*6/uL LAB HEMATOLOGY METHOD 03/28/2025 1:39 AM EDT [facility] HGB 12.0 11.2 - 15.7 g/dL LAB HEMATOLOGY METHOD 03/28/2025 1:39 AM EDT [facility] HCT 38.0 34.0 - 45.0 % LAB HEMATOLOGY METHOD 03/28/2025 1:39 AM EDT [facility] Platelet Count 202 155 - 369 10*3/uL LAB HEMATOLOGY METHOD 03/28/2025 1:39 AM EDT [facility] MCV 82 79 - 98 fL LAB HEMATOLOGY METHOD 03/28/2025 1:39 AM EDT [facility] MCH 25.9(L) 26.0 - 32.0 pg LAB HEMATOLOGY METHOD 03/28/2025 1:39 AM EDT [facility] MCHC 31.6 30.7 - 35.5 g/dL LAB HEMATOLOGY METHOD 03/28/2025 1:39 AM EDT [facility] RDW 15.1(H) 11.5 - 14.5 % LAB HEMATOLOGY METHOD 03/28/2025 1:39 AM EDT [facility] MPV 10.1 8.8 - 12.5 fL LAB HEMATOLOGY METHOD 03/28/2025 1:39 AM EDT [facility] nRBC 0.0 <=0.0 per 100 WBCs LAB HEMATOLOGY METHOD 03/28/2025 1:39 AM EDT [facility] Differential Type Automated LAB HEMATOLOGY METHOD 03/28/2025 1:39 AM EDT [facility] Neutrophils % 63 % LAB HEMATOLOGY METHOD 03/28/2025 1:39 AM EDT [facility] Lymphocytes % 27 % LAB HEMATOLOGY METHOD 03/28/2025 1:39 AM EDT [facility] Monocytes % 7 % LAB HEMATOLOGY METHOD 03/28/2025 1:39 AM EDT [facility] Eosinophils % 2 % LAB HEMATOLOGY METHOD 03/28/2025 1:39 AM EDT [facility] Basophils % 0 % LAB HEMATOLOGY METHOD 03/28/2025 1:39 AM EDT [facility] Immature Granulocytes % 1 % LAB HEMATOLOGY METHOD 03/28/2025 1:39 AM EDT [facility] Neutrophils Absolute 4.37 1.60 - 6.10 10*3/uL LAB HEMATOLOGY METHOD 03/28/2025 1:39 AM EDT [facility] Lymphocytes Absolute 1.82 1.20 - 3.90 10*3/uL LAB HEMATOLOGY METHOD 03/28/2025 1:39 AM EDT [facility] Monocytes Absolute 0.45 0.30 - 0.90 10*3/uL LAB HEMATOLOGY METHOD 03/28/2025 1:39 AM EDT [facility] Eosinophils Absolute 0.10 0.00 - 0.50 10*3/uL LAB HEMATOLOGY METHOD 03/28/2025 1:39 AM EDT [facility] Basophils Absolute 0.03 0.00 - 0.10 10*3/uL LAB HEMATOLOGY METHOD 03/28/2025 1:39 AM EDT [facility] Immature Granulocytes Absolute 0.09(H) 0.00 - 0.06 10*3/uL LAB HEMATOLOGY METHOD 03/28/2025 1:39 AM EDT [facility] Blood Venous blood specimen / Unknown Venipuncture / Unknown 03/28/2025 1:14 AM EDT 03/28/2025 1:34 AM EDT [facility] - 03/28/2025 1:39 AM EDT Therapeutic decision making should be based on absolute values, rather than percentages. Clay Read DO LAB BLOOD ORDERABLES Final R esult Performing Organization Address [facility] de Phone Number [facility] [address] [place] [address] * Procalcitonin (03/28/2025 1:14 AM EDT) Procalcitonin, Plasma <0.06 <0.09 ng/mL 03/28/2025 2:14 AM EDT [facility] Blood Venous blood specimen / Unknown Venipuncture / Unknown 03/28/2025 1:14 AM EDT 03/28/2025 1:34 AM EDT Narrative [facility] - 03/28/2025 2:14 AM EDT Procalcitonin concentrations in healthy individuals are <0.09 ng/mL. Published data support the following interpretive risk assessment: An elevated procalcitonin result does not always indicate sepsis. Various non-infectious conditions are known to increase procalcitonin. Results should be considered in the context of clinical symptoms and other laboratory tests. Procalcitonin >2.0 ng/mL: Concentrations >2.0 ng/mL on the first day of ICU admission are associated with a higher risk of progression to severe sepsis and/or septic shock. The change in PCT over time may help predict 28 day mortality risk. Please consult [email or web address] for more information. Test performed at [facility]. Clay Cal Jacek LAB BLOOD ORDERABLES Final R esult Performing Organization Address [facility] Co de Phone Number [facility] [address] [place] [address] * C-Reactive protein (03/28/2025 1:14 AM EDT) CRP, Plasma 4.1 <=8.0 mg/L 03/28/2025 2:14 AM EDT [facility] Blood Venous blood specimen / Unknown Venipuncture / Unknown 03/28/2025 1:14 AM EDT 03/28/2025 1:34 AM EDT Narrative [facility] - 03/28/2025 2:14 AM EDT This CRP test is appropriate for assessment of infection, systemic inflammation and/or tissue injury. To assess cardiovascular disease risk order high sensitivity CRP (CRPH). Clay Read [facility] LAB BLOOD ORDERABLES Final R esult Performing Organization Address City/[facility] Co de Phone Number [facility] [address] [place] [address] * Phosphorus (03/28/2025 1:14 AM EDT) Phosphorus, Plasma 3.7 2.5 - 4.5 mg/dL 03/28/2025 2:14 AM EDT [facility] Blood Venous blood specimen / Unknown Venipuncture / Unknown 03/28/2025 1:14 AM EDT 03/28/2025 1:34 AM EDT Clay Read [employer] LAB BLOOD ORDERABLES Final R esult Performing Organization Address [facility] Co de Phone Number [facility] [address] [place] [address] * Magnesium (03/28/2025 1:14 AM EDT) Magnesium, Plasma 2.0 1.9 - 2.4 mg/dL 03/28/2025 2:14 AM EDT [facility] Blood Venous blood specimen / Unknown Venipuncture / Unknown 03/28/2025 1:14 AM EDT 03/28/2025 1:34 AM EDT Clay Mccall [employer] LAB BLOOD ORDERABLES Final R esult Performing Organization Address City/[facility] de Phone Number [facility] [address] [place] [address] * (ABNORMAL) CMP (03/28/2025 1:14 AM EDT) Glucose, Plasma 78 74 - 99 mg/dL 03/28/2025 2:14 AM EDT [facility] BUN, Plasma 18 8 - 23 mg/dL 03/28/2025 2:14 AM EDT [facility] Creatinine, Plasma 0.41(L) 0.60 - 1.10 mg/dL 03/28/2025 2:14 AM EDT [facility] BUN/Creatinine Ratio 44 03/28/2025 2:14 AM EDT [facility] Sodium, Plasma 141 136 - 145 mmol/L 03/28/2025 2:14 AM EDT [facility] Potassium, Plasma 3.9 3.6 - 4.9 mmol/L 03/28/2025 2:14 AM EDT [facility] Chloride, Plasma 107 97 - 107 mmol/L 03/28/2025 2:14 AM EDT [facility] CO2, Plasma 25 22 - 29 mmol/L 03/28/2025 2:14 AM EDT [facility] Anion Gap 9 6 - 16 mmol/L 03/28/2025 2:14 AM T [facility] Total Calcium, Plasma 8.2(L) 8.9 - 10.2 mg/dL 03/28/2025 2:14 AM EDT [facility] Total Protein 6.4 6.3 - 7.9 g/dL 03/28/2025 2:14 AM [facility] Albumin, Plasma 3.8 3.5 - 5.2 g/dL 03/28/2025 2:14 AM T [facility] AST, Plasma 13 10 - 35 U/L 03/28/2025 2:14 AM [facility] ALT, Plasma 7(L) 10 - 35 U/L 03/28/2025 2:14 AM [facility] Alkaline Phosphatase, Plasma 82 46 - 142 U/L 03/28/2025 2:14 AM T [facility] Total Bilirubin, Plasma <0.2(L) 0.2 - 1.1 mg/dL 03/28/2025 2:14 AM EDT [facility] eGFRcr 108.7 mL/min/1.7 3m*2 03/28/2025 2:14 AM [facility] Comment:Reported eGFRcr in m L/min/1.73m2 is based the CKD-EPI 2020 equation that does not use a race coefficient. 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 Neurogenic bladder Neurogenic bladder, NOS Recurrent UTI Urinary tract infection, site not specified Compression fracture of T3 vertebra with routine healing, subsequent encounter Cerebral palsy Unspecified infantile cerebral palsy Neurogenic bladder Neurogenic bladder, NOS Recurrent UTI Urinary tract infection, site not specified Physical debility Compression fracture of T3 vertebra (CMS/HCC) Depression Depressive disorder, not elsewhere classified documented in this encounter Admitting Diagnoses Diagnosis Hydronephrosis concurrent with and due to calculi of kidney and ureter Kidney stone Calculus of kidney Chronic suprapubic catheter (CMS/HCC) documented in this encounter Administered Medications Inactive Administered Medications - up to 3 most recent administrations Medication Order MAR Action Action Date Dose Rate Site cefTRIAXone (Rocephin) 2 g in sodium chloride 0.9% 100 mL IVPB (vial adapter required) 2 g, Intravenous, Every 24 hours, First dose on Fri03/28/25 at 0550, Until Discontinued, Routine New Bag 03/30/2025 5:56 AM EDT 2 g 220 mL/hr New Bag 03/29/2025 5:44 AM EDT 2 g 220 mL/hr New Bag 03/28/2025 6:12 AM EDT 2 g 220 mL/hr dantrolene (Dantrium) capsule 50 mg 50 mg, Oral, 3 times daily, First dose on Fri03/28/25 at 2100, Until Discontinued, Recovery(Phase II-Outpatient)/On Unit(Inpatient) Given 03/30/2025 8:22 AM EDT 50 mg Given 03/29/2025 9:01 PM EDT 50 mg Given 03/29/2025 4:43 PM EDT 50 mg diphenhydrAMINE-zinc acetate (Benadryl) cream 1 Application Topical, 3 times daily PRN, Starting on Fri03/28/25 at 1547, Until Fri03/30/25 at 1114, Routine, itching gabapentin (Neurontin) capsule 400 mg 400 mg, Oral, 3 times daily, First dose on Fri03/29/25 at 0900, Until Discontinued, Routine Given 03/30/2025 8:21 AM EDT 400 mg Given 03/29/2025 8:48 PM EDT 400 mg Given 03/29/2025 4:43 PM EDT 400 mg heparin (porcine) injection 5,000 Units 5,000 Units, Subcutaneous, Every 8 hours scheduled, First dose on Fri03/28/25 at 0950, Until Discontinued, Routine, Holding - Preprocedure Given 03/28/2025 11:06 AM EDT 5,000 Units Left Upper Arm (Back) HYDROmorphone (Dilaudid) injection 0.25 mg 0.25 mg, Intravenous, Every 4 hours PRN, Starting on Fri03/28/25 at 0514, Until Fri03/30/25 at 1114, Routine, severe breakthrough pain, stop after 48h Given 03/28/2025 10:46 AM EDT 0.25 mg HYDROmorphone (Dilaudid) injection 0.25 mg 0.25 mg, Intravenous, Every 10 min PRN, 4 doses, Starting on Fri03/28/25 at 1157, Until Fri03/28/25 at 1645, Routine, Recovery (Phase I only), pain score of 6-10 out of 10 Given 03/28/2025 4:08 PM EDT 0.25 mg HYDROmorphone (Dilaudid) injection 0.5 mg 0.5 mg, Intravenous, Once, 1 dose, On Fri03/28/25 at 0055, STAT Given 03/28/2025 1:13 AM EDT 0.5 mg HYDROmorphone (Dilaudid) injection 0.5 mg 0.5 mg, Intravenous, Once, 1 dose, On Fri03/28/25 at 0445, STAT Given 03/28/2025 4:52 AM EDT 0.5 mg hydrOXYzine pamoate (Vistaril) capsule 25 mg 25 mg, Oral, Every 6 hours PRN, Starting on Fri03/28/25 at 1833, Until Fri03/30/25 at 1114, Routine, anxiety Given 03/29/2025 4:42 AM EDT 25 mg Given 03/28/2025 6:59 PM EDT 25 mg ketorolac (Toradol) injection 15 mg 15 mg, Intravenous, Once, 1 dose, On Fri03/28/25 at 0055, STAT Given 03/28/2025 1:14 AM EDT 15 mg ketorolac (Toradol) injection 15 mg 15 mg, Intravenous, Every 6 hours PRN, Starting on Fri03/28/25 at 0513, Until Fri03/30/25 at 1114, Routine, moderate pain, severe pain Given 03/28/2025 5:48 AM EDT 15 mg lactated Ringer's infusion 1,000 mL 1,000 mL, Intravenous, Once (Bolus), 1 dose, On Fri03/28/25 at 0055, STAT New Bag 03/28/2025 1:13 AM EDT 1,000 mL levETIRAcetam (Keppra) tablet 500 mg 500 mg, Oral, 2 times daily, First dose on Fri03/28/25 at 2100, Until Discontinued, Routine, Recovery(Phase II-Outpatient)/On Unit(Inpatient) Given 03/30/2025 8:21 AM EDT 500 mg Given 03/29/2025 8:48 PM EDT 500 mg Given 03/29/2025 9:11 AM EDT 500 mg levothyroxine (Synthroid, Levoxyl) tablet 200 mcg 200 mcg, Oral, Every morning, First dose on Fri03/28/25 at 0600, Until Discontinued, Routine Given 03/30/2025 5:57 AM EDT 200 mcg Given 03/29/2025 5:45 AM EDT 200 mcg Given 03/28/2025 6:12 AM EDT 200 mcg linaCLOtide (Linzess) capsule 145 mcg 145 mcg, Oral, Daily before breakfast, First dose on Fri03/29/25 at 0730, Until Discontinued, Routine Given 03/30/2025 6:38 AM EDT 145 mcg Given 03/29/2025 6:46 AM EDT 145 mcg melatonin tablet 3 mg 3 mg, Oral, Nightly PRN, Starting on Fri03/28/25 at 0514, Until Fri03/30/25 at 1114, Routine, sleep Given 03/28/2025 8:15 PM EDT 3 mg mirabegron ER (Myrbetriq) tablet 50 mg 50 mg, Oral, Daily, First dose (after last modification) on Fri03/29/25 at 0900, Until Discontinued, Routine, Recovery(Phase II-Outpatient)/On Unit(Inpatient) Given 03/30/2025 8:21 AM EDT 50 mg Given 03/29/2025 9:11 AM EDT 50 mg mupirocin (Bactroban) 2 % ointment 1 Application Each Nostril, 2 times daily, 10 doses, First dose on Fri03/28/25 at 2100, Last dose on Fri04/02/25 at 0900, Routine Given 03/30/2025 8:22 AM EDT 1 Application Given 03/29/2025 8:48 PM EDT 1 Application Given 03/29/2025 9:11 AM EDT 1 Application ondansetron (Zofran) 4 MG/2ML injection - Pyxis Override Pull 1 dose, Starting on Fri03/28/25 at 0104, Until Fri03/28/25 at 0110 ondansetron (Zofran) 4 MG/5ML solution 4 mg 4 mg, Oral, Every 6 hours PRN, Starting on Fri03/28/25 at 0514, Until Fri03/30/25 at 1114, Routine, nausea, vomiting ondansetron (Zofran) injection 4 mg 4 mg, Intravenous, Once, 1 dose, On Fri03/28/25 at 0055, STAT Given 03/28/2025 1:10 AM EDT 4 mg ondansetron (Zofran) injection 4 mg 4 mg, Intravenous, Every 6 hours PRN, Starting on Fri03/28/25 at 0514, Until Fri03/30/25 at 1114, Routine, vomiting, nausea Given 03/28/2025 7:02 PM EDT 4 mg Given 03/28/2025 7:43 AM EDT 4 mg ondansetron (Zofran) injection 4 mg 4 mg, Intravenous, Once, 1 dose, On Fri03/28/25 at 1025, Routine, Holding - Preprocedure Given 03/28/2025 11:02 AM EDT 4 mg ondansetron ODT (Zofran-ODT) disintegrating tablet 4 mg 4 mg, Oral, Every 6 hours PRN, Starting on Fri03/28/25 at 0514, Until Fri03/30/25 at 1114, Routine, nausea, vomiting Given 03/29/2025 4:40 AM EDT 4 mg oxyCODONE (Roxicodone) immediate release tablet 5 mg 5 mg, Oral, Every 6 hours PRN, Starting on Fri03/28/25 at 0513, Until Fri03/30/25 at 1114, Routine, moderate pain, severe pain Given 03/29/2025 4:41 AM EDT 5 mg Given 03/28/2025 1:49 PM EDT 5 mg Given 03/28/2025 7:43 AM EDT 5 mg phenazopyridine (Pyridium) tablet 100 mg 100 mg, Oral, 3 times daily with meals, 6 doses, First dose on Fri03/28/25 at 0830, Last dose on Fri03/29/25 at 1730, Routine Given 03/29/2025 4:43 PM EDT 10 0 mg Given 03/29/2025 9:11 AM EDT 100 mg Given 03/28/2025 6:35 PM EDT 100 mg polyethylene glycol (Miralax) packet 17 g 17 g, Oral, Daily, First dose on Fri03/28/25 at 0900, Until Discontinued, Routine Given 03/30/2025 8:22 AM EDT 17 g Given 03/29/2025 9:11 AM EDT 17 g sertraline (Zoloft) tablet 200 mg 200 mg, Oral, Daily, First dose (after last modification) on Fri03/29/25 at 0900, Until Discontinued, Routine, Recovery(Phase II-Outpatient)/On Unit(Inpatient) Given 03/30/2025 8:21 AM EDT 200 mg Given 03/29/2025 9:11 AM EDT 200 mg sodium chloride 0.9 % flush 10 mL 10 mL, Intravenous, Every 12 hours, First dose on Fri03/28/25 at 0515, Until Discontinued, Routine Given 03/28/2025 5:48 AM EDT 10 mL sodium chloride 0.9 % flush 10 mL 10 mL, Intravenous, Every 12 hours, First dose (after last modification) on Fri03/28/25 at 1715, Until Discontinued, Routine Given 03/30/2025 4:51 AM EDT 10 mL Given 03/29/2025 4:44 PM EDT 10 mL Given 03/29/2025 4:45 AM EDT 10 mL sodium chloride 0.9 % flush 10 mL 10 mL, Intravenous, As needed, Starting on Fri03/28/25 at 1232, Until Fri03/30/25 at 1114, Routine, line care sodium chloride 0.9 % infusion 75 mL/hr, Intravenous, Continuous, Starting on Fri03/28/25 at 0515, Until Fri03/30/25 at 1114, Routine New Bag 03/29/2025 8:55 PM EDT 75 mL/ hr 75 mL/hr New Bag 03/29/2025 2:32 PM EDT 75 mL/hr 75 mL/hr Rate/Dose Verify 03/28/2025 8:00 PM EDT 75 mL/hr 75 mL/h r tamsulosin (Flomax) 24 hr capsule 0.4 mg 0.4 mg, Oral, Daily with dinner, First dose on Fri03/28/25 at 1800, Until Discontinued, Routine Given 03/29/2025 4:44 PM EDT 0.4 mg Given 03/28/2025 6:35 PM EDT 0.4 mg tamsulosin (Flomax) 24 hr capsule 0.8 mg 0.8 mg, Oral, Once, 1 dose, On Fri03/28/25 at 0055, Routine Given 03/28/2025 1:13 AM EDT 0.8 mg tiZANidine (Zanaflex) tablet 4 mg 4 mg, Oral, 2 times daily, First dose on Fri03/28/25 at 2100, Until Discontinued, Routine Given 03/30/2025 8:21 AM EDT 4 mg Given 03/29/2025 8:48 PM EDT 4 mg Given 03/29/2025 9:11 AM EDT 4 mg traZODone (Desyrel) tablet 50 mg 50 mg, Oral, Nightly, First dose on Fri03/28/25 at 2100, Until Discontinued, Routine Given 03/29/2025 8:48 PM EDT 50 mg Given 03/28/2025 8:15 PM EDT 50 mg vancomycin in dextrose (Vancocin) IVPB 1,000 mg 1,000 mg (rounded from 918 mg = 15 mg/kg 61.2 kg Order-specific weight), Intravenous, Once, 1 dose, On Fri03/28/25 at 0950, at 200 mL/hr, STAT New Bag 03/28/2025 10:20 AM EDT 1,000 mg 200 mL/hr documented in this encounter Active and Recently Administered Medications Times are shown in EDT. Scheduled Medication Order 03/28/2025 03/29/2025 03/30/2025 cefTRIAXone (Rocephin) 2 g in sodium chloride 0.9% 100 mL IVPB (vial adapter required) 2 g, Intravenous, Every 24 hours, First dose on Fri03/28/25 at 0550, Until Discontinued, Routine 0612 (New Bag - Provider: Tito Richardson RN)0700 (Stopped - Provider: Guillermo Rodriguez RN) 0544 (New Bag - Provider: America Patel) 0556 (New Bag - Provider: America Patel) dantrolene (Dantrium) capsule 50 mg 50 mg, Oral, 3 times daily, First dose on Fri03/28/25 at 2100, Until Discontinued, Recovery(Phase II-Outpatient)/On Unit(Inpatient) 2016 (Given - Provider: America Patel) 0913 (Given - Provider: Delia Singer RN)1643 (Given - Provider: Delia Singer RN)210 (Given - Provider: America Patel) 0822 (Given - Provider: Delia Singer RN) gabapentin (Neurontin) capsule 400 mg 400 mg, Oral, 3 times daily, First dose on Fri03/29/25 at 0900, Until Discontinued, Routine 0911 (Given - Provider: Delia Singer RN)1643 (Given - Provider: Delia Singer, HUBERT)2048 (Given - Provider: America Patel) 0821 (Given - Provider: Delia Singer, RN) heparin (porcine) injection 5,000 Units (CANCELED) 5,000 Units, Subcutaneous, Every 8 hours scheduled, First dose on Fri03/28/25 at 0950, Until Discontinued, Routine, Holding - Preprocedure 1106 (Given - Provider: Didi Leach RN)1116 (NOV Hold - Provider: Automatic Transfer Provider - Reason: Patient in procedure)1200 (MAR Unhold - Provider: Automatic Transfer Provider) HYDROmorphone (Dilaudid) injection 0.5 mg (COMPLETED) 0.5 mg, Intravenous, Once, 1 dose, On Fri03/28/25 at 0055, STAT 0113 (Given - Provider: Tito Richardson RN) HYDROmorphone (Dilaudid) injection 0.5 mg (COMPLETED) 0.5 mg, Intravenous, Once, 1 dose, On Fri03/28/25 at 0445, STAT 0452 (Given - Provider: Kailyn Daniel) ketorolac (Toradol) injection 15 mg (COMPLETED) 15 mg, Intravenous, Once, 1 dose, On Fri03/28/25 at 0055, STAT 0114 (Given - Provider: Tito Richardson RN) lactated Ringer's infusion 1,000 mL (COMPLETED) 1,000 mL, Intravenous, Once (Bolus), 1 dose, On Fri03/28/25 at 0055, STAT 0113 (New Bag - Provider: Tito Richardson RN)0319 (Stopped - Provider: Tito Richardson RN) levETIRAcetam (Keppra) tablet 500 mg 500 mg, Oral, 2 times daily, First dose on Fri03/28/25 at 2100, Until Discontinued, Routine, Recovery(Phase II-Outpatient)/On Unit(Inpatient) 2014 (Given - Provider: America Patel) 0911 (Given - Provider: Delia Singer RN)2048 (Given - Provider: America Patel) 0821 (Given - Provider: Delia Singer RN) levothyroxine (Synthroid, Levoxyl) tablet 200 mcg 200 mcg, Oral, Every morning, First dose on Fri03/28/25 at 0600, Until Discontinued, Routine 0612 (Given - Provider: Tito Richardson RN)1116 (NOV Hold - Provider: Automatic Transfer Provider - Reason: Patient in procedure)1418 (NOV Unhold - Provider: Junior Baird APRN) 0545 (Given - Provider: America Patel) 0557 (Given - Provider: America Patel) linaCLOtide (Linzess) capsule 145 mcg 145 mcg, Oral, Daily before breakfast, First dose on Fri03/29/25 at 0730, Until Discontinued, Routine 0646 (Given - Provider: America Patel) 0638 (Given - Provider: America Patel) mirabegron ER (Myrbetriq) tablet 50 mg 50 mg, Oral, Daily, First dose (after last modification) on Fri03/29/25 at 0900, Until Discontinued, Routine, Recovery(Phase II-Outpatient)/On Unit(Inpatient) 0911 (Given - Provider: Delia Singer RN) 0821 (Given - Provider: Delia Singer RN) mupirocin (Bactroban) 2 % ointment 1 Application Each Nostril, 2 times daily, 10 doses, First dose on Fri03/28/25 at 2100, Last dose on Fri04/02/25 at 0900, Routine 2014 (Given - Provider: America Patel) 09 (Given - Provider: Delia Singer RN)2047 (Given - Provider: America Patel) 08 (Given - Provider: Delia Singer, HUBERT) ondansetron (Zofran) injection 4 mg (COMPLETED) 4 mg, Intravenous, Once, 1 dose, On Fri03/28/25 at 0055, STAT 0110 (Given - Provider: Tito Richardson RN) ondansetron (Zofran) injection 4 mg (COMPLETED) 4 mg, Intravenous, Once, 1 dose, On Fri03/28/25 at 1025, Routine, Holding - Preprocedure 1102 (Given - Provider: Didi Leach RN) phenazopyridine (Pyridium) tablet 100 mg 100 mg, Oral, 3 times daily with meals, 6 doses, First dose on Fri03/28/25 at 0830, Last dose on Fri03/29/25 at 1730, Routine 0928 (Not Given - Provider: Guillermo Rodriguez RN - Reason: NPO)1116 (MAR Hold - Provider: Automatic Transfer Provider - Reason: Patient in procedure)1230 (Dose Auto Held - Provider: Automatic Transfer Provider)1419 (MAR Unhold - Provider: Junior Baird, JEREMI)1835 (Given - Provider: Natali Steven RN) 0911 (Given - Provider: Delia Singer RN)1200 (Not Given - Provider: Delia Singer RN - Reason: Hold for condition: must add comment - Comment: asleep)1643 (Given - Provider: Delia Singer RN) polyethylene glycol (Miralax) packet 17 g 17 g, Oral, Daily, First dose on Fri03/28/25 at 0900, Until Discontinued, Routine 0928 (Not Given - Provider: Guillermo Rodriguez RN - Reason: NPO)1116 (NOV Hold - Provider: Automatic Transfer Provider - Reason: Patient in procedure)1419 (NOV Unhold - Provider: Junior Baird APRN) 0911 (Given - Provider: Delia Singer RN) 0822 (Given - Provider: Delia Singer RN) prochlorperazine (Compazine) injection 2.5 mg 2.5 mg, Intravenous, Once, 1 dose, On Fri03/28/25 at 1700, Routine 1749 (Not Given - Provider: Natali Steven RN - Reason: Patient/family refused) sertraline (Zoloft) tablet 200 mg 200 mg, Oral, Daily, First dose (after last modification) on Fri03/29/25 at 0900, Until Discontinued, Routine, Recovery(Phase II-Outpatient)/On Unit(Inpatient) 0911 (Given - Provider: Delia Singer RN) 0821 (Given - Provider: Delia Singer RN) sodium chloride 0.9 % flush 10 mL (CANCELED) 10 mL, Intravenous, Every 12 hours, First dose on Fri03/28/25 at 0515, Until Discontinued, Routine 0548 (Given - Provider: Tito Richardson RN)1116 (NOV Hold - Provider: Automatic Transfer Provider - Reason: Patient in procedure)1234 (NOV Unhold - Provider: Junior Baird APRN) sodium chloride 0.9 % flush 10 mL(Linked Group 1) 10 mL, Intravenous, Every 12 hours, First dose (after last modification) on Fri03/28/25 at 1715, Until Discontinued, Routine 1903 (Given - Provider: Natali Steven RN) 0445 (Given - Provider: America Patel)1644 (Given - Provider: Delia Singer RN) 0451 (Given - Provider: America Patel) tamsulosin (Flomax) 24 hr capsule 0.4 mg 0.4 mg, Oral, Daily with dinner, First dose on Fri03/28/25 at 1800, Until Discontinued, Routine 1116 (NOV Hold - Provider: Automatic Transfer Provider - Reason: Patient in procedure)1235 (NOV Unhold - Provider: Junior Baird, [employer])1835 (Given - Provider: Natali Steven, HUBERT) 1644 (Given - Provider: Delia Singer, HUBERT) tamsulosin (Flomax) 24 hr capsule 0.8 mg (COMPLETED) 0.8 mg, Oral, Once, 1 dose, On Fri03/28/25 at 0055, Routine 0113 (Given - Provider: Tito Richardson, HUBERT) tiZANidine (Zanaflex) tablet 4 mg 4 mg, Oral, 2 times daily, First dose on Fri03/28/25 at 2100, Until Discontinued, Routine 2014 (Given - Provider: America Patel) 09 (Given - Provider: Delia Singer, HUBERT)2047 (Given - Provider: America Patel) 08 (Given - Provider: Delia Singer, HUBERT) traZODone (Desyrel) tablet 50 mg 50 mg, Oral, Nightly, First dose on Fri03/28/25 at 2100, Until Discontinued, Routine 2014 (Given - Provider: America Patel) 2047 (Given - Provider: America Patel) vancomycin in dextrose (Vancocin) IVPB 1,000 mg (COMPLETED) 1,000 mg (rounded from 918 mg = 15 mg/kg 61.2 kg Order-specific weight), Intravenous, Once, 1 dose, On Fri03/28/25 at 0950, at 200 mL/hr, STAT 1020 (New Bag - Provider: Didi Leach, HUBERT)1120 (Due: Stopped - Provider: Didi Leach RN) Continuous Medication Order 03/28/2025 03/29/2025 03/30/2025 sodium chloride 0.9 % infusion 75 mL/hr, Intravenous, Continuous, Starting on Fri03/28/25 at 0515, Until Fri03/30/25 at 1114, Routine 0548 (New Bag - Provider: Tito Richardson, HUBERT)1501 (Continued from OR - Provider: Lizzy Koo, HUBERT)2000 (Rate/Dose Verify - Provider: America Patel) 1432 (New Bag - Provider: Delia Singer, HUBERT)5 (New Bag - Provider: America Patel) PRN Medication Order 03/28/2025 03/29/2025 03/30/2025 diphenhydrAMINE-zinc acetate (Benadryl) cream 1 Application Topical, 3 times daily PRN, Starting on Fri03/28/25 at 1547, Until Fri03/30/25 at 1114, Routine, itching HYDROmorphone (Dilaudid) injection 0.25 mg 0.25 mg, Intravenous, Every 4 hours PRN, Starting on Fri03/28/25 at 0514, Until Fri03/30/25 at 1114, Routine, severe breakthrough pain, stop after 48h 1046 (Given - Provider: Didi Leach RN)1116 (NOV Hold - Provider: Automatic Transfer Provider - Reason: Patient in procedure)1645 (NOV Unhold - Provider: Automatic Transfer Provider) HYDROmorphone (Dilaudid) injection 0.25 mg (CANCELED) 0.25 mg, Intravenous, Every 10 min PRN, 4 doses, Starting on Fri03/28/25 at 1157, Until Fri03/28/25 at 1645, Routine, Recovery (Phase I only), pain score of 6-10 out of 10 1608 (Given - Provider: Lizzy Koo, HUBERT) hydrOXYzine pamoate (Vistaril) capsule 25 mg 25 mg, Oral, Every 6 hours PRN, Starting on Fri03/28/25 at 1833, Until Fri03/30/25 at 1114, Routine, anxiety 1859 (Given - Provider: Natali Steven RN) 0442 (Given - Provider: America Patel) iohexol (OMNIPaque) 300 MG/ML injection (CANCELED) As needed, Starting on Fri03/28/25 at 1144, Until Fri03/28/25 at 1159, Routine, Intraprocedure 1144 (Given - Provider: Yahaira Leslie MD - Comment: ureter left) ketorolac (Toradol) injection 15 mg 15 mg, Intravenous, Every 6 hours PRN, Starting on Fri03/28/25 at 0513, Until Fri03/30/25 at 1114, Routine, moderate pain, severe pain 0548 (Given - Provider: Tito Richardson RN)1116 (NOV Hold - Provider: Automatic Transfer Provider - Reason: Patient in procedure)1234 ([facility] Unhold - Provider: Junior Baird APRN) melatonin tablet 3 mg 3 mg, Oral, Nightly PRN, Starting on Fri03/28/25 at 0514, Until Fri03/30/25 at 1114, Routine, sleep 1116 (NOV Hold - Provider: Automatic Transfer Provider - Reason: Patient in procedure)123 ([facility] Unhold - Provider: Junior Baird APRN)2014 (Given - Provider: America Patel) ondansetron (Zofran) 4 MG/5ML solution 4 mg(Linked Group 2) 4 mg, Oral, Every 6 hours PRN, Starting on Fri03/28/25 at 0514, Until Fri03/30/25 at 1114, Routine, nausea, vomiting 0743 (See Alternative - Provider: Guillermo Rodriguez RN)111 ([facility] Hold - Provider: Automatic Transfer Provider - Reason: Patient in procedure)1234 ([facility] Unhold - Provider: Junior Baird APRN)1902 (See Alternative - Provider: Natali Steven, HUBERT) 0440 (See Alternative - Provider: America Patel) ondansetron (Zofran) injection 4 mg(Linked Group 2) 4 mg, Intravenous, Every 6 hours PRN, Starting on Fri03/28/25 at 0514, Until Fri03/30/25 at 1114, Routine, vomiting, nausea 0743 (Given - Provider: Guillermo Rodriguez RN)111 ([facility] Hold - Provider: Automatic Transfer Provider - Reason: Patient in procedure)1234 ([facility] Unhold - Provider: Junior Baird APRN)1902 (Given - Provider: Natali Steven, HUBERT) 0440 (See Alternative - Provider: America Patel) ondansetron ODT (Zofran-ODT) disintegrating tablet 4 mg(Linked Group 2) 4 mg, Oral, Every 6 hours PRN, Starting on Fri03/28/25 at 0514, Until Fri03/30/25 at 1114, Routine, nausea, vomiting 0743 (See Alternative - Provider: Guillermo Rodriguez RN)111 (NOV Hold - Provider: Automatic Transfer Provider - Reason: Patient in procedure)1234 (NOV Unhold - Provider: Junior Baird, JEREMI)1902 (See Alternative - Provider: Natali Steven RN) 0440 (Given - Provider: America Patel) oxyCODONE (Roxicodone) immediate release tablet 5 mg 5 mg, Oral, Every 6 hours PRN, Starting on Fri03/28/25 at 0513, Until Fri03/30/25 at 1114, Routine, moderate pain, severe pain 0743 (Given - Provider: Guillermo Rodriguez RN)1116 (NOV Hold - Provider: Automatic Transfer Provider - Reason: Patient in procedure)1234 (NOV Unhold - Provider: Junior Baird APRN)1349 (Given - Provider: Lizzy Koo RN) 0441 (Given - Provider: America Patel) sodium chloride 0.9 % flush 10 mL(Linked Group 1) 10 mL, Intravenous, As needed, Starting on Fri03/28/25 at 1232, Until Fri03/30/25 at 1114, Routine, line care Linked Groups Order Group 1: sodium chloride 0.9 % flush 10 mLJump to med 10 mL, Intravenous, Every 12 hours, First dose (after last modification) on Fri03/28/25 at 1715, Until Discontinued, Routine And sodium chloride 0.9 % flush 10 mLJump to med 10 mL, Intravenous, As needed, Starting on Fri03/28/25 at 1232, Until Fri03/30/25 at 1114, Routine, line care Group 2: ondansetron ODT (Zofran-ODT) disintegrating tablet 4 mgJump to med 4 mg, Oral, Every 6 hours PRN, Starting on Fri03/28/25 at 0514, Until Fri03/30/25 at 1114, Routine, nausea, vomiting Or ondansetron (Zofran) injection 4 mgJump to med 4 mg, Intravenous, Every 6 hours PRN, Starting on Fri03/28/25 at 0514, Until Fri03/30/25 at 1114, Routine, vomiting, nausea Or ondansetron (Zofran) 4 MG/5ML solution 4 mgJump to med 4 mg, Oral, Every 6 hours PRN, Starting on Fri25 at 0514, Until Fri03/30/25 at 1114, Routine, nausea, vomiting documented in this encounter Additional Health Concerns Infection Onset Date Last Indicated Resolved Time 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 Assessment Noted Time PHQ-9 Depression Total Score: 13 024 1:09 PM EDT A fall risk assessment has been complete d for the patient 12/22/2024 2:20 PM EDT A Body Mass Index follow-up plan has been documented for the patient 03/30/2025 8:46 AM EDT documented as of this encounter 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
--- OUTSIDE RECORDS SUMMARY | 2025-03-28 10:55 | XMS_ITS | Encounter Summary ---
Author Organization [facility] Address [address] [place] [address] Care Team Providers Care Aligner Typewriter Name Role Phone Luis Henderson MD Unavailable [phone] Kasi Jacobs MD Unavailable [phone] Luis Henderson MD Primary Care Provider [phone] Maria Guadalupe Madrigal APRN Unavailable [phone] Reason for Visit * Reason Comments Kidney Stone * Auth/Cert (Routine) Specialty Diagnoses / Procedures Referred By Contac t Referred To Contact Diagnoses Hydronephrosis concurrent with and due to calculi of kidney and ureter kidney stones and chronic compression fx Luis Alfredo Hodges MD [address] [place] [address] Phone: tel: fax: [facility] S Emergency Department [address] [place] [address] Phone: tel: Referral ID Status Reason Start Date Expiration Date Visits Re quested Visits Authorized [id number] 1 1 Encounter Details Date Type Department Care Team (Late st Contact Info) Description 03/28/2025 10:55 AM EDT - 03/28/2025 12:45 PM EDT Surgery PAV S Operating Room [address] [place] [address] Yahaira Leslie MD [address] [place] [id number] CYSTOSCOPY, WITH URETERAL STENT INSERTION Surgery Details Date/Time Status Location OR Service Patient Class Case Class Case Type Trauma Case? 03/28/2025 10:55 AM Posted [facility] OR 2SOR 09 CYSTO Urology Inpatient T-Timed: to be done within 24 hours Panel 1 Procedure LRB Anes Op Region Wound Class Comments CYSTOSCOPY, WITH URETERAL STENT INSERTION Left General Class II/ Clean Contamina leodan Surgeon Surgeon Role Service Panel Yahaira Leslie MD Primary Urology 1 Barney Ramirez MD Resident - Assisting 1 documented in this encounter Social History Tobacco Use Types Packs/Day Years [...] money to buy more. Never true 03/28/20 25 Within the past 12 months, t he [...] any time in the past 12 m [facility], were you homeless or living in a usp (including now)? 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-COLD STRIP ROLLER) to steady your nerves or to get rid of a hangover? 0 03/16/2023 CAGE Questionnaire Score 0 023 Utilities Answer Date Recorded In the past 12 months has th e [employer], gas, oil, or water company threatened to shut off services in your [...] Sign Reading Time Taken Comments Blood Pressure 112/58 03/28/2025 12:45 PM EDT Pulse 84 03/28/2025 12:45 PM EDT Temperature 36.4 C (97.6 F) 03/28/2025 12:00 PM EDT Respiratory Rate 11 03/28/2025 12:45 PM EDT Oxygen Saturation 94% 03/28/2025 12:45 PM EDT Inhaled Oxygen Concentration - - Weight - - Height 167.6 cm (5' 6 ) 03/28/2025 9:46 AM EDT Body Mass Index - - documented in this encounter Functional Status * Calculated C-SSRS Risk Score (Lifetime/Recent) Answer Date of Assessment Author No Risk Indicated 03/28/2025 2:09 AM EDT Tito Richardson RN * Question Answer Date of Assessment Author 1. Wish to be (Past 1 Month) No 025 2:09 AM EDT Tito Richardson RN 2. Non-Specific Active Suici abeba Thoughts (Past 1 Month) No 03/28/2025 2:09 AM EDT Ashwin Richardson RN 6. Suicidal Behavior (Lifetime) No 2:09 AM EDT Tito Richardson RN documented as of this encounter Discharge [...] min. Calcium Antacid 500 MG chewable tablet 06/06/202 5 Calcium Carbonate-Vitamin D (calcium-vitamin D) 500-200 [...] 04/02/20 25 ciprofloxacin (Cipro) 500 MG tabletIndications:K idney stone,Recurrent UTI Take 1 tablet by mouth 2 times a day for 7 days. 5 04/11/20 25 documented as of this encounter Miscellaneous Notes * Progress Notes - Barney Ramirez MD - 03/30/2025 9:13 AM EDT [facility] Urology Inpatient Progress Note Primary Attending: [...] Total DLP (Dose-Length Product): 1311.58 mGy.cm (accession [id number]), 1311.58 mGy.cm (accession [id number]), 327.76 mGy.cm (accession [id number]). Please note: The reported value represents the [...] from the original note were not included. [id number] Jacobs Catheter Care A Jacobs catheter, also [...] weak. Last Reviewed Date: 2024 00:00:00 ?? 0189-6597 [employer]. All rights reserved. This information is not intended as a substitute for professional medical care. Always follow your healthcare professional's instructions. * Progress Notes - Naresh Barros RN - 03/30/2025 8:01 AM EDT Case Management Discharge Note Meme Chavarria 64 y.o. female CSN: [id number] Admission: 03/28/2025 12:22 AM Primary Problem: Hydronephrosis concurrent with and due to calculi of kidney and ureter Primary Slip Sheeter: Primary Caregiver: Self Assistance Available at Discharge: Current Outpatient/Agency/Support Group: long-term acute care facility Housing Circumstances-Z Codes: Patient Referred to Financial or Community Resources: Discharge Facility/Level of Care Needs: Patient's Choice of Community Agency(s): Patient/Family Anticipated Services at Transition: Patient/Family Anticipated Services at Transition: skilled nursing case manager DME/Equipment Needed after Discharge: Equipment Currently Used at Home: wheelchair, manual, other (see comments) (suprapubic cath) Readmission Within the Last 30 Days: Readmission Within the Last 30 Days: no previous admission in last 30 days Medicare Documentation: Follow-up: Chang Burroughs MD [address] [place] [address] [facility] [address] Wing [address] [facility] [address] Discharge Transportation: Transportation Anticipated: medical transport, agency Follow Up Transport: Additional Comments: Pt is returning back to [facility] in [place] via beside stretcher. Naresh Barros, RN * Ashley LopezROULA - Edu Ceja RN - 03/30/2025 7:53 AM EDT Images from the original note were not included. 53575 Having a Ureteral Stent A ureteral stent [...] symptoms. Last Reviewed Date: 2024 00:00:00 ?? 6339-6284 [employer]. All rights reserved. This information is not intended as a substitute for professional medical care. Always follow your healthcare professional's instructions. * Discharge Summary - Junior Baird APRN - 03/30/2025 7:40 AM EDT Hospitalization Admit Date/Time: 03/28/2025 12:22 AM Admitting Attending: Luis Alfredo Hodges Discharge Date: 03/30/2025 Discharge Attending Physician: Bina Jain MD PCP name and Address: Luis Henderson MD [address] / [place] [address] Referring provider name and address: Chang Burroughs MD [address] [place] [address] [place] [address] Chief Concern, Brief History of Present Illness, [...] following day inpatient. Patient will return to exercise physiologist certified care facility. Left Ureteral Stone UTI Left [...] Your Medications These medications were sent to [facility] - [address] [place] [address], [place] [address] cefadroxil 1 g tablet naloxone 4 mg/0.1 [...] by Advanced Practice Provider (KEAGAN). * Ashley Stacey - Junior Baird APRN - 03/30/2025 7:27 AM EDT Images from the original note were not included. [address] Discharge Instructions: Bladder Training with a Suprapubic [...] out. Last Reviewed Date: 2024 00:00:00 ?? 6950-6083 [employer]. All rights reserved. This information is not intended as a substitute for professional medical care. Always follow your healthcare professional's instructions. * [facility] Junior Baird APRN - 03/30/2025 7:27 AM EDT Images from the original note were not included. 85139 Identifying Kidney Stones There are four general [...] future. Last Reviewed Date: 2024 00:00:00 ?? 1728-1990 [employer]. All rights reserved. This information is not intended as a substitute for professional medical care. Always follow your healthcare professional's instructions. * Ashley LopezMALISSA - Junior Baird APRN - 03/30/2025 7:27 AM EDT Images from the original note were not included. 58469 Understanding Kidney Stones Your kidneys are eddy-shaped [...] fever. Last Reviewed Date: 2024 00:00:00 ?? 0314-6244 [employer]. All rights reserved. This information is not intended as a substitute for professional medical care. Always follow your healthcare professional's instructions. * [facility] - Junior Baird APRN - 03/30/2025 7:27 [...] the video go to this web address: [email or web address] Or, scan this QR code with your smart phone Last Reviewed Date: 2020 00:00:00 ?? 7904-4869 [employer]. All rights reserved. This information is not [...] the video go to this web address: [email or web address] Or, scan this QR code with your smart phone ?? [facility] [facility] * Delia Mora RN - 03/29/2025 3:14 PM EDT Images from the original note were not included. 04857 Preventing a Surgical Site Infection A risk [...] of infection. ? Controlled body temperature. A mamuc-uljq-lsuijf temperature during or after surgery prevents oxygen [...] and water or with an alcohol-based hand vp genetic before and after caring for you. Don?t [...] away. Last Reviewed Date: 2024 00:00:00 ?? 0047-9525 [employer]. All rights reserved. This information is not intended as a substitute for professional medical care. Always follow your healthcare professional's instructions. * [facility] - Delia Singer RN - 03/29/2025 3:14 PM EDT Images from the original note were not included. 66271 Treating Kidney Stones: Ureteroscopic Stone Removal Ureteroscopic [...] incision. Last Reviewed Date: 2024 00:00:00 ?? 5079-8302 [employer]. All rights reserved. This information is not intended as a substitute for professional medical care. Always follow your healthcare professional's instructions. * [facility] - Delia Singer RN - 03/29/2025 3:14 PM EDT Images from the original note were not included. [id number] Retrograde Pyelogram What is a retrograde pyelogram? [...] your healthcare provider of all prescription and wmkc-xhk-buciazy medicines and herbal supplements that you're taking. [...] procedure Last Reviewed Date: 2023 00:00:00 ?? 2585-4996 [employer]. All rights reserved. This information is not intended as a substitute for professional medical care. Always follow your healthcare professional's instructions. * Delia Mora RN - 03/29/2025 3:13 PM EDT Images [...] at . Nights, weekends and holidays, call [facility] at and ask for the Urology Resident ironing pleater. Call 339 if you have any of the following ? A lot of pain or vomiting ? Urine becomes bright tucker red or has many clots of blood in it ? Shaking chills ? A large amount of bleeding ? Cannot urinate for 10 to 12 hours and have lower abdominal pain or bloating * Delia Mora RN - 03/29/2025 3:12 PM EDT Images from the original note were not included. 39843 Preventing Kidney Stones If you?ve had a [...] cystine. Last Reviewed Date: 2024 00:00:00 ?? 6817-0827 [employer]. All rights reserved. This information is not intended as a substitute for professional medical care. Always follow your healthcare professional's instructions. * Progress Notes - Barney Ramirez MD - 03/29/2025 10:27 AM EDT [facility] Urology Inpatient Progress Note Primary Attending: [...] [P.O.:300; I.V.:2271.3 (37.1 mL/kg); IV Piggyback:100] Out: 1999 (32.7 mL/kg) [Urine:1999 (0.9 mL/kg/hr)] Weight: 61.2 kg Suprapubic Catheter Single lumen 16 Fr. (Active) Placement Date/Time: 03/28/25318 Inserted by: Dylan AGSPAR Hand Hygiene Completed: Yes Catheter Type:Single lumen [...] Total DLP (Dose-Length Product): 1311.58 mGy.cm (accession [id number]), 1311.58 mGy.cm (accession [id number]), 327.76 mGy.cm (accession [id number]). Please note: The reported value represents the [...] Baird APRN - 03/29/2025 9:05 AM EDT [facility] Medicine Progress Note (03/29/2025) I saw and evaluated the patient with the medical/INVESTIGATOR NARCOTICS/PA student. I discussed the case with the medical/INVESTIGATOR NARCOTICS/PA student and agree with the findings and [...] is ready to return her nursing facility ([facility]). ++Review of Systems ++ Review of Systems [...] placed on 03/28. Patient will return to [facility] care facility. Left Ureteral Stone UTI Left [...] prn N- Easy to chew diet Dispo- skilled nursing care Code Status: DNR - Ok to intubate Migdalia PRITCHETT Secure chat via [email or web address] preferred 03/29/2025 * Progress Notes - Vivian Gil - 03/29/2025 9:03 AM EDT Occupational Therapy Evaluation Patient Name: Meme Chavarria Today's Date: 03/29/2025 OT Discharge Recommendations: senior living facility Equipment Recommended: Patient owns appropriate equipment [...] Recurrent UTI (03/19/2022), Seizure (CMS/HCC), Unspecified convulsions ([facility]), Vitamin B12 deficiency anemia, unspecified, and Vitamin D deficiency, unspecified. Past Surgical History Patient has a past surgical history that includes Submandibular gland excision w/ parotid duct ligation (N/A); Appendectomy (N/A); Tubal ligation (N/A); Sacral nerve stimulator placement (N/A); Anklesurgery (N/A); ir pain pump implant/ replacement; ir pain pump removal; Back surgery; and Suprapubic catheter. Precautions None Subjective I've lived in the skilled nursing for a couple of years Participants in [...] position for eating Home Living/Set-up Home Type: senior living facility Home Adaptive Equipment: Wheelchair-power, shower chair, Hospital bed, Other (Comment) (slide boardand lift) Prior Level of Function Receives Help From: Caregiver Level of Mobility: Wheelchair/Scooter Mobility Wingo: Assist with wheelchair propulsion History of Falls: [...] Mobility Bed Mobility Exam: Rolling/Turning Level of Wingo: Maximum assist (25% patient effort) Physical/Nonphysical Assist: Additional assist utilized for safety Bed Mobility Exam: Scooting/Bridging Level of Wingo: Dependent Physical/Nonphysical Assist: Additional assist utilized for [...] Eval complexity: Low OT Recommendations Discharge Destination: senior living facility Discharge Equipment: Patient owns appropriate equipment Plan Patient no longer demonstrates need for inpatient occupational therapy services. Patient to be discharged from occupational therapy. Written by Vivian Gil on 03/29/25 at 9:06 AM. * Care Plan - America Patel - 03/29/2025 12:20 AM EDT Problem: Adult Inpatient Plan of Care Goal: Plan of Care Review Outcome: Ongoing, Progressing Flowsheets (Taken 03/29/202515) Progress: improving Plan of Care Reviewed With: [...] Plan Flowsheets (Taken 03/29/202515) Current Outpatient/Agency/Support Group: retirement facility Problem: Skin Injury Risk Increased Goal: [...] Enhance Bowel Motility and Elimination Flowsheets (Taken 03/29/202515) Bowel Elimination Management: toileting offered Bowel Motility Enhancement: fluid intake encouraged Goal: Fluid and Electrolyte Balance Outcome: Ongoing, Progressing Intervention: Monitor and Manage Fluid and Electrolyte Balance Flowsheets (Taken 03/29/202515) Fluid/Electrolyte Management: fluids provided Goal: Absence of Infection Signs and Symptoms Outcome: Ongoing, Progressing Goal: Anesthesia/Sedation Recovery Outcome: Ongoing, Progressing Intervention: Optimize Anesthesia Recovery Flowsheets (Taken 03/29/202515) Safety Promotion/Fall Prevention: fall [...] Plan Flowsheets (Taken 03/28/20252018) Current Outpatient/Agency/Support Group: retirement facility Patient/Family Anticipates Transition to: long-term care facility Problem: Infection Goal: Absence of Infection Signs and Symptoms Outcome: Ongoing, Progressing Intervention: Prevent or Manage Infection Flowsheets (Taken 03/28/20252018) Fever Reduction/Comfort Measures: fluid intake increased * Progress Notes - Naresh Barros RN - 03/28/2025 2:38 PM EDT Case Management Adult Initial Progress Note Meme Chavarria 64 y.o. female CSN: [id number] Admission: 03/28/2025 12:22 AM Primary Problem: Hydronephrosis concurrent with and due to calculi of kidney and ureter Field Marketing Specialist reviewed chart and spoke with patient to complete this Initial Case Management Assessment. PCP: Luis Henderson MD Emergency Contact: Extended Emergency Contact Information Primary Emergency Contact: Germán Chavarria Mobile Relation: Spouse Outside Machinist Helper needed? No Secondary Emergency Contact: Cory Ojeda Mobile Relation: Daughter Outside Machinist Helper needed? No Insurance: Primary Visit Coverage Payer Plan Sponsor Code Group Number Group Name MEDICARE MEDICARE A & B Primary Visit Coverage Subscriber Subscriber ID Subscriber Name Subscriber SSN Subscriber Address [id number] MEME CHAVARRIA [phone] [place] [address] Secondary Visit Coverage Payer Plan Sponsor Code Group Number Group Name MEDICAID-[facility] MEDICAID TRADITIONAL Secondary Visit Coverage Subscriber Subscriber ID Subscriber Name Subscriber SSN Subscriber Address [id number] FARIDA OZ RODRIGUEZDIDonnell HERRNE [phone] [place] [address] Patient information: Primary Caregiver: Self Support System: Immediate family Daily Living Activities: Functional Status: Independent Living Arrangements: Spouse/Significant other Type of Residence: Private residence [place] [address] Current DME: Income Information: Housing Circumstances-Z Codes: Patient Referred to: Anticipated Discharge Date: tba Patient's Discharge Goal: Assistance Available at Discharge: Discharge Transport: s/o, family Follow Up Transport: Home Health / Home Infusion / Outpatient Dialysis Services: Living Will/Advance Directive/Power of Manager Audio /Guardian: Additional Comments: Naresh Barros RN * [...] plus bladder stones Surgeon: Yahaira Leslie MD Pumper Gager Surgeon: Barney Ramirez MD Intraoperative Findings: Intraoperative fluoroscopy demonstrated moderate hydro and was used to confirm proper placement of the ureteral stent. Other findings include multiple bladder stones Indications: Meme Chavarria is a 64 y.o. female with with [...] and Sports Medicine - PGY 3 Pager [phone] Ortho Trauma Pager: [phone] Ortho Recon/Spine/ Foot and Ankle Pager: [phone] * Significant Event - Barney Ramirez MD [...] 03/28/2025 5:21 AM EDTAssociated Order(s): Consult to [facility] Images from the original note were not included. Consult to [facility] Consult performed by: Luis Alfredo Hodges MD [...] 93%. Results Review {Vanishing Link Review Results :[id number] I have reviewed the latest lab and [...] Ok to intubate Dr. Luis Alfredo Hodges hydrodynamics professor Hospitalist Medicine This dictation was prepared [...] Date ANKLE SURGERY N/A Ankle Surgery from [facility] APPENDECTOMY N/A Appendectomy from [employer] [facility] BACK SURGERY IR PAIN PUMP IMPLANT/ REPLACEMENT IR PAIN PUMP REMOVAL SACRAL NERVE STIMULATOR PLACEMENT N/A Install Sacral Nerve Neurostimulator By Incision from [employer] [facility] SUBMANDIBULAR GLAND EXCISION W/ PAROTID DUCT LIGATION N/A Thyroid Surgery Sub-Total Thyroidectomy from [employer] [facility] SUPRAPUBIC CATHETER TUBAL LIGATION N/A Tubal Ligation from [employer] [3] Social History Tobacco Use Smoking status: [...] MD Consult ordered by: Clay Read DO [facility] Urology Consult Note 03/28/25 Service Requesting Consultation: [facility] ED CC: left ureteral stones, hydronephrosis HPI: Meme Chavarria is a 64 y.o. female with PMH CP, NGB s/p SPT in 04/2024, recurrent UTI presenting with left ureteral stones, hydronephrosis, and left flank pain. She presented to [facility] yesterday afternoon with left flank pain. [...] dose IV Rocephin prior to transfer to [facility]. Upon arrival, patient is AF, HDS. WBC [...] or more often as needed with 18 australian latex catheter Please flush catheter at least [...] (NEURONTIN) 400 mg, 3 times daily HYDROcodone-acetaminophen ([place]) 5-325 MG tablet Take by mouth every [...] Daily Misc. Devices misc Please discontinue Ms. Pringle's [...] dose IV Rocephin prior to transfer to [facility]. Upon arrival, patient is AF, HDS. WBC [...] decompensates Nelson Hernandez MD Urology PGY-3 Pager: [phone] [1] Past Medical History: Diagnosis Date Acute [...] bladder, unspecified Other muscle spasm Paraplegia, unspecified ([facility]/HCC) Personal history of (healed) traumatic fracture History of fracture of ankle Personal history of other diseases of urinary system History of gross hematuria Personal history of urinary (tract) infections Polyneuropathy, unspecified Postmenopausal atrophic vaginitis Recurrent UTI 03/19/2022 Rocephin 7/8 Seizure ([facility]/HCC) Unspecified convulsions ([facility]/HCC) Vitamin B12 deficiency anemia, unspecified Vitamin D deficiency, unspecified [2] Past Surgical History: Procedure Laterality Date ANKLE SURGERY N/A Ankle Surgery from [facility] [facility] APPENDECTOMY N/A Appendectomy from [employer] BACK SURGERY IR PAIN PUMP IMPLANT/ REPLACEMENT IR PAIN PUMP REMOVAL SACRAL NERVE STIMULATOR PLACEMENT N/A Install Sacral Nerve Neurostimulator By Incision from [employer] SUBMANDIBULAR GLAND EXCISION W/ PAROTID DUCT LIGATION N/A Thyroid Surgery Sub-Total Thyroidectomy from [employer] SUPRAPUBIC CATHETER TUBAL LIGATION N/A Tubal Ligation from [employer] [3] Family History Problem Relation Name Age [...] burst fx/spinal epidural abscess who presents to [facility] ED as a transfer from outside hospital [...] Tobacco: denies EtOH: denies Illicits: denies Lives: DEANNA Davis Employment: Disability REVIEW OF SYSTEMS Filled out [...] Strength Right Left C5: Shoulder abduction (Deltoid) 5/5 5/5 C5: Elbow flexion (Biceps, Brachialis) 01/10 5/5 C6: Wrist extension (ECRB, ECRL) 01/10 5/5 C7: Elbow extension (Triceps) /5 5/5 C8: Finger flexion (Pile Driving Nozzleman Strength) 5/5 5/5 T1: Finger abduction /5 4/5 Sensation Right Left Neck normal normal C5: Shoulder normal normal C6: Thumb, radial aspect hand/forearm (Radial Nerve) normal normal C7: Long finger (Median Nerve) normal normal C8: Little finger, ulnar aspect of hand/forearm (Ulnar n.) normal normal T1: Medial forearm/arm normal normal Reflexes Right Left C5: Biceps 1/4 1/4 C6: Brachioradialis inverted inverted C7: Triceps / 1/4 Lau's absent absent Motor Strength Right Left L2: Hip flexion (Iliopsoas) 3/5 3/5 L3: Knee extension (Quad) 11/10 11/10 L4: Ankle DF (TA) 11/10 11/10 L5: Great Toe DF (EHL) 11/10 11/10 S1: Ankle Pf, Foot Eversion (Peroneal longus/brevis) 11/10 11/10 S2: Great toe flexion (FHL), Knee flexion 11/10/ Sensation Right Left L2: Proximal anterior thigh Normal Normal L3: Mid anterior thigh Normal Normal L4: Medial leg/foot, great toe (Saphenous n.) Normal Normal L5: Dorsum of mid foot Normal Normal S1: Lateral leg/foot, little toe, Back of leg (Sural n.) Normal Normal Reflexes Right Left L4: Patellar 2/4 2/4 S1: Achilles 3/ 3/4 Babinski Positive Positive Clonus >10 beats, [...] Luis Fernando Fernandes MD Orthopaedic Surgery PGY-2 [facility] Orthopaedic Trauma Service Pager: [phone] Orthopaedic Recon/Spine/Foot and Ankle Service Pager: [phone] [1] Past Medical History: Diagnosis Date Acute [...] bladder, unspecified Other muscle spasm Paraplegia, unspecified ([facility]) Personal history of (healed) traumatic fracture History of fracture of ankle Personal history of other diseases of urinary system History of gross hematuria Personal history of urinary (tract) infections Polyneuropathy, unspecified Postmenopausal atrophic vaginitis Recurrent UTI 03/19/2022 Rocephin 7/8 Seizure ([facility]) Unspecified convulsions ([facility]) Vitamin B12 deficiency anemia, unspecified Vitamin D [...] or more often as needed with 18 australian latex catheter Please flush catheter at least twice per day with 50 mL normal saline with catheter tip syringe, more often if needed. May need to aspirate urine, then flush. Call uro if issues, Disp: 90 each, Rfl: [...] times a day., Disp: , Rfl: HYDROcodone-acetaminophen ([place]) 5-325 MG tablet, Take by mouth every [...] 11 Misc. Devices misc, Please discontinue Ms. Pringle's jacobs catheter. Will [...] Date ANKLE SURGERY N/A Ankle Surgery from [facility] APPENDECTOMY N/A Appendectomy from [facility] BACK SURGERY IR PAIN PUMP IMPLANT/ REPLACEMENT IR PAIN PUMP REMOVAL SACRAL NERVE STIMULATOR PLACEMENT N/A Install Sacral Nerve Neurostimulator By Incision from [employer] SUBMANDIBULAR GLAND EXCISION W/ PAROTID DUCT LIGATION N/A Thyroid Surgery Sub-Total Thyroidectomy from [employer] SUPRAPUBIC CATHETER TUBAL LIGATION N/A Tubal Ligation from [employer] [5] Family History Problem Relation Name Age [...] suprapubic catheter in place [facility] of [facility]. At [facility] a CT abdomen and pelvis done which showed a 6 mm and a 2 mm stone in her left ureter as well as hydronephrosis of the left kidney. Prompting her to be transferred to [facility] today. Also seen on the CT abdomen [...] so severe that she was sent to [facility] before being sent to [facility]. Patient History Past Medical History[1] Surgical History[2] [...] motor subscore is 6. Comments: Left sided [place] Palsy Patient is able to move the [...] Diagnosis: nephrolithiasis, hydronephrosis, pyelonephritis, compression fracture of [id number], Sepsis In order to fully explore the [...] bladder, unspecified Other muscle spasm Paraplegia, unspecified ([facility]/HCC) Personal history of (healed) traumatic fracture History of fracture of ankle Personal history of other diseases of urinary system History of gross hematuria Personal history of urinary (tract) infections Polyneuropathy, unspecified Postmenopausal atrophic vaginitis Recurrent UTI 03/19/2022 Rocephin 7/ Seizure ([facility]) Unspecified convulsions ([facility]) Vitamin B12 deficiency anemia, unspecified Vitamin D deficiency, unspecified [2] Past Surgical History: Procedure Laterality Date ANKLE SURGERY N/A Ankle Surgery from [employer] APPENDECTOMY N/A Appendectomy from [employer] BACK SURGERY IR PAIN PUMP IMPLANT/ REPLACEMENT IR PAIN PUMP REMOVAL SACRAL NERVE STIMULATOR PLACEMENT N/A Install Sacral Nerve Neurostimulator By Incision from [employer] SUBMANDIBULAR GLAND EXCISION W/ PAROTID DUCT LIGATION N/A Thyroid Surgery Sub-Total Thyroidectomy from [employer] SUPRAPUBIC CATHETER TUBAL LIGATION N/A Tubal Ligation from [employer] [3] Family History Problem Relation Name Age [...] EDT Presents to the ER transfer from [facility] or 6mm and 2mm kidney stones Ieft ureter,UTI. Also was found to have T7 compression fx. Hx of cp, paraplegia, neurogenic bladder/suprapubic catheter. Transferred for urology. Received Tylenol 1 gm, Rocephin 1 gram, Robaxin, Zofran 4mg, Oxycodone 5mg. documented in this encounter Plan of Treatment Upcoming Encounters Date Type Department Care Team (Late st Contact Info) Description 07/14/2025 8:45 AM EST Appointment [facility] Ultrasound [address] [place] [address] 07/14/2025 10:50 AM EST Office Visit Medical Office Building Urology [address], [address] [place] [phone] Zoie Restrepo, [employer] [address] [facility] [address] [place] [address] 10/03/2025 11:40 AM EST Office [facility] [address] [place] [phone] Maria Guadalupe Madrigla, [employer] [address] [place] [phone] Scheduled Referrals Name Type Priority Associated Diagnoses [...] - 99 mg/dL 03/30/2025 3:06 AM EDT [facility] BUN, Plasma 6(L) 8 - 23 mg/dL 03/30/2025 3:06 AM EDT [facility] Creatinine, Plasma 0.27(L) 0.60 - 1.10 mg/dL 03/30/2025 3:06 AM EDT [facility] BUN/Creatinine Ratio 03/30/2025 3:06 AM EDT [facility] Sodium, Plasma 142 136 - 145 mmol/L 03/30/2025 3:06 AM EDT [facility] Potassium, Plasma 3.1(L) 3.6 - 4.9 mmol/L 03/30/2025 3:06 AM EDT [facility] Chloride, Plasma 110(H) 97 - 107 mmol/L 03/30/2025 3:06 AM EDT [facility] CO2, Plasma 22 22 - 29 mmol/L 03/30/2025 3:06 AM EDT [facility] Anion Gap 10 6 - 16 mmol/L 03/30/2025 3:06 AM EDT [facility] Total Calcium, Plasma 8.3(L) 8.9 - 10.2 mg/dL 03/30/2025 3:06 AM EDT [facility] eGFRcr 120.2 mL/min/1.7 3m*2 03/30/2025 3:06 AM EDT [facility] Comment:Reported eGFRcr in m L/min/1.73m2 is based the CKD-EPI 2020 equation that does not use a race coefficient. Blood Venous blood specimen / Unknown Venipuncture / Unknown 03/30/2025 2:35 AM EDT 03/30/2025 2:42 AM EDT Luis Alfredo Hodges MD LAB BLOOD ORDERABLES nal Result [facility] [address] [place] [address] * (ABNORMAL) CBC and Differential (03/30/2025 2:35 AM EDT) WBC Count 5.30 3.70 - 10.30 10*3/uL LAB HEMATOLOGY METHOD 03/30/2025 2:47 AM EDT [facility] RBC Count 4.27 3.90 - 5.20 10*6/uL LAB HEMATOLOGY METHOD 03/30/2025 2:47 AM EDT [facility] HGB 11.0(L) 11.2 - 15.7 g/dL LAB HEMATOLOGY METHOD 03/30/2025 2:47 AM EDT [facility] HCT 35.2 34.0 - 45.0 % LAB HEMATOLOGY METHOD 03/30/2025 2:47 AM EDT [facility] Platelet Count 148(L) 155 - 369 10*3/uL LAB HEMATOLOGY METHOD 03/30/2025 2:47 AM EDT [facility] MCV 82 79 - 98 fL LAB HEMATOLOGY METHOD 03/30/2025 2:47 AM EDT [facility] MCH 25.8(L) 26.0 - 32.0 pg LAB HEMATOLOGY METHOD 03/30/2025 2:47 AM EDT [facility] MCHC 31.3 30.7 - 35.5 g/dL LAB HEMATOLOGY METHOD 03/30/2025 2:47 AM EDT [facility] RDW 15.1(H) 11.5 - 14.5 % LAB HEMATOLOGY METHOD 03/30/2025 2:47 AM EDT [facility] MPV 9.2 8.8 - 12.5 fL LAB HEMATOLOGY METHOD 03/30/2025 2:47 AM EDT [facility] nRBC 0.0 <=0.0 per 100 WBCs LAB HEMATOLOGY METHOD 03/30/2025 2:47 AM EDT [facility] Differential Type Automated LAB HEMATOLOGY METHOD 03/30/2025 2:47 AM EDT [facility] Neutrophils % 66 % LAB HEMATOLOGY METHOD 03/30/2025 2:47 AM EDT [facility] Lymphocytes % 23 % LAB HEMATOLOGY METHOD 03/30/2025 2:47 AM EDT [facility] Monocytes % 6 % LAB HEMATOLOGY METHOD 03/30/2025 2:47 AM EDT [facility] Eosinophils % 3 % LAB HEMATOLOGY METHOD 03/30/2025 2:47 AM EDT [facility] Basophils % 1 % LAB HEMATOLOGY METHOD 03/30/2025 2:47 AM EDT [facility] Immature Granulocytes % 1 % LAB HEMATOLOGY METHOD 03/30/2025 2:47 AM EDT [facility] Neutrophils Absolute 3.54 1.60 - 6.10 10*3/uL LAB HEMATOLOGY METHOD 03/30/2025 2:47 AM EDT [facility] Lymphocytes Absolute 1.22 1.20 - 3.90 10*3/uL LAB HEMATOLOGY METHOD 03/30/2025 2:47 AM EDT [facility] Monocytes Absolute 0.33 0.30 - 0.90 10*3/uL LAB HEMATOLOGY METHOD 03/30/2025 2:47 AM EDT [facility] Eosinophils Absolute 0.14 0.00 - 0.50 10*3/uL LAB HEMATOLOGY METHOD 03/30/2025 2:47 AM EDT [facility] Basophils Absolute 0.03 0.00 - 0.10 10*3/uL LAB HEMATOLOGY METHOD 03/30/2025 2:47 AM EDT [facility] Immature Granulocytes Absolute 0.04 0.00 - [...] ORDERABLES Fi nal Result [facility] [address] [place] [address] * Magnesium, Plasma (03/30/2025 2:35 AM EDT) Magnesium, Plasma 2.0 1.9 - 2.4 mg/dL 03/30/2025 3:06 AM EDT [facility] Blood Venous blood specimen / Unknown Venipuncture / Unknown 03/30/2025 2:35 AM EDT 03/30/2025 2:42 AM EDT Luis Alfredo Hodges MD LAB BLOOD ORDERABLES Fi nal Result [facility] [address] [place] [address] * Phosphorus, Plasma (03/30/2025 2:35 AM EDT) Phosphorus, Plasma 3.8 2.5 - 4.5 mg/dL 03/30/2025 3:06 AM EDT [facility] Blood Venous blood specimen / Unknown Venipuncture / Unknown 03/30/2025 2:35 AM EDT 03/30/2025 2:42 AM EDT Luis Alfredo Hodges MD LAB BLOOD ORDERABLES Fi nal Result [facility] [address] [place] [address] * (ABNORMAL) Basic metabolic panel (03/29/2025 2:51 AM EDT) Glucose, Plasma 87 74 - 99 mg/dL 03/29/2025 5:08 AM EDT [facility] BUN, Plasma 12 8 - 23 mg/dL 03/29/2025 5:08 AM EDT [facility] Creatinine, Plasma 0.30(L) 0.60 - 1.10 mg/dL 03/29/2025 5:08 AM EDT [facility] BUN/Creatinine Ratio 40 03/29/2025 5:08 AM EDT [facility] Sodium, Plasma 141 136 - 145 mmol/L 03/29/2025 5:08 AM EDT [facility] Potassium, Plasma 3.8 3.6 - 4.9 mmol/L 03/29/2025 5:08 AM EDT [facility] Chloride, Plasma 110(H) 97 - 107 mmol/L 03/29/2025 5:08 AM EDT [facility] CO2, Plasma 24 22 - 29 mmol/L 03/29/2025 5:08 AM EDT [facility] Anion Gap 7 6 - 16 mmol/L 03/29/2025 5:08 AM EDT [facility] Total Calcium, Plasma 8.0(L) 8.9 - 10.2 mg/dL 03/29/2025 5:08 AM EDT [facility] eGFRcr 117.2 mL/min/1.7 3m*2 03/29/2025 5:08 AM EDT [facility] Comment:Reported eGFRcr in m L/min/1.73m2 is based the CKD-EPI 2020 equation that does not use a race coefficient. Blood Venous blood specimen / Unknown Venipuncture / Unknown 03/29/2025 2:51 AM EDT 03/29/2025 4:37 AM EDT Luis Alfredo Hodges MD LAB BLOOD ORDERABLES Fi nal Result [facility] [address] [place] [address] * (ABNORMAL) CBC and Differential (03/29/2025 2:51 AM EDT) WBC Count 5.04 3.70 - 10.30 10*3/uL LAB HEMATOLOGY METHOD 03/29/2025 4:41 AM EDT [facility] RBC Count 4.24 3.90 - 5.20 10*6/uL LAB HEMATOLOGY METHOD 03/29/2025 4:41 AM EDT [facility] HGB 10.7(L) 11.2 - 15.7 g/dL LAB HEMATOLOGY METHOD 03/29/2025 4:41 AM EDT [facility] HCT 35.2 34.0 - 45.0 % LAB HEMATOLOGY METHOD 03/29/2025 4:41 AM EDT [facility] Platelet Count 172 155 - 369 10*3/uL LAB HEMATOLOGY METHOD 03/29/2025 4:41 AM EDT [facility] MCV 83 79 - 98 fL LAB HEMATOLOGY METHOD 03/29/2025 4:41 AM EDT [facility] MCH 25.2(L) 26.0 - 32.0 pg LAB HEMATOLOGY METHOD 03/29/2025 4:41 AM EDT [facility] MCHC 30.4(L) 30.7 - 35.5 g/dL LAB HEMATOLOGY METHOD 03/29/2025 4:41 AM EDT [facility] RDW 15.0(H) 11.5 - 14.5 % LAB HEMATOLOGY METHOD 03/29/2025 4:41 AM EDT [facility] MPV 10.0 8.8 - 12.5 fL LAB HEMATOLOGY METHOD 03/29/2025 4:41 AM EDT [facility] nRBC 0.0 <=0.0 per 100 WBCs LAB HEMATOLOGY METHOD 03/29/2025 4:41 AM EDT [facility] Differential Type Automated LAB HEMATOLOGY METHOD 03/29/2025 4:41 AM EDT [facility] Neutrophils % 67 % LAB HEMATOLOGY METHOD 03/29/2025 4:41 AM EDT [facility] Lymphocytes % 22 % LAB HEMATOLOGY METHOD 03/29/2025 4:41 AM EDT [facility] Monocytes % 7 % LAB HEMATOLOGY METHOD 03/29/2025 4:41 AM EDT [facility] Eosinophils % 2 % LAB HEMATOLOGY METHOD 03/29/2025 4:41 AM EDT [facility] Basophils % 1 % LAB HEMATOLOGY METHOD 03/29/2025 4:41 AM EDT [facility] Immature Granulocytes % 1 % LAB HEMATOLOGY METHOD 03/29/2025 4:41 AM EDT [facility] Neutrophils Absolute 3.37 1.60 - 6.10 10*3/uL LAB HEMATOLOGY METHOD 03/29/2025 4:41 AM EDT [facility] Lymphocytes Absolute 1.10(L) 1.20 - 3.90 10*3/uL LAB HEMATOLOGY METHOD 03/29/2025 4:41 AM EDT [facility] Monocytes Absolute 0.34 0.30 - 0.90 10*3/uL LAB HEMATOLOGY METHOD 03/29/2025 4:41 AM EDT [facility] Eosinophils Absolute 0.12 0.00 - 0.50 10*3/uL LAB HEMATOLOGY METHOD 03/29/2025 4:41 AM EDT [facility] Basophils Absolute 0.05 0.00 - 0.10 10*3/uL LAB HEMATOLOGY METHOD 03/29/2025 4:41 AM EDT [facility] Immature Granulocytes Absolute 0.06 0.00 - 0.06 10*3/uL LAB HEMATOLOGY METHOD 03/29/2025 4:41 AM EDT [facility] Blood Venous blood specimen / Unknown Venipuncture / Unknown 03/29/2025 2:51 AM EDT 03/29/2025 4:37 AM EDT Narrative [facility] - 03/29/2025 4:41 AM EDT Therapeutic decision making should be based on absolute values, rather than percentages. Luis Alfredo Hodges MD LAB BLOOD ORDERABLES Fi nal Result [facility] [address] [place] [address] * Magnesium, Plasma (03/29/2025 2:51 AM EDT) Pathologist [facility] Magnesium, Plasma 1.9 1.9 - 2.4 mg/dL 03/29/2025 5:08 AM EDT [facility] Blood Venous blood specimen / Unknown Venipuncture / Unknown 03/29/2025 2:51 AM EDT 03/29/2025 4:37 AM EDT Luis Alfredo Hodges MD LAB BLOOD ORDERABLES Fi nal Result Performing Organization Address City/[facility] Co de Phone Number [facility] [address] [place] [address] * Phosphorus, Plasma (03/29/2025 2:51 AM EDT) Phosphorus, Plasma 3.1 2.5 - 4.5 mg/dL 03/29/2025 5:08 AM EDT [facility] Blood Venous blood specimen / Unknown Venipuncture / Unknown 03/29/2025 2:51 AM EDT 03/29/2025 4:37 AM EDT Luis Alfredo Hodges MD LAB BLOOD ORDERABLES Fi nal Result Performing Organization Address [facility] de Phone Number [facility] [address] [place] [address] * [facility] (Stone) Analysis (03/28/2025 1:04 PM EDT) Calculi Mass 134 mg 04/01/2025 9:50 PM EDT [facility] (Seeder) Calculi Description See Note 04/01/2025 9:50 PM EDT [facility] (Seeder) Calculi Composition See Note 04/01/2025 9:50 PM EDT [facility] (Seeder) Calculus Non-blood Collection / Unknown 03/28/2025 1:04 PM EDT 03/28/2025 1:04 PM EDT Narrative [facility] (Seeder) - 04/01/2025 9:50 PM EDT Specimen consists [...] composition determined by FTIR analysis. Performed By: [facility] [address] [place] [id number] Agency Sales Director: Douglas Rubin MD, PhD CLIA Number: [id number] us [employer] [facility] [employer] [facility] REF LAB BLOOD AND FLUI D ORD Final Result Performing Organization Address [facility] Co de Phone Number [facility] (BEAKER) [address] [place] [id number] * [place] Less than 1 Hour Intraoperative (03/28/2025 11:59 AM EDT) Narrative IMAGING - 03/28/2025 12:00 PM EDT Images were obtained for surgical purposes. See Yahaira Leslie's surgical note in the patient's chart for the findings. Yahaira Leslie MD IMG FLUOROSCOPY PROCEDURES F inal Result Performing Organization Address [facility] Co de Phone Number IMAGING * (ABNORMAL) Urine Culture (03/28/2025 11:48 AM EDT) Culture 1,000 - 10,000 CFU/mL Enterobacter cloacae complex(A) SAMARA 03/31/2025 8:51 AM EDT [facility] Comment: This isolate has been identified using the FDA Approved [employer]yper CA System Edited result: Previously reported as Gram Negative Juan on 03/29/2025 at 1005 EDT. Culture 1,000 - 10,000 CFU/mL Morganella morganii(A) SAMARA 03/31/2025 8:51 AM EDT [facility] Comment: This isolate has been identified using the FDA Approved [employer] CA System The organism value for this result has been updated. These results have been appended to the previously preliminary verified report. Edited result: Previously reported as Gram Negative Juan on 03/30/2025 at 0632 EDT. Culture >=10,000 CFU/mL - Biotype 1 Enterococcus faecalis(A) SAMARA 03/31/2025 8:51 AM EDT [facility] Comment: This isolate has been identified using the FDA Approved [employer] CA System The organism value for this result has been updated. These results have been appended to the previously preliminary verified report. Culture >=10,000 CFU/mL - Biotype 2 Enterococcus faecalis(A) SAMARA 03/31/2025 8:51 AM EDT [facility] Comment: This isolate has been identified using the FDA Approved [employer] CA System The organism value for this [...] Enterococcus faecalis Vancomycin SAMARA 1 ug/ml: Susceptible us Yahaira Leslie MD LAB MICROBIOLOGY - GENERAL O RDERABLES Final Result [facility] [address] [place] [address] * Multi Drug Resistance Test (03/28/2025 5:49 AM EDT) [facility] Signature Culture No growth at day 1 03/29/2025 8:58 AM EDT [facility] Swab (Nares and Anabella Rectal) Non-blood Collection / Unknown 03/28/2025 5:49 AM EDT 03/28/2025 6:10 AM EDT Narrative [facility] - 03/29/2025 8:58 AM EDT This test was developed and its performance characteristics determined by the [facility]. Although the media is FDA-approved, it is not FDA-approved for all specimen types submitted. The FDA has determined that such clearance or approval is not necessary. This test is used for surveillance purposes. It should not be regarded as investigational or for research. The [facility] is certified under the Clinical Laboratory Improvement Amendments of 1988 (CLIA-88) as qualified to perform high complexity clinical laboratory testing. Luis Alfredo Hodges MD LAB MICROBIOLOGY - GENE RAL ORDERABLES Final Result Performing Organization Address [facility] de Phone Number [facility] [address] [place] [address] * SEND FER MESSAGE (03/28/2025 3:27 AM EDT) Urine Urine specimen obtained by clean catch procedure / Unknown Non-blood Collection / Unknown 03/28/2025 3:27 AM EDT 03/28/2025 3:40 AM EDT Clay Read DO LAB URINE ORDERABLES Final R esult Performing Organization Address [facility] de Phone Number [facility] [address] [place] [address] * Urine Culture (03/28/2025 3:27 AM EDT) Culture >=100,000 CFU/mL Mixed urogenital, fecal, or skin thaddeus present. 03/29/2025 5:58 AM EDT [facility] Urine Urine specimen obtained by clean catch procedure / Unknown Non-blood Collection / Unknown 03/28/2025 3:27 AM EDT 03/28/2025 3:40 AM EDT Clay Read DO LAB MICROBIOLOGY - GENERAL O RDERABLES Final Result Performing Organization Address City/[facility] de Phone Number [facility] [address] [place] [address] * Urinalysis Microscopic Examination (03/28/2025 3:27 AM EDT) Urine Urine specimen obtained by clean catch procedure / Unknown Non-blood Collection / Unknown 03/28/2025 3:27 AM EDT 03/28/2025 3:40 AM EDT Clay Read DO LAB URINE ORDERABLES Final R esult Performing Organization Address [facility]/ZIP Co de Phone Number [facility] [address] [place] [address] * Urine Hunter Panel (03/28/2025 3:27 AM EDT) Extra Sent for Culture 03/28/2025 4:12 AM EDT [facility] Urine Urine specimen obtained by clean catch procedure / Unknown Non-blood Collection / Unknown 03/28/2025 3:27 AM EDT 03/28/2025 3:40 AM EDT Clay Read DO LAB URINE ORDERABLES Final R esult Performing Organization Address [facility] Co de Phone Number [facility] [address] [place] [address] * (ABNORMAL) Urinalysis with reflex microscopic (Culture NOT Included) (03/28/2025 3:27 AM EDT) Color, Urine Yellow LAB URINALYSIS - AUTOMATED METHOD 03/28/2025 4:12 AM EDT [facility] Clarity, Urine Cloudy LAB URINALYSIS - AUTOMATED METHOD 03/28/2025 4:12 AM EDT [facility] Spec [place], Urine 1.025 1.005 - 1.030 LAB URINALYSIS - AUTOMATED METHOD 03/28/2025 4:12 AM EDT [facility] pH, Urine 6.0 5.0 - 8.0 LAB URINALYSIS - AUTOMATED METHOD 03/28/2025 4:12 AM EDT [facility] Protein, Urine 100(A) Negative mg/dL LAB URINALYSIS - AUTOMATED METHOD 03/28/2025 4:12 AM EDT [facility] Glucose, Urine Negative Negative mg/dL LAB URINALYSIS - AUTOMATED METHOD 03/28/2025 4:12 AM EDT [facility] Ketones, Urine Negative Negative mg/dL LAB URINALYSIS - AUTOMATED METHOD 03/28/2025 4:12 AM EDT [facility] Blood, Urine Large(A) Negative LAB URINALYSIS - AUTOMATED METHOD 03/28/2025 4:12 AM EDT [facility] Bilirubin, Urine Negative Negative LAB URINALYSIS - AUTOMATED METHOD 03/28/2025 4:12 AM EDT [facility] Urobilinogen, Urine 0.2 0.2 to 1.0 mg/dL LAB URINALYSIS - AUTOMATED METHOD 03/28/2025 4:12 AM EDT [facility] Leukocytes, Urine Moderate(A) Negative LAB URINALYSIS - AUTOMATED METHOD 03/28/2025 4:12 AM EDT [facility] Nitrite, Urine Positive(A) Negative LAB URINALYSIS - AUTOMATED METHOD 03/28/2025 4:12 AM EDT [facility] RBC, Urine Unable to estimate due to obscuring WBC's (UNEWBC) 0 to 3 /HPF 03/28/2025 4:12 AM EDT [facility] Comment:This result was prev iously suppressed from the chart. WBC, Urine >50(A) 0 to 5 /HPF 03/28/2025 4:12 AM EDT [facility] Comment:This result was prev iously suppressed from the chart. Squamous Epithelial Cells Unable to estimate due to obscuring WBC's (UNEWBC) 0 to 5 /HPF 03/28/2025 4:12 AM EDT [facility] Comment:This result was prev iously suppressed from the chart. Hyaline Casts Unable to estimate due to obscuring WBC's (UNEWBC) 0 to 5 /LPF 03/28/2025 4:12 AM EDT [facility] Comment:This result was prev iously suppressed from the chart. Bacteria, Urine Present Negative 03/28/2025 4:12 AM EDT [facility] Comment:This result was prev iously suppressed from the chart. Urine Urine specimen obtained by clean catch procedure / Unknown Non-blood Collection / Unknown 03/28/2025 3:27 AM EDT 03/28/2025 3:40 AM EDT Narrative [facility] - 03/28/2025 4:12 AM EDT Performed by manual method us Clay Read DO LAB URINE ORDERABLES Final R esult [facility] [address] [place] [id number] * CT Lumbar Spine wo IV Contrast [...] Total DLP (Dose-Length Product): 1311.58 mGy.cm (accession [id number]), 1311.58 mGy.cm (accession [id number]), 327.76 mGy.cm (accession [id number]). Please note: The reported value represents the [...] Total DLP (Dose-Length Product): 1311.58 mGy.cm (accession [id number]),1311.58 mGy.cm (accession [id number]), 327.76 mGy.cm (accession [id number]).Please note: The reported value represents the total [...] Total DLP (Dose-Length Product): 1311.58 mGy.cm (accession [id number]), 1311.58 mGy.cm (accession [id number]), 327.76 mGy.cm (accession [id number]). Please note: The reported value represents the [...] Total DLP (Dose-Length Product): 1311.58 mGy.cm (accession [id number]),1311.58 mGy.cm (accession [id number]), 327.76 mGy.cm (accession [id number]).Please note: The reported value represents the total [...] Total DLP (Dose-Length Product): 1311.58 mGy.cm (accession [id number]), 1311.58 mGy.cm (accession [id number]), 327.76 mGy.cm (accession [id number]). Please note: The reported value represents the [...] Total DLP (Dose-Length Product): 1311.58 mGy.cm (accession [id number]),1311.58 mGy.cm (accession [id number]), 327.76 mGy.cm (accession [id number]).Please note: The reported value represents the total [...] - 1.7 ng/dL 03/28/2025 8:29 AM EDT [facility] Blood Venous blood specimen / Unknown Venipuncture / Unknown 03/28/2025 1:14 AM EDT 03/28/2025 1:34 AM EDT Luis Alfredo Hodges MD LAB BLOOD ORDERABLES Fi nal Result Performing Organization Address [facility] Center de Phone Number [facility] [address] [place] [address] * (ABNORMAL) TSH Reflex FT4 (03/28/2025 1:14 AM EDT) Thyroid Stimulating Hormone, Plasma 7.49(H) 0.40 - 4.20 uIU/mL 03/28/2025 7:47 AM EDT [facility] Blood Venous blood specimen / Unknown Venipuncture / Unknown 03/28/2025 1:14 AM EDT 03/28/2025 1:34 AM EDT Luis Alfredo Hodges MD LAB BLOOD ORDERABLES Fi nal Result Performing Organization Address [facility] de Phone Number [facility] [address] [place] [address] * (ABNORMAL) Vitamin D 1,25 dihydroxy (03/28/2025 1:14 AM EDT) VITAMIN D, 1, 25-DIHYDROXY 108(H) 19.9 - 79.3 pg/mL 03/31/2025 5:01 AM EDT [facility] Blood Venous blood specimen / Unknown Venipuncture / Unknown 03/28/2025 1:14 AM EDT 03/28/2025 1:34 AM EDT Clay Read DO LAB BLOOD ORDERABLES Final R esult Performing Organization Address [facility] Co de Phone Number [facility] [address] [place] [address] * Vitamin D 25 Hydroxy (03/28/2025 1:14 AM EDT) Pathologist [facility] Vitamin D 25 Hydroxy 32.2 20.0 - 80.0 ng/mL 03/28/2025 5:05 AM EDT [facility] Blood Venous blood specimen / Unknown Venipuncture / Unknown 03/28/2025 1:14 AM EDT 03/28/2025 1:34 AM EDT Narrative [facility] - 03/28/2025 5:05 AM EDT Testing performed on [employer] Set Up Operator Automatic, standardized against NIST SRM 2972. When testing [...] to 80 ng/mL Possible toxicity: >100 ng/mL Clay Read DO LAB BLOOD ORDERABLES [facility] Performing Organization Address [facility] Co de Phone Number [facility] [address] [place] [address] * (ABNORMAL) CBC w/diff (03/28/2025 1:14 AM EDT) Pathologist [facility] WBC Count 6.86 3.70 - 10.30 10*3/uL LAB HEMATOLOGY METHOD 03/28/2025 1:39 AM EDT [facility] RBC Count 4.64 3.90 - 5.20 10*6/uL LAB HEMATOLOGY METHOD 03/28/2025 1:39 AM EDT [facility] HGB 12.0 11.2 - 15.7 g/dL LAB HEMATOLOGY METHOD 03/28/2025 1:39 AM EDT [facility] HCT 38.0 34.0 - 45.0 % LAB HEMATOLOGY METHOD 03/28/2025 1:39 AM EDT [facility] Platelet Count 202 155 - 369 10*3/uL LAB HEMATOLOGY METHOD 03/28/2025 1:39 AM EDT [facility] MCV 82 79 - 98 fL LAB HEMATOLOGY METHOD 03/28/2025 1:39 AM EDT [facility] MCH 25.9(L) 26.0 - 32.0 pg LAB HEMATOLOGY METHOD 03/28/2025 1:39 AM EDT [facility] MCHC 31.6 30.7 - 35.5 g/dL LAB HEMATOLOGY METHOD 03/28/2025 1:39 AM EDT [facility] RDW 15.1(H) 11.5 - 14.5 % LAB HEMATOLOGY METHOD 03/28/2025 1:39 AM EDT [facility] MPV 10.1 8.8 - 12.5 fL LAB HEMATOLOGY METHOD 03/28/2025 1:39 AM EDT [facility] nRBC 0.0 <=0.0 per 100 WBCs LAB HEMATOLOGY METHOD 03/28/2025 1:39 AM EDT [facility] Differential Type Automated LAB HEMATOLOGY METHOD 03/28/2025 1:39 AM EDT [facility] Neutrophils % 63 % LAB HEMATOLOGY METHOD 03/28/2025 1:39 AM EDT [facility] Lymphocytes % 27 % LAB HEMATOLOGY METHOD 03/28/2025 1:39 AM EDT [facility] Monocytes % 7 % LAB HEMATOLOGY METHOD 03/28/2025 1:39 AM EDT [facility] Eosinophils % 2 % LAB HEMATOLOGY METHOD 03/28/2025 1:39 AM EDT [facility] Basophils % 0 % LAB HEMATOLOGY METHOD 03/28/2025 1:39 AM EDT [facility] Immature Granulocytes % 1 % LAB HEMATOLOGY METHOD 03/28/2025 1:39 AM EDT [facility] Neutrophils Absolute 4.37 1.60 - 6.10 10*3/uL LAB HEMATOLOGY METHOD 03/28/2025 1:39 AM EDT [facility] Lymphocytes Absolute 1.82 1.20 - 3.90 10*3/uL LAB HEMATOLOGY METHOD 03/28/2025 1:39 AM EDT [facility] Monocytes Absolute 0.45 0.30 - 0.90 10*3/uL LAB HEMATOLOGY METHOD 03/28/2025 1:39 AM EDT [facility] Eosinophils Absolute 0.10 0.00 - 0.50 10*3/uL LAB HEMATOLOGY METHOD 03/28/2025 1:39 AM EDT [facility] Basophils Absolute 0.03 0.00 - 0.10 10*3/uL LAB HEMATOLOGY METHOD 03/28/2025 1:39 AM EDT [facility] Immature Granulocytes Absolute 0.09(H) 0.00 - 0.06 10*3/uL LAB HEMATOLOGY METHOD 03/28/2025 1:39 AM EDT [facility] Blood Venous blood specimen / Unknown Venipuncture / Unknown 03/28/2025 1:14 AM EDT 03/28/2025 1:34 AM EDT Narrative [facility] - 03/28/2025 1:39 AM EDT Therapeutic decision making should be based on absolute values, rather than percentages. Clay Read DO LAB BLOOD ORDERABLES Final R esult [facility] [address] [place] [address] * Procalcitonin (03/28/2025 1:14 AM EDT) [facility] Procalcitonin, Plasma <0.06 <0.09 ng/mL 03/28/2025 2:14 AM EDT [facility] Blood Venous blood specimen / Unknown Venipuncture / Unknown 03/28/2025 1:14 AM EDT 03/28/2025 1:34 AM EDT Narrative [facility] - 03/28/2025 2:14 AM EDT Procalcitonin [...] predict 28 day mortality risk. Please consult [email or web address] for more information. Test performed at [facility]. Clay Reda DO LAB BLOOD ORDERABLES Final R esult Performing Organization Address [facility] de Phone Number [facility] [address] [place] [address] * C-Reactive protein (03/28/2025 1:14 AM EDT) [...] risk order high sensitivity CRP (CRPH). Clay Cal Jacek [employer] LAB BLOOD ORDERABLES Final [facility] Performing Organization Address [facility] de Phone Number [facility] [address] [place] [phone] * Phosphorus (03/28/2025 1:14 AM EDT) Phosphorus, Plasma 3.7 2.5 - 4.5 mg/dL 03/28/2025 2:14 AM EDT [facility] Blood Venous blood specimen / Unknown Venipuncture / Unknown 03/28/2025 1:14 AM EDT 03/28/2025 1:34 AM EDT Clay Westubaldo [employer] LAB BLOOD ORDERABLES Final R [facility] Performing Organization Address [facility] de Phone Number [facility] [address] [place] [address] * Magnesium (03/28/2025 1:14 AM EDT) Magnesium, Plasma 2.0 1.9 - 2.4 mg/dL 03/28/2025 2:14 AM EDT [facility] Blood Venous blood specimen / Unknown Venipuncture / Unknown 03/28/2025 1:14 AM EDT 03/28/2025 1:34 AM EDT us Clay Read DO LAB BLOOD ORDERABLES Final R esult [facility] [address] [place] [address] * (ABNORMAL) CMP (03/28/2025 1:14 AM EDT) Glucose, Plasma 78 74 - 99 mg/dL 03/28/2025 2:14 AM EDT [facility] BUN, Plasma 18 8 - 23 mg/dL 03/28/2025 2:14 AM EDT [facility] Creatinine, Plasma 0.41(L) 0.60 - 1.10 mg/dL 03/28/2025 2:14 AM EDT [facility] BUN/Creatinine Ratio 44 03/28/2025 2:14 AM EDT [facility] Sodium, Plasma 141 136 - 145 mmol/L 03/28/2025 2:14 AM EDT [facility] Potassium, Plasma 3.9 3.6 - 4.9 mmol/L 03/28/2025 2:14 AM EDT [facility] Chloride, Plasma 107 97 - 107 mmol/L 03/28/2025 2:14 AM EDT [facility] CO2, Plasma 25 22 - 29 mmol/L 03/28/2025 2:14 AM EDT [facility] Anion Gap 9 6 - 16 mmol/L 03/28/2025 2:14 AM EDT [facility] Total Calcium, Plasma 8.2(L) 8.9 - 10.2 mg/dL 03/28/2025 2:14 AM EDT [facility] Total Protein 6.4 6.3 - 7.9 g/dL 03/28/2025 2:14 AM EDT [facility] Albumin, Plasma 3.8 3.5 - 5.2 g/dL 03/28/2025 2:14 AM EDT [facility] AST, Plasma 13 10 - 35 U/L 03/28/2025 2:14 AM EDT [facility] ALT, Plasma 7(L) 10 - 35 U/L 03/28/2025 2:14 AM EDT [facility] Alkaline Phosphatase, Plasma 82 46 - 142 U/L 03/28/2025 2:14 AM EDT [facility] Total Bilirubin, Plasma <0.2(L) 0.2 - 1.1 mg/dL 03/28/2025 2:14 AM EDT [facility] eGFRcr 108.7 mL/min/1.7 3m*2 03/28/2025 2:14 AM EDT [facility] Comment:Reported eGFRcr in m L/min/1.73m2 is based the CKD-EPI 2020 equation that does not use a race coefficient. 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 Neurogenic bladder Neurogenic bladder, NOS Recurrent UTI Urinary tract infection, site not specified Compression fracture of T3 vertebra with routine healing, subsequent encounter Kidney stone Calculus of kidney Kidney stone Calculus of kidney documented in this encounter Admitting Diagnoses Diagnosis [...] Given 03/29/2025 4:43 PM EDT 400 mg HYDROmorphone (Dilaudid) injection 0.25 mg 0.25 mg, Intravenous, Every 4 hours PRN, Starting on Fri03/28/25 at 0514, Until Fri03/30/25 at 1114, Routine, severe breakthrough pain, stop after 48h Given 03/28/2025 10:46 AM EDT 0.25 mg hydrOXYzine pamoate (Vistaril) capsule 25 mg 25 mg, Oral, Every 6 hours PRN, Starting on Fri03/28/25 at 1833, Until Fri03/30/25 at 1114, Routine, anxiety Given 03/29/2025 4:42 AM EDT 25 mg Given 03/28/2025 6:59 PM EDT 25 mg iohexol (OMNIPaque) 300 MG/ML injection As needed, Starting on Fri03/28/25 at 1144, Until Fri03/28/25 at 1159, Routine, Intraprocedure Given 03/28/2025 11:44 AM EDT 7.5 mL Other ketorolac (Toradol) injection 15 mg 15 mg, Intravenous, Every 6 hours PRN, Starting on Fri03/28/25 at 0513, Until Fri03/30/25 at 1114, Routine, moderate pain, severe pain Given 03/28/2025 5:48 AM EDT 15 mg levETIRAcetam (Keppra) tablet 500 mg 500 mg, [...] AM EDT 1 Application ondansetron (Zofran) 4 MG/5ML solution 4 mg [...] 03/28/2025 7:43 AM EDT 4 mg ondansetron ODT (Zofran-ODT) [...] Given 03/28/2025 7:43 AM EDT 5 mg polyethylene glycol (Miralax) packet 17 g [...] Given 03/28/2025 6:35 PM EDT 0.4 mg tiZANidine (Zanaflex) tablet 4 mg 4 [...] Given 03/28/2025 8:15 PM EDT 50 mg documented in this encounter Active and Recently Administered Medications Times are shown in EDT. Scheduled Medication Order 03/28/2025 03/29/2025 03/30/2025 cefTRIAXone (Rocephin) 2 g in sodium chloride 0.9% 100 mL IVPB (vial adapter required) 2 g, Intravenous, Every 24 hours, First dose on Fri03/28/25 at 0550, Until Discontinued, Routine 0612 (New Bag - Provider: Tito Richardson, HUBERT)0700 (Stopped - Provider: Guillermo Rodriguez RN) 0544 (New Bag - Provider: America Patel) 0556 (New Bag - Provider: America Patel) dantrolene (Dantrium) capsule 50 mg 50 mg, Oral, 3 times daily, First dose on Fri03/28/25 at 2100, Until Discontinued, Recovery(Phase II-Outpatient)/On Unit(Inpatient) 2016 (Given - Provider: America Patel) 0913 (Given - Provider: Delia Singer RN)164 (Given - Provider: Delia Singer RN)2101 (Given - Provider: America Patel) 0822 (Given - Provider: Delia Singer RN) gabapentin (Neurontin) capsule 400 mg 400 mg, Oral, 3 times daily, First dose on Fri03/29/25 at 0900, Until Discontinued, Routine 0911 (Given - Provider: Delia Singer RN)1643 (Given - Provider: Delia Singer RN)2048 (Given - Provider: America Patel) 0821 (Given - Provider: Delia Singer RN) heparin (porcine) injection 5,000 Units (CANCELED) 5,000 Units, Subcutaneous, Every 8 hours scheduled, First dose on Fri03/28/25 at 0950, Until Discontinued, Routine, Holding - Preprocedure 1106 (Given - Provider: Didi Leach RN)1116 (NOV Hold - Provider: Automatic Transfer Provider - Reason: Patient in procedure)1200 (NOV Unhold - Provider: Automatic Transfer Provider) HYDROmorphone (Dilaudid) injection 0.5 mg (COMPLETED) 0.5 mg, Intravenous, Once, 1 dose, On Fri03/28/25 at 0055, STAT 0113 (Given - Provider: Tito Richardson RN) HYDROmorphone (Dilaudid) injection 0.5 mg (COMPLETED) 0.5 mg, Intravenous, Once, 1 dose, On Fri03/28/25 at 0445, STAT 0452 (Given - Provider: Kailyn Dnaiel) ketorolac (Toradol) injection 15 mg (COMPLETED) 15 [...] Unit(Inpatient) 2014 (Given - Provider: America Patel) 910 (Given - Provider: Delia Singer RN)2047 (Given - Provider: America Patel) 08 (Given - Provider: Delia Singer RN) levothyroxine [...] 0900, Until Discontinued, Routine, Recovery(Phase II-Outpatient)/On Unit(Inpatient) 910 (Given - Provider: Delia Singer, HUBERT) 820 (Given - Provider: Delia Singer RN) mupirocin (Bactroban) 2 % ointment 1 Application Each Nostril, 2 times daily, 10 doses, First dose on Fri03/28/25 at 2100, Last dose on Fri04/02/25 at 0900, Routine 2014 (Given - Provider: America Patel) 0911 (Given - Provider: Delia Singer RN)2047 (Given - Provider: America Patel) 0822 (Given - Provider: Delia Singer RN) ondansetron (Zofran) injection 4 mg (COMPLETED) [...] Auto Held - Provider: Automatic Transfer Provider)1419 (NOV Unhold - Provider: Junior Baird APRN)1835 (Given - Provider: Natali Steven RN) 0911 [...] Transfer Provider - Reason: Patient in procedure)1419 (MAR Unhold - Provider: Junior Baird APRN) 0911 [...] II-Outpatient)/On Unit(Inpatient) 0911 (Given - Provider: Delia Singer, HUBERT) 0821 (Given - Provider: Delia Singer, RN) sodium chloride 0.9 % flush 10 mL (CANCELED) 10 mL, Intravenous, Every 12 hours, First dose on Fri03/28/25 at 0515, Until Discontinued, Routine 0548 (Given - Provider: Tito Richardson, HUBERT)1116 (NOV Hold - Provider: Automatic Transfer Provider - Reason: Patient in procedure)1234 (MAR Unhold - Provider: Junior Baird APRN) sodium chloride 0.9 % flush 10 mL(Linked Group 1) 10 mL, Intravenous, Every 12 hours, First dose (after last modification) on Fri03/28/25 at 1715, Until Discontinued, Routine 1903 (Given - Provider: Ntaali Steven RN) 0445 (Given - Provider: America Patel)1644 (Given - Provider: Delia Singer RN) 0451 (Given - Provider: America Patel) tamsulosin (Flomax) 24 hr capsule 0.4 mg 0.4 mg, Oral, Daily with dinner, First dose on Fri03/28/25 at 1800, Until Discontinued, Routine 1116 (MAR Hold - Provider: Automatic Transfer Provider - Reason: Patient in procedure)1235 (MAR Unhold - Provider: Junior Baird APRN)1835 (Given - Provider: Natali Steven RN) 1644 (Given - Provider: Delia Singer RN) tamsulosin (Flomax) 24 hr capsule 0.8 mg (COMPLETED) 0.8 mg, Oral, Once, 1 dose, On Fri03/28/25 at 0055, Routine 0113 (Given - Provider: Tito Richardson RN) tiZANidine (Zanaflex) tablet 4 mg 4 mg, Oral, 2 times daily, First dose on Fri03/28/25 at 2100, Until Discontinued, Routine 2014 (Given - Provider: America Patel) 910 (Given - Provider: Delia Singer, RN)2047 (Given - Provider: America Patel) 820 (Given - Provider: Delia Singer, RN) traZODone (Desyrel) tablet 50 mg 50 mg, [...] STAT 1020 (New Bag - Provider: Didi Leach RN)1120 (Due: Stopped - Provider: Didi Leach RN) Continuous Medication Order 03/28/2025 03/29/2025 03/30/2025 sodium chloride 0.9 % infusion 75 mL/hr, Intravenous, Continuous, Starting on Fri03/28/25 at 0515, Until Fri03/30/25 at 1114, Routine 0548 (New Bag - Provider: Tito Richardson RN)1501 (Continued from OR - Provider: Lizzy Koo, HUBERT)1999 (Rate/Dose Verify - Provider: America Patel) 1432 (New Bag - Provider: Delia Singer, HUBERT)2054 (New Bag - Provider: America Patel) PRN [...] after 48h 1046 (Given - Provider: Didi Leach, HUBERT)1116 (NOV Hold - Provider: Automatic Transfer Provider - Reason: Patient in procedure)1645 (NOV Unhold - Provider: Automatic Transfer Provider) HYDROmorphone (Dilaudid) injection 0.25 mg (CANCELED) 0.25 mg, Intravenous, Every 10 min PRN, 4 doses, Starting on Fri03/28/25 at 1157, Until Fri03/28/25 at 1645, Routine, Recovery (Phase I only), pain score of 6-10 out of 10 1608 (Given - Provider: Lizzy Koo, RN) hydrOXYzine pamoate (Vistaril) capsule 25 mg 25 mg, Oral, Every 6 hours PRN, Starting on Fri03/28/25 at 1833, Until Fri03/30/25 at 1114, Routine, anxiety 1859 (Given - Provider: Natali Steven, HUBERT) 0442 (Given - Provider: America Patel) iohexol [...] (NOV Unhold - Provider: Junior Baird APRN) melatonin tablet 3 mg 3 mg, Oral, Nightly PRN, Starting on Fri03/28/25 at 0514, Until Fri03/30/25 at 1114, Routine, sleep 1116 (NOV Hold - Provider: Automatic Transfer Provider - Reason: Patient in procedure)1234 (NOV Unhold - Provider: Junior Baird APRN)2014 (Given - Provider: America Patel) ondansetron (Zofran) 4 MG/5ML solution 4 mg(Linked Group 2) 4 mg, Oral, Every 6 hours PRN, Starting on Fri03/28/25 at 0514, Until Fri03/30/25 at 1114, Routine, nausea, vomiting 0743 (See Alternative - Provider: Guillermo Rodriguez RN)1116 ([facility] Hold - Provider: Automatic Transfer Provider - Reason: Patient in procedure)1234 ([facility] Unhold - Provider: Junior Baird, JEREMI)1902 (See Alternative - Provider: Natali Steven RN) 0440 (See Alternative - Provider: America Patel) ondansetron (Zofran) injection 4 mg(Linked Group 2) 4 mg, Intravenous, Every 6 hours PRN, Starting on Fri03/28/25 at 0514, Until Fri03/30/25 at 1114, Routine, vomiting, nausea 0743 (Given - Provider: Guillermo Rodriguez RN)1116 ([facility] Hold - Provider: Automatic Transfer Provider - Reason: Patient in procedure)1234 ([facility] Unhold - Provider: Junior Baird, JEREMI)1902 (Given - Provider: Natali Steven RN) 0440 (See Alternative - Provider: America Patel) ondansetron ODT (Zofran-ODT) disintegrating tablet 4 mg(Linked Group 2) 4 mg, Oral, Every 6 hours PRN, Starting on Fri03/28/25 at 0514, Until Fri03/30/25 at 1114, Routine, nausea, vomiting 0743 (See Alternative - Provider: Guillermo Rodriguez RN)1116 ([facility] Hold - Provider: Automatic Transfer Provider - Reason: Patient in procedure)1234 ([facility] Unhold - Provider: Junior Baird, [employer])1902 (See Alternative - Provider: Natali Steven RN) 0440 (Given - Provider: America Patel) oxyCODONE (Roxicodone) immediate release tablet 5 mg 5 mg, Oral, Every 6 hours PRN, Starting on Fri03/28/25 at 0513, Until Fri03/30/25 at 1114, Routine, moderate pain, severe pain 0743 (Given - Provider: Guillermo Rodriguez RN)1116 ([facility] Hold - Provider: Automatic Transfer Provider - Reason: Patient in procedure)1234 ([facility] Unhold - Provider: Junior Baird [employer])1349 (Given - Provider: Lizzy Koo RN) 0441 [...] documented as of this encounter Care Teams Aligner Typewriter Relationship Specialty Start Date End Date Luis Henderson MD [address] [place], [place] [id number] PCP - General Internal Medicine 01/10/22 Luis Henderson MD [address] [place], [place] [id number] 09/04/21 Kasi Jacobs MD [address] [place] [address] Consulting Physician Neurology 05/17/21 Maria Guadalupe Madrigal APRN [address] [place] [address] Nurse Practitioner Urology 12/03/23 documented as of this encounter
--- OUTSIDE RECORDS SUMMARY | 2025-03-28 11:13 | XMS_ITS | Encounter Summary ---
Author Organization [facility] Address [address] [place] [address] Care Team Providers Care Photogeologist Name Role Phone Luis Henderson MD Unavailable [phone] Kasi Jacobs MD Unavailable [phone] Luis Henderson MD Primary Care Provider [phone] Maria Guadalupe Madrigal APRN Unavailable [phone] Reason for Visit * Auth/Cert (Routine) Specialty Diagnoses / Procedures Referred By Contac t Referred To Contact Diagnoses Hydronephrosis concurrent with and due to calculi of kidney and ureter kidney stones and chronic compression fx Luis Alfredo Hodges MD [address] [place] [address] Phone: tel: fax: [facility] S Emergency Department [address] [place] [address] Phone: tel: Referral ID Status Reason Start Date Expiration Date Visits Re quested Visits Authorized [id number] 1 1 Encounter Details Date Type Department Care Team ([facility] st Contact Info) Description 03/28/2025 11:13 AM EDT Anesthesia Event [facility] S Operating Room [address] [place] [address] Wade Art MD [address] [place] [address] Elías Rodriguez MD [address] [place] [address] Anesthesia Record Procedure Summary Procedure Name Responsible Anesthesiologist Anesthesia Start Time Anesthesia Stop Time CYSTOSCOPY, WITH URETERAL STENT INSERTION (Left) Wade Art MD 03/28/25 1113 03/28/25 1203 Events Date Time Event Comment 03/28/2025 1017 1113 An Start The patient was reevaluated immediately before sedation and remains eligible for anesthesia plan. 1113 In Room 1118 An Start Data 1120 An Induction The patient was reevaluated immediately before moderate or deep sedation use and before anesthesia induction. 1124 An Intubation 1126 Anesthesia Ready 1134 Proc Start 1152 An Extubation 1154 Proc Fin 1157 an stop data 1159 Out of Room 1203 Handoff to Receiving I compl eted my handoff to the receiving clinician during which we: 1. Identified the patient 2. Identified the responsible provider 3. Reviewed the pertinent medical history 4. Discussed the surgical course 5. Reviewed intra-op anesthesia management and issues during anesthesia 6. Set expectations for post-procedure period 7. Allowed opportunity for questions and acknowledgement of understanding. 1203 An Stop Meds Name Total fentaNYL (Sublimaze) injection 50 mcg/mL 25 mcg lidocaine PF (Xylocaine-MPF) 2% 50 mg propofol (Diprivan) injection 10 mg/mL 1 00 mg ePHEDrine injection prefilled syringe 5 mg/mL 12.5 mg phenylephrine (Zachariah-Synephrine) prefilled syringe 1 mg/10 mL 150 mcg lactated Ringer's infusion 500 mL * Agents Name O2 Sevoflurane Inspired Sevoflurane * Blood No blood administrations on file. Lines, Drains, and Airways Type Details Placement Removal Suprapubic Catheter 03/28/25; 318; Yes; Single lumen; 16 Fr.; Catheter securement device 03/28/25318 by Tito Richardson RN Peripheral IV Placement Date: 03/09 10/02; Placement Time: 0106; Existing LDA Placed by: Outside Facility; Catheter Size: 20 G; Orientation: Left; Location: Antecubital; Removal Date: 03/28/25; Removal Time: 1103 03/28/25 0106 by Tito Richardson RN 03/28/[address] RN Peripheral IV Placement Date: 03/09 10/02; Placement Time: 1104; Catheter Size: 20 G; Orientation: Posterior, Right; Location: Wrist; Site Prep: Chlorhexidine ; Local Anesth: None; Technique: Anatomical landmarks; Inserted by: Clair Lane RN; Insertion Attempts: 1; Patient Tolerance: Tolerated well; Removal Date: 03/30/25; Removal Time: 624; Removal Reason: Removed by patient 03/28/[address] RN 03/30/25 0625 by America Patel Supraglottic Airway Placement Date: 03/09 10/02; Placement Time: 1124 (created via procedure documentation); Mask Ventilation: 1; Removal Date: 03/28/25; Removal Time: 1152 03/28/25 1124 by Wade Art MD 03/28/25 1152 by Wade Art MD Ureteral Drain/Stent 03/28/25; 1140; Yes ; Left ureter; 4.8 Fr. 03/28/25 1140 by Ingris Zimmerman 04/11/25 1128 by Jazzmine Naqvi documented in this encounter Social History Tobacco [...] any time in the past 12 m [facility], were you homeless or living in a residential (including now)? 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 0 03/16/2023 CAGE Questionnaire Score 0 023 Utilities Answer Date Recorded In the past 12 months has th e [employer], gas, oil, or water company threatened to shut off services in your home? No 03/28/2025 PHQ-2A Answer Date Recorded Patient Health Questionnaire-2 Score 1 04/17/2023 Comments No Sex and Gender Information Value Date Recorded Sex Assigned at Not on file Legal Sex Female 7:58 PM EDT Gender Identity Not on file Sexual Orientation Not on file documented as of this encounter Functional Status * Calculated C-SSRS [...] Richardson RN documented as of this encounter Miscellaneous Notes * Anesthesia Postprocedure Evaluation - Wade Art MD - 03/28/2025 12:03 PM EDT Patient: Meme Estes Anesthesia Type: general Vitals Value Taken Time BP 113/70 03/28/25 12:01 Temp 97.6 03/28/25 12:03 Pulse 85 03/28/25 12:02 Resp 14 03/28/25 12:02 SpO2 100 % 03/28/25 12:02 Vitals shown include unfiled device data. Anesthesia Post Evaluation Patient location during evaluation: PACU Patient participation: complete - patient participated Level of consciousness: awake Pain management: adequate (pain score 0-3) Airway patency: natural airway Cardiovascular status: acceptable and hemodynamically stable Respiratory status: acceptable and nasal cannula Hydration status: acceptable Nausea/Vomiting: No No notable events documented. * Anesthesia Procedure Notes - Wade Art MD - 03/28/2025 11:27 AM EDT Associated Order(s): Airway Airway Date/Time: 03/28/2025 11:24 AM Reason: elective Airway not difficult General Information and Staff Patient location during procedure: OR Anesthesiologist: Wade Art MD Performed: Anesthesiologist Patient Condition Indications for airway management: anesthesia Patient position: sniffing MILS maintained throughout Final Airway Details Final airway type: LMALMA Size: 4 LMA Type: normal * Anesthesia Preprocedure Evaluation - Chester Pan DO - 03/28/2025 10:14 AM EDT Anesthesiologist: Wade Art MD Patient: Meme Estes HPI Meme Estes is a 64 y.o. female with body mass index is 21.79 kg/m??. who presents with Hydronephrosis concurrent with and due to calculi of kidney and ureter, now for CYSTOSCOPY, WITH URETERAL STENT INSERTION OR REMOVAL (Left) Procedure Information Date/Time: 03/28/25 1055 Procedure: CYSTOSCOPY, WITH URETERAL STENT INSERTION OR REMOVAL (Left) Location: [facility] 09 [facility] / [facility] Surgeons: Yahaira Leslie MD Past medical history: paraplegia, cerebral palsy, neurogenic bladder, GERD, kidney stones, hypothyroidism Past surgical history: multiple Past anesthesia history: The pt denies any problems with anesthesia in the past. NPO: NPO appropriate Diabetes: No GLP1 agonist: No Beta Johnna: No Anti-coagulation/anti-platelet: No METS/Activity Level: paraplegic All of the patient's questions have been appropriately addressed and answered. The patient demonstrates understanding and is agreeable to the plan at this time. Relevant Problems GI (+) GERD (gastroesophageal reflux disease) /Renal (+) Hydronephrosis concurrent with and due to calculi of kidney and ureter (+) Indwelling Jacobs catheter present (+) Kidney stone (+) Neurogenic bladder (+) Recurrent UTI Other (+) Osteomyelitis of vertebra of thoracic region (CMS/HCC) ALLERGIES Allergies[1] NPO STATUS Date of Last Liquid: 03/27/25 Time of Last Liquid: 1200 Date of Last Solid: 03/27/25 Time of Last Solid: 1200 Time of Last Void: (has suprapubic Cath) Past Medical History[2] AIRWAY HISTORY Airway Detailed Review Displaying the 20 most recent records Date Difficult Airway Blade Size ETT Size C-L Class Final Type Intubation Method 04/21/24 No LMA 03/18/23 No 3 7.0 grade IIa - partial view of glottis endotracheal airway direct laryngoscopy MEDICATIONS Outpatient Current Outpatient Medications Medication Instructions acetaminophen (TYLENOL) 1,000 mg, Oral, Every 6 hours scheduled ALBUTEROL SULFATE HFA IN 2 puffs, 4 times daily PRN Anoro Ellipta 62.5-25 MCG/INH aerosol powder Anti-Dandruff 1 % shampoo bisacodyl (Dulcolax) 10 MG suppository Catheters misc Please exchange catheter at least monthly, more often if needed. Catheters misc Please change suprapubic catheter once monthly or more often as needed with 18 faroese latex catheter Please flush catheter at least twice per day with 50 mL normal saline with catheter tip syringe, more often if needed. May need to aspirate urine, then flush. Call [place] [facility] if issues cholecalciferol (VITAMIN D-3) 1,000 Units, Daily cyanocobalamin (VITAMIN B-12) 1,000 mcg, Every 30 days dantrolene (DANTRIUM) 50 mg, Oral, 3 times daily gabapentin (NEURONTIN) 400 mg, 3 times daily hydrocortisone 1 % cream lactulose (Chronulac) 10 GM/15ML oral solution Take 15 mL (10 g) by mouth if needed. levETIRAcetam (Keppra) 500 MG tablet Take 1/2 tab PO BID for two weeks then 1 tab PO BID levothyroxine (SYNTHROID, LEVOXYL) 200 mcg, Daily before breakfast Linzess 72 MCG capsule capsule Take by mouth 1 (one) time each day before breakfast. Linzess 290 mcg, Daily before breakfast melatonin 3 MG tablet Take 1 tablet (3 mg) by mouth every night. midodrine (PROAMATINE) 5 mg, Oral, 2 times daily mirabegron ER (MYRBETRIQ) 50 mg, Oral, Daily Misc. Devices misc Please discontinue Ms. Pringle's jacobs catheter. Will resume CIC with the assistance of her per patient request. Thank you. Multiple Vitamin (multivitamin) capsule 1 capsule, Daily omeprazole (PRILOSEC) 40 mg, Daily polyethylene glycol (Miralax) 17 GM/SCOOP powder Take 17 g by mouth 1 (one) time each day. Prucalopride Succinate (MOTEGRITY) 2 mg, Daily sertraline (ZOLOFT) 200 mg, 2 times daily Stimulant Laxative 8.6-50 MG tablet tiZANidine (Zanaflex) 2 MG capsule Take 1 capsule (2 mg) by mouth 2 (two) times a day. traZODone (Desyrel) 50 MG tablet Take 1 tablet (50 mg) by mouth every night. Scheduled Current Scheduled Medications[3] PRNs Current PRN Medications[4] SURGICAL HX: Surgical History[5] SOCIAL HX: Social History[6] OBJECTIVE DATA LABS Lab Results Component Value Date WBC 6.86 03/28/2025 HGB 12.0 03/28/2025 HCT 38.0 03/28/2025 MCV 82 03/28/2025 PLT 202 03/28/2025 Lab Results Component Value Date CALCIUM 8.2 (L) 03/28/2025 BUN 18 03/28/2025 CREATININE 0.41 (L) 03/28/2025 BCR 44 03/28/2025 NA 141 03/28/2025 K 3.9 03/28/2025 CL 107 03/28/2025 CO2 25 03/28/2025 CA 8.2 (L) 10/13/2020 Type and Screen No results found for: ABO No results found for: HGBA1C Lab Results Component Value Date GLUCOSE 78 03/28/2025 ABG Lab Results Component Value Date ZLC3AAH 25 03/18/2023 LACTATE 0.7 03/18/2023 Lab Results Component Value Date PH 7.36 03/18/2023 PCO2 45 03/18/2023 PO2 129 03/18/2023 [id number] 99.1 (H) 03/18/2023 BASEEXC -0.2 03/18/2023 HCTSYR 24.7 (L) 03/18/2023 KSYR 4.0 03/18/2023 CLSYR 106 03/18/2023 GLUSYR 94 03/18/2023 CAION 4.3 (L) 03/18/2023 LACTATE 0.7 03/18/2023 ECHO No echocardiogram results found for the past 12 months PFTs No results found for: MZR5QVP , VMK9QDCT , KMO2BXL , FVCPRED BP Readings from Last 5 Encounters: 03/28/25 96/55 12/22/24 108/66 10/13/24 106/74 10/08/24 115/72 10/01/24 120/70 Physical Exam Airway Mallampati: III Mouth opening: normal TM distance: >3 FB Cardiovascular Rhythm: regular Rate: normal Dental - normal exam Pulmonary Breath sounds clear to auscultation Neurological Skin Musculoskeletal Extremities Anesthesia Plan ASA 4 Plan was reviewed with: attending Anesthesia technique(s) discussed with the patient/family: general Anesthesia plan agreed upon was: general Anesthetic plan and risks discussed with patient. Anesthesia Evaluation [1] Allergies Allergen Reactions Methenamine Itching, Rash and Swelling Methotrexate Other - please document in the comment field Metoclopramide Other - please document in the comment field Petechiae on her legs Morphine Unknown - Patient states they do not know rxn details Reglan [Metoclopramide] Unknown - Patient states they do not know rxn details Sulfa Drugs Rash Sulfacetamide Rash [2] Past Medical History: Diagnosis Date Acute respiratory [...] 03/19/2022 Rocephin 7/8 Seizure (CMS/HCC) Unspecified convulsions (CMS/[facility]) Vitamin B12 deficiency anemia, unspecified Vitamin D deficiency, unspecified [3] cefTRIAXone, 2 g, Intravenous, q24h cefTRIAXone, 2 g, Intravenous, Once heparin (porcine), 5,000 Units, Subcutaneous, q8h ROWAN [Held by provider] heparin (porcine), 5,000 Units, Subcutaneous, q8h ROWAN levothyroxine, 200 mcg, Oral, q AM phenazopyridine, 100 mg, Oral, TID with meals polyethylene glycol, 17 g, Oral, Daily Povidone-Iodine, 1 Application, Nasal, Once Insert peripheral IV, , , Once AND Saline lock IV, , , Once AND sodium chloride, 10 mL, Intravenous, q12h AND sodium chloride, 10 mL, Intravenous, PRN Insert peripheral IV, , , Once AND Saline lock IV, , , Once AND sodium chloride, 10 mL, Intravenous, q12h AND sodium chloride, 10 mL, Intravenous, PRN tamsulosin, 0.4 mg, Oral, Daily with dinner vancomycin, 15 mg/kg (Order-Specific), Intravenous, Once [4] PRN medications: HYDROmorphone, ketorolac, melatonin, ondansetron ODT OR ondansetron ORondansetron, oxyCODONE, Insert peripheral IV AND Saline lock IV AND sodium chloride ANDsodium chloride, Insert peripheral IV AND Saline lock IV AND sodium chloride AND sodiumchloride [5] Past Surgical History: Procedure Laterality Date ANKLE SURGERY N/A Ankle Surgery from [facility] APPENDECTOMY N/A Appendectomy from [facility] BACK SURGERY IR PAIN PUMP IMPLANT/ REPLACEMENT IR PAIN PUMP REMOVAL SACRAL NERVE STIMULATOR PLACEMENT N/A Install Sacral Nerve Neurostimulator By Incision from [facility] SUBMANDIBULAR GLAND EXCISION W/ PAROTID DUCT LIGATION N/A Thyroid Surgery Sub-Total Thyroidectomy from [facility] SUPRAPUBIC CATHETER TUBAL LIGATION N/A Tubal Ligation from [facility] [6] Social History Tobacco Use Smoking status: Never Smokeless tobacco: Never Vaping Use Vaping status: Never Used Substance Use Topics Alcohol use: Never Comment: Alcoholic Drinks/day: Never Drank Alcohol Drug use: Never Cosigned by Wade Art MD at 03/28/2025 10:39 AM EDT Associated attestation - Wade Art MD - 03/28/2025 10:39 AM EDT I agree with the findings and care plan documented in the preprocedure evaluation note. documented in this encounter Plan of Treatment Upcoming Encounters Date Type Department Care Team ([facility] st Contact Info) Description 07/14/2025 8:45 AM EST Appointment [facility] Ultrasound [address] [place] [address] 07/14/2025 10:50 AM EST Office Visit Medical Office Building Urology [address] [facility] [address], [address] [place] [id number] Zoie Restrepo M, TECHNICAL PROJECT MANAGER [address] [place] [address] 10/03/2025 11:40 AM EST Office Visit [facility] Urology [address] [place] [address] Maria Guadalupe Madrigal, TECHNICAL PROJECT MANAGER [address] [place] [id number] documented as of this encounter Procedures Procedure Name Priority Date/Time Associated Diagnosis Comments PB ANESTHESIA PLACEHOLDER Routine 03/28/2025 11:24 AM EDT HI AN ELECTIVE SUPRAGLOTTIC AIRWAY Routine 03/28/2025 11:24 AM EDT documented in this encounter Results * HI AN ELECTIVE SUPRAGLOTTIC AIRWAY, PB ANESTHESIA PLACEHOLDER (03/28/2025 11:24 AM EDT) Narrative Wade Art MD - 03/28/2025 11:24 AM EDT Wade Art MD 03/28/2025 11:28 AM Airway Date/Time: 03/28/2025 11:24 AM Reason: elective Airway not difficult General Information and Staff Patient location during procedure: OR Anesthesiologist: Wade Art MD Performed: Anesthesiologist Patient Condition Indications for airway management: anesthesia Patient position: sniffing MILS maintained throughout Final Airway Details Final airway type: LMALMA Size: 4 LMA Type: normal Wade Art MD ANESTHESIA ORDERABLES Final Resu lt documented in this encounter Visit Diagnoses Not on filedocumented in this encounter Administered Medications Inactive Administered Medications - up to 3 most recent administrations Medication Order MAR Action Action Date Dose Rate Site ePHEDrine Sulfate (Akovaz) injection Intravenous, As needed, Starting on Fri03/28/25 at 1131, Until Fri03/28/25 at 1203, Routine, Anesthesia Intraprocedure Given 03/28/2025 11:34 AM EDT 5 mg Given 03/28/2025 11:31 AM EDT 7.5 mg fentaNYL (Sublimaze) injection Intravenous, As needed, Starting on Fri03/28/25 at 1120, Until Fri03/28/25 at 1203, Routine, Anesthesia Intraprocedure Given 03/28/2025 11:20 AM EDT 25 mcg lactated Ringer's infusion Intravenous, Continuous PRN, Starting on Fri03/28/25 at 1110, Until Fri03/28/25 at 1204, Routine New Bag 03/28/2025 11:10 AM EDT lidocaine PF (Xylocaine) 2 % injection Intravenous, As needed, Starting on Fri03/28/25 at 1120, Until Fri03/28/25 at 1203, Routine, Anesthesia Intraprocedure Given 03/28/2025 11:20 AM EDT 50 mg phenylephrine in NS (Zachariah-Synephrine) 100 mcg/mL prefilled syringe Intravenous, As needed, Starting on Fri03/28/25 at 1144, Until Fri03/28/25 at 1203, Routine, Anesthesia Intraprocedure Given 03/28/2025 11:50 AM EDT 50 mcg Given 03/28/2025 11:44 AM EDT 100 mcg propofol (Diprivan) injection Intravenous, As needed, Starting on Fri03/28/25 at 1120, Until Fri03/28/25 at 1203, Routine, Anesthesia Intraprocedure Given 03/28/2025 11:20 AM EDT 100 mg documented in this encounter Additional Health Concerns [...] documented as of this encounter Care Teams Photogeologist Relationship Specialty Start Date End Date Luis Henderson MD [address] [place] [address] PCP - General Internal Medicine 01/10/22 Luis Henderson MD [address] [place] [address] 09/04/21 Kasi Jacobs MD [address] [place] [address] Consulting Physician Neurology 05/17/21 Maria Guadalupe Madrigal APRN [address] [place] [address] Nurse Practitioner Urology 12/03/23 documented as of this encounter
--- OUTSIDE RECORDS SUMMARY | 2025-04-01 14:20 | XMS_ITS | Encounter Summary ---
Author Organization [facility] Address [address] [place] [address] Care Team Providers Care Childcare Worker Name Role Phone Luis Henderson MD Unavailable [phone] Kasi Jacobs MD Unavailable [phone] Luis Henderson MD Primary Care Provider [phone] Maria Guadalupe Madrigal [employer] Unavailable [phone] Reason for Visit * Reason Comments Follow-up Encounter Details Date Type Department Care Team (Late st Contact Info) Description 04/01/2025 2:20 PM EDT Office Visit [facility] [address] [place] [address] Maria Guadalupe Madrigal [employer] [address] [place] [address] Recurrent UTI (Primary Dx); Suprapubic catheter (CMS/HCC); Neurogenic bladder Social History Tobacco Use Types Packs/Day Years [...] any time in the past 12 [facility], were you homeless or living in a [facility] (including now)? 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 0 03/16/2023 CAGE Questionnaire Score 0 023 Utilities Answer Date Recorded In the past 12 months has [employer], gas, oil, or water [employer] threatened to shut off services in your [...] Sign Reading Time Taken Comments Blood Pressure 112/68 04/01/2025 2:08 PM EDT Pulse 82 04/01/2025 2:08 PM EDT Temperature - - Respiratory Rate - - Oxygen Saturation - - Inhaled Oxygen Concentration - - Weight 60.8 kg (134 lb) 04/01/2025 2:08 PM EDT Height 167.6 cm (5' 5.98 ) 04/01/2025 2:08 PM ED T Body Mass Index 21.64 04/01/2025 2:08 PM EDT documented in this encounter Functional [...] 0 03/09 2:11 PM EDT Kasi Stewart documented as of this encounter Miscellaneous Notes * Progress Notes - Maria Guadalupe Madrigal APRN - 04/01/2025 2:20 PM EDT [facility] Note 04/01/25 CC: Follow-up HPI: Meme Estes is a 64 y.o. F With PMH of cerebral palsy, recurrent UTI, and urinary retention. Previously failed SNS, previously managed with CIC, then changed to indwelling jacobs after a fall and spinal surgeries. Recurrent UTI has tried bladder instillations, vaginal estrogen. Cost issues with Hiprex. She had an SPT placed on 04/21/[address] Tobias. 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 She comes in today for follow up. She was hospitalized and underwent left ureteral stent placeement on 03/28/[address] Leslie for 6mm and 3mm obstructing stone as well as bladder stones Definitive stone management planned in 2-4 weeks. She is on cipro for urine culture that showed enterobacter, morganella, and enterococcus. Today she notes bothersome left flank pain, she has taken oxycodone which takes the edge off. She thinks she has taken ibuprofen as well. She reports that nursing facility continues to flush her SPT twice daily and change it monthly and more often as needed. PMHx: Past Medical History: Diagnosis Date Acute respiratory [...] Postmenopausal atrophic vaginitis Recurrent UTI 03/19/2022 Rocephin 03/15 Seizure (CMS/HCC) Unspecified convulsions (CMS/[facility]) Vitamin B12 deficiency anemia, unspecified Vitamin D deficiency, unspecified PSHx: Past Surgical History: Procedure Laterality Date ANKLE SURGERY N/A Ankle Surgery from [employer] APPENDECTOMY N/A Appendectomy from [employer] BACK SURGERY IR PAIN PUMP IMPLANT/ REPLACEMENT IR PAIN PUMP REMOVAL SACRAL NERVE STIMULATOR PLACEMENT N/A Install Sacral Nerve Neurostimulator By Incision from [employer] SUBMANDIBULAR GLAND EXCISION W/ PAROTID DUCT LIGATION N/A Thyroid Surgery Sub-Total Thyroidectomy from [employer] SUPRAPUBIC CATHETER TUBAL LIGATION N/A Tubal Ligation from [employer] FHx: Family History Problem Relation Name Age of Onset Hypertension Father Heart attack Father Pancreatic cancer Mother SHx: Social History Tobacco Use Smoking status: Never Smokeless tobacco: Never Vaping Use Vaping status: Never Used Substance Use Topics Alcohol use: Never Comment: Alcoholic Drinks/day: Never Drank Alcohol Drug use: Never OBHx: OB History No obstetric history on file. ROS: See HPI Physical Exam: Vitals: 04/01/25 1408 BP: 112/68 Pulse: 82 Physical Exam Vitals reviewed. Constitutional: Appearance: Normal appearance. Pulmonary: Effort: Pulmonary effort is normal. Genitourinary: Comments: Bright yellow urine present in drainage bag Musculoskeletal: Cervical back: Normal range of motion. Comments: In powered chair Skin: General: Skin is dry. Comments: SPT site clean, dry, intact with no redness Neurological: General: No focal deficit present. Mental Status: She is alert and oriented to person, place, and time. Mental status is at baseline. Psychiatric: Mood and Affect: Mood normal. Behavior: Behavior normal. Thought Content: Thought content normal. Judgment: Judgment normal. Results/Data: Recent Results (from the past 72 hours) Phosphorus, Plasma Collection Time: 03/30/25 2:35 AM Result Value Ref Range Phosphorus, Plasma 3.8 2.5 - 4.5 mg/dL Magnesium, Plasma Collection Time: 03/30/25 2:35 AM Result Value Ref Range Magnesium, Plasma 2.0 1.9 - 2.4 mg/dL CBC and Differential Collection Time: 03/30/25 2:35 AM Result Value Ref Range WBC Count 5.30 3.70 - 10.30 10*3/uL RBC Count 4.27 3.90 - 5.20 10*6/uL HGB 11.0 (L) 11.2 - 15.7 g/dL HCT 35.2 34.0 - 45.0 % Platelet Count 148 (L) 155 - 369 10*3/uL MCV 82 79 - 98 fL MCH 25.8 (L) 26.0 - 32.0 pg MCHC 31.3 30.7 - 35.5 g/dL RDW 15.1 (H) 11.5 - 14.5 % MPV 9.2 8.8 - 12.5 fL nRBC 0.0 <=0.0 per 100 WBCs Differential Type Automated Neutrophils % 66 % Lymphocytes % 23 % Monocytes % 6 % Eosinophils % 3 % Basophils % 1 % Immature Granulocytes % 1 % Neutrophils Absolute 3.54 1.60 - 6.10 10*3/uL Lymphocytes Absolute 1.22 1.20 - 3.90 10*3/uL Monocytes Absolute 0.33 0.30 - 0.90 10*3/uL Eosinophils Absolute 0.14 0.00 - 0.50 10*3/uL Basophils Absolute 0.03 0.00 - 0.10 10*3/uL Immature Granulocytes Absolute 0.04 0.00 - 0.06 10*3/uL Basic metabolic panel Collection Time: 03/30/25 2:35 AM Result Value Ref Range Glucose, Plasma 101 (H) 74 - 99 mg/dL BUN, Plasma 6 (L) 8 - 23 mg/dL Creatinine, Plasma 0.27 (L) 0.60 - 1.10 mg/dL BUN/Creatinine Ratio 22 Sodium, Plasma 142 136 - 145 mmol/L Potassium, Plasma 3.1 (L) 3.6 - 4.9 mmol/L Chloride, Plasma 110 (H) 97 - 107 mmol/L CO2, Plasma 22 22 - 29 mmol/L Anion Gap 10 6 - 16 mmol/L Total Calcium, Plasma 8.3 (L) 8.9 - 10.2 mg/dL eGFRcr 120.2 mL/min/1.73m*2 No results found for: URVOL Labs: No results found for: HGBA1C Lab Results Component Value Date GLUCOSE 101 (H) 03/30/2025 CALCIUM 8.3 (L) 03/30/2025 NA 142 03/30/2025 K 3.1 (L) 03/30/2025 CO2 22 03/30/2025 CL 110 (H) 03/30/2025 BUN 6 (L) 03/30/2025 CREATININE 0.27 (L) 03/30/2025 EGFR 120.2 03/30/2025 Recent Results (from the past week) CMP Collection Time: 03/28/25 1:14 AM Result Value Ref Range Glucose, Plasma 78 74 - 99 mg/dL BUN, Plasma 18 8 - 23 mg/dL Creatinine, Plasma 0.41 (L) 0.60 - 1.10 mg/dL BUN/Creatinine Ratio 44 Sodium, Plasma 141 136 - 145 mmol/L Potassium, Plasma 3.9 3.6 - 4.9 mmol/L Chloride, Plasma 107 97 - 107 mmol/L CO2, Plasma 25 22 - 29 mmol/L Anion Gap 9 6 - 16 mmol/L Total Calcium, Plasma 8.2 (L) 8.9 - 10.2 mg/dL Total Protein 6.4 6.3 - 7.9 g/dL Albumin, Plasma 3.8 3.5 - 5.2 g/dL AST, Plasma 13 10 - 35 U/L ALT, Plasma 7 (L) 10 - 35 U/L Alkaline Phosphatase, Plasma 82 46 - 142 U/L Total Bilirubin, Plasma <0.2 (L) 0.2 - 1.1 mg/dL eGFRcr 108.7 mL/min/1.73m*2 Magnesium Collection Time: 03/28/25 1:14 AM Result Value Ref Range Magnesium, Plasma 2.0 1.9 - 2.4 mg/dL Phosphorus Collection Time: 03/28/25 1:14 AM Result Value Ref Range Phosphorus, Plasma 3.7 2.5 - 4.5 mg/dL C-Reactive protein Collection Time: 03/28/25 1:14 AM Result Value Ref Range CRP, Plasma 4.1 <=8.0 mg/L Procalcitonin Collection Time: 03/28/25 1:14 AM Result Value Ref Range Procalcitonin, Plasma <0.06 <0.09 ng/mL CBC w/diff Collection Time: 03/28/25 1:14 AM Result Value Ref Range WBC Count 6.86 3.70 - 10.30 10*3/uL RBC Count 4.64 3.90 - 5.20 10*6/uL HGB 12.0 11.2 - 15.7 g/dL HCT 38.0 34.0 - 45.0 % Platelet Count 202 155 - 369 10*3/uL MCV 82 79 - 98 fL MCH 25.9 (L) 26.0 - 32.0 pg MCHC 31.6 30.7 - 35.5 g/dL RDW 15.1 (H) 11.5 - 14.5 % MPV 10.1 8.8 - 12.5 fL nRBC 0.0 <=0.0 per 100 WBCs Differential Type Automated Neutrophils % 63 % Lymphocytes % 27 % Monocytes % 7 % Eosinophils % 2 % Basophils % 0 % Immature Granulocytes % 1 % Neutrophils Absolute 4.37 1.60 - 6.10 10*3/uL Lymphocytes Absolute 1.82 1.20 - 3.90 10*3/uL Monocytes Absolute 0.45 0.30 - 0.90 10*3/uL Eosinophils Absolute 0.10 0.00 - 0.50 10*3/uL Basophils Absolute 0.03 0.00 - 0.10 10*3/uL Immature Granulocytes Absolute 0.09 (H) 0.00 - 0.06 10*3/uL Vitamin D 25 Hydroxy Collection Time: 03/28/25 1:14 AM Result Value Ref Range Vitamin D 25 Hydroxy 32.2 20.0 - 80.0 ng/mL Vitamin D 1,25 dihydroxy Collection Time: 03/28/25 1:14 AM Result Value Ref Range VITAMIN D, 1, 25-DIHYDROXY 108 (H) 19.9 - 79.3 pg/mL TSH Reflex FT4 Collection Time: 03/28/25 1:14 AM Result Value Ref Range Thyroid Stimulating Hormone, Plasma 7.49 (H) 0.40 - 4.20 uIU/mL Free T4, Plasma Collection Time: 03/28/25 1:14 AM Result Value Ref Range Free T4, Plasma 1.2 0.8 - 1.7 ng/dL Urinalysis with reflex microscopic (Culture NOT Included) Collection Time: 03/28/25 3:27 AM Result Value Ref Range Color, Urine Yellow Clarity, Urine Cloudy Spec [place], Urine 1.025 1.005 - 1.030 pH, Urine 6.0 5.0 - 8.0 Protein, Urine 100 (A) Negative mg/dL Glucose, Urine Negative Negative mg/dL Ketones, Urine Negative Negative mg/dL Blood, Urine Large (A) Negative Bilirubin, Urine Negative Negative Urobilinogen, Urine 0.2 0.2 to 1.0 mg/dL Leukocytes, Urine Moderate (A) Negative Nitrite, Urine Positive (A) Negative RBC, Urine Unable to estimate due to obscuring WBC's (UNEWBC) 0 to 3 /HPF WBC, Urine >50 (A) 0 to 5 /HPF Squamous Epithelial Cells Unable to estimate due to obscuring WBC's (UNEWBC) 0 to 5 /HPF Hyaline Casts Unable to estimate due to obscuring WBC's (UNEWBC) 0 to 5 /LPF Bacteria, Urine Present Negative Urine Hunter Panel Collection Time: 03/28/25 3:27 AM Result Value Ref Range Extra Sent for Culture Urine Culture Collection Time: 03/28/25 3:27 AM Specimen: Urine, Clean Catch Result Value Ref Range Culture >=100,000 CFU/mL Mixed urogenital, fecal, or skin thaddeus present. Multi Drug Resistance Test Collection Time: 03/28/25 5:49 AM Specimen: Nares and Anabella Rectal; Swab Result Value Ref Range Culture No growth at day 1 Urine Culture Collection Time: 03/28/25 11:48 AM Specimen: Bladder; Urine Result Value Ref Range Culture 1,000 - 10,000 CFU/mL Enterobacter cloacae complex (A) Culture 1,000 - 10,000 CFU/mL Morganella morganii (A) Culture >=10,000 CFU/mL - Biotype 1 Enterococcus faecalis (A) Culture >=10,000 CFU/mL - Biotype 2 Enterococcus faecalis (A) Susceptibility Enterococcus faecalis - [place] Ampicillin 1 Susceptible ug/ml Daptomycin <=1 Susceptible ug/ml Gentamicin Synergy, 500 UG/ML* <=500 Susceptible ug/ml * Synergy of aminoglycoside with Penicillin is likely. Serious Enterococcal infections require combined therapy with high dose Ampicillin or Vancomycin plus Gentamicin or Streptomycin. Levofloxacin 2 Susceptible ug/ml Linezolid <=1 Susceptible ug/ml Penicillin G 4 Susceptible ug/ml Streptomycin Synergy, 1000 UG/ML* <=1,000 Susceptible ug/ml * Synergy of aminoglycoside with Penicillin is likely. Serious Enterococcal infections require combined therapy with high dose Ampicillin or Vancomycin plus Gentamicin or Streptomycin. Tetracycline >8 Resistant ug/ml Vancomycin <=0.5 Susceptible ug/ml Enterococcus faecalis - [place] Ampicillin 2 Susceptible ug/ml Daptomycin <=1 Susceptible ug/ml Gentamicin Synergy, 500 UG/ML* <=500 Susceptible ug/ml * Synergy of aminoglycoside with Penicillin is likely. Serious Enterococcal infections require combined therapy with high dose Ampicillin or Vancomycin plus Gentamicin or Streptomycin. Levofloxacin >4 Resistant ug/ml Linezolid <=1 Susceptible ug/ml Penicillin G 4 Susceptible ug/ml Streptomycin Synergy, 1000 UG/ML* <=1,000 Susceptible ug/ml * Synergy of aminoglycoside with Penicillin is likely. Serious Enterococcal infections require combined therapy with high dose Ampicillin or Vancomycin plus Gentamicin or Streptomycin. Tetracycline >8 Resistant ug/ml Vancomycin 1 Susceptible ug/ml Morganella morganii - [place] Amoxicillin/Clavulanate >16/8 Resistant ug/ml Ampicillin >16 Resistant ug/ml Ampicillin/Sulbactam >16/8 Resistant ug/ml Aztreonam <=2 Susceptible ug/ml Cefazolin >16 Resistant ug/ml Cefepime <=0.5 Susceptible ug/ml Ceftriaxone <=1 Susceptible ug/ml Ciprofloxacin 0.5 Intermediate ug/ml Ertapenem <=0.25 Susceptible ug/ml Gentamicin <=2 Susceptible ug/ml Levofloxacin 0.5 Susceptible ug/ml Meropenem <=0.5 Susceptible ug/ml Nitrofurantoin 64 Resistant ug/ml Piperacillin/Tazobactam <=2/4 Susceptible ug/ml Tetracycline <=2 Susceptible ug/ml Tobramycin <=2 Susceptible ug/ml Trimethoprim/Sulfamethoxazole <=0.5/9.5 Susceptible ug/ml Enterobacter cloacae complex - [place]* Amoxicillin/Clavulanate >16/8 Resistant ug/ml Ampicillin 16 Resistant ug/ml Ampicillin/Sulbactam 16/8 Resistant ug/ml Aztreonam <=2 Susceptible ug/ml Cefazolin >16 Resistant ug/ml Cefepime <=0.5 Susceptible ug/ml Ciprofloxacin <=0.25 Susceptible ug/ml Ertapenem <=0.25 Susceptible ug/ml Gentamicin <=2 Susceptible ug/ml Levofloxacin <=0.25 Susceptible ug/ml Meropenem <=0.5 Susceptible ug/ml Nitrofurantoin >64 Resistant ug/ml Piperacillin/Tazobactam 4/4 Susceptible ug/ml Tetracycline <=2 Susceptible ug/ml Tobramycin <=2 Susceptible ug/ml Trimethoprim/Sulfamethoxazole <=0.5/9.5 Susceptible ug/ml * This organism may produce inducible or derepressed AmpC ??-lactamase, which can lead to treatmentfailure with third-generation cephalosporins (e.g., ceftriaxone, ceftazidime) despite apparent in vitro susceptibility. In serious infections (e.g., bacteremia), agents such as cefepime or carbapenems are preferred. Consider discussing with infectious disease or antimicrobial stewardship team. Phosphorus, Plasma Collection Time: 03/29/25 2:51 AM Result Value Ref Range Phosphorus, Plasma 3.1 2.5 - 4.5 mg/dL Magnesium, Plasma Collection Time: 03/29/25 2:51 AM Result Value Ref Range Magnesium, Plasma 1.9 1.9 - 2.4 mg/dL CBC and Differential Collection Time: 03/29/25 2:51 AM Result Value Ref Range WBC Count 5.04 3.70 - 10.30 10*3/uL RBC Count 4.24 3.90 - 5.20 10*6/uL HGB 10.7 (L) 11.2 - 15.7 g/dL HCT 35.2 34.0 - 45.0 % Platelet Count 172 155 - 369 10*3/uL MCV 83 79 - 98 fL MCH 25.2 (L) 26.0 - 32.0 pg MCHC 30.4 (L) 30.7 - 35.5 g/dL RDW 15.0 (H) 11.5 - 14.5 % MPV 10.0 8.8 - 12.5 fL nRBC 0.0 <=0.0 per 100 WBCs Differential Type Automated Neutrophils % 67 % Lymphocytes % 22 % Monocytes % 7 % Eosinophils % 2 % Basophils % 1 % Immature Granulocytes % 1 % Neutrophils Absolute 3.37 1.60 - 6.10 10*3/uL Lymphocytes Absolute 1.10 (L) 1.20 - 3.90 10*3/uL Monocytes Absolute 0.34 0.30 - 0.90 10*3/uL Eosinophils Absolute 0.12 0.00 - 0.50 10*3/uL Basophils Absolute 0.05 0.00 - 0.10 10*3/uL Immature Granulocytes Absolute 0.06 0.00 - 0.06 10*3/uL Basic metabolic panel Collection Time: 03/29/25 2:51 AM Result Value Ref Range Glucose, Plasma 87 74 - 99 mg/dL BUN, Plasma 12 8 - 23 mg/dL Creatinine, Plasma 0.30 (L) 0.60 - 1.10 mg/dL BUN/Creatinine Ratio 40 Sodium, Plasma 141 136 - 145 mmol/L Potassium, Plasma 3.8 3.6 - 4.9 mmol/L Chloride, Plasma 110 (H) 97 - 107 mmol/L CO2, Plasma 24 22 - 29 mmol/L Anion Gap 7 6 - 16 mmol/L Total Calcium, Plasma 8.0 (L) 8.9 - 10.2 mg/dL eGFRcr 117.2 mL/min/1.73m*2 Phosphorus, Plasma Collection Time: 03/30/25 2:35 AM Result Value Ref Range Phosphorus, Plasma 3.8 2.5 - 4.5 mg/dL Magnesium, Plasma Collection Time: 03/30/25 2:35 AM Result Value Ref Range Magnesium, Plasma 2.0 1.9 - 2.4 mg/dL CBC and Differential Collection Time: 03/30/25 2:35 AM Result Value Ref Range WBC Count 5.30 3.70 - 10.30 10*3/uL RBC Count 4.27 3.90 - 5.20 10*6/uL HGB 11.0 (L) 11.2 - 15.7 g/dL HCT 35.2 34.0 - 45.0 % Platelet Count 148 (L) 155 - 369 10*3/uL MCV 82 79 - 98 fL MCH 25.8 (L) 26.0 - 32.0 pg MCHC 31.3 30.7 - 35.5 g/dL RDW 15.1 (H) 11.5 - 14.5 % MPV 9.2 8.8 - 12.5 fL nRBC 0.0 <=0.0 per 100 WBCs Differential Type Automated Neutrophils % 66 % Lymphocytes % 23 % Monocytes % 6 % Eosinophils % 3 % Basophils % 1 % Immature Granulocytes % 1 % Neutrophils Absolute 3.54 1.60 - 6.10 10*3/uL Lymphocytes Absolute 1.22 1.20 - 3.90 10*3/uL Monocytes Absolute 0.33 0.30 - 0.90 10*3/uL Eosinophils Absolute 0.14 0.00 - 0.50 10*3/uL Basophils Absolute 0.03 0.00 - 0.10 10*3/uL Immature Granulocytes Absolute 0.04 0.00 - 0.06 10*3/uL Basic metabolic panel Collection Time: 03/30/25 2:35 AM Result Value Ref Range Glucose, Plasma 101 (H) 74 - 99 mg/dL BUN, Plasma 6 (L) 8 - 23 mg/dL Creatinine, Plasma 0.27 (L) 0.60 - 1.10 mg/dL BUN/Creatinine Ratio 22 Sodium, Plasma 142 136 - 145 mmol/L Potassium, Plasma 3.1 (L) 3.6 - 4.9 mmol/L Chloride, Plasma 110 (H) 97 - 107 mmol/L CO2, Plasma 22 22 - 29 mmol/L Anion Gap 10 6 - 16 mmol/L Total Calcium, Plasma 8.3 (L) 8.9 - 10.2 mg/dL eGFRcr 120.2 mL/min/1.73m*2 Cultures: Lab Results Component Value Date URINECX 1,000 - 10,000 CFU/mL Enterobacter cloacae complex (A) 03/28/2025 URINECX 1,000 - 10,000 CFU/mL Morganella morganii (A) 03/28/2025 URINECX >=10,000 CFU/mL - Biotype 1 Enterococcus faecalis (A) 03/28/2025 URINECX >=10,000 CFU/mL - Biotype 2 Enterococcus faecalis (A) 03/28/2025 Imaging: Procedures: Assessment: Meme Estes is a 64 y.o. F with Follow-up Here today for follow up of NGB and recurrent UTI. She recently had a ureteral stent placed on 03/28and continues to note left flank pain despite Oxycodone. Will reach out to Dr. Leslie's team to seeif they advise any further medication. Otherwise she will continue to have monthly SPT changes and daily flushes with facility and continue Myrbetriq. Urine obtained, sent for culture. Plan: Continue to change catheter monthly at facility Flush catheter BID at facility Myrbetriq 50 mg daily Follow up in 6 months, sooner if needed. 20 minutes were spent in dedicated E/M time during the date of service, including preparation of the medical chart, review of previous information, data analysis/discussion, and/or discussion with the patient/family/caregiver. Maria Guadalupe Madrigal APRN I documented in this encounter Plan of Treatment Upcoming Encounters Date Type Department Care Team (Late st Contact Info) Description 07/14/2025 8:45 AM EST Appointment [facility] Ultrasound [address] [place] [address] 07/14/2025 10:50 AM EST Office Visit Medical Office Building Urology [address], [address] [place] [address] Zoie Restrepo, [employer] [address] [place] [address] 10/03/2025 11:40 AM EST Office Visit [place] [facility] [address] [place] [address] Maria Guadalupe Madrigal, [employer] [address] [place] [address] documented as of this encounter Procedures Procedure Name Priority Date/Time Associated Diagnosis Comments URINE CULTURE Routine 04/01/2025 2:51 PM EDT Recurrent UTI documented in this encounter Results * Urine Culture (04/01/2025 2:51 PM EDT) Culture No growth at day 1 04/02/2025 1:17 PM EDT [facility] Urine Urine specimen from urinary conduit / Unknown Non-blood Collection / Unknown 04/01/2025 2:51 PM EDT 04/01/2025 4:17 PM EDT us Maria Guadalupe Madrigal APRN LAB MICROBIOLOGY - GENERAL ORDERABLES Final Result [facility] [address] [place] [address] documented in this encounter Visit Diagnoses Diagnosis Recurrent UTI- Primary Urinary tract infection, site not specified Suprapubic catheter (CMS/HCC) Other cystostomy status Neurogenic bladder Neurogenic bladder, NOS documented in this encounter Additional Health Concerns Infection Onset Date Last Indicated Resolved Time 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 Assessment Noted Time PHQ-9 Depression Total Score: 13 07//2 024 1:09 PM EDT A fall risk assessment has been complete d for the patient 04/01/2025 2:11 PM EDT A Body Mass Index follow-up plan has been documented for the patient 04/01/2025 4:11 PM EDT documented as of this encounter Care Teams Childcare Worker Relationship Specialty Start Date End Date Luis Henderson MD [address] [place], [place] [address] PCP - General Internal Medicine 01/10/22 Luis Henderson MD [address] [place] [address] 09/04/21 Kasi Jacobs MD [address] [place] [address] Consulting Physician Neurology 05/17/21 Maria Guadalupe Madrigal APRN [address] [place] [address] Nurse Practitioner Urology 12/03/23 documented as of this encounter
--- OUTSIDE RECORDS SUMMARY | 2025-04-11 07:13 | XMS_ITS | Encounter Summary ---
Author Organization [facility] Address [address] [place] [address] Care Team Providers Care Software Project Engineer Name Role Phone Luis Henderson MD Unavailable [phone] Kasi Jacobs MD Unavailable [phone] Luis Henderson MD Primary Care Provider [phone] Maria Guadalupe Madrigal APRN Unavailable [phone] Reason for Visit * Auth/Cert (Routine) Specialty Diagnoses / Procedures Referred By Contac t Referred To Contact Diagnoses Kidney stone Kidney stone [N20.0] Procedures AK CYSTO/URETERO W/LITHOTRIPSY &INDWELL STENT INSRT CHG X-RAY RETROGRADE PYELOGRAM URETEROSCOPY Yahaira Leslie MD [address] [facility] [address] [place] [address] Phone: tel: fax: [facility] [address] [place] [address] Phone: tel: Referral ID Status Reason Start Date Expiration Date Visits Re quested Visits Authorized [id number] 1 1 Encounter Details Date Type Department Care Team (Latest Contact Info) Description 04/11/2025 7:13 AM EDT - 04/11/2025 2:45 PM EDT Hospital Encounter [facility] [address] [place] [phone] Yahaira Lelsie MD [address] [place] [address] Kidney stone Discharge Disposition: Home or Self Care Social History Tobacco Use Types Packs/Day Years [...] any time in the past [address] [facility], were you homeless or living in a jail (including now)? 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-TRANSPORTATION ASSISTANT) to steady your nerves or to get rid of a hangover? 0 03/16/2023 CAGE Questionnaire Score 0 023 Utilities Answer Date Recorded In the past 12 months has th e electric, gas, oil, or water company threatened to [...] Sign Reading Time Taken Comments Blood Pressure 110/90 04/11/2025 2:00 PM EDT Pulse 95 04/11/2025 2:00 PM EDT Temperature 36.7 C (98.1 F) 04/11/2025 2:00 PM EDT Respiratory Rate 21 04/11/2025 2:00 PM EDT Oxygen Saturation 94% 04/11/2025 2:00 PM EDT Inhaled Oxygen Concentration - - Weight 65.8 kg (145 lb) 04/11/2025 8:17 AM EDT Height 167.6 cm (5' 5.98 ) 04/11/2025 8:17 AM ED T Body Mass Index 23.41 04/11/2025 8:17 AM EDT documented in this encounter Functional Status * Calculated C-SSRS Risk Score (Lifetime/Recent) Answer Date of Assessment Author No Risk Indicated 04/11/2025 8:15 AM EDT Darleen Crenshaw RN * Question Answer Date of Assessment Author 1. Wish to be (Past 1 Month) No 025 8:15 AM EDT Darleen Crenshaw RN 2. Non-Specific Active Suici abeba Thoughts (Past 1 Month) No 04/11/2025 8:15 AM EDT Breanna Crenshaw RN 6. Suicidal Behavior (Lifetime) No 8:15 AM EDT Darleen Crenshaw RN documented as of this encounter Discharge Instructions * Discharge Instructions* Barney Ramirez MD - 04/11/2025 12:50 PM EDT Precautions: - You have received sedation/anesthesia today. You may not drive, drink alcohol, or do anything that requires a clear head for the next 24 hours. Medications: - You should take 0.4mg tamsulosin (Flomax) daily until one day after stent is removed - You may take 200mg phenazopyridine (Pyridium) up to three times daily for stent and bladder discomfort. This medication will make your urine turn orange. - You may take 500mg Tylenol every 6 hours for mild - moderate pain. You may take up to 1000mg every 6 hours but do not take more than 4000mg in a day. - You may also take 600mg ibuprofen (if you normally are able to) every 6 hours for mild-moderate pain. - You may resume your previous medications unless otherwise instructed. Nutrition: - You may resume your normal diet as tolerated, focusing on liquids to keep yourself hydrated. Activity: - You may resume normal physical activity as tolerated - You may not drive for 24 hours after surgery Potential Issues: - It is normal to have some mild bladder, abdominal, or flank discomfort as well as some bladder discomfort - Call the office if you have a fever greater than 101 F - Call the office if you have severe abdominal discomfort, nausea and vomiting, or feeling unwell Follow Up: - You will be contacted by the clinic for a follow up appointment on 04/20/2025 with Yahaira Leslie MD. No needs prior to follow up appointment. Questions or Concerns and Appointments (physicians work at both clinics so confirm your location ahead of your appointment) [facility] Urology Department Clinic at [facility] [address], [address], [address] [place] [address] Clinic After Hours [facility] Building Urology Clinic [address] [place] [address] Clinic After Hours documented in this encounter Medications at Time [...] tablet by mouth 2 times a day. CEFADROXIL PO Take by mouth daily. Cranberry 200 MG capsule Take 200 mg by mouth 2 times a day. dantrolene (Dantrium) 50 MG capsule Take 1 capsule by mouth 3 times a day. fluticasone (Flonase) 50 MCG/ACT nasal spray 04/05/20 2 5 furosemide (Lasix) 20 MG tablet Take 1 [...] for nausea or vomiting. 20 tablet 5 phenazopyridine (Pyridium) 100 MG tablet Take 2 tablets by mouth 3 times a day as needed (Bladder discomfort). 30 tablet 5 senna (Senokot) 8.6 MG tablet 5 sertraline (Zoloft) 100 MG tablet Take 2 tablets by mouth daily. tamsulosin (Flomax) 0.4 MG 24 hr capsule Take 1 capsule by mouth 1 time each day with dinner. 30 capsule 5 tamsulosin (Flomax) 0.4 MG 24 hr capsule Take 1 capsule by mouth 1 time each day with dinner. Please take the medication until 1 day after removal of your stent 30 capsule 5 05/11/20 25 tiZANidine (Zanaflex) 4 MG tablet Take 1 tablet by mouth 2 times a day. traMADol (Ultram) 50 MG tablet 5 traZODone (Desyrel) 50 MG tablet Take 1 tablet by mouth nightly. acetaminophen (Tylenol) 500 MG tablet Take 2 tablets by mouth every 6 hours as needed for pain for up to 10 days. 80 tablet 5 04/21/20 documented as of this encounter Miscellaneous Notes * Anesthesia PACU Signout - Tri Navarro MD - 04/11/2025 2:00 PM EDT Patient: Meme Estes Anesthesia Type: general Vitals Value Taken Time BP 111/90 04/11/25 14:02 Temp 36.7 ??C (98.1 ??F) 04/11/25 13:45 Pulse 97 04/11/25 14:08 Resp 16 04/11/25 14:08 SpO2 95 % 04/11/25 14:08 Vitals shown include unfiled device data. Anesthesia PACU Signout Patient location during evaluation: PACU Patient participation: complete - patient participated Level of consciousness: baseline and awake Pain management: adequate (pain score 0-3) Airway patency: natural airway Hydration status: acceptable PONV: none Cardiovascular status: acceptable and hemodynamically stable Respiratory status: acceptable, spontaneous ventilation, unassisted, nonlabored ventilation and room air Discharge Disposition: home Cosigned by Ta Grace DO at 04/11/2025 2:26 PM EDT Associated attestation - Ta Grace DO - 04/11/2025 2:26 PM EDT Signature only. * Ashley Ibarra - Odalys Pyle RN - 04/11/2025 1:55 PM EDT Images from the original note were not included. 113 Post-Anesthesia and Postoperative Instructions ([place]) In order to have a fast and comfortable recovery at home, please follow these instructions. ? A responsible adult must be present for you to be discharged. ? Do not drive, drink alcohol or make important decisions for 24 hours after surgery. ? You may feel like resting more than normal after surgery. Start slowly and be more active each day. ? Start slowly with liquids like 7-up, tea, apple juice or broth. Eat more as your stomach allows. If you feel sick to your stomach, go back to drinking liquids. ? You may feel some discomfort after surgery. Take the medicine as directed by your caregiver. If your medicine makes you drowsy, do not drink alcohol, drive or operate heavy equipment for at least 24 hours after use. ? If you are taking antibiotics, take them until they are all gone even if you feel well. ? Cover your wound or bandage when showering, unless your doctor tells you differently. ? A small amount of drainage on your bandage is normal. Do not remove your bandage unless your doctor tells you to. Please keep track of information about the medicines you take. Follow these tips to manage your medicines. ? Keep a list of all your medicines. Update the list when you start or stop taking a medicine. Write down changes in how you should take them. ? Carry your medicine list with you at all times. It will be needed if you have a health emergency . ? Give the list to your family doctor. Take the list to all your doctor visits. Call your doctor if you have any of the following ? Temperature higher than 101.5??F ? Chest pain or difficulty breathing ? Stomach sickness or throwing up that does not go away ? You cannot urinate by bedtime ? Pain is not helped by your medicine. ? Bandage becomes soaked with blood - Don't remove the bandage, reinforce only ? Swelling, redness, pain or pus from incision ? Questions or concerns about your surgery. In the event of an emergency, please go to the closest Emergency Room or call the Emergency Department at [phone]. Smoking and its health risks ? Smoking is the most preventable cause of illness and in the [place]. Cigarettes are filled with poison that goes into the lungs as you inhale. About 440,000 people every year from illnesses caused by smoking. People who smoke earlier than those who do not smoke. ? Heart and blood vessel disease, lung disease and ulcers are just some of the health problems thatmay be caused by smoking. Smoking also slows bone and wound healing and may slow your recovery fromsurgery. ? For help quitting smoking, call the [employer] [place]'s Quitline toll free at or ask your doctor for help. Weight Management ? Weighing too much is not good for your health. Being overweight increases your risk of health conditions such as heart problems, high blood pressure, type 2 diabetes, and certain types of cancer. Being overweight can also increase your risk for osteoarthritis (gi-qxg-uw-lto-QBKQ-xlp) (joint disease), sleep apnea (abnormal breathing at night) or other respiratory (breathing) problems. Being overweight may also cause a person to feel sad or be treated differently by others. ? The best way to lose weight is to eat fewer calories and get regular exercise. Eating more calories than you need will cause you to gain weight. Try to cut down your calories by 500 calories per day. For example, cut down on one soda (about 150 calories), a small bag of regular potato chips (about 150 calories) and one chocolate bar (about 250 calories). For most people, this change will resultin a slow weight loss of about one pound a week. Exercise (for example, walk, swim, or bicycle) forat least 30 minutes on most days of the week. You will be more likely to keep weight off if you make lifelong lifestyle changes. ? Aim for a slow, steady weight loss. Losing even a small amount of weight can lower your risk of health problems. Ask your dietitian, textile cutting machine operator or doctor about a weight loss goal that is right for you. 08/19 * Op Note - Yahaira Leslie MD - 04/11/2025 11:08 AM EDT Date of Surgery: 04/11/25 Procedure Performed: Cystoscopy with left ureteroscopy Laser lithotripsy Basket extraction of stones left ureteral stent placement Preoperative Diagnosis: left ureteral stones, renal stones Postoperative Diagnosis: Same Surgeon: Yahaira Leslie MD Textile Cutting Machine Operator Surgeon: DO Barney Navarro MD Intraoperative Findings: Intraoperative fluoroscopy was used to confirm proper placement of the ureteral stents. Other findings include ureteral and renal stones Indications: Meme Estes is a 64 y.o. female with PMH CP, NGB s/p SPT in 04/2024, recurrent UTI presenting with left ureteral stones, hydronephrosis, and left flank pain. CT imaging at OSH demonstrated 6mm and 3 mm proximal mid left ureteral stones with upstream moderate left hydroureteronephrosis. Additional small non-obstructing stones in bilateral lower poles. UA concerning for infection. She wastaken for ureteral stent placement and cystolithalopaxy on 03/28/2025. She presents today for definitive treatment of her left sided stones. . Anesthesia: General Complications: None Drains: L 6 Fr X 24 cm stent not on strings 16 Fr SPT Specimens: Left ureteral and renal stones for culture and analysis EBL: Min. Procedure in Detail: After informed consent was obtained, the patient was brought into the surgical suite. The patient was placed in the dorsal lithotomy position. General anesthesia was administered, SCDs were placed onthe patient and preoperative antibiotics were administered prior to the start of the case. A 19 Fr rigid cystoscope was introduced into the patient's urethral meatus and advanced into the urinary bladder. The bladder was examined and did not have any masses or stones. Sensor wire was placed into left kidney under fluoroscopy. We used a semi rigid ureteroscope to clear the distal ureter. We then accessed the first stone with a flexible ureteroscope and removed it with a 1.9 basket. The second stone was larger and impacted so we elected to place a sheath. We were able to place a second working wire. A 12/14 Fr 36 cm access sheath was then placed to the mid ureter just distal to the stone. Flexible ureteroscopy was performed and demonstrated impacted mid ureteral stone. We then used a 200 fiber to fragment the stones. We then used a 1.9 basket to remove fragments. At the conclusion there was noted to be no fragments larger than 2 mm. We then removed the scope and sheath showing moderate scarring at the area of impacted stone. left 6 Fr by 24 cm stent was then placed. Proximal curl was confirmed to be in the kidney on fluoroscopy. Wire was removed and distal curl was confirmed to be in the bladder. The patient tolerated the procedure well and was awakened from anesthesia without difficulty. Postoperative Plan: Stent removal in clinic in 10 days due to increased risk of stricture from ureteral stone Yahaira Leslie MD * Perioperative Nursing Note - Darleen Crenshaw RN - 04/11/2025 9:59 AM EDT Called [facility] for medication history. Spoke to Breann Skelton RN, medication history obtained. * Progress Notes - Angle Quiles PharmD - 04/11/2025 8:13 AM EDT Images from the original note were not included. Pharmacy to dose Pre-Op Antibiotics - Pharmacy has been consulted to dose Pre-Op antibiotics based on most recent culture data Based on the culture above, the following is recommended: Cefepime 2 g IV , Vancomycin 15 mg/kg. This has been communicated to the provider. Orders have been entered. Thank you for this consult, Thank you, Angle Quiles, Pharm.D., BCCCP, BCPS Surgery Pharmacist, [facility] 8:12 AM * H&P - Barney Ramirez MD - 04/11/2025 6:51 AM EDT Subjective Chief complaint Left Ureteral Stones History Of Present Illness Meme Estes is a 64 y.o. female presenting with PMH CP, NGB s/p SPT in 04/2024, recurrent UTI presenting with left ureteral stones, hydronephrosis, and left flank pain. CT imaging at OSH demonstrated 6 mm and 3 mm proximal mid left ureteral stones with upstream moderate left hydroureteronephrosis. Additional small non-obstructing stones in bilateral lower poles. UA concerning for infection. She was taken for ureteral stent placement and cystolithalopaxy on 03/28/2025. She presents todayfor definitive treatment of her left sided stones. Medical/Surgical/Social/Family History I have reviewed and updated the patient history. Allergies Methenamine, Methotrexate, Metoclopramide, Morphine, Reglan [metoclopramide], Sulfa drugs, and Sulfacetamide Medications Current Medications[1] Objective Review of Systems All other systems reviewed and are negative. Physical Exam HENT: Nose: Nose normal. Mouth/Throat: Mouth: Mucous membranes are moist. Pharynx: Oropharynx is clear. Cardiovascular: Rate and Rhythm: Normal rate. Pulmonary: Effort: Pulmonary effort is normal. Abdominal: General: Abdomen is flat. Palpations: Abdomen is soft. Skin: General: Skin is warm and dry. Neurological: General: No focal deficit present. Psychiatric: Mood and Affect: Mood normal. Behavior: Behavior normal. Last Recorded Vitals There were no vitals taken for this visit. Results Review {Vanishing Link Review Results :[id number] I have reviewed the latest lab and imaging results. Assessment & Plan Kidney stone The diagnoses, recommended procedures, and plan of care was once again discussed in detail with thepatient. All risks, benefits, and alternatives of the procedure were clearly elucidated. All questions were solicited and answered to satisfaction. Informed consent was obtained. We will proceed today with operative management as discussed. - To OR for Left Ureteroscopy with Laser Lithotripsy - Intraoperative Cefepime Medically Ready for Discharge:Anticipated Today [1] No current facility-administered medications for this encounter. Current Outpatient Medications Medication Sig Dispense Refill acetaminophen (Tylenol) 500 MG tablet Take 2 tablets by mouth every 8 hours as needed for pain or headaches. alendronate (Fosamax) 70 MG tablet Take 1 tablet by mouth every 7 days. Take in the morning with a full glass of water, on an empty stomach, and do not take anything else by mouth or lie down for thenext 30 min. Calcium Carbonate-Vitamin D (calcium-vitamin D) 500-200 MG-UNIT tablet Take 1 tablet by mouth 2 times a day. CEFADROXIL PO Take by mouth daily. Cranberry 200 MG capsule Take 200 mg by mouth 2 times a day. dantrolene (Dantrium) 50 MG capsule Take 1 capsule by mouth 3 times a day. furosemide (Lasix) 20 MG tablet Take 1 tablet by mouth daily. gabapentin (Neurontin) 400 MG capsule Take 1 capsule by mouth 3 times a day. hydrOXYzine pamoate (Vistaril) 25 MG capsule ibuprofen 600 MG tablet Take 1 tablet by mouth every 6 hours as needed for mild pain. lactulose (Chronulac) 10 GM/15ML solution Take 30 mL by mouth daily as needed (for constipation). levETIRAcetam (Keppra) 500 MG tablet Take 1 tablet by mouth 2 times a day. levothyroxine (Synthroid, Levoxyl) 200 MCG tablet Take 1 tablet by mouth daily before breakfast. linaCLOtide (Linzess) 145 MCG capsule Take 1 capsule by mouth daily. loratadine (Claritin) 10 MG tablet melatonin tablet Take 2 tablets by mouth nightly. midodrine (Proamatine) 5 MG tablet Take 1 tablet by mouth 2 times a day. mirabegron ER (Myrbetriq) 50 MG tablet Take 1 tablet by mouth daily. multivitamin (Theragran-M) tablet Take 1 tablet by mouth daily. ondansetron ODT (Zofran-ODT) 4 MG disintegrating tablet Dissolve 1 tablet on the tongue every 6 hours as needed for nausea or vomiting. 20 tablet 0 sertraline (Zoloft) 100 MG tablet Take 2 tablets by mouth daily. tamsulosin (Flomax) 0.4 MG 24 hr capsule Take 1 capsule by mouth 1 time each day with dinner. 30 capsule 0 tiZANidine (Zanaflex) 4 MG tablet Take 1 tablet by mouth 2 times a day. traZODone (Desyrel) 50 MG tablet Take 1 tablet by mouth nightly. Calcium Antacid 500 MG chewable tablet (Patient not taking: Reported on 04/04/2025) Lidocaine 4 % patch Apply 1 patch topically daily. (Patient not taking: Reported on 04/04/2025) methylPREDNISolone (Medrol Dospak) 4 MG tablets Take by mouth. Follow schedule on package instructions (Patient not taking: Reported on 04/04/2025) Milk of Magnesia 1200 MG/15ML suspension (Patient not taking: Reported on 04/04/2025) Misc Natural Products (Iberogast) capsule Take 1 capsule by mouth 2 times a day. naloxone (Narcan) 4 mg/0.1 mL nasal spray 1. Give 1 spray in nostril for no/slow breathing or cannot wake after opioid use 2. Call 911 3. Repeat in other nostril if symptoms continue 1 each 0 traMADol (Ultram) 50 MG tablet (Patient not taking: Reported on 04/04/2025) Cosigned by Yahaira Leslie MD at 04/11/2025 10:25 AM EDT Associated attestation - Yahaira Leslie MD - 04/11/2025 10:25 AM EDT I saw and evaluated the patient with the resident/fellow. I discussed the case with the resident/fellow and agree with the findings and plan as documented. * PAT Phone Note - Rashmi John RN - 04/04/2025 12:18 PM EDT HPI Meme Estes is a 64 y.o. female who presents with Pre-op Diagnosis * Kidney stone [N20.0] now scheduled for URETEROSCOPY (Left). 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 Cerebral palsy Cerebral palsy, [...] vaginitis Recurrent UTI 03/19/2022 Rocephin 7 Seizure (CMS/HCC) Suprapubic catheter (CMS/HCC) Unspecified convulsions (CMS/HCC) Vitamin B12 deficiency anemia, unspecified Vitamin D deficiency, unspecified [2] Family History Problem Relation Name Age of Onset Hypertension Father Heart attack Father Pancreatic cancer Mother [3] Social History Tobacco Use Smoking status: Never Smokeless tobacco: Never Vaping Use Vaping status: Never Used Substance Use Topics Alcohol use: Never Comment: Alcoholic Drinks/day: Never Drank Alcohol Drug use: Never [4] Past Surgical History: Procedure Laterality Date ANKLE SURGERY N/A Ankle Surgery from [facility] APPENDECTOMY N/A Appendectomy from [facility] BACK SURGERY IR PAIN PUMP IMPLANT/ REPLACEMENT IR PAIN PUMP REMOVAL SACRAL NERVE STIMULATOR PLACEMENT N/A Install Sacral Nerve Neurostimulator By Incision from [facility] SUBMANDIBULAR GLAND EXCISION W/ PAROTID DUCT LIGATION N/A Thyroid Surgery Sub-Total Thyroidectomy from [facility] SUPRAPUBIC CATHETER TUBAL LIGATION N/A Tubal Ligation from [facility] [5] Allergies Allergen Reactions Methenamine Itching, Rash and Swelling Methotrexate Other - please document in the comment field Metoclopramide Other - please document in the comment field Petechiae on her legs Morphine Unknown - Patient states they do not know rxn details Reglan [Metoclopramide] Unknown - Patient states they do not know rxn details Sulfa Drugs Rash Sulfacetamide Rash [6] No current facility-administered medications for this encounter. Current Outpatient Medications: acetaminophen, Take 2 tablets by mouth every 8 hours as needed for pain or headaches. alendronate, Take 1 tablet by mouth every 7 days. Take in the morning with a full glass of water, on an empty stomach, and do not take anything else by mouth or lie down for the next 30 min. calcium-vitamin D, Take 1 tablet by mouth 2 times a day. CEFADROXIL PO, Take by mouth daily. ciprofloxacin, Take 1 tablet by mouth 2 times a day for 7 days. Cranberry, Take 200 mg by mouth 2 times a day. dantrolene, Take 1 capsule by mouth 3 times a day. furosemide, Take 1 tablet by mouth daily. gabapentin, Take 1 capsule by mouth 3 times a day. hydrOXYzine pamoate, ibuprofen, Take 1 tablet by mouth every 6 hours as needed for mild pain. lactulose, Take 30 mL by mouth daily as needed (for constipation). levETIRAcetam, Take 1 tablet by mouth 2 times a day. levothyroxine, Take 1 tablet by mouth daily before breakfast. linaCLOtide, Take 1 capsule by mouth daily. loratadine, melatonin, Take 2 tablets by mouth nightly. midodrine, Take 1 tablet by mouth 2 times a day. mirabegron ER, Take 1 tablet by mouth daily. multivitamin, Take 1 tablet by mouth daily. ondansetron ODT, Dissolve 1 tablet on the tongue every 6 hours as needed for nausea or vomiting. sertraline, Take 2 tablets by mouth daily. tamsulosin, Take 1 capsule by mouth 1 time each day with dinner. tiZANidine, Take 1 tablet by mouth 2 times a day. traZODone, Take 1 tablet by mouth nightly. Calcium Antacid, Lidocaine, Apply 1 patch topically daily. (Patient not taking: Reported on 04/04/2025) methylPREDNISolone, Take by mouth. Follow schedule on package instructions (Patient not taking: Reported on 04/04/2025) Milk of Magnesia, Iberogast, Take 1 capsule by mouth 2 times a day. naloxone, 1. Give 1 spray in nostril for no/slow breathing or cannot wake after opioid use 2. Call 911 3. Repeat in other nostril if symptoms continue traMADol, * Preprocedure Instructions - Rashmi John RN - 04/04/2025 12:16 PM EDT Home Medication Instructions Current Medications Medication Instructions acetaminophen (Tylenol) 500 MG tablet Take as needed alendronate (Fosamax) 70 MG tablet Hold day of surgery Calcium Carbonate-Vitamin D (calcium-vitamin D) 500-200 MG-UNIT tablet Hold day of surgery CEFADROXIL PO Take as prescribed ciprofloxacin (Cipro) 500 MG tablet Take as prescribed Cranberry 200 MG capsule Hold day of surgery dantrolene (Dantrium) 50 MG capsule Take morning of surgery furosemide (Lasix) 20 MG tablet Hold day of surgery gabapentin (Neurontin) 400 MG capsule Take morning of surgery hydrOXYzine pamoate (Vistaril) 25 MG capsule Take morning of surgery ibuprofen 600 MG tablet Hold 3-5 days before surgery lactulose (Chronulac) 10 GM/15ML solution Hold day of surgery levETIRAcetam (Keppra) 500 MG tablet Take morning of surgery levothyroxine (Synthroid, Levoxyl) 200 MCG tablet Take morning of surgery linaCLOtide (Linzess) 145 MCG capsule Hold day of surgery loratadine (Claritin) 10 MG tablet Take as needed melatonin tablet Take night before surgery midodrine (Proamatine) 5 MG tablet Take morning of surgery mirabegron ER (Myrbetriq) 50 MG tablet Take morning of surgery multivitamin (Theragran-M) tablet Hold day of surgery ondansetron ODT (Zofran-ODT) 4 MG disintegrating tablet Take as needed sertraline (Zoloft) 100 MG tablet Take morning of surgery tamsulosin (Flomax) 0.4 MG 24 hr capsule Take morning of surgery tiZANidine (Zanaflex) 4 MG tablet Take morning of surgery traZODone (Desyrel) 50 MG tablet Take night before surgery You will be called the business day before surgery with your arrival time Your surgery is at [facility] located at [address] [place] [address] Please park in the parking garage and enter the building at Entrance A and check-in inside Do not eat any food after midnight the night before your surgey. Do not drink any coffee or tea butyou can have clear liquids up to 2 hours prior to arrival. Do not try to get all your hydration in 2 hours prior to your arrival. Start the day before surgery drinking more than you normally would. After midnight, you can have clear liquids: water, apple juice, Gatorade or Powerade up to 2 hours prior to arrival time No alcohol within 24 hours of surgery Do not smoke, vape or use any tobacco products after midnight the night before your surgery Arrive on time to avoid delays You MUST have a responsible adult available for transport to and from hospital If you spend the night in the hospital you are allowed to have one adult visitor spend the night inyour room You are allowed to have 2 adult visitors with you on the day of surgery Bring insurance card, photo ID, along with power of criminal attorney, guardianship or advanced directives if applicable Do not bring any valuables Hibiclens bathing instructions reviewed if applicable; if you do not receive Hibiclens you may buy Dial antibacterial soap and shower with it the night before your surgery and the morning of surgery Notify surgeon of fever, illness, any changes or if you decide not to have surgery documented in this encounter Plan of Treatment Upcoming Encounters Date Type Department Care Team (Late st Contact Info) Description 07/14/2025 8:45 AM EST Appointment [facility] [address] [place] [address] 07/14/2025 10:50 AM EST Office Visit Medical Office Building Urology [address], [address] [place] [address] Zoie Restrepo, LEVELER HELPER [address] [place] [address] 10/03/2025 11:40 AM EST Office Visit [facility] Urology [address] [place] [address] Maria Guadalupe Madrigal, LEVELER HELPER [address] [place] [address] documented as of this encounter Goals Goal Patient Goal Type Associated Problems Recent Progress Patient-Stated? Author Autogenerat ed Goal Care Plan Autogenerated Problem Maria Guadalupe [place] documented as of this encounter Procedures Procedure Name Priority Date/Time Associated Diagnosis Comments FL LESS THAN 1 HOUR (NON-REPORTABLE) Routine 04/11/2025 12:28 PM EDT ROUTINE CULTURE AND GRAM STAIN Routine 04/11/2025 11:29 AM EDT Kidney stone CALCULI (KIDNEY STONE)ANALYSIS (SO) STAT 04/11/2025 11:27 AM EDT Kidney stone ADDED ON URETERAL STENT PLACEMENT 04/11/2025 10:31 AM EDT Kidney stone URETEROSCOPY, WITH LASER LITHOTRIPSY 04/11/2025 10:31 AM EDT Kidney stone documented in this encounter Results * FL Less than 1 Hour Intraoperative (04/11/2025 12:28 PM EDT) Narrative IMAGING - 04/11/2025 12:31 PM EDT Images were obtained for surgical purposes. See Yahaira Leslie's surgical note in the patient's chart for the findings. Yahaira Leslie MD IMG FLUOROSCOPY PROCEDURES F inal Result IMAGING * (ABNORMAL) Routine Culture and Gram Stain (04/11/2025 11:29 AM EDT) Culture Light Growth 04/16/2025 3:48 PM EDT [facility] Culture 1+ Enterococcus faecalis(A) SAMARA 04/16/2025 3:48 PM EDT [facility] Comment: This isolate has been identified using the FDA Approved [employer] [place] System Edited result: Previously reported as Gram positive cocci on 04/12/2025 at 1125 EDT. Culture 1+ Enterococcus raffinosus(A) SAMARA 04/16/2025 3:48 PM EDT [facility] Comment: This isolate has been identified using the FDA Approved [employer] [place] System The organism value for this result has been updated. These results have been appended to the previously preliminary verified report. Calculus Structure of left ureter / Unknown 04/11/2025 11:29 AM EDT 04/11/2025 1:03 PM EDT Comment:Pre-op diagnosis: Kidney stone [N20.0] Narrative Organism Antibiotic Method Susceptibility Enterococcus faecalis Ampicillin SAMARA 1 ug/ml: Susceptible Enterococcus faecalis Daptomycin SAMARA 2 ug/ml: Susceptible Enterococcus faecalis Gentamicin Synergy , 500 UG/ML SAMARA >500 ug/ml: Resistant Comment:Synergy of a minoglycoside with Penicillin is NOT likely. Serious Enterococcal infections require combine therapy with high dose Ampicillin or Vancomycin plus Gentamicin or Streptomycin. Enterococcus faecalis Linezolid SAMARA <=1 ug/ml: Susceptible Enterococcus faecalis Penicillin G SAMARA 8 ug/ml: Susceptible Enterococcus faecalis Streptomycin Syner gy, 1000 UG/ML SAMARA <=1,000 ug/ml: Susceptible Comment:Synergy of a minoglycoside with Penicillin is likely. Serious Enterococcal infections require combined therapy with high dose Ampicillin or Vancomycin plus Gentamicin or Streptomycin. Enterococcus faecalis Vancomycin SAMARA 1 ug/ml: Susceptible Enterococcus raffinosus Ampicillin ETEST 4.0 ug/ml: Susceptible Enterococcus raffinosus Daptomycin ETEST 0.75 ug/ml: Susceptible Enterococcus raffinosus Gentamicin Syner gy, 500 UG/ML ETEST <=500 ug/ml: Susceptible Comment:Synergy of a minoglycoside with Penicillin is likely. Serious Enterococcal infections require combined therapy with high dose Ampicillin or Vancomycin plus Gentamicin or Streptomycin. Enterococcus raffinosus Linezolid ETEST 1.0 ug/ml: Susceptible Enterococcus raffinosus Penicillin G ETEST 6.0 ug/ml: Susceptible Enterococcus raffinosus Streptomycin Syn ergy, 1000 UG/ML ETEST >1,000 ug/ml: Resistant Comment:Synergy of a minoglycoside with Penicillin is NOT likely. Serious Enterococcal infections require combine therapy with high dose Ampicillin or Vancomycin plus Gentamicin or Streptomycin. Enterococcus raffinosus Vancomycin ETEST 2.0 ug/ml: Susceptible Yahaira Leslie MD LAB MICROBIOLOGY - GENERAL O RDERABLES Final Result [facility] [address] [place] [address] * Calculi (Kidney Stone) Analysis (04/11/2025 11:27 AM EDT) Calculi Mass 25 mg 04/15/2025 9:29 AM EDT [facility] Calculi Description See Note 04/15/2025 9:29 AM EDT [facility] Calculi Composition See Note 04/15/2025 9:29 AM EDT [facility] Calculus Structure of left ureter / Unknown 04/11/2025 11:27 AM EDT 04/11/2025 1:03 PM EDT Comment:Pre-op diagnosis: Kidney stone [N20.0] Malaika [facility] - 04/15/2025 9:29 AM EDT Specimen consists of numerous brown calculi fragments. The total weight is 25 mg. Calculi composed primarily of: 30% calcium oxalate dihydrate, 20% magnesium ammonium phosphate (struvite), and 50% calcium phosphate (hydroxy- and carbonate- apatite). INTERPRETIVE INFORMATION: Calculi (Stone) analysis Calculi are the products of physiological processes that yield crystalline compounds in a matrix of biological compounds and blood. Matrix components are not reported. The clinically significant crystalline components identified in calculi specimens are reported. Gross description may not be consistent with composition determined by FTIR analysis. Performed By: [facility] [address] [place] [address] Plush Cutter: Douglas Rubin MD, PhD CLIA Number: [id number] us Yahaira Leslie MD LAB REF LAB BLOOD AND FLUID ORD Final Result [facility] [address] [place] [address] documented in this encounter Visit Diagnoses Diagnosis Kidney stone- Primary Calculus of kidney documented in this encounter Admitting Diagnoses Diagnosis Kidney stone Calculus of kidney documented in this encounter Administered Medications Inactive Administered Medications - up to 3 most recent administrations Medication Order MAR Action Action Date Dose Rate Site fentaNYL (Sublimaze) injection 25 mcg 25 mcg, Intravenous, Every 5 min PRN, 4 doses, Starting on Fri04/11/25 at 1226, Until Fri04/11/25 at 1656, Routine, Recovery (Phase I only), pain score of 3-5 out of 10 Given 04/11/2025 1:09 PM EDT 25 mcg Given 04/11/2025 12:47 PM EDT 25 mcg heparin (porcine) injection 5,000 Units 5,000 Units, Subcutaneous, Once, 1 dose, On Fri04/11/25 at 0900, Routine, Holding - Preprocedure Given 04/11/2025 8:50 AM EDT 5,000 Units Right Upper Arm (Back) HYDROcodone-acetaminophe n (Sunfield) 5-325 MG per tablet 5 mg of hydrocodone 5 mg of hydrocodone, Oral, Once as needed, 1 dose, Starting on Fri04/11/25 at 1226, Until Fri04/11/25 at 1244, Routine, Recovery (Phase I only), pain score of 3-5 out of 10 Given 04/11/2025 12:44 PM EDT 5 mg of hydrocodone HYDROmorphone (Dilaudid) injection 0.25 mg 0.25 mg, Intravenous, Every 10 min PRN, 4 doses, Starting on Fri04/11/25 at 1226, Until Fri04/11/25 at 1656, Routine, Recovery (Phase I only), pain score of 6-10 out of 10 Given 04/11/2025 12:58 PM EDT 0.25 mg lactated Ringer's infusion 20 mL/hr, Intravenous, Continuous, Starting on Fri04/11/25 at 0915, Until Fri04/11/25 at 1656, Routine New Bag 04/11/2025 12:00 PM EDT Continued by Anesthesia 04/11/2025 10:46 AM EDT 20 mL/hr New Bag 04/11/2025 8:29 AM EDT 20 mL/hr 20 mL/hr ondansetron (Zofran) injection 4 mg 4 mg, Intravenous, Once as needed, 1 dose, Starting on Fri04/11/25 at 1226, Until Fri04/11/25 at 1307, Routine, Recovery (Phase I only), nausea, vomiting Given 04/11/2025 1:07 PM EDT 4 mg Povidone-Iodine 5 % swab solution 1 Application Nasal, Once, 1 dose, On Fri04/11/25 at 0900, Routine Given 04/11/2025 8:27 AM EDT 1 Application sodium chloride 0.9 % flush 10 mL 10 mL, Intravenous, Every 12 hours, First dose on Fri04/11/25 at 0900, Until Discontinued, Routine, Holding - Preprocedure sodium chloride 0.9 % flush 10 mL 10 mL, Intravenous, As needed, Starting on Fri04/11/25 at 0804, Until Fri04/11/25 at 1656, Routine, Holding - Preprocedure, line care vancomycin in dextrose (Vancocin) IVPB 1,000 mg 1,000 mg (rounded from 918 mg = 15 mg/kg 61.2 kg Order-specific weight), Intravenous, Once, 1 dose, On Fri04/11/25 at 0900, at 200 mL/hr, STAT New Bag 04/11/2025 8:50 AM EDT 1,000 mg 200 mL/hr documented in this encounter Active and Recently Administered Medications Times are shown in EDT. Scheduled Medication Order 04/09/2025 04/10/2025 04/11/2025 heparin (porcine) injection 5,000 Units (COMPLETED) 5,000 Units, Subcutaneous, Once, 1 dose, On Fri04/11/25 at 0900, Routine, Holding - Preprocedure 0850 (Given - Provid er: Darleen Crenshaw RN) Povidone-Iodine 5 % swab solution 1 Application (COMPLETED) Nasal, Once, 1 dose, On Fri04/11/25 at 0900, Routine 0827 (Given - Provid er: Darleen Crenshaw RN) sodium chloride 0.9 % flush 10 mL(Linked Group 1) 10 mL, Intravenous, Every 12 hours, First dose on Fri04/11/25 at 0900, Until Discontinued, Routine, Holding - Preprocedure 0900 (Canceled Entry - Provider: Automatic Discharge Provider - Comment: Automatically canceled at discontinue of medication order) vancomycin in dextrose (Vancocin) IVPB 1,000 mg (COMPLETED) 1,000 mg (rounded from 918 mg = 15 mg/kg 61.2 kg Order-specific weight), Intravenous, Once, 1 dose, On Fri04/11/25 at 0900, at 200 mL/hr, STAT 0850 (New Bag - Prov ider: Darleen Crenshaw RN) Continuous Medication Order 04/09/2025 04/10/2025 04/11/2025 lactated Ringer's infusion 20 mL/hr, Intravenous, Continuous, Starting on Fri04/11/25 at 0915, Until Fri04/11/25 at 1656, Routine 0829 (New Bag - Prov ider: Darleen Crenshaw RN)1046 (Continued by Anesthesia - Provider: Wade Art MD)1159 (Paused - Provider: Wade Art MD - Comment: Switch to gravity)1200 (New Bag - Provider: Wade Art MD)1234 (Anesthesia Volume Adjustment - Provider: Wade Art MD) PRN Medication Order 04/09/2025 04/10/2025 04/11/2025 fentaNYL (Sublimaze) injection 25 mcg 25 mcg, Intravenous, Every 5 min PRN, 4 doses, Starting on Fri04/11/25 at 1226, Until Fri04/11/25 at 1656, Routine, Recovery (Phase I only), pain score of 3-5 out of 10 1247 (Given - Provid er: Odalys Pyle RN)1309 (Given - Provider: Odalys Pyle RN) HYDROcodone-acetaminophen (Sunfield) 5-325 MG per tablet 5 mg of hydrocodone (COMPLETED)(Linked Group 2) 5 mg of hydrocodone, Oral, Once as needed, 1 dose, Starting on Fri04/11/25 at 1226, Until Fri04/11/25 at 1244, Routine, Recovery (Phase I only), pain score of 3-5 out of 10 1244 (Given - Provid er: Odalys Pyle RN) HYDROmorphone (Dilaudid) injection 0.25 mg 0.25 mg, Intravenous, Every 10 min PRN, 4 doses, Starting on Fri04/11/25 at 1226, Until Fri04/11/25 at 1656, Routine, Recovery (Phase I only), pain score of 6-10 out of 10 1258 (Given - Provid er: Odalys Pyle RN) ondansetron (Zofran) injection 4 mg (COMPLETED) 4 mg, Intravenous, Once as needed, 1 dose, Starting on Fri04/11/25 at 1226, Until Fri04/11/25 at 1307, Routine, Recovery (Phase I only), nausea, vomiting 1307 (Given - Provid er: Odalys Pyle RN) sodium chloride 0.9 % flush 10 mL(Linked Group 1) 10 mL, Intravenous, As needed, Starting on Fri04/11/25 at 0804, Until Fri04/11/25 at 1656, Routine, Holding - Preprocedure, line care Linked Groups Order Group 1: Insert peripheral IV (CANCELED) Once, On Fri04/11/25 at 0805, For 1 occurrence, Holding - Preprocedure And Saline lock IV (CANCELED) Once, On Fri04/11/25 at 0805, For 1 occurrence, Holding - Preprocedure And sodium chloride 0.9 % flush 10 mLJump to med 10 mL, Intravenous, Every 12 hours, First dose on Fri04/11/25 at 0900, Until Discontinued, Routine, Holding - Preprocedure And sodium chloride 0.9 % flush 10 mLJump to med 10 mL, Intravenous, As needed, Starting on Fri04/11/25 at 0804, Until Fri04/11/25 at 1656, Routine, Holding - Preprocedure, line care Group 2: HYDROcodone-acetaminophen (Sunfield) 5-325 MG per tablet 5 mg of hydrocodone (COMPLETED)Jump to med 5 mg of hydrocodone, Oral, Once as needed, 1 dose, Starting on Fri04/11/25 at 1226, Until Fri04/11/25 at 1244, Routine, Recovery (Phase I only), pain score of 3-5 out of 10 Or HYDROcodone-acetaminophen (Sunfield) 5-325 MG per tablet 10 mg of hydrocodone (COMPLETED) 10 mg of hydrocodone, Oral, Once as needed, 1 dose, Starting on Fri04/11/25 at 1226, Until Fri04/11/25 at 1244, Routine, Recovery (Phase I only), pain score of 6-8 out of 10 documented in this encounter Additional Health Concerns Active Problems Noted Date Diagnosed Date Autogenerated Problem 04/04/2025 Infection Onset Date Last Indicated Resolved Time 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 Assessment Noted Time PHQ-9 Depression Total Score: 13 024 1:09 PM EDT A fall risk assessment has been complete d for the patient 04/01/2025 2:11 PM EDT A Body Mass Index follow-up plan has been documented for the patient 04/01/2025 4:11 PM EDT documented as of this encounter Care Teams Software Project Engineer Relationship Specialty Start Date End Date Luis Henderson MD [address] [place] [id number] PCP - General Internal Medicine 01/10/22 Luis Henderson MD [address] [place] [id number] 09/04/21 Kasi Jacobs MD [address] [place] [address] Consulting Physician Neurology 05/17/21 Maria Guadalupe Madrigal APRN [address] [place] [address] Nurse Practitioner Urology 12/03/23 documented as of this encounter
--- OUTSIDE RECORDS SUMMARY | 2025-04-11 10:10 | XMS_ITS | Encounter Summary ---
Author Organization [facility] Address [address] [place] [address] Care Team Providers Care Livestock Rancher Name Role Phone Luis Henderson MD Unavailable [phone] Kasi Jacobs MD Unavailable [phone] Luis Henderson MD Primary Care Provider [phone] Maria Guadalupe Madrigal APRN Unavailable [phone] Reason for Visit * Auth/Cert (Routine) Specialty Diagnoses / Procedures Referred By Contac t Referred To Contact Diagnoses Kidney stone Kidney stone [N20.0] Procedures MO CYSTO/URETERO W/LITHOTRIPSY &INDWELL STENT INSRT CHG X-RAY RETROGRADE PYELOGRAM URETEROSCOPY Yahaira Leslie MD [address] [facility] [address] [place] [address] Phone: tel: fax: [facility] Operating Room [address] [place] [address] Phone: tel: Referral ID Status Reason Start Date Expiration Date Visits Re quested Visits Authorized [id number] 1 1 Encounter Details Date Type Department Care Team (Late st Contact Info) Description 04/11/2025 10:10 AM EDT - 04/11/2025 11:40 AM EDT Surgery [facility] Operating Room [address] [place] [address] Yahaira Leslie MD [address] [place] [address] URETEROSCOPY, WITH LASER LITHOTRIPSY Surgery Details Date/Time Status Location OR Service Patient Class Case Class Case Type Trauma Case? 04/11/2025 10:10 AM Posted [facility] OR [facility] Urology [facility] Outpatient Surgery E-Electi ve Panel 1 Procedure LRB Anes Op Region Wound Class Comments URETEROSCOPY, WITH LASER LITHOTRIPSY Left General Ure ter N/A ADDED ON URETERAL STENT PLACEMENT Left Ureter N/A Surgeon Surgeon Role Service Panel Yahaira Leslie MD Primary Urology 1 Barney Ramirez MD Resident - Assisting 1 Tereza Llamas DO Fellow Urology 1 documented in this encounter Social History [...] time in the past [address] [facility], were you homeless or living in a custodial (including now)? 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 FOREMAN) to steady your nerves or to get [...] Sign Reading Time Taken Comments Blood Pressure 112/61 04/11/2025 8:17 AM EDT Pulse 90 04/11/2025 8:17 AM EDT Temperature 36.7 C (98.1 F) 04/11/2025 8:17 AM EDT Respiratory Rate 16 04/11/2025 8:17 AM EDT Oxygen Saturation 95% 04/11/2025 8:17 AM EDT Inhaled Oxygen Concentration - - [...] confirm your location ahead of your appointment) [facility] Urology Department Clinic at [facility] [address] [facility], [address]nd Floor, [facility], [address] [place] [address] Clinic After Hours [facility] Office Building Urology Clinic [address] [facility] [place] [address] Clinic After Hours documented in this encounter [...] min. Calcium Antacid 500 MG chewable tablet Calcium Carbonate-Vitamin D (calcium-vitamin D) 500-200 MG-UNIT [...] to 10 days. 80 tablet 5 04/21/20 25 documented as of this encounter Miscellaneous [...] 2:26 PM EDT Signature only. * Ashley Stacey - Odalys Pyle RN - 04/11/2025 1:55 [...] Room or call the Emergency Department at [phone]. Smoking and its health risks ? Smoking [...] help quitting smoking, call the [employer] [place] Quitline toll free at or ask your doctor for help. Weight Management ? Weighing too much is not good for your health. Being overweight increases your risk of health conditions such as heart problems, high blood pressure, type 2 diabetes, and certain types of cancer. Being overweight can also increase your risk for osteoarthritis (ep-[id number]-SDPM-[id number]) (joint disease), sleep apnea (abnormal breathing at [...] risk of health problems. Ask your dietitian, control analyst or doctor about a weight loss goal that is right for you. 08/19 * Op Note - Yahaira Leslie MD - 04/11/2025 11:08 AM EDT Date of Surgery: 04/11/25 Procedure Performed: Cystoscopy with left ureteroscopy Laser lithotripsy Basket extraction of stones left ureteral stent placement Preoperative Diagnosis: left ureteral stones, renal stones Postoperative Diagnosis: Same Surgeon: Yahaira Leslie MD Gas Regulator Repairer Helper Surgeon: DO Barney Navarro MD Intraoperative Findings: [...] RN - 04/11/2025 9:59 AM EDT Called [facility] for medication history. Spoke to Breann Skelton [...] you for this consult, Thank you, Angle Quiles Pharm.D., BCCCP, BCPS Surgery Pharmacist, [facility] 8:12 AM * H&P - Barney Ramirez [...] visit. Results Review {Vanishing Link Review Results :[id number] I have reviewed the latest lab and [...] John RN - 04/04/2025 12:18 PM EDT ANGLE Etses is a 64 y.o. female who presents [...] bladder, unspecified Other muscle spasm Paraplegia, unspecified ([facility]) Personal history of (healed) traumatic fracture History of fracture of ankle Personal history of other diseases of urinary system History of gross hematuria Personal history of urinary (tract) infections Polyneuropathy, unspecified Postmenopausal atrophic vaginitis Recurrent UTI 03/19/2022 Rocephin 7/8 Seizure ([facility]) Suprapubic catheter ([facility]) Unspecified convulsions ([facility]) Vitamin B12 deficiency anemia, unspecified Vitamin [...] Date ANKLE SURGERY N/A Ankle Surgery from [facility] APPENDECTOMY N/A Appendectomy from [facility] BACK SURGERY IR PAIN PUMP IMPLANT/ REPLACEMENT IR PAIN PUMP REMOVAL SACRAL NERVE STIMULATOR PLACEMENT N/A Install Sacral Nerve Neurostimulator By Incision from [facility] SUBMANDIBULAR GLAND EXCISION W/ PAROTID DUCT LIGATION N/A Thyroid Surgery Sub-Total Thyroidectomy from [facility] SUPRAPUBIC CATHETER TUBAL LIGATION N/A Tubal Ligation from [facility] [5] Allergies Allergen Reactions Methenamine Itching, Rash [...] your arrival time Your surgery is at [facility] located at [address] [place] [address] Please park in the parking garage and [...] card, photo ID, along with power of tax associate attorney, guardianship or advanced directives if applicable [...] Upcoming Encounters Date Type Department Care Team ([facility] st Contact Info) Description 07/14/2025 8:45 AM EST Appointment [facility] Ultrasound [address] [place] [phone] 07/14/2025 10:50 AM EST Office Visit Medical Office Building Urology [address] [facility], [address] [place] [phone] Zoie Restrepo, MACHINIST SUPERVISOR [address] [phone] 10/03/2025 11:40 AM EST Office [facility] [address] [place] [phone] Maria Guadalupe Madrigal, MACHINIST SUPERVISOR [address] [facility] [place] [phone] documented as of this encounter Goals Goal [...] Culture Light Growth 04/16/2025 3:48 PM EDT [facility] Culture 1+ Enterococcus faecalis(A) SAMARA 04/16/2025 3:48 PM EDT [facility] Comment: This isolate has been identified using the FDA Approved [employer] [place] System Edited result: Previously reported as Gram positive cocci on 04/12/2025 at 1125 EDT. Culture 1+ Enterococcus raffinosus(A) SAMARA 04/16/2025 3:48 PM EDT [facility] Comment: This isolate has been identified using the FDA Approved [employer] [place] System The organism value for this result has been updated. These results have been appended to the previously preliminary verified report. Calculus Structure of left ureter / Unknown 04/11/2025 11:29 AM EDT 04/11/2025 1:03 PM EDT Comment:Pre-op diagnosis: Kidney stone [N20.0] Narrative Organism Antibiotic Method Susceptibility Enterococcus faecalis Ampicillin SAMAAR 1 ug/ml: Susceptible Enterococcus faecalis Daptomycin SAMARA [...] Enterococcus raffinosus Vancomycin ETEST 2.0 ug/ml: Susceptible us Yahaira Leslie MD LAB MICROBIOLOGY - GENERAL O RDERABLES Final Result [facility] [address] [place] [address] * Calculi (Kidney Stone) Analysis (04/11/2025 11:27 AM EDT) Calculi Mass 25 mg 04/15/2025 9:29 AM EDT [facility] Calculi Description See Note 04/15/2025 9:29 AM EDT [facility] Calculi Composition See Note 04/15/2025 9:29 AM EDT [facility] ([place]) Calculus Structure of left ureter / Unknown 04/11/2025 11:27 AM EDT 04/11/2025 1:03 PM EDT Comment:Pre-op diagnosis: Kidney stone [N20.0] Narrative [facility]) - 04/15/2025 9:29 AM EDT Specimen consists [...] composition determined by FTIR analysis. Performed By: [facility] [address] [place] [address] Wire Chief: Douglas Rubin MD, PhD CLIA Number: [id number] us Yahaira Leslie MD LAB REF LAB BLOOD AND FLUID ORD Final Result [facility]) [address] [place] [address] documented in this encounter Visit Diagnoses Diagnosis Kidney stone- Primary Calculus of kidney Kidney stone Calculus of [...] Units Right Upper Arm (Back) HYDROcodone-acetaminophe n ([place]) 5-325 MG per tablet 5 mg of [...] (Given - Provider: Odalys Pyle RN) HYDROcodone-acetaminophen ([place]) 5-325 MG per tablet 5 mg of [...] - Preprocedure, line care Group 2: HYDROcodone-acetaminophen ([place]) 5-325 MG per tablet 5 mg of hydrocodone (COMPLETED)Jump to med 5 mg of hydrocodone, Oral, Once as needed, 1 dose, Starting on Fri04/11/25 at 1226, Until Fri04/11/25 at 1244, Routine, Recovery (Phase I only), pain score of 3-5 out of 10 Or HYDROcodone-acetaminophen ([place]) 5-325 MG per tablet 10 mg of [...] documented as of this encounter Care Teams Livestock Rancher Relationship Specialty Start Date End Date Luis Henderson MD [address] [place], [place] [phone] PCP - General Internal Medicine 01/10/22 Luis Henderson MD [address] [place], [place] [id number] 09/04/21 Kasi Jacobs MD [address] [place] [address] Consulting Physician Neurology 05/17/21 Maria Guadalupe Madrigal APRN [address] [place] [phone] Nurse Practitioner Urology 12/03/23 documented as of this encounter
--- OUTSIDE RECORDS SUMMARY | 2025-04-11 10:46 | XMS_ITS | Encounter Summary ---
Author Organization [facility] Address [address] [place] [address] Care Team Providers Care Foundation Coordinator Name Role Phone Luis Henderson MD Unavailable [phone] Kasi Jacobs MD Unavailable [phone] Luis Henderson MD Primary Care Provider [phone] Maria Guadalupe Madrigal APRN Unavailable [phone] Reason for Visit * Auth/Cert (Routine) Specialty Diagnoses / Procedures Referred By Contac t Referred To Contact Diagnoses Kidney stone Kidney stone [N20.0] Procedures CO CYSTO/URETERO W/LITHOTRIPSY &INDWELL STENT INSRT CHG X-RAY RETROGRADE PYELOGRAM URETEROSCOPY Yahaira Leslie MD [address] [place] [address] Phone: tel: fax: [facility] Operating Room [address] [place] [address] Phone: tel: Referral ID Status Reason Start Date Expiration Date Visits Re quested Visits Authorized [id number] 1 1 Encounter Details Date Type Department Care Team (Late st Contact Info) Description 04/11/2025 10:46 AM EDT Anesthesia Event [facility] Operating [facility] [address] [place] [address] Wade Art MD [address] [place] [id number] Anesthesia Record Procedure Summary Procedure Name Responsible Anesthesiologist Anesthesia Start Time Anesthesia Stop Time URETEROSCOPY, WITH LASER LITHOTRIPSY (Left: Ureter) Wade Art MD 04/11/25 1046 04/11/25 1235 Events Date Time Event Comment 04/11/2025 0843 1046 An Start The patient was reevaluated immediately before sedation and remains eligible for anesthesia plan. 1046 In Room 1047 An Start Data 1054 An Induction The patient was reevaluated immediately before moderate or deep sedation use and before anesthesia induction. 1057 An Intubation 1100 Anesthesia Ready 1108 Proc Start 1223 An Extubation 1225 Proc Fin 1228 an stop data 1229 Out of Room 1235 An Stop 1235 Handoff to Receiving I compl eted my handoff to the receiving clinician during which we: 1. Identified the patient 2. Identified the responsible provider 3. Reviewed the pertinent medical history 4. Discussed the surgical course 5. Reviewed intra-op anesthesia management and issues during anesthesia 6. Set expectations for post-procedure period 7. Allowed opportunity for questions and acknowledgement of understanding. Meds Name Total fentaNYL (Sublimaze) injection 50 mcg/mL 100 mcg lidocaine PF (Xylocaine-MPF) 2% 40 mg propofol (Diprivan) injection 10 mg/mL 1 00 mg dexamethasone (Decadron) injection 4 mg/ mL 4 mg phenylephrine (Zachariah-Synephrine) prefilled syringe 1 mg/10 mL 200 mcg ondansetron (Zofran) injection 2 mg/mL 4 mg cefepime (Maxipime) vial 2 g 2 g lactated Ringer's infusion 750 mL * Agents No agents on file. * Blood No blood administrations on file. Lines, Drains, and Airways Type Details Placement Removal Suprapubic Catheter 03/28/25; 318; Yes; Single lumen; 16 Fr.; Catheter securement device 03/28/25318 by Tito Richardson RN Ureteral Drain/Stent 03/28/25; 1140; Yes ; Left ureter; 4.8 Fr. 03/28/25 1140 by Ingris Zimmerman 04/11/25 1128 by Jazzmine Naqvi Peripheral IV Placement Date: 04/11/25; Placement Time: 818; Catheter Size: 20 G; Orientation: Posterior, Right; Location: Hand; Site Prep: Chlorhexidine ; Local Anesth: None; Technique: Anatomical landmarks; Inserted by: Den GASPAR; Insertion Attempts: 1; Patient Tolerance: Tolerated well; Removal Date: 04/11/25; Removal Time: 1431; Removal Reason: Discharge 04/11/25 08 by Darleen Crenshaw RN 04/11/25 143 by Odalys Pyle RN Supraglottic Airway Placement Date: 04/11/25; Placement Time: 1057 (created via procedure documentation); Mask Ventilation: 1; Removal Date: 04/11/25; Removal Time: 1223 04/11/25 1057 by Wade Art MD 04/11/25 1223 by Wade Art MD Ureteral Drain/Stent 04/11/25; 1215; Yes ; Left ureter; 6 Fr. (x24cm); Yes 04/11/25 1215 by Jazzmine Naqvi 04/11/25 1511 by Odalys Pyle RN documented in this encounter Social History Tobacco [...] any time in the past 12 m [facility], were you homeless or living in a alf (including now)? 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 Anesthesia [...] Procedure Notes - Wade Art MD - 04/11/2025 11:05 AM EDT Associated Order(s): Airway Airway Date/Time: 04/11/2025 10:57 AM Reason: elective Airway not difficult General Information and Staff Patient location during procedure: OR Anesthesiologist: Wade Art MD Performed: Anesthesiologist Patient Condition Indications for airway management: anesthesia Patient position: sniffing MILS maintained throughout Final Airway Details Final airway type: LMALMA Size: 4 LMA Type: normal * Anesthesia Preprocedure Evaluation - Michael Sosa MD - 04/11/2025 8:24 AM EDT Anesthesiologist: Wade Art MD Patient: Meme Estes 64 yof with past medical history of cerebral palsy (wheelchair at baseline), hx of seizures on keppra (most recent > two years ago) neurogenic bladder s/p suprapubic tube in 04/2024, recurrent UTI w/ history of left ureteral stones, hydronephrosis, and left flank pain. Grade 2a view 03/30 for thoracic spine surgery. Most recent cystoscopy done with LMA. HPI Meme Estes is a 64 y.o. female with body mass index is 23.41 kg/m??. who presents with Kidney stone, now for URETEROSCOPY (Left) Procedure Information Date/Time: 04/11/25 1010 Procedure: URETEROSCOPY (Left) Location: [facility] Surgeons: Yahaira Leslie MD Relevant Problems GI (+) GERD (gastroesophageal reflux disease) /Renal (+) Hydronephrosis concurrent with and due to calculi of kidney and ureter (+) Kidney stone (+) Neurogenic bladder (+) Recurrent UTI (+) Suprapubic catheter (CMS/HCC) Other (+) Osteomyelitis of vertebra of thoracic region (CMS/HCC) ALLERGIES Allergies[1] NPO STATUS Date of Last Liquid: 04/11/25 Time of Last Liquid: 30 Date of Last Solid: 04/10/25 Time of Last Solid: 1700 Last Intake Type: Clear fluids Time of Last Void: 815 (Suprapubic catheter) Past Medical History[2] AIRWAY HISTORY Airway Detailed Review Displaying the 20 most recent records Date Difficult Airway Blade Size ETT Size C-L Class Final Type Intubation Method 03/28/25 No LMA 04/21/24 No LMA 03/18/23 No 3 7.0 grade IIa - partial view of glottis endotracheal airway direct laryngoscopy MEDICATIONS Outpatient Current Outpatient Medications Medication Instructions acetaminophen (TYLENOL) 1,000 mg, Every 8 hours PRN alendronate (FOSAMAX) 70 mg, Every 7 days Calcium Antacid 500 MG chewable tablet Calcium Carbonate-Vitamin D (calcium-vitamin D) 500-200 MG-UNIT tablet 1 tablet, 2 times daily CEFADROXIL PO Daily Cranberry 200 mg, 2 times daily dantrolene (DANTRIUM) 50 mg, 3 times daily furosemide (LASIX) 20 mg, Daily gabapentin (NEURONTIN) 400 mg, 3 times daily hydrOXYzine pamoate (Vistaril) 25 MG capsule ibuprofen 600 mg, Every 6 hours PRN lactulose (CHRONULAC) 20 g, Daily PRN levETIRAcetam (KEPPRA) 500 mg, 2 times daily levothyroxine (SYNTHROID, LEVOXYL) 200 mcg, Daily before breakfast Lidocaine 4 % patch 1 patch, Daily linaCLOtide (LINZESS) 145 mcg, Daily loratadine (Claritin) 10 MG tablet melatonin 6 mg, Nightly methylPREDNISolone (Medrol Dospak) 4 MG tablets Take by mouth. Follow schedule on package instructions midodrine (PROAMATINE) 5 mg, 2 times daily Milk of Magnesia 1200 MG/15ML suspension mirabegron ER (MYRBETRIQ) 50 mg, Daily Misc Natural Products (Iberogast) capsule 1 capsule, 2 times daily multivitamin (Theragran-M) tablet 1 tablet, Daily naloxone (NARCAN) 4 mg, Nasal, As needed ondansetron ODT (ZOFRAN-ODT) 4 mg, Oral, Every 6 hours PRN sertraline (ZOLOFT) 200 mg, Daily tamsulosin (FLOMAX) 0.4 mg, Oral, Daily with dinner tiZANidine (ZANAFLEX) 4 mg, 2 times daily traMADol (Ultram) 50 MG tablet traZODone (DESYREL) 50 mg, Nightly Scheduled Current Scheduled Medications[3] PRNs Current PRN Medications[4] SURGICAL HX: Surgical History[5] SOCIAL HX: Social History[6] OBJECTIVE DATA LABS Lab Results Component Value Date WBC 5.30 03/30/2025 HGB 11.0 (L) 03/30/2025 HCT 35.2 03/30/2025 MCV 82 03/30/2025 PLT 148 (L) 03/30/2025 Lab Results Component Value Date CALCIUM 8.3 (L) 03/30/2025 BUN 6 (L) 03/30/2025 CREATININE 0.27 (L) 03/30/2025 BCR 22 03/30/2025 NA 142 03/30/2025 K 3.1 (L) 03/30/2025 CL 110 (H) 03/30/2025 CO2 22 03/30/2025 CA 8.2 (L) 10/13/2020 Type and Screen No results found for: ABO No results found for: HGBA1C Lab Results Component Value Date GLUCOSE 101 (H) 03/30/2025 ABG Lab Results Component Value Date HPL3NFW 25 03/18/2023 LACTATE 0.7 03/18/2023 Lab Results Component Value Date PH 7.36 03/18/2023 PCO2 45 03/18/2023 PO2 129 03/18/2023 M2LPRJLH 99.1 (H) 03/18/2023 BASEEXC -0.2 03/18/2023 HCTSYR 24.7 (L) 03/18/2023 KSYR 4.0 03/18/2023 CLSYR 106 03/18/2023 GLUSYR 94 03/18/2023 CAION 4.3 (L) 03/18/2023 LACTATE 0.7 03/18/2023 ECHO No echocardiogram results found for the past 12 months PFTs No results found for: CEZ0HZP , WYJ6JVQC , WRZ2KFW , FVCPRED BP Readings from Last 5 Encounters: 04/01/25 112/68 03/30/25 134/83 12/22/24 108/66 10/13/24 106/74 01/31/25 115/72 Physical Exam Airway Mallampati: II Mouth opening: normal Cardiovascular Rhythm: regular Rate: normal Dental - normal exam Pulmonary Breath sounds clear to auscultation Neurological Oriented: normal to time, normal to place and normal to person and oriented to person, place and time Skin - normal exam Musculoskeletal - normal exam Extremities -normal exam Anesthesia Plan ASA 3 Plan was reviewed with: resident and attending Anesthesia technique(s) discussed with the patient/family: general Anesthesia plan agreed upon was: general Anesthetic plan and risks discussed with patient. Use of blood products discussed with patient who. ROS Anesthesia: history of previous anesthesia. Does not have a history of anesthetic complications. Cardiovascular: Negative cardio ROS. Respiratory: Negative respiratory ROS. HEENT: Negative HEENT ROS. Neurological: cerebral palsy. seizures: Musculoskeletal: Musc/Skel/Integ additional comments: Mobility limited to wheelchair Gastrointestinal: Does not have GERD. GI/ additional comments: Suprapubic catheter Genitourinary: Does not have chronic renal disease.neurogenic bladder, recurrent UTIs and renal calculi. Hematological/Lymphatic: negative hematology/oncology ROS. Endocrine/Metabolic: thyroid disorder. Endo/Met additional comments: Hx of partial thyroidectomy [1] Allergies Allergen Reactions Methenamine Itching, Rash [...] vaginitis Recurrent UTI 03/19/2022 Rocephin 7 Seizure ([facility]) Suprapubic catheter ([facility]) Unspecified convulsions ([facility]) Vitamin B12 deficiency anemia, unspecified Vitamin D deficiency, unspecified [3] cefepime, 2 g, Intravenous, Once heparin (porcine), 5,000 Units, Subcutaneous, Once Povidone-Iodine, 1 Application, Nasal, Once Insert peripheral IV, , , Once AND Saline lock IV, , , Once AND sodium chloride, 10 mL, Intravenous, q12h AND sodium chloride, 10 mL, Intravenous, PRN vancomycin, 15 mg/kg (Order-Specific), Intravenous, Once [4] PRN medications: Insert peripheral IV AND Saline lock IV AND sodium chloride AND sodium chloride [5] Past Surgical History: Procedure Laterality Date ANKLE SURGERY N/A Ankle Surgery from [facility] APPENDECTOMY N/A Appendectomy from [facility] BACK SURGERY IR PAIN PUMP IMPLANT/ REPLACEMENT IR PAIN PUMP REMOVAL SACRAL NERVE STIMULATOR PLACEMENT N/A Install Sacral Nerve Neurostimulator By Incision from [facility] SUBMANDIBULAR GLAND EXCISION W/ PAROTID DUCT LIGATION N/A Thyroid Surgery Sub-Total Thyroidectomy from [facility] SUPRAPUBIC CATHETER TUBAL LIGATION N/A Tubal Ligation from [facility] [6] Social History Tobacco Use Smoking status: Never Smokeless tobacco: Never Vaping Use Vaping status: Never Used Substance Use Topics Alcohol use: Never Comment: Alcoholic Drinks/day: Never Drank Alcohol Drug use: Never Cosigned by Wade Art MD at 04/11/2025 11:40 AM EDT Associated attestation - Wade Art MD - 04/11/2025 11:40 AM EDT I agree with the findings and care plan documented in the preprocedure evaluation note. documented in this encounter Plan of Treatment Upcoming Encounters Date Type Department Care Team (Late st Contact Info) Description 07/14/2025 8:45 AM EST Appointment [facility] [address] [place] [address] 07/14/2025 10:50 AM EST Office Visit Medical Office Building Urology [address], [address] [place] [address] Zoie Restrepo, [employer] INSTALLATION FOREMAN [address] [place] [address] 10/03/2025 11:40 AM EST Office Visit [facility] [address] [place] [address] Maria Guadalupe Madrigal, SOLAR INSTALLATION FOREMAN [address] [place] [address] documented as of this encounter Goals Goal Patient Goal Type Associated Problems Recent Progress Patient-Stated? Author Autogenerat ed Goal Care Plan Autogenerated Problem No Maria Guadalupe Tavarez documented as of this encounter Procedures Procedure Name Priority Date/Time Associated Diagnosis Comments PB ANESTHESIA PLACEHOLDER Routine 04/11/2025 10:57 AM EDT CO AN ELECTIVE SUPRAGLOTTIC AIRWAY Routine 04/11/2025 10:57 AM EDT documented in this encounter Results * CO AN ELECTIVE SUPRAGLOTTIC AIRWAY, PB ANESTHESIA PLACEHOLDER (04/11/2025 10:57 AM EDT) Narrative Wade Art MD - 04/11/2025 10:57 AM EDT Wade Art MD 04/11/2025 11:06 AM Airway Date/Time: 04/11/2025 10:57 AM Reason: elective Airway not difficult General [...] MAR Action Action Date Dose Rate Site cefepime (Maxipime) injection Intravenous, As needed, Starting on Fri04/11/25 at 1110, Until Fri04/11/25 at 1235, Routine, Anesthesia Intraprocedure Given 04/11/2025 11:10 AM EDT 2 g dexamethasone (Decadron) injection Intravenous, As needed, Starting on Fri04/11/25 at 1120, Until Fri04/11/25 at 1235, Routine, Anesthesia Intraprocedure Given 04/11/2025 11:18 AM EDT 4 mg fentaNYL (Sublimaze) injection Intravenous, As needed, Starting on Fri04/11/25 at 1054, Until Fri04/11/25 at 1235, Routine, Anesthesia Intraprocedure Given 04/11/2025 12:15 PM EDT 25 mcg Given 04/11/2025 11:41 AM EDT 25 mcg Given 04/11/2025 11:30 AM EDT 25 mcg lactated Ringer's infusion 20 mL/hr, Intravenous, Continuous, Starting on Fri04/11/25 at 0915, Until Fri04/11/25 at 1656, Routine New Bag 04/11/2025 12:00 PM EDT Continued by Anesthesia 04/11/2025 10:46 AM EDT 20 mL/hr New Bag 04/11/2025 8:29 AM EDT 20 mL/hr 20 mL/hr lidocaine PF (Xylocaine) 2 % injection Intravenous, As needed, Starting on Fri04/11/25 at 1054, Until Fri04/11/25 at 1235, Routine, Anesthesia Intraprocedure Given 04/11/2025 10:54 AM EDT 40 mg ondansetron (Zofran) injection Intravenous, As needed, Starting on Fri04/11/25 at 1220, Until Fri04/11/25 at 1235, Routine, Anesthesia Intraprocedure Given 04/11/2025 12:20 PM EDT 4 mg phenylephrine in NS (Zachariah-Synephrine) 100 mcg/mL prefilled syringe Intravenous, As needed, Starting on Fri04/11/25 at 1115, Until Fri04/11/25 at 1235, Routine, Anesthesia Intraprocedure Given 04/11/2025 11:30 AM EDT 100 mcg Given 04/11/2025 11:15 AM EDT 100 mcg propofol (Diprivan) injection Intravenous, As needed, Starting on Fri04/11/25 at 1054, Until Fri04/11/25 at 1235, Routine, Anesthesia Intraprocedure Given 04/11/2025 10:57 AM EDT 20 mg Given 04/11/2025 10:54 AM EDT 80 mg documented in this encounter Additional Health [...] documented as of this encounter Care Teams Foundation Coordinator Relationship Specialty Start Date End Date Luis Henderson MD [address] [place], [place] [address] PCP - General Internal Medicine 01/10/22 Luis Henderson MD [address] [place], [place] [address] 09/04/21 Kasi Jacobs MD [address] [place] [address] Consulting Physician Neurology 05/17/21 Maria Guadalupe Madrigal APRN [address] [place] [address] Nurse Practitioner Urology 12/03/23 documented as of this encounter
--- OUTSIDE RECORDS SUMMARY | 2025-04-20 09:30 | XMS_ITS | Encounter Summary ---
Author Organization [facility] Address [address] [place] [address] Care Team Providers Care Pawn Shop Keeper Name Role Phone Luis Henderson MD Unavailable [phone] Kasi Jacobs MD Unavailable [phone] Luis Henderson MD Primary Care Provider + [phone] Maria Guadalupe Madrigal APRN Unavailable [phone] Reason for Referral * Imaging (Routine) - Authorized Specialty Diagnoses / Procedures Referred By Contac t Referred To Contact Radiology Diagnoses Ureteral stone Procedures US Renal Yahaira Leslie MD [address] [place] [address] Phone: tel: fax: Referral ID Status Reason Start Date Expiration Date V isits Requested Visits Authorized [id number] Authorized 04/20/2025 10/20/2026 1 1 Reason for Visit * Reason Comments Cystoscope Stent Removal Encounter Details Date Type Department Care Team (Late st Contact Info) Description 04/20/2025 9:30 AM EDT Office Visit Medical Office Building Urology [address], [address] [place] [address] Yahaira Leslie MD [address] [place] [address] Ureteral stone (Primary Dx) Social [...] any time in the past 12 m [facility], were you homeless or living in a group home (including now)? 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 Not difficult at all 04/20/2025 9:16 AM EDT Ingris Reddy * [...] Procedure discussed: discussed risks, benefits and alternatives Operator/Assistant Foreman present: yes Timeout: timeout called immediately prior to procedure Prep: patient was prepped and draped in usual sterile fashion Prep type: Betadine Anesthesia: local anesthesia Procedure Details: Cystoscope type: Flexible Cystoscopy route: transurethral Cystoscopy location: [place] bladder Cystoscopy location: [place] bladder Irrigation used: saline Position: Supine Abnormal [...] Upcoming Encounters Date Type Department Care Team ([facility] st Contact Info) Description 07/14/2025 8:45 AM EST Appointment [facility] Ultrasound [address] [place] [address] 07/14/2025 10:50 AM EST Office Visit Medical Office Building Urology [address] [facility], [address] [place] [address] Zoie Restrepo PRESALES CONSULTANT [address] [phone] 10/03/2025 11:40 AM EST Office Visit [facility] Urology [address] [place] [address] Maria Guadalupe Madrigal PRESALES CONSULTANT [address] [facility] [address] [place] [address] Scheduled Orders Name Type Priority Associated Diagnoses Orde r Schedule US Renal Imaging Routine Ureteral stone Expected: 07/21/2025 (Approximate), Expires: 10/22/2026 documented as of this encounter Goals Goal Patient Goal Type Associated Problems Recent Progress Patient-Stated? Author Autogenerat ed Goal Care Plan Autogenerated Problem Maria Guadalupe [place] documented as of this encounter Procedures Procedure Name Priority Date/Time Associated Diagnosis Comments URO CYSTO SUPPLIES Routine 04/20/2025 9: 33 AM EDT Ureteral stone [place] CYSTOSCOPY,REMV CALCULUS,SIMPLE Routine 04/20/2025 9:33 AM EDT Ureteral stone documented in this encounter Results * NV CYSTOSCOPY,REMV CALCULUS,SIMPLE, URO CYSTO SUPPLIES (04/20/2025 9:33 AM EDT) Narrative Yahaira Leslie MD - 04/20/2025 9:33 AM EDT Yahaira Leslie MD 04/20/2025 9:46 AM Cysto with Stent Removal Date/Time: 04/20/2025 9:33 AM Performed by: Yahaira Leslie MD Authorized by: Yahaira Leslie MD Procedure discussed: discussed risks, benefits and alternatives Operator/Assistant Foreman present: yes Timeout: timeout called immediately prior to procedure Prep: patient was prepped and draped in usual sterile fashion Prep type: Betadine Anesthesia: local anesthesia Procedure Details: Cystoscope type: Flexible Cystoscopy route: transurethral Cystoscopy location: [place] bladder Cystoscopy location: [place] bladder Irrigation used: saline Position: Supine Abnormal [...] documented as of this encounter Care Teams Pawn Shop Keeper Relationship Specialty Start Date End Date Luis Henderson MD [address] [place] [address] PCP - General Internal Medicine 01/10/22 Luis Henderson MD [address] [place] [address] 09/04/21 Kais Jacobs MD [address] [place] [address] Consulting Physician Neurology 05/17/21 Maria Guadalupe Madrigal APRN [address] [place] [address] Nurse Practitioner Urology 12/03/23 documented as of this encounter
--- NOTE | 2025-05-05 13:48 | XR_ITS ---
FINAL REPORT CLINICAL HISTORY: right foot pain, right big toe fx FINDINGS: RIGHT FOOT Three views were obtained. Osteopenia is noted. There is a fracture of the midshaft of the first metatarsal. No other fracture is identified. 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 Diffuse soft tissue edema is noted. IMPRESSION: Nondisplaced fracture of the first metatarsal. Osteopenia. Soft tissue edema. Reviewed, Interpreted and Dictated by Awa Ferrer MD Transcribed by Deja Hodges Authenticated and [facility]
--- OUTSIDE RECORDS SUMMARY | 2025-05-05 13:52 | XMS_ITS | Encounter Summary ---
Author Organization [facility] Address [address] [place] [address] Care Team Providers Care Lecturer In Marketing Name Role Phone Luis Henderson MD Unavailable [phone] Kasi Jacobs MD Unavailable [phone] Luis Henderson MD Primary Care Provider [phone] Maria Guadalupe Madrigal APRN Unavailable [phone] Encounter Details Date Type Department Care Team (Late st Contact Info) Description 06/19/2024 Lab Requisition [facility] [address] [place] [address] Luis Henderson MD [address] [place], [place] [id number] Urinary tract infection, site not specified Social [...] drink first t alli in the 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 [place] [address] 07/14/2025 10:50 AM EST Office Visit Medical Office Building Urology [address] [facility], [address] [place] [phone] Zoie Restrepo, MRB ENGINEER [address] [facility] [address] [place] [address] 10/03/2025 11:40 AM EST Office Visit [facility] Urology [address] [place] [address] Maria Guadalupe Madrigal, MRB ENGINEER [address] [place] [address] documented as of this encounter [...] LAB HEMATOLOGY METHOD 06/19/2024 7:[address] [facility] RBC Count 4.49 3.90 - 5.20 10*6/uL LAB HEMATOLOGY METHOD 06/19/2024 7:[address] [facility] HGB 12.0 11.2 - 15.7 g/dL LAB HEMATOLOGY METHOD 06/19/2024 7:[address] [facility] HCT 38.2 34.0 - 45.0 % LAB HEMATOLOGY METHOD 06/19/2024 7:[address] [facility] Platelet Count 164 155 - 369 10*3/uL LAB HEMATOLOGY METHOD 06/19/2024 7:[address] [facility] MCV 85 79 - 98 fL LAB HEMATOLOGY METHOD 06/19/2024 7:[address] [facility] MCH 26.7 26.0 - 32.0 pg LAB HEMATOLOGY METHOD 06/19/2024 7:[address] [facility] MCHC 31.4 30.7 - 35.5 g/dL LAB HEMATOLOGY METHOD 06/19/2024 7:[address] [facility] RDW 15.7(H) 11.5 - 14.5 % LAB HEMATOLOGY METHOD 06/19/2024 7:[address] [facility] MPV 11.1 8.8 - 12.5 fL LAB HEMATOLOGY METHOD 06/19/2024 7:[address] [facility] nRBC 0.0 <=0.0 per 100 WBCs LAB HEMATOLOGY METHOD 06/19/2024 7:[address] [facility] Differential Type Automated LAB HEMATOLOGY METHOD 06/19/2024 7:[address] [facility] Neutrophils % 75 % LAB HEMATOLOGY METHOD 06/19/2024 7:[address] [facility] Lymphocytes % 15 % LAB HEMATOLOGY METHOD 06/19/2024 7:[address] [facility] Monocytes % 6 % LAB HEMATOLOGY METHOD 06/19/2024 7:[address] [facility] Eosinophils % 2 % LAB HEMATOLOGY METHOD 06/19/2024 7:[address] [facility] Basophils % 1 % LAB HEMATOLOGY METHOD 06/19/2024 7:[address] [facility] Immature Granulocytes % 1 % LAB HEMATOLOGY METHOD 06/19/2024 7:[address] [facility] Neutrophils Absolute 4.49 1.60 - 6.10 10*3/uL LAB HEMATOLOGY METHOD 06/19/2024 7:[address] [facility] Lymphocytes Absolute 0.90(L) 1.20 - 3.90 10*3/uL LAB HEMATOLOGY METHOD 06/19/2024 7:[address] [facility] Monocytes Absolute 0.34 0.30 - 0.90 10*3/uL LAB HEMATOLOGY METHOD 06/19/2024 7:[address] [facility] Eosinophils Absolute 0.11 0.00 - 0.50 10*3/uL LAB HEMATOLOGY METHOD 06/19/2024 7:[address] [facility] Basophils Absolute 0.04 0.00 - 0.10 10*3/uL LAB HEMATOLOGY METHOD 06/19/2024 7:[address] [facility] Immature Granulocytes Absolute 0.04 0.00 - 0.06 10*3/uL LAB HEMATOLOGY METHOD 06/19/2024 7:[address] [facility] Blood Venous blood specimen / Unknown 06/19/2024 4:59 PM EDT 06/19/2024 6:[address] [facility] - 06/19/2024 7:03 PM EDT Therapeutic decision making should be based on absolute values, rather than percentages. us Luis Henderson MD LAB BLOOD ORDERABLES Final R esult [facility] [address] [place] [address] * (ABNORMAL) Comprehensive metabolic panel (06/19/2024 4:59 PM EDT) Glucose, Plasma 102(H) 74 - 99 mg/dL 06/19/2024 7:[address] [facility] BUN, Plasma 20 8 - 23 mg/dL 06/19/2024 7:[address] [facility] Creatinine, Plasma 0.34(L) 0.60 - 1.10 mg/dL 06/19/2024 7:[address] [facility] BUN/Creatinine Ratio 59 06/19/2024 7:[address] [facility] Sodium, Plasma 139 136 - 145 mmol/L 06/19/2024 7:[address] [facility] Potassium, Plasma 4.1 3.6 - 4.9 mmol/L 06/19/2024 7:[address] [facility] Chloride, Plasma 105 97 - 107 mmol/L 06/19/2024 7:[address] [facility] CO2, Plasma 24 22 - 29 mmol/L 06/19/2024 7:[address] [facility] Anion Gap 10 6 - 16 mmol/L 06/19/2024 7:[address] [facility] Total Calcium, Plasma 8.3(L) 8.9 - 10.2 mg/dL 06/19/2024 7:[address] [facility] Total Protein 6.3 6.3 - 7.9 g/dL 06/19/2024 7:[address] [facility] Albumin, Plasma 4.0 3.5 - 5.2 g/dL 06/19/2024 7:[address] [facility] AST, Plasma 16 10 - 35 U/L 06/19/2024 7:[address] [facility] ALT, Plasma 13 10 - 35 U/L 06/19/2024 7:[address] [facility] Alkaline Phosphatase, Plasma 93 46 - 142 U/L 06/19/2024 7:[address] [facility] Total Bilirubin, Plasma <0.2(L) 0.2 - 1.1 mg/dL 06/19/2024 7:[address] [facility] eGFRcr 113.7 mL/min/1.7 3m*2 06/19/2024 7:[address] [facility] Comment:Reported eGFRcr in m L/min/1.73m2 is based the CKD-EPI 2020 equation that does not use a race coefficient. Blood Venous blood specimen / Unknown 06/19/2024 4:59 PM EDT 06/19/2024 6:47 PM EDT us Luis Henderson MD LAB BLOOD ORDERABLES Final R esult [facility] [address] [place] [address] documented in this encounter Visit Diagnoses Diagnosis [...] documented as of this encounter Care Teams Lecturer In Marketing Relationship Specialty Start Date End Date Luis Henderson MD [address] [place] [address] PCP - General Internal Medicine 01/10/22 Luis Henderson MD [address] [place] [address] 09/04/21 Kasi Jacobs MD [address] [place] [address] Consulting Physician Neurology 05/17/21 Maria Guadalupe Madrigal APRN [address] [place] [address] Nurse Practitioner Urology 12/03/23 documented as of this encounter
--- OUTSIDE RECORDS SUMMARY | 2025-05-05 13:52 | XMS_ITS | Clinical Summary ---
Author Organization [facility] Address [address] [place] [address] Care Team Providers Care Cotton Seed Culler Name Role Phone Luis Henderson MD Unavailable [phone] Kasi Jacobs MD Unavailable Luis Henderson MD Primary Care Provider [phone] Maria Guadalupe Madrigal APRN Unavailable [phone] Allergies Active Allergy Reactions Criticality Noted Date [...] Low 09/05/2021 Sulfacetamide Rash Low 01/03/2010 Medications alendronate (Fosamax) 70 MG tablet Take 1 tablet by mouth every 7 days. Take in the morning with a full glass of water, on an empty stomach, and do not take anything else by mouth or lie down for the next 30 min. Active Calcium Carbonate-Vitamin D (calcium-vitamin D) 500-200 MG-UNIT tablet Take 1 tablet by mouth 2 times a day. Active Cranberry 200 MG capsule Take 200 mg by mouth 2 times a day. Active dantrolene (Dantrium) 50 MG capsule Take 1 capsule by mouth 3 times a day. Active gabapentin (Neurontin) 400 MG capsule Take 1 capsule by mouth 3 times a day. Active Misc Natural Products (Iberogast) capsule Take 1 capsule by mouth 2 times a day. Active ibuprofen 600 MG tablet Take 1 tablet by mouth every 6 hours as needed for mild pain. Active levETIRAcetam (Keppra) 500 MG tablet Take 1 tablet by mouth 2 times a day. Active lactulose (Chronulac) 10 GM/15ML solution Take 30 mL by mouth daily as needed (for constipation). Active furosemide (Lasix) 20 MG tablet Take 1 tablet by mouth daily. Active levothyroxine (Synthroid, Levoxyl) 200 MCG tablet Take 1 tablet by mouth daily before breakfast. Active Lidocaine 4 % patch Apply 1 patch topically daily. Active linaCLOtide (Linzess) 145 MCG capsule Take 1 capsule by mouth daily. Active melatonin tablet Take 2 tablets by mouth nightly. Active methylPREDNISolon e (Medrol Dospak) 4 MG tablets Take by mouth. Follow schedule on package instructions Active midodrine (Proamatine) 5 MG tablet Take 1 tablet by mouth 2 times a day. Active multivitamin (Theragran-M) tablet Take 1 tablet by mouth daily. Active mirabegron ER (Myrbetriq) 50 MG tablet Take 1 tablet by mouth daily. Active sertraline (Zoloft) 100 MG tablet Take 2 tablets by mouth daily. Active tiZANidine (Zanaflex) 4 MG tablet Take 1 tablet by mouth 2 times a day. Active traZODone (Desyrel) 50 MG tablet Take 1 tablet by mouth nightly. Active acetaminophen (Tylenol) 500 MG tablet Take 2 tablets by mouth every 8 hours as needed for pain or headaches. Active ondansetron ODT (Zofran-ODT) 4 MG disintegrating tablet Dissolve 1 tablet on the tongue every 6 hours as needed for nausea or vomiting. 20 tablet 03/29/20 25 Active naloxone (Narcan) 4 mg/0.1 mL nasal spray 1. Give 1 spray in nostril for no/slow breathing or cannot wake after opioid use 2. Call 911 3. Repeat in other nostril if symptoms continue 1 each 03/29/20 25 Active tamsulosin (Flomax) 0.4 MG 24 hr capsule Take 1 capsule by mouth 1 time each day with dinner. 30 capsule 03/29/20 25 Active Calcium Antacid 500 MG chewable tablet 02/12/20 25 Active hydrOXYzine pamoate (Vistaril) 25 MG capsule 03/23/20 25 Active loratadine (Claritin) 10 MG tablet 03/05/20 25 Active Milk of Magnesia 1200 MG/15ML suspension 03/05/20 25 Active traMADol (Ultram) 50 MG tablet 03/25/20 25 Active CEFADROXIL PO Take by mouth daily. Active fluticasone (Flonase) 50 MCG/ACT nasal spray 04/05/20 25 Active senna (Senokot) 8.6 MG tablet 04/05/20 25 Active tamsulosin (Flomax) 0.4 MG 24 hr capsule Take 1 capsule by mouth 1 time each day with dinner. Please take the medication until 1 day after removal of your stent 30 capsule 04/11/20 25 025 Active phenazopyridine (Pyridium) 100 MG tablet Take 2 tablets by mouth 3 times a day as needed (Bladder discomfort). 30 tablet 04/11/20 25 Active hydrOXYzine HCl (Atarax) 25 MG tablet 04/14/20 25 Active ciprofloxacin (Cipro) 500 MG tabletIndications :Kidney stone,Recurrent UTI Take 1 tablet by mouth 2 times a day for 7 days. 03/30/20 25 025 Discontinu ed(Stop Taking at Discharge) acetaminophen (Tylenol) 500 MG tablet Take 2 tablets by mouth every 6 hours as needed for pain for up to 10 days. 80 tablet 04/11/20 25 025 linezolid (Zyvox) 600 MG tabletIndications :Ureteral stone Take 1 tablet by mouth 2 times a day for 5 days. 10 tablet 04/20/20 25 025 Discontinu ed(Cost of medication ) amoxicillin-clavu lanate (Augmentin) 875-125 MG tabletIndications :Ureteral stone Take 1 tablet by mouth 2 times a day for 7 days. 14 tablet 04/20/20 025 Active Problems Problem Noted Date Diagnosed Date Hydronephrosis concurrent wi th and due to calculi of kidney and ureter 03/28/2025 Assessment & Plan (03/28/2025 5:46 AM EDT): Meme Estes is a 64 y.o. female [...] ortho is planning to manage non-operatively. UA obtained from suprapubic catheter after replacement concerning for infection. Left ureteral stones Hydronephrosis Left flank pain Urinary tract infection Suprapubic Gastelum replaced Started on ceftriaxone, previous urine cultures [...] New suprapubic catheter Cerebral palsy At baseline Kidney stone 03/27/2025 Suprapubic catheter 12/03/2023 Recurrent UTI 12/03/2023 Feeding difficulty in [...] Fall, initial encounter 03/16/2023 Overview (04/01/2023): Admit 03/15 H&P 03/15 Tertiary 03/16 Hematoma 03/16/2023 Overview (04/01/2023): There is a [...] cord infarction (completed) GERD (gastroesophageal reflux disease) 3 Overview (04/01/2023): protonix Depression 03/16/2023 Overview (04/01/2023): [...] Recurrent UTI 03/19/2022 03/22/2023 Overview (03/16/2023): Nasreen 7 Encounters Date Type Department Care Team Description 04/22/2025 Telephone [place] [facility] [address], [address] [place] [address] Gerardo Gerber MD 04/20/2025 9:30 AM EDT Office Visit Medical Office Building Urology [address], [address] [place] [address] Yahaira Leslie MD Ureteral stone (Primary Dx) 04/20/2025 Travel 04/13/2025 Orders Only Medical Office Building Urology [address], [address] [place] [address] Yahaira Leslie MD Recurrent UTI (Primary Dx) 04/12/2025 Telephone [facility] Urology [address], [address] [place] [phone] Yahaira Leslie MD HCN - Patient Message (Stent removal) 04/11/2025 10:46 AM EDT Anesthesia Event [facility] Operating Room [address] [place] [address] Wade Art MD 04/11/2025 10:10 AM EDT - 04/11/2025 11:40 AM EDT Surgery [facility] Operating Room [address] [place] [address] Yahaira Leslie MD URETEROSCOPY, WITH LASER LITHOTRIPSY 04/11/2025 7:13 AM EDT - 04/11/2025 2:45 PM EDT Hospital Encounter [facility] Operating Room [address] [place] [address] Yahaira Leslie MD Kidney stone Discharge Disposition: Home or Self Care 04/11/2025 Travel 04/05/2025 Telephone [facility] Urology [address], [address] [place] [phone] Yahaira Leslie MD 04/04/2025 Telephone [facility] Urology [address], [address] [place] [phone] Yahaira Leslie MD 04/04/2025 Telephone [facility] Urology [address], [address] [place] [address] Rahel Pineda, MACHINE MARKER 04/04/2025 Results Follow-Up [facility] Urology [address], [address] [place] [address] Maria Guadalupe Madrigal, CONDENSER TESTER 04/01/2025 2:20 PM EDT Office Visit [facility] Urology [address], [facility] [place] [address] Maria Guadalupe Madrigal, CONDENSER TESTER Recurrent UTI (Primary Dx); Suprapubic catheter (CMS/HCC); Neurogenic bladder 04/01/2025 Telephone [facility] Urology [address], [facility] Floor [facility] [place] [address] Tia Mcgrath RN 04/01/2025 Telephone [facility] Urology [address], [address] [place] [phone] Yahaira Leslie MD 04/01/2025 Travel 03/31/2025 Telephone [facility] Urology [address], [address] [place] [phone] Yahaira Leslie MD HCN - Patient Message (Scheduling ) 03/28/2025 11:13 AM EDT Anesthesia Event [facility] Operating Room [address] [place] [address] Wade Art MD Hardin, Bryan D, MD 03/28/2025 10:55 AM EDT - 03/28/2025 12:45 PM EDT Surgery [facility] Operating Room [address] [place] [address] Yahaira Leslie MD CYSTOSCOPY, WITH URETERAL STENT INSERTION 03/28/2025 12:22 AM EDT - 03/30/2025 9:13 AM EDT Hospital Encounter [facility] Inpatient [address] [place] [address] Hollar, DO Carroll Hawley Muhammad Fahad, MD Abdelfattah, Ahmed H, MD Kidney stone (Primary Dx); Chronic suprapubic catheter (CMS/HCC); Compression fracture of T7 vertebra, initial encounter ([facility]/HCC); Spastic quadriplegic cerebral palsy (CMS/HCC); Neurogenic bladder; Recurrent UTI; Compression fracture of T3 vertebra with routine healing, subsequent encounter Discharge Disposition: Long-Term Facility 03/28/2025 Telephone [facility] Urology [address], [address] [place] [phone] Yahaira Leslie MD HCN - Patient Message (Missed call ) 03/28/2025 Travel 03/27/2025 Orders Only External Location [address] [place] [phone] Chang Burroughs MD 03/27/2025 Orders Only External Location [address] [place] [phone] Provider, External 03/27/2025 Orders Only External Location [address] [place] [address] Provider, External from Last 3 Months Immunizations Immunization Administration [...] any time in the past 12 m [facility], were you homeless or living in a long-term (including now)? 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-PHOTO OPTICS TECHNICIAN) to steady your nerves or to [...] Pulse 90 04/20/2025 9:07 AM EDT Temperature 36.7 C (98.1 F) 04/11/2025 2:00 PM EDT Respiratory Rate 21 04/11/2025 2:00 PM EDT Oxygen Saturation 96% 04/20/2025 9:07 AM EDT Inhaled Oxygen Concentration - - Weight 65.8 kg (145 lb) 04/20/2025 9:07 AM EDT Height 165.1 cm (5' 5 ) 04/20/2025 9:07 AM EDT Body Mass Index 24.13 04/20/2025 9:07 AM EDT Plan of Treatment Upcoming Encounters Date Type Department Care Team (Late st Contact Info) Description 07/14/2025 8:45 AM EST Appointment [facility] Ultrasound [address] [place] [address] 07/14/2025 10:50 AM EST Office Visit Medical Office Building Urology [address], [address] [place] [address] Noomen, Zoie M, CONDENSER TESTER [address] [place] [address] 10/03/2025 11:40 AM EST Office Visit [place] [facility] [address], [address] [place] [address] Maria Guadalupe Madrigal, CONDENSER TESTER [address] [place] [address] Health Maintenance Due Date Last Done Comments [facility]-Bone Density Scan 1960 [facility]-Medicare Annual Wellness (AWV) 1960 [facility]-Infant/Child/Adol SDOH Screenings 1960 [facility]-DTaP,Tdap,and Td Vaccines (1 - Tdap) 11/15/1996 11/14/1996 CT Colonography 2003 Colonoscopy 2003 FIT-DNA 2003 FIT 2003 FOBT 2003 Sigmoidoscopy 2003 [facility]-Colorectal Cancer Screening 2003 [facility]-Breast Cancer Screening 2008 [facility]-Pneumococcal Vaccine: 50+ Years (1 of 1 - PCV) 2008 [facility]-RSV Vaccine: 60+ Years or (1 - Risk 60-74 years 1-dose series) 2018 PAM-SOUSK-73 Vaccine (2 - Ivonne risk series) 01/10/2021 12/13/2020 [facility]-Influenza Vaccine (#1) 05/09/202507/03, 07/24/2020, 07/06/2019, Additional history exists [facility]- SDOH Screenings 09/28/2025 [facility]-Adult SDOH Screenings 09/28/2025 03/28/2025 [facility]-Depression Screening 04/20/2026 04/20/2025, 04/08 [facility]-Hepatitis C Screening Completed 2023, 03/15/2023, 09/04/2021 [facility]-Zoster Vaccines Completed 12/29/2024, HPV Vaccines Aged Out No longer eligi [...] on patient's age to complete this topic Goals Goal Patient Goal Type Associated Problems Recent Progress Patient-Stated? Author Autogenerat ed Goal Care Plan Autogenerated Problem No Maria Guadalupe Tavarez [employer] Implanted Type Area Clothing Sales Assistant Device Identifier Shelf Expiration Date Model / Serial / Lot Stent Ureteral Double Pigtail Pos 6fr 24cm - Sn/A - [id number] Implanted:Qty: 1 on 04/11/2025 by Yahaira Leslie MD at [facility] Stent Left: U[employer]ter [id number] 10/27/2026 [id number] / N/A / [id number] Stent Ureteral Double Pigtail Pos 5fr 22cm - [id number] Implanted:Qty: 1 on 03/28/2025 by Yahaira Leslie MD at [facility] Left: U[employer]ter [employer]-[id number] 07/12/2027 [id number] / / [id number] Description:SUB [id number] used Explanted Type Area Clothing Sales Assistant Device Identifier Shelf Expiration Date Model / Serial / Lot Stent Ureteral Double Pigtail Pos 6fr 24cm - [id number] Implanted:03/09 by Yahaira Leslie MD (Quantity not on file) Explanted:Qty: 1 on 03/28/2025 at [facility] Left: U[employer]ter [employer]-[id number] 06/17/2026 [id number] / / [id number] Procedures Procedure Name Priority Date/Time Associated Diagnosis Comments URO CYSTO SUPPLIES Routine 04/20/2025 9: 33 AM EDT Ureteral stone WA CYSTOSCOPY,REMV CALCULUS,SIMPLE Routine 04/20/2025 9:33 AM EDT Ureteral stone FL LESS THAN 1 HOUR (NON-REPORTABLE) Routine 04/11/2025 12:28 PM EDT ROUTINE CULTURE AND GRAM STAIN Routine 04/11/2025 11:29 AM EDT Kidney stone CALCULI (KIDNEY STONE)ANALYSIS (SO) STAT 04/11/2025 11:27 AM EDT Kidney stone PB ANESTHESIA PLACEHOLDER Routine 04/11/2025 10:57 AM EDT WA AN ELECTIVE SUPRAGLOTTIC AIRWAY Routine 04/11/2025 10:57 AM EDT ADDED ON URETERAL STENT PLACEMENT 04/11/2025 10:31 AM EDT Kidney stone URETEROSCOPY, WITH LASER LITHOTRIPSY 04/11/2025 10:31 AM EDT Kidney stone URINE CULTURE Routine 04/01/2025 2:51 PM EDT Recurrent UTI BASIC METABOLIC PANEL, PLASMA Routine 03/30/2025 2:35 AM EDT CBC WITH AUTO DIFFERENTIAL Routine 03/30/2025 2:35 AM EDT MAGNESIUM, PLASMA Routine 03/30/2025 2:3 5 AM EDT PHOSPHORUS, PLASMA Routine 03/30/2025 2: 35 AM EDT BASIC METABOLIC PANEL, PLASMA Routine 03/29/2025 2:51 AM EDT CBC WITH AUTO DIFFERENTIAL Routine 03/29/2025 2:51 AM EDT MAGNESIUM, PLASMA Routine 03/29/2025 2:5 1 AM EDT PHOSPHORUS, PLASMA Routine 03/29/2025 2: 51 AM EDT CALCULI (KIDNEY STONE)ANALYSIS (SO) Routine 03/28/2025 1:04 PM EDT FL LESS THAN 1 HOUR (NON-REPORTABLE) Routine 03/28/2025 11:59 AM EDT URINE CULTURE Routine 03/28/2025 11:48 AM EDT Kidney stone PB ANESTHESIA PLACEHOLDER Routine 03/28/2025 11:24 AM EDT WA AN ELECTIVE SUPRAGLOTTIC AIRWAY Routine 03/28/2025 11:24 AM EDT CYSTOSCOPY, WITH URETERAL STENT INSERTION OR REMOVAL 03/28/2025 10:58 AM EDT Kidney stone MULTI DRUG RESISTANCE TEST Routine 03/28/2025 5:49 AM EDT SEND FER MESSAGE STAT 03/28/2025 3: 27 AM EDT URINALYSIS MICROSCOPIC FOR UA REFLEX STAT 03/28/2025 3:27 AM EDT URINE HUNTER PANEL STAT 03/28/2025 3:27 AM EDT URINALYSIS WITH REFLEX MICROSCOPIC STAT 03/28/2025 3:27 AM EDT URINALYSIS WITH REFLEX MICROSCOPIC AND CULTURE STAT 03/28/2025 3:27 AM EDT URINE CULTURE STAT 03/28/2025 3:[address] LUMBAR SPINE WO IV CONTRAST STAT 03/28/2025 2:[address] THORACIC SPINE WO IV CONTRAST STAT 03/28/2025 2:[address] CERVICAL SPINE WO IV CONTRAST STAT 03/28/2025 2:22 AM EDT FREE T4, PLASMA Routine 03/28/2025 1:14 AM EDT TSH REFLEX FT4 Add-On 03/28/2025 1:14 AM EDT VITAMIN D, 1, 25-DIHYDROXY STAT 03/28/2025 1:14 AM EDT VITAMIN D 25 HYDROXY STAT 03/28/2025 1:14 AM EDT CBC WITH AUTO DIFFERENTIAL STAT 03/28/2025 1:14 AM EDT PROCALCITONIN, PLASMA STAT 03/28/2025 1:14 AM EDT C-REACTIVE PROTEIN, PLASMA STAT 03/28/2025 1:14 AM EDT PHOSPHORUS, PLASMA STAT 03/28/2025 1: 14 AM EDT MAGNESIUM, PLASMA STAT 03/28/2025 1:1 4 AM EDT COMPREHENSIVE METABOLIC PANEL, PLASMA STAT 03/28/2025 1:[address] OUTSIDE IMAGES 03/27/2025 5:0 1 PM EDT XR OUTSIDE IMAGES 03/27/2025 2:[address] OUTSIDE IMAGES 03/27/2025 2:3 5 PM EDT HEPATITIS C ANTIBODY - ED W/REFLEX TO HCV QUANT PCR STAT 05/06/2024 1:09 AM EDT from Last 3 Months or Most Recently Relevant to Health Maintenance Results * WA CYSTOSCOPY,REMV CALCULUS,SIMPLE, URO CYSTO SUPPLIES (04/20/2025 9:33 AM EDT) Narrative Yahaira Leslie MD - 04/20/2025 9:33 AM EDT Yahaira Leslie MD 04/20/2025 9:46 AM Cysto with Stent Removal Date/Time: 04/20/2025 9:33 AM Performed by: Yahaira Leslie MD Authorized by: Yahaira Leslie MD Procedure discussed: discussed risks, benefits and alternatives Filling Operator present: yes Timeout: timeout called immediately prior to procedure Prep: patient was prepped and draped in usual sterile fashion Prep type: Betadine Anesthesia: local anesthesia Procedure Details: Cystoscope type: Flexible Cystoscopy route: transurethral Cystoscopy location: otoe-missouria bladder Cystoscopy location: otoe-[place]ou[place] bladder Irrigation used: saline Position: Supine Abnormal [...] Leslie MD PROCEDURE ORDERABLES Danita l Result * FL Less than 1 Hour Intraoperative (04/11/2025 12:28 PM EDT) Only the most recent of2 resultswithin the time period is included. Narrative IMAGING - 04/11/2025 12:31 PM EDT Images were obtained for surgical purposes. See Yahaira Leslie's surgical note in the patient's chart for the findings. Yahaira Leslie MD IMG FLUOROSCOPY PROCEDURES F inal Result IMAGING * (ABNORMAL) Routine Culture and Gram Stain (04/11/2025 11:29 AM EDT) Culture Light Growth 04/16/2025 3:48 PM EDT [facility] Culture 1+ Enterococcus faecalis(A) SAMARA 04/16/2025 3:48 PM EDT [facility] Comment: This isolate has been identified using the FDA Approved Loco2 [place] System Edited result: Previously reported as Gram positive cocci on 04/12/2025 at 1125 EDT. Culture 1+ Enterococcus raffinosus(A) SAMARA 04/16/2025 3:48 PM EDT [facility] Comment: This isolate has been identified using the FDA Approved Satellogicer [place] System The organism value for this [...] MICROBIOLOGY - GENERAL O RDERABLES Final Result [facility] [address] [place] [address] * Calculi (Kidney Stone) Analysis (04/11/2025 11:27 AM EDT) Only the most recent of2 resultswithin the time period is included. Calculi Mass 25 mg 04/15/2025 9:29 AM EDT [facility] ([place]) Calculi Description See Note 04/15/2025 9:29 AM EDT [facility] Calculi Composition See Note 04/15/2025 9:29 AM EDT [facility] ([place]) Calculus Structure of left ureter / Unknown 04/11/2025 11:27 AM EDT 04/11/2025 1:03 PM EDT Comment:Pre-op diagnosis: Kidney stone [N20.0] Narrative [facility] ([place]) - 04/15/2025 9:29 AM EDT Specimen consists [...] composition determined by FTIR analysis. Performed By: [facility] [address] [place] [address] Clerical Adviser: Douglas Rubin MD, PhD CLIA Number: [id number] us Yahaira Leslie MD LAB REF LAB BLOOD AND FLUID ORD Final Result [facility]) [address] [place] [id number] * WA AN ELECTIVE SUPRAGLOTTIC AIRWAY, PB ANESTHESIA PLACEHOLDER [...] type: LMALMA Size: 4 LMA Type: normal us Wade Art MD ANESTHESIA ORDERABLES Final Resu lt * Urine Culture (04/01/2025 2:51 PM EDT) Only the most recent of3 resultswithin the time period is included. Culture No growth at day 1 04/02/2025 1:17 PM EDT [facility] Urine Urine specimen from urinary conduit / Unknown Non-blood Collection / Unknown 04/01/2025 2:51 PM EDT 04/01/2025 4:17 PM EDT Maria Guadalupe Madrigal APRN LAB MICROBIOLOGY - GENERAL ORDERABLES Final Result [facility] [address] [place] [address] * (ABNORMAL) CBC and Differential (03/30/2025 2:35 AM EDT) Only the most recent of3 resultswithin the time period is included. WBC Count 5.30 3.70 - 10.30 10*3/uL LAB HEMATOLOGY METHOD 03/30/2025 2:[address] [facility] RBC Count 4.27 3.90 - 5.20 10*6/uL LAB HEMATOLOGY METHOD 03/30/2025 2:[address] [facility] HGB 11.0(L) 11.2 - 15.7 g/dL LAB HEMATOLOGY METHOD 03/30/2025 2:[address] [facility] HCT 35.2 34.0 - 45.0 % LAB HEMATOLOGY METHOD 03/30/2025 2:[address] [facility] Platelet Count 148(L) 155 - 369 10*3/uL LAB HEMATOLOGY METHOD 03/30/2025 2:[address] [facility] MCV 82 79 - 98 fL LAB HEMATOLOGY METHOD 03/30/2025 2:[address] [facility] MCH 25.8(L) 26.0 - 32.0 pg LAB HEMATOLOGY METHOD 03/30/2025 2:[address] [facility] MCHC 31.3 30.7 - 35.5 g/dL LAB HEMATOLOGY METHOD 03/30/2025 2:[address] [facility] RDW 15.1(H) 11.5 - 14.5 % LAB HEMATOLOGY METHOD 03/30/2025 2:[address] [facility] MPV 9.2 8.8 - 12.5 fL LAB HEMATOLOGY METHOD 03/30/2025 2:[address] [facility] nRBC 0.0 <=0.0 per 100 WBCs LAB HEMATOLOGY METHOD 03/30/2025 2:[address] [facility] Differential Type Automated LAB HEMATOLOGY METHOD 03/30/2025 2:[address] [facility] Neutrophils % 66 % LAB HEMATOLOGY METHOD 03/30/2025 2:[address] [facility] Lymphocytes % 23 % LAB HEMATOLOGY METHOD 03/30/2025 2:[address] [facility] Monocytes % 6 % LAB HEMATOLOGY METHOD 03/30/2025 2:[address] [facility] Eosinophils % 3 % LAB HEMATOLOGY METHOD 03/30/2025 2:[address] [facility] Basophils % 1 % LAB HEMATOLOGY METHOD 03/30/2025 2:[address] [facility] Immature Granulocytes % 1 % LAB HEMATOLOGY METHOD 03/30/2025 2:[address] [facility] Neutrophils Absolute 3.54 1.60 - 6.10 10*3/uL LAB HEMATOLOGY METHOD 03/30/2025 2:[address] [facility] Lymphocytes Absolute 1.22 1.20 - 3.90 10*3/uL LAB HEMATOLOGY METHOD 03/30/2025 2:[address] [facility] Monocytes Absolute 0.33 0.30 - 0.90 10*3/uL LAB HEMATOLOGY METHOD 03/30/2025 2:[address] [facility] Eosinophils Absolute 0.14 0.00 - 0.50 10*3/uL LAB HEMATOLOGY METHOD 03/30/2025 2:[address] [facility] Basophils Absolute 0.03 0.00 - 0.10 10*3/uL LAB HEMATOLOGY METHOD 03/30/2025 2:[address] [facility] Immature Granulocytes Absolute 0.04 0.00 - 0.06 10*3/uL LAB HEMATOLOGY METHOD 03/30/2025 2:[address] [facility] Blood Venous blood specimen / Unknown Venipuncture / Unknown 03/30/2025 2:35 AM EDT 03/30/2025 2:42 AM EDT Narrative [facility] - 03/30/2025 2:47 AM EDT Therapeutic decision making should be based on absolute values, rather than percentages. Luis Alfredo Hodges MD LAB BLOOD ORDERABLES Fi nal Result Performing Organization Address City/[facility] Co de Phone Number [facility] [address] [place] [address] * Phosphorus, Plasma (03/30/2025 2:35 AM EDT) Only the most recent of3 resultswithin the time period is included. Phosphorus, Plasma 3.8 2.5 - 4.5 mg/dL 03/30/2025 3:06 AM EDT [facility] Blood Venous blood specimen / Unknown Venipuncture / Unknown 03/30/2025 2:35 AM EDT 03/30/2025 2:42 AM EDT Luis Alfredo Hodges MD LAB BLOOD ORDERABLES Fi nal Result Performing Organization Address [facility] Co de Phone Number [facility] [address] [place] [address] * Magnesium, Plasma (03/30/2025 2:35 AM EDT) Only the most recent of3 resultswithin the time period is included. Magnesium, Plasma 2.0 1.9 - 2.4 mg/dL 03/30/2025 3:[address] [facility] Blood Venous blood specimen / Unknown Venipuncture / Unknown 03/30/2025 2:35 AM EDT 03/30/2025 2:42 AM EDT Luis Alfredo Hodges MD LAB BLOOD ORDERABLES Fi nal Result Performing Organization Address City/[facility] Co de Phone Number [facility] [address] [place] [address] * (ABNORMAL) Basic metabolic panel (03/30/2025 2:35 AM EDT) Only the most recent of2 resultswithin the time period is included. Glucose, Plasma 101(H) 74 - 99 mg/dL 03/30/2025 3:[address] [facility] BUN, Plasma 6(L) 8 - 23 mg/dL 03/30/2025 3:[address] [facility] Creatinine, Plasma 0.27(L) 0.60 - 1.10 mg/dL 03/30/2025 3:[address] [facility] BUN/Creatinine Ratio 22 03/30/2025 3:[address] [facility] Sodium, Plasma 142 136 - 145 mmol/L 03/30/2025 3:[address] [facility] Potassium, Plasma 3.1(L) 3.6 - 4.9 mmol/L 03/30/2025 3:[address] [facility] Chloride, Plasma 110(H) 97 - 107 mmol/L 03/30/2025 3:[address] [facility] CO2, Plasma 22 22 - 29 mmol/L 03/30/2025 3:[address] [facility] Anion Gap 10 6 - 16 mmol/L 03/30/2025 3:[address] [facility] Total Calcium, Plasma 8.3(L) 8.9 - 10.2 mg/dL 03/30/2025 3:[address] [facility] eGFRcr 120.2 mL/min/1.7 3m*2 03/30/2025 3:[address] [facility] Comment:Reported eGFRcr in m L/min/1.73m2 is based the CKD-EPI 2020 equation that does not use a race coefficient. Blood Venous blood specimen / Unknown Venipuncture / Unknown 03/30/2025 2:35 AM EDT 03/30/2025 2:42 AM EDT Luis Alfredo Hodges MD LAB BLOOD ORDERABLES Fi nal Result [facility] [address] [place] [address] * WA AN ELECTIVE SUPRAGLOTTIC AIRWAY, PB ANESTHESIA PLACEHOLDER [...] Art MD ANESTHESIA ORDERABLES Final Resu lt * Multi Drug Resistance Test (03/28/2025 5:49 AM EDT) Culture No growth at day 1 03/29/2025 8:58 AM EDT [facility] Swab (Nares and Anabella Rectal) Non-blood Collection / Unknown 03/28/2025 5:49 AM EDT 03/28/2025 6:10 AM EDT Narrative [facility] - 03/29/2025 8:58 AM EDT This test was developed and its performance characteristics determined by the [facility]. Although the media is FDA-approved, it is not FDA-approved for all specimen types submitted. The FDA has determined that such clearance or approval is not necessary. This test is used for surveillance purposes. It should not be regarded as investigational or for research. The [facility] is certified under the Clinical Laboratory Improvement Amendments of 1988 (CLIA-88) as qualified to perform high complexity clinical laboratory testing. Luis Alfredo Hodges MD LAB MICROBIOLOGY - GENE RAL ORDERABLES Final Result Performing Organization Address [facility] de Phone Number [facility] [address] [place] [address] * SEND FER MESSAGE (03/28/2025 3:27 AM EDT) Urine Urine specimen obtained by clean catch procedure / Unknown Non-blood Collection / Unknown 03/28/2025 3:27 AM EDT 03/28/2025 3:40 AM EDT us Clay Read DO LAB URINE ORDERABLES Final R esult Performing Organization Address City/[facility] Co de Phone Number [facility] [address] [place] [address] * Urine Hunter Panel (03/28/2025 3:27 AM EDT) Extra Sent for Culture 03/28/2025 4:[address] [facility] Urine Urine specimen obtained by clean catch procedure / Unknown Non-blood Collection / Unknown 03/28/2025 3:27 AM EDT 03/28/2025 3:40 AM EDT Clay Read LAB URINE ORDERABLES Final R esult Performing Organization Address City/[facility] Co de Phone Number [facility] [address] [place] [address] * Urinalysis Microscopic Examination (03/28/2025 3:27 AM EDT) Urine Urine specimen obtained by clean catch procedure / Unknown Non-blood Collection / Unknown 03/28/2025 3:27 AM EDT 03/28/2025 3:40 AM EDT Clay Read LAB URINE ORDERABLES Final R esult Performing Organization Address City/[facility] de Phone Number [facility] [address] [place] [address] * (ABNORMAL) Urinalysis with reflex microscopic (Culture NOT Included) (03/28/2025 3:27 AM EDT) Color, Urine Yellow LAB URINALYSIS - AUTOMATED METHOD 03/28/2025 4:[address] [facility] Clarity, Urine Cloudy LAB URINALYSIS - AUTOMATED METHOD 03/28/2025 4:[address] [facility] Spec Stanley, Urine 1.025 1.005 - 1.030 LAB URINALYSIS - AUTOMATED METHOD 03/28/2025 4:[address] [facility] pH, Urine 6.0 5.0 - 8.0 LAB URINALYSIS - AUTOMATED METHOD 03/28/2025 4:[address] [facility] Protein, Urine 100(A) Negative mg/dL LAB URINALYSIS - AUTOMATED METHOD 03/28/2025 4:[address] [facility] Glucose, Urine Negative Negative mg/dL LAB URINALYSIS - AUTOMATED METHOD 03/28/2025 4:[address] [facility] Ketones, Urine Negative Negative mg/dL LAB URINALYSIS - AUTOMATED METHOD 03/28/2025 4:[address] [facility] Blood, Urine Large(A) Negative LAB URINALYSIS - AUTOMATED METHOD 03/28/2025 4:[address] [facility] Bilirubin, Urine Negative Negative LAB URINALYSIS - AUTOMATED METHOD 03/28/2025 4:[address] [facility] Urobilinogen, Urine 0.2 0.2 to 1.0 mg/dL LAB URINALYSIS - AUTOMATED METHOD 03/28/2025 4:[address] [facility] Leukocytes, Urine Moderate(A) Negative LAB URINALYSIS - AUTOMATED METHOD 03/28/2025 4:[address] [facility] Nitrite, Urine Positive(A) Negative LAB URINALYSIS - AUTOMATED METHOD 03/28/2025 4:[address] [facility] RBC, Urine Unable to estimate due to obscuring WBC's (UNEWBC) 0 to 3 /HPF 03/28/2025 4:[address] [facility] Comment:This result was prev iously suppressed from the chart. WBC, Urine >50(A) 0 to 5 /HPF 03/28/2025 4:[address] [facility] Comment:This result was prev iously suppressed from the chart. Squamous Epithelial Cells Unable to estimate due to obscuring WBC's (UNEWBC) 0 to 5 /HPF 03/28/2025 4:[address] [facility] Comment:This result was prev iously suppressed from the chart. Hyaline Casts Unable to estimate due to obscuring WBC's (UNEWBC) 0 to 5 /LPF 03/28/2025 4:[address] [facility] Comment:This result was prev iously suppressed from the chart. Bacteria, Urine Present Negative 03/28/2025 4:[address] [facility] Comment:This result was prev iously suppressed from the chart. Urine Urine specimen obtained by clean catch procedure / Unknown Non-blood Collection / Unknown 03/28/2025 3:27 AM EDT 03/28/2025 3:[address] [facility] - 03/28/2025 4:12 AM EDT Performed by manual method Clay Read DO LAB URINE ORDERABLES Final R esult [facility] [address] [place] [address] * CT Lumbar Spine wo IV Contrast [...] Total DLP (Dose-Length Product): 1311.58 mGy.cm (accession [id number]), 1311.58 mGy.cm (accession [id number]), 327.76 mGy.cm (accession [id number]). Please note: The reported value represents the [...] Total DLP (Dose-Length Product): 1311.58 mGy.cm (accession [id number]),1311.58 mGy.cm (accession [id number]), 327.76 mGy.cm (accession [id number]).Please note: The reported value represents the total [...] Total DLP (Dose-Length Product): 1311.58 mGy.cm (accession [id number]), 1311.58 mGy.cm (accession [id number]), 327.76 mGy.cm (accession [id number]). Please note: The reported value represents the [...] Total DLP (Dose-Length Product): 1311.58 mGy.cm (accession [id number]),1311.58 mGy.cm (accession [id number]), 327.76 mGy.cm (accession [id number]).Please note: The reported value represents the total [...] Total DLP (Dose-Length Product): 1311.58 mGy.cm (accession [id number]), 1311.58 mGy.cm (accession [id number]), 327.76 mGy.cm (accession [id number]). Please note: The reported value represents the [...] Total DLP (Dose-Length Product): 1311.58 mGy.cm (accession [id number]),1311.58 mGy.cm (accession [id number]), 327.76 mGy.cm (accession [id number]).Please note: The reported value represents the total [...] signing this report, I, the attending physician, skyler I have personally reviewed the images/data for the aboveexamination(s) and agree with the final edited report. Drafted by Gerardo Benedict MD on 03/28/2025 2:56 AM Final report signed by Cole Carballo MD on 03/28/2025 3:43 AM us Clay Read DO IMG CT PROCEDURES Final Resu lt * (ABNORMAL) TSH Reflex FT4 (03/28/2025 1:14 AM EDT) Thyroid Stimulating Hormone, Plasma 7.49(H) 0.40 - 4.20 uIU/mL 03/28/2025 7:47 AM EDT [facility] Blood Venous blood specimen / Unknown Venipuncture / Unknown 03/28/2025 1:14 AM EDT 03/28/2025 1:34 AM EDT Luis Alfredo Hodges MD LAB BLOOD ORDERABLES Fi nal Result Performing Organization Address City/State/[facility] Co de Phone Number [facility] [address] [place] [address] * Procalcitonin (03/28/2025 1:14 AM EDT) Procalcitonin, [...] predict 28 day mortality risk. Please consult [email or web address] for more information. Test performed at [facility]. Clay Cal Jacek LAB BLOOD ORDERABLES Final R esult Performing Organization Address [facility] Co de Phone Number [facility] [address] [place] [address] * (ABNORMAL) Vitamin D 1,25 dihydroxy (03/28/2025 1:14 AM EDT) VITAMIN D, 1, 25-DIHYDROXY 108(H) 19.9 - 79.3 pg/mL 03/31/2025 5:01 AM EDT [facility] Blood Venous blood specimen / Unknown Venipuncture / Unknown 03/28/2025 1:14 AM EDT 03/28/2025 1:34 AM EDT Clay Cal Jacek LAB BLOOD ORDERABLES Final R esult Performing Organization Address [facility] [place] [address] * Vitamin D 25 Hydroxy (03/28/2025 1:14 AM EDT) Vitamin D 25 Hydroxy 32.2 20.0 - 80.0 ng/mL 03/28/2025 5:05 AM EDT [facility] Blood Venous blood specimen / Unknown Venipuncture / Unknown 03/28/2025 1:14 AM EDT 03/28/2025 1:34 AM EDT Narrative [facility] - 03/28/2025 5:05 AM EDT Testing performed on [employer]oes, standardized against NIST SRM 2972. When testing [...] ng/mL Possible toxicity: >100 ng/mL Clay Read LAB BLOOD ORDERABLES Final R esult Performing Organization Address City/[facility] Co de Phone Number [facility] [address] [place] [address] * C-Reactive protein (03/28/2025 1:14 AM EDT) CRP, Plasma 4.1 <=8.0 mg/L 03/28/2025 2:[address] [facility] Blood Venous blood specimen / Unknown Venipuncture / Unknown 03/28/2025 1:14 AM EDT 03/28/2025 1:34 AM EDT Narrative [facility] - 03/28/2025 2:14 AM EDT This CRP test is appropriate for assessment of infection, systemic inflammation and/or tissue injury. To assess cardiovascular disease risk order high sensitivity CRP (CRPH). Clay Read DO LAB BLOOD ORDERABLES Final R esult Performing Organization Address [facility] Co de Phone Number [facility] [address] [place] [address] * Free T4, Plasma (03/28/2025 1:14 AM EDT) Free T4, Plasma 1.2 0.8 - 1.7 ng/dL 03/28/2025 8:[address] [facility] Blood Venous blood specimen / Unknown Venipuncture / Unknown 03/28/2025 1:14 AM EDT 03/28/2025 1:34 AM EDT Luis Alfredo Hodges MD LAB BLOOD ORDERABLES Fi nal Result Performing Organization Address City/[facility] Co de Phone Number [facility] [address] [place] [address] * (ABNORMAL) CMP (03/28/2025 1:14 AM EDT) Glucose, Plasma 78 74 - 99 mg/dL 03/28/2025 2:[address] [facility] BUN, Plasma 18 8 - 23 mg/dL 03/28/2025 2:[address] [facility] Creatinine, Plasma 0.41(L) 0.60 - 1.10 mg/dL 03/28/2025 2:[address] [facility] BUN/Creatinine Ratio 44 03/28/2025 2:[address] [facility] Sodium, Plasma 141 136 - 145 mmol/L 03/28/2025 2:[address] [facility] Potassium, Plasma 3.9 3.6 - 4.9 mmol/L 03/28/2025 2:[address] [facility] Chloride, Plasma 107 97 - 107 mmol/L 03/28/2025 2:[address] [facility] CO2, Plasma 25 22 - 29 mmol/L 03/28/2025 2:[address] [facility] Anion Gap 9 6 - 16 mmol/L 03/28/2025 2:[address] [facility] Total Calcium, Plasma 8.2(L) 8.9 - 10.2 mg/dL 03/28/2025 2:[address] [facility] Total Protein 6.4 6.3 - 7.9 g/dL 03/28/2025 2:[address] [facility] Albumin, Plasma 3.8 3.5 - 5.2 g/dL 03/28/2025 2:[address] [facility] AST, Plasma 13 10 - 35 U/L 03/28/2025 2:[address] [facility] ALT, Plasma 7(L) 10 - 35 U/L 03/28/2025 2:[address] [facility] Alkaline Phosphatase, Plasma 82 46 - 142 U/L 03/28/2025 2:[address] [facility] Total Bilirubin, Plasma <0.2(L) 0.2 - 1.1 mg/dL 03/28/2025 2:[address] [facility] eGFRcr 108.7 mL/min/1.7 3m*2 03/28/2025 2:[address] [facility] Comment:Reported eGFRcr in m L/min/1.73m2 is based the CKD-EPI 2020 equation that does not use a race coefficient. Blood Venous blood specimen / Unknown Venipuncture / Unknown 03/28/2025 1:14 AM EDT 03/28/2025 1:34 AM EDT Clay Read DO LAB BLOOD ORDERABLES Final R esult Performing Organization Address City/[facility] Co de Phone Number [facility] [address] [place] [address] * CT OUTSIDE IMAGES (03/27/2025 5:01 PM EDT) Only the most recent of2 resultswithin the time period is included. Anatomical Region Laterality Modality Computed Tomogra phy 03/27/2025 5:01 PM EDT Chang Burroughs MD IMG CT PROCEDURES Final Result * XR OUTSIDE IMAGES (03/27/2025 2:36 PM EDT) Anatomical Region Laterality Modality Radiographic Ceci ging 03/27/2025 2:36 PM EDT External Provider IMG XR PROCEDURES Final Result * Hepatitis C Antibody - ED (05/06/2024 1:09 AM EDT) Hepatitis C Antibody Negative Negative 05/06/2024 2:56 AM EDT [facility] Blood Venous blood specimen / Unknown Venipuncture / Unknown 05/06/2024 1:09 AM EDT 05/06/2024 2:06 AM EDT Sallie Cervantes DO LAB BLOOD ORDERABLES Final Res ult Performing Organization Address City/[facility] Co de Phone Number [facility] [address] [place] [address] from Last 3 Months or Most Recently Relevant to Health Maintenance Additional Health Concerns Active Problems Noted Date Diagnosed Date Autogenerated Problem 04/04/2025 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 Yes I have reviewed the capacity from the link above and, if needed, have updated to appropriate status: Yes * Full Code Date Activated Date Inactivated Comments 03/16/2023 12:16 AM 04/02/2023 11:31 AM Question Answer Comments Patient has decision-making capacity? Yes * Full Code Date Activated Date Inactivated Comments 09/04/2021 10:21 PM 09/06/2021 3:41 PM Patient h as living will. Ex will bring in documents of living will tomorrow. Question Answer Comments Patient has decision-making capacity? No Healthcare Surrogate: Healthcare POA Care Teams Cotton Seed Culler Relationship Specialty Start Date End Date Luis Henderson MD [address] [place], [place] [address] PCP - General Internal Medicine 01/10/22 Luis Henderson MD [address] [place], [place] [address] 09/04/21 Kasi Jacobs MD [address] [place] [address] Consulting Physician Neurology 05/17/21 Maria Guadalupe Madrigal APRN [address] [place] [address] Nurse Practitioner Urology 12/03/23
--- OUTSIDE RECORDS SUMMARY | 2025-05-05 13:53 | XMS_ITS | Encounter Summary ---
Author Organization [facility] Address [address] [place] [address] Care Team Providers Care Software Developer Name Role Phone Luis Henderson MD Unavailable [phone] Kasi Jacobs MD Unavailable [phone] Luis Henderson MD Primary Care Provider + [phone] Maria Guadalupe Madrigal APRN Unavailable [phone] Reason for Visit * Reason Onset Date Comments HCN - Patient Message 03/28/2025 Missed mayda l Encounter Details Date Type Department Care Team (Late st Contact Info) Description 03/28/2025 Telephone [facility] [address] [place] [address] Yahaira Leslie MD [address] [place] [address] HCN - Patient Message (Missed call ) Social History Tobacco Use Types Packs/Day Years [...] any time in the past 12 m [facility], were you homeless or living in a [...] drink first t alli in the 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 0 03/16/2023 CAGE Questionnaire Score 0 023 Utilities Answer Date Recorded In the past 12 months has th [employer], gas, oil, or water [employer] threatened to shut off services in your [...] Author No Risk Indicated 03/28/2025 2:09 AM EDTito Fuchs RN * Question Answer Date of Assessment Author 1. Wish to be (Past 1 Month) No 025 2:09 AM Tito Helton RN 2. Non-Specific Active Suici abeba Thoughts (Past 1 Month) No 03/28/2025 2:09 AM EDAshwin Fuchs RN 6. Suicidal Behavior (Lifetime) No 5 2:09 AM EDTito Fuchs RN documented as of this encounter Miscellaneous Notes * Telephone Encounter - Odalys Weeks - 03/28/2025 12:13 PM EDT Patient Phone Message Reason for Call: Daughter states she missed a call from Dr Leslie and requesting a return call please. Best contact number and optimal time of day to reach caller: [phone] Note: Please do not reply to this message. Follow-up communication and further actions as a result of this message need to be communicated with the patient directly, if the patient is not active onMyChart. If the patient is active on MyChart, they will receive notification of the communication/outcome via [employer]. documented in this encounter Plan of Treatment Upcoming Encounters Date Type Department Care Team (Late st Contact Info) Description 07/14/2025 8:45 AM EST Appointment [facility] Ultrasound [address] [place] [address] 07/14/2025 10:50 AM EST Office Visit Medical Office Building Urology [address] [facility] [place] [phone] Zoie Restrepo, FURNACE MECHANIC [address] [place] [address] 10/03/2025 11:40 AM EST Office [facility] [place] [facility] [address] [place] [address] Maria Guadalupe Madrigal, FURNACE MECHANIC [address] [place] [address] documented as of this encounter [...] as of this encounter Care Teams Software Developer Relationship Specialty Start Date End Date Luis Henderson MD [address] [place] [address] PCP - General Internal Medicine 01/10/22 Luis Henderson MD [address] [place] [address] 09/04/21 Kasi Jacobs MD [address] [place] [address] Consulting Physician Neurology 05/17/21 Maria Guadalupe Madrigal APRN [address] [place] [address] Nurse Practitioner Urology 12/03/23 documented as of this encounter
--- OUTSIDE RECORDS SUMMARY | 2025-05-05 13:53 | XMS_ITS | Encounter Summary ---
Author Organization [facility] Address [address] [place] [address] Care Team Providers Care Oil Scout Name Role Phone Luis Henderson MD Primary Care Provider + [phone] Pcp, No Primary Care Provider Unavailabl e Luis Henderson MD Unavailable [phone] Kasi Jacobs MD Unavailable [phone] Luis Henderson MD Primary Care Provider [phone] Maria Guadalupe Madrigal WARP SCOURING VAT TENDER Unavailable [phone] Reason for Visit * Reason Onset Date Comments HCN - Patient Message 03/21/2021 Patient re quests US results Encounter Details Date Type Department Care Team (Late st Contact Info) Description 03/21/2021 Telephone [facility] [address] [place] [address] Maria Guadalupe Madrigal, WARP SCOURING VAT TENDER [address] [place] [address] HCN - Patient Message (Patient [...] calling back about ultrasound results performed at [facility] Best contact number and optimal time of day to reach caller: [phone] Note: Please do not reply to this message. Follow-up communication and further actions as a result of this message need to be communicated with the patient directly, if the patient is not active onMyChart. If the patient is active on MyChart, they will receive notification of the communication/outcome via [employer]. * Telephone Encounter - Saniya Michel - 03/27/2021 12:51 PM EDT Patient Phone Message Reason for Call: Patient requesting US results Best contact number and optimal time of day to reach caller: [phone] Or [phone] Note: Please do not reply to this [...] Info) Description 07/14/2025 8:45 AM EST Appointment [facility] Ultrasound [address] [place] [id number] 07/14/2025 10:50 AM EST Office Visit Medical Office Building Urology [address] [facility], [address] [place] [address] Zoie Restrepo, WARP SCOURING VAT TENDER [address] [place] [address] 10/03/2025 11:40 AM EST Office [facility] [place] [facility] [address] [place] [address] Maria Guadalupe Madrigal, WARP SCOURING VAT TENDER [address] [place] [address] documented as of this encounter Visit Diagnoses Not on filedocumented in this encounter Additional Health Concerns Infection Onset Date Last Indicated Resolved Time 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 documented as of this encounter Care Teams Oil Scout Relationship Specialty Start Date End Date Luis Henderson MD [address] [facility] [address] [place] [address] PCP - General 01/19/21 09/03/21 Pcp, [facility] [address] [place] [address] PCP - General Family Medicine 09/04/21 01/09/22 Luis Henderson MD [address] [place] [address] PCP - General Internal Medicine 01/10/22 Luis Henderson MD [address] [place] [address] 09/04/21 Kasi Jacobs MD [address] [place] [address] Consulting Physician Neurology 05/17/21 Maria Guadalupe Madrigal APRN [address] [place] [address] Nurse Practitioner Urology 12/03/23 documented as of this encounter
--- OUTSIDE RECORDS SUMMARY | 2025-05-05 13:53 | XMS_ITS | Encounter Summary ---
Author Organization [facility] Address [address] [place] [address] Care Team Providers Care Technical Services Librarian Name Role Phone Luis Henderson MD Unavailable [phone] Kasi Jacobs MD Unavailable [phone] Luis Henderson MD Primary Care Provider + [phone] Maria Guadalupe Madrigal APRN Unavailable [phone] Encounter Details Date Type Department Care Team (Late st Contact Info) Description 04/04/2025 Telephone [facility] [address], [address]nd [place] [address] Rahel Pineda LPN [facility] Social History Tobacco Use Types Packs/Day Years [...] any time in the past 12 m [facility], were you homeless or living in a penitentiary (including now)? 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-CHILD PSYCHOLOGY TEACHER) to steady your nerves or to get [...] on file documented as of this encounter Miscellaneous Notes * Telephone Encounter - Maria Guadalupe Tavarez - 04/04/2025 11:18 AM EDT Spoke with [facility] at facility , scheduled surgery and faxed surgery info * Telephone Encounter - Yahaira Leslie MD - 04/04/2025 10:40 AM EDT I sent a message to Sanju, hopefully in the next 2-4 weeks * Telephone Encounter - Rahel Pineda LPN - 04/04/2025 10:06 AM EDT I called and spoke with the patient and I relayed the message. She told me that I needed to call the nursing facility in [place] at [phone]. I gave the order to the charge nurse. The patient was asking when she is supposed to have surgery. I looked at her chart and did not see any surgery scheduled. Please advise. Thanks * Telephone Encounter - Rahel Pineda LPN - 04/04/2025 9:51 AM EDT ----- Message from Maria Guadalupe Madrigal APRN sent at 04/01/2025 4:25 PM EDT ----- Regarding: FW: flank pain/stent Can you please let her know that Dr. Leslie suggested alternating ibuprofen and tylenol on a schedule for her pain? Thank you! ----- Message ----- From: Yahaira Leslie MD Sent: 04/01/2025 4:11 PM EDT To: Maria Guadalupe Madrigal APRN; [facility] Urology Endou# Subject: RE: flank pain/stent Alternating tylenol and ibuprofen, at her age I don't think Toradol is a great idea ----- Message ----- From: Maria Guadalupe Madrigal APRN Sent: 04/01/2025 2:41 PM EDT To: [facility] Urology Endourology Team - Providers Subject: flank pain/stent Hi, This is a patient who had a left ureteral stent placement with Dr. Leslie on 03/28. She was previously scheduled for her regular follow up with me today. She reports persistent left flank pain despiteOxycodone. I was just curious if there was anything else you all would recommend for her. Thank you! documented in this encounter Plan of Treatment Upcoming Encounters Date Type Department Care Team (Late st Contact Info) Description 07/14/2025 8:45 AM EST Appointment [facility] Ultrasound [address], [address]nd [place] [address] 07/14/2025 10:50 AM EST Office Visit Medical Office Building Urology [address] [facility] [address], [address] [place] [address] Zoie Restrepo APRN [address] [place] [address] 10/03/2025 11:40 AM EST Office Visit [facility] Urology [address], [address] [place] [address] Maria Guadalupe Madrigal APRN [address] [place] [address] documented as of this encounter Goals Goal Patient Goal Type Associated Problems Recent Progress Patient-Stated? Author Autogenerat ed Goal Care Plan Autogenerated Problem No Maria Guadalupe Tavarez documented as of this encounter Visit Diagnoses Not on filedocumented in this encounter Additional Health Concerns Active [...] documented as of this encounter Care Teams Technical Services Librarian Relationship Specialty Start Date End Date Luis Henderson MD [address] [place] [address] PCP - General Internal Medicine 01/10/22 Luis Henderson MD [address] [place], [place] [address] 09/04/21 Kasi Jacobs MD [address] [place] [address] Consulting Physician Neurology 05/17/21 Maria Guadalupe Madrigal APRN [address] [place] [address] Nurse Practitioner Urology 12/03/23 documented as of this encounter
--- OUTSIDE RECORDS SUMMARY | 2025-05-05 13:53 | XMS_ITS | Encounter Summary ---
Author Organization [facility] Address [address] [place] [address] Care Team Providers Care Dental Practice Manager Name Role Phone Luis Henderson MD Unavailable [phone] Kasi Jacobs MD Unavailable [phone] Luis Henderson MD Primary Care Provider + [phone] Maria Guadalupe Madrigal APRN Unavailable [phone] Reason for Visit * Reason Onset Date Comments HCN - Patient Message 03/31/2025 Scheduling Encounter Details Date Type Department Care Team (Late st Contact Info) Description 03/31/2025 Telephone [place] [facility] [address], [address] [place] [address] Yahaira Leslie MD [address] [place] [address] HCN - Patient Message (Scheduling ) Social History Tobacco Use Types Packs/Day [...] any time in the past 12 m [facility], were you homeless or living in a snf (including now)? 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-SQUEEZER OPERATOR) to steady your nerves or to get rid of a hangover? 0 03/16/2023 CAGE Questionnaire Score 0 023 Utilities Answer Date Recorded In the past 12 months has e [employer], gas, oil, or water [employer] threatened to shut off services in your [...] * Telephone Encounter - Odalys Weeks - 03/31/2025 1:38 PM EDT Patient Phone Message Reason for Call: Pt requesting a return call regarding surgery scheduling please. Pt would like [facility] at the facility to be contacted Best contact number and optimal time of day to reach caller: [phone] ext Jovanna De Dios Note: Please do not reply to this message. Follow-up communication and further actions as a result of this message need to be communicated with the patient directly, if the patient is not active onMyChart. If the patient is active on MyChart, they will receive notification of the communication/outcome via [employer]. * Telephone Encounter - Maria Guadalupe Tavarez - 03/31/2025 12:58 PM EDT Left message with patient to return call on direct line to schedule surgery documented in this encounter Plan of Treatment Upcoming Encounters Date Type Department Care Team (Late st Contact Info) Description 07/14/2025 8:45 AM EST Appointment [facility] Ultrasound [address], [address]nd [place] [address] 07/14/2025 10:50 AM EST Office Visit Medical Office Building Urology [address] [facility], [address] [place] [address] Zoie Restrepo Jovita, ENTEROSTOMAL NURSE [address] [place] [address] 10/03/2025 11:40 AM EST Office Visit [place] [facility] [address], [address] [place] [address] Maria Guadalupe Madrigal, ENTEROSTOMAL NURSE [address] [place] [address] documented as of this encounter [...] documented as of this encounter Care Teams Dental Practice Manager Relationship Specialty Start Date End Date uLis Henderson MD [address] [place] [address] PCP - General Internal Medicine 01/10/22 Luis Henderson MD [address] [place] [address] 09/04/21 Kasi Jacobs MD [address] [place] [address] Consulting Physician Neurology 05/17/21 Maria Guadalupe Madrigal APRN [address] [address] Nurse Practitioner Urology 12/03/23 documented as of this encounter
--- OUTSIDE RECORDS SUMMARY | 2025-05-05 13:53 | XMS_ITS | Encounter Summary ---
Author Organization [facility] Address [address] [place] [address] Care Team Providers Care Geographic Information Scientist Name Role Phone Luis Henderson MD Unavailable [phone] Kasi Jacobs MD Unavailable Luis Henderson MD Primary Care Provider + [phone] Maria Guadalupe Madrigal APRN Unavailable [phone] Encounter Details Date Type Department Care Team (Latest Contact Info) Description 04/01/2025 Travel Social History Tobacco Use Types Packs/Day [...] time in the past 12 m [facility], were you homeless or living in a [...] drink first t alli in the morning (EYE-CHEMICAL MACHINE TENDER) to steady your nerves or to get rid of a hangover? 0 03/16/2023 CAGE Questionnaire Score 0 023 Utilities Answer Date Recorded In the past 12 months has th e electric, gas, oil, or water [employer] threatened to shut off services in your home? No 03/28/2025 PHQ-2A Answer Date Recorded Patient Health Questionnaire-2 Score 1 04/17/2023 Comments No Sex and Gender Information Value Date Recorded Sex Assigned at Not on file Legal Sex Female 7:58 PM EDT Gender Identity Not on file Sexual Orientation Not on file documented as of this encounter Functional Status * Over the [...] Kasi Stewart documented as of this encounter Plan of Treatment Upcoming Encounters Date Type Department Care Team (Late st Contact Info) Description 07/14/2025 8:45 AM EST Appointment [facility] Ultrasound [address]nd [place] [address] 07/14/2025 10:50 AM EST Office Visit Medical Office Building Urology [address] [facility], [address] [place] [address] Zoie Restrepo, PRODUCTION STATISTICAL CLERK [address] [address] 10/03/2025 11:40 AM EST Office Visit [place] [facility] [address] [place] [address] Maria Guadalupe Madrigal, PRODUCTION STATISTICAL CLERK [address] [address] documented as of this encounter Visit [...] documented as of this encounter Care Teams Geographic Information Scientist Relationship Specialty Start Date End Date Luis Henderson MD [address] [place] [address] PCP - General Internal Medicine 01/10/22 Luis Henderson MD [address] [place], [place] [address] 09/04/21 Kasi Jacobs MD [address] [place] [address] Consulting Physician Neurology 05/17/21 Maria Guadalupe Madrigal APRN [address] [place] [address] Nurse Practitioner Urology 12/03/23 documented as of this encounter
--- OUTSIDE RECORDS SUMMARY | 2025-05-05 13:53 | XMS_ITS | Encounter Summary ---
Author Organization [facility] Address [address] [place] [address] Care Team Providers Care Pit Worker Power Shovel Name Role Phone Luis Henderson MD Unavailable [phone] Kasi Jacobs MD Unavailable [phone] Luis Henderson MD Primary Care Provider + [phone] Maria Guadalupe Madrigal APRN Unavailable [phone] Encounter Details Date Type Department Care Team (Late st Contact Info) Description 04/01/2025 Telephone [place] [facility] [address], [address] [place] [address] Tia Mcgrath RN `````````````````````````` ``````````````````[facility] - OPERATING ROOM, PAV A Social History Tobacco Use Types Packs/Day Years [...] time in the past 12 m [facility], were you homeless or living [...] drink first t alli in the morning (EYE-ENVIRONMENTAL SERVICES COORDINATOR) to steady your nerves or to get [...] encounter Miscellaneous Notes * Telephone Encounter - Tia Mcgrath RN - 04/01/2025 4:33 PM EDT I attempted to contact Meme Estes by phone at [phone]. There was no answer. I left amessage for the patient to call the Urology Clinic at [phone]. documented in this encounter Plan of Treatment Upcoming Encounters Date Type Department Care Team (Late st Contact Info) Description 07/14/2025 8:45 AM EST Appointment [facility] Ultrasound [address], [address]nd [place] [address] 07/14/2025 10:50 AM EST Office Visit Medical Office Building Urology [address], [address] [place] [address] TaylorZoie andres Jovita, WAIVER ANALYST [address] [place] [address] 10/03/2025 11:40 AM EST Office Visit [facility] Urology [address], [address] [place] [address] Maria Guadalupe Madrigal APRN [address] [place] [address] documented as of this encounter [...] documented as of this encounter Care Teams Pit Worker Power Shovel Relationship Specialty Start Date End Date Luis Henderson MD [address] [place], [place] [address] PCP - General Internal Medicine 01/10/22 Luis Henderson MD [address] [place], [place] [address] 09/04/21 Kasi Jacobs MD [address] [place] [address] Consulting Physician Neurology 05/17/21 Maria Guadalupe Madrigal APRN [address] [place] [address] Nurse Practitioner Urology 12/03/23 documented as of this encounter
--- OUTSIDE RECORDS SUMMARY | 2025-05-05 13:53 | XMS_ITS | Encounter Summary ---
Author Organization [facility] Address [address] [place] [address] Care Team Providers Care Line Technician Name Role Phone Luis Henderson MD Unavailable [phone] Kasi Jacobs MD Unavailable [phone] Luis Henderson MD Primary Care Provider + [phone] Maria Guadalupe Madrigal APRN Unavailable [phone] Encounter Details Date Type Department Care Team (Late st Contact Info) Description 04/01/2025 Telephone [place] [facility] [address], [address] [place] [address] Yahaira Leslie MD [address] [place] [address] Social History Tobacco Use Types [...] any time in the past 12 m [facility], were you homeless or living in a assisted (including now)? 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-SURGERY MANAGER) to steady your nerves or to [...] Telephone Encounter - Maria Guadalupe Tavarez - 04/01/2025 2:15 PM EDT Left message with Va at facility to return call on direct line to schedule surgery documented in this encounter Plan of Treatment Upcoming Encounters Date Type Department Care Team (Late st Contact Info) Description 07/14/2025 8:45 AM EST Appointment [facility] Ultrasound [address] [place] [address] 07/14/2025 10:50 AM EST Office Visit Medical Office Building Urology [address] [facility], [address] [place] [address] Zoie Restrepo M, COMPUTER SECURITY COORDINATOR [address] [place] [address] 10/03/2025 11:40 AM EST Office Visit [facility] [address], [address] [place] [address] Maria Guadalupe Madrigal APRN [address] [place] [address] documented as of this encounter [...] documented as of this encounter Care Teams Line Technician Relationship Specialty Start Date End Date Luis Henderson MD [address] [place], [place] [address] PCP - General Internal Medicine 01/10/22 Luis Henderson MD [address] [place], [place] [address] 09/04/21 Kasi Jacobs MD [address] [place] [address] Consulting Physician Neurology 05/17/21 Maria Guadalupe Madrigal APRN [address] [place] [address] Nurse Practitioner Urology 12/03/23 documented as of this encounter
--- OUTSIDE RECORDS SUMMARY | 2025-05-05 13:53 | XMS_ITS | Encounter Summary ---
Author Organization [facility] Address [address] [place] [address] Care Team Providers Care Functional Analyst Name Role Phone Luis Henderson MD Unavailable [phone] Kasi Jacobs MD Unavailable [phone] Luis Henderson MD Primary Care Provider + [phone] Maria Guadalupe Madrigal PIG MACHINE SUPERVISOR Unavailable [phone] Encounter Details Date Type Department Care Team (Late st Contact Info) Description 04/04/2025 Results Follow-Up [place] [facility] [address] [place] [address] Maria Guadalupe Madrigal, PIG MACHINE SUPERVISOR [address] [place] [address] Social History Tobacco Use Types [...] any time in the past 12 m [facility], were you homeless or living in a [place] [facility] [place] facility (including now)? No 03/28/2025 CAGE ASSESSMENT Answer [...] Have you had a drink first t lali in the morning (EYE-OXYGEN EQUIPMENT AIDE) to steady your nerves or to get [...] Upcoming Encounters Date Type Department Care Team ([facility] Contact Info) Description 07/14/2025 8:45 AM EST Appointment [facility] Ultrasound [address]nd [place] [address] 07/14/2025 10:50 AM EST Office Visit Medical Office Building Urology [address] [facility], [address] [place] [address] Zoie Restrepo, PIG MACHINE SUPERVISOR [address] [facility] [address] [place] [address] 10/03/2025 11:40 AM EST Office [facility] [address] [place] [address] Maria Guadalupe Madrigal, PIG MACHINE SUPERVISOR [address] [place] [address] documented as of this encounter Goals Goal [...] documented as of this encounter Care Teams Functional Analyst Relationship Specialty Start Date End Date Luis Henderson MD [address] [place] [address] PCP - General Internal Medicine 01/10/22 Luis Henderson MD [address] [place] [address] 09/04/21 Kasi Jacobs MD [address] [place] [address] Consulting Physician Neurology 05/17/21 Maria Guadalupe Madrigal APRN [address] [place] [address] Nurse Practitioner Urology 12/03/23 documented as of this encounter
--- OUTSIDE RECORDS SUMMARY | 2025-05-05 13:53 | XMS_ITS | Encounter Summary ---
Author Organization [facility] Address [address] [place] [address] Care Team Providers Care Artificial Flower Maker Name Role Phone Luis Henderson MD Unavailable [phone] Kasi Jacobs MD Unavailable [phone] Luis Henderson MD Primary Care Provider + [phone] Maria Guadalupe Madrigal APRN Unavailable [phone] Encounter Details Date Type Department Care Team (Late st Contact Info) Description 04/04/2025 Telephone [place] [facility] [address] [place] [address] Yahaira Leslie MD [address] [place] [address] Social History Tobacco Use Types [...] time in the past 12 m [facility], were you homeless or living [...] drink first t alli in the morning (EYE-HEARING AID CONSULTANT) to steady your nerves or to get [...] Encounter - Maria Guadalupe Tavarez - 04/04/2025 11:16 AM EDT Spoke with [facility] at facility, scheduled 04/11 surgery given 8am arrival time , patient is aware of anesthesai preop screening call and arrival time call prior to surgery documented in this encounter Plan of Treatment Upcoming Encounters Date Type Department Care Team ([facility] Contact Info) Description 07/14/2025 8:45 AM EST Appointment [facility] Ultrasound [address] [place] [address] 07/14/2025 10:50 AM EST Office Visit Medical Office Building Urology [address] [facility], [address] [place] [address] Zoie Restrepo NEWSROOM INTERN [address] [place] [address] 10/03/2025 11:40 AM EST Office Visit [facility] Urology [address] [place] [address] Maria Guadalupe Madrigal APRN [address] [facility] [address] [place] [address] documented as of this encounter Goals Goal Patient Goal Type Associated Problems Recent Progress Patient-Stated? Author Autogenerat ed Goal Care Plan Autogenerated Problem No Corby Maria Guadalupe Zackery documented as of this encounter Visit Diagnoses [...] documented as of this encounter Care Teams Artificial Flower Maker Relationship Specialty Start Date End Date Luis Henderson MD [address] [place] [address] PCP - General Internal Medicine 01/10/22 Luis Henderson MD [address] [place], [place] [address] 09/04/21 Kasi Jacobs MD [address] [place] [address] Consulting Physician Neurology 05/17/21 Maria Guadalupe Madrigal, NEWSROOM INTERN [address] [place] [address] Nurse Practitioner Urology 12/03/23 documented as of this encounter
--- OUTSIDE RECORDS SUMMARY | 2025-05-05 13:53 | XMS_ITS | Encounter Summary ---
Author Organization [facility] Address [address] [place] [address] Care Team Providers Care Conference Services Manager Name Role Phone Luis Henderson MD Unavailable [phone] Kasi Jacobs MD Unavailable [phone] Luis Henderson MD Primary Care Provider + [phone] Maria Guadalupe Madrigal APRN Unavailable [phone] Reason for Visit * Reason Comments Med Refill Encounter Details Date Type Department Care Team (Late st Contact Info) Description 01/31/2022 Refill [place] [facility] [address] [place] [address] Dian Tovar [address] [place] [address] Social History Tobacco Use Types [...] Info) Description 07/14/2025 8:45 AM EST Appointment [facility] Ultrasound [address] [place] [address] 07/14/2025 10:50 AM EST Office Visit Medical Office Building Urology [address] [facility], [address] [place] [address] Zoie Restrepo, BIODIESEL PRODUCT MANAGER [address] [facility] [place] [address] 10/03/2025 11:40 AM EST Office Visit [place] [facility] [address] [place] [address] Maria Guadalupe Madrigal, BIODIESEL PRODUCT MANAGER [address] [place] [address] documented as of this encounter Visit Diagnoses Not on filedocumented in this encounter Additional Health Concerns Infection Onset Date Last Indicated Resolved Time 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 documented as of this encounter Care Teams Conference Services Manager Relationship Specialty Start Date End Date Luis Henderson MD [address] [place], [place] [id number] PCP - General Internal Medicine 01/10/22 Luis Henderson MD [address] [place], [place] [id number] 09/04/21 Kasi Jacobs MD [address] [place] [address] Consulting Physician Neurology 05/17/21 Maria Guadalupe Madrigal APRN [address] [place] [address] Nurse Practitioner Urology 12/03/23 documented as of this encounter
--- OUTSIDE RECORDS SUMMARY | 2025-05-05 13:54 | XMS_ITS | Encounter Summary ---
Author Organization [facility] Address [address] [place] [address] Care Team Providers Care Supervisor Chemical Name Role Phone Luis Henderson MD Unavailable [phone] Kasi Jacobs MD Unavailable [phone] Luis Henderson MD Primary Care Provider + [phone] Maria Guadalupe Madrigal APRN Unavailable [phone] Reason for Visit * Reason Onset Date Comments HCN - Patient Message 04/12/2025 Stent narendra garry Encounter Details Date Type Department Care Team (Late st Contact Info) Description 04/12/2025 Telephone [place] [facility] [address], [address] [place] [address] Yahaira Leslie MD [address] [place] [address] HCN - Patient Message (Stent removal) Social History Tobacco Use Types Packs/Day Years [...] any time in the past 12 m [facility], were you homeless or living in a fci (including now)? 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-DECKHAND FISHING VESSEL) to steady your nerves or to get rid of a hangover? 0 03/16/2023 CAGE Questionnaire Score 0 023 Utilities Answer Date Recorded In the past 12 months has [email or web address], gas, oil, or water [employer] threatened to shut off services in your home? No 03/28/2025 PHQ-2A Answer Date Recorded Patient Health Questionnaire-2 Score 1 04/17/2023 Comments No Sex and Gender Information Value Date Recorded Sex Assigned at Not on file Legal Sex Female 7:58 PM EDT Gender Identity Not on file Sexual Orientation Not on file documented as of this encounter Miscellaneous Notes * Telephone Encounter - Yahaira Leslie MD - 04/13/2025 3:28 PM EDT Friday around 9 am? * Telephone Encounter - Yahaira Leslie MD - 04/13/2025 10:48 AM EDT Can we please schedule her for stent removal with me next week? * Telephone Encounter - Odalys Weeks - 04/12/2025 2:06 PM EDT Patient Phone Message Reason for Call: [facility] requesting a return call to schedule post op follow up for next week on 04/20 but asking for time Best contact number and optimal time of day to reach caller: [phone] Note: Please do not reply to this message. Follow-up communication and further actions as a result of this message need to be communicated with the patient directly, if the patient is not active onMyChart. If the patient is active on MyChart, they will receive notification of the communication/outcome via [employer]. documented in this encounter Plan of Treatment Upcoming Encounters Date Type Department Care Team ([facility] st Contact Info) Description 07/14/2025 8:45 AM EST Appointment [facility] Ultrasound [address]nd [place] [address] 07/14/2025 10:50 AM EST Office Visit Medical Office Building Urology [address] [facility] [facility] [address] [facility] [address], [address] [place] [address] Zoie Restrepo, PRINTED CIRCUIT BOARDS ROUTER [address] [place] [address] 10/03/2025 11:40 AM EST Office [facility] [place] [facility] [address], [address] [place] [address] Maria Guadalupe Madrigal, PRINTED CIRCUIT BOARDS ROUTER [address] [place] [address] documented as of this encounter Goals Goal Patient Goal Type Associated Problems Recent Progress Patient-Stated? Author Autogenerat ed Goal Care Plan Autogenerated Problem Maria Guadalupe Rome documented as of this encounter Visit Diagnoses Not on filedocumented in this encounter Additional Health Concerns Active Problems Noted Date Diagnosed Date Autogenerated Problem 04/04/2025 Infection Onset Date Last Indicated Resolved Time 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 Assessment Noted Time PHQ-9 Depression Total Score: 13 03/22/ 024 1:09 PM EDT A fall risk assessment has been complete d for the patient 04/01/2025 2:11 PM EDT A Body Mass Index follow-up plan has been documented for the patient 04/01/2025 4:11 PM EDT documented as of this encounter Care Teams Supervisor Chemical Relationship Specialty Start Date End Date Luis Henderson MD [address] [place] [address] PCP - General Internal Medicine 01/10/22 Luis Henderson MD [address] [place] [address] 09/04/21 Kasi Jacobs MD [address] [place] [address] Consulting Physician Neurology 05/17/21 Maria Guadalupe Madrigal APRN [address] [place] [address] Nurse Practitioner Urology 12/03/23 documented as of this encounter
--- OUTSIDE RECORDS SUMMARY | 2025-05-05 13:54 | XMS_ITS | Encounter Summary ---
Author Organization [facility] Address [address] [place] [address] Care Team Providers Care Erp Analyst Name Role Phone Luis Henderson MD Unavailable [phone] Kasi Jacobs MD Unavailable [phone] Luis Henderson MD Primary Care Provider + [phone] Maria Guadalupe Madrigal APRN Unavailable [phone] Encounter Details Date Type Department Care Team (Late st Contact Info) Description 04/05/2025 Telephone [place] [facility] [address], [address] [place] [address] Yahaira Leslie MD [address] [place] [address] Social History Tobacco Use Types [...] any time in the past 12 m [facility], were you homeless or living in a senior living (including now)? 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-FIELD CROP HARVEST WORKER) to steady your nerves or to get rid of a hangover? 0 03/16/2023 CAGE Questionnaire Score 0 023 Utilities Answer Date Recorded In the past 12 months has th [employer], gas, oil, or water company threatened [...] encounter Miscellaneous Notes * Telephone Encounter - Gisell Haddad - 04/05/2025 2:14 PM EDT Contacted Jl at the facility. She verbalize understanding and had no other questions or concerns. * Telephone Encounter - Yahaira Leslie MD - 04/05/2025 11:26 AM EDT They can continue it through surgery * Telephone Encounter - Jayashree Godinez - 04/05/2025 11:04 AM EDT Clinical Concern/Question Reason for Call: jl from senior living called asking when they should hold duricef for upcoming surgery Best contact number: Other: [phone] Optimal time of day to reach caller: ANYTIME Additional comments/information from caller: None Note: Please do not reply to this message. Follow-up communication and further actions as a result of this message need to be communicated with the patient directly, if the patient is not active onMyChart. If the patient is active on MyChart, they will receive notification of the communication/outcome via [employer]. documented in this encounter Plan of Treatment Upcoming Encounters Date Type Department Care Team (Late st Contact Info) Description 07/14/2025 8:45 AM EST Appointment [facility] Ultrasound [address]nd [place] [address] 07/14/2025 10:50 AM EST Office Visit Medical Office Building Urology [address], [address] [place] [address] Zoie Restrepo, DISPATCH LEAD [address] [place] [address] 10/03/2025 11:40 AM EST Office Visit [facility] Urology [address] [place] [address] Maria Guadalupe Madrigal, DISPATCH LEAD [address] [place] [address] documented as of this encounter [...] documented as of this encounter Care Teams Erp Analyst Relationship Specialty Start Date End Date Luis Henderson MD [address] [place] [address] PCP - General Internal Medicine 01/10/22 Luis Henderson MD [address] [place] [address] 09/04/21 Kasi Jacobs MD [address] [place] [address] Consulting Physician Neurology 05/17/21 Maria Guadalupe Madrigal APRN [address] [place] [address] Nurse Practitioner Urology 12/03/23 documented as of this encounter
--- OUTSIDE RECORDS SUMMARY | 2025-05-05 13:54 | XMS_ITS | Encounter Summary ---
Author Organization [facility] Address [address] [place] [address] Care Team Providers Care Helicopter Technician Name Role Phone Luis Henderson MD Unavailable [phone] Kasi Jacobs MD Unavailable [phone] Luis Henderson MD Primary Care Provider + [phone] Maria Guadalupe Madrigal APRN Unavailable [phone] Encounter Details Date Type Department Care Team (Late st Contact Info) Description 04/13/2025 Orders Only Medical Office Building Urology [address], [address] [place] [address] Yahaira Leslie MD [address] [facility] [address] [place] [address] Recurrent UTI (Primary Dx) Social History Tobacco Use Types [...] any time in the past 12 m [facility], were you homeless or living in a [...] drink first t alli in the morning (EYE-ORTHODONTIC BAND MAKER) to steady your nerves or to [...] Upcoming Encounters Date Type Department Care Team ([facility] Contact Info) Description 07/14/2025 8:45 AM EST Appointment [facility] Ultrasound [address]nd [place] [address] 07/14/2025 10:50 AM EST Office Visit Medical Office Building Urology [address], [address] [place] [address] Zoie Restrepo, COORDINATOR OF ONLINE PROGRAMS [address] [place] [address] 10/03/2025 11:40 AM EST Office Visit [place] [facility] [address] [place] [address] Maria Guadalupe Madrigal, COORDINATOR OF ONLINE PROGRAMS [address] [place] [address] Scheduled Orders Name Type Priority Associated Diagnoses Orde r Schedule Cysto with Stent Removal Procedure Routine Recurrent UTI 1 Occurrences starting 04/13/2025 until 10/15/2026 documented as of this encounter Goals Goal Patient Goal Type Associated Problems Recent Progress Patient-Stated? Author Autogenerat ed Goal Care Plan Autogenerated Problem No Maria Guadalupe Tavarez documented as of this encounter Visit Diagnoses Diagnosis Recurrent UTI- Primary Urinary tract infection, site not specified documented [...] documented as of this encounter Care Teams Helicopter Technician Relationship Specialty Start Date End Date Luis Henderson MD [address] [place] [address] PCP - General Internal Medicine 01/10/22 Luis Henderson MD [address] [place], [place] [address] 09/04/21 Kasi Jacobs MD [address] [place] [address] Consulting Physician Neurology 05/17/21 Maria Guadalupe Madrigal APRN [address] [place] [address] Nurse Practitioner Urology 12/03/23 documented as of this encounter
--- OUTSIDE RECORDS SUMMARY | 2025-05-05 13:54 | XMS_ITS | Encounter Summary ---
Author Organization [facility] Address [address] [place] [address] Care Team Providers Care Leather Crafter Name Role Phone Luis Henderson MD Unavailable [phone] Kasi Jacobs MD Unavailable [phone] Luis Henderson MD Primary Care Provider + [phone] Maria Guadalupe Madrigal APRN Unavailable [phone] Encounter Details Date Type Department Care Team (Latest Contact Info) Description 04/20/2025 Travel Social History Tobacco Use Types Packs/Day [...] time in the past 12 m [facility], were you homeless or living in [...] drink first t alli in the morning (EYE-BRICK CHIMNEY BUILDER) to steady your nerves or to get [...] as of this encounter Functional Status * AUDIT-C Score [...] Patient does not drink 04/20/2025 9:13 AM FABIANT nIgris Reddy Q3: How often do you have six or more drinks on one occasion? Never 04/20/2025 9:13 AM FABIANT Ingris Reddy * Over the past 2 weeks, how often have you been bothered by any of the following problems? Question Answer Date of Assessment Author Little interest or pleasure in doing things Not at all 04/20/2025 9:16 AM Latasha Shell Feeling down, depressed, or hopeless Nearly every day 04/20/2025 9:16 AM Ingris Shell Patient Health Questionnaire-2 Score 3 04/20/2025 9:16 AM FABIANT Andie Reddy * Question Answer Date of Assessment Author Trouble falling or staying asleep, or sleeping too much Not at all 04/20/2025 9:16 AM Ingris Shell Feeling tired or having erica le energy Several days 04/20/2025 9:16 AM Ingris Shell Poor appetite or overeating Several days 04/20/2025 9: 16 AM Ingris Shell Feeling bad about yourself - or that you are a failure or have let yourself or your family down Not at all 04/20/2025 9:16 AM Ingris Shell Trouble concentrating on things, such as reading the newspaper or watching television Several days 04/20/2025 9:16 AM Ingris Shell Moving or speaking so slowly that other people could have noticed? Or the opposite - being so fidgety or restless that you have been moving around a lot more than usual. Not at all 04/20/2025 9:16 AM Ingris Shell Thoughts that you would be better off or hurting yourself in some way Not at all 04/20/2025 9:16 AM Ingris Shell Patient Health Questionnaire -9 Score 6 04/20/2025 9:16 AM Ingris Shell * If you checked off any problems on this questionnaire so far, Question Answer Date of Assessment Author How difficult have these problems made it for you to do your work, take care of things at home, or get along with other people? Not difficult at all 04/20/2025 9:16 AM Ingris Shell * How difficult have these problems made it for you to do your work, take care of things at home, or get along with other people? Answer Date of Assessment Author Not difficult at all 04/20/2025 9:16 AM EDT Ingris Porter documented as of this encounter Plan of Treatment Upcoming Encounters Date Type Department Care Team (Late st Contact Info) Description 07/14/2025 8:[address] [facility] Ultrasound [address]nd [place] [address] 07/14/2025 10:50 AM EST Office Visit Medical Office Building Urology [address] [facility], [address] [place] [address] Zoie Restrepo M, EPIC TRAINER [address] [place] [address] 10/03/2025 11:40 AM EST Office Visit [place] [facility] [address] [place] [address] Maria Guadalupe Madrigal APRN [address] [place] [address] documented as of this encounter [...] documented as of this encounter Care Teams Leather Crafter Relationship Specialty Start Date End Date Luis Henderson MD [address] [place] [address] PCP - General Internal Medicine 01/10/22 Luis Henderson MD [address] [place], [place] [address] 09/04/21 Kasi Jacobs MD [address] [place] [address] Consulting Physician Neurology 05/17/21 Maria Guadalupe Madrigal APRN [address] [place] [address] Nurse Practitioner Urology 12/03/23 documented as of this encounter
--- OUTSIDE RECORDS SUMMARY | 2025-05-05 13:54 | XMS_ITS | Encounter Summary ---
Author Organization [facility] Address [address] [place] [address] Care Team Providers Care Jitterbug Operator Name Role Phone Luis Henderson MD Unavailable [phone] Kasi Jacobs MD Unavailable [phone] Luis Henderson MD Primary Care Provider + [phone] Maria Guadalupe Madrigal APRN Unavailable [phone] Encounter Details Date Type Department Care Team (Latest Contact Info) Description 04/11/2025 Travel Social History Tobacco Use Types Packs/Day [...] any time in the past 12 m [facility], were you homeless or living in [...] first t alli in the morning (EYE-TRANSPORTATION PROJECT MANAGER) to steady your nerves or to get rid of a hangover? 0 03/16/2023 CAGE Questionnaire Score 0 023 Utilities Answer Date Recorded In the past 12 months has th e electric, gas, oil, or water [employer] threatened to shut off services in your [...] Crenshaw RN documented as of this encounter Plan of Treatment Upcoming Encounters Date Type Department Care Team (Late st Contact Info) Description 07/14/2025 8:45 AM EST Appointment [facility] Ultrasound [address]nd [place] [address] 07/14/2025 10:50 AM EST Office Visit Medical Office Building Urology [facility] [address] [facility], [address] [place] [address] Zoie Restrepo, MANAGER RESEARCH [address] [address] 10/03/2025 11:40 AM EST Office Visit [place] [facility] [address] [place] [address] Maria Guadalupe Madrigal, MANAGER RESEARCH [address] [place] [address] documented as of this encounter Goals Goal Patient Goal Type Associated Problems Recent Progress Patient-Stated? Author Autogenerat ed Goal Care Plan Autogenerated Problem No CorbyMaria Guadalupe documented as of this encounter Visit Diagnoses [...] documented as of this encounter Care Teams Jitterbug Operator Relationship Specialty Start Date End Date Luis Henderson MD [address] [place] [address] PCP - General Internal Medicine 01/10/22 Luis Henderson MD [address] [place] [address] 09/04/21 Kasi Jacobs MD [address] [place] [address] Consulting Physician Neurology 05/17/21 Maria Guadalupe Madrigal APRN [address] [place] [address] Nurse Practitioner Urology 12/03/23 documented as of this encounter
--- OUTSIDE RECORDS SUMMARY | 2025-05-05 13:55 | XMS_ITS | Encounter Summary ---
Author Organization [facility] Address [address] [place] [address] Care Team Providers Care Extractor Filler Name Role Phone Luis Henderson MD Unavailable [phone] Kasi Jacobs MD Unavailable [phone] Luis Henderson MD Primary Care Provider + [phone] Maria Guadalupe Madrigal APRN Unavailable [phone] Encounter Details Date Type Department Care Team (Late st Contact Info) Description 03/27/2025 Orders Only External Location [address] [place] [address] Chang Burroughs MD [address] [place], [place] [address] Social History Tobacco Use Types Packs/Day Years [...] any time in the past 12 m [facility], were you homeless or living [...] drink first t alli in the morning (EYE-DIGITAL MEDIA DESIGNER) to steady your nerves or to get [...] Month) No 025 7:50 AM EDT Delia Singer, HUBERT 2. Non-Specific Active Suici abeba Thoughts (Past 1 Month) No 03/30/2025 7:50 AM EDT Delia Singer, HUBERT 6. Suicidal Behavior (Lifetime) No 7:50 AM EDT Delia Singer, HUBERT documented as of this encounter Plan of Treatment Upcoming Encounters Date Type Department Care Team ([facility] st Contact Info) Description 07/14/2025 8:45 AM EST Appointment [facility] Ultrasound [address] [place] [address] 07/14/2025 10:50 AM EST Office Visit Medical Office Building Urology [address] [facility], [address] [place] [address] Zoie Restrepo, JEREMI [address] [place] [address] 10/03/2025 11:40 AM EST Office Visit [facility] Urology [address] [place] [address] Maria Guadalupe Madrigal, SUPERVISOR TILE AND MOTTLE [address] [place] [address] documented as of this encounter Procedures Procedure Name Priority Date/Time Associated Diagnosis Comments CT OUTSIDE IMAGES 03/27/2025 5:01 PM EDT documented in this encounter Results * CT OUTSIDE IMAGES (03/27/2025 5:01 PM EDT) Anatomical Region Laterality Modality Computed Tomogra phy 03/27/2025 5:01 PM EDT Chang Burroughs MD IMG CT PROCEDURES Final Result documented in this encounter Visit Diagnoses Not [...] documented as of this encounter Care Teams Extractor Filler Relationship Specialty Start Date End Date Luis Henderson MD [address] [place], [place] [address] PCP - General Internal Medicine 01/10/22 Luis Henderson MD [address] [place], [place] [address] 09/04/21 Kasi Jacobs MD [address] [place] [address] Consulting Physician Neurology 05/17/21 Maria Guadalupe Madrigal APRN [address] [place] [address] Nurse Practitioner Urology 12/03/23 documented as of this encounter
--- OUTSIDE RECORDS SUMMARY | 2025-05-05 13:55 | XMS_ITS | Encounter Summary ---
Author Organization [facility] Address [address] [place] [address] Care Team Providers Care Rn Perinatal Name Role Phone Luis Henderson MD Unavailable [phone] Kasi Jacobs MD Unavailable [phone] Luis Henderson MD Primary Care Provider + [phone] Maria Guadalupe Madrigal APRN Unavailable [phone] Encounter Details Date Type Department Care Team (Late st Contact Info) Description 04/22/2025 Telephone [facility] [address] [place] [address] Gerardo Gerber MD [address] [place] [address] Social History Tobacco Use Types [...] any time in the past 12 m [facility], were you homeless or living in a half-way (including now)? 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-ELECTROFORMER) to steady your nerves or to get rid of a hangover? 0 03/16/2023 CAGE Questionnaire Score 0 023 Utilities Answer Date Recorded In the past 12 months has th iJento, gas, oil, or water [employer] threatened to shut off services in your home? No 03/28/2025 PHQ-2A Answer Date Recorded Patient Health Questionnaire-2 Score 1 04/17/2023 Comments No Sex and Gender Information Value Date Recorded Sex Assigned at Not on file Legal Sex Female 7:58 PM EDT Gender Identity Not on file Sexual Orientation Not on file documented as of this encounter Miscellaneous Notes * Telephone Encounter - Terri Hernandez - 05/04/2025 1:26 PM EDT Patient Phone Message Reason for Call: Patient's facility calling to r/s Botox Best contact number and optimal time of day to reach caller: [phone] ext [phone] Note: Please do not reply to this message. Follow-up communication and further actions as a result of this message need to be communicated with the patient directly, if the patient is not active onMyChart. If the patient is active on MyChart, they will receive notification of the communication/outcome via [employer]. * Telephone Encounter - Yohana Herrera - 05/02/2025 12:46 PM EDT Patient Phone Message Reason for Call: [facility] calling regarding matter below and needing new date for Botox, please advise. Best contact number and optimal time of day to reach caller: [phone] ext [phone] Note: Please do not reply to this message. Follow-up communication and further actions as a result of this message need to be communicated with the patient directly, if the patient is not active onMyChart. If the patient is active on MyChart, they will receive notification of the communication/outcome via MyChart. * Telephone Encounter - Terri Hernandez - 04/22/2025 11:50 AM EDT Patient Phone Message Reason for Call: Patient's correction calling to r/s missed Botox Best contact number and optimal time of day to reach caller: [facility] gutter mouth cutter [phone] ext [phone] Note: Please do not reply to this [...] Upcoming Encounters Date Type Department Care Team ([facility] Contact Info) Description 07/14/2025 8:45 AM EST Appointment [facility] Ultrasound [address] [place] [address] 07/14/2025 10:50 AM EST Office Visit Medical Office Building Urology [address], [address] [place] [address] Zoie Restrepo, AIRCRAFT SHIPPING CHECKER [address] [place] [address] 10/03/2025 11:40 AM EST Office Visit [facility] Urology [address] [place] [address] Maria Guadalupe Madrigal, AIRCRAFT SHIPPING CHECKER [address] [place] [address] documented as of this encounter [...] documented as of this encounter Care Teams Rn Perinatal Relationship Specialty Start Date End Date Luis Henderson MD [address] [place] [address] PCP - General Internal Medicine 01/10/22 Luis Henderson MD [address] [place], [place] [address] 09/04/21 Kasi Jacobs MD [address] [place] [address] Consulting Physician Neurology 05/17/21 Maria Guadalupe Madrigal APRN [address] [place] [address] Nurse Practitioner Urology 12/03/23 documented as of this encounter
--- OUTSIDE RECORDS SUMMARY | 2025-05-05 13:55 | XMS_ITS | Encounter Summary ---
Author Organization [facility] Address [address] [place] [address] Care Team Providers Care Shrimp Header Name Role Phone Luis Henderson MD Unavailable [phone] Kasi Jacobs MD Unavailable [phone] Luis Henderson MD Primary Care Provider + [phone] Maria Guadalupe Madrigal APRN Unavailable [phone] Encounter Details Date Type Department Care Team (Late st Contact Info) Description 03/27/2025 Orders Only External Location [address] [place] [address] Provider, External Social History Tobacco Use Types Packs/Day Years [...] any time in the past 12 m [facility], were you homeless or living in [...] drink first t alli in the morning (EYE-STORE SALES MANAGER) to steady your nerves or to [...] Singer RN documented as of this encounter Plan of Treatment Upcoming Encounters Date Type Department Care Team (Late st Contact Info) Description 07/14/2025 8:45 AM EST Appointment [facility] Ultrasound [address] [place] [address] 07/14/2025 10:50 AM EST Office Visit Medical Office Building Urology [address] [facility], [address] [place] [address] Zoie Restrepo, BAIL BONDING AGENT [address] [place] [address] 10/03/2025 11:40 AM EST Office Visit [facility] Urology [address] [place] [address] Maria Guadalupe Madrigal, BAIL BONDING AGENT [address] [place] [address] documented as of this encounter Procedures Procedure Name Priority Date/Time Associated Diagnosis Comments CT OUTSIDE IMAGES 03/27/2025 2:35 PM EDT documented in this encounter Results * CT OUTSIDE IMAGES (03/27/2025 2:35 PM EDT) Anatomical Region Laterality Modality Computed Tomogra phy 03/27/2025 2:35 PM EDT External Provider IMG CT PROCEDURES Final Result documented in [...] documented as of this encounter Care Teams Shrimp Header Relationship Specialty Start Date End Date Luis Henderson MD [address] [place] [address] PCP - General Internal Medicine 01/10/22 Luis Henderson MD [address] [place] [address] 09/04/21 Kasi Jacobs MD [address] [place] [address] Consulting Physician Neurology 05/17/21 Maria Guadalupe Madrigal APRN [address] [place] [address] Nurse Practitioner Urology 12/03/23 documented as of this encounter
--- OUTSIDE RECORDS SUMMARY | 2025-05-05 13:55 | XMS_ITS | Encounter Summary ---
Author Organization [facility] Address [address] [place] [address] Care Team Providers Care Tabulating Supervisor Name Role Phone Luis Henderson MD Unavailable [phone] Kasi Jacobs MD Unavailable [phone] Luis Henderson MD Primary Care Provider + [phone] Maria Guadalupe Madrigal APRN Unavailable [phone] Encounter Details Date Type Department Care Team (Late st Contact Info) Description 03/27/2025 Orders Only External Location [address] [place] [address] Provider, External Social History Tobacco Use Types [...] any time in the past 12 m [facility], were you homeless or living in a prison (including now)? 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-OPEN HEARTH WORKER) to steady your nerves or to [...] Info) Description 07/14/2025 8:45 AM EST Appointment [facility] Ultrasound [address] [place] [address] 07/14/2025 10:50 AM EST Office Visit Medical Office Building Urology [address], [address] [place] [address] Zoie Restrepo, MEDIA LAW FACULTY MEMBER [address] [place] [address] 10/03/2025 11:40 AM EST Office Visit [facility] Urology [address] [place] [address] Maria Guadalupe Madrigal, MEDIA LAW FACULTY MEMBER [address] [place] [address] documented as of this encounter Procedures Procedure Name Priority Date/Time Associated Diagnosis Comments XR OUTSIDE IMAGES 03/27/2025 2:36 PM EDT documented in this encounter Results * XR OUTSIDE IMAGES (03/27/2025 2:36 PM EDT) Anatomical Region Laterality Modality Radiographic Ceci ging 03/27/2025 2:36 PM EDT External Provider IMG XR PROCEDURES Final Result documented in this encounter [...] documented as of this encounter Care Teams Tabulating Supervisor Relationship Specialty Start Date End Date Luis Henderson MD [address] [place] [address] PCP - General Internal Medicine 01/10/22 Luis Henderson MD [address] [place] [address] 09/04/21 Kasi Jacobs MD [address] [place] [address] Consulting Physician Neurology 05/17/21 Maria Guadalupe Madrigal APRN [address] [place] [address] Nurse Practitioner Urology 12/03/23 documented as of this encounter
--- OUTSIDE RECORDS SUMMARY | 2025-05-05 13:55 | XMS_ITS | Encounter Summary ---
Author Organization [facility] Address [address] [place] [address] Care Team Providers Care Services Host Name Role Phone Luis Henderson MD Unavailable [phone] Kasi Jacobs MD Unavailable [phone] Luis Henderson MD Primary Care Provider + [phone] Maria Guadalupe Madrigal APRN Unavailable [phone] Encounter Details Date Type Department Care Team (Latest Contact Info) Description 03/28/2025 Travel Social History Tobacco Use Types Packs/Day [...] time in the past 12 m [facility], were you homeless or living [...] drink first t alli in the morning (EYE-ELECTROPLATER) to steady your nerves or to get rid of a hangover? 0 03/16/2023 CAGE Questionnaire Score 0 023 Utilities Answer Date Recorded In the past 12 months has th e electric, gas, oil, or water [employer] threatened to shut off services in your [...] of Assessment Author No Risk Indicated 03/28/2025 8:00 PM EDT America Patel * Question Answer Date of Assessment Author 1. Wish to be (Past 1 Month) No 025 8:00 PM EDT America Patel 2. Non-Specific Active Suici abeba Thoughts (Past 1 Month) No 03/28/2025 8:00 PM EDT Meenu Patel 6. Suicidal Behavior (Lifetime) No 8:00 PM EDT America Patel documented as of this encounter Plan of Treatment Upcoming Encounters Date Type Department Care Team (Late st Contact Info) Description 07/14/2025 8:45 AM EST Appointment [facility] Ultrasound [address] [place] [address] 07/14/2025 10:50 AM EST Office Visit Medical Office Building Urology [address] [facility], [address] [place] [address] Zoie Restrepo, DISASTER RESPONSE DIRECTOR [address] [address] 10/03/2025 11:40 AM EST [facility] [address] [place] [address] Maria Guadalupe Madrigal, DISASTER RESPONSE DIRECTOR [address] [place] [address] documented as of this encounter [...] documented as of this encounter Care Teams Services Host Relationship Specialty Start Date End Date Luis Henderson MD [address] [facility] [address] [place] [address] PCP - General Internal Medicine 01/10/22 Luis Henderson MD [address] [employer] [place] [address] 09/04/21 Kasi Jacobs MD [address] [place] [address] Consulting Physician Neurology 05/17/21 Maria Guadalupe Madrigal APRN [address] [place] [address] Nurse Practitioner Urology 12/03/23 documented as of this encounter
== END 2025-05-05 23:59 | disposition home or self-care (01) ==
LOC: RAD 13:48
PROVIDERS: Visit Provider Physician Assistant Surgical
DX: S92.314A Nondisplaced fracture of first metatarsal bone, right foot, initial encounter for closed fracture (principal); M85.871 Other specified disorders of bone density and structure, right ankle and foot; R60.0 Localized edema
CPT/HCPCS: 73630

== ENCOUNTER 2025-06-14 13:34 | Outpatient (CLI) | payer MEDICARE, MEDICAID, SELFPAY ==
--- OUTSIDE RECORDS SUMMARY | 2025-04-20 09:30 | XMS_ITS | Encounter Summary ---
Author Organization [facility] Address [address] [place] [address] Care Team Providers Care Jet Ski Mechanic Name Role Phone Luis Henderson MD Unavailable [phone] Kasi Jacobs MD Unavailable [phone] Luis Henderson MD Primary Care Provider + [phone] Maria Guadalupe Madrigal APRN Unavailable [phone] Reason for Referral * Imaging (Routine) - Authorized Specialty Diagnoses / Procedures Referred By Contac t Referred To Contact Radiology Diagnoses Ureteral stone Procedures US Renal Yahaira Leslie MD [address] [place] [address] Phone: tel: fax: Referral ID Status Reason Start Date Expiration Date V isits Requested Visits Authorized [id number] Authorized 04/20/2025 10/20/2026 1 1 Reason for Visit * Reason Comments Cystoscope Stent Removal Encounter Details Date Type Department Care Team (Late st Contact Info) Description 04/20/2025 9:30 AM EDT Office Visit Medical Office Building Urology [address], [address] [place] [address] Yahaira Leslie MD [address] [place] [address] Ureteral stone (Primary Dx) Social History Tobacco Use Types Packs/Day Years Used Date Smoking Tobacco: Never Smokeless Tobacco: Never Alcohol Use Standard Drinks/Week Comments Never 0 (1 standard drink = 0.6 oz pure alcohol) Alcoholic Drinks/day: Never Drank Alcohol PHQ-2 Answer Date Recorded Patient Health Questionnaire-2 Score 3 04/20/2025 PHQ-9 Answer Date Recorded Patient Health Questionnaire-9 Score 6 04/20/2025 Humiliation, Afraid, Rape, and Kick questionnair e [...] by your partner or ex-partner? No 03/28/2025 AUDIT-C Answer Date Recorded Q1: How often do you have a drink containing alcohol? Never 04/20/2025 Q2: How many drinks containi ng alcohol do you have on a typical day when you are drinking? Patient does not drink Q3: How often do you have si x or more drinks on one occasion? Never 04/20/2025 Hunger Vital Sign Answer Date Recorded Within [...] any time in the past 12 m [facility], were you homeless or living in a detention (including now)? 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 PROFESSOR) to steady your nerves or to get [...] Sign Reading Time Taken Comments Blood Pressure 93/69 04/20/2025 9:07 AM EDT Pulse 90 04/20/2025 9:07 AM EDT Temperature - - Respiratory Rate - - Oxygen Saturation 96% 04/20/2025 9:07 AM EDT Inhaled Oxygen Concentration - - Weight 65.8 kg (145 lb) 04/20/2025 9:07 AM EDT Height 165.1 cm (5' 5 ) 04/20/2025 9:07 AM EDT Body Mass Index 24.13 04/20/2025 9:07 AM EDT documented in this encounter Functional Status * AUDIT-C Score Answer Date of Assessment Author 0 04/20/2025 9:13 AM EDT Ingris Reddy * Question Answer Date of Assessment Author Q1: How often do you have a drink containing alcohol? Never 04/20/2025 9:13 AM EDT Ingris Reddy Q2: How many drinks containing alcohol do you have on a typical day when you are drinking? Patient does not drink 04/20/2025 9:13 AM EDT Ingris Reddy Q3: How often do you have six or more drinks on one occasion? Never 04/20/2025 9:13 AM EDT Ingris Reddy * Over the past 2 weeks, how often have you been bothered by any of the following problems? Question Answer Date of Assessment Author Little interest or pleasure in doing things Not at all 04/20/2025 9:16 AM EDT Latasha Reddy Feeling down, depressed, or hopeless Nearly every day 04/20/2025 9:16 AM FABIANT Ingris Reddy Patient Health Questionnaire-2 Score 3 04/20/2025 9:16 AM EDT Brigid Reddy * Question Answer Date of Assessment Author Trouble falling or staying asleep, or sleeping too much Not at all 04/20/2025 9:16 AM Ingris Shell Feeling tired or having erica le energy Several days 04/20/2025 9:16 AM EDT Ingris Reddy Poor appetite or overeating Several days 04/20/2025 9: 16 AM FABIANT Ingris Reddy Feeling bad about yourself - or that you are a failure or have let yourself or your family down Not at all 04/20/2025 9:16 AM FABIANT Ingris Reddy Trouble concentrating on things, such as reading the newspaper or watching television Several days 04/20/2025 9:16 AM EDT Ingris Reddy Moving or speaking so slowly that other people could have noticed? Or the opposite - being so fidgety or restless that you have been moving around a lot more than usual. Not at all 04/20/2025 9:16 AM EDT Ingris Reddy Thoughts that you would be better off or hurting yourself in some way Not at all 04/20/2025 9:16 AM EDT Ingris Reddy Patient Health Questionnaire -9 Score 6 04/20/2025 9:16 AM EDT Ingris Reddy * How difficult have these problems made it for you to do your work, take care of things at home, or get along with other people? Answer Date of Assessment Author Not difficult at all 04/20/2025 9:16 AM EDT Ingris Porter * How difficult have these problems made it for you to do your work, take care of things at home, or get along with other people? Answer Date of Assessment Author Not difficult at all 04/20/2025 9:16 AM EDT Ingris Porter documented as of this encounter Miscellaneous Notes * Addendum Note - Yahaira Leslie MD - 04/20/2025 9:30 AM EDTAddended by: YAHAIRA LESLIE on: 04/20/2025 10:02 AM Modules accepted: Orders * Progress Notes - Yahaira Leslie MD - 04/20/2025 9:30 AM EDTAssociated Order(s): Cysto with Stent Removal Post-Procedure Diagnose(s): Ureteral stone Patient ID: Meme Estes is a 64 y.o. female. No diagnosis found. Cysto with Stent Removal Date/Time: 04/20/2025 9:33 AM Performed by: Yahaira Leslie MD Authorized by: Yahaira Leslie MD Procedure discussed: discussed risks, benefits and alternatives Music Mixer present: yes Timeout: timeout called immediately prior to procedure Prep: patient was prepped and draped in usual sterile fashion Prep type: Betadine Anesthesia: local anesthesia Procedure Details: Cystoscope type: Flexible Cystoscopy route: transurethral Cystoscopy location: [place] bladder Cystoscopy location: [place] bladder Irrigation used: saline Position: Supine Abnormal Bladder Details: Cystoscopy Object Removal Details: Changes since previous cystoscopy: no changes since previous cystoscopy Object removed: stent Stent laterality: left Stents removed from left ureter: 1 Removal tool: grasping forceps Complexity: simple Object removed completely: yes Post-Procedure Details: Catheter placed: no Appearance of urine after procedure: Clear Outcome: patient tolerated procedure well with no complications Disposition: discharged home in satisfactory condition Follow up in 3 months with BRYNN with Zoie Restrepo documented in this encounter Plan of Treatment Upcoming Encounters Date Type Department Care Team ([facility] st Contact Info) Description 07/14/2025 8:45 AM EST Appointment [facility] Ultrasound [address] [place] [address] 07/14/2025 10:50 AM EST Office Visit Medical Office Building Urology [address], [address] [place] [address] Zoie Restrepo, NANOSYSTEMS ENGINEER [address] [place] [address] 10/03/2025 11:40 AM EST Office Visit [facility] Urology [address] [place] [address] Maria Guadalupe Madrigal, NANOSYSTEMS ENGINEER [address] [place] [address] Scheduled Orders Name Type Priority Associated Diagnoses Orde r Schedule US Renal Imaging Routine Ureteral stone Expected: 07/21/2025 (Approximate), Expires: 10/22/2026 documented as of this encounter Procedures Procedure Name Priority Date/Time Associated Diagnosis Comments URO CYSTO SUPPLIES Routine 04/20/2025 9: 33 AM EDT Ureteral stone NM CYSTOSCOPY,REMV CALCULUS,SIMPLE Routine 04/20/2025 9:33 AM EDT Ureteral stone documented in this encounter Results * NM CYSTOSCOPY,REMV CALCULUS,SIMPLE, URO CYSTO SUPPLIES (04/20/2025 9:33 AM EDT) Narrative Yahaira Leslie MD - 04/20/2025 9:33 AM EDT Yahaira Leslie MD 04/20/2025 9:46 AM Cysto with Stent Removal Date/Time: 04/20/2025 9:33 AM Performed by: Yahaira Leslie MD Authorized by: Yahaira Leslie MD Procedure discussed: discussed risks, benefits and alternatives Music Mixer present: yes Timeout: timeout called immediately prior to procedure Prep: patient was prepped and draped in usual sterile fashion Prep type: Betadine Anesthesia: local anesthesia Procedure Details: Cystoscope type: Flexible Cystoscopy route: transurethral Cystoscopy location: [place] bladder Cystoscopy location: [place] bladder Irrigation used: saline Position: Supine Abnormal Bladder Details: Cystoscopy Object Removal Details: Changes since previous cystoscopy: no changes since previous cystoscopy Object removed: stent Stent laterality: left Stents removed from left ureter: 1 Removal tool: grasping forceps Complexity: simple Object removed completely: yes Post-Procedure Details: Catheter placed: no Appearance of urine after procedure: Clear Outcome: patient tolerated procedure well with no complications Disposition: discharged home in satisfactory condition Yahaira Leslie MD PROCEDURE ORDERABLES Danita l Result documented in this encounter Visit Diagnoses Diagnosis Ureteral stone- Primary Calculus of ureter documented in this encounter Additional Health Concerns Infection Onset Date Last Indicated 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 [place] [address] Consulting Physician Neurology 05/17/21 Maria Guadalupe Madrigal, NANOSYSTEMS ENGINEER [address] [place] [address] Nurse Practitioner Urology 12/03/23 documented as of this encounter
--- NOTE | 2025-06-14 13:40 | XR_ITS ---
FINAL REPORT TECHNIQUE: 3 views right foot CLINICAL HISTORY: right metatarsal fx COMPARISON: 05/05/2025 FINDINGS: RIGHT FOOT: AP, oblique and lateral views of the right foot were obtained. The exam is technically limited by artifact in all 3 views. There are 1st through 3rd metatarsal fractures with interval healing since the prior exam of 05/05/2025. Osteopenia is present. The joint spaces are preserved. No new fractures are identified. Soft tissues are unremarkable. IMPRESSION: 1st through 3rd metatarsal fractures with interval healing are noted when compared to the prior exam of 05/05/2025. Exam is technically limited by artifact in all 3 views. Reviewed, Interpreted and Dictated by Awa Ferrer MD Transcribed by Marii Segovia Authenticated and . [facility]
--- OUTSIDE RECORDS SUMMARY | 2025-06-14 13:42 | XMS_ITS | Clinical Summary ---
Author Organization [facility] Address [address] [place] [address] Care Team Providers Care Stock Car Driver Name Role Phone Luis Henderson MD Unavailable [phone] Kasi Jacobs MD Unavailable [phone] Luis Henderson MD Primary Care Provider + [phone] Maria Guadalupe Madrigal APRN Unavailable [phone] Allergies Active Allergy Reactions Criticality Noted Date [...] Take 2 tablets by mouth nightly. Active methylPREDNISolone (Medrol Dospak) 4 MG tablets Take [...] (Senokot) 8.6 MG tablet 04/05/20 25 Active phenazopyridine (Pyridium) 100 MG tablet Take 2 tablets by mouth 3 times a day as needed (Bladder discomfort). 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 No evidence of intracranial metastatic disease. -serum markers ordered Fall, initial encounter 03/16/2023/09/2024 Overview (04/01/2023): Admit 7/8 H&P 7/8 Tertiary 7/9 Hematoma 03/16/2023 05/29/2025 Overview (04/01/2023): There is a 4.9 x [...] likely resorb with time, no acute intervention Hyperglycemia 03/16/2023 03/25/2023 Overview (03/22/2023): Likely due [...] Encounters Date Type Department Care Team Description 05/17/2025 Telephone [facility] [address], 1st [place] [address] Gerardo Gerber MD 04/22/2025 Telephone [facility] [address], 1st [place] [address] Gerardo Gerber MD 04/20/2025 9:30 AM EDT Office Visit Medical Office Building Urology [address], [address] [place] [address] Yahaira Leslie MD Ureteral stone (Primary Dx) 04/20/2025 Travel 04/13/2025 Orders Only Medical Office Building Urology [address], [address] [place] [address] Yahaira Leslie MD Recurrent UTI (Primary Dx) 04/12/2025 Telephone [facility] [address], 2nd [place] [address] Yahaira Leslie MD HCN - Patient Message (Stent removal) 04/11/2025 10:46 AM EDT Anesthesia Event [facility] Operating Room [address] [place] [address] Wade Art MD 04/11/2025 10:10 AM EDT - 04/11/2025 11:40 AM EDT Surgery [facility] Operating Room [address] [place] [address] Yahaira Leslie MD URETEROSCOPY, WITH LASER LITHOTRIPSY 04/11/2025 7:13 AM EDT - 04/11/2025 2:45 PM EDT Hospital Encounter [facility] Operating Room [address] [place] [address] Yahaira Leslie MD Kidney stone Discharge Disposition: Home or Self Care 04/11/2025 Travel 04/05/2025 Telephone [facility] [address], [facility] [place] [address] Yahaira Leslie MD 04/04/2025 Telephone [facility] [address], [facility] [place] [address] Yahaira Leslie MD 04/04/2025 Telephone [facility] [address], [facility] [place] [address] Rahel Pineda, JOHN 04/04/2025 Results Follow-Up [facility] [address], [facility] [place] [address] Maria Guadalupe Madrigal, DOG HANDLER 04/01/2025 2:20 PM EDT Office Visit [facility] [address], [facility] [place] [address] Maria Guadalupe Madrigal, DOG HANDLER Recurrent UTI (Primary Dx); Suprapubic catheter (CMS/HCC); Neurogenic bladder 04/01/2025 Telephone [facility] [address], [facility] [place] [address] Tia Mcgrath RN 04/01/2025 Telephone [facility] [address], [address] [place] [address] Yahaira Leslie MD 04/01/2025 Travel 03/31/2025 Telephone [facility] [address], [address] [place] [address] Yahaira Leslie MD HCN - Patient Message (Scheduling ) 03/28/2025 11:13 AM EDT Anesthesia Event [facility] Operating Room [address] [place] [address] Wade Art MD Hardin, Bryan D, MD 03/28/2025 10:55 AM EDT - 03/28/2025 12:45 PM EDT Surgery [facility] Operating Room [address] [place] [address] Yahaira Leslie MD CYSTOSCOPY, WITH URETERAL STENT INSERTION 03/28/2025 12:22 AM EDT - 03/30/2025 9:13 AM EDT Hospital Encounter [facility] Inpatient [address] [place] [address] Clay Read DO Khalid, Muhammad Fahad, MD Abdelfattah, Ahmed H, MD Kidney stone (Primary Dx); Chronic suprapubic catheter (CMS/HCC); Compression fracture of T7 vertebra, initial encounter (CMS/HCC); Spastic quadriplegic cerebral palsy (CMS/HCC); Neurogenic bladder; Recurrent UTI; Compression fracture of T3 vertebra with routine healing, subsequent encounter Discharge Disposition: Intermediate Facility 03/28/2025 Telephone [facility] [address], [address] [place] [phone] Yahaira Leslie MD HCN - Patient Message (Missed call ) 03/28/2025 Travel 03/27/2025 Orders Only External Location [address] [place] [address] Chang Burroughs MD 03/27/2025 Orders Only External Location [address] [place] [address] Provider, External 03/27/2025 Orders Only External Location [address] [place] [address] Provider, External from Last 3 [...] any time in the past 12 m 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, [address]nd [place] [address] 07/14/2025 10:50 AM EST Office Visit Medical Office Building Urology [address], [address] [place] [address] Zoie Restrepo, DOG HANDLER [address] [facility] [address] [place] [address] 10/03/2025 11:40 AM EST Office Visit [facility] [address], [address]nd [place] [address] Maria Guadalupe Madrigal, DOG HANDLER [address] [place] [address] Health Maintenance Due Date Last Done Comments [...] - Risk 60-74 years 1-dose series) 2018 [id number] Vaccine (2 - Ivonne risk series) 01/10/2021 [...] on patient's age to complete this topic Medical Devices Implanted Type Area Medical Imaging Tech Device Identifier Shelf Expiration Date Model / Serial / Lot Stent Ureteral Double Pigtail Pos 6fr 24cm - Sn/A - [id number] Implanted:Qty: 1 on 04/11/2025 by Yahaira Lselie MD at [facility] Stent Left: Ureter [id number] 10/27/2026 [id number] / N/A / [id number] Stent Ureteral Double Pigtail Pos 5fr 22cm - [id number] Implanted:Qty: 1 on 03/28/2025 by Yahaira Leslie MD at [facility] Left: Ureter [id number] 07/12/2027 [id number] / / [id number] Description:SUB [id number] used Explanted Type Area Medical Imaging Tech Device Identifier Shelf Expiration Date Model / Serial / Lot Stent Ureteral Double Pigtail Pos 6fr 24cm - [id number] Implanted:03/09 by Yahaira Leslie MD (Quantity not on file) Explanted:Qty: 1 on 03/28/2025 at [facility] Left: U[employer]ter [id number] 06/17/2026 [id number] / / [id number] Procedures Procedure Name Priority Date/Time Associated Diagnosis Comments URO CYSTO SUPPLIES Routine 04/20/2025 9: 33 AM EDT Ureteral stone NE CYSTOSCOPY,REMV CALCULUS,SIMPLE Routine 04/20/2025 9:33 AM EDT Ureteral stone FL LESS THAN 1 HOUR (NON-REPORTABLE) Routine 04/11/2025 12:28 PM EDT ROUTINE CULTURE AND GRAM STAIN Routine 04/11/2025 11:29 AM EDT Kidney stone CALCULI (KIDNEY STONE)ANALYSIS (SO) STAT 04/11/2025 11:27 AM EDT Kidney stone PB ANESTHESIA PLACEHOLDER Routine 04/11/2025 10:57 AM EDT NE AN ELECTIVE SUPRAGLOTTIC AIRWAY Routine 04/11/2025 10:57 [...] ANESTHESIA PLACEHOLDER Routine 03/28/2025 11:24 AM EDT NE AN ELECTIVE SUPRAGLOTTIC AIRWAY Routine 03/28/2025 11:24 [...] Recently Relevant to Health Maintenance Results * NE CYSTOSCOPY,REMV CALCULUS,SIMPLE, URO CYSTO SUPPLIES (04/20/2025 9:33 AM EDT) Narrative Yahaira Leslie MD - 04/20/2025 9:33 AM EDT Yahaira Leslie MD 04/20/2025 9:46 AM Cysto with Stent Removal Date/Time: 04/20/2025 9:33 AM Performed by: Yahaira Leslie MD Authorized by: Yahaira Leslie MD Procedure discussed: discussed risks, benefits and alternatives Waterworks Chief Engineer present: yes Timeout: timeout called immediately prior to procedure Prep: patient was prepped and draped in usual sterile fashion Prep type: Betadine Anesthesia: local anesthesia Procedure Details: Cystoscope type: Flexible Cystoscopy route: transurethral Cystoscopy location: duckwater bladder Cystoscopy location: duckwater bladder Irrigation used: saline Position: Supine Abnormal [...] in the patient's chart for the findings. us Yahaira Leslie MD IMG FLUOROSCOPY PROCEDURES F inal Result IMAGING * (ABNORMAL) Routine Culture and Gram Stain (04/11/2025 11:29 AM EDT) Culture Light Growth 04/16/2025 3:48 PM EDT [facility] Culture 1+ Enterococcus faecalis(A) SAMARA 04/16/2025 3:48 PM EDT [facility] Comment: This isolate has been identified using the FDA Approved [employer] [place] System Edited result: Previously reported as Gram positive cocci on 04/12/2025 at 1125 EDT. Culture 1+ Enterococcus raffinosus(A) SAMARA 04/16/2025 3:48 PM EDT [facility] Comment: This isolate has been identified using the FDA Approved [employer] System The organism value for this [...] MICROBIOLOGY - GENERAL O RDERABLES Final Result [facility] [address] [place] [address] * Calculi (Kidney Stone) Analysis (04/11/2025 11:27 AM EDT) Only the most recent of2 resultswithin the time period is included. Calculi Mass 25 mg 04/15/2025 9:29 AM EDT [facility] ([facility]) Calculi Description See Note 04/15/2025 9:29 AM EDT [facility] ([facility]) Calculi Composition See Note 04/15/2025 9:29 AM EDT [facility] ([facility]) Calculus Structure of left ureter / Unknown 04/11/2025 11:27 AM EDT 04/11/2025 1:03 PM EDT Comment:Pre-op diagnosis: Kidney stone [N20.0] Narrative [facility] ([facility]) - 04/15/2025 9:29 AM EDT Specimen consists [...] composition determined by FTIR analysis. Performed By: [facility] [address] [place] [address] [employer] Admin: Douglas Rubin MD, PhD CLIA Number: [id number] us Yahaira Leslie MD LAB REF LAB BLOOD AND FLUID ORD Final Result Performing Organization Address [facility] Co de Phone Number [facility] ([facility]) [address] [place] [address] * NE AN ELECTIVE SUPRAGLOTTIC AIRWAY, PB ANESTHESIA PLACEHOLDER [...] of3 resultswithin the time period is included. Pathologist [facility] Culture No growth at day 1 04/02/2025 1:17 PM EDT [facility] Urine Urine specimen from urinary conduit / Unknown Non-blood Collection / Unknown 04/01/2025 2:51 PM EDT 04/01/2025 4:17 PM EDT us Maria Guadalupe Madrigal APRN LAB MICROBIOLOGY - GENERAL ORDERABLES Final Result Performing Organization Address [facility]/ZIP Co de Phone Number [facility] [address] [place] [address] * (ABNORMAL) CBC and Differential (03/30/2025 2:35 AM EDT) Only the most recent of3 resultswithin the time period is included. Pathologist [facility] WBC Count 5.30 3.70 - 10.30 10*3/uL LAB HEMATOLOGY METHOD 03/30/2025 2:47 AM EDT [facility] RBC Count 4.27 3.90 - 5.20 10*6/uL LAB HEMATOLOGY METHOD 03/30/2025 2:47 AM EDT [facility] HGB 11.0(L) 11.2 - 15.7 g/dL LAB HEMATOLOGY METHOD 03/30/2025 2:47 AM EDT [facility] HCT 35.2 34.0 - 45.0 % LAB HEMATOLOGY METHOD 03/30/2025 2:47 AM EDT [facility] Platelet Count 148(L) 155 - 369 10*3/uL LAB HEMATOLOGY METHOD 03/30/2025 2:47 AM EDT [facility] MCV 82 79 - 98 fL LAB HEMATOLOGY METHOD 03/30/2025 2:47 AM EDT [facility] MCH 25.8(L) 26.0 - 32.0 pg LAB HEMATOLOGY METHOD 03/30/2025 2:47 AM EDT [facility] MCHC 31.3 30.7 - 35.5 g/dL LAB HEMATOLOGY METHOD 03/30/2025 2:47 AM EDT [facility] RDW 15.1(H) 11.5 - 14.5 % LAB HEMATOLOGY METHOD 03/30/2025 2:47 AM EDT [facility] MPV 9.2 8.8 - 12.5 fL LAB HEMATOLOGY METHOD 03/30/2025 2:47 AM EDT [facility] nRBC 0.0 <=0.0 per 100 WBCs LAB HEMATOLOGY METHOD 03/30/2025 2:47 AM EDT [facility] Differential Type Automated LAB HEMATOLOGY METHOD 03/30/2025 2:47 AM EDT [facility] Neutrophils % 66 % LAB HEMATOLOGY METHOD 03/30/2025 2:47 AM EDT [facility] Lymphocytes % 23 % LAB HEMATOLOGY METHOD 03/30/2025 2:47 AM EDT [facility] Monocytes % 6 % LAB HEMATOLOGY METHOD 03/30/2025 2:47 AM EDT [facility] Eosinophils % 3 % LAB HEMATOLOGY METHOD 03/30/2025 2:47 AM EDT [facility] Basophils % 1 % LAB HEMATOLOGY METHOD 03/30/2025 2:47 AM EDT [facility] Immature Granulocytes % 1 % LAB HEMATOLOGY METHOD 03/30/2025 2:47 AM EDT [facility] Neutrophils Absolute 3.54 1.60 - 6.10 10*3/uL LAB HEMATOLOGY METHOD 03/30/2025 2:47 AM EDT [facility] Lymphocytes Absolute 1.22 1.20 - 3.90 10*3/uL LAB HEMATOLOGY METHOD 03/30/2025 2:47 AM EDT [facility] Monocytes Absolute 0.33 0.30 - 0.90 10*3/uL LAB HEMATOLOGY METHOD 03/30/2025 2:47 AM EDT [facility] Eosinophils Absolute 0.14 0.00 - 0.50 10*3/uL LAB HEMATOLOGY METHOD 03/30/2025 2:47 AM EDT [facility] Basophils Absolute 0.03 0.00 - 0.10 10*3/uL LAB HEMATOLOGY METHOD 03/30/2025 2:47 AM EDT [facility] Immature Granulocytes Absolute 0.04 0.00 - 0.06 10*3/uL LAB HEMATOLOGY METHOD 03/30/2025 2:47 AM EDT [facility] Blood Venous blood specimen / Unknown Venipuncture / Unknown 03/30/2025 2:35 AM EDT 03/30/2025 2:42 AM EDT Narrative [facility] - 03/30/2025 2:47 AM EDT Therapeutic decision making should be based on absolute values, rather than percentages. us Luis Alfredo Hodges MD LAB BLOOD ORDERABLES Fi nal Result [facility] [address] [place] [address] * Phosphorus, Plasma (03/30/2025 2:35 AM EDT) Only the most recent of3 resultswithin the time period is included. Phosphorus, Plasma 3.8 2.5 - 4.5 mg/dL 03/30/2025 3:06 AM EDT [facility] Blood Venous blood specimen / Unknown Venipuncture / Unknown 03/30/2025 2:35 AM EDT 03/30/2025 2:42 AM EDT us Luis Alfredo Hodges MD LAB BLOOD ORDERABLES Fi nal Result Performing Organization Address City/[facility] Co de Phone Number [facility] [address] [place] [address] * Magnesium, Plasma (03/30/2025 2:35 AM EDT) Only the most recent of3 resultswithin the time period is included. Magnesium, Plasma 2.0 1.9 - 2.4 mg/dL 03/30/2025 3:06 AM EDT [facility] Blood Venous blood specimen / Unknown Venipuncture / Unknown 03/30/2025 2:35 AM EDT 03/30/2025 2:42 AM EDT Luis Alfredo Hodges MD LAB BLOOD ORDERABLES nal Result Performing Organization Address [facility] de Phone Number [facility] [address] [place] [address] * (ABNORMAL) Basic metabolic panel (03/30/2025 2:35 AM EDT) Only the most recent of2 resultswithin the time period is included. Glucose, Plasma 101(H) 74 - 99 mg/dL 03/30/2025 3:06 AM EDT [facility] BUN, Plasma 6(L) 8 - 23 mg/dL 03/30/2025 3:06 AM EDT [facility] Creatinine, Plasma 0.27(L) 0.60 - 1.10 mg/dL 03/30/2025 3:06 AM EDT [facility] BUN/Creatinine Ratio 22 03/30/2025 3:06 AM EDT [facility] Sodium, Plasma 142 136 - 145 mmol/L 03/30/2025 3:06 AM EDT [facility] Potassium, Plasma 3.1(L) 3.6 - 4.9 mmol/L 03/30/2025 3:06 AM EDT [facility] Chloride, Plasma 110(H) 97 - 107 mmol/L 03/30/2025 3:06 AM EDT [facility] CO2, Plasma 22 22 - 29 mmol/L 03/30/2025 3:06 AM EDT [facility] Anion Gap 10 6 - 16 mmol/L 03/30/2025 3:06 AM EDT [facility] Total Calcium, Plasma 8.3(L) 8.9 - 10.2 mg/dL 03/30/2025 3:06 AM EDT [facility] eGFRcr 120.2 mL/min/1.7 3m*2 03/30/2025 3:06 AM EDT [facility] Comment:Reported eGFRcr in m L/min/1.73m2 is based the CKD-EPI 2020 equation that does not use a race coefficient. Blood Venous blood specimen / Unknown Venipuncture / Unknown 03/30/2025 2:35 AM EDT 03/30/2025 2:42 AM EDT us Luis Alfredo Hodges MD LAB BLOOD ORDERABLES Fi nal Result [facility] [address] [place] [address] * NE AN ELECTIVE SUPRAGLOTTIC AIRWAY, PB ANESTHESIA PLACEHOLDER [...] at day 1 03/29/2025 8:58 AM EDT [facility] Swab (Nares and Anabella Rectal) Non-blood Collection / Unknown 03/28/2025 5:49 AM EDT 03/28/2025 6:10 AM EDT Narrative [facility] - 03/29/2025 8:58 AM EDT This test was developed and its performance characteristics determined by the [facility]. Although the media is FDA-approved, it is not FDA-approved for all specimen types submitted. The FDA has determined that such clearance or approval is not necessary. This test is used for surveillance purposes. It should not be regarded as investigational or for research. The [facility] is certified under the Clinical Laboratory Improvement Amendments of 1988 (CLIA-88) as qualified to perform high complexity clinical laboratory testing. Luis Alfredo Hodges MD LAB MICROBIOLOGY - GENE RAL ORDERABLES Final Result Performing Organization Address City/[facility] Co de Phone Number [facility] [address] [place] [address] * SEND FER MESSAGE (03/28/2025 3:27 AM EDT) Urine Urine specimen obtained by clean catch procedure / Unknown Non-blood Collection / Unknown 03/28/2025 3:27 AM EDT 03/28/2025 3:40 AM EDT Clay Read DO [facility] URINE ORDERABLES Final R esult Performing Organization Address [facility] de Phone Number [facility] [address] [place] [address] * Urine Hunter Panel (03/28/2025 3:27 AM EDT) Extra Sent for Culture 03/28/2025 4:[address] [facility] Urine Urine specimen obtained by clean catch procedure / Unknown Non-blood Collection / Unknown 03/28/2025 3:27 AM EDT 03/28/2025 3:40 AM EDT Clay Read DO [facility] URINE ORDERABLES Final R esult Performing Organization Address [facility] de Phone Number [facility] [address] [place] [address] * Urinalysis Microscopic Examination (03/28/2025 3:27 AM EDT) Urine Urine specimen obtained by clean catch procedure / Unknown Non-blood Collection / Unknown 03/28/2025 3:27 AM EDT 03/28/2025 3:40 AM EDT us Clay Read DO LAB URINE ORDERABLES Final R esult [facility] [address] [place] [address] * (ABNORMAL) Urinalysis with reflex microscopic (Culture NOT Included) (03/28/2025 3:27 AM EDT) Color, Urine Yellow LAB URINALYSIS - AUTOMATED METHOD 03/28/2025 4:12 AM EDT [facility] Clarity, Urine Cloudy LAB URINALYSIS - AUTOMATED METHOD 03/28/2025 4:12 AM EDT [facility] Spec Bagley, Urine 1.025 1.005 - 1.030 LAB URINALYSIS - AUTOMATED METHOD 03/28/2025 4:12 AM EDT [facility] pH, Urine 6.0 5.0 - 8.0 LAB URINALYSIS - AUTOMATED METHOD 03/28/2025 4:12 AM EDT [facility] Protein, Urine 100(A) Negative mg/dL LAB URINALYSIS - AUTOMATED METHOD 03/28/2025 4:12 AM EDT [facility] Glucose, Urine Negative Negative mg/dL LAB URINALYSIS - AUTOMATED METHOD 03/28/2025 4:12 AM EDT [facility] Ketones, Urine Negative Negative mg/dL LAB URINALYSIS - AUTOMATED METHOD 03/28/2025 4:12 AM EDT [facility] Blood, Urine Large(A) Negative LAB URINALYSIS - AUTOMATED METHOD 03/28/2025 4:12 AM EDT [facility] Bilirubin, Urine Negative Negative LAB URINALYSIS - AUTOMATED METHOD 03/28/2025 4:12 AM EDT [facility] Urobilinogen, Urine 0.2 0.2 to 1.0 mg/dL LAB URINALYSIS - AUTOMATED METHOD 03/28/2025 4:12 AM EDT [facility] Leukocytes, Urine Moderate(A) Negative LAB URINALYSIS - AUTOMATED METHOD 03/28/2025 4:12 AM EDT [facility] Nitrite, Urine Positive(A) Negative LAB URINALYSIS - AUTOMATED METHOD 03/28/2025 4:12 AM EDT [facility] RBC, Urine Unable to estimate due to obscuring WBC's (UNEWBC) 0 to 3 /HPF 03/28/2025 4:12 AM EDT [facility] Comment:This result was prev iously suppressed from the chart. WBC, Urine >50(A) 0 to 5 /HPF 03/28/2025 4:12 AM EDT [facility] Comment:This result was prev iously suppressed from the chart. Squamous Epithelial Cells Unable to estimate due to obscuring WBC's (UNEWBC) 0 to 5 /HPF 03/28/2025 4:12 AM EDT [facility] Comment:This result was prev iously suppressed from the chart. Hyaline Casts Unable to estimate due to obscuring WBC's (UNEWBC) 0 to 5 /LPF 03/28/2025 4:12 AM EDT [facility] Comment:This result was prev iously suppressed from the chart. Bacteria, Urine Present Negative 03/28/2025 4:12 AM EDT [facility] Comment:This result was prev iously suppressed from the chart. Urine Urine specimen obtained by clean catch procedure / Unknown Non-blood Collection / Unknown 03/28/2025 3:27 AM EDT 03/28/2025 3:40 AM EDT Narrative [facility] - 03/28/2025 4:12 AM EDT Performed by manual method us Clay Read DO LAB URINE ORDERABLES Final R esult [facility] [address] [place] [id number] * CT Lumbar Spine wo IV Contrast [...] Total DLP (Dose-Length Product): 1311.58 mGy.cm (accession [id number]), 1311.58 mGy.cm (accession [id number]), 327.76 mGy.cm (accession [id number]). Please note: The reported value represents the [...] up to around 4 mm. Procedure Note oCle Carballo MD - 03/28/2025 CLINICAL INDICATION: fx TECHNIQUE: Imaging of the entire cervical, thoracic, and lumbar spine was performed,using spiral technique, without contrast administration. Reformattedimages in the coronal and sagittal planes were generated from the axialdata set to facilitate diagnostic accuracy and/or surgical planning. Total DLP (Dose-Length Product): 1311.58 mGy.cm (accession [id number]),1311.58 mGy.cm (accession [id number]), 327.76 mGy.cm (accession [id number]).Please note: The reported value represents the total [...] Total DLP (Dose-Length Product): 1311.58 mGy.cm (accession [id number]), 1311.58 mGy.cm (accession [id number]), 327.76 mGy.cm (accession [id number]). Please note: The reported value represents the [...] Total DLP (Dose-Length Product): 1311.58 mGy.cm (accession [id number]),1311.58 mGy.cm (accession [id number]), 327.76 mGy.cm (accession [id number]).Please note: The reported value represents the total [...] Total DLP (Dose-Length Product): 1311.58 mGy.cm (accession [id number]), 1311.58 mGy.cm (accession [id number]), 327.76 mGy.cm (accession [id number]). Please note: The reported value represents the [...] Total DLP (Dose-Length Product): 1311.58 mGy.cm (accession [id number]),1311.58 mGy.cm (accession [id number]), 327.76 mGy.cm (accession [id number]).Please note: The reported value represents the total [...] - 4.20 uIU/mL 03/28/2025 7:47 AM EDT [facility] Blood Venous blood specimen / Unknown Venipuncture / Unknown 03/28/2025 1:14 AM EDT 03/28/2025 1:34 AM EDT Luis Alfredo Hodges MD LAB BLOOD ORDERABLES Fi nal Result Performing Organization Address [facility] de Phone Number [facility] [address] [place] [address] * Procalcitonin (03/28/2025 1:14 AM EDT) Procalcitonin, Plasma <0.06 <0.09 ng/mL 03/28/2025 2:14 AM EDT [facility] Blood Venous blood specimen / Unknown Venipuncture / Unknown 03/28/2025 1:14 AM EDT 03/28/2025 1:34 AM EDT Narrative [facility] - 03/28/2025 2:14 AM EDT Procalcitonin [...] predict 28 day mortality risk. Please consult www.esqgaz-nlm-twtiuqdvzj.com for more information. Test performed at [facility]. us Clay Read DO LAB BLOOD ORDERABLES Final R esult Performing Organization Address City/[facility] Co de Phone Number [facility] [address] [place] [address] * (ABNORMAL) Vitamin D 1,25 dihydroxy (03/28/2025 1:14 AM EDT) VITAMIN D, 1, 25-DIHYDROXY 108(H) 19.9 - 79.3 pg/mL 03/31/2025 5:01 AM EDT [facility] Blood Venous blood specimen / Unknown Venipuncture / Unknown 03/28/2025 1:14 AM EDT 03/28/2025 1:34 AM EDT Clay Westubaldo LAB BLOOD ORDERABLES Final R esult Performing Organization Address City/[facility] de Phone Number [facility] [address] [place] [address] * Vitamin D 25 Hydroxy (03/28/2025 1:14 AM EDT) Vitamin D 25 Hydroxy 32.2 20.0 - 80.0 ng/mL 03/28/2025 5:05 AM EDT [facility] Blood Venous blood specimen / Unknown Venipuncture / Unknown 03/28/2025 1:14 AM EDT 03/28/2025 1:34 AM EDT Narrative [facility] - 03/28/2025 5:05 AM EDT Testing performed on [employer], standardized against NIST SRM 2972. When testing [...] Read DO LAB BLOOD ORDERABLES Final R ying Performing Organization Address City/[facility] Co de Phone Number [facility] [address] [place] [address] * C-Reactive protein (03/28/2025 1:14 AM EDT) CRP, Plasma 4.1 <=8.0 mg/L 03/28/2025 2:14 AM EDT [facility] Blood Venous blood specimen / Unknown Venipuncture / Unknown 03/28/2025 1:14 AM EDT 03/28/2025 1:34 AM EDT Narrative [facility] - 03/28/2025 2:14 AM EDT This CRP test is appropriate for assessment of infection, systemic inflammation and/or tissue injury. To assess cardiovascular disease risk order high sensitivity CRP (CRPH). Clay Read DO LAB BLOOD ORDERABLES Final R esult Performing Organization Address [facility] Co de Phone Number [facility] [address] [place] [address] * Free T4, Plasma (03/28/2025 1:14 AM EDT) Free T4, Plasma 1.2 0.8 - 1.7 ng/dL 03/28/2025 8:29 AM EDT [facility] Blood Venous blood specimen / Unknown Venipuncture / Unknown 03/28/2025 1:14 AM EDT 03/28/2025 1:34 AM EDT Luis Alfredo Hodges MD LAB BLOOD ORDERABLES Fi nal Result Performing Organization Address [facility] de Phone Number [facility] [address] [place] [address] * (ABNORMAL) CMP (03/28/2025 1:14 AM EDT) Glucose, Plasma 78 74 - 99 mg/dL 03/28/2025 2:14 AM EDT [facility] BUN, Plasma 18 8 - 23 mg/dL 03/28/2025 2:14 AM EDT [facility] Creatinine, Plasma 0.41(L) 0.60 - 1.10 mg/dL 03/28/2025 2:14 AM EDT [facility] BUN/Creatinine Ratio 44 03/28/2025 2:14 AM EDT [facility] Sodium, Plasma 141 136 - 145 mmol/L 03/28/2025 2:14 AM EDT [facility] Potassium, Plasma 3.9 3.6 - 4.9 mmol/L 03/28/2025 2:14 AM EDT [facility] Chloride, Plasma 107 97 - 107 mmol/L 03/28/2025 2:14 AM EDT [facility] CO2, Plasma 25 22 - 29 mmol/L 03/28/2025 2:14 AM EDT [facility] Anion Gap 9 6 - 16 mmol/L 03/28/2025 2:14 AM EDT [facility] Total Calcium, Plasma 8.2(L) 8.9 - 10.2 mg/dL 03/28/2025 2:14 AM EDT [facility] Total Protein 6.4 6.3 - 7.9 g/dL 03/28/2025 2:14 AM EDT [facility] Albumin, Plasma 3.8 3.5 - 5.2 g/dL 03/28/2025 2:14 AM EDT [facility] AST, Plasma 13 10 - 35 U/L 03/28/2025 2:14 AM EDT [facility] ALT, Plasma 7(L) 10 - 35 U/L 03/28/2025 2:14 AM EDT [facility] Alkaline Phosphatase, Plasma 82 46 - 142 U/L 03/28/2025 2:14 AM EDT [facility] Total Bilirubin, Plasma <0.2(L) 0.2 - 1.1 mg/dL 03/28/2025 2:14 AM EDT [facility] eGFRcr 108.7 mL/min/1.7 3m*2 03/28/2025 2:14 AM EDT [facility] Comment:Reported eGFRcr in m L/min/1.73m2 is based the CKD-EPI 2020 equation that does not use a race coefficient. Blood Venous blood specimen / Unknown Venipuncture / Unknown 03/28/2025 1:14 AM EDT 03/28/2025 1:34 AM EDT Clay Read DO LAB BLOOD ORDERABLES Final R esult [facility] [address] [place] [address] * CT OUTSIDE IMAGES (03/27/2025 5:01 PM EDT) Only the most recent of2 resultswithin the time period is included. Anatomical Region Laterality Modality Computed Tomogra phy 03/27/2025 5:01 PM EDT Chang Burroughs MD IMG CT PROCEDURES Final Result * XR OUTSIDE IMAGES (03/27/2025 2:36 PM EDT) Anatomical Region Laterality Modality Radiographic Ceci ging 03/27/2025 2:36 PM EDT us External Provider IMG XR PROCEDURES Final Result * Hepatitis C Antibody - ED (05/06/2024 1:09 AM EDT) Hepatitis C Antibody Negative Negative 05/06/2024 2:56 AM EDT [facility] Blood Venous blood specimen / Unknown Venipuncture / Unknown 05/06/2024 1:09 AM EDT 05/06/2024 2:06 AM EDT us Sallie Cervantes DO LAB BLOOD ORDERABLES Final Res ult [facility] [address] [place] [address] from Last 3 Months or Most Recently Relevant to Health Maintenance Additional Health Concerns Infection Onset Date Last Indicated 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 Insurance MEDICAID-[place] MEDICARE [facility] [address] [facility] [id number] Advance Directives Documents on File Type Date Recorded 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 No Healthcare Surrogate: Healthcare A Care Teams Stock Car Driver Relationship Specialty Start Date End Date Luis Henderson MD [address] [place] [address] PCP - General Internal Medicine 01/10/22 Luis Henderson MD [address] [place] [address] 09/04/21 Kasi Jacobs MD [address] [place] [address] Consulting Physician Neurology 05/17/21 Maria Guadalupe Madrigal APRN [address] [phone] Nurse Practitioner Urology 12/03/23
--- OUTSIDE RECORDS SUMMARY | 2025-06-14 13:42 | XMS_ITS | Encounter Summary ---
Author Organization [facility] Address [address] [place] [address] Care Team Providers Care Commercial Loan Coordinator Name Role Phone Luis Henderson MD Unavailable [phone] Kasi Jacobs MD Unavailable [phone] Luis Henderson MD Primary Care Provider + [phone] Maria Guadalupe Madrigal APRN Unavailable [phone] Reason for Visit * Reason Comments Med Refill Encounter Details Date Type Department Care Team (Late st Contact Info) Description 01/31/2022 Refill [place] [facility] [address] [place] [address] Dian Tovar [address] [place] [address] Social History Tobacco Use Types [...] Info) Description 07/14/2025 8:45 AM EST Appointment [facility] Ultrasound [address] [place] [address] 07/14/2025 10:50 AM EST Office Visit Medical Office Building Urology [address], [address] [place] [address] Zoie Restrepo, PREPARATION SUPERVISOR FREEZING [address] [facility] [place] [address] 10/03/2025 11:40 AM EST Office Visit [place] [facility] [address] [place] [phone] Maria Guadalupe Madrigal, PREPARATION SUPERVISOR FREEZING [address] [place] [address] documented as of this encounter Visit Diagnoses Not on filedocumented in this encounter Additional Health Concerns Infection Onset Date Last Indicated Resolved Time 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 documented as of this encounter Care Teams Commercial Loan Coordinator Relationship Specialty Start Date End Date Luis Henderson MD [address] [place], [place] [id number] PCP - General Internal Medicine 01/10/22 Luis Henderson MD [address] [place], [place] [id number] 09/04/21 Kasi Jacobs MD [address] [place] [address] Consulting Physician Neurology 05/17/21 Maria Guadalupe Madrigal APRN [address] [place] [address] Nurse Practitioner Urology 12/03/23 documented as of this encounter
--- OUTSIDE RECORDS SUMMARY | 2025-06-14 13:42 | XMS_ITS | Encounter Summary ---
Author Organization [facility] Address [address] [place] [address] Care Team Providers Care Spinning Doffer Name Role Phone Luis Henderson MD Unavailable [phone] Kasi Jacobs MD Unavailable [phone] Luis Henderson MD Primary Care Provider + [phone] Maria Guadalupe Madrigal APRN Unavailable [phone] Encounter Details Date Type Department Care Team [...] were you homeless or living in a chcf (including now)? 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-RECYCLING WORKER) to steady your nerves or to [...] does not drink 04/20/2025 9:13 AM FABIANT Ingris Reddy Q3: How often do you [...] 6 04/20/2025 9:16 AM Ingris Shell * How difficult have these problems made it for you to do your work, take care of things at home, or get along with other people? Answer Date of Assessment Author Not difficult at all 04/20/2025 9:16 AM Ingris Buenrostro * How difficult have these problems made it for you to do your work, take care of things at home, or get along with other people? Answer Date of Assessment Author Not difficult at all 04/20/2025 9:16 AM Ingris Buenrostro documented as of this encounter Plan of Treatment Upcoming Encounters Date Type Department Care Team (Late st Contact Info) Description 07/14/2025 8:45 AM EST Appointment [facility] Ultrasound [address] [place] [address] 07/14/2025 10:50 AM EST Office Visit Medical Office Building Urology [address] [facility], [address] [place] [address] NoZoie andres M, CALL CENTER ASSOCIATE [address] [place] [address] 10/03/2025 11:40 AM EST Office Visit [place] [facility] [address] [place] [address] Maria Guadalupe Madrigal APRN [address] [place] [address] documented as of this encounter Visit [...] documented as of this encounter Care Teams Spinning Doffer Relationship Specialty Start Date End Date Luis Henderson MD [address] [place] [address] PCP - General Internal Medicine 01/10/22 Luis Henderson MD [address] [place], [place] [address] 09/04/21 Kasi Jacobs MD [address] [place] [address] Consulting Physician Neurology 05/17/21 Maria Guadalupe Madrigal APRN [address] [place] [address] Nurse Practitioner Urology 12/03/23 documented as of this encounter
--- OUTSIDE RECORDS SUMMARY | 2025-06-14 13:42 | XMS_ITS | Encounter Summary ---
Author Organization [facility] Address [address] [place] [address] Care Team Providers Care Cage Manager Name Role Phone Luis Henderson MD Unavailable [phone] Kasi Jacobs MD Unavailable [phone] Luis Henderson MD Primary Care Provider + [phone] Maria Guadalupe Madrigal APRN Unavailable [phone] Encounter Details Date Type Department Care Team (Late st Contact Info) Description 06/19/2024 Lab Requisition [facility] [address] [place] [address] Luis Henderson MD [address] [place], [place] [id number] Urinary tract infection, site not specified Social [...] drink first t alli in the morning (EYE-BREEDING TECHNICIAN) to steady your nerves or to [...] Upcoming Encounters Date Type Department Care Team ([facility] st Contact Info) Description 07/14/2025 8:45 AM EST Appointment [facility] Ultrasound [address] [place] [address] 07/14/2025 10:50 AM EST Office Visit Medical Office Building Urology [address], [address] [place] [phone] Zoie Restrepo, SUPERINTENDENT PLANT [address] [facility] [address] [place] [address] 10/03/2025 11:40 AM EST Office Visit [place] [facility] [address] [place] [address] Maria Guadalupe Madrigal, SUPERINTENDENT PLANT [address] [place] [address] documented as of this encounter [...] [facility] [address] [place] [address] * (ABNORMAL) Comprehensive metabolic panel (06/19/2024 4:59 [...] [facility] [address] [place] [address] documented in this encounter Visit Diagnoses Diagnosis [...] documented as of this encounter Care Teams Cage Manager Relationship Specialty Start Date End Date Luis Henderson MD [address] [place] [address] PCP - General Internal Medicine 01/10/22 Luis Henderson MD [address] [place] [address] 09/04/21 Kasi Jacobs MD [address] [place] [address] Consulting Physician Neurology 05/17/21 Maria Guadalupe Madrigal APRN [address] [place] [address] Nurse Practitioner Urology 12/03/23 documented as of this encounter
--- OUTSIDE RECORDS SUMMARY | 2025-06-14 13:42 | XMS_ITS | Encounter Summary ---
Author Organization [facility] Address [address] [place] [address] Care Team Providers Care Ultrasonic Hand Solderer Name Role Phone Luis Henderson MD Unavailable [phone] Kasi Jacobs MD Unavailable [phone] Luis Henderson MD Primary Care Provider + [phone] Maria Guadalupe Madrigal APRN Unavailable [phone] Reason for Visit * Reason Onset Date Comments HCN - Patient Message 04/12/2025 Stent narendra garry Encounter Details Date Type Department Care Team (Late st Contact Info) Description 04/12/2025 Telephone [place] [facility] [address] [place] [address] Yahaira Leslie MD [address] [place] [address] HCN - Patient Message (Stent [...] any time in the past 12 m [facility], were you homeless or living in a nursing home (including now)? No 03/28/2025 CAGE ASSESSMENT [...] first t alli in the morning (EYE-JUNIOR ADMINISTRATIVE ASSISTANT) to steady your nerves or to get rid of a hangover? 0 03/16/2023 CAGE Questionnaire Score 0 023 Utilities Answer Date Recorded In the past 12 months has th [employer], gas, oil, or water company threatened [...] of Assessment Author 0 04/20/2025 9:13 AM FABIANT Ingris Reddy * Question Answer Date of Assessment Author Q1: How often do you have a drink containing alcohol? Never 04/20/2025 9:13 AM Ingris Shell Q2: How many drinks containing alcohol do you have on a typical day when you are drinking? Patient does not drink 04/20/2025 9:13 AM FABIANT Ingris Reddy Q3: How often do you have six or more drinks on one occasion? Never 04/20/2025 9:13 AM Ingris Shell * Over the past 2 weeks, how often have you been bothered by any of the following problems? Question Answer Date of Assessment Author Little interest or pleasure in doing things Not at all 04/20/2025 9:16 AM Latasha Shell Feeling down, depressed, or hopeless Nearly every day 04/20/2025 9:16 AM Ingris Shell Patient Health Questionnaire-2 Score 3 04/20/2025 9:16 AM Andie Shell * Question Answer Date of Assessment Author [...] Ingris Buenrostro documented as of this encounter Miscellaneous Notes * Telephone Encounter - Yahaira Leslie MD - 04/13/2025 3:28 PM EDT Friday morning around 9 am? * Telephone Encounter - Yahaira Leslie MD - 04/13/2025 10:48 AM EDT Can we please schedule her for stent removal with me next week? * Telephone Encounter - Odalys Weeks - 04/12/2025 2:06 PM EDT Patient Phone Message Reason for Call: [facility] requesting a return call to schedule post op follow up for next week on 04/20 but asking for time Best contact number and optimal time of day to reach caller: [phone] Note: Please do not reply to this message. Follow-up communication and further actions as a result of this message need to be communicated with the patient directly, if the patient is not active onMyChart. If the patient is active on MyChart, they will receive notification of the communication/outcome via [employer]. documented in this encounter Plan of Treatment Upcoming Encounters Date Type Department Care Team (Late st Contact Info) Description 07/14/2025 8:45 AM EST Appointment [facility] Ultrasound [address]nd [place] [address] 07/14/2025 10:50 AM EST Office Visit Medical Office Building Urology [address] [facility], [address] [place] [address] Zoie Restrepo, PROP SAWYER [address] [place] [address] 10/03/2025 11:40 AM EST Office Visit [place] [facility] [address] [place] [address] Maria Guadalupe Madrigal APRN [address] [place] [address] documented as of this encounter [...] documented as of this encounter Care Teams Ultrasonic Hand Solderer Relationship Specialty Start Date End Date Luis Henderson MD [address] [place] [address] PCP - General Internal Medicine 01/10/22 Luis Henderson MD [address] [place] [address] 09/04/21 Kasi Jacobs MD [address] [place] [address] Consulting Physician Neurology 05/17/21 Maria Guadalupe Madrigal APRN [address] [place] [address] Nurse Practitioner Urology 12/03/23 documented as of this encounter
--- OUTSIDE RECORDS SUMMARY | 2025-06-14 13:42 | XMS_ITS | Encounter Summary ---
Author Organization [facility] Address [address] [place] [address] Care Team Providers Care Scouring Pads Supervisor Name Role Phone Luis Henderson MD Unavailable [phone] Kasi Jacobs MD Unavailable [phone] Luis Henderson MD Primary Care Provider + [phone] Maria Guadalupe Madrigal HASH SLINGER Unavailable [phone] Encounter Details Date Type Department Care Team (Late st Contact Info) Description 04/04/2025 Results Follow-Up [place] [facility] [address] [place] [address] Maria Guadlaupe Madrgial, HASH SLINGER [address] [place] [address] Social History Tobacco Use Types [...] in the past [address] [facility], were you homeless or [...] drink first t alli in the morning (EYE-ECHOCARDIOGRAPH TECHNICIAN) to steady your nerves or to get rid of a hangover? 0 03/16/2023 CAGE Questionnaire Score 0 023 Utilities Answer Date Recorded In the past 12 months has th [employer], gas, oil, or water company threatened to [...] drink containing alcohol? Never 04/20/2025 9:13 AM FABIANT Ingris Reddy Q2: How many drinks containing [...] things Not at all 04/20/2025 9:16 AM FABIANT Latasha Reddy Feeling down, depressed, or hopeless Nearly every day 04/20/2025 9:16 AM EDT Ingris Reddy Patient Health Questionnaire-2 Score 3 04/20/2025 9:16 AM EDT Andie Reddy * Question Answer Date of Assessment Author Trouble falling or staying asleep, or sleeping too much Not at all 04/20/2025 9:16 AM Ingris Shell Feeling tired or having erica le energy Several days 04/20/2025 9:16 AM FABIANT Ingris Reddy Poor appetite or overeating Several [...] usual. Not at all 04/20/2025 9:16 AM Ingrsi Shell Thoughts that you would be better off or hurting yourself in some way Not at all 04/20/2025 9:16 AM Ingris Shell Patient Health Questionnaire -9 Score 6 04/20/2025 9:16 AM FABIANT Ingris Reddy * Calculated C-SSRS Risk Score (Lifetime/Recent) Answer Date of Assessment Author No Risk Indicated 04/11/2025 8:15 AM FABIANT Darleen Crenshaw, HUBERT * How difficult have these problems made it for you to do your work, take care of things at home, or get along with other people? Answer Date of Assessment Author Not difficult at all 04/20/2025 9:16 AM FABIANT Ingris Porter * How difficult have these problems made it for you to do your work, take care of things at home, or get along with other people? Answer Date of Assessment Author Not difficult at all 04/20/2025 9:16 AM EDT Stur gis, Ingris L * Question Answer Date of Assessment Author 1. Wish to be (Past 1 Month) No 025 8:15 AM EDT Darleen Crenshaw, HUBERT 2. Non-Specific Active Suici abeba Thoughts (Past 1 Month) No 04/11/2025 8:15 AM EDT Breanna Crenshaw, HUBERT 6. Suicidal Behavior (Lifetime) No 8:15 AM EDT Darleen Crenshaw, HUBERT documented as of this encounter Plan of Treatment Upcoming Encounters Date Type Department Care Team (Late st Contact Info) Description 07/14/2025 8:45 AM EST Appointment [facility] Ultrasound [address] [place] [address] 07/14/2025 10:50 AM EST Office Visit Medical Office Building Urology [address] [facility] [address], [address] [place] [address] Zoie Restrepo M, HASH SLINGER [address] [place] [address] 10/03/2025 11:40 AM EST Office Visit [place] [facility] [address] [place] [address] Maria Guadalupe Madrigal, HASH SLINGER [address] [place] [address] documented as of this encounter [...] documented as of this encounter Care Teams Scouring Pads Supervisor Relationship Specialty Start Date End Date Luis Henderson MD [address] [place] [address] PCP - General Internal Medicine 01/10/22 Luis Henderson MD [address] [place] [address] 09/04/21 Kasi Jacobs MD [address] [place] [address] Consulting Physician Neurology 05/17/21 Maria Guadalupe Madrigal APRN [address] [place] [address] Nurse Practitioner Urology 12/03/23 documented as of this encounter
--- OUTSIDE RECORDS SUMMARY | 2025-06-14 13:42 | XMS_ITS | Encounter Summary ---
Author Organization [facility] Address [address] [place] [address] Care Team Providers Care Jigger Artisan Name Role Phone Luis Henderson MD Unavailable [phone] Kasi Jacobs MD Unavailable [phone] Luis Henderson MD Primary Care Provider + [phone] Maria Guadalupe Madrigal APRN Unavailable [phone] Encounter Details Date Type Department Care Team (Late st Contact Info) Description 04/22/2025 Telephone [facility] [address], [address] [place] [address] Gerardo Gerber MD [address] [place] [address] Social History Tobacco Use Types [...] any time in the past 12 m [facility], were you homeless or living in a longterm (including now)? 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-RAG GRADER) to steady your nerves or to get rid of a hangover? 0 03/16/2023 CAGE Questionnaire Score 0 023 Utilities Answer Date Recorded In the past 12 months has th [employer], gas, oil, or water company threatened to [...] encounter Miscellaneous Notes * Telephone Encounter - Yohana Herrera - 05/06/2025 9:50 AM EDT Patient Phone Message Reason for Call: 3rd call Pt is calling again regarding matter below and would like a call jayleen. Please advise. Best contact number and optimal time of day to reach caller: [phone] Note: Please do not reply to this message. Follow-up communication and further actions as a result of this message need to be communicated with the patient directly, if the patient is not active onMyChart. If the patient is active on MyChart, they will receive notification of the communication/outcome via [email or web address]. * Telephone Encounter - Terri Hernandez - 05/04/2025 1:26 PM EDT Patient Phone Message Reason for Call: Patient's facility calling to r/s Botox Best contact number and optimal time of day to reach caller: [phone] ext [phone] Note: Please do not reply to this message. Follow-up communication and further actions as a result of this message need to be communicated with the patient directly, if the patient is not active onMyChart. If the patient is active on MyChart, they will receive notification of the communication/outcome via MyChart. * Telephone Encounter - Yohana Herrera - 05/02/2025 12:46 PM EDT Patient Phone Message Reason for Call: [facility] calling [facility] matter [facility] and needing new date for Botox, please advise. Best contact number and optimal time of day to reach caller: [phone] ext [phone] Note: Please do not reply to this [...] Patient Phone Message Reason for Call: Patient's assisted calling to r/s missed Botox Best contact number and optimal time of day to reach caller: [facility] appointment scheduler [phone] ext [phone] Note: Please do not reply [...] Description 07/14/2025 8:45 AM EST Appointment [facility] Ultrasound [address] [place] [id number] 07/14/2025 10:50 AM EST Office Visit Medical Office Building Urology [address] [facility], [address] [place] [address] Kaye Zoie Jovita, FREELANCE WEB DESIGNER [address] [place] [address] 10/03/2025 11:40 AM EST [facility] [address] [place] [address] Maria Guadalupe Madrigal, FREELANCE WEB DESIGNER [address] [place] [address] documented as of this encounter [...] documented as of this encounter Care Teams Jigger Artisan Relationship Specialty Start Date End Date Luis Henderson MD [address] [place] [address] PCP - General Internal Medicine 01/10/22 Luis Henderson MD [address] [place] [address] 09/04/21 Kasi Jacobs MD [address] [place] [address] Consulting Physician Neurology 05/17/21 Maria Guadalupe Madrigal APRN [address] [address] Nurse Practitioner Urology 12/03/23 documented as of this encounter
--- OUTSIDE RECORDS SUMMARY | 2025-06-14 13:42 | XMS_ITS | Encounter Summary ---
Author Organization [facility] Address [address] [place] [address] Care Team Providers Care Community Development Worker Name Role Phone Luis Henderson MD Unavailable [phone] Kasi Jacobs MD Unavailable [phone] Luis Henderson MD Primary Care Provider + [phone] Maria Guadalupe Madrigal APRN Unavailable [phone] Encounter Details Date Type Department Care Team (Late st Contact Info) Description 05/17/2025 Telephone [place] [facility] [address] [place] [address] Gerardo Gerber MD [address] [place] [address] Social History Tobacco Use Types [...] any time in the past 12 m [facility], were you homeless or living in a [...] drink first t alli in the morning (EYE-BUTTON TACKER) to steady your nerves or to get rid of a hangover? 0 03/16/2023 CAGE Questionnaire Score 0 023 Utilities Answer Date Recorded In the past 12 months has th e [employer], gas, oil, or water company threatened to [...] encounter Miscellaneous Notes * Telephone Encounter - Jalen Simon - 05/17/2025 10:49 AM EDT Patient Phone Message Reason for Call: Patient calling to schedule botox appt Best contact number and optimal time of day to reach caller: [phone] Note: Please do not reply to this [...] EST Appointment [facility] Ultrasound [address] [place] [address] 07/14/2025 10:50 AM EST Office Visit Medical Office Building Urology [address] [facility], [address] [place] [address] Zoie Restrepo, SALON ASSISTANT [address] [place] [address] 10/03/2025 11:40 AM EST Office Visit [facility] Urology [address] [place] [address] Maria Guadalupe Madrigal APRN [address] [place] [address] documented as of this encounter [...] documented as of this encounter Care Teams Community Development Worker Relationship Specialty Start Date End Date Luis Henderson MD [address] [place], [place] [address] PCP - General Internal Medicine 01/10/22 Luis Henderson MD [address] [place], [place] [address] 09/04/21 Kasi Jacobs MD [address] [place] [address] Consulting Physician Neurology 05/17/21 Maria Guadalupe Madrigal APRN [address] [place] [address] Nurse Practitioner Urology 12/03/23 documented as of this encounter
--- OUTSIDE RECORDS SUMMARY | 2025-06-14 13:42 | XMS_ITS | Encounter Summary ---
Author Organization [facility] Address [address] [place] [address] Care Team Providers Care Senior Producer Name Role Phone Luis Henderson MD Primary Care Provider + [phone] Pcp, No Primary Care Provider Unavailabl e Luis Henderson MD Unavailable [phone] Kasi Jacobs MD Unavailable [phone] Luis Henderson MD Primary Care Provider + [phone] Maria Guadalupe Madrigal SECTION LEADER Unavailable [phone] Reason for Visit * Reason Onset Date Comments HCN - Patient Message 03/21/2021 Patient re quests US results Encounter Details Date Type Department Care Team (Late st Contact Info) Description 03/21/2021 Telephone [facility] [address] [place] [id number] Maria Guadalupe Madrigal, SECTION LEADER [address] [place] [address] HCN - Patient Message (Patient [...] calling back about ultrasound results performed at [facility] Best contact number and optimal time of day to reach caller: [phone] Note: Please do not reply to this message. Follow-up communication and further actions as a result of this message need to be communicated with the patient directly, if the patient is not active onMyChart. If the patient is active on MyChart, they will receive notification of the communication/outcome via WiFast. * Telephone Encounter - Saniya Michel - 03/27/2021 12:51 PM EDT Patient Phone Message Reason for Call: Patient requesting US results Best contact number and optimal time of day to reach caller: [phone] Or [phone] Note: Please do not reply to this [...] Description 07/14/2025 8:45 AM EST Appointment [facility] Ultrasound [address] [place] [id number] 07/14/2025 10:50 AM EST Office Visit Medical Office Building Urology [address] [facility], [address] [place] [address] Zoie Restrepo, SECTION LEADER [address] [place] [address] 10/03/2025 11:40 AM EST Office Visit [facility] [address] [place] [address] Maria Guadalupe Madrigal, SECTION LEADER [address] [place] [address] documented as of this encounter Visit Diagnoses Not on filedocumented in this encounter Additional Health Concerns Infection Onset Date Last Indicated Resolved Time 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 documented as of this encounter Care Teams Senior Producer Relationship Specialty Start Date End Date Luis Henderson MD [address] [facility] [address] [place] [address] PCP - General 01/19/21 09/03/21 Pcp, [place] [address] [place] [address] PCP - General Family Medicine 09/04/21 01/09/22 Luis Henderson MD [address] [place] [address] PCP - General Internal Medicine 01/10/22 Luis Henderson MD [address] [place] [address] 09/04/21 Kasi Jacobs MD [address] [place] [address] Consulting Physician Neurology 05/17/21 Maria Guadalupe Madrigal APRN [address] [place] [address] Nurse Practitioner Urology 12/03/23 documented as of this encounter
== END 2025-06-14 23:59 | disposition home or self-care (01) ==
LOC: RAD 13:40
PROVIDERS: PCP Pediatrics; Visit Provider Physician Assistant Surgical
DX: S92.311D Displaced fracture of first metatarsal bone, right foot, subsequent encounter for fracture with routine healing (principal); S92.321D Displaced fracture of second metatarsal bone, right foot, subsequent encounter for fracture with routine healing; S92.331D Displaced fracture of third metatarsal bone, right foot, subsequent encounter for fracture with routine healing; X58.XXXD Exposure to other specified factors, subsequent encounter
CPT/HCPCS: 73630

== ENCOUNTER 2025-08-02 12:48 | Day surgery (SDC) | payer MEDICARE, MEDICAID, SELFPAY ==
[2025-08-02 13:00] VITALS: BP 117/76; PULSE 86; RESP 16; O2SAT 96; BMI 23.3
[2025-08-02 13:11] VITALS: BP 117/76; PULSE 86; RESP 18; O2SAT 96
[2025-08-02] MEDS: LIDOCAINE 1% 5ML PF VIAL 5 ML (13:11)
[2025-08-02] MEDS: DEXAMETHASONE 10MG/ML 1ML VIAL 10 MG (13:11)
--- NOTE | 2025-08-02 13:15 | P.PCN_ITS ---
Procedure Date: 08/02/25 Time: 13:00 Anesthesiologist:: Cole Mcdonald CRNA Complications:: None Pre-procedure Diagnosis:: Bilateral sacroiliitis Post-procedure Diagnosis:: Same Indications for Procedure:: Patient is a very pleasant six 5-year-old female who comes our clinic today for bilateral sacroiliac joint injection of cortisone local anesthetic. Patient describes low lumbar back pain as constant, dull, aching. Patient is confined to a wheelchair. She does not bear weight. However, she complains of lumbar back pain off the midline bilaterally while sitting. Procedure Details:: Procedure: Bilateral sacroiliac joint injections under fluoroscopy Informed consent was obtained and the risks and benefits of the procedure were explained to the patient.~ The patient was taken to the procedure room and noninvasive monitors were placed including a noninvasive blood pressure cuff and pulse oximeter.~ The patient was placed prone on the procedure table. Both hips were cleansed using Betadine as a cleansing solution. C-arm fluoroscopy was used to view the right sacroiliac joint.~ The skin and subcutaneous tissues were anesthetized using lidocaine 1.5% and a 25-gauge needle.~ After this, a 22-gauge spinal needle was inserted under fluoroscopic guidance into the inferior aspect of the right sacroiliac joint.~ Omnipaque dye was injected and good spread was seen throughout the joint.~ After this, approximately 5 mL of bupivacaine, 0.25% and dexamethasone 5 mg was incrementally injected into the right sacroiliac joint. We then moved to the left sacroiliac joint.~ The skin and subcutaneous tissues were anesthetized using lidocaine 1.5% and a 25-gauge needle.~ After this, a 22- gauge spinal needle was inserted under fluoroscopic guidance into the inferior aspect of the left sacroiliac joint.~ Omnipaque dye was injected and good spread was seen throughout the joint. After this, approximately 5 mL of bupivacaine, 0.25% and dexamethasone 5 mg was incrementally injected into the left sacroiliac joint.~ The patient tolerated the procedure well with no complications. The patient was observed in the Pain Clinic and then was discharged home neurologically intact. Plan and Disposition:: Patient was discharged without incident.
[2025-08-02 13:18] VITALS: BP 117/76; PULSE 86; RESP 18; O2SAT 96
[2025-08-02 13:20] VITALS: BP 148/84; PULSE 102; RESP 18; O2SAT 95
== END 2025-08-02 13:20 | disposition home or self-care (01) ==
PROVIDERS: Visit Provider Nurse Anesthetist, Certified Registered
DX: M46.1 Sacroiliitis, not elsewhere classified (principal); F41.1 Generalized anxiety disorder; K21.9 Gastro-esophageal reflux disease without esophagitis; I10 Essential (primary) hypertension; E78.5 Hyperlipidemia, unspecified; M81.0 Age-related osteoporosis without current pathological fracture; Z98.51 Tubal ligation status; Z88.8 Allergy status to other drugs, medicaments and biological substances; Z88.2 Allergy status to sulfonamides; Z88.5 Allergy status to narcotic agent; Z79.899 Other long term (current) drug therapy; Z79.890 Hormone replacement therapy; F32.A Depression, unspecified; F41.9 Anxiety disorder, unspecified
CPT/HCPCS: G0260; J1100; J2003